=== PATIENT | female | born 1945 | race Caucasian/White ===

== ENCOUNTER 2022-08-01 19:59 | Outpatient (CLI) | payer OTHER, SELFPAY | END 2022-08-01 20:00 | disposition home or self-care (01) | LOC: AMB 08-06 11:24 | PROVIDERS: Visit Provider Family Medicine | DX: R55 Syncope and collapse (principal); R42 Dizziness and giddiness | CPT/HCPCS: A0425; A0427 ==

== ENCOUNTER 2022-08-28 17:22 | Emergency (ER) | payer OTHER, SELFPAY ==
[2022-08-28 17:31] VITALS: BP 180/88; PULSE 60; RESP 18; TEMP 36.4; O2SAT 97; BMI 31.4
--- NOTE | 2022-08-29 14:40 | ED.NURSE ---
chart was accessed due to royce wanting to know if she should be on an antibiotic. antibiotic ointment was all that dr ghosh had ordered. she will watch for signs of infection.
--- NOTE | 2022-08-30 17:12 | ED_ITS ---
HPI - General Adult General Chief complaint: Laceration/Wound Stated complaint: cut left pinky finger Time Seen by Provider: 08/28/22 18:23 History of Present Illness HPI narrative: Patient lacerated 5th left digit with a refrigeration installer at work. Is on coumadin. 77-year-old woman presenting to the emergency department after lacerating her left pinky on a refrigeration installer at work. She could not get the bleeding to stop though it has been controlled. Wanting to go back to work but family is persuaded her to be evaluated. She is not complaining of any pain. Is anticoagulated with Coumadin for paroxysmal atrial fibrillation. Related Data Home Medications Medication Instructions Recorded Confirmed atorvastatin 10 mg tablet 10 mg PO DAILY 08/01/22 08/01/22 furosemide 20 mg tablet 20 mg PO DAILY 08/01/22 08/01/22 gabapentin 100 mg capsule 100 mg PO TID PRN 08/01/22 08/02/22 lisinopril 40 mg tablet 40 mg PO DAILY 08/01/22 08/01/22 warfarin 5 mg tablet 5 mg PO DAILY 08/01/22 08/01/22 Previous Rx's Medication Instructions Recorded carvedilol 6.25 mg tablet 6.25 mg PO BID #15 tabs 08/02/22 cephalexin 500 mg capsule 500 mg PO BID 3 days #6 caps 08/02/22 cephalexin 500 mg capsule 500 mg PO TID #15 caps 08/30/22 Allergies Allergy/AdvReac Type Severity Reaction Status Date / Time codeine Allergy Verified 08/01/22 22:20 Review of Systems Status of ROS: Reports: 6 or more systems reviewed and unremarkable except as noted in History and below [facility] Medical History Lumbar radiculopathy ?M54.16 - Radiculopathy, lumbar region (ICD-10) Migraine ?G43.909 - Migraine, unspecified, not intractable, without status migrainosus (ICD-10) Paroxysmal atrial fibrillation ?I48.0 - Paroxysmal atrial fibrillation (ICD-10) Hypertension ?I10 - Essential (primary) hypertension (ICD-10) Chronic kidney disease, stage 3 ?N18.30 - Chronic kidney disease, stage 3 unspecified (ICD-10) Heart failure ?I50.9 - Heart failure, unspecified (ICD-10) Altered mental status ?R41.82 - Altered mental status, unspecified (ICD-10) Surgical History History of appendectomy ?Z90.49 - Acquired absence of other specified parts of digestive tract (ICD- 10) History of hysterectomy ?Z90.710 - Acquired absence of both cervix and uterus (ICD-10) History of tonsillectomy ?Z90.89 - Acquired absence of other organs (ICD-10) Family History Mother Diabetes Cardiovascular disease Brother Dementia Father Abdominal aortic aneurysm Social History Narrative: Patient lives at the [facility] in [place]. She is in an independent apartment. Her lives there and is in assisted living due to a remote history of stroke. She reports her independent living has been going well for her. She does not smoke. She does not drink alcohol. She does not use recreational drugs. She does tell me that she rubs CBD oil on her feet. Her son Modesto and her daughter have your are healthcare power of unhairing machine operator. Her code status is DNR. She goes to [facility] in [place] for primary care. 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 Smoking Status: Never smoker Do you use any of these nicotine containing products: None Second hand tobacco smoke exposure: No How often do you have a drink containing alcohol: never How often do you have six or more drinks on one occasion: Never AUDIT-C Alcohol total score: 0 Non-prescribed substance use: denies use service: No Exam Narrative: Exam Narrative: Is calm. Making jokes. Removing bloody towel from the left 5th finger I see a degloving essentially of the ulnar side skin of the finger nearly the entirety of the finger beginning at the ulnar nail edge. The skin is folded back up proximally. Attached proximally. It is through the dermis exposing the subcutaneous tissues but not any joint capsules or tendons. She has full strength and movement of her finger. Const: Documenting provider has reviewed patient's vital signs: yes Course Vital Signs Vital signs: Initial Vital Signs Temperature 97.6 F 08/28/22 17:31 Temperature Source Temporal Artery Scan 08/28/22 17:31 Pulse Rate 60 08/28/22 17:31 Pulse Rhythm Regular 08/28/22 17:31 Respiratory Rate 18 08/28/22 17:31 Blood Pressure 180/88 H 08/28/22 17:31 Blood Pressure Mean 118 H 08/28/22 17:31 Pulse Oximetry 97 08/28/22 17:31 Oxygen Delivery Method Room Air 08/28/22 17:31 Vital Signs Temperature 97.6 F 08/28/22 17:31 Pulse Rate 60 08/28/22 17:31 Respiratory Rate 18 08/28/22 17:31 Blood Pressure 180/88 H 08/28/22 17:31 Pulse Oximetry 97 08/28/22 17:31 Oxygen Delivery Method Room Air 08/28/22 17:31 Temperature 97.6 F 08/28/22 17:31 Pulse Rate 60 08/28/22 17:31 Respiratory Rate 18 08/28/22 17:31 Blood Pressure 180/88 H 08/28/22 17:31 Pulse Oximetry 97 08/28/22 17:31 Oxygen Delivery Method Room Air 08/28/22 17:31 Medical Decision Making MDM Narrative Medical decision making narrative: Injected with lidocaine in a digital block. Excellent anesthesia achieved. Cleansed with Hibiclens and sterile water. There is some pallor to the skin flap. Very well perfused though is the finger. Had to place a tourniquet for field control. Tacked with 6-0 Ethilon interrupted sutures. I would estimate the tourniquet was up for about 20 minutes. Oozing a little bit distally. Placed antibiotic ointment Telfa and Suleiman gauze. Placed in a splint as well. I am concerned about viability of this long flap of skin. Will need close follow-up with [facility]. Hopefully not plastics involvement. Will also initiate prophylactic antibiotic. See patient discharge plan. Discharge Plan Discharge Clinical Impression: Finger laceration Patient Disposition: Home, Self-Care Condition: Improved Additional Instructions: Ibuprofen, acetaminophen, elevation for comfort. I would anticipate this sutures coming out between 8 in 10 days. I would like you to apply antibiotic ointment for 5 - 6 days and then change to a dry dressing. It is okay to get your finger wet but I would avoid soaking while the sutures are in. Please call on Ronnie morning to the wound clinic at [phone]. I would like them to follow this. You can change the dressing late in the day tomorrow. Watch for spreading redness after 2 days, increasing heat, swelling, marked increase in pain, purulent drainage. Wear the splint at least over this next week for protection. Five days of cephalexin Prescriptions: New cephalexin 500 mg capsule 500 mg PO TID Qty: 15 0RF No Action atorvastatin 10 mg tablet 10 mg PO DAILY warfarin 5 mg tablet 5 mg PO DAILY furosemide 20 mg tablet 20 mg PO DAILY lisinopril 40 mg tablet 40 mg PO DAILY gabapentin 100 mg capsule 100 mg PO TID PRN cephalexin 500 mg Capsule 500 mg PO BID 3 Days Qty: 6 0RF carvedilol 6.25 mg Tablet 6.25 mg PO BID Qty: 15 0RF Follow Up/Referrals: Provider,Not a Local [Primary Care Provider] - Stand Alone Forms: [facility] Info Instructions
== END 2022-08-28 20:10 | disposition home or self-care (01) ==
PROVIDERS: Emergency Provider Family Medicine
DX: S61.217A Laceration without foreign body of left little finger without damage to nail, initial encounter (principal); W29.0XXA Contact with powered kitchen appliance, initial encounter
CPT/HCPCS: 12001; 99283; 99284

== ENCOUNTER 2022-09-04 07:53 | Outpatient (CLI) | payer OTHER, SELFPAY | END 2022-09-04 07:54 | disposition home or self-care (01) | PROVIDERS: Visit Provider Nurse Practitioner Family | DX: S61.216D Laceration without foreign body of right little finger without damage to nail, subsequent encounter (principal); Z79.01 Long term (current) use of anticoagulants | CPT/HCPCS: 99213; 99214 ==

== ENCOUNTER 2022-09-11 08:20 | Outpatient (CLI) | payer OTHER, SELFPAY | END 2022-09-11 08:21 | disposition home or self-care (01) | PROVIDERS: Visit Provider Nurse Practitioner Family | DX: S61.216D Laceration without foreign body of right little finger without damage to nail, subsequent encounter (principal); Z79.01 Long term (current) use of anticoagulants | CPT/HCPCS: 99212; 99214 ==

== ENCOUNTER 2022-09-18 10:08 | Outpatient (CLI) | payer OTHER, SELFPAY | END 2022-09-18 10:09 | disposition home or self-care (01) | LOC: WOUND 10:08 | PROVIDERS: Visit Provider Nurse Practitioner Family | DX: S61.217A Laceration without foreign body of left little finger without damage to nail, initial encounter (principal) | CPT/HCPCS: 97597 ==

== ENCOUNTER 2022-09-25 14:06 | Outpatient (CLI) | payer OTHER, SELFPAY | END 2022-09-25 14:07 | disposition home or self-care (01) | LOC: WOUND 14:07 | PROVIDERS: Visit Provider Nurse Practitioner Family | DX: S61.217A Laceration without foreign body of left little finger without damage to nail, initial encounter (principal); Z79.01 Long term (current) use of anticoagulants; W29.0XXA Contact with powered kitchen appliance, initial encounter | CPT/HCPCS: 99212 ==

== ENCOUNTER 2022-10-02 08:11 | Outpatient (CLI) | payer OTHER, SELFPAY | END 2022-10-02 08:12 | disposition home or self-care (01) | LOC: WOUND 08:11 | PROVIDERS: Visit Provider Nurse Practitioner Family | DX: S61.217A Laceration without foreign body of left little finger without damage to nail, initial encounter (principal); Z79.01 Long term (current) use of anticoagulants | CPT/HCPCS: 99212 ==

== ENCOUNTER 2023-10-23 01:26 | Emergency (ER) | payer OTHER, SELFPAY ==
[2023-10-23 01:31] VITALS: BP 180/91; PULSE 54; RESP 16; TEMP 36.2; O2SAT 97; BMI 32.8
--- NOTE | 2023-10-23 01:35 | ED_ITS ---
HPI - General Adult General Date Seen: 10/23/23 Chief complaint: Laceration/Wound Stated complaint: Lac R knuckle Time Seen by Provider: 10/23/23 01:35 History of Present Illness HPI narrative: 78-year-old female with history of paroxysmal AFib on warfarin, hypertension who presents to the ER today with a work-related laceration affecting the radial side of the dorsum of her right hand index finger metacarpal phalangeal joint. 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 She suffered a oval shaped laceration that almost completely avulse a 1 x 1.5 cm oval shaped flap of skin off the top of her knuckle. She initially tried to manage the wound herself by applying pressure and then Band-Aids. However despite her efforts she had ongoing oozing from the wound and was experience a lot of throbbing pain so was forced to present here to the ER. She is on warfarin for stroke prophylaxis with AFib. Recent INR has been therapeutic at 2.3. Now that she is here in the ER the bleeding has finally slowed and stopped. She is not having any trouble flexing and extending her finger including the MCP joint. No numbness in her finger. No other injuries. She is up-to-date on tetanus. She is not diabetic or immunosuppressed. Related Data Home Medications ?Medication ?Instructions ?Recorded ?Confirmed atorvastatin 10 mg tablet 10 mg PO DAILY 08/01/22 08/01/22 furosemide 20 mg tablet 20 mg PO DAILY 08/01/22 08/01/22 gabapentin 100 mg capsule 100 mg PO TID PRN 08/01/22 08/02/22 lisinopril 40 mg tablet 40 mg PO DAILY 08/01/22 08/01/22 warfarin 5 mg tablet 5 mg PO DAILY 08/01/22 08/01/22 Previous Rx's ?Medication ?Instructions ?Recorded carvedilol 6.25 mg tablet 6.25 mg PO BID #15 tabs 08/02/22 cephalexin 500 mg capsule 500 mg PO BID 3 days #6 caps 08/02/22 cephalexin 500 mg capsule 500 mg PO TID #15 caps 08/30/22 Allergies Allergy/AdvReac Type Severity Reaction Status Date / Time codeine Allergy Verified 08/01/22 22:20 [facility] Medical History Lumbar radiculopathy ?M54.16 - Radiculopathy, lumbar region (ICD-10) Migraine ?G43.909 - Migraine, unspecified, not intractable, without status migrainosus (ICD-10) Paroxysmal atrial fibrillation ?I48.0 - Paroxysmal atrial fibrillation (ICD-10) Hypertension ?I10 - Essential (primary) hypertension (ICD-10) Chronic kidney disease, stage 3 ?N18.30 - Chronic kidney disease, stage 3 unspecified (ICD-10) Heart failure ?I50.9 - Heart failure, unspecified (ICD-10) Altered mental status ?R41.82 - Altered mental status, unspecified (ICD-10) Surgical History History of appendectomy ?Z90.49 - Acquired absence of other specified parts of digestive tract (ICD- 10) History of hysterectomy ?Z90.710 - Acquired absence of both cervix and uterus (ICD-10) History of tonsillectomy ?Z90.89 - Acquired absence of other organs (ICD-10) Family History Mother Diabetes Cardiovascular disease Brother Dementia Father Abdominal aortic aneurysm Social History Narrative: Patient lives at the [facility] in [place]. She is in an independent apartment. Her lives there and is in assisted living due to a remote history of stroke. She reports her independent living has been going well for her. She does not smoke. She does not drink alcohol. She does not use recreational drugs. She does tell me that she rubs CBD oil on her feet. Her son Modesto and her daughter have your are healthcare power of state's attorney. Her code status is DNR. She goes to [facility] in [place] for primary care. 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 Smoking Status: Never smoker Do you use any of these nicotine containing products: None Second hand tobacco smoke exposure: No How often do you have a drink containing alcohol: never How often do you have six or more drinks on one occasion: Never AUDIT-C Alcohol total score: 0 Non-prescribed substance use: denies use service: No Exam Narrative: Exam Narrative: Constitutional: Appears well-developed and well-nourished. Active. Non-toxic appearing. Very pleasant and polite. HENT: Head: Atraumatic. No signs of injury. Nose: No nasal discharge. Mouth/Throat: Mucous membranes are moist. Pharynx is normal. Tonsils symmetric. Uvula midline. Airway patent. Eyes: Conjunctivae normal and EOM are normal. Pupils are equal, round, and reactive to light. Right eye exhibits no discharge. Left eye exhibits no discharge. No icterus. Neck: Normal range of motion. Neck supple. No adenopathy. No stridor. Cardiovascular: Normal rate and regular rhythm. No murmur heard. No murmurs, rubs, or gallops. Normal radial pulse. Brisk capillary refill in her finger. No pulsatile bleeding. Pulmonary/Chest: Effort normal. No stridor. No respiratory distress. No wheezes.No rhonchi. No rales. Musculoskeletal: Normal except for her right hand index finger MCP joint where there is a laceration. -normal range of motion. No edema. No tenderness. No deformity. Right upper extremity: Normal except for her hand. On the dorsum of the right MCP joint of the index finger, on the radial side there is a laceration that creates a almost completely avulse flap of tissue. This is an oval shape laceration. It measures 1.5 x 1 cm. There is a small amount of venous oozing but no arterial bleeding. On the proximal end of the flap of skin there is a macerated maldonado looking piece that measures approximately 3 by 6 mm. It is devascularized and nonviable. The remainder of the flap actually looks fairly pink. On the distal/radial side of the flap there is a small dog ear to flap of skin, but it to looks pink and well vascularized. She has intact flexion and extension of the MCP, PIP, DI P joints. We applied a blood pressure cuff on her forearm to obtain a bloodless field. We lifted the flap to inspect the wound in a bloodless field. I do not see any evidence that the laceration violates the joint space or the extensor tendon. No foreign body. Neurological: Alert. Normal strength. No cranial nerve deficit or sensory deficit. Coordination normal. GCS eye subscore is 4. GCS verbal subscore is 5. GCS motor subscore is 6. Skin: Skin is warm. No rash noted. Const: Vital Signs, click to edit/add: Vital Signs - 24 hr 10/23/23 01:31 Temperature 97.2 F L Pulse Rate [Right Pulse Oximeter] 54 L Respiratory Rate 16 Blood Pressure [Le ft Upper Arm] 180/91 H Pulse Oximetry 97 Oxygen Delivery Me thod Room Air Course Vital Signs Vital signs: Initial Vital Signs Temperature 97.2 F L 10/23/23 01:31 Temperature Source Temporal Artery Scan 10/23/23 01:31 Pulse Rate 54 L 10/23/23 01:31 Pulse Rhythm Regular 10/23/23 01:31 Respiratory Rate 16 10/23/23 01:31 Blood Pressure 180/91 H 10/23/23 01:31 Blood Pressure Mean 120 H 10/23/23 01:31 Blood Pressure Position Sitting 10/23/23 01:31 Pulse Oximetry 97 10/23/23 01:31 Oxygen Delivery Method Room Air 10/23/23 01:31 Vital Signs Temperature 97.2 F L 10/23/23 01:31 Pulse Rate 54 L 10/23/23 01:31 Respiratory Rate 16 10/23/23 01:31 Blood Pressure 180/91 H 10/23/23 01:31 Pulse Oximetry 97 10/23/23 01:31 Oxygen Delivery Method Room Air 10/23/23 01:31 Temperature 97.2 F L 10/23/23 01:31 Pulse Rate 54 L 10/23/23 01:31 Respiratory Rate 16 10/23/23 01:31 Blood Pressure 180/91 H 10/23/23 01:31 Pulse Oximetry 97 10/23/23 01:31 Oxygen Delivery Method Room Air 10/23/23 01:31 Medical Decision Making MDM Narrative Medical decision making narrative: Findings and exam are consistent with an complex oval-shaped laceration leaving a flap of skin on the dorsum of her right hand index finger MCP joint. She did have excess bleeding prior to arrival because she is anticoagulated on warfarin but fortunately bleeding was well controlled here in the ER. Most of the flap appears to be pink and well vascularized but part of the flap was macerated by the oracle data warehouse developer and devascularized. I did debride a small bit of the devascularized skin. We were able to tack the flap down into its anatomic position. The majority of the wound bed is covered by the flap, but in the absence of the destroyed/devascularized skin there is a small segment which will have to heal by secondary intention. There is no evidence at this time to suggest any associated fracture or foreign body. There is no evidence to suggest tendon or arterial injury and patient is neurologically in tact. The patient is to follow up for suture removal as instructed in 10 days. Indications to seek urgent reevaluation and signs of infection (including but not limited to increasing pain, redness, swelling, fevers, and drainage) were reviewed. Tetanus is up-to-date. This is a clean and non-contaminated wound in which prophylactic antibiotics are not indicated. Patient will avoid activities that put flexion on that joint because flexion will put pressure on the wound edges good break the stitches or pull the flap loose. Precautions for recheck and ER return for carefully reviewed. Questions answered. An understanding of the discharge instructions and need for follow up were verbally confirmed. Discharge Plan Discharge Clinical Impression: Finger laceration Patient Disposition: Home, Self-Care Condition: Stable Instructions: Finger Laceration (ED) Additional Instructions: As we discussed, please watch the laceration carefully for any signs of infection-redness, swelling, pus draining from the wound. If you have any sign of infection, any uncontrolled bleeding, or any concerns, please come back to the ER or see your doctor right away. To care for the wound, keep our antibiotic ointment and dressing on tonight and tomorrow. It is okay to take down the dressing on Wednesday morning. If the wound is dirty you can wash very gently with warm water. After the wound is clean, dry it gently or let it air dry. Then reapply antibiotic ointment and another dressing. Clean the wound gently once per day after that. Keep the wound covered with dressings every day so you avoid bumping it, contaminating it, and can protected. Avoid any activities that require you to forcefully been your finger or make a fist because bending her finger will stretch the wound edges and control the stitches loose and break the flap loose. Please follow-up with your regular doctor for suture removal in 10 days. If you have any concerns that the flap is looking dusky or pale, return to the ER right away. Prescriptions: No Action atorvastatin 10 mg tablet 10 mg PO DAILY warfarin 5 mg tablet 5 mg PO DAILY furosemide 20 mg tablet 20 mg PO DAILY lisinopril 40 mg tablet 40 mg PO DAILY gabapentin 100 mg capsule 100 mg PO TID PRN cephalexin 500 mg Capsule 500 mg PO BID 3 Days Qty: 6 0RF carvedilol 6.25 mg Tablet 6.25 mg PO BID Qty: 15 0RF cephalexin 500 mg capsule 500 mg PO TID Qty: 15 0RF Follow Up/Referrals: Candelaria,He Provider [Staff Physician] - Stand Alone Forms: [facility] Info Instructions Procedures Laceration Right hand index finger dorsal MCP joint laceration with flap of skin: Pre procedure diagnosis: Right hand index finger MCP joint laceration Verification/time out: correct patient and correct site Site: hand Side (If applicable): right Size (cm): 4 (The lacerations approximately 4 cm in length foot is in an oval shape and creates an oval-shaped he avulsed flap of tissue.) Description: linear Depth: simple, single layer Local Anesthetic: bupivacaine 0.25% Amount of anesthesia used (mL): 5 Pre-repair: wound explored and deep structures intact (There is a devascularized for bit of skin on the proximal end of the flap which we removed. The remainder of the flap appears to be pink and well vascularized. It was sutured into its anatomic position using 6 simple interrupted 5 O Ethilon sutures.) Skin layer closed with: nylon Size (cm): 5-0 Number of sutures: 6 Technique: simple, interrupted
--- NOTE | 2023-10-23 02:56 | ED.NURSE ---
Pt wound cleaned. Bacitracin applied, bandaged and splinted. Pt given instructions on wound care, work note and workman comp sheet at discharge.
== END 2023-10-23 02:58 | disposition home or self-care (01) ==
PROVIDERS: Emergency Provider Emergency Medicine
DX: S61.210A Laceration without foreign body of right index finger without damage to nail, initial encounter (principal); W26.0XXA Contact with knife, initial encounter
CPT/HCPCS: 12002; 99282; 99283

== ENCOUNTER 2023-12-01 12:52 | Outpatient (CLI) | payer OTHER, SELFPAY ==
--- OUTSIDE RECORDS SUMMARY | 2023-12-15 13:15 | XMS_ITS | Encounter Summary ---
Author Organization [facility] Address [address] [place] [address] Care Team Providers Care Assistant Professor Of Life Sciences Name Role Phone Patrick Erickson D.O. Primary Care Provider +1- [phone] Reason for Visit * Reason Onset Date Comments Anticoagulation 12/15/2023 DOAC Encounter Details Date Type Department Care Team (Latest Contact Info) Description 12/15/2023 Clinical Communication Department of Anticoagulation in [place], [place] [address] [place] [address] Alea Eaton R.N. [address] [place] [phone] Anticoagulation (DOAC) Social History Tobacco Use Types Packs/Day Years Used Date Smoking Tobacco: Never Smokeless Tobacco: Never Alcohol Use Standard Drinks/Week Comments No 0 (1 standard drink = 0.6 oz pur e alcohol) [facility] Utilities Answer Date Recorded In the past 12 months has e [employer], gas, oil, or water [employer] threatened to shut off services in your [...] your living situation today? I have a [facility] place to live 07/01/2023 Education [...] encounter Miscellaneous Notes * Telephone Encounter - Alea Eaton R.N. - 12/15/2023 9:45 AM CDT Patient calling to report she is planning to transition to Eliquis. She reports her provider will be issuing the script after her blood work today. Advised patient to keep current warfarin plan and to contact Anticoag when she picks up Eliquis for further plan. Patient is agreeable and declines further questions or concerns at this time. documented in this encounter Plan of Treatment Upcoming Encounters Date Type Department Care Team (Latest Contact Info) Description 12/15/2023 4:50 PM CDT Appointment Department of Laboratory Medicine in [place], [place] [address] [place] [address] Patrick Erickson D.O. [address] [phone] 12/17/2023 3:50 PM CDT Appointment Department of Laboratory Medicine in [place], [place] [address] [place] [address] Patrick Erickson D.O. [address] [phone] 12/17/2023 4:20 PM CDT Anticoagulation Visit Department of Anticoagulation in [place], [place] [address] [place] [address] Soheila Zapata P.A.-C., M.S. [address] [address] 12/24/2023 10:10 AM CDT Appointment Department of Laboratory Medicine in [address] [phone] Patrick Erickson D.O. [address] [place] [phone] 12/28/2023 1:00 PM CDT Office Visit Department of Internal Medicine in [place], [place] [address] [place] [phone] Patrick Erickson D.O. 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 [address] [phone] PCP - General Internal Medicine 08/12/22 documented as of this encounter
--- OUTSIDE RECORDS SUMMARY | 2023-12-15 13:15 | XMS_ITS | Encounter Summary ---
Author Organization [facility] Address [address] [place] [address] Care Team Providers Care Terminal Computer Operator Name Role Phone Patrick Erickson D.O. Primary Care Provider +1- [phone] Encounter Details Date Type Department Care Team (Latest Contact Info) Description 12/13/2023 4:15 PM CDT - 12/13/2023 11:59 PM CDT Hospital Encounter Department of Laboratory Medicine in [place], [place] [address] [place] [phone] Patrick Erickson D.O. [address] [place] [phone] Atrial Fibrillation Paroxysmal (HCC) Discharge Disposition: Home or Self Care Social History Tobacco Use Types Packs/Day Years Used Date Smoking Tobacco: Never Smokeless Tobacco: Never Alcohol Use Standard Drinks/Week Comments No 0 (1 standard drink = 0.6 oz pur e alcohol) [facility] Utilities Answer Date Recorded In the [...] How often do you attend chur or pentecostalism services? More than 4 times [...] Answer Date Recorded PHQ-2 Score 0 04/27/2023 [facility] of Occupat ional Health - [...] Sig Dispensed Refills Start Date End Date apixaban (Eliquis) 5 mg tablet Take 1 tablet (5 mg total) by mouth 2 (two) times a day. 200 tablet 3 12/10/2023 atorvastatin (LIPITOR) 10 mg tablet take 1 [...] tablet every day 90 tablet 3 04/21/2023 vtertet-cxlq-habba-oreg- capryl 100 mg-150 mg- 50 mg-150 mg capsule Take by mouth 3 (three) times a day. documented as of this encounter Plan of Treatment Upcoming Encounters Date Type Department Care Team (Latest Contact Info) Description 12/15/2023 4:50 PM CDT Appointment Department of Laboratory Medicine in [place], [place] [address] [place] [phone] Patrick Erickson D.O. [address] [place] [phone] 12/17/2023 3:50 PM CDT Appointment Department of Laboratory Medicine in [place], [place] [address] [place] [phone] Patrick Erickson D.O. [address] [place] [address] 12/17/2023 4:20 PM CDT Anticoagulation Visit Department of Anticoagulation in [place], [place] [address] [place] [address] Soheila Zapata P.A.-C., M.S. [address] [place] [phone] 12/24/2023 10:10 AM CDT Appointment Department of Laboratory Medicine in [place], [place] [address] [place] [phone] Patrick Erickson D.O. [address] [place] [address] 12/28/2023 1:00 PM CDT Office Visit Department of Internal Medicine in [place], [place] [address] [place] [address] Patrick Erickson D.O. [address] [place] [address] documented as of this encounter Procedures Procedure Name Priority Date/Time Associated Diagnosis Comments INR REFLEX, POCT, B Routine 12/13/2023 4:21 PM CDT Atrial Fibrillation Paroxysmal (HCC) documented in this encounter Results * INR Reflex, POCT, Blood (12/13/2023 4:21 PM CDT) INR Reflex, POCT, B 2.3 12/13/2023 4:20 PM CDT [id number] Comment: ----ADDITIONAL INFORMATION---- Standard intensity warfarin therapeutic range: 2.0 to 3.0 ?? High intensity warfarin therapeutic range: 2.5 to 3.5 Blood (Blood, Capillary) 12/13/2023 4:21 PM CDT 12/13/2023 4:21 PM CDT Patrick Erickson D.O. LAB POCT ORDERABLE S - DEVICE 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 [address], [place] [address] PCP - General Internal Medicine 08/12/22 documented as of this encounter
--- OUTSIDE RECORDS SUMMARY | 2023-12-15 13:15 | XMS_ITS | Encounter Summary ---
Author Organization [facility] Address [address] [place] [address] Care Team Providers Care Environmental Advisor Name Role Phone Patrick Erickson D.O. Primary Care Provider +1- [phone] Reason for Visit * Reason Onset Date Comments Anticoagulation 12/06/2023 INR - ordered by provider Encounter Details Date Type Department Care Team (Latest Contact Info) Description 12/06/2023 Clinical Communication Department of Anticoagulation in [place], [place] [address] [place] [address] Isa Callahan, R.N. Anticoagulation (INR - ordered by provider ) Social History Tobacco Use Types Packs/Day Years Used Date Smoking Tobacco: Never Smokeless Tobacco: Never Alcohol Use Standard Drinks/Week Comments No 0 (1 standard drink = 0.6 oz pur e alcohol) [facility] Utilities Answer Date Recorded In the past 12 months has e [employer], gas, oil, or water [employer] threatened to shut off services in your [...] How often do you attend chur or advent services? More than 4 times per year 05/30/2022 Do you belong to any clubs o r organizations such as confucianism groups, unions, fraternal or athletic groups, or [...] Answer Date Recorded PHQ-2 Score 0 04/27/2023 [facility] of Occupat ional Health - Occupational [...] your living situation today? I have a [facility] place to live 07/01/2023 Education Answer Date [...] Appointment Department of Laboratory Medicine in [address] [phone] Patrick Erickson D.O. [address] [place] [phone] 12/17/2023 3:50 PM CDT Appointment Department of Laboratory Medicine in [address] [phone] Patrick Erickson D.O. [address] [place] [phone] 12/17/2023 4:20 PM CDT Anticoagulation Visit Department of Anticoagulation in [place], [place] [address] [place] [address] Soheila Zapata P.A.-C., M.S. [address] [place] [phone] 12/24/2023 10:10 AM CDT Appointment Department of Laboratory Medicine in [address] [phone] Patrick Erickson D.O. [address] [phone] 12/28/2023 1:00 PM CDT Office Visit Department of Internal Medicine in [place], [place] [address] [place] [phone] Patrick Erickson D.O. 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 [address] [place] [phone] PCP - General Internal Medicine 08/12/22 documented as of this encounter
--- OUTSIDE RECORDS SUMMARY | 2023-12-15 13:15 | XMS_ITS | Referral Summary ---
Author Organization [facility] Address [address] [place] [id number] Care Team Providers Care Customer Operations Intern Name Role Phone Patrick Erickson D.O. Primary Care Provider [phone] Source Comments Patient records contain information from all sites at [facility]. For routine questions regarding patient records, call [phone] during business hours, M-F 8:00 AM - 5:00 PM Central Time. Record requests for emergency care only can be directed to [phone] at any time.[facility] Encounters Date Type Department Care Team Description 12/15/2023 Clinical Communication Department of Anticoagulation in [place], [place] [address] [place] [phone] Alea Eaton R.N. Anticoagulation (DOAC) 12/14/2023 11:30 AM CDT Anticoagulation Visit Department of Anticoagulation in [place], [place] [address] [place] [phone] Soheila Zapata P.A.-C., M.S. 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 Atrial Fibrillation Paroxysmal (HCC) Discharge Disposition: Home or Self Care 12/10/2023 Refill Department of Internal Medicine in [address] [phone] Patrick Erickson D.O. Med Refill 12/06/2023 Clinical Communication Department of Anticoagulation in [address] [phone] Isa Callahan, RAziza Anticoagulation (INR - ordered by provider ) 12/06/2023 Clinical Communication Department of Cardiovascular Diseases in [address] [phone] Roberto Dumont APRN, C.NHowieP. Med Question 12/03/2023 2:50 PM CDT - 12/03/2023 11:59 PM CDT Hospital Encounter Department of Laboratory Medicine in [place] [address] [place] [address] Patrick Erickson D.O. 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 Or Unspecified Chronic Kidney Disease (HCC); Hyperlipidemia On Treatment; Atrial Fibrillation Paroxysmal (HCC); Monitoring For Therapeutic Drug Therapy; Care Home (Current) Anticoagulant Treatment Discharge Disposition: Home or Self Care 12/03/2023 3:50 PM CDT Anticoagulation Visit Department of Anticoagulation in [address] [phone] Soheila Zapata P.A.-C., M.S. Atrial Fibrillation Paroxysmal (HCC) (Primary Dx); 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 Or Unspecified Chronic Kidney Disease (HCC); Hyperlipidemia On Treatment; Monitoring For Therapeutic Drug Therapy; Care Home (Current) Anticoagulant Treatment 12/01/2023 Clinical Communication Department of Orthopedic Surgery in [address] [phone] Sher Bauman M.D. Arm Injury; Post Ed Visit Follow-up 11/29/2023 Clinical Communication Department of Family [facility], [address] in [place], [place] [address] [place] [address] Butch Sanchez R.N. COVID Treatment Review 11/27/2023 Nurse Triage Department of Internal Medicine in [place], [place] [address] [place] [address] Kari Olivarez R.N. Cough 11/22/2023 4:00 PM CDT Anticoagulation Visit Department of Anticoagulation in [place], [place] [address] [place] [address] Soheila Zapata, P.Genie.-Ashish., M.S. 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 Or Unspecified Chronic Kidney Disease (HCC) (Primary Dx); Hyperlipidemia On Treatment; Atrial Fibrillation Paroxysmal (HCC); Monitoring For Therapeutic Drug Therapy; Care Home (Current) Anticoagulant Treatment 11/22/2023 3:20 PM CDT - 11/22/2023 11:59 PM CDT Hospital Encounter Department of Laboratory Medicine in [address] [phone] Patrick Erickson D.O. 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 Atrial Fibrillation Paroxysmal (HCC); Monitoring For Therapeutic Drug Therapy; Care Home (Current) Anticoagulant Treatment Discharge Disposition: Home or Self Care 11/12/2023 12:30 PM CDT Anticoagulation Visit Department of Anticoagulation in [place], [place] [address] [place] [address] Soheila Zapata P.A.-C., M.S. 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 Or Unspecified Chronic Kidney Disease (HCC) (Primary Dx); Hyperlipidemia On Treatment; Atrial Fibrillation Paroxysmal (HCC); Monitoring For Therapeutic Drug Therapy; Care Home (Current) Anticoagulant Treatment 11/09/2023 Orders Only [facility] PCP [facility] Patrick Erickson D.O. 11/02/2023 Clinical Communication Department of Anticoagulation in [address] [phone] Cullen Guillen R.N. Anticoagulation ([facility] Update-New PCP) 11/02/2023 3:30 PM CDT Anticoagulation Visit Department of Anticoagulation in [address] [phone] Soheila Zapata P.A.-C., M.S. 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 Or Unspecified Chronic Kidney Disease (HCC) (Primary Dx); Hyperlipidemia On Treatment; Atrial Fibrillation Paroxysmal (HCC); Monitoring For Therapeutic Drug Therapy; Care Home (Current) Anticoagulant Treatment 10/15/2023 2:50 PM CDT - 10/15/2023 11:59 PM CDT Hospital Encounter Department of Laboratory Medicine in [address] [phone] Patrick Erickson D.O. 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 Atrial Fibrillation Paroxysmal (HCC) Discharge Disposition: Home or Self Care 10/04/2023 3:50 PM CDT Anticoagulation Visit Department of Anticoagulation in [place], [place] [address] [place] [phone] Soheila Zapata P.A.-C., M.S. 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 Anticoagulation (Out of range INR.) 10/01/2023 2:30 PM CDT - 10/01/2023 11:59 PM CDT Hospital Encounter Department of Laboratory Medicine in [address] [phone] Patrick Erickson D.O. 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 Hypertensive Heart With Heart Failure And Chronic Kidney Disease (CKD) Stage 3a Glomerular Filtration Rate (GFR) 45 To 59 (HCC); Hyperlipidemia On Treatment; Atrial Fibrillation Paroxysmal (HCC); Monitoring For Therapeutic Drug Therapy; Care Home (Current) Anticoagulant Treatment Discharge Disposition: Home or Self Care 09/14/2023 1:30 PM CDT Anticoagulation Visit Department of Anticoagulation in [place], [place] [address] [place] [phone] Soheila Zapata P.A.-C., M.S. 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 Hypertensive Heart With Heart Failure And Chronic Kidney Disease (CKD) Stage 3a Glomerular Filtration Rate (GFR) 45 To 59 (HCC); Hyperlipidemia On Treatment; Atrial Fibrillation Paroxysmal (HCC); Monitoring For Therapeutic Drug Therapy; Care Home (Current) Anticoagulant Treatment Discharge Disposition: Home or [...] muscle spasms. 30 tablet 06/27/19 22 Active acqtvks-sxvo-eirf r-nrbp-swcfvy 100 mg-150 mg- 50 mg-150 mg capsule [...] (two) times a day. 200 tablet 3 12/10/19 24 Active ibuprofen (ADVIL,MOTRIN) 200 mg tablet Take by mouth every 6 (six) hours as needed. 08/19/19 23 024 Discontinued warfarin (JANTOVEN) 5 mg tabletIndications :Hypertensive Heart With Heart Failure And Chronic Kidney Disease (CKD) Stage 3a Glomerular Filtration Rate (GFR) 45 To 59 (HCC),Hyperlipide homar On Treatment,Atrial Fibrillation Paroxysmal (HCC),Monitoring For Therapeutic Drug Therapy,Care Home (Current) Anticoagulant Treatment Please take as directed by your Anticoagulation Clinic. 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 120 tablet 3 08/24/19 24 024 Discontinued apixaban (Eliquis) 5 mg tablet Take 1 tablet (5 mg total) by mouth 2 (two) times a day. 180 tablet 3 12/06/19 24 024 Discontinued(Re order) Active Problems Problem Noted Date Diagnosed Date Atrial Fibrillation Paroxysmal 01/06/2022 Monitoring For Therapeutic Drug Therapy 01/07/20 22 Care Home (Current) Anticoagulant Treatment 03/2021 Radiculopathy Lumbar Fifth [...] drink = 0.6 oz pur e alcohol) [facility] Utilities Answer Date Recorded In the [...] often do you attend chur ch or church services? More than 4 times per year [...] Answer Date Recorded PHQ-2 Score 0 04/27/2023 [place] [employer] - Occupational Stress [...] your living situation today? 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 [address] [place] [phone] 12/17/2023 4:20 PM CDT Anticoagulation Visit Department of Anticoagulation in [place], [place] [address] [place] [address] Soheila Zapata P.A.-C., M.S. [address] [place] [address] 12/24/2023 10:10 AM CDT Appointment Department of Laboratory Medicine in [address] [place] [address] Patrick Erickson D.O. [address] [place] [address] 12/28/2023 1:00 PM CDT Office Visit Department of Internal Medicine in [place], [place] [address] [place] [address] Patrick Erickson D.O. 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) Anticoagulant Treatment EXTM HOME SARS CORONAVIRUS-2 [...] Drug Therapy Care Home (Current) Anticoagulant Treatment INR REFLEX, POCT, B Routine 11/12/2023 12:09 PM CDT Atrial Fibrillation Paroxysmal (HCC) Monitoring For Therapeutic Drug Therapy Care Home (Current) Anticoagulant Treatment INR REFLEX, POCT, B Routine 11/02/2023 2 :58 PM CDT 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 Or Unspecified Chronic Kidney Disease (HCC) Hyperlipidemia On Treatment Atrial Fibrillation Paroxysmal (HCC) Monitoring For Therapeutic Drug Therapy Care Home (Current) Anticoagulant Treatment INR REFLEX, POCT, B Routine 10/28/2023 3 :00 PM CDT 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 Or Unspecified Chronic Kidney Disease (HCC) Hyperlipidemia On Treatment Atrial Fibrillation Paroxysmal (HCC) Monitoring For Therapeutic Drug Therapy Associate 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) Anticoagulant Treatment INR REFLEX, POCT, B Routine 10/15/2023 3 :09 PM CDT 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 Or Unspecified Chronic Kidney Disease (HCC) Hyperlipidemia On Treatment Atrial Fibrillation Paroxysmal (HCC) Monitoring For Therapeutic Drug Therapy Associate 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) Anticoagulant Treatment INR REFLEX, POCT, B Routine 10/07/2023 2 :55 PM CDT Atrial Fibrillation Paroxysmal (HCC) INR REFLEX, POCT, B Routine 10/01/2023 3 :00 PM CDT Hypertensive Heart With Heart Failure And Chronic Kidney Disease (CKD) Stage 3a Glomerular Filtration Rate (GFR) 45 To 59 (HCC) Hyperlipidemia On Treatment Atrial Fibrillation Paroxysmal (HCC) Monitoring For Therapeutic Drug Therapy Associate 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) Anticoagulant Treatment INR REFLEX, POCT, B Routine 09/24/2023 3 :14 PM CDT Hypertensive Heart With Heart Failure And Chronic Kidney Disease (CKD) Stage 3a Glomerular Filtration Rate (GFR) 45 To 59 (HCC) Hyperlipidemia On Treatment Atrial Fibrillation Paroxysmal (HCC) Monitoring For Therapeutic Drug Therapy Care Home (Current) Anticoagulant Treatment PROTHROMBIN TIME (PT), P Routine 09/21/2023 12:41 PM CDT INR REFLEX, POCT, B Routine 09/21/2023 12:39 PM CDT Hypertensive Heart With Heart Failure And Chronic Kidney Disease (CKD) Stage 3a Glomerular Filtration Rate (GFR) 45 To 59 (HCC) Hyperlipidemia On Treatment Atrial Fibrillation Paroxysmal (HCC) Monitoring For Therapeutic Drug Therapy Associate 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) Anticoagulant Treatment INR REFLEX, POCT, B Routine 09/14/2023 1 :00 PM CDT Hypertensive Heart With Heart Failure And Chronic Kidney Disease (CKD) Stage 3a Glomerular Filtration Rate (GFR) 45 To 59 (HCC) Hyperlipidemia On Treatment Atrial Fibrillation Paroxysmal (HCC) Monitoring For Therapeutic Drug Therapy Associate 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) Anticoagulant Treatment BASIC METABOLIC PANEL, S/P [...] Recently Relevant to Health Maintenance Results * INR Reflex, POCT, Blood (12/13/2023 4:21 PM CDT) Only the most recent of12 resultswithin the time period is included. INR Reflex, POCT, B 2.3 12/13/2023 4:20 PM CDT [id number] Comment: ----ADDITIONAL INFORMATION---- Standard intensity warfarin therapeutic range: 2.0 to 3.0 ?? High intensity warfarin therapeutic range: 2.5 to 3.5 Blood (Blood, Capillary) 12/13/2023 4:21 PM CDT 12/13/2023 4:21 PM CDT Patrick Erickson D.O. LAB POCT ORDERABLE S - DEVICE [facility] [address] [place] [address], [facility] [id number] [facility] in [place] [address] [place] [address] * (ABNORMAL) Prothrombin Time (PT) (12/03/2023 3:01 [...] D.O. 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 LAB BLOOD ADD-ON [facility] [address] [place] [address], [facility] in [place] [address] [place] [address] * BI Breast Screening Bilateral with Tomosynthesis [...] Last Indicated COVID19 11/26/2023 11/26/2023 Care Teams Customer Operations Intern Relationship Specialty Start Date End Date Patrick Erickson D.O. [address] [place] [address] PCP - General Internal Medicine 08/12/22
--- OUTSIDE RECORDS SUMMARY | 2023-12-15 13:15 | XMS_ITS | Encounter Summary ---
Author Organization [facility] Address [address] [place] [address] Care Team Providers Care Dermatologist Name Role Phone Patrick Erickson D.O. Primary Care Provider [phone]- [phone] Reason for Visit * Reason Onset Date Comments Med Refill 12/10/2023 Encounter Details Date Type Department Care Team (Late st Contact Info) Description 12/10/2023 Refill Department of Internal Medicine in [place], [place] [address] [place] [phone] Patrick Erickson D.O. [address] [phone] Med Refill Social History Tobacco Use Types Packs/Day Years Used Date Smoking Tobacco: Never Smokeless Tobacco: Never Alcohol Use Standard Drinks/Week Comments No 0 (1 standard drink = 0.6 oz pur e alcohol) [facility] Utilities Answer Date Recorded In [...] often do you attend chur ch or anglican services? More than 4 times per year [...] Answer Date Recorded PHQ-2 Score 0 04/27/2023 [facility] - [...] your living situation today? I have a [facility] place to live 07/01/2023 Education Answer Date [...] Appointment Department of Laboratory Medicine in [address] [phone] Patrick Erickson D.O. [address] [place] [phone] 12/17/2023 3:50 PM CDT Appointment Department of Laboratory Medicine in [place], [place] [address] [place] [phone] Patrick Erickson D.O. [address] [phone] 12/17/2023 4:20 PM CDT Anticoagulation Visit Department of Anticoagulation in [place], [place] [address] [place] [address] Soheila Zapata P.A.-C., M.S. [address] [place] [phone] 12/24/2023 10:10 AM CDT Appointment Department of Laboratory Medicine in [place], [place] [address] [place] [phone] Patrick Erickson D.O. [address] [phone] 12/28/2023 1:00 PM CDT Office Visit Department of Internal Medicine in [place], [place] [address] [phone] Patrick Erickson D.O. [address] [phone] documented as of this encounter Visit Diagnoses Not on filedocumented in this encounter Additional Health Concerns Infection Onset Date Last Indicated Resolved Time COVID19 11/26/2023 11/26/2023 Assessment Noted Time PHQ-9 Depression Total Score: 9 02/23/20 23 7:41 PM ENGAGEMENT [facility] documented as of this encounter Care Teams Dermatologist Relationship Specialty Start Date End Date Patrick Erickson D.O. [address] [phone] PCP - General Internal Medicine 08/12/22 documented as of this encounter
--- OUTSIDE RECORDS SUMMARY | 2023-12-15 13:15 | XMS_ITS | Encounter Summary ---
Author Organization [facility] Address [address] [place] [address] Care Team Providers Care Assessment Clinician Name Role Phone Patrick Erickson D.O. Primary Care Provider +1- [phone] Reason for Visit * Outpatient (Routine) - Authorized Specialty Diagnoses / Procedures Referred By Prosper t Referred To Contact Anticoagulation Soheila Zapata P.A.-C., M.S. [address] [phone] [facility] Referral ID Status Reason Start Date Expiration Date V isits Requested Visits Authorized [id number] Authorized 01/07/2022 01/06/2025 300 300 Encounter Details Date Type Department Care Team (Latest Contact Info) Description 12/14/2023 11:30 AM CDT Anticoagulation Visit Department of Anticoagulation in [place], [place] [address] [place] [address] Soheila Zapata P.A.-C., M.S. [address] [phone] Hypertensive Heart And Chronic Kidney [...] drink = 0.6 oz pur e alcohol) [facility] Utilities Answer Date Recorded In the [...] Answer Date Recorded PHQ-2 Score 0 04/27/2023 [employer] [place] [facility] - Occupational Stress Questionnaire Answer Date [...] your living situation today? I have a [facility] place to live 07/01/2023 Education Answer [...] this encounter Patient Instructions * Patient Instructions* Alesha Gonzalez R.N. - 12/14/2023 11:30 AM CDT Your next INR will be 12/17/23. You will need to call the Anticoagulation Program at the time of your scheduled nurse visit or you can complete the Anticoagulation Pre-Visit Questionnaire and if no additional information is needed, your dosing can be provided via your Patient portal. To reschedule your appointment or for questions about your warfarin, please call Primary Care Anticoagulation Program at [phone] from 7:30 am to 4:30 pm. Wednesday-Wednesday [...] if you start any herbal or other [id number] product (check with your doctor, a nurse, or pharmacist). If you change your diet significantly. If you decide to stop or start using tobacco or alcohol. If you notice unusual bruising or bleeding. If you notice dark, tarry, or bright red stools or blood in your urine. If you have a painful and swollen calf. documented in this encounter Plan of Treatment Upcoming Encounters Date Type Department Care Team (Latest Contact Info) Description 12/15/2023 4:50 PM CDT Appointment Department of Laboratory Medicine in [place], [place] [address] [place] [address] Patrick Erickson D.O. [address] [phone] 12/17/2023 3:50 PM CDT Appointment Department of Laboratory Medicine in [place], [place] [address] [place] [address] Patrick Erickson D.O. [address] [phone] 12/17/2023 4:20 PM CDT Anticoagulation Visit Department of Anticoagulation in [place], [place] [address] [place] [address] Soheila Zapata P.A.-C., M.S. [address] [phone] 12/24/2023 10:10 AM CDT Appointment Department of Laboratory Medicine in [address] [phone] Patrick Erickson D.O. [address] [place] [phone] 12/28/2023 1:00 PM CDT Office Visit Department of Internal Medicine in [place], [place] [address] [place] [phone] Patrick Erickson D.O. 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 [address] [place] [phone] PCP - General Internal Medicine 08/12/22 documented as of this encounter
--- OUTSIDE RECORDS SUMMARY | 2023-12-15 13:15 | XMS_ITS | Continuity of Care Document ---
Author Organization [facility] Address [address] [place] [id number] Care Team Providers Care Bicycle Repairman Name Role Phone Patrick Erickson D.O. Primary Care Provider [phone] Source Comments Patient records contain information from all sites at [facility]. For routine questions regarding patient records, call [phone] during business hours, M-F 8:00 AM - 5:00 PM Central Time. Record requests for emergency care only can be directed to [phone] at any time.[facility] Encounters Date Type Department Care Team Description 12/15/2023 Clinical Communication Department of Anticoagulation in [place], [place] [address] [place] [phone] Alea [place] R.N. Anticoagulation (DOAC) 12/14/2023 11:30 AM CDT Anticoagulation Visit Department of Anticoagulation in [place], [place] [address] [place] [phone] Soheila Zapata P.A.-C., M.S. 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 Atrial Fibrillation Paroxysmal (HCC) Discharge Disposition: Home or Self Care 12/10/2023 Refill Department of Internal Medicine in [address] [address] Patrick Erickson D.O. Med Refill 12/06/2023 Clinical Communication Department of Anticoagulation in [address] [address] Isa Callahan, RAziza Anticoagulation (INR - ordered by provider ) 12/06/2023 Clinical Communication Department of Cardiovascular Diseases in [address] [address] Roberto Dumont APRN, C.NHowieP. Med Question 12/03/2023 2:50 PM CDT - 12/03/2023 11:59 PM CDT Hospital Encounter Department of Laboratory Medicine in [address] [phone] Patrick Erickson D.O. 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 Atrial Fibrillation Paroxysmal (HCC) (Primary Dx); 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 Or Unspecified Chronic Kidney Disease (HCC); Hyperlipidemia On Treatment; Monitoring For Therapeutic Drug Therapy; Care Home (Current) Anticoagulant Treatment 12/01/2023 Clinical Communication Department of Orthopedic Surgery in [address] [phone] Sher Bauman M.D. Arm Injury; Post Ed Visit Follow-up 11/29/2023 Clinical Communication Department of [facility], [address] in [place], [place] [address] [place] [address] [place] [address] Butch Sanchez R.N. COVID Treatment Review 11/27/2023 Nurse Triage Department of Internal Medicine in [place], [place] [address] [place] [address] Kari Olivarez R.N. Cough 11/22/2023 4:00 PM CDT Anticoagulation Visit Department of Anticoagulation in [place], [place] [address] [place] [address] Soheila Zapata P.A.-C., M.S. 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 Or Unspecified Chronic Kidney Disease (HCC) (Primary Dx); Hyperlipidemia On Treatment; Atrial Fibrillation Paroxysmal (HCC); Monitoring For Therapeutic Drug Therapy; Care Home (Current) Anticoagulant Treatment 11/22/2023 3:20 PM CDT - 11/22/2023 11:59 PM CDT Hospital Encounter Department of Laboratory Medicine in [address] [phone] Patrick Erickson D.O. 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 Or Unspecified Chronic Kidney Disease (HCC); Hyperlipidemia On Treatment; Atrial Fibrillation Paroxysmal (HCC); Monitoring For Therapeutic Drug Therapy; Clinical Provider Trainer (Current) Anticoagulant Treatment Discharge Disposition: Home or Self Care 11/12/2023 11:50 AM CDT - 11/12/2023 11:59 PM CDT Hospital Encounter Department of Laboratory Medicine in [address] [phone] Patrick Erickson D.O. Atrial Fibrillation Paroxysmal (HCC); Monitoring For Therapeutic Drug Therapy; Care Home (Current) Anticoagulant Treatment Discharge Disposition: Home or Self Care 11/12/2023 12:30 PM CDT Anticoagulation Visit Department of Anticoagulation in [place], [place] [address] [place] [address] Soheila Zapata P.A.-C., M.S. 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 Or Unspecified Chronic Kidney Disease (HCC) (Primary Dx); Hyperlipidemia On Treatment; Atrial Fibrillation Paroxysmal (HCC); Monitoring For Therapeutic Drug Therapy; Care Home (Current) Anticoagulant Treatment 11/09/2023 Orders Only [facility] PCP [facility] Patrick Erickson D.O. 11/02/2023 Clinical Communication Department of Anticoagulation in [address] [address] Cullen Guillen R.N. Anticoagulation ([facility] Update-New PCP) 11/02/2023 3:30 PM CDT Anticoagulation Visit Department of Anticoagulation in [address] [phone] Soheila Zapata P.A.-C., M.S. 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 Or Unspecified Chronic Kidney Disease (HCC); Hyperlipidemia On Treatment; Atrial Fibrillation Paroxysmal (HCC); Monitoring For Therapeutic Drug Therapy; Care Home (Current) Anticoagulant Treatment Discharge Disposition: Home or Self Care 10/28/2023 3:30 PM CDT Anticoagulation Visit Department of Anticoagulation in [address] [phone] Soheila Zapata P.A.-C., M.S. 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 Or Unspecified Chronic Kidney Disease (HCC) (Primary Dx); Hyperlipidemia On Treatment; Atrial Fibrillation Paroxysmal (HCC); Monitoring For Therapeutic Drug Therapy; Clinical Provider Trainer (Current) Anticoagulant Treatment 10/28/2023 2:50 PM CDT - 10/28/2023 11:59 PM CDT Hospital Encounter Department of Laboratory Medicine in [address] [address] Patrick Erickson D.O. 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 Or Unspecified Chronic Kidney Disease (HCC); Hyperlipidemia On Treatment; Atrial Fibrillation Paroxysmal (HCC); Monitoring For Therapeutic Drug Therapy; Clinical Provider Trainer (Current) Anticoagulant Treatment Discharge Disposition: Home or Self Care 10/19/2023 10:10 AM CDT Anticoagulation Visit Department of Anticoagulation in [address] [address] Soheila Zapata P.A.-C., M.S. 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 Or Unspecified Chronic Kidney Disease (HCC) (Primary Dx); Hyperlipidemia On Treatment; Atrial Fibrillation Paroxysmal (HCC); Monitoring For Therapeutic Drug Therapy; Care Home (Current) Anticoagulant Treatment 10/15/2023 2:50 PM CDT - 10/15/2023 11:59 PM CDT Hospital Encounter Department of Laboratory Medicine in [address] [phone] Patrick Erickson D.O. 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 Or Unspecified Chronic Kidney Disease (HCC); Hyperlipidemia On Treatment; Atrial Fibrillation Paroxysmal (HCC); Monitoring For Therapeutic Drug Therapy; Care Home (Current) Anticoagulant Treatment Discharge Disposition: Home or Self Care 10/08/2023 9:30 AM CDT Anticoagulation Visit Department of Anticoagulation in [address] [address] Soheila Zapata P.A.-C., M.S. 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 Or Unspecified Chronic Kidney Disease (HCC) (Primary Dx); Hyperlipidemia On Treatment; Atrial Fibrillation Paroxysmal (HCC); Monitoring For Therapeutic Drug Therapy; Clinical Provider Trainer (Current) Anticoagulant Treatment 10/07/2023 2:49 PM CDT - 10/07/2023 11:59 PM CDT Hospital Encounter Department of Laboratory Medicine in [address] [phone] Patrick Erickson D.O. Atrial Fibrillation Paroxysmal (HCC) Discharge Disposition: Home or Self Care 10/04/2023 3:50 PM CDT Anticoagulation Visit Department of Anticoagulation in [place], [place] [address] [place] [phone] Soheila Zapata P.A.-C., M.S. Atrial Fibrillation Paroxysmal (HCC) (Primary Dx); 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 Or Unspecified Chronic Kidney Disease (HCC); Hyperlipidemia On Treatment; Monitoring For Therapeutic Drug Therapy; Clinical Provider Trainer (Current) Anticoagulant Treatment 10/01/2023 Clinical Communication Department of Anticoagulation in [place], [place] [address] [place] [phone] La Mendoza R.N. Anticoagulation (Out of range INR.) 10/01/2023 2:30 PM CDT - 10/01/2023 11:59 PM CDT Hospital Encounter Department of Laboratory Medicine in [address] [address] Patrick Erickson D.O. Hypertensive Heart With Heart Failure And Chronic Kidney Disease (CKD) Stage 3a Glomerular Filtration Rate (GFR) 45 To 59 (HCC); Hyperlipidemia On Treatment; Atrial Fibrillation Paroxysmal (HCC); Monitoring For Therapeutic Drug Therapy; Care Home (Current) Anticoagulant Treatment Discharge Disposition: Home or Self Care 09/24/2023 3:30 PM CDT Anticoagulation Visit Department of Anticoagulation in [place], [place] [address] [place] [phone] Soheila Zapata P.A.-C., M.S. Hypertensive Heart With Heart Failure And Chronic Kidney Disease (CKD) Stage 3a Glomerular Filtration Rate (GFR) 45 To 59 (HCC) (Primary Dx); Hyperlipidemia On Treatment; Atrial Fibrillation Paroxysmal (HCC); Monitoring For Therapeutic Drug Therapy; Clinical Provider Trainer (Current) Anticoagulant Treatment 09/24/2023 2:50 PM CDT - 09/24/2023 11:59 PM CDT Hospital Encounter Department of Laboratory Medicine in [address] [phone] Patrick Erickson D.O. Hypertensive Heart With Heart Failure And Chronic Kidney Disease (CKD) Stage 3a Glomerular Filtration Rate (GFR) 45 To 59 (HCC); Hyperlipidemia On Treatment; Atrial Fibrillation Paroxysmal (HCC); Monitoring For Therapeutic Drug Therapy; Care Home (Current) Anticoagulant Treatment Discharge Disposition: Home or Self Care 09/21/2023 1:30 PM CDT Anticoagulation Visit Department of Anticoagulation in [address] [phone] Soheila Zapata P.A.-C., M.S. Hypertensive Heart With Heart Failure And Chronic Kidney Disease (CKD) Stage 3a Glomerular Filtration Rate (GFR) 45 To 59 (HCC) (Primary Dx); Hyperlipidemia On Treatment; Atrial Fibrillation Paroxysmal (HCC); Monitoring For Therapeutic Drug Therapy; Care Home (Current) Anticoagulant Treatment 09/21/2023 11:55 AM CDT - 09/21/2023 11:59 PM CDT Hospital Encounter Department of Laboratory Medicine in [address] [address] Patrick Erickson D.O. Hypertensive Heart With Heart Failure And Chronic Kidney Disease (CKD) Stage 3a Glomerular Filtration Rate (GFR) 45 To 59 (HCC); Hyperlipidemia On Treatment; Atrial Fibrillation Paroxysmal (HCC); Monitoring For Therapeutic Drug Therapy; Clinical Provider Trainer (Current) Anticoagulant Treatment Discharge Disposition: Home or Self Care 09/14/2023 1:30 PM CDT Anticoagulation Visit Department of Anticoagulation in [place], [place] [address] [place] [phone] Soheila Zapata P.Genie.-C., M.S. Atrial Fibrillation Paroxysmal (HCC) (Primary Dx); Hypertensive Heart With Heart Failure And Chronic Kidney Disease (CKD) Stage 3a Glomerular Filtration Rate (GFR) 45 To 59 (HCC); Hyperlipidemia On Treatment; Monitoring For Therapeutic Drug Therapy; Clinical Provider Trainer (Current) Anticoagulant Treatment 09/14/2023 12:44 PM CDT - 09/14/2023 11:59 PM CDT Hospital Encounter Department of Laboratory Medicine in [address] [phone] Soheila Zapata P.A.-C., M.S. Hypertensive Heart With Heart Failure And Chronic Kidney Disease (CKD) Stage 3a Glomerular Filtration Rate (GFR) 45 To 59 (HCC); Hyperlipidemia On Treatment; Atrial Fibrillation Paroxysmal (HCC); Monitoring For Therapeutic Drug Therapy; Care Home (Current) Anticoagulant Treatment Discharge Disposition: Home or Self Care 09/08/2023 4:00 PM CDT Anticoagulation Visit Department of Anticoagulation in [address] [phone] Soheila Zapata P.A.-C., M.S. Hypertensive Heart With Heart Failure And Chronic Kidney Disease (CKD) Stage 3a Glomerular Filtration Rate (GFR) 45 To 59 (HCC) (Primary Dx); Hyperlipidemia On Treatment; Atrial Fibrillation Paroxysmal (HCC); Monitoring For Therapeutic Drug Therapy; Care Home (Current) Anticoagulant Treatment 09/08/2023 3:20 PM CDT - 09/08/2023 11:59 PM CDT Hospital Encounter Department of Laboratory Medicine in [address] [address] Patrick Erickson D.O. Hypertensive Heart With Heart Failure And Chronic Kidney Disease (CKD) Stage 3a Glomerular Filtration Rate (GFR) 45 To 59 (HCC); Hyperlipidemia On Treatment; Atrial Fibrillation Paroxysmal (HCC); Monitoring For Therapeutic Drug Therapy; Clinical Provider Trainer (Current) Anticoagulant Treatment Discharge Disposition: Home or Self Care 09/02/2023 4:00 PM CDT Anticoagulation Visit Department of Anticoagulation in [place], [place] [address] [place] [phone] Soheila Zapata P.A.-C., M.S. Atrial Fibrillation Paroxysmal (HCC) (Primary Dx); Hypertensive Heart With Heart Failure And Chronic Kidney Disease (CKD) Stage 3a Glomerular Filtration Rate (GFR) 45 To 59 (HCC); Hyperlipidemia On Treatment; Monitoring For Therapeutic Drug Therapy; Care Home (Current) Anticoagulant Treatment 09/02/2023 3:01 PM CDT - 09/02/2023 11:59 PM CDT Hospital Encounter Department of Laboratory Medicine in [place], [place] [address] [place] [address] Patrick Erickson D.O. Hypertensive Heart With Heart Failure And Chronic Kidney Disease (CKD) Stage 3a Glomerular Filtration Rate (GFR) 45 To 59 (HCC); Hyperlipidemia On Treatment; Atrial Fibrillation Paroxysmal (HCC); Monitoring For Therapeutic Drug Therapy; Clinical Provider Trainer (Current) Anticoagulant Treatment Discharge Disposition: Home or Self Care 08/27/2023 2:30 PM CDT Anticoagulation Visit Department of Anticoagulation in [place], [place] [address] [place] [phone] Soheila Zapata P.A.-C., M.S. Hypertensive Heart With Heart Failure And Chronic Kidney Disease (CKD) Stage 3a Glomerular Filtration Rate (GFR) 45 To 59 (HCC) (Primary Dx); Hyperlipidemia On Treatment; Atrial Fibrillation Paroxysmal (HCC); Monitoring For Therapeutic Drug Therapy; Care Home (Current) Anticoagulant Treatment 08/27/2023 1:50 PM CDT - 08/27/2023 11:59 PM CDT Hospital Encounter Department of Laboratory Medicine in [place], [place] [address] [place] [address] Patrick Erickson D.O. Hypertensive Heart With Heart Failure And Chronic Kidney Disease (CKD) Stage 3a Glomerular Filtration Rate (GFR) 45 To 59 (HCC); Hyperlipidemia On Treatment; Atrial Fibrillation Paroxysmal (HCC); Monitoring For Therapeutic Drug Therapy; Care Home (Current) Anticoagulant Treatment Discharge Disposition: Home or Self Care 08/24/2023 10:30 AM CDT Anticoagulation Visit Department of Anticoagulation in [place], [place] [address] [place] [address] Soheila Zapata P.A.-C., M.S. Hypertensive Heart With Heart Failure And Chronic Kidney Disease (CKD) Stage 3a Glomerular Filtration Rate (GFR) 45 To 59 (HCC) (Primary Dx); Hyperlipidemia On Treatment; Atrial Fibrillation Paroxysmal (HCC); Monitoring For Therapeutic Drug Therapy; Clinical Provider Trainer (Current) Anticoagulant Treatment 08/24/2023 9:46 AM CDT - 08/24/2023 11:59 PM CDT Hospital Encounter Department of Laboratory Medicine in [address] [phone] Patrick Erickson D.O. Hypertensive Heart With Heart Failure And Chronic Kidney Disease (CKD) Stage 3a Glomerular Filtration Rate (GFR) 45 To 59 (HCC); Hyperlipidemia On Treatment; Atrial Fibrillation Paroxysmal (HCC); Monitoring For Therapeutic Drug Therapy; Care Home (Current) Anticoagulant Treatment Discharge Disposition: Home or Self Care 08/17/2023 3:50 PM CDT Anticoagulation Visit Department of Anticoagulation in [address] [address] Soheila Zapata, PArcadio.-C., M.S. Hypertensive Heart With Heart Failure And Chronic Kidney Disease (CKD) Stage 3a Glomerular Filtration Rate (GFR) 45 To 59 (HCC) (Primary Dx); Hyperlipidemia On Treatment; Atrial Fibrillation Paroxysmal (HCC); Monitoring For Therapeutic Drug Therapy; Clinical Provider Trainer (Current) Anticoagulant Treatment 08/16/2023 Clinical Communication Department of Anticoagulation in [address] [phone] Kina Montgomery R.N. Anticoagulation (INR OOR) 08/16/2023 1:24 PM CDT - 08/16/2023 11:59 PM CDT Hospital Encounter Department of Laboratory Medicine in [address] [address] Patrick Ercikson D.O. Hypertensive Heart With Heart Failure And Chronic Kidney Disease (CKD) Stage 3a Glomerular Filtration Rate (GFR) 45 To 59 (HCC); Hyperlipidemia On Treatment; Atrial Fibrillation Paroxysmal (HCC); Monitoring For Therapeutic Drug Therapy; Care Home (Current) Anticoagulant Treatment Discharge Disposition: Home or Self Care 08/13/2023 Clinical Communication Department of Anticoagulation in [address] [phone] Mariam Garland Anticoagulation (Lack of Engagement) 08/06/2023 9:50 AM CDT Anticoagulation Visit Department of Anticoagulation in [address] [address] Soheila Zapata P.A.-C., M.S. Hypertensive Heart With Heart Failure And Chronic Kidney Disease (CKD) Stage 3a Glomerular Filtration Rate (GFR) 45 To 59 (HCC) (Primary Dx); Hyperlipidemia On Treatment; Atrial Fibrillation Paroxysmal (HCC); Monitoring For Therapeutic Drug Therapy; Care Home (Current) Anticoagulant Treatment 08/05/2023 Clinical Communication Department of Anticoagulation in [place], [place] [address] [place] [address] Isa Callahan R.N. Anticoagulation (Unable to reach ) 08/05/2023 2:36 PM CDT - 08/05/2023 11:59 PM CDT Hospital Encounter Department of Laboratory Medicine in [place], [place] [address], [place] [address] Patrick Erickson D.O. Hypertensive Heart With Heart Failure And Chronic Kidney Disease (CKD) Stage 3a Glomerular Filtration Rate (GFR) 45 To 59 (HCC); Hyperlipidemia On Treatment; Atrial Fibrillation Paroxysmal (HCC); Monitoring For Therapeutic Drug Therapy; Care Home (Current) Anticoagulant Treatment Discharge Disposition: Home or Self Care 07/06/2023 8:39 AM CDT - 07/06/2023 11:59 PM CDT Hospital Encounter Department of Laboratory Medicine in [address] [phone] Patrick Erickson D.O. Atrial Fibrillation Paroxysmal (HCC); Hypertensive Heart With Heart Failure And Chronic Kidney Disease (CKD) Stage 3a Glomerular Filtration Rate (GFR) 45 To 59 (HCC); Screening Examination Diabetes Mellitus; Hyperlipidemia On Treatment Discharge Disposition: Home or Self Care 07/06/2023 9:00 AM CDT Anticoagulation Visit Department of Anticoagulation in [place], [place] [address] [place] [address] Soheila Zapata P.A.-C., M.S. Hypertensive Heart With Heart Failure And Chronic Kidney Disease (CKD) Stage 3a Glomerular Filtration Rate (GFR) 45 To 59 (HCC) (Primary Dx); Hyperlipidemia On Treatment; Atrial Fibrillation Paroxysmal (HCC); Monitoring For Therapeutic Drug Therapy; Care Home (Current) Anticoagulant Treatment 07/06/2023 8:17 AM CDT - 07/06/2023 8:38 AM CDT Hospital Encounter Department of Laboratory Medicine in [address] [address] Patrick Erickson D.O. Atrial Fibrillation Paroxysmal (HCC); Hypertensive Heart With Heart Failure And Chronic Kidney Disease (CKD) Stage 3a Glomerular Filtration Rate (GFR) 45 To 59 (HCC); Hyperlipidemia On Treatment; Monitoring For Therapeutic Drug Therapy; Care Home (Current) Anticoagulant Treatment Discharge Disposition: Home or Self Care 07/02/2023 Clinical Communication Department of Internal Medicine in [place], [place] [facility] [address] [address] Patrick Erickson D.O. 07/02/2023 10:15 AM CDT Nurse Only Department of Family Medicine, [facility], in [address] [address] Patrick Erickson D.O. McHugh, Wendy A, L.P.N. Nurse Visit (BP check ) 06/24/2023 8:00 AM CDT Anticoagulation Visit Department of Anticoagulation in [address] [address] Patrick Erickson D.O. Hypertensive Heart With Heart Failure And Chronic Kidney Disease (CKD) Stage 3a Glomerular Filtration Rate (GFR) 45 To 59 (HCC) (Primary Dx); Atrial Fibrillation Paroxysmal (HCC); Hyperlipidemia On Treatment; Monitoring For Therapeutic Drug Therapy; Clinical Provider Trainer (Current) Anticoagulant Treatment 06/23/2023 Refill Department of Cardiovascular Diseases in [place], [place] [address], [place] [address] Roberto Dumont, BALTAZAR, C.N.P. Med Refill 06/22/2023 Clinical Communication Department of Anticoagulation in [place], [place] [address] [place] [address] Grace Oneill, RMoraima. Anticoagulation (Unable to Reach) 06/22/2023 9:58 AM CDT - 06/22/2023 11:59 PM CDT Hospital Encounter Department of Laboratory Medicine in [place], [place] [address] [place] [phone] Soheila Zapata P.A.-C., M.S. Hypertensive Heart With Heart Failure And Chronic Kidney Disease (CKD) Stage 3a Glomerular Filtration Rate (GFR) 45 To 59 (HCC); Hyperlipidemia On Treatment; Atrial Fibrillation Paroxysmal (HCC); Monitoring For Therapeutic Drug Therapy; Clinical Provider Trainer (Current) Anticoagulant Treatment Discharge Disposition: Home or Self Care 06/22/2023 9:57 AM CDT Hospital Encounter Department of Laboratory Medicine in [place], [place] [address] [place] [phone] Roberto Dumont APRN CHowieNHowieP. Atrial Fibrillation Unspecified (HCC) Discharge Disposition: Home or Self Care 06/22/2023 1:00 PM CDT Office Visit Department of Internal Medicine in [place], [place] [address] [place] [phone] Patrick Erickson D.O. Atrial Fibrillation Paroxysmal (HCC) (Primary Dx); Clinical Provider Trainer (Current) Anticoagulant Treatment; Monitoring For Therapeutic Drug Therapy; Hypertensive Heart With Heart Failure And Chronic Kidney Disease (CKD) Stage 3a Glomerular Filtration Rate (GFR) 45 To 59 (HCC); Hyperlipidemia On Treatment; Screening Examination Diabetes Mellitus 06/18/2023 Clinical Communication Department of Anticoagulation in [place], [place] [address] [place] [address] Sandra De Oliveira Anticoagulation (Unable to reach) 06/03/2023 12:50 PM CDT - 06/03/2023 11:59 PM CDT Hospital Encounter Department of Laboratory Medicine in [address] [phone] Patrick Erickson D.O. Hypertensive Heart With Heart Failure And Chronic Kidney Disease (CKD) Stage 3a Glomerular Filtration Rate (GFR) 45 To 59 (HCC); Hyperlipidemia On Treatment; Atrial Fibrillation Paroxysmal (HCC); Monitoring For Therapeutic Drug Therapy; Clinical Provider Trainer (Current) Anticoagulant Treatment Discharge Disposition: Home or Self Care 06/03/2023 1:30 PM CDT Anticoagulation Visit Department of Anticoagulation in [place], [place] [address] [place], [place] [address] Soheila Zapata P.A.-C., M.S. Hypertensive Heart With Heart Failure And Chronic Kidney Disease (CKD) Stage 3a Glomerular Filtration Rate (GFR) 45 To 59 (HCC) (Primary Dx); Hyperlipidemia On Treatment; Atrial Fibrillation Paroxysmal (HCC); Monitoring For Therapeutic Drug Therapy; Clinical Provider Trainer (Current) Anticoagulant Treatment 05/27/2023 11:10 AM CDT Anticoagulation Visit Department of Anticoagulation in [place], [place] [address] [place] [address] Soheila Zapata P.A.-C., M.S. Hypertensive Heart With Heart Failure And Chronic Kidney Disease (CKD) Stage 3a Glomerular Filtration Rate (GFR) 45 To 59 (HCC) (Primary Dx); Hyperlipidemia On Treatment; Atrial Fibrillation Paroxysmal (HCC); Monitoring For Therapeutic Drug Therapy; Clinical Provider Trainer (Current) Anticoagulant Treatment 05/27/2023 10:20 AM CDT - 05/27/2023 11:59 PM CDT Hospital Encounter Department of Laboratory Medicine in [address] [phone] Patrick Erickson D.O. 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 Atrial Fibrillation Paroxysmal (HCC) Discharge Disposition: Home or Self Care 05/21/2023 3:20 PM CDT Anticoagulation Visit Department of Anticoagulation in [place], [place] [address] [place] [address] Soheila Zapata P.A.-C., M.S. Hypertensive Heart With Heart Failure And Chronic Kidney Disease (CKD) Stage 3a Glomerular Filtration Rate (GFR) 45 To 59 (HCC) (Primary Dx); Hyperlipidemia On Treatment; Atrial Fibrillation Paroxysmal (HCC); Monitoring For Therapeutic Drug Therapy; Care Home (Current) Anticoagulant Treatment 05/11/2023 Orders Only [facility] Patrick Erickson D.O. 05/07/2023 12:25 PM SWING TENDER - 05/07/2023 11:59 PM SWING TENDER Hospital Encounter Department of Laboratory Medicine in [place], [place] [address], [place] [address] Patrick Erickson D.O. Hypertensive Heart With Heart Failure And Chronic Kidney Disease (CKD) Stage 3a Glomerular Filtration Rate (GFR) 45 To 59 (HCC); Hyperlipidemia On Treatment; Atrial Fibrillation Paroxysmal (HCC); Monitoring For Therapeutic Drug Therapy; Care Home (Current) Anticoagulant Treatment Discharge Disposition: Home or Self Care 05/07/2023 1:50 PM SWING TENDER Anticoagulation Visit Department of Anticoagulation in [place], [place] [address] [place] [phone] Soheila Zapata P.A.-C., M.S. 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 Hypertensive Heart With Heart Failure And Chronic Kidney Disease (CKD) Stage 3a Glomerular Filtration Rate (GFR) 45 To 59 (HCC) (Primary Dx); Hyperlipidemia On Treatment; Atrial Fibrillation Paroxysmal (HCC); Monitoring For Therapeutic Drug Therapy; Clinical Provider Trainer (Current) Anticoagulant Treatment 04/30/2023 12:24 PM SWING TENDER - 04/30/2023 11:59 PM SWING TENDER Hospital Encounter Department of Laboratory Medicine in [place], [place] [address] [place] [address] Patrick Erickson D.O. 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 Med Refill 04/28/2023 Refill Department of Internal Medicine in [address] [phone] Anna Iniguez APRN, C.N.P., D.N.P. Med Refill 04/27/2023 11:20 AM SWING TENDER Office Visit Department of Internal Medicine in [address] [address] Anna Iniguez APRN, C.N.P., D.N.P. Dermatitis Perioral (Primary Dx); Hypertensive Heart With Heart Failure And Chronic Kidney Disease (CKD) Stage 3a Glomerular Filtration Rate (GFR) 45 To 59 (HCC); Atrial Fibrillation Paroxysmal (HCC); Allergy Unspecified Initial 04/18/2023 Refill Department of Internal Medicine in [address] [address] Anna Iniguez APRN, C.N.P., D.N.P. Med Refill 04/02/2023 2:38 PM SWING TENDER - 04/02/2023 11:59 PM SWING TENDER Hospital Encounter Department of Laboratory Medicine in [address] [phone] Patrick Erickson D.O. 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 Hypertensive Heart With Heart Failure And Chronic Kidney Disease (CKD) Stage 3a Glomerular Filtration Rate (GFR) 45 To 59 (HCC) (Primary Dx); Monitoring For Therapeutic Drug Therapy; Atrial Fibrillation Paroxysmal (HCC) 03/19/2023 Nurse Triage Department of Internal Medicine in [place], [place] [address] [place] [address] Rosa Isela Pelayo R.N. Urinary Symptom 03/12/2023 2:50 PM SWING TENDER - 03/12/2023 11:59 PM SWING TENDER Hospital Encounter Department of Laboratory Medicine in [address] [address] Patrick Erickson D.O. Atrial Fibrillation Paroxysmal (HCC); Monitoring For Therapeutic Drug Therapy; Clinical Provider Trainer (Current) Anticoagulant Treatment Discharge Disposition: Home or Self Care 03/12/2023 4:20 PM SWING TENDER Anticoagulation Visit Department of Anticoagulation in [address] [phone] Soheila Zapata P.A.-C., M.S. 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 Atrial Fibrillation Paroxysmal (HCC); Monitoring For Therapeutic Drug Therapy; Care Home (Current) Anticoagulant Treatment Discharge Disposition: Home or Self Care 03/09/2023 2:30 PM SWING TENDER Anticoagulation Visit Department of Anticoagulation in [address] [address] Soheila Zapata P.A.-Ashish., M.S. Hypertensive Heart With Heart Failure And Chronic Kidney Disease (CKD) Stage 3a Glomerular Filtration Rate (GFR) 45 To 59 (HCC) (Primary Dx); Hyperlipidemia On Treatment; Atrial Fibrillation Paroxysmal (HCC); Monitoring For Therapeutic Drug Therapy; Clinical Provider Trainer (Current) Anticoagulant Treatment 03/05/2023 4:07 PM SWING TENDER - 03/05/2023 11:59 PM SWING TENDER Hospital Encounter Department of Laboratory Medicine in [address] [address] Hellweg, Patrick J, D.O. Atrial Fibrillation Paroxysmal (HCC); Monitoring For Therapeutic Drug Therapy; Care Home (Current) Anticoagulant Treatment Discharge Disposition: Home or Self Care 03/05/2023 4:00 PM SWING TENDER Anticoagulation Visit Department of Anticoagulation in [place], [place] [address] [place] [address] Soheila Zapata P.A.-C., M.S. 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 Atrial Fibrillation Paroxysmal (HCC) (Primary Dx); Monitoring For Therapeutic Drug Therapy; Clinical Provider Trainer (Current) Anticoagulant Treatment 02/24/2023 4:20 PM SWING TENDER - 02/24/2023 11:59 PM SWING TENDER Hospital Encounter Department of Laboratory Medicine in [place], [place] [address] [place] [phone] Soheila Zapata P.A.-Ashish., M.S. Atrial Fibrillation Paroxysmal (HCC); Monitoring For Therapeutic Drug Therapy; Care Home (Current) Anticoagulant Treatment Discharge Disposition: Home or Self Care 02/24/2023 Clinical Communication Department of [facility], [address] [address] Medina Langston R.N. COVID Treatment Review; Error 02/24/2023 Nurse Triage Department of Internal Medicine in [place], [place] [address], [place] [address] Sandra Maravilla R.N. COVID Nurse Line (/) 02/22/2023 Nurse Triage Department of Internal Medicine in [place], [place] [address], [place] [address] Trish Smith R.N. Cough 02/16/2023 9:20 AM SWING TENDER - 02/16/2023 11:59 PM SWING TENDER Hospital Encounter Department of Laboratory Medicine in [address] [address] Patrick Erickson D.O. Atrial Fibrillation Paroxysmal (HCC); Monitoring For Therapeutic Drug Therapy; Care Home (Current) Anticoagulant Treatment Discharge Disposition: Home or Self Care 02/16/2023 10:00 AM SWING TENDER Anticoagulation Visit Department of Anticoagulation in [address] [address] Soheila Zapata PArcadio.-C., M.S. Atrial Fibrillation Paroxysmal (HCC) (Primary Dx); Monitoring For Therapeutic Drug Therapy; Care Home (Current) Anticoagulant Treatment 02/09/2023 Orders Only [facility] Patrick Erickson D.O. 02/02/2023 12:30 PM SWING TENDER Anticoagulation Visit Department of Anticoagulation in [address] [address] Soheila Zapata P.A.-C., M.S. Atrial Fibrillation Paroxysmal (HCC) (Primary Dx); Monitoring For Therapeutic Drug Therapy; Care Home (Current) Anticoagulant Treatment 02/02/2023 11:50 AM SWING TENDER - 02/02/2023 11:59 PM SWING TENDER Hospital Encounter Department of Laboratory Medicine in [address] [address] Patrick Erickson D.O. Atrial Fibrillation Paroxysmal (HCC); Monitoring For Therapeutic Drug Therapy; Clinical Provider Trainer (Current) Anticoagulant Treatment Discharge Disposition: Home or Self Care 01/26/2023 10:00 AM SWING TENDER Anticoagulation Visit Department of Anticoagulation in [address] [address] Soheila Zapata P.Genie.-C., M.S. Atrial Fibrillation Paroxysmal (HCC) (Primary Dx); Monitoring For Therapeutic Drug Therapy; Care Home (Current) Anticoagulant Treatment 01/26/2023 9:20 AM SWING TENDER - 01/26/2023 11:59 PM SWING TENDER Hospital Encounter Department of Laboratory Medicine in [address] [address] Patrick Erickson D.O. Atrial Fibrillation Paroxysmal (HCC); Monitoring For Therapeutic Drug Therapy; Care Home (Current) Anticoagulant Treatment Discharge Disposition: Home or Self Care 01/14/2023 Clinical Communication Department of Spine in [place], [place] [address] [place] [phone] Sirisha Valentino Follow-up ([facility] is calling to complete your 1-year follow-up PROMIS-CAT questionnaires. You will receive questionnaires at different timepoints in the future. You can complete the current questionnaires in your portal and no return call is necessary. If you have any questions, please call us at: [phone]. Thank you! / ) 12/15/2022 12:00 PM CDT Anticoagulation Visit Department of Anticoagulation in [place], [place] [address] [place] [phone] Soheila Zapata P.A.-C., M.S. 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 Atrial Fibrillation Paroxysmal (HCC); Monitoring For Therapeutic Drug Therapy; Clinical Provider Trainer (Current) Anticoagulant Treatment Discharge Disposition: Home or Self Care 11/17/2022 3:10 PM CDT Anticoagulation Visit Department of Anticoagulation in [place], [place] [address] [place] [phone] Soheila Zapata P.A.-C., M.S. Atrial Fibrillation Paroxysmal (HCC) (Primary Dx); Monitoring For Therapeutic Drug Therapy; Clinical Provider Trainer (Current) Anticoagulant Treatment 11/17/2022 2:08 PM CDT - 11/17/2022 11:59 PM CDT Hospital Encounter Department of Laboratory Medicine in [place], [place] [address] [place] [phone] Soheila Zapata P.A.-C., M.S. Atrial Fibrillation Paroxysmal (HCC); Monitoring For Therapeutic Drug Therapy; Care Home (Current) Anticoagulant Treatment Discharge Disposition: Home or Self Care 11/10/2022 12:00 PM CDT - 11/10/2022 11:59 PM CDT Hospital Encounter Department of Laboratory Medicine in [address] [phone] Soheila Zapata P.A.-C., M.S. Atrial Fibrillation Paroxysmal (HCC); Monitoring For Therapeutic Drug Therapy; Care Home (Current) Anticoagulant Treatment Discharge Disposition: Home or Self Care 11/10/2022 12:40 PM CDT Anticoagulation Visit Department of Anticoagulation in [place], [place] [address] [place] [phone] Soheila Zapata P.A.-C., M.S. Atrial Fibrillation Paroxysmal (HCC) (Primary Dx); Monitoring For Therapeutic Drug Therapy; Care Home (Current) Anticoagulant Treatment 11/04/2022 12:33 PM CDT - 11/04/2022 11:59 PM CDT Hospital Encounter Department of Laboratory Medicine in [address] [phone] Patrick Erickson D.O. Atrial Fibrillation Paroxysmal (HCC); Monitoring For Therapeutic Drug Therapy; Care Home (Current) Anticoagulant Treatment Discharge Disposition: Home or Self Care 11/04/2022 2:30 PM CDT Anticoagulation Visit Department of Anticoagulation in [place], [place] [address] [place] [phone] Soheila Zapata P.A.-C., M.S. Atrial Fibrillation Paroxysmal (HCC) (Primary Dx); Monitoring For Therapeutic Drug Therapy; Care Home (Current) Anticoagulant Treatment 10/28/2022 8:00 AM CDT Anticoagulation Visit Department of Anticoagulation in [place], [place] [address] [place] [phone] Patrick Erickson D.O. Atrial Fibrillation Paroxysmal (HCC) (Primary Dx); Monitoring For Therapeutic Drug Therapy; Care Home (Current) Anticoagulant Treatment 10/27/2022 Clinical Communication Department of Anticoagulation in [place], [place] [address] [place] [phone] Annalise Palmer R.N. Anticoagulation (Unable to reach ) 10/27/2022 11:16 AM CDT - 10/27/2022 11:59 PM CDT Hospital Encounter Department of Laboratory Medicine in [address] [address] Patrick Erickson D.O. Atrial Fibrillation Paroxysmal (HCC); Monitoring For Therapeutic Drug Therapy; Clinical Provider Trainer (Current) Anticoagulant Treatment Discharge Disposition: Home or Self Care 10/21/2022 Clinical Communication Department of Anticoagulation in [place], [place] [address] [place] [phone] Angela Shukla R.N. Anticoagulation (CCM-Enrollment) 10/12/2022 Orders Only Department of Internal Medicine in [address] [phone] Soheila Zapata P.A.-C., M.S. 10/12/2022 9:20 AM CDT - 10/12/2022 11:59 PM CDT Hospital Encounter Department of Laboratory Medicine in [address] [phone] Patrick Erickson D.O. 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 Atrial Fibrillation Paroxysmal (HCC) (Primary Dx); Monitoring For Therapeutic Drug Therapy; Clinical Provider Trainer (Current) Anticoagulant Treatment 10/02/2022 Clinical Communication Department of Anticoagulation in [place], [place] [address] [place] [address] Carmen Dorado Anticoagulation (Enrollment Update) 10/02/2022 Orders Only Department of Anticoagulation in [place], [place] [address] [place] [phone] Thalia Zepeda R.N. Atrial Fibrillation Paroxysmal (HCC) (Primary Dx); Care Home (Current) Anticoagulant Treatment; Monitoring For Therapeutic Drug Therapy 10/02/2022 8:00 AM CDT Anticoagulation Visit Department of Anticoagulation in [place], [place] [address] [place] [phone] Patrick Erickson D.O. Atrial Fibrillation Paroxysmal (HCC) (Primary Dx); Monitoring For Therapeutic Drug Therapy; Clinical Provider Trainer (Current) Anticoagulant Treatment 10/01/2022 Clinical Communication Department of Anticoagulation in [place], [place] [address] [place] [phone] Hemalatha Lewis R.N. Anticoagulation 10/01/2022 8:50 AM CDT - 10/01/2022 11:59 PM CDT Hospital Encounter Department of Laboratory Medicine in [address] [phone] Patrick Erickson D.O. Atrial Fibrillation Paroxysmal (HCC); Monitoring For Therapeutic Drug Therapy; Care Home (Current) Anticoagulant Treatment Discharge Disposition: Home or Self Care 09/17/2022 Orders Only Department of Internal Medicine in [place], [place] [address] [phone] Soheila Zapata P.A.-Ashish., M.S. Hypertensive Heart With Heart Failure And Chronic Kidney Disease (CKD) Stage 3a Glomerular Filtration Rate (GFR) 45 To 59 (HCC) (Primary Dx) 09/17/2022 11:16 AM CDT - 09/17/2022 11:59 PM CDT Hospital Encounter Department of Laboratory Medicine in [address] [phone] Patrick Erickson D.O. Monitoring For Therapeutic Drug Therapy Discharge Disposition: Home or Self Care 09/17/2022 10:20 AM CDT - 09/17/2022 11:15 AM CDT Hospital Encounter Department of Laboratory Medicine in [address] [address] Patrick Erickson D.O. Atrial Fibrillation Paroxysmal (HCC); Monitoring For Therapeutic Drug Therapy Discharge Disposition: Home or Self Care 09/17/2022 11:00 AM CDT Anticoagulation Visit Department of Anticoagulation in [place], [place] [address] [place] [address] Soheila Zapata P.A.-C., M.S. Atrial Fibrillation Paroxysmal (HCC) (Primary Dx); Monitoring For Therapeutic Drug Therapy; Care Home (Current) Anticoagulant Treatment 09/03/2022 10:20 AM CDT - 09/03/2022 11:59 PM CDT Hospital Encounter Department of Laboratory Medicine in [address] [phone] Soheila Zapata P.A.-C., M.S. Atrial Fibrillation Unspecified (HCC); Monitoring For Therapeutic Drug Therapy; Clinical Provider Trainer (Current) Anticoagulant Treatment Discharge Disposition: Home or Self Care 09/03/2022 11:00 AM CDT Anticoagulation Visit Department of Anticoagulation in [place], [place] [address] [place] [address] Soheila Zapata P.A.-C., M.S. Atrial Fibrillation Paroxysmal (HCC) (Primary Dx); Monitoring For Therapeutic Drug Therapy; Care Home (Current) Anticoagulant Treatment 09/01/2022 1:00 PM CDT Office Visit Department of Cardiovascular Diseases in [place], [place] [address], [place] [address] Roberto Dumont, BALTAZAR, C.N.P. Atrial Fibrillation Paroxysmal (HCC) (Primary Dx); Clinical Provider Trainer (Current) Anticoagulant Treatment; Bradycardia; Cardiomyopathy Dilated (HCC); Hypertensive Heart With Heart Failure And Chronic Kidney Disease (CKD) Stage 3a Glomerular Filtration Rate (GFR) 45 To 59 (HCC) 08/31/2022 11:00 AM CDT Office Visit Department of Family Medicine, [facility], in [place], [place] [address], [place] [address] Alesha Kellogg APRN CHowieNHowieP. Laceration Blood Vessel Left Index Finger Sequela (Primary Dx) 08/12/2022 Orders Only [facility] Patrick Erickson D.O. Monitoring For Therapeutic Drug Therapy 08/10/2022 11:11 AM CDT - 08/10/2022 11:59 PM CDT Hospital Encounter Department of Laboratory Medicine in [address] [phone] Soheila Zapata P.A.-C., M.S. Atrial Fibrillation Unspecified (HCC); Monitoring For Therapeutic Drug Therapy; Care Home (Current) Anticoagulant Treatment Discharge Disposition: Home or Self Care 08/10/2022 12:30 PM CDT Anticoagulation Visit Department of Anticoagulation in [place], [place] [address] [place] [address] Soheila Zapata, P.A.-C., M.S. Atrial Fibrillation Unspecified (HCC) (Primary Dx); Monitoring For Therapeutic Drug Therapy; Care Home (Current) Anticoagulant Treatment 08/07/2022 Clinical Communication Department of Anticoagulation in [place], [place] [address] [place] [phone] Lois Vidal R.Bee. Anticoagulation 07/27/2022 3:20 PM CDT Anticoagulation Visit Department of Anticoagulation in [place], [place] [address] [place] [phone] Soheila Zapata, P.A.-C., M.S. Atrial Fibrillation Unspecified (HCC) (Primary Dx); Monitoring For Therapeutic Drug Therapy; Care Home (Current) Anticoagulant Treatment 07/27/2022 2:20 PM CDT - 07/27/2022 11:59 PM CDT Hospital Encounter Department of Laboratory Medicine in [address] [phone] Soheila Zapata P.A.-C., M.S. Atrial Fibrillation Unspecified (HCC); Monitoring For Therapeutic Drug Therapy; Care Home (Current) Anticoagulant Treatment Discharge Disposition: Home or Self Care 06/29/2022 10:12 AM CDT - 06/29/2022 11:59 PM CDT Hospital Encounter Department of Laboratory Medicine in [address] [phone] Soheila Zapata P.A.-C., M.S. Atrial Fibrillation Unspecified; Monitoring For Therapeutic Drug Therapy; Care Home (Current) Anticoagulant Treatment Discharge Disposition: Home or Self Care 06/29/2022 11:00 AM CDT Anticoagulation Visit Department of Anticoagulation in [address] [phone] Soheila Zapata P.A.-C., M.S. Atrial Fibrillation Unspecified (Primary Dx); Monitoring For Therapeutic Drug Therapy; Care Home (Current) Anticoagulant Treatment 06/19/2022 9:50 AM CDT - 06/19/2022 11:59 PM CDT Hospital Encounter Department of Laboratory Medicine in [address] [address] Soheila Zapata P.A.-C., M.S. Atrial Fibrillation Unspecified; Monitoring For Therapeutic Drug Therapy; Clinical Provider Trainer (Current) Anticoagulant Treatment Discharge Disposition: Home or Self Care 06/19/2022 10:30 AM CDT Anticoagulation Visit Department of Anticoagulation in [place], [place] [address] [place] [phone] Soheila Zapata P.A.-C., M.S. Atrial Fibrillation Unspecified (Primary Dx); Monitoring For Therapeutic Drug Therapy; Clinical Provider Trainer (Current) Anticoagulant Treatment 06/15/2022 9:50 AM CDT - 06/15/2022 11:59 PM CDT Hospital Encounter Department of Laboratory Medicine in [address] [address] Soheila Zapata P.A.-C., M.S. Atrial Fibrillation Unspecified; Monitoring For Therapeutic Drug Therapy; Clinical Provider Trainer (Current) Anticoagulant Treatment Discharge Disposition: Home or Self Care 06/15/2022 10:30 AM CDT Anticoagulation Visit Department of Anticoagulation in [place], [place] [address] [place] [phone] Soheila Zapata P.A.-C., M.S. Atrial Fibrillation Unspecified (Primary Dx); Monitoring For Therapeutic Drug Therapy; Care Home (Current) Anticoagulant Treatment 06/09/2022 9:50 AM CDT - 06/09/2022 11:59 PM CDT Hospital Encounter Department of Laboratory Medicine in [address] [address] Soheila Zapata P.A.-C., M.S. Atrial Fibrillation Unspecified; Monitoring For Therapeutic Drug Therapy; Clinical Provider Trainer (Current) Anticoagulant Treatment Discharge Disposition: Home or Self Care 06/09/2022 10:30 AM CDT Anticoagulation Visit Department of Anticoagulation in [place], [place] [address] [place] [phone] Soheila Zapata P.A.-C., M.S. Atrial Fibrillation Unspecified (Primary Dx); Monitoring For Therapeutic Drug Therapy; Clinical Provider Trainer (Current) Anticoagulant Treatment 06/03/2022 9:45 AM CDT Office Visit Department of Cardiovascular Diseases in [address] [address] Roberto Dumont APRN, C.N.P. 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 Cardiomyopathy Dilated (HCC) Discharge Disposition: Home or Self Care 05/12/2022 Orders Only [facility] Soheila Zapata P.A.-C., M.S. Deficiency Estrogen Post Menopausal 05/12/2022 9:20 AM SWING TENDER - 05/12/2022 11:59 PM SWING TENDER Hospital Encounter Department of Laboratory Medicine in [place], [place] [address] [place] [address] Soheila Zapata P.A.-C., M.S. Atrial Fibrillation Unspecified; Monitoring For Therapeutic Drug Therapy; Care Home (Current) Anticoagulant Treatment Discharge Disposition: Home or Self Care 05/12/2022 10:00 AM SWING TENDER Anticoagulation Visit Department of Anticoagulation in [place], [place] [address] [place] [phone] Soheila Zapata P.A.-C., M.S. Atrial Fibrillation Unspecified (Primary Dx); Monitoring For Therapeutic Drug Therapy; Care Home (Current) Anticoagulant Treatment 04/29/2022 8:00 AM SWING TENDER Anticoagulation Visit Department of Anticoagulation in [place], [place] [address] [place] [address] Soheila Zapata P.A.-C., M.S. Atrial Fibrillation Unspecified (Primary Dx); Monitoring For Therapeutic Drug Therapy; Clinical Provider Trainer (Current) Anticoagulant Treatment 04/28/2022 Clinical Communication Department of Anticoagulation in [place], [place] [address] [place] [phone] Hemalatha Lewis, R.NHowie 04/28/2022 2:42 PM SWING TENDER - 04/28/2022 11:59 PM SWING TENDER Hospital Encounter Department of Laboratory Medicine in [place], [place] [address] [place] [address] Soheila Zapata P.A.-C., M.S. Atrial Fibrillation Unspecified; Monitoring For Therapeutic Drug Therapy; Care Home (Current) Anticoagulant Treatment Discharge Disposition: Home or Self Care 04/21/2022 10:25 AM SWING TENDER - 04/21/2022 11:59 PM SWING TENDER Hospital Encounter Department of Laboratory Medicine in [place], [place] [address] [place] [address] Roberto Dumont APRN, C.N.P. Atrial Fibrillation Unspecified Discharge Disposition: Home or Self Care 04/21/2022 9:50 AM SWING TENDER - 04/21/2022 10:24 AM SWING TENDER Hospital Encounter Department of Laboratory Medicine in [place], [place] [address] [facility] [place] [address] Soheila Zapata P.A.-C., M.S. Atrial Fibrillation Unspecified; Monitoring For Therapeutic Drug Therapy; Care Home (Current) Anticoagulant Treatment Discharge Disposition: Home or Self Care 04/21/2022 10:30 AM SWING TENDER Anticoagulation Visit Department of Anticoagulation in [place], [place] [address] [place] [address] Soheila Zapata P.A.-C., M.S. Atrial Fibrillation Unspecified (Primary Dx); Monitoring For Therapeutic Drug Therapy; Care Home (Current) Anticoagulant Treatment 04/16/2022 Orders Only Department of Cardiovascular Diseases in [address] [address] Roberto Dumont, BALTAZAR, C.N.P. 04/15/2022 Refill Department of Internal Medicine in [address] [address] Soheila Zapata P.A.-C., M.S. Med Refill 04/15/2022 Refill Department of Internal Medicine in [address] [address] Addie De La Garza M.D. Med Refill 04/10/2022 Refill Department of Internal Medicine in [address] [address] Soheila Zapata P.A.-C., M.S. Med Refill 04/07/2022 10:10 AM SWING TENDER - 04/07/2022 10:17 AM SWING TENDER Hospital Encounter Department of Laboratory Medicine in [address] [address] Soheila Zapata P.A.-C., M.S. Atrial Fibrillation Unspecified; Monitoring For Therapeutic Drug Therapy; Care Home (Current) Anticoagulant Treatment Discharge Disposition: Home or Self Care 04/07/2022 10:50 AM SWING TENDER Anticoagulation Visit Department of Anticoagulation in [place], [place] [address] [place] [phone] Soheila Zapata P.A.-C., M.S. Atrial Fibrillation Unspecified (Primary Dx); Monitoring For Therapeutic Drug Therapy; Clinical Provider Trainer (Current) Anticoagulant Treatment 04/07/2022 10:18 AM SWING TENDER - 04/07/2022 11:59 PM SWING TENDER Hospital Encounter Department of Cardiovascular Diseases in [address] [address] Roberto Dumont APRN C.N.P. Atrial Fibrillation Other Persistent (HCC) Discharge Disposition: Home or Self Care 03/31/2022 Clinical Communication Department of Internal Medicine in [address] [address] Soheila Zapata P.A.-C., M.S. 03/31/2022 Nurse Triage Department of Internal Medicine in [address] [address] Tammy Hoffmann M.S.N., R.N. Eye Problem 03/31/2022 12:30 PM SWING TENDER Anticoagulation Visit Department of Anticoagulation in [place], [place] [address] [place] [phone] Soheila Zapata P.A.-C., M.S. Atrial Fibrillation Unspecified (Primary Dx); Monitoring For Therapeutic Drug Therapy; Care Home (Current) Anticoagulant Treatment 03/31/2022 11:50 AM SWING TENDER - 03/31/2022 11:59 PM SWING TENDER Hospital Encounter Department of Laboratory Medicine in [address] [phone] Soheila Zapata P.A.-C., M.S. Atrial Fibrillation Unspecified; Monitoring For Therapeutic Drug Therapy; Care Home (Current) Anticoagulant Treatment Discharge Disposition: Home or Self Care 03/27/2022 Clinical Communication Department of Anticoagulation in [address] [phone] Alesha Gonzalez R.N. Anticoagulation 03/24/2022 1:30 PM SWING TENDER Anticoagulation Visit Department of Anticoagulation in [place], [place] [address] [place] [phone] Soheila Zapata P.A.-C., M.S. Atrial Fibrillation Unspecified (Primary Dx); Monitoring For Therapeutic Drug Therapy; Clinical Provider Trainer (Current) Anticoagulant Treatment 03/24/2022 12:44 PM SWING TENDER - 03/24/2022 11:59 PM SWING TENDER Hospital Encounter Department of Laboratory Medicine in [address] [address] Soheila Zapata P.A.-C., M.S. Atrial Fibrillation Unspecified; Monitoring For Therapeutic Drug Therapy; Care Home (Current) Anticoagulant Treatment Discharge Disposition: Home or Self Care 03/16/2022 10:30 AM SWING TENDER Anticoagulation Visit Department of Anticoagulation in [address] [address] Soheila Zapata P.A.-C., M.S. Atrial Fibrillation Unspecified (Primary Dx); Monitoring For Therapeutic Drug Therapy; Clinical Provider Trainer (Current) Anticoagulant Treatment 03/16/2022 9:50 AM SWING TENDER - 03/16/2022 11:59 PM SWING TENDER Hospital Encounter Department of Laboratory Medicine in [address] [address] Soheila Zapata P.A.-C., M.S. Atrial Fibrillation Unspecified; Monitoring For Therapeutic Drug Therapy; Care Home (Current) Anticoagulant Treatment Discharge Disposition: Home or Self Care 03/06/2022 10:50 AM SWING TENDER - 03/06/2022 11:59 PM SWING TENDER Hospital Encounter Department of Laboratory Medicine in [address] [address] Soheila Zapata P.A.-C., M.S. Atrial Fibrillation Unspecified; Monitoring For Therapeutic Drug Therapy; Care Home (Current) Anticoagulant Treatment Discharge Disposition: Home or Self Care 03/06/2022 11:40 AM SWING TENDER Anticoagulation Visit Department of Anticoagulation in [place], [place] [address] [place] [phone] Soheila Zapata P.A.-C., M.S. Atrial Fibrillation Unspecified (Primary Dx); Monitoring For Therapeutic Drug Therapy; Clinical Provider Trainer (Current) Anticoagulant Treatment 02/20/2022 10:50 AM SWING TENDER - 02/20/2022 11:59 PM SWING TENDER Hospital Encounter Department of Laboratory Medicine in [address] [address] Soheila Zapata P.A.-CHowie, M.S. Atrial Fibrillation Unspecified; Monitoring For Therapeutic Drug Therapy; Care Home (Current) Anticoagulant Treatment Discharge Disposition: Home or Self Care 02/20/2022 11:30 AM SWING TENDER Anticoagulation Visit Department of Anticoagulation in [address] [address] Soheila Zapata P.A.-C., M.S. Atrial Fibrillation Unspecified (Primary Dx); Monitoring For Therapeutic Drug Therapy; Clinical Provider Trainer (Current) Anticoagulant Treatment 02/13/2022 11:20 AM SWING TENDER - 02/13/2022 11:59 PM SWING TENDER Hospital Encounter Department of Laboratory Medicine in [address] [address] Soheila Zapata P.A.-C., M.S. Atrial Fibrillation Unspecified; Monitoring For Therapeutic Drug Therapy; Clinical Provider Trainer (Current) Anticoagulant Treatment Discharge Disposition: Home or Self Care 02/13/2022 12:00 PM SWING TENDER Anticoagulation Visit Department of Anticoagulation in [address] [address] Soheila Zapata P.A.-C., M.S. Atrial Fibrillation Unspecified (Primary Dx); Monitoring For Therapeutic Drug Therapy; Clinical Provider Trainer (Current) Anticoagulant Treatment 02/09/2022 8:00 AM SWING TENDER Anticoagulation Visit Department of Anticoagulation in [place], [place] [address] [place] [address] Soheila Zapata P.A.-C., M.S. Atrial Fibrillation Unspecified (Primary Dx); Monitoring For Therapeutic Drug Therapy; Care Home (Current) Anticoagulant Treatment 02/06/2022 Clinical Communication Department of Anticoagulation in [place], [place] [address] [place] [phone] Trish Chambers R.N. Anticoagulation (Unable to reach ) 02/06/2022 2:40 PM SWING TENDER - 02/06/2022 11:59 PM SWING TENDER Hospital Encounter Department of Laboratory Medicine in [address] [phone] Soheila Zapata P.A.-C., M.S. Atrial Fibrillation Unspecified; Monitoring For Therapeutic Drug Therapy; Care Home (Current) Anticoagulant Treatment Discharge Disposition: Home or Self Care 02/03/2022 1:00 PM SWING TENDER Virtual Visit Department of Patient Education in [place], [place] [address] [place] [phone] Soheila Zapata P.A.-C., M.S. Genesis Hooper, M.S. Atrial Fibrillation Unspecified; Monitoring For Therapeutic Drug Therapy; Care Home (Current) Anticoagulant Treatment 02/02/2022 12:50 PM SWING TENDER Anticoagulation Visit Department of Anticoagulation in [place], [place] [address] [place] [phone] Soheila Zapata P.A.-C., M.S. Atrial Fibrillation Unspecified (Primary Dx); Monitoring For Therapeutic Drug Therapy; Care Home (Current) Anticoagulant Treatment 02/02/2022 12:06 PM SWING TENDER - 02/02/2022 11:59 PM SWING TENDER Hospital Encounter Department of Laboratory Medicine in [place], [place] [address], [place] [address] Soheila Zapata P.A.-C., M.S. Atrial Fibrillation Unspecified; Monitoring For Therapeutic Drug Therapy; Clinical Provider Trainer (Current) Anticoagulant Treatment Discharge Disposition: Home or Self Care 01/23/2022 3:40 PM SWING TENDER - 01/23/2022 11:59 PM SWING TENDER Hospital Encounter Department of Laboratory Medicine in [place], [place] [address], [place] [address] Soheila Zapata P.A.-C., M.S. Atrial Fibrillation Unspecified; Monitoring For Therapeutic Drug Therapy; Clinical Provider Trainer (Current) Anticoagulant Treatment Discharge Disposition: Home or Self Care 01/23/2022 4:20 PM SWING TENDER Anticoagulation Visit Department of Anticoagulation in [place], [place] [address] [place] [phone] Soheila Zapata P.A.-C., M.S. Atrial Fibrillation Unspecified (Primary Dx); Monitoring For Therapeutic Drug Therapy; Clinical Provider Trainer (Current) Anticoagulant Treatment 01/20/2022 Clinical Communication Department of Anticoagulation in [place], [place] [address] [place] [phone] Iris Singh Anticoagulation (Unable to reach ) 01/16/2022 10:50 AM SWING TENDER Anticoagulation Visit Department of Anticoagulation in [place], [place] [address] [place] [phone] Soheila Zapata P.A.-C., M.S. Atrial Fibrillation Unspecified (Primary Dx); Monitoring For Therapeutic Drug Therapy; Care Home (Current) Anticoagulant Treatment 01/15/2022 Clinical Communication Department of Anticoagulation in [place], [place] [address] [place] [phone] Angela Shukla R.N. Anticoagulation (Unable to reach) 01/15/2022 11:20 AM SWING TENDER - 01/15/2022 11:59 PM SWING TENDER Hospital Encounter Department of Laboratory Medicine in [address] [phone] Soheila Zapata P.A.-C., M.S. Atrial Fibrillation Unspecified; Monitoring For Therapeutic Drug Therapy; Clinical Provider Trainer (Current) Anticoagulant Treatment Discharge Disposition: Home or Self Care 01/14/2022 11:30 AM SWING TENDER Office Visit Department of Physical Medicine and Rehabilitation in [place], [place] [address] [phone] Eder Torres M.D. 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 Atrial Fibrillation Unspecified (Primary Dx); Monitoring For Therapeutic Drug Therapy; Care Home (Current) Anticoagulant Treatment 01/12/2022 1:40 PM SWING TENDER - 01/12/2022 11:59 PM SWING TENDER Hospital Encounter Department of Laboratory Medicine in [place], [place] [address] [place] [phone] Soheila Zapata P.A.-Ashish., M.S. Atrial Fibrillation Unspecified; Monitoring For Therapeutic Drug Therapy; Clinical Provider Trainer (Current) Anticoagulant Treatment Discharge Disposition: Home or Self Care 01/07/2022 Clinical Communication Department of Anticoagulation in [place], [place] [address] [place] [address] Soham Chino, R.N. Anticoagulation (Welcome call) 01/06/2022 Orders Only Department of Anticoagulation in [place], [place] [address] [place] [address] Soham Chino, R.N. Atrial Fibrillation Unspecified (Primary Dx); Care Home (Current) Anticoagulant Treatment 12/30/2021 2:09 PM CDT - 12/30/2021 11:59 PM CDT Hospital Encounter Department of Laboratory Medicine in [place], [place] [address] [address] Roberto Dumont APRN, C.N.P. Cardiomyopathy Dilated (HCC); Irregular Pulse Discharge Disposition: Home or Self Care 12/30/2021 3:00 PM CDT Nurse Only Department of Family Medicine, [facility], in [place], [place] [address] [phone] Soheila Zapata P.A.-C., M.S. Nga Gallagher, L.P.N. Nurse Visit (BP check with home device validation) 12/30/2021 1:30 PM CDT Office Visit Department of Cardiovascular Diseases in [address] [phone] Roberto Dumont APRN CHowieNHowiePHowie Cardiomyopathy Dilated (HCC) (Primary Dx); Irregular Pulse; Hypertensive Heart With Heart Failure And Chronic Kidney Disease (CKD) Stage 3a Glomerular Filtration Rate (GFR) 45 To 59 (HCC); Atrial Fibrillation Other Persistent (HCC) 12/25/2021 2:25 PM CDT - 12/25/2021 4:01 PM CDT Hospital Encounter Department of Radiology in [address] [address] Eder Torres M.D. Lumbago With Sciatica Left Side; Spondylolysis Lumbar Region Discharge Disposition: Home or Self Care 12/17/2021 2:00 PM CDT Comprehensive Visit Department of Physical Medicine and Rehabilitation in [address] [address] Eder Torres M.D. Spondylolysis Lumbar Region (Primary Dx); Lumbago With Sciatica Left Side; Spinal Stenosis Lumbar Region Without Neurogenic Claudication 12/14/2021 Refill Department of Internal Medicine in [address] [phone] Addie De La Garza M.D. Med Refill 12/10/2021 Orders Only Department of Internal Medicine in [address] [address] Soheila Zapata P.A.-C., M.S. Screening Colon Cancer Average Risk 12/09/2021 2:00 PM CDT Office Visit Department of Internal Medicine in [address] [address] Soheila Zapata P.A.-C., M.S. 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 Maintenance Health Adult Discharge Disposition: Home or Self Care 11/18/2021 Clinical Communication Department of Internal Medicine in [address] [phone] Soheila Zapata P.A.-C., M.S. Pain 11/06/2021 2:35 PM CDT - 11/06/2021 11:59 PM CDT Hospital Encounter Department of Laboratory Medicine in [address] [address] Soheila Zapata P.A.-C., M.S. Hypertensive Chronic Kidney Disease (CKD) Stage 3a Glomerular Filtration Rate (GFR) 45 To 59 (HCC); Hyperlipidemia On Treatment; Maintenance Health Adult; Screening Examination Diabetes Mellitus Discharge Disposition: Home or Self Care 11/06/2021 1:30 PM CDT Office Visit Department of Internal Medicine in [address] [address] Soheila Zapata P.A.-C., M.S. Radiculopathy Lumbar Fifth Left (Primary Dx); Radiculopathy Sacral; Cardiomyopathy Dilated (HCC); Hypertensive Chronic Kidney Disease (CKD) Stage 3a Glomerular Filtration Rate (GFR) 45 To 59 (HCC); Hyperlipidemia On Treatment; Screening Examination Diabetes Mellitus; Maintenance Health Adult 11/04/2021 9:30 AM CDT Office Visit Department of Internal Medicine in [address] [address] Stevan Bhakta D.O. Procedure And Treatment Not Carried Out Due To Patient Leaving Prior To Being Seen By Health Care Provider (Primary Dx) 10/16/2021 Clinical Communication Department of Internal Medicine in [address] [phone] Ermelinda Valle M.D. 10/16/2021 Clinical Communication Department of Internal Medicine in [address] [address] Addie De La Garza M.D. [place] referal 09/26/2021 Clinical Communication Department of Internal Medicine in [address] [address] Stevan Bhakta D.O. Form Review (Michell PT - 09/25/21) 09/17/2021 Clinical Communication Department of Internal Medicine in [address] [phone] Ermelinda Valle M.D. 08/21/2021 Clinical Communication Department of Internal Medicine in [address] [address] Stevan Bhakta D.O. Form Review (FMLA) 08/19/2021 9:45 AM CDT Office Visit Department of Internal Medicine in [address] [address] Ermelinda Valle M.D. Lumbago With Sciatica Left Side (Primary Dx) 08/15/2021 Clinical Communication Department of Internal Medicine in [address] [address] Stevan Bhakta, D.O. 08/12/2021 Orders Only [facility] M.D. Deficiency Estrogen Post Menopausal 07/23/[address] [facility] Stevan Bhakta, D.O. 06/26/2021 2:30 PM CDT Office Visit Department of Internal Medicine in [place], [place] [address], [place] [address] Addie De La Garza M.D. Migraine Headache (Primary Dx); Chronic Kidney Disease (CKD), Stage 3 Unspecified (HCC); Hyperlipidemia On Treatment; Rash; Hypertensive Chronic Kidney Disease (CKD) Stage 3a Glomerular Filtration Rate (GFR) 45 To 59 05/07/[address] [facility] Stevan Bhakta, D.O. Monitoring For Therapeutic Drug Therapy 01/14/2021 Orders Only [facility] PCP [facility] Stevan Bhakta, D.O. Screening Cancer Colon 01/14/2021 Orders Only [facility] Stevan Bhakta, D.O. Screening Cancer Colon 12/31/2020 Orders Only [facility] D[facility] M.D. 11/12/2020 [facility] Stevan Bhakta, D.O. Screening Mammogram Breast Cancer; Deficiency Estrogen Post Menopausal 11/04/2020 Clinical Communication Division of [facility], [facility], in [place], [place] [address] [place] [address] Nancy Lovett R.N. COVID Nurse Line 11/04/2020 Clinical Communication Department of Internal Medicine in [place], [place] [address] [place] [address] Stevan Bhakta, D.O. COVID Inquiry 08/19/2020 Refill Department of Internal Medicine in [address] [address] Stevan Bhakta D.O. Med Refill 06/19/2020 Clinical Communication Department of Internal Medicine in [address] [address] Stevan Bhakta D.O. 06/06/2020 Clinical Communication Department of Internal Medicine in [address] [address] Butch Velazquez M.D. 05/27/2020 3:17 PM CDT - 05/27/2020 11:59 PM CDT Hospital Encounter Department of Cardiovascular Diseases in [address] [address] Butch Velazquez M.D. Cardiomyopathy Dilated (HCC) Discharge Disposition: Home or Self Care 05/17/2020 10:45 AM SWING TENDER - 05/17/2020 10:53 AM SWING TENDER Hospital Encounter Department of Laboratory Medicine in [address] [address] Butch Velazquez M.D. Cardiomyopathy Dilated (HCC) Discharge Disposition: Home or Self Care 05/17/2020 10:54 AM SWING TENDER - 05/17/2020 11:59 PM SWING TENDER Hospital Encounter Department of Radiology in [address] [address] Butch Velazquez M.D. Pain Low Back Discharge Disposition: Home or Self Care 05/16/2020 2:00 PM SWING TENDER Office Visit Department of Internal Medicine in [address] [address] Butch Velazquez M.D. Personal History Of Infectious And Parasitic Disease (COVID-19) (Primary Dx); Radiculopathy Lumbar; Pain Low Back; Cardiomyopathy Dilated (HCC); Chronic Kidney Disease (CKD), Stage 3 Unspecified (HCC) 05/13/2020 Clinical Communication Department of Internal Medicine in [place], [place] [address] [place] [phone] Stevan Bhakta D.O. COVID Inquiry 03/14/2020 Orders Only Department of Internal Medicine in [place], [place] [address] [place] [phone] Butch Velazquez M.D. 02/12/2020 Orders Only [facility] Stevan Bhakta D.O. Deficiency Estrogen Post Menopausal; Screening Examination Diabetes Mellitus; Monitoring For Therapeutic Drug Therapy 11/27/2019 Clinical Communication Department of Internal Medicine in [place], [place] [address] [place] [phone] Stevna Bhakta D.O. Results 11/25/2019 External Outreach Department of Internal Medicine in [place], [place] [address] [place] [phone] Patrick Erickson D.O. Infection Upper Respiratory (Primary Dx) Discharge Disposition: Home or Self Care 11/25/2019 Clinical Communication Division of [facility] in [place], [place] [address] [place] [address] Medina Rocha R.N. COVID Nurse Line 09/29/2019 Clinical Communication Department of Internal Medicine in [place], [place] [address] [place] [phone] Stevan Bhakta D.O. Results 09/28/2019 External Outreach Department of Internal Medicine in [place], [place] [address] [place] [phone] Patrick Erickson D.O. Infection Upper Respiratory (Primary Dx) Discharge Disposition: Home or Self Care 08/23/2019 Orders Only [facility] PCP [facility] Stevan Bhakta D.O. Screening Mammogram Breast Cancer 12/14/2018 Orders Only [facility] PCP [facility] Stevan Bhakta D.O. Screening Examination Diabetes Mellitus; Monitoring For Therapeutic Drug Therapy 11/09/2018 Refill Department of Cardiovascular Diseases in [place], [place] [address] [place] [phone] Roberto Dumont APRN, C.N.P. Med Refill 10/26/2018 2:30 PM CDT Office Visit Department of Internal Medicine in [place], [place] [address] [place] [phone] Butch Velazquez M.D. Neuralgia Post Herpetic (Primary Dx) 09/23/2018 8:30 AM CDT Office Visit Urgent Care in [place], [place] [address] [place] [phone] Omi Talbot P.A.-C., P.A. Herpes Zoster (Primary Dx); Insect Bite Nonvenomous Abdominal Wall Initial 05/12/2018 Orders Only [facility] PCP [facility] Stevan Bhakta D.O. Screening Mammogram Breast Cancer 01/25/2018 Refill Department of Cardiovascular Diseases in [place], [place] [address] [place] [phone] Roberto Dumont APRN, C.N.P. Med Refill 01/05/2018 Orders Only Department of Internal Medicine in [place], [place] [address] [place] [phone] Stevan Bhakta, Jelani.O. Deficiency Estrogen Post Menopausal; Screening Mammogram Average Risk Patient 12/30/2017 12:30 PM CDT Office Visit Department of Cardiovascular Diseases in [place], [place] [address] [place] [phone] Tariq Estrella M.D. Brandl, Adam C, BALTAZAR CHowieN.P. Cardiomyopathy Dilated (HCC); Dyslipidemia 12/28/2017 12:00 PM CDT - 12/28/2017 11:59 PM CDT Hospital Encounter Department of Laboratory Medicine in [address] [phone] Tariq Estrella M.D. Cardiomyopathy Dilated (HCC) Discharge Disposition: Home or Self Care 07/29/2017 Clinical Communication Department of Cardiovascular Diseases in [address] [phone] Tariq Estrella M.D. Results 07/28/2017 8:34 AM CDT - 07/28/2017 11:59 PM CDT Hospital Encounter Department of Cardiovascular Diseases in [address] [phone] Tariq Estrella M.D. Cardiomyopathy Dilated (HCC) Discharge Disposition: Home or Self Care 07/21/2017 Refill Department of Cardiovascular Diseases in [address] [phone] Tariq Estrella M.D. Med Refill 07/19/2017 11:23 AM CDT - 07/19/2017 11:59 PM CDT Hospital Encounter Department of Radiology in [address] [phone] Bayron Fernandez M.D. Pain Low Back Acute Discharge Disposition: Home or Self Care 07/19/2017 12:00 PM CDT Office Visit Urgent Care in [address] [phone] Bayron Fernandez M.D. Pain Low Back Acute (Primary Dx) 07/02/2017 Clinical Communication Department of Cardiovascular Diseases in [address] [phone] Willis Lopez MHowieH.A. Communication 07/02/2017 Clinical Communication Department of Internal Medicine in [address] [phone] Elgin Armas M.D. Communication 07/02/2017 10:45 AM CDT Office Visit Department of Cardiovascular Diseases in [address] [phone] Tariq Estrella M.D. Cardiomyopathy Dilated (HCC) (Primary Dx); Dyslipidemia 06/30/2017 7:57 AM CDT - 06/30/2017 11:59 PM CDT Hospital Encounter Department of Laboratory Medicine in [address] [phone] Elgin Armas M.D. Failure Heart (HCC) Discharge Disposition: Home or Self Care 05/19/2017 Orders Only Department of Internal Medicine in [address] [phone] Elgin Armas M.D. Diabetes Mellitus Type 2 (HCC) (Primary Dx); Screening Mammogram Average Risk Patient 12/18/2016 Orders Only Department of Cardiovascular Diseases in [address] [phone] Tariq Estrella M.D. Failure Heart (HCC) 08/17/2016 [...] 06/24/2016 11:59 PM CDT Hospital Encounter HX [facility] ECHO Braulio Simmons M.D. 08/14/2015 8:34 [...] LAB Tariq Estrella M.D. 02/13/2015 10:51 AM SWING TENDER - 02/13/2015 11:59 PM SWING TENDER Hospital Encounter HX [facility] INTERNMED Braulio Simmons M.D. 02/11/2015 9:17 AM SWING TENDER - 02/11/2015 11:59 PM SWING TENDER Hospital Encounter HX [facility] LAB Braulio [...] Hospital Encounter HX [facility] INTERNRoberto Barnes APRN C.N.P. 09/24/2014 10:39 AM CDT - 09/24/2014 11:59 PM CDT Hospital Encounter HX [facility] INTERNRoberto Barnes APRN C.N.P. 09/21/2014 8:26 AM CDT - 09/21/2014 [...] 08/15/2014 11:59 PM CDT Hospital Encounter HX [facility] CARDIOLOG Tariq Estrella M.D. 08/08/2014 12:11 [...] Hospital Encounter HX NO MAPPING Beronica Rubin, P.A. 08/01/2014 3:29 PM CDT - 08/01/2014 11:59 PM CDT Hospital Encounter HX [facility] URGENTCAR Bayron Fernandez M.D. 07/20/2014 1:11 PM CDT - 07/20/2014 11:59 PM CDT Hospital Encounter HX [facility] Dutch Kay M.D. 10/25/2006 Hospital Encounter HX [facility] Sher Horn M.D. Allergies Active Allergy Reactions [...] muscle spasms. 30 tablet 06/27/19 22 Active [id number] 100 mg-150 mg- 50 mg-150 mg capsule [...] Treatment,Atrial Fibrillation Paroxysmal (HCC),Monitoring For Therapeutic Drug Therapy,Clinical Provider Trainer (Current) Anticoagulant Treatment Please take as directed [...] Mother abiel dahl Dementia Paternal Grandmother trina danataly Obesity Paternal Grandmother trina richard Asthma Son 1 janell alberto not sure Migraines Son 2 [place] Migraines Son 3 genesis Relation Name Status Comments Daughter 1 genesis alberto Daughter 2 Bre Mother abiel dahl Paternal Grandmother trina richard Son 1 janell alberto Son 2 [place] Son 3 genesis Social History Smoking Status as of 12/15/2023 Tobacco Use Types Packs/Day Years Used Date Smoking Tobacco: Never Assessed [facility] Utilities Answer Date Recorded In the past 12 months has e [employer], gas, oil, or water company threatened to [...] How often do you attend chur or muslim services? More than 4 times [...] Score 0 04/27/2023 [facility] Silver of Occupat ional Health - Occupational Stress [...] your living situation today? I have a [facility] place to live 07/01/2023 Education Answer [...] 163 cm (5' 4.17) 04/27/2023 11:14 AM SWING TENDER Body Mass Index 32.82 04/27/2023 11:14 AM SWING TENDER Plan of Treatment Upcoming Encounters Date Type Department Care Team (Latest Contact Info) Description 12/15/2023 4:50 PM CDT Appointment Department of Laboratory Medicine in [address] [phone] Patrick Erickson D.O. [address] [phone] 12/17/2023 3:50 PM CDT Appointment Department of Laboratory Medicine in [address] [phone] Patrick Erickson D.O. [address] [phone] 12/17/2023 4:20 PM CDT Anticoagulation Visit Department of Anticoagulation in [place], [place] [address] [place] [address] Soheila Zapata P.A.-C., M.S. [address] [place] [phone] 12/24/2023 10:10 AM CDT Appointment Department of Laboratory Medicine in [address] [phone] Patrick Erickson D.O. [address] [place] [phone] 12/28/2023 1:00 PM CDT Office Visit Department of Internal Medicine in [place], [place] [address] [place] [phone] Patrick Erickson D.O. [address] [place] [phone] Procedures Procedure Name Priority Date/Time Associated Diagnosis Comments INR REFLEX, POCT, B Routine 12/13/2023 4:21 PM CDT Atrial Fibrillation Paroxysmal (HCC) PROTHROMBIN [...] Drug Therapy Care Home (Current) Anticoagulant Treatment EXTM HOME SARS CORONAVIRUS-2 (COVID-19) ANTIGEN, V Routine 11/26/2023 6:00 PM CDT INR REFLEX, POCT, B Routine 11/22/2023 3:52 PM CDT 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 Or Unspecified Chronic Kidney Disease (HCC) Hyperlipidemia On Treatment Atrial Fibrillation Paroxysmal (HCC) Monitoring For Therapeutic Drug Therapy Clinical Provider Trainer (Current) Anticoagulant Treatment INR REFLEX, POCT, B [...] Paroxysmal (HCC) Monitoring For Therapeutic Drug Therapy Clinical Provider Trainer (Current) Anticoagulant Treatment INR REFLEX, POCT, B [...] Paroxysmal (HCC) Monitoring For Therapeutic Drug Therapy Clinical Provider Trainer (Current) Anticoagulant Treatment INR REFLEX, POCT, B Routine 09/24/2023 3:14 PM CDT Hypertensive Heart With Heart Failure And Chronic Kidney Disease (CKD) Stage 3a Glomerular Filtration Rate (GFR) 45 To 59 (HCC) Hyperlipidemia On Treatment Atrial Fibrillation Paroxysmal (HCC) Monitoring For Therapeutic Drug Therapy Clinical Provider Trainer (Current) Anticoagulant Treatment PROTHROMBIN TIME (PT), P Routine 09/21/2023 12:41 PM CDT INR REFLEX, POCT, B Routine 09/21/2023 12:39 PM CDT Hypertensive Heart With Heart Failure And Chronic Kidney Disease (CKD) Stage 3a Glomerular Filtration Rate (GFR) 45 To 59 (HCC) Hyperlipidemia On Treatment Atrial Fibrillation Paroxysmal (HCC) Monitoring For Therapeutic Drug Therapy Clinical Provider Trainer (Current) Anticoagulant Treatment INR REFLEX, POCT, B Routine 09/14/2023 1:00 PM CDT Hypertensive Heart With Heart Failure And Chronic Kidney Disease (CKD) Stage 3a Glomerular Filtration Rate (GFR) 45 To 59 (HCC) Hyperlipidemia On Treatment Atrial Fibrillation Paroxysmal (HCC) Monitoring For Therapeutic Drug Therapy Clinical Provider Trainer (Current) Anticoagulant Treatment INR REFLEX, POCT, B [...] Paroxysmal (HCC) Monitoring For Therapeutic Drug Therapy Clinical Provider Trainer (Current) Anticoagulant Treatment INR REFLEX, POCT, B Routine 08/27/2023 2:01 PM CDT Hypertensive Heart With Heart Failure And Chronic Kidney Disease (CKD) Stage 3a Glomerular Filtration Rate (GFR) 45 To 59 (HCC) Hyperlipidemia On Treatment Atrial Fibrillation Paroxysmal (HCC) Monitoring For Therapeutic Drug Therapy Clinical Provider Trainer (Current) Anticoagulant Treatment INR REFLEX, POCT, B [...] Paroxysmal (HCC) Monitoring For Therapeutic Drug Therapy Clinical Provider Trainer (Current) Anticoagulant Treatment INR REFLEX, POCT, B [...] On Treatment Monitoring For Therapeutic Drug Therapy Clinical Provider Trainer (Current) Anticoagulant Treatment LIPID PANEL, S Routine [...] Paroxysmal (HCC) Monitoring For Therapeutic Drug Therapy Clinical Provider Trainer (Current) Anticoagulant Treatment INR REFLEX, POCT, B Routine 05/21/2023 2:55 PM CDT Atrial Fibrillation Paroxysmal (HCC) INR REFLEX, POCT, B Routine 05/07/2023 1:04 PM SWING TENDER Hypertensive Heart With Heart Failure And Chronic Kidney Disease (CKD) Stage 3a Glomerular Filtration Rate (GFR) 45 To 59 (HCC) Hyperlipidemia On Treatment Atrial Fibrillation Paroxysmal (HCC) Monitoring For Therapeutic Drug Therapy Clinical Provider Trainer (Current) Anticoagulant Treatment INR REFLEX, POCT, B Routine 04/30/2023 12:42 PM SWING TENDER Hypertensive Heart With Heart Failure And Chronic Kidney Disease (CKD) Stage 3a Glomerular Filtration Rate (GFR) 45 To 59 (HCC) Hyperlipidemia On Treatment Atrial Fibrillation Paroxysmal (HCC) Monitoring For Therapeutic Drug Therapy Care Home (Current) Anticoagulant Treatment INR REFLEX, POCT, B Routine 04/02/2023 2:53 PM SWING TENDER Hypertensive Heart With Heart Failure And Chronic Kidney Disease (CKD) Stage 3a Glomerular Filtration Rate (GFR) 45 To 59 (HCC) Hyperlipidemia On Treatment Atrial Fibrillation Paroxysmal (HCC) Monitoring For Therapeutic Drug Therapy Care Home (Current) Anticoagulant Treatment INR REFLEX, POCT, B Routine 03/19/2023 3:19 PM SWING TENDER Hypertensive Heart With Heart Failure And Chronic Kidney Disease (CKD) Stage 3a Glomerular Filtration Rate (GFR) 45 To 59 (HCC) Monitoring For Therapeutic Drug Therapy Atrial Fibrillation Paroxysmal (HCC) INR REFLEX, POCT, B Routine 03/12/2023 3:11 PM SWING TENDER Atrial Fibrillation Paroxysmal (HCC) Monitoring For Therapeutic Drug Therapy Clinical Provider Trainer (Current) Anticoagulant Treatment INR REFLEX, POCT, B Routine 03/09/2023 2:21 PM SWING TENDER Atrial Fibrillation Paroxysmal (HCC) Monitoring For Therapeutic Drug Therapy Care Home (Current) Anticoagulant Treatment INR REFLEX, POCT, B Routine 03/05/2023 4:19 PM SWING TENDER Atrial Fibrillation Paroxysmal (HCC) Monitoring For Therapeutic Drug Therapy Care Home (Current) Anticoagulant Treatment INR REFLEX, POCT, B Routine 02/24/2023 5:02 PM SWING TENDER Atrial Fibrillation Paroxysmal (HCC) Monitoring For Therapeutic Drug Therapy Clinical Provider Trainer (Current) Anticoagulant Treatment EXTM HOME SARS CORONAVIRUS-2 (COVID-19) ANTIGEN, V Routine 02/24/2023 12:58 PM SWING TENDER INR REFLEX, POCT, B Routine 02/16/2023 10:12 AM SWING TENDER Atrial Fibrillation Paroxysmal (HCC) Monitoring For Therapeutic Drug Therapy Care Home (Current) Anticoagulant Treatment INR REFLEX, POCT, B Routine 02/02/2023 12:08 PM SWING TENDER Atrial Fibrillation Paroxysmal (HCC) Monitoring For Therapeutic Drug Therapy Care Home (Current) Anticoagulant Treatment INR REFLEX, POCT, B Routine 01/26/2023 9:30 AM SWING TENDER Atrial Fibrillation Paroxysmal (HCC) Monitoring For Therapeutic Drug Therapy Clinical Provider Trainer (Current) Anticoagulant Treatment INR REFLEX, POCT, B Routine 12/15/2022 11:37 AM CDT Atrial Fibrillation Paroxysmal (HCC) Monitoring For Therapeutic Drug Therapy Clinical Provider Trainer (Current) Anticoagulant Treatment INR REFLEX, POCT, B Routine 11/17/2022 2:18 PM CDT Atrial Fibrillation Paroxysmal (HCC) Monitoring For Therapeutic Drug Therapy Clinical Provider Trainer (Current) Anticoagulant Treatment INR REFLEX, POCT, B [...] Drug Therapy Care Home (Current) Anticoagulant Treatment BASIC METABOLIC PANEL, S/P Routine 10/12/2022 10:09 AM CDT Hypertensive Heart With Heart Failure And Chronic Kidney Disease (CKD) Stage 3a Glomerular Filtration Rate (GFR) 45 To 59 (HCC) INR REFLEX, POCT, B Routine 10/12/2022 10:02 AM CDT Atrial Fibrillation Paroxysmal (HCC) Monitoring For Therapeutic Drug Therapy Clinical Provider Trainer (Current) Anticoagulant Treatment VA URINALYSIS AUTO W MICRO Routine 10/12/2022 10:02 [...] Unspecified (HCC) Monitoring For Therapeutic Drug Therapy Care Home (Current) Anticoagulant Treatment INR REFLEX, POCT, B Routine 08/10/2022 11:16 AM CDT Atrial Fibrillation Unspecified (HCC) Monitoring For Therapeutic Drug Therapy Care Home (Current) Anticoagulant Treatment INR REFLEX, POCT, B Routine 08/10/2022 11:15 AM CDT INR REFLEX, POCT, B Routine 07/27/2022 3:15 PM CDT Atrial Fibrillation Unspecified (HCC) Monitoring For Therapeutic Drug Therapy Care Home (Current) Anticoagulant Treatment INR REFLEX, POCT, B Routine 07/27/2022 3:14 PM CDT INR REFLEX, POCT, B Routine 06/29/2022 10:21 AM CDT INR REFLEX, POCT, B Routine 06/29/2022 10:21 AM CDT Atrial Fibrillation Unspecified Monitoring For Therapeutic Drug Therapy Clinical Provider Trainer (Current) Anticoagulant Treatment INR REFLEX, POCT, B Routine 06/19/2022 10:34 AM CDT Atrial Fibrillation Unspecified Monitoring For Therapeutic Drug Therapy Care Home (Current) Anticoagulant Treatment INR REFLEX, POCT, B Routine 06/19/2022 10:32 AM CDT PROTHROMBIN TIME (PT), P Routine 06/15/2022 10:13 AM CDT INR REFLEX, POCT, B Routine 06/15/2022 10:09 AM CDT INR REFLEX, POCT, B Routine 06/15/2022 10:09 AM CDT Atrial Fibrillation Unspecified Monitoring For Therapeutic Drug Therapy Care Home (Current) Anticoagulant Treatment INR REFLEX, POCT, B Routine 06/09/2022 10:16 AM CDT Atrial Fibrillation Unspecified Monitoring For Therapeutic Drug Therapy Care Home (Current) Anticoagulant Treatment PROTHROMBIN TIME (PT), P Routine 06/09/2022 10:16 AM CDT INR REFLEX, POCT, B Routine 06/09/2022 10:09 AM CDT (TTE) 2D ECHO DOPPLER COLOR Routine 06/01/2022 8:09 AM CDT Cardiomyopathy Dilated (HCC) INR REFLEX, POCT, B Routine 05/12/2022 10:01 AM SWING TENDER Atrial Fibrillation Unspecified Monitoring For Therapeutic Drug Therapy Clinical Provider Trainer (Current) Anticoagulant Treatment INR REFLEX, POCT, B Routine 05/12/2022 10:00 AM SWING TENDER INR REFLEX, POCT, B Routine 04/28/2022 2:50 PM SWING TENDER INR REFLEX, POCT, B Routine 04/28/2022 2:50 PM SWING TENDER Atrial Fibrillation Unspecified Monitoring For Therapeutic Drug Therapy Clinical Provider Trainer (Current) Anticoagulant Treatment INR REFLEX, POCT, B Routine 04/21/2022 10:55 AM SWING TENDER Atrial Fibrillation Unspecified Monitoring For Therapeutic Drug Therapy Care Home (Current) Anticoagulant Treatment INR REFLEX, POCT, B Routine 04/21/2022 10:54 AM SWING TENDER HOLTER MONITOR - IN CLINIC SIZER HAND Routine 04/08/2022 2:11 AM SWING TENDER Atrial Fibrillation Other Persistent (HCC) INR REFLEX, POCT, B Routine 04/07/2022 10:32 AM SWING TENDER Atrial Fibrillation Unspecified Monitoring For Therapeutic Drug Therapy Clinical Provider Trainer (Current) Anticoagulant Treatment INR REFLEX, POCT, B Routine 04/07/2022 10:31 AM SWING TENDER INR REFLEX, POCT, B Routine 03/31/2022 12:03 PM SWING TENDER Atrial Fibrillation Unspecified Monitoring For Therapeutic Drug Therapy Clinical Provider Trainer (Current) Anticoagulant Treatment INR REFLEX, POCT, B Routine 03/31/2022 12:02 PM SWING TENDER PROTHROMBIN TIME (PT), P Routine 03/24/2022 1:08 PM SWING TENDER INR REFLEX, POCT, B Routine 03/24/2022 1:06 PM SWING TENDER Atrial Fibrillation Unspecified Monitoring For Therapeutic Drug Therapy Care Home (Current) Anticoagulant Treatment INR REFLEX, POCT, B Routine 03/24/2022 1:05 PM SWING TENDER INR REFLEX, POCT, B Routine 03/16/2022 10:08 AM SWING TENDER INR REFLEX, POCT, B Routine 03/16/2022 10:08 AM SWING TENDER Atrial Fibrillation Unspecified Monitoring For Therapeutic Drug Therapy Care Home (Current) Anticoagulant Treatment INR REFLEX, POCT, B Routine 03/06/2022 11:06 AM SWING TENDER Atrial Fibrillation Unspecified Monitoring For Therapeutic Drug Therapy Care Home (Current) Anticoagulant Treatment INR REFLEX, POCT, B Routine 03/06/2022 11:05 AM SWING TENDER INR REFLEX, POCT, B Routine 02/20/2022 11:30 AM SWING TENDER Atrial Fibrillation Unspecified Monitoring For Therapeutic Drug Therapy Care Home (Current) Anticoagulant Treatment INR REFLEX, POCT, B Routine 02/20/2022 11:29 AM SWING TENDER INR REFLEX, POCT, B Routine 02/13/2022 11:36 AM SWING TENDER Atrial Fibrillation Unspecified Monitoring For Therapeutic Drug Therapy Clinical Provider Trainer (Current) Anticoagulant Treatment INR REFLEX, POCT, B Routine 02/13/2022 11:35 AM SWING TENDER INR REFLEX, POCT, B Routine 02/06/2022 2:50 PM SWING TENDER INR REFLEX, POCT, B Routine 02/06/2022 2:50 PM SWING TENDER Atrial Fibrillation Unspecified Monitoring For Therapeutic Drug Therapy Care Home (Current) Anticoagulant Treatment INR REFLEX, POCT, B Routine 02/02/2022 12:15 PM SWING TENDER INR REFLEX, POCT, B Routine 02/02/2022 12:15 PM SWING TENDER Atrial Fibrillation Unspecified Monitoring For Therapeutic Drug Therapy Clinical Provider Trainer (Current) Anticoagulant Treatment INR REFLEX, POCT, B Routine 01/23/2022 3:58 PM SWING TENDER Atrial Fibrillation Unspecified Monitoring For Therapeutic Drug Therapy Clinical Provider Trainer (Current) Anticoagulant Treatment INR REFLEX, POCT, B Routine 01/23/2022 3:57 PM SWING TENDER INR REFLEX, POCT, B Routine 01/15/2022 11:43 AM SWING TENDER Atrial Fibrillation Unspecified Monitoring For Therapeutic Drug Therapy Clinical Provider Trainer (Current) Anticoagulant Treatment INR REFLEX, POCT, B Routine 01/15/2022 11:42 AM SWING TENDER INR REFLEX, POCT, B Routine 01/12/2022 2:19 PM SWING TENDER INR REFLEX, POCT, B Routine 01/12/2022 2:19 PM SWING TENDER Atrial Fibrillation Unspecified Monitoring For Therapeutic Drug Therapy Clinical Provider Trainer (Current) Anticoagulant Treatment ECG Routine 12/30/2021 2:24 [...] 59 (HCC) HOLTER MONITOR - IN CLINIC SIZER HAND Routine 05/27/2020 3:59 PM CDT Cardiomyopathy Dilated (HCC) MR LUMBAR SPINE WITHOUT IV CONTRAST RAD - Routine (most inpatients and all outpatients) 05/17/2020 11:41 AM SWING TENDER Pain Low Back LIPID PANEL, S Routine 05/17/2020 10:53 AM SWING TENDER Cardiomyopathy Dilated (HCC) THYROID-STIMULATING HORMONE-SENSITIVE (S-TSH) Routine 05/17/2020 10:53 AM SWING TENDER Cardiomyopathy Dilated (HCC) BASIC METABOLIC PANEL, S/P Routine 05/17/2020 10:53 AM SWING TENDER Cardiomyopathy Dilated (HCC) CBC WITH DIFFERENTIAL, B Routine 05/17/2020 10:53 AM SWING TENDER Cardiomyopathy Dilated (HCC) SARS CORONAVIRUS-2 RNA, V [...] ELECTROLYTE PANEL, S Routine 02/11/2015 9:35 AM SWING TENDER BUN (BLOOD UREA NITROGEN), S/P Routine 02/11/2015 9:35 AM SWING TENDER CREATININE WITH EGFR, S/P Routine 02/11/2015 9:35 AM SWING TENDER NT-PRO B-TYPE NATRIURETIC PEPTIDE (BNP), S Routine [...] Routine 08/01/2014 4:09 PM CDT Results * INR Reflex, POCT, Blood (12/13/2023 4:21 PM CDT) Only the most recent of85 resultswithin the time period is included. INR Reflex, POCT, B 2.3 12/13/2023 4:20 PM CDT [id number] Comment: ----ADDITIONAL INFORMATION---- Standard intensity warfarin therapeutic range: 2.0 to 3.0 ?? High intensity warfarin therapeutic range: 2.5 to 3.5 Blood (Blood, Capillary) 12/13/2023 4:21 PM CDT 12/13/2023 4:21 PM CDT Patrick Erickson D.O. LAB POCT ORDERABLE S - DEVICE Performing Organization Address City/[facility]/ZIP Co de Phone Number [facility] [address] [place] [address], [place] [id number] [facility] [place] [address] [facility] [place] [address] * (ABNORMAL) Prothrombin Time (PT) (12/03/2023 3:01 [...] D.O. LAB BLOOD ADD-ON Performing Organization Address City/[facility]/ZIP Co de Phone Number [facility] [address] [place] [address], [place] OW[place] [facility] [place] [address] [place] [address] * (ABNORMAL) EXT Home SARS Coronavirus-2 (COVID-19) Antigen (11/26/2023 6:00 PM CDT) Only the most recent of2 resultswithin the time period is included. EXT Home SARS-CoV-2 Antigen Presumptive Positive(A) Presumptive Negative OTHER (SPECIFY IN RED HAT ENGINEER) Swab 11/26/2023 6:00 PM CDT Historical Provider LAB MICROBIOLOGY - G ENERAL ORDERABLES OTHER (SPECIFY IN RED HAT ENGINEER) N/A * Lipid Panel (07/06/2023 8:46 AM [...] Patrick Erickson D.O. LAB BLOOD ADD-ON [facility] [address] [place] [address], [facility] [place] [address] [place] [address] * (ABNORMAL) CBC with Differential, Blood (07/06/2023 [...] Patrick Erickson D.O. LAB BLOOD ADD-ON [facility] [address] [place] [address], [place] [id number] [facility] [place] [address] [place] [address] * (ABNORMAL) Glucose, Fasting (07/06/2023 8:46 AM CDT) Glucose, P 131(H) 70 - 100 mg/dL 07/06/2023 2:02 PM CDT OWAT Last Intake 13 hr 07/06/2023 1:09 PM CDT OWAT Blood (Blood, Venous) 07/06/2023 8:46 AM CDT 07/06/2023 1:09 PM CDT Patrick Erickson D.O. LAB BLOOD NON ADD- ON [facility] [address] [place] [address], [facility] OWAT [facility] [place] [address] [place] [address] * Basic Metabolic Panel (07/06/2023 8:46 AM [...] Patrick Erickson D.O. LAB BLOOD ADD-ON [facility] [address] [place] [address], [facility] OWAT [facility] [place] [address] [place] [address] * ECG 12 Lead (06/22/2023 10:27 AM CDT) Only the most recent of3 resultswithin the time period is included. Ventricular Rate ECG/Min 43 BPM MUSE VA Interval 150 ms MUSE QRSD Interval 110 ms MUSE QT Interval 500 ms MUSE QTC Interval 422 ms MUSE P [place] 56 degrees MUSE R [place] 6 degrees MUSE T Wave [place] 269 degrees MUSE 06/22/2023 10:2 7 AM [...] have occurred Reviewed by ASHIA Romero Roberto Hinojosa Tim LEDESMA, C.N.P. ECG ORDERABLE S MUSE NA * [...] 8.0 10/12/2022 10:32 AM CDT FB60 Specific [place] 1.010 1.001 - 1.035 10/12/2022 10:32 AM CDT FB60 Urobilinogen 0.2 0.2 - 1.0 mg/dL 10/12/2022 10:32 AM CDT FB60 Urine (Urine, Midstream) 10/12/2022 10:02 AM CDT 10/12/2022 10:19 AM CDT Soheila Zapata P.A.-C., M.S. LAB URIN E ORDERABLES Performing Organization Address City/[facility] Co de Phone Number [facility] [address] [place] [address], [facility] FB60 [facility] in [address] [address] * (ABNORMAL) Microscopic Manual (10/12/2022 10:02 AM [...] LAB URIN E ORDERABLES Performing Organization Address [facility] Co de Phone Number [facility] [address] [place] [address], [facility] FB60 [facility] in [address] [address] * (ABNORMAL) Albumin, Random, Urine (10/12/2022 10:02 [...] Zapata P.A.-C., M.S. LAB URIN E ORDERABLES [facility] [address] [place] [address], [facility] OWAT [facility] in [place] [address] [place] [address] * (TTE) 2D ECHO DOPPLER COLOR (06/01/2022 [...] were performed but not reported based on rice farmworker's judgment. Mild generalized left ventricular hypokinesis. Normal [...] were performed but not reported based on rice farmworker'sjudgment. Mild generalized left ventricular hypokinesis. Normal leftventricular [...] Documents. Roberto Dumont APRN C.N.PHowie CV ECHO PROCE DURES * HOLTER MONITOR - IN CLINIC SIZER HAND (04/08/2022 2:11 AM SWING TENDER) Only the most recent of2 resultswithin the [...] Duration 0 duration INFOBION IC MOME AF Wyn[place] 0 percent INFOBIONIC MOME Symptom Count 1 count INFOBI ONIC MOME 04/07/2022 10:3 2 AM SWING TENDER Narrative INFOBIONIC MOME - 04/10/2022 9:40 AM SWING TENDER [place] 1. The basic rhythm was sinus with [...] were noted in or around these events. Retail Team Leader: Smita Venegas/[id number] Fellow: Bradly Davenport MD Procedure Note Rachana Silva M.D., Ph.D. - 04/10/2022 [place] 1. The basic rhythm was sinus with [...] bigeminywere noted in or around these events. Retail Team Leader: Smita Venegas/[id number] Fellow: Bradly Davenport MD Roberto Ashish Dumont APRN, C.N.P. CV CARDIAC SE RVICES PROCEDURES INFOBIONIC [...] infiltrate type: lidocaine Eder MAN FLUOROSCOPY PROCEDURES 0157 LOS SEMN * BI Breast Screening Bilateral [...] LAB BLOO D ADD-ON Performing Organization Address City/[facility]/ZIP Co de Phone Number [facility] [address] [place] [id number], [facility] in [place] [address] [place] [address] * Sodium (11/06/2021 2:48 PM CDT) Only the most recent of3 resultswithin the time period is included. Sodium, P 142 135 - 145 mmol/L 11/06/2021 3:22 PM CDT OW[place] Blood (Blood, Venous) 11/06/2021 2:48 PM CDT 11/06/2021 2:52 PM CDT Soheila Zapata P.A.-C., M.S. LAB BLOO D ADD-ON Performing Organization Address City/[facility]/ZIP Co de Phone Number [facility] [address] [place] [address], [facility] [place] [address] [place] [address] * Potassium (11/06/2021 2:48 PM CDT) Only the most recent of5 resultswithin the time period is included. Potassium, P 4.2 3.6 - 5.2 mmol/L 11/06/2021 3:22 PM CDT [place] Blood (Blood, Venous) 11/06/2021 2:48 PM CDT 11/06/2021 2:52 PM CDT Soheila Zapata P.A.-C. MHowieSHowie LAB BLOO D ADD-ON Performing Organization Address [facility] Co de Phone Number [facility] [address] [place] [address], [facility] OWAT [facility] [place] [address] [place] [address] * (ABNORMAL) Hemoglobin A1c (11/06/2021 2:48 PM [...] LAB BLOO D ADD-ON Performing Organization Address [facility] Co de Phone Number [facility] [address] [place] [address], [facility] OWAT [facility] [place] [address] [place] [address] * (ABNORMAL) Creatinine with Estimated GFR (11/06/2021 [...] Zapata P.A.-C., M.S. LAB BLOO D ADD-ON [facility] [address] [place] [address], [facility] OWAT [facility] [place] [address] [place] [address] * MR Lumbar Spine without IV Contrast (05/17/2020 11:41 AM SWING TENDER) Anatomical Region Laterality Modality Lumbar Spine, Neuroradiology RST LOS, Neuroradiology ARZ LOS, Neuroradiology FLA LOS N/A Magnetic Resonance 05/17/2020 12:5 1 PM SWING TENDER Impressions 05/17/2020 1:09 PM SWING TENDER 1. Degenerative spondylosis lumbar spine, as detailed, including essentially severe narrowing of the spinal canal at L4-L5. 2. A left-sided disc extrusion/protrusion at L5-S1 could result in L5 radicular symptoms. 3. Incidental imaging of a 8.6 cm cyst in the spleen probably representing sequela of remote injury or inflammatory insult. Narrative 05/17/2020 1:09 PM SWING TENDER EXAM: ??MR LUMBAR SPINE WITHOUT IV CONTRAST [...] few internal septations is best seen on electrical instrument repairer imaging (series 1, images 15-18). This is [...] but does not compress the exiting left [id number] root (series 5, image 2-4). No right [...] few internal septations is best seen on electrical instrument repairer imaging (series 1, images 15-18). Thisis probably [...] disc extrusion/protrusion at L5-S1 could result in [id number] symptoms. 3. Incidental imaging of a 8.6 cm cyst in the spleen probablyrepresenting sequela of remote injury or inflammatory insult. Butch Velazquez M.D. [facility] MRI PROCEDURES * SARS Coronavirus-2 RNA, V [...] is performed using the Aptima SARS-CoV-2 assay ([employer] which has received Emergency Use Authorization (EUA) by the U.S. Food and Drug Administration. Fact sheets for this Emergency Use Authorization (EUA) assay can be found at the following links: For Healthcare Providers: https://www.fda.gov/media/930165/download For Patients: https://www.fda.gov/media/032927/download Varies (Nasopharynx) 11/25/2019 1:05 PM CDT 11/25/2019 5:08 PM CDT Patrick Erickson D.O. LAB MICROBIOLOGY - GENERAL ORDERABLES [facility] [address] [place] [address], [facility] MKTO [facility] [place] [address] [place] [address] * Hemoglobin (12/28/2017 12:20 PM CDT) Hemoglobin 12.9 11.6 - 15.0 g/dL 12/28/2017 12:[address] [facility] Blood (Blood, Venous) 12/28/2017 12:20 PM CDT 12/28/2017 12:34 PM CDT Tariq Estrella M.D. LAB BLOOD ADD-ON [facility] [address] [place] [address], [facility] * (TTE) 2D ECHO DOPPLER [...] - 15.0 g/dL 06/30/2017 8:[address] [facility] Hematocrit 39.5 35.5 - 44.9 % 06/30/2017 8:[address] [facility] Erythrocytes 4.46 3.92 - 5.13 x10(12)/L 06/30/2017 8:[address] [facility] MCV 88.6 78.2 - 97.9 fL 06/30/2017 8:40 AM CDT [facility] RBC Distrib Width 13.6 12.2 - 16.1 % 06/30/2017 8:[address] [facility] Platelet Count 174 157 - 371 x10(9)/L 06/30/2017 8:[address] [facility] Leukocytes 6.7 3.4 - 9.6 x10(9)/L 06/30/2017 8:[address] [facility] Blood 06/30/2017 8:20 AM CDT 06/30/2017 8:36 AM CDT Tariq Estrella M.D. LAB BLOOD ADD-ON Performing Organization Address City/[facility]/ZIP Co de Phone Number [facility] [address] * BUN (Blood Urea Nitrogen) (06/30/2017 8:20 AM CDT) Only the most recent of5 resultswithin the time period is included. BUN (Blood Urea Nitrogen), S 15 6 - 21 mg/dL 06/30/2017 11:[address] [facility] Blood 06/30/2017 8:20 AM CDT 06/30/2017 8:36 AM CDT Tariq Estrella M.D. LAB BLOOD ADD-ON Performing Organization Address [facility] de Phone Number [facility] [address] * Automated Differential (08/17/2016 9:54 AM CDT) [...] M.D. LAB BLOOD ADD-ON Performing Organization Address City/[facility] Co de Phone Number POWERCHART * ALT (Alanine Aminotransferase) (07/09/2016 10:59 AM CDT) Alanine Amniotransferas e, LD 16 7 - 45 UNITL POWERCHART Blood 07/09/2016 10:5 9 AM CDT Tariq Estrella M.D. LAB BLOOD ADD-ON Performing Organization Address City/[facility] Co de Phone Number POWERCHART * AST (Aspartate Aminotransferase) (07/09/2016 10:59 AM CDT) Aspartate Aminotransferase (AST), S 16 8 - 43 UNITL POWERCHART Blood 07/09/2016 10:5 9 AM CDT Tariq Estrella M.D. LAB BLOOD ADD-ON Performing Organization Address [facility] Co de Phone Number POWERCHART [...] M.D. LAB BLOOD ADD-ON Performing Organization Address [facility] de Phone Number POWERCHART * ECHOCARDIOLOGY IMAGE [...] 3.5 PGML POWERCHART Comment: Test Performed by: [place] [address] Checking Department Supervisor: Raúl Loyola II, M.D., Ph.D. Blood 08/29/2014 9:34 AM CDT Braulio Simmons M.D. LAB BLOOD ADD-O N Performing Organization Address City/State/[facility] Co de Phone Number POWERCHART * T4 (Thyroxine), Free (08/29/2014 9:34 AM CDT) T4 (Thyroxine), Free, S 0.92 0.90 - 1.70 NGDL POWERCHART Blood 08/29/2014 9:34 AM CDT Braulio Simmons M.D. LAB BLOOD ADD-O N Performing Organization Address [facility] Co de Phone Number POWERCHART * Ferritin (08/15/2014 7:52 AM CDT) Ferritin, S 42.8 11.0 - 307.0 NGML POWERCHART Blood 08/15/2014 7:52 AM CDT Tariq Estrella M.D. LAB BLOOD ADD-ON Performing Organization Address City/State/[facility] Co de Phone Number POWERCHART * Echo Transthoracic [...] (HCC) 12/30/2021 Atrial Fibrillation Unspecified (HCC) 01/06/2022 Clinical Provider Trainer (Current) Anticoagulant Treatment 01/06/2022 Atrial Fibrillation Unspecified (HCC) 01/07/2022 Monitoring For Therapeutic Drug Therapy 01/07/2022 Clinical Provider Trainer (Current) Anticoagulant Treatment 01/07/2022 Atrial Fibrillation Unspecified (HCC) 01/12/2022 Monitoring For Therapeutic Drug Therapy 01/12/2022 Clinical Provider Trainer (Current) Anticoagulant Treatment 01/12/2022 Atrial Fibrillation Unspecified (HCC) 01/12/2022 Monitoring For Therapeutic Drug Therapy 01/12/2022 Care Home (Current) Anticoagulant Treatment 01/12/2022 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 01/14/2022 Radiculopathy Lumbosacral 01/14/2022 Atrial Fibrillation Unspecified (HCC) 01/15/2022 Monitoring For Therapeutic Drug Therapy 01/15/2022 Clinical Provider Trainer (Current) Anticoagulant Treatment 01/15/2022 Atrial Fibrillation Unspecified (HCC) 01/15/2022 Monitoring For Therapeutic Drug Therapy 01/15/2022 Clinical Provider Trainer (Current) Anticoagulant Treatment 01/15/2022 Atrial Fibrillation Unspecified (HCC) 01/16/2022 Monitoring For Therapeutic Drug Therapy 01/16/2022 Care Home (Current) Anticoagulant Treatment 01/16/2022 Atrial Fibrillation Unspecified (HCC) 01/23/2022 Monitoring For Therapeutic Drug Therapy 01/23/2022 Care Home (Current) Anticoagulant Treatment 01/23/2022 Atrial Fibrillation Unspecified (HCC) 01/23/2022 Monitoring For Therapeutic Drug Therapy 01/23/2022 Clinical Provider Trainer (Current) Anticoagulant Treatment 01/23/2022 Atrial Fibrillation Unspecified (HCC) 02/02/2022 Monitoring For Therapeutic Drug Therapy 02/02/2022 Clinical Provider Trainer (Current) Anticoagulant Treatment 02/02/2022 Atrial Fibrillation Unspecified (HCC) 02/02/2022 Monitoring For Therapeutic Drug Therapy 02/02/2022 Clinical Provider Trainer (Current) Anticoagulant Treatment 02/02/2022 Atrial Fibrillation Unspecified (HCC) 02/03/2022 Monitoring For Therapeutic Drug Therapy 02/03/2022 Clinical Provider Trainer (Current) Anticoagulant Treatment 02/03/2022 Atrial Fibrillation Unspecified (HCC) 02/06/2022 Monitoring For Therapeutic Drug Therapy 02/06/2022 Care Home (Current) Anticoagulant Treatment 02/06/2022 Atrial Fibrillation Unspecified (HCC) 02/09/2022 Monitoring For Therapeutic Drug Therapy 02/09/2022 Clinical Provider Trainer (Current) Anticoagulant Treatment 02/09/2022 Atrial Fibrillation Unspecified (HCC) 02/13/2022 Monitoring For Therapeutic Drug Therapy 02/13/2022 Care Home (Current) Anticoagulant Treatment 02/13/2022 Atrial Fibrillation Unspecified (HCC) 02/13/2022 Monitoring For Therapeutic Drug Therapy 02/13/2022 Care Home (Current) Anticoagulant Treatment 02/13/2022 Atrial Fibrillation Unspecified (HCC) 02/20/2022 Monitoring For Therapeutic Drug Therapy 02/20/2022 Care Home (Current) Anticoagulant Treatment 02/20/2022 Atrial Fibrillation Unspecified (HCC) 02/20/2022 Monitoring For Therapeutic Drug Therapy 02/20/2022 Care Home (Current) Anticoagulant Treatment 02/20/2022 Atrial Fibrillation Unspecified (HCC) 03/06/2022 Monitoring For Therapeutic Drug Therapy 03/06/2022 Care Home (Current) Anticoagulant Treatment 03/06/2022 Atrial Fibrillation Unspecified (HCC) 03/06/2022 Monitoring For Therapeutic Drug Therapy 03/06/2022 Clinical Provider Trainer (Current) Anticoagulant Treatment 03/06/2022 Atrial Fibrillation Unspecified (HCC) 03/16/2022 Monitoring For Therapeutic Drug Therapy 03/16/2022 Clinical Provider Trainer (Current) Anticoagulant Treatment 03/16/2022 Atrial Fibrillation Unspecified (HCC) 03/16/2022 Monitoring For Therapeutic Drug Therapy 03/16/2022 Clinical Provider Trainer (Current) Anticoagulant Treatment 03/16/2022 Atrial Fibrillation Unspecified (HCC) 03/24/2022 Monitoring For Therapeutic Drug Therapy 03/24/2022 Care Home (Current) Anticoagulant Treatment 03/24/2022 Atrial Fibrillation Unspecified (HCC) 03/24/2022 Monitoring For Therapeutic Drug Therapy 03/24/2022 Clinical Provider Trainer (Current) Anticoagulant Treatment 03/24/2022 Atrial Fibrillation Unspecified (HCC) 03/27/2022 Monitoring For Therapeutic Drug Therapy 03/27/2022 Care Home (Current) Anticoagulant Treatment 03/27/2022 Atrial Fibrillation Unspecified (HCC) 03/31/2022 Monitoring For Therapeutic Drug Therapy 03/31/2022 Clinical Provider Trainer (Current) Anticoagulant Treatment 03/31/2022 Atrial Fibrillation Unspecified (HCC) 03/31/2022 Monitoring For Therapeutic Drug Therapy 03/31/2022 Care Home (Current) Anticoagulant Treatment 03/31/2022 Atrial Fibrillation Unspecified (HCC) 04/07/2022 Monitoring For Therapeutic Drug Therapy 04/07/2022 Clinical Provider Trainer (Current) Anticoagulant Treatment 04/07/2022 Atrial Fibrillation Unspecified (HCC) 04/07/2022 Monitoring For Therapeutic Drug Therapy 04/07/2022 Care Home (Current) Anticoagulant Treatment 04/07/2022 Atrial Fibrillation Other Persistent (HCC) 04/07/2022 Atrial Fibrillation Unspecified (HCC) 04/21/2022 Atrial Fibrillation Unspecified (HCC) 04/21/2022 Monitoring For Therapeutic Drug Therapy 04/21/2022 Care Home (Current) Anticoagulant Treatment 04/21/2022 Atrial Fibrillation Unspecified (HCC) 04/21/2022 Monitoring For Therapeutic Drug Therapy 04/21/2022 Care Home (Current) Anticoagulant Treatment 04/21/2022 Atrial Fibrillation Unspecified (HCC) 04/28/2022 Monitoring For Therapeutic Drug Therapy 04/28/2022 Care Home (Current) Anticoagulant Treatment 04/28/2022 Atrial Fibrillation Unspecified (HCC) 04/28/2022 Monitoring For Therapeutic Drug Therapy 04/28/2022 Care Home (Current) Anticoagulant Treatment 04/28/2022 Atrial Fibrillation Unspecified (HCC) 04/29/2022 Monitoring For Therapeutic Drug Therapy 04/29/2022 Care Home (Current) Anticoagulant Treatment 04/29/2022 Deficiency Estrogen Post Menopausal 05/12/2022 Atrial Fibrillation Unspecified (HCC) 05/12/2022 Monitoring For Therapeutic Drug Therapy 05/12/2022 Clinical Provider Trainer (Current) Anticoagulant Treatment 05/12/2022 Atrial Fibrillation Unspecified (HCC) 05/12/2022 Monitoring For Therapeutic Drug Therapy 05/12/2022 Care Home (Current) Anticoagulant Treatment 05/12/2022 Cardiomyopathy Dilated (HCC) 06/01/2022 Atrial Fibrillation Unspecified (HCC) 06/03/2022 Care Home (Current) Anticoagulant Treatment 06/03/2022 Cardiomyopathy Dilated (HCC) 06/03/2022 Hyperlipidemia On Treatment 06/03/2022 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 Glomerular Filtration Rate (GFR) 45 To 59 (HCC) 06/03/2022 Atrial Fibrillation Unspecified (HCC) 06/09/2022 Monitoring For Therapeutic Drug Therapy 06/09/2022 Clinical Provider Trainer (Current) Anticoagulant Treatment 06/09/2022 Atrial Fibrillation Unspecified (HCC) 06/09/2022 Monitoring For Therapeutic Drug Therapy 06/09/2022 Clinical Provider Trainer (Current) Anticoagulant Treatment 06/09/2022 Atrial Fibrillation Unspecified (HCC) 06/15/2022 Monitoring For Therapeutic Drug Therapy 06/15/2022 Clinical Provider Trainer (Current) Anticoagulant Treatment 06/15/2022 Atrial Fibrillation Unspecified (HCC) 06/15/2022 Monitoring For Therapeutic Drug Therapy 06/15/2022 Care Home (Current) Anticoagulant Treatment 06/15/2022 Atrial Fibrillation Unspecified (HCC) 06/19/2022 Monitoring For Therapeutic Drug Therapy 06/19/2022 Care Home (Current) Anticoagulant Treatment 06/19/2022 Atrial Fibrillation Unspecified (HCC) 06/19/2022 Monitoring For Therapeutic Drug Therapy 06/19/2022 Care Home (Current) Anticoagulant Treatment 06/19/2022 Atrial Fibrillation Unspecified (HCC) 06/29/2022 Monitoring For Therapeutic Drug Therapy 06/29/2022 Clinical Provider Trainer (Current) Anticoagulant Treatment 06/29/2022 Atrial Fibrillation Unspecified (HCC) 06/29/2022 Monitoring For Therapeutic Drug Therapy 06/29/2022 Clinical Provider Trainer (Current) Anticoagulant Treatment 06/29/2022 Atrial Fibrillation Unspecified (HCC) 07/27/2022 Monitoring For Therapeutic Drug Therapy 07/27/2022 Clinical Provider Trainer (Current) Anticoagulant Treatment 07/27/2022 Atrial Fibrillation Unspecified (HCC) 07/27/2022 Monitoring For Therapeutic Drug Therapy 07/27/2022 Care Home (Current) Anticoagulant Treatment 07/27/2022 Atrial Fibrillation Unspecified (HCC) 08/07/2022 Monitoring For Therapeutic Drug Therapy 08/07/2022 Care Home (Current) Anticoagulant Treatment 08/07/2022 Atrial Fibrillation Unspecified (HCC) 08/10/2022 Monitoring For Therapeutic Drug Therapy 08/10/2022 Clinical Provider Trainer (Current) Anticoagulant Treatment 08/10/2022 Atrial Fibrillation Unspecified (HCC) 08/10/2022 Monitoring For Therapeutic Drug Therapy 08/10/2022 Clinical Provider Trainer (Current) Anticoagulant Treatment 08/10/2022 Monitoring For Therapeutic Drug Therapy 08/12/2022 Laceration Blood Vessel Left Index Finger Sequela 08/31/2022 Atrial Fibrillation Paroxysmal (HCC) 09/01/2022 Clinical Provider Trainer (Current) Anticoagulant Treatment 09/01/2022 Bradycardia 09/01/2022 Cardiomyopathy Dilated (HCC) 09/01/2022 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 Glomerular Filtration Rate (GFR) 45 To 59 (HCC) 09/01/2022 Atrial Fibrillation Unspecified (HCC) 09/03/2022 Monitoring For Therapeutic Drug Therapy 09/03/2022 Care Home (Current) Anticoagulant Treatment 09/03/2022 Atrial Fibrillation Paroxysmal (HCC) 09/03/2022 Monitoring For Therapeutic Drug Therapy 09/03/2022 Clinical Provider Trainer (Current) Anticoagulant Treatment 09/03/2022 Hypertensive 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 3a Glomerular Filtration Rate (GFR) 45 To 59 (HCC) 09/17/2022 Monitoring For Therapeutic Drug Therapy 09/17/2022 Atrial Fibrillation Paroxysmal (HCC) 09/17/2022 Monitoring For Therapeutic Drug Therapy 09/17/2022 Atrial Fibrillation Paroxysmal (HCC) 09/17/2022 Monitoring For Therapeutic Drug Therapy 09/17/2022 Clinical Provider Trainer (Current) Anticoagulant Treatment 09/17/2022 Atrial Fibrillation Paroxysmal (HCC) 10/01/2022 Monitoring For Therapeutic Drug Therapy 10/01/2022 Clinical Provider Trainer (Current) Anticoagulant Treatment 10/01/2022 Atrial Fibrillation Paroxysmal (HCC) 10/02/2022 Care Home (Current) Anticoagulant Treatment 10/02/2022 Monitoring For Therapeutic Drug Therapy 10/02/2022 Atrial Fibrillation Paroxysmal (HCC) 10/02/2022 Monitoring For Therapeutic Drug Therapy 10/02/2022 Clinical Provider Trainer (Current) Anticoagulant Treatment 10/02/2022 Atrial Fibrillation Paroxysmal (HCC) 10/12/2022 Monitoring For Therapeutic Drug Therapy 10/12/2022 Clinical Provider Trainer (Current) Anticoagulant Treatment 10/12/2022 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 Glomerular Filtration Rate (GFR) 45 To 59 (HCC) 10/12/2022 Atrial Fibrillation Paroxysmal (HCC) 10/12/2022 Monitoring For Therapeutic Drug Therapy 10/12/2022 Care Home (Current) Anticoagulant Treatment 10/12/2022 Atrial Fibrillation Paroxysmal (HCC) 10/21/2022 Monitoring For Therapeutic Drug Therapy 10/21/2022 Clinical Provider Trainer (Current) Anticoagulant Treatment 10/21/2022 Atrial Fibrillation Paroxysmal (HCC) 10/27/2022 Monitoring For Therapeutic Drug Therapy 10/27/2022 Clinical Provider Trainer (Current) Anticoagulant Treatment 10/27/2022 Atrial Fibrillation Paroxysmal (HCC) 10/28/2022 Monitoring For Therapeutic Drug Therapy 10/28/2022 Clinical Provider Trainer (Current) Anticoagulant Treatment 10/28/2022 Atrial Fibrillation Paroxysmal (HCC) 11/04/2022 Monitoring For Therapeutic Drug Therapy 11/04/2022 Care Home (Current) Anticoagulant Treatment 11/04/2022 Atrial Fibrillation Paroxysmal (HCC) 11/04/2022 Monitoring For Therapeutic Drug Therapy 11/04/2022 Clinical Provider Trainer (Current) Anticoagulant Treatment 11/04/2022 Atrial Fibrillation Paroxysmal (HCC) 11/10/2022 Monitoring For Therapeutic Drug Therapy 11/10/2022 Clinical Provider Trainer (Current) Anticoagulant Treatment 11/10/2022 Atrial Fibrillation Paroxysmal (HCC) 11/10/2022 Monitoring For Therapeutic Drug Therapy 11/10/2022 Clinical Provider Trainer (Current) Anticoagulant Treatment 11/10/2022 Atrial Fibrillation Paroxysmal (HCC) 11/17/2022 Monitoring For Therapeutic Drug Therapy 11/17/2022 Clinical Provider Trainer (Current) Anticoagulant Treatment 11/17/2022 Atrial Fibrillation Paroxysmal (HCC) 11/17/2022 Monitoring For Therapeutic Drug Therapy 11/17/2022 Care Home (Current) Anticoagulant Treatment 11/17/2022 Atrial Fibrillation Paroxysmal (HCC) 12/15/2022 Monitoring For Therapeutic Drug Therapy 12/15/2022 Clinical Provider Trainer (Current) Anticoagulant Treatment 12/15/2022 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 Glomerular Filtration Rate (GFR) 45 To 59 (HCC) 12/15/2022 Atrial Fibrillation Paroxysmal (HCC) 12/15/2022 Monitoring For Therapeutic Drug Therapy 12/15/2022 Clinical Provider Trainer (Current) Anticoagulant Treatment 12/15/2022 Atrial Fibrillation Paroxysmal (HCC) 01/26/2023 Monitoring For Therapeutic Drug Therapy 01/26/2023 Clinical Provider Trainer (Current) Anticoagulant Treatment 01/26/2023 Atrial Fibrillation Paroxysmal (HCC) 01/26/2023 Monitoring For Therapeutic Drug Therapy 01/26/2023 Clinical Provider Trainer (Current) Anticoagulant Treatment 01/26/2023 Atrial Fibrillation Paroxysmal (HCC) 02/02/2023 Monitoring For Therapeutic Drug Therapy 02/02/2023 Care Home (Current) Anticoagulant Treatment 02/02/2023 Atrial Fibrillation Paroxysmal (HCC) 02/02/2023 Monitoring For Therapeutic Drug Therapy 02/02/2023 Care Home (Current) Anticoagulant Treatment 02/02/2023 Atrial Fibrillation Paroxysmal (HCC) 02/16/2023 Monitoring For Therapeutic Drug Therapy 02/16/2023 Clinical Provider Trainer (Current) Anticoagulant Treatment 02/16/2023 Atrial Fibrillation Paroxysmal (HCC) 02/16/2023 Monitoring For Therapeutic Drug Therapy 02/16/2023 Care Home (Current) Anticoagulant Treatment 02/16/2023 Atrial Fibrillation Paroxysmal (HCC) 02/24/2023 Monitoring For Therapeutic Drug Therapy 02/24/2023 Clinical Provider Trainer (Current) Anticoagulant Treatment 02/24/2023 COVID-19 Infection 02/24/2023 ERRONEOUS ENCOUNTER--DISREGARD 02/24/2023 Atrial Fibrillation Paroxysmal (HCC) 02/25/2023 Monitoring For Therapeutic Drug Therapy 02/25/2023 Clinical Provider Trainer (Current) Anticoagulant Treatment 02/25/2023 Atrial Fibrillation Paroxysmal (HCC) 03/05/2023 Monitoring For Therapeutic Drug Therapy 03/05/2023 Care Home (Current) Anticoagulant Treatment 03/05/2023 Atrial Fibrillation Paroxysmal (HCC) 03/05/2023 Monitoring For Therapeutic Drug Therapy 03/05/2023 Clinical Provider Trainer (Current) Anticoagulant Treatment 03/05/2023 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 Glomerular Filtration Rate (GFR) 45 To 59 (HCC) 03/05/2023 Hyperlipidemia On Treatment 03/05/2023 Atrial Fibrillation Paroxysmal (HCC) 03/09/2023 Monitoring For Therapeutic Drug Therapy 03/09/2023 Care Home (Current) Anticoagulant Treatment 03/09/2023 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 Glomerular Filtration Rate (GFR) 45 To 59 (HCC) 03/09/2023 Hyperlipidemia On Treatment 03/09/2023 Atrial Fibrillation Paroxysmal (HCC) 03/09/2023 Monitoring For Therapeutic Drug Therapy 03/09/2023 Clinical Provider Trainer (Current) Anticoagulant Treatment 03/09/2023 Atrial Fibrillation Paroxysmal (HCC) 03/12/2023 Monitoring For Therapeutic Drug Therapy 03/12/2023 Clinical Provider Trainer (Current) Anticoagulant Treatment 03/12/2023 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 Glomerular Filtration Rate (GFR) 45 To 59 (HCC) 03/12/2023 Hyperlipidemia On Treatment 03/12/2023 Atrial Fibrillation Paroxysmal (HCC) 03/12/2023 Monitoring For Therapeutic Drug Therapy 03/12/2023 Care Home (Current) Anticoagulant Treatment 03/12/2023 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 Glomerular Filtration Rate (GFR) 45 To 59 (HCC) 03/19/2023 Hyperlipidemia On Treatment 03/19/2023 Atrial Fibrillation Paroxysmal (HCC) 03/19/2023 Monitoring For Therapeutic Drug Therapy 03/19/2023 Clinical Provider Trainer (Current) Anticoagulant Treatment 03/19/2023 Hypertensive Heart With [...] 04/02/2023 Monitoring For Therapeutic Drug Therapy 04/02/2023 Clinical Provider Trainer (Current) Anticoagulant Treatment 04/02/2023 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 Glomerular Filtration Rate (GFR) 45 To 59 (HCC) 04/02/2023 Hyperlipidemia On Treatment 04/02/2023 Atrial Fibrillation Paroxysmal (HCC) 04/02/2023 Monitoring For Therapeutic Drug Therapy 04/02/2023 Clinical Provider Trainer (Current) Anticoagulant Treatment 04/02/2023 Hypertensive Heart With [...] 04/30/2023 Monitoring For Therapeutic Drug Therapy 04/30/2023 Clinical Provider Trainer (Current) Anticoagulant Treatment 04/30/2023 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 Glomerular Filtration Rate (GFR) 45 To 59 (HCC) 04/30/2023 Hyperlipidemia On Treatment 04/30/2023 Atrial Fibrillation Paroxysmal (HCC) 04/30/2023 Monitoring For Therapeutic Drug Therapy 04/30/2023 Clinical Provider Trainer (Current) Anticoagulant Treatment 04/30/2023 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 Glomerular Filtration Rate (GFR) 45 To 59 (HCC) 05/07/2023 Hyperlipidemia On Treatment 05/07/2023 Atrial Fibrillation Paroxysmal (HCC) 05/07/2023 Monitoring For Therapeutic Drug Therapy 05/07/2023 Clinical Provider Trainer (Current) Anticoagulant Treatment 05/07/2023 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 Glomerular Filtration Rate (GFR) 45 To 59 (HCC) 05/07/2023 Hyperlipidemia On Treatment 05/07/2023 Atrial Fibrillation Paroxysmal (HCC) 05/07/2023 Monitoring For Therapeutic Drug Therapy 05/07/2023 Clinical Provider Trainer (Current) Anticoagulant Treatment 05/07/2023 Atrial Fibrillation Paroxysmal (HCC) 05/21/2023 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 Glomerular Filtration Rate (GFR) 45 To 59 (HCC) 05/21/2023 Hyperlipidemia On Treatment 05/21/2023 Atrial Fibrillation Paroxysmal (HCC) 05/21/2023 Monitoring For Therapeutic Drug Therapy 05/21/2023 Clinical Provider Trainer (Current) Anticoagulant Treatment 05/21/2023 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 Glomerular Filtration Rate (GFR) 45 To 59 (HCC) 05/27/2023 Hyperlipidemia On Treatment 05/27/2023 Atrial Fibrillation Paroxysmal (HCC) 05/27/2023 Monitoring For Therapeutic Drug Therapy 05/27/2023 Care Home (Current) Anticoagulant Treatment 05/27/2023 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 Glomerular Filtration Rate (GFR) 45 To 59 (HCC) 05/27/2023 Hyperlipidemia On Treatment 05/27/2023 Atrial Fibrillation Paroxysmal (HCC) 05/27/2023 Monitoring For Therapeutic Drug Therapy 05/27/2023 Clinical Provider Trainer (Current) Anticoagulant Treatment 05/27/2023 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 Glomerular Filtration Rate (GFR) 45 To 59 (HCC) 06/03/2023 Hyperlipidemia On Treatment 06/03/2023 Atrial Fibrillation Paroxysmal (HCC) 06/03/2023 Monitoring For Therapeutic Drug Therapy 06/03/2023 Clinical Provider Trainer (Current) Anticoagulant Treatment 06/03/2023 Hypertensive 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 Glomerular Filtration Rate (GFR) 45 To 59 (HCC) 06/03/2023 Hyperlipidemia On Treatment 06/03/2023 Atrial Fibrillation Paroxysmal (HCC) 06/03/2023 Monitoring For Therapeutic Drug Therapy 06/03/2023 Care Home (Current) Anticoagulant Treatment 06/03/2023 Atrial Fibrillation Paroxysmal (HCC) 06/22/2023 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 Glomerular Filtration Rate (GFR) 45 To 59 (HCC) 06/22/2023 Hyperlipidemia On Treatment 06/22/2023 Atrial Fibrillation Paroxysmal (HCC) 06/22/2023 Monitoring For Therapeutic Drug Therapy 06/22/2023 Care Home (Current) Anticoagulant Treatment 06/22/2023 Atrial Fibrillation Unspecified (HCC) 06/22/2023 Atrial Fibrillation Paroxysmal (HCC) 06/22/2023 Clinical Provider Trainer (Current) Anticoagulant Treatment 06/22/2023 Monitoring For Therapeutic [...] 06/24/2023 Monitoring For Therapeutic Drug Therapy 06/24/2023 Clinical Provider Trainer (Current) Anticoagulant Treatment 06/24/2023 Hypertensive Heart With [...] 07/06/2023 Monitoring For Therapeutic Drug Therapy 07/06/2023 Clinical Provider Trainer (Current) Anticoagulant Treatment 07/06/2023 Atrial Fibrillation Paroxysmal (HCC) 07/06/2023 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 Glomerular Filtration Rate (GFR) 45 To 59 (HCC) 07/06/2023 Hyperlipidemia On Treatment 07/06/2023 Monitoring For Therapeutic Drug Therapy 07/06/2023 Clinical Provider Trainer (Current) Anticoagulant Treatment 07/06/2023 Hypertensive Heart With Heart Failure And Chronic Kidney Disease (CKD) Stage 3a Glomerular Filtration Rate (GFR) 45 To 59 (HCC) 08/05/2023 Hyperlipidemia On Treatment 08/05/2023 Atrial Fibrillation Paroxysmal (HCC) 08/05/2023 Monitoring For Therapeutic Drug Therapy 08/05/2023 Clinical Provider Trainer (Current) Anticoagulant Treatment 08/05/2023 Hypertensive Heart With Heart Failure And Chronic Kidney Disease (CKD) Stage 3a Glomerular Filtration Rate (GFR) 45 To 59 (HCC) 08/06/2023 Hyperlipidemia On Treatment 08/06/2023 Atrial Fibrillation Paroxysmal (HCC) 08/06/2023 Monitoring For Therapeutic Drug Therapy 08/06/2023 Care Home (Current) Anticoagulant Treatment 08/06/2023 Hypertensive Heart With Heart Failure And Chronic Kidney Disease (CKD) Stage 3a Glomerular Filtration Rate (GFR) 45 To 59 (HCC) 08/13/2023 Hyperlipidemia On Treatment 08/13/2023 Atrial Fibrillation Paroxysmal (HCC) 08/13/2023 Monitoring For Therapeutic Drug Therapy 08/13/2023 Clinical Provider Trainer (Current) Anticoagulant Treatment 08/13/2023 Hypertensive Heart With Heart Failure And Chronic Kidney Disease (CKD) Stage 3a Glomerular Filtration Rate (GFR) 45 To 59 (HCC) 08/16/2023 Hyperlipidemia On Treatment 08/16/2023 Atrial Fibrillation Paroxysmal (HCC) 08/16/2023 Monitoring For Therapeutic Drug Therapy 08/16/2023 Clinical Provider Trainer (Current) Anticoagulant Treatment 08/16/2023 Hypertensive Heart With Heart Failure And Chronic Kidney Disease (CKD) Stage 3a Glomerular Filtration Rate (GFR) 45 To 59 (HCC) 08/17/2023 Hyperlipidemia On Treatment 08/17/2023 Atrial Fibrillation Paroxysmal (HCC) 08/17/2023 Monitoring For Therapeutic Drug Therapy 08/17/2023 Clinical Provider Trainer (Current) Anticoagulant Treatment 08/17/2023 Hypertensive Heart With Heart Failure And Chronic Kidney Disease (CKD) Stage 3a Glomerular Filtration Rate (GFR) 45 To 59 (HCC) 08/24/2023 Hyperlipidemia On Treatment 08/24/2023 Atrial Fibrillation Paroxysmal (HCC) 08/24/2023 Monitoring For Therapeutic Drug Therapy 08/24/2023 Clinical Provider Trainer (Current) Anticoagulant Treatment 08/24/2023 Hypertensive Heart With Heart Failure And Chronic Kidney Disease (CKD) Stage 3a Glomerular Filtration Rate (GFR) 45 To 59 (HCC) 08/24/2023 Hyperlipidemia On Treatment 08/24/2023 Atrial Fibrillation Paroxysmal (HCC) 08/24/2023 Monitoring For Therapeutic Drug Therapy 08/24/2023 Care Home (Current) Anticoagulant Treatment 08/24/2023 Hypertensive Heart With Heart Failure And Chronic Kidney Disease (CKD) Stage 3a Glomerular Filtration Rate (GFR) 45 To 59 (HCC) 08/27/2023 Hyperlipidemia On Treatment 08/27/2023 Atrial Fibrillation Paroxysmal (HCC) 08/27/2023 Monitoring For Therapeutic Drug Therapy 08/27/2023 Care Home (Current) Anticoagulant Treatment 08/27/2023 Hypertensive Heart With Heart Failure And Chronic Kidney Disease (CKD) Stage 3a Glomerular Filtration Rate (GFR) 45 To 59 (HCC) 08/27/2023 Hyperlipidemia On Treatment 08/27/2023 Atrial Fibrillation Paroxysmal (HCC) 08/27/2023 Monitoring For Therapeutic Drug Therapy 08/27/2023 Care Home (Current) Anticoagulant Treatment 08/27/2023 Hypertensive Heart With Heart Failure And Chronic Kidney Disease (CKD) Stage 3a Glomerular Filtration Rate (GFR) 45 To 59 (HCC) 09/02/2023 Hyperlipidemia On Treatment 09/02/2023 Atrial Fibrillation Paroxysmal (HCC) 09/02/2023 Monitoring For Therapeutic Drug Therapy 09/02/2023 Clinical Provider Trainer (Current) Anticoagulant Treatment 09/02/2023 Hypertensive Heart With Heart Failure And Chronic Kidney Disease (CKD) Stage 3a Glomerular Filtration Rate (GFR) 45 To 59 (HCC) 09/02/2023 Hyperlipidemia On Treatment 09/02/2023 Atrial Fibrillation Paroxysmal (HCC) 09/02/2023 Monitoring For Therapeutic Drug Therapy 09/02/2023 Care Home (Current) Anticoagulant Treatment 09/02/2023 Hypertensive Heart With Heart Failure And Chronic Kidney Disease (CKD) Stage 3a Glomerular Filtration Rate (GFR) 45 To 59 (HCC) 09/08/2023 Hyperlipidemia On Treatment 09/08/2023 Atrial Fibrillation Paroxysmal (HCC) 09/08/2023 Monitoring For Therapeutic Drug Therapy 09/08/2023 Care Home (Current) Anticoagulant Treatment 09/08/2023 Hypertensive Heart With Heart Failure And Chronic Kidney Disease (CKD) Stage 3a Glomerular Filtration Rate (GFR) 45 To 59 (HCC) 09/08/2023 Hyperlipidemia On Treatment 09/08/2023 Atrial Fibrillation Paroxysmal (HCC) 09/08/2023 Monitoring For Therapeutic Drug Therapy 09/08/2023 Clinical Provider Trainer (Current) Anticoagulant Treatment 09/08/2023 Hypertensive Heart With Heart Failure And Chronic Kidney Disease (CKD) Stage 3a Glomerular Filtration Rate (GFR) 45 To 59 (HCC) 09/14/2023 Hyperlipidemia On Treatment 09/14/2023 Atrial Fibrillation Paroxysmal (HCC) 09/14/2023 Monitoring For Therapeutic Drug Therapy 09/14/2023 Care Home (Current) Anticoagulant Treatment 09/14/2023 Hypertensive Heart With Heart Failure And Chronic Kidney Disease (CKD) Stage 3a Glomerular Filtration Rate (GFR) 45 To 59 (HCC) 09/14/2023 Hyperlipidemia On Treatment 09/14/2023 Atrial Fibrillation Paroxysmal (HCC) 09/14/2023 Monitoring For Therapeutic Drug Therapy 09/14/2023 Clinical Provider Trainer (Current) Anticoagulant Treatment 09/14/2023 Hypertensive Heart With Heart Failure And Chronic Kidney Disease (CKD) Stage 3a Glomerular Filtration Rate (GFR) 45 To 59 (HCC) 09/21/2023 Hyperlipidemia On Treatment 09/21/2023 Atrial Fibrillation Paroxysmal (HCC) 09/21/2023 Monitoring For Therapeutic Drug Therapy 09/21/2023 Clinical Provider Trainer (Current) Anticoagulant Treatment 09/21/2023 Hypertensive Heart With Heart Failure And Chronic Kidney Disease (CKD) Stage 3a Glomerular Filtration Rate (GFR) 45 To 59 (HCC) 09/21/2023 Hyperlipidemia On Treatment 09/21/2023 Atrial Fibrillation Paroxysmal (HCC) 09/21/2023 Monitoring For Therapeutic Drug Therapy 09/21/2023 Clinical Provider Trainer (Current) Anticoagulant Treatment 09/21/2023 Hypertensive Heart With Heart Failure And Chronic Kidney Disease (CKD) Stage 3a Glomerular Filtration Rate (GFR) 45 To 59 (HCC) 09/24/2023 Hyperlipidemia On Treatment 09/24/2023 Atrial Fibrillation Paroxysmal (HCC) 09/24/2023 Monitoring For Therapeutic Drug Therapy 09/24/2023 Care Home (Current) Anticoagulant Treatment 09/24/2023 Hypertensive Heart With Heart Failure And Chronic Kidney Disease (CKD) Stage 3a Glomerular Filtration Rate (GFR) 45 To 59 (HCC) 09/24/2023 Hyperlipidemia On Treatment 09/24/2023 Atrial Fibrillation Paroxysmal (HCC) 09/24/2023 Monitoring For Therapeutic Drug Therapy 09/24/2023 Clinical Provider Trainer (Current) Anticoagulant Treatment 09/24/2023 Hypertensive Heart With Heart Failure And Chronic Kidney Disease (CKD) Stage 3a Glomerular Filtration Rate (GFR) 45 To 59 (HCC) 10/01/2023 Hyperlipidemia On Treatment 10/01/2023 Atrial Fibrillation Paroxysmal (HCC) 10/01/2023 Monitoring For Therapeutic Drug Therapy 10/01/2023 Care Home (Current) Anticoagulant Treatment 10/01/2023 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 Or Unspecified Chronic Kidney Disease (HCC) 10/04/2023 Hyperlipidemia On Treatment 10/04/2023 Atrial Fibrillation Paroxysmal (HCC) 10/04/2023 Monitoring For Therapeutic Drug Therapy 10/04/2023 Clinical Provider Trainer (Current) Anticoagulant Treatment 10/04/2023 Atrial Fibrillation Paroxysmal (HCC) 10/07/2023 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 Or Unspecified Chronic Kidney Disease (HCC) 10/08/2023 Hyperlipidemia On Treatment 10/08/2023 Atrial Fibrillation Paroxysmal (HCC) 10/08/2023 Monitoring For Therapeutic Drug Therapy 10/08/2023 Clinical Provider Trainer (Current) Anticoagulant Treatment 10/08/2023 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 Or Unspecified Chronic Kidney Disease (HCC) 10/15/2023 Hyperlipidemia On Treatment 10/15/2023 Atrial Fibrillation Paroxysmal (HCC) 10/15/2023 Monitoring For Therapeutic Drug Therapy 10/15/2023 Care Home (Current) Anticoagulant Treatment 10/15/2023 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 Or Unspecified Chronic Kidney Disease (HCC) 10/19/2023 Hyperlipidemia On Treatment 10/19/2023 Atrial Fibrillation Paroxysmal (HCC) 10/19/2023 Monitoring For Therapeutic Drug Therapy 10/19/2023 Clinical Provider Trainer (Current) Anticoagulant Treatment 10/19/2023 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 Or Unspecified Chronic Kidney Disease (HCC) 10/28/2023 Hyperlipidemia On Treatment 10/28/2023 Atrial Fibrillation Paroxysmal (HCC) 10/28/2023 Monitoring For Therapeutic Drug Therapy 10/28/2023 Clinical Provider Trainer (Current) Anticoagulant Treatment 10/28/2023 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 Or Unspecified Chronic Kidney Disease (HCC) 10/28/2023 Hyperlipidemia On Treatment 10/28/2023 Atrial Fibrillation Paroxysmal (HCC) 10/28/2023 Monitoring For Therapeutic Drug Therapy 10/28/2023 Care Home (Current) Anticoagulant Treatment 10/28/2023 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 Or Unspecified Chronic Kidney Disease (HCC) 11/02/2023 Hyperlipidemia On Treatment 11/02/2023 Atrial Fibrillation Paroxysmal (HCC) 11/02/2023 Monitoring For Therapeutic Drug Therapy 11/02/2023 Clinical Provider Trainer (Current) Anticoagulant Treatment 11/02/2023 Hypertensive Heart And Chronic Kidney Disease With Heart Failure And Stage 1 To 4 Chronic Kidney Disease Or Unspecified Chronic Kidney Disease (HCC) 11/02/2023 Hyperlipidemia On Treatment 11/02/2023 Atrial Fibrillation Paroxysmal (HCC) 11/02/2023 Monitoring For Therapeutic Drug Therapy 11/02/2023 Care Home (Current) Anticoagulant Treatment 11/02/2023 Hypertensive Heart And Chronic Kidney Disease With Heart Failure And Stage 1 To 4 Chronic Kidney Disease Or Unspecified Chronic Kidney Disease (HCC) 11/02/2023 Hyperlipidemia On Treatment 11/02/2023 Atrial Fibrillation Paroxysmal (HCC) 11/02/2023 Monitoring For Therapeutic Drug Therapy 11/02/2023 Care Home (Current) Anticoagulant Treatment 11/02/2023 Atrial Fibrillation Paroxysmal (HCC) 11/12/2023 Monitoring For Therapeutic Drug Therapy 11/12/2023 Clinical Provider Trainer (Current) Anticoagulant Treatment 11/12/2023 Hypertensive Heart And Chronic Kidney Disease With Heart Failure And Stage 1 To 4 Chronic Kidney Disease Or Unspecified Chronic Kidney Disease (HCC) 11/12/2023 Hyperlipidemia On Treatment 11/12/2023 Atrial Fibrillation Paroxysmal (HCC) 11/12/2023 Monitoring For Therapeutic Drug Therapy 11/12/2023 Clinical Provider Trainer (Current) Anticoagulant Treatment 11/12/2023 Hypertensive Heart And Chronic Kidney Disease With Heart Failure And Stage 1 To 4 Chronic Kidney Disease Or Unspecified Chronic Kidney Disease (HCC) 11/22/2023 Hyperlipidemia On Treatment 11/22/2023 Atrial Fibrillation Paroxysmal (HCC) 11/22/2023 Monitoring For Therapeutic Drug Therapy 11/22/2023 Care Home (Current) Anticoagulant Treatment 11/22/2023 Hypertensive Heart And Chronic Kidney Disease With Heart Failure And Stage 1 To 4 Chronic Kidney Disease Or Unspecified Chronic Kidney Disease (HCC) 11/22/2023 Hyperlipidemia On Treatment 11/22/2023 Atrial Fibrillation Paroxysmal (HCC) 11/22/2023 Monitoring For Therapeutic Drug Therapy 11/22/2023 Clinical Provider Trainer (Current) Anticoagulant Treatment 11/22/2023 Hypertensive Heart And Chronic Kidney Disease With Heart Failure And Stage 1 To 4 Chronic Kidney Disease Or Unspecified Chronic Kidney Disease (HCC) 12/03/2023 Hyperlipidemia On Treatment 12/03/2023 Atrial Fibrillation Paroxysmal (HCC) 12/03/2023 Monitoring For Therapeutic Drug Therapy 12/03/2023 Clinical Provider Trainer (Current) Anticoagulant Treatment 12/03/2023 Hypertensive Heart And Chronic Kidney Disease With Heart Failure And Stage 1 To 4 Chronic Kidney Disease Or Unspecified Chronic Kidney Disease (HCC) 12/03/2023 Hyperlipidemia On Treatment 12/03/2023 Atrial Fibrillation Paroxysmal (HCC) 12/03/2023 Monitoring For Therapeutic Drug Therapy 12/03/2023 Clinical Provider Trainer (Current) Anticoagulant Treatment 12/03/2023 Atrial Fibrillation Paroxysmal (HCC) 12/06/2023 Atrial Fibrillation Paroxysmal (HCC) 12/13/2023 Hypertensive Heart And Chronic Kidney Disease With Heart Failure And Stage 1 To 4 Chronic Kidney Disease Or Unspecified Chronic Kidney Disease (HCC) 12/14/2023 Hyperlipidemia On Treatment 12/14/2023 Atrial Fibrillation Paroxysmal (HCC) 12/14/2023 Monitoring For Therapeutic Drug Therapy 12/14/2023 Care Home (Current) Anticoagulant Treatment 12/14/2023 Hypertensive Heart And Chronic Kidney Disease With Heart Failure And Stage 1 To 4 Chronic Kidney Disease Or Unspecified Chronic Kidney Disease (HCC) 12/15/2023 Hyperlipidemia On Treatment 12/15/2023 Atrial Fibrillation Paroxysmal (HCC) 12/15/2023 Monitoring For Therapeutic Drug Therapy 12/15/2023 Clinical Provider Trainer (Current) Anticoagulant Treatment 12/15/2023 Care Teams 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 [place] [id number] PCP - General Internal Medicine 08/12/22
--- OUTSIDE RECORDS SUMMARY | 2023-12-15 13:15 | XMS_ITS ---
Author Organization [facility] Address [address] [place] [address] Care Team Providers Care Lusterer Name Role Phone Unavailable Unavailable Unavailable Surgery Details Not on file Complications Check Surgery Details section. Procedure Estimated Blood Loss Check Surgery Details section. Procedure Findings Check Surgery Details section. Procedure Specimens Taken Check Surgery Details section.
--- OUTSIDE RECORDS SUMMARY | 2023-12-15 13:16 | XMS_ITS | Encounter Summary ---
Author Organization [facility] Address [address] [place] [address] Care Team Providers Care Product Operations Associate Name Role Phone Patrick Erickson D.O. Primary Care Provider +1- [phone] Encounter Details Date Type Department Care Team (Latest Contact Info) Description 11/12/2023 11:50 AM CDT - 11/12/2023 11:59 PM CDT Hospital Encounter Department of Laboratory Medicine in [place] [address] [place] [phone] Patrick Erickson D.O. [address] [place] [phone] Atrial Fibrillation Paroxysmal (HCC); Monitoring For Therapeutic Drug Therapy; Long-Term (Current) Anticoagulant Treatment Discharge Disposition: Home or Self Care Social History Tobacco Use Types Packs/Day Years Used Date Smoking Tobacco: Never Smokeless Tobacco: Never Alcohol Use Standard Drinks/Week Comments No 0 (1 standard drink = 0.6 oz pur e alcohol) [facility] Utilities Answer Date Recorded In the past 12 months has e [employer], gas, oil, or water [employer] threatened to shut off services in your [...] How often do you attend chur or hoahaoism services? More than 4 times per year [...] Answer Date Recorded PHQ-2 Score 0 04/27/2023 [facility] [place] of Occupat ional Health - Occupational Stress [...] your living situation today? I have a [facility] place to live 07/01/2023 [...] tablet every day 90 tablet 3 04/21/2023 omsxbcm-elkx-dfzyy-o reg-capryl 100 mg-150 mg- 50 mg-150 mg [...] Appointment Department of Laboratory Medicine in [address] [place] [phone] Patrick Erickson D.O. [address] [place] [phone] 12/17/2023 3:50 PM CDT Appointment Department of Laboratory Medicine in [place], [place] [address] [place] [phone] Patrick Erickson D.O. [address] [address] 12/17/2023 4:20 PM CDT Anticoagulation Visit Department of Anticoagulation in [place], [place] [address] [place] [address] Soheila Zapata P.A.-C., M.S. [address] [address] 12/24/2023 10:10 AM CDT Appointment Department of Laboratory Medicine in [place], [place] [address] [place] [phone] Patrick Erickson D.O. [address] [phone] 12/28/2023 1:00 PM CDT Office Visit Department of Internal Medicine in [place], [place] [address] [address] Patrick Erickson D.O. [address] [address] documented as of this encounter Procedures Procedure [...] D.O. LAB POCT ORDERABLE S - DEVICE [facility] [address] [place] [address], [facility] FB60 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 [address] [phone] PCP - General Internal Medicine 08/12/22 documented as of this encounter
--- OUTSIDE RECORDS SUMMARY | 2023-12-15 13:16 | XMS_ITS | Encounter Summary ---
Author Organization [facility] Address [address] [place] [address] Care Team Providers Care Cyber Threat Analyst Name Role Phone Patrick Erickson D.O. Primary Care Provider +1- [phone] Reason for Visit * Reason Onset Date Comments Arm Injury 12/01/2023 Post Ed Visit Follow-up 12/01/2023 Encounter Details Date Type Department Care Team (Latest Contact Info) Description 12/01/2023 Clinical Communication Department of Orthopedic Surgery in [place], [place] [address] [address] Sher Bauman M.D. [address] [place] [phone] Arm Injury; Post Ed Visit Follow-up Social History Tobacco Use Types Packs/Day Years Used Date Smoking Tobacco: Never Smokeless Tobacco: Never Alcohol Use Standard Drinks/Week Comments No 0 (1 standard drink = 0.6 oz pur e alcohol) [facility] Utilities Answer Date Recorded In the [...] How often do you attend chur or restoration services? More than 4 times [...] Answer Date Recorded PHQ-2 Score 0 04/27/2023 [facility] of Occupat ional Health - Occupational [...] workand was taken by ambulance to the [facility]. Patient states she followed up with [facility] and is preparing for surgery either on Wednesday or Wednesday next week. Patient states she broke the bone in her upper left arm and is needing a plate. Discussed if patient is requesting to follow up at [facility] instead of [facility]. Patient states since this is a work comp claim, she will continue to follow up with [facility]. Patient will have [facility] send all medical records to [facility] since her primary care provider is in [place]. * Telephone Encounter - Nancy Garrison L.P.N. - 12/02/2023 9:23 AM CDT Left message to call clinic back with daughter Cherie. No release on file. No ER records viewablein system. documented in this encounter Plan of Treatment Upcoming Encounters Date Type Department Care Team (Latest Contact Info) Description 12/15/2023 4:50 PM CDT Appointment Department of Laboratory Medicine in [place], [place] 300 [place] [phone] Patrick Erickson D.O. [address] [place] [phone] 12/17/2023 3:50 PM CDT Appointment Department of Laboratory Medicine in [place], [place] [address] [place] [phone] Patrick Erickson D.O. [address] [place] [address] 12/17/2023 4:20 PM CDT Anticoagulation Visit Department of Anticoagulation in [place], [place] [address] [place] [address] Soheila Zapata P.A.-C., M.S. [address] [place] [address] 12/24/2023 10:10 AM CDT Appointment Department of Laboratory Medicine in [place], [place] [address] [place] [address] Patrick Erickson D.O. [address] [place] [phone] 12/28/2023 1:00 PM CDT Office Visit Department of Internal Medicine in [place], [place] [address] [place] [address] Patrick Erickson D.O. 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 [address] [place] [phone] PCP - General Internal Medicine 08/12/22 documented as of this encounter
--- OUTSIDE RECORDS SUMMARY | 2023-12-15 13:16 | XMS_ITS | Encounter Summary ---
Author Organization [facility] Address [address] [place] [address] Care Team Providers Care Cargo Handler Name Role Phone Patrick Erickson D.O. Primary Care Provider +1- [phone] Reason for Visit * Reason Onset Date Comments COVID Treatment Review 11/29/2023 Encounter Details Date Type Department Care Team (Latest Contact Info) Description 11/29/2023 Clinical Communication Department of Family Medicine, [address] [address] Butch Sanchez, R.N. COVID Treatment Review Social History Tobacco Use Types Packs/Day Years Used Date Smoking Tobacco: Never Smokeless Tobacco: Never Alcohol Use Standard Drinks/Week Comments No 0 (1 standard drink = 0.6 oz pur e alcohol) [facility] Utilities Answer Date Recorded In the past 12 months has [facility] [employer], gas, oil, or water [employer] threatened to shut off services in your [...] often do you attend chur ch or rastafari services? More than 4 times per year [...] Answer Date Recorded PHQ-2 Score 0 04/27/2023 [facility] of Occupat ional [...] your living situation today? I have a [facility] place to live 07/01/2023 Education Answer [...] Sanchez R.NHowie - 11/29/2023 9:44 AM CDT [place] Virtual Care Team Evaluation Reason for Call [...] provider judgement, [facility] workflow(s), guidelines, and protocols, [facility] Protocols.? . documented in this encounter Plan of Treatment Upcoming Encounters Date Type Department Care Team (Latest Contact Info) Description 12/15/2023 4:50 PM CDT Appointment Department of Laboratory Medicine in [address] [phone] Patrick Erickson D.O. [address] [address] 12/17/2023 3:50 PM CDT Appointment Department of Laboratory Medicine in [address] [phone] Patrick Erickson D.O. [address] [place] [address] 12/17/2023 4:20 PM CDT Anticoagulation Visit Department of Anticoagulation in [place], [place] [address] [place] [address] Soheila Zapata P.A.-C., M.S. [address] [place] [phone] 12/24/2023 10:10 AM CDT Appointment Department of Laboratory Medicine in [address] [address] Patrick Erickson D.O. [address] [place] [phone] 12/28/2023 1:00 PM CDT Office Visit Department of Internal Medicine in [place], [place] [address] [place] [address] Patrick Erickson D.O. 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 [address] [place] [address] PCP - General Internal Medicine 08/12/22 documented as of this encounter
--- OUTSIDE RECORDS SUMMARY | 2023-12-15 13:16 | XMS_ITS | Encounter Summary ---
Author Organization [facility] Address [address] [place] [address] Care Team Providers Care Vegetables Cook Name Role Phone Patrick Erickson D.O. Primary Care Provider +1- [phone] Encounter Details Date Type Department Care Team (Latest Contact Info) Description 12/03/2023 2:50 PM CDT - 12/03/2023 11:59 PM CDT Hospital Encounter Department of Laboratory Medicine in [place] [address] [place] [phone] Patrick Erickson D.O. 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) Anticoagulant Treatment Discharge Disposition: Home or Self Care Social History Tobacco Use Types Packs/Day Years Used Date Smoking Tobacco: Never Smokeless Tobacco: Never Alcohol Use Standard Drinks/Week Comments No 0 (1 standard drink = 0.6 oz pur e alcohol) [facility] Utilities Answer Date Recorded In the past 12 months has th e electric, gas, oil, or water [employer] threatened to shut off services in your [...] Answer Date Recorded PHQ-2 Score 0 04/27/2023 [facility] [place] of Occupat ional Health - Occupational Stress [...] your living situation today? 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 15 tablet 08/24/2023 12/06/2023 warfarin (JANTOVEN) 5 mg tabletIndications:Hy pertensive Heart With Heart Failure And Chronic Kidney Disease (CKD) Stage 3a Glomerular Filtration Rate (GFR) 45 To 59 (HCC),Hyperlipidemia On Treatment,Atrial Fibrillation Paroxysmal (HCC),Monitoring For Therapeutic Drug Therapy,Shelter (Current) Anticoagulant Treatment Please take as directed by your Anticoagulation Clinic. 120 tablet 3 08/24/2023 12/06/2023 documented as of this encounter Plan of Treatment Upcoming Encounters Date Type Department Care Team (Latest Contact Info) Description 12/15/2023 4:50 PM CDT Appointment Department of Laboratory Medicine in [address] [phone] Patrick Erickson D.O. [address] [phone] 12/17/2023 3:50 PM CDT Appointment Department of Laboratory Medicine in [place], [place] 300 [place] [phone] Patrick Erickson D.O. [address] [phone] 12/17/2023 4:20 PM CDT Anticoagulation Visit Department of Anticoagulation in [place], [place] [address] [place] [address] Soheila Zapata P.A.-C., M.S. [address] [phone] 12/24/2023 10:10 AM CDT Appointment Department of Laboratory Medicine in [place], [place] [address] [place] [phone] Patrick Erickson D.O. [address] [address] 12/28/2023 1:00 PM CDT Office Visit Department of Internal Medicine in [place], [place] [address] [address] Patrick Erickson D.O. [address] [phone] documented as of this encounter Procedures Procedure [...] Paroxysmal (HCC) Monitoring For Therapeutic Drug Therapy Shelter (Current) Anticoagulant Treatment documented in this encounter [...] PM CDT 12/03/2023 5:54 PM CDT Patrick HYATT BLOOD ADD-ON Performing Organization Address City/State/[facility] Co de Phone Number [facility] [address] [place] [address], [facility] in [place] [address] [place] [address] * (ABNORMAL) INR Reflex, POCT, Blood (12/03/2023 2:57 PM CDT) INR Reflex, POCT, B 5.3(CH) 12/03/2023 2:56 PM CDT [id number] Comment: ----ADDITIONAL INFORMATION---- Standard intensity warfarin therapeutic range: 2.0 to 3.0 ?? High intensity warfarin therapeutic range: 2.5 to 3.5 Blood (Blood, Capillary) 12/03/2023 2:57 PM CDT 12/03/2023 2:56 PM CDT Patrick Erickson D.O. 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 [address] [place] [address] PCP - General Internal Medicine 08/12/22 documented as of this encounter
--- OUTSIDE RECORDS SUMMARY | 2023-12-15 13:16 | XMS_ITS | Encounter Summary ---
Author Organization [facility] Address [address] [place] [address] Care Team Providers Care Iv Technician Name Role Phone Patrick Erickson D.O. Primary Care Provider +1- [phone] Reason for Visit * Outpatient (Routine) - Authorized Specialty Diagnoses / Procedures Referred By Prosper t Referred To Contact Anticoagulation Soheila Zapata P.A.-C., M.S. [address] [address] [facility] Referral ID Status Reason Start Date Expiration Date V isits Requested Visits Authorized [id number] Authorized 01/07/2022 01/06/2025 300 300 Encounter Details Date Type Department Care Team (Latest Contact Info) Description 11/02/2023 3:30 PM CDT Anticoagulation Visit Department of Anticoagulation in [place], [place] [address] [place] [address] Soheila Zapata P.A.-C., M.S. 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 More than 4 times per year [...] Answer Date Recorded PHQ-2 Score 0 04/27/2023 [facility] [place] of Occupat [facility] - Occupational Stress Questionnaire Answer [...] your living situation today? I have a [facility] place to live 07/01/2023 Education Answer Date [...] please call Primary Care Anticoagulation Program at [phone] from 7:30 am to 4:30 pm. Wednesday-Wednesday [...] if you start any herbal or other deps-qpx-wmgpuzn product (check with your doctor, a nurse, [...] indicated above stating consult required. Consulted Anticoagulation [facility] for plan. Currently bridging: no. INR is [...] CDT Appointment Department of Laboratory Medicine in [address] [phone] Patrick Erickson D.O. [address] [place] [phone] 12/17/2023 3:50 PM CDT Appointment Department of Laboratory Medicine in [place], [place] [address] [place] [phone] Patrick Erickson D.O. [address] [address] 12/17/2023 4:20 PM CDT Anticoagulation Visit Department of Anticoagulation in [place], [place] [address] [place] [address] Soheila Zapata P.A.-C., M.S. [address] [address] 12/24/2023 10:10 AM CDT Appointment Department of Laboratory Medicine in [place], [place] [address] [place] [phone] Patrick Erickson D.O. [address] [phone] 12/28/2023 1:00 PM CDT Office Visit Department of Internal Medicine in [place], [place] [address] [place] [phone] Patrick Erickson D.O. [address] [phone] documented as of this encounter Results * INR Reflex, POCT, Blood (11/12/2023 12:09 PM CDT) [facility] INR Reflex, POCT, B 2.0 11/12/2023 12:09 PM CDT [id number] Comment: ----ADDITIONAL INFORMATION---- Standard intensity warfarin therapeutic range: 2.0 to 3.0 ?? High intensity warfarin therapeutic range: 2.5 to 3.5 Blood (Blood, Capillary) 11/12/2023 12:09 PM CDT 11/12/2023 12:09 PM CDT Patrick Erickson D.O. 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 [address] [place] [address] PCP - General Internal Medicine 08/12/22 documented as of this encounter
--- OUTSIDE RECORDS SUMMARY | 2023-12-15 13:16 | XMS_ITS | Encounter Summary ---
Author Organization [facility] Address [address] [place] [address] Care Team Providers Care Telecommunications Operator Name Role Phone Patrick Erickson D.O. Primary Care Provider +1- [phone] Encounter Details Date Type Department Care Team (Latest Contact Info) Description 11/22/2023 3:20 PM CDT - 11/22/2023 11:59 PM CDT Hospital Encounter Department of Laboratory Medicine in [place] [address] [place] [phone] Patrick Erickson D.O. 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) Anticoagulant Treatment Discharge Disposition: Home or Self Care Social History Tobacco Use Types Packs/Day Years Used Date Smoking Tobacco: Never Smokeless Tobacco: Never Alcohol Use Standard Drinks/Week Comments No 0 (1 standard drink = 0.6 oz pur e alcohol) [facility] Utilities Answer Date Recorded In the past 12 months has th e electric, gas, oil, or water [employer] threatened to shut off services in your [...] Answer Date Recorded PHQ-2 Score 0 04/27/2023 [facility] [place] of Occupat ional Health - Occupational Stress [...] your living situation today? 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 15 tablet 08/24/2023 12/06/2023 warfarin (JANTOVEN) 5 mg tabletIndications:Hy pertensive Heart With Heart Failure And Chronic Kidney Disease (CKD) Stage 3a Glomerular Filtration Rate (GFR) 45 To 59 (HCC),Hyperlipidemia On Treatment,Atrial Fibrillation Paroxysmal (HCC),Monitoring For Therapeutic Drug Therapy,Prison (Current) Anticoagulant Treatment Please take as directed by your Anticoagulation Clinic. 120 tablet 3 08/24/2023 12/06/2023 documented as of this encounter Plan of Treatment Upcoming Encounters Date Type Department Care Team (Latest Contact Info) Description 12/15/2023 4:50 PM CDT Appointment Department of Laboratory Medicine in [address] [phone] Patrick Erickson D.O. [address] [phone] 12/17/2023 3:50 PM CDT Appointment Department of Laboratory Medicine in [place], [place] 300 [place] [phone] Patrick Erickson D.O. [address] [address] 12/17/2023 4:20 PM CDT Anticoagulation Visit Department of Anticoagulation in [place], [place] [address] [place] [address] Soheila Zapata P.A.-C., M.S. [address] [address] 12/24/2023 10:10 AM CDT Appointment Department of Laboratory Medicine in [place], [place] [address] [place] [phone] Patrick Erickson D.O. [address] [address] 12/28/2023 1:00 PM CDT Office Visit Department of Internal Medicine in [place], [place] [address] [address] Patrick Erickson D.O. [address] [phone] documented as of this encounter [...] D.O. LAB POCT ORDERABLE S - DEVICE [facility] [address] [place] [address], [facility] FB60 [facility] in [place] [address] [place] [address] documented in this encounter Visit Diagnoses Diagnosis [...] Total Score: 9 02/23/20 23 7:41 PM MATCHER LEATHER PARTS documented as of this encounter Care Teams Telecommunications Operator Relationship Specialty Start Date End Date Patrick Erickson D.O. [address] [phone] PCP - General Internal Medicine 08/12/22 documented as of this encounter
--- OUTSIDE RECORDS SUMMARY | 2023-12-15 13:16 | XMS_ITS | Encounter Summary ---
Author Organization [facility] Address [address] [place] [address] Care Team Providers Care Induction Furnace Operator Name Role Phone Patrick Erickson D.O. Primary Care Provider +1- [phone] Reason for Visit * Reason Onset Date Comments Med Question 12/06/2023 Encounter Details Date Type Department Care Team (Latest Contact Info) Description 12/06/2023 Clinical Communication Department of Cardiovascular Diseases in [place], [place] [address] [address] Roberto Dumont, BROKERAGE CLERK, C.N.P. [address] [address] Med Question Social History Tobacco [...] often do you attend chur ch or jewish services? More than 4 times per year [...] your living situation today? I have a [facility] place to live 07/01/2023 Education Answer [...] Appointment Department of Laboratory Medicine in [address] [phone] Patrick Erickson D.O. [address] [address] 12/17/2023 3:50 PM CDT Appointment Department of Laboratory Medicine in [address] [address] Patrick Erickson D.O. [address] [address] 12/17/2023 4:20 PM CDT Anticoagulation Visit Department of Anticoagulation in [place], [place] [address] [place] [address] Soheila Zapata P.A.-C., M.S. [address] [address] 12/24/2023 10:10 AM CDT Appointment Department of Laboratory Medicine in [address] [address] Patrick Erickson D.O. [address] [place] [phone] 12/28/2023 1:00 PM CDT Office Visit Department of Internal Medicine in [place], [place] [address] [place] [address] Patrick Erickson D.O. [address] [phone] Scheduled Orders Name Type Priority Associated Diagnoses [...] Total Score: 9 02/23/20 23 7:41 PM SCHOOL PSYCHOLOGY PROFESSOR documented as of this encounter Care Teams Induction Furnace Operator Relationship Specialty Start Date End Date Patrick Erickson D.O. [address] [phone] PCP - General Internal Medicine 08/12/22 documented as of this encounter
--- OUTSIDE RECORDS SUMMARY | 2023-12-15 13:16 | XMS_ITS | Encounter Summary ---
Author Organization [facility] Address [address] [place] [address] Care Team Providers Care Compensation Vice President Name Role Phone Patrick Erickson D.O. Primary Care Provider +1- [phone] Reason for Referral * Outpatient (Routine) - Authorized Specialty Diagnoses / Procedures Referred By Prosper t Referred To Contact Patrikc Erickson D.O. [address] [place] [address] [facility] Referral ID Status Reason Start Date Expiration Date V isits Requested Visits Authorized [id number] Authorized 11/09/2023 05/10/2025 1 1 Scheduling Instructions Nurse AWV Do not schedule prior to due date to ensure insurance coverage Visit: Medicare Annual Wellness Never done. Encounter Details Date Type Department Care Team (Late st Contact Info) Description 11/09/2023 Orders Only [facility] PCP [facility] Patrick Erickson D.O. [address], [place] [address] Social History Tobacco Use Types Packs/Day Years Used Date Smoking Tobacco: Never Smokeless Tobacco: Never Alcohol Use Standard Drinks/Week Comments No 0 (1 standard drink = 0.6 oz pur e alcohol) [facility] Utilities Answer Date Recorded In the past 12 months has th e [employer], gas, oil, or water [employer] threatened to shut off services in your [...] Answer Date Recorded PHQ-2 Score 0 04/27/2023 [facility] [place] of Occupat ional Health - Occupational Stress [...] your living situation today? I have a [facility] place to live 07/01/2023 Education [...] CDT Appointment Department of Laboratory Medicine in [place], [place] [address] [place] [address] Patrick Erickson D.O. [address] [address] 12/17/2023 3:50 PM CDT Appointment Department of Laboratory Medicine in [place], [place] [address] [place] [address] Patrick Erickson D.O. [address] [address] 12/17/2023 4:20 PM CDT Anticoagulation Visit Department of Anticoagulation in [place], [place] [address] [place] [address] Soheila Zapata P.A.-C., M.S. [address] [place] [phone] 12/24/2023 10:10 AM CDT Appointment Department of Laboratory Medicine in [place], [place] [address] [place] [address] Patrick Erickson D.O. [address] [address] 12/28/2023 1:00 PM CDT Office Visit Department of Internal Medicine in [place], [place] [address] [place] [address] Patrick Erickson D.O. [address] [place] [phone] Scheduled Referrals Name Type Priority Associated Diagnoses Orde r Schedule Primary Care nurse visit (clinic) - [facility] Region; Medicare Annual Wellness Outpatient Referral Routine Expected: 12/07/2023, Expires: 05/07/2024 documented as of this encounter Visit Diagnoses Not on filedocumented in this encounter Additional Health Concerns Assessment Noted Time PHQ-9 Depression Total Score: 9 02/23/20 23 7:41 PM AXLE TURNER documented as of this encounter Care Teams Compensation Vice President Relationship Specialty Start Date End Date Patrick Erickson D.O. [address] [place] [address] PCP - General Internal Medicine 08/12/22 documented as of this encounter
--- OUTSIDE RECORDS SUMMARY | 2023-12-15 13:16 | XMS_ITS | Encounter Summary ---
Author Organization [facility] Address [address] [place] [address] Care Team Providers Care Town Manager Name Role Phone Patrick Erickson D.O. Primary Care Provider +1- [phone] Reason for Visit * Outpatient (Routine) - Authorized Specialty Diagnoses / Procedures Referred By Prosper t Referred To Contact Anticoagulation Soheila Zapata P.A.-C., M.S. [address] [address] [facility] Referral ID Status Reason Start Date Expiration Date V isits Requested Visits Authorized [id number] Authorized 01/07/2022 01/06/2025 300 300 Encounter Details Date Type Department Care Team (Latest Contact Info) Description 12/03/2023 3:50 PM CDT Anticoagulation Visit Department of Anticoagulation in [place], [place] [address] [place] [address] Soheila Zapata P.A.-C., M.S. 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 More than 4 times per year [...] Answer Date Recorded PHQ-2 Score 0 04/27/2023 [facility] - Occupational Stress Questionnaire Answer Date [...] your living situation today? I have a [facility] place to live 07/01/2023 [...] please call Primary Care Anticoagulation Program at [phone] from 7:30 am to 4:30 pm. Wednesday-Wednesday [...] if you start any herbal or other owtk-esc-tldptuc product (check with your doctor, a nurse, [...] this encounter Progress Notes * Beronica Fenton Pharm.Darlyn, R.Ph. - 12/03/2023 3:50 PM CDT Anticoagulation [...] CDT Appointment Department of Laboratory Medicine in [address] [phone] Patrick Erickson D.O. [address] [place] [phone] 12/17/2023 3:50 PM CDT Appointment Department of Laboratory Medicine in [place], [place] [address] [place] [address] Patrick Erickson D.OHowie [address] [place] [phone] 12/17/2023 4:20 PM CDT Anticoagulation Visit Department of Anticoagulation in [place], [place] [address] [place] [address] Soheila Zapata P.A.-C., M.S. [address] [place] [address] 12/24/2023 10:10 AM CDT Appointment Department of Laboratory Medicine in [place], [place] [address] [place] [address] Patrick Erickson D.O. [address], [place] [address] 12/28/2023 1:00 PM CDT Office Visit Department of Internal Medicine in [place], [place] [address], [place] [address] Patrick Erickson D.O. [address], [place] [address] documented as of this encounter Results * INR Reflex, POCT, Blood (12/13/2023 4:21 PM CDT) [facility] Signature INR Reflex, POCT, B 2.3 12/13/2023 4:20 PM CDT FB60 Comment: ----ADDITIONAL INFORMATION---- Standard intensity warfarin therapeutic range: 2.0 to 3.0 ?? High intensity warfarin therapeutic range: 2.5 to 3.5 Blood (Blood, Capillary) 12/13/2023 4:21 PM CDT 12/13/2023 4:21 PM CDT Patrick Erickson D.O. 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 [address] [phone] PCP - General Internal Medicine 08/12/22 documented as of this encounter
--- OUTSIDE RECORDS SUMMARY | 2023-12-15 13:16 | XMS_ITS | Encounter Summary ---
Author Organization [facility] Address [address] [place] [address] Care Team Providers Care Import Manager Name Role Phone Patrick Erickson D.O. Primary Care Provider +1- [phone] Reason for Visit * Reason Onset Date Comments Anticoagulation 11/02/2023 CCM Update-New P CP Encounter Details Date Type Department Care Team (Latest Contact Info) Description 11/02/2023 Clinical Communication Department of Anticoagulation in [place], [place] [address] [place] [address] Cullen Guillen, R.NHowie [address] [place] [phone] Anticoagulation (CCM Update-New PCP) Social History Tobacco Use Types Packs/Day Years Used Date Smoking Tobacco: Never Smokeless Tobacco: Never Alcohol Use Standard Drinks/Week Comments No 0 (1 standard drink = 0.6 oz pur e alcohol) [facility] Utilities Answer Date Recorded In the past 12 months has e [employer], gas, oil, or water [employer] threatened to shut off services in your [...] Answer Date Recorded PHQ-2 Score 0 04/27/2023 [facility] of Occupat ional Health - Occupational [...] and reimbursement for services provided outside of weii-te-tyxb office visits. If you agree with this [...] CDT Appointment Department of Laboratory Medicine in [place], [place] [address] [place] [address] Patrick Erickson D.O. [address] [place] [phone] 12/17/2023 3:50 PM CDT Appointment Department of Laboratory Medicine in [place], [place] [address] [place] [address] Patrick Erickson D.O. [address] [place] [phone] 12/17/2023 4:20 PM CDT Anticoagulation Visit Department of Anticoagulation in [place], [place] [address] [place] [address] Soheila Zapata P.A.-C., M.S. [address] [address] 12/24/2023 10:10 AM CDT Appointment Department of Laboratory Medicine in [place], [place] [address] [place] [address] Patrick Erickson D.O. [address] [phone] 12/28/2023 1:00 PM CDT Office Visit Department of Internal Medicine in [place], [place] [address] [address] Patrick Erickson D.O. 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 [address] [phone] PCP - General Internal Medicine 08/12/22 documented as of this encounter
--- OUTSIDE RECORDS SUMMARY | 2023-12-15 13:16 | XMS_ITS | Encounter Summary ---
Author Organization [facility] Address [address] [place] [address] Care Team Providers Care Human Resource Officer Name Role Phone Patrick Erickson D.O. Primary Care Provider +1- [phone] Reason for Visit * Outpatient (Routine) - Authorized Specialty Diagnoses / Procedures Referred By Prosper t Referred To Contact Anticoagulation Soheila Zapata P.A.-C., M.S. [address] [address] [facility] Referral ID Status Reason Start Date Expiration Date V isits Requested Visits Authorized [id number] Authorized 01/07/2022 01/06/2025 300 300 Encounter Details Date Type Department Care Team (Latest Contact Info) Description 11/22/2023 4:00 PM CDT Anticoagulation Visit Department of Anticoagulation in [place], [place] [address] [place] [address] Soheila Zapata P.A.-C., M.S. [address] [address] Hypertensive Heart And Chronic Kidney [...] any clubs o r organizations such as faith groups, unions, fraternal or athletic groups, or [...] Recorded PHQ-2 Score 0 04/27/2023 [facility] [place] [facility] - Occupational Stress Questionnaire Answer [...] please call Primary Care Anticoagulation Program at [phone] from 7:30 am to 4:30 pm. Wednesday-Wednesday [...] if you start any herbal or other hxig-avw-nzrkree product (check with your doctor, a nurse, [...] in 7 days per consult with Anticoagulation [facility]. Pt is on injectable anticoagulant: No. [...] CDT Appointment Department of Laboratory Medicine in [address] [address] Patrick Erickson D.O. [address] [place] [phone] 12/17/2023 3:50 PM CDT Appointment Department of Laboratory Medicine in [address] [address] Patrick Erickson D.O. [address] [phone] 12/17/2023 4:20 PM CDT Anticoagulation Visit Department of Anticoagulation in [place], [place] [address] [place] [address] Soheila Zapata P.A.-C., M.S. [address] [place] [phone] 12/24/2023 10:10 AM CDT Appointment Department of Laboratory Medicine in [address] [address] Patrick Erickson D.O. [address] [place] [phone] 12/28/2023 1:00 PM CDT Office Visit Department of Internal Medicine in [place], [place] [address] [place] [address] Patrick Erickson D.O. 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 [address] [phone] PCP - General Internal Medicine 08/12/22 documented as of this encounter
--- OUTSIDE RECORDS SUMMARY | 2023-12-15 13:16 | XMS_ITS | Encounter Summary ---
Author Organization [facility] Address [address] [place] [address] Care Team Providers Care It Architecture Consultant Name Role Phone Patrick Erickson D.O. Primary Care Provider +1- [phone] Encounter Details Date Type Department Care Team (Latest Contact Info) Description 11/02/2023 2:50 PM CDT - 11/02/2023 11:59 PM CDT Hospital Encounter Department of Laboratory Medicine in [place] [address] [place] [phone] Patrick Erickson D.O. 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 Chronic Kidney Disease Or Unspecified Chronic Kidney Disease (HCC); Hyperlipidemia On Treatment; Atrial Fibrillation Paroxysmal (HCC); Monitoring For Therapeutic Drug Therapy; [employer] Consultant (Current) Anticoagulant Treatment Discharge Disposition: Home or Self Care Social History Tobacco Use Types Packs/Day Years Used Date Smoking Tobacco: Never Smokeless Tobacco: Never Alcohol Use Standard Drinks/Week Comments No 0 (1 standard drink = 0.6 oz pur e alcohol) [facility] Utilities Answer Date Recorded In the past 12 months has th e electric, gas, oil, or water [employer] threatened to shut off services in your [...] Date Recorded PHQ-2 Score 0 04/27/2023 [facility] [place] of Occupat ional Health - Occupational [...] living situation today? I have a [facility] place to live 07/01/2023 Education Answer [...] tablet every day 90 tablet 3 04/21/2023 ylatsni-pvpy-mpibx-o reg-capryl 100 mg-150 mg- 50 mg-150 mg [...] Treatment,Atrial Fibrillation Paroxysmal (HCC),Monitoring For Therapeutic Drug Therapy,[employer] Consultant (Current) Anticoagulant Treatment Please take as directed by your Anticoagulation Clinic. 15 tablet 08/24/2023 12/06/2023 warfarin (JANTOVEN) 5 mg tabletIndications:Hy pertensive Heart With Heart Failure And Chronic Kidney Disease (CKD) Stage 3a Glomerular Filtration Rate (GFR) 45 To 59 (HCC),Hyperlipidemia On Treatment,Atrial Fibrillation Paroxysmal (HCC),Monitoring For Therapeutic Drug Therapy,Skilled Nursing (Current) Anticoagulant Treatment Please take as directed by your Anticoagulation Clinic. 120 tablet 3 08/24/2023 12/06/2023 documented as of this encounter Plan of Treatment Upcoming Encounters Date Type Department Care Team (Latest Contact Info) Description 12/15/2023 4:50 PM CDT Appointment Department of Laboratory Medicine in [address] [phone] Patrick Erickson D.O. [address] [address] 12/17/2023 3:50 PM CDT Appointment Department of Laboratory Medicine in [place], [place] [address] [place] [phone] Patrick Erickson D.O. [address] [address] 12/17/2023 4:20 PM CDT Anticoagulation Visit Department of Anticoagulation in [place], [place] [address] [place] [address] Soheila Zapata P.A.-C., M.S. [address] [address] 12/24/2023 10:10 AM CDT Appointment Department of Laboratory Medicine in [place], [place] [address] [place] [phone] Patrick Erickson D.O. [address] [address] 12/28/2023 1:00 PM CDT Office Visit Department of Internal Medicine in [place], [place] [address] [address] Patrick Erickson D.O. [address] [address] documented as of this encounter [...] D.O. 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 [address] [address] PCP - General Internal Medicine 08/12/22 documented as of this encounter
--- OUTSIDE RECORDS SUMMARY | 2023-12-15 13:16 | XMS_ITS | Encounter Summary ---
Author Organization [facility] Address [address] [place] [address] Care Team Providers Care Crushing Foreman Name Role Phone Patrick Erickson D.O. Primary Care Provider +1- [phone] Reason for Visit * Reason Onset Date Comments Cough 11/27/2023 Encounter Details Date Type Department Care Team (Late st Contact Info) Description 11/27/2023 Nurse Triage Department of Internal Medicine in [place], [place] [address], [place] [phone] Kari Olivarez, RHowieNHowie [address] [place] [address] Cough Social History Tobacco Use Types Packs/Day Years Used Date Smoking Tobacco: Never Smokeless Tobacco: Never Alcohol Use Standard Drinks/Week Comments No 0 (1 standard drink = 0.6 oz pur e alcohol) [facility] Utilities Answer Date Recorded In the past 12 months has e [employer], gas, oil, or water [employer] threatened to shut off services in your [...] any clubs o r organizations such as yarsani groups, unions, fraternal or athletic groups, or [...] Answer Date Recorded PHQ-2 Score 0 04/27/2023 [facility] - Occupational [...] their treatment options. Patients who reside in jail facilities will be informed of their positive test results via their facility care team, portal, or US mail but will NOT be called by the [facility] Care team to discuss treatment. Patients should work with their facility care team for treatment options. - [facility] Virtual (COVID-19) Care Team * Telephone Encounter [...] your documented past medical history in the [facility] medical record. If you should develop any [...] Disposition Cough Protocols used: Cough - Acute Ehy-Xsgmesosej-ZMQPS- Care Advice Patient/Caregiver understands and will follow care advice?: Yes, able to teach back Cough - Acute Ttp-Wfyldqhpma-BVVXQ- Nurse Kari Ant Nov 27, 2023 12:50 [...] with you. * Cough drops are available fppu-vsf-tbtsych (OTC). * HOME REMEDY - HARD CANDY: Hard candy works just as well as a medicine-flavored OTC cough drops. COUGH MEDICINES: * COUGH DROPS: Jthp-wxh-mkrkfyp cough drops can help a lot, especially for mild coughs. They soothean irritated throat and remove the tickle sensation in the back of the throat. Cough drops are easyto carry with you. * COUGH SYRUP WITH DEXTROMETHORPHAN: An amil-jyr-awhdbjb cough syrup can help your cough. The most common cough suppressant in uynt-hhw-eicgzhp cough medicines is dextromethorphan. * HOME REMEDY - HARD CANDY: Hard candy works just as well as uunr-zkc-vzghlwq cough drops. People who have diabetes should [...] CDT Appointment Department of Laboratory Medicine in [address] [address] Patrick Erickson D.O. [address] [address] 12/17/2023 3:50 PM CDT Appointment Department of Laboratory Medicine in [address] [address] Patrick Erickson D.O. [address] [address] 12/17/2023 4:20 PM CDT Anticoagulation Visit Department of Anticoagulation in [place], [place] [address] [place] [address] Soheila Zapata P.A.-C., M.S. [address] [place] [address] 12/24/2023 10:10 AM CDT Appointment Department of Laboratory Medicine in [address] [address] Patrick Erickson D.O. [address] [address] 12/28/2023 1:00 PM CDT Office Visit Department of Internal Medicine in [place], [place] [address] [place] [address] Patrick Erickson D.O. [address] [address] documented as of this encounter Procedures Procedure Name Priority Date/Time Associated Diagnosis Comments EXTM HOME SARS CORONAVIRUS-2 (COVID-19) ANTIGEN, V Routine 11/26/2023 6:00 PM CDT documented in this encounter Results * (ABNORMAL) EXT Home SARS Coronavirus-2 (COVID-19) Antigen (11/26/2023 6:00 PM CDT) EXT Home SARS-CoV-2 Antigen Presumptive Positive(A) Presumptive Negative OTHER (SPECIFY IN WATCH CRYSTAL CUTTER) Swab 11/26/2023 6:00 PM CDT Historical Provider LAB MICROBIOLOGY - G ENERAL ORDERABLES OTHER (SPECIFY IN WATCH CRYSTAL CUTTER) N/A documented in this encounter Visit Diagnoses Not on filedocumented in this encounter Additional Health Concerns Infection Onset Date Last Indicated Resolved Time COVID19 11/26/2023 11/26/2023 Assessment Noted Time PHQ-9 Depression Total Score: 9 02/23/20 7:41 PM 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 [address] [place] [address] PCP - General Internal Medicine 08/12/22 documented as of this encounter
--- OUTSIDE RECORDS SUMMARY | 2023-12-15 13:16 | XMS_ITS | Encounter Summary ---
Author Organization [facility] Address [address] [place] [address] Care Team Providers Care Telegraph And Teletype Operator Name Role Phone Patrick Erickson D.O. Primary Care Provider +1- [phone] Reason for Visit * Outpatient (Routine) - Authorized Specialty Diagnoses / Procedures Referred By Prosper t Referred To Contact Anticoagulation Soheila Zapata P.A.-C., M.S. [address] [address] [facility] Referral ID Status Reason Start Date Expiration Date V isits Requested Visits Authorized [id number] Authorized 01/07/2022 01/06/2025 300 300 Encounter Details Date Type Department Care Team (Latest Contact Info) Description 11/12/2023 12:30 PM CDT Anticoagulation Visit Department of Anticoagulation in [place], [place] [address] [place] [address] Soheila Zapata P.A.-C., M.S. 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 More than 4 times per year [...] Answer Date Recorded PHQ-2 Score 0 04/27/2023 [facility] - Occupational Stress Questionnaire Answer [...] please call Primary Care Anticoagulation Program at [phone] from 7:30 am to 4:30 pm. Wednesday-Wednesday [...] if you start any herbal or other snos-mhq-ibvngoh product (check with your doctor, a nurse, [...] CDT Appointment Department of Laboratory Medicine in [address] [phone] Patrick Erickson D.O. [address] [address] 12/17/2023 3:50 PM CDT Appointment Department of Laboratory Medicine in [place], [place] [address] [place] [phone] Patrick Erickson D.O. [address] [address] 12/17/2023 4:20 PM CDT Anticoagulation Visit Department of Anticoagulation in [place], [place] [address] [place] [address] Soheila Zapata P.A.-C., M.S. [address] [place] [address] 12/24/2023 10:10 AM CDT Appointment Department of Laboratory Medicine in [place], [place] [address] [place] [phone] Patrick Erickson D.O. [address] [address] 12/28/2023 1:00 PM CDT Office Visit Department of Internal Medicine in [place], [place] [address] [place] [address] Patrick Erickson D.O. [address] [address] documented as of this encounter Results * [...] D.O. 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 [address], [place] [address] PCP - General Internal Medicine 08/12/22 documented as of this encounter
--- OUTSIDE RECORDS SUMMARY | 2023-12-15 13:17 | XMS_ITS | Encounter Summary ---
Author Organization [facility] Address [address] [place] [address] Care Team Providers Care Wire Winder Name Role Phone Patrick Erickson D.O. Primary Care Provider +1- [phone] Encounter Details Date Type Department Care Team (Latest Contact Info) Description 10/15/2023 2:50 PM CDT - 10/15/2023 11:59 PM CDT Hospital Encounter Department of Laboratory Medicine in [place] [address] [place] [phone] Patrick Erickson D.O. 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 Chronic Kidney Disease Or Unspecified Chronic Kidney Disease (HCC); Hyperlipidemia On Treatment; Atrial Fibrillation Paroxysmal (HCC); Monitoring For Therapeutic Drug Therapy; Pediatric Nephrologist (Current) Anticoagulant Treatment Discharge Disposition: Home or Self Care Social History Tobacco Use Types Packs/Day Years Used Date Smoking Tobacco: Never Smokeless Tobacco: Never Alcohol Use Standard Drinks/Week Comments No 0 (1 standard drink = 0.6 oz pur e alcohol) [facility] Utilities Answer Date Recorded In the past 12 months has th e electric, gas, oil, or water [employer] threatened to shut off services in your [...] any clubs o r organizations such as restoration groups, unions, fraternal or athletic groups, or [...] PHQ-2 Score 0 04/27/2023 [facility] [place] of Occupat ional Health - Occupational Stress [...] your living situation today? I have a [facility] place to live 07/01/2023 Education Answer [...] tablet every day 90 tablet 3 04/21/2023 nwichdp-ikba-yplck-o reg-capryl 100 mg-150 mg- 50 mg-150 mg [...] Treatment,Atrial Fibrillation Paroxysmal (HCC),Monitoring For Therapeutic Drug Therapy,Pediatric Nephrologist (Current) Anticoagulant Treatment Please take as directed by your Anticoagulation Clinic. 15 tablet 08/24/2023 12/06/2023 warfarin (JANTOVEN) 5 mg tabletIndications:Hy pertensive Heart With Heart Failure And Chronic Kidney Disease (CKD) Stage 3a Glomerular Filtration Rate (GFR) 45 To 59 (HCC),Hyperlipidemia On Treatment,Atrial Fibrillation Paroxysmal (HCC),Monitoring For Therapeutic Drug Therapy,Halfway (Current) Anticoagulant Treatment Please take as directed by your Anticoagulation Clinic. 120 tablet 3 08/24/2023 12/06/2023 documented as of this encounter Plan of Treatment Upcoming Encounters Date Type Department Care Team (Latest Contact Info) Description 12/15/2023 4:50 PM CDT Appointment Department of Laboratory Medicine in [address] [phone] Patrick Erickson D.O. [address] [address] 12/17/2023 3:50 PM CDT Appointment Department of Laboratory Medicine in [place], [place] [address] [place] [phone] Patrick Erickson D.O. [address] [address] 12/17/2023 4:20 PM CDT Anticoagulation Visit Department of Anticoagulation in [place], [place] [address] [place] [address] Soheila Zapata P.A.-C., M.S. [address] [address] 12/24/2023 10:10 AM CDT Appointment Department of Laboratory Medicine in [place], [place] [address] [place] [phone] Patrick Erickson D.O. [address] [address] 12/28/2023 1:00 PM CDT Office Visit Department of Internal Medicine in [place], [place] [address] [address] Patrick Erickson D.O. [address] [address] documented as of this encounter [...] POCT ORDERABLE S - DEVICE 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 [address] [address] PCP - General Internal Medicine 08/12/22 documented as of this encounter
--- OUTSIDE RECORDS SUMMARY | 2023-12-15 13:17 | XMS_ITS | Encounter Summary ---
Author Organization [facility] Address [address] [place] [address] Care Team Providers Care Desolderer Name Role Phone Patrick Erickson D.O. Primary Care Provider +1- [phone] Reason for Visit * Outpatient (Routine) - Authorized Specialty Diagnoses / Procedures Referred By Prosper t Referred To Contact Anticoagulation Soheila Zapata P.A.-C., M.S. [address] [address] [facility] Referral ID Status Reason Start Date Expiration Date V isits Requested Visits Authorized [id number] Authorized 01/07/2022 01/06/2025 300 300 Encounter Details Date Type Department Care Team (Latest Contact Info) Description 10/19/2023 10:10 AM CDT Anticoagulation Visit Department of Anticoagulation in [place], [place] [address] [place] [address] Soheila Zapata P.A.-C., M.S. [address] [address] Hypertensive Heart And Chronic Kidney [...] 0.6 oz pur e alcohol) [facility] Utilities Answer Date Recorded In the [...] often do you attend chur ch or anabaptist services? More than 4 times per year 05/30/2022 Do you belong to any clubs o r organizations such as hinduism groups, unions, fraternal or athletic groups, or [...] Answer Date Recorded PHQ-2 Score 0 04/27/2023 [facility] [place] [facility] - Occupational Stress Questionnaire Answer [...] please call Primary Care Anticoagulation Program at [phone] from 7:30 am to 4:30 pm. Wednesday-Wednesday [...] if you start any herbal or other hicn-utw-eceorpd product (check with your doctor, a nurse, [...] information: Provider consulted: Champ Fenton- Anticoagulation [facility] Pt is on injectable anticoagulant: No. [...] CDT Appointment Department of Laboratory Medicine in [address] [address] Patrick Erickson D.O. [address] [address] 12/17/2023 3:50 PM CDT Appointment Department of Laboratory Medicine in [place], [place] [address] [place] [phone] Patrick Erickson D.O. [address] [address] 12/17/2023 4:20 PM CDT Anticoagulation Visit Department of Anticoagulation in [place], [place] [address] [place] [address] Soheila Zapata P.A.-C., M.S. [address] [address] 12/24/2023 10:10 AM CDT Appointment Department of Laboratory Medicine in [place], [place] [address] [place] [address] Patrick Erickson D.O. [address] [address] 12/28/2023 1:00 PM CDT Office Visit Department of Internal Medicine in [place], [place] [address] [address] Patrick Erickson D.O. 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 [address] [place] [address] PCP - General Internal Medicine 08/12/22 documented as of this encounter
--- OUTSIDE RECORDS SUMMARY | 2023-12-15 13:17 | XMS_ITS | Encounter Summary ---
Author Organization [facility] Address [address] [place] [address] Care Team Providers Care Electrical Sign Wirer Name Role Phone Patrick Erickson D.O. Primary Care Provider +1- [phone] Encounter Details Date Type Department Care Team (Latest Contact Info) Description 10/01/2023 2:30 PM CDT - 10/01/2023 11:59 PM CDT Hospital Encounter Department of Laboratory Medicine in [place], [place] [address] [place] [address] Patrick Erickson D.O. 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) Anticoagulant Treatment Discharge Disposition: Home or Self Care Social History Tobacco Use Types Packs/Day Years Used Date Smoking Tobacco: Never Smokeless Tobacco: Never Alcohol Use Standard Drinks/Week Comments No 0 (1 standard drink = 0.6 oz pur e alcohol) [facility] Utilities Answer Date Recorded In the past 12 months has th e [employer], gas, oil, or water [employer] threatened to shut off services in [...] Answer Date Recorded PHQ-2 Score 0 04/27/2023 [facility] [place] of Occupat ional Health - Occupational Stress [...] your living situation today? 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 120 tablet 3 08/24/2023 12/06/2023 documented as of this encounter Plan of Treatment Upcoming Encounters Date Type Department Care Team (Latest Contact Info) Description 12/15/2023 4:50 PM CDT Appointment Department of Laboratory Medicine in [address] [phone] Patrick Erickson D.O. [address] [address] 12/17/2023 3:50 PM CDT Appointment Department of Laboratory Medicine in [place], [place] [address] [place] [address] Patrick Erickson D.O. [address] [address] 12/17/2023 4:20 PM CDT Anticoagulation Visit Department of Anticoagulation in [place], [place] [address] [place] [address] Soheila Zapata P.A.-C., M.S. [address] [address] 12/24/2023 10:10 AM CDT Appointment Department of Laboratory Medicine in [place], [place] [address] [place] [address] Patrick Erickson D.O. [address] [address] 12/28/2023 1:00 PM CDT Office Visit Department of Internal Medicine in [place], [place] [address] [address] Patrick Erickson D.O. 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 Glomerular Filtration Rate (GFR) 45 To 59 (HCC) Hyperlipidemia On Treatment Atrial Fibrillation Paroxysmal (HCC) Monitoring For Therapeutic Drug Therapy Retirement (Current) [...] ORDERABLE S - DEVICE [facility] [address] [place] [address], [facility] OWAT [facility] in [place] [address] [place] [address] documented in this encounter Visit Diagnoses Diagnosis 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 0 [address] [address] PCP - General Internal Medicine 08/12/22 documented as of this encounter
--- OUTSIDE RECORDS SUMMARY | 2023-12-15 13:17 | XMS_ITS | Encounter Summary ---
Author Organization [facility] Address [address] [place] [address] Care Team Providers Care Grey Washer Name Role Phone Patrick Erickson D.O. Primary Care Provider +1- [phone] Encounter Details Date Type Department Care Team (Latest Contact Info) Description 10/07/2023 2:49 PM CDT - 10/07/2023 11:59 PM CDT Hospital Encounter Department of Laboratory Medicine in [place], [place] [address] [place] [phone] Patrick Erickson D.O. [address] [place] [phone] Atrial Fibrillation Paroxysmal (HCC) Discharge Disposition: Home [...] How often do you attend chur or shinto services? More than 4 times per year 05/30/2022 Do you belong to any clubs o r organizations such as episcopal groups, unions, fraternal or athletic groups, or [...] Answer Date Recorded PHQ-2 Score 0 04/27/2023 [facility] of Occupat ional Health - [...] your living situation today? I have a [facility] place to live 07/01/2023 Education Answer Date [...] tablet every day 90 tablet 3 04/21/2023 rqabezf-yzzk-pofam-o reg-capryl 100 mg-150 mg- 50 mg-150 mg [...] Treatment,Atrial Fibrillation Paroxysmal (HCC),Monitoring For Therapeutic Drug Therapy,Brickmason (Current) Anticoagulant Treatment Please take as directed by your Anticoagulation Clinic. 15 tablet 08/24/2023 12/06/2023 warfarin (JANTOVEN) 5 mg tabletIndications:Hy pertensive Heart With Heart Failure And Chronic Kidney Disease (CKD) Stage 3a Glomerular Filtration Rate (GFR) 45 To 59 (HCC),Hyperlipidemia On Treatment,Atrial Fibrillation Paroxysmal (HCC),Monitoring For Therapeutic Drug Therapy,Brickmason (Current) Anticoagulant Treatment Please take as directed by your Anticoagulation Clinic. 120 tablet 3 08/24/2023 12/06/2023 documented as of this encounter Plan of Treatment Upcoming Encounters Date Type Department Care Team (Latest Contact Info) Description 12/15/2023 4:50 PM CDT Appointment Department of Laboratory Medicine in [address] [place] [phone] Patrick Erickson D.O. [address] [place] [phone] 12/17/2023 3:50 PM CDT Appointment Department of Laboratory Medicine in [place], [place] [address] [place] [phone] Patrick Erickson D.O. [address] [address] 12/17/2023 4:20 PM CDT Anticoagulation Visit Department of Anticoagulation in [place], [place] [address] [place] [address] Soheila Zapata P.A.-C., M.S. [address] [place] [address] 12/24/2023 10:10 AM CDT Appointment Department of Laboratory Medicine in [place], [place] [address] [place] [phone] Patrick Erickson D.O. [address] [phone] 12/28/2023 1:00 PM CDT Office Visit Department of Internal Medicine in [place], [place] [address] [place] [address] Patrick Erickson D.O. 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 [address] [place] [address] PCP - General Internal Medicine 08/12/22 documented as of this encounter
--- OUTSIDE RECORDS SUMMARY | 2023-12-15 13:17 | XMS_ITS | Encounter Summary ---
Author Organization [facility] Address [address] [place] [address] Care Team Providers Care Design Analyst Name Role Phone Patrick Erickson D.O. Primary Care Provider +1- [phone] Encounter Details Date Type Department Care Team (Latest Contact Info) Description 09/24/2023 2:50 PM CDT - 09/24/2023 11:59 PM CDT Hospital Encounter Department of Laboratory Medicine in [place] [address] [place] [phone] Patrick Erickson D.O. 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) Anticoagulant Treatment Discharge Disposition: Home or Self Care Social History Tobacco Use Types Packs/Day Years Used Date Smoking Tobacco: Never Smokeless Tobacco: Never Alcohol Use Standard Drinks/Week Comments No 0 (1 standard drink = 0.6 oz pur e alcohol) [facility] Utilities Answer Date Recorded In the past 12 months has th e electric, gas, oil, or water [employer] threatened to shut off services in your [...] Score 0 04/27/2023 [employer] [place] of Occupat ional Health - Occupational Stress [...] tablet every day 90 tablet 3 04/21/2023 ewuvqzy-qzvv-beumy-o reg-capryl 100 mg-150 mg- 50 mg-150 mg [...] Treatment,Atrial Fibrillation Paroxysmal (HCC),Monitoring For Therapeutic Drug Therapy,Software Support Specialist (Current) Anticoagulant Treatment Please take as directed by your Anticoagulation Clinic. 15 tablet 08/24/2023 12/06/2023 warfarin (JANTOVEN) 5 mg tabletIndications:Hy pertensive Heart With Heart Failure And Chronic Kidney Disease (CKD) Stage 3a Glomerular Filtration Rate (GFR) 45 To 59 (HCC),Hyperlipidemia On Treatment,Atrial Fibrillation Paroxysmal (HCC),Monitoring For Therapeutic Drug Therapy,Software Support Specialist (Current) Anticoagulant Treatment Please take as directed by your Anticoagulation Clinic. 120 tablet 3 08/24/2023 12/06/2023 documented as of this encounter Plan of Treatment Upcoming Encounters Date Type Department Care Team (Latest Contact Info) Description 12/15/2023 4:50 PM CDT Appointment Department of Laboratory Medicine in [address] [phone] Patrick Erickson D.O. [address] [address] 12/17/2023 3:50 PM CDT Appointment Department of Laboratory Medicine in [place], [place] [address] [place] [phone] Patrick Erickson D.O. [address] [address] 12/17/2023 4:20 PM CDT Anticoagulation Visit Department of Anticoagulation in [place], [place] [address] [place] [address] Soheila Zapata P.A.-C., M.S. [address] [address] 12/24/2023 10:10 AM CDT Appointment Department of Laboratory Medicine in [place], [place] [address] [place] [phone] Patrick Erickson D.O. [address] [address] 12/28/2023 1:00 PM CDT Office Visit Department of Internal Medicine in [place], [place] [address] [address] Patrick Erickson D.O. [address] [address] documented as of this [...] D.O. 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 [address] [phone] PCP - General Internal Medicine 08/12/22 documented as of this encounter
--- OUTSIDE RECORDS SUMMARY | 2023-12-15 13:17 | XMS_ITS | Encounter Summary ---
Author Organization [facility] Address [address] [place] [address] Care Team Providers Care Editor Department Name Role Phone Patrick Erickson D.O. Primary Care Provider +1- [phone] Encounter Details Date Type Department Care Team (Latest Contact Info) Description 09/21/2023 11:55 AM CDT - 09/21/2023 11:59 PM CDT Hospital Encounter Department of Laboratory Medicine in [place] [address] [place] [phone] Patrick Erickson D.O. 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 Glomerular Filtration Rate (GFR) 45 To 59 (HCC); Hyperlipidemia On Treatment; Atrial Fibrillation Paroxysmal (HCC); Monitoring For Therapeutic Drug Therapy; Intermediate (Current) Anticoagulant Treatment Discharge Disposition: Home or Self Care Social History Tobacco Use Types Packs/Day Years Used Date Smoking Tobacco: Never Smokeless Tobacco: Never Alcohol Use Standard Drinks/Week Comments No 0 (1 standard drink = 0.6 oz pur e alcohol) [facility] Utilities Answer Date Recorded In the past 12 months has th e electric, gas, oil, or water [employer] threatened to shut off services in your [...] often do you attend chur ch or nondenominational services? More than 4 times per year 05/30/2022 Do you belong to any clubs o r organizations such as mormonism groups, unions, fraternal or athletic groups, or [...] Recorded PHQ-2 Score 0 04/27/2023 [facility] [place] of Occupat ional Health - Occupational Stress [...] tablet every day 90 tablet 3 04/21/2023 ngqikmw-ofng-wluoi-o reg-capryl 100 mg-150 mg- 50 mg-150 mg [...] Treatment,Atrial Fibrillation Paroxysmal (HCC),Monitoring For Therapeutic Drug Therapy,Doctor'S Assistant (Current) Anticoagulant Treatment Please take as directed by your Anticoagulation Clinic. 120 tablet 3 08/24/2023 12/06/2023 documented as of this encounter Plan of Treatment Upcoming Encounters Date Type Department Care Team (Latest Contact Info) Description 12/15/2023 4:50 PM CDT Appointment Department of Laboratory Medicine in [address] [phone] Patrick Erickson D.O. [address] [address] 12/17/2023 3:50 PM CDT Appointment Department of Laboratory Medicine in [place], [place] [address] [place] [phone] Patrick Erickson D.O. [address] [address] 12/17/2023 4:20 PM CDT Anticoagulation Visit Department of Anticoagulation in [place], [place] [address] [place] [address] Soheila Zapata P.A.-C., M.S. [address] [address] 12/24/2023 10:10 AM CDT Appointment Department of Laboratory Medicine in [place], [place] [address] [place] [phone] Patrick Erickson D.O. [address] [address] 12/28/2023 1:00 PM CDT Office Visit Department of Internal Medicine in [place], [place] [address] [address] Patrick Erickson D.O. [address] [address] documented as of this encounter Procedures Procedure [...] Paroxysmal (HCC) Monitoring For Therapeutic Drug Therapy Intermediate (Current) Anticoagulant Treatment documented in this encounter [...] CDT Patrick Erickson D.O. LAB BLOOD ADD-ON [facility] [address] [place] [address], [facility] in [place] [address] [place] [address] * (ABNORMAL) INR Reflex, POCT, Blood (09/21/2023 12:39 PM CDT) INR Reflex, POCT, B 5.4(CH) 09/21/2023 12:38 PM CDT FB60 Comment: ----ADDITIONAL INFORMATION---- Standard intensity warfarin therapeutic range: 2.0 to 3.0 ?? High intensity warfarin therapeutic range: 2.5 to 3.5 Blood (Blood, Capillary) 09/21/2023 12:39 PM CDT 09/21/2023 12:38 PM CDT Patrick Erickson D.O. 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 [address] [place] [address] PCP - General Internal Medicine 08/12/22 documented as of this encounter
--- OUTSIDE RECORDS SUMMARY | 2023-12-15 13:17 | XMS_ITS | Encounter Summary ---
Author Organization [facility] Address [address] [place] [address] Care Team Providers Care Sterilizer Machine Operator Name Role Phone Patrick Erickson D.O. Primary Care Provider +1- [phone] Reason for Visit * Outpatient (Routine) - Authorized Specialty Diagnoses / Procedures Referred By Prosper t Referred To Contact Anticoagulation Soheila Zapata P.A.-C., M.S. [address] [address] [facility] Referral ID Status Reason Start Date Expiration Date V isits Requested Visits Authorized [id number] Authorized 01/07/2022 01/06/2025 300 300 Encounter Details Date Type Department Care Team (Latest Contact Info) Description 09/24/2023 3:30 PM CDT Anticoagulation Visit Department of Anticoagulation in [place], [place] [address] [place] [address] Soheila Zapata P.A.-C., M.S. 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) Anticoagulant Treatment Social History Tobacco Use Types Packs/Day Years Used Date Smoking Tobacco: Never Smokeless Tobacco: Never Alcohol Use Standard Drinks/Week Comments No 0 (1 standard drink = 0.6 oz pur e alcohol) [facility] Utilities Answer Date Recorded In [...] any clubs o r organizations such as latter-day groups, unions, fraternal or athletic groups, or [...] Answer Date Recorded PHQ-2 Score 0 04/27/2023 [facility] [place] [facility] - Occupational Stress Questionnaire Answer [...] please call Primary Care Anticoagulation Program at [phone] from 7:30 am to 4:30 pm. Wednesday-Wednesday [...] if you start any herbal or other [id number]-[id number] product (check with your doctor, a nurse, [...] indicated above stating consult required. Consulted Anticoagulation [facility] for plan. Currently bridging: no. INR is therapeutic/supratherapeutic. Additional dosing or follow-up information: Provider consulted: Edna Sevilla- Anticoagulation [facility] Pt is on injectable anticoagulant: No. Plan [...] Appointment Department of Laboratory Medicine in [address] [phone] Patrick Erickson D.O. [address] [phone] 12/17/2023 3:50 PM CDT Appointment Department of Laboratory Medicine in [address] [phone] Patrick Erickson D.O. [address] [place] [phone] 12/17/2023 4:20 PM CDT Anticoagulation Visit Department of Anticoagulation in [place], [place] [address] [place] [address] Soheila Zapata P.A.-C., M.S. [address] [place] [phone] 12/24/2023 10:10 AM CDT Appointment Department of Laboratory Medicine in [address] [phone] Patrick Erickson D.O. [address] [place] [phone] 12/28/2023 1:00 PM CDT Office Visit Department of Internal Medicine in [place], [place] [address] [place] [address] Patrick Erickson D.O. [address] [place] [address] documented as of this encounter [...] D.O. 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 [address] [place] [phone] PCP - General Internal Medicine 08/12/22 documented as of this encounter
--- OUTSIDE RECORDS SUMMARY | 2023-12-15 13:17 | XMS_ITS | Encounter Summary ---
Author Organization [facility] Address [address] [place] [address] Care Team Providers Care Acting Section Chief Name Role Phone Patrick Erickson D.O. Primary Care Provider +1- [phone] Reason for Visit * Reason Onset Date Comments Anticoagulation 10/01/2023 Out of range INR . Encounter Details Date Type Department Care Team (Latest Contact Info) Description 10/01/2023 Clinical Communication Department of Anticoagulation in [place], [place] [address] [place] [address] [place] Mendoza, RHowieNHowie Anticoagulation (Out of range INR.) Social History Tobacco Use Types Packs/Day Years Used Date Smoking Tobacco: Never Smokeless Tobacco: Never Alcohol Use Standard Drinks/Week Comments No 0 (1 standard drink = 0.6 oz pur e alcohol) [facility] Utilities Answer Date Recorded In the past 12 months has [employer], gas, oil, or water [employer] threatened to shut off services in your [...] often do you attend chur ch or mosque services? More than 4 times per year [...] Appointment Department of Laboratory Medicine in [place], [place] [address] [place] [phone] Patrick Erickson D.O. [address] [phone] 12/17/2023 3:50 PM CDT Appointment Department of Laboratory Medicine in [place], [place] [address] [place] [address] Patrick Erickson D.O. [address] [phone] 12/17/2023 4:20 PM CDT Anticoagulation Visit Department of Anticoagulation in [place], [place] [address] [place] [address] Soheila Zapata P.A.-C., M.S. [address] [phone] 12/24/2023 10:10 AM CDT Appointment Department of Laboratory Medicine in [address] [address] Patrick Erickson D.O. [address] [address] 12/28/2023 1:00 PM CDT Office Visit Department of Internal Medicine in [place], [place] [address] [place] [phone] Patrick Erickson D.O. 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 [address] [place] [address] PCP - General Internal Medicine 08/12/22 documented as of this encounter
--- OUTSIDE RECORDS SUMMARY | 2023-12-15 13:17 | XMS_ITS | Encounter Summary ---
Author Organization [facility] Address [address] [place] [address] Care Team Providers Care Billing And Accounting Staff Assistant Name Role Phone Patrick Erickson D.O. Primary Care Provider +1- [phone] Encounter Details Date Type Department Care Team (Latest Contact Info) Description 10/28/2023 2:50 PM CDT - 10/28/2023 11:59 PM CDT Hospital Encounter Department of Laboratory Medicine in [place] [address] [place] [phone] Patrick Erickson D.O. [address] [place] [phone] Hypertensive Heart And Chronic Kidney Disease With Heart Failure And Stage 1 To 4 Chronic Kidney Disease Or Unspecified Chronic Kidney Disease (HCC); Hyperlipidemia On Treatment; Atrial Fibrillation Paroxysmal (HCC); Monitoring For Therapeutic Drug Therapy; Belt Lacer (Current) Anticoagulant Treatment Discharge Disposition: Home or Self Care Social History Tobacco Use Types Packs/Day Years Used Date Smoking Tobacco: Never Smokeless Tobacco: Never Alcohol Use Standard Drinks/Week Comments No 0 (1 standard drink = 0.6 oz pur e alcohol) [facility] Utilities Answer Date Recorded In the past 12 months has th e electric, gas, oil, or water [employer] threatened to shut off services in your [...] Recorded PHQ-2 Score 0 04/27/2023 [facility] [place] of Occupat ional Health - Occupational Stress [...] situation today? I have a [facility] place to live 07/01/2023 Education [...] tablet every day 90 tablet 3 04/21/2023 zaonlpm-ctkh-ahdst-o reg-capryl 100 mg-150 mg- 50 mg-150 mg [...] Treatment,Atrial Fibrillation Paroxysmal (HCC),Monitoring For Therapeutic Drug Therapy,Belt Lacer (Current) Anticoagulant Treatment Please take as directed [...] CDT Appointment Department of Laboratory Medicine in [address] [phone] Patrick Erickson D.O. [address] [address] 12/17/2023 3:50 PM CDT Appointment Department of Laboratory Medicine in [place], [place] [address] [place] [phone] Patrick Erickson D.O. [address] [address] 12/17/2023 4:20 PM CDT Anticoagulation Visit Department of Anticoagulation in [place], [place] [address] [place] [address] Soheila Zapata P.A.-C., M.S. [address] [phone] 12/24/2023 10:10 AM CDT Appointment Department of Laboratory Medicine in [place], [place] [address] [place] [phone] Patrick Erickson D.O. [address] [address] 12/28/2023 1:00 PM CDT Office Visit Department of Internal Medicine in [place], [place] [address] [address] Patrick Erickson D.O. [address] [phone] documented as of this encounter [...] S - DEVICE [facility] [address] [place] [address], [facility] FB60 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 [address] [phone] PCP - General Internal Medicine 08/12/22 documented as of this encounter
--- OUTSIDE RECORDS SUMMARY | 2023-12-15 13:17 | XMS_ITS | Encounter Summary ---
Author Organization [facility] Address [address] [place] [address] Care Team Providers Care Hog Feeder Name Role Phone Patrick Erickson D.O. Primary Care Provider +1- [phone] Reason for Visit * Outpatient (Routine) - Authorized Specialty Diagnoses / Procedures Referred By Prosper t Referred To Contact Anticoagulation Soheila Zapata P.A.-C., M.S. [address] [address] [facility] Referral ID Status Reason Start Date Expiration Date V isits Requested Visits Authorized [id number] Authorized 01/07/2022 01/06/2025 300 300 Encounter Details Date Type Department Care Team (Latest Contact Info) Description 09/21/2023 1:30 PM CDT Anticoagulation Visit Department of Anticoagulation in [place], [place] [address] [place] [address] Soehila Zapata P.A.-C., M.S. 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 Utilities Answer Date Recorded In the [...] often do you attend chur ch or spiritism services? More than 4 times per year [...] Answer Date Recorded PHQ-2 Score 0 04/27/2023 [facility] - Occupational Stress Questionnaire Answer [...] living situation today? I have a [facility] place to live 07/01/2023 Education Answer [...] indicated above stating consult required. Consulted Anticoagulation [facility] for plan. Currently bridging: no. INR is therapeutic/supratherapeutic. Additional dosing or follow-up information: Next INR in 3 days per consult with Anticoagulation [facility] Pt is on injectable anticoagulant: [...] Appointment Department of Laboratory Medicine in [address] [phone] Patrick Erickson D.O. [address] [address] 12/17/2023 3:50 PM CDT Appointment Department of Laboratory Medicine in [address] [phone] Patrick Erickson D.O. [address] [place] [address] 12/17/2023 4:20 PM CDT Anticoagulation Visit Department of Anticoagulation in [place], [place] [address] [place] [address] Soheila Zapata P.A.-C., M.S. [address] [place] [address] 12/24/2023 10:10 AM CDT Appointment Department of Laboratory Medicine in [address] [phone] Patrick Erickson D.O. [address] [address] 12/28/2023 1:00 PM CDT Office Visit Department of Internal Medicine in [place], [place] [address], [place] [address] Patrick Erickson D.O. [address], [place] [address] documented as of this encounter [...] D.O. 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 [address], [place] [phone] PCP - General Internal Medicine 08/12/22 documented as of this encounter
--- OUTSIDE RECORDS SUMMARY | 2023-12-15 13:17 | XMS_ITS | Encounter Summary ---
Author Organization [facility] Address [address] [place] [address] Care Team Providers Care Flight Superintendent Name Role Phone Patrick Erickson D.O. Primary Care Provider +1- [phone] Reason for Visit * Outpatient (Routine) - Authorized Specialty Diagnoses / Procedures Referred By Prosper t Referred To Contact Anticoagulation Soheila Zapata P.A.-C., M.S. [address] [address] [facility] Referral ID Status Reason Start Date Expiration Date V isits Requested Visits Authorized [id number] Authorized 01/07/2022 01/06/2025 300 300 Encounter Details Date Type Department Care Team (Latest Contact Info) Description 10/28/2023 3:30 PM CDT Anticoagulation Visit Department of Anticoagulation in [place], [place] [address] [place] [address] Soheila Zapata P.A.-C., M.S. [address] [address] Hypertensive Heart And Chronic Kidney [...] Date Recorded PHQ-2 Score 0 04/27/2023 [facility] [place] [facility]at [facility] - Occupational Stress Questionnaire Answer [...] your living situation today? I have a [facility] place to live 07/01/2023 Education Answer [...] please call Primary Care Anticoagulation Program at [phone] from 7:30 am to 4:30 pm. Wednesday-Wednesday [...] if you start any herbal or other jqgd-mbk-xlfgfgb product (check with your doctor, a nurse, or pharmacist). If you change your diet significantly. If you decide to stop or start using tobacco or alcohol. If you notice unusual bruising or bleeding. If you notice dark, tarry, or bright red stools or blood in your urine. If you have a painful and swollen calf. documented in this encounter Progress Notes * Grace Oniell R.N. - 10/28/2023 3:30 PM CDT Warfarin [...] CDT Appointment Department of Laboratory Medicine in [address] [address] Patrick Erickson D.O. [address] [address] 12/17/2023 3:50 PM CDT Appointment Department of Laboratory Medicine in [place], [place] [address] [place] [phone] Patrick Erickson D.O. [address] [address] 12/17/2023 4:20 PM CDT Anticoagulation Visit Department of Anticoagulation in [place], [place] [address] [place] [address] Soheila Zapata P.A.-C., M.S. [address] [address] 12/24/2023 10:10 AM CDT Appointment Department of Laboratory Medicine in [place], [place] [address] [place] [phone] Patrick Erickson D.O. [address] [address] 12/28/2023 1:00 PM CDT Office Visit Department of Internal Medicine in [place], [place] [address] [place] [address] Patrick Erickson D.O. [address] [address] documented as of this encounter Results * INR Reflex, POCT, Blood (11/02/2023 2:58 PM CDT) [facility] Signature INR Reflex, POCT, B 2.5 11/02/2023 2:57 PM CDT FB60 Comment: ----ADDITIONAL INFORMATION---- Standard intensity warfarin therapeutic range: 2.0 to 3.0 ?? High intensity warfarin therapeutic range: 2.5 to 3.5 Blood (Blood, Capillary) 11/02/2023 2:58 PM CDT 11/02/2023 2:57 PM CDT Patrick Erickson D.O. LAB POCT ORDERABLE S - DEVICE [facility] [address] [place] [address], [facility] FB60 [facility] in [place] [address] [place] [address] documented in this encounter Visit Diagnoses Diagnosis Hypertensive Heart And Chronic Kidney Disease With Heart Failure And Stage 1 To 4 Chronic Kidney Disease Or Unspecified Chronic Kidney Disease (HCC)- Primary Hyperlipidemia On Treatment Atrial Fibrillation Paroxysmal (HCC) Monitoring For Therapeutic Drug Therapy Usp (Current) Anticoagulant Treatment documented in this encounter Additional Health Concerns Assessment Noted Time PHQ-9 Depression Total Score: 9 02/23/20 23 7:41 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 [address] [place] [address] PCP - General Internal Medicine 08/12/22 documented as of this encounter
--- OUTSIDE RECORDS SUMMARY | 2023-12-15 13:17 | XMS_ITS | Encounter Summary ---
Author Organization [facility] Address [address] [place] [address] Care Team Providers Care Die Cutter Diamond Name Role Phone Patrick Erickson D.O. Primary Care Provider +1- [phone] Reason for Visit * Outpatient (Routine) - Authorized Specialty Diagnoses / Procedures Referred By Prosper t Referred To Contact Anticoagulation Soheila Zapata P.A.-C., M.S. [address] [address] [facility] Referral ID Status Reason Start Date Expiration Date V isits Requested Visits Authorized [id number] Authorized 01/07/2022 01/06/2025 300 300 Encounter Details Date Type Department Care Team (Latest Contact Info) Description 10/08/2023 9:30 AM CDT Anticoagulation Visit Department of Anticoagulation in [place], [place] [address] [place] [address] Soheila Zapata P.A.-C., M.S. [address] [address] Hypertensive Heart And Chronic Kidney Disease With Heart Failure And Stage 1 To 4 Chronic Kidney Disease Or Unspecified Chronic Kidney Disease (HCC) (Primary Dx); Hyperlipidemia On Treatment; Atrial Fibrillation Paroxysmal (HCC); Monitoring For Therapeutic Drug Therapy; Skilled Nursing (Current) Anticoagulant Treatment Social History Tobacco Use Types Packs/Day Years Used Date Smoking Tobacco: Never Smokeless Tobacco: Never Alcohol Use Standard Drinks/Week Comments No 0 (1 standard drink = 0.6 oz pur e alcohol) [facility] Utilities Answer Date [...] Date Recorded PHQ-2 Score 0 04/27/2023 [facility] of Occupat [facility] - Occupational Stress Questionnaire Answer Date [...] please call Primary Care Anticoagulation Program at [phone] from 7:30 am to 4:30 pm. Wednesday-Wednesday [...] if you start any herbal or other bjig-kjl-jvcoqxg product (check with your doctor, a nurse, [...] CDT Appointment Department of Laboratory Medicine in [place], [place] [address] [place] [phone] Patrick Erickson D.O. [address] [address] 12/17/2023 3:50 PM CDT Appointment Department of Laboratory Medicine in [place], [place] [address] [place] [phone] Patrick Erickson D.O. [address], [place] [address] 12/17/2023 4:20 PM CDT Anticoagulation Visit Department of Anticoagulation in [place], [place] [address] [place] [address] Soheila Zapata P.A.-C., M.S. [address], [place] [address] 12/24/2023 10:10 AM CDT Appointment Department of Laboratory Medicine in [address] [address] Patrick Erickson D.O. [address] [address] 12/28/2023 1:00 PM CDT Office Visit Department of Internal Medicine in [place], [place] [address], [place] [address] Patrick Erickson D.O. [address] [place] [address] documented as of this encounter Results * [...] D.O. LAB POCT ORDERABLE S - DEVICE [facility] [address] [place] [address], [facility] FB60 [facility] in [place] [address] [place] [address] documented in this encounter Visit Diagnoses Diagnosis Hypertensive Heart And Chronic Kidney Disease With Heart Failure And Stage 1 To 4 Chronic Kidney Disease Or Unspecified Chronic Kidney Disease (HCC)- Primary Hyperlipidemia On Treatment Atrial Fibrillation Paroxysmal (HCC) Monitoring For Therapeutic Drug Therapy Wire Taper (Current) Anticoagulant Treatment documented in this encounter Additional Health Concerns Assessment Noted Time PHQ-9 Depression Total Score: 9 02/23/20 23 7:41 PM 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 [address] [place] [address] PCP - General Internal Medicine 08/12/22 documented as of this encounter
--- OUTSIDE RECORDS SUMMARY | 2023-12-15 13:17 | XMS_ITS | Encounter Summary ---
Author Organization [facility] Address [address] [place] [address] Care Team Providers Care Rn Community Health Name Role Phone Patrick Erickson D.O. Primary Care Provider +1- [phone] Reason for Visit * Outpatient (Routine) - Authorized Specialty Diagnoses / Procedures Referred By Prosper t Referred To Contact Anticoagulation Soheila Zapata P.A.-C., M.S. [address] [address] [facility] Referral ID Status Reason Start Date Expiration Date V isits Requested Visits Authorized [id number] Authorized 01/07/2022 01/06/2025 300 300 Encounter Details Date Type Department Care Team (Latest Contact Info) Description 10/04/2023 3:50 PM CDT Anticoagulation Visit Department of Anticoagulation in [place], [place] [address] [place] [address] Soheila Zapata P.A.-C., M.S. [address] [address] Atrial Fibrillation Paroxysmal (HCC) (Primary Dx); Hypertensive Heart And Chronic Kidney Disease With Heart Failure And Stage 1 To 4 Chronic Kidney Disease Or Unspecified Chronic Kidney Disease (HCC); Hyperlipidemia On Treatment; Monitoring For Therapeutic Drug Therapy; Group Home (Current) Anticoagulant Treatment Social History Tobacco Use Types Packs/Day Years Used Date Smoking Tobacco: Never Smokeless Tobacco: Never Alcohol Use Standard Drinks/Week Comments No 0 (1 standard drink = 0.6 oz pur e alcohol) [facility] Utilities Answer Date Recorded [...] often do you attend chur ch or jew services? More than 4 times [...] Score 0 04/27/2023 [facility] [place] [facility] - Occupational Stress Questionnaire Answer [...] your living situation today? I have a [facility] place to live 07/01/2023 Education Answer [...] please call Primary Care Anticoagulation Program at [phone] from 7:30 am to 4:30 pm. Wednesday-Wednesday [...] if you start any herbal or other nbgt-lzm-eybwmay product (check with your doctor, a nurse, [...] with Anticoagulation [facility]. Pt is on injectable anticoagulant: No. Plan [...] CDT Appointment Department of Laboratory Medicine in [address] [phone] Patrick Erickson D.O. [address] [address] 12/17/2023 3:50 PM CDT Appointment Department of Laboratory Medicine in [address] [phone] Patrick Erickson D.O. [address] [address] 12/17/2023 4:20 PM CDT Anticoagulation Visit Department of Anticoagulation in [place] [address] [place] [address] Soehila Zapata P.A.-C., M.S. [address] [address] 12/24/2023 10:10 AM CDT Appointment Department of Laboratory Medicine in [address] [address] Patrick Erickson D.O. [address] [address] 12/28/2023 1:00 PM CDT Office Visit Department of Internal Medicine in [place], [place] [address] [place] [address] Patrick Erickson D.O. [address] [address] documented as of this encounter Results * [...] POCT ORDERABLE S - DEVICE [facility] [address] [place] [address], [facility] FB60 [facility] in [place] [address] [place] [address] documented in this encounter Visit Diagnoses Diagnosis Atrial Fibrillation Paroxysmal (HCC)- Primary Hypertensive Heart And Chronic Kidney Disease With Heart Failure And Stage 1 To 4 Chronic Kidney Disease Or Unspecified Chronic Kidney Disease (HCC) Hyperlipidemia On Treatment Monitoring For Therapeutic Drug Therapy Family Resource Coordinator (Current) Anticoagulant Treatment documented in this encounter Additional Health Concerns Assessment Noted Time PHQ-9 Depression Total Score: 9 02/23/20 23 7:41 PM 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 [address], [place] [address] PCP - General Internal Medicine 08/12/22 documented as of this encounter
--- OUTSIDE RECORDS SUMMARY | 2023-12-15 13:18 | XMS_ITS | Encounter Summary ---
Author Organization [facility] Address [address] [place] [address] Care Team Providers Care Marketing Producer Name Role Phone Patrick Erickson D.O. Primary Care Provider +1- [phone] Encounter Details Date Type Department Care Team (Latest Contact Info) Description 09/14/2023 12:44 PM CDT - 09/14/2023 11:59 PM CDT Hospital Encounter Department of Laboratory Medicine in [place] [address] [place] [address] Soheila Zapata, PZac-C., M.S. 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) Stage 3a Glomerular Filtration Rate (GFR) 45 To 59 (HCC); Hyperlipidemia On Treatment; Atrial Fibrillation Paroxysmal (HCC); Monitoring For Therapeutic Drug Therapy; Contact Center Manager (Current) Anticoagulant Treatment Discharge Disposition: Home or Self Care Social History Tobacco Use Types Packs/Day Years Used Date Smoking Tobacco: Never Smokeless Tobacco: Never Alcohol Use Standard Drinks/Week Comments No 0 (1 standard drink = 0.6 oz pur e alcohol) [facility] Utilities Answer Date Recorded In the past 12 months has e [employer], gas, oil, or water [employer] threatened to shut off services in your [...] How often do you attend chur or buddhist services? More than 4 times [...] Recorded PHQ-2 Score 0 04/27/2023 [facility] [place] of Occupat ional Health - Occupational Stress [...] your living situation today? I have a [facility] place to live 07/01/2023 Education Answer [...] tablet every day 90 tablet 3 04/21/2023 orekxdy-fftr-qszev-o reg-capryl 100 mg-150 mg- 50 mg-150 mg [...] CDT Appointment Department of Laboratory Medicine in [address] [phone] Patrick Erickson D.O. [address] [address] 12/17/2023 3:50 PM CDT Appointment Department of Laboratory Medicine in [place], [place] [address] [place] [address] Patrick Erickson D.O. [address] [address] 12/17/2023 4:20 PM CDT Anticoagulation Visit Department of Anticoagulation in [place], [place] [address] [place] [address] Soheila Zapata P.A.-C., M.S. [address] [address] 12/24/2023 10:10 AM CDT Appointment Department of Laboratory Medicine in [place], [place] [address] [place] [phone] Patrick Erickson D.O. [address] [address] 12/28/2023 1:00 PM CDT Office Visit Department of Internal Medicine in [place], [place] [address] [address] Patrick Erickson D.O. [address] [address] documented as of this encounter [...] P.A.-C. M.S. 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 [address] [place] [address] PCP - General Internal Medicine 08/12/22 documented as of this encounter
--- OUTSIDE RECORDS SUMMARY | 2023-12-15 13:18 | XMS_ITS | Encounter Summary ---
Author Organization [facility] Address [address] [place] [address] Care Team Providers Care Parachute Marker Name Role Phone Patrick Erickson D.O. Primary Care Provider [phone]- [phone] Reason for Visit * Reason Onset Date Comments Anticoagulation 08/13/2023 Lack of Engageme nt Encounter Details Date Type Department Care Team (Latest Contact Info) Description 08/13/2023 Clinical Communication Department of Anticoagulation in [place], [place] [address] [place] [address] Mariam Garland Anticoagulation (Lack of Engagement) Social History Tobacco Use Types Packs/Day Years Used Date Smoking Tobacco: Never Smokeless Tobacco: Never Alcohol Use Standard Drinks/Week Comments No 0 (1 standard drink = 0.6 oz pur e alcohol) [facility] Utilities Answer Date Recorded In the past 12 months has [facility] [employer] gas, oil, or water [employer] threatened to shut off services in your [...] any clubs o r organizations such as hindu groups, unions, fraternal or athletic groups, or [...] your living situation today? I have a [facility] place to live 07/01/2023 Education Answer [...] AM More recent results [facility] Results Component Value Date INR 1.4 [...] needed: Bilirubin, Total Albumin, ALT, AST - Endoscopic Technician's FDA-approved recommendations for transitioning from warfarin to DOAC (*PLEASE NOTE: these may differ from Ask [place] Expert which recommends stopping warfarin and starting [...] prescriptions. Copay reduction cards from the drug power bender operator cannot be used with Medicare Part D [...] help with Medicare prescription drug plan costs [id number], your annual income must be less than $21,870 for an individual ($29,580 for a couple living together). You can apply for Extra Help online on the Language Cloud website or by calling them at [phone]. You also can get help apply by calling the QVPN Line at [phone],Wednesday - Wednesday between 8:00 a.m. - 4:30 p.m. iFlexMe Ten dollar [employer] power bender operator copay card is available for those who privately pay for coverage, have the federal employee health plan or have coverage through an employer based pharmacy program. Patients with Medicare and Medicaid are not eligible for this copay card. This can be searched for online to apply. This card is then given to your pharmacy. The card is good for two years. https://www.SiNode Systems.Looop Online.Stylefie/afib/czgrasx-bnp-ifwfasg Eliquis Drug assistance through the power bender operator [employer]. This is free medicine that isshipped to [...] You can call or apply online. 03-15 [phone] or https://www.NeuroVigil.org/. This must be reapplied for at the beginning of each calendar year. The 3% drug expenditure has to be met before they will approve. Xarelto Ten dollar Xarelto power bender operator copay card (Xarelto withMe savings card) is [...] but unknown until the claim is run. https://www.CloudWork/xarelto-cost Xarelto Drug assistance through ab&jb properties and services. This program is only for those with [...] family of two. You can apply online https://www.BuildingLayerpaf.org/apply/ or by calling Xarelto withME coverage gap [...] year and must be applied for annually. [phone] or https://www.CloudWork/xarelto-cost. Tooling Mechanic Contact your local [facility] social sciences professor/human services office to see if they have [...] time and assistance. Primary Care Anticoagulation Program [phone] documented in this encounter Plan of Treatment Upcoming Encounters Date Type Department Care Team (Latest Contact Info) Description 12/15/2023 4:50 PM CDT Appointment Department of Laboratory Medicine in [address] [phone] Patrick Erickson D.O. [address] [place] [phone] 12/17/2023 3:50 PM CDT Appointment Department of Laboratory Medicine in [address] [phone] Patrick Erickson D.O. [address] [place] [phone] 12/17/2023 4:20 PM CDT Anticoagulation Visit Department of Anticoagulation in [place], [place] [address] [place] [address] Soheila Zapata P.A.-C., M.S. [address] [address] 12/24/2023 10:10 AM CDT Appointment Department of Laboratory Medicine in [place], [place] [address] [place] [address] Patrick Erickson D.O. [address] [phone] 12/28/2023 1:00 PM CDT Office Visit Department of Internal Medicine in [place], [place] [address] [address] Patrick Erickson D.O. 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 [address] [phone] PCP - General Internal Medicine 08/12/22 documented as of this encounter
--- OUTSIDE RECORDS SUMMARY | 2023-12-15 13:18 | XMS_ITS | Encounter Summary ---
Author Organization [facility] Address [address] [place] [address] Care Team Providers Care Power Crane Operator Name Role Phone Patrick Erickson D.O. Primary Care Provider [phone]- [phone] Reason for Visit * Outpatient (Routine) - Authorized Specialty Diagnoses / Procedures Referred By Prosper t Referred To Contact Anticoagulation Soheila Zapata P.A.-C., M.S. [address] [address] [facility] Referral ID Status Reason Start Date Expiration Date V isits Requested Visits Authorized [id number] Authorized 01/07/2022 01/06/2025 300 300 Encounter Details Date Type Department Care Team (Latest Contact Info) Description 09/08/2023 4:00 PM CDT Anticoagulation Visit Department of Anticoagulation in [place], [place] [address] [place] [address] Soheila Zapata P.A.-C., M.S. 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 More than 4 times per year 05/30/2022 Do you belong to any clubs o r organizations such as lutheran groups, unions, fraternal or athletic groups, or [...] Answer Date Recorded PHQ-2 Score 0 04/27/2023 [facility] of Occupat [facility] - Occupational Stress Questionnaire Answer Date [...] your living situation today? I have a [facility] place to live 07/01/2023 Education Answer [...] please call Primary Care Anticoagulation Program at [phone] from 7:30 am to 4:30 pm. Wednesday-Wednesday [...] if you start any herbal or other sfss-dpb-zvpvdbn product (check with your doctor, a nurse, [...] Appointment Department of Laboratory Medicine in [address] [phone] Patrick Erickson D.O. [address] [place] [phone] 12/17/2023 3:50 PM CDT Appointment Department of Laboratory Medicine in [address] [phone] Patrick Erickson D.O. [address] [place] [address] 12/17/2023 4:20 PM CDT Anticoagulation Visit Department of Anticoagulation in [place], [place] [address] [place] [address] Soheila Zapata P.A.-C., M.S. [address] [place] [address] 12/24/2023 10:10 AM CDT Appointment Department of Laboratory Medicine in [address] [place] [address] Patrick Erickson D.O. [address] [place] [address] 12/28/2023 1:00 PM CDT Office Visit Department of Internal Medicine in [place], [place] [address] [place] [address] Patrick Erickson D.O. [address] [place] [address] documented as of this encounter Results * INR Reflex, POCT, Blood (09/14/2023 1:00 PM CDT) INR Reflex, POCT, B 1.6 09/14/2023 12:59 PM CDT [id number] Comment: ----ADDITIONAL INFORMATION---- Standard intensity warfarin therapeutic range: 2.0 to 3.0 ?? High intensity warfarin therapeutic range: 2.5 to 3.5 Blood (Blood, Capillary) 09/14/2023 1:00 PM CDT 09/14/2023 12:59 PM CDT Soheila Zapata P.A.-C., M.S. LAB POCT ORDERABLES - DEVICE [facility] [address] [place] [address], [facility] FB60 [facility] in [place] [address] [place] [address] documented in this encounter Visit Diagnoses Diagnosis [...] Total Score: 9 02/23/20 23 7:41 PM NNPS documented as of this encounter Care Teams Power Crane Operator Relationship Specialty Start Date End Date Patrick Erickson D.O. [address] [place] [phone] PCP - General Internal Medicine 08/12/22 documented as of this encounter
--- OUTSIDE RECORDS SUMMARY | 2023-12-15 13:18 | XMS_ITS | Encounter Summary ---
Author Organization [facility] Address [address] [place] [address] Care Team Providers Care Academic Coach Name Role Phone Patrick Erickson D.O. Primary Care Provider +1- [phone] Encounter Details Date Type Department Care Team (Latest Contact Info) Description 09/08/2023 3:20 PM CDT - 09/08/2023 11:59 PM CDT Hospital Encounter Department of Laboratory Medicine in [place] [address] [place] [phone] Patrick Erickson D.O. 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 Glomerular Filtration Rate (GFR) 45 To 59 (HCC); Hyperlipidemia On Treatment; Atrial Fibrillation Paroxysmal (HCC); Monitoring For Therapeutic Drug Therapy; Educational Audiologist (Current) Anticoagulant Treatment Discharge Disposition: Home or Self Care Social History Tobacco Use Types Packs/Day Years Used Date Smoking Tobacco: Never Smokeless Tobacco: Never Alcohol Use Standard Drinks/Week Comments No 0 (1 standard drink = 0.6 oz pur e alcohol) [facility] Utilities Answer Date Recorded In the past 12 months has th e electric, gas, oil, or water [employer] threatened to shut off services in your [...] often do you attend chur ch or synagogue services? More than 4 times per year [...] Answer Date Recorded PHQ-2 Score 0 04/27/2023 [facility] [place] of Occupat ional Health - Occupational Stress [...] your living situation today? I have a [facility] place to live 07/01/2023 Education Answer [...] tablet every day 90 tablet 3 04/21/2023 nexsghp-scmm-gzbhp-o reg-capryl 100 mg-150 mg- 50 mg-150 mg [...] Treatment,Atrial Fibrillation Paroxysmal (HCC),Monitoring For Therapeutic Drug Therapy,Educational Audiologist (Current) Anticoagulant Treatment Please take as directed by your Anticoagulation Clinic. 15 tablet 08/24/2023 12/06/2023 warfarin (JANTOVEN) 5 mg tabletIndications:Hy pertensive Heart With Heart Failure And Chronic Kidney Disease (CKD) Stage 3a Glomerular Filtration Rate (GFR) 45 To 59 (HCC),Hyperlipidemia On Treatment,Atrial Fibrillation Paroxysmal (HCC),Monitoring For Therapeutic Drug Therapy,Educational Audiologist (Current) Anticoagulant Treatment Please take as directed by your Anticoagulation Clinic. 120 tablet 3 08/24/2023 12/06/2023 documented as of this encounter Plan of Treatment Upcoming Encounters Date Type Department Care Team (Latest Contact Info) Description 12/15/2023 4:50 PM CDT Appointment Department of Laboratory Medicine in [address] [phone] Patrick Erickson D.O. [address] [phone] 12/17/2023 3:50 PM CDT Appointment Department of Laboratory Medicine in [place], [place] [address] [place] [phone] Patrick Erickson D.O. [address] [phone] 12/17/2023 4:20 PM CDT Anticoagulation Visit Department of Anticoagulation in [place], [place] [address] [place] [address] Soheila Zapata P.A.-C., M.S. [address] [phone] 12/24/2023 10:10 AM CDT Appointment Department of Laboratory Medicine in [place], [place] [address] [place] [phone] Patrick Erickson D.O. [address] [phone] 12/28/2023 1:00 PM CDT Office Visit Department of Internal Medicine in [place], [place] [address] [phone] Patrick Erickson D.O. 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 Glomerular Filtration Rate (GFR) 45 To 59 (HCC) Hyperlipidemia On Treatment Atrial Fibrillation Paroxysmal (HCC) Monitoring For Therapeutic Drug Therapy Nursing Home [...] POCT ORDERABLE S - DEVICE [facility] [address] [place] [address], [facility] FB60 [facility] in [place] [address] [place] [address] documented in this encounter Visit Diagnoses Diagnosis 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 [address] [phone] PCP - General Internal Medicine 08/12/22 documented as of this encounter
--- OUTSIDE RECORDS SUMMARY | 2023-12-15 13:18 | XMS_ITS | Encounter Summary ---
Author Organization [facility] Address [address] [place] [address] Care Team Providers Care Brake Repairer Name Role Phone Patrick Erickson D.O. Primary Care Provider [phone]- [phone] Reason for Visit * Outpatient (Routine) - Authorized Specialty Diagnoses / Procedures Referred By Prosper t Referred To Contact Anticoagulation Soheila Zapata P.A.-C., M.S. [address] [address] [facility] Referral ID Status Reason Start Date Expiration Date V isits Requested Visits Authorized [id number] Authorized 01/07/2022 01/06/2025 300 300 Encounter Details Date Type Department Care Team (Latest Contact Info) Description 09/14/2023 1:30 PM CDT Anticoagulation Visit Department of Anticoagulation in [place], [place] [address] [place] [address] Soheila Zapata P.A.-C., M.S. 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 I have a [facility] place to live 07/01/2023 Education Answer Date [...] please call Primary Care Anticoagulation Program at [phone] from 7:30 am to 4:30 pm. Wednesday-Wednesday [...] if you start any herbal or other uoni-ucc-kgglpza product (check with your doctor, a nurse, [...] consecutive INR below goal range. Consulted Anticoagulation [facility] for plan. Currently bridging: No. Provider consulted for potential bridging: Edna Sevilla-Anticoagulation [facility]. Bridging ordered: no. Next INR on 09/21/23 [...] Appointment Department of Laboratory Medicine in [place], [place] [address] [place] [address] Patrick Erickson D.O. [address] [phone] 12/17/2023 3:50 PM CDT Appointment Department of Laboratory Medicine in [address] [phone] Patrick Erickson D.O. [address] [phone] 12/17/2023 4:20 PM CDT Anticoagulation Visit Department of Anticoagulation in [place], [place] [address] [place] [address] Soheila Zapata P.A.-Ashish., M.S. [address] [place] [phone] 12/24/2023 10:10 AM CDT Appointment Department of Laboratory Medicine in [address] [phone] Patrick Erickson D.O. [address] [place] [phone] 12/28/2023 1:00 PM CDT Office Visit Department of Internal Medicine in [place], [place] [address] [place] [phone] Patrick Erickson D.O. [address] [place] [phone] documented as of this encounter Results * [...] D.O. 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 [address] [phone] PCP - General Internal Medicine 08/12/22 documented as of this encounter
--- OUTSIDE RECORDS SUMMARY | 2023-12-15 13:18 | XMS_ITS | Clinical Summary ---
Author Organization [facility] Address [place], [place] [address] Care Team Providers Care Mail Messenger Name Role Phone None Primary Care Provider Harvinder Peterson MD Unavailable [phone] Allergies Active Allergy Reactions Criticality Noted Date [...] age 65+ Completed 5, 08/17/2014 Care Teams Mail Messenger Relationship Specialty Start Date End Date None . PCP - General 08/01/14 Harvinder Pike MD [facility] [place] [address] 08/01/14
== END 2023-12-01 12:53 | disposition home or self-care (01) ==
PROVIDERS: PCP Nurse Practitioner; Visit Provider Family Medicine
DX: S59.912A Unspecified injury of left forearm, initial encounter (principal); W01.0XXA Fall on same level from slipping, tripping and stumbling without subsequent striking against object, initial encounter; Y92.009 Unspecified place in unspecified non-institutional (private) residence as the place of occurrence of the external cause
CPT/HCPCS: A0425; A0427

== ENCOUNTER 2023-12-01 13:29 | Emergency (ER) | payer OTHER, SELFPAY ==
[2023-12-01] VITALS (11 sets, daily range): BP systolic 125–187; BP diastolic 82–90; PULSE 42–51; RESP 18; TEMP 36.1; O2SAT 97–100; BMI 31.9
--- NOTE | 2023-12-01 13:49 | CRLHL7_ITS ---
For Patients: As a result of the Century Cures Act, medical imaging exams and procedure reports are released immediately into your electronic medical record. You may view this report before your referring provider. If you have questions, please contact your health care provider. Indication: Fall Technique: Three views of the left humerus. Comparison: None. Findings: Moderately displaced oblique fracture of the mid humeral diaphysis. Moderate degenerative changes of the left shoulder. Impression: Moderately displaced oblique fracture of the mid humeral diaphysis. Dictated by Cullen Bobo MD @ 12/01/2023 3:15:27 PM (Electronically Signed)
--- NOTE | 2023-12-01 14:00 | ED.GENADULT ---
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 She might have landed on her landed forward with extended. She has pain above her elbow into her shoulder on the left. No open wounds. Distal CMS intact. She does have some crepitus feeling in the left upper humeral area. No other specific complaints. No back pain, neck pain, loss consciousness. She is on warfarin for AFib. Related Data Home Medications ?Medication ?Instructions ?Recorded ?Confirmed atorvastatin 10 mg tablet 10 mg PO DAILY 08/01/22 12/01/23 furosemide 20 mg tablet 20 mg PO DAILY 08/01/22 12/01/23 lisinopril 40 mg tablet 40 mg PO DAILY 08/01/22 12/01/23 warfarin 5 mg tablet 7.5 mg PO DAILY 08/01/22 12/01/23 Previous Rx's ?Medication ?Instructions ?Recorded carvedilol 6.25 mg tablet 6.25 mg PO BID #15 tabs 08/02/22 hydrocodone 5 mg-acetaminophen 325 1 tab PO Q8H PRN pain #14 tabs 12/01/23 mg tablet Allergies Allergy/AdvReac Type Severity Reaction Status Date / Time codeine Allergy Verified 08/01/22 22:20 Review of Systems Status of ROS: Reports: 6 or more systems reviewed and unremarkable except as noted in History and below [facility] Medical History Lumbar radiculopathy ?M54.16 - Radiculopathy, lumbar region (ICD-10) Migraine ?G43.909 - Migraine, unspecified, not intractable, without status migrainosus (ICD-10) Paroxysmal atrial fibrillation ?I48.0 - Paroxysmal atrial fibrillation (ICD-10) Hypertension ?I10 - Essential (primary) hypertension (ICD-10) Chronic kidney disease, stage 3 ?N18.30 - Chronic kidney disease, stage 3 unspecified (ICD-10) Heart failure ?I50.9 - Heart failure, unspecified (ICD-10) Altered mental status ?R41.82 - Altered mental status, unspecified (ICD-10) Surgical History History of appendectomy ?Z90.49 - Acquired absence of other specified parts of digestive tract (ICD-10) History of hysterectomy ?Z90.710 - Acquired absence of both cervix and uterus (ICD-10) History of tonsillectomy ?Z90.89 - Acquired absence of other organs (ICD-10) Family History Mother Diabetes Cardiovascular disease Brother Dementia Father Abdominal aortic aneurysm Social History Narrative: Patient lives at the [facility] in [place]. She is in an independent apartment. Her lives there and is in assisted living due to a remote history of stroke. She reports her independent living has been going well for her. She does not smoke. She does not drink alcohol. She does not use recreational drugs. She does tell me that she rubs CBD oil on her feet. Her son [place] and her daughter have your are healthcare power of transactional attorney. Her code status is DNR. She goes to [facility] in [place] for primary care. 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 Smoking Status: Never smoker Do you use any of these nicotine containing products: None Second hand tobacco smoke exposure: No How often do you have a drink containing alcohol: never How often do you have six or more drinks on one occasion: Never AUDIT-C Alcohol total score: 0 Non-prescribed substance use: denies use service: No Exam Narrative: Exam Narrative: Objective patient's vital signs look within normal limits She is alert or x3 very pleasant She is in moderate distress though with palpation of her mid humeral area to upper humerus. On the left. She has good distal CMS. There is a crepitus feeling and mobile motion in their left upper humeral area. Careful inspection around her humerus and shoulder show no open wounds. Neck back abdomen and pelvis and lower extremities are unremarkable. Her right upper extremity shows no injury, no palpable pain, no deformity. Const: Vital Signs, click to edit/add: Vital Signs - 24 hr 12/01/23 13:39 12/01/23 14:12 12/01/23 14:15 Temperature 97 F L Pulse Rate 44 L 45 L Pulse Rate [Pulse Oximeter] 42 L Respiratory Rate 18 Blood Pressure Blood Pressure [Ri ght Forearm] 125/82 Pulse Oximetry 97 99 99 Oxygen Delivery Me thod Room Air 12/01/23 14:30 12/01/23 14:32 12/01/23 14:45 Temperature Pulse Rate 42 L 44 L 49 L Pulse Rate [Pulse Oximeter] Respiratory Rate Blood Pressure 174/84 H Blood Pressure [Ri ght Forearm] Pulse Oximetry 98 99 100 Oxygen Delivery Me thod 12/01/23 15:00 12/01/23 15:02 12/01/23 15:15 Temperature Pulse Rate 44 L 46 L 45 L Pulse Rate [Pulse Oximeter] Respiratory Rate Blood Pressure 181/86 H Blood Pressure [Ri ght Forearm] Pulse Oximetry 99 100 100 Oxygen Delivery Me thod 12/01/23 15:31 12/01/23 15:32 Temperature Pulse Rate 51 L 48 L Pulse Rate [Pulse Oximeter] Respiratory Rate Blood Pressure 187/90 H Blood Pressure [Ri ght Forearm] Pulse Oximetry 98 98 Oxygen Delivery Me thod Course Vital Signs Vital signs: Initial Vital Signs Temperature 97 F L 12/01/23 13:39 Temperature Source Temporal Artery Scan 12/01/23 13:39 Pulse Rate 42 L 12/01/23 13:39 Respiratory Rate 18 12/01/23 13:39 Blood Pressure 125/82 12/01/23 13:39 Blood Pressure Mean 96 12/01/23 13:39 Pulse Oximetry 97 12/01/23 13:39 Oxygen Delivery Method Room Air 12/01/23 13:39 Vital Signs Temperature 97 F L 12/01/23 13:39 Pulse Rate 42 L 12/01/23 13:39 Respiratory Rate 18 12/01/23 13:39 Blood Pressure 125/82 12/01/23 13:39 Pulse Oximetry 97 12/01/23 13:39 Oxygen Delivery Method Room Air 12/01/23 13:39 Temperature 97 F L 12/01/23 13:39 Pulse Rate 48 L 12/01/23 15:32 Respiratory Rate 18 12/01/23 13:39 Blood Pressure 187/90 H 12/01/23 15:32 Pulse Oximetry 98 12/01/23 15:32 Oxygen Delivery Method Room Air 12/01/23 13:39 Medications Administered Medications: Discontinued Medications Generic Name Dose Route Start Last Admin Trade Name Jan PRN Reason Stop Dose Admin Sodium Chloride 500 mls @ 500 mls/hr 12/01/23 13:58 12/01/23 15:15 0.9 % Sodium Chloride 500 Ml IV 12/01/23 14:57 Infused .Q1H ONE Infusion Morphine Sulfate 4 mg 12/01/23 13:58 12/01/23 14:08 Morphine 4 Mg/Ml Inj IVP 12/01/23 13:59 4 mg ONCE ONE Administration Morphine Sulfate 4 mg 12/01/23 15:17 12/01/23 15:23 Morphine 4 Mg/Ml Inj IVP 12/01/23 15:18 4 mg ONCE ONE Administration Medical Decision Making MDM Narrative Medical decision making narrative: 78-year-old female with a left humeral injury. Will check an x-ray of her humerus and left shoulder, IV fluid, IV morphine for pain control as she is pretty uncomfortable. Will assess after x-ray and disposition planning. May need Orthopedic consultation Addendum: 3:17 p.m. the patient has a midshaft oblique humeral fracture that is mildly displaced. A sugar-tong was done including the elbow, I did because of her age I did not put her over the top of her shoulder thought that might impair her breathing somewhat. Will put her in a sling as well as the sugar-tong that goes up to about her deltoid area. Discussed with orthopedics they will consult tomorrow if we put her in the hospital. I do not think she will do well at home. Will give her additional morphine now. Will discuss with hospitalist about keeping her here. Discharge Plan Discharge Clinical Impression: Injury of left upper arm, Fracture, humerus Patient Disposition: Home w/ Parent or Adult Condition: Improved Activity Level: Light activity Activity Detail: Please make an ortho appointment for the patient Discharge Diet: Regular
[2023-12-01] MEDS: 0.9 % SODIUM CHLORIDE 500 ML 500 ML IV (14:06)
[2023-12-01] MEDS: MORPHINE 4 MG/ML INJ IVP ×2 (14:08→15:23)
== END 2023-12-01 17:23 | disposition home or self-care (01) ==
LOC: ED 15:47 → MEDSURG 15:54
PROVIDERS: Emergency Provider Family Medicine
DX: S42.332A Displaced oblique fracture of shaft of humerus, left arm, initial encounter for closed fracture (principal); W01.0XXA Fall on same level from slipping, tripping and stumbling without subsequent striking against object, initial encounter; Y99.0 Civilian activity done for income or pay
CPT/HCPCS: 29125; 73060; 96374; 96376; 99283; 99284; J2270; J7030

== ENCOUNTER 2023-12-06 07:59 | Outpatient (CLI) | payer OTHER, SELFPAY ==
--- OUTSIDE RECORDS SUMMARY | 2023-12-06 08:04 | XMS_ITS | Continuity of Care Document ---
Author Organization [facility] Address [address] [place] [address] Care Team Providers Care Machine Maintenance Mechanic Name Role Phone Patrick Erickson D.O. Primary Care Provider [phone] Source Comments Patient records contain information from all sites at [facility]. For routine questions regarding patient records, call [phone] during business hours, M-F 8:00 AM - 5:00 PM Central Time. Record requests for emergency care only can be directed to [phone] at any time.[facility] Encounters Date Type Department Care Team Description 12/03/2023 2:50 PM CDT - 12/03/2023 11:59 PM CDT Hospital Encounter Department of Laboratory Medicine in [address] [address] Patrick Erickson D.O. 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 Or Unspecified Chronic Kidney Disease (HCC); Hyperlipidemia On Treatment; Atrial Fibrillation Paroxysmal (HCC); Monitoring For Therapeutic Drug Therapy; Experimental Plastics Fabricator (Current) Anticoagulant Treatment Discharge Disposition: Home or Self Care 12/03/2023 3:50 PM CDT Anticoagulation Visit Department of Anticoagulation in [place], [place] [address] [place] [address] Soheila Zapata P.A.-C., M.S. Atrial Fibrillation Paroxysmal (HCC) (Primary Dx); 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 Or Unspecified Chronic Kidney Disease (HCC); Hyperlipidemia On Treatment; Monitoring For Therapeutic Drug Therapy; Experimental Plastics Fabricator (Current) Anticoagulant Treatment 12/01/2023 Clinical Communication Department of Orthopedic Surgery in [place], [place] [address] [address] Sher Bauman M.D. Arm Injury; Post Ed Visit Follow-up 11/29/2023 Clinical Communication Department of Family Medicine, [address] [address] Butch Sanchez R.N. COVID Treatment Review 11/27/2023 Nurse Triage Department of Internal Medicine in [place], [place] [address] [place] [phone] Kari Olivarez R.N. Cough 11/22/2023 4:00 PM CDT Anticoagulation Visit Department of Anticoagulation in [place], [place] [address] [place] [address] Soheila Zapata P.A.-C., M.S. 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 Or Unspecified Chronic Kidney Disease (HCC) (Primary Dx); Hyperlipidemia On Treatment; Atrial Fibrillation Paroxysmal (HCC); Monitoring For Therapeutic Drug Therapy; Jail (Current) Anticoagulant Treatment 11/22/2023 3:20 PM CDT - 11/22/2023 11:59 PM CDT Hospital Encounter Department of Laboratory Medicine in [address] [address] Patrick Erickson D.O. 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 Or Unspecified Chronic Kidney Disease (HCC); Hyperlipidemia On Treatment; Atrial Fibrillation Paroxysmal (HCC); Monitoring For Therapeutic Drug Therapy; Experimental Plastics Fabricator (Current) Anticoagulant Treatment Discharge Disposition: Home or Self Care 11/12/2023 11:50 AM CDT - 11/12/2023 11:59 PM CDT Hospital Encounter Department of Laboratory Medicine in [address] [address] Patrick Erickson D.O. Atrial Fibrillation Paroxysmal (HCC); Monitoring For Therapeutic Drug Therapy; Experimental Plastics Fabricator (Current) Anticoagulant Treatment Discharge Disposition: Home or Self Care 11/12/2023 12:30 PM CDT Anticoagulation Visit Department of Anticoagulation in [place], [place] [address] [place] [address] Soheila Zapata P.A.-C., M.S. 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 Or Unspecified Chronic Kidney Disease (HCC) (Primary Dx); Hyperlipidemia On Treatment; Atrial Fibrillation Paroxysmal (HCC); Monitoring For Therapeutic Drug Therapy; Jail (Current) Anticoagulant Treatment 11/09/2023 Orders Only [facility] PCP [facility] Patrick Erickson D.O. 11/02/2023 Clinical Communication Department of Anticoagulation in [place], [place] [address] [place] [address] Cullen Guillen R.N. Anticoagulation ([facility] Update-New PCP) 11/02/2023 3:30 PM CDT Anticoagulation Visit Department of Anticoagulation in [place], [place] [address] [place] [address] Soheila Zapata P.Genie.-Ashish., M.S. 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 Or Unspecified Chronic Kidney Disease (HCC) (Primary Dx); Hyperlipidemia On Treatment; Atrial Fibrillation Paroxysmal (HCC); Monitoring For Therapeutic Drug Therapy; Experimental Plastics Fabricator (Current) Anticoagulant Treatment 11/02/2023 2:50 PM CDT - 11/02/2023 11:59 PM CDT Hospital Encounter Department of Laboratory Medicine in [address] [address] Patrick Erickson D.O. 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 Or Unspecified Chronic Kidney Disease (HCC); Hyperlipidemia On Treatment; Atrial Fibrillation Paroxysmal (HCC); Monitoring For Therapeutic Drug Therapy; Jail (Current) Anticoagulant Treatment Discharge Disposition: Home or Self Care 10/28/2023 3:30 PM CDT Anticoagulation Visit Department of Anticoagulation in [place], [place] [address] [place] [phone] Soheila Zapata P.A.-C., M.S. 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 Or Unspecified Chronic Kidney Disease (HCC) (Primary Dx); Hyperlipidemia On Treatment; Atrial Fibrillation Paroxysmal (HCC); Monitoring For Therapeutic Drug Therapy; Experimental Plastics Fabricator (Current) Anticoagulant Treatment 10/28/2023 2:50 PM CDT - 10/28/2023 11:59 PM CDT Hospital Encounter Department of Laboratory Medicine in [place], [place] [address] [place] [address] Patrick Erickson D.O. 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 Or Unspecified Chronic Kidney Disease (HCC); Hyperlipidemia On Treatment; Atrial Fibrillation Paroxysmal (HCC); Monitoring For Therapeutic Drug Therapy; Jail (Current) Anticoagulant Treatment Discharge Disposition: Home or Self Care 10/19/2023 10:10 AM CDT Anticoagulation Visit Department of Anticoagulation in [address] [address] Soheila Zapata P.A.-C., M.S. 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 Or Unspecified Chronic Kidney Disease (HCC) (Primary Dx); Hyperlipidemia On Treatment; Atrial Fibrillation Paroxysmal (HCC); Monitoring For Therapeutic Drug Therapy; Jail (Current) Anticoagulant Treatment 10/15/2023 2:50 PM CDT - 10/15/2023 11:59 PM CDT Hospital Encounter Department of Laboratory Medicine in [place], [place] [address] [place] [address] Patrick Erickson D.O. 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 Or Unspecified Chronic Kidney Disease (HCC); Hyperlipidemia On Treatment; Atrial Fibrillation Paroxysmal (HCC); Monitoring For Therapeutic Drug Therapy; Jail (Current) Anticoagulant Treatment Discharge Disposition: Home or Self Care 10/08/2023 9:30 AM CDT Anticoagulation Visit Department of Anticoagulation in [place], [place] [address] [place] [address] Soheila Zapata P.A.-C., M.S. 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 Or Unspecified Chronic Kidney Disease (HCC) (Primary Dx); Hyperlipidemia On Treatment; Atrial Fibrillation Paroxysmal (HCC); Monitoring For Therapeutic Drug Therapy; Experimental Plastics Fabricator (Current) Anticoagulant Treatment 10/07/2023 2:49 PM CDT - 10/07/2023 11:59 PM CDT Hospital Encounter Department of Laboratory Medicine in [address] [address] Patrick Erickson D.O. Atrial Fibrillation Paroxysmal (HCC) Discharge Disposition: Home or Self Care 10/04/2023 3:50 PM CDT Anticoagulation Visit Department of Anticoagulation in [place], [place] [address] [place] [address] Soheila Zapata P.A.-C., M.S. Atrial Fibrillation Paroxysmal (HCC) (Primary Dx); 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 Or Unspecified Chronic Kidney Disease (HCC); Hyperlipidemia On Treatment; Monitoring For Therapeutic Drug Therapy; Jail (Current) Anticoagulant Treatment 10/01/2023 Clinical Communication Department of Anticoagulation in [place], [place] [address] [place] [phone] La Mendoza R.N. Anticoagulation (Out of range INR.) 10/01/2023 2:30 PM CDT - 10/01/2023 11:59 PM CDT Hospital Encounter Department of Laboratory Medicine in [place], [place] [address] [address] Patrick Erickson D.O. 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 Glomerular Filtration Rate (GFR) 45 To 59 (HCC); Hyperlipidemia On Treatment; Atrial Fibrillation Paroxysmal (HCC); Monitoring For Therapeutic Drug Therapy; Jail (Current) Anticoagulant Treatment Discharge Disposition: Home or Self Care 09/24/2023 3:30 PM CDT Anticoagulation Visit Department of Anticoagulation in [place], [place] [address] [place] [address] Soheila Zapata P.A.-Ashish., M.S. 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 Glomerular Filtration Rate (GFR) 45 To 59 (HCC) (Primary Dx); Hyperlipidemia On Treatment; Atrial Fibrillation Paroxysmal (HCC); Monitoring For Therapeutic Drug Therapy; Experimental Plastics Fabricator (Current) Anticoagulant Treatment 09/24/2023 2:50 PM CDT - 09/24/2023 11:59 PM CDT Hospital Encounter Department of Laboratory Medicine in [place], [place] [address] [place] [address] Patrick Erickson D.O. 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 Glomerular Filtration Rate (GFR) 45 To 59 (HCC); Hyperlipidemia On Treatment; Atrial Fibrillation Paroxysmal (HCC); Monitoring For Therapeutic Drug Therapy; Experimental Plastics Fabricator (Current) Anticoagulant Treatment Discharge Disposition: Home or Self Care 09/21/2023 1:30 PM CDT Anticoagulation Visit Department of Anticoagulation in [place], [place] [address] [place] [phone] Soheila Zapata P.A.-Ashish., M.S. 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 Glomerular Filtration Rate (GFR) 45 To 59 (HCC) (Primary Dx); Hyperlipidemia On Treatment; Atrial Fibrillation Paroxysmal (HCC); Monitoring For Therapeutic Drug Therapy; Experimental Plastics Fabricator (Current) Anticoagulant Treatment 09/21/2023 11:55 AM CDT - 09/21/2023 11:59 PM CDT Hospital Encounter Department of Laboratory Medicine in [place], [place] [address] [place] [address] Patrick Erickson D.O. 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 Glomerular Filtration Rate (GFR) 45 To 59 (HCC); Hyperlipidemia On Treatment; Atrial Fibrillation Paroxysmal (HCC); Monitoring For Therapeutic Drug Therapy; Jail (Current) Anticoagulant Treatment Discharge Disposition: Home or Self Care 09/14/2023 1:30 PM CDT Anticoagulation Visit Department of Anticoagulation in [place], [place] [address] [place] [address] Soheila Zapata P.A.-C., M.S. Atrial Fibrillation Paroxysmal (HCC) (Primary Dx); 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 Glomerular Filtration Rate (GFR) 45 To 59 (HCC); Hyperlipidemia On Treatment; Monitoring For Therapeutic Drug Therapy; Experimental Plastics Fabricator (Current) Anticoagulant Treatment 09/14/2023 12:44 PM CDT - 09/14/2023 11:59 PM CDT Hospital Encounter Department of Laboratory Medicine in [place], [place] [address] [place] [address] Soheila Zapata P.A.-C., M.S. 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 Glomerular Filtration Rate (GFR) 45 To 59 (HCC); Hyperlipidemia On Treatment; Atrial Fibrillation Paroxysmal (HCC); Monitoring For Therapeutic Drug Therapy; Jail (Current) Anticoagulant Treatment Discharge Disposition: Home or Self Care 09/08/2023 4:00 PM CDT Anticoagulation Visit Department of Anticoagulation in [address] [address] Soheila Zapata P.A.-Ashish., M.S. 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 Glomerular Filtration Rate (GFR) 45 To 59 (HCC) (Primary Dx); Hyperlipidemia On Treatment; Atrial Fibrillation Paroxysmal (HCC); Monitoring For Therapeutic Drug Therapy; Experimental Plastics Fabricator (Current) Anticoagulant Treatment 09/08/2023 3:20 PM CDT - 09/08/2023 11:59 PM CDT Hospital Encounter Department of Laboratory Medicine in [address] [address] Patrick Erickson D.O. 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 Glomerular Filtration Rate (GFR) 45 To 59 (HCC); Hyperlipidemia On Treatment; Atrial Fibrillation Paroxysmal (HCC); Monitoring For Therapeutic Drug Therapy; Jail (Current) Anticoagulant Treatment Discharge Disposition: Home or Self Care 09/02/2023 4:00 PM CDT Anticoagulation Visit Department of Anticoagulation in [place], [place] [address] [place] [address] Soheila Zapata P.A.-C., M.S. Atrial Fibrillation Paroxysmal (HCC) (Primary Dx); 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 Glomerular Filtration Rate (GFR) 45 To 59 (HCC); Hyperlipidemia On Treatment; Monitoring For Therapeutic Drug Therapy; Jail (Current) Anticoagulant Treatment 09/02/2023 3:01 PM CDT - 09/02/2023 11:59 PM CDT Hospital Encounter Department of Laboratory Medicine in [address] [address] Patrick Erickson D.O. 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 Glomerular Filtration Rate (GFR) 45 To 59 (HCC); Hyperlipidemia On Treatment; Atrial Fibrillation Paroxysmal (HCC); Monitoring For Therapeutic Drug Therapy; Jail (Current) Anticoagulant Treatment Discharge Disposition: Home or Self Care 08/27/2023 2:30 PM CDT Anticoagulation Visit Department of Anticoagulation in [address] [address] Soheila Zapata P.A.-C., M.S. 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 Glomerular Filtration Rate (GFR) 45 To 59 (HCC) (Primary Dx); Hyperlipidemia On Treatment; Atrial Fibrillation Paroxysmal (HCC); Monitoring For Therapeutic Drug Therapy; Jail (Current) Anticoagulant Treatment 08/27/2023 1:50 PM CDT - 08/27/2023 11:59 PM CDT Hospital Encounter Department of Laboratory Medicine in [address] [address] Patrick Erickson D.Claudia 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 Glomerular Filtration Rate (GFR) 45 To 59 (HCC); Hyperlipidemia On Treatment; Atrial Fibrillation Paroxysmal (HCC); Monitoring For Therapeutic Drug Therapy; Jail (Current) Anticoagulant Treatment Discharge Disposition: Home or Self Care 08/24/2023 10:30 AM CDT Anticoagulation Visit Department of Anticoagulation in [place], [place] [address] [place] [phone] Zapata, Soheila M, P.A.-C., M.S. 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 Glomerular Filtration Rate (GFR) 45 To 59 (HCC) (Primary Dx); Hyperlipidemia On Treatment; Atrial Fibrillation Paroxysmal (HCC); Monitoring For Therapeutic Drug Therapy; Jail (Current) Anticoagulant Treatment 08/24/2023 9:46 AM CDT - 08/24/2023 11:59 PM CDT Hospital Encounter Department of Laboratory Medicine in [address] [address] Patrick Erickson D.O. 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 Glomerular Filtration Rate (GFR) 45 To 59 (HCC); Hyperlipidemia On Treatment; Atrial Fibrillation Paroxysmal (HCC); Monitoring For Therapeutic Drug Therapy; Jail (Current) Anticoagulant Treatment Discharge Disposition: Home or Self Care 08/17/2023 3:50 PM CDT Anticoagulation Visit Department of Anticoagulation in [address] [address] Soheila Zapata P.A.-C., M.S. 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 Glomerular Filtration Rate (GFR) 45 To 59 (HCC) (Primary Dx); Hyperlipidemia On Treatment; Atrial Fibrillation Paroxysmal (HCC); Monitoring For Therapeutic Drug Therapy; Jail (Current) Anticoagulant Treatment 08/16/2023 Clinical Communication Department of Anticoagulation in [place], [place] [address] [place] [phone] Kina Montgomery, Jef Anticoagulation (INR OOR) 08/16/2023 1:24 PM CDT - 08/16/2023 11:59 PM CDT Hospital Encounter Department of Laboratory Medicine in [address] [address] Patrick Erickson D.O. 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 Glomerular Filtration Rate (GFR) 45 To 59 (HCC); Hyperlipidemia On Treatment; Atrial Fibrillation Paroxysmal (HCC); Monitoring For Therapeutic Drug Therapy; Jail (Current) Anticoagulant Treatment Discharge Disposition: Home or Self Care 08/13/2023 Clinical Communication Department of Anticoagulation in [place], [place] [address] [place] [address] [place] [address] Mariam Garland Anticoagulation (Lack of Engagement) 08/06/2023 9:50 AM CDT Anticoagulation Visit Department of Anticoagulation in [place], [place] [address] [place] [phone] Soheila Zapata P.A.-C., M.S. 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 Glomerular Filtration Rate (GFR) 45 To 59 (HCC) (Primary Dx); Hyperlipidemia On Treatment; Atrial Fibrillation Paroxysmal (HCC); Monitoring For Therapeutic Drug Therapy; Jail (Current) Anticoagulant Treatment 08/05/2023 Clinical Communication Department of Anticoagulation in [place], [place] [address] [place] [phone] Isa Callahan, Jef Anticoagulation (Unable to reach ) 08/05/2023 2:36 PM CDT - 08/05/2023 11:59 PM CDT Hospital Encounter Department of Laboratory Medicine in [place], [place] [address] [address] Patrick Erickson D.O. 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 Glomerular Filtration Rate (GFR) 45 To 59 (HCC); Hyperlipidemia On Treatment; Atrial Fibrillation Paroxysmal (HCC); Monitoring For Therapeutic Drug Therapy; Experimental Plastics Fabricator (Current) Anticoagulant Treatment Discharge Disposition: Home or Self Care 07/06/2023 8:39 AM CDT - 07/06/2023 11:59 PM CDT Hospital Encounter Department of Laboratory Medicine in [address] [address] Patrick Erickson D.O. Atrial Fibrillation Paroxysmal (HCC); 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 Glomerular Filtration Rate (GFR) 45 To 59 (HCC); Screening Examination Diabetes Mellitus; Hyperlipidemia On Treatment Discharge Disposition: Home or Self Care 07/06/2023 9:00 AM CDT Anticoagulation Visit Department of Anticoagulation in [place], [place] [address] [place] [address] Soheila Zapata PKentonC., M.S. 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 Glomerular Filtration Rate (GFR) 45 To 59 (HCC) (Primary Dx); Hyperlipidemia On Treatment; Atrial Fibrillation Paroxysmal (HCC); Monitoring For Therapeutic Drug Therapy; Jail (Current) Anticoagulant Treatment 07/06/2023 8:17 AM CDT - 07/06/2023 8:38 AM CDT Hospital Encounter Department of Laboratory Medicine in [address] [address] Patrick Erickson D.O. Atrial Fibrillation Paroxysmal (HCC); 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 Glomerular Filtration Rate (GFR) 45 To 59 (HCC); Hyperlipidemia On Treatment; Monitoring For Therapeutic Drug Therapy; Experimental Plastics Fabricator (Current) Anticoagulant Treatment Discharge Disposition: Home or Self Care 07/02/2023 Clinical Communication Department of Internal Medicine in [address] [address] Patrick Erickson D.O. 07/02/2023 10:15 AM CDT Nurse Only Department of Family Medicine, [facility], in [address] [phone] Patrick Erickson D.O. McHugh, Wendy A, L.P.NHowie Nurse Visit (BP check ) 06/24/2023 8:00 AM CDT Anticoagulation Visit Department of Anticoagulation in [place], [place] [address] [place] [phone] Patrick Erickson D.O. 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 Glomerular Filtration Rate (GFR) 45 To 59 (HCC) (Primary Dx); Atrial Fibrillation Paroxysmal (HCC); Hyperlipidemia On Treatment; Monitoring For Therapeutic Drug Therapy; Jail (Current) Anticoagulant Treatment 06/23/2023 Refill Department of Cardiovascular Diseases in [place], [place] [address] [place] [phone] Roberto Dumont, WATER RESOURCE CONSULTANT, C.N.P. Med Refill 06/22/2023 Clinical Communication Department of Anticoagulation in [place], [place] [address] [place] [address] Grace Oneill R.N. Anticoagulation (Unable to Reach) 06/22/2023 9:58 AM CDT - 06/22/2023 11:59 PM CDT Hospital Encounter Department of Laboratory Medicine in [address] [address] Soheila Zapata P.A.-C., M.S. 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 Glomerular Filtration Rate (GFR) 45 To 59 (HCC); Hyperlipidemia On Treatment; Atrial Fibrillation Paroxysmal (HCC); Monitoring For Therapeutic Drug Therapy; Jail (Current) Anticoagulant Treatment Discharge Disposition: Home or Self Care 06/22/2023 9:57 AM CDT Hospital Encounter Department of Laboratory Medicine in [address] [address] Roberto Dumont APRN, C.N.PHowie Atrial Fibrillation Unspecified (HCC) Discharge Disposition: Home or Self Care 06/22/2023 1:00 PM CDT Office Visit Department of Internal Medicine in [address] [address] Patrick Erickson D.O. Atrial Fibrillation Paroxysmal (HCC) (Primary Dx); Experimental Plastics Fabricator (Current) Anticoagulant Treatment; Monitoring For Therapeutic Drug Therapy; 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 Glomerular Filtration Rate (GFR) 45 To 59 (HCC); Hyperlipidemia On Treatment; Screening Examination Diabetes Mellitus 06/18/2023 Clinical Communication Department of Anticoagulation in [place], [place] [address] [place] [address] Sandra De Oliveira Anticoagulation (Unable to reach) 06/03/2023 12:50 PM CDT - 06/03/2023 11:59 PM CDT Hospital Encounter Department of Laboratory Medicine in [place], [place] [address] [place] [phone] Patrick Erickson D.O. 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 Glomerular Filtration Rate (GFR) 45 To 59 (HCC); Hyperlipidemia On Treatment; Atrial Fibrillation Paroxysmal (HCC); Monitoring For Therapeutic Drug Therapy; Experimental Plastics Fabricator (Current) Anticoagulant Treatment Discharge Disposition: Home or Self Care 06/03/2023 1:30 PM CDT Anticoagulation Visit Department of Anticoagulation in [place], [place] [address] [place] [address] Soheila Zapata P.A.-C., M.S. 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 Glomerular Filtration Rate (GFR) 45 To 59 (HCC) (Primary Dx); Hyperlipidemia On Treatment; Atrial Fibrillation Paroxysmal (HCC); Monitoring For Therapeutic Drug Therapy; Experimental Plastics Fabricator (Current) Anticoagulant Treatment 05/27/2023 11:10 AM CDT Anticoagulation Visit Department of Anticoagulation in [place], [place] [address] [place] [address] Soheila Zapata P.A.-Ashish., M.S. 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 Glomerular Filtration Rate (GFR) 45 To 59 (HCC) (Primary Dx); Hyperlipidemia On Treatment; Atrial Fibrillation Paroxysmal (HCC); Monitoring For Therapeutic Drug Therapy; Jail (Current) Anticoagulant Treatment 05/27/2023 10:20 AM CDT - 05/27/2023 11:59 PM CDT Hospital Encounter Department of Laboratory Medicine in [address] [address] Patrick Erickson D.O. 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 Glomerular Filtration Rate (GFR) 45 To 59 (HCC); Hyperlipidemia On Treatment; Atrial Fibrillation Paroxysmal (HCC); Monitoring For Therapeutic Drug Therapy; Experimental [employer] Fabricator (Current) Anticoagulant Treatment Discharge Disposition: Home or Self Care 05/21/2023 2:40 PM CDT - 05/21/2023 11:59 PM CDT Hospital Encounter Department of Laboratory Medicine in [place], [place] [address] [address] Patrick Erickson D.O. Atrial Fibrillation Paroxysmal (HCC) Discharge Disposition: Home or Self Care 05/21/2023 3:20 PM CDT Anticoagulation Visit Department of Anticoagulation in [place], [place] [address] [place] [phone] Soheila Zapata P.A.-C., M.S. 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 Glomerular Filtration Rate (GFR) 45 To 59 (HCC) (Primary Dx); Hyperlipidemia On Treatment; Atrial Fibrillation Paroxysmal (HCC); Monitoring For Therapeutic Drug Therapy; Jail (Current) Anticoagulant Treatment 05/11/2023 Orders Only [facility] Patrick Erickson D.O. 05/07/2023 12:25 PM OPTIMIZATION ANALYST - 05/07/2023 11:59 PM OPTIMIZATION ANALYST Hospital Encounter Department of Laboratory Medicine in [place], [place] [address] [address] Patrick Erickson D.O. 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 Atrial Fibrillation Paroxysmal (HCC) (Primary Dx); 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 Glomerular Filtration Rate (GFR) 45 To 59 (HCC); Hyperlipidemia On Treatment; Monitoring For Therapeutic Drug Therapy; Experimental [employer] Fabricator (Current) Anticoagulant Treatment 04/30/2023 1:30 PM OPTIMIZATION ANALYST Anticoagulation Visit Department of Anticoagulation in [place], [place] [address] [place] [phone] Soheila Zapata P.A.-C., M.S. 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 Glomerular Filtration Rate (GFR) 45 To 59 (HCC) (Primary Dx); Hyperlipidemia On Treatment; Atrial Fibrillation Paroxysmal (HCC); Monitoring For Therapeutic Drug Therapy; Jail (Current) Anticoagulant Treatment 04/30/2023 12:24 PM OPTIMIZATION ANALYST - 04/30/2023 11:59 PM OPTIMIZATION ANALYST Hospital Encounter Department of Laboratory Medicine in [address] [address] Patrick Erickson D.O. 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 Glomerular Filtration Rate (GFR) 45 To 59 (HCC); Hyperlipidemia On Treatment; Atrial Fibrillation Paroxysmal (HCC); Monitoring For Therapeutic Drug Therapy; Experimental [employer] Fabricator (Current) Anticoagulant Treatment Discharge Disposition: Home or Self Care 04/28/2023 Refill Department of Internal Medicine in [address] [address] Soheila Zapata P.A.-C., M.S. Med Refill 04/28/2023 Refill Department of Internal Medicine in [address] [address] Anna Iniguez APRN, C.N.P., D.N.P. Med Refill 04/27/2023 11:20 AM OPTIMIZATION ANALYST Office Visit Department of Internal Medicine in [address] [address] Anna Iniguez APRN, C.N.P., D.N.P. Dermatitis Perioral (Primary Dx); 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 Glomerular Filtration Rate (GFR) 45 To 59 (HCC); Atrial Fibrillation Paroxysmal (HCC); Allergy Unspecified Initial 04/18/2023 Refill Department of Internal Medicine in [address] [address] Anna Iniguez APRN, C.N.P., D.N.P. Med Refill 04/02/2023 2:38 PM OPTIMIZATION ANALYST - 04/02/2023 11:59 PM OPTIMIZATION ANALYST Hospital Encounter Department of Laboratory Medicine in [place], [place] [address] [place] [address] Patrick Erickson D.O. 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 Glomerular Filtration Rate (GFR) 45 To 59 (HCC); Hyperlipidemia On Treatment; Atrial Fibrillation Paroxysmal (HCC); Monitoring For Therapeutic Drug Therapy; Jail (Current) Anticoagulant Treatment Discharge Disposition: Home or Self Care 04/02/2023 3:30 PM OPTIMIZATION ANALYST Anticoagulation Visit Department of Anticoagulation in [place], [place] [address] [place] [address] Soheila Zapata P.Genie.-C., M.S. 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 Glomerular Filtration Rate (GFR) 45 To 59 (HCC) (Primary Dx); Hyperlipidemia On Treatment; Atrial Fibrillation Paroxysmal (HCC); Monitoring For Therapeutic Drug Therapy; Jail (Current) Anticoagulant Treatment 03/19/2023 4:10 PM OPTIMIZATION ANALYST Anticoagulation Visit Department of Anticoagulation in [place], [place] [address] [place] [phone] Soheila Zapata P.Genie.-C., M.S. 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 Glomerular Filtration Rate (GFR) 45 To 59 (HCC) (Primary Dx); Hyperlipidemia On Treatment; Atrial Fibrillation Paroxysmal (HCC); Monitoring For Therapeutic Drug Therapy; Experimental [employer] Fabricator (Current) Anticoagulant Treatment 03/19/2023 3:12 PM OPTIMIZATION ANALYST - 03/19/2023 11:59 PM OPTIMIZATION ANALYST Hospital Encounter Department of Laboratory Medicine in [address] [address] Patrick Erickson D.O. 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 Glomerular Filtration Rate (GFR) 45 To 59 (HCC); Monitoring For Therapeutic Drug Therapy; Atrial Fibrillation Paroxysmal (HCC) Discharge Disposition: Home or Self Care 03/19/2023 Orders Only Department of Anticoagulation in [place], [place] [address] [place] [address] Soham Chino R.N. 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 Glomerular Filtration Rate (GFR) 45 To 59 (HCC) (Primary Dx); Monitoring For Therapeutic Drug Therapy; Atrial Fibrillation Paroxysmal (HCC) 03/19/2023 Nurse Triage Department of Internal Medicine in [place], [place] [address] [place] [address] Rosa Isela Pelayo R.N. Urinary Symptom 03/12/2023 2:50 PM OPTIMIZATION ANALYST - 03/12/2023 11:59 PM OPTIMIZATION ANALYST Hospital Encounter Department of Laboratory Medicine in [address] [address] Patrick Erickson D.O. Atrial Fibrillation Paroxysmal (HCC); Monitoring For Therapeutic Drug Therapy; Jail (Current) Anticoagulant Treatment Discharge Disposition: Home or Self Care 03/12/2023 4:20 PM OPTIMIZATION ANALYST Anticoagulation Visit Department of Anticoagulation in [place], [place] [address] [place] [address] Soheila Zapata P.A.-C., M.S. 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 Glomerular Filtration Rate (GFR) 45 To 59 (HCC) (Primary Dx); Hyperlipidemia On Treatment; Atrial Fibrillation Paroxysmal (HCC); Monitoring For Therapeutic Drug Therapy; Jail (Current) Anticoagulant Treatment 03/09/2023 1:50 PM OPTIMIZATION ANALYST - 03/09/2023 11:59 PM OPTIMIZATION ANALYST Hospital Encounter Department of Laboratory Medicine in [address] [address] Patrick Erickson D.Claudia Atrial Fibrillation Paroxysmal (HCC); Monitoring For Therapeutic Drug Therapy; Jail (Current) Anticoagulant Treatment Discharge Disposition: Home or Self Care 03/09/2023 2:30 PM OPTIMIZATION ANALYST Anticoagulation Visit Department of Anticoagulation in [place], [place] [address] [place] [phone] Soheila Zapata P.A.-C., M.S. 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 Atrial Fibrillation Paroxysmal (HCC); Monitoring For Therapeutic Drug Therapy; Jail (Current) Anticoagulant Treatment Discharge Disposition: Home or Self Care 03/05/2023 4:00 PM OPTIMIZATION ANALYST Anticoagulation Visit Department of Anticoagulation in [place], [place] [address] [place] [phone] Soheila Zapata P.A.-C., M.S. 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 Atrial Fibrillation Paroxysmal (HCC) (Primary Dx); Monitoring For Therapeutic Drug Therapy; Jail (Current) Anticoagulant Treatment 02/24/2023 4:20 PM OPTIMIZATION ANALYST - 02/24/2023 11:59 PM OPTIMIZATION ANALYST Hospital Encounter Department of Laboratory Medicine in [address] [address] Soheila Zapata P.A.-C., M.S. Atrial Fibrillation Paroxysmal (HCC); Monitoring For Therapeutic Drug Therapy; Jail (Current) Anticoagulant Treatment Discharge Disposition: Home or Self Care 02/24/2023 Clinical Communication Department of Family Medicine, [address] in [address] [place] [address] Medina Langston R.N. COVID Treatment Review; Error 02/24/2023 Nurse Triage Department of Internal Medicine in [place], [place] [address] [phone] WhalenSandra Wayne R.N. COVID Nurse Line (/) 02/22/2023 Nurse Triage Department of Internal Medicine in [place], [place] [address] [place] [address] Trish Smith R.N. Cough 02/16/2023 9:20 AM OPTIMIZATION ANALYST - 02/16/2023 11:59 PM OPTIMIZATION ANALYST Hospital Encounter Department of Laboratory Medicine in [place], [place] [address] [place] [phone] Patrick Erickson D.O. Atrial Fibrillation Paroxysmal (HCC); Monitoring For Therapeutic Drug Therapy; Jail (Current) Anticoagulant Treatment Discharge Disposition: Home or Self Care 02/16/2023 10:00 AM OPTIMIZATION ANALYST Anticoagulation Visit Department of Anticoagulation in [place], [place] [address] [place] [address] Soheila Zapata PArcadio.-C., M.S. Atrial Fibrillation Paroxysmal (HCC) (Primary Dx); Monitoring For Therapeutic Drug Therapy; Experimental Plastics Fabricator (Current) Anticoagulant Treatment 02/09/[address] [facility] Patrick Erickson D.O. 02/02/2023 12:30 PM OPTIMIZATION ANALYST Anticoagulation Visit Department of Anticoagulation in [place], [place] [address] [place] [phone] Soheila Zapata P.A.-Darryl, M.S. Atrial Fibrillation Paroxysmal (HCC) (Primary Dx); Monitoring For Therapeutic Drug Therapy; Experimental Plastics Fabricator (Current) Anticoagulant Treatment 02/02/2023 11:50 AM OPTIMIZATION ANALYST - 02/02/2023 11:59 PM OPTIMIZATION ANALYST Hospital Encounter Department of Laboratory Medicine in [place], [place] [address] [place] [phone] Patrick Erickson D.O. Atrial Fibrillation Paroxysmal (HCC); Monitoring For Therapeutic Drug Therapy; Jail (Current) Anticoagulant Treatment Discharge Disposition: Home or Self Care 01/26/2023 10:00 AM OPTIMIZATION ANALYST Anticoagulation Visit Department of Anticoagulation in [place], [place] [address] [place] [address] Soheila Zapata P.A.-C., M.S. Atrial Fibrillation Paroxysmal (HCC) (Primary Dx); Monitoring For Therapeutic Drug Therapy; Jail (Current) Anticoagulant Treatment 01/26/2023 9:20 AM OPTIMIZATION ANALYST - 01/26/2023 11:59 PM OPTIMIZATION ANALYST Hospital Encounter Department of Laboratory Medicine in [address] [address] Patrick Erickson D.O. Atrial Fibrillation Paroxysmal (HCC); Monitoring For Therapeutic Drug Therapy; Experimental [employer] Fabricator (Current) Anticoagulant Treatment Discharge Disposition: Home or Self Care 01/14/2023 Clinical Communication Department of Spine in [address] [address] Sirisha Valentino Follow-up ([facility] is calling to complete your 1-year follow-up PROMIS-CAT questionnaires. You will receive questionnaires at different timepoints in the future. You can complete the current questionnaires in your portal and no return call is necessary. If you have any questions, please call us at: [phone]. Thank you! / ) 12/15/2022 12:00 PM CDT Anticoagulation Visit Department of Anticoagulation in [address] [address] Soheila Zapata P.A.-C., M.S. Atrial Fibrillation Paroxysmal (HCC) (Primary Dx); Monitoring For Therapeutic Drug Therapy; Jail (Current) Anticoagulant Treatment; 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 Glomerular Filtration Rate (GFR) 45 To 59 (HCC) 12/15/2022 11:20 AM CDT - 12/15/2022 11:59 PM CDT Hospital Encounter Department of Laboratory Medicine in [address] [address] Patrick Erickson D.O. Atrial Fibrillation Paroxysmal (HCC); Monitoring For Therapeutic Drug Therapy; Experimental Plastics Fabricator (Current) Anticoagulant Treatment Discharge Disposition: Home or Self Care 11/17/2022 3:10 PM CDT Anticoagulation Visit Department of Anticoagulation in [address] [phone] Soheila Zapata P.A.-C., M.S. Atrial Fibrillation Paroxysmal (HCC) (Primary Dx); Monitoring For Therapeutic Drug Therapy; Jail (Current) Anticoagulant Treatment 11/17/2022 2:08 PM CDT - 11/17/2022 11:59 PM CDT Hospital Encounter Department of Laboratory Medicine in [address] [address] Soheila Zapata P.A.-C., M.S. Atrial Fibrillation Paroxysmal (HCC); Monitoring For Therapeutic Drug Therapy; Jail (Current) Anticoagulant Treatment Discharge Disposition: Home or Self Care 11/10/2022 12:00 PM CDT - 11/10/2022 11:59 PM CDT Hospital Encounter Department of Laboratory Medicine in [address] [address] Soheila Zapata P.A.-C., M.S. Atrial Fibrillation Paroxysmal (HCC); Monitoring For Therapeutic Drug Therapy; Jail (Current) Anticoagulant Treatment Discharge Disposition: Home or Self Care 11/10/2022 12:40 PM CDT Anticoagulation Visit Department of Anticoagulation in [place], [place] [address] [place] [address] Soheila Zapata P.A.-C., M.S. Atrial Fibrillation Paroxysmal (HCC) (Primary Dx); Monitoring For Therapeutic Drug Therapy; Jail (Current) Anticoagulant Treatment 11/04/2022 12:33 PM CDT - 11/04/2022 11:59 PM CDT Hospital Encounter Department of Laboratory Medicine in [place], [place] [address] [place] [phone] Patrick Erickson D.O. Atrial Fibrillation Paroxysmal (HCC); Monitoring For Therapeutic Drug Therapy; Jail (Current) Anticoagulant Treatment Discharge Disposition: Home or Self Care 11/04/2022 2:30 PM CDT Anticoagulation Visit Department of Anticoagulation in [place], [place] [address] [place] [phone] Soheila Zapata P.A.-C., M.S. Atrial Fibrillation Paroxysmal (HCC) (Primary Dx); Monitoring For Therapeutic Drug Therapy; Experimental [employer]astics Fabricator (Current) Anticoagulant Treatment 10/28/2022 8:00 AM CDT Anticoagulation Visit Department of Anticoagulation in [place], [place] [address] [place] [address] Patrick Erickson D.O. Atrial Fibrillation Paroxysmal (HCC) (Primary Dx); Monitoring For Therapeutic Drug Therapy; Experimental Plastics Fabricator (Current) Anticoagulant Treatment 10/27/2022 Clinical Communication Department of Anticoagulation in [place], [place] [address] [place] [address] Annalise Palmer R.N. Anticoagulation (Unable to reach ) 10/27/2022 11:16 AM CDT - 10/27/2022 11:59 PM CDT Hospital Encounter Department of Laboratory Medicine in [address] [phone] Patrick Erickson D.O. Atrial Fibrillation Paroxysmal (HCC); Monitoring For Therapeutic Drug Therapy; Experimental Plastics Fabricator (Current) Anticoagulant Treatment Discharge Disposition: Home or Self Care 10/21/2022 Clinical Communication Department of Anticoagulation in [place], [place] [address] [place] [phone] Angela Shukla R.N. Anticoagulation (CCM-Enrollment) 10/12/2022 Orders Only Department of Internal Medicine in [address] [phone] Soheila Zapata P.Genie.-C., M.S. 10/12/2022 9:20 AM CDT - 10/12/2022 11:59 PM CDT Hospital Encounter Department of Laboratory Medicine in [address] [address] Patrick Erickson D.O. 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 Atrial Fibrillation Paroxysmal (HCC) (Primary Dx); Monitoring For Therapeutic Drug Therapy; Experimental Plastics Fabricator (Current) Anticoagulant Treatment 10/02/2022 Clinical Communication Department of Anticoagulation in [place], [place] [address] [place] [phone] Carmen Dorado Anticoagulation (Enrollment Update) 10/02/2022 Orders Only Department of Anticoagulation in [place], [place] [address] [place] [address] Thalia Zepeda R.N. Atrial Fibrillation Paroxysmal (HCC) (Primary Dx); Experimental Plastics Fabricator (Current) Anticoagulant Treatment; Monitoring For Therapeutic Drug Therapy 10/02/2022 8:00 AM CDT Anticoagulation Visit Department of Anticoagulation in [place], [place] [address] [place] [address] Patrick Erickson D.O. Atrial Fibrillation Paroxysmal (HCC) (Primary Dx); Monitoring For Therapeutic Drug Therapy; Experimental Plastics Fabricator (Current) Anticoagulant Treatment 10/01/2022 Clinical Communication Department of Anticoagulation in [place], [place] [address] [place] [phone] Hemalatha Lewis R.N. Anticoagulation 10/01/2022 8:50 AM CDT - 10/01/2022 11:59 PM CDT Hospital Encounter Department of Laboratory Medicine in [address] [address] Patrick Erickson D.O. Atrial Fibrillation Paroxysmal (HCC); Monitoring For Therapeutic Drug Therapy; Jail (Current) Anticoagulant Treatment Discharge Disposition: Home or Self Care 09/17/2022 Orders Only Department of Internal Medicine in [place], [place] [address] [place] [address] Soheila Zapata P.A.-C., M.S. 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 Glomerular Filtration Rate (GFR) 45 To 59 (HCC) (Primary Dx) 09/17/2022 11:16 AM CDT - 09/17/2022 11:59 PM CDT Hospital Encounter Department of Laboratory Medicine in [address] [address] Patrick Erickson D.O. Monitoring For Therapeutic Drug Therapy Discharge Disposition: Home or Self Care 09/17/2022 10:20 AM CDT - 09/17/2022 11:15 AM CDT Hospital Encounter Department of Laboratory Medicine in [address] [address] Patrick Erickson D.O. Atrial Fibrillation Paroxysmal (HCC); Monitoring For Therapeutic Drug Therapy Discharge Disposition: Home or Self Care 09/17/2022 11:00 AM CDT Anticoagulation Visit Department of Anticoagulation in [address] [address] Soheila Zapata P.A.-C., M.S. Atrial Fibrillation Paroxysmal (HCC) (Primary Dx); Monitoring For Therapeutic Drug Therapy; Jail (Current) Anticoagulant Treatment 09/03/2022 10:20 AM CDT - 09/03/2022 11:59 PM CDT Hospital Encounter Department of Laboratory Medicine in [address] [address] Soheila Zapata, P.A.-C., M.S. Atrial Fibrillation Unspecified (HCC); Monitoring For Therapeutic Drug Therapy; Experimental Plastics Fabricator (Current) Anticoagulant Treatment Discharge Disposition: Home or Self Care 09/03/2022 11:00 AM CDT Anticoagulation Visit Department of Anticoagulation in [place], [place] [address] [place] [address] Soheila Zapata P.A.-C., M.S. Atrial Fibrillation Paroxysmal (HCC) (Primary Dx); Monitoring For Therapeutic Drug Therapy; Experimental Plastics Fabricator (Current) Anticoagulant Treatment 09/01/2022 1:00 PM CDT Office Visit Department of Cardiovascular Diseases in [place], [place] [address] [place] [address] Roberto Dumont APRN, C.N.P. Atrial Fibrillation Paroxysmal (HCC) (Primary Dx); Experimental Plastics Fabricator (Current) Anticoagulant Treatment; Bradycardia; Cardiomyopathy Dilated (HCC); 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 Glomerular Filtration Rate (GFR) 45 To 59 (HCC) 08/31/2022 11:00 AM CDT Office Visit Department of Family Medicine, [facility], in [place], [place] [address] [place] [address] Alesha Kellogg APRN, C.N.P. Laceration Blood Vessel Left Index Finger Sequela (Primary Dx) 08/12/2022 Orders Only [facility] Patrick Erickson D.O. Monitoring For Therapeutic Drug Therapy 08/10/2022 11:11 AM CDT - 08/10/2022 11:59 PM CDT Hospital Encounter Department of Laboratory Medicine in [address] [address] Soheila Zapata, P.A.-C., M.S. Atrial Fibrillation Unspecified (HCC); Monitoring For Therapeutic Drug Therapy; Experimental Plastics Fabricator (Current) Anticoagulant Treatment Discharge Disposition: Home or Self Care 08/10/2022 12:30 PM CDT Anticoagulation Visit Department of Anticoagulation in [place], [place] [address] [place] [phone] Soheila Zapata, P.A.-C., M.S. Atrial Fibrillation Unspecified (HCC) (Primary Dx); Monitoring For Therapeutic Drug Therapy; Experimental Plastics Fabricator (Current) Anticoagulant Treatment 08/07/2022 Clinical Communication Department of Anticoagulation in [place], [place] [address] [place] [phone] Lois Vidal R.N. Anticoagulation 07/27/2022 3:20 PM CDT Anticoagulation Visit Department of Anticoagulation in [place], [place] [address] [place] [phone] Soheila Zapata P.A.-C., M.S. Atrial Fibrillation Unspecified (HCC) (Primary Dx); Monitoring For Therapeutic Drug Therapy; Jail (Current) Anticoagulant Treatment 07/27/2022 2:20 PM CDT - 07/27/2022 11:59 PM CDT Hospital Encounter Department of Laboratory Medicine in [address] [address] Soheila Zapata P.A.-C., M.S. Atrial Fibrillation Unspecified (HCC); Monitoring For Therapeutic Drug Therapy; Jail (Current) Anticoagulant Treatment Discharge Disposition: Home or Self Care 06/29/2022 10:12 AM CDT - 06/29/2022 11:59 PM CDT Hospital Encounter Department of Laboratory Medicine in [address] [phone] Soheila Zapata P.A.-C., M.S. Atrial Fibrillation Unspecified; Monitoring For Therapeutic Drug Therapy; Experimental Plastics Fabricator (Current) Anticoagulant Treatment Discharge Disposition: Home or Self Care 06/29/2022 11:00 AM CDT Anticoagulation Visit Department of Anticoagulation in [address] [address] Soheila Zapata P.A.-C., M.S. Atrial Fibrillation Unspecified (Primary Dx); Monitoring For Therapeutic Drug Therapy; Experimental Plastics Fabricator (Current) Anticoagulant Treatment 06/19/2022 9:50 AM CDT - 06/19/2022 11:59 PM CDT Hospital Encounter Department of Laboratory Medicine in [address] [address] Soheila Zapata P.A.-C., M.S. Atrial Fibrillation Unspecified; Monitoring For Therapeutic Drug Therapy; Jail (Current) Anticoagulant Treatment Discharge Disposition: Home or Self Care 06/19/2022 10:30 AM CDT Anticoagulation Visit Department of Anticoagulation in [address] [address] Soheila Zapata P.A.-C., M.S. Atrial Fibrillation Unspecified (Primary Dx); Monitoring For Therapeutic Drug Therapy; Jail (Current) Anticoagulant Treatment 06/15/2022 9:50 AM CDT - 06/15/2022 11:59 PM CDT Hospital Encounter Department of Laboratory Medicine in [address] [address] Soheila Zapata P.A.-C., M.S. Atrial Fibrillation Unspecified; Monitoring For Therapeutic Drug Therapy; [employer] (Current) Anticoagulant Treatment Discharge Disposition: Home or Self Care 06/15/2022 10:30 AM CDT Anticoagulation Visit Department of Anticoagulation in [place], [place] [address] [place] [address] Soheila Zapata P.A.-C., M.S. Atrial Fibrillation Unspecified (Primary Dx); Monitoring For Therapeutic Drug Therapy; Jail (Current) Anticoagulant Treatment 06/09/2022 9:50 AM CDT - 06/09/2022 11:59 PM CDT Hospital Encounter Department of Laboratory Medicine in [address] [address] Soheila Zapata P.A.-C., M.S. Atrial Fibrillation Unspecified; Monitoring For Therapeutic Drug Therapy; [employer] (Current) Anticoagulant Treatment Discharge Disposition: Home or Self Care 06/09/2022 10:30 AM CDT Anticoagulation Visit Department of Anticoagulation in [place], [place] [address] [place] [address] Soheila Zapata P.Genie.-C., M.S. Atrial Fibrillation Unspecified (Primary Dx); Monitoring For Therapeutic Drug Therapy; [employer]ator (Current) Anticoagulant Treatment 06/03/2022 9:45 AM CDT Office Visit Department of Cardiovascular Diseases in [place], [place] [address] [address] Roberto Dumont, BALTAZAR, C.N.P. Atrial Fibrillation Unspecified (Primary Dx); Jail (Current) Anticoagulant Treatment; Cardiomyopathy Dilated (HCC); Hyperlipidemia On Treatment; 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 Glomerular Filtration Rate (GFR) 45 To 59 (HCC) 06/01/2022 7:12 AM CDT - 06/01/2022 11:59 PM CDT Hospital Encounter Department of Cardiovascular Diseases in [place], [place] [address] [place] [address] Roberto Dumont APRN, C.N.P. Cardiomyopathy Dilated (HCC) Discharge Disposition: Home or Self Care 05/12/2022 Orders Only [facility] Sohe[facility] Zap[facility] P.A.-C., M.S. Deficiency Estrogen Post Menopausal 05/12/2022 9:20 AM OPTIMIZATION ANALYST - 05/12/2022 11:59 PM OPTIMIZATION ANALYST Hospital Encounter Department of Laboratory Medicine in [address] [phone] Soheila Zapata P.A.-C., M.S. Atrial Fibrillation Unspecified; Monitoring For Therapeutic Drug Therapy; Jail (Current) Anticoagulant Treatment Discharge Disposition: Home or Self Care 05/12/2022 10:00 AM OPTIMIZATION ANALYST Anticoagulation Visit Department of Anticoagulation in [place], [place] [address] [place] [phone] Soheila Zapata P.A.-C., M.S. Atrial Fibrillation Unspecified (Primary Dx); Monitoring For Therapeutic Drug Therapy; Jail (Current) Anticoagulant Treatment 04/29/2022 8:00 AM OPTIMIZATION ANALYST Anticoagulation Visit Department of Anticoagulation in [place], [place] [address] [place] [phone] Soheila Zapata P.A.-C., M.S. Atrial Fibrillation Unspecified (Primary Dx); Monitoring For Therapeutic Drug Therapy; Jail (Current) Anticoagulant Treatment 04/28/2022 Clinical Communication Department of Anticoagulation in [place], [place] [address] [place] [address] Hemalatha Lewis R.N. 04/28/2022 2:42 PM OPTIMIZATION ANALYST - 04/28/2022 11:59 PM OPTIMIZATION ANALYST Hospital Encounter Department of Laboratory Medicine in [place], [place] [address] [place] [phone] Soheila Zapata P.A.-C., M.S. Atrial Fibrillation Unspecified; Monitoring For Therapeutic Drug Therapy; Jail (Current) Anticoagulant Treatment Discharge Disposition: Home or Self Care 04/21/2022 10:25 AM OPTIMIZATION ANALYST - 04/21/2022 11:59 PM OPTIMIZATION ANALYST Hospital Encounter Department of Laboratory Medicine in [address] [address] Roberto Dumont APRN, C.N.P. Atrial Fibrillation Unspecified Discharge Disposition: Home or Self Care 04/21/2022 9:50 AM OPTIMIZATION ANALYST - 04/21/2022 10:24 AM OPTIMIZATION ANALYST Hospital Encounter Department of Laboratory Medicine in [place], [place] [address] [place] [address] Soheila Zapata P.A.-C., M.S. Atrial Fibrillation Unspecified; Monitoring For Therapeutic Drug Therapy; Jail (Current) Anticoagulant Treatment Discharge Disposition: Home or Self Care 04/21/2022 10:30 AM OPTIMIZATION ANALYST Anticoagulation Visit Department of Anticoagulation in [place] [address] [place] [address] Soheila Zapata P.A.-C., M.S. Atrial Fibrillation Unspecified (Primary Dx); Monitoring For Therapeutic Drug Therapy; [employer]ator (Current) Anticoagulant Treatment 04/16/2022 Orders Only Department of Cardiovascular Diseases in [address] [address] Roberto Dumont, BALTAZAR, C.N.P. 04/15/2022 Refill Department of Internal Medicine in [place], [place] [address] [place] [phone] Soheila Zapata P.A.-C., M.S. Med Refill 04/15/2022 Refill Department of Internal Medicine in [place], [place] [address] [place] [phone] Addie De La Garza M.D. Med Refill 04/10/2022 Refill Department of Internal Medicine in [address] [place] [address] Soheila Zapata P.A.-C., M.S. Med Refill 04/07/2022 10:10 AM OPTIMIZATION ANALYST - 04/07/2022 10:17 AM OPTIMIZATION ANALYST Hospital Encounter Department of Laboratory Medicine in [place], [place] [address] [place] [phone] Soheila Zapata P.A.-C., M.S. Atrial Fibrillation Unspecified; Monitoring For Therapeutic Drug Therapy; Jail (Current) Anticoagulant Treatment Discharge Disposition: Home or Self Care 04/07/2022 10:50 AM OPTIMIZATION ANALYST Anticoagulation Visit Department of Anticoagulation in [place], [place] [address] [place] [phone] Soheila Zapata P.A.-C., M.S. Atrial Fibrillation Unspecified (Primary Dx); Monitoring For Therapeutic Drug Therapy; [employer]ator (Current) Anticoagulant Treatment 04/07/2022 10:18 AM OPTIMIZATION ANALYST - 04/07/2022 11:59 PM OPTIMIZATION ANALYST Hospital Encounter Department of Cardiovascular Diseases in [place], [place] [address] [place] [phone] Roberto Dumont APRN, C.N.P. Atrial Fibrillation Other Persistent (HCC) Discharge Disposition: Home or Self Care 03/31/2022 Clinical Communication Department of Internal Medicine in [place], [place] [address] [place] [phone] Soheila Zapata P.A.-C., M.S. 03/31/2022 Nurse Triage Department of Internal Medicine in [place], [place] [address] [place] [phone] Tammy Ramos M.S.N., R.N. Eye Problem 03/31/2022 12:30 PM OPTIMIZATION ANALYST Anticoagulation Visit Department of Anticoagulation in [place], [place] [address] [place] [address] Soheila Zapata P.A.-C., M.S. Atrial Fibrillation Unspecified (Primary Dx); Monitoring For Therapeutic Drug Therapy; Jail (Current) Anticoagulant Treatment 03/31/2022 11:50 AM OPTIMIZATION ANALYST - 03/31/2022 11:59 PM OPTIMIZATION ANALYST Hospital Encounter Department of Laboratory Medicine in [address] [address] Soheila Zapata P.A.-C., M.S. Atrial Fibrillation Unspecified; Monitoring For Therapeutic Drug Therapy; Jail (Current) Anticoagulant Treatment Discharge Disposition: Home or Self Care 03/27/2022 Clinical Communication Department of Anticoagulation in [address] [phone] Alesha Gonzalez R.N. Anticoagulation 03/24/2022 1:30 PM OPTIMIZATION ANALYST Anticoagulation Visit Department of Anticoagulation in [address] [address] Soheila Zapata P.A.-C., M.S. Atrial Fibrillation Unspecified (Primary Dx); Monitoring For Therapeutic Drug Therapy; Jail (Current) Anticoagulant Treatment 03/24/2022 12:44 PM OPTIMIZATION ANALYST - 03/24/2022 11:59 PM OPTIMIZATION ANALYST Hospital Encounter Department of Laboratory Medicine in [address] [address] Soheila Zapata P.A.-C., M.S. Atrial Fibrillation Unspecified; Monitoring For Therapeutic Drug Therapy; Jail (Current) Anticoagulant Treatment Discharge Disposition: Home or Self Care 03/16/2022 10:30 AM OPTIMIZATION ANALYST Anticoagulation Visit Department of Anticoagulation in [place], [place] [address] [place] [address] Soheila Zapata P.A.-C., M.S. Atrial Fibrillation Unspecified (Primary Dx); Monitoring For Therapeutic Drug Therapy; Jail (Current) Anticoagulant Treatment 03/16/2022 9:50 AM OPTIMIZATION ANALYST - 03/16/2022 11:59 PM OPTIMIZATION ANALYST Hospital Encounter Department of Laboratory Medicine in [address] [address] Soheila Zapata P.A.-C., M.S. Atrial Fibrillation Unspecified; Monitoring For Therapeutic Drug Therapy; Experimental [employer] Fabricator (Current) Anticoagulant Treatment Discharge Disposition: Home or Self Care 03/06/2022 10:50 AM OPTIMIZATION ANALYST - 03/06/2022 11:59 PM OPTIMIZATION ANALYST Hospital Encounter Department of Laboratory Medicine in [address] [address] Soheila Zapata P.A.-C., M.S. Atrial Fibrillation Unspecified; Monitoring For Therapeutic Drug Therapy; Jail (Current) Anticoagulant Treatment Discharge Disposition: Home or Self Care 03/06/2022 11:40 AM OPTIMIZATION ANALYST Anticoagulation Visit Department of Anticoagulation in [address] [address] Soheila Zapata P.A.-C., M.S. Atrial Fibrillation Unspecified (Primary Dx); Monitoring For Therapeutic Drug Therapy; Experimental [employer] Fabricator (Current) Anticoagulant Treatment 02/20/2022 10:50 AM OPTIMIZATION ANALYST - 02/20/2022 11:59 PM OPTIMIZATION ANALYST Hospital Encounter Department of Laboratory Medicine in [address] [address] Soheila Zapata P.A.-C., M.S. Atrial Fibrillation Unspecified; Monitoring For Therapeutic Drug Therapy; Experimental [employer] Fabricator (Current) Anticoagulant Treatment Discharge Disposition: Home or Self Care 02/20/2022 11:30 AM OPTIMIZATION ANALYST Anticoagulation Visit Department of Anticoagulation in [address] [address] Soheila Zapata P.A.-C., M.S. Atrial Fibrillation Unspecified (Primary Dx); Monitoring For Therapeutic Drug Therapy; Experimental [employer] Fabricator (Current) Anticoagulant Treatment 02/13/2022 11:20 AM OPTIMIZATION ANALYST - 02/13/2022 11:59 PM OPTIMIZATION ANALYST Hospital Encounter Department of Laboratory Medicine in [address] [address] Soheila Zapata P.A.-C., M.S. Atrial Fibrillation Unspecified; Monitoring For Therapeutic Drug Therapy; Jail (Current) Anticoagulant Treatment Discharge Disposition: Home or Self Care 02/13/2022 12:00 PM OPTIMIZATION ANALYST Anticoagulation Visit Department of Anticoagulation in [place], [place] [address] [place] [address] Soheila Zapata P.A.-C., M.S. Atrial Fibrillation Unspecified (Primary Dx); Monitoring For Therapeutic Drug Therapy; Jail (Current) Anticoagulant Treatment 02/09/2022 8:00 AM OPTIMIZATION ANALYST Anticoagulation Visit Department of Anticoagulation in [address] [address] Soheila Zapata P.A.-C., M.S. Atrial Fibrillation Unspecified (Primary Dx); Monitoring For Therapeutic Drug Therapy; Jail (Current) Anticoagulant Treatment 02/06/2022 Clinical Communication Department of Anticoagulation in [address] [address] Trish Chambers R.N. Anticoagulation (Unable to reach ) 02/06/2022 2:40 PM OPTIMIZATION ANALYST - 02/06/2022 11:59 PM OPTIMIZATION ANALYST Hospital Encounter Department of Laboratory Medicine in [address] [address] Soheila Zapata P.A.-C., M.S. Atrial Fibrillation Unspecified; Monitoring For Therapeutic Drug Therapy; Jail (Current) Anticoagulant Treatment Discharge Disposition: Home or Self Care 02/03/2022 1:00 PM OPTIMIZATION ANALYST Virtual Visit Department of Patient Education in [address] [address] Soheila Zapata P.A.-C., M.S. Genesis Hooper, M.S. Atrial Fibrillation Unspecified; Monitoring For Therapeutic Drug Therapy; Jail (Current) Anticoagulant Treatment 02/02/2022 12:50 PM OPTIMIZATION ANALYST Anticoagulation Visit Department of Anticoagulation in [address] [address] Soheila Zapata P.A.-C., M.S. Atrial Fibrillation Unspecified (Primary Dx); Monitoring For Therapeutic Drug Therapy; Jail (Current) Anticoagulant Treatment 02/02/2022 12:06 PM OPTIMIZATION ANALYST - 02/02/2022 11:59 PM OPTIMIZATION ANALYST Hospital Encounter Department of Laboratory Medicine in [place], [place] [address] [address] Soheila Zapata P.A.-C., M.S. Atrial Fibrillation Unspecified; Monitoring For Therapeutic Drug Therapy; Experimental [employer] Fab[employer]ator (Current) Anticoagulant Treatment Discharge Disposition: Home or Self Care 01/23/2022 3:40 PM OPTIMIZATION ANALYST - 01/23/2022 11:59 PM OPTIMIZATION ANALYST Hospital Encounter Department of Laboratory Medicine in [place], [place] [address] [place] [address] Soheila Zapata P.A.-C., M.S. Atrial Fibrillation Unspecified; Monitoring For Therapeutic Drug Therapy; Experimental [employer] Fabricator (Current) Anticoagulant Treatment Discharge Disposition: Home or Self Care 01/23/2022 4:20 PM OPTIMIZATION ANALYST Anticoagulation Visit Department of Anticoagulation in [place], [place] [address] [place] [address] Soheila Zapata P.A.-C., M.S. Atrial Fibrillation Unspecified (Primary Dx); Monitoring For Therapeutic Drug Therapy; Jail (Current) Anticoagulant Treatment 01/20/2022 Clinical Communication Department of Anticoagulation in [place], [place] [address] [place] [phone] Iris Singh Anticoagulation (Unable to reach ) 01/16/2022 10:50 AM OPTIMIZATION ANALYST Anticoagulation Visit Department of Anticoagulation in [place], [place] [address] [place] [address] Soheila Zapata P.A.-CHowie, M.S. Atrial Fibrillation Unspecified (Primary Dx); Monitoring For Therapeutic Drug Therapy; Jail (Current) Anticoagulant Treatment 01/15/2022 Clinical Communication Department of Anticoagulation in [place], [place] [address] [place] [phone] Angela Shukla, RHowieN. Anticoagulation (Unable to reach) 01/15/2022 11:20 AM OPTIMIZATION ANALYST - 01/15/2022 11:59 PM OPTIMIZATION ANALYST Hospital Encounter Department of Laboratory Medicine in [address] [phone] Soheila Zapata P.A.-C., M.S. Atrial Fibrillation Unspecified; Monitoring For Therapeutic Drug Therapy; Jail (Current) Anticoagulant Treatment Discharge Disposition: Home or Self Care 01/14/2022 11:30 AM OPTIMIZATION ANALYST Office Visit Department of Physical Medicine and Rehabilitation in [place], [place] [address] [place] [phone] Eder Torres M.D. 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 Atrial Fibrillation Unspecified (Primary Dx); Monitoring For Therapeutic Drug Therapy; Jail (Current) Anticoagulant Treatment 01/12/2022 1:40 PM OPTIMIZATION ANALYST - 01/12/2022 11:59 PM OPTIMIZATION ANALYST Hospital Encounter Department of Laboratory Medicine in [place], [place] [address] [place] [phone] Soheila Zapata P.A.Quincy., M.S. Atrial Fibrillation Unspecified; Monitoring For Therapeutic Drug Therapy; Jail (Current) Anticoagulant Treatment Discharge Disposition: Home or Self Care 01/07/2022 Clinical Communication Department of Anticoagulation in [place], [place] [address] [place] [address] Soham Chino, R.N. Anticoagulation (Welcome call) 01/06/2022 Orders Only Department of Anticoagulation in [place], [place] [address] [place] [address] Soham Chino, R.N. Atrial Fibrillation Unspecified (Primary Dx); Jail (Current) Anticoagulant Treatment 12/30/2021 2:09 PM CDT - 12/30/2021 11:59 PM CDT Hospital Encounter Department of Laboratory Medicine in [place], [place] [address] [address] Roberto Dumont APRN, C.N.P. 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 Lumbago With Sciatica Left Side; Spondylolysis Lumbar Region Discharge Disposition: Home or Self Care 12/17/2021 2:00 PM CDT Comprehensive Visit Department of Physical Medicine and Rehabilitation in [address] [phone] Eder Torres M.D. Spondylolysis Lumbar Region (Primary Dx); Lumbago With Sciatica Left Side; Spinal Stenosis Lumbar Region Without Neurogenic Claudication 12/14/2021 Refill Department of Internal Medicine in [address] [address] Addie De La Garza M.D. Med Refill 12/10/2021 Orders Only Department of Internal Medicine in [address] [phone] Soheila Zapata P.A.-C., M.S. Screening Colon Cancer Average Risk 12/09/2021 2:00 PM CDT Office Visit Department of Internal Medicine in [address] [address] Soheila Zapata P.A.-C., M.S. 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 Maintenance Health Adult Discharge Disposition: Home or Self Care 11/18/2021 Clinical Communication Department of Internal Medicine in [address] [address] Soheila Zapata P.A.-C., M.S. Pain 11/06/2021 2:35 PM CDT - 11/06/2021 11:59 PM CDT Hospital Encounter Department of Laboratory Medicine in [address] [address] Soheila Zapata P.A.-C., M.S. Hypertensive Chronic Kidney Disease (CKD) Stage 3a Glomerular Filtration Rate (GFR) 45 To 59 (HCC); Hyperlipidemia On Treatment; Maintenance Health Adult; Screening Examination Diabetes Mellitus Discharge Disposition: Home or Self Care 11/06/2021 1:30 PM CDT Office Visit Department of Internal Medicine in [address] [phone] Soheila Zapata P.A.-C., M.S. Radiculopathy Lumbar Fifth Left (Primary Dx); Radiculopathy Sacral; Cardiomyopathy Dilated (HCC); Hypertensive Chronic Kidney Disease (CKD) Stage 3a Glomerular Filtration Rate (GFR) 45 To 59 (HCC); Hyperlipidemia On Treatment; Screening Examination Diabetes Mellitus; Maintenance Health Adult 11/04/2021 9:30 AM CDT Office Visit Department of Internal Medicine in [address] [address] Stevan Bhakta D.O. Procedure And Treatment Not Carried Out Due To Patient Leaving Prior To Being Seen By Health Care Provider (Primary Dx) 10/16/2021 Clinical Communication Department of Internal Medicine in [address] [phone] Ermelinda Valle M.D. 10/16/2021 Clinical Communication Department of Internal Medicine in [address] [address] Addie De La Garza M.D. Angelica referal 09/26/2021 Clinical Communication Department of Internal Medicine in [address] [address] Stevan Bhakta D.O. Form Review (Tnasaf PT - 09/25/21) 09/17/2021 Clinical Communication Department of Internal Medicine in [address] [address] Ermelinda Valle M.D. 08/21/2021 Clinical Communication Department of Internal Medicine in [address] [address] Stevan Bhakta D.O. Form Review ([place]) 08/19/2021 9:45 AM CDT Office Visit Department of Internal Medicine in [address] [phone] Ermelinda Valle M.D. Lumbago With Sciatica Left Side (Primary Dx) 08/15/2021 Clinical Communication Department of Internal Medicine in [place], [place] [address] [place] [address] Stevan Bhakta, D.O. 08/12/[address] [facility] Ermelinda Kay M.D. Deficiency Estrogen Post Menopausal 07/23/[address] [facility] Stevan Bhakta, D.O. 06/26/2021 2:30 PM CDT Office Visit Department of Internal Medicine in [place], [place] [address] [place] [address] Addie De La Garza M.D. Migraine Headache (Primary Dx); Chronic Kidney Disease (CKD), Stage 3 Unspecified (HCC); Hyperlipidemia On Treatment; Rash; Hypertensive Chronic Kidney Disease (CKD) Stage 3a Glomerular Filtration Rate (GFR) 45 To 59 05/07/[address] [facility] Stevan Bhakta, D.O. Monitoring For Therapeutic Drug Therapy 01/14/[address] [facility] Elliot Bhaktawa, D.O. Screening Cancer Colon 01/14/[address] [facility] Padmini nieto, Salwa, D.O. Screening Cancer Colon 12/31/[address] [facility] Ermelinda Kay M.D. 11/12/2020 Orders Only [facility] Padmini nieto, Stevan, D.O. Screening Mammogram Breast Cancer; Deficiency Estrogen Post Menopausal 11/04/2020 Clinical Communication Division of [facility] Internal Medicine, [facility] in [place], [place] [address] [place] [address] Nancy Lovett R.N. COVID Nurse Line 11/04/2020 Clinical Communication Department of Internal Medicine in [address] [address] Stevan Bhakta D.O. COVID Inquiry 08/19/2020 Refill Department of Internal Medicine in [address] [address] Stevan Bhakta D.O. Med Refill 06/19/2020 Clinical Communication Department of Internal Medicine in [address] [address] Stevan Bhakta D.O. 06/06/2020 Clinical Communication Department of Internal Medicine in [address] [address] Butch Velazquez M.D. 05/27/2020 3:17 PM CDT - 05/27/2020 11:59 PM CDT Hospital Encounter Department of Cardiovascular Diseases in [address] [address] Butch Velazquez M.D. Cardiomyopathy Dilated (HCC) Discharge Disposition: Home or Self Care 05/17/2020 10:45 AM OPTIMIZATION ANALYST - 05/17/2020 10:53 AM OPTIMIZATION ANALYST Hospital Encounter Department of Laboratory Medicine in [address] [phone] Butch Velazquez M.D. Cardiomyopathy Dilated (HCC) Discharge Disposition: Home or Self Care 05/17/2020 10:54 AM OPTIMIZATION ANALYST - 05/17/2020 11:59 PM OPTIMIZATION ANALYST Hospital Encounter Department of Radiology in [address] [address] Butch Velazquez M.D. Pain Low Back Discharge Disposition: Home or Self Care 05/16/2020 2:00 PM OPTIMIZATION ANALYST Office Visit Department of Internal Medicine in [address] [address] Butch Velazquez M.D. Personal History Of Infectious And Parasitic Disease (COVID-19) (Primary Dx); Radiculopathy Lumbar; Pain Low Back; Cardiomyopathy Dilated (HCC); Chronic Kidney Disease (CKD), Stage 3 Unspecified (HCC) 05/13/2020 Clinical Communication Department of Internal Medicine in [address] [address] Stevan Bhakta D.O. COVID Inquiry 03/14/2020 Orders Only Department of Internal Medicine in [address] [address] Butch Velazquez M.D. 02/12/[address] [facility] tSevan Bhakta D.O. Deficiency Estrogen Post Menopausal; Screening Examination Diabetes Mellitus; Monitoring For Therapeutic Drug Therapy 11/27/2019 Clinical Communication Department of Internal Medicine in [address] [address] Stevan Bhakta D.O. Results 11/25/2019 External Outreach Department of Internal Medicine in [place], [place] [address] [place] [phone] Patrick Erickson D.O. Infection Upper Respiratory (Primary Dx) Discharge Disposition: Home or Self Care 11/25/2019 Clinical Communication Division of [facility] Internal Medicine, [facility] in [place], [place] [address] [place] [address] Medina Rocha R.N. COVID Nurse Line 09/29/2019 Clinical Communication Department of Internal Medicine in [place], [place] [address] [place] [phone] Stevan Bhakta D.O. Results 09/28/2019 External Outreach Department of Internal Medicine in [address] [address] Patrick Erickson D.O. Infection Upper Respiratory (Primary Dx) Discharge Disposition: Home or Self Care 08/23/2019 Orders Only T PCP [facility] Stevan Bhakta D.O. Screening Mammogram Breast Cancer 12/14/[address] [facility] Stevan Bhakta D.O. Screening Examination Diabetes Mellitus; Monitoring For Therapeutic Drug Therapy 11/09/2018 Refill Department of Cardiovascular Diseases in [address] [phone] Roberto Dumont APRN, C.N.P. Med Refill 10/26/2018 2:30 PM CDT Office Visit Department of Internal Medicine in [address] [address] Butch Velazquez M.D. Neuralgia Post Herpetic (Primary Dx) 09/23/2018 8:30 AM CDT Office Visit Urgent Care in [address] [phone] Omi Talbot P.A.-Darryl, P.A. Herpes Zoster (Primary Dx); Insect Bite Nonvenomous Abdominal Wall Initial 05/12/[address] [facility] SEMN PCP [facility] Stevan Bhakta D.O. Screening Mammogram Breast Cancer 01/25/2018 Refill Department of Cardiovascular Diseases in [address] [address] Roberto Dumont APRN, C.N.P. Med Refill 01/05/2018 Orders Only Department of Internal Medicine in [address] [address] Stevan Bhakta D.O. Deficiency Estrogen Post Menopausal; Screening Mammogram Average Risk Patient 12/30/2017 12:30 PM CDT Office Visit Department of Cardiovascular Diseases in [address] [address] Tariq Estrella M.D. Brandl, Adam C, BALTAZAR CHowieNHowiePHowie Cardiomyopathy Dilated (HCC); Dyslipidemia 12/28/2017 12:00 PM CDT - 12/28/2017 11:59 PM CDT Hospital Encounter Department of Laboratory Medicine in [address] [address] Tariq Estrella M.D. Cardiomyopathy Dilated (HCC) Discharge Disposition: Home or Self Care 07/29/2017 Clinical Communication Department of Cardiovascular Diseases in [address] [phone] Tariq Estrella M.D. Results 07/28/2017 8:34 AM CDT - 07/28/2017 11:59 PM CDT Hospital Encounter Department of Cardiovascular Diseases in [address] [address] Tariq Estrella M.D. Cardiomyopathy Dilated (HCC) Discharge Disposition: Home or Self Care 07/21/2017 Refill Department of Cardiovascular Diseases in [address] [phone] Tariq Estrella M.D. Med Refill 07/19/2017 11:23 AM CDT - 07/19/2017 11:59 PM CDT Hospital Encounter Department of Radiology in [address] [address] Bayron Fernandez M.D. Pain Low Back Acute Discharge Disposition: Home or Self Care 07/19/2017 12:00 PM CDT Office Visit Urgent Care in [place], [place] [address] [place] [phone] Bayron Fernandez M.D. Pain Low Back Acute (Primary Dx) 07/02/2017 Clinical Communication Department of Cardiovascular Diseases in [address] [phone] Willis Lopez M.H.A. Communication 07/02/2017 Clinical Communication Department of Internal Medicine in [address] [address] Elgin Armas M.D. Communication 07/02/2017 10:45 AM CDT Office Visit Department of Cardiovascular Diseases in [address] [phone] Tariq Estrella M.D. Cardiomyopathy Dilated (HCC) (Primary Dx); Dyslipidemia 06/30/2017 7:57 AM CDT - 06/30/2017 11:59 PM CDT Hospital Encounter Department of Laboratory Medicine in [address] [phone] Elgin Armas M.D. Failure Heart (HCC) Discharge Disposition: Home or Self Care 05/19/2017 Orders Only Department of Internal Medicine in [address] [address] Elgin Armas M.D. Diabetes Mellitus Type 2 (HCC) (Primary Dx); Screening Mammogram Average Risk Patient 12/18/2016 Orders Only Department of Cardiovascular Diseases in [address] [address] Tariq Estrella M.D. Failure Heart (HCC) 08/17/2016 8:27 AM CDT - 08/17/2016 11:59 PM CDT Hospital Encounter [facility] Parvin Chandler M.D. 07/09/2016 10:38 AM CDT - 07/09/2016 11:59 PM CDT Hospital Encounter [facility] Tariq Estrella M.D. 07/01/2016 10:31 AM CDT - 07/01/2016 11:59 PM CDT Hospital Encounter [facility] Tariq Estrella M.D. 06/24/2016 9:03 AM CDT - 06/24/2016 11:59 PM CDT Hospital Encounter [facility] E[facility] Braulio Simmons M.D. 08/14/2015 8:34 AM CDT - 08/14/2015 11:59 PM CDT Hospital Encounter [facility] INTERNMED Braulio Simmons M.D. 08/12/2015 8:22 AM CDT - 08/12/2015 11:59 PM CDT Hospital Encounter [facility] Boby Busby M.D. 08/12/2015 8:01 AM CDT - 08/12/2015 11:59 PM CDT Hospital Encounter [facility] Braulio Simmons M.D. 06/21/2015 9:58 AM CDT - 06/21/2015 11:59 PM CDT Hospital Encounter [facility] Tariq Estrella M.D. 06/13/2015 7:48 AM CDT - 06/13/2015 11:59 PM CDT Hospital Encounter [facility] Tariq Estrella M.D. 06/13/2015 8:38 AM CDT - 06/13/2015 11:59 PM CDT Hospital Encounter [facility] Tariq Estrella M.D. 02/13/2015 10:51 AM OPTIMIZATION ANALYST - 02/13/2015 11:59 PM OPTIMIZATION ANALYST Hospital Encounter [facility]X [facility] INTERNMED Braulio Simmons M.D. 02/11/2015 9:17 AM OPTIMIZATION ANALYST - 02/11/2015 11:59 PM OPTIMIZATION ANALYST Hospital Encounter [facility]X [facility] Braulio Simmons M.D. 12/14/2014 12:55 PM CDT - 12/14/2014 11:59 PM CDT Hospital Encounter [facility] Tariq Estrella M.D. 12/05/2014 10:58 AM CDT - 12/05/2014 11:59 PM CDT Hospital Encounter HX NO MAPPING Tariq Estrella M.D. 12/05/2014 9:11 AM CDT - 12/05/2014 11:59 PM CDT Hospital Encounter [facility] Tariq Estrella M.D. 12/05/2014 8:04 AM CDT - 12/05/2014 11:59 PM CDT Hospital Encounter [facility] Tariq Estrella M.D. 10/24/2014 10:38 AM CDT - 10/24/2014 11:59 PM CDT Hospital Encounter [facility]X [facility] INTERNRoberto Barnes APRN, C.N.P. 09/24/2014 10:39 AM CDT - 09/24/2014 11:59 PM CDT Hospital Encounter [facility] INTERNRoberto Barnes APRN, C.N.P. 09/21/2014 8:26 AM CDT - 09/21/2014 11:59 PM CDT Hospital Encounter [facility] Braulio Simmons M.D. 09/21/2014 8:26 AM CDT - 09/21/2014 11:59 PM CDT Hospital Encounter [facility] Braulio Simmons M.D. 08/30/2014 1:52 PM CDT - 08/30/2014 11:59 PM CDT Hospital Encounter [facility] INTERNRoberto Barnes APRN, C.N.P. 08/29/2014 9:28 AM CDT - 08/29/2014 11:59 PM CDT Hospital Encounter [facility] Roberto Dumont APRN, C.N.P. 08/29/2014 9:28 AM CDT - 08/29/2014 11:59 PM CDT Hospital Encounter [facility] Braulio Simmons M.D. 08/17/2014 12:20 PM CDT - 08/17/2014 11:59 PM CDT Hospital Encounter [facility] INTERNRoberto Barnes APRN, C.N.P. 08/17/2014 1:54 PM CDT - 08/17/2014 11:59 PM CDT Hospital Encounter [facility] Braulio Watson M.D. 08/15/2014 7:36 AM CDT - 08/15/2014 11:59 PM CDT Hospital Encounter [facility] Roberto Dumont APRN, C.N.P. 08/15/2014 7:35 AM CDT - 08/15/2014 11:59 PM CDT Hospital Encounter [facility] Roberto Dumont APRN, C.N.P. 08/15/2014 7:35 AM CDT - 08/15/2014 11:59 PM CDT Hospital Encounter [facility] Braulio Simmons M.D. 08/15/2014 9:06 AM CDT - 08/15/2014 11:59 PM CDT Hospital Encounter [facility] Braulio Simmons M.D. 08/15/2014 7:51 AM CDT - 08/15/2014 11:59 PM CDT Hospital Encounter [facility] Tariq Estrella M.D. 08/08/2014 12:11 PM CDT - 08/08/2014 11:59 PM CDT Hospital Encounter [facility] Tariq Estrella M.D. 08/03/2014 9:12 AM CDT - 08/03/2014 11:59 PM CDT Hospital Encounter [facility] Braulio Simmons M.D. 08/02/2014 11:20 AM CDT - 08/02/2014 11:59 PM CDT Hospital Encounter [facility] INTERNMED Braulio Simmons M.D. 08/01/2014 5:33 PM CDT - 08/01/2014 11:59 PM CDT Hospital Encounter HX NO MAPPING Beronica Rubin, P.AHowie 08/01/2014 3:29 PM CDT - 08/01/2014 11:59 PM CDT Hospital Encounter [facility] Bayron Fernandez M.D. 07/20/2014 1:11 PM CDT - 07/20/2014 11:59 PM CDT Hospital Encounter [facility] Dutch Kay M.D. 10/25/2006 Hospital Encounter [facility]X [facility] Sher Hodges M.D. Allergies Active Allergy Reactions Criticality Noted Date Comments Codeine Hives (Reselect Reaction) 07/20/2014 [place] Shortness of breath (Reselect Reaction) 12/09/2021 [place] Medications Medication Sig Dispensed Refills Start Date End Date Status CYANOCOBALAMIN, VITAMIN B-12, ORAL Vitamin B-12 08/14/2015 Acti ve CHOLECALCIFEROL, VITAMIN D3, ORAL Take 1 capsule by mouth daily. 08/14/2015 Active cyclobenzaprine (FLEXERIL) 5 mg tablet Take 1 tablet (5 mg total) by mouth at bedtime as needed for muscle spasms. 30 tablet 06/26/2021 Active atxrjmr-llqx-lnlme -oreg-capryl 100 mg-150 mg- 50 mg-150 mg capsule Take by mouth 3 (three) times a day. Active ibuprofen (ADVIL,MOTRIN) 200 mg tablet Take by mouth every 6 (six) hours as needed. 08/18/2022 Active cranberry conc/C/Bacill coag (CRANBERRY URINARY TRACT HEALTH ORAL) Take 1 tablet by mouth daily. Active atorvastatin (LIPITOR) 10 mg tablet take 1 tablet every day 90 tablet 3 04/21/2023 Active lisinopriL (PRINIVIL,ZESTRIL) 40 mg tablet take 1 tablet every day 90 tablet 3 04/21/2023 Active furosemide (LASIX) 20 mg tablet TAKE 1 TABLET (20 MG TOTAL) BY MOUTH DAILY. 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 120 tablet 3 08/24/2023 Active Active Problems Problem Noted Date Diagnosed Date Atrial Fibrillation Paroxysmal 01/06/2022 Monitoring For Therapeutic Drug Therapy 01/07/20 Jail (Current) Anticoagulant Treatment 03/2021 Radiculopathy Lumbar Fifth Left 11/06/2021 Radiculopathy Sacral 11/06/2021 Hyperlipidemia On Treatment 07/02/2017 Hypertensive Heart And Chron ic Kidney Disease With Heart Failure And Stage 1 To 4 Chronic Kidney Disease Or Unspecified Chronic Kidney Disease 07/01/2016 Cardiomyopathy Dilated 08/02/2014 Immunizations Name Administration Dates Next Due Influenza high dose QV(65 years or older) (PF) 1 ,12/23/2020 Influenza, Unspecified 12/14/2014,01/20/2007 PCV13 08/17/2014 PPSV23 02/13/2015 Tdap 08/17/2014 Family History Medical History Relation Name Comments Migraines Daughter 1 genesis alberto Migraines Daughter 2 Bre Coronary artery disease Mother abiel mortensenhl Diabetes Mother abiel mortensenhl Hypertension Mother abiel mortensenhl Hypothyroidism Mother abiel dahl Obesity Mother abiel mortensenhl Dementia Paternal Grandmother trina mortensennataly Obesity Paternal Grandmother trina mortensennataly Asthma Son 1 janell alberto not sure Migraines Son 2 [place] Migraines Son 3 genesis Relation Name Status Comments Daughter 1 genesis alberto Daughter 2 Bre Mother abiel ramos Paternal Grandmother trina ramos Son 1 janell laberto Son 2 [place] Son 3 genesis Social History Smoking Status as of 12/06/2023 Tobacco Use Types Packs/Day Years Used Date Smoking Tobacco: Never Assessed [facility] Utilities Answer Date Recorded In the past 12 months has e [employer], oil, or water [employer] threatened to shut off services in your home? No 07/01/2023 Humiliation, Afraid, Rape, and Kick questionnair e Answer Date Recorded Within the last year, have y ou been afraid of your partner or ex-partner? No 05/30/2022 Within the last year, have y ou been humiliated or emotionally abused in other ways by your partner or ex-partner? No Within the last year, have y ou been kicked, hit, slapped, or otherwise physically hurt by your partner or ex-partner? No 05/30/2022 Within the last year, have y ou been raped or forced to have any kind of sexual activity by your partner or ex-partner? No 05/30/2022 Social Connection and Isolat ion Panel [NHANES] Answer Date Recorded In a typical week, how many times do you talk on the phone with family, friends, or neighbors? More than three times a week 05/30/2022 How often do you get togethe r with friends or relatives? Three times a week 05/30/2022 How often do you attend chur ch or scientology services? More than 4 times per year 05/30/2022 Do you belong to any clubs o r organizations such as adventism groups, unions, fraternal or athletic groups, or school groups? Yes 05/30/2022 How often do you attend meet ings of the clubs or organizations you belong to? 1 to 4 times per year 05/30/2022 Are you , , di vorced, , never , or living with a partner? 05/30/2022 AUDIT-C Answer Date Recorded Q1: How often do you have a drink containing alc ohol? Never 05/30/2022 Average Number of Drinks Not on file 023 Frequency of Binge Drinking Not on file 05/07 Overall Financial Resource Strain (CARDIA) Answe r Date Recorded How hard is it for you to pa y for the very basics like food, housing, medical care, and heating? Somewhat hard 05/30/2022 PHQ-2 Answer Date Recorded PHQ-2 Score 0 04/27/2023 [facility] - Occupational Stress Questionnaire Answer Date Recorded Do you feel stress - tense, restless, nervous, or anxious, or unable to sleep at night because your mind is troubled all the time - these days? To some extent 05/30/2022 Exercise Vital Sign Answer Date Recorde d On average, how many days pe r week do you engage in moderate to strenuous exercise (like a brisk walk)? 5 days 07/01/2023 On average, how many minutes do you engage in exercise at this level? 40 min 07/01/2023 Hunger Vital Sign Answer Date Recorded Within the past 12 months, y ou worried that your food would run out before you got the money to buy more. Never true 07/01/19 24 Within the past 12 months, t he food you bought just didn't last and you didn't have money to get more. Never true 07/01/2023 PRAPARE - Transportation Answer Date Re corded In the past 12 months, has l ack of transportation kept you from medical appointments or from getting medications? No 06/07 In the past 12 months, has l ack of transportation kept you from meetings, work, or from getting things needed for daily living? No 07/01/2023 Depression Answer Date Recor ded PHQ-9 Total Score (max 27) 9 02/22 Nutrition Answer Date Recorded On average, how many serving s of fruits and vegetables do you eat per day (serving size is equal to 1 cup or approximately the size of a tennis ball)? 0-2 07/01/2023 Dental Answer Date Recorded Dental: Regular Dentist No 11/07/19 Employment Answer Date Recorded Employment status Employed and actively working without restrictions 07/01/2023 Housing Stability Answer Date Recorded What is your living situation today? I have a [facility] place to live 07/01/2023 Education Answer Date Recorded What is the highest level of school you have completed or the highest degree you have received? Associate degree: occupational, technical, or vocational program 05/30/2022 Sex and Gender Information Value Date Recorded Sex Assigned at Female 12/19/2021 3:32 AM CDT Gender Identity Female 09/24/2022 9:59 PM CDT Sexual Orientation Straight 12/19/2021 3: 32 AM CDT Last Filed Vital Signs Vital Sign Reading Time Taken Comments Blood Pressure 170/84 07/02/2023 10:29 AM CDT Pulse 49 07/02/2023 10:29 AM CDT Temperature 36.8 ??C (98.2 ??F) 06/22/2023 1:06 PM CD T Respiratory Rate 16 11/06/2021 1:16 PM CDT Oxygen Saturation 98% 12/30/2021 1:38 PM CDT Inhaled Oxygen Concentration - - Weight 87.2 kg (192 lb 3.9 oz) 06/22/2023 1:06 P M CDT Height 163 cm (5' 4.17) 04/27/2023 11:14 AM OPTIMIZATION ANALYST Body Mass Index 32.82 04/27/2023 11:14 AM OPTIMIZATION ANALYST Plan of Treatment Upcoming Encounters Date Type Department Care Team (Latest Contact Info) Description 12/13/2023 11:50 AM CDT Appointment Department of Laboratory Medicine in [place], [place] [address] [place] [phone] Patrick Erickson D.O. [address] [phone] 12/13/2023 12:30 PM CDT Anticoagulation Visit Department of Anticoagulation in [place], [place] [address] [place] [address] Soheila Zapata P.A.-C., M.S. [address] [address] 12/24/2023 10:10 AM CDT Appointment Department of Laboratory Medicine in [place], [place] [address] [place] [phone] Patrick Erickson D.O. [address] [phone] 12/28/2023 1:00 PM CDT Office Visit Department of Internal Medicine in [place], [place] [address] [phone] Patrick Erickson D.O. [address] [address] Procedures Procedure Name Priority Date/Time Associated Diagnosis Comments PROTHROMBIN TIME (PT), P Routine 12/03/2023 3:01 PM CDT INR REFLEX, POCT, B Routine 12/03/2023 2:57 PM CDT 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 Or Unspecified Chronic Kidney Disease (HCC) Hyperlipidemia On Treatment Atrial Fibrillation Paroxysmal (HCC) Monitoring For Therapeutic Drug Therapy Experimental Plastics Fabricator (Current) Anticoagulant Treatment EXTM HOME SARS CORONAVIRUS-2 (COVID-19) ANTIGEN, V Routine 11/26/2023 6:00 PM CDT INR REFLEX, POCT, B Routine 11/22/2023 3:52 PM CDT 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 Or Unspecified Chronic Kidney Disease (HCC) Hyperlipidemia On Treatment Atrial Fibrillation Paroxysmal (HCC) Monitoring For Therapeutic Drug Therapy Jail (Current) Anticoagulant Treatment INR REFLEX, POCT, B Routine 11/12/2023 12:09 PM CDT Atrial Fibrillation Paroxysmal (HCC) Monitoring For Therapeutic Drug Therapy Jail (Current) Anticoagulant Treatment INR REFLEX, POCT, B Routine 11/02/2023 2:58 PM CDT 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 Or Unspecified Chronic Kidney Disease (HCC) Hyperlipidemia On Treatment Atrial Fibrillation Paroxysmal (HCC) Monitoring For Therapeutic Drug Therapy Jail (Current) Anticoagulant Treatment INR REFLEX, POCT, B Routine 10/28/2023 3:00 PM CDT 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 Or Unspecified Chronic Kidney Disease (HCC) Hyperlipidemia On Treatment Atrial Fibrillation Paroxysmal (HCC) Monitoring For Therapeutic Drug Therapy Experimental Plastics Fabricator (Current) Anticoagulant Treatment INR REFLEX, POCT, B Routine 10/15/2023 3:09 PM CDT 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 Or Unspecified Chronic Kidney Disease (HCC) Hyperlipidemia On Treatment Atrial Fibrillation Paroxysmal (HCC) Monitoring For Therapeutic Drug Therapy Experimental Plastics Fabricator (Current) Anticoagulant Treatment INR REFLEX, POCT, B Routine 10/07/2023 2:55 PM CDT Atrial Fibrillation Paroxysmal (HCC) INR REFLEX, POCT, B Routine 10/01/2023 3:00 PM CDT 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 Glomerular Filtration Rate (GFR) 45 To 59 (HCC) Hyperlipidemia On Treatment Atrial Fibrillation Paroxysmal (HCC) Monitoring For Therapeutic Drug Therapy Experimental Plastics Fabricator (Current) Anticoagulant Treatment INR REFLEX, POCT, B Routine 09/24/2023 3:14 PM CDT 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 Glomerular Filtration Rate (GFR) 45 To 59 (HCC) Hyperlipidemia On Treatment Atrial Fibrillation Paroxysmal (HCC) Monitoring For Therapeutic Drug Therapy Experimental Plastics Fabricator (Current) Anticoagulant Treatment PROTHROMBIN TIME (PT), P Routine 09/21/2023 12:41 PM CDT INR REFLEX, POCT, B Routine 09/21/2023 12:39 PM CDT 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 Glomerular Filtration Rate (GFR) 45 To 59 (HCC) Hyperlipidemia On Treatment Atrial Fibrillation Paroxysmal (HCC) Monitoring For Therapeutic Drug Therapy Jail (Current) Anticoagulant Treatment INR REFLEX, POCT, B Routine 09/14/2023 1:00 PM CDT 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 Glomerular Filtration Rate (GFR) 45 To 59 (HCC) Hyperlipidemia On Treatment Atrial Fibrillation Paroxysmal (HCC) Monitoring For Therapeutic Drug Therapy Jail (Current) Anticoagulant Treatment INR REFLEX, POCT, B Routine 09/08/2023 3:39 PM CDT 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 Glomerular Filtration Rate (GFR) 45 To 59 (HCC) Hyperlipidemia On Treatment Atrial Fibrillation Paroxysmal (HCC) Monitoring For Therapeutic Drug Therapy Jail (Current) Anticoagulant Treatment INR REFLEX, POCT, B Routine 09/02/2023 3:09 PM CDT 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 Glomerular Filtration Rate (GFR) 45 To 59 (HCC) Hyperlipidemia On Treatment Atrial Fibrillation Paroxysmal (HCC) Monitoring For Therapeutic Drug Therapy Experimental Plastics Fabricator (Current) Anticoagulant Treatment INR REFLEX, POCT, B Routine 08/27/2023 2:01 PM CDT 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 Glomerular Filtration Rate (GFR) 45 To 59 (HCC) Hyperlipidemia On Treatment Atrial Fibrillation Paroxysmal (HCC) Monitoring For Therapeutic Drug Therapy Jail (Current) Anticoagulant Treatment INR REFLEX, POCT, B Routine 08/24/2023 9:50 AM CDT 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 Glomerular Filtration Rate (GFR) 45 To 59 (HCC) Hyperlipidemia On Treatment Atrial Fibrillation Paroxysmal (HCC) Monitoring For Therapeutic Drug Therapy Jail (Current) Anticoagulant Treatment INR REFLEX, POCT, B Routine 08/16/2023 1:35 PM CDT 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 Glomerular Filtration Rate (GFR) 45 To 59 (HCC) Hyperlipidemia On Treatment Atrial Fibrillation Paroxysmal (HCC) Monitoring For Therapeutic Drug Therapy Experimental Plastics Fabricator (Current) Anticoagulant Treatment INR REFLEX, POCT, B Routine 08/05/2023 2:44 PM CDT 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 Glomerular Filtration Rate (GFR) 45 To 59 (HCC) Hyperlipidemia On Treatment Atrial Fibrillation Paroxysmal (HCC) Monitoring For Therapeutic Drug Therapy Experimental Plastics Fabricator (Current) Anticoagulant Treatment INR REFLEX, POCT, B Routine 07/06/2023 8:46 AM CDT Atrial Fibrillation Paroxysmal (HCC) 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 Glomerular Filtration Rate (GFR) 45 To 59 (HCC) Hyperlipidemia On Treatment Monitoring For Therapeutic Drug Therapy Jail (Current) Anticoagulant Treatment LIPID PANEL, S Routine 07/06/2023 8:46 AM CDT Hyperlipidemia On Treatment CBC WITH DIFFERENTIAL, B Routine 07/06/2023 8:46 AM CDT Atrial Fibrillation Paroxysmal (HCC) 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 Glomerular Filtration Rate (GFR) 45 To 59 (HCC) GLUCOSE, FASTING, S/P Routine 07/06/2023 8:46 AM CDT Screening Examination Diabetes Mellitus BASIC METABOLIC PANEL, S/P Routine 07/06/2023 8:46 AM CDT Atrial Fibrillation Paroxysmal (HCC) 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 Glomerular Filtration Rate (GFR) 45 To 59 (HCC) ECG Routine 06/22/2023 10:27 AM CDT Atrial Fibrillation Unspecified (HCC) INR REFLEX, POCT, B Routine 06/22/2023 10:23 AM CDT 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 Glomerular Filtration Rate (GFR) 45 To 59 (HCC) Hyperlipidemia On Treatment Atrial Fibrillation Paroxysmal (HCC) Monitoring For Therapeutic Drug Therapy [employer] (Current) Anticoagulant Treatment INR REFLEX, POCT, B Routine 06/03/2023 1:26 PM CDT 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 Glomerular Filtration Rate (GFR) 45 To 59 (HCC) Hyperlipidemia On Treatment Atrial Fibrillation Paroxysmal (HCC) Monitoring For Therapeutic Drug Therapy Jail (Current) Anticoagulant Treatment INR REFLEX, POCT, B Routine 05/27/2023 10:49 AM CDT 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 Glomerular Filtration Rate (GFR) 45 To 59 (HCC) Hyperlipidemia On Treatment Atrial Fibrillation Paroxysmal (HCC) Monitoring For Therapeutic Drug Therapy Jail (Current) Anticoagulant Treatment INR REFLEX, POCT, B Routine 05/21/2023 2:55 PM CDT Atrial Fibrillation Paroxysmal (HCC) INR REFLEX, POCT, B Routine 05/07/2023 1:04 PM OPTIMIZATION ANALYST 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 Glomerular Filtration Rate (GFR) 45 To 59 (HCC) Hyperlipidemia On Treatment Atrial Fibrillation Paroxysmal (HCC) Monitoring For Therapeutic Drug Therapy [employer] (Current) Anticoagulant Treatment INR REFLEX, POCT, B Routine 04/30/2023 12:42 PM OPTIMIZATION ANALYST 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 Glomerular Filtration Rate (GFR) 45 To 59 (HCC) Hyperlipidemia On Treatment Atrial Fibrillation Paroxysmal (HCC) Monitoring For Therapeutic Drug Therapy Jail (Current) Anticoagulant Treatment INR REFLEX, POCT, B Routine 04/02/2023 2:53 PM OPTIMIZATION ANALYST 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 Glomerular Filtration Rate (GFR) 45 To 59 (HCC) Hyperlipidemia On Treatment Atrial Fibrillation Paroxysmal (HCC) Monitoring For Therapeutic Drug Therapy Jail (Current) Anticoagulant Treatment INR REFLEX, POCT, B Routine 03/19/2023 3:19 PM OPTIMIZATION ANALYST 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 Glomerular Filtration Rate (GFR) 45 To 59 (HCC) Monitoring For Therapeutic Drug Therapy Atrial Fibrillation Paroxysmal (HCC) INR REFLEX, POCT, B Routine 03/12/2023 3:11 PM OPTIMIZATION ANALYST Atrial Fibrillation Paroxysmal (HCC) Monitoring For Therapeutic Drug Therapy [employer] (Current) Anticoagulant Treatment INR REFLEX, POCT, B Routine 03/09/2023 2:21 PM OPTIMIZATION ANALYST Atrial Fibrillation Paroxysmal (HCC) Monitoring For Therapeutic Drug Therapy [employer] (Current) Anticoagulant Treatment INR REFLEX, POCT, B Routine 03/05/2023 4:19 PM OPTIMIZATION ANALYST Atrial Fibrillation Paroxysmal (HCC) Monitoring For Therapeutic Drug Therapy [employer] (Current) Anticoagulant Treatment INR REFLEX, POCT, B Routine 02/24/2023 5:02 PM OPTIMIZATION ANALYST Atrial Fibrillation Paroxysmal (HCC) Monitoring For Therapeutic Drug Therapy Jail (Current) Anticoagulant Treatment EXTM HOME SARS CORONAVIRUS-2 (COVID-19) ANTIGEN, V Routine 02/24/2023 12:58 PM OPTIMIZATION ANALYST INR REFLEX, POCT, B Routine 02/16/2023 10:12 AM OPTIMIZATION ANALYST Atrial Fibrillation Paroxysmal (HCC) Monitoring For Therapeutic Drug Therapy [employer] (Current) Anticoagulant Treatment INR REFLEX, POCT, B Routine 02/02/2023 12:08 PM OPTIMIZATION ANALYST Atrial Fibrillation Paroxysmal (HCC) Monitoring For Therapeutic Drug Therapy Jail (Current) Anticoagulant Treatment INR REFLEX, POCT, B Routine 01/26/2023 9:30 AM OPTIMIZATION ANALYST Atrial Fibrillation Paroxysmal (HCC) Monitoring For Therapeutic Drug Therapy [employer] (Current) Anticoagulant Treatment INR REFLEX, POCT, B Routine 12/15/2022 11:37 AM CDT Atrial Fibrillation Paroxysmal (HCC) Monitoring For Therapeutic Drug Therapy Jail (Current) Anticoagulant Treatment INR REFLEX, POCT, B Routine 11/17/2022 2:18 PM CDT Atrial Fibrillation Paroxysmal (HCC) Monitoring For Therapeutic Drug Therapy [employer] (Current) Anticoagulant Treatment INR REFLEX, POCT, B Routine 11/10/2022 12:18 PM CDT Atrial Fibrillation Paroxysmal (HCC) Monitoring For Therapeutic Drug Therapy [employer] (Current) Anticoagulant Treatment INR REFLEX, POCT, B Routine 11/04/2022 2:23 PM CDT Atrial Fibrillation Paroxysmal (HCC) Monitoring For Therapeutic Drug Therapy [employer] (Current) Anticoagulant Treatment INR REFLEX, POCT, B Routine 10/27/2022 11:50 AM CDT Atrial Fibrillation Paroxysmal (HCC) Monitoring For Therapeutic Drug Therapy Jail (Current) Anticoagulant Treatment BASIC METABOLIC PANEL, S/P Routine 10/12/2022 10:09 AM CDT 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 Glomerular Filtration Rate (GFR) 45 To 59 ([facility] INR REFLEX, POCT, B Routine 10/12/2022 10:02 AM CDT Atrial Fibrillation Paroxysmal (HCC) Monitoring For Therapeutic Drug Therapy [employer] (Current) Anticoagulant Treatment DE URINALYSIS AUTO W MICRO Routine 10/12/2022 10:02 AM CDT URINALYSIS WITH MICROSCOPIC IF INDICATED, U Routine 10/12/2022 10:02 AM CDT 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 Glomerular Filtration Rate (GFR) 45 To 59 (HCC) ALBUMIN, RANDOM, U Routine 10/12/2022 10:02 AM CDT 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 Glomerular Filtration Rate (GFR) 45 To 59 (HCC) INR REFLEX, POCT, B Routine 10/01/2022 9:26 AM CDT Atrial Fibrillation Paroxysmal (HCC) Monitoring For Therapeutic Drug Therapy Jail (Current) Anticoagulant Treatment INR REFLEX, POCT, B Routine 09/17/2022 11:22 AM CDT Atrial Fibrillation Paroxysmal (HCC) Monitoring For Therapeutic Drug Therapy BASIC METABOLIC PANEL, S/P Routine 09/17/2022 11:22 AM CDT Monitoring For Therapeutic Drug Therapy INR REFLEX, POCT, B Routine 09/03/2022 10:43 AM CDT Atrial Fibrillation Unspecified (HCC) Monitoring For Therapeutic Drug Therapy [employer] (Current) Anticoagulant Treatment INR REFLEX, POCT, B Routine 08/10/2022 11:16 AM CDT Atrial Fibrillation Unspecified (HCC) Monitoring For Therapeutic Drug Therapy [employer] (Current) Anticoagulant Treatment INR REFLEX, POCT, B Routine 08/10/2022 11:15 AM CDT INR REFLEX, POCT, B Routine 07/27/2022 3:15 PM CDT Atrial Fibrillation Unspecified (HCC) Monitoring For Therapeutic Drug Therapy [employer] (Current) Anticoagulant Treatment INR REFLEX, POCT, B Routine 07/27/2022 3:14 PM CDT INR REFLEX, POCT, B Routine 06/29/2022 10:21 AM CDT INR REFLEX, POCT, B Routine 06/29/2022 10:21 AM CDT Atrial Fibrillation Unspecified Monitoring For Therapeutic Drug Therapy [employer] (Current) Anticoagulant Treatment INR REFLEX, POCT, B Routine 06/19/2022 10:34 AM CDT Atrial Fibrillation Unspecified Monitoring For Therapeutic Drug Therapy Jail (Current) Anticoagulant Treatment INR REFLEX, POCT, B Routine 06/19/2022 10:32 AM CDT PROTHROMBIN TIME (PT), P Routine 06/15/2022 10:13 AM CDT INR REFLEX, POCT, B Routine 06/15/2022 10:09 AM CDT INR REFLEX, POCT, B Routine 06/15/2022 10:09 AM CDT Atrial Fibrillation Unspecified Monitoring For Therapeutic Drug Therapy Jail (Current) Anticoagulant Treatment INR REFLEX, POCT, B Routine 06/09/2022 10:16 AM CDT Atrial Fibrillation Unspecified Monitoring For Therapeutic Drug Therapy [employer] (Current) Anticoagulant Treatment PROTHROMBIN TIME (PT), P Routine 06/09/2022 10:16 AM CDT INR REFLEX, POCT, B Routine 06/09/2022 10:09 AM CDT (TTE) 2D ECHO DOPPLER COLOR Routine 06/01/2022 8:09 AM CDT Cardiomyopathy Dilated (HCC) INR REFLEX, POCT, B Routine 05/12/2022 10:01 AM OPTIMIZATION ANALYST Atrial Fibrillation Unspecified Monitoring For Therapeutic Drug Therapy Jail (Current) Anticoagulant Treatment INR REFLEX, POCT, B Routine 05/12/2022 10:00 AM OPTIMIZATION ANALYST INR REFLEX, POCT, B Routine 04/28/2022 2:50 PM OPTIMIZATION ANALYST INR REFLEX, POCT, B Routine 04/28/2022 2:50 PM OPTIMIZATION ANALYST Atrial Fibrillation Unspecified Monitoring For Therapeutic Drug Therapy [employer] (Current) Anticoagulant Treatment INR REFLEX, POCT, B Routine 04/21/2022 10:55 AM OPTIMIZATION ANALYST Atrial Fibrillation Unspecified Monitoring For Therapeutic Drug Therapy Jail (Current) Anticoagulant Treatment INR REFLEX, POCT, B Routine 04/21/2022 10:54 AM OPTIMIZATION ANALYST HOLTER MONITOR - IN CLINIC FLEET OPERATIONS MANAGER Routine 04/08/2022 2:11 AM OPTIMIZATION ANALYST Atrial Fibrillation Other Persistent (HCC) INR REFLEX, POCT, B Routine 04/07/2022 10:32 AM OPTIMIZATION ANALYST Atrial Fibrillation Unspecified Monitoring For Therapeutic Drug Therapy [employer] (Current) Anticoagulant Treatment INR REFLEX, POCT, B Routine 04/07/2022 10:31 AM OPTIMIZATION ANALYST INR REFLEX, POCT, B Routine 03/31/2022 12:03 PM OPTIMIZATION ANALYST Atrial Fibrillation Unspecified Monitoring For Therapeutic Drug Therapy [employer] (Current) Anticoagulant Treatment INR REFLEX, POCT, B Routine 03/31/2022 12:02 PM OPTIMIZATION ANALYST PROTHROMBIN TIME (PT), P Routine 03/24/2022 1:08 PM OPTIMIZATION ANALYST INR REFLEX, POCT, B Routine 03/24/2022 1:06 PM OPTIMIZATION ANALYST Atrial Fibrillation Unspecified Monitoring For Therapeutic Drug Therapy [employer] (Current) Anticoagulant Treatment INR REFLEX, POCT, B Routine 03/24/2022 1:05 PM OPTIMIZATION ANALYST INR REFLEX, POCT, B Routine 03/16/2022 10:08 AM OPTIMIZATION ANALYST INR REFLEX, POCT, B Routine 03/16/2022 10:08 AM OPTIMIZATION ANALYST Atrial Fibrillation Unspecified Monitoring For Therapeutic Drug Therapy Jail (Current) Anticoagulant Treatment INR REFLEX, POCT, B Routine 03/06/2022 11:06 AM OPTIMIZATION ANALYST Atrial Fibrillation Unspecified Monitoring For Therapeutic Drug Therapy [employer] (Current) Anticoagulant Treatment INR REFLEX, POCT, B Routine 03/06/2022 11:05 AM OPTIMIZATION ANALYST INR REFLEX, POCT, B Routine 02/20/2022 11:30 AM OPTIMIZATION ANALYST Atrial Fibrillation Unspecified Monitoring For Therapeutic Drug Therapy Jail (Current) Anticoagulant Treatment INR REFLEX, POCT, B Routine 02/20/2022 11:29 AM OPTIMIZATION ANALYST INR REFLEX, POCT, B Routine 02/13/2022 11:36 AM OPTIMIZATION ANALYST Atrial Fibrillation Unspecified Monitoring For Therapeutic Drug Therapy [employer] (Current) Anticoagulant Treatment INR REFLEX, POCT, B Routine 02/13/2022 11:35 AM OPTIMIZATION ANALYST INR REFLEX, POCT, B Routine 02/06/2022 2:50 PM OPTIMIZATION ANALYST INR REFLEX, POCT, B Routine 02/06/2022 2:50 PM OPTIMIZATION ANALYST Atrial Fibrillation Unspecified Monitoring For Therapeutic Drug Therapy [employer] (Current) Anticoagulant Treatment INR REFLEX, POCT, B Routine 02/02/2022 12:15 PM OPTIMIZATION ANALYST INR REFLEX, POCT, B Routine 02/02/2022 12:15 PM OPTIMIZATION ANALYST Atrial Fibrillation Unspecified Monitoring For Therapeutic Drug Therapy [employer] (Current) Anticoagulant Treatment INR REFLEX, POCT, B Routine 01/23/2022 3:58 PM OPTIMIZATION ANALYST Atrial Fibrillation Unspecified Monitoring For Therapeutic Drug Therapy [employer] (Current) Anticoagulant Treatment INR REFLEX, POCT, B Routine 01/23/2022 3:57 PM OPTIMIZATION ANALYST INR REFLEX, POCT, B Routine 01/15/2022 11:43 AM OPTIMIZATION ANALYST Atrial Fibrillation Unspecified Monitoring For Therapeutic Drug Therapy Jail (Current) Anticoagulant Treatment INR REFLEX, POCT, B Routine 01/15/2022 11:42 AM OPTIMIZATION ANALYST INR REFLEX, POCT, B Routine 01/12/2022 2:19 PM OPTIMIZATION ANALYST INR REFLEX, POCT, B Routine 01/12/2022 2:19 PM OPTIMIZATION ANALYST Atrial Fibrillation Unspecified Monitoring For Therapeutic Drug Therapy [employer] (Current) Anticoagulant Treatment ECG Routine 12/30/2021 2:24 PM CDT Cardiomyopathy Dilated (HCC) Irregular Pulse FL LUMBAR SPINE TRANSFORAMINAL EPIDURAL INJECTION LEFT RAD - Routine (most inpatients and all outpatients) 12/25/2021 3:40 PM CDT Lumbago With Sciatica Left Side Spondylolysis Lumbar Region BI BREAST SCREENING BILATERAL WITH TOMOSYNTHESIS RAD - Routine (most inpatients and all outpatients) 12/09/2021 3:16 PM CDT Maintenance Health Adult HEMOGLOBIN A1C, B Routine 11/06/2021 2:48 PM CDT Screening Examination Diabetes Mellitus THYROID-STIMULATING HORMONE-SENSITIVE (S-TSH) Routine 11/06/2021 2:48 PM CDT Maintenance Health Adult LIPID PANEL, S Routine 11/06/2021 2:48 PM CDT Hyperlipidemia On Treatment POTASSIUM, S/P Routine 11/06/2021 2:48 PM CDT Hypertensive Chronic Kidney Disease (CKD) Stage 3a Glomerular Filtration Rate (GFR) 45 To 59 (HCC) CREATININE WITH EGFR, S/P Routine 11/06/2021 2:48 PM CDT Hypertensive Chronic Kidney Disease (CKD) Stage 3a Glomerular Filtration Rate (GFR) 45 To 59 (HCC) SODIUM, S/P Routine 11/06/2021 2:48 PM CDT Hypertensive Chronic Kidney Disease (CKD) Stage 3a Glomerular Filtration Rate (GFR) 45 To 59 (HCC) HOLTER MONITOR - IN CLINIC FLEET OPERATIONS MANAGER Routine 05/27/2020 3:59 PM CDT Cardiomyopathy Dilated (HCC) MR LUMBAR SPINE WITHOUT IV CONTRAST RAD - Routine (most inpatients and all outpatients) 05/17/2020 11:41 AM OPTIMIZATION ANALYST Pain Low Back LIPID PANEL, S Routine 05/17/2020 10:53 AM OPTIMIZATION ANALYST Cardiomyopathy Dilated (HCC) THYROID-STIMULATING HORMONE-SENSITIVE (S-TSH) Routine 05/17/2020 10:53 AM OPTIMIZATION ANALYST Cardiomyopathy Dilated (HCC) BASIC METABOLIC PANEL, S/P Routine 05/17/2020 10:53 AM OPTIMIZATION ANALYST Cardiomyopathy Dilated (HCC) CBC WITH DIFFERENTIAL, B Routine 05/17/2020 10:53 AM OPTIMIZATION ANALYST Cardiomyopathy Dilated (HCC) SARS CORONAVIRUS-2 RNA, V Routine 11/25/2019 1:05 PM CDT Infection Upper Respiratory SARS CORONAVIRUS-2 RNA, V Routine 09/28/2019 12:05 PM CDT Infection Upper Respiratory CREATININE WITH EGFR, S/P Routine 12/28/2017 12:20 PM CDT Cardiomyopathy Dilated (HCC) POTASSIUM, S/P Routine 12/28/2017 12:20 PM CDT Cardiomyopathy Dilated (HCC) SODIUM, S/P Routine 12/28/2017 12:20 PM CDT Cardiomyopathy Dilated (HCC) HEMOGLOBIN, B Routine 12/28/2017 12:20 PM CDT Cardiomyopathy Dilated (HCC) (TTE) 2D ECHO DOPPLER COLOR Routine 07/28/2017 9:22 AM CDT Cardiomyopathy Dilated (HCC) DX LUMBAR SPINE 2-3 VIEWS RAD - Routine (most inpatients and all outpatients) 07/19/2017 11:35 AM CDT Pain Low Back Acute ECG Routine 06/30/2017 8:21 AM CDT Failure Heart (HCC) BUN (BLOOD UREA NITROGEN), S/P Routine 06/30/2017 8:20 AM CDT Failure Heart (HCC) CREATININE WITH EGFR, S/P Routine 06/30/2017 8:20 AM CDT Failure Heart (HCC) CBC WITHOUT DIFFERENTIAL, B Routine 06/30/2017 8:20 AM CDT Failure Heart (HCC) LIPID PANEL, S Routine 06/30/2017 8:20 AM CDT Failure Heart (HCC) SODIUM, S/P Routine 06/30/2017 8:16 AM CDT Cardiomyopathy Dilated (HCC) POTASSIUM, S/P Routine 06/30/2017 8:16 AM CDT Cardiomyopathy Dilated (HCC) AUTOMATED DIFFERENTIAL, B Routine 08/17/2016 9:54 AM CDT CBC WITH DIFFERENTIAL, B Routine 08/17/2016 9:54 AM CDT ALANINE AMINOTRANSFERASE (ALT), S/P Routine 07/09/2016 10:59 AM CDT ASPARTATE AMINOTRANSFERASE (AST), S/P Routine 07/09/2016 10:59 AM CDT CBC WITHOUT DIFFERENTIAL, B Routine 07/01/2016 11:51 AM CDT CREATININE WITH EGFR, S/P Routine 07/01/2016 11:51 AM CDT BUN (BLOOD UREA NITROGEN), S/P Routine 07/01/2016 11:51 AM CDT LIPID PANEL, S Routine 07/01/2016 11:51 AM CDT ELECTROLYTE PANEL, S Routine 07/01/2016 11:51 AM CDT ECHOCARDIOLOGY IMAGE EXAM Routine 06/24/2016 9:21 AM CDT ECHO TRANSTHORACIC (TTE) Routine 06/24/2016 9:16 AM CDT HEMOGLOBIN A1C, B Routine 08/14/2015 10:00 AM CDT THYROID-STIMULATING HORMONE-SENSITIVE (S-TSH) Routine 08/12/2015 8:08 AM CDT BASIC METABOLIC PANEL, S/P Routine 08/12/2015 8:08 AM CDT ELECTROLYTE PANEL, S Routine 06/13/2015 8:54 AM CDT BUN (BLOOD UREA NITROGEN), S/P Routine 06/13/2015 8:54 AM CDT CREATININE WITH EGFR, S/P Routine 06/13/2015 8:54 AM CDT ECHOCARDIOLOGY IMAGE EXAM Routine 06/13/2015 8:07 AM CDT ECHO TRANSTHORACIC (TTE) Routine 06/13/2015 7:57 AM CDT ELECTROLYTE PANEL, S Routine 02/11/2015 9:35 AM OPTIMIZATION ANALYST BUN (BLOOD UREA NITROGEN), S/P Routine 02/11/2015 9:35 AM OPTIMIZATION ANALYST CREATININE WITH EGFR, S/P Routine 02/11/2015 9:35 AM OPTIMIZATION ANALYST NT-PRO B-TYPE NATRIURETIC PEPTIDE (BNP), S Routine 12/05/2014 9:18 AM CDT BUN (BLOOD UREA NITROGEN), S/P Routine 12/05/2014 9:18 AM CDT CREATININE WITH EGFR, S/P Routine 12/05/2014 9:18 AM CDT ELECTROLYTE PANEL, S Routine 12/05/2014 9:18 AM CDT ECHO TRANSTHORACIC (TTE) Routine 12/05/2014 8:09 AM CDT ECHOCARDIOLOGY IMAGE EXAM Routine 12/05/2014 8:07 AM CDT THYROID-STIMULATING HORMONE-SENSITIVE (S-TSH) Routine 09/21/2014 8:37 AM CDT POTASSIUM, S/P Routine 09/21/2014 8:36 AM CDT CREATININE WITH EGFR, S/P Routine 09/21/2014 8:36 AM CDT T3 (TRIIODOTHYRONINE), FREE, S Routine 08/29/2014 9:34 AM CDT T4 (THYROXINE), FREE, S Routine 08/29/2014 9:34 AM CDT THYROID-STIMULATING HORMONE-SENSITIVE (S-TSH) Routine 08/29/2014 9:34 AM CDT HEMOGLOBIN A1C, B Routine 08/29/2014 9:34 AM CDT POTASSIUM, S/P Routine 08/29/2014 9:34 AM CDT CREATININE WITH EGFR, S/P Routine 08/29/2014 9:34 AM CDT FERRITIN, S Routine 08/15/2014 7:52 AM CDT LIPID PANEL, S Routine 08/15/2014 7:51 AM CDT THYROID-STIMULATING HORMONE-SENSITIVE (S-TSH) Routine 08/15/2014 7:51 AM CDT BASIC METABOLIC PANEL, S/P Routine 08/15/2014 7:51 AM CDT NT-PRO B-TYPE NATRIURETIC PEPTIDE (BNP), S Routine 08/15/2014 7:51 AM CDT ECHO TRANSTHORACIC (TTE) Routine 08/03/2014 9:15 AM CDT ECHOCARDIOLOGY IMAGE EXAM Routine 08/03/2014 9:14 AM CDT DX CHEST AP OR PA AND LATERAL 2 VIEWS Routine 08/01/2014 4:28 PM CDT AUTOMATED DIFFERENTIAL, B Routine 08/01/2014 4:09 PM CDT CBC WITH DIFFERENTIAL, B Routine 08/01/2014 4:09 PM CDT D-DIMER, P Routine 08/01/2014 4:09 PM CDT TROPONIN I, S Routine 08/01/2014 4:09 PM CDT Results * (ABNORMAL) Prothrombin Time (PT) (12/03/2023 3:01 PM CDT) Only the most recent of5 resultswithin the time period is included. Prothrombin Time, P 60.6(H) 9.4 - 12.5 sec 12/03/2023 6:26 PM CDT OWAT INR 5.1(CH) 0.9 - 1.1 12/03/2023 6:26 PM CDT OWAT Comment: ----ADDITIONAL INFORMATION---- Standard intensity warfarin therapeutic range: 2.0 to 3.0 ?? High intensity warfarin therapeutic range: 2.5 to 3.5 Blood 12/03/2023 3:01 PM CDT 12/03/2023 5:54 PM CDT Patrick Erickson D.O. LAB BLOOD ADD-ON [facility] [address] [place] [address], [place] OWAT [facility] in [place] [address] [place] [address] * (ABNORMAL) INR Reflex, POCT, Blood (12/03/2023 2:57 PM CDT) Only the most recent of84 resultswithin the time period is included. INR Reflex, POCT, B 5.3(CH) 12/03/2023 2:56 PM CDT FB60 Comment: ----ADDITIONAL INFORMATION---- Standard intensity warfarin therapeutic range: 2.0 to 3.0 ?? High intensity warfarin therapeutic range: 2.5 to 3.5 Blood (Blood, Capillary) 12/03/2023 2:57 PM CDT 12/03/2023 2:56 PM CDT Patrick Erickson D.O. LAB POCT ORDERABLE S - DEVICE Performing Organization Address City/[facility] Co de Phone Number [facility] [address] [place] [address], [facility] FB60 [facility] in [address] [address] * (ABNORMAL) EXT Home SARS Coronavirus-2 (COVID-19) Antigen (11/26/2023 6:00 PM CDT) Only the most recent of2 resultswithin the time period is included. Pathologist [facility] EXT Home SARS-CoV-2 Antigen Presumptive Positive(A) Presumptive Negative OTHER (SPECIFY IN CORROSION CONTROL TECHNICIAN) Swab 11/26/2023 6:00 PM CDT Historical Provider LAB MICROBIOLOGY - G ENERAL ORDERABLES OTHER (SPECIFY IN CORROSION CONTROL TECHNICIAN) N/A * Lipid Panel (07/06/2023 8:46 AM CDT) Only the most recent of6 resultswithin the time period is included. Triglycerides 71 mg/dL 07/06/2023 2:03 PM CDT OWAT Comment: ----REFERENCE VALUE---- Normal: <150 mg/dL Borderline High: 150-199 mg/dL High: 200-499 mg/dL Very High: > or =500 mg/dL Cholesterol, Total 126 mg/dL 2023 2:03 PM CDT OWAT Comment: ----REFERENCE VALUE---- Desirable: < 200 mg/dL Borderline High: 200 - 239 mg/dL High: > or = 240 mg/dL Cholesterol, LDL, Calculated 59 mg/dL 07/06/2023 2:03 PM CDT OWAT Comment: ----REFERENCE VALUE---- Desirable: <100 mg/dL Above Desirable: 100-129 mg/dL Borderline High: 130-159 mg/dL High: 160-189 mg/dL Very High: >=190 mg/dL ----ADDITIONAL INFORMATION---- LDL cholesterol calculated using the Moore/NIH equation. Cholesterol, HDL 52 >=50 mg/dL 07/06/19 2:03 PM CDT OWAT Cholesterol, Non-HDL, Calculated 74 mg/dL 07/06/2023 2:03 PM CDT OWAT Comment: ----REFERENCE VALUE---- Desirable: <130 mg/dL Above Desirable: 130-159 mg/dL Borderline High: 160-189 mg/dL High: 190-219 mg/dL Very High: > or =220 mg/dL Fasting (8 HR or more) Yes 07/06/2023 1:08 PM CDT OWAT Blood (Blood, Venous) 07/06/2023 8:46 AM CDT 07/06/2023 1:08 PM CDT Patrick Erickson D.O. LAB BLOOD ADD-ON [facility] [address] [place] [address], [facility] OWAT [facility] in [place] [address] [place] [address] * (ABNORMAL) CBC with Differential, Blood (07/06/2023 8:46 AM CDT) Only the most recent of4 resultswithin the time period is included. Hemoglobin 11.7 11.6 - 15.0 g/dL 07/06/2023 8:58 AM CDT FB60 Hematocrit 36.3 35.5 - 44.9 % 07/06/2023 8:58 AM CDT FB60 Erythrocytes 4.10 3.92 - 5.13 x10(12)/L 07/06/2023 8:58 AM CDT FB60 MCV 88.5 78.2 - 97.9 fL 07/06/2023 8:58 AM CDT FB60 RBC Distrib Width 13.2 12.2 - 16.1 % 07/06/2023 8:58 AM CDT FB60 Platelet Count 123(L) 157 - 371 x10(9)/L 07/06/2023 8:58 AM CDT FB60 Leukocytes 4.3 3.4 - 9.6 x10(9)/L 07/06/2023 8:58 AM CDT FB60 Neutrophils 2.78 1.56 - 6.45 x10(9)/L 07/06/2023 8:58 AM CDT FB60 Lymphocytes 1.02 0.95 - 3.07 x10(9)/L 07/06/2023 8:58 AM CDT FB60 Monocytes 0.34 0.26 - 0.81 x10(9)/L 07/06/2023 8:58 AM CDT FB60 Eosinophils 0.16 0.03 - 0.48 x10(9)/L 07/06/2023 8:58 AM CDT FB60 Basophils <0.04 0.01 - 0.08 x10(9)/L 07/06/2023 8:58 AM CDT FB60 Blood (Blood, Venous) 07/06/2023 8:46 AM CDT 07/06/2023 8:46 AM CDT Patrick Erickson D.O. LAB BLOOD ADD-ON [facility] [address] [place] [address], [facility] FB60 [facility] in [place] [address] [facility] [place] [place] [address] * (ABNORMAL) Glucose, Fasting (07/06/2023 8:46 AM CDT) Glucose, P 131(H) 70 - 100 mg/dL 07/06/2023 2:02 PM CDT OWAT Last Intake 13 hr 07/06/2023 1:09 PM CDT OWAT Blood (Blood, Venous) 07/06/2023 8:46 AM CDT 07/06/2023 1:09 PM CDT Patrick Erickson D.O. LAB BLOOD NON ADD- ON [facility] [address] [place] [address], [place] OWAT [facility] [place] [address] [place] [address] * Basic Metabolic Panel (07/06/2023 8:46 AM CDT) Only the most recent of6 resultswithin the time period is included. Potassium, P 3.8 3.6 - 5.2 mmol/L 07/06/2023 2:03 PM CDT OWAT Sodium, P 141 135 - 145 mmol/L 07/06/2023 2:03 PM CDT OWAT Chloride, P 107 98 - 107 mmol/L 07/06/2023 2:03 PM CDT OWAT Bicarbonate, P 25 22 - 29 mmol/L 07/06/2023 2:03 PM CDT OWAT Anion Gap, P 9 7 - 15 07/06/2023 2:03 PM CDT OWAT BUN (Blood Urea Nitrogen), P 16 6 - 21 mg/dL 07/06/2023 2:03 PM CDT OWAT Creatinine 0.92 0.59 - 1.04 mg/dL 07/06/2023 2:03 PM CDT OWAT Estimated GFR (eGFR) 64 >=60 mL/min/BSA 07/06/2023 2:03 PM CDT OWAT Comment: Estimated GFR calculated using the 2020 CKD_EPI creatinine equation. Calcium, Total, P 8.9 8.8 - 10.2 mg/dL 07/06/2023 2:03 PM CDT OWAT Glucose, P CANCELED mg/dL 07/06/2023 1:09 PM CDT OWAT Comment: Duplicate test request. Result canceled by the ancillary. Blood (Blood, Venous) 07/06/2023 8:46 AM CDT 07/06/2023 1:08 PM CDT Patrick Erickson D.O. LAB BLOOD ADD-ON [facility] [address] [place] [address], [place] [facility] [place] [address] [place] [address] * ECG 12 Lead (06/22/2023 10:27 AM CDT) Only the most recent of3 resultswithin the time period is included. Ventricular Rate ECG/Min 43 BPM MUSE DE Interval 150 ms MUSE QRSD Interval 110 ms MUSE QT Interval 500 ms MUSE QTC Interval 422 ms MUSE P [place] 56 degrees MUSE R [place] 6 degrees MUSE T Wave [place] 269 degrees MUSE 06/22/2023 10:2 7 AM CDT 06/22/2023 11:00 AM CDT Impressions MUSE - 06/22/2023 11:00 AM CDT Marked sinus bradycardia Low anterior forces Non-specific intra-ventricular conduction delay Minimal voltage criteria for LVH, may be normal variant T wave abnormality, consider inferolateral ischemia When compared with ECG of 30-Dec-2021 14:24, Significant changes have occurred Reviewed by ASHIA Romero Narrative Procedure Note Matt Alva M.D. - 06/22/2023 IMPRESSION: Marked sinus bradycardia Low anterior forces Non-specific intra-ventricular conduction delay Minimal voltage criteria for LVH, may be normal variant T wave abnormality, consider inferolateral ischemia When compared with ECG of 30-Dec-2021 14:24, Significant changes have occurred Reviewed by ASHIA Romero Roberto Dumont APRN C.N.P. ECG ORDERABLE S Performing Organization Address City/[facility]/ZIP Co de Phone Number MUSE NA * (ABNORMAL) Urinalysis with Microscopic if Indicated (10/12/2022 10:02 AM CDT) Source Urine, Urine, Midstream 10/12/2022 10:19 AM CDT FB60 Clarity Slightly Cloudy(A) Clear 10/12/2022 10:32 AM CDT FB60 Color Yellow 10/12/2022 10:32 AM CDT FB60 Comment: ----REFERENCE VALUE---- Colorless Yellow Radha Blood Trace(A) Negative 10/12/2022 10:32 AM CDT FB60 Nitrite Positive(A) Negative 10/12/2022 10:32 AM CDT FB60 Leukocyte Esterase Large(A) Negative 10/12/2022 10:32 AM CDT FB60 Protein Negative mg/dL 10/12/2022 10:32 AM CDT FB60 Comment: ----REFERENCE VALUE---- Negative Trace Glucose Negative Negative mg/dL 10/12/2022 10:32 AM CDT FB60 Ketones, QI(U) Negative Negative mg/dL 10/12/2022 10:32 AM CDT FB60 Bilirubin Negative Negative 10/12/2022 10:32 AM CDT FB60 pH 6.0 5.0 - 8.0 10/12/2022 10:32 AM CDT FB60 Specific [place] 1.010 1.001 - 1.035 10/12/2022 10:32 AM CDT FB60 Urobilinogen 0.2 0.2 - 1.0 mg/dL 10/12/2022 10:32 AM CDT FB60 Urine (Urine, Midstream) 10/12/2022 10:02 AM CDT 10/12/2022 10:19 AM CDT Soheila Zapata P.A.-C., M.S. LAB URIN E ORDERABLES [facility] [address] [place] [address], [facility] FB60 [facility] [place] [address] [facility] [place] [address] * (ABNORMAL) Microscopic Manual (10/12/2022 10:02 AM CDT) White Blood Cells >100(A) /hpf 10/12/2022 10:57 AM CDT FB60 Comment: ----REFERENCE VALUE---- Males: 0-3 Females: 0-10 Unknown: 0-10 Red Blood Cells Occ-2 0 - 2 /hpf 10/12/2022 10:57 AM CDT FB60 Bacteria Present(A) None Seen 10/12/2022 10:57 AM CDT FB60 Urine 10/12/2022 10:0 2 AM CDT 10/12/2022 10:19 AM CDT Soheila Zapata P.A.-C., M.S. LAB URIN E ORDERABLES Performing Organization Address [facility] Co de Phone Number [facility] [address] [place] [address], [facility] FB60 [facility] [place] [address] [place] [address] * (ABNORMAL) Albumin, Random, Urine (10/12/2022 10:02 AM CDT) Microalbumin <12.0 mg/L 10/12/2022 2:35 PM CDT OW[facility] Comment:If clinically indica giancarlo, contact the lab for additional testing. Creatinine 26 mg/dL 10/12/2022 2:35 PM CDT [facility] Albumin/Creatinine Ratio <46(H) <25 mg/g 10/12/2022 2:35 PM CDT OW[facility] Comment: This ratio may not correspond with the reference range because one or both of the values used to calculate the ratio was above or below the quantification limits. Urine (Urine, Midstream) 10/12/2022 10:02 AM CDT 10/12/2022 1:36 PM CDT Soheila Zapata P.A.-C., M.S. LAB URIN E ORDERABLES Performing Organization Address City/[facility] Co de Phone Number [facility] [address] [place] [address], [place] [facility] [place] [address] [place] [address] * (TTE) 2D ECHO DOPPLER COLOR (06/01/2022 8:09 AM CDT) [facility] Ejection Fraction 48 MC CV EIMS Mid-Ascending Aorta 33 MC CV EIMS LV Mass Index 130 MC CV EIMS LV End-Diastolic Diameter 54 MC CV EIMS LV End-Systolic Diameter 41 MC CV EIMS MV E Velocity 0.5 MC CV EIMS MV A Velocity 0.5 MC CV EIMS MV E/A 1 MC CV EIMS MV e' Velocity Medial 0.04 MC CV EIMS MV e' Velocity Lateral 0.05 MC CV EIMS MV E/e' Medial 12.5 MC CV EIMS MV E/e' Lateral 10 MC CV EIMS Left ventricular stroke volume index 50 MC CV EIMS Cardiac Output 4.02 MC CV EIMS Cardiac Index 2.11 MC CV EIMS LV Interventricular Septal Wall Thickness 12 MC CV EIMS LV Posterior Wall Thickness 11 MC CV EIMS LV Relative Wall Thickness 41 MC CV EIMS RV 4-Chamber Basal Diameter 46 MC CV EIMS TAPSE 17 MC CV EIMS Tricuspid Annular S? 0.09 MC CV EIMS TR Vmax 2.19 MC CV EIMS RA Pressure 5 MC CV EIMS RV Systolic Pressure 24 MC CV EIMS AV mean gradient 3 MC CV EIMS Aortic valve area 3.2 MC CV EIMS Aortic Valve Dimensionless Index 0.84 MC CV EIMS LA Volume Index 50 MC CV EIMS Aortic Valve Systolic Peak Velocity 1.3 MC CV EIMS Anatomical Region Laterality Modality Echocardiography 06/01/2022 7:21 AM CDT Impressions 06/01/2022 3:02 PM CDT Transthoracic outreach echo interpretation. LEFT VENTRICLE:Mildly enlarged left ventricular chamber size. Abnormal left ventricular geometry with ??eccentric left ventricular hypertrophy. Calculated 2-D linear left ventricular ejection fraction 48%. Left ventricular volumes were performed but not reported based on glove cleaner's judgment. Mild generalized left ventricular hypokinesis. Normal left ventricular filling pressure at rest. RIGHT VENTRICLE:Mildly enlarged right ventricular chamber size. Normal right ventricular systolic function. Estimated right ventricular systolic pressure 24 mmHg (right atrial pressure of 5 mmHg). ATRIA:Severely enlarged left atrial size. Left atrial volume index 50 ml/m2. Enlarged right atrial size by visual estimate. CARDIAC VALVES:No hemodynamically significant valvular heart disease. Trileaflet aortic valve. Mildly thickened aortic valve. No aortic valve regurgitation. Normal mitral valve. Trivial mitral valve regurgitation. Normal pulmonary valve. Normal pulmonary valve systolic velocities. Trivial pulmonary valve regurgitation. Normal tricuspid valve. Trivial tricuspid valve regurgitation. OTHER ECHO FINDINGS:Normal inferior vena cava size with normal inspiratory collapse (>50%). Normal mid ascending aorta diameter of 33 mm. Abdominal aorta incompletely visualized. Normal abdominal aorta Doppler flow pattern. Imaging inadequate for detection of atrial level shunt by color flow imaging. No intracardiac mass or thrombus, but the left atrial appendage cannot be visualized adequately with transthoracic echo to exclude thrombus in this location. No ??pericardial effusion. Prominent anterior epicardial fat layer. For the complete report, see the Order-Level Documents. Narrative 06/01/2022 3:02 PM CDT For the complete report, see the Order-Level Documents. Hemodynamics Heart Rate: 42 BPM Blood Pressure: 124 / 71 mmHg ECG: Sinus rhythm, Marked bradycardia throughout exam. Final Impressions 1. Transthoracic outreach echo interpretation. 2. Mildly enlarged left ventricular chamber size, mild generalized hypokinesis, calculated 2-D linear ejection fraction 48%. 3. Left ventricular cardiac index 2.11 l/min/m2. 4. Mildly enlarged right ventricular chamber size, normal systolic function, estimated right ventricular systolic pressure 24 mmHg (right atrial pressure of 5 mmHg). 5. Abnormal left ventricular geometry with ??eccentric left ventricular hypertrophy, normal filling pressure. 6. No hemodynamically significant valvular heart disease. 7. Normal inferior vena cava size with normal inspiratory collapse (>50%). 8. No ??pericardial effusion. 9. Despite minimal differences in reporting (namely the right ventricular size), when compared side by side to the images from 07/28/2017, the heart rate is slower today but otherwise no significant change has occurred Procedure Note Yaakov Jett M.D. - 06/01/2022 For the complete report, see the Order-Level Documents. Hemodynamics Heart Rate: 42 BPM Blood Pressure: 124 / 71 mmHg ECG: Sinus rhythm, Marked bradycardia throughout exam. Final Impressions 1. Transthoracic outreach echo interpretation. 2. Mildly enlarged left ventricular chamber size, mild generalizedhypokinesis, calculated 2-D linear ejection fraction 48%. 3. Left ventricular cardiac index 2.11 l/min/m2. 4. Mildly enlarged right ventricular chamber size, normal systolicfunction, estimated right ventricular systolic pressure 24 mmHg (rightatrial pressure of 5 mmHg). 5. Abnormal left ventricular geometry with eccentric left ventricularhypertrophy, normal filling pressure. 6. No hemodynamically significant valvular heart disease. 7. Normal inferior vena cava size with normal inspiratory collapse(>50%). 8. No pericardial effusion. 9. Despite minimal differences in reporting (namely the right ventricularsize), when compared side by side to the images from 07/28/2017, the heartrate is slower today but otherwise no significant change has occurred Findings Transthoracic outreach echo interpretation. LEFT VENTRICLE:Mildly enlarged left ventricular chamber size. Abnormalleft ventricular geometry with eccentric left ventricular hypertrophy.Calculated 2-D linear left ventricular ejection fraction 48%. Leftventricular volumes were performed but not reported based on glove cleaner'sjudgment. Mild generalized left ventricular hypokinesis. Normal leftventricular filling pressure at rest. RIGHT VENTRICLE:Mildly enlarged right ventricular chamber size. Normalright ventricular systolic function. Estimated right ventricular systolicpressure 24 mmHg (right atrial pressure of 5 mmHg). ATRIA:Severely enlarged left atrial size. Left atrial volume index 50ml/m2. Enlarged right atrial size by visual estimate. CARDIAC VALVES:No hemodynamically significant valvular heart disease.Trileaflet aortic valve. Mildly thickened aortic valve. No aortic valveregurgitation. Normal mitral valve. Trivial mitral valve regurgitation.Normal pulmonary valve. Normal pulmonary valve systolic velocities.Trivial pulmonary valve regurgitation. Normal tricuspid valve. Trivialtricuspid valve regurgitation. OTHER ECHO FINDINGS:Normal inferior vena cava size with normal inspiratorycollapse (>50%). Normal mid ascending aorta diameter of 33 mm. Abdominalaorta incompletely visualized. Normal abdominal aorta Doppler flowpattern. Imaging inadequate for detection of atrial level shunt by colorflow imaging. No intracardiac mass or thrombus, but the left atrialappendage cannot be visualized adequately with transthoracic echo toexclude thrombus in this location. No pericardial effusion. Prominentanterior epicardial fat layer. For the complete report, see the Order-Level Documents. Roberto Dumont APRN C.N.PHowie CV ECHO SHRAVAN BARLOW * HOLTER MONITOR - IN CLINIC FLEET OPERATIONS MANAGER (04/08/2022 2:11 AM OPTIMIZATION ANALYST) Only the most recent of2 resultswithin the time period is included. Min Heart Rate 42 bpm INFOB IONIC MOME Max Heart Rate 82 bpm INFOB IONIC MOME Mean Heart Rate 58 bpm INFOBIONIC MOME VE Total Beats 802 count INFOB IONIC MOME VE Percent Beats 1 percent INFOBIONIC MOME SVE Total Beats 210 count INFOBIONIC MOME SVE Percent Beats less than 1 percent INFOBIONIC MOME AF Count 0 count INFOBIONIC MOME AF Duration 0 duration INFOBION IC MOME AF [place] 0 percent INFOBIONIC MOME Symptom Count 1 count INFOBI ONIC MOME 04/07/2022 10:3 2 AM OPTIMIZATION ANALYST Narrative INFOBIONIC MOME - 04/10/2022 9:40 AM OPTIMIZATION ANALYST [place] 1. The basic rhythm was sinus with sinus arrhythmia. Not all areas of arrhythmia could be assessed for atrial fibrillation due to poor quality of recording. The total analyzed time was 22h 3m. The heart rate varied from 42 to 82 bpm. The average HR was 58 bpm. 2. Premature ventricular complexes were noted singly, paired and in patterns of bigeminy and trigeminy. There were 802 PVCs recorded with a PVC burden of 1%. 3. Premature supraventricular complexes were noted. There were eight atrial runs from 3 to 22 beats with a max heart rate of 124 bpm. ??Some of these are possible for brief runs of afib. There were 210 PACs recorded with a PAC burden of less than 1%. PAC count has a margin of error due to arrhythmia and artifact. 4. A total of 1 symptomatic event was noted for unknown reason. The heart rate varied from 61 to 61 bpm. PVCs, PACs and a run of atrial bigeminy were noted in or around these events. Rand Cementer: Smita Venegas/[id number] Fellow: Bradly Davenport MD Procedure Note Rachana Silva M.D., Ph.D. - 04/10/2022 [place] 1. The basic rhythm was sinus with sinus arrhythmia. Not all areas ofarrhythmia could be assessed for atrial fibrillation due to poor qualityof recording. The total analyzed time was 22h 3m. The heart rate variedfrom 42 to 82 bpm. The average HR was 58 bpm. 2. Premature ventricular complexes were noted singly, paired and inpatterns of bigeminy and trigeminy. There were 802 PVCs recorded with aPVC burden of 1%. 3. Premature supraventricular complexes were noted. There were eightatrial runs from 3 to 22 beats with a max heart rate of 124 bpm. Some ofthese are possible for brief runs of afib. There were 210 PACs recordedwith a PAC burden of less than 1%. PAC count has a margin of error due to arrhythmia and artifact. 4. A total of 1 symptomatic event was noted for unknown reason. The heartrate varied from 61 to 61 bpm. PVCs, PACs and a run of atrial bigeminywere noted in or around these events. Rand Cementer: Smita Venegas/[id number] Fellow: Bradly Davenport MD Roberto Dumont APRN, C.N.PHowie CV CARDIAC SE RVICES PROCEDURES INFOBIONIC [facility] [facility] NA * FL LUMBAR SPINE TRANSFORAMINAL EPIDURAL INJECTION LEFT (12/25/2021 3:40 PM CDT) Narrative 8020 LOS SEMN - 12/25/2021 3:15 PM CDT Eder Torres M.D. ? 12/25/2021 ??4:01 PM FL Lumbar Spine Transforaminal Epidural Injection Left Performed by: Eder Torres M.D. Authorized by: Eder Torres M.D. Care team members present 1. Steffany Retana R.N. 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 Image(s) acquired and saved. INJECTED MEDICATIONS Total volume of injectate (mL): dexamethasone (10 mg/mL) 1 mL , PF lidocaine (2%) 1 mL , Omnipaque (300 u/ml) 1 mL Total steroid in injectate (mg): dexamethasone 10 mg PROCEDURE DETAILS ?? Transforaminal epidural injection - lumbar: After identifying the appropriate pedicle fluoroscopically with an oblique view. A spinal needle was then advanced under fluoroscopic guidance to the posterior aspect of the neural foramen. Appropriate foraminal depth was determined with a lateral fluoroscopic view, and AP visualization confirmed needle positioning at approximately the 6 o'clock position relative to the pedicle. After negative aspiration, contrast was injected using live fluoroscopy and digital subtraction angiography, confirming appropriate transforaminal spread without evidence of intravascular or intrathecal uptake. A local anesthetic test dose consisting of 1 mL of 2% lidocaine was injected through the needle. ??After an appropriate period of observation, a directed neurological exam was performed which revealed no new neurologic deficits. Next, the injectate was injected slowly and incrementally into the epidural space. ??Following the injection the needle was withdrawn flushed with lidocaine as it was fully extracted. The patient tolerated the procedure well and there were no apparent complications. After appropriate observation, the patient was dismissed in good condition under their own power. ? ADDITIONAL PROCEDURE COMMENTS Dexamethasone (10 mg/ml): 1cc Lidocaine 2%: 1cc Omnipaque (300 u/ml): 1cc CONSENT Consent obtained: written UNIVERSAL PROTOCOL All relevant documentation and testing were reviewed and available. All required blood products, implants, devices and or special equipment were made available as applicable. Pre-procedure verification was conducted and the correct site was marked if required. A fire risk assessment was done as applicable. The procedural time-out to verify correct patient, correct side/site, and procedure was conducted prior to performing the procedure and confirmed in a procedural pause. PRE-PROCEDURE DETAILS Procedure purpose: diagnostic and therapeutic Appropriate hand hygiene, gown, cap, mask, protective eyewear, sterile gloves, skin preparation, sterile drape, and strict aseptic technique were utilized as applicable for the procedure: yes ?? Site preparation: chlorhexidine SEDATION / ANESTHESIA Anesthesia method: local infiltration Local infiltrate type: lidocaine Eder MAN FLUOROSCOPY PROCEDURES [id number] [facility] * BI Breast Screening Bilateral with Tomosynthesis (12/09/2021 3:16 PM CDT) Anatomical Region Laterality Modality Breast, Breast Imaging RST L OS, Breast Imaging ARZ LOS, Breast Imaging FLA LOS Bilateral Mammography 12/09/2021 4:58 PM CDT Impressions 12/09/2021 4:59 PM CDT Negative. RECOMMENDATION: ??Annual Screening Mammogram ASSESSMENT: ??BI-RADS: 1: Negative. Narrative 12/09/2021 4:59 PM CDT EXAM: ??BI BREAST SCREENING BILATERAL WITH TOMOSYNTHESIS Current study was evaluated with a Computer Aided Detection (CAD) system. INDICATION: ??Screening mammogram. COMPARISON: ??Prior exam(s) were available and reviewed for comparison. DENSITY: ??b. There are scattered areas of fibroglandular density. FINDINGS: ??No mammographic findings of malignancy. Procedure Note Roberto Alberto M.D. - 12/09/2021 EXAM: BI BREAST SCREENING BILATERAL WITH TOMOSYNTHESIS Current study was evaluated with a Computer Aided Detection (CAD) system. INDICATION: Screening mammogram. COMPARISON: Prior exam(s) were available and reviewed for comparison. DENSITY: b. There are scattered areas of fibroglandular density. FINDINGS: No mammographic findings of malignancy. IMPRESSION: Negative. RECOMMENDATION: Annual Screening Mammogram ASSESSMENT: BI-RADS: 1: Negative. Soheila Zapata P.A.-C., M.S. IMG BI P ROCEDURES * S-TSH (Thyroid-Stimulating Hormone - Sensitive) (11/06/2021 2:48 PM CDT) Only the most recent of6 resultswithin the time period is included. TSH, Sensitive 2.3 0.3 - 4.2 mIU/L 11/06/2021 3:30 PM CDT [facility] Blood (Blood, Venous) 11/06/2021 2:48 PM CDT 11/06/2021 2:52 PM CDT Soheila Zapata P.A.-C., M.S. LAB BLOO D ADD-ON [facility] [address] [place] [address], [facility] [place] [address] [place] [address] * Sodium (11/06/2021 2:48 PM CDT) Only the most recent of3 resultswithin the time period is included. Sodium, P 142 135 - 145 mmol/L 11/06/2021 3:22 PM CDT [facility] Blood (Blood, Venous) 11/06/2021 2:48 PM CDT 11/06/2021 2:52 PM CDT Soheila Zapata P.A.-C., M.S. LAB BLOO D ADD-ON Performing Organization Address City/[facility]/ZIP Co de Phone Number [facility] [address] [place] [address], [place] [facility] [place] [address] [place] [address] * Potassium (11/06/2021 2:48 PM CDT) Only the most recent of5 resultswithin the time period is included. Potassium, P 4.2 3.6 - 5.2 mmol/L 11/06/2021 3:22 PM CDT [facility] Blood (Blood, Venous) 11/06/2021 2:48 PM CDT 11/06/2021 2:52 PM CDT Soheila Zapata P.A.-C., M.S. LAB BLOO D ADD-ON [facility] [address] [place] [address], [place] [facility] [place] [address] [place] [address] * (ABNORMAL) Hemoglobin A1c (11/06/2021 2:48 PM CDT) Only the most recent of3 resultswithin the time period is included. Hemoglobin A1c, B 6.0(H) 4.2 - 5.6 % 11/06/2021 3:15 PM CDT OW[facility] Comment: Hemoglobin A1c values of 5.7-6.4 percent indicate an increased risk for developing diabetes mellitus. In diabetic patients, HbA1c goals should be discussed with healthcare provider. Blood (Blood, Venous) 11/06/2021 2:48 PM CDT 11/06/2021 2:52 PM CDT Soheila Zapata P.A.-C. MReinier LAB BLOO D ADD-ON Performing Organization Address [facility] Co de Phone Number [facility] [address] [address], [place] [facility] in [place] [address] [place] [id number] * (ABNORMAL) Creatinine with Estimated GFR (11/06/2021 2:48 PM CDT) Only the most recent of9 resultswithin the time period is included. Creatinine 1.07(H) 0.59 - 1.04 mg/dL 11/06/2021 3:22 PM CDT [facility] Estimated GFR (eGFR) 54(L) >=60 mL/min/BSA 11/06/2021 3:22 PM CDT [facility] Comment: Estimated GFR calculated using the 2020 CKD_EPI creatinine equation. Blood (Blood, Venous) 11/06/2021 2:48 PM CDT 11/06/2021 2:52 PM CDT Soheila Zapata P.A.-C. MHowieSHowie LAB BLOO D ADD-ON Performing Organization Address [facility] Co de Phone Number [facility] [address] [address], [place] [facility] [place] [address] [address] * MR Lumbar Spine without IV Contrast (05/17/2020 11:41 AM OPTIMIZATION ANALYST) Anatomical Region Laterality Modality Lumbar Spine, Neuroradiology RST [facility], Neuroradiology ARAdam [facility], Neuroradiology FLGenie [facility] N/A Magnetic Resonance 05/17/2020 12:5 1 PM OPTIMIZATION ANALYST Impressions 05/17/2020 1:09 PM OPTIMIZATION ANALYST 1. Degenerative spondylosis lumbar spine, as detailed, including essentially severe narrowing of the spinal canal at L4-L5. 2. A left-sided disc extrusion/protrusion at L5-S1 could result in L5 radicular symptoms. 3. Incidental imaging of a 8.6 cm cyst in the spleen probably representing sequela of remote injury or inflammatory insult. Narrative 05/17/2020 1:09 PM OPTIMIZATION ANALYST EXAM: ??MR LUMBAR SPINE WITHOUT IV CONTRAST COMPARISON: ??Lumbar radiographs 07/19/2017. FINDINGS: ?? T12-L1: No spinal canal or neural foraminal narrowing. Minimal disc bulge. L1-2: ??No spinal canal or neural foraminal narrowing. L2-3: ??No spinal canal or neural foraminal narrowing. L3-4: ??At least mild narrowing of spinal canal related to minimal disc and moderate bilateral facet degeneration. No neural impingement. No neural foraminal narrowing. L4-5: ??Essentially severe narrowing of spinal canal related to grade 1 anterolisthesis of L4 on L5, minimal disc bulge, moderate to advanced facet degeneration. There is near complete effacement of CSF about the nerve roots. L5-S1: Left paracentral/foraminal disc protrusion/extrusion which moderately narrows the foramen and abuts but does not compress the exiting left L5 nerve root (series 5, image 2-4). No right neural foraminal narrowing. Minimal narrowing of spinal canal related to minimal disc bulge. Acute phase degenerative signal at the endplates. Mild perifacet edema is on the left. Alignment: ??As above. Bone Marrow: ??Round partially T1 hyperintense structures at the bodies of L3, L4, and L5 measuring which are compatible with benign vertebral hemangiomata. Conus: ??Normal termination Extra-spinal Findings: ??Partially imaged 8.6 cm cyst with a few internal septations is best seen on hand flatwork finisher imaging (series 1, images 15-18). This is probably benign and may represent sequela of remote injury or inflammatory insult. Probable cysts at the right kidney with the largest measuring 1.3 cm. For the purpose of this report, there are 24 presacral vertebra and 5 lumbar type vertebral bodies are assumed. ??Close radiographic correlation recommended prior to any spinal intervention or surgery. Procedure Note Eliel Capone M.D. - 05/17/2020 EXAM: MR LUMBAR SPINE WITHOUT IV CONTRAST COMPARISON: Lumbar radiographs 07/19/2017. FINDINGS: T12-L1: No spinal canal or neural foraminal narrowing. Minimal discbulge. L1-2: No spinal canal or neural foraminal narrowing. L2-3: No spinal canal or neural foraminal narrowing. L3-4: At least mild narrowing of spinal canal related to minimal discand moderate bilateral facet degeneration. No neural impingement. No neural foraminal narrowing. L4-5: Essentially severe narrowing of spinal canal related to grade 1 anterolisthesis of L4 on L5, minimal disc bulge, moderate to advancedfacet degeneration. There is near complete effacement of CSF about the nerveroots. L5-S1: Left paracentral/foraminal disc protrusion/extrusion whichmoderately narrows the foramen and abuts but does not compress the exiting left F2mifth root (series 5, image 2-4). No right neural foraminal narrowing. Minimal narrowing of spinal canal related to minimal disc bulge. Acute phase degenerative signal at the endplates. Mild perifacet edema is on theleft. Alignment: As above. Bone Marrow: Round partially T1 hyperintense structures at the bodies ofL3, L4, and L5 measuring which are compatible with benign vertebralhemangiomata. Conus: Normal termination Extra-spinal Findings: Partially imaged 8.6 cm cyst with a few internal septations is best seen on hand flatwork finisher imaging (series 1, images 15-18). Thisis probably benign and may represent sequela of remote injury orinflammatory insult. Probable cysts at the right kidney with the largest measuring 1.3cm. For the purpose of this report, there are 24 presacral vertebra and 5lumbar type vertebral bodies are assumed. Close radiographic correlationrecommended prior to any spinal intervention or surgery. IMPRESSION: 1. Degenerative spondylosis lumbar spine, as detailed, includingessentially severe narrowing of the spinal canal at L4-L5. 2. A left-sided disc extrusion/protrusion at L5-S1 could result in [id number] symptoms. 3. Incidental imaging of a 8.6 cm cyst in the spleen probablyrepresenting sequela of remote injury or inflammatory insult. Butch Velazquez M.D. IMG MRI PROCEDURES * SARS Coronavirus-2 RNA, V Symptomatic (11/25/2019 1:05 PM CDT) Only the most recent of2 resultswithin the time period is included. SARS-CoV-2 Specimen Source Swab, Nasopharynx 11/26/2019 5:33 AM CDT [facility] SARS CoV-2 RNA, TMA Undetected Undetected 11/26/2019 5:33 AM CDT [facility] Comment: SARS-CoV-2 RNA absent. This result does not rule out COVID-19 in the patient, as the sensitivity of the test depends on the timing of the specimen collection and the quality of the specimen. Result should be correlated with patient's history and clinical presentation. ----ADDITIONAL INFORMATION---- This test is performed using the Aptima SARS-CoV-2 assay ([employer] which has received Emergency Use Authorization (EUA) by the U.S. Food and Drug Administration. Fact sheets for this Emergency Use Authorization (EUA) assay can be found at the following links: For Healthcare Providers: https://www.fda.gov/media/274957/download For Patients: https://www.fda.gov/media/105132/download Varies (Nasopharynx) 11/25/2019 1:05 PM CDT 11/25/2019 5:08 PM CDT Patrick Erickson D.O. LAB MICROBIOLOGY - GENERAL ORDERABLES [facility] [address] [place] [address], [facility] [place] [address] * Hemoglobin (12/28/2017 12:20 PM CDT) Hemoglobin 12.9 11.6 - 15.0 g/dL 12/28/2017 12:36 PM CDT [facility] Blood (Blood, Venous) 12/28/2017 12:20 PM CDT 12/28/2017 12:34 PM CDT Tariq Estrella M.D. LAB BLOOD ADD-ON [facility] [address] [place] [address], [facility] * (TTE) 2D ECHO DOPPLER COLOR (07/28/2017 9:22 AM CDT) Pathologist [facility] Ejection Fraction 49 MC CV EIMS Mid-Ascending Aorta 31 MC CV EIMS LV Mass Index 123 MC CV EIMS LV End-Diastolic Diameter 58 MC CV EIMS LV End-Systolic Diameter 44 MC CV EIMS LV End-Diastolic Volume 152 MC CV EIMS LV End-Systolic Volume 78 MC CV EIMS MV E Velocity 0.4 MC CV EIMS MV A Velocity 0.5 MC CV EIMS MV E/A 0.80 MC CV EIMS MV e' Velocity Medial 0.04 MC CV EIMS MV e' Velocity Lateral 0.09 MC CV EIMS MV E/e' Medial 10.0 MC CV EIMS MV E/e' Lateral 4.4 MC CV EIMS Left ventricular stroke volume index 40 MC CV EIMS Cardiac Output 4.47 MC CV EIMS Cardiac Index 2.21 MC CV EIMS LV Interventricular Septal Wall Thickness 11 MC CV EIMS LV Posterior Wall Thickness 10 MC CV EIMS LV Relative Wall Thickness 34 MC CV EIMS TAPSE 20 MC CV EIMS Tricuspid Annular S? 0.09 MC CV EIMS TR Vmax 2.40 MC CV EIMS RA Pressure 5 MC CV EIMS RV Systolic Pressure 28 MC CV EIMS Aortic valve area 2.49 MC CV EIMS Aortic Valve Dimensionless Index 0.66 MC CV EIMS LA Volume Index 42 MC CV EIMS Anatomical Region Laterality Modality Echocardiography 07/28/2017 8:40 AM CDT Narrative 07/28/2017 4:44 PM CDT See PDF For Result Procedure Note Tariq Estrella M.D. - 07/28/2017 See PDF For Result Tariq Estrella M.D. CV ECHO PROCEDURES * DX Lumbar Spine 2-3 Views (07/19/2017 11:35 AM CDT) Anatomical Region Laterality Modality Lumbar Spine, Musculoskeletal RST LOS N/A Digital Radiography 07/19/2017 11:4 3 AM CDT Impressions 07/19/2017 11:46 AM CDT IMPRESSION: 1. Age-indeterminate compression fractures L2-L5. 2. Moderate degenerative lumbar spondylosis. 3. Malalignment. Narrative 07/19/2017 11:46 AM CDT EXAM: DX LUMBAR SPINE 2-3 VIEWS FINDINGS: Age-indeterminate L2-L5 vertebral compression fractures with mild height loss. Grade 1 spondylolisthesis L4-L5 from facet hypertrophy. 4 mm retrolisthesis of T12-L1 and L1-L2. Moderate thoracolumbar dextroscoliosis. Multilevel moderate degenerative disc height loss, disc endplate spurring, and severe facet hypertrophy from degenerative lumbar spondylosis. 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 Severe degenerative pubic symphysis with subchondral sclerosis. Osteopenia. Procedure Note Dago Myers M.D. - 07/19/2017 EXAM: DX LUMBAR SPINE 2-3 VIEWS FINDINGS: Age-indeterminate L2-L5 vertebral compression fractures withmild height loss. Grade 1 spondylolisthesis L4-L5 from facet hypertrophy. 4mm retrolisthesis of T12-L1 and L1-L2. Moderate thoracolumbardextroscoliosis. 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 Severe degenerative pubic symphysis with subchondral sclerosis.Osteopenia. IMPRESSION: 1. Age-indeterminate compression fractures L2-L5. 2. Moderate degenerative lumbar spondylosis. 3. Malalignment. Bayron Fernandez M.D. IMG DIAGNOSTIC IMAGI NG PROCEDURES * CBC without Differential (06/30/2017 8:20 AM CDT) Only the most recent of2 resultswithin the time period is included. Hemoglobin 12.5 11.6 - 15.0 g/dL 06/30/2017 8:40 AM CDT [facility] Hematocrit 39.5 35.5 - 44.9 % 06/30/2017 8:40 AM CDT [facility] Erythrocytes 4.46 3.92 - 5.13 x10(12)/L 06/30/2017 8:40 AM CDT [facility] MCV 88.6 78.2 - 97.9 fL 06/30/2017 8:40 AM CDT [facility] RBC Distrib Width 13.6 12.2 - 16.1 % 06/30/2017 8:40 AM CDT [facility] Platelet Count 174 157 - 371 x10(9)/L 06/30/2017 8:40 AM CDT [facility] Leukocytes 6.7 3.4 - 9.6 x10(9)/L 06/30/2017 8:40 AM CDT [facility] Blood 06/30/2017 8:20 AM CDT 06/30/2017 8:36 AM CDT Tariq Estrella M.D. LAB BLOOD ADD-ON [facility] [address] [place] [id number], [facility] * BUN (Blood Urea Nitrogen) (06/30/2017 8:20 AM CDT) Only the most recent of5 resultswithin the time period is included. BUN (Blood Urea Nitrogen), S 15 6 - 21 mg/dL 06/30/2017 11:08 AM CDT [facility] Blood 06/30/2017 8:20 AM CDT 06/30/2017 8:36 AM CDT Tariq Estrella M.D. LAB BLOOD ADD-ON Performing Organization Address City/[facility]/ZIP Co de Phone Number [facility] [address] [place] [address], [facility] * Automated Differential (08/17/2016 9:54 AM CDT) Only the most recent of2 resultswithin the time period is included. Absolute Neutrophils 6.90 1.70 - 7.00 109L POWERCHART Lymphocytes 1.35 0.90 - 2.90 X109L POWERCHART Monocytes 0.75 0.30 - 0.90 X109L POWERCHART Eosinophils 0.26 0.05 - 0.50 X109L POWERCHART Absolute Basophil 0.04 0.00 - 0.30 X109L POWERCHART Blood 08/17/2016 9:54 AM CDT 08/17/2016 9:54 AM CDT Parvin Regalado M.D. LAB BLOOD ADD-ON Performing Organization Address City/[facility] Co de Phone Number POWERCHART * ALT (Alanine Aminotransferase) (07/09/2016 10:59 AM CDT) Alanine Amniotransferas e, LD 16 7 - 45 UNITL POWERCHART Blood 07/09/2016 10:5 9 AM CDT Tariq Estrella M.D. LAB BLOOD ADD-ON Performing Organization Address City/[facility] Co de Phone Number POWERCHART * AST (Aspartate Aminotransferase) (07/09/2016 10:59 AM CDT) Aspartate Aminotransferase (AST), S 16 8 - 43 UNITL POWERCHART Blood 07/09/2016 10:5 9 AM CDT Tariq Estrella M.D. LAB BLOOD ADD-ON Performing Organization Address City/[facility] Co de Phone Number POWERCHART * Electrolyte Panel (07/01/2016 11:51 AM CDT) Only the most recent of4 resultswithin the time period is included. Sodium, S 142 135 - 145 MMOLL POWERCHART Potassium, S 4.3 3.6 - 5.2 MMOLL POWERCHART Chloride, S 100 98 - 107 MMOLL POWERCHART CO2 Total 28 22 - 29 MMOLL POWERCHART Comment:Reference ranges hav e not been established for patients that are <12 months of age. Anion Gap 14 7 - 15 MMOLL POWERCHART Blood 07/01/2016 11:5 1 AM CDT Tariq Estrella M.D. LAB BLOOD ADD-ON POWERCHART * ECHOCARDIOLOGY IMAGE EXAM (06/24/2016 9:21 AM CDT) Only the most recent of4 resultswithin the time period is included. Anatomical Region Laterality Modality Other 06/24/2016 9:21 AM CDT Addenda Addendum by ProviderDarin M.D. on 06/24/2016 9:21 AM CDT ECHO^^^MCR Non-Radiology Image 06/24/2016 09:21:00 Historical Provider IMG NON RAD IMAGING PROCEDURES * Echo Transthoracic (TTE) (06/24/2016 9:16 AM CDT) Anatomical Region Laterality Modality Echocardiography 06/24/2016 9:16 AM CDT Historical Provider CV ECHO PROCEDURES * Echo Transthoracic (TTE) (06/13/2015 7:57 AM CDT) Anatomical Region Laterality Modality Echocardiography 06/13/2015 7:57 AM CDT Historical Provider CV ECHO PROCEDURES * (ABNORMAL) NT-Pro B-Type Natriuretic Peptide (BNP) (12/05/2014 9:18 AM CDT) Only the most recent of2 resultswithin the time period is included. B-Type Natriuretic Peptide (BNP) 1602(H) 10 - 222 PGML POWERCHART Comment: NT-proBNP values less than 300 pg/mL have a 99% negative predictive value for excluding acute congestive heart failure. A cutoff of 1200 pg/mL for patients with an eGFR<60 yields a diagnostic sensitivity and specificity of 89% and 72% for acute congestive heart failure. ? Adults <50 years: ??NT-proBNP values greater than 450 pg/mL are consistent with CHF. ? Adults 50-75 years: ??A diagnostic NT-proBNP cutoff of 900 pg/mL has been suggested in the absence of renal failure. ? Adults >75 years: ??A diagnostic NT-proBNP cutoff of 1800 pg/mL has been suggested in the absence of renal failure. Blood 12/05/2014 9:18 AM CDT Tariq Estrella M.D. LAB BLOOD ADD-ON Performing Organization Address [facility] de Phone Number POWERCHART * Echo Transthoracic (TTE) (12/05/2014 8:09 AM CDT) Anatomical Region Laterality Modality Echocardiography 12/05/2014 8:09 AM CDT Historical Provider CV ECHO PROCEDURES * T3 (Triiodothyronine), Free (08/29/2014 9:34 AM CDT) T3 (Triiodothyronine ), Free, S 2.6 2.0 - 3.5 PGML POWERCHART Comment: Test Performed by: [place] [address] Body Painter: Raúl Loyola II, M.D., Ph.D. Blood 08/29/2014 9:34 AM CDT Braulio Simmons M.D. LAB BLOOD ADD-O N Performing Organization Address City/[facility] de Phone Number POWERCHART * T4 (Thyroxine), Free (08/29/2014 9:34 AM CDT) T4 (Thyroxine), Free, S 0.92 0.90 - 1.70 NGDL POWERCHART Blood 08/29/2014 9:34 AM CDT Braulio Simmons M.D. LAB BLOOD ADD-O N POWERCHART * Ferritin (08/15/2014 7:52 AM CDT) Ferritin, S 42.8 11.0 - 307.0 NGML POWERCHART Blood 08/15/2014 7:52 AM CDT Tariq Estrella M.D. LAB BLOOD ADD-ON POWERCHART * Echo Transthoracic (TTE) (08/03/2014 9:15 AM CDT) Anatomical Region Laterality Modality Echocardiography 08/03/2014 9:15 AM CDT Historical Provider CV ECHO PROCEDURES * DX Chest Anterior Posterior or Posterior Anterior and Lateral 2 Views (08/01/2014 4:28 PM CDT) Anatomical Region Laterality Modality Chest N/A Radiographic Paula ging 08/01/2014 4:28 PM CDT Addenda Addendum by ProviderDarin M.D. on 08/01/2014 4:28 PM CDT RAD^^^OW XR Chest 2 Views 08/01/2014 16:28:44 Impressions 08/01/2014 4:43 PM CDT 1. Moderate cardiomegaly. 2. Mild pulmonary edema or interstitial infection. Narrative 08/01/2014 4:43 PM CDT EXAM: XR Chest 2 Views INDICATION: short of breath x 2 weeks. treated for bronchitis without improvement. AGE: 69 years-old COMPARISON: None. FINDINGS: Moderate cardiomegaly. Central vascular congestion. There is interstitial thickening in bilateral lower lungs compatible with either interstitial infection or mild pulmonary edema. Mild bibasilar atelectasis. Procedure Note Dago Myers M.D. / ProviderDarin M.D. - 07/15/2016 EXAM: XR Chest 2 Views INDICATION: short of breath x 2 weeks. treated for bronchitis without improvement. AGE: 69 years-old COMPARISON: None. FINDINGS: Moderate cardiomegaly. Central vascular congestion. There is interstitial thickening in bilateral lower lungs compatible with either interstitial infection or mild pulmonary edema. Mild bibasilar atelectasis. IMPRESSION: 1. Moderate cardiomegaly. 2. Mild pulmonary edema or interstitial infection. Keri George(R), R.THowie(MR) DONOVAN DI AGNOSTIC IMAGING PROCEDURES * Troponin I (08/01/2014 4:09 PM CDT) Troponin I, S see report 0 - 0 NGML POWERCHART Blood 08/01/2014 4:09 PM CDT Bayron Fernandez M.D. LAB BLOOD NON ADD-ON Performing Organization Address City/State/[facility] Co de Phone Number POWERCHART * (ABNORMAL) D-Dimer (08/01/2014 4:09 PM CDT) D-Dimer, P 0.43(H) 0.00 - 0.40 [id number] POWERCHART Blood 08/01/2014 4:09 PM CDT Bayron Fernandez M.D. LAB BLOOD ADD-ON POWERCHART Visit Diagnoses Diagnosis Start Date Failure Heart (HCC) 12/18/2016 Diabetes Mellitus Type 2 (HCC) 05/19/2017 Screening Mammogram Average Risk Patient 05/19/2017 Failure Heart (HCC) 06/30/2017 Cardiomyopathy Dilated (HCC) 07/02/2017 Dyslipidemia 07/02/2017 Pain Low Back Acute 07/19/2017 Pain Low Back Acute 07/19/2017 Cardiomyopathy Dilated (HCC) 07/28/2017 Cardiomyopathy Dilated (HCC) 12/28/2017 Cardiomyopathy Dilated (HCC) 12/30/2017 Dyslipidemia 12/30/2017 Deficiency Estrogen Post Menopausal 01/05/2018 Screening Mammogram Average Risk Patient 01/05/2018 Screening Mammogram Breast Cancer 05/12/2018 Herpes Zoster 09/23/2018 Insect Bite (Includes Tick) Nonvenomous Abdominal Wall Initial 09/23/2018 Neuralgia Post Herpetic 10/26/2018 Screening Examination Diabetes Mellitus 12/14/2018 Monitoring For Therapeutic Drug Therapy 12/14/2018 Screening Mammogram Breast Cancer 08/23/2019 Infection Upper Respiratory 09/28/2019 Infection Upper Respiratory 11/25/2019 Deficiency Estrogen Post Menopausal 02/12/2020 Screening Examination Diabetes Mellitus 02/12/2020 Monitoring For Therapeutic Drug Therapy 02/12/2020 Personal History Of Infectious And Parasitic Disease (COVID-19) 05/16/2020 Radiculopathy Lumbar 05/16/2020 Pain Low Back Unspecified 05/16/2020 Cardiomyopathy Dilated (HCC) 05/16/2020 Chronic Kidney Disease (CKD), Stage 3 Unspecified (HCC) 05/16/2020 Cardiomyopathy Dilated (HCC) 05/17/2020 Pain Low Back Unspecified 05/17/2020 Cardiomyopathy Dilated (HCC) 05/27/2020 Screening Mammogram Breast Cancer 11/12/2020 Deficiency Estrogen Post Menopausal 11/12/2020 Screening Cancer Colon 01/14/2021 Screening Cancer Colon 01/14/2021 Monitoring For Therapeutic Drug Therapy 05/07/2021 Migraine Headache 06/26/2021 Chronic Kidney Disease (CKD), Stage 3 Unspecified (HCC) 06/26/2021 Hyperlipidemia On Treatment 06/26/2021 Rash 06/26/2021 Hypertensive Chronic Kidney Disease (CKD) Stage 3a Glomerular Filtration Rate (GFR) 45 To 59 06/26/2021 Deficiency Estrogen Post Menopausal 08/12/2021 Lumbago With Sciatica Left Side 08/19/2021 Lumbago With Sciatica Left Side 10/16/2021 Procedure And Treatment Not Carried Out Due To Patient Leaving Prior To Being Seen By Health Care Provider 11/04/2021 Hypertensive Chronic Kidney Disease (CKD) Stage 3a Glomerular Filtration Rate (GFR) 45 To 59 11/06/2021 Hyperlipidemia On Treatment 11/06/2021 Maintenance Health Adult 11/06/2021 Screening Examination Diabetes Mellitus 11/06/2021 Radiculopathy Lumbar Fifth Left 11/06/2021 Radiculopathy Sacral 11/06/2021 Cardiomyopathy Dilated (HCC) 11/06/2021 Hypertensive Chronic Kidney Disease (CKD) Stage 3a Glomerular Filtration Rate (GFR) 45 To 59 11/06/2021 Hyperlipidemia On Treatment 11/06/2021 Screening Examination Diabetes Mellitus 11/06/2021 Maintenance Health Adult 11/06/2021 Radiculopathy Sacral 12/09/2021 Radiculopathy Lumbar Fifth Left 12/09/2021 Cardiomyopathy Dilated (HCC) 12/09/2021 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 Glomerular Filtration Rate (GFR) 45 To 59 (HCC) 12/09/2021 Screening Colon Cancer Average Risk 12/09/2021 Pain Foot Left 12/09/2021 Maintenance Health Adult 12/09/2021 Screening Colon Cancer Average Risk 12/10/2021 Lumbago With Sciatica Left Side 12/17/2021 Spondylolysis Lumbar Region 12/17/2021 Spinal Stenosis Lumbar Region Without Neurogenic Claudication 12/17/2021 Lumbago With Sciatica Left Side 12/25/2021 Spondylolysis Lumbar Region 12/25/2021 Cardiomyopathy Dilated (HCC) 12/30/2021 Irregular Pulse 12/30/2021 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 Glomerular Filtration Rate (GFR) 45 To 59 (HCC) 12/30/2021 Cardiomyopathy Dilated (HCC) 12/30/2021 Irregular Pulse 12/30/2021 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 Glomerular Filtration Rate (GFR) 45 To 59 (HCC) 12/30/2021 Atrial Fibrillation Other Persistent (HCC) 12/30/2021 Atrial Fibrillation Unspecified (HCC) 01/06/2022 [employer] (Current) Anticoagulant Treatment 01/06/2022 Atrial Fibrillation Unspecified (HCC) 01/07/2022 Monitoring For Therapeutic Drug Therapy 01/07/2022 Jail (Current) Anticoagulant Treatment 01/07/2022 Atrial Fibrillation Unspecified (HCC) 01/12/2022 Monitoring For Therapeutic Drug Therapy 01/12/2022 Jail (Current) Anticoagulant Treatment 01/12/2022 Atrial Fibrillation Unspecified (HCC) 01/12/2022 Monitoring For Therapeutic Drug Therapy 01/12/2022 [employer] (Current) Anticoagulant Treatment 01/12/2022 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 01/14/2022 Radiculopathy Lumbosacral 01/14/2022 Atrial Fibrillation Unspecified (HCC) 01/15/2022 Monitoring For Therapeutic Drug Therapy 01/15/2022 [employer] (Current) Anticoagulant Treatment 01/15/2022 Atrial Fibrillation Unspecified (HCC) 01/15/2022 Monitoring For Therapeutic Drug Therapy 01/15/2022 Jail (Current) Anticoagulant Treatment 01/15/2022 Atrial Fibrillation Unspecified (HCC) 01/16/2022 Monitoring For Therapeutic Drug Therapy 01/16/2022 [employer] (Current) Anticoagulant Treatment 01/16/2022 Atrial Fibrillation Unspecified (HCC) 01/23/2022 Monitoring For Therapeutic Drug Therapy 01/23/2022 Jail (Current) Anticoagulant Treatment 01/23/2022 Atrial Fibrillation Unspecified (HCC) 01/23/2022 Monitoring For Therapeutic Drug Therapy 01/23/2022 [employer] (Current) Anticoagulant Treatment 01/23/2022 Atrial Fibrillation Unspecified (HCC) 02/02/2022 Monitoring For Therapeutic Drug Therapy 02/02/2022 Jail (Current) Anticoagulant Treatment 02/02/2022 Atrial Fibrillation Unspecified (HCC) 02/02/2022 Monitoring For Therapeutic Drug Therapy 02/02/2022 Jail (Current) Anticoagulant Treatment 02/02/2022 Atrial Fibrillation Unspecified (HCC) 02/03/2022 Monitoring For Therapeutic Drug Therapy 02/03/2022 [employer] (Current) Anticoagulant Treatment 02/03/2022 Atrial Fibrillation Unspecified (HCC) 02/06/2022 Monitoring For Therapeutic Drug Therapy 02/06/2022 Jail (Current) Anticoagulant Treatment 02/06/2022 Atrial Fibrillation Unspecified (HCC) 02/09/2022 Monitoring For Therapeutic Drug Therapy 02/09/2022 [employer] (Current) Anticoagulant Treatment 02/09/2022 Atrial Fibrillation Unspecified (HCC) 02/13/2022 Monitoring For Therapeutic Drug Therapy 02/13/2022 [employer] (Current) Anticoagulant Treatment 02/13/2022 Atrial Fibrillation Unspecified (HCC) 02/13/2022 Monitoring For Therapeutic Drug Therapy 02/13/2022 [employer] (Current) Anticoagulant Treatment 02/13/2022 Atrial Fibrillation Unspecified (HCC) 02/20/2022 Monitoring For Therapeutic Drug Therapy 02/20/2022 [employer] (Current) Anticoagulant Treatment 02/20/2022 Atrial Fibrillation Unspecified (HCC) 02/20/2022 Monitoring For Therapeutic Drug Therapy 02/20/2022 Jail (Current) Anticoagulant Treatment 02/20/2022 Atrial Fibrillation Unspecified (HCC) 03/06/2022 Monitoring For Therapeutic Drug Therapy 03/06/2022 [employer] (Current) Anticoagulant Treatment 03/06/2022 Atrial Fibrillation Unspecified (HCC) 03/06/2022 Monitoring For Therapeutic Drug Therapy 03/06/2022 Jail (Current) Anticoagulant Treatment 03/06/2022 Atrial Fibrillation Unspecified (HCC) 03/16/2022 Monitoring For Therapeutic Drug Therapy 03/16/2022 [employer] (Current) Anticoagulant Treatment 03/16/2022 Atrial Fibrillation Unspecified (HCC) 03/16/2022 Monitoring For Therapeutic Drug Therapy 03/16/2022 [employer] (Current) Anticoagulant Treatment 03/16/2022 Atrial Fibrillation Unspecified (HCC) 03/24/2022 Monitoring For Therapeutic Drug Therapy 03/24/2022 Jail (Current) Anticoagulant Treatment 03/24/2022 Atrial Fibrillation Unspecified (HCC) 03/24/2022 Monitoring For Therapeutic Drug Therapy 03/24/2022 [employer] (Current) Anticoagulant Treatment 03/24/2022 Atrial Fibrillation Unspecified (HCC) 03/27/2022 Monitoring For Therapeutic Drug Therapy 03/27/2022 Jail (Current) Anticoagulant Treatment 03/27/2022 Atrial Fibrillation Unspecified (HCC) 03/31/2022 Monitoring For Therapeutic Drug Therapy 03/31/2022 Jail (Current) Anticoagulant Treatment 03/31/2022 Atrial Fibrillation Unspecified (HCC) 03/31/2022 Monitoring For Therapeutic Drug Therapy 03/31/2022 Jail (Current) Anticoagulant Treatment 03/31/2022 Atrial Fibrillation Unspecified (HCC) 04/07/2022 Monitoring For Therapeutic Drug Therapy 04/07/2022 Jail (Current) Anticoagulant Treatment 04/07/2022 Atrial Fibrillation Unspecified (HCC) 04/07/2022 Monitoring For Therapeutic Drug Therapy 04/07/2022 Jail (Current) Anticoagulant Treatment 04/07/2022 Atrial Fibrillation Other Persistent (HCC) 04/07/2022 Atrial Fibrillation Unspecified (HCC) 04/21/2022 Atrial Fibrillation Unspecified (HCC) 04/21/2022 Monitoring For Therapeutic Drug Therapy 04/21/2022 [employer] (Current) Anticoagulant Treatment 04/21/2022 Atrial Fibrillation Unspecified (HCC) 04/21/2022 Monitoring For Therapeutic Drug Therapy 04/21/2022 [employer] (Current) Anticoagulant Treatment 04/21/2022 Atrial Fibrillation Unspecified (HCC) 04/28/2022 Monitoring For Therapeutic Drug Therapy 04/28/2022 [employer] (Current) Anticoagulant Treatment 04/28/2022 Atrial Fibrillation Unspecified (HCC) 04/28/2022 Monitoring For Therapeutic Drug Therapy 04/28/2022 Jail (Current) Anticoagulant Treatment 04/28/2022 Atrial Fibrillation Unspecified (HCC) 04/29/2022 Monitoring For Therapeutic Drug Therapy 04/29/2022 [employer] (Current) Anticoagulant Treatment 04/29/2022 Deficiency Estrogen Post Menopausal 05/12/2022 Atrial Fibrillation Unspecified (HCC) 05/12/2022 Monitoring For Therapeutic Drug Therapy 05/12/2022 [employer] (Current) Anticoagulant Treatment 05/12/2022 Atrial Fibrillation Unspecified (HCC) 05/12/2022 Monitoring For Therapeutic Drug Therapy 05/12/2022 Jail (Current) Anticoagulant Treatment 05/12/2022 Cardiomyopathy Dilated (HCC) 06/01/2022 Atrial Fibrillation Unspecified (HCC) 06/03/2022 Jail (Current) Anticoagulant Treatment 06/03/2022 Cardiomyopathy Dilated (HCC) 06/03/2022 Hyperlipidemia On Treatment 06/03/2022 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 Glomerular Filtration Rate (GFR) 45 To 59 (HCC) 06/03/2022 Atrial Fibrillation Unspecified (HCC) 06/09/2022 Monitoring For Therapeutic Drug Therapy 06/09/2022 Jail (Current) Anticoagulant Treatment 06/09/2022 Atrial Fibrillation Unspecified (HCC) 06/09/2022 Monitoring For Therapeutic Drug Therapy 06/09/2022 [employer] (Current) Anticoagulant Treatment 06/09/2022 Atrial Fibrillation Unspecified (HCC) 06/15/2022 Monitoring For Therapeutic Drug Therapy 06/15/2022 [employer] (Current) Anticoagulant Treatment 06/15/2022 Atrial Fibrillation Unspecified (HCC) 06/15/2022 Monitoring For Therapeutic Drug Therapy 06/15/2022 Jail (Current) Anticoagulant Treatment 06/15/2022 Atrial Fibrillation Unspecified (HCC) 06/19/2022 Monitoring For Therapeutic Drug Therapy 06/19/2022 [employer] (Current) Anticoagulant Treatment 06/19/2022 Atrial Fibrillation Unspecified (HCC) 06/19/2022 Monitoring For Therapeutic Drug Therapy 06/19/2022 Jail (Current) Anticoagulant Treatment 06/19/2022 Atrial Fibrillation Unspecified (HCC) 06/29/2022 Monitoring For Therapeutic Drug Therapy 06/29/2022 [employer] (Current) Anticoagulant Treatment 06/29/2022 Atrial Fibrillation Unspecified (HCC) 06/29/2022 Monitoring For Therapeutic Drug Therapy 06/29/2022 Jail (Current) Anticoagulant Treatment 06/29/2022 Atrial Fibrillation Unspecified (HCC) 07/27/2022 Monitoring For Therapeutic Drug Therapy 07/27/2022 Jail (Current) Anticoagulant Treatment 07/27/2022 Atrial Fibrillation Unspecified (HCC) 07/27/2022 Monitoring For Therapeutic Drug Therapy 07/27/2022 Jail (Current) Anticoagulant Treatment 07/27/2022 Atrial Fibrillation Unspecified (HCC) 08/07/2022 Monitoring For Therapeutic Drug Therapy 08/07/2022 [employer] (Current) Anticoagulant Treatment 08/07/2022 Atrial Fibrillation Unspecified (HCC) 08/10/2022 Monitoring For Therapeutic Drug Therapy 08/10/2022 [employer] (Current) Anticoagulant Treatment 08/10/2022 Atrial Fibrillation Unspecified (HCC) 08/10/2022 Monitoring For Therapeutic Drug Therapy 08/10/2022 [employer] (Current) Anticoagulant Treatment 08/10/2022 Monitoring For Therapeutic Drug Therapy 08/12/2022 Laceration Blood Vessel Left Index Finger Sequela 08/31/2022 Atrial Fibrillation Paroxysmal (HCC) 09/01/2022 Jail (Current) Anticoagulant Treatment 09/01/2022 Bradycardia 09/01/2022 Cardiomyopathy Dilated (HCC) 09/01/2022 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 Glomerular Filtration Rate (GFR) 45 To 59 (HCC) 09/01/2022 Atrial Fibrillation Unspecified (HCC) 09/03/2022 Monitoring For Therapeutic Drug Therapy 09/03/2022 Jail (Current) Anticoagulant Treatment 09/03/2022 Atrial Fibrillation Paroxysmal (HCC) 09/03/2022 Monitoring For Therapeutic Drug Therapy 09/03/2022 Jail (Current) Anticoagulant Treatment 09/03/2022 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 Glomerular Filtration Rate (GFR) 45 To 59 (HCC) 09/17/2022 Monitoring For Therapeutic Drug Therapy 09/17/2022 Atrial Fibrillation Paroxysmal (HCC) 09/17/2022 Monitoring For Therapeutic Drug Therapy 09/17/2022 Atrial Fibrillation Paroxysmal (HCC) 09/17/2022 Monitoring For Therapeutic Drug Therapy 09/17/2022 [employer] (Current) Anticoagulant Treatment 09/17/2022 Atrial Fibrillation Paroxysmal (HCC) 10/01/2022 Monitoring For Therapeutic Drug Therapy 10/01/2022 Jail (Current) Anticoagulant Treatment 10/01/2022 Atrial Fibrillation Paroxysmal (HCC) 10/02/2022 [employer] (Current) Anticoagulant Treatment 10/02/2022 Monitoring For Therapeutic Drug Therapy 10/02/2022 Atrial Fibrillation Paroxysmal (HCC) 10/02/2022 Monitoring For Therapeutic Drug Therapy 10/02/2022 [employer] (Current) Anticoagulant Treatment 10/02/2022 Atrial Fibrillation Paroxysmal (HCC) 10/12/2022 Monitoring For Therapeutic Drug Therapy 10/12/2022 Jail (Current) Anticoagulant Treatment 10/12/2022 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 Glomerular Filtration Rate (GFR) 45 To 59 ([facility] 10/12/2022 Atrial Fibrillation Paroxysmal (HCC) 10/12/2022 Monitoring For Therapeutic Drug Therapy 10/12/2022 Jail (Current) Anticoagulant Treatment 10/12/2022 Atrial Fibrillation Paroxysmal (HCC) 10/21/2022 Monitoring For Therapeutic Drug Therapy 10/21/2022 Jail (Current) Anticoagulant Treatment 10/21/2022 Atrial Fibrillation Paroxysmal (HCC) 10/27/2022 Monitoring For Therapeutic Drug Therapy 10/27/2022 [employer] (Current) Anticoagulant Treatment 10/27/2022 Atrial Fibrillation Paroxysmal (HCC) 10/28/2022 Monitoring For Therapeutic Drug Therapy 10/28/2022 Jail (Current) Anticoagulant Treatment 10/28/2022 Atrial Fibrillation Paroxysmal (HCC) 11/04/2022 Monitoring For Therapeutic Drug Therapy 11/04/2022 [employer] (Current) Anticoagulant Treatment 11/04/2022 Atrial Fibrillation Paroxysmal (HCC) 11/04/2022 Monitoring For Therapeutic Drug Therapy 11/04/2022 [employer] (Current) Anticoagulant Treatment 11/04/2022 Atrial Fibrillation Paroxysmal (HCC) 11/10/2022 Monitoring For Therapeutic Drug Therapy 11/10/2022 [employer] (Current) Anticoagulant Treatment 11/10/2022 Atrial Fibrillation Paroxysmal (HCC) 11/10/2022 Monitoring For Therapeutic Drug Therapy 11/10/2022 [employer] (Current) Anticoagulant Treatment 11/10/2022 Atrial Fibrillation Paroxysmal (HCC) 11/17/2022 Monitoring For Therapeutic Drug Therapy 11/17/2022 Jail (Current) Anticoagulant Treatment 11/17/2022 Atrial Fibrillation Paroxysmal (HCC) 11/17/2022 Monitoring For Therapeutic Drug Therapy 11/17/2022 Jail (Current) Anticoagulant Treatment 11/17/2022 Atrial Fibrillation Paroxysmal (HCC) 12/15/2022 Monitoring For Therapeutic Drug Therapy 12/15/2022 Jail (Current) Anticoagulant Treatment 12/15/2022 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 Glomerular Filtration Rate (GFR) 45 To 59 (HCC) 12/15/2022 Atrial Fibrillation Paroxysmal (HCC) 12/15/2022 Monitoring For Therapeutic Drug Therapy 12/15/2022 Jail (Current) Anticoagulant Treatment 12/15/2022 Atrial Fibrillation Paroxysmal (HCC) 01/26/2023 Monitoring For Therapeutic Drug Therapy 01/26/2023 [employer] (Current) Anticoagulant Treatment 01/26/2023 Atrial Fibrillation Paroxysmal (HCC) 01/26/2023 Monitoring For Therapeutic Drug Therapy 01/26/2023 Jail (Current) Anticoagulant Treatment 01/26/2023 Atrial Fibrillation Paroxysmal (HCC) 02/02/2023 Monitoring For Therapeutic Drug Therapy 02/02/2023 [employer] (Current) Anticoagulant Treatment 02/02/2023 Atrial Fibrillation Paroxysmal (HCC) 02/02/2023 Monitoring For Therapeutic Drug Therapy 02/02/2023 Jail (Current) Anticoagulant Treatment 02/02/2023 Atrial Fibrillation Paroxysmal (HCC) 02/16/2023 Monitoring For Therapeutic Drug Therapy 02/16/2023 [employer] (Current) Anticoagulant Treatment 02/16/2023 Atrial Fibrillation Paroxysmal (HCC) 02/16/2023 Monitoring For Therapeutic Drug Therapy 02/16/2023 [employer] (Current) Anticoagulant Treatment 02/16/2023 Atrial Fibrillation Paroxysmal (HCC) 02/24/2023 Monitoring For Therapeutic Drug Therapy 02/24/2023 Jail (Current) Anticoagulant Treatment 02/24/2023 COVID-19 Infection 02/24/2023 ERRONEOUS ENCOUNTER--DISREGARD 02/24/2023 Atrial Fibrillation Paroxysmal (HCC) 02/25/2023 Monitoring For Therapeutic Drug Therapy 02/25/2023 [employer] (Current) Anticoagulant Treatment 02/25/2023 Atrial Fibrillation Paroxysmal (HCC) 03/05/2023 Monitoring For Therapeutic Drug Therapy 03/05/2023 Jail (Current) Anticoagulant Treatment 03/05/2023 Atrial Fibrillation Paroxysmal (HCC) 03/05/2023 Monitoring For Therapeutic Drug Therapy 03/05/2023 [employer] (Current) Anticoagulant Treatment 03/05/2023 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 Glomerular Filtration Rate (GFR) 45 To 59 (HCC) 03/05/2023 Hyperlipidemia On Treatment 03/05/2023 Atrial Fibrillation Paroxysmal (HCC) 03/09/2023 Monitoring For Therapeutic Drug Therapy 03/09/2023 [employer] (Current) Anticoagulant Treatment 03/09/2023 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 Glomerular Filtration Rate (GFR) 45 To 59 (HCC) 03/09/2023 Hyperlipidemia On Treatment 03/09/2023 Atrial Fibrillation Paroxysmal (HCC) 03/09/2023 Monitoring For Therapeutic Drug Therapy 03/09/2023 [employer] (Current) Anticoagulant Treatment 03/09/2023 Atrial Fibrillation Paroxysmal (HCC) 03/12/2023 Monitoring For Therapeutic Drug Therapy 03/12/2023 Jail (Current) Anticoagulant Treatment 03/12/2023 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 Glomerular Filtration Rate (GFR) 45 To 59 (HCC) 03/12/2023 Hyperlipidemia On Treatment 03/12/2023 Atrial Fibrillation Paroxysmal (HCC) 03/12/2023 Monitoring For Therapeutic Drug Therapy 03/12/2023 [employer] (Current) Anticoagulant Treatment 03/12/2023 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 Glomerular Filtration Rate (GFR) 45 To 59 (HCC) 03/19/2023 Hyperlipidemia On Treatment 03/19/2023 Atrial Fibrillation Paroxysmal (HCC) 03/19/2023 Monitoring For Therapeutic Drug Therapy 03/19/2023 Jail (Current) Anticoagulant Treatment 03/19/2023 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 Glomerular Filtration Rate (GFR) 45 To 59 (HCC) 03/19/2023 Monitoring For Therapeutic Drug Therapy 03/19/2023 Atrial Fibrillation Paroxysmal (HCC) 03/19/2023 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 Glomerular Filtration Rate (GFR) 45 To 59 (HCC) 03/19/2023 Monitoring For Therapeutic Drug Therapy 03/19/2023 Atrial Fibrillation Paroxysmal (HCC) 03/19/2023 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 Glomerular Filtration Rate (GFR) 45 To 59 (HCC) 04/02/2023 Hyperlipidemia On Treatment 04/02/2023 Atrial Fibrillation Paroxysmal (HCC) 04/02/2023 Monitoring For Therapeutic Drug Therapy 04/02/2023 Jail (Current) Anticoagulant Treatment 04/02/2023 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 Glomerular Filtration Rate (GFR) 45 To 59 (HCC) 04/02/2023 Hyperlipidemia On Treatment 04/02/2023 Atrial Fibrillation Paroxysmal (HCC) 04/02/2023 Monitoring For Therapeutic Drug Therapy 04/02/2023 [employer] (Current) Anticoagulant Treatment 04/02/2023 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 Glomerular Filtration Rate (GFR) 45 To 59 (HCC) 04/27/2023 Atrial Fibrillation Paroxysmal (HCC) 04/27/2023 Dermatitis Perioral 04/27/2023 Allergy Unspecified Initial 04/27/2023 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 Glomerular Filtration Rate (GFR) 45 To 59 (HCC) 04/30/2023 Hyperlipidemia On Treatment 04/30/2023 Atrial Fibrillation Paroxysmal (HCC) 04/30/2023 Monitoring For Therapeutic Drug Therapy 04/30/2023 Jail (Current) Anticoagulant Treatment 04/30/2023 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 Glomerular Filtration Rate (GFR) 45 To 59 (HCC) 04/30/2023 Hyperlipidemia On Treatment 04/30/2023 Atrial Fibrillation Paroxysmal (HCC) 04/30/2023 Monitoring For Therapeutic Drug Therapy 04/30/2023 [employer] (Current) Anticoagulant Treatment 04/30/2023 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 Glomerular Filtration Rate (GFR) 45 To 59 (HCC) 05/07/2023 Hyperlipidemia On Treatment 05/07/2023 Atrial Fibrillation Paroxysmal (HCC) 05/07/2023 Monitoring For Therapeutic Drug Therapy 05/07/2023 [employer] (Current) Anticoagulant Treatment 05/07/2023 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 Glomerular Filtration Rate (GFR) 45 To 59 (HCC) 05/07/2023 Hyperlipidemia On Treatment 05/07/2023 Atrial Fibrillation Paroxysmal (HCC) 05/07/2023 Monitoring For Therapeutic Drug Therapy 05/07/2023 Jail (Current) Anticoagulant Treatment 05/07/2023 Atrial Fibrillation Paroxysmal (HCC) 05/21/2023 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 Glomerular Filtration Rate (GFR) 45 To 59 (HCC) 05/21/2023 Hyperlipidemia On Treatment 05/21/2023 Atrial Fibrillation Paroxysmal (HCC) 05/21/2023 Monitoring For Therapeutic Drug Therapy 05/21/2023 [employer] (Current) Anticoagulant Treatment 05/21/2023 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 Glomerular Filtration Rate (GFR) 45 To 59 (HCC) 05/27/2023 Hyperlipidemia On Treatment 05/27/2023 Atrial Fibrillation Paroxysmal (HCC) 05/27/2023 Monitoring For Therapeutic Drug Therapy 05/27/2023 [employer] (Current) Anticoagulant Treatment 05/27/2023 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 Glomerular Filtration Rate (GFR) 45 To 59 (HCC) 05/27/2023 Hyperlipidemia On Treatment 05/27/2023 Atrial Fibrillation Paroxysmal (HCC) 05/27/2023 Monitoring For Therapeutic Drug Therapy 05/27/2023 [employer] (Current) Anticoagulant Treatment 05/27/2023 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 Glomerular Filtration Rate (GFR) 45 To 59 (HCC) 06/03/2023 Hyperlipidemia On Treatment 06/03/2023 Atrial Fibrillation Paroxysmal (HCC) 06/03/2023 Monitoring For Therapeutic Drug Therapy 06/03/2023 Jail (Current) Anticoagulant Treatment 06/03/2023 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 Glomerular Filtration Rate (GFR) 45 To 59 (HCC) 06/03/2023 Hyperlipidemia On Treatment 06/03/2023 Atrial Fibrillation Paroxysmal (HCC) 06/03/2023 Monitoring For Therapeutic Drug Therapy 06/03/2023 [employer] (Current) Anticoagulant Treatment 06/03/2023 Atrial Fibrillation Paroxysmal (HCC) 06/22/2023 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 Glomerular Filtration Rate (GFR) 45 To 59 (HCC) 06/22/2023 Hyperlipidemia On Treatment 06/22/2023 Atrial Fibrillation Paroxysmal (HCC) 06/22/2023 Monitoring For Therapeutic Drug Therapy 06/22/2023 Jail (Current) Anticoagulant Treatment 06/22/2023 Atrial Fibrillation Unspecified (HCC) 06/22/2023 Atrial Fibrillation Paroxysmal (HCC) 06/22/2023 [employer] (Current) Anticoagulant Treatment 06/22/2023 Monitoring For Therapeutic Drug Therapy 06/22/2023 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 Glomerular Filtration Rate (GFR) 45 To 59 (HCC) 06/22/2023 Hyperlipidemia On Treatment 06/22/2023 Screening Examination Diabetes Mellitus 06/22/2023 Atrial Fibrillation Paroxysmal (HCC) 06/24/2023 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 Glomerular Filtration Rate (GFR) 45 To 59 (HCC) 06/24/2023 Hyperlipidemia On Treatment 06/24/2023 Monitoring For Therapeutic Drug Therapy 06/24/2023 Jail (Current) Anticoagulant Treatment 06/24/2023 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 Glomerular Filtration Rate (GFR) 45 To 59 (HCC) 07/02/2023 Atrial Fibrillation Paroxysmal (HCC) 07/06/2023 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 Glomerular Filtration Rate (GFR) 45 To 59 (HCC) 07/06/2023 Screening Examination Diabetes Mellitus 07/06/2023 Hyperlipidemia On Treatment 07/06/2023 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 Glomerular Filtration Rate (GFR) 45 To 59 (HCC) 07/06/2023 Hyperlipidemia On Treatment 07/06/2023 Atrial Fibrillation Paroxysmal (HCC) 07/06/2023 Monitoring For Therapeutic Drug Therapy 07/06/2023 [employer] (Current) Anticoagulant Treatment 07/06/2023 Atrial Fibrillation Paroxysmal (HCC) 07/06/2023 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 Glomerular Filtration Rate (GFR) 45 To 59 (HCC) 07/06/2023 Hyperlipidemia On Treatment 07/06/2023 Monitoring For Therapeutic Drug Therapy 07/06/2023 [employer] (Current) Anticoagulant Treatment 07/06/2023 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 Glomerular Filtration Rate (GFR) 45 To 59 (HCC) 08/05/2023 Hyperlipidemia On Treatment 08/05/2023 Atrial Fibrillation Paroxysmal (HCC) 08/05/2023 Monitoring For Therapeutic Drug Therapy 08/05/2023 [employer] (Current) Anticoagulant Treatment 08/05/2023 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 Glomerular Filtration Rate (GFR) 45 To 59 (HCC) 08/06/2023 Hyperlipidemia On Treatment 08/06/2023 Atrial Fibrillation Paroxysmal (HCC) 08/06/2023 Monitoring For Therapeutic Drug Therapy 08/06/2023 [employer] (Current) Anticoagulant Treatment 08/06/2023 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 Glomerular Filtration Rate (GFR) 45 To 59 (HCC) 08/13/2023 Hyperlipidemia On Treatment 08/13/2023 Atrial Fibrillation Paroxysmal (HCC) 08/13/2023 Monitoring For Therapeutic Drug Therapy 08/13/2023 Jail (Current) Anticoagulant Treatment 08/13/2023 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 Glomerular Filtration Rate (GFR) 45 To 59 (HCC) 08/16/2023 Hyperlipidemia On Treatment 08/16/2023 Atrial Fibrillation Paroxysmal (HCC) 08/16/2023 Monitoring For Therapeutic Drug Therapy 08/16/2023 Jail (Current) Anticoagulant Treatment 08/16/2023 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 Glomerular Filtration Rate (GFR) 45 To 59 (HCC) 08/17/2023 Hyperlipidemia On Treatment 08/17/2023 Atrial Fibrillation Paroxysmal (HCC) 08/17/2023 Monitoring For Therapeutic Drug Therapy 08/17/2023 Jail (Current) Anticoagulant Treatment 08/17/2023 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 Glomerular Filtration Rate (GFR) 45 To 59 (HCC) 08/24/2023 Hyperlipidemia On Treatment 08/24/2023 Atrial Fibrillation Paroxysmal (HCC) 08/24/2023 Monitoring For Therapeutic Drug Therapy 08/24/2023 [employer] (Current) Anticoagulant Treatment 08/24/2023 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 Glomerular Filtration Rate (GFR) 45 To 59 (HCC) 08/24/2023 Hyperlipidemia On Treatment 08/24/2023 Atrial Fibrillation Paroxysmal (HCC) 08/24/2023 Monitoring For Therapeutic Drug Therapy 08/24/2023 [employer] (Current) Anticoagulant Treatment 08/24/2023 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 Glomerular Filtration Rate (GFR) 45 To 59 (HCC) 08/27/2023 Hyperlipidemia On Treatment 08/27/2023 Atrial Fibrillation Paroxysmal (HCC) 08/27/2023 Monitoring For Therapeutic Drug Therapy 08/27/2023 [employer] (Current) Anticoagulant Treatment 08/27/2023 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 Glomerular Filtration Rate (GFR) 45 To 59 (HCC) 08/27/2023 Hyperlipidemia On Treatment 08/27/2023 Atrial Fibrillation Paroxysmal (HCC) 08/27/2023 Monitoring For Therapeutic Drug Therapy 08/27/2023 [employer] (Current) Anticoagulant Treatment 08/27/2023 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 Glomerular Filtration Rate (GFR) 45 To 59 (HCC) 09/02/2023 Hyperlipidemia On Treatment 09/02/2023 Atrial Fibrillation Paroxysmal (HCC) 09/02/2023 Monitoring For Therapeutic Drug Therapy 09/02/2023 [employer] (Current) Anticoagulant Treatment 09/02/2023 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 Glomerular Filtration Rate (GFR) 45 To 59 (HCC) 09/02/2023 Hyperlipidemia On Treatment 09/02/2023 Atrial Fibrillation Paroxysmal (HCC) 09/02/2023 Monitoring For Therapeutic Drug Therapy 09/02/2023 [employer] (Current) Anticoagulant Treatment 09/02/2023 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 Glomerular Filtration Rate (GFR) 45 To 59 (HCC) 09/08/2023 Hyperlipidemia On Treatment 09/08/2023 Atrial Fibrillation Paroxysmal (HCC) 09/08/2023 Monitoring For Therapeutic Drug Therapy 09/08/2023 Jail (Current) Anticoagulant Treatment 09/08/2023 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 Glomerular Filtration Rate (GFR) 45 To 59 (HCC) 09/08/2023 Hyperlipidemia On Treatment 09/08/2023 Atrial Fibrillation Paroxysmal (HCC) 09/08/2023 Monitoring For Therapeutic Drug Therapy 09/08/2023 Jail (Current) Anticoagulant Treatment 09/08/2023 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 Glomerular Filtration Rate (GFR) 45 To 59 (HCC) 09/14/2023 Hyperlipidemia On Treatment 09/14/2023 Atrial Fibrillation Paroxysmal (HCC) 09/14/2023 Monitoring For Therapeutic Drug Therapy 09/14/2023 [employer] (Current) Anticoagulant Treatment 09/14/2023 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 Glomerular Filtration Rate (GFR) 45 To 59 (HCC) 09/14/2023 Hyperlipidemia On Treatment 09/14/2023 Atrial Fibrillation Paroxysmal (HCC) 09/14/2023 Monitoring For Therapeutic Drug Therapy 09/14/2023 Jail (Current) Anticoagulant Treatment 09/14/2023 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 Glomerular Filtration Rate (GFR) 45 To 59 (HCC) 09/21/2023 Hyperlipidemia On Treatment 09/21/2023 Atrial Fibrillation Paroxysmal (HCC) 09/21/2023 Monitoring For Therapeutic Drug Therapy 09/21/2023 Jail (Current) Anticoagulant Treatment 09/21/2023 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 Glomerular Filtration Rate (GFR) 45 To 59 (HCC) 09/21/2023 Hyperlipidemia On Treatment 09/21/2023 Atrial Fibrillation Paroxysmal (HCC) 09/21/2023 Monitoring For Therapeutic Drug Therapy 09/21/2023 Jail (Current) Anticoagulant Treatment 09/21/2023 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 Glomerular Filtration Rate (GFR) 45 To 59 (HCC) 09/24/2023 Hyperlipidemia On Treatment 09/24/2023 Atrial Fibrillation Paroxysmal (HCC) 09/24/2023 Monitoring For Therapeutic Drug Therapy 09/24/2023 [employer] (Current) Anticoagulant Treatment 09/24/2023 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 Glomerular Filtration Rate (GFR) 45 To 59 (HCC) 09/24/2023 Hyperlipidemia On Treatment 09/24/2023 Atrial Fibrillation Paroxysmal (HCC) 09/24/2023 Monitoring For Therapeutic Drug Therapy 09/24/2023 Experimental Plastics Fabricator (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) Anticoagulant Treatment 09/24/2023 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 Glomerular Filtration Rate (GFR) 45 To 59 (HCC) 10/01/2023 Hyperlipidemia On Treatment 10/01/2023 Atrial Fibrillation Paroxysmal (HCC) 10/01/2023 Monitoring For Therapeutic Drug Therapy 10/01/2023 Jail (Current) Anticoagulant Treatment 10/01/2023 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 Or Unspecified Chronic Kidney Disease (HCC) 10/04/2023 Hyperlipidemia On Treatment 10/04/2023 Atrial Fibrillation Paroxysmal (HCC) 10/04/2023 Monitoring For Therapeutic Drug Therapy 10/04/2023 Experimental Plastics Fabricator (Current) Anticoagulant Treatment 10/04/2023 Atrial Fibrillation Paroxysmal (HCC) 10/07/2023 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 Or Unspecified Chronic Kidney Disease (HCC) 10/08/2023 Hyperlipidemia On Treatment 10/08/2023 Atrial Fibrillation Paroxysmal (HCC) 10/08/2023 Monitoring For Therapeutic Drug Therapy 10/08/2023 Experimental [employer]astics Fabricator (Current) Anticoagulant Treatment 10/08/2023 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 Or Unspecified Chronic Kidney Disease (HCC) 10/15/2023 Hyperlipidemia On Treatment 10/15/2023 Atrial Fibrillation Paroxysmal (HCC) 10/15/2023 Monitoring For Therapeutic Drug Therapy 10/15/2023 [employer] Fab[employer]ator (Current) Anticoagulant Treatment 10/15/2023 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 Or Unspecified Chronic Kidney Disease (HCC) 10/19/2023 Hyperlipidemia On Treatment 10/19/2023 Atrial Fibrillation Paroxysmal (HCC) 10/19/2023 Monitoring For Therapeutic Drug Therapy 10/19/2023 Jail (Current) Anticoagulant Treatment 10/19/2023 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 Or Unspecified Chronic Kidney Disease (HCC) 10/28/2023 Hyperlipidemia On Treatment 10/28/2023 Atrial Fibrillation Paroxysmal (HCC) 10/28/2023 Monitoring For Therapeutic Drug Therapy 10/28/2023 Jail (Current) Anticoagulant Treatment 10/28/2023 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 Or Unspecified Chronic Kidney Disease (HCC) 10/28/2023 Hyperlipidemia On Treatment 10/28/2023 Atrial Fibrillation Paroxysmal (HCC) 10/28/2023 Monitoring For Therapeutic Drug Therapy 10/28/2023 Experimental [employer] Fabricator (Current) Anticoagulant Treatment 10/28/2023 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 Or Unspecified Chronic Kidney Disease (HCC) 11/02/2023 Hyperlipidemia On Treatment 11/02/2023 Atrial Fibrillation Paroxysmal (HCC) 11/02/2023 Monitoring For Therapeutic Drug Therapy 11/02/2023 Jail (Current) Anticoagulant Treatment 11/02/2023 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 Or Unspecified Chronic Kidney Disease (HCC) 11/02/2023 Hyperlipidemia On Treatment 11/02/2023 Atrial Fibrillation Paroxysmal (HCC) 11/02/2023 Monitoring For Therapeutic Drug Therapy 11/02/2023 Jail (Current) Anticoagulant Treatment 11/02/2023 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 Or Unspecified Chronic Kidney Disease (HCC) 11/02/2023 Hyperlipidemia On Treatment 11/02/2023 Atrial Fibrillation Paroxysmal (HCC) 11/02/2023 Monitoring For Therapeutic Drug Therapy 11/02/2023 Jail (Current) Anticoagulant Treatment 11/02/2023 Atrial Fibrillation Paroxysmal (HCC) 11/12/2023 Monitoring For Therapeutic Drug Therapy 11/12/2023 Jail (Current) Anticoagulant Treatment 11/12/2023 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 Or Unspecified Chronic Kidney Disease (HCC) 11/12/2023 Hyperlipidemia On Treatment 11/12/2023 Atrial Fibrillation Paroxysmal (HCC) 11/12/2023 Monitoring For Therapeutic Drug Therapy 11/12/2023 Jail (Current) Anticoagulant Treatment 11/12/2023 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 Or Unspecified Chronic Kidney Disease (HCC) 11/22/2023 Hyperlipidemia On Treatment 11/22/2023 Atrial Fibrillation Paroxysmal (HCC) 11/22/2023 Monitoring For Therapeutic Drug Therapy 11/22/2023 Experimental Plastics Fabricator (Current) Anticoagulant Treatment 11/22/2023 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 Or Unspecified Chronic Kidney Disease (HCC) 11/22/2023 Hyperlipidemia On Treatment 11/22/2023 Atrial Fibrillation Paroxysmal (HCC) 11/22/2023 Monitoring For Therapeutic Drug Therapy 11/22/2023 Experimental Plastics Fabricator (Current) Anticoagulant Treatment 11/22/2023 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 Or Unspecified Chronic Kidney Disease (HCC) 12/03/2023 Hyperlipidemia On Treatment 12/03/2023 Atrial Fibrillation Paroxysmal (HCC) 12/03/2023 Monitoring For Therapeutic Drug Therapy 12/03/2023 Experimental Plastics Fabricator (Current) Anticoagulant Treatment 12/03/2023 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 Or Unspecified Chronic Kidney Disease (HCC) 12/03/2023 Hyperlipidemia On Treatment 12/03/2023 Atrial Fibrillation Paroxysmal (HCC) 12/03/2023 Monitoring For Therapeutic Drug Therapy 12/03/2023 Jail (Current) Anticoagulant Treatment 12/03/2023 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 [address] [place] [phone] PCP - General Internal Medicine 08/12/22
--- OUTSIDE RECORDS SUMMARY | 2023-12-06 08:05 | XMS_ITS | Encounter Summary ---
Author Organization [facility] Address [address] [place] [address] Care Team Providers Care Creative Services Director Name Role Phone Patrick Erickson D.O. Primary Care Provider [phone]- [phone] Reason for Visit * Reason Onset Date Comments Anticoagulation 11/02/2023 CCM Update-New P CP Encounter Details Date Type Department Care Team (Latest Contact Info) Description 11/02/2023 Clinical Communication Department of Anticoagulation in [place], [place] [address] [place] [address] Cullen Guillen, R.NHowie [address] [place] [phone] Anticoagulation (CCM Update-New PCP) Social History Tobacco Use Types Packs/Day Years Used Date Smoking Tobacco: Never Smokeless Tobacco: Never Alcohol Use Standard Drinks/Week Comments No 0 (1 standard drink = 0.6 oz pur e alcohol) [facility] Utilities Answer Date Recorded In the past 12 months has e [employer], gas, oil, or water [employer] threatened to shut off services in your [...] often do you attend chur ch or christianity services? More than 4 times per year 05/30/2022 Do you belong to any clubs o r organizations such as episcopalian groups, unions, fraternal or athletic groups, or [...] Answer Date Recorded PHQ-2 Score 0 04/27/2023 [facility] - Occupational Stress [...] your living situation today? I have a [facility] place to live 07/01/2023 Education Answer [...] Orientation Straight 12/19/2021 3: 32 AM CDT documented as of this encounter Miscellaneous Notes * Telephone Encounter - Patrick Erickson D.O. - 11/02/2023 4:53 PM CDT Yes agree with CCM enrollment Electronically signed by: Patrick Erickson D.O. 11/02/23 4:53 PM CDT * Telephone Encounter - Cullen Guillen R.N. - 11/02/2023 3:53 PM CDT Recommendation for CCM billing from Primary Care Anticoagulation Program. ACTION ITEM: Please reply with YES if you wish to proceed with enrollment in the anticoagulation program which includes billing for the service using CCM. If you do not want the patient enrolled in the anticoagulation program and you want to manage their warfarin dosing, respond no. Herminia Alberto is eligible for Chronic Care Management requiring moderate or high complexity medical decision making for two or more chronic illnesses placing the patient at significant risk of , acute exacerbation/decompensation, or functional decline It is required that a recommendation from you be documented in the medical record prior to using these billing codes for this patient. CCM allows for management of chronic conditions and reimbursement for services provided outside of [id number] office visits. If you agree with this recommendation a letter will be sent to the patient via portal or mail and the anticoagulation nursing team will follow up with the patient. Additional information related to use of specific codes and determining moderate to complex decision making (if applicable) is found here: Chronic Care Management Toolkit. Please assure your documentation as a provider supports the level of complexity recommended. documented in this encounter Plan of Treatment Upcoming Encounters Date Type Department Care Team (Latest Contact Info) Description 12/13/2023 11:50 AM CDT Appointment Department of Laboratory Medicine in [place], [place] [address] [place] [address] Patrick Erickson D.O. [address] [place] [phone] 12/13/2023 12:30 PM CDT Anticoagulation Visit Department of Anticoagulation in [place], [place] [address] [place] [address] Soheila Zapata P.A.-C., M.S. [address] [place] [address] 12/24/2023 10:10 AM CDT Appointment Department of Laboratory Medicine in [place], [place] [address] [place] [address] Patrick Erickson D.O. [address] [phone] 12/28/2023 1:00 PM CDT Office Visit Department of Internal Medicine in [place], [place] [address] [address] Patrick Erickson D.O. 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 [address] [phone] PCP - General Internal Medicine 08/12/22 documented as of this encounter
--- OUTSIDE RECORDS SUMMARY | 2023-12-06 08:05 | XMS_ITS | Encounter Summary ---
Author Organization [facility] Address [address] [place] [address] Care Team Providers Care Latex Thread Machine Operator Name Role Phone Patrick Erickson D.O. Primary Care Provider [phone]- [phone] Reason for Visit * Outpatient (Routine) - Authorized Specialty Diagnoses / Procedures Referred By Prosper t Referred To Contact Anticoagulation Soheila Zapata P.A.-C., M.S. [address] [address] [facility] Referral ID Status Reason Start Date Expiration Date V isits Requested Visits Authorized [id number] Authorized 01/07/2022 01/06/2025 300 300 Encounter Details Date Type Department Care Team (Latest Contact Info) Description 11/12/2023 12:30 PM CDT Anticoagulation Visit Department of Anticoagulation in [place], [place] [address] [place] [address] Soheila Zapata P.A.-C., M.S. 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 Or Unspecified Chronic Kidney Disease (HCC) (Primary Dx); Hyperlipidemia On Treatment; Atrial Fibrillation Paroxysmal (HCC); Monitoring For Therapeutic Drug Therapy; Long-Term (Current) Anticoagulant Treatment Social History Tobacco Use Types Packs/Day Years Used Date Smoking Tobacco: Never Smokeless Tobacco: Never Alcohol Use Standard Drinks/Week Comments No 0 (1 standard drink = 0.6 oz pur e alcohol) [facility] Utilities Answer Date Recorded In the past 12 months has e electric, gas, oil, or water company threatened to shut off services in your [...] often do you attend chur ch or caodaism services? More than 4 times per year 05/30/2022 Do you belong to any clubs o r organizations such as jew groups, unions, fraternal or athletic groups, or [...] Answer Date Recorded PHQ-2 Score 0 04/27/2023 [facility]at [facility] - Occupational Stress Questionnaire Answer Date Recorded [...] Date Recorded Dental: Regular Dentist No 11/07/19 22 Employment Answer Date Recorded Employment status Employed and actively working without restrictions 07/01/2023 Housing Stability Answer Date Recorded What is your living situation today? I have a [facility] place to live 07/01/2023 Education Answer Date [...] AM CDT documented as of this encounter Patient Instructions * Patient Instructions* Neha Varghese R.N. - 11/12/2023 12:30 PM CDT Your next INR will be 9/16. You will need to call the Anticoagulation Program for warfarin dosing at the scheduled time for your nurse visit, as indicated on your Patient Appointment Guide (PAG). To reschedule your appointment or for questions about your warfarin, please call Primary Care Anticoagulation Program at [phone] from 7:30 am to 4:30 pm. Wednesday-Wednesday . When To Contact Your Health Care Provider If you are experiencing any of the following symptoms, Call 911 or go to the emergency room: chest pain, shortness of breath, vomiting or coughing up blood, large amounts of rectal bleeding, symptomsof a stroke- sudden weakness or inability to move a body part (the face, arm or leg), difficulty speaking or trouble understanding others, sudden blurred, decreased vision, or double vision, dizziness, loss of balance /coordination or a sudden, severe headache. If you fall and or hit your head or suffer a blow to the head, seek emergency treatment. Contact your health care provider about your Warfarin dose: Before any surgical procedures (including tooth extractions) and certain non- surgical procedures (for example, colonoscopies). When you are sick with a fever or develop persistent diarrhea or vomiting. If you doubt that you took your Warfarin as directed. If you start an antibiotic or any prescription drug or if you start any herbal or other [id number]-[id number] product (check with your doctor, a nurse, or pharmacist). If you change your diet significantly. If you decide to stop or start using tobacco or alcohol. If you notice unusual bruising or bleeding. If you notice dark, tarry, or bright red stools or blood in your urine. If you have a painful and swollen calf. documented in this encounter Progress Notes * Neha Varghese R.N. - 11/12/2023 12:30 PM CDT Warfarin Maintenance Nursing Protocol Goal Range 2.0-3.0 (version approved 04/2021) Visit Type: Telephone Primary reason for visit: Routine f/u OR f/u per previous visit recommendations Information provided by:patient INR result: 2.0 Goal range: 2.0-3.0 Inclusion Criteria: All inclusion criteria met. Proceeded to exclusion criteria. Exclusion Criteria: Section 1: No Section 1 exclusion criteria, proceeded to Section 2. Section 2: No Section 2 exclusion criteria, proceeded to screening criteria. Screening Criteria: Patient has had a change in diet, lifestyle, alcohol intake, tobacco habits, health status, hospitalization, or surgery in the last 3 days: yes. Health status change: not feeling well this week. Proceeded to maintenance warfarin dosing and follow-up, but have patient return for follow-up INR in 7-10 days. Additional Info: None Previous INR was therapeutic. Today???s INR is Therapeutic. Dosing and follow up recommendation: Protocol dosing range for INR 2.0-3.0: No change in weekly dose. Currently bridging? no. Next INR in 7-10 days. per positive screening criteria. Additional dosing or follow-up information: None. Pt is on injectable anticoagulant: No. Plan used: Protocol. See Anticoagulation Track Calendar for dosing and plan details. Anticoagulation Visit Summary: Patient repeats back dosing instructions, date of next INR, and has no further questions at this time. Total time spent with patient: N/A documented in this encounter Plan of Treatment Upcoming Encounters Date Type Department Care Team (Latest Contact Info) Description 12/13/2023 11:50 AM CDT Appointment Department of Laboratory Medicine in [address] [phone] Patrick Erickson D.O. [address], [place] [phone] 12/13/2023 12:30 PM CDT Anticoagulation Visit Department of Anticoagulation in [place], [place] [address] [place] [address] Soheila Zapata P.A.-C., M.S. [address] [place] [address] 12/24/2023 10:10 AM CDT Appointment Department of Laboratory Medicine in [place], [place] [address] [place] [phone] Patrick Erickson D.O. [address], [place] [phone] 12/28/2023 1:00 PM CDT Office Visit Department of Internal Medicine in [place], [place] [address], [place] [address] Patrick Erickson D.O. [address], [place] [address] documented as of this encounter Results * INR Reflex, POCT, Blood (11/22/2023 3:52 PM CDT) INR Reflex, POCT, B 1.7 11/22/2023 3:46 PM CDT [id number] Comment: ----ADDITIONAL INFORMATION---- Standard intensity warfarin therapeutic range: 2.0 to 3.0 ?? High intensity warfarin therapeutic range: 2.5 to 3.5 Blood (Blood, Capillary) 11/22/2023 3:52 PM CDT 11/22/2023 3:53 PM CDT Patrick Erickson D.O. 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 [address] [place] [address] PCP - General Internal Medicine 08/12/22 documented as of this encounter
--- OUTSIDE RECORDS SUMMARY | 2023-12-06 08:05 | XMS_ITS ---
Author Organization [facility] Address [address] [place] [address] Care Team Providers Care Medical Coder Name Role Phone Unavailable Unavailable Unavailable Surgery Details Not on file Complications Check Surgery Details section. Procedure Estimated Blood Loss Check Surgery Details section. Procedure Findings Check Surgery Details section. Procedure Specimens Taken Check Surgery Details section.
--- OUTSIDE RECORDS SUMMARY | 2023-12-06 08:05 | XMS_ITS | Encounter Summary ---
Author Organization [facility] Address [address] [place] [address] Care Team Providers Care Real Property Evaluator Name Role Phone Patrick Erickson D.O. Primary Care Provider [phone] Reason for Visit * Outpatient (Routine) - Authorized Specialty Diagnoses / Procedures Referred By Prosper t Referred To Contact Anticoagulation Soheila Zapata P.A.-C., M.S. [address] [phone] [facility] Referral ID Status Reason Start Date Expiration Date V isits Requested Visits Authorized [id number] Authorized 01/07/2022 01/06/2025 300 300 Encounter Details Date Type Department Care Team (Latest Contact Info) Description 12/03/2023 3:50 PM CDT Anticoagulation Visit Department of Anticoagulation in [place], [place] [address] [place] [address] Soheila Zapata P.A.-C., M.S. 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 More than 4 times per year 05/30/2022 Do you belong to any clubs o r organizations such as mu-ism groups, unions, fraternal or athletic groups, or [...] Answer Date Recorded PHQ-2 Score 0 04/27/2023 [facility] - Occupational Stress Questionnaire Answer Date [...] your living situation today? I [facility] 07/01/2023 Education Answer [...] this encounter Patient Instructions * Patient Instructions* Linnette Flores RMoraima. - 12/03/2023 3:50 PM CDT Your next INR will be on 12/13/2023. You will need to call the Anticoagulation Program at the time of your scheduled nurse visit or you can complete the Anticoagulation Pre-Visit Questionnaire and ifno additional information is needed, your dosing can be provided via your Patient portal. To reschedule your appointment or for questions about your warfarin, please call Primary Care Anticoagulation Program at [phone] from 7:30 am to 4:30 pm. Wednesday-Wednesday [...] if you start any herbal or other pavv-qtp-maicciy product (check with your doctor, a nurse, or pharmacist). If you change your diet significantly. If you decide to stop or start using tobacco or alcohol. If you notice unusual bruising or bleeding. If you notice dark, tarry, or bright red stools or blood in your urine. If you have a painful and swollen calf. documented in this encounter Progress Notes * Beronica Fenton Pharm.Jelani., R.Ph. - 12/03/2023 3:50 PM CDT Anticoagulation plan around humerus fracture repair procedure on 12/08/23 (at outside facility): Bridging: not indicated. Anticoagulation Recommendations surrounding procedure: Date Warfarin Dose 12/02 Hold 12/03 Hold 12/04 Hold 12/05 Hold 12/06 Hold Day of Procedure 12/07 Restart in the evening IF ok with proceduralist. Take 7.5 mg 10/3 Take 5 mg 10/4 Take 5 mg 10/5 Take 7.5 mg 10/6 Take 5 mg 10/7 INR day Plan in table is based on holding warfarin for 5 days prior to procedure. Check INR on procedure day if desired by proceduralist. Warfarin will resume on evening of procedure, providing OK with proceduralist. See table for dosing. Check post-procedure INR 12/13/23. documented in this encounter Plan of Treatment Upcoming Encounters Date Type Department Care Team (Latest Contact Info) Description 12/13/2023 11:50 AM CDT Appointment Department of Laboratory Medicine in [address] [phone] Patrick Erickson D.O. [address] [place] [phone] 12/13/2023 12:30 PM CDT Anticoagulation Visit Department of Anticoagulation in [place], [place] [address] [place] [address] Soheila Zapata P.A.-C., M.S. [address] [place] [phone] 12/24/2023 10:10 AM CDT Appointment Department of Laboratory Medicine in [address] [phone] Patrick Erickson D.O. [address] [phone] 12/28/2023 1:00 PM CDT Office Visit Department of Internal Medicine in [place], [place] [address] [address] Patrick Erickson D.O. 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 [address] [phone] PCP - General Internal Medicine 08/12/22 documented as of this encounter
--- OUTSIDE RECORDS SUMMARY | 2023-12-06 08:05 | XMS_ITS | Referral Summary ---
Author Organization [facility] Address [address] [place] [address] Care Team Providers Care Mill Turner Name Role Phone Patrick Erickson D.O. Primary Care Provider [phone]- [phone] Source Comments Patient records contain information from all sites at [facility]. For routine questions regarding patient records, call [phone] during business hours, M-F 8:00 AM - 5:00 PM Central Time. Record requests for emergency care only can be directed to [phone] at any time.[facility] Encounters Date Type Department Care Team Description 12/03/2023 2:50 PM CDT - 12/03/2023 11:59 PM CDT Hospital Encounter Department of Laboratory Medicine in [address] [phone] Patrick Erickson D.O. 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 Arm Injury; Post Ed Visit Follow-up 11/29/2023 Clinical Communication Department of Family Medicine, [address] [place] [address] [place] [address] Butch Sanchez R.N. COVID Treatment Review 11/27/2023 Nurse Triage Department of Internal Medicine in [place], [place] [address] [place] [phone] Kari Olivarez R.N. Cough 11/22/2023 4:00 PM CDT Anticoagulation Visit Department of Anticoagulation in [place], [place] [address] [place] [address] Soheila Zapata, Martínez., M.S. 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 Or Unspecified Chronic Kidney Disease (HCC) (Primary Dx); Hyperlipidemia On Treatment; Atrial Fibrillation Paroxysmal (HCC); Monitoring For Therapeutic Drug Therapy; Correction (Current) Anticoagulant Treatment 11/22/2023 3:20 PM CDT - 11/22/2023 11:59 PM CDT Hospital Encounter Department of Laboratory Medicine in [address] [phone] Patrick Erickson D.O. 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 Or Unspecified Chronic Kidney Disease (HCC); Hyperlipidemia On Treatment; Atrial Fibrillation Paroxysmal (HCC); Monitoring For Therapeutic Drug Therapy; Correction (Current) Anticoagulant Treatment Discharge Disposition: Home or Self Care 11/12/2023 11:50 AM CDT - 11/12/2023 11:59 PM CDT Hospital Encounter Department of Laboratory Medicine in [address] [phone] Patrick Erickson D.O. Atrial Fibrillation Paroxysmal (HCC); Monitoring For Therapeutic Drug Therapy; Correction (Current) Anticoagulant Treatment Discharge Disposition: Home or Self Care 11/12/2023 12:30 PM CDT Anticoagulation Visit Department of Anticoagulation in [place], [place] [address] [place] [phone] Soheila Zapata P.A.-C., M.S. 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 11/02/2023 Clinical Communication Department of Anticoagulation in [address] [phone] Cullen Guillen R.N. Anticoagulation ([facility] Update-New PCP) 11/02/2023 3:30 PM CDT Anticoagulation Visit Department of Anticoagulation in [place], [place] [address] [place] [phone] Soheila Zapata P.Genie.-Ashish., M.S. 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 Or Unspecified Chronic Kidney Disease (HCC); Hyperlipidemia On Treatment; Atrial Fibrillation Paroxysmal (HCC); Monitoring For Therapeutic Drug Therapy; Correction (Current) Anticoagulant Treatment Discharge Disposition: Home or Self Care 10/28/2023 3:30 PM CDT Anticoagulation Visit Department of Anticoagulation in [place], [place] [address] [place] [phone] Soheila Zapata P.A.-C., M.S. 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 Or Unspecified Chronic Kidney Disease (HCC); Hyperlipidemia On Treatment; Atrial Fibrillation Paroxysmal (HCC); Monitoring For Therapeutic Drug Therapy; Correction (Current) Anticoagulant Treatment Discharge Disposition: Home or Self Care 10/19/2023 10:10 AM CDT Anticoagulation Visit Department of Anticoagulation in [place], [place] [address] [place] [phone] Soheila Zapata P.A.-C., M.S. 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 Or Unspecified Chronic Kidney Disease (HCC) (Primary Dx); Hyperlipidemia On Treatment; Atrial Fibrillation Paroxysmal (HCC); Monitoring For Therapeutic Drug Therapy; Correction (Current) Anticoagulant Treatment 10/15/2023 2:50 PM CDT - 10/15/2023 11:59 PM CDT Hospital Encounter Department of Laboratory Medicine in [address] [phone] Patrick Erickson D.O. 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 Or Unspecified Chronic Kidney Disease (HCC); Hyperlipidemia On Treatment; Atrial Fibrillation Paroxysmal (HCC); Monitoring For Therapeutic Drug Therapy; Correction (Current) Anticoagulant Treatment Discharge Disposition: Home or Self Care 10/08/2023 9:30 AM CDT Anticoagulation Visit Department of Anticoagulation in [place], [place] [address] [place] [phone] Soheila Zapata P.A.-C., M.S. 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 Or Unspecified Chronic Kidney Disease (HCC) (Primary Dx); Hyperlipidemia On Treatment; Atrial Fibrillation Paroxysmal (HCC); Monitoring For Therapeutic Drug Therapy; Sash Assembler (Current) Anticoagulant Treatment 10/07/2023 2:49 PM CDT - 10/07/2023 11:59 PM CDT Hospital Encounter Department of Laboratory Medicine in [address] [phone] Patrick Erickson D.O. Atrial Fibrillation Paroxysmal (HCC) Discharge Disposition: Home or Self Care 10/04/2023 3:50 PM CDT Anticoagulation Visit Department of Anticoagulation in [place], [place] [address] [place] [phone] Soheila Zapata P.A.-C., M.S. Atrial Fibrillation Paroxysmal (HCC) (Primary Dx); 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 Or Unspecified Chronic Kidney Disease (HCC); Hyperlipidemia On Treatment; Monitoring For Therapeutic Drug Therapy; Sash Assembler (Current) Anticoagulant Treatment 10/01/2023 Clinical Communication Department of Anticoagulation in [place], [place] [address] [place] [phone] La Mendoza R.N. Anticoagulation (Out of range INR.) 10/01/2023 2:30 PM CDT - 10/01/2023 11:59 PM CDT Hospital Encounter Department of Laboratory Medicine in [place], [place] [address] [place] [phone] Patrick Erickson D.O. 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 Glomerular Filtration Rate (GFR) 45 To 59 (HCC); Hyperlipidemia On Treatment; Atrial Fibrillation Paroxysmal (HCC); Monitoring For Therapeutic Drug Therapy; Sash Assembler (Current) Anticoagulant Treatment Discharge Disposition: Home or Self Care 09/24/2023 3:30 PM CDT Anticoagulation Visit Department of Anticoagulation in [place], [place] [address] [place] [phone] Soheila Zapata P.A.-C., M.S. 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 Glomerular Filtration Rate (GFR) 45 To 59 (HCC) (Primary Dx); Hyperlipidemia On Treatment; Atrial Fibrillation Paroxysmal (HCC); Monitoring For Therapeutic Drug Therapy; Sash Assembler (Current) Anticoagulant Treatment 09/24/2023 2:50 PM CDT - 09/24/2023 11:59 PM CDT Hospital Encounter Department of Laboratory Medicine in [address] [phone] Patrick Erickson D.O. 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 Glomerular Filtration Rate (GFR) 45 To 59 (HCC); Hyperlipidemia On Treatment; Atrial Fibrillation Paroxysmal (HCC); Monitoring For Therapeutic Drug Therapy; Correction (Current) Anticoagulant Treatment Discharge Disposition: Home or Self Care 09/21/2023 1:30 PM CDT Anticoagulation Visit Department of Anticoagulation in [place], [place] [address] [place] [phone] Soheila Zapata P.A.-C., M.S. 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 Glomerular Filtration Rate (GFR) 45 To 59 (HCC) (Primary Dx); Hyperlipidemia On Treatment; Atrial Fibrillation Paroxysmal (HCC); Monitoring For Therapeutic Drug Therapy; Sash Assembler (Current) Anticoagulant Treatment 09/21/2023 11:55 AM CDT - 09/21/2023 11:59 PM CDT Hospital Encounter Department of Laboratory Medicine in [address] [phone] Patrick Erickson D.O. 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 Glomerular Filtration Rate (GFR) 45 To 59 (HCC); Hyperlipidemia On Treatment; Atrial Fibrillation Paroxysmal (HCC); Monitoring For Therapeutic Drug Therapy; Sash Assembler (Current) Anticoagulant Treatment Discharge Disposition: Home or Self Care 09/14/2023 1:30 PM CDT Anticoagulation Visit Department of Anticoagulation in [place], [place] [address] [place] [phone] Soheila Zapata P.A.-C., M.S. Atrial Fibrillation Paroxysmal (HCC) (Primary Dx); 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 Glomerular Filtration Rate (GFR) 45 To 59 (HCC); Hyperlipidemia On Treatment; Monitoring For Therapeutic Drug Therapy; Sash Assembler (Current) Anticoagulant Treatment 09/14/2023 12:44 PM CDT - 09/14/2023 11:59 PM CDT Hospital Encounter Department of Laboratory Medicine in [address] [phone] Soheila Zapata P.A.-C., M.S. 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 Glomerular Filtration Rate (GFR) 45 To 59 (HCC); Hyperlipidemia On Treatment; Atrial Fibrillation Paroxysmal (HCC); Monitoring For Therapeutic Drug Therapy; Correction (Current) Anticoagulant Treatment Discharge Disposition: Home or Self Care 09/08/2023 4:00 PM CDT Anticoagulation Visit Department of Anticoagulation in [address] [phone] Soheila Zapata P.A.-C., M.S. 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 Glomerular Filtration Rate (GFR) 45 To 59 (HCC) (Primary Dx); Hyperlipidemia On Treatment; Atrial Fibrillation Paroxysmal (HCC); Monitoring For Therapeutic Drug Therapy; Sash Assembler (Current) Anticoagulant Treatment 09/08/2023 3:20 PM CDT - 09/08/2023 11:59 PM CDT Hospital Encounter Department of Laboratory Medicine in [address] [phone] Patrick Erickson D.O. 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 Glomerular Filtration Rate (GFR) 45 To 59 (HCC); Hyperlipidemia On Treatment; Atrial Fibrillation Paroxysmal (HCC); Monitoring For Therapeutic Drug Therapy; Correction (Current) Anticoagulant Treatment Discharge Disposition: Home or Self Care from Last 3 Months Allergies Active Allergy Reactions Criticality Noted Date [...] for muscle spasms. 30 tablet 06/26/2021 Active fwwofec-mvmr-lxwjq -oreg-capryl 100 mg-150 mg- 50 mg-150 mg [...] Treatment,Atrial Fibrillation Paroxysmal (HCC),Monitoring For Therapeutic Drug Therapy,Correction (Current) Anticoagulant Treatment Please take as directed by your Anticoagulation Clinic. 15 tablet 08/24/2023 Active warfarin (JANTOVEN) 5 mg tabletIndications: 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 Glomerular Filtration Rate (GFR) 45 To 59 (HCC),Hyperlipidem ia On Treatment,Atrial Fibrillation Paroxysmal (HCC),Monitoring For Therapeutic Drug Therapy,Sash Assembler (Current) Anticoagulant Treatment Please take as directed by your Anticoagulation Clinic. 120 tablet 3 08/24/2023 Active Active Problems Problem Noted Date Diagnosed Date Atrial Fibrillation Paroxysmal 01/06/2022 Monitoring For Therapeutic Drug Therapy 01/07/20 Correction (Current) Anticoagulant Treatment 03/2021 Radiculopathy Lumbar Fifth [...] 12/14/2014,01/20/2007 PCV13 08/17/2014 PPSV23 02/13/2015 Tdap 08/17/2014 Social History Tobacco Use Types Packs/Day Years Used Date Smoking Tobacco: Never Smokeless Tobacco: Never Tobacco Cessation:Counseling Given: Not Answered Alcohol Use Standard Drinks/Week Comments No 0 (1 standard drink = 0.6 oz pur e alcohol) [facility] Utilities Answer Date Recorded In the past 12 months has [employer], oil, or water [employer] threatened to shut off services in your [...] week 05/30/2022 How often do you attend [facility] or [employer] services? More than 4 times per year 05/30/2022 Do you belong to any clubs o r organizations such as restorationist groups, unions, fraternal or athletic groups, or [...] Answer Date Recorded PHQ-2 Score 0 04/27/2023 [facility] Occupat ional [facility] - Occupational Stress Questionnaire Answer Date [...] your living situation today? 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 [address] [place] [phone] 12/13/2023 12:30 PM CDT Anticoagulation Visit Department of Anticoagulation in [place], [place] [address] [place] [address] Soheila Zapata P.A.-C., M.S. [address] [place] [phone] 12/24/2023 10:10 AM CDT Appointment Department of Laboratory Medicine in [place], [place] [address] [place] [phone] Patrick Erickson D.O. [address] [place] [phone] 12/28/2023 1:00 PM CDT Office Visit Department of Internal Medicine in [place], [place] [address] [place] [phone] Patrick Erickson D.O. [address] [phone] Procedures Procedure Name Priority Date/Time Associated Diagnosis Comments PROTHROMBIN TIME (PT), P Routine 12/03/2023 3:01 PM CDT INR REFLEX, POCT, B Routine 12/03/2023 2 :57 PM CDT 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 Or Unspecified Chronic Kidney Disease (HCC) Hyperlipidemia On Treatment Atrial Fibrillation Paroxysmal (HCC) Monitoring For Therapeutic Drug Therapy Sash Assembler (Current) Anticoagulant Treatment EXTM HOME SARS CORONAVIRUS-2 (COVID-19) ANTIGEN, V Routine 11/26/2023 6:00 PM CDT INR REFLEX, POCT, B Routine 11/22/2023 3 :52 PM CDT 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 Or Unspecified Chronic Kidney Disease (HCC) Hyperlipidemia On Treatment Atrial Fibrillation Paroxysmal (HCC) Monitoring For Therapeutic Drug Therapy Sash Assembler (Current) Anticoagulant Treatment INR REFLEX, POCT, B Routine 11/12/2023 12:09 PM CDT Atrial Fibrillation Paroxysmal (HCC) Monitoring For Therapeutic Drug Therapy Correction (Current) Anticoagulant Treatment INR REFLEX, POCT, B Routine 11/02/2023 2 :58 PM CDT 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 Or Unspecified Chronic Kidney Disease (HCC) Hyperlipidemia On Treatment Atrial Fibrillation Paroxysmal (HCC) Monitoring For Therapeutic Drug Therapy Sash Assembler (Current) Anticoagulant Treatment INR REFLEX, POCT, B Routine 10/28/2023 3 :00 PM CDT 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 Or Unspecified Chronic Kidney Disease (HCC) Hyperlipidemia On Treatment Atrial Fibrillation Paroxysmal (HCC) Monitoring For Therapeutic Drug Therapy Sash Assembler (Current) Anticoagulant Treatment INR REFLEX, POCT, B Routine 10/15/2023 3 :09 PM CDT 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 Or Unspecified Chronic Kidney Disease (HCC) Hyperlipidemia On Treatment Atrial Fibrillation Paroxysmal (HCC) Monitoring For Therapeutic Drug Therapy Correction (Current) Anticoagulant Treatment INR REFLEX, POCT, B Routine 10/07/2023 2 :55 PM CDT Atrial Fibrillation Paroxysmal (HCC) INR REFLEX, POCT, B Routine 10/01/2023 3 :00 PM CDT 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 Glomerular Filtration Rate (GFR) 45 To 59 (HCC) Hyperlipidemia On Treatment Atrial Fibrillation Paroxysmal (HCC) Monitoring For Therapeutic Drug Therapy Sash Assembler (Current) Anticoagulant Treatment INR REFLEX, POCT, B Routine 09/24/2023 3 :14 PM CDT 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 Glomerular Filtration Rate (GFR) 45 To 59 (HCC) Hyperlipidemia On Treatment Atrial Fibrillation Paroxysmal (HCC) Monitoring For Therapeutic Drug Therapy Correction (Current) Anticoagulant Treatment PROTHROMBIN TIME (PT), P Routine 09/21/2023 12:41 PM CDT INR REFLEX, POCT, B Routine 09/21/2023 12:39 PM CDT 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 Glomerular Filtration Rate (GFR) 45 To 59 (HCC) Hyperlipidemia On Treatment Atrial Fibrillation Paroxysmal (HCC) Monitoring For Therapeutic Drug Therapy Sash Assembler (Current) Anticoagulant Treatment INR REFLEX, POCT, B Routine 09/14/2023 1 :00 PM CDT 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 Glomerular Filtration Rate (GFR) 45 To 59 (HCC) Hyperlipidemia On Treatment Atrial Fibrillation Paroxysmal (HCC) Monitoring For Therapeutic Drug Therapy Correction (Current) Anticoagulant Treatment INR REFLEX, POCT, B Routine 09/08/2023 3 :39 PM CDT 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 Glomerular Filtration Rate (GFR) 45 To 59 (HCC) Hyperlipidemia On Treatment Atrial Fibrillation Paroxysmal (HCC) Monitoring For Therapeutic Drug Therapy Sash Assembler (Current) Anticoagulant Treatment BASIC METABOLIC PANEL, S/P Routine 07/06/2023 8:46 AM CDT Atrial Fibrillation Paroxysmal (HCC) 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 Glomerular Filtration Rate (GFR) 45 To 59 (HCC) BI BREAST SCREENING BILATERAL WITH TOMOSYNTHESIS RAD - Routine (most inpatients and all outpatients) 12/09/2021 3:16 PM CDT Maintenance Health Adult from Last 3 Months or Most Recently Relevant to Health Maintenance Results * (ABNORMAL) Prothrombin Time (PT) (12/03/2023 3:01 PM CDT) Only the most recent of2 resultswithin the time period is included. Prothrombin [...] CDT Patrick Erickson D.O. LAB BLOOD ADD-ON [facility] [address] [place] [address], [facility] [place] [facility] in [place] [address] [place] [address] * (ABNORMAL) INR Reflex, POCT, Blood (12/03/2023 2:57 PM CDT) Only the most recent of12 resultswithin the time period is included. INR Reflex, POCT, B 5.3(CH) 12/03/2023 2:56 PM CDT [id number] Comment: ----ADDITIONAL INFORMATION---- Standard intensity warfarin therapeutic range: 2.0 to 3.0 ?? High intensity warfarin therapeutic range: 2.5 to 3.5 Blood (Blood, Capillary) 12/03/2023 2:57 PM CDT 12/03/2023 2:56 PM CDT Patrick Erickson D.O. LAB POCT ORDERABLE S - DEVICE [facility] [employer] [facility] [address] [place] [address], [place] [id number] [facility] in [place] [address] [place] [address] * (ABNORMAL) EXT Home SARS Coronavirus-2 (COVID-19) Antigen (11/26/2023 6:00 PM CDT) EXT Home SARS-CoV-2 Antigen Presumptive Positive(A) Presumptive Negative OTHER (SPECIFY IN MACHINE I COREMAKER) Swab 11/26/2023 6:00 PM CDT Historical Provider LAB MICROBIOLOGY - G ENERAL ORDERABLES OTHER (SPECIFY IN MACHINE I COREMAKER) N/A * Basic Metabolic Panel (07/06/2023 8:46 AM CDT) Potassium, P 3.8 3.6 - 5.2 mmol/L [...] CDT Patrick Erickson D.O. LAB BLOOD ADD-ON [facility] [address] [place] [address], [place] [facility] [place] [address] [place] [address] * BI Breast Screening Bilateral with Tomosynthesis [...] Zapata P.A.-C., M.S. IMG BI P ROCEDURES from Last 3 Months or Most Recently Relevant to Health Maintenance Additional Health Concerns Infection Onset Date Last Indicated COVID19 11/26/2023 11/26/2023 Care Teams Mill Turner Relationship Specialty Start Date End Date Patrick Erickson D.O. [address] [place] [phone] PCP - General Internal Medicine 08/12/22
--- OUTSIDE RECORDS SUMMARY | 2023-12-06 08:05 | XMS_ITS | Encounter Summary ---
Author Organization [facility] Address [address] [place] [address] Care Team Providers Care Pack Changer Name Role Phone Patrick Erickson D.O. Primary Care Provider +1- [phone] Reason for Visit * Reason Onset Date Comments Arm Injury 12/01/2023 Post Ed Visit Follow-up 12/01/2023 Encounter Details Date Type Department Care Team (Latest Contact Info) Description 12/01/2023 Clinical Communication Department of Orthopedic Surgery in [place], [place] [address] [phone] Sher Bauman M.D. [address] [place] [phone] Arm Injury; Post Ed Visit Follow-up Social History Tobacco Use Types Packs/Day Years Used Date Smoking Tobacco: Never Smokeless Tobacco: Never Alcohol Use Standard Drinks/Week Comments No 0 (1 standard drink = 0.6 oz pur e alcohol) [facility] Utilities Answer Date Recorded In the past [...] 05/30/2022 How often do you attend chur or oriental orthodox services? More than 4 times per year 05/30/2022 Do you belong to any clubs o r organizations such as hoahaoism groups, unions, fraternal or athletic groups, or [...] Answer Date Recorded PHQ-2 Score 0 04/27/2023 [facility] of Occupat ional Health - Occupational [...] your living situation today? I have a [facility] place to live 07/01/2023 Education Answer [...] encounter Miscellaneous Notes * Telephone Encounter - Mariam Higgins R.N. - 12/03/2023 8:33 AM CDT Called patient and discussed ER visit. Patient states she fell on Wednesday, November 30 at workand was taken by ambulance to the [facility]. Patient states she followed up with [facility] and is preparing for surgery either on Wednesday or Wednesday next week. Patient states she broke the bone in her upper left arm and is needing a plate. Discussed if patient is requesting to follow up at [facility] instead of [facility]. Patient states since this is a work comp claim, she will continue to follow up with [facility]. Patient will have [facility] send all medical records to [facility] since her primary care provider is in [place]. * Telephone Encounter - Nancy Garrison L.P.N. - 12/02/2023 9:23 AM CDT Left message to call clinic back with daughter Cherie. No release on file. No ER records viewablein system. documented in this encounter Plan of Treatment Upcoming Encounters Date Type Department Care Team (Latest Contact Info) Description 12/13/2023 11:50 AM CDT Appointment Department of Laboratory Medicine in [place], [place] [address] [place] [address] Patrick Erickson D.O. [address] [place] [phone] 12/13/2023 12:30 PM CDT Anticoagulation Visit Department of Anticoagulation in [place], [place] [address] [place] [address] Soheila Zapata P.A.-C., M.S. [address] [place] [phone] 12/24/2023 10:10 AM CDT Appointment Department of Laboratory Medicine in [place], [place] [address] [place] [address] Patrick Erickson D.O. [address] [place] [phone] 12/28/2023 1:00 PM CDT Office Visit Department of Internal Medicine in [place], [place] [address] [phone] Patrick Erickson D.O. 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 [address] [phone] PCP - General Internal Medicine 08/12/22 documented as of this encounter
--- OUTSIDE RECORDS SUMMARY | 2023-12-06 08:05 | XMS_ITS | Encounter Summary ---
Author Organization [facility] Address [address] [place] [address] Care Team Providers Care Electrician Office Name Role Phone Patrick Erickson D.O. Primary Care Provider +1- [phone] Encounter Details Date Type Department Care Team (Latest Contact Info) Description 11/02/2023 2:50 PM CDT - 11/02/2023 11:59 PM CDT Hospital Encounter Department of Laboratory Medicine in [place] [address] [place] [phone] Patrick Erickson D.O. 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 More than 4 times per year 05/30/2022 Do you belong to any clubs o r organizations such as anabaptist groups, unions, fraternal or athletic groups, or [...] Answer Date Recorded PHQ-2 Score 0 04/27/2023 [facility] of Occupat ional Health - Occupational Stress [...] your living situation today? I have a [facility] place to live 07/01/2023 Education Answer [...] AM CDT documented as of this encounter Medications at Time of Discharge Medication Sig Dispensed Refills Start Date End Date atorvastatin (LIPITOR) 10 mg tablet take 1 tablet every day 90 tablet 3 04/21/2023 carvediloL (COREG) 6.25 mg tablet take 1 tablet twice daily 180 tablet 3 06/24/2023 CHOLECALCIFEROL, VITAMIN D3, ORAL Take 1 capsule by mouth daily. 08/14/2015 cranberry conc/C/Bacill coag (CRANBERRY URINARY TRACT HEALTH ORAL) Take 1 tablet by mouth daily. CYANOCOBALAMIN, VITAMIN B-12, ORAL Vitamin B-12 08/14/2015 cyclobenzaprine (FLEXERIL) 5 mg tablet Take 1 tablet (5 mg total) by mouth at bedtime as needed for muscle spasms. 30 tablet 06/26/2021 furosemide (LASIX) 20 mg tablet TAKE 1 TABLET (20 MG TOTAL) BY MOUTH DAILY. MAY TAKE AN EXTRA DOSE NEEDED FOR WEIGHT GAIN/EDEMA 100 tablet 3 04/28/2023 ibuprofen (ADVIL,MOTRIN) 200 mg tablet Take by mouth every 6 (six) hours as needed. 08/18/2022 lisinopriL (PRINIVIL,ZESTRIL) 40 mg tablet take 1 tablet every day 90 tablet 3 04/21/2023 svjxxlg-ijrl-ebxkv-or eg-capryl 100 mg-150 mg- 50 mg-150 mg capsule Take by mouth 3 (three) times a day. warfarin (JANTOVEN) 5 mg tabletIndications:Hyp ertensive 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 Glomerular Filtration Rate (GFR) 45 To 59 (HCC),Hyperlipidemia On Treatment,Atrial Fibrillation Paroxysmal (HCC),Monitoring For Therapeutic Drug Therapy,Fpc (Current) Anticoagulant Treatment Please take as directed by your Anticoagulation Clinic. 15 tablet 08/24/2023 warfarin (JANTOVEN) 5 mg tabletIndications:Hyp ertensive 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 Glomerular Filtration Rate (GFR) 45 To 59 (HCC),Hyperlipidemia On Treatment,Atrial Fibrillation Paroxysmal (HCC),Monitoring For Therapeutic Drug Therapy,Cargo Supervisor (Current) Anticoagulant Treatment Please take as directed by your Anticoagulation Clinic. 120 tablet 3 08/24/2023 documented as of this encounter Plan of Treatment Upcoming Encounters Date Type Department Care Team (Latest Contact Info) Description 12/13/2023 11:50 AM CDT Appointment Department of Laboratory Medicine in [place] [address] [facility] [phone] Patrick Erickson D.O. [address] [phone] 12/13/2023 12:30 PM CDT Anticoagulation Visit Department of Anticoagulation in [place], [place] [address] [place] [address] Soheila Zapata P.A.-C., M.S. [address] [phone] 12/24/2023 10:10 AM CDT Appointment Department of Laboratory Medicine in [place], [place] [address] [place] [phone] Patrick Erickson D.O. [address] [phone] 12/28/2023 1:00 PM CDT Office Visit Department of Internal Medicine in [place], [place] [address] [phone] Patrick Erickson D.O. 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 High intensity warfarin therapeutic range: 2.5 to 3.5 Blood (Blood, Capillary) 11/02/2023 2:58 PM CDT 11/02/2023 2:57 PM CDT Patrick Erickson D.O. 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 [address] [phone] PCP - General Internal Medicine 08/12/22 documented as of this encounter
--- OUTSIDE RECORDS SUMMARY | 2023-12-06 08:05 | XMS_ITS | Encounter Summary ---
Author Organization [facility] Address [address] [place] [address] Care Team Providers Care Dumper Bulk System Name Role Phone Patrick Erickson D.O. Primary Care Provider +1- [phone] Reason for Referral * Outpatient (Routine) - Authorized Specialty Diagnoses / Procedures Referred By Prosper t Referred To Contact Patrick Erickson D.O. [address] [place] [address] [facility] Referral ID Status Reason Start Date Expiration Date V isits Requested Visits Authorized [id number] Authorized 11/09/2023 05/10/2025 1 1 Scheduling Instructions Nurse AWV Do not schedule prior to due date to ensure insurance coverage Visit: Medicare Annual Wellness Never done. Encounter Details Date Type Department Care Team (Late st Contact Info) Description 11/09/2023 Orders Only [facility] PCP [facility] Patrick Erickson D.O. [address], [place] [phone] Social History Tobacco Use Types Packs/Day Years Used Date Smoking Tobacco: Never Smokeless Tobacco: Never Alcohol Use Standard Drinks/Week Comments No 0 (1 standard drink = 0.6 oz pur e alcohol) [facility] Utilities Answer Date Recorded In the past 12 months has th e [employer], gas, oil, or water [employer] threatened to shut off services in your [...] often do you attend chur ch or episcopal services? More than 4 times per year 05/30/2022 Do you belong to any clubs o r organizations such as rastafari groups, unions, fraternal or athletic groups, or [...] Answer Date Recorded PHQ-2 Score 0 04/27/2023 [facility] of Occupat ional Health - Occupational Stress [...] your living situation today? I have a [facility] place to live 07/01/2023 Education [...] AM CDT documented as of this encounter Plan of Treatment Upcoming Encounters Date Type Department Care Team (Latest Contact Info) Description 12/13/2023 11:50 AM CDT Appointment Department of Laboratory Medicine in [place], [place] [address] [place] [phone] Patrick Erickson D.O. [address] [phone] 12/13/2023 12:30 PM CDT Anticoagulation Visit Department of Anticoagulation in [place], [place] [address] [place] [address] Soheila Zapata P.A.-C., M.S. [address] [phone] 12/24/2023 10:10 AM CDT Appointment Department of Laboratory Medicine in [place], [place] [address] [place] [phone] Patrick Erickson D.O. [address] [phone] 12/28/2023 1:00 PM CDT Office Visit Department of Internal Medicine in [place], [place] [address] [place] [phone] Patrick Erickson D.O. 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 [address] [place] [phone] PCP - General Internal Medicine 08/12/22 documented as of this encounter
--- OUTSIDE RECORDS SUMMARY | 2023-12-06 08:05 | XMS_ITS | Encounter Summary ---
Author Organization [facility] Address [address] [place] [address] Care Team Providers Care Bisque Kiln Placer Name Role Phone Patrick Erickson D.O. Primary Care Provider +1- [phone] Reason for Visit * Reason Onset Date Comments Cough 11/27/2023 Encounter Details Date Type Department Care Team (Late st Contact Info) Description 11/27/2023 Nurse Triage Department of Internal Medicine in [place], [place] [address], [place] [phone] Kari Olivarez, RHowieNHowie [address] [place] [address] Cough Social History Tobacco Use Types Packs/Day Years Used Date Smoking Tobacco: Never Smokeless Tobacco: Never Alcohol Use Standard Drinks/Week Comments No 0 (1 standard drink = 0.6 oz pur e alcohol) [facility] Utilities Answer Date Recorded In the past 12 months has e [employer], gas, oil, or water [employer] threatened to shut off services in your [...] often do you attend chur ch or adventist services? More than 4 times per year 05/30/2022 Do you belong to any clubs o r organizations such as mandaeism groups, unions, fraternal or athletic groups, or [...] Answer Date Recorded PHQ-2 Score 0 04/27/2023 [facility] of Occupat ional Health - Occupational Stress [...] your living situation today? I have a [facility] place to live 07/01/2023 Education Answer Date [...] as of this encounter Miscellaneous Notes * Result Encounter Note - Juana Bowman RHowieN. - 11/29/2023 9:39 AM CDT A COVID-19 positive test result has been entered for your patient. They are considered high risk for COVID-19 (MASS 6+, immunocompromised, , 65 years or older). Your patient will receive proactive outreach regarding their treatment options. Patients who reside in senior care facilities will be informed of their positive test results via their facility care team, portal, or US mail but will NOT be called by the [facility] Care team to discuss treatment. Patients should work with their facility care team for treatment options. - [facility] Virtual (COVID-19) Care Team * Telephone Encounter - Kari Olivarez R.N. - 11/27/2023 12:42 PM CDT Chief Complaint / Reason for Call Patient is a 78 y.o. female calling regarding Cough. Assessment Concern: Patient is calling and reports that she has a positive COVID test yesterday Present for: Symptoms if cough and nasal congestion Home cares tried: none Calling to request: advice The recommended disposition is No disposition on file.. Your coronavirus nasal swab has come back positive for SARS-CoV-2, the virus that causes COVID-19. COVID-19 Isolation You can return to your normal activities when both are true for at least 24 hours: Your symptoms are getting better overall, and You have not had a fever (and are not using fever-reducing medication) When you return to your normal activities, the following prevention strategies are recommended for the next 5 days: Washing or sanitizing hands often Cleaning high touch surfaces frequently Wearing a mask Physical distancing, and/or testing when gathering indoors Use air purifiers What should you tell your close contacts? Test for COVID-19 five days after the close contact exposure Monitor for symptoms Self Cares Getting plenty of rest Staying hydrated Taking over the counter medications can help you feel better. You may use acetaminophen, ibuprofen or naproxen as indicated on the label to control fever, muscle aches, headaches and sore throat. Adults may use other over the counter medications as needed for cough and congestion. Treatment options are based on a review of your documented past medical history in the [facility] medical record. If you should develop any of the following symptoms, seek emergent care: Trouble breathing Persistent pain or pressure in the chest New confusion Inability to wake or stay awake Pale, maldonado, or blue-colored skin, lips or nail bed, depending on your skin tone Response to Education: patient/caller able to teach back Caller agreeable to plan of care: yes Reason for Disposition Cough Protocols used: Cough - Acute Gzk-Oknhcjdiow-QFSWB- Care Advice Patient/Caregiver understands and will follow care advice?: Yes, able to teach back Cough - Acute Vjv-Xxuehtxfnf-XDQPN- Nurse Kari Ant Nov 27, 2023 12:50 PM Care Advice HOME CARE: * You should be able to treat this at home. REASSURANCE AND EDUCATION - COUGH: * Coughing is the way that our lungs remove irritants and mucus. It helps protect our lungs from getting pneumonia. * You can get a dry hacking cough after a chest cold. Sometimes this type of cough can last 1 to 3 weeks, and be worse at night. * You can also get a cough after being exposed to irritating substances like smoke, strong perfumes, and dust. * Here is some care advice that should help. COUGH DROPS FOR COUGH: * Cough drops can help a lot, especially for mild coughs. They reduce coughing by soothing your irritated throat and removing that tickle sensation in the back of the throat. * Cough drops also have the advantage of portability - you can carry them with you. * Cough drops are available rhti-eyq-jaiujiw (OTC). * HOME REMEDY - HARD CANDY: Hard candy works just as well as a medicine-flavored OTC cough drops. COUGH MEDICINES: * COUGH DROPS: Jblh-vad-kwdihrd cough drops can help a lot, especially for mild coughs. They soothean irritated throat and remove the tickle sensation in the back of the throat. Cough drops are easyto carry with you. * COUGH SYRUP WITH DEXTROMETHORPHAN: An ewdk-qzl-oettyqz cough syrup can help your cough. The most common cough suppressant in wmik-mbu-qzbpogh cough medicines is dextromethorphan. * HOME REMEDY - HARD CANDY: Hard candy works just as well as xqgs-dyo-ssjupgj cough drops. People who have diabetes should use sugar-free candy. * HOME REMEDY - HONEY: This old home remedy has been shown to help decrease coughing at night. The adult dosage is 2 teaspoons (10 ml) at bedtime. COUGH SYRUP WITH DEXTROMETHORPHAN: * Cough syrups containing the cough suppressant dextromethorphan may help decrease your cough. * Cough syrup works best for coughs that keep you awake at night. It can also sometimes help in thelate stages of a lung or airway infection when the cough is dry and hacking. Cough syrup can be used along with cough drops. * Examples: Delsym 12-hour Cough, Robitussin Cough Long-Acting, Triaminic Long- Acting, Vicks DayQuil Cough. COUGH SYRUP WITH DEXTROMETHORPHAN - EXTRA NOTES AND WARNINGS: * Do not try to completely stop coughs that produce mucus and phlegm. * Coughing is helpful. It brings up the mucus from the lungs and helps prevent pneumonia. * RESEARCH: Some research studies show that dextromethorphan reduces the frequency and severity of cough in those 18 years and older without significant adverse effects. Other studies suggest that dextromethorphan is no better than placebo at reducing a cough. * DRUG ABUSE: It should be noted that dextromethorphan has become a drug of abuse. This problem is seen most often in teenagers. Overdose symptoms can range from giggling and feeling high to hallucinations and coma. * WARNING: Do not take dextromethorphan if you are taking a monoamine oxidase (MAO) inhibitor now or in the past 2 weeks. Examples of MAO inhibitors include isocarboxazid (Marplan), phenelzine (Nardil), selegiline (Eldepryl, Emsam, Zelapar), and tranylcypromine (Parnate). * WARNING: Do not take dextromethorphan if you are taking venlafaxine (Effexor). * Before taking any medicine, read all the instructions on the package. HUMIDIFIER: * If the air is dry, use a humidifier in the bedroom. * Dry air makes coughs worse. AVOID TOBACCO SMOKE: * Avoid smoke from tobacco and e-cigarettes. * Smoking or being exposed to smoke makes coughs much worse. COUGHING SPELLS: * Drink warm fluids. Inhale warm mist. This can help relax the airway and also loosen up phlegm. * Suck on cough drops or hard candy to coat the irritated throat. CALL BACK IF: * Cough lasts over 3 weeks * Continuous coughing persists over 2 hours after cough treatment * Fever over 103 F (39.4 C) * Fever lasts more than 3 days * Difficulty breathing occurs * You become worse documented in this encounter Plan of Treatment Upcoming Encounters Date Type Department Care Team (Latest Contact Info) Description 12/13/2023 11:50 AM CDT Appointment Department of Laboratory Medicine in [place], [place] [address] [place] [phone] Patrick Erickson D.O. [address] [place] [phone] 12/13/2023 12:30 PM CDT Anticoagulation Visit Department of Anticoagulation in [place], [place] [address] [place] [address] Soheila Zapata P.A.-C., M.S. [address] [place] [phone] 12/24/2023 10:10 AM CDT Appointment Department of Laboratory Medicine in [place], [place] [address] [place] [phone] Patrick Erickson D.O. [address] [phone] 12/28/2023 1:00 PM CDT Office Visit Department of Internal Medicine in [place], [place] [address] [place] [phone] Patrick Erickson D.O. 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 [address] [place] [phone] PCP - General Internal Medicine 08/12/22 documented as of this encounter
--- OUTSIDE RECORDS SUMMARY | 2023-12-06 08:05 | XMS_ITS | Encounter Summary ---
Author Organization [facility] Address [address] [place] [address] Care Team Providers Care Belt Brander Name Role Phone Patrick Erickosn D.O. Primary Care Provider +1- [phone] Reason for Visit * Reason Onset Date Comments COVID Treatment Review 11/29/2023 Encounter Details Date Type Department Care Team (Latest Contact Info) Description 11/29/2023 Clinical Communication Department of Family Medicine, [address] [address] Butch Sanchez, R.N. COVID Treatment Review Social History Tobacco Use Types Packs/Day Years Used Date Smoking Tobacco: Never Smokeless Tobacco: Never Alcohol Use Standard Drinks/Week Comments No 0 (1 standard drink = 0.6 oz pur e alcohol) [facility] Utilities Answer Date Recorded In the past 12 months has [facility] [employer], gas, oil, or water [employer] threatened to shut off services in your [...] often do you attend chur ch or buddhist services? More than 4 times per year 05/30/2022 Do you belong to any clubs o r organizations such as congregational groups, unions, fraternal or athletic groups, or [...] Answer Date Recorded PHQ-2 Score 0 04/27/2023 [facility] of Occupat ional Health - [...] your living situation today? [facility] 07/01/2023 Education Answer Date [...] encounter Miscellaneous Notes * Telephone Encounter - Butch Sanchez R.NHowie - 11/29/2023 9:44 AM CDT [facility] Care Team Evaluation Reason for Call Patient was contacted regarding a recent positive test result for COVID-19. Patient is interested in being considered for treatment for COVID-19. Subjective Patient is currently having symptoms. Symptoms started within the last 5 days. Date of onset is 11-26-2023. Current symptoms include: body aches, cough (productive) , congestion , decreased appetite, fatigue, generalized weakness, and headache Objective Covid MASS Score: 5 Covid CAST Score: 4 Most recent GFR(last year): Lab Results Component Value Date/Time Estimated GFR (eGFR) 64 07/06/2023 08:46 AM Medication Review Medications to Take Different with Paxlovid: Atorvastatin Education Treatment Review: Paxlovid Paxlovid is an oral medication that stops the replication of the virus that causes COVID-19 and hasbeen shown to reduce the risk of hospitalization by 87%. Side effects that have been reported include abnormal taste, GI upset, and muscle aches. Serious reactions such as allergic reactions and liver failure are extremely uncommon. Patient instructed to contact their health care provider right away if they experience side effects. Patient instructed to take Paxlovid for 5 days. Given directions to pickle sorter and start the medication within 5 days of symptom onset. Remdesivir Remdesivir is an IV medication that stops the replication of the virus that causes COVID-19 and hasbeen shown to reduce the risk for hospitalization by 89%. Side effects from Remdesivir are uncommonand increases in liver enzymes are rare and unlikely to occur at the doses used to treat COVID-19. This medication is given as an IV infusion once daily for 3 days in a row and must start within 7 days of symptom onset. Each appointment would take up to an hour as we monitor for any sign of an infusion reaction, such as low blood pressure, nausea, vomiting, sweating, or shivering. Isolation Instructed patient to stay home from work, school, or daycare until your symptoms are getting better overall AND fever free for 24 hours without the use of fever reducing medications. Continue to wear a face mask for 5 additional days (10 days if considered immunocompromised). When to seek emergency care: Instructed patient to seek emergency medical attention if experiencing severe symptoms. Severe symptoms may include new or increasing oxygen requirements, shortness of breath at rest, shortness of breath that limits walking short distances, chest pain (such as retrosternal or left sided chest pain,pain that radiates to the jaw or arm), and dizziness or lightheadedness that causes unsteadiness orinability to stand or walk. Plan Treatment/Monitoring Decisions: Patient declines treatment. Disposition/Recommendation:?Self-care as appropriate. Instructed patient to contact primary care provider for questions regarding symptom management. Response to Education:?patient/caller able to teach back The following references were used: Nursing or provider judgement, [facility] workflow(s), guidelines, and protocols, [facility] Protocols.? . documented in this encounter Plan of Treatment Upcoming Encounters Date Type Department Care Team (Latest Contact Info) Description 12/13/2023 11:50 AM CDT Appointment Department of Laboratory Medicine in [place], [place] [address] [place] [phone] Patrick Erickson D.O. [address] [address] 12/13/2023 12:30 PM CDT Anticoagulation Visit Department of Anticoagulation in [place], [place] [address] [place] [address] Soheila Zapata P.A.-C., M.S. [address] [address] 12/24/2023 10:10 AM CDT Appointment Department of Laboratory Medicine in [place], [place] [address] [place] [phone] Patrick Erickson D.O. [address] [address] 12/28/2023 1:00 PM CDT Office Visit Department of Internal Medicine in [place], [place] [address] [place] [address] Patrick Erickson D.O. 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 [address] [place] [address] PCP - General Internal Medicine 08/12/22 documented as of this encounter
--- OUTSIDE RECORDS SUMMARY | 2023-12-06 08:05 | XMS_ITS | Encounter Summary ---
Author Organization [facility] Address [address] [place] [address] Care Team Providers Care Mold Dresser Name Role Phone Patrick Erickson D.O. Primary Care Provider +1- [phone] Reason for Visit * Outpatient (Routine) - Authorized Specialty Diagnoses / Procedures Referred By Prosper t Referred To Contact Anticoagulation Soheila Zapata P.A.-C., M.S. [address] [address] [facility] Referral ID Status Reason Start Date Expiration Date V isits Requested Visits Authorized [id number] Authorized 01/07/2022 01/06/2025 300 300 Encounter Details Date Type Department Care Team (Latest Contact Info) Description 11/22/2023 4:00 PM CDT Anticoagulation Visit Department of Anticoagulation in [place], [place] [address] [place] [address] Soheila Zapata P.A.-C., M.S. 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 More than 4 times per year 05/30/2022 Do you belong to any clubs o r organizations such as muslim groups, unions, fraternal or athletic groups, or [...] Answer Date Recorded PHQ-2 Score 0 04/27/2023 [facility] - Occupational Stress Questionnaire Answer Date Recorded [...] your living situation today? I have a [facility] place to live 07/01/2023 Education Answer [...] this encounter Patient Instructions * Patient Instructions* Liza Gray R.N. - 11/22/2023 4:00 PM CDT Your next INR will be in 7 days. You will need to call the Anticoagulation Program for warfarin dosing at the scheduled time for your nurse visit, as indicated on your Patient Appointment Guide (PAG). To reschedule your appointment or for questions about your warfarin, please call Primary Care Anticoagulation Program at [phone] from 7:30 am to 4:30 pm. Wednesday-Wednesday [...] if you start any herbal or other ogqj-ezx-byjfgfc product (check with your doctor, a nurse, or pharmacist). If you change your diet significantly. If you decide to stop or start using tobacco or alcohol. If you notice unusual bruising or bleeding. If you notice dark, tarry, or bright red stools or blood in your urine. If you have a painful and swollen calf. documented in this encounter Progress Notes * Liza Gray RMoraima. - 11/22/2023 4:00 PM CDT Warfarin Maintenance Nursing Protocol Goal Range 2.0-3.0 (version approved 04/2021) Visit Type: Telephone Primary reason for visit: Routine f/u OR f/u per previous visit recommendations Information provided by:patient INR result: 1.7 Goal range: 2.0-3.0 Inclusion Criteria: All inclusion criteria met. Proceeded to exclusion criteria. Exclusion Criteria: Section 1: No Section 1 exclusion criteria, proceeded to Section 2. Section 2: No Section 2 exclusion criteria, proceeded to screening criteria. Screening Criteria: All screening criteria negative. Testing interval extension evaluation: INR in range today? No. Patient is not eligible for testing interval extension. Proceeded to maintenance warfarin dosing and follow-up. Additional Info: Patient reports that she has been working more the last week, longer hours and is unsure if this will continue. Previous INR was therapeutic. Today???s INR is Subtherapeutic, Causes: Unknown. Dosing and follow up recommendation: Protocol dosing range for INR 1.5-1.7: Consult required due to indication: no. Increase last 7 daysdosing by 10%. Currently bridging: no. Next INR in 5-7 days. Additional dosing or follow-up information: Protocol completed. Per nursing judgment, provider consulted. Dosing per tracker. Next INR in 7 days per consult with Anticoagulation [facility]. Pt is on injectable anticoagulant: No. Plan used: Consult. See Anticoagulation Track Calendar for dosing and plan details. Anticoagulation Visit Summary: Patient repeats back dosing instructions, date of next INR, and has no further questions at this time. Total time spent with patient: N/A documented in this encounter Plan of Treatment Upcoming Encounters Date Type Department Care Team (Latest Contact Info) Description 12/13/2023 11:50 AM CDT Appointment Department of Laboratory Medicine in [place], [place] [address] [place] [address] Patrick Erickson D.O. [address] [phone] 12/13/2023 12:30 PM CDT Anticoagulation Visit Department of Anticoagulation in [place], [place] [address] [place] [address] Soheila Zapata P.A.-C., M.S. [address] [place] [address] 12/24/2023 10:10 AM CDT Appointment Department of Laboratory Medicine in [place], [place] [address] [place] [phone] Patrick Erickson D.O. [address] [phone] 12/28/2023 1:00 PM CDT Office Visit Department of Internal Medicine in [place], [place] [address] [phone] Patrick Erickson D.O. 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 [address] [place] [phone] PCP - General Internal Medicine 08/12/22 documented as of this encounter
--- OUTSIDE RECORDS SUMMARY | 2023-12-06 08:05 | XMS_ITS | Encounter Summary ---
Author Organization [facility] Address [address] [place] [address] Care Team Providers Care Aluminum Molding Machine Operator Name Role Phone Ptarick Erickson D.O. Primary Care Provider +1- [phone] Reason for Visit * Outpatient (Routine) - Authorized Specialty Diagnoses / Procedures Referred By Prosper t Referred To Contact Anticoagulation Soheila Zapata P.A.-C., M.S. [address] [address] [facility] Referral ID Status Reason Start Date Expiration Date V isits Requested Visits Authorized [id number] Authorized 01/07/2022 01/06/2025 300 300 Encounter Details Date Type Department Care Team (Latest Contact Info) Description 11/02/2023 3:30 PM CDT Anticoagulation Visit Department of Anticoagulation in [place], [place] [address] [place] [address] Soheila Zapata P.A.-C., M.S. 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) Anticoagulant Treatment Social History Tobacco Use Types Packs/Day Years Used Date Smoking Tobacco: Never Smokeless Tobacco: Never Alcohol Use Standard Drinks/Week Comments No 0 (1 standard drink = 0.6 oz pur e alcohol) [facility] Utilities Answer Date Recorded In [...] any clubs o r organizations such as sabianist groups, unions, fraternal or athletic groups, or [...] Answer Date Recorded PHQ-2 Score 0 04/27/2023 [facility] of Occupat [facility] - Occupational Stress Questionnaire Answer Date [...] your living situation today? I have a [facility] place to live 07/01/2023 Education [...] this encounter Patient Instructions * Patient Instructions* Cullen Guillen R.N. - 11/02/2023 3:30 PM CDT Your next INR will be WednesdayNovember 09. You will need to call the Anticoagulation Program for warfarin dosing at the scheduled time for your nurse visit, as indicated on your Patient Appointment Guide (PAG). To reschedule your appointment or for questions about your warfarin, please call Primary Care Anticoagulation Program at [phone] from 7:30 am to 4:30 pm. Wednesday-Wednesday [...] if you start any herbal or other nqqp-iwc-shdbomd product (check with your doctor, a nurse, or pharmacist). If you change your diet significantly. If you decide to stop or start using tobacco or alcohol. If you notice unusual bruising or bleeding. If you notice dark, tarry, or bright red stools or blood in your urine. If you have a painful and swollen calf. documented in this encounter Progress Notes * Cullen Guillen R.N. - 11/02/2023 3:30 PM CDT Warfarin Maintenance Nursing Protocol Goal Range 2.0-3.0 (version approved 04/2021) Visit Type: Telephone Primary reason for visit: Routine f/u OR f/u per previous visit recommendations Information provided by:patient INR result: 2.5 Goal range: 2.0-3.0 Inclusion Criteria: All inclusion criteria met. Proceeded to exclusion criteria. Exclusion Criteria: Section 1: No Section 1 exclusion criteria, proceeded to Section 2. Section 2: No Section 2 exclusion criteria, proceeded to screening criteria. Screening Criteria: Current INR value has changed by greater than or equal to 1 since last INR check: yes. Dose change was made within last 7 days. Protocol does not apply. Provider input required. Additional Info: None Previous INR was subtherapeutic. Today???s INR is Therapeutic. Dosing and follow up recommendation: Protocol does not apply based on positive screening criteria indicated above stating consult required. Consulted Anticoagulation [facility] for plan. Currently bridging: no. INR is therapeutic/supratherapeutic. Additional dosing or follow-up information: Next INR in 8 days per consult with Anticoagulation RP Pt is on injectable anticoagulant: No. Plan [...] CDT Appointment Department of Laboratory Medicine in [address] [address] Patrick Erickson D.O. [address] [place] [phone] 12/13/2023 12:30 PM CDT Anticoagulation Visit Department of Anticoagulation in [place], [place] [address] [place] [address] Soheila Zapata P.A.-C., M.S. [address] [place] [address] 12/24/2023 10:10 AM CDT Appointment Department of Laboratory Medicine in [place], [place] [address] [place] [address] Patrick Erickson D.O. [address] [place] [address] 12/28/2023 1:00 PM CDT Office Visit Department of Internal Medicine in [place], [place] [address] [place] [address] Patrick Erickson D.O. [address], [place] [address] documented as of this encounter Results * INR Reflex, POCT, Blood (11/12/2023 12:09 PM CDT) INR Reflex, POCT, B 2.0 11/12/2023 12:09 PM CDT [id number] Comment: ----ADDITIONAL INFORMATION---- Standard intensity warfarin therapeutic range: 2.0 to 3.0 ?? High intensity warfarin therapeutic range: 2.5 to 3.5 Blood (Blood, Capillary) 11/12/2023 12:09 PM CDT 11/12/2023 12:09 PM CDT Patrick Erickson D.O. LAB POCT ORDERABLE S - DEVICE [facility] [address] [place] [address], 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 [address] [phone] PCP - General Internal Medicine 08/12/22 documented as of this encounter
--- OUTSIDE RECORDS SUMMARY | 2023-12-06 08:05 | XMS_ITS | Encounter Summary ---
Author Organization [facility] Address [address] [place] [address] Care Team Providers Care Telephone Messenger Name Role Phone Patrick Erickson D.O. Primary Care Provider +1- [phone] Encounter Details Date Type Department Care Team (Latest Contact Info) Description 11/12/2023 11:50 AM CDT - 11/12/2023 11:59 PM CDT Hospital Encounter Department of Laboratory Medicine in [place] [address] [place] [phone] Patrick Erickson D.O. 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 More than 4 times per year [...] Answer Date Recorded PHQ-2 Score 0 04/27/2023 [facility] [place] of Occupat ional Health - Occupational Stress [...] your living situation today? I have a [facility] place to live 07/01/2023 Education [...] tablet every day 90 tablet 3 04/21/2023 igwkspr-wzby-hsgse-or eg-capryl 100 mg-150 mg- 50 mg-150 mg capsule Take by mouth 3 (three) times a day. warfarin (JANTOVEN) 5 mg tabletIndications:Hyp ertensive 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 Glomerular Filtration Rate (GFR) 45 To 59 (HCC),Hyperlipidemia On Treatment,Atrial Fibrillation Paroxysmal (HCC),Monitoring For Therapeutic Drug Therapy,Nursing Home (Current) Anticoagulant Treatment Please take as directed by your Anticoagulation Clinic. 15 tablet 08/24/2023 warfarin (JANTOVEN) 5 mg tabletIndications:Hyp ertensive 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 Glomerular Filtration Rate (GFR) 45 To 59 (HCC),Hyperlipidemia On Treatment,Atrial Fibrillation Paroxysmal (HCC),Monitoring For Therapeutic Drug Therapy,Nursing Home (Current) Anticoagulant Treatment Please take as directed by your Anticoagulation Clinic. 120 tablet 3 08/24/2023 documented as of this encounter Plan of Treatment Upcoming Encounters Date Type Department Care Team (Latest Contact Info) Description 12/13/2023 11:50 AM CDT Appointment Department of Laboratory Medicine in [address] [place] [address] Patrick Erickson D.O. [address] [place] [address] 12/13/2023 12:30 PM CDT Anticoagulation Visit Department of Anticoagulation in [place], [place] [address] [place] [address] Soheila Zapata P.A.-C., M.S. [address] [place] [phone] 12/24/2023 10:10 AM CDT Appointment Department of Laboratory Medicine in [place], [place] [address] [place] [address] Patrick Erickson D.O. [address] [place] [address] 12/28/2023 1:00 PM CDT Office Visit Department of Internal Medicine in [place], [place] [address] [place] [address] Patrick Erickson D.O. 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 LAB POCT ORDERABLE S - DEVICE [facility] [address] [place] [address], [facility] FB60 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 [address] [place] [address] PCP - General Internal Medicine 08/12/22 documented as of this encounter
--- OUTSIDE RECORDS SUMMARY | 2023-12-06 08:05 | XMS_ITS | Encounter Summary ---
Author Organization [facility] Address [address] [place] [address] Care Team Providers Care Mangle Roll Operator Name Role Phone Patrick Erickson D.O. Primary Care Provider +1- [phone] Encounter Details Date Type Department Care Team (Latest Contact Info) Description 11/22/2023 3:20 PM CDT - 11/22/2023 11:59 PM CDT Hospital Encounter Department of Laboratory Medicine in [place] [address] [place] [phone] Patrick Erickson D.O. 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 More than 4 times per year 05/30/2022 Do you belong to any clubs o r organizations such as orthodox groups, unions, fraternal or athletic groups, or [...] Answer Date Recorded PHQ-2 Score 0 04/27/2023 [facility] [place] of Occupat ional Health - Occupational Stress [...] your living situation today? I have a [facility] place to live 07/01/2023 Education Answer [...] tablet every day 90 tablet 3 04/21/2023 thtllen-jsrt-naqvm-or eg-capryl 100 mg-150 mg- 50 mg-150 mg capsule Take by mouth 3 (three) times a day. warfarin (JANTOVEN) 5 mg tabletIndications:Hyp ertensive 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 Glomerular Filtration Rate (GFR) 45 To 59 (HCC),Hyperlipidemia On Treatment,Atrial Fibrillation Paroxysmal (HCC),Monitoring For Therapeutic Drug Therapy,Residential (Current) Anticoagulant Treatment Please take as directed by your Anticoagulation Clinic. 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 120 tablet 3 08/24/2023 documented as of this encounter Plan of Treatment Upcoming Encounters Date Type Department Care Team (Latest Contact Info) Description 12/13/2023 11:50 AM CDT Appointment Department of Laboratory Medicine in [place] [address] [address] [facility] [place] [phone] Patrick Erickson D.O. [address] [phone] 12/13/2023 12:30 PM CDT Anticoagulation Visit Department of Anticoagulation in [place], [place] [address] [place] [address] Soheila Zapata P.A.-C., M.S. [address] [address] 12/24/2023 10:10 AM CDT Appointment Department of Laboratory Medicine in [place], [place] [address] [place] [phone] Patrick Erickson D.O. [address] [phone] 12/28/2023 1:00 PM CDT Office Visit Department of Internal Medicine in [place], [place] [address] [address] Patrick Erickson D.O. 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 [address], [place] [address] PCP - General Internal Medicine 08/12/22 documented as of this encounter
--- OUTSIDE RECORDS SUMMARY | 2023-12-06 08:05 | XMS_ITS | Encounter Summary ---
Author Organization [facility] Address [address] [place] [address] Care Team Providers Care Environmental Systems Coordinator Name Role Phone Patrick Erickson D.O. Primary Care Provider +1- [phone] Encounter Details Date Type Department Care Team (Latest Contact Info) Description 12/03/2023 2:50 PM CDT - 12/03/2023 11:59 PM CDT Hospital Encounter Department of Laboratory Medicine in [place] [address] [place] [phone] Patrick Erickson D.O. 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 More than 4 times per year 05/30/2022 Do you belong to any clubs o r organizations such as islam groups, unions, fraternal or athletic groups, or [...] Answer Date Recorded PHQ-2 Score 0 04/27/2023 [facility] [place] of Occupat ional Health - Occupational Stress [...] your living situation today? I have a [facility] place to live 07/01/2023 Education Answer [...] tablet every day 90 tablet 3 04/21/2023 ehyggma-mpwk-tccfk-or eg-capryl 100 mg-150 mg- 50 mg-150 mg capsule Take by mouth 3 (three) times a day. warfarin (JANTOVEN) 5 mg tabletIndications:Hyp ertensive 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 Glomerular Filtration Rate (GFR) 45 To 59 (HCC),Hyperlipidemia On Treatment,Atrial Fibrillation Paroxysmal (HCC),Monitoring For Therapeutic Drug Therapy,[facility] (Current) Anticoagulant Treatment Please take as directed by your Anticoagulation Clinic. 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 120 tablet 3 08/24/2023 documented as of this encounter Plan of Treatment Upcoming Encounters Date Type Department Care Team (Latest Contact Info) Description 12/13/2023 11:50 AM CDT Appointment Department of Laboratory Medicine in [place] [address] [address] [facility] [place] [phone] Patrick Erickson D.O. [address] [phone] 12/13/2023 12:30 PM CDT Anticoagulation Visit Department of Anticoagulation in [place], [place] [address] [place] [address] Soheila Zapata P.A.-C., M.S. [address] [phone] 12/24/2023 10:10 AM CDT Appointment Department of Laboratory Medicine in [place], [place] [address] [place] [address] Patrick Erickson D.O. [address] [address] 12/28/2023 1:00 PM CDT Office Visit Department of Internal Medicine in [place], [place] [address] [address] Patrick Erickson D.O. 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 High intensity warfarin therapeutic range: 2.5 to 3.5 Blood 12/03/2023 3:01 PM CDT 12/03/2023 5:54 PM CDT Patrick Erickson D.O. LAB BLOOD ADD-ON Performing Organization Address City/[facility] Co de Phone Number [facility] [address] [place] [address], [place] OWAT [facility] in [place] [address] [place] [address] * (ABNORMAL) INR Reflex, POCT, Blood (12/03/2023 2:57 PM CDT) INR Reflex, POCT, B 5.3(CH) 12/03/2023 2:56 PM CDT [id number] Comment: ----ADDITIONAL INFORMATION---- Standard intensity warfarin therapeutic range: 2.0 to 3.0 ?? High intensity warfarin therapeutic range: 2.5 to 3.5 Blood (Blood, Capillary) 12/03/2023 2:57 PM CDT 12/03/2023 2:56 PM CDT Patrick Erickson D.O. LAB POCT ORDERABLE S - DEVICE Performing Organization Address City/[facility]/ZIP Co de Phone Number [facility] [address] [place] [address], [place] FB60 [facility] in [place] [address] [place] [address] documented in this encounter Visit Diagnoses Diagnosis 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 Or Unspecified Chronic Kidney Disease (HCC) Hyperlipidemia On Treatment Atrial Fibrillation Paroxysmal (HCC) Monitoring For Therapeutic Drug Therapy Fci (Current) Anticoagulant Treatment documented in this encounter Additional Health Concerns Infection Onset Date Last Indicated Resolved Time COVID19 11/26/2023 11/26/2023 Assessment Noted Time PHQ-9 Depression Total Score: 9 02/23/20 7:41 PM SALES LEAD documented as of this encounter Care Teams Environmental Systems Coordinator Relationship Specialty Start Date End Date Patrick Erickson D.O. [address] [phone] PCP - General Internal Medicine 08/12/22 documented as of this encounter
--- OUTSIDE RECORDS SUMMARY | 2023-12-06 08:06 | XMS_ITS | Encounter Summary ---
Author Organization [facility] Address [address] [place] [address] Care Team Providers Care Client Support Associate Name Role Phone Patrick Erickson D.O. Primary Care Provider +1- [phone] Reason for Visit * Outpatient (Routine) - Authorized Specialty Diagnoses / Procedures Referred By Prosper t Referred To Contact Anticoagulation Soheila Zapata P.A.-C., M.S. [address] [address] [facility] Referral ID Status Reason Start Date Expiration Date V isits Requested Visits Authorized [id number] Authorized 01/07/2022 01/06/2025 300 300 Encounter Details Date Type Department Care Team (Latest Contact Info) Description 10/28/2023 3:30 PM CDT Anticoagulation Visit Department of Anticoagulation in [place], [place] [address] [place] [address] oSheila Zapata P.A.-C., M.S. 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 More than 4 times per year 05/30/2022 Do you belong to any clubs o r organizations such as taoism groups, unions, fraternal or athletic groups, or [...] Answer Date Recorded PHQ-2 Score 0 04/27/2023 [facility] [place] [facility] - Occupational Stress Questionnaire Answer Date [...] your living situation today? I have a [facility] place to live 07/01/2023 Education Answer [...] this encounter Patient Instructions * Patient Instructions* Grace Oneill R.N. - 10/28/2023 3:30 PM CDT Your next INR will be 11/02/2023. You will need to call the Anticoagulation Program for warfarin dosing at the scheduled time for your nurse visit, as indicated on your Patient Appointment Guide (PAG). To reschedule your appointment or for questions about your warfarin, please call Primary Care Anticoagulation Program at [phone] from 7:30 am to 4:30 pm. Wednesday-Wednesday [...] if you start any herbal or other [id number] product (check with your doctor, a nurse, or pharmacist). If you change your diet significantly. If you decide to stop or start using tobacco or alcohol. If you notice unusual bruising or bleeding. If you notice dark, tarry, or bright red stools or blood in your urine. If you have a painful and swollen calf. documented in this encounter Progress Notes * Grace Oneill R.N. - 10/28/2023 3:30 PM CDT Warfarin Maintenance Nursing Protocol Goal Range 2.0-3.0 (version approved 04/2021) Visit Type: Telephone Primary reason for visit: Routine f/u OR f/u per previous visit recommendations Information provided by:patient INR result: 1.5 Goal range: 2.0-3.0 Inclusion Criteria: All inclusion [...] maintenance warfarin dosing and follow-up. Additional Info: None Previous INR was therapeutic. Today???s INR is Subtherapeutic, Causes: Unknown. Dosing and follow up recommendation: Protocol dosing range for INR 1.5-1.7: Consult required due to indication: no. Increase last 7 daysdosing by 10%. Currently bridging: no. Next INR in 5-7 days. Additional dosing or follow-up information: None. Pt [...] CDT Appointment Department of Laboratory Medicine in [address] [phone] Patrick Erickson D.O. [address] [place] [address] 12/13/2023 12:30 PM CDT Anticoagulation Visit Department of Anticoagulation in [place], [place] [address] [place] [address] Soheila Zapata P.A.-C., M.S. [address] [place] [phone] 12/24/2023 10:10 AM CDT Appointment Department of Laboratory Medicine in [place], [place] [address] [place] [address] Patrick Erickson D.O. [address], [place] [address] 12/28/2023 1:00 PM CDT Office Visit Department of Internal Medicine in [place], [place] [address] [place] [address] Patrick Erickson D.O. [address] [place] [address] documented as of this encounter Results * [...] LAB POCT ORDERABLE S - DEVICE 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 [address] [phone] PCP - General Internal Medicine 08/12/22 documented as of this encounter
--- OUTSIDE RECORDS SUMMARY | 2023-12-06 08:06 | XMS_ITS | Encounter Summary ---
Author Organization [facility] Address [address] [place] [address] Care Team Providers Care Contracts Law Professor Name Role Phone Patrick Erickson D.O. Primary Care Provider +1- [phone] Encounter Details Date Type Department Care Team (Latest Contact Info) Description 09/24/2023 2:50 PM CDT - 09/24/2023 11:59 PM CDT Hospital Encounter Department of Laboratory Medicine in [place] [address] [place] [phone] Patrick Erickson D.O. 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 More than 4 times per year [...] Answer Date Recorded PHQ-2 Score 0 04/27/2023 [facility] [place] of Occupat ional Health - Occupational Stress [...] living situation today? I have a [facility] place to live 07/01/2023 Education Answer Date [...] tablet every day 90 tablet 3 04/21/2023 dgmbcpg-rukb-pauge-or eg-capryl 100 mg-150 mg- 50 mg-150 mg capsule Take by mouth 3 (three) times a day. warfarin (JANTOVEN) 5 mg tabletIndications:Hyp ertensive 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 Glomerular Filtration Rate (GFR) 45 To 59 (HCC),Hyperlipidemia On Treatment,Atrial Fibrillation Paroxysmal (HCC),Monitoring For Therapeutic Drug Therapy,Long-Term (Current) Anticoagulant Treatment Please take as directed by your Anticoagulation Clinic. 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 120 tablet 3 08/24/2023 documented as of this encounter Plan of Treatment Upcoming Encounters Date Type Department Care Team (Latest Contact Info) Description 12/13/2023 11:50 AM CDT Appointment Department of Laboratory Medicine in [place] [address] [address] [facility] [phone] Patrick Erickson D.O. [address] [address] 12/13/2023 12:30 PM CDT Anticoagulation Visit Department of Anticoagulation in [place], [place] [address] [place] [address] Soheila Zapata P.A.-C., M.S. [address] [address] 12/24/2023 10:10 AM CDT Appointment Department of Laboratory Medicine in [place], [place] [address] [place] [phone] Patrick Erickson D.O. [address] [address] 12/28/2023 1:00 PM CDT Office Visit Department of Internal Medicine in [place], [place] [address] [address] Patrick Erickson D.O. [address] [address] documented as of this encounter Procedures Procedure Name Priority Date/Time Associated Diagnosis Comments INR REFLEX, POCT, B Routine 09/24/2023 3:14 PM CDT 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 Glomerular Filtration Rate (GFR) 45 To 59 (HCC) Hyperlipidemia On Treatment Atrial Fibrillation Paroxysmal (HCC) Monitoring For Therapeutic Drug Therapy Long-Term (Current) Anticoagulant Treatment documented in this encounter Results * INR Reflex, POCT, Blood (09/24/2023 3:14 PM CDT) INR Reflex, POCT, B 3.9 09/24/2023 3:13 PM CDT [id number] Comment: ----ADDITIONAL INFORMATION---- Standard intensity warfarin therapeutic range: 2.0 to 3.0 ?? High intensity warfarin therapeutic range: 2.5 to 3.5 Blood (Blood, Capillary) 09/24/2023 3:14 PM CDT 09/24/2023 3:13 PM CDT Patrick Erickson D.O. 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 [address], [place] [phone] PCP - General Internal Medicine 08/12/22 documented as of this encounter
--- OUTSIDE RECORDS SUMMARY | 2023-12-06 08:06 | XMS_ITS | Encounter Summary ---
Author Organization [facility] Address [address] [place] [address] Care Team Providers Care Turning Machine Operator Helper Name Role Phone Patrick Erickson D.O. Primary Care Provider +1- [phone] Encounter Details Date Type Department Care Team (Latest Contact Info) Description 10/07/2023 2:49 PM CDT - 10/07/2023 11:59 PM CDT Hospital Encounter Department of Laboratory Medicine in [place], [place] [address] [place] [phone] Patrick Erickson D.O. [address] [place] [phone] Atrial Fibrillation Paroxysmal (HCC) Discharge Disposition: Home or Self Care Social History Tobacco Use Types Packs/Day Years Used Date Smoking Tobacco: Never Smokeless Tobacco: Never Alcohol Use Standard Drinks/Week Comments No 0 (1 standard drink = 0.6 oz pur e alcohol) [facility] Utilities Answer Date Recorded In the [...] How often do you attend chur or confucianism services? More than 4 times per year 05/30/2022 Do you belong to any clubs o r organizations such as quaker groups, unions, fraternal or athletic groups, or [...] Answer Date Recorded PHQ-2 Score 0 04/27/2023 [facility] of Occupat ional Health - Occupational Stress [...] tablet every day 90 tablet 3 04/21/2023 emhifwv-ivgz-uziup-or eg-capryl 100 mg-150 mg- 50 mg-150 mg capsule Take by mouth 3 (three) times a day. 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 120 tablet 3 08/24/2023 documented as of this encounter Plan of Treatment Upcoming Encounters Date Type Department Care Team (Latest Contact Info) Description 12/13/2023 11:50 AM CDT Appointment Department of Laboratory Medicine in [place], [place] [address] [place] [phone] Patrick Erickson D.O. [address] [place] [address] 12/13/2023 12:30 PM CDT Anticoagulation Visit Department of Anticoagulation in [place], [place] [address] [place] [address] Soheila Zapata P.A.-C., M.S. [address] [place] [phone] 12/24/2023 10:10 AM CDT Appointment Department of Laboratory Medicine in [place], [place] [address] [place] [phone] Patrick Erickson D.O. [address] [address] 12/28/2023 1:00 PM CDT Office Visit Department of Internal Medicine in [place], [place] [address] [place] [address] Patrick Erickson D.O. [address] [place] [address] documented as of this encounter Procedures Procedure Name Priority Date/Time Associated Diagnosis Comments INR REFLEX, POCT, B Routine 10/07/2023 2:55 PM CDT Atrial Fibrillation Paroxysmal (HCC) documented in this encounter Results * INR Reflex, POCT, Blood (10/07/2023 2:55 PM CDT) INR Reflex, POCT, B 3.4 10/07/2023 2:54 PM CDT [id number] Comment: ----ADDITIONAL INFORMATION---- Standard intensity warfarin therapeutic range: 2.0 to 3.0 ?? High intensity warfarin therapeutic range: 2.5 to 3.5 Blood (Blood, Capillary) 10/07/2023 2:55 PM CDT 10/07/2023 2:54 PM CDT Patrick Erickson D.O. 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 [address] [place] [address] PCP - General Internal Medicine 08/12/22 documented as of this encounter
--- OUTSIDE RECORDS SUMMARY | 2023-12-06 08:06 | XMS_ITS | Encounter Summary ---
Author Organization [facility] Address [address] [place] [address] Care Team Providers Care Cloth Painter Name Role Phone Patrick Erickson D.O. Primary Care Provider +1- [phone] Reason for Visit * Reason Onset Date Comments Anticoagulation 10/01/2023 Out of range INR . Encounter Details Date Type Department Care Team (Latest Contact Info) Description 10/01/2023 Clinical Communication Department of Anticoagulation in [place], [place] [address] [place] [address] La Mendoza, RHowieNHowie Anticoagulation (Out of range INR.) Social History Tobacco Use Types Packs/Day Years Used Date Smoking Tobacco: Never Smokeless Tobacco: Never Alcohol Use Standard Drinks/Week Comments No 0 (1 standard drink = 0.6 oz pur e alcohol) [facility] Utilities Answer Date Recorded In the past 12 months has [employer], gas, oil, or water [employer] threatened to shut off services in your [...] often do you attend chur ch or catholic services? More than 4 times per year 05/30/2022 Do you belong to any clubs o r organizations such as sabianism groups, unions, fraternal or athletic groups, or [...] Answer Date Recorded PHQ-2 Score 0 04/27/2023 [facility] of Occupat ional Health - Occupational Stress [...] your living situation today? I have a [facility] place to live 07/01/2023 Education [...] encounter Miscellaneous Notes * Telephone Encounter - La Mendoza RHowieN. - 10/01/2023 3:52 PM CDT Patient contacted today by staff as they have not contacted the anticoagulation program following INR test. INR No communication outcome: Attempted to reach patient due to INR out of goal range. documented in this encounter Plan of Treatment Upcoming Encounters Date Type Department Care Team (Latest Contact Info) Description 12/13/2023 11:50 AM CDT Appointment Department of Laboratory Medicine in [place], [place] [address] [place] [phone] Patrick Erickson D.O. [address] [address] 12/13/2023 12:30 PM CDT Anticoagulation Visit Department of Anticoagulation in [place], [place] [address] [place] [address] Soheila Zapata P.A.-C., M.S. [address] [phone] 12/24/2023 10:10 AM CDT Appointment Department of Laboratory Medicine in [place], [place] [address] [place] [phone] Patrick Erickson D.O. [address] [phone] 12/28/2023 1:00 PM CDT Office Visit Department of Internal Medicine in [place], [place] [address] [phone] Patrick Erickson D.O. 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 [address] [address] PCP - General Internal Medicine 08/12/22 documented as of this encounter
--- OUTSIDE RECORDS SUMMARY | 2023-12-06 08:06 | XMS_ITS | Encounter Summary ---
Author Organization [facility] Address [address] [place] [address] Care Team Providers Care Echocardiography Technologist Name Role Phone Patrick Erickson D.O. Primary Care Provider +1- [phone] Encounter Details Date Type Department Care Team (Latest Contact Info) Description 10/15/2023 2:50 PM CDT - 10/15/2023 11:59 PM CDT Hospital Encounter Department of Laboratory Medicine in [place] [address] [place] [phone] Patrick Erickson D.O. [address] [place] [phone] 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 Or Unspecified Chronic Kidney Disease (HCC); Hyperlipidemia On Treatment; Atrial Fibrillation Paroxysmal (HCC); Monitoring For Therapeutic Drug Therapy; Train System Operator (Current) Anticoagulant Treatment Discharge Disposition: Home or Self Care Social History Tobacco Use Types Packs/Day Years Used Date Smoking Tobacco: Never Smokeless Tobacco: Never Alcohol Use Standard Drinks/Week Comments No 0 (1 standard drink = 0.6 oz pur e alcohol) [facility] Utilities Answer Date Recorded In the past 12 months has th e electric, gas, oil, or water [employer] threatened to shut off services in your [...] any clubs o r organizations such as zoroastrianism groups, unions, fraternal or athletic groups, or [...] Answer Date Recorded PHQ-2 Score 0 04/27/2023 [facility] of Occupat ional Health - Occupational Stress [...] your living situation today? I have a [facility] place to live 07/01/2023 Education Answer [...] tablet every day 90 tablet 3 04/21/2023 rzfqqal-qlkj-nuqdj-or eg-capryl 100 mg-150 mg- 50 mg-150 mg capsule Take by mouth 3 (three) times a day. 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 120 tablet 3 08/24/2023 documented as of this encounter Plan of Treatment Upcoming Encounters Date Type Department Care Team (Latest Contact Info) Description 12/13/2023 11:50 AM CDT Appointment Department of Laboratory Medicine in [place] [address] [facility] [place] [phone] Patrick Erickson D.O. [address] [address] 12/13/2023 12:30 PM CDT Anticoagulation Visit Department of Anticoagulation in [address] [place] [address] Soheila Zapata P.A.-C., M.S. [address] [phone] 12/24/2023 10:10 AM CDT Appointment Department of Laboratory Medicine in [place], [place] [address] [place] [phone] Patrick Erickson D.O. [address] [address] 12/28/2023 1:00 PM CDT Office Visit Department of Internal Medicine in [place], [place] [address] [address] Patrick Erickson D.O. [address] [phone] documented as of this encounter Procedures Procedure Name Priority Date/Time Associated Diagnosis Comments INR REFLEX, POCT, B Routine 10/15/2023 3:09 PM CDT 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 Or Unspecified Chronic Kidney Disease (HCC) Hyperlipidemia On Treatment Atrial Fibrillation Paroxysmal (HCC) Monitoring For Therapeutic Drug Therapy Train System Operator (Current) Anticoagulant Treatment documented in this encounter Results * INR Reflex, POCT, Blood (10/15/2023 3:09 PM CDT) INR Reflex, POCT, B 2.3 10/15/2023 3:08 PM CDT [id number] Comment: ----ADDITIONAL INFORMATION---- Standard intensity warfarin therapeutic range: 2.0 to 3.0 ?? High intensity warfarin therapeutic range: 2.5 to 3.5 Blood (Blood, Capillary) 10/15/2023 3:09 PM CDT 10/15/2023 3:08 PM CDT Patrick Erickson D.O. LAB POCT ORDERABLE S - DEVICE [facility] [address] [place] [address], [facility] FB60 [facility] in [place] [address] [place] [address] documented in this encounter Visit Diagnoses Diagnosis 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 Or Unspecified Chronic Kidney Disease (HCC) Hyperlipidemia On Treatment Atrial Fibrillation Paroxysmal (HCC) Monitoring For Therapeutic Drug Therapy Train System Operator (Current) Anticoagulant Treatment documented in this encounter Additional Health Concerns Assessment Noted Time PHQ-9 Depression Total Score: 9 02/23/20 23 7:41 PM PHOTOENGRAVING FINISHER documented as of this encounter Care Teams Echocardiography Technologist Relationship Specialty Start Date End Date Patrick Erickson D.O. [address], [place] [address] PCP - General Internal Medicine 08/12/22 documented as of this encounter
--- OUTSIDE RECORDS SUMMARY | 2023-12-06 08:06 | XMS_ITS | Encounter Summary ---
Author Organization [facility] Address [address] [place] [address] Care Team Providers Care Card Assembler Name Role Phone Patrick Erickson D.O. Primary Care Provider +1- [phone] Encounter Details Date Type Department Care Team (Latest Contact Info) Description 10/28/2023 2:50 PM CDT - 10/28/2023 11:59 PM CDT Hospital Encounter Department of Laboratory Medicine in [place] [address] [place] [phone] Patrick Erickson D.O. [address] [place] [phone] 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 Or Unspecified Chronic Kidney Disease (HCC); Hyperlipidemia On Treatment; Atrial Fibrillation Paroxysmal (HCC); Monitoring For Therapeutic Drug Therapy; Electrical Mechanical Technician (Current) Anticoagulant Treatment Discharge Disposition: Home or Self Care Social History Tobacco Use Types Packs/Day Years Used Date Smoking Tobacco: Never Smokeless Tobacco: Never Alcohol Use Standard Drinks/Week Comments No 0 (1 standard drink = 0.6 oz pur e alcohol) [facility] Utilities Answer Date Recorded In the past 12 months has th e electric, gas, oil, or water [employer] threatened to shut off services in your [...] often do you attend chur ch or scientologist services? More than 4 times per year 05/30/2022 Do you belong to any clubs o r organizations such as shinto groups, unions, fraternal or athletic groups, or [...] Answer Date Recorded PHQ-2 Score 0 04/27/2023 [facility] of Occupat ional Health - Occupational Stress [...] your living situation today? I have a [facility] place to live 07/01/2023 Education Answer [...] tablet every day 90 tablet 3 04/21/2023 qvzfeoo-azex-eytni-or eg-capryl 100 mg-150 mg- 50 mg-150 mg capsule Take by mouth 3 (three) times a day. 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 120 tablet 3 08/24/2023 documented as of this encounter Plan of Treatment Upcoming Encounters Date Type Department Care Team (Latest Contact Info) Description 12/13/2023 11:50 AM CDT Appointment Department of Laboratory Medicine in [place] [address] [facility] [place] [phone] Patrick Erickson D.O. [address] [address] 12/13/2023 12:30 PM CDT Anticoagulation Visit Department of Anticoagulation in [place], [place] [address] [place] [address] Soheila Zapata P.A.-C., M.S. [address] [phone] 12/24/2023 10:10 AM CDT Appointment Department of Laboratory Medicine in [place], [place] [address] [place] [phone] Patrick Erickson D.O. [address] [phone] 12/28/2023 1:00 PM CDT Office Visit Department of Internal Medicine in [place], [place] [address] [phone] Patrick Erickson D.O. [address] [phone] documented as of this encounter Procedures Procedure Name Priority Date/Time Associated Diagnosis Comments INR REFLEX, POCT, B Routine 10/28/2023 3:00 PM CDT 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 Or Unspecified Chronic Kidney Disease (HCC) Hyperlipidemia On Treatment Atrial Fibrillation Paroxysmal (HCC) Monitoring For Therapeutic Drug Therapy Electrical Mechanical Technician (Current) Anticoagulant Treatment documented in this encounter Results * INR Reflex, POCT, Blood (10/28/2023 3:00 PM CDT) INR Reflex, POCT, B 1.5 10/28/2023 2:59 PM CDT [id number] Comment: ----ADDITIONAL INFORMATION---- Standard intensity warfarin therapeutic range: 2.0 to 3.0 ?? High intensity warfarin therapeutic range: 2.5 to 3.5 Blood (Blood, Capillary) 10/28/2023 3:00 PM CDT 10/28/2023 2:59 PM CDT Patrick Erickson D.O. LAB POCT ORDERABLE S - DEVICE [facility] [address] [place] [address], [facility] FB60 [facility] in [place] [address] [place] [address] documented in this encounter Visit Diagnoses Diagnosis 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 Or Unspecified Chronic Kidney Disease (HCC) Hyperlipidemia On Treatment Atrial Fibrillation Paroxysmal (HCC) Monitoring For Therapeutic Drug Therapy Electrical Mechanical Technician (Current) Anticoagulant Treatment documented in this encounter Additional Health Concerns Assessment Noted Time PHQ-9 Depression Total Score: 9 02/23/20 23 7:41 PM EMPLOYMENT 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 [address] [address] PCP - General Internal Medicine 08/12/22 documented as of this encounter
--- OUTSIDE RECORDS SUMMARY | 2023-12-06 08:06 | XMS_ITS | Encounter Summary ---
Author Organization [facility] Address [address] [place] [address] Care Team Providers Care Vp Patient Name Role Phone Patrick Erickson D.O. Primary Care Provider +1- [phone] Reason for Visit * Outpatient (Routine) - Authorized Specialty Diagnoses / Procedures Referred By Prosper t Referred To Contact Anticoagulation Soheila Zapata P.A.-C., M.S. [address] [address] [facility] Referral ID Status Reason Start Date Expiration Date V isits Requested Visits Authorized [id number] Authorized 01/07/2022 01/06/2025 300 300 Encounter Details Date Type Department Care Team (Latest Contact Info) Description 09/24/2023 3:30 PM CDT Anticoagulation Visit Department of Anticoagulation in [place], [place] [address] [place] [address] Soheila Zapata P.A.-C., M.S. 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 More than 4 times per year 05/30/2022 Do you belong to any clubs o r organizations such as gnosticism groups, unions, fraternal or athletic groups, or [...] Answer Date Recorded PHQ-2 Score 0 04/27/2023 [facility] [place] [facility] Occupat [facility] - Occupational Stress Questionnaire Answer Date [...] your living situation today? I have a [facility] place to live 07/01/2023 Education [...] this encounter Patient Instructions * Patient Instructions* Herminia Harris R.N. - 09/24/2023 3:30 PM CDT Your next INR will be 09/29/23. You will need to call the Anticoagulation Program for warfarin dosing at the scheduled time for your nurse visit, as indicated on your Patient Appointment Guide (PAG). To reschedule your appointment or for questions about your warfarin, please call Primary Care Anticoagulation Program at [phone] from 7:30 am to 4:30 pm. Wednesday-Wednesday [...] if you start any herbal or other gmjk-xxm-nfndaen product (check with your doctor, a nurse, or pharmacist). If you change your diet significantly. If you decide to stop or start using tobacco or alcohol. If you notice unusual bruising or bleeding. If you notice dark, tarry, or bright red stools or blood in your urine. If you have a painful and swollen calf. documented in this encounter Progress Notes * Herminia Harris R.N. - 09/24/2023 3:30 PM CDT Warfarin Maintenance Nursing Protocol Goal Range 2.0-3.0 (version approved 04/2021) Visit Type: Telephone Primary reason for visit: Routine f/u OR f/u per previous visit recommendations Information provided by:patient INR result: 3.9 Goal range: 2.0-3.0 Inclusion Criteria: All inclusion criteria met. Proceeded to exclusion criteria. Exclusion Criteria: Section 1: No Section 1 exclusion criteria, proceeded to Section 2. Section 2: Patient has developed symptoms of active bleeding (e.g. melena, hematochezia, gross hematuria, hemoptysis) since last INR check that has NOT been assessed by a provider. Protocol does not apply. Provider input required. Bleeding description: Other bleeding: Left eye looks like pink eye today. No pain or vision changes. No trauma to eye noted Screening Criteria: Current INR value has changed by greater than or equal to 1 since last INR check: yes. Dose change was made within last 7 days. Protocol does not apply. Provider input required. Additional Info: Patient is still using the same cranberry tablets and is still using the same 1/3 can of CBD drink mixed in juice. . Previous INR was supratherapeutic. Today???s INR is Supratherapeutic, Causes: See above positive screening criteria/additional information sections.. Dosing and follow up recommendation: Protocol does not apply based on positive screening criteria indicated above stating consult required. Consulted Anticoagulation [facility] for plan. Currently bridging: no. INR is therapeutic/supratherapeutic. Additional dosing or follow-up information: Provider consulted: Edna Sevilla- Anticoagulation [facility] Pt is on injectable anticoagulant: No. Plan used: Consult. See Anticoagulation Track Calendar for dosing and plan details. Anticoagulation Visit Summary: Patient repeats back dosing instructions, date of next INR, and has no further questions at this time. Total time spent with patient: 13 minutes documented in this encounter Plan of Treatment Upcoming Encounters Date Type Department Care Team (Latest Contact Info) Description 12/13/2023 11:50 AM CDT Appointment Department of Laboratory Medicine in [place], [place] [address] [place] [address] Patrick Erickson D.O. [address] [phone] 12/13/2023 12:30 PM CDT Anticoagulation Visit Department of Anticoagulation in [place], [place] [address] [place] [address] Soheila Zapata P.A.-C., M.S. [address] [address] 12/24/2023 10:10 AM CDT Appointment Department of Laboratory Medicine in [address] [address] Patrick Erickson D.O. [address] [phone] 12/28/2023 1:00 PM CDT Office Visit Department of Internal Medicine in [place], [place] [address] [address] Patrick Erickson D.O. [address] [address] documented as of this encounter Results * INR Reflex, POCT, Blood (10/01/2023 3:00 PM CDT) INR Reflex, POCT, B 3.4 10/01/2023 3:00 PM CDT OW Comment: ----ADDITIONAL INFORMATION---- Standard intensity warfarin therapeutic range: 2.0 to 3.0 ?? High intensity warfarin therapeutic range: 2.5 to 3.5 Blood (Blood, Capillary) 10/01/2023 3:00 PM CDT 10/01/2023 3:00 PM CDT Patrick Erickson D.O. 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 [address] [place] [address] PCP - General Internal Medicine 08/12/22 documented as of this encounter
--- OUTSIDE RECORDS SUMMARY | 2023-12-06 08:06 | XMS_ITS | Encounter Summary ---
Author Organization [facility] Address [address] [place] [address] Care Team Providers Care Bulldozer Mechanic Name Role Phone Patrick Erickson D.O. Primary Care Provider +1- [phone] Reason for Visit * Outpatient (Routine) - Authorized Specialty Diagnoses / Procedures Referred By Prosper t Referred To Contact Anticoagulation Soheila Zapata P.A.-C., M.S. [address] [address] [facility] Referral ID Status Reason Start Date Expiration Date V isits Requested Visits Authorized [id number] Authorized 01/07/2022 01/06/2025 300 300 Encounter Details Date Type Department Care Team (Latest Contact Info) Description 10/19/2023 10:10 AM CDT Anticoagulation Visit Department of Anticoagulation in [place], [place] [address] [place] [address] Soheila Zapata P.A.-C., M.S. 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 More than 4 times per year 05/30/2022 Do you belong to any clubs o r organizations such as tenriism groups, unions, fraternal or athletic groups, or [...] Answer Date Recorded PHQ-2 Score 0 04/27/2023 [facility] - Occupational Stress Questionnaire Answer Date [...] living situation today? I have a [facility] place to live 07/01/2023 Education Answer Date [...] * Patient Instructions* Neha Varghese R.N. - 10/19/2023 10:10 AM CDT Your next INR will be 8/22. You will need to call the Anticoagulation Program for warfarin dosing at the scheduled time for your nurse visit, as indicated on your Patient Appointment Guide (PAG). To reschedule your appointment or for questions about your warfarin, please call Primary Care Anticoagulation Program at [phone] from 7:30 am to 4:30 pm. Wednesday-Wednesday [...] if you start any herbal or other kcas-wda-yxegjei product (check with your doctor, a nurse, [...] Progress Notes * Neha Varghese R.N. - 10/19/2023 10:10 AM CDT Warfarin Maintenance Nursing Protocol Goal Range 2.0-3.0 (version approved 04/2021) Visit Type: Telephone Primary reason for visit: Routine f/u OR f/u per previous visit recommendations Information provided by:patient INR result: 2.3 Goal range: 2.0-3.0 Inclusion Criteria: All inclusion criteria met. Proceeded to exclusion criteria. Exclusion Criteria: Section 1: No Section 1 exclusion criteria, proceeded to Section 2. Section 2: INR collection date and time greater than 72 hours old. Protocol does not apply. Provider input required. Screening Criteria: Current INR value has changed by greater than or equal to 1 since last INR check: yes. Dose change was made within last 7 days. Protocol does not apply. Provider input required. Additional Info: None Previous INR was subtherapeutic. Today???s INR is Therapeutic. Dosing and follow up recommendation: Protocol does not apply based on positive exclusion criteria indicated above stating consult required. Consulted Anticoagulation [facility] for plan. Currently bridging: no. INR is therapeutic/supratherapeutic. Additional dosing or follow-up information: Provider consulted: Champ Fenton- Anticoagulation [facility] Pt is on injectable anticoagulant: No. Plan [...] CDT Appointment Department of Laboratory Medicine in [address] [address] Patrick Erickson D.O. [address], [place] [address] 12/13/2023 12:30 PM CDT Anticoagulation Visit Department of Anticoagulation in [place], [place] [address] [place] [address] Soheila Zapata P.A.-C., M.S. [address] [place] [address] 12/24/2023 10:10 AM CDT Appointment Department of Laboratory Medicine in [place], [place] [address] [place] [address] Patrick Erickson D.O. [address], [place] [address] 12/28/2023 1:00 PM CDT Office Visit Department of Internal Medicine in [place], [place] [address], [place] [address] Patrick Erickson D.O. [address], [place] [address] documented as of this encounter Results * [...] D.O. LAB POCT ORDERABLE S - DEVICE [facility] [address] [place] [address], [facility] FB[address] 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 [address] [phone] PCP - General Internal Medicine 08/12/22 documented as of this encounter
--- OUTSIDE RECORDS SUMMARY | 2023-12-06 08:06 | XMS_ITS | Encounter Summary ---
Author Organization [facility] Address [address] [place] [address] Care Team Providers Care Dredge Worker Name Role Phone Patrick Erickson D.O. Primary Care Provider +1- [phone] Encounter Details Date Type Department Care Team (Latest Contact Info) Description 10/01/2023 2:30 PM CDT - 10/01/2023 11:59 PM CDT Hospital Encounter Department of Laboratory Medicine in [place], [place] [address] [place] [address] Patrick Erickson D.O. 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 More than 4 times per year 05/30/2022 Do you belong to any clubs o r organizations such as temple groups, unions, fraternal or athletic groups, or [...] Answer Date Recorded PHQ-2 Score 0 04/27/2023 [facility] [place] of Occupat ional Health - Occupational Stress [...] living situation today? I have a [facility] place to live 07/01/2023 Education [...] tablet every day 90 tablet 3 04/21/2023 noyehlg-hgyz-akesi-or eg-capryl 100 mg-150 mg- 50 mg-150 mg capsule Take by mouth 3 (three) times a day. warfarin (JANTOVEN) 5 mg tabletIndications:Hyp ertensive 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 Glomerular Filtration Rate (GFR) 45 To 59 (HCC),Hyperlipidemia On Treatment,Atrial Fibrillation Paroxysmal (HCC),Monitoring For Therapeutic Drug Therapy,Group Home (Current) Anticoagulant Treatment Please take as directed by your Anticoagulation Clinic. 15 tablet 08/24/2023 warfarin (JANTOVEN) 5 mg tabletIndications:Hyp ertensive 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 Glomerular Filtration Rate (GFR) 45 To 59 (HCC),Hyperlipidemia On Treatment,Atrial Fibrillation Paroxysmal (HCC),Monitoring For Therapeutic Drug Therapy,Benefits Assistant (Current) Anticoagulant Treatment Please take as directed by your Anticoagulation Clinic. 120 tablet 3 08/24/2023 documented as of this encounter Plan of Treatment Upcoming Encounters Date Type Department Care Team (Latest Contact Info) Description 12/13/2023 11:50 AM CDT Appointment Department of Laboratory Medicine in [place] [address] [facility] [phone] Patrick Erickson D.O. [address] [address] 12/13/2023 12:30 PM CDT Anticoagulation Visit Department of Anticoagulation in [place], [place] [address] [place] [address] Soheila Zapata P.A.-C., M.S. [address] [place] [address] 12/24/2023 10:10 AM CDT Appointment Department of Laboratory Medicine in [place], [place] [address] [place] [address] Patrick Erickson D.O. [address] [phone] 12/28/2023 1:00 PM CDT Office Visit Department of Internal Medicine in [place], [place] [address] [address] Patrick Erickson D.O. [address] [phone] documented as of this encounter Procedures Procedure Name Priority Date/Time Associated Diagnosis Comments INR REFLEX, POCT, B Routine 10/01/2023 3:00 PM CDT 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 Glomerular Filtration Rate (GFR) 45 To 59 (HCC) Hyperlipidemia On Treatment Atrial Fibrillation Paroxysmal (HCC) Monitoring For Therapeutic Drug Therapy Group Home (Current) Anticoagulant Treatment documented in this encounter Results * INR Reflex, POCT, Blood (10/01/2023 3:00 PM CDT) INR Reflex, POCT, B 3.4 10/01/2023 3:00 PM CDT OWAT Comment: ----ADDITIONAL INFORMATION---- Standard intensity warfarin therapeutic range: 2.0 to 3.0 ?? High intensity warfarin therapeutic range: 2.5 to 3.5 Blood (Blood, Capillary) 10/01/2023 3:00 PM CDT 10/01/2023 3:00 PM CDT Patrick Erickson D.O. LAB POCT ORDERABLE S - DEVICE [facility] [address] [place] [address], [facility] OWAT [facility] in [place] [address] [place] [address] documented in this encounter Visit Diagnoses Diagnosis 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 Glomerular Filtration Rate (GFR) 45 To 59 (HCC) Hyperlipidemia On Treatment Atrial Fibrillation Paroxysmal (HCC) Monitoring For Therapeutic Drug Therapy Group Home (Current) Anticoagulant Treatment documented in this encounter Additional Health Concerns Assessment Noted Time PHQ-9 Depression Total Score: 9 02/23/20 23 7:41 PM 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 [address] [place] [address] PCP - General Internal Medicine 08/12/22 documented as of this encounter
--- OUTSIDE RECORDS SUMMARY | 2023-12-06 08:06 | XMS_ITS | Encounter Summary ---
Author Organization [facility] Address [address] [place] [address] Care Team Providers Care Van Owner Operator Name Role Phone Patrick Erickson D.O. Primary Care Provider +1- [phone] Reason for Visit * Outpatient (Routine) - Authorized Specialty Diagnoses / Procedures Referred By Prosper t Referred To Contact Anticoagulation Soheila Zapata P.A.-C., M.S. [address] [address] [facility] Referral ID Status Reason Start Date Expiration Date V isits Requested Visits Authorized [id number] Authorized 01/07/2022 01/06/2025 300 300 Encounter Details Date Type Department Care Team (Latest Contact Info) Description 09/21/2023 1:30 PM CDT Anticoagulation Visit Department of Anticoagulation in [place], [place] [address] [place] [address] Soheila Zapata P.A.-C., M.S. [address] [address] 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 Glomerular Filtration Rate (GFR) 45 To 59 (HCC) (Primary Dx); Hyperlipidemia On Treatment; Atrial Fibrillation Paroxysmal (HCC); Monitoring For Therapeutic Drug Therapy; [facility] (Current) Anticoagulant Treatment Social History Tobacco Use Types Packs/Day Years Used Date Smoking Tobacco: Never Smokeless Tobacco: Never Alcohol Use Standard Drinks/Week Comments No 0 (1 standard drink = 0.6 oz pur e alcohol) [facility] Utilities Answer Date Recorded In [...] often do you attend chur ch or yarsanism services? More than 4 times per year [...] Answer Date Recorded PHQ-2 Score 0 04/27/[address]23 [facility] - Occupational Stress Questionnaire Answer Date [...] your living situation today? I have a [facility] place to live 07/01/2023 Education Answer [...] AM CDT documented as of this encounter Progress Notes * Soham Chino R.N. - 09/21/2023 1:30 PM CDT Warfarin Maintenance Nursing Protocol Goal Range 2.0-3.0 (version approved 04/2021) Visit Type: Telephone Primary reason for visit: Routine f/u OR f/u per previous visit recommendations Information provided by:patient INR result: 5.4 Goal range: 2.0-3.0 Inclusion Criteria: All inclusion [...] Protocol does not apply. Provider input required. Patient has had a change in diet, lifestyle, alcohol intake, tobacco habits, health status, hospitalization, or surgery in the last 3 days: yes. Diet change: Patient has been using CBD tea drinks. States that she has 1/3 of a can mixed with ICE beverage. Also continues to use cranberry tablets. . Proceeded to maintenance warfarin dosing and follow-up, but have patient return for follow-up INR in 7-10 days. Additional Info: Patient already took warfarin this AM. Previous INR was subtherapeutic. Today???s INR is Supratherapeutic, Causes: See above positive screening criteria/additional information sections.. Dosing and follow up recommendation: Protocol does not apply based on positive screening criteria indicated above stating consult required. Consulted Anticoagulation [facility] for plan. Currently bridging: no. INR is therapeutic/supratherapeutic. Additional dosing or follow-up information: Next INR in 3 days per consult with Anticoagulation [facility] Pt is on injectable anticoagulant: No. Plan [...] CDT Appointment Department of Laboratory Medicine in [place], [place] [address] [place] [phone] Patrick Erickson D.O. [address] [phone] 12/13/2023 12:30 PM CDT Anticoagulation Visit Department of Anticoagulation in [place], [place] [address] [place] [address] Soheila Zapata P.A.-C., M.S. [address] [place] [phone] 12/24/2023 10:10 AM CDT Appointment Department of Laboratory Medicine in [place], [place] [address] [place] [phone] Patrick Erickson D.O. [address] [place] [phone] 12/28/2023 1:00 PM CDT Office Visit Department of Internal Medicine in [place], [place] [address] [place] [phone] Patrick Erickson D.O. [address] [place] [phone] documented as of this encounter Results [...] D.O. 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 [address] [address] PCP - General Internal Medicine 08/12/22 documented as of this encounter
--- OUTSIDE RECORDS SUMMARY | 2023-12-06 08:06 | XMS_ITS | Encounter Summary ---
Author Organization [facility] Address [address] [place] [address] Care Team Providers Care Sales Support Manager Name Role Phone Patrick Erickson D.O. Primary Care Provider +1- [phone] Reason for Visit * Outpatient (Routine) - Authorized Specialty Diagnoses / Procedures Referred By Prosper t Referred To Contact Anticoagulation Soheila Zapata P.A.-C., M.S. [address] [address] [facility] Referral ID Status Reason Start Date Expiration Date V isits Requested Visits Authorized [id number] Authorized 01/07/2022 01/06/2025 300 300 Encounter Details Date Type Department Care Team (Latest Contact Info) Description 10/04/2023 3:50 PM CDT Anticoagulation Visit Department of Anticoagulation in [place], [place] [address] [place] [address] Soheila Zapata P.A.-C., M.S. [address] [address] Atrial Fibrillation Paroxysmal (HCC) (Primary Dx); 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 Or Unspecified Chronic Kidney Disease (HCC); Hyperlipidemia On Treatment; Monitoring For Therapeutic Drug Therapy; Drier (Current) Anticoagulant Treatment Social History Tobacco Use Types Packs/Day Years Used Date Smoking Tobacco: Never Smokeless Tobacco: Never Alcohol Use Standard Drinks/Week Comments No 0 (1 standard drink = 0.6 oz pur e alcohol) [facility] Utilities Answer Date Recorded In [...] often do you attend chur ch or zoroastrian services? More than 4 times per year [...] Answer Date Recorded PHQ-2 Score 0 04/27/2023 [facility] [place] of Occupat [facility] - Occupational Stress Questionnaire Answer Date [...] living situation today? I have a [facility] place to live 07/01/2023 Education Answer [...] Patient Instructions * Patient Instructions* Linnette Flores R.N. - 10/04/2023 3:50 PM CDT Your next INR will be in 3 days. You will need to call the Anticoagulation Program for warfarin dosing at the scheduled time for your nurse visit, as indicated on your Patient Appointment Guide (PAG). To reschedule your appointment or for questions about your warfarin, please call Primary Care Anticoagulation Program at [phone] from 7:30 am to 4:30 pm. Wednesday-Wednesday [...] if you start any herbal or other gouw-dwn-tyckgtm product (check with your doctor, a nurse, or pharmacist). If you change your diet significantly. If you decide to stop or start using tobacco or alcohol. If you notice unusual bruising or bleeding. If you notice dark, tarry, or bright red stools or blood in your urine. If you have a painful and swollen calf. documented in this encounter Progress Notes * Linnette Flores R.N. - 10/04/2023 3:50 PM CDT Warfarin Maintenance Nursing Protocol Goal Range 2.0-3.0 (version approved 04/2021) Visit Type: Telephone Primary reason for visit: Routine f/u OR f/u per previous visit recommendations Information provided by:patient INR result: 3.4 Goal range: 2.0-3.0 Inclusion Criteria: All inclusion [...] follow-up. Additional Info: None Previous INR was supratherapeutic. Today???s INR is Supratherapeutic, Causes: Unknown. Dosing and follow up recommendation: Protocol dosing range for INR 3.3-3.5: Consecutive INR above goal range. Decrease last 7 days dosing by 10% per protocol. Next INR in 8-10 days. Additional dosing or follow-up information: Protocol completed. Per nursing judgment, provider consulted. Dosing per tracker. Next INR in 3 days per consult with Anticoagulation [facility]. Pt is on injectable anticoagulant: No. Plan [...] CDT Appointment Department of Laboratory Medicine in [address] [place] [address] Patrick Erickson D.O. [address] [phone] 12/13/2023 12:30 PM CDT Anticoagulation Visit Department of Anticoagulation in [place], [place] [address] [place] [address] Soheila Zapata P.A.-C., M.S. [address] [address] 12/24/2023 10:10 AM CDT Appointment Department of Laboratory Medicine in [place], [place] [address] [place] [address] Patrick Erickson D.O. [address] [place] [address] 12/28/2023 1:00 PM CDT Office Visit Department of Internal Medicine in [place], [place] [address] [place] [address] Patrick Erickson D.O. 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 [address] [place] [address] PCP - General Internal Medicine 08/12/22 documented as of this encounter
--- OUTSIDE RECORDS SUMMARY | 2023-12-06 08:06 | XMS_ITS | Encounter Summary ---
Author Organization [facility] Address [address] [place] [address] Care Team Providers Care Horse Show Manager Name Role Phone Patrick Erickson D.O. Primary Care Provider +1- [phone] Reason for Visit * Outpatient (Routine) - Authorized Specialty Diagnoses / Procedures Referred By Prosper t Referred To Contact Anticoagulation Soheila Zapata P.A.-C., M.S. [address] [address] [facility] Referral ID Status Reason Start Date Expiration Date V isits Requested Visits Authorized [id number] Authorized 01/07/2022 01/06/2025 300 300 Encounter Details Date Type Department Care Team (Latest Contact Info) Description 10/08/2023 9:30 AM CDT Anticoagulation Visit Department of Anticoagulation in [place], [place] [address] [place] [address] Soheila Zapata P.A.-C., M.S. 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 More than 4 times per year 05/30/2022 Do you belong to any clubs o r organizations such as mosque groups, unions, fraternal or athletic groups, or [...] Answer Date Recorded PHQ-2 Score 0 04/27/2023 [facility] [facility] - Occupational Stress Questionnaire Answer Date [...] your living situation today? I have a [facility] place to live 07/01/2023 Education Answer Date [...] this encounter Patient Instructions * Patient Instructions* Margy France R.N. - 10/08/2023 9:30 AM CDT Your next INR will be 10/15/23. You will need to call the Anticoagulation Program for warfarin dosingat the scheduled time for your nurse visit, as indicated on your Patient Appointment Guide (PAG). To reschedule your appointment or for questions about your warfarin, please call Primary Care Anticoagulation Program at [phone] from 7:30 am to 4:30 pm. Wednesday-Wednesday [...] if you start any herbal or other talb-qzg-jwuvkue product (check with your doctor, a nurse, or pharmacist). If you change your diet significantly. If you decide to stop or start using tobacco or alcohol. If you notice unusual bruising or bleeding. If you notice dark, tarry, or bright red stools or blood in your urine. If you have a painful and swollen calf. documented in this encounter Progress Notes * Margy France R.N. - 10/08/2023 9:30 AM CDT Warfarin Maintenance Nursing Protocol Goal [...] Criteria: Patient has had a change in adherence (missed dose, extra dose, inaccurate dose) to prescribed warfarin dosing in last 3 days including: yes. Inaccurate warfarin doses per Warfarin Anticoagulation Tracking calendar. Proceeded to maintenance warfarin dosing and follow-up, but have patient return forfollow-up INR in 7-10 days. Additional Info: None Previous INR was supratherapeutic. Today???s INR is Supratherapeutic, Causes: Unknown. Dosing and follow up recommendation: Protocol dosing range for INR 3.3-3.5: Consecutive INR above goal range. Decrease last 7 days dosing by 10% per protocol. Next INR in 8-10 days. Additional dosing or follow-up information: None. Pt is on injectable anticoagulant: No. Plan used: Protocol. See Anticoagulation Track Calendar for dosing and plan details. Anticoagulation Visit Summary: Patient repeats back dosing instructions, date of next INR, and has no further questions at this time. Total time spent with patient: 15 minutes documented in this encounter Plan of Treatment Upcoming Encounters Date Type Department Care Team (Latest Contact Info) Description 12/13/2023 11:50 AM CDT Appointment Department of Laboratory Medicine in [place], [place] [address] [place] [phone] Patrick Erickson D.O. [address] [phone] 12/13/2023 12:30 PM CDT Anticoagulation Visit Department of Anticoagulation in [place], [place] [address] [place] [address] Soheila Zapata P.A.-C., M.S. [address] [place] [address] 12/24/2023 10:10 AM CDT Appointment Department of Laboratory Medicine in [place], [place] [address] [place] [address] Patrick Erickson D.O. [address] [place] [phone] 12/28/2023 1:00 PM CDT Office Visit Department of Internal Medicine in [place], [place] [address] [place] [address] Patrick Erickson D.O. [address] [address] documented as of this encounter Results [...] D.O. 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 [address] [place] [address] PCP - General Internal Medicine 08/12/22 documented as of this encounter
--- OUTSIDE RECORDS SUMMARY | 2023-12-06 08:07 | XMS_ITS | Encounter Summary ---
Author Organization [facility] Address [address] [place] [address] Care Team Providers Care Punching Machine Operator Name Role Phone Patrick Erickson D.O. Primary Care Provider +1- [phone] Reason for Visit * Outpatient (Routine) - Authorized Specialty Diagnoses / Procedures Referred By Prosper t Referred To Contact Anticoagulation Soheila Zapata P.A.-C., M.S. [address] [address] [facility] Referral ID Status Reason Start Date Expiration Date V isits Requested Visits Authorized [id number] Authorized 01/07/2022 01/06/2025 300 300 Encounter Details Date Type Department Care Team (Latest Contact Info) Description 09/14/2023 1:30 PM CDT Anticoagulation Visit Department of Anticoagulation in [place], [place] [address] [place] [address] Soheila Zapata P.A.-C., M.S. [address] [address] Atrial Fibrillation Paroxysmal (HCC) (Primary Dx); 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 Glomerular Filtration Rate (GFR) 45 To 59 (HCC); Hyperlipidemia On Treatment; Monitoring For Therapeutic Drug Therapy; Alf (Current) Anticoagulant Treatment Social History Tobacco Use Types Packs/Day Years Used Date Smoking Tobacco: Never Smokeless Tobacco: Never Alcohol Use Standard Drinks/Week Comments No 0 (1 standard drink = 0.6 oz pur e alcohol) [facility] Utilities Answer Date Recorded In the [...] often do you attend chur ch or advent services? More than 4 times per year 05/30/2022 Do you belong to any clubs o r organizations such as cheondoism groups, unions, fraternal or athletic groups, or [...] Answer Date Recorded PHQ-2 Score 0 04/27/2023 [facility] [place] of [facility] - Occupational Stress Questionnaire Answer [...] your living situation today? I have a [facility] place to live 07/01/2023 Education Answer [...] this encounter Patient Instructions * Patient Instructions* La Mendoza R.N. - 09/14/2023 1:30 PM CDT Your next INR will be in 1 week. You will need to call the Anticoagulation Program for warfarin dosing at the scheduled time for your nurse visit, as indicated on your Patient Appointment Guide (PAG). To reschedule your appointment or for questions about your warfarin, please call Primary Care Anticoagulation Program at [phone] from 7:30 am to 4:30 pm. Wednesday-Wednesday [...] if you start any herbal or other vnfg-kjg-whsgcbb product (check with your doctor, a nurse, or pharmacist). If you change your diet significantly. If you decide to stop or start using tobacco or alcohol. If you notice unusual bruising or bleeding. If you notice dark, tarry, or bright red stools or blood in your urine. If you have a painful and swollen calf. documented in this encounter Progress Notes * La Mendoza R.N. - 09/14/2023 1:30 PM CDT Warfarin Maintenance Nursing Protocol Goal Range 2.0-3.0 (version approved 04/2021) Visit Type: Telephone Primary reason for visit: Routine f/u OR f/u per previous visit recommendations Information provided by:patient INR result: 1.6 Goal range: 2.0-3.0 Inclusion Criteria: All inclusion [...] days. Additional Info: None Previous INR was subtherapeutic. Today???s INR is Subtherapeutic, Causes: Unknown. Dosing and follow up recommendation: Protocol dosing range for INR 1.5-1.7: Consult required due to indication: yes. Today's INR is 3rd or more consecutive INR below goal range. Consulted Anticoagulation [facility] for plan. Currently bridging: No. Provider consulted for potential bridging: Edna Sevilla-Anticoagulation [facility]. Bridging ordered: no. Next INR on 09/21/23 per consult. Additional dosing or follow-up information: None. Pt [...] CDT Appointment Department of Laboratory Medicine in [place], [place] [address] [place] [address] Patrick Erickson D.O. [address] [address] 12/13/2023 12:30 PM CDT Anticoagulation Visit Department of Anticoagulation in [place], [place] [address] [place] [address] Soheila Zapata P.A.-C., M.S. [address] [address] 12/24/2023 10:10 AM CDT Appointment Department of Laboratory Medicine in [place], [place] [address] [place] [address] Patrick Erickson D.O. [address] [address] 12/28/2023 1:00 PM CDT Office Visit Department of Internal Medicine in [place], [place] [address] [address] Patrick Erickson D.O. [address] [address] documented as of this encounter Results * (ABNORMAL) INR Reflex, POCT, Blood (09/21/2023 12:39 PM CDT) INR Reflex, POCT, B 5.4(CH) 09/21/2023 12:38 PM CDT [id number] Comment: ----ADDITIONAL INFORMATION---- Standard intensity warfarin therapeutic range: 2.0 to 3.0 ?? High intensity warfarin therapeutic range: 2.5 to 3.5 Blood (Blood, Capillary) 09/21/2023 12:39 PM CDT 09/21/2023 12:38 PM CDT Patrick Erickson D.O. LAB POCT ORDERABLE S - DEVICE [facility] [address] [place] [address], [facility] FB60 [facility] in [place] [address] [place] [address] documented in this encounter Visit Diagnoses Diagnosis Atrial Fibrillation Paroxysmal (HCC)- Primary 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 Glomerular Filtration Rate (GFR) 45 To 59 (HCC) Hyperlipidemia On Treatment Monitoring For Therapeutic Drug Therapy Alf (Current) Anticoagulant Treatment documented in this encounter Additional Health Concerns Assessment Noted Time PHQ-9 Depression Total Score: 9 02/23/20 23 7:41 PM 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 [address] [place] [address] PCP - General Internal Medicine 08/12/22 documented as of this encounter
--- OUTSIDE RECORDS SUMMARY | 2023-12-06 08:07 | XMS_ITS | Encounter Summary ---
Author Organization [facility] Address [address] [place] [address] Care Team Providers Care Pig Farm Manager Name Role Phone Patrick Erickson D.O. Primary Care Provider +1- [phone] Encounter Details Date Type Department Care Team (Latest Contact Info) Description 09/21/2023 11:55 AM CDT - 09/21/2023 11:59 PM CDT Hospital Encounter Department of Laboratory Medicine in [place] [address] [place] [address] Patrick Erickson D.O. [address] [place] [address] 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 Glomerular Filtration Rate (GFR) 45 To 59 (HCC); Hyperlipidemia On Treatment; Atrial Fibrillation Paroxysmal (HCC); Monitoring For Therapeutic Drug Therapy; Chcf (Current) Anticoagulant Treatment Discharge Disposition: Home or Self Care Social History Tobacco Use Types Packs/Day Years Used Date Smoking Tobacco: Never Smokeless Tobacco: Never Alcohol Use Standard Drinks/Week Comments No 0 (1 standard drink = 0.6 oz pur e alcohol) [facility] Utilities Answer Date Recorded In the past 12 months has th e electric, gas, oil, or water [employer] threatened to shut off services in your [...] often do you attend chur ch or pentecostalism services? More than 4 times per year 05/30/2022 Do you belong to any clubs o r organizations such as scientology groups, unions, fraternal or athletic groups, or [...] Answer Date Recorded PHQ-2 Score 0 04/27/[address] [facility] [place] of Occupat ional Health - Occupational Stress [...] your living situation today? I have a [facility] place to live 07/01/2023 Education Answer [...] tablet every day 90 tablet 3 04/21/2023 bcogqak-lnxy-baqff-or eg-capryl 100 mg-150 mg- 50 mg-150 mg capsule Take by mouth 3 (three) times a day. warfarin (JANTOVEN) 5 mg tabletIndications:Hyp ertensive 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 Glomerular Filtration Rate (GFR) 45 To 59 (HCC),Hyperlipidemia On Treatment,Atrial Fibrillation Paroxysmal (HCC),Monitoring For Therapeutic Drug Therapy,Chcf (Current) Anticoagulant Treatment Please take as directed by your Anticoagulation Clinic. 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 120 tablet 3 08/24/2023 documented as of this encounter Plan of Treatment Upcoming Encounters Date Type Department Care Team (Latest Contact Info) Description 12/13/2023 11:50 AM CDT Appointment Department of Laboratory Medicine in [place] [address] [address] [facility] [place] [phone] Patrick Erickson D.O. [address] [address] 12/13/2023 12:30 PM CDT Anticoagulation Visit Department of Anticoagulation in [place], [place] [address] [place] [address] Soheila Zapata P.A.-C., M.S. [address] [address] 12/24/2023 10:10 AM CDT Appointment Department of Laboratory Medicine in [place], [place] [address] [place] [address] Patrick Erickson D.O. [address] [address] 12/28/2023 1:00 PM CDT Office Visit Department of Internal Medicine in [place], [place] [address] [address] Patrick Erickson D.O. [address] [address] documented as of this encounter Procedures Procedure Name Priority Date/Time Associated Diagnosis Comments PROTHROMBIN TIME (PT), P Routine 09/21/2023 12:41 PM CDT INR REFLEX, POCT, B Routine 09/21/2023 1 2:39 PM CDT 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 Glomerular Filtration Rate (GFR) 45 To 59 (HCC) Hyperlipidemia On Treatment Atrial Fibrillation Paroxysmal (HCC) Monitoring For Therapeutic Drug Therapy Chcf (Current) Anticoagulant Treatment documented in this encounter Results * (ABNORMAL) Prothrombin Time (PT) (09/21/2023 12:41 PM CDT) Prothrombin Time, P 59.8(H) 9.4 - 12.5 sec 09/21/2023 6:52 PM CDT OWAT INR 5.0(CH) 0.9 - 1.1 09/21/2023 6:52 PM CDT OWAT Comment: ----ADDITIONAL INFORMATION---- Standard intensity warfarin therapeutic range: 2.0 to 3.0 ?? High intensity warfarin therapeutic range: 2.5 to 3.5 Blood 09/21/2023 12:4 1 PM CDT 09/21/2023 5:54 PM CDT Patrick Erickson D.O. LAB BLOOD ADD-ON Performing Organization Address [facility] Co de Phone Number [facility] [address] [place] [id number], [facility] OWAT [facility] in [place] [address] [place] [id number] * (ABNORMAL) INR Reflex, POCT, Blood (09/21/2023 12:39 PM CDT) INR Reflex, POCT, B 5.4(CH) 09/21/2023 12:38 PM CDT [id number] Comment: ----ADDITIONAL INFORMATION---- Standard intensity warfarin therapeutic range: 2.0 to 3.0 ?? High intensity warfarin therapeutic range: 2.5 to 3.5 Blood (Blood, Capillary) 09/21/2023 12:39 PM CDT 09/21/2023 12:38 PM CDT Patrick Erickson D.O. LAB POCT ORDERABLE S - DEVICE Performing Organization Address City/[facility]/ZIP Co de Phone Number 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 [address] [place] [address] PCP - General Internal Medicine 08/12/22 documented as of this encounter
--- OUTSIDE RECORDS SUMMARY | 2023-12-06 08:07 | XMS_ITS | Encounter Summary ---
Author Organization [facility] Address [address] [place] [address] Care Team Providers Care Emts Name Role Phone Patrick Erickson D.O. Primary Care Provider [phone]- [phone] Encounter Details Date Type Department Care Team (Latest Contact Info) Description 09/02/2023 3:01 PM CDT - 09/02/2023 11:59 PM CDT Hospital Encounter Department of Laboratory Medicine in [place] [address] [place] [phone] Patrick Erickson D.O. 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 Glomerular Filtration Rate (GFR) 45 To 59 (HCC); Hyperlipidemia On Treatment; Atrial Fibrillation Paroxysmal (HCC); Monitoring For Therapeutic Drug Therapy; Inlayer (Current) Anticoagulant Treatment Discharge Disposition: Home or Self Care Social History Tobacco Use Types Packs/Day Years Used Date Smoking Tobacco: Never Smokeless Tobacco: Never Alcohol Use Standard Drinks/Week Comments No 0 (1 standard drink = 0.6 oz pur e alcohol) [facility] Utilities Answer Date Recorded In the past 12 months has th e electric, gas, oil, or water [employer] threatened to shut off services in your [...] any clubs o r organizations such as gnosticist groups, unions, fraternal or athletic groups, or [...] Answer Date Recorded PHQ-2 Score 0 04/27/2023 [facility] [place] of Occupat ional Health - Occupational Stress [...] tablet every day 90 tablet 3 04/21/2023 avijhnx-riqn-orbtc-or eg-capryl 100 mg-150 mg- 50 mg-150 mg capsule Take by mouth 3 (three) times a day. warfarin (JANTOVEN) 5 mg tabletIndications:Hyp ertensive 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 Glomerular Filtration Rate (GFR) 45 To 59 (HCC),Hyperlipidemia On Treatment,Atrial Fibrillation Paroxysmal (HCC),Monitoring For Therapeutic Drug Therapy,Mcfp (Current) Anticoagulant Treatment Please take as directed by your Anticoagulation Clinic. 15 tablet 08/24/2023 warfarin (JANTOVEN) 5 mg tabletIndications:Hyp ertensive 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 Glomerular Filtration Rate (GFR) 45 To 59 (HCC),Hyperlipidemia On Treatment,Atrial Fibrillation Paroxysmal (HCC),Monitoring For Therapeutic Drug Therapy,Inlayer (Current) Anticoagulant Treatment Please take as directed by your Anticoagulation Clinic. 120 tablet 3 08/24/2023 documented as of this encounter Plan of Treatment Upcoming Encounters Date Type Department Care Team (Latest Contact Info) Description 12/13/2023 11:50 AM CDT Appointment Department of Laboratory Medicine in [place] [address] [facility] [place] [phone] Patrick Erickson D.O. [address] [address] 12/13/2023 12:30 PM CDT Anticoagulation Visit Department of Anticoagulation in [place], [place] [address] [place] [address] Soheila Zapata P.A.-C., M.S. [address] [phone] 12/24/2023 10:10 AM CDT Appointment Department of Laboratory Medicine in [place], [place] [address] [place] [address] Patrick Erickson D.O. [address] [phone] 12/28/2023 1:00 PM CDT Office Visit Department of Internal Medicine in [place], [place] [address] [address] Patrick Erickson D.O. [address] [phone] documented as of this encounter Procedures Procedure Name Priority Date/Time Associated Diagnosis Comments INR REFLEX, POCT, B Routine 09/02/2023 3:09 PM CDT 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 Glomerular Filtration Rate (GFR) 45 To 59 (HCC) Hyperlipidemia On Treatment Atrial Fibrillation Paroxysmal (HCC) Monitoring For Therapeutic Drug Therapy Mcfp (Current) Anticoagulant Treatment documented in this encounter Results * INR Reflex, POCT, Blood (09/02/2023 3:09 PM CDT) INR Reflex, POCT, B 1.3 09/02/2023 3:07 PM CDT [id number] Comment: ----ADDITIONAL INFORMATION---- Standard intensity warfarin therapeutic range: 2.0 to 3.0 ?? High intensity warfarin therapeutic range: 2.5 to 3.5 Blood (Blood, Capillary) 09/02/2023 3:09 PM CDT 09/02/2023 3:07 PM CDT Patrick Erickson D.O. LAB POCT ORDERABLE S - DEVICE [facility] [address] [place] [address], [facility] FB60 [facility] [place] [address] [place] [address] documented in this encounter Visit Diagnoses Diagnosis 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 Glomerular Filtration Rate (GFR) 45 To 59 (HCC) Hyperlipidemia On Treatment Atrial Fibrillation Paroxysmal (HCC) Monitoring For Therapeutic Drug Therapy Inlayer (Current) Anticoagulant Treatment documented in this encounter Additional Health Concerns Assessment Noted Time PHQ-9 Depression Total Score: 9 02/23/20 23 7:41 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 [address], [place] [address] PCP - General Internal Medicine 08/12/22 documented as of this encounter
--- OUTSIDE RECORDS SUMMARY | 2023-12-06 08:07 | XMS_ITS | Clinical Summary ---
Author Organization [facility] Address [place], [place] [address] Care Team Providers Care Tugboat Engineer Name Role Phone None Primary Care Provider Harvinder Peterson MD Unavailable [phone] Allergies Active Allergy Reactions Criticality Noted Date Comments Codeine Hives 12/05/2007 Darling Dyspnea 12/09/2021 [place] Medications Medication Sig Dispensed Refills Start Date End Date Status IMITREX 50 MG TAB take 1 tablet by oral route x 1 dose with fluids, the dose may be repeated after 2 hours times 1 15 1 12/05/2007 Active FLEXERIL 10 MG TAB take 1 tablet (10 mg) by oral route 2 times per day as needed 40 0 12/05/2007 Active atorvastatin (LIPITOR) 10 mg tablet Take 1 Tablet (10 mg) by mouth at bedtime. 0 08/18/2022 Active carvediloL (COREG) 12.5 mg tablet Take 0.5 Tablets (6.25 mg) by mouth two times daily with meals. 0 08/18/2022 Active cholecalciferol (Vitamin D) 1,000 unit capsule Take 1 Capsule (1,000 units) by mouth once daily. 0 08/18/2022 Active cyanocobalamin (Vitamin B-12) 1,000 mcg tablet Take 1 Tablet (1,000 mcg) by mouth once daily. 90 Tablet 3 08/18/2022 Active furosemide (LASIX) 20 mg tablet Take 1 Tablet (20 mg) by mouth once every other day. 0 08/18/2022 Active gabapentin (NEURONTIN) 300 mg capsule Take 1 Capsule (300 mg) by mouth 3 times daily if needed. 0 08/18/2022 Active ibuprofen (ADVIL; MOTRIN) 200 mg tablet Take 1-2 Tablets (200-400 mg) by mouth every 6 hours if needed. 0 08/18/2022 Active lisinopriL (PRINIVIL; ZESTRIL) 40 mg tablet Take 1 Tablet (40 mg) by mouth once daily. 90 Tablet 3 08/18/2022 Active triamcinolone 0.1% TOPICAL (KENALOG) 0.1 % lotion Apply topically to affected area(s) two times daily. prn 60 mL 08/18/2022 Active warfarin (COUMADIN) 5 mg tablet Take 1 Tablet (5 mg) by mouth once daily. Take as instructed by nursing staff after INR monitoring. 0 08/18/2022 Active medication order composer Apply topically to affected area(s). CBD lotion applied topically to feet as needed 0 08/18/2022 Active Immunizations Name Administration Dates Next Due Influenza Virus, Unspecified 12/14/2014,01/21/20 07 Influenza, High-dose Quadrivalent Inactivated Pneumococcal Poly,23-Valent (Pneumovax) 02/14/20 15 Pneumococcal conj 13-Valent (Prevnar 13) 015 Tdap 08/17/2014 Social History Tobacco Use Types Packs/Day Years Used Date Smoking Tobacco: Never Smokeless Tobacco: Never Tobacco Cessation:Counseling Given: Not Answered Alcohol Use Standard Drinks/Week Comments Never 0 (1 standard drink = 0.6 oz pur e alcohol) Social Connections Answer Date Recorded Frequency of Communication with Friends and Fami ly Not on file 08/18/2022 Sex and Gender Information Value Date Recorded Sex Assigned at Not on file Gender Identity Not on file Sexual Orientation Not on file Obstetrics History Last Filed Vital Signs Vital Sign Reading Time Taken Comments Blood Pressure 136/86 08/18/2022 11:41 AM CDT Pulse 60 08/18/2022 12:12 PM CDT Temperature 36.9 ??C (98.4 ??F) 08/01/2014 5:45 PM CD T Respiratory Rate 24 08/01/2014 5:45 PM CDT Oxygen Saturation 96% 08/18/2022 11: 41 AM CDT Inhaled Oxygen Concentration - - Weight 90.7 kg (199 lb 14.4 oz) 023 11:41 AM CDT Height - - Body Mass Index - - Plan of Treatment Health Maintenance Due Date Last Done Comments Depression screening for age 12+ 1958 BMI (ht and wt on same day) for age 18+ 1964 Hepatitis C screening for ag e 18-79 1964 Zoster (shingles) series for age 50+ (1 of 2) 1996 DEXA/DXA scan for age 65+ 06/21/2011 Medicare Wellness for age 65+ 06/21/2011 RSV vaccine for adults or (1 - 1-dose 75+ series) 2021 COVID-19 vaccine series ( season) 2023 01/14/2022, 02/01/2021, 04/22/2020, Additional history exists Influenza for age 65+ 11/07/2023 12/23/2020 , 12/14/2014, 01/20/2007 Tetanus booster 08/17/2024 08/17/2014 Tdap Completed 08/17/2014 Pneumococcal series for age 65+ Completed 5, 08/17/2014 Care Teams Tugboat Engineer Relationship Specialty Start Date End Date None . PCP - General 08/01/14 Harvinder Pike MD [facility] [place] [phone] 08/01/14
--- OUTSIDE RECORDS SUMMARY | 2023-12-06 08:07 | XMS_ITS | Encounter Summary ---
Author Organization [facility] Address [address] [place] [address] Care Team Providers Care Cyber Intel Planner Name Role Phone Patrick Erickson D.O. Primary Care Provider [phone]- [phone] Encounter Details Date Type Department Care Team (Latest Contact Info) Description 08/27/2023 1:50 PM CDT - 08/27/2023 11:59 PM CDT Hospital Encounter Department of Laboratory Medicine in [place] [address] [place] [phone] Patrick Erickson D.O. 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 Utilities Answer Date Recorded In the past 12 months has th e electric, gas, oil, or water [employer] threatened to shut off services in your [...] any clubs o r organizations such as jainism groups, unions, fraternal or athletic groups, or [...] 04/27/2023 [facility] [place] of Occupat ional Health - Occupational Stress [...] your living situation today? 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 120 tablet 3 08/24/2023 documented as of this encounter Plan of Treatment Upcoming Encounters Date Type Department Care Team (Latest Contact Info) Description 12/13/2023 11:50 AM CDT Appointment Department of Laboratory Medicine in [place] [address] [address] [facility] [place] [place] [phone] Patrick Erickson D.O. [address] [address] 12/13/2023 12:30 PM CDT Anticoagulation Visit Department of Anticoagulation in [place], [place] [address] [place] [address] Soheila Zapata P.A.-C., M.S. [address] [place] [address] 12/24/2023 10:10 AM CDT Appointment Department of Laboratory Medicine in [place], [place] [address] [place] [phone] Patrick Erickson D.O. [address] [phone] 12/28/2023 1:00 PM CDT Office Visit Department of Internal Medicine in [place], [place] [address] [phone] Patrick Erickson D.O. 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 High intensity warfarin therapeutic range: 2.5 to 3.5 Blood (Blood, Capillary) 08/27/2023 2:01 PM CDT 08/27/2023 2:01 PM CDT Patrick Erickson D.O. 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 [address], [place] [address] PCP - General Internal Medicine 08/12/22 documented as of this encounter
--- OUTSIDE RECORDS SUMMARY | 2023-12-06 08:07 | XMS_ITS | Encounter Summary ---
Author Organization [facility] Address [address] [place] [address] Care Team Providers Care Felting Machine Operator Helper Name Role Phone Patrick Erickson D.O. Primary Care Provider [phone]- [phone] Encounter Details Date Type Department Care Team (Latest Contact Info) Description 09/08/2023 3:20 PM CDT - 09/08/2023 11:59 PM CDT Hospital Encounter Department of Laboratory Medicine in [place] [address] [place] [phone] Patrick Erickson D.O. 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) Anticoagulant Treatment Discharge Disposition: Home or Self Care Social History Tobacco Use Types Packs/Day Years Used Date Smoking Tobacco: Never Smokeless Tobacco: Never Alcohol Use Standard Drinks/Week Comments No 0 (1 standard drink = 0.6 oz pur e alcohol) [facility] Utilities Answer Date Recorded In the past 12 months has th e electric, gas, oil, or water [employer] threatened to shut off services in your [...] any clubs o r organizations such as jain groups, unions, fraternal or athletic groups, or [...] Answer Date Recorded PHQ-2 Score 0 04/27/2023 [facility] [place] of Occupat ional Health - Occupational Stress [...] your living situation today? I have a [facility] place to live 07/01/2023 Education Answer [...] tablet every day 90 tablet 3 04/21/2023 ajlkche-ahhu-aornk-or eg-capryl 100 mg-150 mg- 50 mg-150 mg capsule Take by mouth 3 (three) times a day. warfarin (JANTOVEN) 5 mg tabletIndications:Hyp ertensive 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 Glomerular Filtration Rate (GFR) 45 To 59 (HCC),Hyperlipidemia On Treatment,Atrial Fibrillation Paroxysmal (HCC),Monitoring For Therapeutic Drug Therapy,Custodial (Current) Anticoagulant Treatment Please take as directed by your Anticoagulation Clinic. 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 120 tablet 3 08/24/2023 documented as of this encounter Plan of Treatment Upcoming Encounters Date Type Department Care Team (Latest Contact Info) Description 12/13/2023 11:50 AM CDT Appointment Department of Laboratory Medicine in [place] [address] [address] [facility] [place] [place] [place] [phone] Patrick Erickson D.O. [address] [phone] 12/13/2023 12:30 PM CDT Anticoagulation Visit Department of Anticoagulation in [place], [place] [address] [place] [address] Soheila Zapata P.A.-C., M.S. [address] [phone] 12/24/2023 10:10 AM CDT Appointment Department of Laboratory Medicine in [place], [place] [address] [place] [phone] Patrick Erickson D.O. [address] [phone] 12/28/2023 1:00 PM CDT Office Visit Department of Internal Medicine in [place], [place] [address] [phone] Patrick Erickson D.O. 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 High intensity warfarin therapeutic range: 2.5 to 3.5 Blood (Blood, Capillary) 09/08/2023 3:39 PM CDT 09/08/2023 3:38 PM CDT Patrick Erickson D.O. LAB POCT ORDERABLE S - DEVICE [facility] [address] [place] [address], [facility] FB60 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 [address], [place] [address] PCP - General Internal Medicine 08/12/22 documented as of this encounter
--- OUTSIDE RECORDS SUMMARY | 2023-12-06 08:07 | XMS_ITS | Encounter Summary ---
Author Organization [facility] Address [address] [place] [address] Care Team Providers Care Chef Teacher Name Role Phone Patrick Erickson D.O. Primary Care Provider [phone]- [phone] Reason for Visit * Outpatient (Routine) - Authorized Specialty Diagnoses / Procedures Referred By Prosper t Referred To Contact Anticoagulation oSheila Zapata P.A.-C., M.S. [address] [address] [facility] Referral ID Status Reason Start Date Expiration Date V isits Requested Visits Authorized [id number] Authorized 01/07/2022 01/06/2025 300 300 Encounter Details Date Type Department Care Team (Latest Contact Info) Description 09/02/2023 4:00 PM CDT Anticoagulation Visit Department of Anticoagulation in [place], [place] [address] [place] [address] Soheila Zapata P.A.-C., M.S. 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 More than 4 times per year [...] Answer Date Recorded PHQ-2 Score 0 04/27/2023 [facility] [place] [facility] - Occupational Stress Questionnaire Answer Date [...] your living situation today? I have a [facility] place to live 07/01/2023 Education Answer [...] * Patient Instructions* La Mendoza R.N. - 09/02/2023 4:00 PM CDT Your next INR will be 09/06/23. You will need to call the Anticoagulation Program for warfarin dosingat the scheduled time for your nurse visit, as indicated on your Patient Appointment Guide (PAG). To reschedule your appointment or for questions about your warfarin, please call Primary Care Anticoagulation Program at [phone] from 7:30 am to 4:30 pm. Wednesday-Wednesday [...] if you start any herbal or other ahmw-dkg-ilugzcz product (check with your doctor, a nurse, [...] Progress Notes * La Mendoza R.N. - 09/02/2023 4:00 PM CDT Warfarin Maintenance Nursing Protocol Goal Range 2.0-3.0 (version approved 04/2021) Visit Type: Telephone Primary reason for visit: Routine f/u OR f/u per previous visit recommendations Information provided by:patient INR result: 1.3 Goal range: 2.0-3.0 Inclusion Criteria: All inclusion [...] follow-up. Additional Info: None Previous INR was subtherapeutic. Today???s INR is Subtherapeutic, Causes: Unknown. Dosing and follow up recommendation: Protocol dosing range for INR less than 1.5: Consulted Anticoagulation [facility] for warfarin dosing. Currently bridging: No. Provider consulted for potential bridging: Edna Sevilla-Anticoagulation [facility]. Bridging ordered: no. Next INR on 09/06/23 per consult. Additional dosing or follow-up information: [...] CDT Appointment Department of Laboratory Medicine in [place], [place] [address] [place] [phone] Patrick Erickson D.O. [address] [address] 12/13/2023 12:30 PM CDT Anticoagulation Visit Department of Anticoagulation in [place], [place] [address] [place] [address] Soheila Zapata P.A.-C., M.S. [address] [place] [address] 12/24/2023 10:10 AM CDT Appointment Department of Laboratory Medicine in [place], [place] [address] [place] [address] Patrick Erickson D.O. [address] [place] [phone] 12/28/2023 1:00 PM CDT Office Visit Department of Internal Medicine in [place], [place] [address] [place] [address] Patrick Erickson D.O. [address] [address] documented as of this encounter [...] D.O. 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 [address] [place] [address] PCP - General Internal Medicine 08/12/22 documented as of this encounter
--- OUTSIDE RECORDS SUMMARY | 2023-12-06 08:07 | XMS_ITS | Encounter Summary ---
Author Organization [facility] Address [address] [place] [address] Care Team Providers Care Fish Farm Manager Name Role Phone Patrick Erickson D.O. Primary Care Provider [phone]- [phone] Encounter Details Date Type Department Care Team (Latest Contact Info) Description 09/14/2023 12:44 PM CDT - 09/14/2023 11:59 PM CDT Hospital Encounter Department of Laboratory Medicine in [place] [address] [place] [phone] Soheila Zapata, PZac-C., M.S. 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 Utilities Answer Date Recorded In the past 12 months has e [employer], oil, or water [employer] threatened to shut off services in your [...] How often do you attend chur or sikhism services? More than 4 times per year [...] Answer Date Recorded PHQ-2 Score 0 04/27/2023 [facility] [place] of Occupat ional Health - Occupational Stress [...] your living situation today? I have a [facility] place to live 07/01/2023 Education [...] tablet every day 90 tablet 3 04/21/2023 xoxkseb-judc-kywup-or eg-capryl 100 mg-150 mg- 50 mg-150 mg capsule Take by mouth 3 (three) times a day. 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 120 tablet 3 08/24/2023 documented as of this encounter Plan of Treatment Upcoming Encounters Date Type Department Care Team (Latest Contact Info) Description 12/13/2023 11:50 AM CDT Appointment Department of Laboratory Medicine in [place] [address] [place] [address] Patrick Erickson D.O. [address] [address] 12/13/2023 12:30 PM CDT Anticoagulation Visit Department of Anticoagulation in [place], [place] [address] [place] [address] Soheila Zapata P.A.-C., M.S. [address] [place] [address] 12/24/2023 10:10 AM CDT Appointment Department of Laboratory Medicine in [place], [place] [address] [place] [phone] Patrick Erickson D.O. [address] [place] [address] 12/28/2023 1:00 PM CDT Office Visit Department of Internal Medicine in [place], [place] [address] [place] [address] Patrick Erickson D.O. 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 High intensity warfarin therapeutic range: 2.5 to 3.5 Blood (Blood, Capillary) 09/14/2023 1:00 PM CDT 09/14/2023 12:59 PM CDT Soheila Zapata P.A.-C. 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 [address] [phone] PCP - General Internal Medicine 08/12/22 documented as of this encounter
--- OUTSIDE RECORDS SUMMARY | 2023-12-06 08:07 | XMS_ITS | Encounter Summary ---
Author Organization [facility] Address [address] [place] [address] Care Team Providers Care Bulkhead Carpenter Name Role Phone Patrick Erickson D.O. Primary Care Provider +1- [phone] Reason for Visit * Outpatient (Routine) - Authorized Specialty Diagnoses / Procedures Referred By Prosper t Referred To Contact Anticoagulation Soheila Zapaat P.A.-C., M.S. [address] [address] [facility] Referral ID Status Reason Start Date Expiration Date V isits Requested Visits Authorized [id number] Authorized 01/07/2022 01/06/2025 300 300 Encounter Details Date Type Department Care Team (Latest Contact Info) Description 09/08/2023 4:00 PM CDT Anticoagulation Visit Department of Anticoagulation in [place], [place] [address] [place] [address] Soheila Zapata P.A.-C., M.S. 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 More than 4 times per year [...] PHQ-2 Score 0 04/27/2023 [facility] [place] [facility] - Occupational Stress Questionnaire Answer Date Recorded [...] your living situation today? I have a [facility] place to live 07/01/2023 Education Answer [...] this encounter Patient Instructions * Patient Instructions* Soham Chino R.N. - 09/08/2023 4:00 PM CDT Your next INR will be 7-8-24. You will need to call the Anticoagulation Program for warfarin dosingat the scheduled time for your nurse visit, as indicated on your Patient Appointment Guide (PAG). To reschedule your appointment or for questions about your warfarin, please call Primary Care Anticoagulation Program at [phone] from 7:30 am to 4:30 pm. Wednesday-Wednesday [...] if you start any herbal or other oljc-yxe-pjrmecg product (check with your doctor, a nurse, or pharmacist). If you change your diet significantly. If you decide to stop or start using tobacco or alcohol. If you notice unusual bruising or bleeding. If you notice dark, tarry, or bright red stools or blood in your urine. If you have a painful and swollen calf. documented in this encounter Progress Notes * Soham Chino R.N. - 09/08/2023 4:00 PM CDT Warfarin Maintenance Nursing Protocol [...] patient return forfollow-up INR in 7-10 days. Patient has had a change in diet, lifestyle, alcohol intake, tobacco habits, health status, hospitalization, or surgery in the last 3 days: yes. Health status change: Vomiting for the last two days, better today. Proceeded to maintenance warfarin dosing and follow-up, but have patient return for follow-up INR in 7-10 days. Patient has had vomiting and/or diarrhea that lasted longer than 24 hours in the last 3 days: yes. Details: vomiting since Wednesday. Very little food intake and unsure if her pills stayed down. Feelinga little better today, and was able to eat a little bit. Proceed to maintenance warfarin dosing andfollow-up, but have patient return for follow-up INR in 7-10 days. Additional Info: None Previous INR was subtherapeutic. Today???s INR is Subtherapeutic, Causes: See above positive screening criteria/additional information sections.. Dosing and follow up recommendation: Protocol dosing range for INR 1.5-1.7: Consult required due to indication: yes. Today's INR is 3rd or more consecutive INR below goal range. Consulted Anticoagulation RP for plan. Currently bridging: No. Provider consulted for potential bridging: Edna-Anticoagulation [facility]. Bridging ordered: no. Next INR on 09-13-23 per consult. Additional dosing or follow-up information: [...] CDT Appointment Department of Laboratory Medicine in [place], [place] [address] [place] [address] Patrick Erickson D.O. [address], [place] [phone] 12/13/2023 12:30 PM CDT Anticoagulation Visit Department of Anticoagulation in [place], [place] [address] [place] [address] Soheila Zapata P.A.-Ashish., M.S. [address], [place] [phone] 12/24/2023 10:10 AM CDT Appointment Department of Laboratory Medicine in [place], [place] [address] [place] [phone] Patrick Erickson D.O. [address], [place] [phone] 12/28/2023 1:00 PM CDT Office Visit Department of Internal Medicine in [place], [place] [address], [place] [address] Patrick Erickson D.O. [address], [place] [address] documented as of this encounter Results * INR Reflex, POCT, Blood (09/14/2023 1:00 PM CDT) INR Reflex, POCT, B 1.6 09/14/2023 12:59 PM CDT [id number] Comment: ----ADDITIONAL INFORMATION---- Standard intensity warfarin therapeutic range: 2.0 to 3.0 ?? High intensity warfarin therapeutic range: 2.5 to 3.5 Blood (Blood, Capillary) 09/14/2023 1:00 PM CDT 09/14/2023 12:59 PM CDT Soheila Zapata P.A.-C. MHowieSHowie LAB POCT ORDERABLES - DEVICE 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 [address], [place] [phone] PCP - General Internal Medicine 08/12/22 documented as of this encounter
--- OUTSIDE RECORDS SUMMARY | 2023-12-06 08:07 | XMS_ITS | Encounter Summary ---
Author Organization [facility] Address [address] [place] [address] Care Team Providers Care Operations Officer Afloat Name Role Phone Patrick Erickson D.O. Primary Care Provider [phone] Reason for Visit * Reason Onset Date Comments Anticoagulation 08/13/2023 Lack of Engageme nt Encounter Details Date Type Department Care Team (Latest Contact Info) Description 08/13/2023 Clinical Communication Department of Anticoagulation in [place], [place] [address] [place] [address] Mariam Garland Anticoagulation (Lack of Engagement) Social History Tobacco Use Types Packs/Day Years Used Date Smoking Tobacco: Never Smokeless Tobacco: Never Alcohol Use Standard Drinks/Week Comments No 0 (1 standard drink = 0.6 oz pur e alcohol) [facility] Utilities Answer Date Recorded In the past 12 months has [facility] [employer], gas, oil, or water [employer] threatened to shut off services in your [...] often do you attend chur ch or orthodoxy services? More than 4 times per year 05/30/2022 Do you belong to any clubs o r organizations such as baptism groups, unions, fraternal or athletic groups, or [...] Answer Date Recorded PHQ-2 Score 0 04/27/2023 [facility] - [...] your living situation today? I have a [facility] place to live 07/01/2023 Education Answer [...] as of this encounter Progress Notes * Kallie Gutierrez, Pharm.D., BCACP, R.Ph. - 08/13/2023 1:42 PM CDT Pharmacy consult for non compliance, barriers to care and DOAC review If finances are an issue, a venous draw is the most cost effective for INR checks If transportation is an issue, social work consult or evaluating for home INR may be beneficial If medical burnout is an issue then consider INR check extensions as allowed by protocol or per provider The time in therapeutic warfarin range is 51%. See below for DOAC assessment. Direct Oral Anticoagulant (DOAC) Screening: Subjective/Objective: Herminia is a 78 y.o. female who is reviewed via chart review to evaluate potential switch from warfarin to direct acting oral anticoagulation (DOAC) therapy. The review has been requested by anticoagulation clinic staff. Patient's primary care provider is Patrick Erickson D.O.. Assessment: Indication for anticoagulation: Atrial fibrillation Weight/BMI/Height: BMI Readings from Last 3 Encounters: 06/22/23 32.82 kg/m?? 04/27/23 32.67 kg/m?? 09/01/22 34.67 kg/m?? Wt Readings from Last 3 Encounters: 06/22/23 87.2 kg 04/27/23 86.8 kg 09/01/22 91 kg Ht Readings from Last 1 Encounters: 04/27/23 163 cm Drug interaction review with current medications listed in EHR: None significant to preclude DOAC usage. Lab results: Hematology: Lab Results Component Value Date/Time Leukocytes 4.3 07/06/2023 08:46 AM Hemoglobin 11.7 07/06/2023 08:46 AM Hematocrit 36.3 07/06/2023 08:46 AM MCV 88.5 07/06/2023 08:46 AM Platelet Count 123 (L) 07/06/2023 08:46 AM RBC Distrib Width 13.2 07/06/2023 08:46 AM Erythrocytes 4.10 07/06/2023 08:46 AM Hepatic: Lab Results Component Value Date/Time AST 16 07/09/2016 10:59 AM ALT 16 07/09/2016 10:59 AM More recent results from 08/01/2022 in [facility] Lab Results Component Value Date INR 1.4 08/05/2023 Child-Martínez Score 1 point 2 points 3 points Bilirubin, Total [x] < 2 mg/dL [] 2-3 mg/dL [] >3 mg/dL Albumin [x] >3.5 g/dL [] 2.8-3.5 g/dL [] <2.8 g/dL INR* [x] <1.7 [] 1.7-2.2 [] >2.2 Ascites [x] absent [] slight [] moderate Encephalopathy [x] None [] Grade 1 [] Grade 2 [] Child Martínez Class A (5-6 points) [] Child Martínez Class B (7-9 points) [] Child Martínez Class C (10-15 points) [] Unable to calculate, missing lab work. *INR collected while patient on warfarin therapy. Per EHR review only, no physical exam performed. Renal: Lab Results Component Value Date/Time Creatinine 0.92 07/06/2023 08:46 AM Creatinine 1.04 10/12/2022 10:09 AM Creatinine 1.23 (H) 09/17/2022 11:22 AM Estimated Creatinine Clearance: 54.9 mL/min (by C-G formula based on SCr of 0.92 mg/dL). Bariatric Surgery: No history of bariatric surgery. Heart Valve: N/A Bleeding history: No major bleeding events noted. Thrombophilia: No documented antiphospholipid syndrome. Plan: -Anticoagulation RN will discuss plan with the patient if they are able to contact them. DOAC recommendation(s) and other considerations: - Apixaban 5 mg twice daily or Rivaroxaban 20 mg once daily - DOAC baseline lab work needed: Bilirubin, Total Albumin, ALT, AST - Executive Director [employer]'s FDA-approved recommendations for transitioning from warfarin to DOAC (*PLEASE NOTE: these may differ from [employer] Expert which recommends stopping warfarin and starting DOAC when INR is less than 2): apixaban: Stop warfarin and start apixaban when INR is less than 2 and rivaroxaban: Stop warfarin and start rivaroxaban when INR is less than 3 Cost considerations: General Medicare Part D coverage as follows: Cost of a DOAC is variable for patients with Medicare Part D supplement plans for prescriptions. Copay reduction cards from the drug hyperbaric technologist cannot be used with Medicare Part D insurance. To find out the cost it is recommended the patient contact their insurance company by calling the number on the back of their prescription card. In general, mostprescription drug plans start out with a yearly deductible ($545 in 2023) for medications that needs to be met prior to the coverage starting. Once the deductible is met, there will be a monthly copay. The deductible and copay amount are variable from plan to plan. There is a chance the cost of the medication will go up later in the year due to reaching the coverage gap, aka the ???donut hole?? ($5030 in 2023). The following can assist with drug costs if the patient qualifies: Extra Help Extra Help through Medicare is a low subsidy program that is finance based to assist with Medicare part D costs. If you collect social security they are typically screening customers for this programand will send out a letter. To qualify for extra help with Medicare prescription drug plan costs [id number], your annual income must be less than $21,870 for an individual ($29,580 for a couple living together). You can apply for Extra Help online on the [employer] website or by calling them at [phone]. You also can get help apply by calling the [employer] Line at [phone],Wednesday - Wednesday between 8:00 a.m. - 4:30 p.m. [employer] Ten dollar [employer] hyperbaric technologist copay card is available for those who privately pay for coverage, have the federal employee health plan or have coverage through an employer based pharmacy program. Patients with Medicare and Medicaid are not eligible for this copay card. This can be searched for online to apply. This card is then given to your pharmacy. The card is good for two years. https://www.[employer].UserEvents/afib/ennjxqb-nva-qxyijaz Eliquis Drug assistance through the hyperbaric technologist [employer]. This is free medicine that isshipped to your house after providing an application and meeting requirements. The main two requirements are financial and prescription expenditure. The income requirements can be in the form of social security statements, tax forms, pension statements or two consecutive paystubs. The annual household income must be at or below $43,740 for a single person or $59,160 for a family of two. For Medicare: If your income is less than $21,870 for a single person or less than $29,580 for a family of two and were denied the Extra Help, you must show proof of the denial. The other requirement is to have spend 3% of your income on prescription costs. Your pharmacy can run this report and print it for you to see how much you have paid since March. This information is then faxed to the assistance program and they verify for approval. This process takes a few weeks. You can call or apply online. 03-15 [phone] or https://www.[employer].org/. This must be reapplied for at the beginning of each calendar year. The 3% drug expenditure has to be met before they will approve. Xarelto Ten dollar Xarelto hyperbaric technologist copay card (Xarelto withMe savings card) is available for those whoprivately pay for coverage or have coverage through an employer based pharmacy program. Patients with Medicare and Medicaid are not eligible for this copay card. This can be searched for online to apply. This card is then given to your pharmacy. There is no limit to this benefit for the first 90 days, and then a $200 limit for each 30-day supply thereafter. The cost could then be ~200-300/month but unknown until the claim is run. https://www.[employer]/xarelto-cost Xarelto Drug assistance through [employer]. This program is only for those with NO insurance. This is free medicine that is shipped to your house after providing an application and meeting requirements. An application is filled out and you can either submit your income via tax returns or sign the paper allowing them to do a financial verification credit report. The annual household income must be at or below $45,180 for a single person or $61,320 for a family of two. You can apply online https://[email or web address] Dublin[employer].org/apply/ or by calling Xarelto withME coverage gap support. If you fall into a coverage gap, such as commercial high deductibles or the Medicare Part D coverage gap, you could pay $85 monthly for a 30-day supply or $240 for a 90-day supply ($80 per month) for Xarelto if you qualify. You must have insurance and paying more than $85/month to qualify for this program. You can view online and/or call. This program is from June 06-Mar 07 each year and must be applied for annually. [phone] or https://www.[employer]/xarelto-cost. [place] Contact your local [facility] psychotherapist social worker/human services office to see if they have a urbano assistance program to help cover costs (especially the deductible phase). documented in this encounter Miscellaneous Notes * Telephone Encounter - Mariam Garland - 08/13/2023 11:18 AM CDT This communication is to notify you that our patient, Herminia Alberto is non-adherent. Please assess for DOAC and if there any additional ideas to help the patient be adherent. * Telephone Encounter - Mariam Garland - 08/13/2023 11:17 AM CDT At risk for Dismissal from the Primary Care Anticoagulation Program. Patient's recent lack of engagement is interfering with our ability to safely manage their warfarin. We need your immediate assistance with patient engagement as we have been unsuccessful in reachingthem. Please contact the patient to assess barriers to care and emphasize the importance of engaging with the anticoagulation program to avoid being turned back to provider management on (09/07). Thank you for your time and assistance. Primary Care Anticoagulation Program [phone] documented in this encounter Plan of Treatment Upcoming Encounters Date Type Department Care Team (Latest Contact Info) Description 12/13/2023 11:50 AM CDT Appointment Department of Laboratory Medicine in [address] [address] Patrick Erickson D.O. [address] [place] [phone] 12/13/2023 12:30 PM CDT Anticoagulation Visit Department of Anticoagulation in [place], [place] [address] [place] [address] Soheila Zapata P.A.-C., M.S. [address], [place] [phone] 12/24/2023 10:10 AM CDT Appointment Department of Laboratory Medicine in [place] [address] [facility] [place] [address] Patrick Erickson D.O. [address] [phone] 12/28/2023 1:00 PM CDT Office Visit Department of Internal Medicine in [place], [place] [address] [address] Patrick Erickson D.O. [address] [address] documented as of this encounter [...] Total Score: 9 02/23/20 23 7:41 PM HONEYCOMB DECAPPER documented as of this encounter Care Teams Operations Officer Afloat Relationship Specialty Start Date End Date Patrick Erickson D.O. [address] [address] PCP - General Internal Medicine 08/12/22 documented as of this encounter
== END 2023-12-06 08:00 | disposition home or self-care (01) ==
LOC: NFLDREF 08:01
PROVIDERS: PCP Nurse Practitioner; Visit Provider Family Medicine
DX: I10 Essential (primary) hypertension (principal)
CPT/HCPCS: 80048

== ENCOUNTER 2023-12-08 10:01 | Day surgery (SDC) | payer OTHER, SELFPAY ==
[2023-12-08] VITALS (13 sets, daily range): BP systolic 152–190; BP diastolic 74–101; PULSE 46–74; RESP 14–16; TEMP 36.1–36.9; O2SAT 94–97; BMI 32.3
--- OUTSIDE RECORDS SUMMARY | 2023-12-08 10:09 | XMS_ITS | Continuity of Care Document ---
Author Organization [facility] Address [address] [place] [address] Care Team Providers Care Energy Technician Name Role Phone Patrick Erickson D.O. Primary Care Provider [phone] Source Comments Patient records contain information from all sites at [facility]. For routine questions regarding patient records, call [phone] during business hours, M-F 8:00 AM - 5:00 PM Central Time. Record requests for emergency care only can be directed to [phone] at any time.[facility] Encounters Date Type Department Care Team Description 12/06/2023 Clinical Communication Department of Anticoagulation in [place], [place] [address] [place] [address] Isa Callahan, R.N. Anticoagulation (INR - ordered by provider ) 12/06/2023 Clinical Communication Department of Cardiovascular Diseases in [place], [place] [address] [place] [address] Roberto Dumont, BALTAZAR, C.N.P. Med Question 12/03/2023 2:50 PM CDT - 12/03/2023 11:59 PM CDT Hospital Encounter Department of Laboratory Medicine in [place], [place] [address] [place] [address] Patrick Erickson D.O. 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 Or Unspecified Chronic Kidney Disease (HCC); Hyperlipidemia On Treatment; Atrial Fibrillation Paroxysmal (HCC); Monitoring For Therapeutic Drug Therapy; Half-Way (Current) Anticoagulant Treatment Discharge Disposition: Home or Self Care 12/03/2023 3:50 PM CDT Anticoagulation Visit Department of Anticoagulation in [place], [place] [address] [place] [address] Soheila Zapata P.A.-C., M.S. Atrial Fibrillation Paroxysmal (HCC) (Primary Dx); 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 Or Unspecified Chronic Kidney Disease (HCC); Hyperlipidemia On Treatment; Monitoring For Therapeutic Drug Therapy; Half-Way (Current) Anticoagulant Treatment 12/01/2023 Clinical Communication Department of Orthopedic Surgery in [place], [place] [address] [place] [phone] Sher Bauman M.D. Arm Injury; Post Ed Visit Follow-up 11/29/2023 Clinical Communication Department of [facility], [address] in [address] [address] Butch Sanchez R.N. COVID Treatment Review 11/27/2023 Nurse Triage Department of Internal Medicine in [place], [place] [address] [address] Kari Olivarez R.N. Cough 11/22/2023 4:00 PM CDT Anticoagulation Visit Department of Anticoagulation in [place], [place] [address] [place] [phone] Soheila Zapata P.A.-C., M.S. 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 Or Unspecified Chronic Kidney Disease (HCC) (Primary Dx); Hyperlipidemia On Treatment; Atrial Fibrillation Paroxysmal (HCC); Monitoring For Therapeutic Drug Therapy; Half-Way (Current) Anticoagulant Treatment 11/22/2023 3:20 PM CDT - 11/22/2023 11:59 PM CDT Hospital Encounter Department of Laboratory Medicine in [address] [phone] Patrick Erickson D.O. 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 Or Unspecified Chronic Kidney Disease (HCC); Hyperlipidemia On Treatment; Atrial Fibrillation Paroxysmal (HCC); Monitoring For Therapeutic Drug Therapy; Half-Way (Current) Anticoagulant Treatment Discharge Disposition: Home or Self Care 11/12/2023 11:50 AM CDT - 11/12/2023 11:59 PM CDT Hospital Encounter Department of Laboratory Medicine in [address] [address] Patrick Erickson D.O. Atrial Fibrillation Paroxysmal (HCC); Monitoring For Therapeutic Drug Therapy; Director Of Cardiopulmonary Services (Current) Anticoagulant Treatment Discharge Disposition: Home or Self Care 11/12/2023 12:30 PM CDT Anticoagulation Visit Department of Anticoagulation in [address] [phone] Soheila Zapata PHowieA.-C., M.S. 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 Or Unspecified Chronic Kidney Disease (HCC) (Primary Dx); Hyperlipidemia On Treatment; Atrial Fibrillation Paroxysmal (HCC); Monitoring For Therapeutic Drug Therapy; Half-Way (Current) Anticoagulant Treatment 11/09/2023 Orders Only [facility] PCP [facility] Patrick Erickson D.O. 11/02/2023 Clinical Communication Department of Anticoagulation in [address] [address] Cullen Guillen R.N. Anticoagulation ([facility] Update-New PCP) 11/02/2023 3:30 PM CDT Anticoagulation Visit Department of Anticoagulation in [address] [address] Soheila Zapata P.A.-C., M.S. 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 Or Unspecified Chronic Kidney Disease (HCC) (Primary Dx); Hyperlipidemia On Treatment; Atrial Fibrillation Paroxysmal (HCC); Monitoring For Therapeutic Drug Therapy; Director Of Cardiopulmonary Services (Current) Anticoagulant Treatment 11/02/2023 2:50 PM CDT - 11/02/2023 11:59 PM CDT Hospital Encounter Department of Laboratory Medicine in [address] [phone] Patrick Erickson D.O. 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 Or Unspecified Chronic Kidney Disease (HCC); Hyperlipidemia On Treatment; Atrial Fibrillation Paroxysmal (HCC); Monitoring For Therapeutic Drug Therapy; Half-Way (Current) Anticoagulant Treatment Discharge Disposition: Home or Self Care 10/28/2023 3:30 PM CDT Anticoagulation Visit Department of Anticoagulation in [address] [address] Soheila Zapata, P.A.-C., M.S. 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 Or Unspecified Chronic Kidney Disease (HCC) (Primary Dx); Hyperlipidemia On Treatment; Atrial Fibrillation Paroxysmal (HCC); Monitoring For Therapeutic Drug Therapy; Half-Way (Current) Anticoagulant Treatment 10/28/2023 2:50 PM CDT - 10/28/2023 11:59 PM CDT Hospital Encounter Department of Laboratory Medicine in [address] [phone] Patrick Erickson D.O. 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 Or Unspecified Chronic Kidney Disease (HCC); Hyperlipidemia On Treatment; Atrial Fibrillation Paroxysmal (HCC); Monitoring For Therapeutic Drug Therapy; Half-Way (Current) Anticoagulant Treatment Discharge Disposition: Home or Self Care 10/19/2023 10:10 AM CDT Anticoagulation Visit Department of Anticoagulation in [address] [address] Soheila Zapata P.A.-C., M.S. 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 Or Unspecified Chronic Kidney Disease (HCC) (Primary Dx); Hyperlipidemia On Treatment; Atrial Fibrillation Paroxysmal (HCC); Monitoring For Therapeutic Drug Therapy; Director Of Cardiopulmonary Services (Current) Anticoagulant Treatment 10/15/2023 2:50 PM CDT - 10/15/2023 11:59 PM CDT Hospital Encounter Department of Laboratory Medicine in [address] [address] Patrick Erickson D.O. 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 Or Unspecified Chronic Kidney Disease (HCC); Hyperlipidemia On Treatment; Atrial Fibrillation Paroxysmal (HCC); Monitoring For Therapeutic Drug Therapy; Half-Way (Current) Anticoagulant Treatment Discharge Disposition: Home or Self Care 10/08/2023 9:30 AM CDT Anticoagulation Visit Department of Anticoagulation in [place], [place] [address] [place] [phone] Soheila Zapata P.A.-C., M.S. 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 Or Unspecified Chronic Kidney Disease (HCC) (Primary Dx); Hyperlipidemia On Treatment; Atrial Fibrillation Paroxysmal (HCC); Monitoring For Therapeutic Drug Therapy; Director Of Cardiopulmonary Services (Current) Anticoagulant Treatment 10/07/2023 2:49 PM CDT - 10/07/2023 11:59 PM CDT Hospital Encounter Department of Laboratory Medicine in [place], [place] [address] [place] [address] Patrick Erickson D.O. Atrial Fibrillation Paroxysmal (HCC) Discharge Disposition: Home or Self Care 10/04/2023 3:50 PM CDT Anticoagulation Visit Department of Anticoagulation in [place], [place] [address] [place] [phone] Soheila Zapata P.A.-C., M.S. Atrial Fibrillation Paroxysmal (HCC) (Primary Dx); 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 Or Unspecified Chronic Kidney Disease (HCC); Hyperlipidemia On Treatment; Monitoring For Therapeutic Drug Therapy; Director Of Cardiopulmonary Services (Current) Anticoagulant Treatment 10/01/2023 Clinical Communication Department of Anticoagulation in [place], [place] [address] [place] [phone] La Mendoza R.N. Anticoagulation (Out of range INR.) 10/01/2023 2:30 PM CDT - 10/01/2023 11:59 PM CDT Hospital Encounter Department of Laboratory Medicine in [place], [place] [address] [place] [phone] Patrick Erickson D.O. 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 Glomerular Filtration Rate (GFR) 45 To 59 (HCC); Hyperlipidemia On Treatment; Atrial Fibrillation Paroxysmal (HCC); Monitoring For Therapeutic Drug Therapy; Half-Way (Current) Anticoagulant Treatment Discharge Disposition: Home or Self Care 09/24/2023 3:30 PM CDT Anticoagulation Visit Department of Anticoagulation in [address] [phone] Soheila Zapata P.Genie.-C., M.S. 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 Glomerular Filtration Rate (GFR) 45 To 59 (HCC) (Primary Dx); Hyperlipidemia On Treatment; Atrial Fibrillation Paroxysmal (HCC); Monitoring For Therapeutic Drug Therapy; Director Of Cardiopulmonary Services (Current) Anticoagulant Treatment 09/24/2023 2:50 PM CDT - 09/24/2023 11:59 PM CDT Hospital Encounter Department of Laboratory Medicine in [address] [address] Patrick Ercikson D.O. 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 Glomerular Filtration Rate (GFR) 45 To 59 (HCC); Hyperlipidemia On Treatment; Atrial Fibrillation Paroxysmal (HCC); Monitoring For Therapeutic Drug Therapy; Half-Way (Current) Anticoagulant Treatment Discharge Disposition: Home or Self Care 09/21/2023 1:30 PM CDT Anticoagulation Visit Department of Anticoagulation in [address] [phone] Soheila Zapata P.A.-C., M.S. 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 Glomerular Filtration Rate (GFR) 45 To 59 (HCC) (Primary Dx); Hyperlipidemia On Treatment; Atrial Fibrillation Paroxysmal (HCC); Monitoring For Therapeutic Drug Therapy; Half-Way (Current) Anticoagulant Treatment 09/21/2023 11:55 AM CDT - 09/21/2023 11:59 PM CDT Hospital Encounter Department of Laboratory Medicine in [address] [address] Patrick Erickson D.O. 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 Glomerular Filtration Rate (GFR) 45 To 59 (HCC); Hyperlipidemia On Treatment; Atrial Fibrillation Paroxysmal (HCC); Monitoring For Therapeutic Drug Therapy; Director Of Cardiopulmonary Services (Current) Anticoagulant Treatment Discharge Disposition: Home or Self Care 09/14/2023 1:30 PM CDT Anticoagulation Visit Department of Anticoagulation in [place], [place] [address] [place] [phone] Soheila Zapata P.A.-C., M.S. Atrial Fibrillation Paroxysmal (HCC) (Primary Dx); 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 Glomerular Filtration Rate (GFR) 45 To 59 (HCC); Hyperlipidemia On Treatment; Monitoring For Therapeutic Drug Therapy; Director Of Cardiopulmonary Services (Current) Anticoagulant Treatment 09/14/2023 12:44 PM CDT - 09/14/2023 11:59 PM CDT Hospital Encounter Department of Laboratory Medicine in [address] [address] Soheila Zapata P.A.-C., M.S. 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 Glomerular Filtration Rate (GFR) 45 To 59 (HCC); Hyperlipidemia On Treatment; Atrial Fibrillation Paroxysmal (HCC); Monitoring For Therapeutic Drug Therapy; Director Of Cardiopulmonary Services (Current) Anticoagulant Treatment Discharge Disposition: Home or Self Care 09/08/2023 4:00 PM CDT Anticoagulation Visit Department of Anticoagulation in [place], [place] [address] [place] [phone] Soheila Zapata P.A.-C., M.S. 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 Glomerular Filtration Rate (GFR) 45 To 59 (HCC) (Primary Dx); Hyperlipidemia On Treatment; Atrial Fibrillation Paroxysmal (HCC); Monitoring For Therapeutic Drug Therapy; Half-Way (Current) Anticoagulant Treatment 09/08/2023 3:20 PM CDT - 09/08/2023 11:59 PM CDT Hospital Encounter Department of Laboratory Medicine in [address] [address] Patrick Erickson D.O. 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 Glomerular Filtration Rate (GFR) 45 To 59 (HCC); Hyperlipidemia On Treatment; Atrial Fibrillation Paroxysmal (HCC); Monitoring For Therapeutic Drug Therapy; Director Of Cardiopulmonary Services (Current) Anticoagulant Treatment Discharge Disposition: Home or Self Care 09/02/2023 4:00 PM CDT Anticoagulation Visit Department of Anticoagulation in [place], [place] [address] [place] [phone] Soheila Zapata P.A.-C., M.S. Atrial Fibrillation Paroxysmal (HCC) (Primary Dx); 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 Glomerular Filtration Rate (GFR) 45 To 59 (HCC); Hyperlipidemia On Treatment; Monitoring For Therapeutic Drug Therapy; Half-Way (Current) Anticoagulant Treatment 09/02/2023 3:01 PM CDT - 09/02/2023 11:59 PM CDT Hospital Encounter Department of Laboratory Medicine in [address] [phone] Patrick Erickson D.O. 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 Glomerular Filtration Rate (GFR) 45 To 59 (HCC); Hyperlipidemia On Treatment; Atrial Fibrillation Paroxysmal (HCC); Monitoring For Therapeutic Drug Therapy; Half-Way (Current) Anticoagulant Treatment Discharge Disposition: Home or Self Care 08/27/2023 2:30 PM CDT Anticoagulation Visit Department of Anticoagulation in [address] [phone] Soheila Zapata P.A.-C., M.S. 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 Glomerular Filtration Rate (GFR) 45 To 59 (HCC) (Primary Dx); Hyperlipidemia On Treatment; Atrial Fibrillation Paroxysmal (HCC); Monitoring For Therapeutic Drug Therapy; Director Of Cardiopulmonary Services (Current) Anticoagulant Treatment 08/27/2023 1:50 PM CDT - 08/27/2023 11:59 PM CDT Hospital Encounter Department of Laboratory Medicine in [address] [phone] Hellweg, Patrick J, D.O. 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 Glomerular Filtration Rate (GFR) 45 To 59 (HCC); Hyperlipidemia On Treatment; Atrial Fibrillation Paroxysmal (HCC); Monitoring For Therapeutic Drug Therapy; Half-Way (Current) Anticoagulant Treatment Discharge Disposition: Home or Self Care 08/24/2023 10:30 AM CDT Anticoagulation Visit Department of Anticoagulation in [place], [place] [address] [place] [phone] Soheila Zapata P.A.-C., M.S. 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 Glomerular Filtration Rate (GFR) 45 To 59 (HCC) (Primary Dx); Hyperlipidemia On Treatment; Atrial Fibrillation Paroxysmal (HCC); Monitoring For Therapeutic Drug Therapy; Half-Way (Current) Anticoagulant Treatment 08/24/2023 9:46 AM CDT - 08/24/2023 11:59 PM CDT Hospital Encounter Department of Laboratory Medicine in [address] [phone] Patrick Erickson D.O. 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 Glomerular Filtration Rate (GFR) 45 To 59 (HCC); Hyperlipidemia On Treatment; Atrial Fibrillation Paroxysmal (HCC); Monitoring For Therapeutic Drug Therapy; Half-Way (Current) Anticoagulant Treatment Discharge Disposition: Home or Self Care 08/17/2023 3:50 PM CDT Anticoagulation Visit Department of Anticoagulation in [place], [place] [address] [place] [phone] Soheila Zapata P.A.-C., M.S. 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 Glomerular Filtration Rate (GFR) 45 To 59 (HCC) (Primary Dx); Hyperlipidemia On Treatment; Atrial Fibrillation Paroxysmal (HCC); Monitoring For Therapeutic Drug Therapy; Half-Way (Current) Anticoagulant Treatment 08/16/2023 Clinical Communication Department of Anticoagulation in [place], [place] [address] [place] [phone] Kina Montgomery R.N. Anticoagulation (INR OOR) 08/16/2023 1:24 PM CDT - 08/16/2023 11:59 PM CDT Hospital Encounter Department of Laboratory Medicine in [place], [place] [address] [place] [address] Patrick Erickson D.O. 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 Glomerular Filtration Rate (GFR) 45 To 59 (HCC); Hyperlipidemia On Treatment; Atrial Fibrillation Paroxysmal (HCC); Monitoring For Therapeutic Drug Therapy; Half-Way (Current) Anticoagulant Treatment Discharge Disposition: Home or Self Care 08/13/2023 Clinical Communication Department of Anticoagulation in [place], [place] [address] [place] [phone] Mariam Garland Anticoagulation (Lack of Engagement) 08/06/2023 9:50 AM CDT Anticoagulation Visit Department of Anticoagulation in [place], [place] [address] [place] [phone] Soheila Zapata P.A.-C., M.S. 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 Glomerular Filtration Rate (GFR) 45 To 59 (HCC) (Primary Dx); Hyperlipidemia On Treatment; Atrial Fibrillation Paroxysmal (HCC); Monitoring For Therapeutic Drug Therapy; Half-Way (Current) Anticoagulant Treatment 08/05/2023 Clinical Communication Department of Anticoagulation in [place], [place] [address] [place] [phone] Isa Callahan, R.N. Anticoagulation (Unable to reach ) 08/05/2023 2:36 PM CDT - 08/05/2023 11:59 PM CDT Hospital Encounter Department of Laboratory Medicine in [place], [place] [address] [place] [phone] Patrick Erickson D.O. 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 Glomerular Filtration Rate (GFR) 45 To 59 (HCC); Hyperlipidemia On Treatment; Atrial Fibrillation Paroxysmal (HCC); Monitoring For Therapeutic Drug Therapy; Director Of Cardiopulmonary Services (Current) Anticoagulant Treatment Discharge Disposition: Home or Self Care 07/06/2023 8:39 AM CDT - 07/06/2023 11:59 PM CDT Hospital Encounter Department of Laboratory Medicine in [place], [place] [address] [place] [address] Patrick Erickson D.O. Atrial Fibrillation Paroxysmal (HCC); 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 Glomerular Filtration Rate (GFR) 45 To 59 (HCC); Screening Examination Diabetes Mellitus; Hyperlipidemia On Treatment Discharge Disposition: Home or Self Care 07/06/2023 9:00 AM CDT Anticoagulation Visit Department of Anticoagulation in [place], [place] [address] [place] [address] Soheila Zapata P.A.-C., M.S. 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 Glomerular Filtration Rate (GFR) 45 To 59 (HCC) (Primary Dx); Hyperlipidemia On Treatment; Atrial Fibrillation Paroxysmal (HCC); Monitoring For Therapeutic Drug Therapy; Half-Way (Current) Anticoagulant Treatment 07/06/2023 8:17 AM CDT - 07/06/2023 8:38 AM CDT Hospital Encounter Department of Laboratory Medicine in [place], [place] [address] [place] [phone] Patrick Erickson D.O. Atrial Fibrillation Paroxysmal (HCC); 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 Glomerular Filtration Rate (GFR) 45 To 59 (HCC); Hyperlipidemia On Treatment; Monitoring For Therapeutic Drug Therapy; Director Of Cardiopulmonary Services (Current) Anticoagulant Treatment Discharge Disposition: Home or Self Care 07/02/2023 Clinical Communication Department of Internal Medicine in [place], [place] [address] [address] Patrick Erickson D.O. 07/02/2023 10:15 AM CDT Nurse Only Department of Family Medicine, [facility], in [place], [place] [address] [place] [phone] Patrick Erickson D.O. McHugh, Wendy A, LHowiePAziza Nurse Visit (BP check ) 06/24/2023 8:00 AM CDT Anticoagulation Visit Department of Anticoagulation in [place], [place] [address] [place] [address] Patrick Erickson D.O. 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 Glomerular Filtration Rate (GFR) 45 To 59 (HCC) (Primary Dx); Atrial Fibrillation Paroxysmal (HCC); Hyperlipidemia On Treatment; Monitoring For Therapeutic Drug Therapy; Director Of Cardiopulmonary Services (Current) Anticoagulant Treatment 06/23/2023 Refill Department of Cardiovascular Diseases in [address] [phone] Roberto Dumont APRN, C.N.P. Med Refill 06/22/2023 Clinical Communication Department of Anticoagulation in [place], [place] [address] [place] [address] Grace Oneill R.N. Anticoagulation (Unable to Reach) 06/22/2023 9:58 AM CDT - 06/22/2023 11:59 PM CDT Hospital Encounter Department of Laboratory Medicine in [address] [address] Soheila Zapata, P.Genie.-C., M.S. 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 Glomerular Filtration Rate (GFR) 45 To 59 (HCC); Hyperlipidemia On Treatment; Atrial Fibrillation Paroxysmal (HCC); Monitoring For Therapeutic Drug Therapy; Half-Way (Current) Anticoagulant Treatment Discharge Disposition: Home or Self Care 06/22/2023 9:57 AM CDT Hospital Encounter Department of Laboratory Medicine in [address] [phone] Roberto Dumont APRN, C.N.P. Atrial Fibrillation Unspecified (HCC) Discharge Disposition: Home or Self Care 06/22/2023 1:00 PM CDT Office Visit Department of Internal Medicine in [address] [phone] Patrick Erickson D.O. Atrial Fibrillation Paroxysmal (HCC) (Primary Dx); Director Of Cardiopulmonary Services (Current) Anticoagulant Treatment; Monitoring For Therapeutic Drug Therapy; 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 Glomerular Filtration Rate (GFR) 45 To 59 (HCC); Hyperlipidemia On Treatment; Screening Examination Diabetes Mellitus 06/18/2023 Clinical Communication Department of Anticoagulation in [place], [place] [address] [place] [address] Sandra De Oliveira Anticoagulation (Unable to reach) 06/03/2023 12:50 PM CDT - 06/03/2023 11:59 PM CDT Hospital Encounter Department of Laboratory Medicine in [place], [place] [address] [place] [address] Patrick Erickson D.O. Hypertensive Heart With Heart Failure And Chronic Kidney Disease (CKD) Stage 3a Glomerular Filtration Rate (GFR) 45 To 59 (HCC); Hyperlipidemia On Treatment; Atrial Fibrillation Paroxysmal (HCC); Monitoring For Therapeutic Drug Therapy; Director Of Cardiopulmonary Services (Current) Anticoagulant Treatment Discharge Disposition: Home or Self Care 06/03/2023 1:30 PM CDT Anticoagulation Visit Department of Anticoagulation in [place], [place] [address] [place] [phone] Soheila Zapata P.A.-Ashish., M.S. Hypertensive Heart With Heart Failure And Chronic Kidney Disease (CKD) Stage 3a Glomerular Filtration Rate (GFR) 45 To 59 (HCC) (Primary Dx); Hyperlipidemia On Treatment; Atrial Fibrillation Paroxysmal (HCC); Monitoring For Therapeutic Drug Therapy; Half-Way (Current) Anticoagulant Treatment 05/27/2023 11:10 AM CDT Anticoagulation Visit Department of Anticoagulation in [place], [place] [address] [place] [phone] Soheila Zapata P.A.-Ashish., M.S. Hypertensive Heart With Heart Failure And Chronic Kidney Disease (CKD) Stage 3a Glomerular Filtration Rate (GFR) 45 To 59 (HCC) (Primary Dx); Hyperlipidemia On Treatment; Atrial Fibrillation Paroxysmal (HCC); Monitoring For Therapeutic Drug Therapy; Half-Way (Current) Anticoagulant Treatment 05/27/2023 10:20 AM CDT - 05/27/2023 11:59 PM CDT Hospital Encounter Department of Laboratory Medicine in [place], [place] [address] [place] [address] Patrick Erickson D.O. Hypertensive Heart With Heart Failure And Chronic Kidney Disease (CKD) Stage 3a Glomerular Filtration Rate (GFR) 45 To 59 (HCC); Hyperlipidemia On Treatment; Atrial Fibrillation Paroxysmal (HCC); Monitoring For Therapeutic Drug Therapy; Director Of Cardiopulmonary Services (Current) Anticoagulant Treatment Discharge Disposition: Home or Self Care 05/21/2023 2:40 PM CDT - 05/21/2023 11:59 PM CDT Hospital Encounter Department of Laboratory Medicine in [address] [address] Patrick Erickson D.O. Atrial Fibrillation Paroxysmal (HCC) Discharge Disposition: Home or Self Care 05/21/2023 3:20 PM CDT Anticoagulation Visit Department of Anticoagulation in [address] [address] Soheila Zapata P.A.-Ashish., M.S. 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 05/07/2023 12:25 PM DRYING MACHINE RECEIVER - 05/07/2023 11:59 PM DRYING MACHINE RECEIVER Hospital Encounter Department of Laboratory Medicine in [address] [address] Patrick Erickson D.O. Hypertensive Heart With Heart Failure And Chronic Kidney Disease (CKD) Stage 3a Glomerular Filtration Rate (GFR) 45 To 59 (HCC); Hyperlipidemia On Treatment; Atrial Fibrillation Paroxysmal (HCC); Monitoring For Therapeutic Drug Therapy; Half-Way (Current) Anticoagulant Treatment Discharge Disposition: Home or Self Care 05/07/2023 1:50 PM DRYING MACHINE RECEIVER Anticoagulation Visit Department of Anticoagulation in [place], [place] [address] [place] [phone] Soheila Zapata P.A.-Ashish., M.S. Atrial Fibrillation Paroxysmal (HCC) (Primary Dx); Hypertensive Heart With Heart Failure And Chronic Kidney Disease (CKD) Stage 3a Glomerular Filtration Rate (GFR) 45 To 59 (HCC); Hyperlipidemia On Treatment; Monitoring For Therapeutic Drug Therapy; Half-Way (Current) Anticoagulant Treatment 04/30/2023 1:30 PM DRYING MACHINE RECEIVER Anticoagulation Visit Department of Anticoagulation in [place], [place] [address] [place] [address] Soheila Zapata P.A.-C., M.S. Hypertensive Heart With Heart Failure And Chronic Kidney Disease (CKD) Stage 3a Glomerular Filtration Rate (GFR) 45 To 59 (HCC) (Primary Dx); Hyperlipidemia On Treatment; Atrial Fibrillation Paroxysmal (HCC); Monitoring For Therapeutic Drug Therapy; Director Of Cardiopulmonary Services (Current) Anticoagulant Treatment 04/30/2023 12:24 PM DRYING MACHINE RECEIVER - 04/30/2023 11:59 PM DRYING MACHINE RECEIVER Hospital Encounter Department of Laboratory Medicine in [address] [address] Patrick Erickson D.O. Hypertensive Heart With Heart Failure And Chronic Kidney Disease (CKD) Stage 3a Glomerular Filtration Rate (GFR) 45 To 59 (HCC); Hyperlipidemia On Treatment; Atrial Fibrillation Paroxysmal (HCC); Monitoring For Therapeutic Drug Therapy; Director Of Cardiopulmonary Services (Current) Anticoagulant Treatment Discharge Disposition: Home or Self Care 04/28/2023 Refill Department of Internal Medicine in [address] [address] Soheila Zapata P.A.-C., M.S. Med Refill 04/28/2023 Refill Department of Internal Medicine in [address] [address] Anna Iniguez APRN, C.N.P., D.N.P. Med Refill 04/27/2023 11:20 AM DRYING MACHINE RECEIVER Office Visit Department of Internal Medicine in [address] [address] Anna Iniguez APRN, C.N.P., D.N.P. Dermatitis Perioral (Primary Dx); Hypertensive Heart With Heart Failure And Chronic Kidney Disease (CKD) Stage 3a Glomerular Filtration Rate (GFR) 45 To 59 (HCC); Atrial Fibrillation Paroxysmal (HCC); Allergy Unspecified Initial 04/18/2023 Refill Department of Internal Medicine in [place], [place] [address] [place] [address] Anna Iniguez APRN CHowieNTheo., D.N.P. Med Refill 04/02/2023 2:38 PM DRYING MACHINE RECEIVER - 04/02/2023 11:59 PM DRYING MACHINE RECEIVER Hospital Encounter Department of Laboratory Medicine in [address] [address] Patrick Erickson D.O. Hypertensive Heart With Heart Failure And Chronic Kidney Disease (CKD) Stage 3a Glomerular Filtration Rate (GFR) 45 To 59 (HCC); Hyperlipidemia On Treatment; Atrial Fibrillation Paroxysmal (HCC); Monitoring For Therapeutic Drug Therapy; Director Of Cardiopulmonary Services (Current) Anticoagulant Treatment Discharge Disposition: Home or Self Care 04/02/2023 3:30 PM DRYING MACHINE RECEIVER Anticoagulation Visit Department of Anticoagulation in [place], [place] [address] [place] [phone] Soheila Zapata, P.A.-C., M.S. Hypertensive Heart With Heart Failure And Chronic Kidney Disease (CKD) Stage 3a Glomerular Filtration Rate (GFR) 45 To 59 (HCC) (Primary Dx); Hyperlipidemia On Treatment; Atrial Fibrillation Paroxysmal (HCC); Monitoring For Therapeutic Drug Therapy; Half-Way (Current) Anticoagulant Treatment 03/19/2023 4:10 PM DRYING MACHINE RECEIVER Anticoagulation Visit Department of Anticoagulation in [place], [place] [address] [place] [phone] Soheila Zapata P.A.-C., M.S. Hypertensive Heart With Heart Failure And Chronic Kidney Disease (CKD) Stage 3a Glomerular Filtration Rate (GFR) 45 To 59 (HCC) (Primary Dx); Hyperlipidemia On Treatment; Atrial Fibrillation Paroxysmal (HCC); Monitoring For Therapeutic Drug Therapy; Director Of Cardiopulmonary Services (Current) Anticoagulant Treatment 03/19/2023 3:12 PM DRYING MACHINE RECEIVER - 03/19/2023 11:59 PM DRYING MACHINE RECEIVER Hospital Encounter Department of Laboratory Medicine in [address] [phone] Patrick Erickson D.O. Hypertensive Heart With Heart Failure And Chronic Kidney Disease (CKD) Stage 3a Glomerular Filtration Rate (GFR) 45 To 59 (HCC); Monitoring For Therapeutic Drug Therapy; Atrial Fibrillation Paroxysmal (HCC) Discharge Disposition: Home or Self Care 03/19/2023 Orders Only Department of Anticoagulation in [place], [place] [address] [place] [address] Soham Chino R.N. Hypertensive Heart With Heart Failure And Chronic Kidney Disease (CKD) Stage 3a Glomerular Filtration Rate (GFR) 45 To 59 (HCC) (Primary Dx); Monitoring For Therapeutic Drug Therapy; Atrial Fibrillation Paroxysmal (HCC) 03/19/2023 Nurse Triage Department of Internal Medicine in [place], [place] [address] [address] Rosa Isela Pelayo R.N. Urinary Symptom 03/12/2023 2:50 PM DRYING MACHINE RECEIVER - 03/12/2023 11:59 PM DRYING MACHINE RECEIVER Hospital Encounter Department of Laboratory Medicine in [address] [address] Patrick Erickson D.O. Atrial Fibrillation Paroxysmal (HCC); Monitoring For Therapeutic Drug Therapy; Half-Way (Current) Anticoagulant Treatment Discharge Disposition: Home or Self Care 03/12/2023 4:20 PM DRYING MACHINE RECEIVER Anticoagulation Visit Department of Anticoagulation in [place], [place] [address] [place] [address] Soheila Zapata, Rafi.-C., M.S. Hypertensive Heart With Heart Failure And Chronic Kidney Disease (CKD) Stage 3a Glomerular Filtration Rate (GFR) 45 To 59 (HCC) (Primary Dx); Hyperlipidemia On Treatment; Atrial Fibrillation Paroxysmal (HCC); Monitoring For Therapeutic Drug Therapy; Director Of Cardiopulmonary Services (Current) Anticoagulant Treatment 03/09/2023 1:50 PM DRYING MACHINE RECEIVER - 03/09/2023 11:59 PM DRYING MACHINE RECEIVER Hospital Encounter Department of Laboratory Medicine in [address] [address] Patrick Erickson D.O. Atrial Fibrillation Paroxysmal (HCC); Monitoring For Therapeutic Drug Therapy; Director Of Cardiopulmonary Services (Current) Anticoagulant Treatment Discharge Disposition: Home or Self Care 03/09/2023 2:30 PM DRYING MACHINE RECEIVER Anticoagulation Visit Department of Anticoagulation in [place], [place] [address] [place] [phone] Soheila Zapata P.A.-C., M.S. Hypertensive Heart With Heart Failure And Chronic Kidney Disease (CKD) Stage 3a Glomerular Filtration Rate (GFR) 45 To 59 (HCC) (Primary Dx); Hyperlipidemia On Treatment; Atrial Fibrillation Paroxysmal (HCC); Monitoring For Therapeutic Drug Therapy; Director Of Cardiopulmonary Services (Current) Anticoagulant Treatment 03/05/2023 4:07 PM DRYING MACHINE RECEIVER - 03/05/2023 11:59 PM DRYING MACHINE RECEIVER Hospital Encounter Department of Laboratory Medicine in [address] [address] Patrick Erickson D.O. Atrial Fibrillation Paroxysmal (HCC); Monitoring For Therapeutic Drug Therapy; Director Of Cardiopulmonary Services (Current) Anticoagulant Treatment Discharge Disposition: Home or Self Care 03/05/2023 4:00 PM DRYING MACHINE RECEIVER Anticoagulation Visit Department of Anticoagulation in [place], [place] [address] [place] [phone] Soheila Zapata P.A.-C., M.S. Atrial Fibrillation Paroxysmal (HCC) (Primary Dx); Monitoring For Therapeutic Drug Therapy; Half-Way (Current) Anticoagulant Treatment; Hypertensive Heart With Heart Failure And Chronic Kidney Disease (CKD) Stage 3a Glomerular Filtration Rate (GFR) 45 To 59 (HCC); Hyperlipidemia On Treatment 02/25/2023 9:00 AM DRYING MACHINE RECEIVER Anticoagulation Visit Department of Anticoagulation in [place], [place] [address] [place] [phone] Soheila Zapata P.A.-C., M.S. Atrial Fibrillation Paroxysmal (HCC) (Primary Dx); Monitoring For Therapeutic Drug Therapy; Half-Way (Current) Anticoagulant Treatment 02/24/2023 4:20 PM DRYING MACHINE RECEIVER - 02/24/2023 11:59 PM DRYING MACHINE RECEIVER Hospital Encounter Department of Laboratory Medicine in [address] [address] Soheila Zapata P.Genie.-C., M.S. Atrial Fibrillation Paroxysmal (HCC); Monitoring For Therapeutic Drug Therapy; Half-Way (Current) Anticoagulant Treatment Discharge Disposition: Home or Self Care 02/24/2023 Clinical Communication Department of [facility], [address] in [place], [place] [address] [place] [address] [place] [address] Medina Langston R.N. COVID Treatment Review; Error 02/24/2023 Nurse Triage Department of Internal Medicine in [place], [place] [address] [address] Sandra Maravilla R.N. COVID Nurse Line (/) 02/22/2023 Nurse Triage Department of Internal Medicine in [place], [place] [address] [address] Trish Smith R.N. Cough 02/16/2023 9:20 AM DRYING MACHINE RECEIVER - 02/16/2023 11:59 PM DRYING MACHINE RECEIVER Hospital Encounter Department of Laboratory Medicine in [address] [address] Patrick Erickson D.O. Atrial Fibrillation Paroxysmal (HCC); Monitoring For Therapeutic Drug Therapy; Half-Way (Current) Anticoagulant Treatment Discharge Disposition: Home or Self Care 02/16/2023 10:00 AM DRYING MACHINE RECEIVER Anticoagulation Visit Department of Anticoagulation in [place], [place] [address] [place] [address] Soheila Zapata P.A.-CHowie, M.S. Atrial Fibrillation Paroxysmal (HCC) (Primary Dx); Monitoring For Therapeutic Drug Therapy; Director Of Cardiopulmonary Services (Current) Anticoagulant Treatment 02/09/2023 Orders Only [facility] Patrick Erickson D.O. 02/02/2023 12:30 PM DRYING MACHINE RECEIVER Anticoagulation Visit Department of Anticoagulation in [place], [place] [address] [place] [phone] Soheila Zapata P.A.-C., M.S. Atrial Fibrillation Paroxysmal (HCC) (Primary Dx); Monitoring For Therapeutic Drug Therapy; Director Of Cardiopulmonary Services (Current) Anticoagulant Treatment 02/02/2023 11:50 AM DRYING MACHINE RECEIVER - 02/02/2023 11:59 PM DRYING MACHINE RECEIVER Hospital Encounter Department of Laboratory Medicine in [address] [address] Patrick Erickson D.O. Atrial Fibrillation Paroxysmal (HCC); Monitoring For Therapeutic Drug Therapy; Half-Way (Current) Anticoagulant Treatment Discharge Disposition: Home or Self Care 01/26/2023 10:00 AM DRYING MACHINE RECEIVER Anticoagulation Visit Department of Anticoagulation in [place], [place] [address] [place] [phone] Soheila Zapata P.A.-C., M.S. Atrial Fibrillation Paroxysmal (HCC) (Primary Dx); Monitoring For Therapeutic Drug Therapy; Half-Way (Current) Anticoagulant Treatment 01/26/2023 9:20 AM DRYING MACHINE RECEIVER - 01/26/2023 11:59 PM DRYING MACHINE RECEIVER Hospital Encounter Department of Laboratory Medicine in [address] [address] Patrick Erickson D.O. Atrial Fibrillation Paroxysmal (HCC); Monitoring For Therapeutic Drug Therapy; Half-Way (Current) Anticoagulant Treatment Discharge Disposition: Home or Self Care 01/14/2023 Clinical Communication Department of Spine in [address] [address] Sirisha Valentino Follow-up ([facility] is calling to complete your 1-year follow-up PROMIS-CAT questionnaires. You will receive questionnaires at different timepoints in the future. You can complete the current questionnaires in your portal and no return call is necessary. If you have any questions, please call us at: [phone]. Thank you! / ) 12/15/2022 12:00 PM CDT Anticoagulation Visit Department of Anticoagulation in [place], [place] [address] [place] [address] Soheila Zapata P.A.-Ashish., M.S. 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 Atrial Fibrillation Paroxysmal (HCC); Monitoring For Therapeutic Drug Therapy; Director Of Cardiopulmonary Services (Current) Anticoagulant Treatment Discharge Disposition: Home or Self Care 11/17/2022 3:10 PM CDT Anticoagulation Visit Department of Anticoagulation in [place], [place] [address] [place] [phone] Soheila Zapata P.A.-C., M.S. Atrial Fibrillation Paroxysmal (HCC) (Primary Dx); Monitoring For Therapeutic Drug Therapy; Director Of Cardiopulmonary Services (Current) Anticoagulant Treatment 11/17/2022 2:08 PM CDT - 11/17/2022 11:59 PM CDT Hospital Encounter Department of Laboratory Medicine in [address] [address] Soheila Zapata P.A.-C., M.S. Atrial Fibrillation Paroxysmal (HCC); Monitoring For Therapeutic Drug Therapy; Half-Way (Current) Anticoagulant Treatment Discharge Disposition: Home or Self Care 11/10/2022 12:00 PM CDT - 11/10/2022 11:59 PM CDT Hospital Encounter Department of Laboratory Medicine in [address] [address] Soheila Zapata P.A.-C., M.S. Atrial Fibrillation Paroxysmal (HCC); Monitoring For Therapeutic Drug Therapy; Half-Way (Current) Anticoagulant Treatment Discharge Disposition: Home or Self Care 11/10/2022 12:40 PM CDT Anticoagulation Visit Department of Anticoagulation in [place], [place] [address] [place] [address] Soheila Zapata P.A.-C., M.S. Atrial Fibrillation Paroxysmal (HCC) (Primary Dx); Monitoring For Therapeutic Drug Therapy; Half-Way (Current) Anticoagulant Treatment 11/04/2022 12:33 PM CDT - 11/04/2022 11:59 PM CDT Hospital Encounter Department of Laboratory Medicine in [place], [place] [address] [place] [phone] Patrick Erickson D.O. Atrial Fibrillation Paroxysmal (HCC); Monitoring For Therapeutic Drug Therapy; Half-Way (Current) Anticoagulant Treatment Discharge Disposition: Home or Self Care 11/04/2022 2:30 PM CDT Anticoagulation Visit Department of Anticoagulation in [place], [place] [address] [place] [phone] Soheila Zapata P.A.-C., M.S. Atrial Fibrillation Paroxysmal (HCC) (Primary Dx); Monitoring For Therapeutic Drug Therapy; Director Of Cardiopulmonary Services (Current) Anticoagulant Treatment 10/28/2022 8:00 AM CDT Anticoagulation Visit Department of Anticoagulation in [place], [place] [address] [place] [phone] Patrick Erickson D.O. Atrial Fibrillation Paroxysmal (HCC) (Primary Dx); Monitoring For Therapeutic Drug Therapy; Director Of Cardiopulmonary Services (Current) Anticoagulant Treatment 10/27/2022 Clinical Communication Department of Anticoagulation in [place], [place] [address] [place] [phone] Annalise Palmer R.N. Anticoagulation (Unable to reach ) 10/27/2022 11:16 AM CDT - 10/27/2022 11:59 PM CDT Hospital Encounter Department of Laboratory Medicine in [place], [place] [address] [place] [phone] Patrick Erickson D.O. Atrial Fibrillation Paroxysmal (HCC); Monitoring For Therapeutic Drug Therapy; Half-Way (Current) Anticoagulant Treatment Discharge Disposition: Home or Self Care 10/21/2022 Clinical Communication Department of Anticoagulation in [place], [place] [address] [place] [phone] Angela Shukla R.N. Anticoagulation (CCM-Enrollment) 10/12/2022 Orders Only Department of Internal Medicine in [place], [place] [address] [place] [phone] Soheila Zapata P.A.-C., M.S. 10/12/2022 9:20 AM CDT - 10/12/2022 11:59 PM CDT Hospital Encounter Department of Laboratory Medicine in [place], [place] [address] [place] [address] Patrick Erickson D.O. 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 Atrial Fibrillation Paroxysmal (HCC) (Primary Dx); Monitoring For Therapeutic Drug Therapy; Half-Way (Current) Anticoagulant Treatment 10/02/2022 Clinical Communication Department of Anticoagulation in [place], [place] [address] [place] [phone] Carmen Dorado Anticoagulation (Enrollment Update) 10/02/2022 Orders Only Department of Anticoagulation in [place], [place] [address] [place] [phone] Thalia Zepeda R.N. Atrial Fibrillation Paroxysmal (HCC) (Primary Dx); Half-Way (Current) Anticoagulant Treatment; Monitoring For Therapeutic Drug Therapy 10/02/2022 8:00 AM CDT Anticoagulation Visit Department of Anticoagulation in [place], [place] [address] [place] [phone] Patrick Erickson D.O. Atrial Fibrillation Paroxysmal (HCC) (Primary Dx); Monitoring For Therapeutic Drug Therapy; Half-Way (Current) Anticoagulant Treatment 10/01/2022 Clinical Communication Department of Anticoagulation in [place], [place] [address] [place] [phone] Hemalatha Lewis R.N. Anticoagulation 10/01/2022 8:50 AM CDT - 10/01/2022 11:59 PM CDT Hospital Encounter Department of Laboratory Medicine in [place], [place] [address] [place] [address] Patrick Erickson D.O. Atrial Fibrillation Paroxysmal (HCC); Monitoring For Therapeutic Drug Therapy; Director Of Cardiopulmonary Services (Current) Anticoagulant Treatment Discharge Disposition: Home or Self Care 09/17/2022 Orders Only Department of Internal Medicine in [place], [place] [address] [place] [address] Soheila Zapata P.A.-C., M.S. Hypertensive Heart With Heart Failure And Chronic Kidney Disease (CKD) Stage 3a Glomerular Filtration Rate (GFR) 45 To 59 (HCC) (Primary Dx) 09/17/2022 11:16 AM CDT - 09/17/2022 11:59 PM CDT Hospital Encounter Department of Laboratory Medicine in [place], [place] [address] [place] [address] Patrick Erickson D.O. Monitoring For Therapeutic Drug Therapy Discharge Disposition: Home or Self Care 09/17/2022 10:20 AM CDT - 09/17/2022 11:15 AM CDT Hospital Encounter Department of Laboratory Medicine in [place], [place] [address] [place] [address] Patrick Erickson D.O. Atrial Fibrillation Paroxysmal (HCC); Monitoring For Therapeutic Drug Therapy Discharge Disposition: Home or Self Care 09/17/2022 11:00 AM CDT Anticoagulation Visit Department of Anticoagulation in [place], [place] [address] [place] [address] Soheila Zapata P.A.-C., M.S. Atrial Fibrillation Paroxysmal (HCC) (Primary Dx); Monitoring For Therapeutic Drug Therapy; Director Of Cardiopulmonary Services (Current) Anticoagulant Treatment 09/03/2022 10:20 AM CDT - 09/03/2022 11:59 PM CDT Hospital Encounter Department of Laboratory Medicine in [place], [place] [address] [place] [address] Soheila Zapata P.A.-C., M.S. Atrial Fibrillation Unspecified (HCC); Monitoring For Therapeutic Drug Therapy; Half-Way (Current) Anticoagulant Treatment Discharge Disposition: Home or Self Care 09/03/2022 11:00 AM CDT Anticoagulation Visit Department of Anticoagulation in [place], [place] [address] [place] [address] Soheila Zapata P.A.-C., M.S. Atrial Fibrillation Paroxysmal (HCC) (Primary Dx); Monitoring For Therapeutic Drug Therapy; Director Of Cardiopulmonary Services (Current) Anticoagulant Treatment 09/01/2022 1:00 PM CDT Office Visit Department of Cardiovascular Diseases in [place], [place] [address] [place] [phone] Roberto Dumont APRN, C.N.P. Atrial Fibrillation Paroxysmal (HCC) (Primary Dx); Half-Way (Current) Anticoagulant Treatment; Bradycardia; Cardiomyopathy Dilated (HCC); Hypertensive Heart With Heart Failure And Chronic Kidney Disease (CKD) Stage 3a Glomerular Filtration Rate (GFR) 45 To 59 (HCC) 08/31/2022 11:00 AM CDT Office Visit Department of Family Medicine, [facility], in [place], [place] [address] [place] [phone] Alesha Kellogg APRN, C.N.P. Laceration Blood Vessel Left Index Finger Sequela (Primary Dx) 08/12/2022 [facility] Patrick Erickson D.O. Monitoring For Therapeutic Drug Therapy 08/10/2022 11:11 AM CDT - 08/10/2022 11:59 PM CDT Hospital Encounter Department of Laboratory Medicine in [address] [address] Soheila Zapata P.A.-C., M.S. Atrial Fibrillation Unspecified (HCC); Monitoring For Therapeutic Drug Therapy; Director Of Cardiopulmonary Services (Current) Anticoagulant Treatment Discharge Disposition: Home or Self Care 08/10/2022 12:30 PM CDT Anticoagulation Visit Department of Anticoagulation in [place], [place] [address] [place] [address] Soheila Zapata P.A.-C., M.S. Atrial Fibrillation Unspecified (HCC) (Primary Dx); Monitoring For Therapeutic Drug Therapy; Director Of Cardiopulmonary Services (Current) Anticoagulant Treatment 08/07/2022 Clinical Communication Department of Anticoagulation in [place], [place] [address] [place] [phone] Lois Vidal R.N. Anticoagulation 07/27/2022 3:20 PM CDT Anticoagulation Visit Department of Anticoagulation in [place], [place] [address] [place] [phone] Soheila Zapata P.A.-C., M.S. Atrial Fibrillation Unspecified (HCC) (Primary Dx); Monitoring For Therapeutic Drug Therapy; Director Of Cardiopulmonary Services (Current) Anticoagulant Treatment 07/27/2022 2:20 PM CDT - 07/27/2022 11:59 PM CDT Hospital Encounter Department of Laboratory Medicine in [address] [address] Soheila Zapata P.A.-C., M.S. Atrial Fibrillation Unspecified (HCC); Monitoring For Therapeutic Drug Therapy; Half-Way (Current) Anticoagulant Treatment Discharge Disposition: Home or Self Care 06/29/2022 10:12 AM CDT - 06/29/2022 11:59 PM CDT Hospital Encounter Department of Laboratory Medicine in [address] [address] Soheila Zapata P.Genie.-C., M.S. Atrial Fibrillation Unspecified; Monitoring For Therapeutic Drug Therapy; Half-Way (Current) Anticoagulant Treatment Discharge Disposition: Home or Self Care 06/29/2022 11:00 AM CDT Anticoagulation Visit Department of Anticoagulation in [place], [place] [address] [place] [phone] Soheila Zapata P.A.-C., M.S. Atrial Fibrillation Unspecified (Primary Dx); Monitoring For Therapeutic Drug Therapy; Half-Way (Current) Anticoagulant Treatment 06/19/2022 9:50 AM CDT - 06/19/2022 11:59 PM CDT Hospital Encounter Department of Laboratory Medicine in [address] [phone] Soheila Zapata P.A.-C., M.S. Atrial Fibrillation Unspecified; Monitoring For Therapeutic Drug Therapy; Half-Way (Current) Anticoagulant Treatment Discharge Disposition: Home or Self Care 06/19/2022 10:30 AM CDT Anticoagulation Visit Department of Anticoagulation in [place], [place] [address] [place] [phone] Soheila Zapata P.A.-C., M.S. Atrial Fibrillation Unspecified (Primary Dx); Monitoring For Therapeutic Drug Therapy; Half-Way (Current) Anticoagulant Treatment 06/15/2022 9:50 AM CDT - 06/15/2022 11:59 PM CDT Hospital Encounter Department of Laboratory Medicine in [place], [place] [address] [place] [address] Soheila Zapata P.A.-C., M.S. Atrial Fibrillation Unspecified; Monitoring For Therapeutic Drug Therapy; Half-Way (Current) Anticoagulant Treatment Discharge Disposition: Home or Self Care 06/15/2022 10:30 AM CDT Anticoagulation Visit Department of Anticoagulation in [place], [place] [address] [place] [phone] Soheila Zapata P.A.-C., M.S. Atrial Fibrillation Unspecified (Primary Dx); Monitoring For Therapeutic Drug Therapy; Director Of Cardiopulmonary Services (Current) Anticoagulant Treatment 06/09/2022 9:50 AM CDT - 06/09/2022 11:59 PM CDT Hospital Encounter Department of Laboratory Medicine in [place], [place] [address] [place] [address] Soheila Zapata P.A.-C., M.S. Atrial Fibrillation Unspecified; Monitoring For Therapeutic Drug Therapy; Director Of Cardiopulmonary Services (Current) Anticoagulant Treatment Discharge Disposition: Home or Self Care 06/09/2022 10:30 AM CDT Anticoagulation Visit Department of Anticoagulation in [address] [address] Soheila Zapata P.A.-C., M.S. Atrial Fibrillation Unspecified (Primary Dx); Monitoring For Therapeutic Drug Therapy; Half-Way (Current) Anticoagulant Treatment 06/03/2022 9:45 AM CDT Office Visit Department of Cardiovascular Diseases in [place], [place] [address] [place] [phone] Roberto Dumont APRN C.N.P. Atrial Fibrillation Unspecified (Primary Dx); Director Of Cardiopulmonary Services (Current) Anticoagulant Treatment; Cardiomyopathy Dilated (HCC); Hyperlipidemia On Treatment; Hypertensive Heart With Heart Failure And Chronic Kidney Disease (CKD) Stage 3a Glomerular Filtration Rate (GFR) 45 To 59 (HCC) 06/01/2022 7:12 AM CDT - 06/01/2022 11:59 PM CDT Hospital Encounter Department of Cardiovascular Diseases in [place], [place] [address] [place] [phone] Roberto Dumont APRN, C.N.P. Cardiomyopathy Dilated (HCC) Discharge Disposition: Home or Self Care 05/12/2022 Orders Only [facility] Soheila Zapata P.A.-C., M.S. Deficiency Estrogen Post Menopausal 05/12/2022 9:20 AM DRYING MACHINE RECEIVER - 05/12/2022 11:59 PM DRYING MACHINE RECEIVER Hospital Encounter Department of Laboratory Medicine in [address] [address] Soheila Zapata P.A.-C., M.S. Atrial Fibrillation Unspecified; Monitoring For Therapeutic Drug Therapy; Half-Way (Current) Anticoagulant Treatment Discharge Disposition: Home or Self Care 05/12/2022 10:00 AM DRYING MACHINE RECEIVER Anticoagulation Visit Department of Anticoagulation in [address] [address] Soheila Zapata P.A.-C., M.S. Atrial Fibrillation Unspecified (Primary Dx); Monitoring For Therapeutic Drug Therapy; Director Of Cardiopulmonary Services (Current) Anticoagulant Treatment 04/29/2022 8:00 AM DRYING MACHINE RECEIVER Anticoagulation Visit Department of Anticoagulation in [place], [place] [address] [place] [phone] Soheila Zapata P.A.-C., M.S. Atrial Fibrillation Unspecified (Primary Dx); Monitoring For Therapeutic Drug Therapy; Half-Way (Current) Anticoagulant Treatment 04/28/2022 Clinical Communication Department of Anticoagulation in [place], [place] [address] [place] [address] Hemalatha Lewis R.N. 04/28/2022 2:42 PM DRYING MACHINE RECEIVER - 04/28/2022 11:59 PM DRYING MACHINE RECEIVER Hospital Encounter Department of Laboratory Medicine in [place], [place] [address] [place] [address] Soheila Zapata P.A.-C., M.S. Atrial Fibrillation Unspecified; Monitoring For Therapeutic Drug Therapy; Half-Way (Current) Anticoagulant Treatment Discharge Disposition: Home or Self Care 04/21/2022 10:25 AM DRYING MACHINE RECEIVER - 04/21/2022 11:59 PM DRYING MACHINE RECEIVER Hospital Encounter Department of Laboratory Medicine in [place], [place] [address] [place] [address] Roberto Dumont APRN, C.N.P. Atrial Fibrillation Unspecified Discharge Disposition: Home or Self Care 04/21/2022 9:50 AM DRYING MACHINE RECEIVER - 04/21/2022 10:24 AM DRYING MACHINE RECEIVER Hospital Encounter Department of Laboratory Medicine in [place], [place] [address] [place] [phone] Soheila Zapata P.A.-C., M.S. Atrial Fibrillation Unspecified; Monitoring For Therapeutic Drug Therapy; Half-Way (Current) Anticoagulant Treatment Discharge Disposition: Home or Self Care 04/21/2022 10:30 AM DRYING MACHINE RECEIVER Anticoagulation Visit Department of Anticoagulation in [place], [place] [address] [place] [address] Soheila Zapata P.A.-C., M.S. Atrial Fibrillation Unspecified (Primary Dx); Monitoring For Therapeutic Drug Therapy; Half-Way (Current) Anticoagulant Treatment 04/16/2022 Orders Only Department of Cardiovascular Diseases in [place], [place] [address] [place] [phone] Roberto Dumont APRN, C.N.P. 04/15/2022 Refill Department of Internal Medicine in [place], [place] [address] [place] [phone] Soheila Zapata P.A.-C., M.S. Med Refill 04/15/2022 Refill Department of Internal Medicine in [address] [address] Addie De La Garza M.D. Med Refill 04/10/2022 Refill Department of Internal Medicine in [place], [place] [address] [place] [phone] Soheila Zapata P.A.-C., M.S. Med Refill 04/07/2022 10:10 AM DRYING MACHINE RECEIVER - 04/07/2022 10:17 AM [facility] Hospital Encounter Department of Laboratory Medicine in [place], [place] [address] [place] [phone] Soheila Zapata P.A.-C., M.S. Atrial Fibrillation Unspecified; Monitoring For Therapeutic Drug Therapy; Director Of Cardiopulmonary Services (Current) Anticoagulant Treatment Discharge Disposition: Home or Self Care 04/07/2022 10:50 AM [facility] Anticoagulation Visit Department of Anticoagulation in [place] [address] [place] [address] Soheila Zapata P.A.-C., M.S. Atrial Fibrillation Unspecified (Primary Dx); Monitoring For Therapeutic Drug Therapy; Director Of Cardiopulmonary Services (Current) Anticoagulant Treatment 04/07/2022 10:18 AM DRYING MACHINE RECEIVER - 04/07/2022 11:59 PM DRYING MACHINE RECEIVER Hospital Encounter Department of Cardiovascular Diseases in [place], [place] [address] [place] [phone] Roberto Dumont APRN, C.N.P. Atrial Fibrillation Other Persistent (HCC) Discharge Disposition: Home or Self Care 03/31/2022 Clinical Communication Department of Internal Medicine in [place], [place] [address] [place] [phone] Soheila Zapata P.A.-C., M.S. 03/31/2022 Nurse Triage Department of Internal Medicine in [place], [place] [address] [place] [address] Tammy Ramos M.S.N., R.N. Eye Problem 03/31/2022 12:30 PM DRYING MACHINE RECEIVER Anticoagulation Visit Department of Anticoagulation in [place], [place] [address] [place] [phone] Soheila Zapata P.A.-CHowie, M.S. Atrial Fibrillation Unspecified (Primary Dx); Monitoring For Therapeutic Drug Therapy; Half-Way (Current) Anticoagulant Treatment 03/31/2022 11:50 AM DRYING MACHINE RECEIVER - 03/31/2022 11:59 PM DRYING MACHINE RECEIVER Hospital Encounter Department of Laboratory Medicine in [address] [phone] Soheila Zapata P.A.-Darryl, M.S. Atrial Fibrillation Unspecified; Monitoring For Therapeutic Drug Therapy; Director Of Cardiopulmonary Services (Current) Anticoagulant Treatment Discharge Disposition: Home or Self Care 03/27/2022 Clinical Communication Department of Anticoagulation in [place], [place] [address] [place] [phone] Alesha Gonzalez R.N. Anticoagulation 03/24/2022 1:30 PM DRYING MACHINE RECEIVER Anticoagulation Visit Department of Anticoagulation in [place], [place] [address] [place] [phone] Soheila Zapata P.A.-C., M.S. Atrial Fibrillation Unspecified (Primary Dx); Monitoring For Therapeutic Drug Therapy; Director Of Cardiopulmonary Services (Current) Anticoagulant Treatment 03/24/2022 12:44 PM DRYING MACHINE RECEIVER - 03/24/2022 11:59 PM DRYING MACHINE RECEIVER Hospital Encounter Department of Laboratory Medicine in [place], [place] [address] [place] [phone] Soheila Zapata P.Genie.-C., M.S. Atrial Fibrillation Unspecified; Monitoring For Therapeutic Drug Therapy; Half-Way (Current) Anticoagulant Treatment Discharge Disposition: Home or Self Care 03/16/2022 10:30 AM DRYING MACHINE RECEIVER Anticoagulation Visit Department of Anticoagulation in [place], [place] [address] [place] [phone] Soheila Zapata P.A.-C., M.S. Atrial Fibrillation Unspecified (Primary Dx); Monitoring For Therapeutic Drug Therapy; Half-Way (Current) Anticoagulant Treatment 03/16/2022 9:50 AM DRYING MACHINE RECEIVER - 03/16/2022 11:59 PM DRYING MACHINE RECEIVER Hospital Encounter Department of Laboratory Medicine in [address] [phone] Soheila Zapata P.A.-C., M.S. Atrial Fibrillation Unspecified; Monitoring For Therapeutic Drug Therapy; Director Of Cardiopulmonary Services (Current) Anticoagulant Treatment Discharge Disposition: Home or Self Care 03/06/2022 10:50 AM DRYING MACHINE RECEIVER - 03/06/2022 11:59 PM DRYING MACHINE RECEIVER Hospital Encounter Department of Laboratory Medicine in [address] [phone] Soheila Zapata P.A.-C., M.S. Atrial Fibrillation Unspecified; Monitoring For Therapeutic Drug Therapy; Half-Way (Current) Anticoagulant Treatment Discharge Disposition: Home or Self Care 03/06/2022 11:40 AM DRYING MACHINE RECEIVER Anticoagulation Visit Department of Anticoagulation in [address] [phone] Soheila Zapata P.A.-C., M.S. Atrial Fibrillation Unspecified (Primary Dx); Monitoring For Therapeutic Drug Therapy; Director Of Cardiopulmonary Services (Current) Anticoagulant Treatment 02/20/2022 10:50 AM DRYING MACHINE RECEIVER - 02/20/2022 11:59 PM DRYING MACHINE RECEIVER Hospital Encounter Department of Laboratory Medicine in [address] [phone] Soheila Zapata P.A.-C., M.S. Atrial Fibrillation Unspecified; Monitoring For Therapeutic Drug Therapy; Half-Way (Current) Anticoagulant Treatment Discharge Disposition: Home or Self Care 02/20/2022 11:30 AM DRYING MACHINE RECEIVER Anticoagulation Visit Department of Anticoagulation in [address] [address] Soheila Zapata P.A.-C., M.S. Atrial Fibrillation Unspecified (Primary Dx); Monitoring For Therapeutic Drug Therapy; Half-Way (Current) Anticoagulant Treatment 02/13/2022 11:20 AM DRYING MACHINE RECEIVER - 02/13/2022 11:59 PM DRYING MACHINE RECEIVER Hospital Encounter Department of Laboratory Medicine in [address] [phone] Soheila Zapata P.A.-C., M.S. Atrial Fibrillation Unspecified; Monitoring For Therapeutic Drug Therapy; Half-Way (Current) Anticoagulant Treatment Discharge Disposition: Home or Self Care 02/13/2022 12:00 PM DRYING MACHINE RECEIVER Anticoagulation Visit Department of Anticoagulation in [address] [phone] Soheila Zapata P.A.-C., M.S. Atrial Fibrillation Unspecified (Primary Dx); Monitoring For Therapeutic Drug Therapy; Director Of Cardiopulmonary Services (Current) Anticoagulant Treatment 02/09/2022 8:00 AM DRYING MACHINE RECEIVER Anticoagulation Visit Department of Anticoagulation in [address] [address] Soheila Zapata P.A.-C., M.S. Atrial Fibrillation Unspecified (Primary Dx); Monitoring For Therapeutic Drug Therapy; Director Of Cardiopulmonary Services (Current) Anticoagulant Treatment 02/06/2022 Clinical Communication Department of Anticoagulation in [address] [phone] Trish Chambers R.N. Anticoagulation (Unable to reach ) 02/06/2022 2:40 PM DRYING MACHINE RECEIVER - 02/06/2022 11:59 PM DRYING MACHINE RECEIVER Hospital Encounter Department of Laboratory Medicine in [address] [phone] Soheila Zapata P.A.-C., M.S. Atrial Fibrillation Unspecified; Monitoring For Therapeutic Drug Therapy; Half-Way (Current) Anticoagulant Treatment Discharge Disposition: Home or Self Care 02/03/2022 1:00 PM DRYING MACHINE RECEIVER Virtual Visit Department of Patient Education in [address] [phone] Soheila Zapata P.A.CandidoC., M.S. Genesis Hooper, M.S. Atrial Fibrillation Unspecified; Monitoring For Therapeutic Drug Therapy; Director Of Cardiopulmonary Services (Current) Anticoagulant Treatment 02/02/2022 12:50 PM DRYING MACHINE RECEIVER Anticoagulation Visit Department of Anticoagulation in [place], [place] [address] [place] [phone] Soheila Zapata P.A.-C., M.S. Atrial Fibrillation Unspecified (Primary Dx); Monitoring For Therapeutic Drug Therapy; Half-Way (Current) Anticoagulant Treatment 02/02/2022 12:06 PM DRYING MACHINE RECEIVER - 02/02/2022 11:59 PM DRYING MACHINE RECEIVER Hospital Encounter Department of Laboratory Medicine in [address] [phone] Soheila Zapata P.A.-C., M.S. Atrial Fibrillation Unspecified; Monitoring For Therapeutic Drug Therapy; Half-Way (Current) Anticoagulant Treatment Discharge Disposition: Home or Self Care 01/23/2022 3:40 PM DRYING MACHINE RECEIVER - 01/23/2022 11:59 PM DRYING MACHINE RECEIVER Hospital Encounter Department of Laboratory Medicine in [address] [phone] Soheila Zapata P.A.-C., M.S. Atrial Fibrillation Unspecified; Monitoring For Therapeutic Drug Therapy; Half-Way (Current) Anticoagulant Treatment Discharge Disposition: Home or Self Care 01/23/2022 4:20 PM DRYING MACHINE RECEIVER Anticoagulation Visit Department of Anticoagulation in [address] [phone] Soheila Zapata P.A.-C., M.S. Atrial Fibrillation Unspecified (Primary Dx); Monitoring For Therapeutic Drug Therapy; Director Of Cardiopulmonary Services (Current) Anticoagulant Treatment 01/20/2022 Clinical Communication Department of Anticoagulation in [place], [place] [address] [place] [phone] Iris Singh Anticoagulation (Unable to reach ) 01/16/2022 10:50 AM DRYING MACHINE RECEIVER Anticoagulation Visit Department of Anticoagulation in [address] [phone] Soheila Zapata P.A.-C., M.S. Atrial Fibrillation Unspecified (Primary Dx); Monitoring For Therapeutic Drug Therapy; Half-Way (Current) Anticoagulant Treatment 01/15/2022 Clinical Communication Department of Anticoagulation in [place], [place] [address] [place] [phone] Angela Shukla R.N. Anticoagulation (Unable to reach) 01/15/2022 11:20 AM DRYING MACHINE RECEIVER - 01/15/2022 11:59 PM DRYING MACHINE RECEIVER Hospital Encounter Department of Laboratory Medicine in [place], [place] [address] [place] [address] Soheila Zapata P.A.-C., M.S. Atrial Fibrillation Unspecified; Monitoring For Therapeutic Drug Therapy; Half-Way (Current) Anticoagulant Treatment Discharge Disposition: Home or Self Care 01/14/2022 11:30 AM DRYING MACHINE RECEIVER Office Visit Department of Physical Medicine and Rehabilitation in [place], [place] [address] [place] [phone] Eder Torres M.D. 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 Atrial Fibrillation Unspecified (Primary Dx); Monitoring For Therapeutic Drug Therapy; Half-Way (Current) Anticoagulant Treatment 01/12/2022 1:40 PM DRYING MACHINE RECEIVER - 01/12/2022 11:59 PM DRYING MACHINE RECEIVER Hospital Encounter Department of Laboratory Medicine in [place], [place] [address] [phone] Soheila Zapata P.A.-C., M.S. Atrial Fibrillation Unspecified; Monitoring For Therapeutic Drug Therapy; Director Of Cardiopulmonary Services (Current) Anticoagulant Treatment Discharge Disposition: Home or Self Care 01/07/2022 Clinical Communication Department of Anticoagulation in [place], [place] [address] [place] [phone] Soham Chino R.N. Anticoagulation (Welcome call) 01/06/2022 Orders Only Department of Anticoagulation in [place], [place] [address] [place] [address] Soham Chino R.N. Atrial Fibrillation Unspecified (Primary Dx); Director Of Cardiopulmonary Services (Current) Anticoagulant Treatment 12/30/2021 2:09 PM CDT - 12/30/2021 11:59 PM CDT Hospital Encounter Department of Laboratory Medicine in [place], [place] [address] [place] [phone] Roberto Dumont APRN, C.N.P. Cardiomyopathy Dilated (HCC); Irregular Pulse Discharge Disposition: Home or Self Care 12/30/2021 3:00 PM CDT Nurse Only Department of Family Medicine, [facility], in [address] [address] Soheila Zapata P.A.-C., M.SNga Lopez, L.P.NHowie Nurse Visit (BP check with home device validation) 12/30/2021 1:30 PM CDT Office Visit Department of Cardiovascular Diseases in [address] [phone] Roberto Dumont APRN, C.N.P. Cardiomyopathy Dilated (HCC) (Primary Dx); Irregular Pulse; Hypertensive Heart With Heart Failure And Chronic Kidney Disease (CKD) Stage 3a Glomerular Filtration Rate (GFR) 45 To 59 (HCC); Atrial Fibrillation Other Persistent (HCC) 12/25/2021 2:25 PM CDT - 12/25/2021 4:01 PM CDT Hospital Encounter Department of Radiology in [place], [place] [address] [place] [phone] Eder Torres M.D. Lumbago With Sciatica Left Side; Spondylolysis Lumbar Region Discharge Disposition: Home or Self Care 12/17/2021 2:00 PM CDT Comprehensive Visit Department of Physical Medicine and Rehabilitation in [address] [phone] Eder Torres M.D. Spondylolysis Lumbar Region (Primary Dx); Lumbago With Sciatica Left Side; Spinal Stenosis Lumbar Region Without Neurogenic Claudication 12/14/2021 Refill Department of Internal Medicine in [address] [address] Addie De La Garza M.D. Med Refill 12/10/2021 Orders Only Department of Internal Medicine in [address] [phone] Soheila Zapata P.A.-C., M.S. Screening Colon Cancer Average Risk 12/09/2021 2:00 PM CDT Office Visit Department of Internal Medicine in [address] [address] Soheila Zapata P.A.-C., M.S. Radiculopathy Sacral (Primary Dx); Radiculopathy Lumbar Fifth Left; Cardiomyopathy Dilated (HCC); Hypertensive Heart With Heart Failure And Chronic Kidney Disease (CKD) Stage 3a Glomerular Filtration Rate (GFR) 45 To 59 (HCC); Screening Colon Cancer Average Risk; Pain Foot Left 12/09/2021 2:45 PM CDT - 12/09/2021 11:59 PM CDT Hospital Encounter Department of Radiology in [address] [phone] Soheila Zapata P.A.-Ashish., M.S. [facility] Adult Discharge Disposition: Home or Self Care 11/18/2021 Clinical Communication Department of Internal Medicine in [address] [address] Soheila Zapata P.A.Quincy., M.S. Pain 11/06/2021 2:35 PM CDT - 11/06/2021 11:59 PM CDT Hospital Encounter Department of Laboratory Medicine in [address] [address] Soheila Zapata P.A.-C., M.S. Hypertensive Chronic Kidney Disease (CKD) Stage 3a Glomerular Filtration Rate (GFR) 45 To 59 (HCC); Hyperlipidemia On Treatment; Maintenance Health Adult; Screening Examination Diabetes Mellitus Discharge Disposition: Home or Self Care 11/06/2021 1:30 PM CDT Office Visit Department of Internal Medicine in [address] [address] Soheila Zapata P.A.-C., M.S. Radiculopathy Lumbar Fifth Left (Primary Dx); Radiculopathy Sacral; Cardiomyopathy Dilated (HCC); Hypertensive Chronic Kidney Disease (CKD) Stage 3a Glomerular Filtration Rate (GFR) 45 To 59 (HCC); Hyperlipidemia On Treatment; Screening Examination Diabetes Mellitus; Maintenance Health Adult 11/04/2021 9:30 AM CDT Office Visit Department of Internal Medicine in [address] [address] Stevan Bhakta D.O. Procedure And Treatment Not Carried Out Due To Patient Leaving Prior To Being Seen By Health Care Provider (Primary Dx) 10/16/2021 Clinical Communication Department of Internal Medicine in [address] [address] Ermelinda Valle M.D. 10/16/2021 Clinical Communication Department of Internal Medicine in [address] [address] Addie De La Garza M.D. [place] referal 09/26/2021 Clinical Communication Department of Internal Medicine in [address] [address] Stevan Bhakta D.O. Form Review (Michell PT - 09/25/21) 09/17/2021 Clinical Communication Department of Internal Medicine in [address] [phone] Ermelinda Valle M.D. 08/21/2021 Clinical Communication Department of Internal Medicine in [address] [address] Stevan Bhakta D.O. Form Review (FMLA) 08/19/2021 9:45 AM CDT Office Visit Department of Internal Medicine in [address] [address] Ermelinda Valle M.D. Lumbago With Sciatica Left Side (Primary Dx) 08/15/2021 Clinical Communication Department of Internal Medicine in [address] [address] Stevan Bhakta D.O. 08/12/2021 Orders Only [facility] Ermelinda Kay M.D. Deficiency Estrogen Post Menopausal 07/23/2021 Orders Only [facility] Stevan Bhakta D.O. 06/26/2021 2:30 PM CDT Office Visit Department of Internal Medicine in [address] [address] Addie De La Garza M.D. Migraine Headache (Primary Dx); Chronic Kidney Disease (CKD), Stage 3 Unspecified (HCC); Hyperlipidemia On Treatment; Rash; Hypertensive Chronic Kidney Disease (CKD) Stage 3a Glomerular Filtration Rate (GFR) 45 To 59 05/07/2021 Orders Only [facility] Stevan Bhakta, D.O. Monitoring For Therapeutic Drug Therapy 01/14/2021 Orders Only [facility] Stevan Bhakta, D.O. Screening Cancer Colon 01/14/2021 Orders Only [facility] Stevan Bhatka, D.O. Screening Cancer Colon 12/31/2020 Orders Only [facility] Ermelinda Kay M.D. 11/12/2020 Orders Only [facility] Ste[facility] Bhakta D.O. Screening Mammogram Breast Cancer; Deficiency Estrogen Post Menopausal 11/04/2020 Clinical Communication Division of [facility] Internal Medicine, [facility], in [place], [place] [address] [place] [address] Nancy Lovett R.N. COVID Nurse Line 11/04/2020 Clinical Communication Department of Internal Medicine in [place], [place] [address] [place] [phone] Stevan Bhakta D.O. COVID Inquiry 08/19/2020 Refill Department of Internal Medicine in [place], [place] [address] [place] [phone] Stevan Bhakta D.O. Med Refill 06/19/2020 Clinical Communication Department of Internal Medicine in [place], [place] [address] [place] [phone] Stevan Bhakta D.O. 06/06/2020 Clinical Communication Department of Internal Medicine in [place], [place] [address] [place] [phone] Butch Velazquez M.D. 05/27/2020 3:17 PM CDT - 05/27/2020 11:59 PM CDT Hospital Encounter Department of Cardiovascular Diseases in [place], [place] [address] [place] [phone] Butch Velazquez M.D. Cardiomyopathy Dilated (HCC) Discharge Disposition: Home or Self Care 05/17/2020 10:45 AM DRYING MACHINE RECEIVER - 05/17/2020 10:53 AM DRYING MACHINE RECEIVER Hospital Encounter Department of Laboratory Medicine in [place], [place] [address] [place] [phone] Butch Velazquez M.D. Cardiomyopathy Dilated (HCC) Discharge Disposition: Home or Self Care 05/17/2020 10:54 AM DRYING MACHINE RECEIVER - 05/17/2020 11:59 PM DRYING MACHINE RECEIVER Hospital Encounter Department of Radiology in [address] [phone] Butch Velazquez M.D. Pain Low Back Discharge Disposition: Home or Self Care 05/16/2020 2:00 PM DRYING MACHINE RECEIVER Office Visit Department of Internal Medicine in [address] [phone] Butch Velazquez M.D. Personal History Of Infectious And Parasitic Disease (COVID-19) (Primary Dx); Radiculopathy Lumbar; Pain Low Back; Cardiomyopathy Dilated (HCC); Chronic Kidney Disease (CKD), Stage 3 Unspecified (HCC) 05/13/2020 Clinical Communication Department of Internal Medicine in [address] [phone] Stevan Bhakta D.O. COVID Inquiry 03/14/2020 Orders Only Department of Internal Medicine in [address] [phone] Butch Velazquez M.D. 02/12/2020 Orders Only [facility] Stevan Bhakta D.Anne. Deficiency Estrogen Post Menopausal; Screening Examination Diabetes Mellitus; Monitoring For Therapeutic Drug Therapy 11/27/2019 Clinical Communication Department of Internal Medicine in [address] [phone] Stevan Bhakta D.O. Results 11/25/2019 External Outreach Department of Internal Medicine in [address] [phone] Patrick Erickson D.O. Infection Upper Respiratory (Primary Dx) Discharge Disposition: Home or Self Care 11/25/2019 Clinical Communication Division of [facility] Internal Medicine, [facility], in [place], [place] [address] [place] [address] Medina Rocha R.N. COVID Nurse Eri 09/29/2019 Clinical Communication Department of Internal Medicine in [place], [place] [address] [place] [phone] Stevan Bhakta D.O. Results 09/28/2019 External Outreach Department of Internal Medicine in [place], [place] [address] [place] [phone] Patrick Erickson D.O. Infection Upper Respiratory (Primary Dx) Discharge Disposition: Home or Self Care 08/23/2019 [facility] Screening Mammogram Breast Cancer 12/14/2018 Orders Only [facility] Stevan Bhakta D.O. Screening Examination Diabetes Mellitus; Monitoring For Therapeutic Drug Therapy 11/09/2018 Refill Department of Cardiovascular Diseases in [place], [place] [address] [place] [phone] Roberto Dumont APRN, C.N.P. Med Refill 10/26/2018 2:30 PM CDT Office Visit Department of Internal Medicine in [place], [place] [address] [place] [phone] Butch Velazquez M.D. Neuralgia Post Herpetic (Primary Dx) 09/23/2018 8:30 AM CDT Office Visit Urgent Care in [place], [place] [address] [place] [phone] Omi Talbot P.A.-C., P.A. Herpes Zoster (Primary Dx); Insect Bite Nonvenomous Abdominal Wall Initial 05/12/2018 Orders Only [facility] PCP [facility] Stevan Bhakta D.O. Screening Mammogram Breast Cancer 01/25/2018 Refill Department of Cardiovascular Diseases in [address] [phone] Roberto Dumont APRN C.N.P. Med Refill 01/05/2018 Orders Only Department of Internal Medicine in [address] [phone] Stevan Bhakta D.O. Deficiency Estrogen Post Menopausal; Screening Mammogram Average Risk Patient 12/30/2017 12:30 PM CDT Office Visit Department of Cardiovascular Diseases in [address] [phone] Tariq Estrella M.D. Brandl, Adam C, APRN, C.N.P. Cardiomyopathy Dilated (HCC); Dyslipidemia 12/28/2017 12:00 PM CDT - 12/28/2017 11:59 PM CDT Hospital Encounter Department of Laboratory Medicine in [address] [phone] Tariq Estrella M.D. Cardiomyopathy Dilated (HCC) Discharge Disposition: Home or Self Care 07/29/2017 Clinical Communication Department of Cardiovascular Diseases in [address] [phone] Tariq Estrella M.D. Results 07/28/2017 8:34 AM CDT - 07/28/2017 11:59 PM CDT Hospital Encounter Department of Cardiovascular Diseases in [address] [phone] Tariq Estrella M.D. Cardiomyopathy Dilated (HCC) Discharge Disposition: Home or Self Care 07/21/2017 Refill Department of Cardiovascular Diseases in [address] [phone] Tariq Estrella M.D. Med Refill 07/19/2017 11:23 AM CDT - 07/19/2017 11:59 PM CDT Hospital Encounter Department of Radiology in [address] [phone] Bayron Fernandez M.D. Pain Low Back Acute Discharge Disposition: Home or Self Care 07/19/2017 12:00 PM CDT Office Visit Urgent Care in [address] [phone] Bayron Fernandez M.D. Pain Low Back Acute (Primary Dx) 07/02/2017 Clinical Communication Department of Cardiovascular Diseases in [address] [phone] Willis Lopez MHowieHZac Communication 07/02/2017 Clinical Communication Department of Internal Medicine in [address] [phone] Elgin Arams M.D. Communication 07/02/2017 10:45 AM CDT Office Visit Department of Cardiovascular Diseases in [address] [phone] Tariq Estrella M.D. Cardiomyopathy Dilated (HCC) (Primary Dx); Dyslipidemia 06/30/2017 7:57 AM CDT - 06/30/2017 11:59 PM CDT Hospital Encounter Department of Laboratory Medicine in [address] [phone] Elgin Armas M.D. Failure Heart (HCC) Discharge Disposition: Home or Self Care 05/19/2017 Orders Only Department of Internal Medicine in [address] [phone] Elgin Armas M.D. Diabetes Mellitus Type 2 (HCC) (Primary Dx); Screening Mammogram Average Risk Patient 12/18/2016 Orders Only Department of Cardiovascular Diseases [place] [address] [place] [address] Tariq Estrella M.D. Failure Heart ([facility]) 08/17/2016 8:27 AM CDT - 08/17/2016 11:59 PM CDT Hospital Encounter [facility] Parvin Regalado M.D. 07/09/2016 10:38 AM CDT - 07/09/2016 11:59 PM CDT Hospital Encounter [facility] Tariq Estrella M.D. 07/01/2016 10:31 AM CDT - 07/01/2016 11:59 PM CDT Hospital Encounter [facility] CARDI[facility] Tariq Estrella M.D. 06/24/2016 9:03 AM CDT - 06/24/2016 11:59 PM CDT Hospital Encounter [facility] ECHO Braulio Simmons M.D. 08/14/2015 8:34 AM CDT - 08/14/2015 11:59 PM CDT Hospital Encounter [facility] INTERNMED Braulio Smimons M.D. 08/12/2015 8:22 AM CDT - 08/12/2015 11:59 PM CDT Hospital Encounter [facility]X [facility] SHOTBoby Villareal M.D. 08/12/2015 8:01 AM CDT - 08/12/2015 [...] LAB Tariq Estrella M.D. 02/13/2015 10:51 AM DRYING MACHINE RECEIVER - 02/13/2015 11:59 PM DRYING MACHINE RECEIVER Hospital Encounter [facility]X [facility] Braulio Simmons M.D. 02/11/2015 9:17 AM DRYING MACHINE RECEIVER - 02/11/2015 11:59 PM DRYING MACHINE RECEIVER Hospital Encounter [facility] Braulio [...] CDT Hospital Encounter [facility] Roberto Dumont APRN, C.N.P. 09/24/2014 10:39 AM CDT - 09/24/2014 11:59 PM CDT Hospital Encounter [facility] INTER[facility] Roberto Dumont APRN, C.N.P. 09/21/2014 8:26 AM CDT - 09/21/2014 11:59 PM CDT Hospital Encounter [facility] Braulio Simmons M.D. 09/21/2014 8:26 AM CDT - 09/21/2014 11:59 PM CDT Hospital Encounter [facility] Braulio Simmons M.D. 08/30/2014 1:52 PM CDT - 08/30/2014 11:59 PM CDT Hospital Encounter [facility] INTER[facility] Roberto Dumont APRN, C.N.P. 08/29/2014 9:28 AM CDT - 08/29/2014 11:59 PM CDT Hospital Encounter [facility] Roberto Dumont APRN, C.N.P. 08/29/2014 9:28 AM CDT - 08/29/2014 11:59 PM CDT Hospital Encounter [facility] Braulio Simmons M.D. 08/17/2014 12:20 PM CDT - 08/17/2014 11:59 PM CDT Hospital Encounter [facility] INTER[facility] Roberto Dumont APRN C.N.P. 08/17/2014 1:54 PM CDT - 08/17/2014 11:59 PM CDT Hospital Encounter [facility] Braulio Simmons M.D. 08/15/2014 7:36 AM CDT - 08/15/2014 11:59 PM CDT Hospital Encounter [facility] Roberto Dumont APRN C.N.P. 08/15/2014 7:35 AM CDT - 08/15/2014 [...] Encounter [facility]X [facility] Braulio Watson M.D. 08/01/2014 5:33 PM CDT - 08/01/2014 11:59 PM CDT Hospital Encounter HX Beronica Carey, P.AHowie 08/01/2014 3:29 PM CDT - 08/01/2014 11:59 PM CDT Hospital Encounter [facility] Bayron Fernandez M.D. 07/20/2014 1:11 PM CDT - 07/20/2014 11:59 PM CDT Hospital Encounter [facility] Dutch Kay M.D. 10/25/2006 Hospital Encounter [facility] Sher Horn M.D. Allergies Active Allergy Reactions Criticality Noted Date Comments Codeine Hives (Reselect Reaction) 07/20/2014 [place] Shortness of breath (Reselect Reaction) 12/09/2021 [place] Medications Medication Sig Dispensed Refills Start Date End Date Status CYANOCOBALAMIN, VITAMIN B-12, ORAL Vitamin B-12 08/14/19 16 Active CHOLECALCIFEROL, VITAMIN D3, ORAL Take 1 capsule by mouth daily. 08/14/19 16 Active cyclobenzaprine (FLEXERIL) 5 mg tablet Take 1 tablet (5 mg total) by mouth at bedtime as needed for muscle spasms. 30 tablet 06/27/19 22 Active ymsalmk-xnjw-glol p-wvmv-islrhn 100 mg-150 mg- 50 mg-150 mg capsule Take by mouth 3 (three) times a day. Active cranberry conc/C/Bacill coag (CRANBERRY URINARY TRACT HEALTH ORAL) Take 1 tablet by mouth daily. Active atorvastatin (LIPITOR) 10 mg tablet take 1 tablet every day 90 tablet 3 04/21/19 24 Active lisinopriL (PRINIVIL,ZESTRIL ) 40 mg tablet take 1 tablet every day 90 tablet 3 04/21/19 24 Active furosemide (LASIX) 20 mg tablet TAKE 1 TABLET (20 MG TOTAL) BY MOUTH DAILY. MAY TAKE AN EXTRA DOSE NEEDED FOR WEIGHT GAIN/EDEMA 100 tablet 3 04/28/19 24 Active carvediloL (COREG) 6.25 mg tablet take 1 tablet twice daily 180 tablet 3 06/24/19 24 Active apixaban (Eliquis) 5 mg tablet Take 1 tablet (5 mg total) by mouth 2 (two) times a day. 180 tablet 3 12/06/19 24 Active ibuprofen (ADVIL,MOTRIN) 200 mg tablet Take by mouth every 6 (six) hours as needed. 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 15 tablet 08/24/19 24 024 Discontinued warfarin (JANTOVEN) 5 mg tabletIndications :Hypertensive Heart With Heart Failure And Chronic Kidney Disease (CKD) Stage 3a Glomerular Filtration Rate (GFR) 45 To 59 (HCC),Hyperlipide homar On Treatment,Atrial Fibrillation Paroxysmal (HCC),Monitoring For Therapeutic Drug Therapy,Half-Way (Current) Anticoagulant Treatment Please take as directed by your Anticoagulation Clinic. 120 tablet 3 08/24/19 24 024 Discontinued Active Problems Problem Noted Date Diagnosed Date Atrial Fibrillation Paroxysmal 01/06/2022 Monitoring For Therapeutic Drug Therapy 01/07/20 Half-Way (Current) Anticoagulant Treatment 03/2021 Radiculopathy Lumbar Fifth [...] 2 Bre Coronary artery disease Mother abiel dahl Diabetes Mother abiel dahl Hypertension Mother abiel dahl Hypothyroidism Mother abiel dahl Obesity Mother abiel dahl Dementia Paternal Grandmother trina dahl Obesity Paternal Grandmother trina dahl Asthma Son 1 janell alberto not sure Migraines Son 2 [place] Migraines Son 3 [facility] Relation Name Status Comments Daughter 1 genesis alberto Daughter 2 Bre Mother abiel dahl Paternal Grandmother trina ramos Son 1 janell alberto Son 2 [place] Son 3 genesis Social History Smoking Status as of 12/08/2023 Tobacco Use Types Packs/Day Years Used Date Smoking Tobacco: Never Assessed [facility] Utilities Answer Date Recorded In the past 12 months has th e electric, gas, oil, or water company [...] often do you attend chur ch or oriental orthodox services? More than 4 times per year 05/30/2022 Do you belong to any clubs o r organizations such as moravian groups, unions, fraternal or athletic groups, or [...] Answer Date Recorded PHQ-2 Score 0 04/27/2023 [facility] [employer] [facility] - Occupational Stress Questionnaire Answer Date [...] your living situation today? I have a [facility] place to live 07/01/2023 Education [...] 163 cm (5' 4.17) 04/27/2023 11:14 AM DRYING MACHINE RECEIVER Body Mass Index 32.82 04/27/2023 11:14 AM DRYING MACHINE RECEIVER Plan of Treatment Upcoming Encounters Date Type Department Care Team (Latest Contact Info) Description 12/13/2023 11:50 AM CDT Appointment Department of Laboratory Medicine in [place], [place] [address] [place] [address] Patrick Erickson D.O. [address] [place] [phone] 12/13/2023 12:30 PM CDT Anticoagulation Visit Department of Anticoagulation in [place], [place] [address] [place] [address] Soheila Zapata P.A.-C., M.S. [address] [place] [phone] 12/24/2023 10:10 AM CDT Appointment Department of Laboratory Medicine in [place], [place] [address] [place] [address] Patrick Erickson D.OHowie [address] [place] [phone] 12/28/2023 1:00 PM CDT Office Visit Department of Internal Medicine in [place], [place] [address] [address] Patrick Erickson D.O. [address] [place] [address] Procedures Procedure Name Priority Date/Time Associated Diagnosis Comments PROTHROMBIN TIME (PT), P Routine 12/03/2023 3:01 PM CDT INR REFLEX, POCT, B Routine 12/03/2023 2:57 PM CDT 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 Or Unspecified Chronic Kidney Disease (HCC) Hyperlipidemia On Treatment Atrial Fibrillation Paroxysmal (HCC) Monitoring For Therapeutic Drug Therapy Half-Way (Current) Anticoagulant Treatment EXTM HOME SARS CORONAVIRUS-2 (COVID-19) ANTIGEN, V Routine 11/26/2023 6:00 PM CDT INR REFLEX, POCT, B Routine 11/22/2023 3:52 PM CDT 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 Or Unspecified Chronic Kidney Disease (HCC) Hyperlipidemia On Treatment Atrial Fibrillation Paroxysmal (HCC) Monitoring For Therapeutic Drug Therapy Director Of Cardiopulmonary Services (Current) Anticoagulant Treatment INR REFLEX, POCT, B Routine 11/12/2023 12:09 PM CDT Atrial Fibrillation Paroxysmal (HCC) Monitoring For Therapeutic Drug Therapy Half-Way (Current) Anticoagulant Treatment INR REFLEX, POCT, B Routine 11/02/2023 2:58 PM CDT 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 Or Unspecified Chronic Kidney Disease (HCC) Hyperlipidemia On Treatment Atrial Fibrillation Paroxysmal (HCC) Monitoring For Therapeutic Drug Therapy Director Of Cardiopulmonary Services (Current) Anticoagulant Treatment INR REFLEX, POCT, B Routine 10/28/2023 3:00 PM CDT 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 Or Unspecified Chronic Kidney Disease (HCC) Hyperlipidemia On Treatment Atrial Fibrillation Paroxysmal (HCC) Monitoring For Therapeutic Drug Therapy Half-Way (Current) Anticoagulant Treatment INR REFLEX, POCT, B Routine 10/15/2023 3:09 PM CDT 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 Or Unspecified Chronic Kidney Disease (HCC) Hyperlipidemia On Treatment Atrial Fibrillation Paroxysmal (HCC) Monitoring For Therapeutic Drug Therapy Half-Way (Current) Anticoagulant Treatment INR REFLEX, POCT, B Routine 10/07/2023 2:55 PM CDT Atrial Fibrillation Paroxysmal (HCC) INR REFLEX, POCT, B Routine 10/01/2023 3:00 PM CDT Hypertensive Heart With Heart Failure And Chronic Kidney Disease (CKD) Stage 3a Glomerular Filtration Rate (GFR) 45 To 59 (HCC) Hyperlipidemia On Treatment Atrial Fibrillation Paroxysmal (HCC) Monitoring For Therapeutic Drug Therapy Half-Way (Current) Anticoagulant Treatment INR REFLEX, POCT, B Routine 09/24/2023 3:14 PM CDT Hypertensive Heart With Heart Failure And Chronic Kidney Disease (CKD) Stage 3a Glomerular Filtration Rate (GFR) 45 To 59 (HCC) Hyperlipidemia On Treatment Atrial Fibrillation Paroxysmal (HCC) Monitoring For Therapeutic Drug Therapy Director Of Cardiopulmonary Services (Current) Anticoagulant Treatment PROTHROMBIN TIME (PT), P Routine 09/21/2023 12:41 PM CDT INR REFLEX, POCT, B Routine 09/21/2023 12:39 PM CDT Hypertensive Heart With Heart Failure And Chronic Kidney Disease (CKD) Stage 3a Glomerular Filtration Rate (GFR) 45 To 59 (HCC) Hyperlipidemia On Treatment Atrial Fibrillation Paroxysmal (HCC) Monitoring For Therapeutic Drug Therapy Half-Way (Current) Anticoagulant Treatment INR REFLEX, POCT, B Routine 09/14/2023 1:00 PM CDT Hypertensive Heart With Heart Failure And Chronic Kidney Disease (CKD) Stage 3a Glomerular Filtration Rate (GFR) 45 To 59 (HCC) Hyperlipidemia On Treatment Atrial Fibrillation Paroxysmal (HCC) Monitoring For Therapeutic Drug Therapy Half-Way (Current) Anticoagulant Treatment INR REFLEX, POCT, B Routine 09/08/2023 3:39 PM CDT Hypertensive Heart With Heart Failure And Chronic Kidney Disease (CKD) Stage 3a Glomerular Filtration Rate (GFR) 45 To 59 (HCC) Hyperlipidemia On Treatment Atrial Fibrillation Paroxysmal (HCC) Monitoring For Therapeutic Drug Therapy Director Of Cardiopulmonary Services (Current) Anticoagulant Treatment INR REFLEX, POCT, B Routine 09/02/2023 3:09 PM CDT Hypertensive Heart With Heart Failure And Chronic Kidney Disease (CKD) Stage 3a Glomerular Filtration Rate (GFR) 45 To 59 (HCC) Hyperlipidemia On Treatment Atrial Fibrillation Paroxysmal (HCC) Monitoring For Therapeutic Drug Therapy Director Of Cardiopulmonary Services (Current) Anticoagulant Treatment INR REFLEX, POCT, B Routine 08/27/2023 2:01 PM CDT Hypertensive Heart With Heart Failure And Chronic Kidney Disease (CKD) Stage 3a Glomerular Filtration Rate (GFR) 45 To 59 (HCC) Hyperlipidemia On Treatment Atrial Fibrillation Paroxysmal (HCC) Monitoring For Therapeutic Drug Therapy Director Of Cardiopulmonary Services (Current) Anticoagulant Treatment INR REFLEX, POCT, B Routine 08/24/2023 9:50 AM CDT Hypertensive Heart With Heart Failure And Chronic Kidney Disease (CKD) Stage 3a Glomerular Filtration Rate (GFR) 45 To 59 (HCC) Hyperlipidemia On Treatment Atrial Fibrillation Paroxysmal (HCC) Monitoring For Therapeutic Drug Therapy Half-Way (Current) Anticoagulant Treatment INR REFLEX, POCT, B Routine 08/16/2023 1:35 PM CDT Hypertensive Heart With Heart Failure And Chronic Kidney Disease (CKD) Stage 3a Glomerular Filtration Rate (GFR) 45 To 59 (HCC) Hyperlipidemia On Treatment Atrial Fibrillation Paroxysmal (HCC) Monitoring For Therapeutic Drug Therapy Half-Way (Current) Anticoagulant Treatment INR REFLEX, POCT, B Routine 08/05/2023 2:44 PM CDT Hypertensive Heart With Heart Failure And Chronic Kidney Disease (CKD) Stage 3a Glomerular Filtration Rate (GFR) 45 To 59 (HCC) Hyperlipidemia On Treatment Atrial Fibrillation Paroxysmal (HCC) Monitoring For Therapeutic Drug Therapy Director Of Cardiopulmonary Services (Current) Anticoagulant Treatment INR REFLEX, POCT, B Routine 07/06/2023 8:46 AM CDT Atrial Fibrillation Paroxysmal (HCC) Hypertensive Heart With Heart Failure And Chronic Kidney Disease (CKD) Stage 3a Glomerular Filtration Rate (GFR) 45 To 59 (HCC) Hyperlipidemia On Treatment Monitoring For Therapeutic Drug Therapy Director Of Cardiopulmonary Services (Current) Anticoagulant Treatment LIPID PANEL, S Routine [...] Paroxysmal (HCC) Monitoring For Therapeutic Drug Therapy Half-Way (Current) Anticoagulant Treatment INR REFLEX, POCT, B Routine 06/03/2023 1:26 PM CDT Hypertensive Heart With Heart Failure And Chronic Kidney Disease (CKD) Stage 3a Glomerular Filtration Rate (GFR) 45 To 59 (HCC) Hyperlipidemia On Treatment Atrial Fibrillation Paroxysmal (HCC) Monitoring For Therapeutic Drug Therapy Director Of Cardiopulmonary Services (Current) Anticoagulant Treatment INR REFLEX, POCT, B Routine 05/27/2023 10:49 AM CDT Hypertensive Heart With Heart Failure And Chronic Kidney Disease (CKD) Stage 3a Glomerular Filtration Rate (GFR) 45 To 59 (HCC) Hyperlipidemia On Treatment Atrial Fibrillation Paroxysmal (HCC) Monitoring For Therapeutic Drug Therapy Half-Way (Current) Anticoagulant Treatment INR REFLEX, POCT, B Routine 05/21/2023 2:55 PM CDT Atrial Fibrillation Paroxysmal (HCC) INR REFLEX, POCT, B Routine 05/07/2023 1:04 PM DRYING MACHINE RECEIVER Hypertensive Heart With Heart Failure And Chronic Kidney Disease (CKD) Stage 3a Glomerular Filtration Rate (GFR) 45 To 59 (HCC) Hyperlipidemia On Treatment Atrial Fibrillation Paroxysmal (HCC) Monitoring For Therapeutic Drug Therapy Director Of Cardiopulmonary Services (Current) Anticoagulant Treatment INR REFLEX, POCT, B Routine 04/30/2023 12:42 PM DRYING MACHINE RECEIVER Hypertensive Heart With Heart Failure And Chronic Kidney Disease (CKD) Stage 3a Glomerular Filtration Rate (GFR) 45 To 59 (HCC) Hyperlipidemia On Treatment Atrial Fibrillation Paroxysmal (HCC) Monitoring For Therapeutic Drug Therapy Half-Way (Current) Anticoagulant Treatment INR REFLEX, POCT, B Routine 04/02/2023 2:53 PM DRYING MACHINE RECEIVER Hypertensive Heart With Heart Failure And Chronic Kidney Disease (CKD) Stage 3a Glomerular Filtration Rate (GFR) 45 To 59 (HCC) Hyperlipidemia On Treatment Atrial Fibrillation Paroxysmal (HCC) Monitoring For Therapeutic Drug Therapy Half-Way (Current) Anticoagulant Treatment INR REFLEX, POCT, B Routine 03/19/2023 3:19 PM DRYING MACHINE RECEIVER Hypertensive Heart With Heart Failure And Chronic Kidney Disease (CKD) Stage 3a Glomerular Filtration Rate (GFR) 45 To 59 (HCC) Monitoring For Therapeutic Drug Therapy Atrial Fibrillation Paroxysmal (HCC) INR REFLEX, POCT, B Routine 03/12/2023 3:11 PM DRYING MACHINE RECEIVER Atrial Fibrillation Paroxysmal (HCC) Monitoring For Therapeutic Drug Therapy Director Of Cardiopulmonary Services (Current) Anticoagulant Treatment INR REFLEX, POCT, B Routine 03/09/2023 2:21 PM DRYING MACHINE RECEIVER Atrial Fibrillation Paroxysmal (HCC) Monitoring For Therapeutic Drug Therapy Director Of Cardiopulmonary Services (Current) Anticoagulant Treatment INR REFLEX, POCT, B Routine 03/05/2023 4:19 PM DRYING MACHINE RECEIVER Atrial Fibrillation Paroxysmal (HCC) Monitoring For Therapeutic Drug Therapy Half-Way (Current) Anticoagulant Treatment INR REFLEX, POCT, B Routine 02/24/2023 5:02 PM DRYING MACHINE RECEIVER Atrial Fibrillation Paroxysmal (HCC) Monitoring For Therapeutic Drug Therapy Half-Way (Current) Anticoagulant Treatment EXTM HOME SARS CORONAVIRUS-2 (COVID-19) ANTIGEN, V Routine 02/24/2023 12:58 PM DRYING MACHINE RECEIVER INR REFLEX, POCT, B Routine 02/16/2023 10:12 AM DRYING MACHINE RECEIVER Atrial Fibrillation Paroxysmal (HCC) Monitoring For Therapeutic Drug Therapy Half-Way (Current) Anticoagulant Treatment INR REFLEX, POCT, B Routine 02/02/2023 12:08 PM DRYING MACHINE RECEIVER Atrial Fibrillation Paroxysmal (HCC) Monitoring For Therapeutic Drug Therapy Director Of Cardiopulmonary Services (Current) Anticoagulant Treatment INR REFLEX, POCT, B Routine 01/26/2023 9:30 AM DRYING MACHINE RECEIVER Atrial Fibrillation Paroxysmal (HCC) Monitoring For Therapeutic Drug Therapy Half-Way (Current) Anticoagulant Treatment INR REFLEX, POCT, B Routine 12/15/2022 11:37 AM CDT Atrial Fibrillation Paroxysmal (HCC) Monitoring For Therapeutic Drug Therapy Half-Way (Current) Anticoagulant Treatment INR REFLEX, POCT, B Routine 11/17/2022 2:18 PM CDT Atrial Fibrillation Paroxysmal (HCC) Monitoring For Therapeutic Drug Therapy Director Of Cardiopulmonary Services (Current) Anticoagulant Treatment INR REFLEX, POCT, B Routine 11/10/2022 12:18 PM CDT Atrial Fibrillation Paroxysmal (HCC) Monitoring For Therapeutic Drug Therapy Half-Way (Current) Anticoagulant Treatment INR REFLEX, POCT, B Routine 11/04/2022 2:23 PM CDT Atrial Fibrillation Paroxysmal (HCC) Monitoring For Therapeutic Drug Therapy Half-Way (Current) Anticoagulant Treatment INR REFLEX, POCT, B Routine 10/27/2022 11:50 AM CDT Atrial Fibrillation Paroxysmal (HCC) Monitoring For Therapeutic Drug Therapy Director Of Cardiopulmonary Services (Current) Anticoagulant Treatment BASIC METABOLIC PANEL, S/P Routine 10/12/2022 10:09 AM CDT Hypertensive Heart With Heart Failure And Chronic Kidney Disease (CKD) Stage 3a Glomerular Filtration Rate (GFR) 45 To 59 (HCC) INR REFLEX, POCT, B Routine 10/12/2022 10:02 AM CDT Atrial Fibrillation Paroxysmal (HCC) Monitoring For Therapeutic Drug Therapy Director Of Cardiopulmonary Services (Current) Anticoagulant Treatment UT URINALYSIS AUTO W MICRO Routine 10/12/2022 10:02 [...] Paroxysmal (HCC) Monitoring For Therapeutic Drug Therapy Half-Way (Current) Anticoagulant Treatment INR REFLEX, POCT, B Routine 09/17/2022 11:22 AM CDT Atrial Fibrillation Paroxysmal (HCC) Monitoring For Therapeutic Drug Therapy BASIC METABOLIC PANEL, S/P Routine 09/17/2022 11:22 AM CDT Monitoring For Therapeutic Drug Therapy INR REFLEX, POCT, B Routine 09/03/2022 10:43 AM CDT Atrial Fibrillation Unspecified (HCC) Monitoring For Therapeutic Drug Therapy Director Of Cardiopulmonary Services (Current) Anticoagulant Treatment INR REFLEX, POCT, B Routine 08/10/2022 11:16 AM CDT Atrial Fibrillation Unspecified (HCC) Monitoring For Therapeutic Drug Therapy Director Of Cardiopulmonary Services (Current) Anticoagulant Treatment INR REFLEX, POCT, B Routine 08/10/2022 11:15 AM CDT INR REFLEX, POCT, B Routine 07/27/2022 3:15 PM CDT Atrial Fibrillation Unspecified (HCC) Monitoring For Therapeutic Drug Therapy Director Of Cardiopulmonary Services (Current) Anticoagulant Treatment INR REFLEX, POCT, B Routine 07/27/2022 3:14 PM CDT INR REFLEX, POCT, B Routine 06/29/2022 10:21 AM CDT INR REFLEX, POCT, B Routine 06/29/2022 10:21 AM CDT Atrial Fibrillation Unspecified Monitoring For Therapeutic Drug Therapy Half-Way (Current) Anticoagulant Treatment INR REFLEX, POCT, B Routine 06/19/2022 10:34 AM CDT Atrial Fibrillation Unspecified Monitoring For Therapeutic Drug Therapy Director Of Cardiopulmonary Services (Current) Anticoagulant Treatment INR REFLEX, POCT, B Routine 06/19/2022 10:32 AM CDT PROTHROMBIN TIME (PT), P Routine 06/15/2022 10:13 AM CDT INR REFLEX, POCT, B Routine 06/15/2022 10:09 AM CDT INR REFLEX, POCT, B Routine 06/15/2022 10:09 AM CDT Atrial Fibrillation Unspecified Monitoring For Therapeutic Drug Therapy Half-Way (Current) Anticoagulant Treatment INR REFLEX, POCT, B Routine 06/09/2022 10:16 AM CDT Atrial Fibrillation Unspecified Monitoring For Therapeutic Drug Therapy Half-Way (Current) Anticoagulant Treatment PROTHROMBIN TIME (PT), P Routine 06/09/2022 10:16 AM CDT INR REFLEX, POCT, B Routine 06/09/2022 10:09 AM CDT (TTE) 2D ECHO DOPPLER COLOR Routine 06/01/2022 8:09 AM CDT Cardiomyopathy Dilated (HCC) INR REFLEX, POCT, B Routine 05/12/2022 10:01 AM DRYING MACHINE RECEIVER Atrial Fibrillation Unspecified Monitoring For Therapeutic Drug Therapy Half-Way (Current) Anticoagulant Treatment INR REFLEX, POCT, B Routine 05/12/2022 10:00 AM DRYING MACHINE RECEIVER INR REFLEX, POCT, B Routine 04/28/2022 2:50 PM DRYING MACHINE RECEIVER INR REFLEX, POCT, B Routine 04/28/2022 2:50 PM DRYING MACHINE RECEIVER Atrial Fibrillation Unspecified Monitoring For Therapeutic Drug Therapy Half-Way (Current) Anticoagulant Treatment INR REFLEX, POCT, B Routine 04/21/2022 10:55 AM DRYING MACHINE RECEIVER Atrial Fibrillation Unspecified Monitoring For Therapeutic Drug Therapy Half-Way (Current) Anticoagulant Treatment INR REFLEX, POCT, B Routine 04/21/2022 10:54 AM DRYING MACHINE RECEIVER HOLTER MONITOR - IN CLINIC PUTTY AND CAULKING SUPERVISOR Routine 04/08/2022 2:11 AM DRYING MACHINE RECEIVER Atrial Fibrillation Other Persistent (HCC) INR REFLEX, POCT, B Routine 04/07/2022 10:32 AM DRYING MACHINE RECEIVER Atrial Fibrillation Unspecified Monitoring For Therapeutic Drug Therapy Half-Way (Current) Anticoagulant Treatment INR REFLEX, POCT, B Routine 04/07/2022 10:31 AM DRYING MACHINE RECEIVER INR REFLEX, POCT, B Routine 03/31/2022 12:03 PM DRYING MACHINE RECEIVER Atrial Fibrillation Unspecified Monitoring For Therapeutic Drug Therapy Half-Way (Current) Anticoagulant Treatment INR REFLEX, POCT, B Routine 03/31/2022 12:02 PM DRYING MACHINE RECEIVER PROTHROMBIN TIME (PT), P Routine 03/24/2022 1:08 PM DRYING MACHINE RECEIVER INR REFLEX, POCT, B Routine 03/24/2022 1:06 PM DRYING MACHINE RECEIVER Atrial Fibrillation Unspecified Monitoring For Therapeutic Drug Therapy Half-Way (Current) Anticoagulant Treatment INR REFLEX, POCT, B Routine 03/24/2022 1:05 PM DRYING MACHINE RECEIVER INR REFLEX, POCT, B Routine 03/16/2022 10:08 AM DRYING MACHINE RECEIVER INR REFLEX, POCT, B Routine 03/16/2022 10:08 AM DRYING MACHINE RECEIVER Atrial Fibrillation Unspecified Monitoring For Therapeutic Drug Therapy Director Of Cardiopulmonary Services (Current) Anticoagulant Treatment INR REFLEX, POCT, B Routine 03/06/2022 11:06 AM DRYING MACHINE RECEIVER Atrial Fibrillation Unspecified Monitoring For Therapeutic Drug Therapy Half-Way (Current) Anticoagulant Treatment INR REFLEX, POCT, B Routine 03/06/2022 11:05 AM DRYING MACHINE RECEIVER INR REFLEX, POCT, B Routine 02/20/2022 11:30 AM DRYING MACHINE RECEIVER Atrial Fibrillation Unspecified Monitoring For Therapeutic Drug Therapy Director Of Cardiopulmonary Services (Current) Anticoagulant Treatment INR REFLEX, POCT, B Routine 02/20/2022 11:29 AM DRYING MACHINE RECEIVER INR REFLEX, POCT, B Routine 02/13/2022 11:36 AM DRYING MACHINE RECEIVER Atrial Fibrillation Unspecified Monitoring For Therapeutic Drug Therapy Director Of Cardiopulmonary Services (Current) Anticoagulant Treatment INR REFLEX, POCT, B Routine 02/13/2022 11:35 AM DRYING MACHINE RECEIVER INR REFLEX, POCT, B Routine 02/06/2022 2:50 PM DRYING MACHINE RECEIVER INR REFLEX, POCT, B Routine 02/06/2022 2:50 PM DRYING MACHINE RECEIVER Atrial Fibrillation Unspecified Monitoring For Therapeutic Drug Therapy Half-Way (Current) Anticoagulant Treatment INR REFLEX, POCT, B Routine 02/02/2022 12:15 PM DRYING MACHINE RECEIVER INR REFLEX, POCT, B Routine 02/02/2022 12:15 PM DRYING MACHINE RECEIVER Atrial Fibrillation Unspecified Monitoring For Therapeutic Drug Therapy Half-Way (Current) Anticoagulant Treatment INR REFLEX, POCT, B Routine 01/23/2022 3:58 PM DRYING MACHINE RECEIVER Atrial Fibrillation Unspecified Monitoring For Therapeutic Drug Therapy Half-Way (Current) Anticoagulant Treatment INR REFLEX, POCT, B Routine 01/23/2022 3:57 PM DRYING MACHINE RECEIVER INR REFLEX, POCT, B Routine 01/15/2022 11:43 AM DRYING MACHINE RECEIVER Atrial Fibrillation Unspecified Monitoring For Therapeutic Drug Therapy Director Of Cardiopulmonary Services (Current) Anticoagulant Treatment INR REFLEX, POCT, B Routine 01/15/2022 11:42 AM DRYING MACHINE RECEIVER INR REFLEX, POCT, B Routine 01/12/2022 2:19 PM DRYING MACHINE RECEIVER INR REFLEX, POCT, B Routine 01/12/2022 2:19 PM DRYING MACHINE RECEIVER Atrial Fibrillation Unspecified Monitoring For Therapeutic Drug Therapy Half-Way (Current) Anticoagulant Treatment ECG Routine 12/30/2021 2:24 [...] 59 (HCC) HOLTER MONITOR - IN CLINIC PUTTY AND CAULKING SUPERVISOR Routine 05/27/2020 3:59 PM CDT Cardiomyopathy Dilated (HCC) MR LUMBAR SPINE WITHOUT IV CONTRAST RAD - Routine (most inpatients and all outpatients) 05/17/2020 11:41 AM DRYING MACHINE RECEIVER Pain Low Back LIPID PANEL, S Routine 05/17/2020 10:53 AM DRYING MACHINE RECEIVER Cardiomyopathy Dilated (HCC) THYROID-STIMULATING HORMONE-SENSITIVE (S-TSH) Routine 05/17/2020 10:53 AM DRYING MACHINE RECEIVER Cardiomyopathy Dilated (HCC) BASIC METABOLIC PANEL, S/P Routine 05/17/2020 10:53 AM DRYING MACHINE RECEIVER Cardiomyopathy Dilated (HCC) CBC WITH DIFFERENTIAL, B Routine 05/17/2020 10:53 AM DRYING MACHINE RECEIVER Cardiomyopathy Dilated (HCC) SARS CORONAVIRUS-2 RNA, V [...] ELECTROLYTE PANEL, S Routine 02/11/2015 9:35 AM DRYING MACHINE RECEIVER BUN (BLOOD UREA NITROGEN), S/P Routine 02/11/2015 9:35 AM DRYING MACHINE RECEIVER CREATININE WITH EGFR, S/P Routine 02/11/2015 9:35 AM DRYING MACHINE RECEIVER NT-PRO B-TYPE NATRIURETIC PEPTIDE (BNP), S Routine [...] D.O. LAB BLOOD ADD-ON Performing Organization Address City/[facility]/ZIP Co de Phone Number [facility] [address] [place] [address], [facility] OWAT [facility] [place] [address] [place] [address] * (ABNORMAL) INR Reflex, POCT, Blood (12/03/2023 [...] ORDERABLE S - DEVICE Performing Organization Address City/[facility]/ZIP Co de Phone Number [facility] [address] [place] [address], [facility] FB60 [facility] [place] [address] [place] [address] * (ABNORMAL) EXT Home SARS Coronavirus-2 (COVID-19) Antigen (11/26/2023 6:00 PM CDT) Only the most recent of2 resultswithin the time period is included. EXT Home SARS-CoV-2 Antigen Presumptive Positive(A) Presumptive Negative OTHER (SPECIFY IN OUTSIDE SALES REPRESENTATIVE INSURANCE) Swab 11/26/2023 6:00 PM CDT Historical Provider LAB MICROBIOLOGY - G ENERAL ORDERABLES OTHER (SPECIFY IN OUTSIDE SALES REPRESENTATIVE INSURANCE) N/A * Lipid Panel (07/06/2023 8:46 AM [...] AM CDT 07/06/2023 1:08 PM CDT Patrick J Hellweg D.O. LAB BLOOD ADD-ON [facility] [address] [place] [address], [place] [facility] in [place] [address] [place] [address] * (ABNORMAL) CBC with Differential, Blood (07/06/2023 [...] D.O. LAB BLOOD ADD-ON Performing Organization Address City/[facility]/ZIP Co de Phone Number [facility] [address] [place] [address], [place] FB60 [facility] [place] [address] [place] [address] * (ABNORMAL) Glucose, Fasting (07/06/2023 8:46 AM CDT) Glucose, P 131(H) 70 - 100 mg/dL 07/06/2023 2:02 PM CDT OWAT Last Intake 13 hr 07/06/2023 1:09 PM CDT OWAT Blood (Blood, Venous) 07/06/2023 8:46 AM CDT 07/06/2023 1:09 PM CDT Patrick Erickson D.O. LAB BLOOD NON ADD- ON Performing Organization Address City/[facility]/ZIP Co de Phone Number [facility] [address] [place] [address], [place] [facility] [place] [address] [place] [address] * Basic Metabolic Panel (07/06/2023 8:46 AM [...] CDT Patrick Erickson D.O. LAB BLOOD ADD-ON [facility] [address] [place] [address], [place] OWAT [facility] [place] [address] [place] [address] * ECG 12 Lead (06/22/2023 10:27 AM CDT) Only the most recent of3 resultswithin the time period is included. Ventricular Rate ECG/Min 43 BPM MUSE UT Interval 150 ms MUSE QRSD Interval 110 ms MUSE QT Interval 500 ms MUSE QTC Interval 422 ms MUSE P [place] 56 degrees MUSE R [place] 6 degrees MUSE T Wave [place] 269 degrees MUSE 06/22/2023 10:2 7 AM [...] Roberto Dumont APRN C.N.P. ECG ORDERABLE S MUSE NA * (ABNORMAL) Urinalysis with Microscopic [...] 8.0 10/12/2022 10:32 AM CDT FB60 Specific [place] 1.010 1.001 - 1.035 10/12/2022 10:32 AM CDT FB60 Urobilinogen 0.2 0.2 - 1.0 mg/dL 10/12/2022 10:32 AM CDT FB60 Urine (Urine, Midstream) 10/12/2022 10:02 AM CDT 10/12/2022 10:19 AM CDT Soheila Zapata P.A.-C. MHowieSHowie LAB URIN E ORDERABLES Performing Organization Address [facility] Co de Phone Number [facility] [address] [place] [address], [facility] FB60 [facility] [place] [address] * (ABNORMAL) Microscopic Manual (10/12/2022 10:02 AM [...] LAB URIN E ORDERABLES Performing Organization Address [facility] Co de Phone Number [facility] [address] [place] [address], [facility] FB60 [facility] [place] [address] * (ABNORMAL) Albumin, Random, Urine (10/12/2022 10:02 [...] Zapata P.A.-C., M.S. LAB URIN E ORDERABLES [facility] [address] [place] [address], [facility] OWAT [facility] [place] [address] [place] [address] * (TTE) 2D ECHO DOPPLER COLOR (06/01/2022 8:09 AM CDT) Ejection Fraction 48 MC CV EIMS Mid-Ascending [...] were performed but not reported based on manager epic's judgment. Mild generalized left ventricular hypokinesis. Normal [...] were performed but not reported based on manager epic'sjudgment. Mild generalized left ventricular hypokinesis. Normal leftventricular [...] the complete report, see the Order-Level Documents. Ashish Walker APRN.NHowiePHowie CV ECHO PROCE DURES * HOLTER MONITOR - IN CLINIC PUTTY AND CAULKING SUPERVISOR (04/08/2022 2:11 AM DRYING MACHINE RECEIVER) Only the most recent of2 resultswithin the [...] Duration 0 duration INFOBION IC MOME AF [place] 0 percent INFOBIONIC MOME Symptom Count 1 count INFOBI ONIC MOME 04/07/2022 10:3 2 AM DRYING MACHINE RECEIVER Narrative INFOBIONIC MOME - 04/10/2022 9:40 AM DRYING MACHINE RECEIVER [place] 1. The basic rhythm was sinus with [...] were noted in or around these events. Educational Psychology Teacher: Smita Venegas/956 Fellow: Bradly Davenport MD Procedure Note Rachana Silva M.D., Ph.D. - 04/10/2022 [place] 1. The basic rhythm was sinus with [...] bigeminywere noted in or around these events. Educational Psychology Teacher: Smita Venegas/956 Fellow: Bradly Davenport MD Roberto Dumont APRN C.N.P. CV CARDIAC SE RVICES PROCEDURES INFOBIONIC MOME NA * FL LUMBAR SPINE TRANSFORAMINAL EPIDURAL INJECTION LEFT (12/25/2021 3:40 PM CDT) Narrative [address] - 12/25/2021 3:15 PM CDT Eder Torres [...] infiltrate type: lidocaine Eder MAN FLUOROSCOPY PROCEDURES 8042 LOS SEMN * BI Breast Screening Bilateral with Tomosynthesis [...] BI-RADS: 1: Negative. Soheila Zapata P.A.-C., M.S. [facility] BI P ROCEDURES * S-TSH (Thyroid-Stimulating Hormone - Sensitive) (11/06/2021 2:48 PM CDT) Only the most recent of6 resultswithin the time period is included. TSH, Sensitive 2.3 0.3 - 4.2 mIU/L 11/06/2021 3:30 PM CDT OWAT Blood (Blood, Venous) 11/06/2021 2:48 PM CDT 11/06/2021 2:52 PM CDT Soheila Zapata P.A.-C., MHowieSHowie LAB BLOO D ADD-ON Performing Organization Address City/[facility] Co de Phone Number [facility] [address] [place] [address], [facility] in [place] [address] [place], [place] [address] * Sodium (11/06/2021 2:48 PM CDT) Only the most recent of3 resultswithin the time period is included. Sodium, P 142 135 - 145 mmol/L 11/06/2021 3:22 PM CDT OWAT Blood (Blood, Venous) 11/06/2021 2:48 PM CDT 11/06/2021 2:52 PM CDT Soheila Zapata P.A.-C., M.S. LAB BLOO D ADD-ON Performing Organization Address City/[facility]/ZIP Co de Phone Number [facility] [address] [place] [address], [facility] in [place] [address] [place], [place] [address] * Potassium (11/06/2021 2:48 PM CDT) Only the most recent of5 resultswithin the time period is included. Potassium, P 4.2 3.6 - 5.2 mmol/L 11/06/2021 3:22 PM CDT OWAT Blood (Blood, Venous) 11/06/2021 2:48 PM CDT 11/06/2021 2:52 PM CDT Soheial Zapata P.A.-C. MHowieSHowie LAB BLOO D ADD-ON Performing Organization Address [facility] Co de Phone Number [facility] [address] [place] [address], [facility] OWAT [facility] [place] [address] [place] [address] * (ABNORMAL) Hemoglobin A1c (11/06/2021 2:48 PM [...] LAB BLOO D ADD-ON Performing Organization Address [facility] Co de Phone Number [facility] [address] [place] [address], [facility] OWAT [facility] [place] [address] [place] [address] * (ABNORMAL) Creatinine with Estimated GFR (11/06/2021 [...] Zapata P.A.-C. MReinier LAB BLOO D ADD-ON [facility] [address] [place] [address], [facility] OWAT [facility] [place] [address] [place] [address] * MR Lumbar Spine without IV Contrast (05/17/2020 11:41 AM DRYING MACHINE RECEIVER) Anatomical Region Laterality Modality Lumbar Spine, Neuroradiology RST LOS, Neuroradiology ARZ LOS, Neuroradiology FLA LOS N/A Magnetic Resonance 05/17/2020 12:5 1 PM DRYING MACHINE RECEIVER Impressions 05/17/2020 1:09 PM DRYING MACHINE RECEIVER 1. Degenerative spondylosis lumbar spine, as detailed, including essentially severe narrowing of the spinal canal at L4-L5. 2. A left-sided disc extrusion/protrusion at L5-S1 could result in L5 radicular symptoms. 3. Incidental imaging of a 8.6 cm cyst in the spleen probably representing sequela of remote injury or inflammatory insult. Narrative 05/17/2020 1:09 PM DRYING MACHINE RECEIVER EXAM: ??MR LUMBAR SPINE WITHOUT IV CONTRAST [...] few internal septations is best seen on child and adolescent therapist imaging (series 1, images 15-18). This is [...] but does not compress the exiting left L1asvgo root (series 5, image 2-4). No right [...] few internal septations is best seen on child and adolescent therapist imaging (series 1, images 15-18). Thisis probably [...] disc extrusion/protrusion at L5-S1 could result in [id number] symptoms. 3. Incidental imaging of a 8.6 cm cyst in the spleen probablyrepresenting sequela of remote injury or inflammatory insult. Butch Velazquez M.D. IMG MRI PROCEDURES * SARS Coronavirus-2 RNA, V Symptomatic (11/25/2019 1:05 PM CDT) Only the most recent of2 resultswithin the time period is included. SARS-CoV-2 Specimen Source Swab, Nasopharynx 11/26/2019 5:33 AM CDT MKTO SARS CoV-2 RNA, TMA Undetected Undetected 11/26/2019 [...] is performed using the Aptima SARS-CoV-2 assay ([employer] which has received Emergency Use Authorization (EUA) by the U.S. Food and Drug Administration. Fact sheets for this Emergency Use Authorization (EUA) assay can be found at the following links: For Healthcare Providers: https://www.fda.gov/media/881328/download For Patients: https://www.fda.gov/media/418683/download Varies (Nasopharynx) 11/25/2019 1:05 PM CDT 11/25/2019 5:08 PM CDT Patrick Erickson D.O. LAB MICROBIOLOGY - GENERAL ORDERABLES Performing Organization Address City/[facility]/ZIP Co de Phone Number [facility] [address] [place] [address], [facility] MKTO [facility] [place] [address] [place] [address] * Hemoglobin (12/28/2017 12:20 PM CDT) Hemoglobin 12.9 11.6 - 15.0 g/dL 12/28/2017 12:36 PM CDT [facility] Blood (Blood, Venous) 12/28/2017 12:20 PM CDT 12/28/2017 12:34 PM CDT Tariq Estrella M.D. LAB BLOOD ADD-ON Performing Organization Address City/[facility]/ZIP Co de Phone Number [facility] [address] [place] [address], [facility] * (TTE) 2D ECHO DOPPLER COLOR (07/28/2017 9:22 AM CDT) Ejection Fraction 49 MC CV EIMS Mid-Ascending [...] lumbar spondylosis. 3. Malalignment. Bayron Fernandez M.D. [facility] DIAGNOSTIC IMAGI NG PROCEDURES * CBC without Differential (06/30/2017 8:20 AM CDT) Only the most recent of2 resultswithin the time period is included. Hemoglobin 12.5 11.6 - 15.0 g/dL 06/30/2017 8:40 AM CDT [facility] Hematocrit 39.5 35.5 - 44.9 % 06/30/2017 8:40 AM CDT [facility] Erythrocytes 4.46 3.92 - 5.13 x10(12)/L 06/30/2017 8:40 AM CDT [facility] MCV 88.6 78.2 - 97.9 fL 06/30/2017 8:40 AM CDT [facility] RBC Distrib Width 13.6 12.2 - 16.1 % 06/30/2017 8:40 AM CDT [facility] Platelet Count 174 157 - 371 x10(9)/L 06/30/2017 8:40 AM CDT [facility] Leukocytes 6.7 3.4 - 9.6 x10(9)/L 06/30/2017 8:40 AM CDT [facility] Blood 06/30/2017 8:20 AM CDT 06/30/2017 8:36 AM CDT Tariq Estrella M.D. LAB BLOOD ADD-ON Performing Organization Address City/[facility]/ZIP Co de Phone Number [facility] [address] [place] [address] * BUN (Blood Urea Nitrogen) (06/30/2017 8:20 AM CDT) Only the most recent of5 resultswithin the time period is included. BUN (Blood Urea Nitrogen), S 15 6 - 21 mg/dL 06/30/2017 11:08 AM CDT [facility] Blood 06/30/2017 8:20 AM CDT 06/30/2017 8:36 AM CDT Tariq Estrella M.D. LAB BLOOD ADD-ON Performing Organization Address [facility] Co de Phone Number [facility] [address] [place] [address] * Automated Differential (08/17/2016 9:54 AM CDT) [...] M.D. LAB BLOOD ADD-ON Performing Organization Address City/[facility] Co de Phone Number POWERCHART * ALT (Alanine Aminotransferase) (07/09/2016 10:59 AM CDT) Alanine Amniotransferas e, LD 16 7 - 45 UNITL POWERCHART Blood 07/09/2016 10:5 9 AM CDT Tariq Estrella M.D. LAB BLOOD ADD-ON Performing Organization Address [facility] de Phone Number POWERCHART * AST (Aspartate Aminotransferase) (07/09/2016 10:59 AM CDT) Aspartate Aminotransferase (AST), S 16 8 - 43 UNITL POWERCHART Blood 07/09/2016 10:5 9 AM CDT Tariq Estrella M.D. LAB BLOOD ADD-ON Performing Organization Address [facility] de Phone Number POWERCHART * Electrolyte Panel [...] M.D. LAB BLOOD ADD-ON Performing Organization Address [facility] de Phone Number POWERCHART * ECHOCARDIOLOGY IMAGE EXAM (06/24/2016 9:21 AM CDT) Only the most recent of4 resultswithin the time period is included. Anatomical Region Laterality Modality Other 06/24/2016 9:21 AM CDT Addenda Addendum by Provider, Kerri Webster on 06/24/2016 9:21 AM CDT ECHO^^^MCR Non-Radiology [...] BLOOD ADD-ON POWERCHART * Echo Transthoracic (TTE) (12/05/2014 8:09 AM CDT) Anatomical Region Laterality Modality Echocardiography 12/05/2014 8:09 AM CDT Historical Provider CV ECHO PROCEDURES * T3 (Triiodothyronine), Free (08/29/2014 9:34 AM CDT) T3 (Triiodothyronine ), Free, S 2.6 2.0 - 3.5 PGML POWERCHART Comment: Test Performed by: [place] [address] Heavy Equipment Rental Associate: Raúl Loyola II, M.D., Ph.D. Blood 08/29/2014 9:34 AM CDT Braulio Simmons M.D. LAB BLOOD ADD-O N Performing Organization Address [facility] Co de Phone Number POWERCHART * T4 (Thyroxine), Free (08/29/2014 9:34 AM CDT) T4 (Thyroxine), Free, S 0.92 0.90 - 1.70 NGDL POWERCHART Blood 08/29/2014 9:34 AM CDT Braulio Simmons M.D. LAB BLOOD ADD-O N Performing Organization Address [facility] de Phone Number POWERCHART * Ferritin (08/15/2014 7:52 AM CDT) Ferritin, S 42.8 11.0 - 307.0 NGML POWERCHART Blood 08/15/2014 7:52 AM CDT Tariq Estrella M.D. LAB BLOOD ADD-ON Performing Organization Address [facility] de Phone Number POWERCHART * Echo Transthoracic (TTE) (08/03/2014 9:15 [...] atelectasis. Procedure Note Dago Myers M.D. / Darin Anna M.D. - 07/15/2016 EXAM: XR Chest 2 [...] edema or interstitial infection. Keri George(R), R.THowie(MR) IMG DI AGNOSTIC IMAGING PROCEDURES * Troponin I (08/01/2014 4:09 PM CDT) Pathologist [facility] Troponin I, S see report 0 - 0 NGML POWERCHART Blood 08/01/2014 4:09 PM CDT Bayron Fernandez M.D. LAB BLOOD NON ADD-ON POWERCHART * (ABNORMAL) D-Dimer (08/01/2014 4:09 PM [...] (HCC) 12/30/2021 Atrial Fibrillation Unspecified (HCC) 01/06/2022 Director Of Cardiopulmonary Services (Current) Anticoagulant Treatment 01/06/2022 Atrial Fibrillation Unspecified (HCC) 01/07/2022 Monitoring For Therapeutic Drug Therapy 01/07/2022 Director Of Cardiopulmonary Services (Current) Anticoagulant Treatment 01/07/2022 Atrial Fibrillation Unspecified (HCC) 01/12/2022 Monitoring For Therapeutic Drug Therapy 01/12/2022 Half-Way (Current) Anticoagulant Treatment 01/12/2022 Atrial Fibrillation Unspecified (HCC) 01/12/2022 Monitoring For Therapeutic Drug Therapy 01/12/2022 Director Of Cardiopulmonary Services (Current) Anticoagulant Treatment 01/12/2022 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 01/14/2022 Radiculopathy Lumbosacral 01/14/2022 Atrial Fibrillation Unspecified (HCC) 01/15/2022 Monitoring For Therapeutic Drug Therapy 01/15/2022 Half-Way (Current) Anticoagulant Treatment 01/15/2022 Atrial Fibrillation Unspecified (HCC) 01/15/2022 Monitoring For Therapeutic Drug Therapy 01/15/2022 Director Of Cardiopulmonary Services (Current) Anticoagulant Treatment 01/15/2022 Atrial Fibrillation Unspecified (HCC) 01/16/2022 Monitoring For Therapeutic Drug Therapy 01/16/2022 Half-Way (Current) Anticoagulant Treatment 01/16/2022 Atrial Fibrillation Unspecified (HCC) 01/23/2022 Monitoring For Therapeutic Drug Therapy 01/23/2022 Director Of Cardiopulmonary Services (Current) Anticoagulant Treatment 01/23/2022 Atrial Fibrillation Unspecified (HCC) 01/23/2022 Monitoring For Therapeutic Drug Therapy 01/23/2022 Director Of Cardiopulmonary Services (Current) Anticoagulant Treatment 01/23/2022 Atrial Fibrillation Unspecified (HCC) 02/02/2022 Monitoring For Therapeutic Drug Therapy 02/02/2022 Half-Way (Current) Anticoagulant Treatment 02/02/2022 Atrial Fibrillation Unspecified (HCC) 02/02/2022 Monitoring For Therapeutic Drug Therapy 02/02/2022 Director Of Cardiopulmonary Services (Current) Anticoagulant Treatment 02/02/2022 Atrial Fibrillation Unspecified (HCC) 02/03/2022 Monitoring For Therapeutic Drug Therapy 02/03/2022 Half-Way (Current) Anticoagulant Treatment 02/03/2022 Atrial Fibrillation Unspecified (HCC) 02/06/2022 Monitoring For Therapeutic Drug Therapy 02/06/2022 Half-Way (Current) Anticoagulant Treatment 02/06/2022 Atrial Fibrillation Unspecified (HCC) 02/09/2022 Monitoring For Therapeutic Drug Therapy 02/09/2022 Half-Way (Current) Anticoagulant Treatment 02/09/2022 Atrial Fibrillation Unspecified (HCC) 02/13/2022 Monitoring For Therapeutic Drug Therapy 02/13/2022 Director Of Cardiopulmonary Services (Current) Anticoagulant Treatment 02/13/2022 Atrial Fibrillation Unspecified (HCC) 02/13/2022 Monitoring For Therapeutic Drug Therapy 02/13/2022 Director Of Cardiopulmonary Services (Current) Anticoagulant Treatment 02/13/2022 Atrial Fibrillation Unspecified (HCC) 02/20/2022 Monitoring For Therapeutic Drug Therapy 02/20/2022 Director Of Cardiopulmonary Services (Current) Anticoagulant Treatment 02/20/2022 Atrial Fibrillation Unspecified (HCC) 02/20/2022 Monitoring For Therapeutic Drug Therapy 02/20/2022 Director Of Cardiopulmonary Services (Current) Anticoagulant Treatment 02/20/2022 Atrial Fibrillation Unspecified (HCC) 03/06/2022 Monitoring For Therapeutic Drug Therapy 03/06/2022 Half-Way (Current) Anticoagulant Treatment 03/06/2022 Atrial Fibrillation Unspecified (HCC) 03/06/2022 Monitoring For Therapeutic Drug Therapy 03/06/2022 Director Of Cardiopulmonary Services (Current) Anticoagulant Treatment 03/06/2022 Atrial Fibrillation Unspecified (HCC) 03/16/2022 Monitoring For Therapeutic Drug Therapy 03/16/2022 Half-Way (Current) Anticoagulant Treatment 03/16/2022 Atrial Fibrillation Unspecified (HCC) 03/16/2022 Monitoring For Therapeutic Drug Therapy 03/16/2022 Half-Way (Current) Anticoagulant Treatment 03/16/2022 Atrial Fibrillation Unspecified (HCC) 03/24/2022 Monitoring For Therapeutic Drug Therapy 03/24/2022 Half-Way (Current) Anticoagulant Treatment 03/24/2022 Atrial Fibrillation Unspecified (HCC) 03/24/2022 Monitoring For Therapeutic Drug Therapy 03/24/2022 Half-Way (Current) Anticoagulant Treatment 03/24/2022 Atrial Fibrillation Unspecified (HCC) 03/27/2022 Monitoring For Therapeutic Drug Therapy 03/27/2022 Half-Way (Current) Anticoagulant Treatment 03/27/2022 Atrial Fibrillation Unspecified (HCC) 03/31/2022 Monitoring For Therapeutic Drug Therapy 03/31/2022 Director Of Cardiopulmonary Services (Current) Anticoagulant Treatment 03/31/2022 Atrial Fibrillation Unspecified (HCC) 03/31/2022 Monitoring For Therapeutic Drug Therapy 03/31/2022 Director Of Cardiopulmonary Services (Current) Anticoagulant Treatment 03/31/2022 Atrial Fibrillation Unspecified (HCC) 04/07/2022 Monitoring For Therapeutic Drug Therapy 04/07/2022 Half-Way (Current) Anticoagulant Treatment 04/07/2022 Atrial Fibrillation Unspecified (HCC) 04/07/2022 Monitoring For Therapeutic Drug Therapy 04/07/2022 Half-Way (Current) Anticoagulant Treatment 04/07/2022 Atrial Fibrillation Other Persistent (HCC) 04/07/2022 Atrial Fibrillation Unspecified (HCC) 04/21/2022 Atrial Fibrillation Unspecified (HCC) 04/21/2022 Monitoring For Therapeutic Drug Therapy 04/21/2022 Half-Way (Current) Anticoagulant Treatment 04/21/2022 Atrial Fibrillation Unspecified (HCC) 04/21/2022 Monitoring For Therapeutic Drug Therapy 04/21/2022 Director Of Cardiopulmonary Services (Current) Anticoagulant Treatment 04/21/2022 Atrial Fibrillation Unspecified (HCC) 04/28/2022 Monitoring For Therapeutic Drug Therapy 04/28/2022 Half-Way (Current) Anticoagulant Treatment 04/28/2022 Atrial Fibrillation Unspecified (HCC) 04/28/2022 Monitoring For Therapeutic Drug Therapy 04/28/2022 Half-Way (Current) Anticoagulant Treatment 04/28/2022 Atrial Fibrillation Unspecified (HCC) 04/29/2022 Monitoring For Therapeutic Drug Therapy 04/29/2022 Half-Way (Current) Anticoagulant Treatment 04/29/2022 Deficiency Estrogen Post Menopausal 05/12/2022 Atrial Fibrillation Unspecified (HCC) 05/12/2022 Monitoring For Therapeutic Drug Therapy 05/12/2022 Half-Way (Current) Anticoagulant Treatment 05/12/2022 Atrial Fibrillation Unspecified (HCC) 05/12/2022 Monitoring For Therapeutic Drug Therapy 05/12/2022 Half-Way (Current) Anticoagulant Treatment 05/12/2022 Cardiomyopathy Dilated (HCC) 06/01/2022 Atrial Fibrillation Unspecified (HCC) 06/03/2022 Director Of Cardiopulmonary Services (Current) Anticoagulant Treatment 06/03/2022 Cardiomyopathy Dilated (HCC) 06/03/2022 Hyperlipidemia On Treatment 06/03/2022 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 Glomerular Filtration Rate (GFR) 45 To 59 (HCC) 06/03/2022 Atrial Fibrillation Unspecified (HCC) 06/09/2022 Monitoring For Therapeutic Drug Therapy 06/09/2022 Half-Way (Current) Anticoagulant Treatment 06/09/2022 Atrial Fibrillation Unspecified (HCC) 06/09/2022 Monitoring For Therapeutic Drug Therapy 06/09/2022 Director Of Cardiopulmonary Services (Current) Anticoagulant Treatment 06/09/2022 Atrial Fibrillation Unspecified (HCC) 06/15/2022 Monitoring For Therapeutic Drug Therapy 06/15/2022 Half-Way (Current) Anticoagulant Treatment 06/15/2022 Atrial Fibrillation Unspecified (HCC) 06/15/2022 Monitoring For Therapeutic Drug Therapy 06/15/2022 Half-Way (Current) Anticoagulant Treatment 06/15/2022 Atrial Fibrillation Unspecified (HCC) 06/19/2022 Monitoring For Therapeutic Drug Therapy 06/19/2022 Director Of Cardiopulmonary Services (Current) Anticoagulant Treatment 06/19/2022 Atrial Fibrillation Unspecified (HCC) 06/19/2022 Monitoring For Therapeutic Drug Therapy 06/19/2022 Half-Way (Current) Anticoagulant Treatment 06/19/2022 Atrial Fibrillation Unspecified (HCC) 06/29/2022 Monitoring For Therapeutic Drug Therapy 06/29/2022 Director Of Cardiopulmonary Services (Current) Anticoagulant Treatment 06/29/2022 Atrial Fibrillation Unspecified (HCC) 06/29/2022 Monitoring For Therapeutic Drug Therapy 06/29/2022 Half-Way (Current) Anticoagulant Treatment 06/29/2022 Atrial Fibrillation Unspecified (HCC) 07/27/2022 Monitoring For Therapeutic Drug Therapy 07/27/2022 Director Of Cardiopulmonary Services (Current) Anticoagulant Treatment 07/27/2022 Atrial Fibrillation Unspecified (HCC) 07/27/2022 Monitoring For Therapeutic Drug Therapy 07/27/2022 Half-Way (Current) Anticoagulant Treatment 07/27/2022 Atrial Fibrillation Unspecified (HCC) 08/07/2022 Monitoring For Therapeutic Drug Therapy 08/07/2022 Half-Way (Current) Anticoagulant Treatment 08/07/2022 Atrial Fibrillation Unspecified (HCC) 08/10/2022 Monitoring For Therapeutic Drug Therapy 08/10/2022 Half-Way (Current) Anticoagulant Treatment 08/10/2022 Atrial Fibrillation Unspecified (HCC) 08/10/2022 Monitoring For Therapeutic Drug Therapy 08/10/2022 Director Of Cardiopulmonary Services (Current) Anticoagulant Treatment 08/10/2022 Monitoring For Therapeutic Drug Therapy 08/12/2022 Laceration Blood Vessel Left Index Finger Sequela 08/31/2022 Atrial Fibrillation Paroxysmal (HCC) 09/01/2022 Half-Way (Current) Anticoagulant Treatment 09/01/2022 Bradycardia 09/01/2022 Cardiomyopathy Dilated (HCC) 09/01/2022 Hypertensive Heart With Heart Failure And Chronic Kidney Disease (CKD) Stage 3a Glomerular Filtration Rate (GFR) 45 To 59 (HCC) 09/01/2022 Atrial Fibrillation Unspecified (HCC) 09/03/2022 Monitoring For Therapeutic Drug Therapy 09/03/2022 Half-Way (Current) Anticoagulant Treatment 09/03/2022 Atrial Fibrillation Paroxysmal (HCC) 09/03/2022 Monitoring For Therapeutic Drug Therapy 09/03/2022 Half-Way (Current) Anticoagulant Treatment 09/03/2022 Hypertensive Heart With Heart Failure And Chronic Kidney Disease (CKD) Stage 3a Glomerular Filtration Rate (GFR) 45 To 59 (HCC) 09/17/2022 Monitoring For Therapeutic Drug Therapy 09/17/2022 Atrial Fibrillation Paroxysmal (HCC) 09/17/2022 Monitoring For Therapeutic Drug Therapy 09/17/2022 Atrial Fibrillation Paroxysmal (HCC) 09/17/2022 Monitoring For Therapeutic Drug Therapy 09/17/2022 Half-Way (Current) Anticoagulant Treatment 09/17/2022 Atrial Fibrillation Paroxysmal (HCC) 10/01/2022 Monitoring For Therapeutic Drug Therapy 10/01/2022 Director Of Cardiopulmonary Services (Current) Anticoagulant Treatment 10/01/2022 Atrial Fibrillation Paroxysmal (HCC) 10/02/2022 Half-Way (Current) Anticoagulant Treatment 10/02/2022 Monitoring For Therapeutic Drug Therapy 10/02/2022 Atrial Fibrillation Paroxysmal (HCC) 10/02/2022 Monitoring For Therapeutic Drug Therapy 10/02/2022 Director Of Cardiopulmonary Services (Current) Anticoagulant Treatment 10/02/2022 Atrial Fibrillation Paroxysmal (HCC) 10/12/2022 Monitoring For Therapeutic Drug Therapy 10/12/2022 Director Of Cardiopulmonary Services (Current) Anticoagulant Treatment 10/12/2022 Hypertensive Heart With Heart Failure And Chronic Kidney Disease (CKD) Stage 3a Glomerular Filtration Rate (GFR) 45 To 59 (HCC) 10/12/2022 Atrial Fibrillation Paroxysmal (HCC) 10/12/2022 Monitoring For Therapeutic Drug Therapy 10/12/2022 Director Of Cardiopulmonary Services (Current) Anticoagulant Treatment 10/12/2022 Atrial Fibrillation Paroxysmal (HCC) 10/21/2022 Monitoring For Therapeutic Drug Therapy 10/21/2022 Director Of Cardiopulmonary Services (Current) Anticoagulant Treatment 10/21/2022 Atrial Fibrillation Paroxysmal (HCC) 10/27/2022 Monitoring For Therapeutic Drug Therapy 10/27/2022 Half-Way (Current) Anticoagulant Treatment 10/27/2022 Atrial Fibrillation Paroxysmal (HCC) 10/28/2022 Monitoring For Therapeutic Drug Therapy 10/28/2022 Director Of Cardiopulmonary Services (Current) Anticoagulant Treatment 10/28/2022 Atrial Fibrillation Paroxysmal (HCC) 11/04/2022 Monitoring For Therapeutic Drug Therapy 11/04/2022 Director Of Cardiopulmonary Services (Current) Anticoagulant Treatment 11/04/2022 Atrial Fibrillation Paroxysmal (HCC) 11/04/2022 Monitoring For Therapeutic Drug Therapy 11/04/2022 Director Of Cardiopulmonary Services (Current) Anticoagulant Treatment 11/04/2022 Atrial Fibrillation Paroxysmal (HCC) 11/10/2022 Monitoring For Therapeutic Drug Therapy 11/10/2022 Half-Way (Current) Anticoagulant Treatment 11/10/2022 Atrial Fibrillation Paroxysmal (HCC) 11/10/2022 Monitoring For Therapeutic Drug Therapy 11/10/2022 Director Of Cardiopulmonary Services (Current) Anticoagulant Treatment 11/10/2022 Atrial Fibrillation Paroxysmal (HCC) 11/17/2022 Monitoring For Therapeutic Drug Therapy 11/17/2022 Director Of Cardiopulmonary Services (Current) Anticoagulant Treatment 11/17/2022 Atrial Fibrillation Paroxysmal (HCC) 11/17/2022 Monitoring For Therapeutic Drug Therapy 11/17/2022 Half-Way (Current) Anticoagulant Treatment 11/17/2022 Atrial Fibrillation Paroxysmal (HCC) 12/15/2022 Monitoring For Therapeutic Drug Therapy 12/15/2022 Half-Way (Current) Anticoagulant Treatment 12/15/2022 Hypertensive Heart With Heart Failure And Chronic Kidney Disease (CKD) Stage 3a Glomerular Filtration Rate (GFR) 45 To 59 (HCC) 12/15/2022 Atrial Fibrillation Paroxysmal (HCC) 12/15/2022 Monitoring For Therapeutic Drug Therapy 12/15/2022 Director Of Cardiopulmonary Services (Current) Anticoagulant Treatment 12/15/2022 Atrial Fibrillation Paroxysmal (HCC) 01/26/2023 Monitoring For Therapeutic Drug Therapy 01/26/2023 Director Of Cardiopulmonary Services (Current) Anticoagulant Treatment 01/26/2023 Atrial Fibrillation Paroxysmal (HCC) 01/26/2023 Monitoring For Therapeutic Drug Therapy 01/26/2023 Half-Way (Current) Anticoagulant Treatment 01/26/2023 Atrial Fibrillation Paroxysmal (HCC) 02/02/2023 Monitoring For Therapeutic Drug Therapy 02/02/2023 Director Of Cardiopulmonary Services (Current) Anticoagulant Treatment 02/02/2023 Atrial Fibrillation Paroxysmal (HCC) 02/02/2023 Monitoring For Therapeutic Drug Therapy 02/02/2023 Director Of Cardiopulmonary Services (Current) Anticoagulant Treatment 02/02/2023 Atrial Fibrillation Paroxysmal (HCC) 02/16/2023 Monitoring For Therapeutic Drug Therapy 02/16/2023 Director Of Cardiopulmonary Services (Current) Anticoagulant Treatment 02/16/2023 Atrial Fibrillation Paroxysmal (HCC) 02/16/2023 Monitoring For Therapeutic Drug Therapy 02/16/2023 Director Of Cardiopulmonary Services (Current) Anticoagulant Treatment 02/16/2023 Atrial Fibrillation Paroxysmal (HCC) 02/24/2023 Monitoring For Therapeutic Drug Therapy 02/24/2023 Director Of Cardiopulmonary Services (Current) Anticoagulant Treatment 02/24/2023 COVID-19 Infection 02/24/2023 ERRONEOUS ENCOUNTER--DISREGARD 02/24/2023 Atrial Fibrillation Paroxysmal (HCC) 02/25/2023 Monitoring For Therapeutic Drug Therapy 02/25/2023 Half-Way (Current) Anticoagulant Treatment 02/25/2023 Atrial Fibrillation Paroxysmal (HCC) 03/05/2023 Monitoring For Therapeutic Drug Therapy 03/05/2023 Half-Way (Current) Anticoagulant Treatment 03/05/2023 Atrial Fibrillation Paroxysmal (HCC) 03/05/2023 Monitoring For Therapeutic Drug Therapy 03/05/2023 Half-Way (Current) Anticoagulant Treatment 03/05/2023 Hypertensive Heart With Heart Failure And Chronic Kidney Disease (CKD) Stage 3a Glomerular Filtration Rate (GFR) 45 To 59 (HCC) 03/05/2023 Hyperlipidemia On Treatment 03/05/2023 Atrial Fibrillation Paroxysmal (HCC) 03/09/2023 Monitoring For Therapeutic Drug Therapy 03/09/2023 Director Of Cardiopulmonary Services (Current) Anticoagulant Treatment 03/09/2023 Hypertensive Heart With Heart Failure And Chronic Kidney Disease (CKD) Stage 3a Glomerular Filtration Rate (GFR) 45 To 59 (HCC) 03/09/2023 Hyperlipidemia On Treatment 03/09/2023 Atrial Fibrillation Paroxysmal (HCC) 03/09/2023 Monitoring For Therapeutic Drug Therapy 03/09/2023 Half-Way (Current) Anticoagulant Treatment 03/09/2023 Atrial Fibrillation Paroxysmal (HCC) 03/12/2023 Monitoring For Therapeutic Drug Therapy 03/12/2023 Director Of Cardiopulmonary Services (Current) Anticoagulant Treatment 03/12/2023 Hypertensive Heart With Heart Failure And Chronic Kidney Disease (CKD) Stage 3a Glomerular Filtration Rate (GFR) 45 To 59 (HCC) 03/12/2023 Hyperlipidemia On Treatment 03/12/2023 Atrial Fibrillation Paroxysmal (HCC) 03/12/2023 Monitoring For Therapeutic Drug Therapy 03/12/2023 Half-Way (Current) Anticoagulant Treatment 03/12/2023 Hypertensive Heart With Heart Failure And Chronic Kidney Disease (CKD) Stage 3a Glomerular Filtration Rate (GFR) 45 To 59 (HCC) 03/19/2023 Hyperlipidemia On Treatment 03/19/2023 Atrial Fibrillation Paroxysmal (HCC) 03/19/2023 Monitoring For Therapeutic Drug Therapy 03/19/2023 Director Of Cardiopulmonary Services (Current) Anticoagulant Treatment 03/19/2023 Hypertensive Heart With [...] 04/02/2023 Monitoring For Therapeutic Drug Therapy 04/02/2023 Half-Way (Current) Anticoagulant Treatment 04/02/2023 Hypertensive Heart With Heart Failure And Chronic Kidney Disease (CKD) Stage 3a Glomerular Filtration Rate (GFR) 45 To 59 (HCC) 04/02/2023 Hyperlipidemia On Treatment 04/02/2023 Atrial Fibrillation Paroxysmal (HCC) 04/02/2023 Monitoring For Therapeutic Drug Therapy 04/02/2023 Half-Way (Current) Anticoagulant Treatment 04/02/2023 Hypertensive Heart With [...] 04/30/2023 Monitoring For Therapeutic Drug Therapy 04/30/2023 Director Of Cardiopulmonary Services (Current) Anticoagulant Treatment 04/30/2023 Hypertensive Heart With Heart Failure And Chronic Kidney Disease (CKD) Stage 3a Glomerular Filtration Rate (GFR) 45 To 59 (HCC) 04/30/2023 Hyperlipidemia On Treatment 04/30/2023 Atrial Fibrillation Paroxysmal (HCC) 04/30/2023 Monitoring For Therapeutic Drug Therapy 04/30/2023 Half-Way (Current) Anticoagulant Treatment 04/30/2023 Hypertensive Heart With Heart Failure And Chronic Kidney Disease (CKD) Stage 3a Glomerular Filtration Rate (GFR) 45 To 59 (HCC) 05/07/2023 Hyperlipidemia On Treatment 05/07/2023 Atrial Fibrillation Paroxysmal (HCC) 05/07/2023 Monitoring For Therapeutic Drug Therapy 05/07/2023 Director Of Cardiopulmonary Services (Current) Anticoagulant Treatment 05/07/2023 Hypertensive Heart With Heart Failure And Chronic Kidney Disease (CKD) Stage 3a Glomerular Filtration Rate (GFR) 45 To 59 (HCC) 05/07/2023 Hyperlipidemia On Treatment 05/07/2023 Atrial Fibrillation Paroxysmal (HCC) 05/07/2023 Monitoring For Therapeutic Drug Therapy 05/07/2023 Director Of Cardiopulmonary Services (Current) Anticoagulant Treatment 05/07/2023 Atrial Fibrillation Paroxysmal (HCC) 05/21/2023 Hypertensive Heart With Heart Failure And Chronic Kidney Disease (CKD) Stage 3a Glomerular Filtration Rate (GFR) 45 To 59 (HCC) 05/21/2023 Hyperlipidemia On Treatment 05/21/2023 Atrial Fibrillation Paroxysmal (HCC) 05/21/2023 Monitoring For Therapeutic Drug Therapy 05/21/2023 Half-Way (Current) Anticoagulant Treatment 05/21/2023 Hypertensive Heart With Heart Failure And Chronic Kidney Disease (CKD) Stage 3a Glomerular Filtration Rate (GFR) 45 To 59 (HCC) 05/27/2023 Hyperlipidemia On Treatment 05/27/2023 Atrial Fibrillation Paroxysmal (HCC) 05/27/2023 Monitoring For Therapeutic Drug Therapy 05/27/2023 Director Of Cardiopulmonary Services (Current) Anticoagulant Treatment 05/27/2023 Hypertensive Heart With Heart Failure And Chronic Kidney Disease (CKD) Stage 3a Glomerular Filtration Rate (GFR) 45 To 59 (HCC) 05/27/2023 Hyperlipidemia On Treatment 05/27/2023 Atrial Fibrillation Paroxysmal (HCC) 05/27/2023 Monitoring For Therapeutic Drug Therapy 05/27/2023 Half-Way (Current) Anticoagulant Treatment 05/27/2023 Hypertensive Heart With Heart Failure And Chronic Kidney Disease (CKD) Stage 3a Glomerular Filtration Rate (GFR) 45 To 59 (HCC) 06/03/2023 Hyperlipidemia On Treatment 06/03/2023 Atrial Fibrillation Paroxysmal (HCC) 06/03/2023 Monitoring For Therapeutic Drug Therapy 06/03/2023 Half-Way (Current) Anticoagulant Treatment 06/03/2023 Hypertensive Heart With Heart Failure And Chronic Kidney Disease (CKD) Stage 3a Glomerular Filtration Rate (GFR) 45 To 59 (HCC) 06/03/2023 Hyperlipidemia On Treatment 06/03/2023 Atrial Fibrillation Paroxysmal (HCC) 06/03/2023 Monitoring For Therapeutic Drug Therapy 06/03/2023 Director Of Cardiopulmonary Services (Current) Anticoagulant Treatment 06/03/2023 Atrial Fibrillation Paroxysmal (HCC) 06/22/2023 Hypertensive Heart With Heart Failure And Chronic Kidney Disease (CKD) Stage 3a Glomerular Filtration Rate (GFR) 45 To 59 (HCC) 06/22/2023 Hyperlipidemia On Treatment 06/22/2023 Atrial Fibrillation Paroxysmal (HCC) 06/22/2023 Monitoring For Therapeutic Drug Therapy 06/22/2023 Director Of Cardiopulmonary Services (Current) Anticoagulant Treatment 06/22/2023 Atrial Fibrillation Unspecified (HCC) 06/22/2023 Atrial Fibrillation Paroxysmal (HCC) 06/22/2023 Half-Way (Current) Anticoagulant Treatment 06/22/2023 Monitoring For Therapeutic [...] 06/24/2023 Monitoring For Therapeutic Drug Therapy 06/24/2023 Director Of Cardiopulmonary Services (Current) Anticoagulant Treatment 06/24/2023 Hypertensive Heart With [...] 07/06/2023 Monitoring For Therapeutic Drug Therapy 07/06/2023 Half-Way (Current) Anticoagulant Treatment 07/06/2023 Atrial Fibrillation Paroxysmal (HCC) 07/06/2023 Hypertensive Heart With Heart Failure And Chronic Kidney Disease (CKD) Stage 3a Glomerular Filtration Rate (GFR) 45 To 59 (HCC) 07/06/2023 Hyperlipidemia On Treatment 07/06/2023 Monitoring For Therapeutic Drug Therapy 07/06/2023 Director Of Cardiopulmonary Services (Current) Anticoagulant Treatment 07/06/2023 Hypertensive Heart With Heart Failure And Chronic Kidney Disease (CKD) Stage 3a Glomerular Filtration Rate (GFR) 45 To 59 (HCC) 08/05/2023 Hyperlipidemia On Treatment 08/05/2023 Atrial Fibrillation Paroxysmal (HCC) 08/05/2023 Monitoring For Therapeutic Drug Therapy 08/05/2023 Director Of Cardiopulmonary Services (Current) Anticoagulant Treatment 08/05/2023 Hypertensive Heart With Heart Failure And Chronic Kidney Disease (CKD) Stage 3a Glomerular Filtration Rate (GFR) 45 To 59 (HCC) 08/06/2023 Hyperlipidemia On Treatment 08/06/2023 Atrial Fibrillation Paroxysmal (HCC) 08/06/2023 Monitoring For Therapeutic Drug Therapy 08/06/2023 Half-Way (Current) Anticoagulant Treatment 08/06/2023 Hypertensive Heart With Heart Failure And Chronic Kidney Disease (CKD) Stage 3a Glomerular Filtration Rate (GFR) 45 To 59 (HCC) 08/13/2023 Hyperlipidemia On Treatment 08/13/2023 Atrial Fibrillation Paroxysmal (HCC) 08/13/2023 Monitoring For Therapeutic Drug Therapy 08/13/2023 Half-Way (Current) Anticoagulant Treatment 08/13/2023 Hypertensive Heart With Heart Failure And Chronic Kidney Disease (CKD) Stage 3a Glomerular Filtration Rate (GFR) 45 To 59 (HCC) 08/16/2023 Hyperlipidemia On Treatment 08/16/2023 Atrial Fibrillation Paroxysmal (HCC) 08/16/2023 Monitoring For Therapeutic Drug Therapy 08/16/2023 Director Of Cardiopulmonary Services (Current) Anticoagulant Treatment 08/16/2023 Hypertensive Heart With Heart Failure And Chronic Kidney Disease (CKD) Stage 3a Glomerular Filtration Rate (GFR) 45 To 59 (HCC) 08/17/2023 Hyperlipidemia On Treatment 08/17/2023 Atrial Fibrillation Paroxysmal (HCC) 08/17/2023 Monitoring For Therapeutic Drug Therapy 08/17/2023 Director Of Cardiopulmonary Services (Current) Anticoagulant Treatment 08/17/2023 Hypertensive Heart With Heart Failure And Chronic Kidney Disease (CKD) Stage 3a Glomerular Filtration Rate (GFR) 45 To 59 (HCC) 08/24/2023 Hyperlipidemia On Treatment 08/24/2023 Atrial Fibrillation Paroxysmal (HCC) 08/24/2023 Monitoring For Therapeutic Drug Therapy 08/24/2023 Half-Way (Current) Anticoagulant Treatment 08/24/2023 Hypertensive Heart With Heart Failure And Chronic Kidney Disease (CKD) Stage 3a Glomerular Filtration Rate (GFR) 45 To 59 (HCC) 08/24/2023 Hyperlipidemia On Treatment 08/24/2023 Atrial Fibrillation Paroxysmal (HCC) 08/24/2023 Monitoring For Therapeutic Drug Therapy 08/24/2023 Director Of Cardiopulmonary Services (Current) Anticoagulant Treatment 08/24/2023 Hypertensive Heart With Heart Failure And Chronic Kidney Disease (CKD) Stage 3a Glomerular Filtration Rate (GFR) 45 To 59 (HCC) 08/27/2023 Hyperlipidemia On Treatment 08/27/2023 Atrial Fibrillation Paroxysmal (HCC) 08/27/2023 Monitoring For Therapeutic Drug Therapy 08/27/2023 Half-Way (Current) Anticoagulant Treatment 08/27/2023 Hypertensive Heart With Heart Failure And Chronic Kidney Disease (CKD) Stage 3a Glomerular Filtration Rate (GFR) 45 To 59 (HCC) 08/27/2023 Hyperlipidemia On Treatment 08/27/2023 Atrial Fibrillation Paroxysmal (HCC) 08/27/2023 Monitoring For Therapeutic Drug Therapy 08/27/2023 Half-Way (Current) Anticoagulant Treatment 08/27/2023 Hypertensive Heart With Heart Failure And Chronic Kidney Disease (CKD) Stage 3a Glomerular Filtration Rate (GFR) 45 To 59 (HCC) 09/02/2023 Hyperlipidemia On Treatment 09/02/2023 Atrial Fibrillation Paroxysmal (HCC) 09/02/2023 Monitoring For Therapeutic Drug Therapy 09/02/2023 Half-Way (Current) Anticoagulant Treatment 09/02/2023 Hypertensive Heart With Heart Failure And Chronic Kidney Disease (CKD) Stage 3a Glomerular Filtration Rate (GFR) 45 To 59 (HCC) 09/02/2023 Hyperlipidemia On Treatment 09/02/2023 Atrial Fibrillation Paroxysmal (HCC) 09/02/2023 Monitoring For Therapeutic Drug Therapy 09/02/2023 Director Of Cardiopulmonary Services (Current) Anticoagulant Treatment 09/02/2023 Hypertensive Heart With Heart Failure And Chronic Kidney Disease (CKD) Stage 3a Glomerular Filtration Rate (GFR) 45 To 59 (HCC) 09/08/2023 Hyperlipidemia On Treatment 09/08/2023 Atrial Fibrillation Paroxysmal (HCC) 09/08/2023 Monitoring For Therapeutic Drug Therapy 09/08/2023 Director Of Cardiopulmonary Services (Current) Anticoagulant Treatment 09/08/2023 Hypertensive Heart With Heart Failure And Chronic Kidney Disease (CKD) Stage 3a Glomerular Filtration Rate (GFR) 45 To 59 (HCC) 09/08/2023 Hyperlipidemia On Treatment 09/08/2023 Atrial Fibrillation Paroxysmal (HCC) 09/08/2023 Monitoring For Therapeutic Drug Therapy 09/08/2023 Director Of Cardiopulmonary Services (Current) Anticoagulant Treatment 09/08/2023 Hypertensive Heart With Heart Failure And Chronic Kidney Disease (CKD) Stage 3a Glomerular Filtration Rate (GFR) 45 To 59 (HCC) 09/14/2023 Hyperlipidemia On Treatment 09/14/2023 Atrial Fibrillation Paroxysmal (HCC) 09/14/2023 Monitoring For Therapeutic Drug Therapy 09/14/2023 Half-Way (Current) Anticoagulant Treatment 09/14/2023 Hypertensive Heart With Heart Failure And Chronic Kidney Disease (CKD) Stage 3a Glomerular Filtration Rate (GFR) 45 To 59 (HCC) 09/14/2023 Hyperlipidemia On Treatment 09/14/2023 Atrial Fibrillation Paroxysmal (HCC) 09/14/2023 Monitoring For Therapeutic Drug Therapy 09/14/2023 Half-Way (Current) Anticoagulant Treatment 09/14/2023 Hypertensive Heart With Heart Failure And Chronic Kidney Disease (CKD) Stage 3a Glomerular Filtration Rate (GFR) 45 To 59 (HCC) 09/21/2023 Hyperlipidemia On Treatment 09/21/2023 Atrial Fibrillation Paroxysmal (HCC) 09/21/2023 Monitoring For Therapeutic Drug Therapy 09/21/2023 Director Of Cardiopulmonary Services (Current) Anticoagulant Treatment 09/21/2023 Hypertensive Heart With Heart Failure And Chronic Kidney Disease (CKD) Stage 3a Glomerular Filtration Rate (GFR) 45 To 59 (HCC) 09/21/2023 Hyperlipidemia On Treatment 09/21/2023 Atrial Fibrillation Paroxysmal (HCC) 09/21/2023 Monitoring For Therapeutic Drug Therapy 09/21/2023 Half-Way (Current) Anticoagulant Treatment 09/21/2023 Hypertensive Heart With Heart Failure And Chronic Kidney Disease (CKD) Stage 3a Glomerular Filtration Rate (GFR) 45 To 59 (HCC) 09/24/2023 Hyperlipidemia On Treatment 09/24/2023 Atrial Fibrillation Paroxysmal (HCC) 09/24/2023 Monitoring For Therapeutic Drug Therapy 09/24/2023 Director Of Cardiopulmonary Services (Current) Anticoagulant Treatment 09/24/2023 Hypertensive Heart With Heart Failure And Chronic Kidney Disease (CKD) Stage 3a Glomerular Filtration Rate (GFR) 45 To 59 (HCC) 09/24/2023 Hyperlipidemia On Treatment 09/24/2023 Atrial Fibrillation Paroxysmal (HCC) 09/24/2023 Monitoring For Therapeutic Drug Therapy 09/24/2023 Director Of Cardiopulmonary Services (Current) Anticoagulant Treatment 09/24/2023 Hypertensive Heart With Heart Failure And Chronic Kidney Disease (CKD) Stage 3a Glomerular Filtration Rate (GFR) 45 To 59 (HCC) 10/01/2023 Hyperlipidemia On Treatment 10/01/2023 Atrial Fibrillation Paroxysmal (HCC) 10/01/2023 Monitoring For Therapeutic Drug Therapy 10/01/2023 Director Of Cardiopulmonary Services (Current) Anticoagulant Treatment 10/01/2023 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 Or Unspecified Chronic Kidney Disease (HCC) 10/04/2023 Hyperlipidemia On Treatment 10/04/2023 Atrial Fibrillation Paroxysmal (HCC) 10/04/2023 Monitoring For Therapeutic Drug Therapy 10/04/2023 Half-Way (Current) Anticoagulant Treatment 10/04/2023 Atrial Fibrillation Paroxysmal (HCC) 10/07/2023 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 Or Unspecified Chronic Kidney Disease (HCC) 10/08/2023 Hyperlipidemia On Treatment 10/08/2023 Atrial Fibrillation Paroxysmal (HCC) 10/08/2023 Monitoring For Therapeutic Drug Therapy 10/08/2023 Half-Way (Current) Anticoagulant Treatment 10/08/2023 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 Or Unspecified Chronic Kidney Disease (HCC) 10/15/2023 Hyperlipidemia On Treatment 10/15/2023 Atrial Fibrillation Paroxysmal (HCC) 10/15/2023 Monitoring For Therapeutic Drug Therapy 10/15/2023 Half-Way (Current) Anticoagulant Treatment 10/15/2023 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 Or Unspecified Chronic Kidney Disease (HCC) 10/19/2023 Hyperlipidemia On Treatment 10/19/2023 Atrial Fibrillation Paroxysmal (HCC) 10/19/2023 Monitoring For Therapeutic Drug Therapy 10/19/2023 Half-Way (Current) Anticoagulant Treatment 10/19/2023 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 Or Unspecified Chronic Kidney Disease (HCC) 10/28/2023 Hyperlipidemia On Treatment 10/28/2023 Atrial Fibrillation Paroxysmal (HCC) 10/28/2023 Monitoring For Therapeutic Drug Therapy 10/28/2023 Director Of Cardiopulmonary Services (Current) Anticoagulant Treatment 10/28/2023 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 Or Unspecified Chronic Kidney Disease (HCC) 10/28/2023 Hyperlipidemia On Treatment 10/28/2023 Atrial Fibrillation Paroxysmal (HCC) 10/28/2023 Monitoring For Therapeutic Drug Therapy 10/28/2023 Half-Way (Current) Anticoagulant Treatment 10/28/2023 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 Or Unspecified Chronic Kidney Disease (HCC) 11/02/2023 Hyperlipidemia On Treatment 11/02/2023 Atrial Fibrillation Paroxysmal (HCC) 11/02/2023 Monitoring For Therapeutic Drug Therapy 11/02/2023 Director Of Cardiopulmonary Services (Current) Anticoagulant Treatment 11/02/2023 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 Or Unspecified Chronic Kidney Disease (HCC) 11/02/2023 Hyperlipidemia On Treatment 11/02/2023 Atrial Fibrillation Paroxysmal (HCC) 11/02/2023 Monitoring For Therapeutic Drug Therapy 11/02/2023 Director Of Cardiopulmonary Services (Current) Anticoagulant Treatment 11/02/2023 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 Or Unspecified Chronic Kidney Disease (HCC) 11/02/2023 Hyperlipidemia On Treatment 11/02/2023 Atrial Fibrillation Paroxysmal (HCC) 11/02/2023 Monitoring For Therapeutic Drug Therapy 11/02/2023 Director Of Cardiopulmonary Services (Current) Anticoagulant Treatment 11/02/2023 Atrial Fibrillation Paroxysmal (HCC) 11/12/2023 Monitoring For Therapeutic Drug Therapy 11/12/2023 Director Of Cardiopulmonary Services (Current) Anticoagulant Treatment 11/12/2023 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 Or Unspecified Chronic Kidney Disease (HCC) 11/12/2023 Hyperlipidemia On Treatment 11/12/2023 Atrial Fibrillation Paroxysmal (HCC) 11/12/2023 Monitoring For Therapeutic Drug Therapy 11/12/2023 Director Of Cardiopulmonary Services (Current) Anticoagulant Treatment 11/12/2023 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 Or Unspecified Chronic Kidney Disease (HCC) 11/22/2023 Hyperlipidemia On Treatment 11/22/2023 Atrial Fibrillation Paroxysmal (HCC) 11/22/2023 Monitoring For Therapeutic Drug Therapy 11/22/2023 Half-Way (Current) Anticoagulant Treatment 11/22/2023 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 Or Unspecified Chronic Kidney Disease (HCC) 11/22/2023 Hyperlipidemia On Treatment 11/22/2023 Atrial Fibrillation Paroxysmal (HCC) 11/22/2023 Monitoring For Therapeutic Drug Therapy 11/22/2023 Director Of Cardiopulmonary Services (Current) Anticoagulant Treatment 11/22/2023 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 Or Unspecified Chronic Kidney Disease (HCC) 12/03/2023 Hyperlipidemia On Treatment 12/03/2023 Atrial Fibrillation Paroxysmal (HCC) 12/03/2023 Monitoring For Therapeutic Drug Therapy 12/03/2023 Director Of Cardiopulmonary Services (Current) Anticoagulant Treatment 12/03/2023 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 Or Unspecified Chronic Kidney Disease (HCC) 12/03/2023 Hyperlipidemia On Treatment 12/03/2023 Atrial Fibrillation Paroxysmal (HCC) 12/03/2023 Monitoring For Therapeutic Drug Therapy 12/03/2023 Half-Way (Current) Anticoagulant Treatment 12/03/2023 Atrial Fibrillation Paroxysmal (HCC) 12/06/2023 Care Teams Energy Technician Relationship Specialty Start Date End Date Patrick Erickson D[address]. [address] [place] [phone] PCP - General Internal Medicine 08/12/22
--- OUTSIDE RECORDS SUMMARY | 2023-12-08 10:10 | XMS_ITS | Referral Summary ---
Author Organization [facility] Address [address] [place] [address] Care Team Providers Care Manager Benefit Name Role Phone Patrick Erickson D.O. Primary Care Provider +1- [phone] Source Comments Patient records contain information from all sites at [facility]. For routine questions regarding patient records, call [phone] during business hours, M-F 8:00 AM - 5:00 PM Central Time. Record requests for emergency care only can be directed to [phone] at any time.[facility] Encounters Date Type Department Care Team Description 12/06/2023 Clinical Communication Department of Anticoagulation in [place], [place] [address] [place] [address] Isa Callahan, R.N. Anticoagulation (INR - ordered by provider ) 12/06/2023 Clinical Communication Department of Cardiovascular Diseases in [place], [place] [address] [place] [address] Roberto Dumont, BALTAZAR, C.N.P. Med Question 12/03/2023 2:50 PM CDT - 12/03/2023 11:59 PM CDT Hospital Encounter Department of Laboratory Medicine in [place], [place] [address] [place] [address] Patrick Erickson D.O. 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 Or Unspecified Chronic Kidney Disease (HCC); Hyperlipidemia On Treatment; Atrial Fibrillation Paroxysmal (HCC); Monitoring For Therapeutic Drug Therapy; Manager Academic (Current) Anticoagulant Treatment Discharge Disposition: Home or Self Care 12/03/2023 3:50 PM CDT Anticoagulation Visit Department of Anticoagulation in [place], [place] [address] [place] [address] Soheila Zapata P.A.-C., M.S. Atrial Fibrillation Paroxysmal (HCC) (Primary Dx); 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 Or Unspecified Chronic Kidney Disease (HCC); Hyperlipidemia On Treatment; Monitoring For Therapeutic Drug Therapy; Jail (Current) Anticoagulant Treatment 12/01/2023 Clinical Communication Department of Orthopedic Surgery in [place], [place] [address] [place] [phone] Sher Bauman M.D. Arm Injury; Post Ed Visit Follow-up 11/29/2023 Clinical Communication Department of [facility], [address] in [address] [address] Butch Sanchez R.N. COVID Treatment Review 11/27/2023 Nurse Triage Department of Internal Medicine in [place], [place] [address] [phone] Kari Olivarez R.N. Cough 11/22/2023 4:00 PM CDT Anticoagulation Visit Department of Anticoagulation in [place], [place] [address] [place] [phone] Soheila Zapata P.A.-C., M.S. 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 Or Unspecified Chronic Kidney Disease (HCC) (Primary Dx); Hyperlipidemia On Treatment; Atrial Fibrillation Paroxysmal (HCC); Monitoring For Therapeutic Drug Therapy; Manager Academic (Current) Anticoagulant Treatment 11/22/2023 3:20 PM CDT - 11/22/2023 11:59 PM CDT Hospital Encounter Department of Laboratory Medicine in [address] [address] Patrick Erickson D.O. 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 Or Unspecified Chronic Kidney Disease (HCC); Hyperlipidemia On Treatment; Atrial Fibrillation Paroxysmal (HCC); Monitoring For Therapeutic Drug Therapy; Manager Academic (Current) Anticoagulant Treatment Discharge Disposition: Home or Self Care 11/12/2023 11:50 AM CDT - 11/12/2023 11:59 PM CDT Hospital Encounter Department of Laboratory Medicine in [address] [address] Patrick Erickson D.O. Atrial Fibrillation Paroxysmal (HCC); Monitoring For Therapeutic Drug Therapy; Jail (Current) Anticoagulant Treatment Discharge Disposition: Home or Self Care 11/12/2023 12:30 PM CDT Anticoagulation Visit Department of Anticoagulation in [address] [address] Soheila Zapata PHowieA.-C., M.S. 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 Or Unspecified Chronic Kidney Disease (HCC) (Primary Dx); Hyperlipidemia On Treatment; Atrial Fibrillation Paroxysmal (HCC); Monitoring For Therapeutic Drug Therapy; Manager Academic (Current) Anticoagulant Treatment 11/09/2023 Orders Only [facility] PCP [facility] Patrick Erickson D.O. 11/02/2023 Clinical Communication Department of Anticoagulation in [address] [address] Cullen Guillen R.N. Anticoagulation ([facility] Update-New PCP) 11/02/2023 3:30 PM CDT Anticoagulation Visit Department of Anticoagulation in [address] [phone] Soheila Zapata P.A.-C., M.S. 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 Or Unspecified Chronic Kidney Disease (HCC) (Primary Dx); Hyperlipidemia On Treatment; Atrial Fibrillation Paroxysmal (HCC); Monitoring For Therapeutic Drug Therapy; Manager Academic (Current) Anticoagulant Treatment 11/02/2023 2:50 PM CDT - 11/02/2023 11:59 PM CDT Hospital Encounter Department of Laboratory Medicine in [address] [address] Patrick Erickson D.O. 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 Or Unspecified Chronic Kidney Disease (HCC); Hyperlipidemia On Treatment; Atrial Fibrillation Paroxysmal (HCC); Monitoring For Therapeutic Drug Therapy; Manager Academic (Current) Anticoagulant Treatment Discharge Disposition: Home or Self Care 10/28/2023 3:30 PM CDT Anticoagulation Visit Department of Anticoagulation in [address] [address] Soheila Zapata, P.A.-C., M.S. 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 Or Unspecified Chronic Kidney Disease (HCC) (Primary Dx); Hyperlipidemia On Treatment; Atrial Fibrillation Paroxysmal (HCC); Monitoring For Therapeutic Drug Therapy; Manager Academic (Current) Anticoagulant Treatment 10/28/2023 2:50 PM CDT - 10/28/2023 11:59 PM CDT Hospital Encounter Department of Laboratory Medicine in [address] [address] Patrick Erickson D.O. 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 Or Unspecified Chronic Kidney Disease (HCC); Hyperlipidemia On Treatment; Atrial Fibrillation Paroxysmal (HCC); Monitoring For Therapeutic Drug Therapy; Jail (Current) Anticoagulant Treatment Discharge Disposition: Home or Self Care 10/19/2023 10:10 AM CDT Anticoagulation Visit Department of Anticoagulation in [address] [address] Soheila Zapata P.A.-C., M.S. 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 Or Unspecified Chronic Kidney Disease (HCC) (Primary Dx); Hyperlipidemia On Treatment; Atrial Fibrillation Paroxysmal (HCC); Monitoring For Therapeutic Drug Therapy; Manager Academic (Current) Anticoagulant Treatment 10/15/2023 2:50 PM CDT - 10/15/2023 11:59 PM CDT Hospital Encounter Department of Laboratory Medicine in [address] [address] Patrick Erickson D.O. 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 Or Unspecified Chronic Kidney Disease (HCC); Hyperlipidemia On Treatment; Atrial Fibrillation Paroxysmal (HCC); Monitoring For Therapeutic Drug Therapy; Manager Academic (Current) Anticoagulant Treatment Discharge Disposition: Home or Self Care 10/08/2023 9:30 AM CDT Anticoagulation Visit Department of Anticoagulation in [place], [place] [address] [place] [phone] Soheila Zapata P.A.-CHowie, M.S. 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 Or Unspecified Chronic Kidney Disease (HCC) (Primary Dx); Hyperlipidemia On Treatment; Atrial Fibrillation Paroxysmal (HCC); Monitoring For Therapeutic Drug Therapy; Jail (Current) Anticoagulant Treatment 10/07/2023 2:49 PM CDT - 10/07/2023 11:59 PM CDT Hospital Encounter Department of Laboratory Medicine in [place], [place] [address] [place] [address] Patrick Erickson D.O. Atrial Fibrillation Paroxysmal (HCC) Discharge Disposition: Home or Self Care 10/04/2023 3:50 PM CDT Anticoagulation Visit Department of Anticoagulation in [place], [place] [address] [place] [phone] Soheila Zapata P.A.-C., M.S. Atrial Fibrillation Paroxysmal (HCC) (Primary Dx); 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 Or Unspecified Chronic Kidney Disease (HCC); Hyperlipidemia On Treatment; Monitoring For Therapeutic Drug Therapy; Jail (Current) Anticoagulant Treatment 10/01/2023 Clinical Communication Department of Anticoagulation in [place], [place] [address] [place] [phone] La Mendoza R.N. Anticoagulation (Out of range INR.) 10/01/2023 2:30 PM CDT - 10/01/2023 11:59 PM CDT Hospital Encounter Department of Laboratory Medicine in [place], [place] [address] [place] [address] Patrick Erickson D.O. Hypertensive Heart With Heart Failure And Chronic Kidney Disease (CKD) Stage 3a Glomerular Filtration Rate (GFR) 45 To 59 (HCC); Hyperlipidemia On Treatment; Atrial Fibrillation Paroxysmal (HCC); Monitoring For Therapeutic Drug Therapy; Manager Academic (Current) Anticoagulant Treatment Discharge Disposition: Home or Self Care 09/24/2023 3:30 PM CDT Anticoagulation Visit Department of Anticoagulation in [address] [phone] Soheila Zapata P.A.-C., M.S. Hypertensive Heart With Heart Failure And Chronic Kidney Disease (CKD) Stage 3a Glomerular Filtration Rate (GFR) 45 To 59 (HCC) (Primary Dx); Hyperlipidemia On Treatment; Atrial Fibrillation Paroxysmal (HCC); Monitoring For Therapeutic Drug Therapy; Jail (Current) Anticoagulant Treatment 09/24/2023 2:50 PM CDT - 09/24/2023 11:59 PM CDT Hospital Encounter Department of Laboratory Medicine in [address] [address] Patrick Erickson D.O. Hypertensive Heart With Heart Failure And Chronic Kidney Disease (CKD) Stage 3a Glomerular Filtration Rate (GFR) 45 To 59 (HCC); Hyperlipidemia On Treatment; Atrial Fibrillation Paroxysmal (HCC); Monitoring For Therapeutic Drug Therapy; Manager Academic (Current) Anticoagulant Treatment Discharge Disposition: Home or Self Care 09/21/2023 1:30 PM CDT Anticoagulation Visit Department of Anticoagulation in [address] [address] Soheila Zapata P.A.-C., M.S. Hypertensive Heart With Heart Failure And Chronic Kidney Disease (CKD) Stage 3a Glomerular Filtration Rate (GFR) 45 To 59 (HCC) (Primary Dx); Hyperlipidemia On Treatment; Atrial Fibrillation Paroxysmal (HCC); Monitoring For Therapeutic Drug Therapy; Jail (Current) Anticoagulant Treatment 09/21/2023 11:55 AM CDT - 09/21/2023 11:59 PM CDT Hospital Encounter Department of Laboratory Medicine in [address] [address] Patrick Erickson D.O. Hypertensive Heart With Heart Failure And Chronic Kidney Disease (CKD) Stage 3a Glomerular Filtration Rate (GFR) 45 To 59 (HCC); Hyperlipidemia On Treatment; Atrial Fibrillation Paroxysmal (HCC); Monitoring For Therapeutic Drug Therapy; Jail (Current) Anticoagulant Treatment Discharge Disposition: Home or Self Care 09/14/2023 1:30 PM CDT Anticoagulation Visit Department of Anticoagulation in [place], [place] [address] [place] [phone] Soheila Zapata P.A.-Ashish., M.S. Atrial Fibrillation Paroxysmal (HCC) (Primary Dx); Hypertensive Heart With Heart Failure And Chronic Kidney Disease (CKD) Stage 3a Glomerular Filtration Rate (GFR) 45 To 59 (HCC); Hyperlipidemia On Treatment; Monitoring For Therapeutic Drug Therapy; Jail (Current) Anticoagulant Treatment 09/14/2023 12:44 PM CDT - 09/14/2023 11:59 PM CDT Hospital Encounter Department of Laboratory Medicine in [address] [address] Soheila Zapata P.Genie.-C., M.S. Hypertensive Heart With Heart Failure And Chronic Kidney Disease (CKD) Stage 3a Glomerular Filtration Rate (GFR) 45 To 59 (HCC); Hyperlipidemia On Treatment; Atrial Fibrillation Paroxysmal (HCC); Monitoring For Therapeutic Drug Therapy; Jail (Current) Anticoagulant Treatment Discharge Disposition: Home or Self Care 09/08/2023 4:00 PM CDT Anticoagulation Visit Department of Anticoagulation in [address] [address] Soheila Zapata P.A.-C., M.S. Hypertensive Heart With Heart Failure And Chronic Kidney Disease (CKD) Stage 3a Glomerular Filtration Rate (GFR) 45 To 59 (HCC) (Primary Dx); Hyperlipidemia On Treatment; Atrial Fibrillation Paroxysmal (HCC); Monitoring For Therapeutic Drug Therapy; Manager Academic (Current) Anticoagulant Treatment 09/08/2023 3:20 PM CDT - 09/08/2023 11:59 PM CDT Hospital Encounter Department of Laboratory Medicine in [address] [address] Patrick Erickson D.O. Hypertensive Heart With Heart [...] muscle spasms. 30 tablet 06/27/19 22 Active dgbaafk-oyei-hywc o-sqzw-mrhhhy 100 mg-150 mg- 50 mg-150 mg capsule [...] 6 (six) hours as needed. 08/19/19 23 024 Discontinued warfarin (JANTOVEN) 5 mg tabletIndications :Hypertensive Heart With Heart Failure And Chronic Kidney Disease (CKD) Stage 3a Glomerular Filtration Rate (GFR) 45 To 59 (HCC),Hyperlipide homar On Treatment,Atrial Fibrillation Paroxysmal (HCC),Monitoring For Therapeutic Drug Therapy,Manager Academic (Current) Anticoagulant Treatment Please take as directed by your Anticoagulation Clinic. 15 tablet 08/24/19 24 024 Discontinued warfarin (JANTOVEN) 5 mg tabletIndications :Hypertensive Heart With Heart Failure And Chronic Kidney Disease (CKD) Stage 3a Glomerular Filtration Rate (GFR) 45 To 59 (HCC),Hyperlipide homar On Treatment,Atrial Fibrillation Paroxysmal (HCC),Monitoring For Therapeutic Drug Therapy,Jail (Current) Anticoagulant Treatment Please take as directed by your Anticoagulation Clinic. 120 tablet 3 08/24/19 24 024 Discontinued Active Problems Problem Noted Date Diagnosed Date Atrial Fibrillation Paroxysmal 01/06/2022 Monitoring For Therapeutic Drug Therapy 01/07/20 22 Jail (Current) Anticoagulant Treatment 03/2021 Radiculopathy Lumbar [...] drink = 0.6 oz pur e alcohol) [facility] Utilities Answer Date Recorded In the past 12 months has [facility] [employer], gas, oil, or water [employer] threatened to shut off services in your [...] often do you attend chur ch or buddhism services? More than 4 times per year 05/30/2022 Do you belong to any clubs o r organizations such as roman catholic groups, unions, fraternal or athletic groups, or [...] Date Recorded PHQ-2 Score 0 04/27/2023 [facility] - Occupational [...] your living situation today? I have a [facility] place to live 07/01/2023 Education [...] 163 cm (5' 4.17) 04/27/2023 11:14 AM STRUCTURAL TEST ENGINEER Body Mass Index 32.82 04/27/2023 11:14 AM STRUCTURAL TEST ENGINEER Plan of Treatment Upcoming Encounters Date Type Department Care Team (Latest Contact Info) Description 12/13/2023 11:50 AM CDT Appointment Department of Laboratory Medicine in [place], [place] [address] [place] [phone] Patrick Erickson D.O. [address] [phone] 12/13/2023 12:30 PM CDT Anticoagulation Visit Department of Anticoagulation in [place], [place] [address] [place] [address] Soheila Zapata P.A.-C., M.S. [address] [phone] 12/24/2023 10:10 AM CDT Appointment Department of Laboratory Medicine in [place], [place] [address] [place] [phone] Patrick Erickson D.O. [address] [phone] 12/28/2023 1:00 PM CDT Office Visit Department of Internal Medicine in [place], [place] [address] [address] Patrick Erickson D.O. [address] [phone] Procedures Procedure Name Priority Date/Time Associated Diagnosis [...] Paroxysmal (HCC) Monitoring For Therapeutic Drug Therapy Manager Academic (Current) Anticoagulant Treatment INR REFLEX, POCT, B Routine 11/12/2023 12:09 PM CDT Atrial Fibrillation Paroxysmal (HCC) Monitoring For Therapeutic Drug Therapy Manager Academic (Current) Anticoagulant Treatment INR REFLEX, POCT, B Routine 11/02/2023 2 :58 PM CDT 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 Or Unspecified Chronic Kidney Disease (HCC) Hyperlipidemia On Treatment Atrial Fibrillation Paroxysmal (HCC) Monitoring For Therapeutic Drug Therapy Manager Academic (Current) Anticoagulant Treatment INR REFLEX, POCT, B Routine 10/28/2023 3 :00 PM CDT 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 Or Unspecified Chronic Kidney Disease (HCC) Hyperlipidemia On Treatment Atrial Fibrillation Paroxysmal (HCC) Monitoring For Therapeutic Drug Therapy Manager Academic (Current) Anticoagulant Treatment INR REFLEX, POCT, B [...] Paroxysmal (HCC) Monitoring For Therapeutic Drug Therapy Manager Academic (Current) Anticoagulant Treatment PROTHROMBIN TIME (PT), P Routine 09/21/2023 12:41 PM CDT INR REFLEX, POCT, B Routine 09/21/2023 12:39 PM CDT Hypertensive Heart With Heart Failure And Chronic Kidney Disease (CKD) Stage 3a Glomerular Filtration Rate (GFR) 45 To 59 (HCC) Hyperlipidemia On Treatment Atrial Fibrillation Paroxysmal (HCC) Monitoring For Therapeutic Drug Therapy Manager Academic (Current) Anticoagulant Treatment INR REFLEX, POCT, B [...] CDT Patrick Erickson D.O. LAB BLOOD ADD-ON [facility] [address] [place] [address], [facility] [place] [address] [place] [address] * (ABNORMAL) INR Reflex, POCT, Blood (12/03/2023 [...] D.O. LAB POCT ORDERABLE S - DEVICE [facility] [address] [place] [address], [place] [id number] [facility] [place] [address] [place] [address] * (ABNORMAL) EXT Home SARS Coronavirus-2 (COVID-19) Antigen (11/26/2023 6:00 PM CDT) EXT Home SARS-CoV-2 Antigen Presumptive Positive(A) Presumptive Negative OTHER (SPECIFY IN WORK ORDER DETAILER) Swab 11/26/2023 6:00 PM CDT Historical Provider LAB MICROBIOLOGY - G ENERAL ORDERABLES OTHER (SPECIFY IN WORK ORDER DETAILER) N/A * Basic Metabolic Panel (07/06/2023 8:46 [...] CDT Patrick Erickson D.O. LAB BLOOD ADD-ON [facility] [address] [place] [address], [facility] [place] [address] [place] [address] * BI Breast Screening Bilateral with Tomosynthesis [...] Mammogram ASSESSMENT: BI-RADS: 1: Negative. Soheila Zapata P.A.-C. M.SHowie IMG BI P ROCEDURES from Last 3 Months or Most Recently Relevant to Health Maintenance Additional Health Concerns Infection Onset Date Last Indicated COVID19 11/26/2023 11/26/2023 Care Teams Manager Benefit Relationship Specialty Start Date End Date Patrick Erickson D.O. [address] [place] [phone] PCP - General Internal Medicine 08/12/22
--- OUTSIDE RECORDS SUMMARY | 2023-12-08 10:10 | XMS_ITS ---
Author Organization [facility] Address [address] [place] [address] Care Team Providers Care Switchboard Wirer Name Role Phone Unavailable Unavailable Unavailable Surgery Details Not on file Complications Check Surgery Details section. Procedure Estimated Blood Loss Check Surgery Details section. Procedure Findings Check Surgery Details section. Procedure Specimens Taken Check Surgery Details section.
--- OUTSIDE RECORDS SUMMARY | 2023-12-08 10:10 | XMS_ITS | Encounter Summary ---
Author Organization [facility] Address [address] [place] [address] Care Team Providers Care Food And Beverage 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 Name Role Phone Patrick Erickson D.O. Primary Care Provider +1- [phone] Reason for Visit * Reason Onset Date Comments Med Question 12/06/2023 Encounter Details Date Type Department Care Team (Latest Contact Info) Description 12/06/2023 Clinical Communication Department of Cardiovascular Diseases in [place], [place] [address] [phone] Roberto Dumont, WELFARE VISITOR, C.N.P. [address] [phone] Med Question Social History Tobacco Use Types Packs/Day Years Used Date Smoking Tobacco: Never Smokeless Tobacco: Never Alcohol Use Standard Drinks/Week Comments No 0 (1 standard drink = 0.6 oz pur e alcohol) [facility] Utilities Answer Date Recorded In [...] often do you attend chur ch or lutheran services? More than 4 times per year 05/30/2022 Do you belong to any clubs o r organizations such as bahai groups, unions, fraternal or athletic groups, or [...] Answer Date Recorded PHQ-2 Score 0 04/27/2023 [facility] Occupat ional Health - Occupational [...] your living situation today? I have a [facility] place to live 07/01/2023 Education Answer [...] encounter Miscellaneous Notes * Telephone Encounter - Cindy Castillo, R.N. - 12/06/2023 4:59 PM CDT Patient advised she will need additional blood work before starting Eliquis. CMP has been ordered and she should be getting a call. She will call once she receives the mail order and has completed labs for transition instructions. She is currently holding warfarin for procedure on 12/13/23. Will discuss at 12/13/23 INR visit. documented in this encounter Plan of Treatment Upcoming Encounters Date Type Department Care Team (Latest Contact Info) Description 12/13/2023 11:50 AM CDT Appointment Department of Laboratory Medicine in [place], [place] [address] [place] [address] Patrick Erickson D.O. [address] [phone] 12/13/2023 12:30 PM CDT Anticoagulation Visit Department of Anticoagulation in [place], [place] [address] [place] [address] Soheila Zapata P.A.-C., M.S. [address] [phone] 12/24/2023 10:10 AM CDT Appointment Department of Laboratory Medicine in [address] [phone] Patrick Erickson D.O. [address] [phone] 12/28/2023 1:00 PM CDT Office Visit Department of Internal Medicine in [place], [place] [address] [place] [phone] Patrick Erickson D.O. [address] [phone] Scheduled Orders Name Type Priority Associated Diagnoses Orde r Schedule Comprehensive Metabolic Panel Lab Routine Atrial Fibrillation Paroxysmal (HCC) Expected: 12/06/2023, Expires: 03/06/2025 documented as of this encounter Visit Diagnoses Diagnosis Atrial Fibrillation Paroxysmal (HCC)- Primary documented in this encounter Additional Health Concerns Infection Onset Date Last Indicated Resolved Time COVID19 11/26/2023 11/26/2023 Assessment Noted Time PHQ-9 Depression Total Score: 9 02/23/20 23 7:41 PM MINE DEPUTY documented as of this encounter Care Teams Food And Beverage 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 Relationship Specialty Start Date End Date Patrick Erickson D.O. [address] [place] [phone] PCP - General Internal Medicine 08/12/22 documented as of this encounter
--- OUTSIDE RECORDS SUMMARY | 2023-12-08 10:10 | XMS_ITS | Encounter Summary ---
Author Organization [facility] Address [address] [place] [address] Care Team Providers Care Book Canvasser Name Role Phone Patrick Erickson D.O. Primary Care Provider +1- [phone] Encounter Details Date Type Department Care Team (Latest Contact Info) Description 12/03/2023 2:50 PM CDT - 12/03/2023 11:59 PM CDT Hospital Encounter Department of Laboratory Medicine in [place] [address] [place] [phone] Patrick Erickson D.O. 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 More than 4 times per year 05/30/2022 Do you belong to any clubs o r organizations such as yazidism groups, unions, fraternal or athletic groups, or [...] Date Recorded PHQ-2 Score 0 04/27/2023 [facility] of Occupat ional Health - Occupational Stress [...] your living situation today? I have a [facility] place to live 07/01/2023 Education [...] FOR WEIGHT GAIN/EDEMA 100 tablet 3 04/28/2023 lisinopriL (PRINIVIL,ZESTRIL) 40 mg tablet take 1 tablet every day 90 tablet 3 04/21/2023 ychjwud-nons-yqnwt-o reg-capryl 100 mg-150 mg- 50 mg-150 mg capsule Take by mouth 3 (three) times a day. ibuprofen (ADVIL,MOTRIN) 200 mg tablet Take by mouth every 6 (six) hours as needed. 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 15 tablet 08/24/2023 12/06/2023 warfarin (JANTOVEN) 5 mg tabletIndications:Hy pertensive Heart With Heart Failure And Chronic Kidney Disease (CKD) Stage 3a Glomerular Filtration Rate (GFR) 45 To 59 (HCC),Hyperlipidemia On Treatment,Atrial Fibrillation Paroxysmal (HCC),Monitoring For Therapeutic Drug Therapy,Senior Living (Current) Anticoagulant Treatment Please take as directed by your Anticoagulation Clinic. 120 tablet 3 08/24/2023 12/06/2023 documented as of this encounter Plan of Treatment Upcoming Encounters Date Type Department Care Team (Latest Contact Info) Description 12/13/2023 11:50 AM CDT Appointment Department of Laboratory Medicine in [address] [phone] Patrick Erickson D.O. [address] [place] [address] 12/13/2023 12:30 PM CDT Anticoagulation Visit Department of Anticoagulation in [place], [place] [address] [place] [address] Soheila Zapata P.A.-C., M.S. [address] [address] 12/24/2023 10:10 AM CDT Appointment Department of Laboratory Medicine in [place], [place] [address] [place] [phone] Patrick Erickson D.O. [address] [phone] 12/28/2023 1:00 PM CDT Office Visit Department of Internal Medicine in [place], [place] [address] [place] [address] Patrick Erickson D.O. [address] [phone] documented as of this encounter Procedures Procedure [...] (HCC) Monitoring For Therapeutic Drug Therapy Senior Living [...] D.O. LAB BLOOD ADD-ON Performing Organization Address [facility]/ZIP Co de Phone Number [facility] [address] [place] [address], [place] OWAT [facility] in [place] [address] [place] [address] * (ABNORMAL) INR Reflex, POCT, Blood (12/03/2023 2:57 PM CDT) INR Reflex, POCT, B 5.3(CH) 12/03/2023 2:56 PM CDT [id number] Comment: ----ADDITIONAL INFORMATION---- Standard intensity warfarin therapeutic range: 2.0 to 3.0 ?? High intensity warfarin therapeutic range: 2.5 to 3.5 Blood (Blood, Capillary) 12/03/2023 2:57 PM CDT 12/03/2023 2:56 PM CDT Patrick Erickson D.O. 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 [address] [place] [address] PCP - General Internal Medicine 08/12/22 documented as of this encounter
--- OUTSIDE RECORDS SUMMARY | 2023-12-08 10:10 | XMS_ITS | Encounter Summary ---
Author Organization [facility] Address [address] [place] [address] Care Team Providers Care Business Banking Officer Name Role Phone Patrick Erickson D.O. Primary Care Provider +1- [phone] Reason for Visit * Reason Onset Date Comments Anticoagulation 12/06/2023 INR - ordered by provider Encounter Details Date Type Department Care Team (Latest Contact Info) Description 12/06/2023 Clinical Communication Department of Anticoagulation in [place], [place] [address] [place] [address] Isa Callahan, R.N. Anticoagulation (INR - ordered by provider ) Social History Tobacco Use Types Packs/Day Years Used Date Smoking Tobacco: Never Smokeless Tobacco: Never Alcohol Use Standard Drinks/Week Comments No 0 (1 standard drink = 0.6 oz pur e alcohol) [facility] Utilities Answer Date Recorded In the past 12 months has e [employer], gas, oil, or water [employer] threatened to shut off services in your [...] How often do you attend chur or quaker services? More than 4 times per year [...] Answer Date Recorded PHQ-2 Score 0 04/27/2023 [facility] of Occupat ional Health - Occupational Stress [...] your living situation today? I have a [facility] place to live 07/01/2023 Education [...] encounter Miscellaneous Notes * Telephone Encounter - Jacquelyn Espinosa, Pharm.D., ARPAN, R.Ph. - 12/06/2023 12:55 PM CDT Noted * Telephone Encounter - Isa Callahan R.N. - 12/06/2023 12:15 PM CDT Information Discussed Patient is holding warfarin for upcoming procedure. Sht states at her preop HX and physical an INR was obtained with a result of 2.2. PLAN Disposition/Recommendation: Sent to PharmD for FYI- Patient tis currently holding so no change to plan Information/Education: patient/caller able to teach back Caller agreeable to plan of care: yes The following references were used: other Next INR 12/13/23 as previously scheduled per periprocedural plan. documented in this encounter Plan of Treatment Upcoming Encounters Date Type Department Care Team (Latest Contact Info) Description 12/13/2023 11:50 AM CDT Appointment Department of Laboratory Medicine in [place], [place] [address] [place] [phone] Patrick Erickson D.O. [address] [address] 12/13/2023 12:30 PM CDT Anticoagulation Visit Department of Anticoagulation in [place], [place] [address] [place] [address] Soheila Zapata P.A.-C., M.S. [address] [place] [address] 12/24/2023 10:10 AM CDT Appointment Department of Laboratory Medicine in [place], [place] [address] [place] [phone] Patrick Erickson D.O. [address] [place] [phone] 12/28/2023 1:00 PM CDT Office Visit Department of Internal Medicine in [place], [place] [address] [place] [address] Patrick Erickson D.O. 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 [address] [phone] PCP - General Internal Medicine 08/12/22 documented as of this encounter
--- OUTSIDE RECORDS SUMMARY | 2023-12-08 10:10 | XMS_ITS | Encounter Summary ---
Author Organization [facility] Address [address] [place] [address] Care Team Providers Care Glass Fitter Name Role Phone Patrick Erickson D.O. Primary Care Provider +1- [phone] Reason for Visit * Reason Onset Date Comments COVID Treatment Review 11/29/2023 Encounter Details Date Type Department Care Team (Latest Contact Info) Description 11/29/2023 Clinical Communication Department of Family Medicine, [address] [address] Butch Sanchez, R.N. COVID Treatment Review Social History Tobacco Use Types Packs/Day Years Used Date Smoking Tobacco: Never Smokeless Tobacco: Never Alcohol Use Standard Drinks/Week Comments No 0 (1 standard drink = 0.6 oz pur e alcohol) [facility] Utilities Answer Date Recorded In the past 12 months has [facility] [employer], gas, oil, or water [employer] threatened to shut off services in your [...] often do you attend chur ch or worship services? More than 4 times per year [...] Answer Date Recorded PHQ-2 Score 0 04/27/2023 [facility] of Occupat ional Health - Occupational Stress [...] your living situation today? I have a [facility] place to live 07/01/2023 Education Answer [...] Sanchez R.NHowie - 11/29/2023 9:44 AM CDT [facility] Care Team Evaluation Reason for Call [...] Paxlovid for 5 days. Given directions to car pick up driver and start the medication within 5 days [...] provider judgement, [facility] workflow(s), guidelines, and protocols, [facility] Protocols.? . documented in this encounter Plan of Treatment Upcoming Encounters Date Type Department Care Team (Latest Contact Info) Description 12/13/2023 11:50 AM CDT Appointment Department of Laboratory Medicine in [place], [place] [address] [place] [phone] Patrick Erickson D.O. [address] [phone] 12/13/2023 12:30 PM CDT Anticoagulation Visit Department of Anticoagulation in [place], [place] [address] [place] [address] Soheila Zapata P.A.-C., M.S. [address] [phone] 12/24/2023 10:10 AM CDT Appointment Department of Laboratory Medicine in [place], [place] [address] [place] [phone] Patrick Erickson D.O. [address] [address] 12/28/2023 1:00 PM CDT Office Visit Department of Internal Medicine in [place], [place] [address] [place] [phone] Patrick Erickson D.O. [address] [address] documented as of this encounter Visit Diagnoses Not on filedocumented in this encounter Additional Health Concerns Infection Onset Date Last Indicated Resolved Time COVID19 11/26/2023 11/26/2023 Assessment Noted Time PHQ-9 Depression Total Score: 9 02/23/20 7:41 PM NEGATIVE RESTORER documented as of this encounter Care Teams Glass Fitter Relationship Specialty Start Date End Date Patrick Erickson D.O. [address] [place] [address] PCP - General Internal Medicine 08/12/22 documented as of this encounter
--- OUTSIDE RECORDS SUMMARY | 2023-12-08 10:10 | XMS_ITS | Encounter Summary ---
Author Organization [facility] Address [address] [place] [address] Care Team Providers Care Wood Boatbuilder Apprentice Name Role Phone Patrick Erickson D.O. Primary Care Provider +1- [phone] Reason for Visit * Reason Onset Date Comments Arm Injury 12/01/2023 Post Ed Visit Follow-up 12/01/2023 Encounter Details Date Type Department Care Team (Latest Contact Info) Description 12/01/2023 Clinical Communication Department of Orthopedic Surgery in [place], [place] [address] [address] Sher Bauman M.D. [address] [place] [phone] Arm Injury; Post Ed Visit Follow-up Social History Tobacco Use Types Packs/Day Years Used Date Smoking Tobacco: Never Smokeless Tobacco: Never Alcohol Use Standard Drinks/Week Comments No 0 (1 standard drink = 0.6 oz pur e alcohol) [facility] Utilities Answer Date Recorded In [...] How often do you attend chur or congregation services? More than 4 times [...] Answer Date Recorded PHQ-2 Score 0 04/27/2023 [facility] of Occupat ional Health - Occupational [...] workand was taken by ambulance to the [facility]. Patient states she followed up with [facility] and is preparing for surgery either on Wednesday or Wednesday next week. Patient states she broke the bone in her upper left arm and is needing a plate. Discussed if patient is requesting to follow up at [facility] instead of [facility]. Patient states since this is a work comp claim, she will continue to follow up with [facility]. Patient will have [facility] send all medical records to [facility] since her primary care provider is in [place]. * Telephone Encounter - Nancy Garrison L.P.N. - 12/02/2023 9:23 AM CDT Left message to call clinic back with daughter Cherie. No release on file. No ER records viewablein system. documented in this encounter Plan of Treatment Upcoming Encounters Date Type Department Care Team (Latest Contact Info) Description 12/13/2023 11:50 AM CDT Appointment Department of Laboratory Medicine in [place], [place] [address] [place] [address] Patrick Erickson D.O. [address] [place] [phone] 12/13/2023 12:30 PM CDT Anticoagulation Visit Department of Anticoagulation in [place], [place] [address] [place] [address] Soheila Zapata P.A.-C., M.S. [address] [place] [phone] 12/24/2023 10:10 AM CDT Appointment Department of Laboratory Medicine in [place], [place] [address] [place] [address] Patrick Erickson D.O. [address] [place] [phone] 12/28/2023 1:00 PM CDT Office Visit Department of Internal Medicine in [place], [place] [address] [phone] Patrick Erickson D.O. 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 [address] [phone] PCP - General Internal Medicine 08/12/22 documented as of this encounter
--- OUTSIDE RECORDS SUMMARY | 2023-12-08 10:10 | XMS_ITS | Encounter Summary ---
Author Organization [facility] Address [address] [place] [address] Care Team Providers Care Automotive Sales Associate Name Role Phone Patrick Erickson D.O. Primary Care Provider +1- [phone] Reason for Visit * Outpatient (Routine) - Authorized Specialty Diagnoses / Procedures Referred By Prosper t Referred To Contact Anticoagulation Soheila Zapata P.A.-C., M.S. [address] [address] [facility] Referral ID Status Reason Start Date Expiration Date V isits Requested Visits Authorized [id number] Authorized 01/07/2022 01/06/2025 300 300 Encounter Details Date Type Department Care Team (Latest Contact Info) Description 12/03/2023 3:50 PM CDT Anticoagulation Visit Department of Anticoagulation in [place], [place] [address] [place] [address] Soheila Zapata P.A.-C., M.S. [address] [address] Atrial Fibrillation Paroxysmal (HCC) (Primary Dx); 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 Or Unspecified Chronic Kidney Disease (HCC); Hyperlipidemia On Treatment; Monitoring For Therapeutic Drug Therapy; Nursing Home (Current) Anticoagulant Treatment Social History Tobacco Use Types Packs/Day Years Used Date Smoking Tobacco: Never Smokeless Tobacco: Never Alcohol Use Standard Drinks/Week Comments No 0 (1 standard drink = 0.6 oz pur e alcohol) [facility] Utilities Answer Date Recorded In [...] often do you attend chur ch or jainism services? More than 4 times per year 05/30/2022 Do you belong to any clubs o r organizations such as caodaism groups, unions, fraternal or athletic groups, or [...] Answer Date Recorded PHQ-2 Score 0 04/27/2023 [facility] [place] of Occupat [facility] - Occupational Stress Questionnaire Answer Date [...] living situation today? I have a [facility] place to live 07/01/2023 Education [...] please call Primary Care Anticoagulation Program at [phone] from 7:30 am to 4:30 pm. Wednesday-Wednesday [...] if you start any herbal or other pfjl-mgs-djparpy product (check with your doctor, a nurse, [...] Appointment Department of Laboratory Medicine in [address] [phone] Patrick Erickson D.O. [address] [place] [phone] 12/13/2023 12:30 PM CDT Anticoagulation Visit Department of Anticoagulation in [place], [place] [address] [place] [address] Soheila Zapata P.A.-C., M.S. [address] [place] [phone] 12/24/2023 10:10 AM CDT Appointment Department of Laboratory Medicine in [address] [phone] Patrick Erickson D.O. [address] [phone] 12/28/2023 1:00 PM CDT Office Visit Department of Internal Medicine in [place], [place] [address] [address] Patrick Erickson D.O. 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 [address] [phone] PCP - General Internal Medicine 08/12/22 documented as of this encounter
--- OUTSIDE RECORDS SUMMARY | 2023-12-08 10:11 | XMS_ITS | Encounter Summary ---
Author Organization [facility] Address [address] [place] [address] Care Team Providers Care Vp Platforms Name Role Phone Patrick Erickson D.O. Primary Care Provider +1- [phone] Reason for Visit * Outpatient (Routine) - Authorized Specialty Diagnoses / Procedures Referred By Prosper t Referred To Contact Anticoagulation Soheila Zapata P.A.-C., M.S. [address] [address] [facility] Referral ID Status Reason Start Date Expiration Date V isits Requested Visits Authorized [id number] Authorized 01/07/2022 01/06/2025 300 300 Encounter Details Date Type Department Care Team (Latest Contact Info) Description 10/19/2023 10:10 AM CDT Anticoagulation Visit Department of Anticoagulation in [place], [place] [address] [place] [address] Soheila Zapata P.A.-C., M.S. [address] [phone] 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 Or Unspecified Chronic Kidney Disease (HCC) (Primary Dx); Hyperlipidemia On Treatment; Atrial Fibrillation Paroxysmal (HCC); Monitoring For Therapeutic Drug Therapy; [facility] (Current) Anticoagulant Treatment Social History Tobacco Use Types Packs/Day Years Used Date Smoking Tobacco: Never Smokeless Tobacco: Never Alcohol Use Standard Drinks/Week Comments No 0 (1 standard drink = 0.6 oz pur e alcohol) [facility] Utilities Answer Date Recorded In the [...] often do you attend chur ch or sikhism services? More than 4 times [...] Answer Date Recorded PHQ-2 Score 0 04/27/2023 [facility] [place] [facility]at [facility] [place] - Occupational Stress Questionnaire Answer Date Recorded [...] please call Primary Care Anticoagulation Program at [phone] from 7:30 am to 4:30 pm. Wednesday-Wednesday [...] if you start any herbal or other ahhm-ntc-ynyiiap product (check with your doctor, a nurse, [...] above stating consult required. Consulted Anticoagulation [facility] for plan. Currently bridging: no. INR is therapeutic/supratherapeutic. Additional dosing or follow-up information: Provider consulted: Champ Fenton- Anticoagulation [facility] Pt is on injectable anticoagulant: [...] Appointment Department of Laboratory Medicine in [address] [address] Patrick Erickson D.O. [address], [place] [address] 12/13/2023 12:30 PM CDT Anticoagulation Visit Department of Anticoagulation in [place], [place] [address] [place] [address] Soheila Zapata P.A.-C., M.S. [address] [place] [address] 12/24/2023 10:10 AM CDT Appointment Department of Laboratory Medicine in [place], [place] [address] [place] [phone] Patrick Erickson D.O. [address] [address] 12/28/2023 1:00 PM CDT Office Visit Department of Internal Medicine in [place], [place] [address], [place] [address] Patrick Erickson D.O. [address], [place] [address] documented as of this encounter [...] D.O. 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 [address] [phone] PCP - General Internal Medicine 08/12/22 documented as of this encounter
--- OUTSIDE RECORDS SUMMARY | 2023-12-08 10:11 | XMS_ITS | Encounter Summary ---
Author Organization [facility] Address [address] [place] [address] Care Team Providers Care Receivable Manager Name Role Phone Patrick Erickson D.O. Primary Care Provider +1- [phone] Encounter Details Date Type Department Care Team (Latest Contact Info) Description 11/02/2023 2:50 PM CDT - 11/02/2023 11:59 PM CDT Hospital Encounter Department of Laboratory Medicine in [place] [address] [place] [phone] Patrick Erickson D.O. 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 More than 4 times per year 05/30/2022 Do you belong to any clubs o r organizations such as taoist groups, unions, fraternal or athletic groups, or [...] Answer Date Recorded PHQ-2 Score 0 04/27/2023 [facility] [place] of Occupat ional Health - Occupational Stress [...] your living situation today? I have a [facility] place to live 07/01/2023 Education [...] tablet every day 90 tablet 3 04/21/2023 hxsrgio-vtqn-ttuse-o reg-capryl 100 mg-150 mg- 50 mg-150 mg [...] Treatment,Atrial Fibrillation Paroxysmal (HCC),Monitoring For Therapeutic Drug Therapy,Paste Mixing Supervisor (Current) Anticoagulant Treatment Please take as directed by your Anticoagulation Clinic. 15 tablet 08/24/2023 12/06/2023 warfarin (JANTOVEN) 5 mg tabletIndications:Hy pertensive Heart With Heart Failure And Chronic Kidney Disease (CKD) Stage 3a Glomerular Filtration Rate (GFR) 45 To 59 (HCC),Hyperlipidemia On Treatment,Atrial Fibrillation Paroxysmal (HCC),Monitoring For Therapeutic Drug Therapy,Fdc (Current) Anticoagulant Treatment Please take as directed by your Anticoagulation Clinic. 120 tablet 3 08/24/2023 12/06/2023 documented as of this encounter Plan of Treatment Upcoming Encounters Date Type Department Care Team (Latest Contact Info) Description 12/13/2023 11:50 AM CDT Appointment Department of Laboratory Medicine in [address] [phone] Patrick Erickson D.O. [address] [place] [address] 12/13/2023 12:30 PM CDT Anticoagulation Visit Department of Anticoagulation in [place], [place] [address] [place] [address] Soheila Zapata P.A.-C., M.S. [address] [place] [address] 12/24/2023 10:10 AM CDT Appointment Department of Laboratory Medicine in [place], [place] [address] [place] [phone] Patrick Erickson D.O. [address] [address] 12/28/2023 1:00 PM CDT Office Visit Department of Internal Medicine in [place], [place] [address] [address] Patrick Erickson D.O. 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 [address] [place] [address] PCP - General Internal Medicine 08/12/22 documented as of this encounter
--- OUTSIDE RECORDS SUMMARY | 2023-12-08 10:11 | XMS_ITS | Encounter Summary ---
Author Organization [facility] Address [address] [place] [address] Care Team Providers Care Door To Door Fundraising Collector Name Role Phone Patrick Erickson D.O. Primary Care Provider +1- [phone] Reason for Visit * Outpatient (Routine) - Authorized Specialty Diagnoses / Procedures Referred By Prosper t Referred To Contact Anticoagulation Soheila Zapata P.A.-C., M.S. [address] [address] [facility] Referral ID Status Reason Start Date Expiration Date V isits Requested Visits Authorized [id number] Authorized 01/07/2022 01/06/2025 300 300 Encounter Details Date Type Department Care Team (Latest Contact Info) Description 11/12/2023 12:30 PM CDT Anticoagulation Visit Department of Anticoagulation in [place], [place] [address] [place] [address] Soheila Zapata P.A.-C., M.S. 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 Utilities Answer Date Recorded In the [...] often do you attend chur ch or pentecostal services? More than 4 times per year 05/30/2022 Do you belong to any clubs o r organizations such as presybeterian groups, unions, fraternal or athletic groups, or [...] Date Recorded PHQ-2 Score 0 04/27/2023 [facility] [place] of Occupat [facility] - Occupational Stress Questionnaire Answer [...] living situation today? I have a [facility] place to live 07/01/2023 Education Answer Date [...] please call Primary Care Anticoagulation Program at [phone] from 7:30 am to 4:30 pm. Wednesday-Wednesday [...] if you start any herbal or other pccc-zuv-mmnieju product (check with your doctor, a nurse, [...] CDT Appointment Department of Laboratory Medicine in [address] [phone] Patrick Erickson D.O. [address] [phone] 12/13/2023 12:30 PM CDT Anticoagulation Visit Department of Anticoagulation in [place], [place] [address] [place] [address] Soheila Zapata P.A.-C., M.S. [address] [place] [address] 12/24/2023 10:10 AM CDT Appointment Department of Laboratory Medicine in [place], [place] [address] [facility] [place] [address] Patrick Erickson D.O. [address] [phone] 12/28/2023 1:00 PM CDT Office Visit Department of Internal Medicine in [place], [place] [address] [address] Patrick Erickson D.O. [address] [address] documented as of this encounter Results * [...] D.O. 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 [address] [place] [address] PCP - General Internal Medicine 08/12/22 documented as of this encounter
--- OUTSIDE RECORDS SUMMARY | 2023-12-08 10:11 | XMS_ITS | Encounter Summary ---
Author Organization [facility] Address [address] [place] [address] Care Team Providers Care Department Chair Name Role Phone Patrick Erickson D.O. Primary Care Provider +1- [phone] Reason for Visit * Reason Onset Date Comments Cough 11/27/2023 Encounter Details Date Type Department Care Team (Late st Contact Info) Description 11/27/2023 Nurse Triage Department of Internal Medicine in [place], [place] [address] [phone] Kari Olivarez, RHowieNHowie [address] [place] [address] Cough Social History Tobacco Use Types Packs/Day Years Used Date Smoking Tobacco: Never Smokeless Tobacco: Never Alcohol Use Standard Drinks/Week Comments No 0 (1 standard drink = 0.6 oz pur e alcohol) [facility] Utilities Answer Date Recorded In the past 12 months has e [employer], gas, oil, or water [employer] threatened to shut off services in your [...] any clubs o r organizations such as synagogue groups, unions, fraternal or athletic groups, or [...] Answer Date Recorded PHQ-2 Score 0 04/27/2023 [facility] of Occupat ional Health - Occupational [...] their treatment options. Patients who reside in snf facilities will be informed of their positive test results via their facility care team, portal, or US mail but will NOT be called by the [facility] Care team to discuss treatment. Patients should work with their facility care team for treatment options. - [facility] Virtual (COVID-19) Care Team * Telephone [...] your documented past medical history in the [facility] medical record. If you should develop [...] Disposition Cough Protocols used: Cough - Acute Wml-Blxrfbvhjk-OHCOG- Care Advice Patient/Caregiver understands and will follow care advice?: Yes, able to teach back Cough - Acute Qbb-Npikpqpera-YQYHS- Nurse Kari Ant Nov 27, 2023 12:50 [...] with you. * Cough drops are available ewss-six-ovwwwdt (OTC). * HOME REMEDY - HARD CANDY: Hard candy works just as well as a medicine-flavored OTC cough drops. COUGH MEDICINES: * COUGH DROPS: Jbgd-pet-ojqehyl cough drops can help a lot, especially for mild coughs. They soothean irritated throat and remove the tickle sensation in the back of the throat. Cough drops are easyto carry with you. * COUGH SYRUP WITH DEXTROMETHORPHAN: An mmxe-hbf-bqnuurd cough syrup can help your cough. The most common cough suppressant in btnc-tzt-lbmcnmn cough medicines is dextromethorphan. * HOME REMEDY - HARD CANDY: Hard candy works just as well as kyvg-rhc-mpefeok cough drops. People who have diabetes should [...] CDT Appointment Department of Laboratory Medicine in [place], [place] [address] [place] [address] Patrick Erickson D.O. [address] [place] [phone] 12/13/2023 12:30 PM CDT Anticoagulation Visit Department of Anticoagulation in [place], [place] [address] [place] [address] Soheila Zapata P.A.-C., M.S. [address] [place] [address] 12/24/2023 10:10 AM CDT Appointment Department of Laboratory Medicine in [place], [place] [address] [place] [phone] Patrick Erickson D.O. [address] [phone] 12/28/2023 1:00 PM CDT Office Visit Department of Internal Medicine in [place], [place] [address] [place] [address] Patrick Erickson D.O. [address] [address] documented as of this encounter Procedures Procedure Name Priority Date/Time Associated Diagnosis Comments EXTM HOME SARS CORONAVIRUS-2 (COVID-19) ANTIGEN, V Routine 11/26/2023 6:00 PM CDT documented in this encounter Results * (ABNORMAL) EXT Home SARS Coronavirus-2 (COVID-19) Antigen (11/26/2023 6:00 PM CDT) EXT Home SARS-CoV-2 Antigen Presumptive Positive(A) Presumptive Negative OTHER (SPECIFY IN SENIOR CASE MANAGER) Swab 11/26/2023 6:00 PM CDT Historical Provider LAB MICROBIOLOGY - G ENERAL ORDERABLES OTHER (SPECIFY IN SENIOR CASE MANAGER) N/A documented in this encounter Visit Diagnoses Not on filedocumented in this encounter Additional Health Concerns Infection Onset Date Last Indicated Resolved Time COVID19 11/26/2023 11/26/2023 Assessment Noted Time PHQ-9 Depression Total Score: 9 02/23/20 7:41 PM COLD WORKING INSPECTOR documented as of this encounter Care Teams Department Chair Relationship Specialty Start Date End Date Patrick Erickson D.O. [address] [place] [address] PCP - General Internal Medicine 08/12/22 documented as of this encounter
--- OUTSIDE RECORDS SUMMARY | 2023-12-08 10:11 | XMS_ITS | Encounter Summary ---
Author Organization [facility] Address [address] [place] [address] Care Team Providers Care Agile Scrum Master Name Role Phone Patrick Erickson D.O. Primary Care Provider +1- [phone] Reason for Visit * Outpatient (Routine) - Authorized Specialty Diagnoses / Procedures Referred By Prosper t Referred To Contact Anticoagulation Soheila Zapata P.A.-C., M.S. [address] [address] [facility] Referral ID Status Reason Start Date Expiration Date V isits Requested Visits Authorized [id number] Authorized 01/07/2022 01/06/2025 300 300 Encounter Details Date Type Department Care Team (Latest Contact Info) Description 10/28/2023 3:30 PM CDT Anticoagulation Visit Department of Anticoagulation in [place], [place] [address] [place] [address] Soheila Zapata P.A.-C., M.S. 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 More than 4 times per year [...] Answer Date Recorded PHQ-2 Score 0 04/27/2023 [facility] of Occupat [facility] - Occupational Stress Questionnaire Answer Date [...] your living situation today? I have a [facility] place to live 07/01/2023 Education Answer [...] please call Primary Care Anticoagulation Program at [phone] from 7:30 am to 4:30 pm. Wednesday-Wednesday [...] if you start any herbal or other jfoq-rhj-iqhitax product (check with your doctor, a nurse, [...] Appointment Department of Laboratory Medicine in [address] [address] Patrick Erickson D.O. [address] [place] [address] 12/13/2023 12:30 PM CDT Anticoagulation Visit Department of Anticoagulation in [place], [place] [address] [place] [address] Soheila Zapata P.A.-C., M.S. [address] [place] [phone] 12/24/2023 10:10 AM CDT Appointment Department of Laboratory Medicine in [place], [place] [address] [place] [address] Patrick Erickson D.O. [address] [address] 12/28/2023 1:00 PM CDT Office Visit Department of Internal Medicine in [place], [place] [address] [place] [address] Patrick Erickson D.O. [address] [place] [address] documented as of this encounter Results * [...] D.O. LAB POCT ORDERABLE S - DEVICE [facility] [address] [place] [address], [facility] [address] 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 [address] [address] PCP - General Internal Medicine 08/12/22 documented as of this encounter
--- OUTSIDE RECORDS SUMMARY | 2023-12-08 10:11 | XMS_ITS | Encounter Summary ---
Author Organization [facility] Address [address] [place] [address] Care Team Providers Care Scrap Bunch Maker Name Role Phone Patrick Erickson D.O. Primary Care Provider +1- [phone] Reason for Visit * Outpatient (Routine) - Authorized Specialty Diagnoses / Procedures Referred By Prosper t Referred To Contact Anticoagulation Soheila Zapata P.A.-C., M.S. [address] [address] [facility] Referral ID Status Reason Start Date Expiration Date V isits Requested Visits Authorized [id number] Authorized 01/07/2022 01/06/2025 300 300 Encounter Details Date Type Department Care Team (Latest Contact Info) Description 11/22/2023 4:00 PM CDT Anticoagulation Visit Department of Anticoagulation in [place], [place] [address] [place] [address] Soheila Zapata P.A.-C., M.S. 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 More than 4 times per year 05/30/2022 Do you belong to any clubs o r organizations such as yarsanism groups, unions, fraternal or athletic groups, or [...] Answer Date Recorded PHQ-2 Score 0 04/27/2023 [facility] [place] of Occupat critical access hospitalal [facility] - Occupational Stress Questionnaire Answer Date [...] your living situation today? I have a [facility] place to live 07/01/2023 Education Answer Date [...] please call Primary Care Anticoagulation Program at [phone] from 7:30 am to 4:30 pm. Wednesday-Wednesday [...] if you start any herbal or other riow-xmq-eanrwci product (check with your doctor, a nurse, [...] in 7 days per consult with Anticoagulation [facility]. Pt is on injectable anticoagulant: No. Plan [...] CDT Appointment Department of Laboratory Medicine in [place], [place] [address] [place] [phone] Patrick Erickson D.O. [address] [phone] 12/13/2023 12:30 PM CDT Anticoagulation Visit Department of Anticoagulation in [place], [place] [address] [place] [address] Soheila Zapata P.A.-C., M.S. [address] [place] [address] 12/24/2023 10:10 AM CDT Appointment Department of Laboratory Medicine in [place], [place] [address] [place] [phone] Patrick Erickson D.O. [address] [phone] 12/28/2023 1:00 PM CDT Office Visit Department of Internal Medicine in [place], [place] [address] [phone] Patrick Erickson D.O. 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 [address] [place] [phone] PCP - General Internal Medicine 08/12/22 documented as of this encounter
--- OUTSIDE RECORDS SUMMARY | 2023-12-08 10:11 | XMS_ITS | Encounter Summary ---
Author Organization [facility] Address [address] [place] [address] Care Team Providers Care Water And Gas Helper Name Role Phone Patrick Erickson D.O. Primary Care Provider +1- [phone] Encounter Details Date Type Department Care Team (Latest Contact Info) Description 11/22/2023 3:20 PM CDT - 11/22/2023 11:59 PM CDT Hospital Encounter Department of Laboratory Medicine in [place] [address] [place] [phone] Patrick Erickson D.O. 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 Or Unspecified Chronic Kidney Disease (HCC); Hyperlipidemia On Treatment; Atrial Fibrillation Paroxysmal (HCC); Monitoring For Therapeutic Drug Therapy; Wait Staff (Current) Anticoagulant Treatment Discharge Disposition: Home or Self Care Social History Tobacco Use Types Packs/Day Years Used Date Smoking Tobacco: Never Smokeless Tobacco: Never Alcohol Use Standard Drinks/Week Comments No 0 (1 standard drink = 0.6 oz pur e alcohol) [facility] Utilities Answer Date Recorded In the past 12 months has th e electric, gas, oil, or water [employer] threatened to shut off services in [...] any clubs o r organizations such as christian groups, unions, fraternal or athletic groups, or [...] Answer Date Recorded PHQ-2 Score 0 04/27/2023 [facility] [place] of Occupat ional Health - Occupational Stress [...] your living situation today? I have a [facility] place to live 07/01/2023 Education Answer [...] tablet every day 90 tablet 3 04/21/2023 hltbqwm-snyw-lpnxj-o reg-capryl 100 mg-150 mg- 50 mg-150 mg [...] Treatment,Atrial Fibrillation Paroxysmal (HCC),Monitoring For Therapeutic Drug Therapy,Wait Staff (Current) Anticoagulant Treatment Please take as directed [...] CDT Appointment Department of Laboratory Medicine in [address] [phone] Patrick Erickson D.O. [address] [place] [address] 12/13/2023 12:30 PM CDT Anticoagulation Visit Department of Anticoagulation in [place], [place] [address] [place] [address] Soheila Zapata P.A.-C., M.S. 0 [place] [address] 12/24/2023 10:10 AM CDT Appointment Department of Laboratory Medicine in [place], [place] [address] [place] [phone] Patrick Erickson D.O. [address] [address] 12/28/2023 1:00 PM CDT Office Visit Department of Internal Medicine in [place], [place] [address] [place] [address] Patrick Erickson D.O. 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 [address] [place] [address] PCP - General Internal Medicine 08/12/22 documented as of this encounter
--- OUTSIDE RECORDS SUMMARY | 2023-12-08 10:11 | XMS_ITS | Encounter Summary ---
Author Organization [facility] Address [address] [place] [address] Care Team Providers Care Postal Service Clerk Name Role Phone Patrick Erickson D.O. Primary Care Provider +1- [phone] Reason for Visit * Reason Onset Date Comments Anticoagulation 11/02/2023 CCM Update-New P CP Encounter Details Date Type Department Care Team (Latest Contact Info) Description 11/02/2023 Clinical Communication Department of Anticoagulation in [place], [place] [address] [place] [address] Cullen Guillen, R.NHowie [address] [place] [phone] Anticoagulation (CCM Update-New PCP) Social History Tobacco Use Types Packs/Day Years Used Date Smoking Tobacco: Never Smokeless Tobacco: Never Alcohol Use Standard Drinks/Week Comments No 0 (1 standard drink = 0.6 oz pur e alcohol) [facility] Utilities Answer Date Recorded In the past 12 months has e [employer], gas, oil, or water [employer] threatened to shut off services in your [...] Answer Date Recorded PHQ-2 Score 0 04/27/2023 [facility] of Occupat ional Health - Occupational [...] your living situation today? I have a [facility] place to live 07/01/2023 Education [...] and reimbursement for services provided outside of yphy-hv-njjq office visits. If you agree with this [...] CDT Appointment Department of Laboratory Medicine in [place], [place] [address] [place] [address] Patrick Erickson D.O. [address] [place] [phone] 12/13/2023 12:30 PM CDT Anticoagulation Visit Department of Anticoagulation in [place], [place] [address] [place] [address] Soheila Zapata P.A.-C., M.S. [address] [place] [address] 12/24/2023 10:10 AM CDT Appointment Department of Laboratory Medicine in [place], [place] [address] [place] [address] Patrick Erickson D.O. [address] [address] 12/28/2023 1:00 PM CDT Office Visit Department of Internal Medicine in [place], [place] [address] [address] Patrick Erickson D.O. 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 [address] [address] PCP - General Internal Medicine 08/12/22 documented as of this encounter
--- OUTSIDE RECORDS SUMMARY | 2023-12-08 10:11 | XMS_ITS | Encounter Summary ---
Author Organization [facility] Address [address] [place] [address] Care Team Providers Care Guidance And Control System Engineer Name Role Phone Patrick Erickson D.O. Primary Care Provider +1- [phone] Reason for Visit * Outpatient (Routine) - Authorized Specialty Diagnoses / Procedures Referred By Prosper t Referred To Contact Anticoagulation Soheila Zapata P.A.-C., M.S. [address] [address] [facility] Referral ID Status Reason Start Date Expiration Date V isits Requested Visits Authorized [id number] Authorized 01/07/2022 01/06/2025 300 300 Encounter Details Date Type Department Care Team (Latest Contact Info) Description 11/02/2023 3:30 PM CDT Anticoagulation Visit Department of Anticoagulation in [place], [place] [address] [place] [address] Soheila Zapata P.A.-C., M.S. 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 Or Unspecified Chronic Kidney Disease (HCC) (Primary Dx); Hyperlipidemia On Treatment; Atrial Fibrillation Paroxysmal (HCC); Monitoring For Therapeutic Drug Therapy; Halfway (Current) Anticoagulant Treatment Social History Tobacco Use Types Packs/Day Years Used Date Smoking Tobacco: Never Smokeless Tobacco: Never Alcohol Use Standard Drinks/Week Comments No 0 (1 standard drink = 0.6 oz pur e alcohol) [facility] Utilities Answer Date Recorded In the [...] any clubs o r organizations such as methodist groups, unions, fraternal or athletic groups, or [...] Answer Date Recorded PHQ-2 Score 0 04/27/2023 [facility] [place] [facility] - Occupational Stress Questionnaire Answer Date Recorded [...] your living situation today? I have a [facility] place to live 07/01/2023 Education [...] please call Primary Care Anticoagulation Program at [phone] from 7:30 am to 4:30 pm. Wednesday-Wednesday [...] if you start any herbal or other oimw-jnx-lqihxph product (check with your doctor, a nurse, [...] indicated above stating consult required. Consulted Anticoagulation [facility] for plan. Currently bridging: no. INR [...] CDT Appointment Department of Laboratory Medicine in [address] [address] Patrick Erickson D.O. [address] [place] [phone] 12/13/2023 12:30 PM CDT Anticoagulation Visit Department of Anticoagulation in [place], [place] [address] [place] [address] Soheila Zapata P.A.-C., M.S. [address] [place] [address] 12/24/2023 10:10 AM CDT Appointment Department of Laboratory Medicine in [place], [place] [address] [place] [address] Patrick Erickson D.O. [address] [place] [address] 12/28/2023 1:00 PM CDT Office Visit Department of Internal Medicine in [place], [place] [address] [place] [address] Patrick Erickson D.O. [address] [address] documented as of this encounter Results * [...] ORDERABLE S - DEVICE [facility] [address] [place] [address], 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 [address] [address] PCP - General Internal Medicine 08/12/22 documented as of this encounter
--- OUTSIDE RECORDS SUMMARY | 2023-12-08 10:11 | XMS_ITS | Encounter Summary ---
Author Organization [facility] Address [address] [place] [address] Care Team Providers Care Ore Sampler Name Role Phone Patrick Erickson D.O. Primary Care Provider +1- [phone] Encounter Details Date Type Department Care Team (Latest Contact Info) Description 10/28/2023 2:50 PM CDT - 10/28/2023 11:59 PM CDT Hospital Encounter Department of Laboratory Medicine in [place] [address] [place] [address] Patrick Erickson D.O. 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 Or Unspecified Chronic Kidney Disease (HCC); Hyperlipidemia On Treatment; Atrial Fibrillation Paroxysmal (HCC); Monitoring For Therapeutic Drug Therapy; Associate Dean Of Women (Current) Anticoagulant Treatment Discharge Disposition: Home or Self Care Social History Tobacco Use Types Packs/Day Years Used Date Smoking Tobacco: Never Smokeless Tobacco: Never Alcohol Use Standard Drinks/Week Comments No 0 (1 standard drink = 0.6 oz pur e alcohol) [facility] Utilities Answer Date Recorded In the past 12 months has th e electric, gas, oil, or water [employer] threatened to shut off services in your [...] often do you attend chur ch or rastafarian services? More than 4 times per year 05/30/2022 Do you belong to any clubs o r organizations such as anglican groups, unions, fraternal or athletic groups, or [...] Answer Date Recorded PHQ-2 Score 0 04/27/2023 [facility] [place] of Occupat ional Health - Occupational Stress [...] living situation today? I have a [facility] place to live 07/01/2023 Education [...] tablet every day 90 tablet 3 04/21/2023 mftubmm-sbfk-avmdt-o reg-capryl 100 mg-150 mg- 50 mg-150 mg [...] Treatment,Atrial Fibrillation Paroxysmal (HCC),Monitoring For Therapeutic Drug Therapy,Associate Dean Of Women (Current) Anticoagulant Treatment Please take as directed by your Anticoagulation Clinic. 15 tablet 08/24/2023 12/06/2023 warfarin (JANTOVEN) 5 mg tabletIndications:Hy pertensive Heart With Heart Failure And Chronic Kidney Disease (CKD) Stage 3a Glomerular Filtration Rate (GFR) 45 To 59 (HCC),Hyperlipidemia On Treatment,Atrial Fibrillation Paroxysmal (HCC),Monitoring For Therapeutic Drug Therapy,Alf (Current) Anticoagulant Treatment Please take as directed by your Anticoagulation Clinic. 120 tablet 3 08/24/2023 12/06/2023 documented as of this encounter Plan of Treatment Upcoming Encounters Date Type Department Care Team (Latest Contact Info) Description 12/13/2023 11:50 AM CDT Appointment Department of Laboratory Medicine in [address] [phone] Patrick Erickson D.O. [address] [place] [address] 12/13/2023 12:30 PM CDT Anticoagulation Visit Department of Anticoagulation in [place], [place] [address] [place] [address] Soheila Zapata P.A.-C., M.S. [address] [place] [address] 12/24/2023 10:10 AM CDT Appointment Department of Laboratory Medicine in [place], [place] [address] [place] [address] Patrick Erickson D.O. [address] [address] 12/28/2023 1:00 PM CDT Office Visit Department of Internal Medicine in [place], [place] [address] [address] Patrick Erickson D.O. 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 [address] [place] [address] PCP - General Internal Medicine 08/12/22 documented as of this encounter
--- OUTSIDE RECORDS SUMMARY | 2023-12-08 10:11 | XMS_ITS | Encounter Summary ---
Author Organization [facility] Address [address] [place] [address] Care Team Providers Care Polysomnographic Technologist Name Role Phone Patrick Erickson D.O. Primary Care Provider +1- [phone] Reason for Referral * Outpatient (Routine) - Authorized Specialty Diagnoses / Procedures Referred By Prosper t Referred To Contact Patrick Erickson D.O. [address] [place] [address] [facility] Referral ID Status Reason Start Date Expiration Date V isits Requested Visits Authorized [id number] Authorized 11/09/2023 05/10/2025 1 1 Scheduling Instructions Nurse AWV Do not schedule prior to due date to ensure insurance coverage Visit: Medicare Annual Wellness Never done. Encounter Details Date Type Department Care Team (Late st Contact Info) Description 11/09/2023 Orders Only [facility] PCP [facility] MNT Patrick Erickson D.O. [address], [place] [address] Social History Tobacco Use Types Packs/Day Years Used Date Smoking Tobacco: Never Smokeless Tobacco: Never Alcohol Use Standard Drinks/Week Comments No 0 (1 standard drink = 0.6 oz pur e alcohol) [facility] Utilities Answer Date Recorded In the past 12 months has th e [employer], gas, oil, or water [employer] threatened to shut off services in your [...] often do you attend chur ch or islam services? More than 4 times per year [...] Answer Date Recorded PHQ-2 Score 0 04/27/2023 [facility] [place] of Occupat ional Health - Occupational Stress [...] your living situation today? I have a [facility] place to live 07/01/2023 Education [...] CDT Appointment Department of Laboratory Medicine in [place], [place] [address] [place] [address] Patrick Erickson D.O. [address] [phone] 12/13/2023 12:30 PM CDT Anticoagulation Visit Department of Anticoagulation in [place], [place] [address] [place] [address] Soheila Zapata P.A.-C., M.S. [address] [phone] 12/24/2023 10:10 AM CDT Appointment Department of Laboratory Medicine in [place], [place] [address] [place] [address] Patrick Erickson D.O. [address] [address] 12/28/2023 1:00 PM CDT Office Visit Department of Internal Medicine in [place], [place] [address] [place] [address] Patrick Erickson D.O. 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 [address] [place] [address] PCP - General Internal Medicine 08/12/22 documented as of this encounter
--- OUTSIDE RECORDS SUMMARY | 2023-12-08 10:11 | XMS_ITS | Encounter Summary ---
Author Organization [facility] Address [address] [place] [address] Care Team Providers Care Rope Coiling Machine Operator Name Role Phone Patrick Erickson D.O. Primary Care Provider +1- [phone] Encounter Details Date Type Department Care Team (Latest Contact Info) Description 11/12/2023 11:50 AM CDT - 11/12/2023 11:59 PM CDT Hospital Encounter Department of Laboratory Medicine in [place] [address] [place] [address] Patrick Erickson D.O. [address] [place] [address] Atrial Fibrillation Paroxysmal (HCC); Monitoring For Therapeutic Drug Therapy; [facility] (Current) Anticoagulant Treatment Discharge Disposition: Home or Self Care Social History Tobacco Use Types Packs/Day Years Used Date Smoking Tobacco: Never Smokeless Tobacco: Never Alcohol Use Standard Drinks/Week Comments No 0 (1 standard drink = 0.6 oz pur e alcohol) [facility] Utilities Answer Date Recorded In the past 12 months has e [employer], gas, oil, or water [employer] threatened to shut off services in your [...] How often do you attend chur or jew services? More than 4 times per year 05/30/2022 Do you belong to any clubs o r organizations such as congregation groups, unions, fraternal or athletic groups, or [...] Answer Date Recorded PHQ-2 Score 0 04/27/2023 [facility] [place] of Occupat ional Health - Occupational Stress [...] your living situation today? I have a [facility] place to live 07/01/2023 Education Answer [...] tablet every day 90 tablet 3 04/21/2023 aghlmht-mxlc-pzjvz-o reg-capryl 100 mg-150 mg- 50 mg-150 mg [...] CDT Appointment Department of Laboratory Medicine in [address] [place] [phone] Patrick Erickson D.O. [address] [place] [phone] 12/13/2023 12:30 PM CDT Anticoagulation Visit Department of Anticoagulation in [place], [place] [address] [place] [address] Soheila Zapata P.A.-C., M.S. [address], [place] [address] 12/24/2023 10:10 AM CDT Appointment Department of Laboratory Medicine in [place], [place] [address] [place] [address] Patrick Erickson D.O. [address], [place] [address] 12/28/2023 1:00 PM CDT Office Visit Department of Internal Medicine in [place], [place] [address], [place] [address] Patrick Erickson D.O. 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 [address] [place] [address] PCP - General Internal Medicine 08/12/22 documented as of this encounter
--- OUTSIDE RECORDS SUMMARY | 2023-12-08 10:12 | XMS_ITS | Encounter Summary ---
Author Organization [facility] Address [address] [place] [address] Care Team Providers Care Job Cost Estimator Name Role Phone Patrick Erickson D.O. Primary Care Provider +1- [phone] Reason for Visit * Outpatient (Routine) - Authorized Specialty Diagnoses / Procedures Referred By Prosper t Referred To Contact Anticoagulation Soheila Zapata P.A.-C., M.S. [address] [address] [facility] Referral ID Status Reason Start Date Expiration Date V isits Requested Visits Authorized [id number] Authorized 01/07/2022 01/06/2025 300 300 Encounter Details Date Type Department Care Team (Latest Contact Info) Description 10/04/2023 3:50 PM CDT Anticoagulation Visit Department of Anticoagulation in [place], [place] [address] [place] [address] Soheila Zapata P.A.-C., M.S. 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 Or Unspecified Chronic Kidney Disease (HCC); Hyperlipidemia On Treatment; Monitoring For Therapeutic Drug Therapy; Retirement (Current) Anticoagulant Treatment Social History Tobacco Use Types Packs/Day Years Used Date Smoking Tobacco: Never Smokeless Tobacco: Never Alcohol Use Standard Drinks/Week Comments No 0 (1 standard drink = 0.6 oz pur e alcohol) [facility] Utilities Answer Date Recorded In [...] Answer Date Recorded PHQ-2 Score 0 04/27/2023 [facility] [place] of Occupat [facility] - Occupational Stress Questionnaire Answer [...] please call Primary Care Anticoagulation Program at [phone] from 7:30 am to 4:30 pm. Wednesday-Wednesday [...] if you start any herbal or other dppw-qur-fgbhvga product (check with your doctor, a nurse, [...] in 3 days per consult with Anticoagulation [facility]. Pt is on injectable anticoagulant: No. Plan [...] CDT Appointment Department of Laboratory Medicine in [address] [place] [address] Patrick Erickson D.O. [address] [phone] 12/13/2023 12:30 PM CDT Anticoagulation Visit Department of Anticoagulation in [place], [place] [address] [place] [address] Soheila Zapata P.A.-C., M.S. [address], [place] [phone] 12/24/2023 10:10 AM CDT Appointment Department of Laboratory Medicine in [place], [place] 300 [place] [address] Patrick Erickson D.O. [address] [place] [address] 12/28/2023 1:00 PM CDT Office Visit Department of Internal Medicine in [place], [place] [address] [place] [address] Patrick Erickson D.O. [address] [phone] documented as of this encounter Results * [...] D.O. LAB POCT ORDERABLE S - DEVICE [facility] [address] [place] [address], [facility] FB60 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 [address] [place] [address] PCP - General Internal Medicine 08/12/22 documented as of this encounter
--- OUTSIDE RECORDS SUMMARY | 2023-12-08 10:12 | XMS_ITS | Encounter Summary ---
Author Organization [facility] Address [address] [place] [address] Care Team Providers Care Metal Numerical Control Programmer Name Role Phone Patrick Erickson D.O. Primary Care Provider +1- [phone] Encounter Details Date Type Department Care Team (Latest Contact Info) Description 09/21/2023 11:55 AM CDT - 09/21/2023 11:59 PM CDT Hospital Encounter Department of Laboratory Medicine in [place] [address] [place] [address] Patrick Erickson D.O. [address] [place] [address] Hypertensive Heart With Heart Failure And Chronic [...] drink = 0.6 oz pur e alcohol) [facility] Utilities Answer Date Recorded In the past 12 months has th e electric, gas, oil, or water [employer] threatened to shut off services in your [...] often do you attend chur ch or taoism services? More than 4 times per year 05/30/2022 Do you belong to any clubs o r organizations such as spiritism groups, unions, fraternal or athletic groups, or [...] Answer Date Recorded PHQ-2 Score 0 04/27/2023 [facility] [place] of Occupat ional Health - Occupational Stress [...] your living situation today? 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 120 tablet 3 08/24/2023 12/06/2023 documented as of this encounter Plan of Treatment Upcoming Encounters Date Type Department Care Team (Latest Contact Info) Description 12/13/2023 11:50 AM CDT Appointment Department of Laboratory Medicine in [address] [phone] Patrick Erickson D.O. [address] [place] [address] 12/13/2023 12:30 PM CDT Anticoagulation Visit Department of Anticoagulation in [place], [place] [address] [place] [address] Soheila Zapata P.A.-C., M.S. [address] [place] [address] 12/24/2023 10:10 AM CDT Appointment Department of Laboratory Medicine in [place], [place] [address] [place] [address] Patrick Erickson D.O. [address] [address] 12/28/2023 1:00 PM CDT Office Visit Department of Internal Medicine in [place], [place] [address] [place] [address] Patrick Erickson D.O. [address] [address] documented as of this encounter Procedures Procedure [...] Paroxysmal (HCC) Monitoring For Therapeutic Drug Therapy Museum Host/Hostess (Current) Anticoagulant Treatment documented in this encounter [...] D.O. LAB BLOOD ADD-ON Performing Organization Address [facility]/ZIP Co de Phone Number [facility] [address] [place] [address], [place] OWAT [facility] in [place] [address] [place] [address] * (ABNORMAL) INR Reflex, POCT, Blood (09/21/2023 12:39 PM CDT) INR Reflex, POCT, B 5.4(CH) 09/21/2023 12:38 PM CDT FB60 Comment: ----ADDITIONAL INFORMATION---- Standard intensity warfarin therapeutic range: 2.0 to 3.0 ?? High intensity warfarin therapeutic range: 2.5 to 3.5 Blood (Blood, Capillary) 09/21/2023 12:39 PM CDT 09/21/2023 12:38 PM CDT Patrick Erickson D.O. 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 [address], [place] [phone] PCP - General Internal Medicine 08/12/22 documented as of this encounter
--- OUTSIDE RECORDS SUMMARY | 2023-12-08 10:12 | XMS_ITS | Encounter Summary ---
Author Organization [facility] Address [address] [place] [address] Care Team Providers Care Horser Up Name Role Phone Patrick Erickson D.O. Primary Care Provider +1- [phone] Reason for Visit * Outpatient (Routine) - Authorized Specialty Diagnoses / Procedures Referred By Prosper t Referred To Contact Anticoagulation Soheila Zapata P.A.-C., M.S. [address] [address] [facility] Referral ID Status Reason Start Date Expiration Date V isits Requested Visits Authorized [id number] Authorized 01/07/2022 01/06/2025 300 300 Encounter Details Date Type Department Care Team (Latest Contact Info) Description 10/08/2023 9:30 AM CDT Anticoagulation Visit Department of Anticoagulation in [place], [place] [address] [place] [address] Soheila Zapata P.A.-C., M.S. [address] [address] 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 Or Unspecified Chronic Kidney Disease (HCC) (Primary Dx); Hyperlipidemia On Treatment; Atrial Fibrillation Paroxysmal (HCC); Monitoring For Therapeutic Drug Therapy; Fdc (Current) Anticoagulant Treatment Social History Tobacco Use Types Packs/Day Years Used Date Smoking Tobacco: Never Smokeless Tobacco: Never Alcohol Use Standard Drinks/Week Comments No 0 (1 standard drink = 0.6 oz pur e alcohol) [facility] Utilities Answer Date Recorded In [...] often do you attend chur ch or restoration services? More than 4 times per year [...] Answer Date Recorded PHQ-2 Score 0 04/27/2023 [facility] [place] [facility] - Occupational Stress Questionnaire Answer Date Recorded [...] please call Primary Care Anticoagulation Program at [phone] from 7:30 am to 4:30 pm. Wednesday-Wednesday [...] if you start any herbal or other bgst-lfc-icmmchh product (check with your doctor, a nurse, [...] CDT Appointment Department of Laboratory Medicine in [place], [place] [address] [place] [phone] Patrick Erickson D.O. [address] [phone] 12/13/2023 12:30 PM CDT Anticoagulation Visit Department of Anticoagulation in [place], [place] [address] [place] [address] Soheila Zapata P.A.-C., M.S. [address] [place] [address] 12/24/2023 10:10 AM CDT Appointment Department of Laboratory Medicine in [place], [place] [address] [place] [address] Patrick Erickson D.O. [address] [place] [address] 12/28/2023 1:00 PM CDT Office Visit Department of Internal Medicine in [place], [place] [address] [place] [address] Patrick Erickson D.O. [address] [address] documented as of this encounter [...] D.O. LAB POCT ORDERABLE S - DEVICE [facility] [address] [place] [address], [facility] FB60 [facility] in [place] [address] [place] [address] documented in this encounter Visit Diagnoses Diagnosis 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 Or Unspecified Chronic Kidney Disease (HCC)- Primary Hyperlipidemia On Treatment Atrial Fibrillation Paroxysmal (HCC) Monitoring For Therapeutic Drug Therapy Camera Assembler (Current) Anticoagulant Treatment documented in this encounter Additional Health Concerns Assessment Noted Time PHQ-9 Depression Total Score: 9 02/23/20 23 7:41 PM WEAVER [employer] documented as of this encounter Care Teams Horser Up Relationship Specialty Start Date End Date Patrick Erickson D.O. [address] [place] [address] PCP - General Internal Medicine 08/12/22 documented as of this encounter
--- OUTSIDE RECORDS SUMMARY | 2023-12-08 10:12 | XMS_ITS | Encounter Summary ---
Author Organization [facility] Address [address] [place] [address] Care Team Providers Care Marketing Regional Consultant Name Role Phone Patrick Erickson D.O. Primary Care Provider +1- [phone] Encounter Details Date Type Department Care Team (Latest Contact Info) Description 09/24/2023 2:50 PM CDT - 09/24/2023 11:59 PM CDT Hospital Encounter Department of Laboratory Medicine in [place] [address] [place] [phone] Patrick Erickson D.O. 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) Anticoagulant Treatment Discharge Disposition: Home or Self Care Social History Tobacco Use Types Packs/Day Years Used Date Smoking Tobacco: Never Smokeless Tobacco: Never Alcohol Use Standard Drinks/Week Comments No 0 (1 standard drink = 0.6 oz pur e alcohol) [facility] Utilities Answer Date Recorded In the past 12 months has th e electric, gas, oil, or water [employer] threatened to shut off services in your [...] any clubs o r organizations such as christianity groups, unions, fraternal or athletic groups, or [...] Answer Date Recorded PHQ-2 Score 0 04/27/2023 [facility] [place] of Occupat ional Health - Occupational Stress [...] tablet every day 90 tablet 3 04/21/2023 gsapytp-tvjq-gqicp-o reg-capryl 100 mg-150 mg- 50 mg-150 mg [...] Treatment,Atrial Fibrillation Paroxysmal (HCC),Monitoring For Therapeutic Drug Therapy,Casting Room Helper (Current) Anticoagulant Treatment Please take as directed by your Anticoagulation Clinic. 15 tablet 08/24/2023 12/06/2023 warfarin (JANTOVEN) 5 mg tabletIndications:Hy pertensive Heart With Heart Failure And Chronic Kidney Disease (CKD) Stage 3a Glomerular Filtration Rate (GFR) 45 To 59 (HCC),Hyperlipidemia On Treatment,Atrial Fibrillation Paroxysmal (HCC),Monitoring For Therapeutic Drug Therapy,Casting Room Helper (Current) Anticoagulant Treatment Please take as directed by your Anticoagulation Clinic. 120 tablet 3 08/24/2023 12/06/2023 documented as of this encounter Plan of Treatment Upcoming Encounters Date Type Department Care Team (Latest Contact Info) Description 12/13/2023 11:50 AM CDT Appointment Department of Laboratory Medicine in [address] [phone] Patrick Erickson D.O. [address] [place] [address] 12/13/2023 12:30 PM CDT Anticoagulation Visit Department of Anticoagulation in [place], [place] [address] [place] [address] Soheila Zapata P.A.-C., M.S. 0 [place] [address] 12/24/2023 10:10 AM CDT Appointment Department of Laboratory Medicine in [place], [place] [address] [place] [address] Patrick Erickson D.O. [address] [address] 12/28/2023 1:00 PM CDT Office Visit Department of Internal Medicine in [place], [place] [address] [place] [address] Patrick Erickson D.O. 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 [address] [place] [address] PCP - General Internal Medicine 08/12/22 documented as of this encounter
--- OUTSIDE RECORDS SUMMARY | 2023-12-08 10:12 | XMS_ITS | Encounter Summary ---
Author Organization [facility] Address [address] [place] [address] Care Team Providers Care Printing Table Worker Name Role Phone Patrick Erickson D.O. Primary Care Provider +1- [phone] Reason for Visit * Outpatient (Routine) - Authorized Specialty Diagnoses / Procedures Referred By Prosper t Referred To Contact Anticoagulation Soheila Zapata P.A.-C., M.S. [address] [address] [facility] Referral ID Status Reason Start Date Expiration Date V isits Requested Visits Authorized [id number] Authorized 01/07/2022 01/06/2025 300 300 Encounter Details Date Type Department Care Team (Latest Contact Info) Description 09/24/2023 3:30 PM CDT Anticoagulation Visit Department of Anticoagulation in [place], [place] [address] [place] [address] Soheila Zapata P.A.-C., M.S. 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 Glomerular Filtration Rate (GFR) 45 To 59 (HCC) (Primary Dx); Hyperlipidemia On Treatment; Atrial Fibrillation Paroxysmal (HCC); Monitoring For Therapeutic Drug Therapy; Group Therapy Counselor (Current) Anticoagulant Treatment Social History Tobacco Use Types Packs/Day Years Used Date Smoking Tobacco: Never Smokeless Tobacco: Never Alcohol Use Standard Drinks/Week Comments No 0 (1 standard drink = 0.6 oz pur e alcohol) [facility] Utilities Answer Date Recorded In the [...] Answer Date Recorded PHQ-2 Score 0 04/27/2023 [facility] [place] of Occupat [facility] - Occupational Stress Questionnaire Answer Date [...] your living situation today? I have a [facility] place to live 07/01/2023 Education Answer [...] please call Primary Care Anticoagulation Program at [phone] from 7:30 am to 4:30 pm. Wednesday-Wednesday [...] if you start any herbal or other zdfg-blv-gctxkci product (check with your doctor, a nurse, [...] indicated above stating consult required. Consulted Anticoagulation [facility] for plan. Currently bridging: no. INR is therapeutic/supratherapeutic. Additional dosing or follow-up information: Provider consulted: Edna Sevilla- Anticoagulation [facility] Pt is on injectable anticoagulant: [...] CDT Appointment Department of Laboratory Medicine in [place], [place] [address] [place] [address] Patrick Erickson D.O. [address] [phone] 12/13/2023 12:30 PM CDT Anticoagulation Visit Department of Anticoagulation in [place], [place] [address] [place] [address] Soheila Zapata P.A.-C., M.S. [address] [address] 12/24/2023 10:10 AM CDT Appointment Department of Laboratory Medicine in [address] [address] Patrick Erickson D.O. [address] [phone] 12/28/2023 1:00 PM CDT Office Visit Department of Internal Medicine in [place], [place] [address] [address] Patrick Erickson D.O. 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 [address] [place] [address] PCP - General Internal Medicine 08/12/22 documented as of this encounter
--- OUTSIDE RECORDS SUMMARY | 2023-12-08 10:12 | XMS_ITS | Encounter Summary ---
Author Organization [facility] Address [address] [place] [address] Care Team Providers Care Cd Reactor Operator Head Name Role Phone Patrick Erickson D.O. Primary Care Provider +1- [phone] Reason for Visit * Outpatient (Routine) - Authorized Specialty Diagnoses / Procedures Referred By Prosper t Referred To Contact Anticoagulation Soheila Zapata P.A.-C., M.S. [address] [address] [facility] Referral ID Status Reason Start Date Expiration Date V isits Requested Visits Authorized [id number] Authorized 01/07/2022 01/06/2025 300 300 Encounter Details Date Type Department Care Team (Latest Contact Info) Description 09/14/2023 1:30 PM CDT Anticoagulation Visit Department of Anticoagulation in [place], [place] [address] [place] [address] Soheila Zapata P.A.-C., M.S. 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 Glomerular Filtration Rate (GFR) 45 To 59 (HCC); Hyperlipidemia On Treatment; Monitoring For Therapeutic Drug Therapy; Table Games Shift Manager (Current) Anticoagulant Treatment Social History Tobacco Use Types Packs/Day Years Used Date Smoking Tobacco: Never Smokeless Tobacco: Never Alcohol Use Standard Drinks/Week Comments No 0 (1 standard drink = 0.6 oz pur e alcohol) [facility] Utilities Answer Date Recorded [...] Answer Date Recorded PHQ-2 Score 0 04/27/2023 [facility] [place] of Occupat [facility] - Occupational Stress Questionnaire Answer Date [...] your living situation today? I have a [facility] place to live 07/01/2023 Education Answer [...] please call Primary Care Anticoagulation Program at [phone] from 7:30 am to 4:30 pm. Wednesday-Wednesday [...] if you start any herbal or other dfuv-azg-dvgnapp product (check with your doctor, a nurse, [...] consecutive INR below goal range. Consulted Anticoagulation [facility] for plan. Currently bridging: No. Provider consulted for potential bridging: Edna Sevilla-Anticoagulation [facility]. Bridging ordered: no. Next INR on 09/21/23 [...] CDT Appointment Department of Laboratory Medicine in [place], [place] [address] [place] [address] Patrick Erickson D.O. [address] [address] 12/13/2023 12:30 PM CDT Anticoagulation Visit Department of Anticoagulation in [place], [place] [address] [place] [address] Soheila Zapata P.A.-C., M.S. [address] [address] 12/24/2023 10:10 AM CDT Appointment Department of Laboratory Medicine in [place], [place] [address] [place] [address] Patrick Erickson D.O. [address] [address] 12/28/2023 1:00 PM CDT Office Visit Department of Internal Medicine in [place], [place] [address] [address] Patrick Erickson D.O. [address] [address] documented as of this encounter Results * [...] D.O. 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 [address] [place] [address] PCP - General Internal Medicine 08/12/22 documented as of this encounter
--- OUTSIDE RECORDS SUMMARY | 2023-12-08 10:12 | XMS_ITS | Encounter Summary ---
Author Organization [facility] Address [address] [place] [address] Care Team Providers Care Egg Separator Name Role Phone Patrick Erickson D.O. Primary Care Provider +1- [phone] Reason for Visit * Outpatient (Routine) - Authorized Specialty Diagnoses / Procedures Referred By Prosper t Referred To Contact Anticoagulation Soheila Zapata P.A.-C., M.S. [address] [address] [facility] Referral ID Status Reason Start Date Expiration Date V isits Requested Visits Authorized [id number] Authorized 01/07/2022 01/06/2025 300 300 Encounter Details Date Type Department Care Team (Latest Contact Info) Description 09/21/2023 1:30 PM CDT Anticoagulation Visit Department of Anticoagulation in [place], [place] [address] [place] [address] Soheila Zapata P.A.-C., M.S. 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 More than 4 times per year 05/30/2022 Do you belong to any clubs o r organizations such as latter day groups, unions, fraternal or athletic groups, or [...] Answer Date Recorded PHQ-2 Score 0 04/27/2023 [facility] [place] of [facility]at [facility] - Occupational Stress Questionnaire Answer Date [...] indicated above stating consult required. Consulted Anticoagulation [facility] for plan. Currently bridging: no. INR is therapeutic/supratherapeutic. Additional dosing or follow-up information: Next INR in 3 days per consult with Anticoagulation [facility] Pt is on injectable anticoagulant: [...] CDT Appointment Department of Laboratory Medicine in [place], [place] [address] [place] [phone] Patrick Erickson D.O. [address] [phone] 12/13/2023 12:30 PM CDT Anticoagulation Visit Department of Anticoagulation in [place], [place] [address] [place] [address] Soheila Zapata P.A.-C., M.S. [address] [place] [address] 12/24/2023 10:10 AM CDT Appointment Department of Laboratory Medicine in [place], [place] [address] [place] [phone] Patrick Erickson D.O. [address] [place] [phone] 12/28/2023 1:00 PM CDT Office Visit Department of Internal Medicine in [place], [place] [address] [place] [address] Patrick Erickson D.O. [address] [place] [phone] documented as of this encounter Results [...] D.O. 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 [address] [phone] PCP - General Internal Medicine 08/12/22 documented as of this encounter
--- OUTSIDE RECORDS SUMMARY | 2023-12-08 10:12 | XMS_ITS | Encounter Summary ---
Author Organization [facility] Address [address] [place] [address] Care Team Providers Care Recruiter Account Manager Name Role Phone Patrick Erickson D.O. Primary Care Provider +1- [phone] Reason for Visit * Reason Onset Date Comments Anticoagulation 10/01/2023 Out of range INR . Encounter Details Date Type Department Care Team (Latest Contact Info) Description 10/01/2023 Clinical Communication Department of Anticoagulation in [place], [place] [address] [place] [address] [place], RHowieNHowie Anticoagulation (Out of range INR.) Social History Tobacco Use Types Packs/Day Years Used Date Smoking Tobacco: Never Smokeless Tobacco: Never Alcohol Use Standard Drinks/Week Comments No 0 (1 standard drink = 0.6 oz pur e alcohol) [facility] Utilities Answer Date Recorded In the past 12 months has [employer], gas, oil, or water [employer] threatened to shut off services in [...] often do you attend chur ch or confucianism services? More than 4 times per year 05/30/2022 Do you belong to any clubs o r organizations such as catholic groups, unions, fraternal or athletic groups, [...] Answer Date Recorded PHQ-2 Score 0 04/27/2023 [facility] of Occupat ional Health - Occupational Stress [...] your living situation today? I have a [facility] place to live 07/01/2023 Education Answer [...] CDT Appointment Department of Laboratory Medicine in [place], [place] [address] [place] [phone] Patrick Erickson D.O. [address] [phone] 12/13/2023 12:30 PM CDT Anticoagulation Visit Department of Anticoagulation in [place], [place] [address] [place] [address] Soheila Zapata P.A.-C., M.S. [address] [phone] 12/24/2023 10:10 AM CDT Appointment Department of Laboratory Medicine in [place], [place] [address] [place] [address] Patrick Erickson D.O. [address] [phone] 12/28/2023 1:00 PM CDT Office Visit Department of Internal Medicine in [place], [place] [address] [phone] Patrick Erickson D.O. 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 [address] [address] PCP - General Internal Medicine 08/12/22 documented as of this encounter
--- OUTSIDE RECORDS SUMMARY | 2023-12-08 10:12 | XMS_ITS | Encounter Summary ---
Author Organization [facility] Address [address] [place] [address] Care Team Providers Care Oil Burner Technician Name Role Phone Patrick Erickson D.O. Primary Care Provider +1- [phone] Encounter Details Date Type Department Care Team (Latest Contact Info) Description 10/15/2023 2:50 PM CDT - 10/15/2023 11:59 PM CDT Hospital Encounter Department of Laboratory Medicine in [place] [address] [place] [phone] Patrick Erickson D.O. [address] [place] [phone] 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 Or Unspecified Chronic Kidney Disease (HCC); Hyperlipidemia On Treatment; Atrial Fibrillation Paroxysmal (HCC); Monitoring For Therapeutic Drug Therapy; Director Special Education (Current) Anticoagulant Treatment Discharge Disposition: Home or Self Care Social History Tobacco Use Types Packs/Day Years Used Date Smoking Tobacco: Never Smokeless Tobacco: Never Alcohol Use Standard Drinks/Week Comments No 0 (1 standard drink = 0.6 oz pur e alcohol) [facility] Utilities Answer Date Recorded In the past 12 months has th e electric, gas, oil, or water [employer] threatened to shut off services in your [...] Answer Date Recorded PHQ-2 Score 0 04/27/2023 [facility] [place] of Occupat ional Health - Occupational Stress [...] tablet every day 90 tablet 3 04/21/2023 zktaxvv-efrl-ednbv-o reg-capryl 100 mg-150 mg- 50 mg-150 mg [...] Fibrillation Paroxysmal (HCC),Monitoring For Therapeutic Drug Therapy,Director Special Education (Current) Anticoagulant Treatment Please take as directed by your Anticoagulation Clinic. 15 tablet 08/24/2023 12/06/2023 warfarin (JANTOVEN) 5 mg tabletIndications:Hy pertensive Heart With Heart Failure And Chronic Kidney Disease (CKD) Stage 3a Glomerular Filtration Rate (GFR) 45 To 59 (HCC),Hyperlipidemia On Treatment,Atrial Fibrillation Paroxysmal (HCC),Monitoring For Therapeutic Drug Therapy,Retirement (Current) Anticoagulant Treatment Please take as directed by your Anticoagulation Clinic. 120 tablet 3 08/24/2023 12/06/2023 documented as of this encounter Plan of Treatment Upcoming Encounters Date Type Department Care Team (Latest Contact Info) Description 12/13/2023 11:50 AM CDT Appointment Department of Laboratory Medicine in [address] [phone] Patrick Erickson D.O. [address] [place] [address] 12/13/2023 12:30 PM CDT Anticoagulation Visit Department of Anticoagulation in [place], [place] [address] [place] [address] Soheila Zapata P.A.-C., M.S. [address] [place] [address] 12/24/2023 10:10 AM CDT Appointment Department of Laboratory Medicine in [place], [place] [address] [place] [phone] Patrick Erickson D.O. [address] [address] 12/28/2023 1:00 PM CDT Office Visit Department of Internal Medicine in [place], [place] [address] [place] [address] Patrick Erickson D.O. [address] [phone] documented as of this encounter Procedures Procedure Name Priority Date/Time Associated Diagnosis Comments INR REFLEX, POCT, B Routine 10/15/2023 3:09 PM CDT 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 Or Unspecified Chronic Kidney Disease (HCC) Hyperlipidemia On Treatment Atrial Fibrillation Paroxysmal (HCC) Monitoring For Therapeutic Drug Therapy Director Special Education (Current) Anticoagulant Treatment documented in this encounter [...] D.O. LAB POCT ORDERABLE S - DEVICE [facility] [address] [place] [address], [facility] FB60 [facility] in [place] [address] [place] [address] documented in this encounter Visit Diagnoses Diagnosis 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 Or Unspecified Chronic Kidney Disease (HCC) Hyperlipidemia On Treatment Atrial Fibrillation Paroxysmal (HCC) Monitoring For Therapeutic Drug Therapy Director Special Education (Current) Anticoagulant Treatment documented in this encounter Additional Health Concerns Assessment Noted Time PHQ-9 Depression Total Score: 9 02/23/20 23 7:41 PM 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 [address] [place] [address] PCP - General Internal Medicine 08/12/22 documented as of this encounter
--- OUTSIDE RECORDS SUMMARY | 2023-12-08 10:12 | XMS_ITS | Encounter Summary ---
Author Organization [facility] Address [address] [place] [address] Care Team Providers Care Validation Leader Name Role Phone Patrick Erickson D.O. Primary Care Provider +1- [phone] Encounter Details Date Type Department Care Team (Latest Contact Info) Description 10/01/2023 2:30 PM CDT - 10/01/2023 11:59 PM CDT Hospital Encounter Department of Laboratory Medicine in [place], [place] [address] [place] [address] Patrick Erickson D.O. 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 More than 4 times per year 05/30/2022 Do you belong to any clubs o r organizations such as druze groups, unions, fraternal or athletic groups, or [...] 0 04/27/2023 [facility] [place] of Occupat ional Health - Occupational Stress [...] your living situation today? I have a [facility] place to live 07/01/2023 Education [...] tablet every day 90 tablet 3 04/21/2023 aobidho-drem-zgrhy-o reg-capryl 100 mg-150 mg- 50 mg-150 mg [...] Treatment,Atrial Fibrillation Paroxysmal (HCC),Monitoring For Therapeutic Drug Therapy,Potato Chip Processing Supervisor (Current) Anticoagulant Treatment Please take as directed by your Anticoagulation Clinic. 15 tablet 08/24/2023 12/06/2023 warfarin (JANTOVEN) 5 mg tabletIndications:Hy pertensive Heart With Heart Failure And Chronic Kidney Disease (CKD) Stage 3a Glomerular Filtration Rate (GFR) 45 To 59 (HCC),Hyperlipidemia On Treatment,Atrial Fibrillation Paroxysmal (HCC),Monitoring For Therapeutic Drug Therapy,Potato Chip Processing Supervisor (Current) Anticoagulant Treatment Please take as directed by your Anticoagulation Clinic. 120 tablet 3 08/24/2023 12/06/2023 documented as of this encounter Plan of Treatment Upcoming Encounters Date Type Department Care Team (Latest Contact Info) Description 12/13/2023 11:50 AM CDT Appointment Department of Laboratory Medicine in [address] [phone] Patrick Erickson D.O. 0 [place] [address] 12/13/2023 12:30 PM CDT Anticoagulation Visit Department of Anticoagulation in [place], [place] [address] [place] [address] Soheila Zapata P.A.-C., M.S. [address] [address] 12/24/2023 10:10 AM CDT Appointment Department of Laboratory Medicine in [place] [address] [place] [phone] Patrick Erickson D.O. [address] [address] 12/28/2023 1:00 PM CDT Office Visit Department of Internal Medicine in [place], [place] [address] [phone] Patrick Erickson D.O. [address] [phone] documented as of this encounter Procedures Procedure Name Priority Date/Time Associated Diagnosis Comments INR REFLEX, POCT, B Routine 10/01/2023 3:00 PM CDT Hypertensive Heart With Heart Failure And Chronic Kidney Disease (CKD) Stage 3a Glomerular Filtration Rate (GFR) 45 To 59 (HCC) Hyperlipidemia On Treatment Atrial Fibrillation Paroxysmal (HCC) Monitoring For Therapeutic Drug Therapy Halfway (Current) Anticoagulant Treatment documented in this encounter [...] LAB POCT ORDERABLE S - DEVICE [facility] [address] [address], [facility] in [place] [address] [place] [address] documented in this encounter Visit Diagnoses Diagnosis Hypertensive Heart With Heart Failure And Chronic Kidney Disease (CKD) Stage 3a Glomerular Filtration Rate (GFR) 45 To 59 (HCC) Hyperlipidemia On Treatment Atrial Fibrillation Paroxysmal (HCC) Monitoring For Therapeutic Drug Therapy Halfway (Current) Anticoagulant Treatment documented in this encounter Additional Health Concerns Assessment Noted Time PHQ-9 Depression Total Score: 9 02/23/20 23 7:41 PM 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 [address] [phone] PCP - General Internal Medicine 08/12/22 documented as of this encounter
--- OUTSIDE RECORDS SUMMARY | 2023-12-08 10:12 | XMS_ITS | Encounter Summary ---
Author Organization [facility] Address [address] [place] [address] Care Team Providers Care Inclinometer Tester Name Role Phone Patrick Erickson D.O. Primary Care Provider +1- [phone] Encounter Details Date Type Department Care Team (Latest Contact Info) Description 10/07/2023 2:49 PM CDT - 10/07/2023 11:59 PM CDT Hospital Encounter Department of Laboratory Medicine in [place], [place] [address] [place] [phone] Patrick Erickson D.O. [address] [place] [phone] Atrial Fibrillation Paroxysmal (HCC) Discharge Disposition: Home or Self Care Social History Tobacco Use Types Packs/Day Years Used Date Smoking Tobacco: Never Smokeless Tobacco: Never Alcohol Use Standard Drinks/Week Comments No 0 (1 standard drink = 0.6 oz pur e alcohol) [facility] Utilities Answer Date Recorded In the [...] How often do you attend chur or baptism services? More than 4 times per year [...] Answer Date Recorded PHQ-2 Score 0 04/27/2023 [facility] of Occupat ional Health [...] tablet every day 90 tablet 3 04/21/2023 nukepkt-rjvh-yazls-o reg-capryl 100 mg-150 mg- 50 mg-150 mg [...] Treatment,Atrial Fibrillation Paroxysmal (HCC),Monitoring For Therapeutic Drug Therapy,Funeral Car Driver (Current) Anticoagulant Treatment Please take as directed by your Anticoagulation Clinic. 15 tablet 08/24/2023 12/06/2023 warfarin (JANTOVEN) 5 mg tabletIndications:Hy pertensive Heart With Heart Failure And Chronic Kidney Disease (CKD) Stage 3a Glomerular Filtration Rate (GFR) 45 To 59 (HCC),Hyperlipidemia On Treatment,Atrial Fibrillation Paroxysmal (HCC),Monitoring For Therapeutic Drug Therapy,Funeral Car Driver (Current) Anticoagulant Treatment Please take as directed by your Anticoagulation Clinic. 120 tablet 3 08/24/2023 12/06/2023 documented as of this encounter Plan of Treatment Upcoming Encounters Date Type Department Care Team (Latest Contact Info) Description 12/13/2023 11:50 AM CDT Appointment Department of Laboratory Medicine in [address] [place] [phone] Patrick Erickson D.O. [address] [place] [phone] 12/13/2023 12:30 PM CDT Anticoagulation Visit Department of Anticoagulation in [place], [place] [address] [place] [address] Soheila Zapata P.A.-C., M.S. [address] [place] [address] 12/24/2023 10:10 AM CDT Appointment Department of Laboratory Medicine in [place], [place] [address] [place] [address] Patrick Erickson D.O. [address] [place] [address] 12/28/2023 1:00 PM CDT Office Visit Department of Internal Medicine in [place], [place] [address] [place] [phone] Patrick Erickson D.O. [address] [phone] documented as of this encounter [...] LAB POCT ORDERABLE S - DEVICE 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 [address] [address] PCP - General Internal Medicine 08/12/22 documented as of this encounter
--- OUTSIDE RECORDS SUMMARY | 2023-12-08 10:13 | XMS_ITS | Encounter Summary ---
Author Organization [facility] Address [address] [place] [address] Care Team Providers Care Manager Disaster Recovery Name Role Phone Patrick Erickson D.O. Primary Care Provider +1- [phone] Encounter Details Date Type Department Care Team (Latest Contact Info) Description 09/14/2023 12:44 PM CDT - 09/14/2023 11:59 PM CDT Hospital Encounter Department of Laboratory Medicine in [place] [address] [place] [address] Soheila Zapata, PZac-C., M.S. [address] [phone] Hypertensive Heart With Heart Failure And Chronic Kidney Disease (CKD) Stage 3a Glomerular Filtration Rate (GFR) 45 To 59 (HCC); Hyperlipidemia On Treatment; Atrial Fibrillation Paroxysmal (HCC); Monitoring For Therapeutic Drug Therapy; Account Representative (Current) Anticoagulant Treatment Discharge Disposition: Home or Self Care Social History Tobacco Use Types Packs/Day Years Used Date Smoking Tobacco: Never Smokeless Tobacco: Never Alcohol Use Standard Drinks/Week Comments No 0 (1 standard drink = 0.6 oz pur e alcohol) [facility] Utilities Answer Date Recorded In the past 12 months has e Fluencr, gas, oil, or water Over[employer] threatened to shut off services in your [...] How often do you attend chur or adventist services? More than 4 times per year 05/30/2022 Do you belong to any clubs o r organizations such as sikhism groups, unions, fraternal or athletic groups, or [...] Answer Date Recorded PHQ-2 Score 0 04/27/2023 [facility] [place] of Occupat ional Health - Occupational Stress [...] your living situation today? I have a [facility] place to live 07/01/2023 Education [...] tablet every day 90 tablet 3 04/21/2023 qtxtroe-xawc-ndtuy-o reg-capryl 100 mg-150 mg- 50 mg-150 mg [...] Treatment,Atrial Fibrillation Paroxysmal (HCC),Monitoring For Therapeutic Drug Therapy,Detention (Current) Anticoagulant Treatment Please take as directed by your Anticoagulation Clinic. 15 tablet 08/24/2023 12/06/2023 warfarin (JANTOVEN) 5 mg tabletIndications:Hy pertensive Heart With Heart Failure And Chronic Kidney Disease (CKD) Stage 3a Glomerular Filtration Rate (GFR) 45 To 59 (HCC),Hyperlipidemia On Treatment,Atrial Fibrillation Paroxysmal (HCC),Monitoring For Therapeutic Drug Therapy,Detention (Current) Anticoagulant Treatment Please take as directed by your Anticoagulation Clinic. 120 tablet 3 08/24/2023 12/06/2023 documented as of this encounter Plan of Treatment Upcoming Encounters Date Type Department Care Team (Latest Contact Info) Description 12/13/2023 11:50 AM CDT Appointment Department of Laboratory Medicine in [address] [phone] Patrick Erickson D.O. [address] [place] [phone] 12/13/2023 12:30 PM CDT Anticoagulation Visit Department of Anticoagulation in [place], [place] [address] [place] [address] Soheila Zapata P.A.-C., M.S. 0 [place] [address] 12/24/2023 10:10 AM CDT Appointment Department of Laboratory Medicine in [place] [address] [place] [address] Patrick Erickson D.O. [address] [phone] 12/28/2023 1:00 PM CDT Office Visit Department of Internal Medicine in [place], [place] [address] [place] [address] Patrick Erickson D.O. [address] [address] documented as of this encounter Procedures Procedure Name Priority Date/Time Associated Diagnosis Comments INR REFLEX, POCT, B Routine 09/14/2023 1:00 PM CDT Hypertensive Heart With Heart Failure And Chronic Kidney Disease (CKD) Stage 3a Glomerular Filtration Rate (GFR) 45 To 59 (HCC) Hyperlipidemia On Treatment Atrial Fibrillation Paroxysmal (HCC) Monitoring For Therapeutic Drug Therapy Account Representative (Current) Anticoagulant Treatment documented in this encounter Results * INR Reflex, POCT, Blood (09/14/2023 1:00 PM CDT) INR Reflex, POCT, B 1.6 09/14/2023 12:59 PM CDT FB60 Comment: ----ADDITIONAL INFORMATION---- Standard intensity warfarin therapeutic range: 2.0 to 3.0 ?? High intensity warfarin therapeutic range: 2.5 to 3.5 Blood (Blood, Capillary) 09/14/2023 1:00 PM CDT 09/14/2023 12:59 PM CDT Soheila Zapata P.A.-C. M.S. LAB POCT ORDERABLES - DEVICE [facility] [address] [place] [address], [facility] FB60 [facility] in [place] [address] [place] [address] documented in this encounter Visit Diagnoses Diagnosis Hypertensive Heart With Heart Failure And Chronic Kidney Disease (CKD) Stage 3a Glomerular Filtration Rate (GFR) 45 To 59 (HCC) Hyperlipidemia On Treatment Atrial Fibrillation Paroxysmal (HCC) Monitoring For Therapeutic Drug Therapy Detention (Current) Anticoagulant Treatment documented in this encounter Additional Health Concerns Assessment Noted Time PHQ-9 Depression Total Score: 9 02/23/20 23 7:41 PM 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 [address] [phone] PCP - General Internal Medicine 08/12/22 documented as of this encounter
--- OUTSIDE RECORDS SUMMARY | 2023-12-08 10:13 | XMS_ITS | Encounter Summary ---
Author Organization [facility] Address [address] [place] [address] Care Team Providers Care Police Magistrate Name Role Phone Patrick Erickson D.O. Primary Care Provider +1- [phone] Encounter Details Date Type Department Care Team (Latest Contact Info) Description 09/02/2023 3:01 PM CDT - 09/02/2023 11:59 PM CDT Hospital Encounter Department of Laboratory Medicine in [place] [address] [place] [phone] Patrick Erickson D.O. [address] [place] [phone] Hypertensive Heart With Heart Failure And Chronic Kidney Disease (CKD) Stage 3a Glomerular Filtration Rate (GFR) 45 To 59 (HCC); Hyperlipidemia On Treatment; Atrial Fibrillation Paroxysmal (HCC); Monitoring For Therapeutic Drug Therapy; Farmer Vegetable (Current) Anticoagulant Treatment Discharge Disposition: Home or Self Care Social History Tobacco Use Types Packs/Day Years Used Date Smoking Tobacco: Never Smokeless Tobacco: Never Alcohol Use Standard Drinks/Week Comments No 0 (1 standard drink = 0.6 oz pur e alcohol) [facility] Utilities Answer Date Recorded In the past 12 months has th e electric, gas, oil, or water [employer] threatened to shut off services in your [...] PHQ-2 Score 0 04/27/2023 [facility] [place] of Occupat ional Health - Occupational Stress [...] your living situation today? I have a [facility] place to live 07/01/2023 Education [...] tablet every day 90 tablet 3 04/21/2023 worfohh-dyrj-zprys-o reg-capryl 100 mg-150 mg- 50 mg-150 mg [...] Treatment,Atrial Fibrillation Paroxysmal (HCC),Monitoring For Therapeutic Drug Therapy,Farmer Vegetable (Current) Anticoagulant Treatment Please take as directed by your Anticoagulation Clinic. 15 tablet 08/24/2023 12/06/2023 warfarin (JANTOVEN) 5 mg tabletIndications:Hy pertensive Heart With Heart Failure And Chronic Kidney Disease (CKD) Stage 3a Glomerular Filtration Rate (GFR) 45 To 59 (HCC),Hyperlipidemia On Treatment,Atrial Fibrillation Paroxysmal (HCC),Monitoring For Therapeutic Drug Therapy,Farmer Vegetable (Current) Anticoagulant Treatment Please take as directed by your Anticoagulation Clinic. 120 tablet 3 08/24/2023 12/06/2023 documented as of this encounter Plan of Treatment Upcoming Encounters Date Type Department Care Team (Latest Contact Info) Description 12/13/2023 11:50 AM CDT Appointment Department of Laboratory Medicine in [address] [phone] Patrick Erickson D.O. [address] [place] [address] 12/13/2023 12:30 PM CDT Anticoagulation Visit Department of Anticoagulation in [place], [place] [address] [place] [address] Soheila Zapata P.A.-C., M.S. [address] [place] [address] 12/24/2023 10:10 AM CDT Appointment Department of Laboratory Medicine in [place], [place] [address] [place] [phone] Patrick Erickson D.O. [address] [address] 12/28/2023 1:00 PM CDT Office Visit Department of Internal Medicine in [place], [place] [address] [address] Patrick Erickson D.O. [address] [address] documented as of this encounter Procedures Procedure Name Priority Date/Time Associated Diagnosis Comments INR REFLEX, POCT, B Routine 09/02/2023 3:09 PM CDT Hypertensive Heart With Heart Failure And Chronic Kidney Disease (CKD) Stage 3a Glomerular Filtration Rate (GFR) 45 To 59 (HCC) Hyperlipidemia On Treatment Atrial Fibrillation Paroxysmal (HCC) Monitoring For Therapeutic Drug Therapy [facility] (Current) Anticoagulant Treatment documented in this encounter [...] D.O. LAB POCT ORDERABLE S - DEVICE [facility] [address] [place] [address], [facility] FB60 [facility] in [place] [address] [place] [address] documented in this encounter Visit Diagnoses Diagnosis Hypertensive Heart With Heart Failure And Chronic Kidney Disease (CKD) Stage 3a Glomerular Filtration Rate (GFR) 45 To 59 (HCC) Hyperlipidemia On Treatment Atrial Fibrillation Paroxysmal (HCC) Monitoring For Therapeutic Drug Therapy [facility] (Current) Anticoagulant Treatment documented in this encounter Additional Health Concerns Assessment Noted Time PHQ-9 Depression Total Score: 9 02/23/20 23 7:41 PM 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 [address] [place] [address] PCP - General Internal Medicine 08/12/22 documented as of this encounter
--- OUTSIDE RECORDS SUMMARY | 2023-12-08 10:13 | XMS_ITS | Encounter Summary ---
Author Organization [facility] Address [address] [place] [address] Care Team Providers Care Senior Project Manager Name Role Phone Patrick Erickson D.O. Primary Care Provider +1- [phone] Reason for Visit * Outpatient (Routine) - Authorized Specialty Diagnoses / Procedures Referred By Prosper t Referred To Contact Anticoagulation Soheila Zapata P.A.-C., M.S. [address] [address] [facility] Referral ID Status Reason Start Date Expiration Date V isits Requested Visits Authorized [id number] Authorized 01/07/2022 01/06/2025 300 300 Encounter Details Date Type Department Care Team (Latest Contact Info) Description 09/02/2023 4:00 PM CDT Anticoagulation Visit Department of Anticoagulation in [place], [place] [address] [place] [address] Soheila Zapata P.A.-C., M.S. 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 More than 4 times per year 05/30/2022 Do you belong to any clubs o r organizations such as orthodoxy groups, unions, fraternal or athletic groups, or [...] Score 0 04/27/2023 [facility] [place] [facility] - Occupational Stress Questionnaire Answer Date [...] your living situation today? I have a [facility] place to live 07/01/2023 Education Answer [...] please call Primary Care Anticoagulation Program at [phone] from 7:30 am to 4:30 pm. Wednesday-Wednesday [...] if you start any herbal or other xrzg-wgb-xsxkjpr product (check with your doctor, a nurse, [...] for INR less than 1.5: Consulted Anticoagulation [facility] for warfarin dosing. Currently bridging: No. Provider consulted for potential bridging: Edna [place]-Anticoagulation [facility]. Bridging ordered: no. Next INR on 09/06/23 [...] CDT Appointment Department of Laboratory Medicine in [place], [place] [address] [place] [address] Patrick Erickson D.O. [address] [address] 12/13/2023 12:30 PM CDT Anticoagulation Visit Department of Anticoagulation in [place], [place] [address] [place] [address] Soheila Zapata P.A.-C., M.S. [address] [place] [address] 12/24/2023 10:10 AM CDT Appointment Department of Laboratory Medicine in [place], [place] [address] [place] [address] Patrick Erickson D.O. [address] [place] [address] 12/28/2023 1:00 PM CDT Office Visit Department of Internal Medicine in [place], [place] [address] [place] [address] Patrick Erickson D.O. [address] [address] documented as of this encounter [...] D.O. 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 [address] [place] [address] PCP - General Internal Medicine 08/12/22 documented as of this encounter
--- OUTSIDE RECORDS SUMMARY | 2023-12-08 10:13 | XMS_ITS | Encounter Summary ---
Author Organization [facility] Address [address] [place] [address] Care Team Providers Care Collection Systems Administrator Name Role Phone Patrick Erickson D.O. Primary Care Provider +1- [phone] Reason for Visit * Reason Onset Date Comments Anticoagulation 08/13/2023 Lack of Engageme nt Encounter Details Date Type Department Care Team (Latest Contact Info) Description 08/13/2023 Clinical Communication Department of Anticoagulation in [place], [place] [address] [place] [address] Mariam Garland Anticoagulation (Lack of Engagement) Social History Tobacco Use Types Packs/Day Years Used Date Smoking Tobacco: Never Smokeless Tobacco: Never Alcohol Use Standard Drinks/Week Comments No 0 (1 standard drink = 0.6 oz pur e alcohol) [facility] Utilities Answer Date Recorded In the past 12 months has [facility] [employer] gas, oil, or water [employer] threatened to shut off services in your [...] any clubs o r organizations such as religion groups, unions, fraternal or athletic groups, or [...] Answer Date Recorded PHQ-2 Score 0 04/27/2023 [facility] of Occupat ional Health - [...] your living situation today? I have a [facility] to live 07/01/2023 [...] AM More recent results from 08/01/2022 in [facility] Lab Results Component Value Date INR [...] needed: Bilirubin, Total Albumin, ALT, AST - Order Planner's FDA-approved recommendations for transitioning from warfarin to DOAC (*PLEASE NOTE: these may differ from Ask Eureka Expert which recommends stopping warfarin and starting [...] prescriptions. Copay reduction cards from the drug analog ic design engineer cannot be used with Medicare Part D [...] help with Medicare prescription drug plan costs [id number], your annual income must be less than $21,870 for an individual ($29,580 for a couple living together). You can apply for Extra Help online on the valuklik website or by calling them at [phone]. You also can get help apply by calling the ODIN Line at [phone],Wednesday - Wednesday between 8:00 a.m. - 4:30 p.m. [employer] Ten dollar [employer] analog ic design engineer copay card is available for those who privately pay for coverage, have the federal employee health plan or have coverage through an employer based pharmacy program. Patients with Medicare and Medicaid are not eligible for this copay card. This can be searched for online to apply. This card is then given to your pharmacy. The card is good for two years. https://www.LaunchPoint.Slacker.Mindmancer/afib/aietbdi-cat-hyvvovl Eliquis Drug assistance through the analog ic design engineer [employer]MIC [employer]OR [employer]. This is free medicine that isshipped to [...] You can call or apply online. 03-15 [phone] or https://www.Helios [employer] Learning.org/. This must be reapplied for at the beginning of each calendar year. The 3% drug expenditure has to be met before they will approve. Xarelto Ten dollar Xarelto analog ic design engineer copay card (Xarelto withMe savings card) is [...] but unknown until the claim is run. https://www.Boll & Branch/xarelto-cost Xarelto Drug assistance through PPI. This program is only for those with [...] family of two. You can apply online https://www.Toroleopaf.org/apply/ or by calling Xarelto withME coverage gap [...] year and must be applied for annually. [phone] or https://www.Boll & Branch/xarelto-cost. Cake Puller Contact your local [facility] social security assessor/human services office to see if they have [...] time and assistance. Primary Care Anticoagulation Program [phone] documented in this encounter Plan of Treatment Upcoming Encounters Date Type Department Care Team (Latest Contact Info) Description 12/13/2023 11:50 AM CDT Appointment Department of Laboratory Medicine in [address] [address] Patrick Erickson D.O. [address] [place] [address] 12/13/2023 12:30 PM CDT Anticoagulation Visit Department of Anticoagulation in [place], [place] [address] [place] [address] Soheila Zapata P.A.-C., M.S. [address], [place] [address] 12/24/2023 10:10 AM CDT Appointment Department of Laboratory Medicine in [place] [address] [address] [facility] [address] Patrick Erickson D.O. [address] [address] 12/28/2023 1:00 PM CDT Office Visit Department of Internal Medicine in [place], [place] [address] [address] Patrick Erickson D.O. 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 [address] [address] PCP - General Internal Medicine 08/12/22 documented as of this encounter
--- OUTSIDE RECORDS SUMMARY | 2023-12-08 10:13 | XMS_ITS | Encounter Summary ---
Author Organization [facility] Address [address] [place] [address] Care Team Providers Care Track Service Worker Name Role Phone Patrick Erickson D.O. Primary Care Provider +1- [phone] Reason for Visit * Outpatient (Routine) - Authorized Specialty Diagnoses / Procedures Referred By Prosper t Referred To Contact Anticoagulation Soheila Zapata P.A.-C., M.S. [address] [address] [facility] Referral ID Status Reason Start Date Expiration Date V isits Requested Visits Authorized [id number] Authorized 01/07/2022 01/06/2025 300 300 Encounter Details Date Type Department Care Team (Latest Contact Info) Description 09/08/2023 4:00 PM CDT Anticoagulation Visit Department of Anticoagulation in [place], [place] [address] [place] [address] Soheila Zapata P.A.-C., M.S. 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) Anticoagulant Treatment Social History Tobacco Use Types Packs/Day Years Used Date Smoking Tobacco: Never Smokeless Tobacco: Never Alcohol Use Standard Drinks/Week Comments No 0 (1 standard drink = 0.6 oz pur e alcohol) [facility] Utilities Answer Date Recorded In [...] any clubs o r organizations such as pentecostalism groups, unions, fraternal or athletic groups, or [...] Answer Date Recorded PHQ-2 Score 0 04/27/2023 [facility] [place] [facility] - Occupational Stress Questionnaire Answer Date Recorded [...] living situation today? I have a [facility] place to live 07/01/2023 Education [...] please call Primary Care Anticoagulation Program at [phone] from 7:30 am to 4:30 pm. Wednesday-Wednesday [...] if you start any herbal or other ibru-ynu-zuzaydz product (check with your doctor, a nurse, [...] No. Provider consulted for potential bridging: Edna-Anticoagulation [facility]. Bridging ordered: no. Next INR on 09-13-23 [...] CDT Appointment Department of Laboratory Medicine in [place], [place] [address] [place] [address] Patrick Erickson D.O. [address], [place] [address] 12/13/2023 12:30 PM CDT Anticoagulation Visit Department of Anticoagulation in [place], [place] [address] [place] [address] Soheila Zapata P.A.-Ashish., M.S. [address], [place] [address] 12/24/2023 10:10 AM CDT Appointment Department of Laboratory Medicine in [place], [place] [address] [place] [address] Patrick Erickson D.O. [address], [place] [address] 12/28/2023 1:00 PM CDT Office Visit Department of Internal Medicine in [place], [place] [address] [address] Patrick Erickson D.O. [address] [address] documented as of this encounter [...] P.A.-C. MHowieSHowie LAB POCT ORDERABLES - DEVICE [facility] [address] [place] [address], [facility] FB60 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 [address], [place] [address] PCP - General Internal Medicine 08/12/22 documented as of this encounter
--- OUTSIDE RECORDS SUMMARY | 2023-12-08 10:13 | XMS_ITS | Clinical Summary ---
Author Organization [facility] Address [place], [place] [address] Care Team Providers Care Integration Consultant Name Role Phone None Primary Care Provider Harvinder Peterson MD Unavailable [phone] Allergies Active Allergy Reactions Criticality Noted Date [...] age 65+ Completed 5, 08/17/2014 Care Teams Integration Consultant Relationship Specialty Start Date End Date None . PCP - General 08/01/14 Harvinder Pike MD [facility] [place] [address] 08/01/14
--- OUTSIDE RECORDS SUMMARY | 2023-12-08 10:13 | XMS_ITS | Encounter Summary ---
Author Organization [facility] Address [address] [place] [address] Care Team Providers Care Accredited Legal Secretary Name Role Phone Patrick Erickson D.O. Primary Care Provider +1- [phone] Encounter Details Date Type Department Care Team (Latest Contact Info) Description 09/08/2023 3:20 PM CDT - 09/08/2023 11:59 PM CDT Hospital Encounter Department of Laboratory Medicine in [place] [address] [place] [phone] Patrick Erickson D.O. 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 More than 4 times per year 05/30/2022 Do you belong to any clubs o r organizations such as adventist groups, unions, fraternal or athletic groups, or [...] Answer Date Recorded PHQ-2 Score 0 04/27/2023 [facility] of Occupat ional Health - Occupational Stress [...] your living situation today? 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 120 tablet 3 08/24/2023 12/06/2023 documented as of this encounter Plan of Treatment Upcoming Encounters Date Type Department Care Team (Latest Contact Info) Description 12/13/2023 11:50 AM CDT Appointment Department of Laboratory Medicine in [address] [phone] Patrick Erickson D.O. [address] [place] [address] 12/13/2023 12:30 PM CDT Anticoagulation Visit Department of Anticoagulation in [place], [place] [address] [place] [address] Soheila Zapata P.A.-C., M.S. 0 [place] [address] 12/24/2023 10:10 AM CDT Appointment Department of Laboratory Medicine in [place], [place] [address] [place] [phone] Patrick Erickson D.O. [address] [address] 12/28/2023 1:00 PM CDT Office Visit Department of Internal Medicine in [place], [place] [address] [place] [address] Patrick Erickson D.O. 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 [address] [place] [address] PCP - General Internal Medicine 08/12/22 documented as of this encounter
[2023-12-08] MEDS: LACTATED RINGERS 1000 ML 1,000 ML 100 ML IV ×2 (11:00→14:20)
[2023-12-08] MEDS: SODIUM CHLORIDE 0.9 % (FLUSH) 10 ML SYRINGE IVF (11:00)
[2023-12-08] MEDS: fentaNYL 100 MCG/2 ML inj IVP (11:36)
[2023-12-08] MEDS: MIDAZOLAM HCL 1 MG/ML inj IVP (11:36)
[2023-12-08] MEDS: CEFAZOLIN 2 GM in 0.9 % SODIUM CHLORIDE Mini-bag 100 ML IVPB (12:00)
--- NOTE | 2023-12-08 12:12 | W.PM.H&PU ---
History & Physical Update History & Physical Update H&P Reviewed and patient assessed: No changes noted
--- NOTE | 2023-12-08 12:30 | SUR.OPER ---
PATIENT QUESTIONS ANSWERED SATISFACTORILY PREOPERATIVELY. PATIENT BROUGHT TO OR #3 PER CART FOLLOWING THE BLOCK. Patient positioned supine on OR #3 bed for the intubation.? Perioperative team wrapped the right arm in a neutral position on the pt. abdomen with the drawsheet. Left arm elevated on an IV pole in a padded strap. Final approval of positioning by surgeon.
--- NOTE | 2023-12-08 12:45 | CRLHL7_ITS ---
For Patients: As a result of the Cures Act, medical imaging exams and procedure reports are released immediately into your electronic medical record. You may view this report before your referring provider. If you have questions, please contact your health care provider. INDICATION: ORIF. FINDINGS: Four views of the left humerus show surgical plate and screws stabilizing a left humerus fracture. The hardware appears intact. Dictated by Soham Underwood MD @ 12/10/2023 10:14:54 AM (Electronically Signed)
--- NOTE | 2023-12-08 14:07 | PM.ORPRC ---
Procedure Note Date of procedure: 12/08/23 Procedure: PREOPERATIVE DIAGNOSES: 1. Left midshaft humerus fracture, acute, closed, displaced POSTOPERATIVE DIAGNOSES: 1. Left midshaft humerus fracture, acute, closed, displaced NAME OF OPERATION: 1. Left midshaft humerus open reduction internal fixation 2. 29569 - intraoperative fluoroscopy >1 hour. SURGEON: Devin Mott MD SALAD COUNTER ATTENDANT: Elgin Thomas PA-C - Of note, a skilled office administrative assistant was critical for this case to aide in patient positioning, limb manipulation, tissue retraction, closure, and splinting. ANESTHESIA: Supraclavicular block plus general anesthetic EBL: 200 mL IMPLANTS: Arthrex 3.5 mm LC-DCP type plate with multiple 3.5 mm locking screws and 3.0 mm nonlocking interfragmentary screw fixation (x2) TOURNIQUET: None. INDICATIONS: The patient is a pleasant, 78-year-old female who sustained a left midshaft humerus fracture after a fall from standing height. They presented to [facility] where x-rays were obtained and revealed a humerus fracture with significant displacement. Long oblique fracture pattern. Given the larger body habitus and difficulty stabilizing the fracture with coaptation splint, surgery was indicated. FINDINGS: Closed, 2 part midshaft humerus fracture with a long oblique fracture pattern. Radial nerve and musculocutaneous/lateral antebrachial cutaneous nerves were not encountered. PROCEDURE: Following a thorough discussion of risks, benefits, and alternatives, consent was obtained and the operative extremity was marked. The patient was brought to the operating room and placed supine on the operating table. Induction of anesthesia was achieved. Appropriate time out was performed identifying proper patient, site and procedure. 2 g IV Ancef was administered within 1 hour of incision preoperatively. The left upper extremity was prepped and draped in the appropriate sterile fashion using ChloraPrep prep. A longitudinal incision made from the deltopectoral interval proximally extending down along the lateral border of the biceps towards the distal portion of the biceps. Sharp incision through skin and blunt dissection to subcutaneous tissue allowed us to identify the fascial layer. Cephalic vein was protected and retracted laterally throughout the case. Deltopectoral interval was identified and allowed us to mobilize the anterior deltoid fibers for ventral plate placement. The lateral portion of the biceps brachii was also identified in the fascia released allowing us to retract the biceps medially. Brachialis was split in its lateral 1/3 and medial 2/3 muscle fibers to attempt to separate the radial versus musculocutaneous innervated portions. The fracture was encountered and cleared of interposed periosteum and fracture hematoma. The fracture was realigned and stabilized with various reduction clamps. 2 interfragmentary screws were then drilled, measured, overdrilled, countersunk, and placed with excellent security of the fracture. The clamps removed and a 3.5 mm LCP-DCP type plate was placed along the anteromedial portion of the humerus. Locking screws were placed both proximal and distal after ensuring the plate was opposed against the humerus bone. C-arm fluoroscopic imaging was utilized to confirm proper fracture reduction and plate position and screw length. At this stage, the wound was thoroughly irrigated with normal saline. Closure performed with 0 Vicryl for the deep fat reapproximation. Then, 2-0 Vicryl for the subcutaneous, and 4-0 Monocryl for subcuticular closure. Dressings were applied and the patient was awoken from anesthesia and transferred to PACU in stable condition. A skilled office administrative assistant was critical for this case to aid in patient positioning, tissue retraction, limb manipulation/positioning, awareness and protection of critical structures, and closure. PLAN: 1. Sling to operative extremity. May come out of this for elbow, forearm, wrist, digit range of motion and pendulums of the shoulder. 2. Ice, acetominphen or ibuprofen PRN. 3. Oxygen for pain as needed. 4. Follow up with PA visit in 7-10 days for wound check and initiation of physical therapy for passive range of motion and edema control and periscapular strengthening.
--- NOTE | 2023-12-08 14:55 | W.ANESCHARGE ---
Anesthesia Charges Start Date/Time Anesthesia Start Date: 12/08/23 Anesthesia Start Time: 11:44 Stop Date/Time Anesthesia Stop Date: 12/08/23 Anesthesia Stop Time: 14:44
--- NOTE | 2023-12-08 15:02 | W.ANESCHARGE ---
Anesthesia Charges Start Date/Time Anesthesia Start Date: 12/08/23 Anesthesia Start Time: 11:44 Stop Date/Time Anesthesia Stop Date: 12/08/23 Anesthesia Stop Time: 14:44 Summary Extremes of Age - Over 70 or under 1: MDA
--- NOTE | 2023-12-08 15:03 | P.NB_ITS ---
Nerve Block Nerve Block Time Seen by Provider: 11:38 Date Seen: 12/08/23 Type of block requested by surgeon for post-operative analgesia: supraclavicular Side: left Time out performed: Yes Verification of patient name: Yes Verification of date of : Yes Site marking: site marked Name of person performing procedure: Angelito Continuous monitoring Was continuous monitoring of O2 sat, B/P, environmental monitoring specialist, recorded every 15 minutes?: Yes Procedure Checklist: sterile prep, needles and gloves Ultrasound guided. Images saved: Yes Medications given in 5ml increments after negative aspiration: Ropivicaine %: 0.5 mL: 20 Needle gauge: 22 Decadron (mg): 10 Precedex (mcg): 25 Patient tolerated procedure well: Yes Block Charges Block Charge (with Pro Fee): Brachial Plexus Use of Ultrasound Machine for Block: Yes- US Guidance/pain block
[2023-12-08] MEDS: fentaNYL 100 MCG/2 ML inj 50 MCG IVP (15:05)
[2023-12-08 15:59] LABS: INR, Point of Care* 1.3 (0.8-1.4)
== END 2023-12-08 17:03 | disposition home or self-care (01) ==
PROVIDERS: PCP Nurse Practitioner; Visit Provider Orthopaedic Surgery Sports Medicine
PROC: (CPT 23615; principal; 2023-12-08 12:45)
DX: S42.392A Other fracture of shaft of left humerus, initial encounter for closed fracture (principal); G89.18 Other acute postprocedural pain
CPT/HCPCS: 24515; 01744; 64415; 73060; 76000; 76942; 85610; 99100; A4580; C1713; J0330; J0690; J1100; J2250; J2704; J2795; J3010; J7120

== ENCOUNTER 2023-12-24 08:38 | Outpatient (CLI) | payer OTHER, SELFPAY ==
--- OUTSIDE RECORDS SUMMARY | 2023-12-24 08:43 | XMS_ITS | Continuity of Care Document ---
Author Organization [facility] Address [address] [place] [address] Care Team Providers Care Cnc Specialist Name Role Phone Patrick Erickson D.O. Primary Care Provider [phone]- [phone] Source Comments Patient records contain information from all sites at [facility]. For routine questions regarding patient records, call [phone] during business hours, M-F 8:00 AM - 5:00 PM Central Time. Record requests for emergency care only can be directed to [phone] at any time.[facility] Encounters Date Type Department Care Team Description 12/20/2023 4:20 PM CDT Anticoagulation Visit Department of Anticoagulation in [place], [place] [address] [place] [address] Soheila Zapata P.A.-Ashish., M.S. 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 Hypertensive Heart And Chronic Kidney Disease With Heart Failure And Stage 1 To 4 Chronic Kidney Disease Or Unspecified Chronic Kidney Disease (HCC); Hyperlipidemia On Treatment; Atrial Fibrillation Paroxysmal (HCC); Monitoring For Therapeutic Drug Therapy; Halfway (Current) Anticoagulant Treatment Discharge Disposition: Home or Self Care 12/17/2023 Clinical Communication Department of Anticoagulation in [place], [place] [address] [place] [phone] La Mendoza R.N. Anticoagulation (Unable to come in for INR today) 12/15/2023 Clinical Communication Department of Anticoagulation in [place], [place] [address] [place] [phone] Alea Eaton R.N. Anticoagulation (DOAC) 12/15/2023 4:49 PM CDT - 12/15/2023 11:59 PM CDT Hospital Encounter Department of Laboratory Medicine in [address] [address] Patrick Erickson D.O. Atrial Fibrillation Paroxysmal (HCC) Discharge Disposition: Home or Self Care 12/14/2023 11:30 AM CDT Anticoagulation Visit Department of Anticoagulation in [address] [address] Soheila Zapata P.A.-C., M.S. Hypertensive Heart And Chronic Kidney Disease With Heart Failure And Stage 1 To 4 Chronic Kidney Disease Or Unspecified Chronic Kidney Disease (HCC) (Primary Dx); Hyperlipidemia On Treatment; Atrial Fibrillation Paroxysmal (HCC); Monitoring For Therapeutic Drug Therapy; Debeaker (Current) Anticoagulant Treatment 12/13/2023 4:15 PM CDT - 12/13/2023 11:59 PM CDT Hospital Encounter Department of Laboratory Medicine in [address] [address] Patrick Erickson D.O. Atrial Fibrillation Paroxysmal (HCC) Discharge Disposition: Home or Self Care 12/10/2023 Refill Department of Internal Medicine in [place], [place] [address] [place] [address] Patrick Erickson D.O. Med Refill 12/06/2023 Clinical Communication Department of Anticoagulation in [place], [place] [address] [place] [phone] Isa aCllahan, RMoraima. Anticoagulation (INR - ordered by provider ) 12/06/2023 Clinical Communication Department of Cardiovascular Diseases in [place], [place] [address] [place] [address] Roberto Dumont APRN CHowieN.P. Med Question 12/03/2023 2:50 PM CDT - 12/03/2023 11:59 PM CDT Hospital Encounter Department of Laboratory Medicine in [place], [place] [address] [place] [phone] Patrick Erickson D.O. Hypertensive Heart And Chronic Kidney Disease With Heart Failure And Stage 1 To 4 Chronic Kidney Disease Or Unspecified Chronic Kidney Disease (HCC); Hyperlipidemia On Treatment; Atrial Fibrillation Paroxysmal (HCC); Monitoring For Therapeutic Drug Therapy; Debeaker (Current) Anticoagulant Treatment Discharge Disposition: Home or Self Care 12/03/2023 3:50 PM CDT Anticoagulation Visit Department of Anticoagulation in [place], [place] [address] [place] [phone] Soheila Zapata, Rafael-Ashish., M.S. Atrial Fibrillation Paroxysmal (HCC) (Primary Dx); Hypertensive Heart And Chronic Kidney Disease With Heart Failure And Stage 1 To 4 Chronic Kidney Disease Or Unspecified Chronic Kidney Disease (HCC); Hyperlipidemia On Treatment; Monitoring For Therapeutic Drug Therapy; Halfway (Current) Anticoagulant Treatment 12/01/2023 Clinical Communication Department of Orthopedic Surgery in [place], [place] [address] [place] [address] Sher Bauman M.D. Arm Injury; Post Ed Visit Follow-up 11/29/2023 Clinical Communication Department of Family Medicine, [address] [place] [address] Butch Sanchez R.N. COVID Treatment Review 11/27/2023 Nurse Triage Department of Internal Medicine in [place], [place] [address], [place] [phone] Kari Olivarez R.N. Cough 11/22/2023 4:00 PM CDT Anticoagulation Visit Department of Anticoagulation in [place], [place] [address] [place] [phone] Soheila Zapata P.A.-C., M.S. Hypertensive Heart And Chronic Kidney Disease With Heart Failure And Stage 1 To 4 Chronic Kidney Disease Or Unspecified Chronic Kidney Disease (HCC) (Primary Dx); Hyperlipidemia On Treatment; Atrial Fibrillation Paroxysmal (HCC); Monitoring For Therapeutic Drug Therapy; Halfway (Current) Anticoagulant Treatment 11/22/2023 3:20 PM CDT - 11/22/2023 11:59 PM CDT Hospital Encounter Department of Laboratory Medicine in [address] [phone] Patrick Erickson D.O. Hypertensive Heart And Chronic Kidney Disease With Heart Failure And Stage 1 To 4 Chronic Kidney Disease Or Unspecified Chronic Kidney Disease (HCC); Hyperlipidemia On Treatment; Atrial Fibrillation Paroxysmal (HCC); Monitoring For Therapeutic Drug Therapy; Debeaker (Current) Anticoagulant Treatment Discharge Disposition: Home or Self Care 11/12/2023 11:50 AM CDT - 11/12/2023 11:59 PM CDT Hospital Encounter Department of Laboratory Medicine in [address] [address] Patrick Erickson D.O. Atrial Fibrillation Paroxysmal (HCC); Monitoring For Therapeutic Drug Therapy; Halfway (Current) Anticoagulant Treatment Discharge Disposition: Home or Self Care 11/12/2023 12:30 PM CDT Anticoagulation Visit Department of Anticoagulation in [place], [place] [address] [place] [phone] Soheila Zapata P.A.-C., M.S. Hypertensive Heart And Chronic Kidney Disease With Heart Failure And Stage 1 To 4 Chronic Kidney Disease Or Unspecified Chronic Kidney Disease (HCC) (Primary Dx); Hyperlipidemia On Treatment; Atrial Fibrillation Paroxysmal (HCC); Monitoring For Therapeutic Drug Therapy; Debeaker (Current) Anticoagulant Treatment 11/09/2023 Orders Only [facility] Patrick Erickson D.O. 11/02/2023 Clinical Communication Department of Anticoagulation in [place], [place] [address] [place] [phone] Cullen Guillen R.N. Anticoagulation (CCM Update-New PCP) 11/02/2023 3:30 PM CDT Anticoagulation Visit Department of Anticoagulation in [place], [place] [address] [place] [phone] Soheila Zapata P.A.-C., M.S. Hypertensive Heart And Chronic Kidney Disease With Heart Failure And Stage 1 To 4 Chronic Kidney Disease Or Unspecified Chronic Kidney Disease (HCC) (Primary Dx); Hyperlipidemia On Treatment; Atrial Fibrillation Paroxysmal (HCC); Monitoring For Therapeutic Drug Therapy; Halfway (Current) Anticoagulant Treatment 11/02/2023 2:50 PM CDT - 11/02/2023 11:59 PM CDT Hospital Encounter Department of Laboratory Medicine in [address] [address] Patrick Erickson D.O. Hypertensive Heart And Chronic Kidney Disease With Heart Failure And Stage 1 To 4 Chronic Kidney Disease Or Unspecified Chronic Kidney Disease (HCC); Hyperlipidemia On Treatment; Atrial Fibrillation Paroxysmal (HCC); Monitoring For Therapeutic Drug Therapy; Halfway (Current) Anticoagulant Treatment Discharge Disposition: Home or Self Care 10/28/2023 3:30 PM CDT Anticoagulation Visit Department of Anticoagulation in [place], [place] [address] [place] [phone] Soheila Zapata P.A.-C., M.S. Hypertensive Heart And Chronic Kidney Disease With Heart Failure And Stage 1 To 4 Chronic Kidney Disease Or Unspecified Chronic Kidney Disease (HCC) (Primary Dx); Hyperlipidemia On Treatment; Atrial Fibrillation Paroxysmal (HCC); Monitoring For Therapeutic Drug Therapy; Debeaker (Current) Anticoagulant Treatment 10/28/2023 2:50 PM CDT - 10/28/2023 11:59 PM CDT Hospital Encounter Department of Laboratory Medicine in [address] [phone] Patrick Erickson D.O. Hypertensive Heart And Chronic Kidney Disease With Heart Failure And Stage 1 To 4 Chronic Kidney Disease Or Unspecified Chronic Kidney Disease (HCC); Hyperlipidemia On Treatment; Atrial Fibrillation Paroxysmal (HCC); Monitoring For Therapeutic Drug Therapy; Debeaker (Current) Anticoagulant Treatment Discharge Disposition: Home or Self Care 10/19/2023 10:10 AM CDT Anticoagulation Visit Department of Anticoagulation in [place], [place] [address] [place] [phone] Soheila Zapata P.A.-C., M.S. Hypertensive Heart And Chronic Kidney Disease With Heart Failure And Stage 1 To 4 Chronic Kidney Disease Or Unspecified Chronic Kidney Disease (HCC) (Primary Dx); Hyperlipidemia On Treatment; Atrial Fibrillation Paroxysmal (HCC); Monitoring For Therapeutic Drug Therapy; Debeaker (Current) Anticoagulant Treatment 10/15/2023 2:50 PM CDT - 10/15/2023 11:59 PM CDT Hospital Encounter Department of Laboratory Medicine in [address] [address] Patrick Erickson D.O. Hypertensive Heart And Chronic Kidney Disease With Heart Failure And Stage 1 To 4 Chronic Kidney Disease Or Unspecified Chronic Kidney Disease (HCC); Hyperlipidemia On Treatment; Atrial Fibrillation Paroxysmal (HCC); Monitoring For Therapeutic Drug Therapy; Halfway (Current) Anticoagulant Treatment Discharge Disposition: Home or Self Care 10/08/2023 9:30 AM CDT Anticoagulation Visit Department of Anticoagulation in [address] [address] Soheila Zapata P.Genie.-C., M.S. Hypertensive Heart And Chronic Kidney Disease With Heart Failure And Stage 1 To 4 Chronic Kidney Disease Or Unspecified Chronic Kidney Disease (HCC) (Primary Dx); Hyperlipidemia On Treatment; Atrial Fibrillation Paroxysmal (HCC); Monitoring For Therapeutic Drug Therapy; Debeaker (Current) Anticoagulant Treatment 10/07/2023 2:49 PM CDT - 10/07/2023 11:59 PM CDT Hospital Encounter Department of Laboratory Medicine in [address] [address] Patrick Erickson D.O. Atrial Fibrillation Paroxysmal (HCC) Discharge Disposition: Home or Self Care 10/04/2023 3:50 PM CDT Anticoagulation Visit Department of Anticoagulation in [address] [phone] Soheila Zapata P.A.-C., M.S. Atrial Fibrillation Paroxysmal (HCC) (Primary Dx); Hypertensive Heart And Chronic Kidney Disease With Heart Failure And Stage 1 To 4 Chronic Kidney Disease Or Unspecified Chronic Kidney Disease (HCC); Hyperlipidemia On Treatment; Monitoring For Therapeutic Drug Therapy; Debeaker (Current) Anticoagulant Treatment 10/01/2023 Clinical Communication Department of Anticoagulation in [place], [place] [address] [place] [address] La Mendoza R.N. Anticoagulation (Out of range INR.) 10/01/2023 2:30 PM CDT - 10/01/2023 11:59 PM CDT Hospital Encounter Department of Laboratory Medicine in [address] [phone] Patrick Erickson D.O. Hypertensive Heart With Heart Failure And Chronic Kidney Disease (CKD) Stage 3a Glomerular Filtration Rate (GFR) 45 To 59 (HCC); Hyperlipidemia On Treatment; Atrial Fibrillation Paroxysmal (HCC); Monitoring For Therapeutic Drug Therapy; Debeaker (Current) Anticoagulant Treatment Discharge Disposition: Home or Self Care 09/24/2023 3:30 PM CDT Anticoagulation Visit Department of Anticoagulation in [place], [place] [address] [place] [address] Soheila Zapata P.A.-C., M.S. Hypertensive Heart With Heart Failure And Chronic Kidney Disease (CKD) Stage 3a Glomerular Filtration Rate (GFR) 45 To 59 (HCC) (Primary Dx); Hyperlipidemia On Treatment; Atrial Fibrillation Paroxysmal (HCC); Monitoring For Therapeutic Drug Therapy; Halfway (Current) Anticoagulant Treatment 09/24/2023 2:50 PM CDT - 09/24/2023 11:59 PM CDT Hospital Encounter Department of Laboratory Medicine in [address] [phone] Patrick Erickson D.O. Hypertensive Heart With Heart Failure And Chronic Kidney Disease (CKD) Stage 3a Glomerular Filtration Rate (GFR) 45 To 59 (HCC); Hyperlipidemia On Treatment; Atrial Fibrillation Paroxysmal (HCC); Monitoring For Therapeutic Drug Therapy; Halfway (Current) Anticoagulant Treatment Discharge Disposition: Home or Self Care 09/21/2023 1:30 PM CDT Anticoagulation Visit Department of Anticoagulation in [address] [address] Soheila Zapata P.Genie.-C., M.S. Hypertensive Heart With Heart Failure And Chronic Kidney Disease (CKD) Stage 3a Glomerular Filtration Rate (GFR) 45 To 59 (HCC) (Primary Dx); Hyperlipidemia On Treatment; Atrial Fibrillation Paroxysmal (HCC); Monitoring For Therapeutic Drug Therapy; Debeaker (Current) Anticoagulant Treatment 09/21/2023 11:55 AM CDT - 09/21/2023 11:59 PM CDT Hospital Encounter Department of Laboratory Medicine in [address] [phone] Patrick Erickson D.O. Hypertensive Heart With Heart Failure And Chronic Kidney Disease (CKD) Stage 3a Glomerular Filtration Rate (GFR) 45 To 59 (HCC); Hyperlipidemia On Treatment; Atrial Fibrillation Paroxysmal (HCC); Monitoring For Therapeutic Drug Therapy; Halfway (Current) Anticoagulant Treatment Discharge Disposition: Home or Self Care 09/14/2023 1:30 PM CDT Anticoagulation Visit Department of Anticoagulation in [address] [phone] Soheila Zapata P.A.-C., M.S. Atrial Fibrillation Paroxysmal (HCC) (Primary Dx); Hypertensive Heart With Heart Failure And Chronic Kidney Disease (CKD) Stage 3a Glomerular Filtration Rate (GFR) 45 To 59 (HCC); Hyperlipidemia On Treatment; Monitoring For Therapeutic Drug Therapy; Halfway (Current) Anticoagulant Treatment 09/14/2023 12:44 PM CDT - 09/14/2023 11:59 PM CDT Hospital Encounter Department of Laboratory Medicine in [address] [phone] Soheila Zapata P.A.-C., M.S. Hypertensive Heart With Heart Failure And Chronic Kidney Disease (CKD) Stage 3a Glomerular Filtration Rate (GFR) 45 To 59 (HCC); Hyperlipidemia On Treatment; Atrial Fibrillation Paroxysmal (HCC); Monitoring For Therapeutic Drug Therapy; Debeaker (Current) Anticoagulant Treatment Discharge Disposition: Home or Self Care 09/08/2023 4:00 PM CDT Anticoagulation Visit Department of Anticoagulation in [place], [place] [address] [place] [phone] Soheila Zapata P.A.-Ashish., M.S. Hypertensive Heart With Heart Failure And Chronic Kidney Disease (CKD) Stage 3a Glomerular Filtration Rate (GFR) 45 To 59 (HCC) (Primary Dx); Hyperlipidemia On Treatment; Atrial Fibrillation Paroxysmal (HCC); Monitoring For Therapeutic Drug Therapy; Halfway (Current) Anticoagulant Treatment 09/08/2023 3:20 PM CDT - 09/08/2023 11:59 PM CDT Hospital Encounter Department of Laboratory Medicine in [address] [phone] Patrick Erickson D.O. Hypertensive Heart With Heart Failure And Chronic Kidney Disease (CKD) Stage 3a Glomerular Filtration Rate (GFR) 45 To 59 (HCC); Hyperlipidemia On Treatment; Atrial Fibrillation Paroxysmal (HCC); Monitoring For Therapeutic Drug Therapy; Halfway (Current) Anticoagulant Treatment Discharge Disposition: Home or Self Care 09/02/2023 4:00 PM CDT Anticoagulation Visit Department of Anticoagulation in [place], [place] [address] [place] [phone] Soheila Zapata P.A.-Ashish., M.S. Atrial Fibrillation Paroxysmal (HCC) (Primary Dx); Hypertensive Heart With Heart Failure And Chronic Kidney Disease (CKD) Stage 3a Glomerular Filtration Rate (GFR) 45 To 59 (HCC); Hyperlipidemia On Treatment; Monitoring For Therapeutic Drug Therapy; Debeaker (Current) Anticoagulant Treatment 09/02/2023 3:01 PM CDT - 09/02/2023 11:59 PM CDT Hospital Encounter Department of Laboratory Medicine in [address] [address] Patrick Erickson D.O. Hypertensive Heart With Heart Failure And Chronic Kidney Disease (CKD) Stage 3a Glomerular Filtration Rate (GFR) 45 To 59 (HCC); Hyperlipidemia On Treatment; Atrial Fibrillation Paroxysmal (HCC); Monitoring For Therapeutic Drug Therapy; Halfway (Current) Anticoagulant Treatment Discharge Disposition: Home or Self Care 08/27/2023 2:30 PM CDT Anticoagulation Visit Department of Anticoagulation in [place], [place] [address] [place] [address] Soheila Zapata P.A.-C., M.S. Hypertensive Heart With Heart Failure And Chronic Kidney Disease (CKD) Stage 3a Glomerular Filtration Rate (GFR) 45 To 59 (HCC) (Primary Dx); Hyperlipidemia On Treatment; Atrial Fibrillation Paroxysmal (HCC); Monitoring For Therapeutic Drug Therapy; Debeaker (Current) Anticoagulant Treatment 08/27/2023 1:50 PM CDT - 08/27/2023 11:59 PM CDT Hospital Encounter Department of Laboratory Medicine in [address] [address] Patrick Erickson D.O. Hypertensive Heart With Heart Failure And Chronic Kidney Disease (CKD) Stage 3a Glomerular Filtration Rate (GFR) 45 To 59 (HCC); Hyperlipidemia On Treatment; Atrial Fibrillation Paroxysmal (HCC); Monitoring For Therapeutic Drug Therapy; Halfway (Current) Anticoagulant Treatment Discharge Disposition: Home or Self Care 08/24/2023 10:30 AM CDT Anticoagulation Visit Department of Anticoagulation in [place], [place] [address] [place] [address] Soheila Zapata P.A.-C., M.S. Hypertensive Heart With Heart Failure And Chronic Kidney Disease (CKD) Stage 3a Glomerular Filtration Rate (GFR) 45 To 59 (HCC) (Primary Dx); Hyperlipidemia On Treatment; Atrial Fibrillation Paroxysmal (HCC); Monitoring For Therapeutic Drug Therapy; Halfway (Current) Anticoagulant Treatment 08/24/2023 9:46 AM CDT - 08/24/2023 11:59 PM CDT Hospital Encounter Department of Laboratory Medicine in [address] [phone] Patrick Erickson D.O. Hypertensive Heart With Heart Failure And Chronic Kidney Disease (CKD) Stage 3a Glomerular Filtration Rate (GFR) 45 To 59 (HCC); Hyperlipidemia On Treatment; Atrial Fibrillation Paroxysmal (HCC); Monitoring For Therapeutic Drug Therapy; Debeaker (Current) Anticoagulant Treatment Discharge Disposition: Home or Self Care 08/17/2023 3:50 PM CDT Anticoagulation Visit Department of Anticoagulation in [place], [place] [address] [place] [phone] Soheila Zapata P.A.-C., M.S. Hypertensive Heart With Heart Failure And Chronic Kidney Disease (CKD) Stage 3a Glomerular Filtration Rate (GFR) 45 To 59 (HCC) (Primary Dx); Hyperlipidemia On Treatment; Atrial Fibrillation Paroxysmal (HCC); Monitoring For Therapeutic Drug Therapy; Debeaker (Current) Anticoagulant Treatment 08/16/2023 Clinical Communication Department of Anticoagulation in [place], [place] [address] [place] [phone] Kina Montgomery R.N. Anticoagulation (INR OOR) 08/16/2023 1:24 PM CDT - 08/16/2023 11:59 PM CDT Hospital Encounter Department of Laboratory Medicine in [address] [phone] Patrick Erickson D.O. Hypertensive Heart With Heart Failure And Chronic Kidney Disease (CKD) Stage 3a Glomerular Filtration Rate (GFR) 45 To 59 (HCC); Hyperlipidemia On Treatment; Atrial Fibrillation Paroxysmal (HCC); Monitoring For Therapeutic Drug Therapy; Halfway (Current) Anticoagulant Treatment Discharge Disposition: Home or Self Care 08/13/2023 Clinical Communication Department of Anticoagulation in [address] [phone] Mariam Garland Anticoagulation (Lack of Engagement) 08/06/2023 9:50 AM CDT Anticoagulation Visit Department of Anticoagulation in [place], [place] [address] [place] [phone] Soheila Zapata P.A.-C., M.S. Hypertensive Heart With Heart Failure And Chronic Kidney Disease (CKD) Stage 3a Glomerular Filtration Rate (GFR) 45 To 59 (HCC) (Primary Dx); Hyperlipidemia On Treatment; Atrial Fibrillation Paroxysmal (HCC); Monitoring For Therapeutic Drug Therapy; Halfway (Current) Anticoagulant Treatment 08/05/2023 Clinical Communication Department of Anticoagulation in [address] [phone] Isa Callahan R.N. Anticoagulation (Unable to reach ) 08/05/2023 2:36 PM CDT - 08/05/2023 11:59 PM CDT Hospital Encounter Department of Laboratory Medicine in [place], [place] [address] [place] [address] Patrick Erickson D.O. Hypertensive Heart With Heart Failure And Chronic Kidney Disease (CKD) Stage 3a Glomerular Filtration Rate (GFR) 45 To 59 (HCC); Hyperlipidemia On Treatment; Atrial Fibrillation Paroxysmal (HCC); Monitoring For Therapeutic Drug Therapy; Halfway (Current) Anticoagulant Treatment Discharge Disposition: Home or Self Care 07/06/2023 8:39 AM CDT - 07/06/2023 11:59 PM CDT Hospital Encounter Department of Laboratory Medicine in [address] [phone] Patrick Erickson D.O. Atrial Fibrillation Paroxysmal (HCC); Hypertensive Heart With Heart Failure And Chronic Kidney Disease (CKD) Stage 3a Glomerular Filtration Rate (GFR) 45 To 59 (HCC); Screening Examination Diabetes Mellitus; Hyperlipidemia On Treatment Discharge Disposition: Home or Self Care 07/06/2023 9:00 AM CDT Anticoagulation Visit Department of Anticoagulation in [place], [place] [address] [place] [address] Soheila Zapata P.A.-C., M.S. Hypertensive Heart With Heart Failure And Chronic Kidney Disease (CKD) Stage 3a Glomerular Filtration Rate (GFR) 45 To 59 (HCC) (Primary Dx); Hyperlipidemia On Treatment; Atrial Fibrillation Paroxysmal (HCC); Monitoring For Therapeutic Drug Therapy; Halfway (Current) Anticoagulant Treatment 07/06/2023 8:17 AM CDT - 07/06/2023 8:38 AM CDT Hospital Encounter Department of Laboratory Medicine in [address] [phone] Patrick Erickson D.O. Atrial Fibrillation Paroxysmal (HCC); Hypertensive Heart With Heart Failure And Chronic Kidney Disease (CKD) Stage 3a Glomerular Filtration Rate (GFR) 45 To 59 (HCC); Hyperlipidemia On Treatment; Monitoring For Therapeutic Drug Therapy; Debeaker (Current) Anticoagulant Treatment Discharge Disposition: Home or Self Care 07/02/2023 Clinical Communication Department of Internal Medicine in [place], [place] [address] [place] [phone] Patrick Erickson D.O. 07/02/2023 10:15 AM CDT Nurse Only Department of Family Medicine, [facility], in [place] [address] [place] [address] Patrick Erickson D.O. McHugh, Wendy A, L.P.N. Nurse Visit (BP check ) 06/24/2023 8:00 AM CDT Anticoagulation Visit Department of Anticoagulation in [place], [place] [address] [place] [phone] Patrick Erickson D.O. Hypertensive Heart With Heart Failure And Chronic Kidney Disease (CKD) Stage 3a Glomerular Filtration Rate (GFR) 45 To 59 (HCC) (Primary Dx); Atrial Fibrillation Paroxysmal (HCC); Hyperlipidemia On Treatment; Monitoring For Therapeutic Drug Therapy; Halfway (Current) Anticoagulant Treatment 06/23/2023 Refill Department of Cardiovascular Diseases in [place], [place] [address] [place] [phone] Roberto Dumont APRN, C.N.P. Med Refill 06/22/2023 Clinical Communication Department of Anticoagulation in [place], [place] [address] [place] [phone] Grace Oneill, RAziza Anticoagulation (Unable to Reach) 06/22/2023 9:58 AM CDT - 06/22/2023 11:59 PM CDT Hospital Encounter Department of Laboratory Medicine in [place], [place] [address] [phone] Soheila Zapata, Rafi.-Ashish., M.S. Hypertensive Heart With Heart Failure And Chronic Kidney Disease (CKD) Stage 3a Glomerular Filtration Rate (GFR) 45 To 59 (HCC); Hyperlipidemia On Treatment; Atrial Fibrillation Paroxysmal (HCC); Monitoring For Therapeutic Drug Therapy; Debeaker (Current) Anticoagulant Treatment Discharge Disposition: Home or Self Care 06/22/2023 9:57 AM CDT Hospital Encounter Department of Laboratory Medicine in [place], [place] [address] [address] [address] Roberto Dumont APRN, C.NLuz Maria Atrial Fibrillation Unspecified (HCC) Discharge Disposition: Home or Self Care 06/22/2023 1:00 PM CDT Office Visit Department of Internal Medicine in [place], [place] [address] [address] Patrick Erickson D.O. Atrial Fibrillation Paroxysmal (HCC) (Primary Dx); Halfway (Current) Anticoagulant Treatment; Monitoring For Therapeutic Drug Therapy; Hypertensive Heart With Heart Failure And Chronic Kidney Disease (CKD) Stage 3a Glomerular Filtration Rate (GFR) 45 To 59 (HCC); Hyperlipidemia On Treatment; Screening Examination Diabetes Mellitus 06/18/2023 Clinical Communication Department of Anticoagulation in [place], [place] [address] [place] [phone] Sandra De Oliveira Anticoagulation (Unable to reach) 06/03/2023 12:50 PM CDT - 06/03/2023 11:59 PM CDT Hospital Encounter Department of Laboratory Medicine in [address] [address] Patrick Erickson D.O. Hypertensive Heart With Heart Failure And Chronic Kidney Disease (CKD) Stage 3a Glomerular Filtration Rate (GFR) 45 To 59 (HCC); Hyperlipidemia On Treatment; Atrial Fibrillation Paroxysmal (HCC); Monitoring For Therapeutic Drug Therapy; Halfway (Current) Anticoagulant Treatment Discharge Disposition: Home or Self Care 06/03/2023 1:30 PM CDT Anticoagulation Visit Department of Anticoagulation in [place], [place] [address] [place] [phone] Soheila Zapata P.A.-C., M.S. Hypertensive Heart With Heart Failure And Chronic Kidney Disease (CKD) Stage 3a Glomerular Filtration Rate (GFR) 45 To 59 (HCC) (Primary Dx); Hyperlipidemia On Treatment; Atrial Fibrillation Paroxysmal (HCC); Monitoring For Therapeutic Drug Therapy; Debeaker (Current) Anticoagulant Treatment 05/27/2023 11:10 AM CDT Anticoagulation Visit Department of Anticoagulation in [place], [place] [address] [place] [address] Soheila Zapata P.A.-C., M.S. Hypertensive Heart With Heart Failure And Chronic Kidney Disease (CKD) Stage 3a Glomerular Filtration Rate (GFR) 45 To 59 (HCC) (Primary Dx); Hyperlipidemia On Treatment; Atrial Fibrillation Paroxysmal (HCC); Monitoring For Therapeutic Drug Therapy; Halfway (Current) Anticoagulant Treatment 05/27/2023 10:20 AM CDT - 05/27/2023 11:59 PM CDT Hospital Encounter Department of Laboratory Medicine in [address] [address] Patrick Erickson D.O. Hypertensive Heart With Heart Failure And Chronic Kidney Disease (CKD) Stage 3a Glomerular Filtration Rate (GFR) 45 To 59 (HCC); Hyperlipidemia On Treatment; Atrial Fibrillation Paroxysmal (HCC); Monitoring For Therapeutic Drug Therapy; Debeaker (Current) Anticoagulant Treatment Discharge Disposition: Home or Self Care 05/21/2023 2:40 PM CDT - 05/21/2023 11:59 PM CDT Hospital Encounter Department of Laboratory Medicine in [address] [address] Patrick Erickson D.O. Atrial Fibrillation Paroxysmal (HCC) Discharge Disposition: Home or Self Care 05/21/2023 3:20 PM CDT Anticoagulation Visit Department of Anticoagulation in [place], [place] [address] [place] [address] Soheila Zapata P.A.-C., M.S. Hypertensive Heart With Heart Failure And Chronic Kidney Disease (CKD) Stage 3a Glomerular Filtration Rate (GFR) 45 To 59 (HCC) (Primary Dx); Hyperlipidemia On Treatment; Atrial Fibrillation Paroxysmal (HCC); Monitoring For Therapeutic Drug Therapy; Halfway (Current) Anticoagulant Treatment 05/11/2023 Orders Only [facility] Patrick Erickson D.O. 05/07/2023 12:25 PM [employer] FRAMES - 05/07/2023 11:59 PM [employer] Hospital Encounter Department of Laboratory Medicine in [place], [place] [address] [place] [phone] Patrick Erickson D.O. Hypertensive Heart With Heart Failure And Chronic Kidney Disease (CKD) Stage 3a Glomerular Filtration Rate (GFR) 45 To 59 (HCC); Hyperlipidemia On Treatment; Atrial Fibrillation Paroxysmal (HCC); Monitoring For Therapeutic Drug Therapy; Halfway (Current) Anticoagulant Treatment Discharge Disposition: Home or Self Care 05/07/2023 1:50 PM [employer]AMES Anticoagulation Visit Department of Anticoagulation in [place], [place] [address] [place] [phone] Soheila Zapata P.A.-C., M.S. Atrial Fibrillation Paroxysmal (HCC) (Primary Dx); Hypertensive Heart With Heart Failure And Chronic Kidney Disease (CKD) Stage 3a Glomerular Filtration Rate (GFR) 45 To 59 (HCC); Hyperlipidemia On Treatment; Monitoring For Therapeutic Drug Therapy; Halfway (Current) Anticoagulant Treatment 04/30/2023 1:30 PM [employer]AMES Anticoagulation Visit Department of Anticoagulation in [place], [place] [address] [place] [phone] Soheila Zapata P.Genie.-C., M.S. Hypertensive Heart With Heart Failure And Chronic Kidney Disease (CKD) Stage 3a Glomerular Filtration Rate (GFR) 45 To 59 (HCC) (Primary Dx); Hyperlipidemia On Treatment; Atrial Fibrillation Paroxysmal (HCC); Monitoring For Therapeutic Drug Therapy; Halfway (Current) Anticoagulant Treatment 04/30/2023 12:24 PM [employer] FRAMES - 04/30/2023 11:59 PM [employer] FRAMES Hospital Encounter Department of Laboratory Medicine in [place], [place] [address] [address] Patrick Erickson D.O. Hypertensive Heart With Heart Failure And Chronic Kidney Disease (CKD) Stage 3a Glomerular Filtration Rate (GFR) 45 To 59 (HCC); Hyperlipidemia On Treatment; Atrial Fibrillation Paroxysmal (HCC); Monitoring For Therapeutic Drug Therapy; Debeaker (Current) Anticoagulant Treatment Discharge Disposition: Home or Self Care 04/28/2023 Refill Department of Internal Medicine in [place], [place] [address] [address] Soheila Zapata P.A.-C., M.S. Med Refill 04/28/2023 Refill Department of Internal Medicine in [address] [address] Anna Iniguez APRN C.N.P., D.N.P. Med Refill 04/27/2023 11:20 AM [employer] Office Visit Department of Internal Medicine in [place], [place] [address] [place] [phone] Anna Iniguez APRN C.N.P., D.N.P. Dermatitis Perioral (Primary Dx); Hypertensive Heart With Heart Failure And Chronic Kidney Disease (CKD) Stage 3a Glomerular Filtration Rate (GFR) 45 To 59 (HCC); Atrial Fibrillation Paroxysmal (HCC); Allergy Unspecified Initial 04/18/2023 Refill Department of Internal Medicine in [place], [place] [address] [place] [phone] Anna Iniguez APRN, C.N.P., D.N.P. Med Refill 04/02/2023 2:38 PM [employer]AMES - 04/02/2023 11:59 PM [employer]AMES Hospital Encounter Department of Laboratory Medicine in [address] [address] Patrick Erickson D.O. Hypertensive Heart With Heart Failure And Chronic Kidney Disease (CKD) Stage 3a Glomerular Filtration Rate (GFR) 45 To 59 (HCC); Hyperlipidemia On Treatment; Atrial Fibrillation Paroxysmal (HCC); Monitoring For Therapeutic Drug Therapy; Halfway (Current) Anticoagulant Treatment Discharge Disposition: Home or Self Care 04/02/2023 3:30 PM [employer]AMES Anticoagulation Visit Department of Anticoagulation in [place], [place] [address] [place] [address] Soheila Zapata P.A.-C., M.S. Hypertensive Heart With Heart Failure And Chronic Kidney Disease (CKD) Stage 3a Glomerular Filtration Rate (GFR) 45 To 59 (HCC) (Primary Dx); Hyperlipidemia On Treatment; Atrial Fibrillation Paroxysmal (HCC); Monitoring For Therapeutic Drug Therapy; Halfway (Current) Anticoagulant Treatment 03/19/2023 4:10 PM [employer]AMES Anticoagulation Visit Department of Anticoagulation in [place], [place] [address] [place] [address] Soheila Zapata P.A.-C., M.S. Hypertensive Heart With Heart Failure And Chronic Kidney Disease (CKD) Stage 3a Glomerular Filtration Rate (GFR) 45 To 59 (HCC) (Primary Dx); Hyperlipidemia On Treatment; Atrial Fibrillation Paroxysmal (HCC); Monitoring For Therapeutic Drug Therapy; Debeaker (Current) Anticoagulant Treatment 03/19/2023 3:12 PM [employer] FRAMES - 03/19/2023 11:59 PM [employer]AMES Hospital Encounter Department of Laboratory Medicine in [address] [address] Patrick Erickson D.O. Hypertensive Heart With Heart Failure And Chronic Kidney Disease (CKD) Stage 3a Glomerular Filtration Rate (GFR) 45 To 59 (HCC); Monitoring For Therapeutic Drug Therapy; Atrial Fibrillation Paroxysmal (HCC) Discharge Disposition: Home or Self Care 03/19/2023 Orders Only Department of Anticoagulation in [place], [place] [address] [place] [address] Soham Chino R.N. Hypertensive Heart With Heart Failure And Chronic Kidney Disease (CKD) Stage 3a Glomerular Filtration Rate (GFR) 45 To 59 (HCC) (Primary Dx); Monitoring For Therapeutic Drug Therapy; Atrial Fibrillation Paroxysmal (HCC) 03/19/2023 Nurse Triage Department of Internal Medicine in [place], [place] [address] [address] Rosa Isela Pelayo R.N. Urinary Symptom 03/12/2023 2:50 PM [employer]AMES - 03/12/2023 11:59 PM [employer]AMES Hospital Encounter Department of Laboratory Medicine in [address] [phone] Patrick Erickson D.O. Atrial Fibrillation Paroxysmal (HCC); Monitoring For Therapeutic Drug Therapy; Halfway (Current) Anticoagulant Treatment Discharge Disposition: Home or Self Care 03/12/2023 4:20 PM [employer]AMES Anticoagulation Visit Department of Anticoagulation in [place], [place] [address] [place] [phone] Soheila Zapata P.A.-C., M.S. Hypertensive Heart With Heart Failure And Chronic Kidney Disease (CKD) Stage 3a Glomerular Filtration Rate (GFR) 45 To 59 (HCC) (Primary Dx); Hyperlipidemia On Treatment; Atrial Fibrillation Paroxysmal (HCC); Monitoring For Therapeutic Drug Therapy; Halfway (Current) Anticoagulant Treatment 03/09/2023 1:50 PM [employer]AMES - 03/09/2023 11:59 PM [employer] Hospital Encounter Department of Laboratory Medicine in [address] [phone] Patrick Erickson D.O. Atrial Fibrillation Paroxysmal (HCC); Monitoring For Therapeutic Drug Therapy; Halfway (Current) Anticoagulant Treatment Discharge Disposition: Home or Self Care 03/09/2023 2:30 PM [employer]AMES Anticoagulation Visit Department of Anticoagulation in [place], [place] [address] [place] [phone] Soheila Zapata P.A.-C., M.S. Hypertensive Heart With Heart Failure And Chronic Kidney Disease (CKD) Stage 3a Glomerular Filtration Rate (GFR) 45 To 59 (HCC) (Primary Dx); Hyperlipidemia On Treatment; Atrial Fibrillation Paroxysmal (HCC); Monitoring For Therapeutic Drug Therapy; Halfway (Current) Anticoagulant Treatment 03/05/2023 4:07 PM [employer] FRAMES - 03/05/2023 11:59 PM [employer]AMES Hospital Encounter Department of Laboratory Medicine in [address] [phone] Patrick Erickson D.O. Atrial Fibrillation Paroxysmal (HCC); Monitoring For Therapeutic Drug Therapy; Debeaker (Current) Anticoagulant Treatment Discharge Disposition: Home or Self Care 03/05/2023 4:00 PM [employer]AMES Anticoagulation Visit Department of Anticoagulation in [place], [place] [address] [place] [phone] Soheila Zapata P.A.-C., M.SHowie Atrial Fibrillation Paroxysmal (HCC) (Primary Dx); Monitoring For Therapeutic Drug Therapy; Debeaker (Current) Anticoagulant Treatment; Hypertensive Heart With Heart Failure And Chronic Kidney Disease (CKD) Stage 3a Glomerular Filtration Rate (GFR) 45 To 59 (HCC); Hyperlipidemia On Treatment 02/25/2023 9:00 AM [employer]AMES Anticoagulation Visit Department of Anticoagulation in [place], [place] [address] [place] [address] Soheila Zapata P.A.-C., M.S. Atrial Fibrillation Paroxysmal (HCC) (Primary Dx); Monitoring For Therapeutic Drug Therapy; Halfway (Current) Anticoagulant Treatment 02/24/2023 4:20 PM [employer] FRAMES - 02/24/2023 11:59 PM [employer]AMES Hospital Encounter Department of Laboratory Medicine in [address] [phone] Soheila Zapata P.A.-C., M.S. Atrial Fibrillation Paroxysmal (HCC); Monitoring For Therapeutic Drug Therapy; Halfway (Current) Anticoagulant Treatment Discharge Disposition: Home or Self Care 02/24/2023 Clinical Communication Department of [facility], [address] [address] Medina Langston R.N. COVID Treatment Review; Error 02/24/2023 Nurse Triage Department of Internal Medicine in [place], [place] [address] [address] Sandra Maravilla R.N. COVID Nurse Line (/) 02/22/2023 Nurse Triage Department of Internal Medicine in [place], [place] [address] [address] Trish Smith R.N. Cough 02/16/2023 9:20 AM [employer]AMES - 02/16/2023 11:59 PM [employer] Hospital Encounter Department of Laboratory Medicine in [address] [phone] Patrick Erickson D.O. Atrial Fibrillation Paroxysmal (HCC); Monitoring For Therapeutic Drug Therapy; Debeaker (Current) Anticoagulant Treatment Discharge Disposition: Home or Self Care 02/16/2023 10:00 AM [employer]AMES Anticoagulation Visit Department of Anticoagulation in [place] [address] [place] [phone] Soheila Zapata P.A.-C., M.S. Atrial Fibrillation Paroxysmal (HCC) (Primary Dx); Monitoring For Therapeutic Drug Therapy; Debeaker (Current) Anticoagulant Treatment 02/09/2023 Orders Only [facility] Patrick Erickson D.O. 02/02/2023 12:30 PM [employer]AMES Anticoagulation Visit Department of Anticoagulation in [place], [place] [address] [place] [phone] Soheila Zapata P.A.-C., M.S. Atrial Fibrillation Paroxysmal (HCC) (Primary Dx); Monitoring For Therapeutic Drug Therapy; Debeaker (Current) Anticoagulant Treatment 02/02/2023 11:50 AM [employer]AMES - 02/02/2023 11:59 PM [employer]AMES Hospital Encounter Department of Laboratory Medicine in [address] [phone] Patrick Erickson D.O. Atrial Fibrillation Paroxysmal (HCC); Monitoring For Therapeutic Drug Therapy; Debeaker (Current) Anticoagulant Treatment Discharge Disposition: Home or Self Care 01/26/2023 10:00 AM [employer]AMES Anticoagulation Visit Department of Anticoagulation in [place], [place] [address] [place] [phone] Soheila Zapata P.A.-C., M.S. Atrial Fibrillation Paroxysmal (HCC) (Primary Dx); Monitoring For Therapeutic Drug Therapy; Debeaker (Current) Anticoagulant Treatment 01/26/2023 9:20 AM [employer] FRAMES - 01/26/2023 11:59 PM [employer]AMES Hospital Encounter Department of Laboratory Medicine in [place], [place] [address] [place] [address] Patrick Erickson D.O. Atrial Fibrillation Paroxysmal (HCC); Monitoring For Therapeutic Drug Therapy; Halfway (Current) Anticoagulant Treatment Discharge Disposition: Home or Self Care 01/14/2023 Clinical Communication Department of Spine in [place], [place] [address] [place] [phone] Sirisha Valentino Follow-up ([facility] is calling to complete your 1-year follow-up PROMIS-CAT questionnaires. You will receive questionnaires at different timepoints in the future. You can complete the current questionnaires in your portal and no return call is necessary. If you have any questions, please call us at: [phone]. Thank you! / ) 12/15/2022 12:00 PM CDT Anticoagulation Visit Department of Anticoagulation in [place], [place] [address] [place] [address] Soheila Zapata P.A.-C., M.S. Atrial Fibrillation Paroxysmal (HCC) (Primary Dx); Monitoring For Therapeutic Drug Therapy; Debeaker (Current) Anticoagulant Treatment; Hypertensive Heart With Heart Failure And Chronic Kidney Disease (CKD) Stage 3a Glomerular Filtration Rate (GFR) 45 To 59 (HCC) 12/15/2022 11:20 AM CDT - 12/15/2022 11:59 PM CDT Hospital Encounter Department of Laboratory Medicine in [address] [phone] Patrick Erickson D.O. Atrial Fibrillation Paroxysmal (HCC); Monitoring For Therapeutic Drug Therapy; Halfway (Current) Anticoagulant Treatment Discharge Disposition: Home or Self Care 11/17/2022 3:10 PM CDT Anticoagulation Visit Department of Anticoagulation in [place], [place] [address] [place] [address] Soheila Zapata P.A.-C., M.S. Atrial Fibrillation Paroxysmal (HCC) (Primary Dx); Monitoring For Therapeutic Drug Therapy; Halfway (Current) Anticoagulant Treatment 11/17/2022 2:08 PM CDT - 11/17/2022 11:59 PM CDT Hospital Encounter Department of Laboratory Medicine in [place], [place] [address] [address] Soheila Zapata P.A.-C., M.S. Atrial Fibrillation Paroxysmal (HCC); Monitoring For Therapeutic Drug Therapy; Halfway (Current) Anticoagulant Treatment Discharge Disposition: Home or Self Care 11/10/2022 12:00 PM CDT - 11/10/2022 11:59 PM CDT Hospital Encounter Department of Laboratory Medicine in [address] [phone] Soheila Zapata P.A.-C., M.S. Atrial Fibrillation Paroxysmal (HCC); Monitoring For Therapeutic Drug Therapy; Halfway (Current) Anticoagulant Treatment Discharge Disposition: Home or Self Care 11/10/2022 12:40 PM CDT Anticoagulation Visit Department of Anticoagulation in [address] [phone] Soheila Zapata P.A.-C., M.S. Atrial Fibrillation Paroxysmal (HCC) (Primary Dx); Monitoring For Therapeutic Drug Therapy; Halfway (Current) Anticoagulant Treatment 11/04/2022 12:33 PM CDT - 11/04/2022 11:59 PM CDT Hospital Encounter Department of Laboratory Medicine in [address] [phone] Patrick Erickson D.O. Atrial Fibrillation Paroxysmal (HCC); Monitoring For Therapeutic Drug Therapy; Debeaker (Current) Anticoagulant Treatment Discharge Disposition: Home or Self Care 11/04/2022 2:30 PM CDT Anticoagulation Visit Department of Anticoagulation in [address] [phone] Soheila Zapata P.A.-C., M.S. Atrial Fibrillation Paroxysmal (HCC) (Primary Dx); Monitoring For Therapeutic Drug Therapy; Debeaker (Current) Anticoagulant Treatment 10/28/2022 8:00 AM CDT Anticoagulation Visit Department of Anticoagulation in [address] [phone] Patrick Erickson D.O. Atrial Fibrillation Paroxysmal (HCC) (Primary Dx); Monitoring For Therapeutic Drug Therapy; Halfway (Current) Anticoagulant Treatment 10/27/2022 Clinical Communication Department of Anticoagulation in [address] [phone] Annalise Palmer R.N. Anticoagulation (Unable to reach ) 10/27/2022 11:16 AM CDT - 10/27/2022 11:59 PM CDT Hospital Encounter Department of Laboratory Medicine in [place], [place] [address] [address] Patrick Erickson D.O. Atrial Fibrillation Paroxysmal (HCC); Monitoring For Therapeutic Drug Therapy; Halfway (Current) Anticoagulant Treatment Discharge Disposition: Home or Self Care 10/21/2022 Clinical Communication Department of Anticoagulation in [place], [place] [address] [place] [phone] Angela Shukla R.N. Anticoagulation (CCM-Enrollment) 10/12/2022 Orders Only Department of Internal Medicine in [place], [place] [address] [phone] Soheila Zapata P.A.-C., M.S. 10/12/2022 9:20 AM CDT - 10/12/2022 11:59 PM CDT Hospital Encounter Department of Laboratory Medicine in [address] [address] Patrick Erickson D.O. Atrial Fibrillation Paroxysmal (HCC); Monitoring For Therapeutic Drug Therapy; Debeaker (Current) Anticoagulant Treatment; Hypertensive Heart With Heart Failure And Chronic Kidney Disease (CKD) Stage 3a Glomerular Filtration Rate (GFR) 45 To 59 (HCC) Discharge Disposition: Home or Self Care 10/12/2022 10:00 AM CDT Anticoagulation Visit Department of Anticoagulation in [place], [place] [address] [place] [phone] Soheila Zapata, P.A.-C., M.S. Atrial Fibrillation Paroxysmal (HCC) (Primary Dx); Monitoring For Therapeutic Drug Therapy; Halfway (Current) Anticoagulant Treatment 10/02/2022 Clinical Communication Department of Anticoagulation in [place], [place] [address] [place] [phone] Carmen Dorado Anticoagulation (Enrollment Update) 10/02/2022 Orders Only Department of Anticoagulation in [place], [place] [address] [place] [phone] Thalia Zepeda R.N. Atrial Fibrillation Paroxysmal (HCC) (Primary Dx); Halfway (Current) Anticoagulant Treatment; Monitoring For Therapeutic Drug Therapy 10/02/2022 8:00 AM CDT Anticoagulation Visit Department of Anticoagulation in [place], [place] [address] [place] [address] Patrick Erickson D.O. Atrial Fibrillation Paroxysmal (HCC) (Primary Dx); Monitoring For Therapeutic Drug Therapy; Debeaker (Current) Anticoagulant Treatment 10/01/2022 Clinical Communication Department of Anticoagulation in [place], [place] [address] [place] [address] Hemalatha Lewis R.N. Anticoagulation 10/01/2022 8:50 AM CDT - 10/01/2022 11:59 PM CDT Hospital Encounter Department of Laboratory Medicine in [address] [phone] Patrick Erickson D.O. Atrial Fibrillation Paroxysmal (HCC); Monitoring For Therapeutic Drug Therapy; Halfway (Current) Anticoagulant Treatment Discharge Disposition: Home or Self Care 09/17/2022 Orders Only Department of Internal Medicine in [place], [place] [address] [address] Soheila Zapata P.A.-C., M.S. Hypertensive Heart With Heart Failure And Chronic Kidney Disease (CKD) Stage 3a Glomerular Filtration Rate (GFR) 45 To 59 (HCC) (Primary Dx) 09/17/2022 11:16 AM CDT - 09/17/2022 11:59 PM CDT Hospital Encounter Department of Laboratory Medicine in [address] [phone] Patrick Erickson D.O. Monitoring For Therapeutic Drug Therapy Discharge Disposition: Home or Self Care 09/17/2022 10:20 AM CDT - 09/17/2022 11:15 AM CDT Hospital Encounter Department of Laboratory Medicine in [address] [phone] Patrick Erickson D.O. Atrial Fibrillation Paroxysmal (HCC); Monitoring For Therapeutic Drug Therapy Discharge Disposition: Home or Self Care 09/17/2022 11:00 AM CDT Anticoagulation Visit Department of Anticoagulation in [place], [place] [address] [place] [phone] Soheila Zapata P.A.-C., M.S. Atrial Fibrillation Paroxysmal (HCC) (Primary Dx); Monitoring For Therapeutic Drug Therapy; Halfway (Current) Anticoagulant Treatment 09/03/2022 10:20 AM CDT - 09/03/2022 11:59 PM CDT Hospital Encounter Department of Laboratory Medicine in [address] [address] Soheila Zapata P.A.-C., M.S. Atrial Fibrillation Unspecified (HCC); Monitoring For Therapeutic Drug Therapy; Debeaker (Current) Anticoagulant Treatment Discharge Disposition: Home or Self Care 09/03/2022 11:00 AM CDT Anticoagulation Visit Department of Anticoagulation in [place], [place] [address] [place] [address] Soheila Zapata P.A.-C., M.S. Atrial Fibrillation Paroxysmal (HCC) (Primary Dx); Monitoring For Therapeutic Drug Therapy; Debeaker (Current) Anticoagulant Treatment 09/01/2022 1:00 PM CDT Office Visit Department of Cardiovascular Diseases in [address] [phone] Roberto Dumont APRN, C.N.P. Atrial Fibrillation Paroxysmal (HCC) (Primary Dx); Debeaker (Current) Anticoagulant Treatment; Bradycardia; Cardiomyopathy Dilated (HCC); Hypertensive Heart With Heart Failure And Chronic Kidney Disease (CKD) Stage 3a Glomerular Filtration Rate (GFR) 45 To 59 (HCC) 08/31/2022 11:00 AM CDT Office Visit Department of Family Medicine, [facility], in [address] [address] Alesha Kellogg APRN, C.N.P. Laceration Blood Vessel Left Index Finger Sequela (Primary Dx) 08/12/2022 Orders Only [facility] Patrick Erickson D.O. Monitoring For Therapeutic Drug Therapy 08/10/2022 11:11 AM CDT - 08/10/2022 11:59 PM CDT Hospital Encounter Department of Laboratory Medicine in [address] [phone] Soheila Zapata P.A.-C., M.S. Atrial Fibrillation Unspecified (HCC); Monitoring For Therapeutic Drug Therapy; Halfway (Current) Anticoagulant Treatment Discharge Disposition: Home or Self Care 08/10/2022 12:30 PM CDT Anticoagulation Visit Department of Anticoagulation in [address] [phone] Soheila Zapata P.A.-C., M.S. Atrial Fibrillation Unspecified (HCC) (Primary Dx); Monitoring For Therapeutic Drug Therapy; Debeaker (Current) Anticoagulant Treatment 08/07/2022 Clinical Communication Department of Anticoagulation in [place], [place] [address] [place] [phone] Lois Vidal R.N. Anticoagulation 07/27/2022 3:20 PM CDT Anticoagulation Visit Department of Anticoagulation in [address] [address] Soheila Zapata P.A.-C., M.S. Atrial Fibrillation Unspecified (HCC) (Primary Dx); Monitoring For Therapeutic Drug Therapy; Halfway (Current) Anticoagulant Treatment 07/27/2022 2:20 PM CDT - 07/27/2022 11:59 PM CDT Hospital Encounter Department of Laboratory Medicine in [address] [address] Soheila Zapata P.A.Quin[place]., M.S. Atrial Fibrillation Unspecified (HCC); Monitoring For Therapeutic Drug Therapy; Halfway (Current) Anticoagulant Treatment Discharge Disposition: Home or Self Care 06/29/2022 10:12 AM CDT - 06/29/2022 11:59 PM CDT Hospital Encounter Department of Laboratory Medicine in [address] [address] Soheila Zapata P.A.-C., M.S. Atrial Fibrillation Unspecified; Monitoring For Therapeutic Drug Therapy; Debeaker (Current) Anticoagulant Treatment Discharge Disposition: Home or Self Care 06/29/2022 11:00 AM CDT Anticoagulation Visit Department of Anticoagulation in [address] [address] Soheila Zapata P.A.-C., M.S. Atrial Fibrillation Unspecified (Primary Dx); Monitoring For Therapeutic Drug Therapy; Halfway (Current) Anticoagulant Treatment 06/19/2022 9:50 AM CDT - 06/19/2022 11:59 PM CDT Hospital Encounter Department of Laboratory Medicine in [address] [address] Soheila Zapata P.A.-C., M.S. Atrial Fibrillation Unspecified; Monitoring For Therapeutic Drug Therapy; Debeaker (Current) Anticoagulant Treatment Discharge Disposition: Home or Self Care 06/19/2022 10:30 AM CDT Anticoagulation Visit Department of Anticoagulation in [address] [address] Soheila Zapata P.A.-C., M.S. Atrial Fibrillation Unspecified (Primary Dx); Monitoring For Therapeutic Drug Therapy; Halfway (Current) Anticoagulant Treatment 06/15/2022 9:50 AM CDT - 06/15/2022 11:59 PM CDT Hospital Encounter Department of Laboratory Medicine in [address] [address] Soheila Zapata P.A.-C., M.S. Atrial Fibrillation Unspecified; Monitoring For Therapeutic Drug Therapy; Debeaker (Current) Anticoagulant Treatment Discharge Disposition: Home or Self Care 06/15/2022 10:30 AM CDT Anticoagulation Visit Department of Anticoagulation in [address] [address] Soheila Zapata P.A.-C., M.S. Atrial Fibrillation Unspecified (Primary Dx); Monitoring For Therapeutic Drug Therapy; Halfway (Current) Anticoagulant Treatment 06/09/2022 9:50 AM CDT - 06/09/2022 11:59 PM CDT Hospital Encounter Department of Laboratory Medicine in [place], [place] [address] [place] [address] Soheila Zapata P.A.-C., M.S. Atrial Fibrillation Unspecified; Monitoring For Therapeutic Drug Therapy; Halfway (Current) Anticoagulant Treatment Discharge Disposition: Home or Self Care 06/09/2022 10:30 AM CDT Anticoagulation Visit Department of Anticoagulation in [place], [place] [address] [place] [address] Soheila Zapata P.A.-C., M.S. Atrial Fibrillation Unspecified (Primary Dx); Monitoring For Therapeutic Drug Therapy; Halfway (Current) Anticoagulant Treatment 06/03/2022 9:45 AM CDT Office Visit Department of Cardiovascular Diseases in [address] [address] Roberto Dumont APRN, C.N.P. Atrial Fibrillation Unspecified (Primary Dx); Halfway (Current) Anticoagulant Treatment; Cardiomyopathy Dilated (HCC); Hyperlipidemia On Treatment; Hypertensive Heart With Heart Failure And Chronic Kidney Disease (CKD) Stage 3a Glomerular Filtration Rate (GFR) 45 To 59 (HCC) 06/01/2022 7:12 AM CDT - 06/01/2022 11:59 PM CDT Hospital Encounter Department of Cardiovascular Diseases in [address] [address] Roberto Dumont, TRIAGE LICENSED PRACTICAL NURSE, C.N.P. Cardiomyopathy Dilated (HCC) Discharge Disposition: Home or Self Care 05/12/2022 Orders Only [facility] Soheila Zapata P.A.-C., M.S. Deficiency Estrogen Post Menopausal 05/12/2022 9:20 AM [facility] - 05/12/2022 11:59 PM [facility] Hospital Encounter Department of Laboratory Medicine in [address] [address] Soheila Zapata P.A.-C., M.S. Atrial Fibrillation Unspecified; Monitoring For Therapeutic Drug Therapy; Halfway (Current) Anticoagulant Treatment Discharge Disposition: Home or Self Care 05/12/2022 10:00 AM [facility] Anticoagulation Visit Department of Anticoagulation in [place], [place] [address] [place] [phone] Soheila Zapata P.A.-C., M.S. Atrial Fibrillation Unspecified (Primary Dx); Monitoring For Therapeutic Drug Therapy; Debeaker (Current) Anticoagulant Treatment 04/29/2022 8:00 AM [facility] Anticoagulation Visit Department of Anticoagulation in [place], [place] [address] [place] [phone] Soheila Zapata P.A.-C., M.S. Atrial Fibrillation Unspecified (Primary Dx); Monitoring For Therapeutic Drug Therapy; Halfway (Current) Anticoagulant Treatment 04/28/2022 Clinical Communication Department of Anticoagulation in [place], [place] [address] [place] [phone] Hemalatha Lewis, RAziza 04/28/2022 2:42 PM [facility] - 04/28/2022 11:59 PM [facility] Hospital Encounter Department of Laboratory Medicine in [address] [address] Soheila Zapata P.A.-C., M.S. Atrial Fibrillation Unspecified; Monitoring For Therapeutic Drug Therapy; Halfway (Current) Anticoagulant Treatment Discharge Disposition: Home or Self Care 04/21/2022 10:25 AM [facility] - 04/21/2022 11:59 PM [facility] Hospital Encounter Department of Laboratory Medicine in [address] [address] Roberto Dumont APRN, C.N.P. Atrial Fibrillation Unspecified Discharge Disposition: Home or Self Care 04/21/2022 9:50 AM [facility] - 04/21/2022 10:24 AM [facility] Hospital Encounter Department of Laboratory Medicine in [address] [address] Soheila Zapata P.A.-C., M.S. Atrial Fibrillation Unspecified; Monitoring For Therapeutic Drug Therapy; Debeaker (Current) Anticoagulant Treatment Discharge Disposition: Home or Self Care 04/21/2022 10:30 AM [facility] Anticoagulation Visit Department of Anticoagulation in [place], [place] [address] [place] [address] Soheila Zapata P.A.-C., M.S. Atrial Fibrillation Unspecified (Primary Dx); Monitoring For Therapeutic Drug Therapy; Halfway (Current) Anticoagulant Treatment 04/16/2022 Orders Only Department of Cardiovascular Diseases in [address] [address] Roberto Dumotn APRN, C.N.P. 04/15/2022 Refill Department of Internal Medicine in [address] [address] Soheila Zapata P.A.-C., M.S. Med Refill 04/15/2022 Refill Department of Internal Medicine in [address] [address] Addie De La Garza M.D. Med Refill 04/10/2022 Refill Department of Internal Medicine in [address] [address] Soheila Zapata P.A.-C., M.S. Med Refill 04/07/2022 10:10 AM [facility] - 04/07/2022 10:17 AM [facility] Hospital Encounter Department of Laboratory Medicine in [address] [address] Soheila Zapata P.A.-C., M.S. Atrial Fibrillation Unspecified; Monitoring For Therapeutic Drug Therapy; Halfway (Current) Anticoagulant Treatment Discharge Disposition: Home or Self Care 04/07/2022 10:50 AM [facility] Anticoagulation Visit Department of Anticoagulation in [place], [place] [address] [place] [address] Soheila Zapata P.A.-C., M.S. Atrial Fibrillation Unspecified (Primary Dx); Monitoring For Therapeutic Drug Therapy; Debeaker (Current) Anticoagulant Treatment 04/07/2022 10:18 AM [facility] - 04/07/2022 11:59 PM [facility] Hospital Encounter Department of Cardiovascular Diseases in [address] [address] Roberto Dumont APRN, C.N.P. Atrial Fibrillation Other Persistent (HCC) Discharge Disposition: Home or Self Care 03/31/2022 Clinical Communication Department of Internal Medicine in [address] [address] Soheila Zapata P.A.-C., M.S. 03/31/2022 Nurse Triage Department of Internal Medicine in [address] [address] Tammy Ramos M.S.N., R.N. Eye Problem 03/31/2022 12:30 PM [facility] Anticoagulation Visit Department of Anticoagulation in [address] [address] Soheila Zapata P.A.-C., M.S. Atrial Fibrillation Unspecified (Primary Dx); Monitoring For Therapeutic Drug Therapy; Halfway (Current) Anticoagulant Treatment 03/31/2022 11:50 AM [facility] - 03/31/2022 11:59 PM [facility] Hospital Encounter Department of Laboratory Medicine in [address] [address] Soheila Zapata P.A.-C., M.S. Atrial Fibrillation Unspecified; Monitoring For Therapeutic Drug Therapy; Halfway (Current) Anticoagulant Treatment Discharge Disposition: Home or Self Care 03/27/2022 Clinical Communication Department of Anticoagulation in [address] [address] Alesha Gonzalez R.N. Anticoagulation 03/24/2022 1:30 PM [facility] Anticoagulation Visit Department of Anticoagulation in [address] [address] Soheila Zapata P.A.-C., M.S. Atrial Fibrillation Unspecified (Primary Dx); Monitoring For Therapeutic Drug Therapy; Halfway (Current) Anticoagulant Treatment 03/24/2022 12:44 PM [facility] - 03/24/2022 11:59 PM [facility] Hospital Encounter Department of Laboratory Medicine in [address] [address] Soheila Zapata P.A.-CHowie, M.S. Atrial Fibrillation Unspecified; Monitoring For Therapeutic Drug Therapy; Halfway (Current) Anticoagulant Treatment Discharge Disposition: Home or Self Care 03/16/2022 10:30 AM [facility] Anticoagulation Visit Department of Anticoagulation in [place], [place] [address] [place] [phone] Soheila Zapata P.A.-C., M.S. Atrial Fibrillation Unspecified (Primary Dx); Monitoring For Therapeutic Drug Therapy; Halfway (Current) Anticoagulant Treatment 03/16/2022 9:50 AM [facility] - 03/16/2022 11:59 PM [facility] Hospital Encounter Department of Laboratory Medicine in [address] [address] Soheila Zapata P.A.-C., M.S. Atrial Fibrillation Unspecified; Monitoring For Therapeutic Drug Therapy; Debeaker (Current) Anticoagulant Treatment Discharge Disposition: Home or Self Care 03/06/2022 10:50 AM [facility] - 03/06/2022 11:59 PM [facility] Hospital Encounter Department of Laboratory Medicine in [address] [address] Soheila Zapata P.A.-C., M.S. Atrial Fibrillation Unspecified; Monitoring For Therapeutic Drug Therapy; Debeaker (Current) Anticoagulant Treatment Discharge Disposition: Home or Self Care 03/06/2022 11:40 AM [facility] Anticoagulation Visit Department of Anticoagulation in [place], [place] [address] [place] [phone] Soheila Zapata P.A.-C., M.S. Atrial Fibrillation Unspecified (Primary Dx); Monitoring For Therapeutic Drug Therapy; Halfway (Current) Anticoagulant Treatment 02/20/2022 10:50 AM [facility] - 02/20/2022 11:59 PM [facility] Hospital Encounter Department of Laboratory Medicine in [address] [address] Soheila Zapata P.A.-C., M.S. Atrial Fibrillation Unspecified; Monitoring For Therapeutic Drug Therapy; Debeaker (Current) Anticoagulant Treatment Discharge Disposition: Home or Self Care 02/20/2022 11:30 AM [facility] Anticoagulation Visit Department of Anticoagulation in [place], [place] [address] [place] [phone] Soheila Zapata P.A.-C., M.S. Atrial Fibrillation Unspecified (Primary Dx); Monitoring For Therapeutic Drug Therapy; Debeaker (Current) Anticoagulant Treatment 02/13/2022 11:20 AM [facility] - 02/13/2022 11:59 PM [facility] Hospital Encounter Department of Laboratory Medicine in [address] [address] Soheila Zapata P.A.-C., M.S. Atrial Fibrillation Unspecified; Monitoring For Therapeutic Drug Therapy; Debeaker (Current) Anticoagulant Treatment Discharge Disposition: Home or Self Care 02/13/2022 12:00 PM [facility] Anticoagulation Visit Department of Anticoagulation in [place], [place] [address] [place] [phone] Soheila Zapata P.A.-C., M.S. Atrial Fibrillation Unspecified (Primary Dx); Monitoring For Therapeutic Drug Therapy; Debeaker (Current) Anticoagulant Treatment 02/09/2022 8:00 AM [facility] Anticoagulation Visit Department of Anticoagulation in [place], [place] [address] [place] [phone] Soheila Zapata P.A.-C., M.S. Atrial Fibrillation Unspecified (Primary Dx); Monitoring For Therapeutic Drug Therapy; Halfway (Current) Anticoagulant Treatment 02/06/2022 Clinical Communication Department of Anticoagulation in [place], [place] [address] [place] [phone] Trish Chambers R.N. Anticoagulation (Unable to reach ) 02/06/2022 2:40 PM [facility] - 02/06/2022 11:59 PM [facility] Hospital Encounter Department of Laboratory Medicine in [address] [address] Soheila Zapata P.A.-C., M.S. Atrial Fibrillation Unspecified; Monitoring For Therapeutic Drug Therapy; Debeaker (Current) Anticoagulant Treatment Discharge Disposition: Home or Self Care 02/03/2022 1:00 PM [facility] Virtual Visit Department of Patient Education in [place], [place] [address] [place] [phone] Soheila Zapata P.A.-C., M.S. Genesis Hooper, M.S. Atrial Fibrillation Unspecified; Monitoring For Therapeutic Drug Therapy; Debeaker (Current) Anticoagulant Treatment 02/02/2022 12:50 PM [facility] Anticoagulation Visit Department of Anticoagulation in [place], [place] [address] [place] [phone] Soheila Zapata P.A.-C., M.S. Atrial Fibrillation Unspecified (Primary Dx); Monitoring For Therapeutic Drug Therapy; Debeaker (Current) Anticoagulant Treatment 02/02/2022 12:06 PM [facility] - 02/02/2022 11:59 PM [facility] Hospital Encounter Department of Laboratory Medicine in [place], [place] [address] [place] [phone] Soheila Zapata P.A.-C., M.S. Atrial Fibrillation Unspecified; Monitoring For Therapeutic Drug Therapy; Halfway (Current) Anticoagulant Treatment Discharge Disposition: Home or Self Care 01/23/2022 3:40 PM [facility] - 01/23/2022 11:59 PM [facility] Hospital Encounter Department of Laboratory Medicine in [place], [place] [address] [phone] Soheila Zapata P.A.-C., M.S. Atrial Fibrillation Unspecified; Monitoring For Therapeutic Drug Therapy; Halfway (Current) Anticoagulant Treatment Discharge Disposition: Home or Self Care 01/23/2022 4:20 PM [facility] Anticoagulation Visit Department of Anticoagulation in [place], [place] [address] [place] [phone] Soheila Zapata P.A.-C., M.S. Atrial Fibrillation Unspecified (Primary Dx); Monitoring For Therapeutic Drug Therapy; Halfway (Current) Anticoagulant Treatment 01/20/2022 Clinical Communication Department of Anticoagulation in [place], [place] [address] [place] [phone] Iris Singh Anticoagulation (Unable to reach ) 01/16/2022 10:50 AM [facility] Anticoagulation Visit Department of Anticoagulation in [place], [place] [address] [place] [phone] Soheila Zapata P.A.-C., M.S. Atrial Fibrillation Unspecified (Primary Dx); Monitoring For Therapeutic Drug Therapy; Halfway (Current) Anticoagulant Treatment 01/15/2022 Clinical Communication Department of Anticoagulation in [place], [place] [address] [place] [phone] Angela Shukla, RAziza Anticoagulation (Unable to reach) 01/15/2022 11:20 AM [facility] - 01/15/2022 11:59 PM [facility] Hospital Encounter Department of Laboratory Medicine in [address] [phone] Soheila Zapata P.A.-C., M.S. Atrial Fibrillation Unspecified; Monitoring For Therapeutic Drug Therapy; Halfway (Current) Anticoagulant Treatment Discharge Disposition: Home or Self Care 01/14/2022 11:30 AM [facility] Office Visit Department of Physical Medicine and Rehabilitation in [place], [place] [address], [place] [address] Eder Torres M.D. 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 Atrial Fibrillation Unspecified (Primary Dx); Monitoring For Therapeutic Drug Therapy; Halfway (Current) Anticoagulant Treatment 01/12/2022 1:40 PM [facility] - 01/12/2022 11:59 PM [facility] Hospital Encounter Department of Laboratory Medicine in [address] [address] Soheila Zapata P.A.-C., M.S. Atrial Fibrillation Unspecified; Monitoring For Therapeutic Drug Therapy; Halfway (Current) Anticoagulant Treatment Discharge Disposition: Home or Self Care 01/07/2022 Clinical Communication Department of Anticoagulation in [place], [place] [address] [place] [address] Soham Chino RAziza Anticoagulation (Welcome call) 01/06/2022 Orders Only Department of Anticoagulation in [place], [place] [address] [place] [address] Soham Chino R.NHowie Atrial Fibrillation Unspecified (Primary Dx); Debeaker (Current) Anticoagulant Treatment 12/30/2021 2:09 PM CDT - 12/30/2021 11:59 PM CDT Hospital Encounter Department of Laboratory Medicine in [address] [phone] Roberto Dumont APRN, C.N.P. Cardiomyopathy Dilated (HCC); Irregular Pulse Discharge Disposition: Home or Self Care 12/30/2021 3:00 PM CDT Nurse Only Department of Family Medicine, [facility], in [place], [place] [address] [place] [phone] Soheila Zapata P.A.-C., M.S. Nga Gallagher, L.P.N. Nurse Visit (BP check with home device validation) 12/30/2021 1:30 PM CDT Office Visit Department of Cardiovascular Diseases in [address] [address] Roberto Dumont APRN, C.N.P. Cardiomyopathy Dilated (HCC) (Primary Dx); Irregular Pulse; Hypertensive Heart With Heart Failure And Chronic Kidney Disease (CKD) Stage 3a Glomerular Filtration Rate (GFR) 45 To 59 (HCC); Atrial Fibrillation Other Persistent (HCC) 12/25/2021 2:25 PM CDT - 12/25/2021 4:01 PM CDT Hospital Encounter Department of Radiology in [address] [phone] Eder Torres M.D. Lumbago With Sciatica Left Side; Spondylolysis Lumbar Region Discharge Disposition: Home or Self Care 12/17/2021 2:00 PM CDT Comprehensive Visit Department of Physical Medicine and Rehabilitation in [address] [address] Eder Torres M.D. Spondylolysis Lumbar Region (Primary Dx); Lumbago With Sciatica Left Side; Spinal Stenosis Lumbar Region Without Neurogenic Claudication 12/14/2021 Refill Department of Internal Medicine in [address] [phone] Addie De La Garza M.D. Med Refill 12/10/2021 Orders Only Department of Internal Medicine in [address] [phone] Soheila Zapata P.A.-C., M.S. Screening Colon Cancer Average Risk 12/09/2021 2:00 PM CDT Office Visit Department of Internal Medicine in [address] [phone] Soheila Zapata P.A.-Ashish., M.S. Radiculopathy Sacral (Primary Dx); Radiculopathy Lumbar Fifth Left; Cardiomyopathy Dilated (HCC); Hypertensive Heart With Heart Failure And Chronic Kidney Disease (CKD) Stage 3a Glomerular Filtration Rate (GFR) 45 To 59 (HCC); Screening Colon Cancer Average Risk; Pain Foot Left 12/09/2021 2:45 PM CDT - 12/09/2021 11:59 PM CDT Hospital Encounter Department of Radiology in [address] [phone] Soheila Zapata P.A.-C., M.S. Maintenance Health Adult Discharge Disposition: Home or Self Care 11/18/2021 Clinical Communication Department of Internal Medicine in [address] [address] Soheila Zapata P.A.-C., M.S. Pain 11/06/2021 2:35 PM CDT - 11/06/2021 11:59 PM CDT Hospital Encounter Department of Laboratory Medicine in [address] [address] Soheila Zapata P.A.-C., M.S. Hypertensive Chronic Kidney Disease (CKD) Stage 3a Glomerular Filtration Rate (GFR) 45 To 59 (HCC); Hyperlipidemia On Treatment; Maintenance Health Adult; Screening Examination Diabetes Mellitus Discharge Disposition: Home or Self Care 11/06/2021 1:30 PM CDT Office Visit Department of Internal Medicine in [address] [address] Soheila Zapata P.A.-C., M.S. Radiculopathy Lumbar Fifth Left (Primary Dx); Radiculopathy Sacral; Cardiomyopathy Dilated (HCC); Hypertensive Chronic Kidney Disease (CKD) Stage 3a Glomerular Filtration Rate (GFR) 45 To 59 (HCC); Hyperlipidemia On Treatment; Screening Examination Diabetes Mellitus; Maintenance Health Adult 11/04/2021 9:30 AM CDT Office Visit Department of Internal Medicine in [address] [phone] Stevan Bhakta D.O. Procedure And Treatment Not Carried Out Due To Patient Leaving Prior To Being Seen By Health Care Provider (Primary Dx) 10/16/2021 Clinical Communication Department of Internal Medicine in [address] [address] Ermelinda Valle M.D. 10/16/2021 Clinical Communication Department of Internal Medicine in [address] [address] Addie De La Garza M.D. [facility] 09/26/2021 Clinical Communication Department of Internal Medicine in [address] [address] Stevan Bhakta D.O. Form Review ([facility] PT - 09/25/21) 09/17/2021 Clinical Communication Department of Internal Medicine in [address] [address] Ermelinda Valle M.D. 08/21/2021 Clinical Communication Department of Internal Medicine in [address] [address] Stevan Bhakta D.O. Form Review ([employer]) 08/19/2021 9:45 AM CDT Office Visit Department of Internal Medicine in [address] [address] Ermelinda Valle M.D. Lumbago With Sciatica Left Side (Primary Dx) 08/15/2021 Clinical Communication Department of Internal Medicine in [address] [address] Stevan Bhakta D.O. 08/12/2021 Orders Only [facility] Ermelinda Kay M.D. Deficiency Estrogen Post Menopausal 07/23/2021 Orders Only [facility] Stevan Bhakta D.O. 06/26/2021 2:30 PM CDT Office Visit Department of Internal Medicine in [address] [place] [address] Addie De La Garza M.D. Migraine Headache (Primary Dx); Chronic Kidney Disease (CKD), Stage 3 Unspecified (HCC); Hyperlipidemia On Treatment; Rash; Hypertensive Chronic Kidney Disease (CKD) Stage 3a Glomerular Filtration Rate (GFR) 45 To 59 05/07/2021 Orders Only [facility] PCP [facility] Stevan Bhakta D.O. Monitoring For Therapeutic Drug Therapy 01/14/2021 Orders Only [facility] SEMN PCP [facility] Stevan Bhakta D.O. Screening Cancer Colon 01/14/2021 Orders [facility] Stevan Bhakta D.O. Screening Cancer Colon 12/31/2020 Orders Only [facility] Ermelinda Kay M.D. 11/12/2020 Orders Only [facility] SEMN PCP [facility] Stevan Bhakta D.Anne. Screening Mammogram Breast Cancer; Deficiency Estrogen Post Menopausal 11/04/2020 Clinical Communication Division of [facility] Internal Medicine, [facility] in [place], [place] [address] [place] [address] Nancy Lovett R.N. COVID Nurse Line 11/04/2020 Clinical Communication Department of Internal Medicine in [place], [place] [address] [phone] Stevan Bhakta D.O. COVID Inquiry 08/19/2020 Refill Department of Internal Medicine in [place], [place] [address] [phone] Stevan Bhakta D.O. Med Refill 06/19/2020 Clinical Communication Department of Internal Medicine in [place], [place] [address] [place] [address] Stevan Bhakta D.O. 06/06/2020 Clinical Communication Department of Internal Medicine in [address] [address] Butch Velazquez M.D. 05/27/2020 3:17 PM CDT - 05/27/2020 11:59 PM CDT Hospital Encounter Department of Cardiovascular Diseases in [address] [phone] Butch Velazquez M.D. Cardiomyopathy Dilated (HCC) Discharge Disposition: Home or Self Care 05/17/2020 10:45 AM [employer] [facility] - 05/17/2020 10:53 AM [employer] [employer] [facility] Hospital Encounter Department of Laboratory Medicine in [address] [address] Butch Velazquez M.D. Cardiomyopathy Dilated (HCC) Discharge Disposition: Home or Self Care 05/17/2020 10:54 AM [employer]AMES - 05/17/2020 11:59 PM [employer] [facility] Hospital Encounter Department of Radiology in [address] [address] Butch Velazquez M.D. Pain Low Back Discharge Disposition: Home or Self Care 05/16/2020 2:00 PM [employer] Office Visit Department of Internal Medicine in [address] [address] Butch Velazquez M.D. Personal History Of Infectious And Parasitic Disease (COVID-19) (Primary Dx); Radiculopathy Lumbar; Pain Low Back; Cardiomyopathy Dilated (HCC); Chronic Kidney Disease (CKD), Stage 3 Unspecified (HCC) 05/13/2020 Clinical Communication Department of Internal Medicine in [address] [address] Stevan Bhakta D.O. COVID Inquiry 03/14/2020 Orders Only Department of Internal Medicine in [address] [phone] Butch Velazquez M.D. 02/12/2020 Orders Only [facility] Stevan Kaufman D.O. Deficiency Estrogen Post Menopausal; Screening Examination Diabetes Mellitus; Monitoring For Therapeutic Drug Therapy 11/27/2019 Clinical Communication Department of Internal Medicine in [place], [place] [address] [place] [phone] Stevan Bhakta D.O. Results 11/25/2019 External Outreach Department of Internal Medicine in [place], [place] [address] [place] [phone] Patrick Erickson D.O. Infection Upper Respiratory (Primary Dx) Discharge Disposition: Home or Self Care 11/25/2019 Clinical Communication Division of [facility], [facility] in [place], [place] [address] [place] [address] Medina Rocha R.N. COVID Nurse Line 09/29/2019 Clinical Communication Department of Internal Medicine in [place], [place] [address] [place] [phone] Stevan Bhakta D.O. Results 09/28/2019 External Outreach Department of Internal Medicine in [place], [place] [address] [place] [phone] Patrick Erickson D.O. Infection Upper Respiratory (Primary Dx) Discharge Disposition: Home or Self Care 08/23/2019 Orders Only [facility] Stevan Kaufman D.O. Screening Mammogram Breast Cancer 12/14/2018 Orders Only [facility] Stevan Kaufman D.O. Screening Examination Diabetes Mellitus; Monitoring For Therapeutic Drug Therapy 11/09/2018 Refill Department of Cardiovascular Diseases in [place], [place] [address], [place] [address] Roberto Dumont APRN, C.N.P. Med Refill 10/26/2018 2:30 PM CDT Office Visit Department of Internal Medicine in [address] [address] Butch Velazquez M.D. Neuralgia Post Herpetic (Primary Dx) 09/23/2018 8:30 AM CDT Office Visit Urgent Care in [address] [address] Omi Talbot P.A.-Darryl, P.A. Herpes Zoster (Primary Dx); Insect Bite Nonvenomous Abdominal Wall Initial 05/12/2018 Orders Only [facility] PCP [facility] ER Stevan Bhakta, D.O. Screening Mammogram Breast Cancer 01/25/2018 Refill Department of Cardiovascular Diseases in [address] [phone] Roberto Dumont APRN, C.N.P. Med Refill 01/05/2018 Orders Only Department of Internal Medicine in [address] [address] Stevan Bhakta, D.O. Deficiency Estrogen Post Menopausal; Screening Mammogram Average Risk Patient 12/30/2017 12:30 PM CDT Office Visit Department of Cardiovascular Diseases in [address] [phone] Tariq Estrella M.D. Brandl, Adam C, APRN, C.N.P. Cardiomyopathy Dilated (HCC); Dyslipidemia 12/28/2017 12:00 PM CDT - 12/28/2017 11:59 PM CDT Hospital Encounter Department of Laboratory Medicine in [address] [phone] Tariq Estrella M.D. Cardiomyopathy Dilated (HCC) Discharge Disposition: Home or Self Care 07/29/2017 Clinical Communication Department of Cardiovascular Diseases in [place], [place] [address] [place] [address] Tariq Estrella M.D. Results 07/28/2017 8:34 AM CDT - 07/28/2017 11:59 PM CDT Hospital Encounter Department of Cardiovascular Diseases in [address] [address] Tariq Estrella M.D. Cardiomyopathy Dilated (HCC) Discharge Disposition: Home or Self Care 07/21/2017 Refill Department of Cardiovascular Diseases in [address] [address] Tariq Estrella M.D. Med Refill 07/19/2017 11:23 AM CDT - 07/19/2017 11:59 PM CDT Hospital Encounter Department of Radiology in [address] [address] Bayron Fernandez M.D. Pain Low Back Acute Discharge Disposition: Home or Self Care 07/19/2017 12:00 PM CDT Office Visit Urgent Care in [address] [address] Bayron Fernandez M.D. Pain Low Back Acute (Primary Dx) 07/02/2017 Clinical Communication Department of Cardiovascular Diseases in [address] [address] Willis Lopez M.HZac Communication 07/02/2017 Clinical Communication Department of Internal Medicine in [address] [address] Elgin Armas M.D. Communication 07/02/2017 10:45 AM CDT Office Visit Department of Cardiovascular Diseases in [address] [address] Tariq Estrella M.D. Cardiomyopathy Dilated (HCC) (Primary Dx); Dyslipidemia 06/30/2017 7:57 AM CDT - 06/30/2017 11:59 PM CDT Hospital Encounter Department of Laboratory Medicine in [address] [address] Elgin Armas M.D. Failure Heart (HCC) Discharge Disposition: Home or Self Care 05/19/2017 Orders Only Department of Internal Medicine in [address] [address] Elgin Armas M.D. Diabetes Mellitus Type 2 (HCC) (Primary Dx); Screening Mammogram Average Risk Patient 12/18/2016 Orders Only Department of Cardiovascular Diseases in [address] [address] Tariq Estrella M.D. Failure Heart (HCC) 08/17/2016 [...] LAB Tariq Estrella M.D. 02/13/2015 10:51 AM [employer] - 02/13/2015 11:59 PM [employer] Hospital Encounter HX [facility] Braulio Simmons M.D. 02/11/2015 9:17 AM [employer] - 02/11/2015 11:59 PM [employer] Hospital Encounter HX [facility] LAB Braulio [...] [facility] Roberto Dumont APRN, C.N.P. 08/17/2014 1:54 PM CDT - [...] PM CDT Hospital Encounter HX [facility] Braulio Callahan M.D. 08/15/2014 7:51 AM CDT - 08/15/2014 11:59 PM CDT Hospital Encounter HX [facility] CARDIOLOG Tariq Estrella M.D. 08/08/2014 12:11 PM CDT - 08/08/2014 11:59 PM CDT Hospital Encounter HX [facility] C[facility] Tariq Estrella M.D. 08/03/2014 9:12 AM CDT - 08/03/2014 11:59 PM CDT Hospital Encounter HX [facility] ECHO Braulio Simmons M.D. 08/02/2014 11:20 AM CDT - 08/02/2014 11:59 PM CDT Hospital Encounter HX [facility] INTERNMED Braulio Simmons M.D. 08/01/2014 5:33 PM CDT - 08/01/2014 11:59 PM CDT Hospital Encounter HX Beronica Carey, P.A. 08/01/2014 3:29 PM CDT - 08/01/2014 11:59 PM CDT Hospital Encounter HX [facility] U[facility]ENTCAR Bayron Fernandez M.D. 07/20/2014 1:11 PM CDT - 07/20/2014 11:59 PM CDT Hospital Encounter HX [facility] Dutch Kay M.D. 10/25/2006 Hospital Encounter HX [facility] FAMILYPRA Sher Hodges M.D. Allergies Active Allergy Reactions Criticality Noted Date Comments Codeine Hives (Reselect Reaction) 07/20/2014 Darling Shortness of breath (Reselect Reaction) 12/09/2021 [facility] Medications CYANOCOBALAMIN, VITAMIN B-12, ORAL Vitamin B-12 016 Active CHOLECALCIFEROL , VITAMIN D3, ORAL Take 1 capsule by mouth daily. 016 Active cyclobenzaprine (FLEXERIL) 5 mg tablet Take 1 tablet (5 mg total) by mouth at bedtime as needed for muscle spasms. 30 tablet 022 Active mbldbsk-aadx-wo tah-kydc-bzxvna 100 mg-150 mg- 50 mg-150 mg capsule Take by mouth 3 (three) times a day. Active cranberry conc/C/Bacill coag (CRANBERRY URINARY TRACT HEALTH ORAL) Take 1 tablet by mouth daily. Active atorvastatin (LIPITOR) 10 mg tablet take 1 tablet every day 90 tablet 3 024 Active lisinopriL (PRINIVIL,ZESTR IL) 40 mg tablet take 1 tablet every day 90 tablet 3 024 Active furosemide (LASIX) 20 mg tablet TAKE 1 TABLET (20 MG TOTAL) BY MOUTH DAILY. MAY TAKE AN EXTRA DOSE NEEDED FOR WEIGHT GAIN/EDEMA 100 tablet 3 024 Active carvediloL (COREG) 6.25 mg tablet take 1 tablet twice daily 180 tablet 3 024 Active apixaban (Eliquis) 5 mg tablet Take 1 tablet (5 mg total) by mouth 2 (two) times a day. 200 tablet 3 024 Active ibuprofen (ADVIL,MOTRIN) 200 mg tablet Take by mouth every 6 (six) hours as needed. 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 120 tablet 3 024 2023 Discontinued apixaban (Eliquis) 5 mg tablet Take 1 tablet (5 mg total) by mouth 2 (two) times a day. 180 tablet 3 024 2023 Discontinued(R jaclyn) Active Problems Problem Noted Date Diagnosed Date Atrial Fibrillation Paroxysmal 01/06/2022 Monitoring For Therapeutic Drug Therapy 01/07/20 22 Debeaker (Current) Anticoagulant Treatment 03/2021 Radiculopathy Lumbar Fifth [...] disease Mother abiel dahl Diabetes Mother abiel mortensenhl Hypertension Mother abiel dahl Hypothyroidism Mother abiel dahl Obesity Mother abiel dahl Dementia Paternal Grandmother trina ramos Obesity Paternal Grandmother trina ramos Asthma Son 1 janell alberto not sure Migraines Son 2 [place] Migraines Son 3 genesis Relation Name Status Comments Daughter 1 genesis alberto Daughter 2 Bre Mother abiel ramos Paternal Grandmother trina ramos Son 1 janell alberto Son 2 [place] Son 3 genesis Social History Smoking Status as of 12/24/2023 Tobacco Use Types Packs/Day Years Used Date Smoking Tobacco: Never Assessed [facility] Utilities Answer Date Recorded In the past 12 months has [facility] [employer], gas, oil, or water itembase threatened to shut off services in your [...] any clubs o r organizations such as pentecostal groups, unions, fraternal or athletic groups, or [...] Answer Date Recorded PHQ-2 Score 0 04/27/2023 [facility] - [...] Assigned at Female 12/19/2021 3:32 AM CDT Legal Sex Female 9:57 PM [employer] Gender Identity Female 09/24/2022 9:59 PM CDT [...] 163 cm (5' 4.17) 04/27/2023 11:14 AM [employer]AMES Body Mass Index 32.82 04/27/2023 11:14 AM [employer] Plan of Treatment Upcoming Encounters Date Type Department Care Team (Latest Contact Info) Description 12/24/2023 10:10 AM CDT Appointment Department of Laboratory Medicine in [place], [place] [address] [place] [phone] Patrick Erickson D.O. [address] [phone] 12/24/2023 3:50 PM CDT Appointment Department of Laboratory Medicine in [place], [place] [address] [place] [phone] Patrick Erickson D.O. [address] [phone] 12/24/2023 4:20 PM CDT Anticoagulation Visit Department of Anticoagulation in [place], [place] [address] [place] [address] Soheila Zapata P.A.-C., M.S. [address] [phone] Arrived 12/28/2023 1:00 PM CDT Office Visit Department of Internal Medicine in [place], [place] [address] [address] Patrick Erickson D.O. [address] [address] Procedures Procedure Name Priority Date/Time Associated Diagnosis Comments INR REFLEX, POCT, B Routine 12/20/2023 3:59 PM CDT Hypertensive Heart And Chronic Kidney Disease With Heart Failure And Stage 1 To 4 Chronic Kidney Disease Or Unspecified Chronic Kidney Disease (HCC) Hyperlipidemia On Treatment Atrial Fibrillation Paroxysmal (HCC) Monitoring For Therapeutic Drug Therapy Debeaker (Current) Anticoagulant Treatment COMPREHENSIVE METABOLIC PANEL, S/P Routine 12/15/2023 5:00 PM CDT Atrial Fibrillation Paroxysmal (HCC) INR REFLEX, POCT, B Routine 12/13/2023 4:21 [...] Therapeutic Drug Therapy Halfway (Current) Anticoagulant Treatment EXTM HOME SARS CORONAVIRUS-2 (COVID-19) ANTIGEN, V Routine 11/26/2023 6:00 PM CDT INR REFLEX, POCT, B Routine 11/22/2023 3:52 PM CDT Hypertensive Heart And Chronic Kidney Disease With Heart Failure And Stage 1 To 4 Chronic Kidney Disease Or Unspecified Chronic Kidney Disease (HCC) Hyperlipidemia On Treatment Atrial Fibrillation Paroxysmal (HCC) Monitoring For Therapeutic Drug Therapy Debeaker (Current) Anticoagulant Treatment INR REFLEX, POCT, B Routine 11/12/2023 12:09 PM CDT Atrial Fibrillation Paroxysmal (HCC) Monitoring For Therapeutic Drug Therapy Halfway (Current) Anticoagulant Treatment INR REFLEX, POCT, B Routine 11/02/2023 2:58 PM CDT Hypertensive Heart And Chronic Kidney Disease With Heart Failure And Stage 1 To 4 Chronic Kidney Disease Or Unspecified Chronic Kidney Disease (HCC) Hyperlipidemia On Treatment Atrial Fibrillation Paroxysmal (HCC) Monitoring For Therapeutic Drug Therapy Debeaker (Current) Anticoagulant Treatment INR REFLEX, POCT, B Routine 10/28/2023 3:00 PM CDT Hypertensive Heart And Chronic Kidney Disease With Heart Failure And Stage 1 To 4 Chronic Kidney Disease Or Unspecified Chronic Kidney Disease (HCC) Hyperlipidemia On Treatment Atrial Fibrillation Paroxysmal (HCC) Monitoring For Therapeutic Drug Therapy Debeaker (Current) Anticoagulant Treatment INR REFLEX, POCT, B Routine 10/15/2023 3:09 PM CDT Hypertensive Heart And Chronic Kidney Disease With Heart Failure And Stage 1 To 4 Chronic Kidney Disease Or Unspecified Chronic Kidney Disease (HCC) Hyperlipidemia On Treatment Atrial Fibrillation Paroxysmal (HCC) Monitoring For Therapeutic Drug Therapy Halfway (Current) Anticoagulant Treatment INR REFLEX, POCT, B Routine 10/07/2023 2:55 PM CDT Atrial Fibrillation Paroxysmal (HCC) INR REFLEX, POCT, B Routine 10/01/2023 3:00 PM CDT Hypertensive Heart With Heart Failure And Chronic Kidney Disease (CKD) Stage 3a Glomerular Filtration Rate (GFR) 45 To 59 (HCC) Hyperlipidemia On Treatment Atrial Fibrillation Paroxysmal (HCC) Monitoring For Therapeutic Drug Therapy Debeaker (Current) Anticoagulant Treatment INR REFLEX, POCT, B Routine 09/24/2023 3:14 PM CDT 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 (CKD) Stage 3a Glomerular Filtration Rate (GFR) 45 To 59 (HCC) Hyperlipidemia On Treatment Atrial Fibrillation Paroxysmal (HCC) Monitoring For Therapeutic Drug Therapy Halfway (Current) Anticoagulant Treatment PROTHROMBIN TIME (PT), P Routine 09/21/2023 12:41 PM CDT INR REFLEX, POCT, B Routine 09/21/2023 12:39 PM CDT Hypertensive Heart With Heart Failure And Chronic Kidney Disease (CKD) Stage 3a Glomerular Filtration Rate (GFR) 45 To 59 (HCC) Hyperlipidemia On Treatment Atrial Fibrillation Paroxysmal (HCC) Monitoring For Therapeutic Drug Therapy Debeaker (Current) Anticoagulant Treatment INR REFLEX, POCT, B Routine 09/14/2023 1:00 PM CDT Hypertensive Heart With Heart Failure And Chronic Kidney Disease (CKD) Stage 3a Glomerular Filtration Rate (GFR) 45 To 59 (HCC) Hyperlipidemia On Treatment Atrial Fibrillation Paroxysmal (HCC) Monitoring For Therapeutic Drug Therapy Halfway (Current) Anticoagulant Treatment INR REFLEX, POCT, B Routine 09/08/2023 3:39 PM CDT Hypertensive Heart With Heart Failure And Chronic Kidney Disease (CKD) Stage 3a Glomerular Filtration Rate (GFR) 45 To 59 (HCC) Hyperlipidemia On Treatment Atrial Fibrillation Paroxysmal (HCC) Monitoring For Therapeutic Drug Therapy Halfway (Current) Anticoagulant Treatment INR REFLEX, POCT, B Routine 09/02/2023 3:09 PM CDT Hypertensive 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 (CKD) Stage 3a Glomerular Filtration Rate (GFR) 45 To 59 (HCC) Hyperlipidemia On Treatment Atrial Fibrillation Paroxysmal (HCC) Monitoring For Therapeutic Drug Therapy Halfway (Current) Anticoagulant Treatment INR REFLEX, POCT, B Routine 08/27/2023 2:01 PM CDT Hypertensive Heart With Heart Failure And Chronic Kidney Disease (CKD) Stage 3a Glomerular Filtration Rate (GFR) 45 To 59 (HCC) Hyperlipidemia On Treatment Atrial Fibrillation Paroxysmal (HCC) Monitoring For Therapeutic Drug Therapy Halfway (Current) Anticoagulant Treatment INR REFLEX, POCT, B Routine 08/24/2023 9:50 AM CDT Hypertensive Heart With Heart Failure And Chronic Kidney Disease (CKD) Stage 3a Glomerular Filtration Rate (GFR) 45 To 59 (HCC) Hyperlipidemia On Treatment Atrial Fibrillation Paroxysmal (HCC) Monitoring For Therapeutic Drug Therapy Debeaker (Current) Anticoagulant Treatment INR REFLEX, POCT, B Routine 08/16/2023 1:35 PM CDT Hypertensive Heart With Heart Failure And Chronic Kidney Disease (CKD) Stage 3a Glomerular Filtration Rate (GFR) 45 To 59 (HCC) Hyperlipidemia On Treatment Atrial Fibrillation Paroxysmal (HCC) Monitoring For Therapeutic Drug Therapy Debeaker (Current) Anticoagulant Treatment INR REFLEX, POCT, B Routine 08/05/2023 2:44 PM CDT Hypertensive Heart With Heart Failure And Chronic Kidney Disease (CKD) Stage 3a Glomerular Filtration Rate (GFR) 45 To 59 (HCC) Hyperlipidemia On Treatment Atrial Fibrillation Paroxysmal (HCC) Monitoring For Therapeutic Drug Therapy Debeaker (Current) Anticoagulant Treatment INR REFLEX, POCT, B Routine 07/06/2023 8:46 AM CDT Atrial Fibrillation Paroxysmal (HCC) Hypertensive Heart With Heart Failure And Chronic Kidney Disease (CKD) Stage 3a Glomerular Filtration Rate (GFR) 45 To 59 (HCC) Hyperlipidemia On Treatment Monitoring For Therapeutic Drug Therapy Halfway (Current) Anticoagulant Treatment LIPID PANEL, S Routine [...] Therapeutic Drug Therapy Halfway (Current) Anticoagulant Treatment INR REFLEX, POCT, B Routine 06/03/2023 1:26 PM CDT Hypertensive Heart With Heart Failure And Chronic Kidney Disease (CKD) Stage 3a Glomerular Filtration Rate (GFR) 45 To 59 (HCC) Hyperlipidemia On Treatment Atrial Fibrillation Paroxysmal (HCC) Monitoring For Therapeutic Drug Therapy Halfway (Current) Anticoagulant Treatment INR REFLEX, POCT, B Routine 05/27/2023 10:49 AM CDT Hypertensive Heart With Heart Failure And Chronic Kidney Disease (CKD) Stage 3a Glomerular Filtration Rate (GFR) 45 To 59 (HCC) Hyperlipidemia On Treatment Atrial Fibrillation Paroxysmal (HCC) Monitoring For Therapeutic Drug Therapy Debeaker (Current) Anticoagulant Treatment INR REFLEX, POCT, B Routine 05/21/2023 2:55 PM CDT Atrial Fibrillation Paroxysmal (HCC) INR REFLEX, POCT, B Routine 05/07/2023 1:04 PM [employer] Hypertensive Heart With Heart Failure And Chronic Kidney Disease (CKD) Stage 3a Glomerular Filtration Rate (GFR) 45 To 59 (HCC) Hyperlipidemia On Treatment Atrial Fibrillation Paroxysmal (HCC) Monitoring For Therapeutic Drug Therapy Halfway (Current) Anticoagulant Treatment INR REFLEX, POCT, B Routine 04/30/2023 12:42 PM [employer] FRAMES Hypertensive Heart With Heart Failure And Chronic Kidney Disease (CKD) Stage 3a Glomerular Filtration Rate (GFR) 45 To 59 (HCC) Hyperlipidemia On Treatment Atrial Fibrillation Paroxysmal (HCC) Monitoring For Therapeutic Drug Therapy Halfway (Current) Anticoagulant Treatment INR REFLEX, POCT, B Routine 04/02/2023 2:53 PM [employer] FRAMES Hypertensive Heart With Heart Failure And Chronic Kidney Disease (CKD) Stage 3a Glomerular Filtration Rate (GFR) 45 To 59 (HCC) Hyperlipidemia On Treatment Atrial Fibrillation Paroxysmal (HCC) Monitoring For Therapeutic Drug Therapy Halfway (Current) Anticoagulant Treatment INR REFLEX, POCT, B Routine 03/19/2023 3:19 PM [employer] FRAMES Hypertensive Heart With Heart Failure And Chronic Kidney Disease (CKD) Stage 3a Glomerular Filtration Rate (GFR) 45 To 59 (HCC) Monitoring For Therapeutic Drug Therapy Atrial Fibrillation Paroxysmal (HCC) INR REFLEX, POCT, B Routine 03/12/2023 3:11 PM [employer] FRAMES Atrial Fibrillation Paroxysmal (HCC) Monitoring For Therapeutic Drug Therapy Debeaker (Current) Anticoagulant Treatment INR REFLEX, POCT, B Routine 03/09/2023 2:21 PM [employer] FRAMES Atrial Fibrillation Paroxysmal (HCC) Monitoring For Therapeutic Drug Therapy Halfway (Current) Anticoagulant Treatment INR REFLEX, POCT, B Routine 03/05/2023 4:19 PM [employer] FRAMES Atrial Fibrillation Paroxysmal (HCC) Monitoring For Therapeutic Drug Therapy Halfway (Current) Anticoagulant Treatment INR REFLEX, POCT, B Routine 02/24/2023 5:02 PM [employer] FRAMES Atrial Fibrillation Paroxysmal (HCC) Monitoring For Therapeutic Drug Therapy Halfway (Current) Anticoagulant Treatment EXTM HOME SARS CORONAVIRUS-2 (COVID-19) ANTIGEN, V Routine 02/24/2023 12:58 PM [employer] FRAMES INR REFLEX, POCT, B Routine 02/16/2023 10:12 AM [employer] FRAMES Atrial Fibrillation Paroxysmal (HCC) Monitoring For Therapeutic Drug Therapy Debeaker (Current) Anticoagulant Treatment INR REFLEX, POCT, B Routine 02/02/2023 12:08 PM [employer] FRAMES Atrial Fibrillation Paroxysmal (HCC) Monitoring For Therapeutic Drug Therapy Halfway (Current) Anticoagulant Treatment INR REFLEX, POCT, B Routine 01/26/2023 9:30 AM [employer] FRAMES Atrial Fibrillation Paroxysmal (HCC) Monitoring For Therapeutic Drug Therapy Debeaker (Current) Anticoagulant Treatment INR REFLEX, POCT, B Routine 12/15/2022 11:37 AM CDT Atrial Fibrillation Paroxysmal (HCC) Monitoring For Therapeutic Drug Therapy Debeaker (Current) Anticoagulant Treatment INR REFLEX, POCT, B Routine 11/17/2022 2:18 PM CDT Atrial Fibrillation Paroxysmal (HCC) Monitoring For Therapeutic Drug Therapy Halfway (Current) Anticoagulant Treatment INR REFLEX, POCT, B Routine 11/10/2022 12:18 PM CDT Atrial Fibrillation Paroxysmal (HCC) Monitoring For Therapeutic Drug Therapy Halfway (Current) Anticoagulant Treatment INR REFLEX, POCT, B Routine 11/04/2022 2:23 PM CDT Atrial Fibrillation Paroxysmal (HCC) Monitoring For Therapeutic Drug Therapy Halfway (Current) Anticoagulant Treatment INR REFLEX, POCT, B Routine 10/27/2022 11:50 AM CDT Atrial Fibrillation Paroxysmal (HCC) Monitoring For Therapeutic Drug Therapy Debeaker (Current) Anticoagulant Treatment BASIC METABOLIC PANEL, S/P Routine 10/12/2022 10:09 AM CDT 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 3a Glomerular Filtration Rate (GFR) 45 To 59 (HCC) INR REFLEX, POCT, B Routine 10/12/2022 10:02 AM CDT Atrial Fibrillation Paroxysmal (HCC) Monitoring For Therapeutic Drug Therapy Debeaker (Current) Anticoagulant Treatment MD URINALYSIS AUTO W MICRO Routine 10/12/2022 10:02 [...] Therapeutic Drug Therapy Halfway (Current) Anticoagulant Treatment INR REFLEX, POCT, B Routine 09/17/2022 11:22 AM CDT Atrial Fibrillation Paroxysmal (HCC) Monitoring For Therapeutic Drug Therapy BASIC METABOLIC PANEL, S/P Routine 09/17/2022 11:22 AM CDT Monitoring For Therapeutic Drug Therapy INR REFLEX, POCT, B Routine 09/03/2022 10:43 AM CDT Atrial Fibrillation Unspecified (HCC) Monitoring For Therapeutic Drug Therapy Debeaker (Current) Anticoagulant Treatment INR REFLEX, POCT, B Routine 08/10/2022 11:16 AM CDT Atrial Fibrillation Unspecified (HCC) Monitoring For Therapeutic Drug Therapy Halfway (Current) Anticoagulant Treatment INR REFLEX, POCT, B Routine 08/10/2022 11:15 AM CDT INR REFLEX, POCT, B Routine 07/27/2022 3:15 PM CDT Atrial Fibrillation Unspecified (HCC) Monitoring For Therapeutic Drug Therapy Halfway (Current) Anticoagulant Treatment INR REFLEX, POCT, B Routine 07/27/2022 3:14 PM CDT INR REFLEX, POCT, B Routine 06/29/2022 10:21 AM CDT INR REFLEX, POCT, B Routine 06/29/2022 10:21 AM CDT Atrial Fibrillation Unspecified Monitoring For Therapeutic Drug Therapy Halfway (Current) Anticoagulant Treatment INR REFLEX, POCT, B Routine 06/19/2022 10:34 AM CDT Atrial Fibrillation Unspecified Monitoring For Therapeutic Drug Therapy Halfway (Current) Anticoagulant Treatment INR REFLEX, POCT, B Routine 06/19/2022 10:32 AM CDT PROTHROMBIN TIME (PT), P Routine 06/15/2022 10:13 AM CDT INR REFLEX, POCT, B Routine 06/15/2022 10:09 AM CDT INR REFLEX, POCT, B Routine 06/15/2022 10:09 AM CDT Atrial Fibrillation Unspecified Monitoring For Therapeutic Drug Therapy Halfway (Current) Anticoagulant Treatment INR REFLEX, POCT, B Routine 06/09/2022 10:16 AM CDT Atrial Fibrillation Unspecified Monitoring For Therapeutic Drug Therapy Halfway (Current) Anticoagulant Treatment PROTHROMBIN TIME (PT), P Routine 06/09/2022 10:16 AM CDT INR REFLEX, POCT, B Routine 06/09/2022 10:09 AM CDT (TTE) 2D ECHO DOPPLER COLOR Routine 06/01/2022 8:09 AM CDT Cardiomyopathy Dilated (HCC) INR REFLEX, POCT, B Routine 05/12/2022 10:01 AM [employer] Atrial Fibrillation Unspecified Monitoring For Therapeutic Drug Therapy Debeaker (Current) Anticoagulant Treatment INR REFLEX, POCT, B Routine 05/12/2022 10:00 AM [employer] INR REFLEX, POCT, B Routine 04/28/2022 2:50 PM [employer] INR REFLEX, POCT, B Routine 04/28/2022 2:50 PM [employer] Atrial Fibrillation Unspecified Monitoring For Therapeutic Drug Therapy Debeaker (Current) Anticoagulant Treatment INR REFLEX, POCT, B Routine 04/21/2022 10:55 AM [employer] Atrial Fibrillation Unspecified Monitoring For Therapeutic Drug Therapy Halfway (Current) Anticoagulant Treatment INR REFLEX, POCT, B Routine 04/21/2022 10:54 AM [employer]AMES HOLTER MONITOR - IN CLINIC COMMERCIAL SALES CONSULTANT Routine 04/08/2022 2:11 AM [employer] Atrial Fibrillation Other Persistent (HCC) INR REFLEX, POCT, B Routine 04/07/2022 10:32 AM [employer]AMES Atrial Fibrillation Unspecified Monitoring For Therapeutic Drug Therapy Halfway (Current) Anticoagulant Treatment INR REFLEX, POCT, B Routine 04/07/2022 10:31 AM [employer]AMES INR REFLEX, POCT, B Routine 03/31/2022 12:03 PM [employer]AMES Atrial Fibrillation Unspecified Monitoring For Therapeutic Drug Therapy Debeaker (Current) Anticoagulant Treatment INR REFLEX, POCT, B Routine 03/31/2022 12:02 PM [employer]AMES PROTHROMBIN TIME (PT), P Routine 03/24/2022 1:08 PM [employer]AMES INR REFLEX, POCT, B Routine 03/24/2022 1:06 PM [employer] Atrial Fibrillation Unspecified Monitoring For Therapeutic Drug Therapy Halfway (Current) Anticoagulant Treatment INR REFLEX, POCT, B Routine 03/24/2022 1:05 PM [employer] INR REFLEX, POCT, B Routine 03/16/2022 10:08 AM [employer]AMES INR REFLEX, POCT, B Routine 03/16/2022 10:08 AM [employer]AMES Atrial Fibrillation Unspecified Monitoring For Therapeutic Drug Therapy Halfway (Current) Anticoagulant Treatment INR REFLEX, POCT, B Routine 03/06/2022 11:06 AM [employer] Atrial Fibrillation Unspecified Monitoring For Therapeutic Drug Therapy Halfway (Current) Anticoagulant Treatment INR REFLEX, POCT, B Routine 03/06/2022 11:05 AM [employer]AMES INR REFLEX, POCT, B Routine 02/20/2022 11:30 AM [employer]AMES Atrial Fibrillation Unspecified Monitoring For Therapeutic Drug Therapy Debeaker (Current) Anticoagulant Treatment INR REFLEX, POCT, B Routine 02/20/2022 11:29 AM [employer]AMES INR REFLEX, POCT, B Routine 02/13/2022 11:36 AM [employer]AMES Atrial Fibrillation Unspecified Monitoring For Therapeutic Drug Therapy Debeaker (Current) Anticoagulant Treatment INR REFLEX, POCT, B Routine 02/13/2022 11:35 AM [employer]AMES INR REFLEX, POCT, B Routine 02/06/2022 2:50 PM [employer]AMES INR REFLEX, POCT, B Routine 02/06/2022 2:50 PM [employer] Atrial Fibrillation Unspecified Monitoring For Therapeutic Drug Therapy Halfway (Current) Anticoagulant Treatment INR REFLEX, POCT, B Routine 02/02/2022 12:15 PM [employer]AMES INR REFLEX, POCT, B Routine 02/02/2022 12:15 PM [employer] Atrial Fibrillation Unspecified Monitoring For Therapeutic Drug Therapy Halfway (Current) Anticoagulant Treatment INR REFLEX, POCT, B Routine 01/23/2022 3:58 PM [employer] Atrial Fibrillation Unspecified Monitoring For Therapeutic Drug Therapy Halfway (Current) Anticoagulant Treatment INR REFLEX, POCT, B Routine 01/23/2022 3:57 PM [employer] INR REFLEX, POCT, B Routine 01/15/2022 11:43 AM [employer] Atrial Fibrillation Unspecified Monitoring For Therapeutic Drug Therapy Halfway (Current) Anticoagulant Treatment INR REFLEX, POCT, B Routine 01/15/2022 11:42 AM [employer] INR REFLEX, POCT, B Routine 01/12/2022 2:19 PM [employer] INR REFLEX, POCT, B Routine 01/12/2022 2:19 PM [employer] Atrial Fibrillation Unspecified Monitoring For Therapeutic Drug Therapy Halfway (Current) Anticoagulant Treatment ECG Routine 12/30/2021 2:24 [...] 59 (HCC) HOLTER MONITOR - IN CLINIC COMMERCIAL SALES CONSULTANT Routine 05/27/2020 3:59 PM CDT Cardiomyopathy Dilated (HCC) MR LUMBAR SPINE WITHOUT IV CONTRAST RAD - Routine (most inpatients and all outpatients) 05/17/2020 11:41 AM [employer] Pain Low Back LIPID PANEL, S Routine 05/17/2020 10:53 AM [employer] Cardiomyopathy Dilated (HCC) THYROID-STIMULATING HORMONE-SENSITIVE (S-TSH) Routine 05/17/2020 10:53 AM [employer] Cardiomyopathy Dilated (HCC) BASIC METABOLIC PANEL, S/P Routine 05/17/2020 10:53 AM [employer] Cardiomyopathy Dilated (HCC) CBC WITH DIFFERENTIAL, B Routine 05/17/2020 10:53 AM [employer] Cardiomyopathy Dilated (HCC) SARS CORONAVIRUS-2 RNA, V [...] ELECTROLYTE PANEL, S Routine 02/11/2015 9:35 AM [employer]AMES BUN (BLOOD UREA NITROGEN), S/P Routine 02/11/2015 9:35 AM [employer] CREATININE WITH EGFR, S/P Routine 02/11/2015 9:35 AM [employer]AMES NT-PRO B-TYPE NATRIURETIC PEPTIDE (BNP), S Routine [...] CDT Results * INR Reflex, POCT, Blood (12/20/2023 3:59 PM CDT) Only the most recent of86 resultswithin the time period is included. INR Reflex, POCT, B 1.1 12/20/2023 3:56 PM CDT FB60 Comment: ----ADDITIONAL INFORMATION---- Standard intensity warfarin therapeutic range: 2.0 to 3.0 ?? High intensity warfarin therapeutic range: 2.5 to 3.5 Blood (Blood, Capillary) 12/20/2023 3:59 PM CDT 12/20/2023 3:56 PM CDT us Patrick Erickson D.O. LAB POCT ORDERABLES - CARLOS ENRIQUE CE Final Result [facility] [address] [place] [address], [facility] FB60 [facility] [place] [address] [place] [address] * (ABNORMAL) Comprehensive Metabolic Panel (12/15/2023 5:00 PM CDT) Potassium, P 4.6 3.6 - 5.2 mmol/L 12/15/2023 6:33 PM CDT OWAT Sodium, P 142 135 - 145 mmol/L 12/15/2023 6:33 PM CDT OWAT Chloride, P 106 98 - 107 mmol/L 12/15/2023 6:33 PM CDT OWAT Bicarbonate, P 27 22 - 29 mmol/L 12/15/2023 6:33 PM CDT OWAT Anion Gap, P 9 7 - 15 12/15/2023 6:33 PM CDT OWAT BUN (Blood Urea Nitrogen), P 15 6 - 21 mg/dL 12/15/2023 6:33 PM CDT OWAT Creatinine 0.86 0.59 - 1.04 mg/dL 12/15/2023 6:33 PM CDT OWAT Estimated GFR (eGFR) 70 >=60 mL/min/BS A 12/15/2023 6:33 PM CDT OWAT Comment: Estimated GFR calculated using the 2020 CKD_EPI creatinine equation. Calcium, Total, P 9.3 8.8 - 10.2 mg/dL 12/15/2023 6:33 PM CDT OWAT Glucose, P 103 70 - 140 mg/dL 12/15/2023 6:33 PM CDT OWAT Protein, Total, P 6.4 6.3 - 7.9 g/dL 12/15/2023 6:33 PM CDT OWAT Albumin, P 3.8 3.5 - 5.0 g/dL 12/15/2023 6:33 PM CDT OWAT Aspartate Aminotransferase (AST), P 18 8 - 43 U/L 12/15/2023 6:33 PM CDT OWAT Alkaline Phosphatase, P 134(H) 35 - 104 U/L 12/15/2023 6:33 PM CDT OWAT Alanine Aminotransferase (ALT), P 18 7 - 45 U/L 12/15/2023 6:33 PM CDT OWAT Bilirubin, Total, P 0.5 0.0 - 1.2 mg/dL 12/15/2023 6:33 PM CDT OWAT Blood (Blood, Venous) 12/15/2023 5:00 PM CDT 12/15/2023 6:08 PM CDT Patrick Erickson D.O. LAB BLOOD ADD-ON Final Res ult [facility] [address] [place] [address], [facility] OWAT [facility] [place] [address], [place] [address] * (ABNORMAL) Prothrombin Time (PT) (12/03/2023 3:01 [...] CDT Patrick Erickson D.O. LAB BLOOD ADD-ON Final Res ult Performing Organization Address City/[facility]/ZIP Co de Phone Number [facility] [address] [place] [address], [facility] OWAT [facility] [place] [address] [place] [address] * (ABNORMAL) EXT Home SARS Coronavirus-2 (COVID-19) Antigen (11/26/2023 6:00 PM CDT) Only the most recent of2 resultswithin the time period is included. EXT Home SARS-CoV-2 Antigen Presumptive Positive(A) Presumptive Negative OTHER (SPECIFY IN CHECK GRADER) Swab 11/26/2023 6:00 PM CDT us Historical Provider LAB MICROBIOLOGY - GENERAL O RDERABLES Final Result OTHER (SPECIFY IN CHECK GRADER) N/A * Lipid Panel (07/06/2023 8:46 AM [...] 8:46 AM CDT 07/06/2023 1:08 PM CDT us Patrick Erickson D.O. LAB BLOOD ADD-ON Final Res ult [facility] [address] [place] [address], [facility] OWAT [facility] [place] [address] [place] [address] * (ABNORMAL) CBC with Differential, Blood (07/06/2023 [...] 8:46 AM CDT 07/06/2023 8:46 AM CDT us Patrick Erickson D.O. LAB BLOOD ADD-ON Final Res ult Performing Organization Address [facility]/ZIP Co de Phone Number [facility] [address] [place] [address], [place] FB60 [facility] [place] [address] [place] [address] * (ABNORMAL) Glucose, Fasting (07/06/2023 8:46 AM CDT) Glucose, P 131(H) 70 - 100 mg/dL 07/06/2023 2:02 PM CDT OWAT Last Intake 13 hr 07/06/2023 1:09 PM CDT OWAT Blood (Blood, Venous) 07/06/2023 8:46 AM CDT 07/06/2023 1:09 PM CDT us Patrick Erickson D.O. LAB BLOOD NON ADD-ON Final Result Performing Organization Address [facility]/ZIP Co de Phone Number [facility] [address] [place] [address], [place] [facility] [facility] [place] [address] [place] [address] * Basic Metabolic Panel (07/06/2023 8:46 AM [...] 8:46 AM CDT 07/06/2023 1:08 PM CDT us Patrick Erickson D.O. LAB BLOOD ADD-ON Final Res ult [facility] [address] [place] [address], [facility] OWAT [facility] [place] [address] [place] [address] * ECG 12 Lead (06/22/2023 10:27 AM CDT) Only the most recent of3 resultswithin the time period is included. Ventricular Rate ECG/Min 43 BPM MUSE MD Interval 150 ms MUSE QRSD Interval 110 ms MUSE QT Interval 500 ms MUSE QTC Interval 422 ms MUSE P [place] 56 degrees MUSE R [place] 6 degrees MUSE T Wave [place] 269 degrees MUSE 06/22/2023 10:2 7 AM [...] occurred Reviewed by ASHIA Romero Roberto Dumont APRN, C.N.P. ECG ORDERABLES Final Result MUSE NA * (ABNORMAL) Urinalysis with Microscopic [...] 8.0 10/12/2022 10:32 AM CDT FB60 Specific Babcock 1.010 1.001 - 1.035 10/12/2022 10:32 AM CDT FB60 Urobilinogen 0.2 0.2 - 1.0 mg/dL 10/12/2022 10:32 AM CDT FB60 Urine (Urine, Midstream) 10/12/2022 10:02 AM CDT 10/12/2022 10:19 AM CDT Soheila Zapata P.A.-C., M.S. LAB URINE ORDERA BLES Final Result Performing Organization Address [facility] [[email or web address]] Co de Phone Number [facility] [address] [place] [address], [facility] FB60 [place] [address] * (ABNORMAL) Microscopic Manual (10/12/2022 10:02 AM [...] AM CDT Soheila Zapata P.A.-C., M.S. LAB URINE ORDERA BLES Final Result Performing Organization Address [facility]/ZIP Co de Phone Number [facility] [address] [place] [address], [facility] FB60 [place] [address] * (ABNORMAL) Albumin, Random, Urine (10/12/2022 10:02 [...] 10:02 AM CDT 10/12/2022 1:36 PM CDT us Soheila Zapata P.A.-C., M.S. LAB URINE ORDERA BLES Final Result [facility] [address] [place] [address], [place] OWAT [facility] [place] [address] [place] [address] * (TTE) 2D ECHO DOPPLER COLOR (06/01/2022 8:09 AM CDT) Pathologist [facility] Ejection Fraction 48 MC CV EIMS Mid-Ascending [...] were performed but not reported based on custom tailor's judgment. Mild generalized left ventricular hypokinesis. Normal [...] were performed but not reported based on custom tailor'sjudgment. Mild generalized left ventricular hypokinesis. Normal leftventricular [...] report, see the Order-Level Documents. Roberto Dumont APRN, C.N.P. 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 The basic rhythm was sinus with [...] were noted in or around these events. County Assessor: Smita Venegas/956 Fellow: Bradly Davenport MD Procedure Note Rachana Silva M.D., Ph.D. - 04/10/2022 [place] 1. The basic rhythm was sinus with [...] bigeminywere noted in or around these events. County Assessor: Smita Venegas/956 Fellow: Bradly Davenport MD Roberto Dumont APRN, C.N.P. CV CARDIAC SERVICES P ROCEDURES Edited Result - Final SALMA QUINONES NA * FL LUMBAR SPINE TRANSFORAMINAL EPIDURAL [...] method: local infiltration Local infiltrate type: lidocaine us Eder Torres M.D. IMG FLUOROSCOPY PROCEDUR ES Final Result [facility] * BI Breast Screening Bilateral with Tomosynthesis (12/09/2021 3:16 PM CDT) Anatomical Region Laterality Modality Breast, Breast Imaging RST L OS, Breast Imaging ARZ LOS, Breast Imaging FLA [facility] Bilateral Mammography 12/09/2021 4:58 PM CDT Impressions [...] Annual Screening Mammogram ASSESSMENT: BI-RADS: 1: Negative. us Soheila Zapata P.A.-C., M.S. IMG BI PROCEDURE S Final Result * S-TSH (Thyroid-Stimulating Hormone - Sensitive) (11/06/2021 2:48 PM CDT) Only the most recent of6 resultswithin the time period is included. TSH, Sensitive 2.3 0.3 - 4.2 mIU/L 11/06/2021 3:30 PM CDT OWAT Blood (Blood, Venous) 11/06/2021 2:48 PM CDT 11/06/2021 2:52 PM CDT us Soheila Zapata P.A.-C., M.S. LAB BLOOD ADD-ON Final Result [facility] [address] [place] [address], [facility] OWAT [facility] [place] [address] [place] [address] * Sodium (11/06/2021 2:48 PM CDT) Only the most recent of3 resultswithin the time period is included. Sodium, P 142 135 - 145 mmol/L 11/06/2021 3:22 PM CDT OWAT Blood (Blood, Venous) 11/06/2021 2:48 PM CDT 11/06/2021 2:52 PM CDT Soheila Zapata P.A.-C., M.S. LAB BLOOD ADD-ON Final Result [facility] [address] [place] [address], [place] OWAT [facility] [place] [address] [place] [address] * Potassium (11/06/2021 2:48 PM CDT) Only the most recent of5 resultswithin the time period is included. Potassium, P 4.2 3.6 - 5.2 mmol/L 11/06/2021 3:22 PM CDT OW Blood (Blood, Venous) 11/06/2021 2:48 PM CDT 11/06/2021 2:52 PM CDT Soheila Zapata P.A.-C., M.S. LAB BLOOD ADD-ON Final Result Performing Organization Address [facility] [[email or web address]] Co de Phone Number [facility] [address] [place] [address], [facility] [place] [address] [place] [address] * (ABNORMAL) Hemoglobin A1c (11/06/2021 2:48 PM CDT) Only the most recent of3 resultswithin the time period is included. Hemoglobin A1c, B 6.0(H) 4.2 - 5.6 % 11/06/2021 3:15 PM CDT OW Comment: Hemoglobin A1c values of 5.7-6.4 percent indicate an increased risk for developing diabetes mellitus. In diabetic patients, HbA1c goals should be discussed with healthcare provider. Blood (Blood, Venous) 11/06/2021 2:48 PM CDT 11/06/2021 2:52 PM CDT Soheila Zapata P.A.-C., M.S. LAB BLOOD ADD-ON Final Result Performing Organization Address City/[facility]/ZIP Co de Phone Number [facility] [address] [place] [address], [facility] OWAT [facility] [place] [address] [place] [address] * (ABNORMAL) Creatinine with Estimated GFR (11/06/2021 [...] PM CDT Soheila Zapata P.A.-C., M.S. LAB BLOOD ADD-ON Final Result Performing Organization Address City/[facility] [[email or web address]] Co de Phone Number [facility] [address], [place] [address], [facility] OWAT [facility] [place] [address] [place] [address] * MR Lumbar Spine without IV Contrast (05/17/2020 11:41 AM [employer]) Anatomical Region Laterality Modality Lumbar Spine, Neuroradiology RST LOS, Neuroradiology ARZ [facility], Neuroradiology FLA LOS N/A Magnetic Resonance 05/17/2020 12:5 1 PM [employer] Impressions 05/17/2020 1:09 PM [employer]AMES 1. Degenerative spondylosis lumbar spine, as detailed, including essentially severe narrowing of the spinal canal at L4-L5. 2. A left-sided disc extrusion/protrusion at L5-S1 could result in L5 radicular symptoms. 3. Incidental imaging of a 8.6 cm cyst in the spleen probably representing sequela of remote injury or inflammatory insult. Narrative 05/17/2020 1:09 PM [employer] FRAMES EXAM: ??MR LUMBAR SPINE WITHOUT IV CONTRAST [...] few internal septations is best seen on mill set up imaging (series 1, images 15-18). This is [...] but does not compress the exiting left [id number] root (series 5, image 2-4). No right [...] few internal septations is best seen on mill set up imaging (series 1, images 15-18). Thisis probably [...] disc extrusion/protrusion at L5-S1 could result in [id number] symptoms. 3. Incidental imaging of a 8.6 cm cyst in the spleen probablyrepresenting sequela of remote injury or inflammatory insult. us Butch Velazquez M.D. [facility] MRI PROCEDURES Final Result * SARS Coronavirus-2 RNA, V Symptomatic (11/25/2019 [...] is performed using the Aptima SARS-CoV-2 assay ([employer] which has received Emergency Use Authorization (EUA) by the U.S. Food and Drug Administration. Fact sheets for this Emergency Use Authorization (EUA) assay can be found at the following links: For Healthcare Providers: https://www.fda.gov/media/851489/download For Patients: https://www.fda.gov/media/044123/download Varies (Nasopharynx) 11/25/2019 1:05 PM CDT 11/25/2019 5:08 PM CDT us Patrick Erickson D.O. LAB MICROBIOLOGY - GENERAL ORDERABLES Final Result Performing Organization Address City/[facility]/ZIP Co de Phone Number [facility] [address] [place] [phone], [facility] [place] [address] [place] [address] * Hemoglobin (12/28/2017 12:20 PM CDT) Hemoglobin 12.9 11.6 - 15.0 g/dL 12/28/2017 12:36 PM CDT [facility] Blood (Blood, Venous) 12/28/2017 12:20 PM CDT 12/28/2017 12:34 PM CDT us Tariq Estrella M.D. LAB BLOOD ADD-ON Final Res ult [facility] [address] [place] [address], [facility] * (TTE) 2D ECHO DOPPLER COLOR (07/28/2017 [...] M.D. - 07/28/2017 See PDF For Result us Tariq Estrella M.D. CV ECHO PROCEDURES Final R esult * DX Lumbar Spine 2-3 Views (07/19/2017 [...] lumbar spondylosis. 3. Malalignment. Bayron Fernandez M.D. IM DIAGNOSTIC IMAGING [facility] Final Result * CBC without Differential (06/30/2017 8:20 AM CDT) Only the most recent of2 resultswithin the time period is included. Hemoglobin 12.5 11.6 - 15.0 g/dL 06/30/2017 8:40 AM CDT [facility] Hematocrit 39.5 35.5 - 44.9 % 06/30/2017 8:40 AM CDT [facility] Erythrocytes 4.46 3.92 - 5.13 x10(12)/L 06/30/2017 8:40 AM CDT [facility] MCV 88.6 78.2 - 97.9 fL 06/30/2017 8:40 AM CDT [facility] RBC Distrib Width 13.6 12.2 - 16.1 % 06/30/2017 8:40 AM CDT [facility] Platelet Count 174 157 - 371 x10(9)/L 06/30/2017 8:40 AM CDT [facility] Leukocytes 6.7 3.4 - 9.6 x10(9)/L 06/30/2017 8:40 AM CDT [facility] Blood 06/30/2017 8:20 AM CDT 06/30/2017 8:36 AM CDT us Tariq Estrella M.D. LAB BLOOD ADD-ON Final Res ult Performing Organization Address City/[facility] [[email or web address]] Co de Phone Number [facility] [address] [place] [address] * BUN (Blood Urea Nitrogen) (06/30/2017 8:20 AM CDT) Only the most recent of5 resultswithin the time period is included. BUN (Blood Urea Nitrogen), S 15 6 - 21 mg/dL 06/30/2017 11:08 AM CDT [facility] Blood 06/30/2017 8:20 AM CDT 06/30/2017 8:36 AM CDT us Tariq Estrella M.D. LAB BLOOD ADD-ON Final Res ult Performing Organization Address City/[facility]/ZIP Co de Phone Number [facility] [address] [place] [address] * Automated Differential (08/17/2016 9:54 AM CDT) [...] CDT Parvin Regalado M.D. LAB BLOOD ADD-ON Final Resul t Performing Organization Address [facility] [[email or web address]] Co de Phone Number [email or web address] * ALT (Alanine Aminotransferase) (07/09/2016 10:59 AM CDT) Alanine Amniotransferas e, LD 16 7 - 45 UNITL POWERCHART Blood 07/09/2016 10:5 9 AM CDT Tariq Estrella M.D. LAB BLOOD ADD-ON Final Res ult Performing Organization Address [facility] de Phone Number [email or web address] * AST (Aspartate Aminotransferase) (07/09/2016 10:59 AM CDT) Aspartate Aminotransferase (AST), S 16 8 - 43 UNITL POWERCHART Blood 07/09/2016 10:5 9 AM CDT Tariq Estrella M.D. LAB BLOOD ADD-ON Final Res ult Performing Organization Address [facility] de Phone Number [email or web address] * Electrolyte Panel [...] CDT Tariq Estrella M.D. LAB BLOOD ADD-ON Final Res ult POWERCHART * ECHOCARDIOLOGY IMAGE EXAM (06/24/2016 9:21 AM CDT) Only the most recent of4 resultswithin the time period is included. Anatomical Region Laterality Modality Other 06/24/2016 9:21 AM CDT Addenda Addendum by Provider, Kerri Webster on 06/24/2016 9:21 AM CDT ECHO^^^MCR Non-Radiology Image 06/24/2016 09:21:00 Result [facility] Provider IMG NON RAD IMAGING PROCEDUR ES Final Result * Echo Transthoracic (TTE) (06/24/2016 9:16 AM CDT) Anatomical Region Laterality Modality Echocardiography 06/24/2016 9:16 AM CDT Historical Provider CV ECHO PROCEDURES Final Res ult * Echo Transthoracic (TTE) (06/13/2015 7:57 AM CDT) Anatomical Region Laterality Modality Echocardiography 06/13/2015 7:57 AM CDT [facility] Provider CV ECHO PROCEDURES Final Res ult * (ABNORMAL) NT-Pro B-Type Natriuretic Peptide (BNP) [...] CDT Tariq Estrella M.D. LAB BLOOD ADD-ON Final Res ult Performing Organization Address [facility] de Phone Number [email or web address] * Echo Transthoracic (TTE) (12/05/2014 8:09 AM CDT) Anatomical Region Laterality Modality Echocardiography 12/05/2014 8:09 AM CDT Historical Provider CV ECHO PROCEDURES Final Res ult * T3 (Triiodothyronine), Free (08/29/2014 9:34 AM CDT) T3 (Triiodothyronine ), Free, S 2.6 2.0 - 3.5 PGML POWERCHART Comment: Test Performed by: [place] [address] [place] Hand: Raúl Loyola II, M.D., Ph.D. Blood 08/29/2014 9:34 AM CDT Braulio Simmons M.D. LAB BLOOD ADD-ON Final Result Performing Organization Address [facility] de Phone Number POWERCHART * T4 (Thyroxine), Free (08/29/2014 9:34 AM CDT) T4 (Thyroxine), Free, S 0.92 0.90 - 1.70 NGDL POWERCHART Blood 08/29/2014 9:34 AM CDT Braulio Simmons M.D. LAB BLOOD ADD-ON Final Result Performing Organization Address [facility] de Phone Number POWERCHART * Ferritin (08/15/2014 7:52 AM CDT) Ferritin, S 42.8 11.0 - 307.0 NGML POWERCHART Blood 08/15/2014 7:52 AM CDT Tariq Estrella M.D. LAB BLOOD ADD-ON Final Res ult POWERCHART * Echo Transthoracic (TTE) (08/03/2014 9:15 AM CDT) Anatomical Region Laterality Modality Echocardiography 08/03/2014 9:15 AM CDT [facility] Provider CV ECHO PROCEDURES Edited Re sult - Final * DX Chest Anterior Posterior or Posterior Anterior and Lateral 2 Views (08/01/2014 4:28 PM CDT) Anatomical Region Laterality Modality Chest N/A Radiographic Paula ging 08/01/2014 4:28 PM CDT Addenda Addendum by Darin Anna M.D. on 08/01/2014 4:28 PM CDT RAD^^^OW [...] pulmonary edema or interstitial infection. Keri George(R), RAhmet.(MR) IMG DIAGNOSTIC IMAGING PROCEDURES Edited Result - Final * Troponin I (08/01/2014 4:09 PM CDT) Troponin I, S see report 0 - 0 NGML POWERCHART Blood 08/01/2014 4:09 PM CDT Bayron Fernandez M.D. LAB BLOOD NON ADD-ON Final R esult POWERCHART * (ABNORMAL) D-Dimer (08/01/2014 4:09 PM CDT) D-Dimer, P 0.43(H) 0.00 - 0.40 MCGMLFEU POWERCHART Blood 08/01/2014 4:09 PM CDT us Bayron Fernandez M.D. LAB BLOOD ADD-ON Final Resul t POWERCHART Visit Diagnoses Diagnosis Start Date Failure [...] (HCC) 12/30/2021 Atrial Fibrillation Unspecified (HCC) 01/06/2022 Halfway (Current) Anticoagulant Treatment 01/06/2022 Atrial Fibrillation Unspecified (HCC) 01/07/2022 Monitoring For Therapeutic Drug Therapy 01/07/2022 Halfway (Current) Anticoagulant Treatment 01/07/2022 Atrial Fibrillation Unspecified (HCC) 01/12/2022 Monitoring For Therapeutic Drug Therapy 01/12/2022 Halfway (Current) Anticoagulant Treatment 01/12/2022 Atrial Fibrillation Unspecified (HCC) 01/12/2022 Monitoring For Therapeutic Drug Therapy 01/12/2022 Debeaker (Current) Anticoagulant Treatment 01/12/2022 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 01/14/2022 Radiculopathy Lumbosacral 01/14/2022 Atrial Fibrillation Unspecified (HCC) 01/15/2022 Monitoring For Therapeutic Drug Therapy 01/15/2022 Halfway (Current) Anticoagulant Treatment 01/15/2022 Atrial Fibrillation Unspecified (HCC) 01/15/2022 Monitoring For Therapeutic Drug Therapy 01/15/2022 Halfway (Current) Anticoagulant Treatment 01/15/2022 Atrial Fibrillation Unspecified (HCC) 01/16/2022 Monitoring For Therapeutic Drug Therapy 01/16/2022 Debeaker (Current) Anticoagulant Treatment 01/16/2022 Atrial Fibrillation Unspecified (HCC) 01/23/2022 Monitoring For Therapeutic Drug Therapy 01/23/2022 Halfway (Current) Anticoagulant Treatment 01/23/2022 Atrial Fibrillation Unspecified (HCC) 01/23/2022 Monitoring For Therapeutic Drug Therapy 01/23/2022 Halfway (Current) Anticoagulant Treatment 01/23/2022 Atrial Fibrillation Unspecified (HCC) 02/02/2022 Monitoring For Therapeutic Drug Therapy 02/02/2022 Debeaker (Current) Anticoagulant Treatment 02/02/2022 Atrial Fibrillation Unspecified (HCC) 02/02/2022 Monitoring For Therapeutic Drug Therapy 02/02/2022 Debeaker (Current) Anticoagulant Treatment 02/02/2022 Atrial Fibrillation Unspecified (HCC) 02/03/2022 Monitoring For Therapeutic Drug Therapy 02/03/2022 Halfway (Current) Anticoagulant Treatment 02/03/2022 Atrial Fibrillation Unspecified (HCC) 02/06/2022 Monitoring For Therapeutic Drug Therapy 02/06/2022 Halfway (Current) Anticoagulant Treatment 02/06/2022 Atrial Fibrillation Unspecified (HCC) 02/09/2022 Monitoring For Therapeutic Drug Therapy 02/09/2022 Halfway (Current) Anticoagulant Treatment 02/09/2022 Atrial Fibrillation Unspecified (HCC) 02/13/2022 Monitoring For Therapeutic Drug Therapy 02/13/2022 Halfway (Current) Anticoagulant Treatment 02/13/2022 Atrial Fibrillation Unspecified (HCC) 02/13/2022 Monitoring For Therapeutic Drug Therapy 02/13/2022 Debeaker (Current) Anticoagulant Treatment 02/13/2022 Atrial Fibrillation Unspecified (HCC) 02/20/2022 Monitoring For Therapeutic Drug Therapy 02/20/2022 Halfway (Current) Anticoagulant Treatment 02/20/2022 Atrial Fibrillation Unspecified (HCC) 02/20/2022 Monitoring For Therapeutic Drug Therapy 02/20/2022 Debeaker (Current) Anticoagulant Treatment 02/20/2022 Atrial Fibrillation Unspecified (HCC) 03/06/2022 Monitoring For Therapeutic Drug Therapy 03/06/2022 Halfway (Current) Anticoagulant Treatment 03/06/2022 Atrial Fibrillation Unspecified (HCC) 03/06/2022 Monitoring For Therapeutic Drug Therapy 03/06/2022 Debeaker (Current) Anticoagulant Treatment 03/06/2022 Atrial Fibrillation Unspecified (HCC) 03/16/2022 Monitoring For Therapeutic Drug Therapy 03/16/2022 Debeaker (Current) Anticoagulant Treatment 03/16/2022 Atrial Fibrillation Unspecified (HCC) 03/16/2022 Monitoring For Therapeutic Drug Therapy 03/16/2022 Debeaker (Current) Anticoagulant Treatment 03/16/2022 Atrial Fibrillation Unspecified (HCC) 03/24/2022 Monitoring For Therapeutic Drug Therapy 03/24/2022 Halfway (Current) Anticoagulant Treatment 03/24/2022 Atrial Fibrillation Unspecified (HCC) 03/24/2022 Monitoring For Therapeutic Drug Therapy 03/24/2022 Debeaker (Current) Anticoagulant Treatment 03/24/2022 Atrial Fibrillation Unspecified (HCC) 03/27/2022 Monitoring For Therapeutic Drug Therapy 03/27/2022 Halfway (Current) Anticoagulant Treatment 03/27/2022 Atrial Fibrillation Unspecified (HCC) 03/31/2022 Monitoring For Therapeutic Drug Therapy 03/31/2022 Debeaker (Current) Anticoagulant Treatment 03/31/2022 Atrial Fibrillation Unspecified (HCC) 03/31/2022 Monitoring For Therapeutic Drug Therapy 03/31/2022 Debeaker (Current) Anticoagulant Treatment 03/31/2022 Atrial Fibrillation Unspecified (HCC) 04/07/2022 Monitoring For Therapeutic Drug Therapy 04/07/2022 Halfway (Current) Anticoagulant Treatment 04/07/2022 Atrial Fibrillation Unspecified (HCC) 04/07/2022 Monitoring For Therapeutic Drug Therapy 04/07/2022 Halfway (Current) Anticoagulant Treatment 04/07/2022 Atrial Fibrillation Other Persistent (HCC) 04/07/2022 Atrial Fibrillation Unspecified (HCC) 04/21/2022 Atrial Fibrillation Unspecified (HCC) 04/21/2022 Monitoring For Therapeutic Drug Therapy 04/21/2022 Halfway (Current) Anticoagulant Treatment 04/21/2022 Atrial Fibrillation Unspecified (HCC) 04/21/2022 Monitoring For Therapeutic Drug Therapy 04/21/2022 Halfway (Current) Anticoagulant Treatment 04/21/2022 Atrial Fibrillation Unspecified (HCC) 04/28/2022 Monitoring For Therapeutic Drug Therapy 04/28/2022 Halfway (Current) Anticoagulant Treatment 04/28/2022 Atrial Fibrillation Unspecified (HCC) 04/28/2022 Monitoring For Therapeutic Drug Therapy 04/28/2022 Halfway (Current) Anticoagulant Treatment 04/28/2022 Atrial Fibrillation Unspecified (HCC) 04/29/2022 Monitoring For Therapeutic Drug Therapy 04/29/2022 Halfway (Current) Anticoagulant Treatment 04/29/2022 Deficiency Estrogen Post Menopausal 05/12/2022 Atrial Fibrillation Unspecified (HCC) 05/12/2022 Monitoring For Therapeutic Drug Therapy 05/12/2022 Debeaker (Current) Anticoagulant Treatment 05/12/2022 Atrial Fibrillation Unspecified (HCC) 05/12/2022 Monitoring For Therapeutic Drug Therapy 05/12/2022 Halfway (Current) Anticoagulant Treatment 05/12/2022 Cardiomyopathy Dilated (HCC) 06/01/2022 Atrial Fibrillation Unspecified (HCC) 06/03/2022 Debeaker (Current) Anticoagulant Treatment 06/03/2022 Cardiomyopathy Dilated (HCC) 06/03/2022 Hyperlipidemia On Treatment 06/03/2022 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 Glomerular Filtration Rate (GFR) 45 To 59 (HCC) 06/03/2022 Atrial Fibrillation Unspecified (HCC) 06/09/2022 Monitoring For Therapeutic Drug Therapy 06/09/2022 Debeaker (Current) Anticoagulant Treatment 06/09/2022 Atrial Fibrillation Unspecified (HCC) 06/09/2022 Monitoring For Therapeutic Drug Therapy 06/09/2022 Debeaker (Current) Anticoagulant Treatment 06/09/2022 Atrial Fibrillation Unspecified (HCC) 06/15/2022 Monitoring For Therapeutic Drug Therapy 06/15/2022 Debeaker (Current) Anticoagulant Treatment 06/15/2022 Atrial Fibrillation Unspecified (HCC) 06/15/2022 Monitoring For Therapeutic Drug Therapy 06/15/2022 Debeaker (Current) Anticoagulant Treatment 06/15/2022 Atrial Fibrillation Unspecified (HCC) 06/19/2022 Monitoring For Therapeutic Drug Therapy 06/19/2022 Debeaker (Current) Anticoagulant Treatment 06/19/2022 Atrial Fibrillation Unspecified (HCC) 06/19/2022 Monitoring For Therapeutic Drug Therapy 06/19/2022 Debeaker (Current) Anticoagulant Treatment 06/19/2022 Atrial Fibrillation Unspecified (HCC) 06/29/2022 Monitoring For Therapeutic Drug Therapy 06/29/2022 Debeaker (Current) Anticoagulant Treatment 06/29/2022 Atrial Fibrillation Unspecified (HCC) 06/29/2022 Monitoring For Therapeutic Drug Therapy 06/29/2022 Halfway (Current) Anticoagulant Treatment 06/29/2022 Atrial Fibrillation Unspecified (HCC) 07/27/2022 Monitoring For Therapeutic Drug Therapy 07/27/2022 Halfway (Current) Anticoagulant Treatment 07/27/2022 Atrial Fibrillation Unspecified (HCC) 07/27/2022 Monitoring For Therapeutic Drug Therapy 07/27/2022 Halfway (Current) Anticoagulant Treatment 07/27/2022 Atrial Fibrillation Unspecified (HCC) 08/07/2022 Monitoring For Therapeutic Drug Therapy 08/07/2022 Debeaker (Current) Anticoagulant Treatment 08/07/2022 Atrial Fibrillation Unspecified (HCC) 08/10/2022 Monitoring For Therapeutic Drug Therapy 08/10/2022 Debeaker (Current) Anticoagulant Treatment 08/10/2022 Atrial Fibrillation Unspecified (HCC) 08/10/2022 Monitoring For Therapeutic Drug Therapy 08/10/2022 Halfway (Current) Anticoagulant Treatment 08/10/2022 Monitoring For Therapeutic Drug Therapy 08/12/2022 Laceration Blood Vessel Left Index Finger Sequela 08/31/2022 Atrial Fibrillation Paroxysmal (HCC) 09/01/2022 Halfway (Current) Anticoagulant Treatment 09/01/2022 Bradycardia 09/01/2022 Cardiomyopathy Dilated (HCC) 09/01/2022 Hypertensive Heart With Heart Failure And Chronic Kidney Disease (CKD) Stage 3a Glomerular Filtration Rate (GFR) 45 To 59 (HCC) 09/01/2022 Atrial Fibrillation Unspecified (HCC) 09/03/2022 Monitoring For Therapeutic Drug Therapy 09/03/2022 Debeaker (Current) Anticoagulant Treatment 09/03/2022 Atrial Fibrillation Paroxysmal (HCC) 09/03/2022 Monitoring For Therapeutic Drug Therapy 09/03/2022 Halfway (Current) Anticoagulant Treatment 09/03/2022 Hypertensive Heart With Heart Failure And Chronic Kidney Disease (CKD) Stage 3a Glomerular Filtration Rate (GFR) 45 To 59 (HCC) 09/17/2022 Monitoring For Therapeutic Drug Therapy 09/17/2022 Atrial Fibrillation Paroxysmal (HCC) 09/17/2022 Monitoring For Therapeutic Drug Therapy 09/17/2022 Atrial Fibrillation Paroxysmal (HCC) 09/17/2022 Monitoring For Therapeutic Drug Therapy 09/17/2022 Halfway (Current) Anticoagulant Treatment 09/17/2022 Atrial Fibrillation Paroxysmal (HCC) 10/01/2022 Monitoring For Therapeutic Drug Therapy 10/01/2022 Debeaker (Current) Anticoagulant Treatment 10/01/2022 Atrial Fibrillation Paroxysmal (HCC) 10/02/2022 Halfway (Current) Anticoagulant Treatment 10/02/2022 Monitoring For Therapeutic Drug Therapy 10/02/2022 Atrial Fibrillation Paroxysmal (HCC) 10/02/2022 Monitoring For Therapeutic Drug Therapy 10/02/2022 Halfway (Current) Anticoagulant Treatment 10/02/2022 Atrial Fibrillation Paroxysmal (HCC) 10/12/2022 Monitoring For Therapeutic Drug Therapy 10/12/2022 Halfway (Current) Anticoagulant Treatment 10/12/2022 Hypertensive Heart With Heart Failure And Chronic Kidney Disease (CKD) Stage 3a Glomerular Filtration Rate (GFR) 45 To 59 ([facility]) 10/12/2022 Atrial Fibrillation Paroxysmal (HCC) 10/12/2022 Monitoring For Therapeutic Drug Therapy 10/12/2022 Debeaker (Current) Anticoagulant Treatment 10/12/2022 Atrial Fibrillation Paroxysmal (HCC) 10/21/2022 Monitoring For Therapeutic Drug Therapy 10/21/2022 Halfway (Current) Anticoagulant Treatment 10/21/2022 Atrial Fibrillation Paroxysmal (HCC) 10/27/2022 Monitoring For Therapeutic Drug Therapy 10/27/2022 Halfway (Current) Anticoagulant Treatment 10/27/2022 Atrial Fibrillation Paroxysmal (HCC) 10/28/2022 Monitoring For Therapeutic Drug Therapy 10/28/2022 Halfway (Current) Anticoagulant Treatment 10/28/2022 Atrial Fibrillation Paroxysmal (HCC) 11/04/2022 Monitoring For Therapeutic Drug Therapy 11/04/2022 Halfway (Current) Anticoagulant Treatment 11/04/2022 Atrial Fibrillation Paroxysmal (HCC) 11/04/2022 Monitoring For Therapeutic Drug Therapy 11/04/2022 Halfway (Current) Anticoagulant Treatment 11/04/2022 Atrial Fibrillation Paroxysmal (HCC) 11/10/2022 Monitoring For Therapeutic Drug Therapy 11/10/2022 Halfway (Current) Anticoagulant Treatment 11/10/2022 Atrial Fibrillation Paroxysmal (HCC) 11/10/2022 Monitoring For Therapeutic Drug Therapy 11/10/2022 Debeaker (Current) Anticoagulant Treatment 11/10/2022 Atrial Fibrillation Paroxysmal (HCC) 11/17/2022 Monitoring For Therapeutic Drug Therapy 11/17/2022 Halfway (Current) Anticoagulant Treatment 11/17/2022 Atrial Fibrillation Paroxysmal (HCC) 11/17/2022 Monitoring For Therapeutic Drug Therapy 11/17/2022 Halfway (Current) Anticoagulant Treatment 11/17/2022 Atrial Fibrillation Paroxysmal (HCC) 12/15/2022 Monitoring For Therapeutic Drug Therapy 12/15/2022 Debeaker (Current) Anticoagulant Treatment 12/15/2022 Hypertensive Heart With Heart Failure And Chronic Kidney Disease (CKD) Stage 3a Glomerular Filtration Rate (GFR) 45 To 59 (HCC) 12/15/2022 Atrial Fibrillation Paroxysmal (HCC) 12/15/2022 Monitoring For Therapeutic Drug Therapy 12/15/2022 Halfway (Current) Anticoagulant Treatment 12/15/2022 Atrial Fibrillation Paroxysmal (HCC) 01/26/2023 Monitoring For Therapeutic Drug Therapy 01/26/2023 Debeaker (Current) Anticoagulant Treatment 01/26/2023 Atrial Fibrillation Paroxysmal (HCC) 01/26/2023 Monitoring For Therapeutic Drug Therapy 01/26/2023 Debeaker (Current) Anticoagulant Treatment 01/26/2023 Atrial Fibrillation Paroxysmal (HCC) 02/02/2023 Monitoring For Therapeutic Drug Therapy 02/02/2023 Debeaker (Current) Anticoagulant Treatment 02/02/2023 Atrial Fibrillation Paroxysmal (HCC) 02/02/2023 Monitoring For Therapeutic Drug Therapy 02/02/2023 Halfway (Current) Anticoagulant Treatment 02/02/2023 Atrial Fibrillation Paroxysmal (HCC) 02/16/2023 Monitoring For Therapeutic Drug Therapy 02/16/2023 Debeaker (Current) Anticoagulant Treatment 02/16/2023 Atrial Fibrillation Paroxysmal (HCC) 02/16/2023 Monitoring For Therapeutic Drug Therapy 02/16/2023 Halfway (Current) Anticoagulant Treatment 02/16/2023 Atrial Fibrillation Paroxysmal (HCC) 02/24/2023 Monitoring For Therapeutic Drug Therapy 02/24/2023 Debeaker (Current) Anticoagulant Treatment 02/24/2023 COVID-19 Infection 02/24/2023 ERRONEOUS ENCOUNTER--DISREGARD 02/24/2023 Atrial Fibrillation Paroxysmal (HCC) 02/25/2023 Monitoring For Therapeutic Drug Therapy 02/25/2023 Debeaker (Current) Anticoagulant Treatment 02/25/2023 Atrial Fibrillation Paroxysmal (HCC) 03/05/2023 Monitoring For Therapeutic Drug Therapy 03/05/2023 Debeaker (Current) Anticoagulant Treatment 03/05/2023 Atrial Fibrillation Paroxysmal (HCC) 03/05/2023 Monitoring For Therapeutic Drug Therapy 03/05/2023 Debeaker (Current) Anticoagulant Treatment 03/05/2023 Hypertensive Heart With Heart Failure And Chronic Kidney Disease (CKD) Stage 3a Glomerular Filtration Rate (GFR) 45 To 59 (HCC) 03/05/2023 Hyperlipidemia On Treatment 03/05/2023 Atrial Fibrillation Paroxysmal (HCC) 03/09/2023 Monitoring For Therapeutic Drug Therapy 03/09/2023 Debeaker (Current) Anticoagulant Treatment 03/09/2023 Hypertensive Heart With Heart Failure And Chronic Kidney Disease (CKD) Stage 3a Glomerular Filtration Rate (GFR) 45 To 59 (HCC) 03/09/2023 Hyperlipidemia On Treatment 03/09/2023 Atrial Fibrillation Paroxysmal (HCC) 03/09/2023 Monitoring For Therapeutic Drug Therapy 03/09/2023 Halfway (Current) Anticoagulant Treatment 03/09/2023 Atrial Fibrillation Paroxysmal (HCC) 03/12/2023 Monitoring For Therapeutic Drug Therapy 03/12/2023 Halfway (Current) Anticoagulant Treatment 03/12/2023 Hypertensive Heart With Heart Failure And Chronic Kidney Disease (CKD) Stage 3a Glomerular Filtration Rate (GFR) 45 To 59 (HCC) 03/12/2023 Hyperlipidemia On Treatment 03/12/2023 Atrial Fibrillation Paroxysmal (HCC) 03/12/2023 Monitoring For Therapeutic Drug Therapy 03/12/2023 Debeaker (Current) Anticoagulant Treatment 03/12/2023 Hypertensive Heart With Heart Failure And Chronic Kidney Disease (CKD) Stage 3a Glomerular Filtration Rate (GFR) 45 To 59 (HCC) 03/19/2023 Hyperlipidemia On Treatment 03/19/2023 Atrial Fibrillation Paroxysmal (HCC) 03/19/2023 Monitoring For Therapeutic Drug Therapy 03/19/2023 Debeaker (Current) Anticoagulant Treatment 03/19/2023 Hypertensive Heart With [...] 04/02/2023 Monitoring For Therapeutic Drug Therapy 04/02/2023 Debeaker (Current) Anticoagulant Treatment 04/02/2023 Hypertensive Heart With Heart Failure And Chronic Kidney Disease (CKD) Stage 3a Glomerular Filtration Rate (GFR) 45 To 59 (HCC) 04/02/2023 Hyperlipidemia On Treatment 04/02/2023 Atrial Fibrillation Paroxysmal (HCC) 04/02/2023 Monitoring For Therapeutic Drug Therapy 04/02/2023 Halfway (Current) Anticoagulant Treatment 04/02/2023 Hypertensive Heart With [...] 04/30/2023 Monitoring For Therapeutic Drug Therapy 04/30/2023 Halfway (Current) Anticoagulant Treatment 04/30/2023 Hypertensive Heart With Heart Failure And Chronic Kidney Disease (CKD) Stage 3a Glomerular Filtration Rate (GFR) 45 To 59 (HCC) 04/30/2023 Hyperlipidemia On Treatment 04/30/2023 Atrial Fibrillation Paroxysmal (HCC) 04/30/2023 Monitoring For Therapeutic Drug Therapy 04/30/2023 Debeaker (Current) Anticoagulant Treatment 04/30/2023 Hypertensive Heart With Heart Failure And Chronic Kidney Disease (CKD) Stage 3a Glomerular Filtration Rate (GFR) 45 To 59 (HCC) 05/07/2023 Hyperlipidemia On Treatment 05/07/2023 Atrial Fibrillation Paroxysmal (HCC) 05/07/2023 Monitoring For Therapeutic Drug Therapy 05/07/2023 Halfway (Current) Anticoagulant Treatment 05/07/2023 Hypertensive Heart With Heart Failure And Chronic Kidney Disease (CKD) Stage 3a Glomerular Filtration Rate (GFR) 45 To 59 (HCC) 05/07/2023 Hyperlipidemia On Treatment 05/07/2023 Atrial Fibrillation Paroxysmal (HCC) 05/07/2023 Monitoring For Therapeutic Drug Therapy 05/07/2023 Halfway (Current) Anticoagulant Treatment 05/07/2023 Atrial Fibrillation Paroxysmal (HCC) 05/21/2023 Hypertensive Heart With Heart Failure And Chronic Kidney Disease (CKD) Stage 3a Glomerular Filtration Rate (GFR) 45 To 59 (HCC) 05/21/2023 Hyperlipidemia On Treatment 05/21/2023 Atrial Fibrillation Paroxysmal (HCC) 05/21/2023 Monitoring For Therapeutic Drug Therapy 05/21/2023 Debeaker (Current) Anticoagulant Treatment 05/21/2023 Hypertensive Heart With Heart Failure And Chronic Kidney Disease (CKD) Stage 3a Glomerular Filtration Rate (GFR) 45 To 59 (HCC) 05/27/2023 Hyperlipidemia On Treatment 05/27/2023 Atrial Fibrillation Paroxysmal (HCC) 05/27/2023 Monitoring For Therapeutic Drug Therapy 05/27/2023 Halfway (Current) Anticoagulant Treatment 05/27/2023 Hypertensive Heart With Heart Failure And Chronic Kidney Disease (CKD) Stage 3a Glomerular Filtration Rate (GFR) 45 To 59 (HCC) 05/27/2023 Hyperlipidemia On Treatment 05/27/2023 Atrial Fibrillation Paroxysmal (HCC) 05/27/2023 Monitoring For Therapeutic Drug Therapy 05/27/2023 Halfway (Current) Anticoagulant Treatment 05/27/2023 Hypertensive Heart With Heart Failure And Chronic Kidney Disease (CKD) Stage 3a Glomerular Filtration Rate (GFR) 45 To 59 (HCC) 06/03/2023 Hyperlipidemia On Treatment 06/03/2023 Atrial Fibrillation Paroxysmal (HCC) 06/03/2023 Monitoring For Therapeutic Drug Therapy 06/03/2023 Halfway (Current) Anticoagulant Treatment 06/03/2023 Hypertensive Heart With Heart Failure And Chronic Kidney Disease (CKD) Stage 3a Glomerular Filtration Rate (GFR) 45 To 59 (HCC) 06/03/2023 Hyperlipidemia On Treatment 06/03/2023 Atrial Fibrillation Paroxysmal (HCC) 06/03/2023 Monitoring For Therapeutic Drug Therapy 06/03/2023 Halfway (Current) Anticoagulant Treatment 06/03/2023 Atrial Fibrillation Paroxysmal (HCC) 06/22/2023 Hypertensive Heart With Heart Failure And Chronic Kidney Disease (CKD) Stage 3a Glomerular Filtration Rate (GFR) 45 To 59 (HCC) 06/22/2023 Hyperlipidemia On Treatment 06/22/2023 Atrial Fibrillation Paroxysmal (HCC) 06/22/2023 Monitoring For Therapeutic Drug Therapy 06/22/2023 Halfway (Current) Anticoagulant Treatment 06/22/2023 Atrial Fibrillation Unspecified (HCC) 06/22/2023 Atrial Fibrillation Paroxysmal (HCC) 06/22/2023 Halfway (Current) Anticoagulant Treatment 06/22/2023 Monitoring For Therapeutic [...] 06/24/2023 Monitoring For Therapeutic Drug Therapy 06/24/2023 Halfway (Current) Anticoagulant Treatment 06/24/2023 Hypertensive Heart With [...] 07/06/2023 Monitoring For Therapeutic Drug Therapy 07/06/2023 Debeaker (Current) Anticoagulant Treatment 07/06/2023 Atrial Fibrillation Paroxysmal (HCC) 07/06/2023 Hypertensive Heart With Heart Failure And Chronic Kidney Disease (CKD) Stage 3a Glomerular Filtration Rate (GFR) 45 To 59 (HCC) 07/06/2023 Hyperlipidemia On Treatment 07/06/2023 Monitoring For Therapeutic Drug Therapy 07/06/2023 Halfway (Current) Anticoagulant Treatment 07/06/2023 Hypertensive Heart With Heart Failure And Chronic Kidney Disease (CKD) Stage 3a Glomerular Filtration Rate (GFR) 45 To 59 (HCC) 08/05/2023 Hyperlipidemia On Treatment 08/05/2023 Atrial Fibrillation Paroxysmal (HCC) 08/05/2023 Monitoring For Therapeutic Drug Therapy 08/05/2023 Halfway (Current) Anticoagulant Treatment 08/05/2023 Hypertensive Heart With Heart Failure And Chronic Kidney Disease (CKD) Stage 3a Glomerular Filtration Rate (GFR) 45 To 59 (HCC) 08/06/2023 Hyperlipidemia On Treatment 08/06/2023 Atrial Fibrillation Paroxysmal (HCC) 08/06/2023 Monitoring For Therapeutic Drug Therapy 08/06/2023 Halfway (Current) Anticoagulant Treatment 08/06/2023 Hypertensive Heart With Heart Failure And Chronic Kidney Disease (CKD) Stage 3a Glomerular Filtration Rate (GFR) 45 To 59 (HCC) 08/13/2023 Hyperlipidemia On Treatment 08/13/2023 Atrial Fibrillation Paroxysmal (HCC) 08/13/2023 Monitoring For Therapeutic Drug Therapy 08/13/2023 Debeaker (Current) Anticoagulant Treatment 08/13/2023 Hypertensive Heart With Heart Failure And Chronic Kidney Disease (CKD) Stage 3a Glomerular Filtration Rate (GFR) 45 To 59 (HCC) 08/16/2023 Hyperlipidemia On Treatment 08/16/2023 Atrial Fibrillation Paroxysmal (HCC) 08/16/2023 Monitoring For Therapeutic Drug Therapy 08/16/2023 Debeaker (Current) Anticoagulant Treatment 08/16/2023 Hypertensive Heart With Heart Failure And Chronic Kidney Disease (CKD) Stage 3a Glomerular Filtration Rate (GFR) 45 To 59 (HCC) 08/17/2023 Hyperlipidemia On Treatment 08/17/2023 Atrial Fibrillation Paroxysmal (HCC) 08/17/2023 Monitoring For Therapeutic Drug Therapy 08/17/2023 Halfway (Current) Anticoagulant Treatment 08/17/2023 Hypertensive Heart With Heart Failure And Chronic Kidney Disease (CKD) Stage 3a Glomerular Filtration Rate (GFR) 45 To 59 (HCC) 08/24/2023 Hyperlipidemia On Treatment 08/24/2023 Atrial Fibrillation Paroxysmal (HCC) 08/24/2023 Monitoring For Therapeutic Drug Therapy 08/24/2023 Halfway (Current) Anticoagulant Treatment 08/24/2023 Hypertensive Heart With Heart Failure And Chronic Kidney Disease (CKD) Stage 3a Glomerular Filtration Rate (GFR) 45 To 59 (HCC) 08/24/2023 Hyperlipidemia On Treatment 08/24/2023 Atrial Fibrillation Paroxysmal (HCC) 08/24/2023 Monitoring For Therapeutic Drug Therapy 08/24/2023 Debeaker (Current) Anticoagulant Treatment 08/24/2023 Hypertensive Heart With Heart Failure And Chronic Kidney Disease (CKD) Stage 3a Glomerular Filtration Rate (GFR) 45 To 59 (HCC) 08/27/2023 Hyperlipidemia On Treatment 08/27/2023 Atrial Fibrillation Paroxysmal (HCC) 08/27/2023 Monitoring For Therapeutic Drug Therapy 08/27/2023 Halfway (Current) Anticoagulant Treatment 08/27/2023 Hypertensive Heart With Heart Failure And Chronic Kidney Disease (CKD) Stage 3a Glomerular Filtration Rate (GFR) 45 To 59 (HCC) 08/27/2023 Hyperlipidemia On Treatment 08/27/2023 Atrial Fibrillation Paroxysmal (HCC) 08/27/2023 Monitoring For Therapeutic Drug Therapy 08/27/2023 Halfway (Current) Anticoagulant Treatment 08/27/2023 Hypertensive Heart With Heart Failure And Chronic Kidney Disease (CKD) Stage 3a Glomerular Filtration Rate (GFR) 45 To 59 (HCC) 09/02/2023 Hyperlipidemia On Treatment 09/02/2023 Atrial Fibrillation Paroxysmal (HCC) 09/02/2023 Monitoring For Therapeutic Drug Therapy 09/02/2023 Halfway (Current) Anticoagulant Treatment 09/02/2023 Hypertensive Heart With Heart Failure And Chronic Kidney Disease (CKD) Stage 3a Glomerular Filtration Rate (GFR) 45 To 59 (HCC) 09/02/2023 Hyperlipidemia On Treatment 09/02/2023 Atrial Fibrillation Paroxysmal (HCC) 09/02/2023 Monitoring For Therapeutic Drug Therapy 09/02/2023 Halfway (Current) Anticoagulant Treatment 09/02/2023 Hypertensive Heart With Heart Failure And Chronic Kidney Disease (CKD) Stage 3a Glomerular Filtration Rate (GFR) 45 To 59 (HCC) 09/08/2023 Hyperlipidemia On Treatment 09/08/2023 Atrial Fibrillation Paroxysmal (HCC) 09/08/2023 Monitoring For Therapeutic Drug Therapy 09/08/2023 Halfway (Current) Anticoagulant Treatment 09/08/2023 Hypertensive Heart With Heart Failure And Chronic Kidney Disease (CKD) Stage 3a Glomerular Filtration Rate (GFR) 45 To 59 (HCC) 09/08/2023 Hyperlipidemia On Treatment 09/08/2023 Atrial Fibrillation Paroxysmal (HCC) 09/08/2023 Monitoring For Therapeutic Drug Therapy 09/08/2023 Halfway (Current) Anticoagulant Treatment 09/08/2023 Hypertensive Heart With Heart Failure And Chronic Kidney Disease (CKD) Stage 3a Glomerular Filtration Rate (GFR) 45 To 59 (HCC) 09/14/2023 Hyperlipidemia On Treatment 09/14/2023 Atrial Fibrillation Paroxysmal (HCC) 09/14/2023 Monitoring For Therapeutic Drug Therapy 09/14/2023 Halfway (Current) Anticoagulant Treatment 09/14/2023 Hypertensive Heart With Heart Failure And Chronic Kidney Disease (CKD) Stage 3a Glomerular Filtration Rate (GFR) 45 To 59 (HCC) 09/14/2023 Hyperlipidemia On Treatment 09/14/2023 Atrial Fibrillation Paroxysmal (HCC) 09/14/2023 Monitoring For Therapeutic Drug Therapy 09/14/2023 Halfway (Current) Anticoagulant Treatment 09/14/2023 Hypertensive Heart With Heart Failure And Chronic Kidney Disease (CKD) Stage 3a Glomerular Filtration Rate (GFR) 45 To 59 (HCC) 09/21/2023 Hyperlipidemia On Treatment 09/21/2023 Atrial Fibrillation Paroxysmal (HCC) 09/21/2023 Monitoring For Therapeutic Drug Therapy 09/21/2023 Debeaker (Current) Anticoagulant Treatment 09/21/2023 Hypertensive Heart With Heart Failure And Chronic Kidney Disease (CKD) Stage 3a Glomerular Filtration Rate (GFR) 45 To 59 (HCC) 09/21/2023 Hyperlipidemia On Treatment 09/21/2023 Atrial Fibrillation Paroxysmal (HCC) 09/21/2023 Monitoring For Therapeutic Drug Therapy 09/21/2023 Debeaker (Current) Anticoagulant Treatment 09/21/2023 Hypertensive Heart With Heart Failure And Chronic Kidney Disease (CKD) Stage 3a Glomerular Filtration Rate (GFR) 45 To 59 (HCC) 09/24/2023 Hyperlipidemia On Treatment 09/24/2023 Atrial Fibrillation Paroxysmal (HCC) 09/24/2023 Monitoring For Therapeutic Drug Therapy 09/24/2023 Debeaker (Current) Anticoagulant Treatment 09/24/2023 Hypertensive Heart With Heart Failure And Chronic Kidney Disease (CKD) Stage 3a Glomerular Filtration Rate (GFR) 45 To 59 (HCC) 09/24/2023 Hyperlipidemia On Treatment 09/24/2023 Atrial Fibrillation Paroxysmal (HCC) 09/24/2023 Monitoring For Therapeutic Drug Therapy 09/24/2023 Debeaker (Current) Anticoagulant Treatment 09/24/2023 Hypertensive Heart With Heart Failure And Chronic Kidney Disease (CKD) Stage 3a Glomerular Filtration Rate (GFR) 45 To 59 (HCC) 10/01/2023 Hyperlipidemia On Treatment 10/01/2023 Atrial Fibrillation Paroxysmal (HCC) 10/01/2023 Monitoring For Therapeutic Drug Therapy 10/01/2023 Debeaker (Current) Anticoagulant Treatment 10/01/2023 Hypertensive Heart And Chronic Kidney Disease With Heart Failure And Stage 1 To 4 Chronic Kidney Disease Or Unspecified Chronic Kidney Disease (HCC) 10/04/2023 Hyperlipidemia On Treatment 10/04/2023 Atrial Fibrillation Paroxysmal (HCC) 10/04/2023 Monitoring For Therapeutic Drug Therapy 10/04/2023 Debeaker (Current) Anticoagulant Treatment 10/04/2023 Atrial Fibrillation Paroxysmal (HCC) 10/07/2023 Hypertensive Heart And Chronic Kidney Disease With Heart Failure And Stage 1 To 4 Chronic Kidney Disease Or Unspecified Chronic Kidney Disease (HCC) 10/08/2023 Hyperlipidemia On Treatment 10/08/2023 Atrial Fibrillation Paroxysmal (HCC) 10/08/2023 Monitoring For Therapeutic Drug Therapy 10/08/2023 Halfway (Current) Anticoagulant Treatment 10/08/2023 Hypertensive Heart And Chronic Kidney Disease With Heart Failure And Stage 1 To 4 Chronic Kidney Disease Or Unspecified Chronic Kidney Disease (HCC) 10/15/2023 Hyperlipidemia On Treatment 10/15/2023 Atrial Fibrillation Paroxysmal (HCC) 10/15/2023 Monitoring For Therapeutic Drug Therapy 10/15/2023 Debeaker (Current) Anticoagulant Treatment 10/15/2023 Hypertensive Heart And Chronic Kidney Disease With Heart Failure And Stage 1 To 4 Chronic Kidney Disease Or Unspecified Chronic Kidney Disease (HCC) 10/19/2023 Hyperlipidemia On Treatment 10/19/2023 Atrial Fibrillation Paroxysmal (HCC) 10/19/2023 Monitoring For Therapeutic Drug Therapy 10/19/2023 Halfway (Current) Anticoagulant Treatment 10/19/2023 Hypertensive Heart And Chronic Kidney Disease With Heart Failure And Stage 1 To 4 Chronic Kidney Disease Or Unspecified Chronic Kidney Disease (HCC) 10/28/2023 Hyperlipidemia On Treatment 10/28/2023 Atrial Fibrillation Paroxysmal (HCC) 10/28/2023 Monitoring For Therapeutic Drug Therapy 10/28/2023 Halfway (Current) Anticoagulant Treatment 10/28/2023 Hypertensive Heart And Chronic Kidney Disease With Heart Failure And Stage 1 To 4 Chronic Kidney Disease Or Unspecified Chronic Kidney Disease (HCC) 10/28/2023 Hyperlipidemia On Treatment 10/28/2023 Atrial Fibrillation Paroxysmal (HCC) 10/28/2023 Monitoring For Therapeutic Drug Therapy 10/28/2023 Halfway (Current) Anticoagulant Treatment 10/28/2023 Hypertensive Heart And Chronic Kidney Disease With Heart Failure And Stage 1 To 4 Chronic Kidney Disease Or Unspecified Chronic Kidney Disease (HCC) 11/02/2023 Hyperlipidemia On Treatment 11/02/2023 Atrial Fibrillation Paroxysmal (HCC) 11/02/2023 Monitoring For Therapeutic Drug Therapy 11/02/2023 Debeaker (Current) Anticoagulant Treatment 11/02/2023 Hypertensive Heart And Chronic Kidney Disease With Heart Failure And Stage 1 To 4 Chronic Kidney Disease Or Unspecified Chronic Kidney Disease (HCC) 11/02/2023 Hyperlipidemia On Treatment 11/02/2023 Atrial Fibrillation Paroxysmal (HCC) 11/02/2023 Monitoring For Therapeutic Drug Therapy 11/02/2023 Debeaker (Current) Anticoagulant Treatment 11/02/2023 Hypertensive Heart And Chronic Kidney Disease With Heart Failure And Stage 1 To 4 Chronic Kidney Disease Or Unspecified Chronic Kidney Disease (HCC) 11/02/2023 Hyperlipidemia On Treatment 11/02/2023 Atrial Fibrillation Paroxysmal (HCC) 11/02/2023 Monitoring For Therapeutic Drug Therapy 11/02/2023 Halfway (Current) Anticoagulant Treatment 11/02/2023 Atrial Fibrillation Paroxysmal (HCC) 11/12/2023 Monitoring For Therapeutic Drug Therapy 11/12/2023 Halfway (Current) Anticoagulant Treatment 11/12/2023 Hypertensive Heart And Chronic Kidney Disease With Heart Failure And Stage 1 To 4 Chronic Kidney Disease Or Unspecified Chronic Kidney Disease (HCC) 11/12/2023 Hyperlipidemia On Treatment 11/12/2023 Atrial Fibrillation Paroxysmal (HCC) 11/12/2023 Monitoring For Therapeutic Drug Therapy 11/12/2023 Halfway (Current) Anticoagulant Treatment 11/12/2023 Hypertensive Heart And Chronic Kidney Disease With Heart Failure And Stage 1 To 4 Chronic Kidney Disease Or Unspecified Chronic Kidney Disease (HCC) 11/22/2023 Hyperlipidemia On Treatment 11/22/2023 Atrial Fibrillation Paroxysmal (HCC) 11/22/2023 Monitoring For Therapeutic Drug Therapy 11/22/2023 Debeaker (Current) Anticoagulant Treatment 11/22/2023 Hypertensive Heart And Chronic Kidney Disease With Heart Failure And Stage 1 To 4 Chronic Kidney Disease Or Unspecified Chronic Kidney Disease (HCC) 11/22/2023 Hyperlipidemia On Treatment 11/22/2023 Atrial Fibrillation Paroxysmal (HCC) 11/22/2023 Monitoring For Therapeutic Drug Therapy 11/22/2023 Debeaker (Current) Anticoagulant Treatment 11/22/2023 Hypertensive Heart And Chronic Kidney Disease With Heart Failure And Stage 1 To 4 Chronic Kidney Disease Or Unspecified Chronic Kidney Disease (HCC) 12/03/2023 Hyperlipidemia On Treatment 12/03/2023 Atrial Fibrillation Paroxysmal (HCC) 12/03/2023 Monitoring For Therapeutic Drug Therapy 12/03/2023 Halfway (Current) Anticoagulant Treatment 12/03/2023 Hypertensive Heart And Chronic Kidney Disease With Heart Failure And Stage 1 To 4 Chronic Kidney Disease Or Unspecified Chronic Kidney Disease (HCC) 12/03/2023 Hyperlipidemia On Treatment 12/03/2023 Atrial Fibrillation Paroxysmal (HCC) 12/03/2023 Monitoring For Therapeutic Drug Therapy 12/03/2023 Halfway (Current) Anticoagulant Treatment 12/03/2023 Atrial Fibrillation Paroxysmal (HCC) 12/06/2023 Atrial Fibrillation Paroxysmal (HCC) 12/13/2023 Hypertensive Heart And Chronic Kidney Disease With Heart Failure And Stage 1 To 4 Chronic Kidney Disease Or Unspecified Chronic Kidney Disease (HCC) 12/14/2023 Hyperlipidemia On Treatment 12/14/2023 Atrial Fibrillation Paroxysmal (HCC) 12/14/2023 Monitoring For Therapeutic Drug Therapy 12/14/2023 Halfway (Current) Anticoagulant Treatment 12/14/2023 Hypertensive Heart And Chronic Kidney Disease With Heart Failure And Stage 1 To 4 Chronic Kidney Disease Or Unspecified Chronic Kidney Disease (HCC) 12/15/2023 Hyperlipidemia On Treatment 12/15/2023 Atrial Fibrillation Paroxysmal (HCC) 12/15/2023 Monitoring For Therapeutic Drug Therapy 12/15/2023 Halfway (Current) Anticoagulant Treatment 12/15/2023 Atrial Fibrillation Paroxysmal (HCC) 12/15/2023 Hypertensive Heart And Chronic Kidney Disease With Heart Failure And Stage 1 To 4 Chronic Kidney Disease Or Unspecified Chronic Kidney Disease (HCC) 12/17/2023 Hyperlipidemia On Treatment 12/17/2023 Atrial Fibrillation Paroxysmal (HCC) 12/17/2023 Monitoring For Therapeutic Drug Therapy 12/17/2023 Debeaker (Current) Anticoagulant Treatment 12/17/2023 Hypertensive Heart And Chronic Kidney Disease With Heart Failure And Stage 1 To 4 Chronic Kidney Disease Or Unspecified Chronic Kidney Disease (HCC) 12/20/2023 Hyperlipidemia On Treatment 12/20/2023 Atrial Fibrillation Paroxysmal (HCC) 12/20/2023 Monitoring For Therapeutic Drug Therapy 12/20/2023 Halfway (Current) Anticoagulant Treatment 12/20/2023 Hypertensive Heart And Chronic Kidney Disease With Heart Failure And Stage 1 To 4 Chronic Kidney Disease Or Unspecified Chronic Kidney Disease (HCC) 12/20/2023 Hyperlipidemia On Treatment 12/20/2023 Atrial Fibrillation Paroxysmal (HCC) 12/20/2023 Monitoring For Therapeutic Drug Therapy 12/20/2023 Halfway (Current) Anticoagulant Treatment 12/20/2023 Care Teams Cnc Specialist Relationship Specialty Start Date End Date Patrick Erickson D[address]. [id number] [place] [id number] PCP - General Internal Medicine 08/12/22
--- OUTSIDE RECORDS SUMMARY | 2023-12-24 08:44 | XMS_ITS | Referral Summary ---
Author Organization [facility] Address [address] [place] [address] Care Team Providers Care Retort Forker Name Role Phone Patrick Erickson D.O. Primary Care Provider [phone] Source Comments Patient records contain information from all sites at [facility]. For routine questions regarding patient records, call [phone] during business hours, M-F 8:00 AM - 5:00 PM Central Time. Record requests for emergency care only can be directed to [phone] at any time.[facility] Encounters Date Type Department Care Team Description 12/20/2023 4:20 PM CDT Anticoagulation Visit Department of Anticoagulation in [place], [place] [address] [place] [phone] Soheila Zapata P.A.-Ashish., M.S. Atrial Fibrillation Paroxysmal (HCC) (Primary Dx); Hypertensive Heart And Chronic Kidney Disease With Heart Failure And Stage 1 To 4 Chronic Kidney Disease Or Unspecified Chronic Kidney Disease (HCC); Hyperlipidemia On Treatment; Monitoring For Therapeutic Drug Therapy; Fpc (Current) Anticoagulant Treatment 12/20/2023 3:50 PM CDT - 12/20/2023 11:59 PM CDT Hospital Encounter Department of Laboratory Medicine in [address] [phone] Patrick Erickson D.O. Hypertensive Heart And Chronic Kidney Disease With Heart Failure And Stage 1 To 4 Chronic Kidney Disease Or Unspecified Chronic Kidney Disease (HCC); Hyperlipidemia On Treatment; Atrial Fibrillation Paroxysmal (HCC); Monitoring For Therapeutic Drug Therapy; Hadoop Developer (Current) Anticoagulant Treatment Discharge Disposition: Home or Self Care 12/17/2023 Clinical Communication Department of Anticoagulation in [place], [place] [address] [place] [phone] La Mendoza RAziza Anticoagulation (Unable to come in for INR today) 12/15/2023 Clinical Communication Department of Anticoagulation in [place], [place] [address] [place] [phone] Alea Eaton R.N. Anticoagulation (DOAC) 12/15/2023 4:49 PM CDT - 12/15/2023 11:59 PM CDT Hospital Encounter Department of Laboratory Medicine in [address] [phone] Patrick Erickson D.O. Atrial Fibrillation Paroxysmal (HCC) Discharge Disposition: Home or Self Care 12/14/2023 11:30 AM CDT Anticoagulation Visit Department of Anticoagulation in [address] [phone] Soheila Zapata P.A.-C., M.S. Hypertensive Heart And Chronic Kidney Disease With Heart Failure And Stage 1 To 4 Chronic Kidney Disease Or Unspecified Chronic Kidney Disease (HCC) (Primary Dx); Hyperlipidemia On Treatment; Atrial Fibrillation Paroxysmal (HCC); Monitoring For Therapeutic Drug Therapy; Hadoop Developer (Current) Anticoagulant Treatment 12/13/2023 4:15 PM CDT - 12/13/2023 11:59 PM CDT Hospital Encounter Department of Laboratory Medicine in [address] [phone] Patrick Erickson D.O. Atrial Fibrillation Paroxysmal (HCC) Discharge Disposition: Home or Self Care 12/10/2023 Refill Department of Internal Medicine in [place], [place] [address] [place] [phone] Patrick Erickson D.O. Med Refill 12/06/2023 Clinical Communication Department of Anticoagulation in [place], [place] [address] [place] [phone] Isa Callahan R.N. Anticoagulation (INR - ordered by provider ) 12/06/2023 Clinical Communication Department of Cardiovascular Diseases in [place], [place] [address] [place] [address] Roberto Dumont APRN CHowieN.P. Med Question 12/03/2023 2:50 PM CDT - 12/03/2023 11:59 PM CDT Hospital Encounter Department of Laboratory Medicine in [place], [place] [address] [place] [address] Patrick Erickson D.O. Hypertensive Heart And Chronic Kidney Disease With Heart Failure And Stage 1 To 4 Chronic Kidney Disease Or Unspecified Chronic Kidney Disease (HCC); Hyperlipidemia On Treatment; Atrial Fibrillation Paroxysmal (HCC); Monitoring For Therapeutic Drug Therapy; Hadoop Developer (Current) Anticoagulant Treatment Discharge Disposition: Home or Self Care 12/03/2023 3:50 PM CDT Anticoagulation Visit Department of Anticoagulation in [place], [place] [address] [place] [address] Soheila Zapata, Rafi.-Ashish., M.S. Atrial Fibrillation Paroxysmal (HCC) (Primary Dx); Hypertensive Heart And Chronic Kidney Disease With Heart Failure And Stage 1 To 4 Chronic Kidney Disease Or Unspecified Chronic Kidney Disease (HCC); Hyperlipidemia On Treatment; Monitoring For Therapeutic Drug Therapy; Fpc (Current) Anticoagulant Treatment 12/01/2023 Clinical Communication Department of Orthopedic Surgery in [place], [place] [address] [place] [address] Sher Bauman M.D. Arm Injury; Post Ed Visit Follow-up 11/29/2023 Clinical Communication Department of Family Medicine, [address] [place] [address] [place] [address] Butch Sanchez R.N. COVID Treatment Review 11/27/2023 Nurse Triage Department of Internal Medicine in [place], [place] [address] [place] [address] Kari Olivarez R.N. Cough 11/22/2023 4:00 PM CDT Anticoagulation Visit Department of Anticoagulation in [place], [place] [address] [place] [address] Soheila Zapata P.A.-C., M.S. Hypertensive Heart And Chronic Kidney Disease With Heart Failure And Stage 1 To 4 Chronic Kidney Disease Or Unspecified Chronic Kidney Disease (HCC) (Primary Dx); Hyperlipidemia On Treatment; Atrial Fibrillation Paroxysmal (HCC); Monitoring For Therapeutic Drug Therapy; Fpc (Current) Anticoagulant Treatment 11/22/2023 3:20 PM CDT - 11/22/2023 11:59 PM CDT Hospital Encounter Department of Laboratory Medicine in [address] [phone] Patrick Erickson D.O. Hypertensive Heart And Chronic Kidney Disease With Heart Failure And Stage 1 To 4 Chronic Kidney Disease Or Unspecified Chronic Kidney Disease (HCC); Hyperlipidemia On Treatment; Atrial Fibrillation Paroxysmal (HCC); Monitoring For Therapeutic Drug Therapy; Hadoop Developer (Current) Anticoagulant Treatment Discharge Disposition: Home or Self Care 11/12/2023 11:50 AM CDT - 11/12/2023 11:59 PM CDT Hospital Encounter Department of Laboratory Medicine in [address] [phone] Patrick Erickson D.O. Atrial Fibrillation Paroxysmal (HCC); Monitoring For Therapeutic Drug Therapy; Hadoop Developer (Current) Anticoagulant Treatment Discharge Disposition: Home or Self Care 11/12/2023 12:30 PM CDT Anticoagulation Visit Department of Anticoagulation in [place], [place] [address] [place] [phone] Soheila Zapata P.A.-C., M.S. Hypertensive Heart And Chronic Kidney Disease With Heart Failure And Stage 1 To 4 Chronic Kidney Disease Or Unspecified Chronic Kidney Disease (HCC) (Primary Dx); Hyperlipidemia On Treatment; Atrial Fibrillation Paroxysmal (HCC); Monitoring For Therapeutic Drug Therapy; Hadoop Developer (Current) Anticoagulant Treatment 11/09/2023 Orders Only [facility] Patrick Erickson D.O. 11/02/2023 Clinical Communication Department of Anticoagulation in [place], [place] [address] [place] [phone] Cullen Guillen R.N. Anticoagulation (CCM Update-New PCP) 11/02/2023 3:30 PM CDT Anticoagulation Visit Department of Anticoagulation in [place], [place] [address] [place] [phone] Soheila Zapata P.A.-C., M.S. Hypertensive Heart And Chronic Kidney Disease With Heart Failure And Stage 1 To 4 Chronic Kidney Disease Or Unspecified Chronic Kidney Disease (HCC) (Primary Dx); Hyperlipidemia On Treatment; Atrial Fibrillation Paroxysmal (HCC); Monitoring For Therapeutic Drug Therapy; Fpc (Current) Anticoagulant Treatment 11/02/2023 2:50 PM CDT - 11/02/2023 11:59 PM CDT Hospital Encounter Department of Laboratory Medicine [address] [phone] Patrick Erickson D.O. Hypertensive Heart And Chronic Kidney Disease With Heart Failure And Stage 1 To 4 Chronic Kidney Disease Or Unspecified Chronic Kidney Disease (HCC); Hyperlipidemia On Treatment; Atrial Fibrillation Paroxysmal (HCC); Monitoring For Therapeutic Drug Therapy; Hadoop Developer (Current) Anticoagulant Treatment Discharge Disposition: Home or Self Care 10/28/2023 3:30 PM CDT Anticoagulation Visit Department of Anticoagulation in [place], [place] [address] [place] [phone] Soheila Zapata P.A.-C., M.S. Hypertensive Heart And Chronic Kidney Disease With Heart Failure And Stage 1 To 4 Chronic Kidney Disease Or Unspecified Chronic Kidney Disease (HCC) (Primary Dx); Hyperlipidemia On Treatment; Atrial Fibrillation Paroxysmal (HCC); Monitoring For Therapeutic Drug Therapy; Fpc (Current) Anticoagulant Treatment 10/28/2023 2:50 PM CDT - 10/28/2023 11:59 PM CDT Hospital Encounter Department of Laboratory Medicine in [address] [phone] Patrick Erickson D.O. Hypertensive Heart And Chronic Kidney Disease With Heart Failure And Stage 1 To 4 Chronic Kidney Disease Or Unspecified Chronic Kidney Disease (HCC); Hyperlipidemia On Treatment; Atrial Fibrillation Paroxysmal (HCC); Monitoring For Therapeutic Drug Therapy; Fpc (Current) Anticoagulant Treatment Discharge Disposition: Home or Self Care 10/19/2023 10:10 AM CDT Anticoagulation Visit Department of Anticoagulation in [place], [place] [address] [place] [phone] Soheila Zapata P.A.-Ashish., M.S. Hypertensive Heart And Chronic Kidney Disease With Heart Failure And Stage 1 To 4 Chronic Kidney Disease Or Unspecified Chronic Kidney Disease (HCC) (Primary Dx); Hyperlipidemia On Treatment; Atrial Fibrillation Paroxysmal (HCC); Monitoring For Therapeutic Drug Therapy; Hadoop Developer (Current) Anticoagulant Treatment 10/15/2023 2:50 PM CDT - 10/15/2023 11:59 PM CDT Hospital Encounter Department of Laboratory Medicine in [address] [phone] Patrick Erickson D.O. Hypertensive Heart And Chronic Kidney Disease With Heart Failure And Stage 1 To 4 Chronic Kidney Disease Or Unspecified Chronic Kidney Disease (HCC); Hyperlipidemia On Treatment; Atrial Fibrillation Paroxysmal (HCC); Monitoring For Therapeutic Drug Therapy; Fpc (Current) Anticoagulant Treatment Discharge Disposition: Home or Self Care 10/08/2023 9:30 AM CDT Anticoagulation Visit Department of Anticoagulation in [address] [phone] Soheila Zapata P.Genie.-C., M.S. Hypertensive Heart And Chronic Kidney Disease With Heart Failure And Stage 1 To 4 Chronic Kidney Disease Or Unspecified Chronic Kidney Disease (HCC) (Primary Dx); Hyperlipidemia On Treatment; Atrial Fibrillation Paroxysmal (HCC); Monitoring For Therapeutic Drug Therapy; Fpc (Current) Anticoagulant Treatment 10/07/2023 2:49 PM CDT - 10/07/2023 11:59 PM CDT Hospital Encounter Department of Laboratory Medicine in [address] [phone] Patrick Erickson D.O. Atrial Fibrillation Paroxysmal (HCC) Discharge Disposition: Home or Self Care 10/04/2023 3:50 PM CDT Anticoagulation Visit Department of Anticoagulation in [place], [place] [address] [place] [phone] Soheila Zapata P.A.-C., M.S. Atrial Fibrillation Paroxysmal (HCC) (Primary Dx); Hypertensive Heart And Chronic Kidney Disease With Heart Failure And Stage 1 To 4 Chronic Kidney Disease Or Unspecified Chronic Kidney Disease (HCC); Hyperlipidemia On Treatment; Monitoring For Therapeutic Drug Therapy; Fpc (Current) Anticoagulant Treatment 10/01/2023 Clinical Communication Department of Anticoagulation in [place], [place] [address] [place] [address] La Mendoza R.N. Anticoagulation (Out of range INR.) 10/01/2023 2:30 PM CDT - 10/01/2023 11:59 PM CDT Hospital Encounter Department of Laboratory Medicine in [address] [phone] Patrick Erickson D.O. Hypertensive Heart With Heart Failure And Chronic Kidney Disease (CKD) Stage 3a Glomerular Filtration Rate (GFR) 45 To 59 (HCC); Hyperlipidemia On Treatment; Atrial Fibrillation Paroxysmal (HCC); Monitoring For Therapeutic Drug Therapy; Hadoop Developer (Current) Anticoagulant Treatment Discharge Disposition: Home or Self Care 09/24/2023 3:30 PM CDT Anticoagulation Visit Department of Anticoagulation in [place], [place] [address] [place] [phone] Soheila Zapata P.A.-C., M.S. Hypertensive Heart With Heart Failure And Chronic Kidney Disease (CKD) Stage 3a Glomerular Filtration Rate (GFR) 45 To 59 (HCC) (Primary Dx); Hyperlipidemia On Treatment; Atrial Fibrillation Paroxysmal (HCC); Monitoring For Therapeutic Drug Therapy; Fpc (Current) Anticoagulant Treatment 09/24/2023 2:50 PM CDT - 09/24/2023 11:59 PM CDT Hospital Encounter Department of Laboratory Medicine in [address] [phone] Patrick Erickson D.O. Hypertensive Heart With Heart Failure And Chronic Kidney Disease (CKD) Stage 3a Glomerular Filtration Rate (GFR) 45 To 59 (HCC); Hyperlipidemia On Treatment; Atrial Fibrillation Paroxysmal (HCC); Monitoring For Therapeutic Drug Therapy; Fpc (Current) Anticoagulant Treatment Discharge Disposition: Home or Self Care from Last 3 Months Allergies Active Allergy Reactions Criticality Noted Date Comments Codeperla Hives (Reselect Reaction) 07/20/2014 [place] Shortness of breath (Reselect Reaction) 12/09/2021 [place] Medications CYANOCOBALAMIN, VITAMIN B-12, ORAL Vitamin B-12 016 Active CHOLECALCIFEROL , VITAMIN D3, ORAL Take 1 capsule by mouth daily. 016 Active cyclobenzaprine (FLEXERIL) 5 mg tablet Take 1 tablet (5 mg total) by mouth at bedtime as needed for muscle spasms. 30 tablet 022 Active [id number] 100 mg-150 mg- 50 mg-150 mg capsule [...] Fibrillation Paroxysmal (HCC),Monitorin g For Therapeutic Drug Therapy,Hadoop Developer (Current) Anticoagulant Treatment Please take as directed by your Anticoagulation Clinic. 15 tablet 024 2023 Discontinued warfarin (JANTOVEN) 5 mg tabletIndicatio ns:Hypertensive Heart With Heart Failure And Chronic Kidney Disease (CKD) Stage 3a Glomerular Filtration Rate (GFR) 45 To 59 (HCC),Hyperlipi demia On Treatment,Atria l Fibrillation Paroxysmal (HCC),Monitorin g For Therapeutic Drug Therapy,Fpc (Current) Anticoagulant Treatment Please take as directed by your Anticoagulation Clinic. 120 tablet 3 024 2023 Discontinued apixaban (Eliquis) 5 mg tablet Take 1 tablet (5 mg total) by mouth 2 (two) times a day. 180 tablet 3 024 2023 Discontinued(R jaclyn) Active Problems Problem Noted Date Diagnosed Date Atrial Fibrillation Paroxysmal 01/06/2022 Monitoring For Therapeutic Drug Therapy 01/07/20 Hadoop Developer (Current) Anticoagulant Treatment 03/2021 Radiculopathy Lumbar Fifth [...] In the past 12 months has e [employer], gas, oil, or water [employer] threatened to shut off services in your [...] often do you attend chur ch or christian services? 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 [address] [phone] 12/24/2023 3:50 PM CDT Appointment Department of Laboratory Medicine in [place], [place] [address] [place] [phone] Patrick Erickson D.O. [address] [phone] 12/24/2023 4:20 PM CDT Anticoagulation Visit Department of Anticoagulation in [place], [place] [address] [place] [address] Soheila Zapata P.A.-C., M.S. [address] [place] [phone] Arrived 12/28/2023 1:00 PM CDT Office Visit Department of Internal Medicine in [place], [place] [address] [place] [phone] Patrick Erickson D.O. [address] [phone] Procedures Procedure Name Priority Date/Time Associated Diagnosis Comments INR REFLEX, POCT, B Routine 12/20/2023 3 :59 PM CDT Hypertensive Heart And Chronic Kidney Disease With Heart Failure And Stage 1 To 4 Chronic Kidney Disease Or Unspecified Chronic Kidney Disease (HCC) Hyperlipidemia On Treatment Atrial Fibrillation Paroxysmal (HCC) Monitoring For Therapeutic Drug Therapy Hadoop Developer (Current) Anticoagulant Treatment COMPREHENSIVE METABOLIC PANEL, S/P Routine 12/15/2023 5:00 PM CDT Atrial Fibrillation Paroxysmal (HCC) INR REFLEX, POCT, B Routine 12/13/2023 4 [...] Paroxysmal (HCC) Monitoring For Therapeutic Drug Therapy Hadoop Developer (Current) Anticoagulant Treatment EXTM HOME SARS CORONAVIRUS-2 [...] Therapeutic Drug Therapy Fpc (Current) Anticoagulant Treatment INR REFLEX, POCT, B Routine 11/12/2023 12:09 PM CDT Atrial Fibrillation Paroxysmal (HCC) Monitoring For Therapeutic Drug Therapy Hadoop Developer (Current) Anticoagulant Treatment INR REFLEX, POCT, B Routine 11/02/2023 2 :58 PM CDT Hypertensive Heart And Chronic Kidney Disease With Heart Failure And Stage 1 To 4 Chronic Kidney Disease Or Unspecified Chronic Kidney Disease (HCC) Hyperlipidemia On Treatment Atrial Fibrillation Paroxysmal (HCC) Monitoring For Therapeutic Drug Therapy Hadoop Developer (Current) Anticoagulant Treatment INR REFLEX, POCT, B Routine 10/28/2023 3 :00 PM CDT Hypertensive Heart And Chronic Kidney Disease With Heart Failure And Stage 1 To 4 Chronic Kidney Disease Or Unspecified Chronic Kidney Disease (HCC) Hyperlipidemia On Treatment Atrial Fibrillation Paroxysmal (HCC) Monitoring For Therapeutic Drug Therapy Fpc (Current) Anticoagulant Treatment INR REFLEX, POCT, B Routine 10/15/2023 3 :09 PM CDT Hypertensive Heart And Chronic Kidney Disease With Heart Failure And Stage 1 To 4 Chronic Kidney Disease Or Unspecified Chronic Kidney Disease (HCC) Hyperlipidemia On Treatment Atrial Fibrillation Paroxysmal (HCC) Monitoring For Therapeutic Drug Therapy Fpc (Current) Anticoagulant Treatment INR REFLEX, POCT, B Routine 10/07/2023 2 :55 PM CDT Atrial Fibrillation Paroxysmal (HCC) INR REFLEX, POCT, B Routine 10/01/2023 3 :00 PM CDT Hypertensive Heart With Heart Failure And Chronic Kidney Disease (CKD) Stage 3a Glomerular Filtration Rate (GFR) 45 To 59 (HCC) Hyperlipidemia On Treatment Atrial Fibrillation Paroxysmal (HCC) Monitoring For Therapeutic Drug Therapy Fpc (Current) Anticoagulant Treatment INR REFLEX, POCT, B Routine 09/24/2023 3 :14 PM CDT Hypertensive Heart With Heart Failure And Chronic Kidney Disease (CKD) Stage 3a Glomerular Filtration Rate (GFR) 45 To 59 (HCC) Hyperlipidemia On Treatment Atrial Fibrillation Paroxysmal (HCC) Monitoring For Therapeutic Drug Therapy Hadoop Developer (Current) Anticoagulant Treatment BI BREAST SCREENING BILATERAL WITH TOMOSYNTHESIS RAD - Routine (most inpatients and all outpatients) 12/09/2021 3:16 PM CDT Maintenance Health Adult from Last 3 Months or Most Recently Relevant to Health Maintenance Results * INR Reflex, POCT, Blood (12/20/2023 3:59 PM CDT) Only the most recent of11 resultswithin the time period is included. INR Reflex, POCT, B 1.1 12/20/2023 3:56 PM CDT [id number] Comment: ----ADDITIONAL INFORMATION---- Standard intensity warfarin therapeutic range: 2.0 to 3.0 ?? High intensity warfarin therapeutic range: 2.5 to 3.5 Blood (Blood, Capillary) 12/20/2023 3:59 PM CDT 12/20/2023 3:56 PM CDT us Patrick Erickson D.O. LAB POCT ORDERABLES - CARLOS ENRIQUE CE Final Result [facility] [address] [place] [address], [facility] [id number] [facility] in [place] [address] [place] [address] * (ABNORMAL) Comprehensive Metabolic Panel (12/15/2023 5:00 [...] 5:00 PM CDT 12/15/2023 6:08 PM CDT us Patrick Erickson D.O. LAB BLOOD ADD-ON Final Res ult [facility] [address] [place] [id number], [facility] in [place] [address] [place] [id number] * (ABNORMAL) Prothrombin Time (PT) (12/03/2023 3:01 PM CDT) Prothrombin Time, P 60.6(H) 9.4 - 12.5 sec 12/03/2023 6:26 PM CDT OW[facility] INR 5.1(CH) 0.9 - 1.1 12/03/2023 6:26 PM CDT [facility]AT Comment: ----ADDITIONAL INFORMATION---- Standard intensity warfarin therapeutic range: 2.0 to 3.0 ?? High intensity warfarin therapeutic range: 2.5 to 3.5 Blood 12/03/2023 3:01 PM CDT 12/03/2023 5:54 PM CDT us Patrick Erickson D.O. 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 Soheila Zapata P.A.-C. MHowieSHowie IMG BI PROCEDURE S Final Result from Last 3 Months or Most Recently Relevant to Health Maintenance Insurance [employer] Care Teams Retort Forker Relationship Specialty Start Date End Date Patrick Erickson D.O. [address] [place] [phone] PCP - General Internal Medicine 08/12/22
--- OUTSIDE RECORDS SUMMARY | 2023-12-24 08:44 | XMS_ITS | Encounter Summary ---
Author Organization [facility] Address [address] [place] [address] Care Team Providers Care In Store Marketing Representative Name Role Phone Patrick Erickson D.O. Primary Care Provider +1- [phone] Reason for Visit * Reason Onset Date Comments Med Refill 12/10/2023 Encounter Details Date Type Department Care Team (Late st Contact Info) Description 12/10/2023 Refill Department of Internal Medicine in [place], [place] [address] [place] [phone] Patrick Erickson D.O. [address] [phone] Med Refill Social History Tobacco Use Types Packs/Day Years Used Date Smoking Tobacco: Never Smokeless Tobacco: Never Alcohol Use Standard Drinks/Week Comments No 0 (1 standard drink = 0.6 oz pur e alcohol) [facility] Utilities Answer Date Recorded In [...] any clubs o r organizations such as advent groups, unions, fraternal or athletic groups, or [...] Answer Date Recorded PHQ-2 Score 0 04/27/2023 [facility] - Occupational [...] your living situation today? I have a [facility] place to live 07/01/2023 Education Answer Date Recorded What is the highest level of school you have completed or the highest degree you have received? 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 2[address] [place] [phone] 12/24/2023 3:50 PM CDT Appointment Department of Laboratory Medicine in [place], [place] [address] [place] [phone] Patrick Erickson D.O. [address] [phone] 12/24/2023 4:20 PM CDT Anticoagulation Visit Department of Anticoagulation in [place], [place] [address] [place] [address] Soheila Zapata P.A.-C., M.S. [address] [phone] Arrived 12/28/2023 1:00 PM CDT Office Visit Department of Internal Medicine in [place], [place] [address] [phone] Patrick Erickson D.O. [address] [phone] documented as of this encounter Visit Diagnoses Not on filedocumented in this encounter Additional Health Concerns Infection Onset Date Last Indicated Resolved Time COVID19 11/26/2023 11/26/2023 12/16/2023 6:00 AM CDT Assessment Noted Time PHQ-9 Depression Total Score: 9 02/23/20 7:41 PM ORDNANCE EQUIPMENT WORKER documented as of this encounter Care Teams In Store Marketing Representative Relationship Specialty Start Date End Date Patrick Erickson D.O. [address] [phone] PCP - General Internal Medicine 08/12/22 documented as of this encounter
--- OUTSIDE RECORDS SUMMARY | 2023-12-24 08:44 | XMS_ITS | Encounter Summary ---
Author Organization [facility] Address [address] [place] [address] Care Team Providers Care Can Line Operator Name Role Phone Patrick Erickson D.O. Primary Care Provider +1- [phone] Reason for Visit * Outpatient (Routine) - Authorized Specialty Diagnoses / Procedures Referred By Prosper t Referred To Contact Anticoagulation Soheila Zapata P.A.-C., M.S. [address] [place] [address] Phone: tel: fax: [facility] Referral ID Status Reason Start Date Expiration Date V isits Requested Visits Authorized [id number] Authorized 01/07/2022 01/06/2025 300 300 Encounter Details Date Type Department Care Team (Latest Contact Info) Description 12/20/2023 4:20 PM CDT Anticoagulation Visit Department of Anticoagulation in [place], [place] [address] [place] [address] Soheila Zapata P.A.-C., M.S. [address] [place] [address] Atrial Fibrillation Paroxysmal (HCC) (Primary Dx); [...] drink = 0.6 oz pur e alcohol) [facility] Utilities Answer Date Recorded In [...] How often do you attend chur or pentecostal services? More than 4 times [...] Answer Date Recorded PHQ-2 Score 0 04/27/2023 [facility] - Occupational Stress Questionnaire Answer Date [...] your living situation today? I have a [facility] place to live 07/01/2023 Education Answer Date Recorded What is the highest level of school you have completed or the highest degree you have received? 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 - 12/20/2023 4:20 PM CDT Your next INR will be 12/24/2023. You will need to call the Anticoagulation Program for warfarin dosing at the scheduled time for your nurse visit, as indicated on your Patient Appointment Guide (PAG). Additionally, please complete the Anticoagulation Program questionnaire through patient online services within 24 hours before your next appointment. To reschedule your appointment or for questions about your warfarin, please call Primary Care Anticoagulation Program at [phone] from 7:30 am to 4:30 pm. Wednesday-Wednesday [...] if you start any herbal or other xqkr-pcn-atwxkdi product (check with your doctor, a nurse, [...] CDT Appointment Department of Laboratory Medicine in [place], [place] [address] [place] [phone] Patrick Erickson D.O. [address] [phone] 12/24/2023 3:50 PM CDT Appointment Department of Laboratory Medicine in [place], [place] [address] [place] [phone] Patrick Erickson D.O. [address] [phone] 12/24/2023 4:20 PM CDT Anticoagulation Visit Department of Anticoagulation in [place], [place] [address] [place] [address] Soheila Zapata P.A.-Ashish., M.S. [address] [place] [phone] Arrived 12/28/2023 1:00 PM CDT Office Visit Department of Internal Medicine in [place], [place] [address] [place] [phone] Patrick Erickson D.O. 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 Or Unspecified Chronic Kidney Disease (HCC) Hyperlipidemia On Treatment Atrial Fibrillation Paroxysmal (HCC) Monitoring For Therapeutic Drug Therapy Jail (Current) Anticoagulant Treatment Expected: 12/24/2023, Expires: 03/21/2025 documented as of this encounter Visit Diagnoses Diagnosis Atrial Fibrillation Paroxysmal (HCC)- Primary 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 [address] [phone] PCP - General Internal Medicine 08/12/22 documented as of this encounter
--- OUTSIDE RECORDS SUMMARY | 2023-12-24 08:44 | XMS_ITS | Encounter Summary ---
Author Organization [facility] Address [address] [place] [address] Care Team Providers Care Chief Lock Operator Name Role Phone Patrick Erickson D.O. Primary Care Provider +1- [phone] Reason for Visit * Outpatient (Routine) - Authorized Specialty Diagnoses / Procedures Referred By Prosper t Referred To Contact Anticoagulation Soheila Zapata P.A.-C., M.S. [address] [place] [address] Phone: tel: fax: [facility] Referral ID Status Reason Start Date Expiration Date V isits Requested Visits Authorized [id number] Authorized 01/07/2022 01/06/2025 300 300 Encounter Details Date Type Department Care Team (Latest Contact Info) Description 12/14/2023 11:30 AM CDT Anticoagulation Visit Department of Anticoagulation in [place], [place] [address] [place] [address] Soheila Zapata P.A.-C., M.S. 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 More than 4 times [...] Answer Date Recorded PHQ-2 Score 0 04/27/2023 [facility] - Occupational Stress Questionnaire Answer [...] your living situation today? I have a [facility] place to live 07/01/2023 Education Answer Date Recorded What is the highest level of school you have completed or the highest degree you have received? 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 Wednesday-Wednesday [...] if you start any herbal or other yeuy-pol-basiemp product (check with your doctor, a nurse, [...] CDT Appointment Department of Laboratory Medicine in [place], [place] [address] [place] [phone] Patrick Erickson D.O. [address] [phone] 12/24/2023 3:50 PM CDT Appointment Department of Laboratory Medicine in [place], [place] [address] [place] [phone] Patrick Erickson D.O. [address] [phone] 12/24/2023 4:20 PM CDT Anticoagulation Visit Department of Anticoagulation in [place], [place] [address] [place] [address] Soheila Zapata P.A.-C., M.S. [address] [phone] Arrived 12/28/2023 1:00 PM CDT Office Visit Department of Internal Medicine in [place], [place] [address] [place] [phone] Patrick Erickson D.O. [address] [phone] documented as of this encounter Results * INR Reflex, POCT, Blood (12/20/2023 3:59 PM CDT) INR Reflex, POCT, B 1.1 12/20/2023 3:56 PM CDT [id number] Comment: ----ADDITIONAL INFORMATION---- Standard intensity warfarin therapeutic range: 2.0 to 3.0 ?? High intensity warfarin therapeutic range: 2.5 to 3.5 Blood (Blood, Capillary) 12/20/2023 3:59 PM CDT 12/20/2023 3:56 PM CDT Patrick Erickson D.O. LAB POCT ORDERABLES - CARLOS ENRIQUE CE Final Result 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 [address] [place] [address] PCP - General Internal Medicine 08/12/22 documented as of this encounter
--- OUTSIDE RECORDS SUMMARY | 2023-12-24 08:44 | XMS_ITS | Encounter Summary ---
Author Organization [facility] Address [address] [place] [address] Care Team Providers Care Coating Mixer Supervisor Name Role Phone Patrick Erickson D.O. Primary Care Provider +1- [phone] Encounter Details Date Type Department Care Team (Latest Contact Info) Description 12/13/2023 4:15 PM CDT - 12/13/2023 11:59 PM CDT Hospital Encounter Department of Laboratory Medicine in [place], [place] [address] [place] [phone] Patrick Erickson D.O. 2[address] [place] [phone] Atrial Fibrillation Paroxysmal (HCC) Discharge Disposition: Home or Self Care Social History Tobacco Use Types Packs/Day Years Used Date Smoking Tobacco: Never Smokeless Tobacco: Never Alcohol Use Standard Drinks/Week Comments No 0 (1 standard drink = 0.6 oz pur e alcohol) [facility] Utilities Answer Date Recorded In [...] How often do you attend chur or voodoo services? More than 4 times per year 05/30/2022 Do you belong to any clubs o r organizations such as sikh groups, unions, fraternal or athletic groups, or [...] your living situation today? I have a [facility] place to live 07/01/2023 Education Answer Date Recorded What is the highest level of school you have completed or the highest degree you have received? 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 documented as of this encounter Plan of Treatment Upcoming Encounters Date Type Department Care Team (Latest Contact Info) Description 12/24/2023 10:10 AM CDT Appointment Department of Laboratory Medicine in [place], [place] [address] [place] [phone] Patrick Erickson D.O. [address] [place] [phone] 12/24/2023 3:50 PM CDT Appointment Department of Laboratory Medicine in [address] [phone] Patrick Erickson D.O. [address] [place] [phone] 12/24/2023 4:20 PM CDT Anticoagulation Visit Department of Anticoagulation in [place], [place] [address] [place] [address] Soheila Zapata P.A.-C., M.S. 2[address] [place] [phone] Arrived 12/28/2023 1:00 PM CDT Office Visit Department of Internal Medicine in [place], [place] [address] [place] [phone] Patrick Erickson D.O. [address] [place] [phone] documented as of this encounter Procedures Procedure [...] 4:21 PM CDT 12/13/2023 4:21 PM CDT us Patrick Erickson D.O. LAB POCT ORDERABLES - CARLOS ENRIQUE CE Final Result [facility] [address] [place] [address], [facility] FB60 [facility] in [place] [address] [place] [address] documented in this encounter Visit Diagnoses Diagnosis Atrial Fibrillation Paroxysmal (HCC) documented in this encounter Additional Health Concerns Infection Onset Date Last Indicated Resolved Time COVID19 11/26/2023 11/26/2023 12/16/2023 6:00 AM CDT Assessment Noted Time PHQ-9 Depression Total Score: 9 02/23/20 23 7:41 PM LANDSCAPE HORTICULTURE INSTRUCTOR documented as of this encounter Care Teams Coating Mixer Supervisor Relationship Specialty Start Date End Date Patrick Erickson D.O. 2[address] [place] [phone] PCP - General Internal Medicine 08/12/22 documented as of this encounter
--- OUTSIDE RECORDS SUMMARY | 2023-12-24 08:44 | XMS_ITS | Encounter Summary ---
Author Organization [facility] Address [address] [place] [address] Care Team Providers Care Director Of Hemophilia Name Role Phone Patrick Erickson D.O. Primary Care Provider +1- [phone] Encounter Details Date Type Department Care Team (Latest Contact Info) Description 12/20/2023 3:50 PM CDT - 12/20/2023 11:59 PM CDT Hospital Encounter Department of Laboratory Medicine in [place] [address] [place] [phone] Patrick Erickson D.O. 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 Or Unspecified Chronic Kidney Disease (HCC); Hyperlipidemia On Treatment; Atrial Fibrillation Paroxysmal (HCC); Monitoring For Therapeutic Drug Therapy; [facility] (Current) Anticoagulant Treatment Discharge Disposition: Home or Self Care Social History Tobacco Use Types Packs/Day Years Used Date Smoking Tobacco: Never Smokeless Tobacco: Never Alcohol Use Standard Drinks/Week Comments No 0 (1 standard drink = 0.6 oz pur e alcohol) [facility] Utilities Answer Date Recorded In the past 12 months has th e electric, gas, oil, or water [employer] threatened to shut off services in your [...] often do you attend chur ch or presybeterian services? More than 4 times per year [...] Answer Date Recorded PHQ-2 Score 0 04/27/2023 [facility] Occupat ional Health - Occupational Stress [...] your living situation today? I have a [facility] place to live 07/01/2023 Education Answer Date Recorded What is the highest level of school you have completed or the highest degree you have received? 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 documented as of this encounter Plan of Treatment Upcoming Encounters Date Type Department Care Team (Latest Contact Info) Description 12/24/2023 10:10 AM CDT Appointment Department of Laboratory Medicine in [place], [place] [address] [place] [address] Patrick Erickson D.O. [address] [place] [phone] 12/24/2023 3:50 PM CDT Appointment Department of Laboratory Medicine in [place], [place] [address] [place] [address] Patrick Erickson D.O. [address] [place] [phone] 12/24/2023 4:20 PM CDT Anticoagulation Visit Department of Anticoagulation in [place], [place] [address] [place] [address] Soheila Zapata P.A.-C., M.S. [address] [place] [phone] Arrived 12/28/2023 1:00 PM CDT Office Visit Department of Internal Medicine in [place], [place] [address] [place] [address] Patrick Erickson D.O. [address] [place] [phone] documented as of this encounter [...] ORDERABLES - CARLOS ENRIQUE CE Final Result [facility] [address] [place] [address], [facility] FB60 [facility] in [address] [address] documented in this encounter Visit Diagnoses Diagnosis [...] Depression Total Score: 9 02/23/20 7:41 PM UNEMPLOYMENT INSURANCE DIRECTOR documented as of this encounter Care Teams Director Of Hemophilia Relationship Specialty Start Date End Date Patrick Erickson D.O. [address] [place] [phone] PCP - General Internal Medicine 08/12/22 documented as of this encounter
--- OUTSIDE RECORDS SUMMARY | 2023-12-24 08:44 | XMS_ITS ---
Author Organization [facility] Address [address] [place] [address] Care Team Providers Care Crystal Inspector Name Role Phone Unavailable Unavailable Unavailable Surgery Details Not on file Complications Check Surgery Details section. Procedure Estimated Blood Loss Check Surgery Details section. Procedure Findings Check Surgery Details section. Procedure Specimens Taken Check Surgery Details section.
--- OUTSIDE RECORDS SUMMARY | 2023-12-24 08:44 | XMS_ITS | Encounter Summary ---
Author Organization [facility] Address [address] [place] [address] Care Team Providers Care Community Marketing Coordinator Name Role Phone Patrick Erickson D.O. Primary Care Provider +1- [phone] Reason for Visit * Reason Onset Date Comments Anticoagulation 12/06/2023 INR - ordered by provider Encounter Details Date Type Department Care Team (Latest Contact Info) Description 12/06/2023 Clinical Communication Department of Anticoagulation in [place], [place] [address] [place] [address] Isa Callahan, R.N. Anticoagulation (INR - ordered by provider ) Social History Tobacco Use Types Packs/Day Years Used Date Smoking Tobacco: Never Smokeless Tobacco: Never Alcohol Use Standard Drinks/Week Comments No 0 (1 standard drink = 0.6 oz pur e alcohol) [facility] Utilities Answer Date Recorded In the past 12 months has e [employer], gas, oil, or water [employer] threatened to shut off services in [...] any clubs o r organizations such as samaritan groups, unions, fraternal or athletic groups, or [...] Answer Date Recorded PHQ-2 Score 0 04/27/2023 [facility] of Occupat ional Health - [...] living situation today? I have a [facility] place to live 07/01/2023 Education Answer Date Recorded What is the highest level of school you have completed or the highest degree you have received? 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 - 12/06/2023 12:55 PM CDT Noted [...] Appointment Department of Laboratory Medicine in [address] [phone] Patrick Erickson D.O. [address] [phone] 12/24/2023 3:50 PM CDT Appointment Department of Laboratory Medicine in [place], [place] [address] [place] [phone] Patrick Erickson D.O. [address] [phone] 12/24/2023 4:20 PM CDT Anticoagulation Visit Department of Anticoagulation in [place], [place] [address] [place] [address] Soheila Zapata P.A.-C., M.S. [address] [place] [phone] Arrived 12/28/2023 1:00 PM CDT Office Visit Department of Internal Medicine in [place], [place] [address] [place] [phone] Patrick Erickson D.O. 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 [address] [facility] [place] [phone] PCP - General Internal Medicine 08/12/22 documented as of this encounter
--- OUTSIDE RECORDS SUMMARY | 2023-12-24 08:44 | XMS_ITS | Encounter Summary ---
Author Organization [facility] Address [address] [place] [address] Care Team Providers Care Saturation Diver Name Role Phone Patrick Erickson D.O. Primary Care Provider +1- [phone] Reason for Visit * Reason Onset Date Comments Anticoagulation 12/17/2023 Unable to come i n for INR today Encounter Details Date Type Department Care Team (Latest Contact Info) Description 12/17/2023 Clinical Communication Department of Anticoagulation in [place], [place] [address] [place] [address] La Mendoza, RHowieNHowie Anticoagulation (Unable to come in for INR today) Social History Tobacco Use Types Packs/Day Years Used Date Smoking Tobacco: Never Smokeless Tobacco: Never Alcohol Use Standard Drinks/Week Comments No 0 (1 standard drink = 0.6 oz pur e alcohol) [facility] Utilities Answer Date Recorded In the past 12 months has e [employer], gas, oil, or water [employer] threatened to shut off services in your [...] Answer Date Recorded PHQ-2 Score 0 04/27/2023 [facility] of Occupat ional Health - Occupational [...] AM CDT Legal Sex Female 9:57 PM 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 - 12/17/2023 11:40 AM CDT Pt unable to come in for INR today due to transportation issues. Pt is hoping to reschedule INR for10/14 after 4pm. Pt is requesting warfarin dosing for the weekend. Pt verified dosing this past week and took as directed. Please advise. documented in this encounter Plan of Treatment Upcoming Encounters Date Type Department Care Team (Latest Contact Info) Description 12/24/2023 10:10 AM CDT Appointment Department of Laboratory Medicine in [place], [place] [address] [place] [phone] Patrick Erickson D.O. [address] [phone] 12/24/2023 3:50 PM CDT Appointment Department of Laboratory Medicine in [place], [place] [address] [place] [phone] Patrick Erickson D.O. [address] [phone] 12/24/2023 4:20 PM CDT Anticoagulation Visit Department of Anticoagulation in [place], [place] [address] [place] [address] Soheila Zapata P.A.-C., M.S. [address] [phone] Arrived 12/28/2023 1:00 PM CDT Office Visit Department of Internal Medicine in [place], [place] [address] [address] Patrick Erickson D.O. [address] [phone] documented as of this encounter [...] Depression Total Score: 9 02/23/20 7:41 PM SECURITY INSTALLATION SALES TECHNICIAN documented as of this encounter Care Teams Saturation Diver Relationship Specialty Start Date End Date Patrick Erickson D.O. [address] [place] [phone] PCP - General Internal Medicine 08/12/22 documented as of this encounter
--- OUTSIDE RECORDS SUMMARY | 2023-12-24 08:44 | XMS_ITS | Encounter Summary ---
Author Organization [facility] Address [address] [place] [address] Care Team Providers Care Dental Detail Representative Name Role Phone Patrick Erickson D.O. Primary Care Provider +1- [phone] Encounter Details Date Type Department Care Team (Latest Contact Info) Description 12/15/2023 4:49 PM CDT - 12/15/2023 11:59 PM CDT Hospital Encounter Department of Laboratory Medicine in [place], [place] [address] [place] [phone] Patrick Erickson D.O. [address] [place] [phone] Atrial Fibrillation Paroxysmal (HCC) Discharge Disposition: Home or Self Care Social History Tobacco Use Types Packs/Day Years Used Date Smoking Tobacco: Never Smokeless Tobacco: Never Alcohol Use Standard Drinks/Week Comments No 0 (1 standard drink = 0.6 oz pur e alcohol) [facility] Utilities Answer Date Recorded In the [...] any clubs o r organizations such as mormon groups, unions, fraternal or athletic groups, or [...] Answer Date Recorded PHQ-2 Score 0 04/27/2023 [facility] of Occupat ional Health [...] AM CDT Legal Sex Female 9:57 PM SEAMING INSPECTOR Gender Identity Female 09/24/2022 9:59 PM CDT [...] tablet every day 90 tablet 3 04/21/2023 khuhlwu-wust-hiwf k-tnsr-hhgqlx 100 mg-150 mg- 50 mg-150 mg capsule Take by mouth 3 (three) times a day. documented as of this encounter Plan of Treatment Upcoming Encounters Date Type Department Care Team (Latest Contact Info) Description 12/24/2023 10:10 AM CDT Appointment Department of Laboratory Medicine in [place], [place] [address] [place] [phone] Patrick Erickson D.O. [address] [place] [phone] 12/24/2023 3:50 PM CDT Appointment Department of Laboratory Medicine in [address] [address] Patrick Erickson D.O. [address] [place] [phone] 12/24/2023 4:20 PM CDT Anticoagulation Visit Department of Anticoagulation in [place], [place] [address] [place] [address] Soheila Zapata P.A.-C., M.S. 2199 [place] [address] Arrived 12/28/2023 1:00 PM CDT Office Visit Department of Internal Medicine in [place], [place] [address] [place] [facility] [place] [address] Patrick Erickson D.O. 2199 [place] [address] documented as of this encounter Procedures Procedure Name Priority Date/Time Associated Diagnosis Comments COMPREHENSIVE METABOLIC PANEL, S/P Routine 12/15/2023 5:00 PM CDT Atrial Fibrillation Paroxysmal (HCC) documented in this encounter Results * (ABNORMAL) Comprehensive Metabolic Panel (12/15/2023 5:00 [...] D.O. LAB BLOOD ADD-ON Final Res ult [facility] [address] [place] [address], [facility] OWAT [facility] in [place] [address] [place] [address] documented in this encounter Visit Diagnoses Diagnosis Atrial Fibrillation Paroxysmal (HCC) documented in this encounter Additional Health Concerns Infection Onset Date Last Indicated Resolved Time COVID19 11/26/2023 11/26/2023 12/16/2023 6:00 AM CDT Assessment Noted Time PHQ-9 Depression Total Score: 9 02/23/20 7:41 PM SEAMING INSPECTOR documented as of this encounter Care Teams Dental Detail Representative Relationship Specialty Start Date End Date Patrick Erickson D.O. [address] [place] [address] PCP - General Internal Medicine 08/12/22 documented as of this encounter
--- OUTSIDE RECORDS SUMMARY | 2023-12-24 08:44 | XMS_ITS | Encounter Summary ---
Author Organization [facility] Address [address] [place] [address] Care Team Providers Care Veterinary Manager Name Role Phone Patrick Erickson D.O. Primary Care Provider +1- [phone] Reason for Visit * Reason Onset Date Comments Anticoagulation 12/15/2023 DOAC Encounter Details Date Type Department Care Team (Latest Contact Info) Description 12/15/2023 Clinical Communication Department of Anticoagulation in [place], [place] [address] [place] [address] Alea Eaton R.N. [address] [place] [phone] Anticoagulation (DOAC) Social History Tobacco Use Types Packs/Day Years Used Date Smoking Tobacco: Never Smokeless Tobacco: Never Alcohol Use Standard Drinks/Week Comments No 0 (1 standard drink = 0.6 oz pur e alcohol) [facility] Utilities Answer Date Recorded In the past 12 months has e [employer], gas, oil, or water [employer] threatened to shut off services in your [...] Answer Date Recorded PHQ-2 Score 0 04/27/2023 [facility] of Occupat ional Health - Occupational [...] AM CDT Legal Sex Female 9:57 PM SPORTS ANNOUNCER Gender Identity Female 09/24/2022 9:59 PM CDT [...] CDT Appointment Department of Laboratory Medicine in [place], [place] [address] [place] [phone] Patrick Erickson D.O. [address] [phone] 12/24/2023 3:50 PM CDT Appointment Department of Laboratory Medicine in [place], [place] [address] [place] [phone] Patrick Erickson D.O. [address] [phone] 12/24/2023 4:20 PM CDT Anticoagulation Visit Department of Anticoagulation in [place], [place] [address] [place] [address] Soheila Zapata P.A.-C., M.S. [address] [phone] Arrived 12/28/2023 1:00 PM CDT Office Visit Department of Internal Medicine in [place], [place] [address] [address] Patrick Erickson D.O. 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 [address] [place] [phone] PCP - General Internal Medicine 08/12/22 documented as of this encounter
--- OUTSIDE RECORDS SUMMARY | 2023-12-24 08:45 | XMS_ITS | Encounter Summary ---
Author Organization [facility] Address [address] [place] [address] Care Team Providers Care Caving Guide Name Role Phone Patrick Erickson D.O. Primary Care Provider +1- [phone] Encounter Details Date Type Department Care Team (Latest Contact Info) Description 12/03/2023 2:50 PM CDT - 12/03/2023 11:59 PM CDT Hospital Encounter Department of Laboratory Medicine in [place] [address] [place] [phone] Patrick Erickson D.O. 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 6 cranberry conc/C/Bacill coag (CRANBERRY URINARY TRACT HEALTH ORAL) Take 1 tablet by mouth daily. CYANOCOBALAMIN, VITAMIN B-12, ORAL Vitamin B-12 6 cyclobenzaprine (FLEXERIL) 5 mg tablet Take 1 tablet (5 mg total) by mouth at bedtime as needed for muscle spasms. 30 tablet 2 furosemide (LASIX) 20 mg tablet TAKE 1 TABLET (20 MG TOTAL) BY MOUTH DAILY. MAY TAKE AN EXTRA DOSE NEEDED FOR WEIGHT GAIN/EDEMA 100 tablet 3 4 lisinopriL (PRINIVIL,ZESTRIL) 40 mg tablet take 1 tablet every day 90 tablet 3 4 hmxrmei-asyz-tcpay -oreg-capryl 100 mg-150 mg- 50 mg-150 mg capsule Take by mouth 3 (three) times a day. ibuprofen (ADVIL,MOTRIN) 200 mg tablet Take by mouth every 6 (six) hours as needed. 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 15 tablet 4 12/06/19 24 warfarin (JANTOVEN) 5 mg tabletIndications: Hypertensive Heart With Heart Failure And Chronic Kidney Disease (CKD) Stage 3a Glomerular Filtration Rate (GFR) 45 To 59 (HCC),Hyperlipidem ia On Treatment,Atrial Fibrillation Paroxysmal (HCC),Monitoring For Therapeutic Drug Therapy,Half-Way (Current) Anticoagulant Treatment Please take as directed by your Anticoagulation Clinic. 120 tablet 3 4 12/06/19 24 documented as of this encounter Plan of Treatment Upcoming Encounters Date Type Department Care Team (Latest Contact Info) Description 12/24/2023 10:10 AM CDT Appointment Department of Laboratory Medicine in [address] [phone] Patrick Erickson D.O. [address] [address] 12/24/2023 3:50 PM CDT Appointment Department of Laboratory Medicine in [place], [place] [address] [facility] [phone] Patrick Erickson D.O. [address] [phone] 12/24/2023 4:20 PM CDT Anticoagulation Visit Department of Anticoagulation in [place], [place] [address] [place] [address] Soheila Zapata P.A.-C., M.S. [address] [phone] Arrived 12/28/2023 1:00 PM CDT Office Visit Department of Internal Medicine in [place], [place] [address] [address] Patrick Erickson D.O. [address] [address] documented as of this encounter [...] ADD-ON Final Res ult Performing Organization Address [facility] Co de Phone Number [facility] [address] [place] [address], [place] OWAT [facility] in [place] [address], [place] [address] * (ABNORMAL) INR Reflex, POCT, Blood (12/03/2023 2:57 PM CDT) INR Reflex, POCT, B 5.3(CH) 12/03/2023 2:56 PM CDT [id number] Comment: ----ADDITIONAL INFORMATION---- Standard intensity warfarin therapeutic range: 2.0 to 3.0 ?? High intensity warfarin therapeutic range: 2.5 to 3.5 Blood (Blood, Capillary) 12/03/2023 2:57 PM CDT 12/03/2023 2:56 PM CDT Patrick Erickson D.O. LAB POCT ORDERABLES - CARLOS ENRIQUE CE Final Result Performing Organization Address [facility]/ZIP Co de Phone Number 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 [address] [phone] PCP - General Internal Medicine 08/12/22 documented as of this encounter
--- OUTSIDE RECORDS SUMMARY | 2023-12-24 08:45 | XMS_ITS | Encounter Summary ---
Author Organization [facility] Address [address] [place] [address] Care Team Providers Care Tag Marker Name Role Phone Patrick Erickson D.O. Primary Care Provider +1- [phone] Encounter Details Date Type Department Care Team (Latest Contact Info) Description 11/02/2023 2:50 PM CDT - 11/02/2023 11:59 PM CDT Hospital Encounter Department of Laboratory Medicine in [place] [address] [place] [phone] Patrick Erickson D.O. [address] [place] [phone] Hypertensive Heart And Chronic Kidney Disease With [...] = 0.6 oz pur e alcohol) [facility] Utilities Answer Date Recorded In the past 12 months has th e electric, gas, oil, or water [email or web address] threatened to shut off services in your [...] Recorded PHQ-2 Score 0 04/27/2023 [facility] of Occupat ional Health - Occupational Stress [...] AM CDT Legal Sex Female 9:57 PM PROCEDURE WRITER Gender Identity Female 09/24/2022 9:59 PM CDT [...] tablet every day 90 tablet 3 4 yinnrfy-hoqh-pxwrj -oreg-capryl 100 mg-150 mg- 50 mg-150 mg [...] Treatment,Atrial Fibrillation Paroxysmal (HCC),Monitoring For Therapeutic Drug Therapy,Beer Brewer (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 [address] [phone] 12/24/2023 3:50 PM CDT Appointment Department of Laboratory Medicine in [place], [place] 300 [facility] [place] [phone] Patrick Erickson D.O. [address] [phone] 12/24/2023 4:20 PM CDT Anticoagulation Visit Department of Anticoagulation in [place], [place] [address] [place] [address] Soheila Zapata P.A.-C., M.S. [address] [phone] Arrived 12/28/2023 1:00 PM CDT Office Visit Department of Internal Medicine in [place], [place] [address] [address] Patrick Erickson D.O. [address] [phone] documented as of this encounter [...] 2:58 PM CDT 11/02/2023 2:57 PM CDT us Patrick Erickson D.O. LAB POCT ORDERABLES - CARLOS ENRIQUE CE Final Result [facility] [address] [place] [address], [facility] FB60 [facility] [place] [address] [place] [address] documented in this encounter Visit Diagnoses Diagnosis [...] Total Score: 9 02/23/20 23 7:41 PM PROCEDURE WRITER documented as of this encounter Care Teams Tag Marker Relationship Specialty Start Date End Date Patrick Erickson D.O. [address] [place] [address] PCP - General Internal Medicine 08/12/22 documented as of this encounter
--- OUTSIDE RECORDS SUMMARY | 2023-12-24 08:45 | XMS_ITS | Encounter Summary ---
Author Organization [facility] Address [address] [place] [address] Care Team Providers Care Construction Skills Teacher Name Role Phone Patrick Erickson D.O. Primary Care Provider +1- [phone] Encounter Details Date Type Department Care Team (Latest Contact Info) Description 11/22/2023 3:20 PM CDT - 11/22/2023 11:59 PM CDT Hospital Encounter Department of Laboratory Medicine in [place] [address] [place] [phone] Patrick Erickson D.O. [address] [place] [phone] Hypertensive Heart And Chronic Kidney Disease With [...] drink = 0.6 oz pur e alcohol) [facility] Utilities Answer Date Recorded In the past 12 months has th e electric, gas, oil, or water [employer] threatened to shut off services in your [...] PHQ-2 Score 0 04/27/2023 [facility] [place] of Occupat ional Health - Occupational Stress [...] AM CDT Legal Sex Female 9:57 PM THREAD SPINNER Gender Identity Female 09/24/2022 9:59 PM CDT [...] tablet every day 90 tablet 3 4 kdjomkm-dmwj-dhpsh -oreg-capryl 100 mg-150 mg- 50 mg-150 mg [...] Treatment,Atrial Fibrillation Paroxysmal (HCC),Monitoring For Therapeutic Drug Therapy,Chief Business Officer (Current) Anticoagulant Treatment Please take as directed [...] Appointment Department of Laboratory Medicine in [address] [phone] Patrick Erickson D.O. [address] [phone] 12/24/2023 3:50 PM CDT Appointment Department of Laboratory Medicine in [place], [place] 300 [place] [phone] Patrick Erickson D.O. [address] [phone] 12/24/2023 4:20 PM CDT Anticoagulation Visit Department of Anticoagulation in [place], [place] [address] [place] [address] Soheila Zapata P.A.-C., M.S. [address] [phone] Arrived 12/28/2023 1:00 PM CDT Office Visit Department of Internal Medicine in [place], [place] [address] [address] Patrick Erickson D.O. [address] [phone] documented as of this encounter [...] 3:52 PM CDT 11/22/2023 3:53 PM CDT us Patrick Erickson D.O. LAB POCT ORDERABLES - CARLOS ENRIQUE CE Final Result [facility] [address] [place] [address], [facility] FB60 [facility] in [place] [address] [place] [address] documented in this encounter Visit Diagnoses Diagnosis [...] Total Score: 9 02/23/20 23 7:41 PM THREAD SPINNER documented as of this encounter Care Teams Construction Skills Teacher Relationship Specialty Start Date End Date Patrick Erickson D.O. [address] [place] [address] PCP - General Internal Medicine 08/12/22 documented as of this encounter
--- OUTSIDE RECORDS SUMMARY | 2023-12-24 08:45 | XMS_ITS | Encounter Summary ---
Author Organization [facility] Address [address] [place] [address] Care Team Providers Care Blood Donor Unit Assistant Name Role Phone Patrick Erickson D.O. Primary Care Provider +1- [phone] Reason for Visit * Reason Onset Date Comments Med Question 12/06/2023 Encounter Details Date Type Department Care Team (Latest Contact Info) Description 12/06/2023 Clinical Communication Department of Cardiovascular Diseases in [place], [place] [address] [address] Roberto Dumont, SCHOOL SPEECH LANGUAGE PATHOLOGIST, C.N.P. [address] [address] Med Question Social History Tobacco Use Types Packs/Day Years Used Date Smoking Tobacco: Never Smokeless Tobacco: Never Alcohol Use Standard Drinks/Week Comments No 0 (1 standard drink = 0.6 oz pur e alcohol) [facility] Utilities Answer Date Recorded In the past [...] often do you attend chur ch or latter day services? More than 4 times per year 05/30/2022 Do you belong to any clubs o r organizations such as protestant groups, unions, fraternal or athletic groups, or [...] Answer Date Recorded PHQ-2 Score 0 04/27/2023 [facility] - [...] money to buy more. Never true 07/01/19 Within the past 12 months, t he [...] your living situation today? I have a [facility] place to live 07/01/2023 Education Answer Date Recorded What is the highest level of school you have completed or the highest degree you have received? Associate degree: occupational, technical, or vocational program 05/30/2022 Comments No Sex and Gender Information Value Date Recorded Sex Assigned at Female 12/19/2021 3:32 AM CDT Legal Sex Female 9:57 PM DECISION SCIENCE ANALYST Gender Identity Female 09/24/2022 9:59 PM CDT Sexual Orientation Straight 12/19/2021 3: 32 AM CDT documented as of this encounter Miscellaneous Notes * Telephone Encounter - Cindy Castillo, RHowieN. - 12/06/2023 4:59 PM CDT Patient advised [...] of Laboratory Medicine in [place], [place] [address] [place] [address] Patrick Erickson D.O. [address] [address] 12/24/2023 3:50 PM CDT Appointment Department of Laboratory Medicine in [place], [place] [address] [place] [phone] Patrick Erickson D.O. [address] [address] 12/24/2023 4:20 PM CDT Anticoagulation Visit Department of Anticoagulation in [place], [place] [address] [place] [address] Soheila Zapata P.A.-Ashish., M.S. [address] [place] [address] Arrived 12/28/2023 1:00 PM CDT Office Visit Department of Internal Medicine in [place], [place] [address] [place] [address] Patrick Erickson D.O. [address] [address] documented as of this encounter Results * (ABNORMAL) Comprehensive Metabolic Panel (12/15/2023 5:00 PM CDT) [facility] Potassium, P 4.6 3.6 - 5.2 mmol/L [...] D.O. LAB BLOOD ADD-ON Final Res ult [facility] [address] [place] [address], [place] [facility] in [place] [address] [place] [address] documented in this encounter Visit Diagnoses Diagnosis Atrial Fibrillation Paroxysmal (HCC)- Primary documented in this encounter Additional Health Concerns Infection Onset Date Last Indicated Resolved Time COVID19 11/26/2023 11/26/2023 12/16/2023 6:00 AM CDT Assessment Noted Time PHQ-9 Depression Total Score: 9 02/23/20 23 7:41 PM DECISION SCIENCE ANALYST documented as of this encounter Care Teams Blood Donor Unit Assistant Relationship Specialty Start Date End Date Patrick Erickson D.O. [address] [place] [address] PCP - General Internal Medicine 08/12/22 documented as of this encounter
--- OUTSIDE RECORDS SUMMARY | 2023-12-24 08:45 | XMS_ITS | Encounter Summary ---
Author Organization [facility] Address [address] [place] [address] Care Team Providers Care Telecine Operator Name Role Phone Patrick Erickson D.O. Primary Care Provider +1- [phone] Encounter Details Date Type Department Care Team (Latest Contact Info) Description 11/12/2023 11:50 AM CDT - 11/12/2023 11:59 PM CDT Hospital Encounter Department of Laboratory Medicine in [place] [address] [place] [phone] Patrick Erickson D.O. [address] [place] [phone] Atrial Fibrillation Paroxysmal (HCC); Monitoring For Therapeutic Drug Therapy; Intermediate (Current) Anticoagulant Treatment Discharge Disposition: Home or Self Care Social History Tobacco Use Types Packs/Day Years Used Date Smoking Tobacco: Never Smokeless Tobacco: Never Alcohol Use Standard Drinks/Week Comments No 0 (1 standard drink = 0.6 oz pur e alcohol) [facility] Utilities Answer Date Recorded In the past 12 months has e [employer], gas, oil, or water [employer] threatened to shut off services in your [...] Answer Date Recorded PHQ-2 Score 0 04/27/2023 [facility] [place] of Occupat ional Health - Occupational Stress [...] your living situation today? I have a [facility] place to live 07/01/2023 Education Answer Date Recorded What is the highest level of school you have completed or the highest degree you have received? Associate degree: occupational, technical, or vocational program 05/30/2022 Comments No Sex and Gender Information Value Date Recorded Sex Assigned at Female 12/19/2021 3:32 AM CDT Legal Sex Female 9:57 PM DIRT CONTRACTOR Gender Identity Female 09/24/2022 9:59 PM CDT Sexual Orientation Straight 12/19/2021 3: 32 AM CDT documented as of this encounter Medications at Time of Discharge atorvastatin (LIPITOR) 10 mg tablet take 1 tablet every day 90 tablet 3 4 carvediloL (COREG) 6.25 mg tablet take 1 [...] tablet every day 90 tablet 3 4 tngorpj-fkxx-xcspz -oreg-capryl 100 mg-150 mg- 50 mg-150 mg [...] CDT Appointment Department of Laboratory Medicine in [address] [address] Patrick Erickson D.O. [address] [place] [phone] 12/24/2023 3:50 PM CDT Appointment Department of Laboratory Medicine in [place], [place] [address] [place] [address] Patrick Erikcson D.O. [address] [place] [address] 12/24/2023 4:20 PM CDT Anticoagulation Visit Department of Anticoagulation in [place], [place] [address] [place] [address] Soheila Zapata P.A.-C., M.S. [address] [phone] Arrived 12/28/2023 1:00 PM CDT Office Visit Department of Internal Medicine in [place], [place] [address] [place] [address] Patrick Erickson D.O. [address] [phone] documented as of this encounter Procedures Procedure Name Priority Date/Time Associated Diagnosis Comments INR REFLEX, POCT, B Routine 11/12/2023 12:09 PM CDT Atrial Fibrillation Paroxysmal (HCC) Monitoring For Therapeutic Drug Therapy Precision Dyer (Current) Anticoagulant Treatment documented in this encounter Results * INR Reflex, POCT, Blood (11/12/2023 12:09 PM CDT) INR Reflex, POCT, B 2.0 11/12/2023 12:09 PM CDT FB60 Comment: ----ADDITIONAL INFORMATION---- Standard intensity warfarin therapeutic range: 2.0 to 3.0 ?? High intensity warfarin therapeutic range: 2.5 to 3.5 Blood (Blood, Capillary) 11/12/2023 12:09 PM CDT 11/12/2023 12:09 PM CDT us Patrick Erickson D.O. LAB POCT ORDERABLES - CARLOS ENRIQUE CE Final Result [facility] [address] [place] [address], [facility] FB60 [facility] in [place] [address] [place] [address] documented in this encounter Visit Diagnoses Diagnosis Atrial Fibrillation Paroxysmal (HCC) Monitoring For Therapeutic Drug Therapy Intermediate (Current) Anticoagulant Treatment documented in this encounter Additional Health Concerns Assessment Noted Time PHQ-9 Depression Total Score: 9 02/23/20 23 7:41 PM DIRT CONTRACTOR documented as of this encounter Care Teams Telecine Operator Relationship Specialty Start Date End Date Patrick Erickson D.O. [address] [place] [address] PCP - General Internal Medicine 08/12/22 documented as of this encounter
--- OUTSIDE RECORDS SUMMARY | 2023-12-24 08:45 | XMS_ITS | Encounter Summary ---
Author Organization [facility] Address [address] [place] [address] Care Team Providers Care Advanced Quality Engineer Name Role Phone Patrick Erickson D.O. Primary Care Provider +1- [phone] Reason for Visit * Outpatient (Routine) - Authorized Specialty Diagnoses / Procedures Referred By Prosper t Referred To Contact Anticoagulation Soheila Zapata P.A.-[place] [address] Phone: tel: fax: [facility] Referral ID Status Reason Start Date Expiration Date V isits Requested Visits Authorized [id number] Authorized 01/07/2022 01/06/2025 300 300 Encounter Details Date Type Department Care Team (Latest Contact Info) Description 11/12/2023 12:30 PM CDT Anticoagulation Visit Department of Anticoagulation in [place], [place] [address] [place] [address] Soheila Zapata P.A.-C., M.S. 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 - 11/12/2023 12:30 PM CDT Your next INR will be 16. You will need to call the Anticoagulation Program for warfarin dosing at the scheduled time for your nurse visit, as indicated on your Patient Appointment Guide (PAG). To reschedule your appointment or for questions about your warfarin, please call Primary Care Anticoagulation Program at [phone] from 7:30 am to 4:30 pm. Wednesday-Wednesday [...] if you start any herbal or other sfcw-pae-ufiifyc product (check with your doctor, a nurse, [...] CDT Appointment Department of Laboratory Medicine in [place], [place] [address] [place] [phone] Patrick Erickson D.O. [address] [address] 12/24/2023 3:50 PM CDT Appointment Department of Laboratory Medicine in [place], [place] [address] [place] [phone] Patrick Erickson D.O. [address] [phone] 12/24/2023 4:20 PM CDT Anticoagulation Visit Department of Anticoagulation in [place], [place] [address] [place] [address] Soheila Zapata P.A.-C., M.S. [address] [place] [address] Arrived 12/28/2023 1:00 PM CDT Office Visit Department of Internal Medicine in [place], [place] [address] [place] [address] Patrick Erickson D.O. [address] [address] documented as of this encounter Results * [...] CARLOS ENRIQUE CE Final Result [facility] [address] [place] [address], [facility] FB60 [facility] in [place] [address] [place] [address] documented in this encounter Visit Diagnoses Diagnosis [...] Total Score: 9 02/23/20 23 7:41 PM MORNING CAREGIVER documented as of this encounter Care Teams Advanced Quality Engineer Relationship Specialty Start Date End Date Patrick Erickson D.O. [address] [place] [address] PCP - General Internal Medicine 08/12/22 documented as of this encounter
--- OUTSIDE RECORDS SUMMARY | 2023-12-24 08:45 | XMS_ITS | Encounter Summary ---
Author Organization [facility] Address [address] [place] [address] Care Team Providers Care Family Reunification Specialist Name Role Phone Patrick Erickson D.O. Primary Care Provider +1- [phone] Reason for Visit * Reason Onset Date Comments COVID Treatment Review 11/29/2023 Encounter Details Date Type Department Care Team (Latest Contact Info) Description 11/29/2023 Clinical Communication Department of Family Medicine, [address] [address] Butch Sanchez, R.N. COVID Treatment Review Social History Tobacco Use Types Packs/Day Years Used Date Smoking Tobacco: Never Smokeless Tobacco: Never Alcohol Use Standard Drinks/Week Comments No 0 (1 standard drink = 0.6 oz pur e alcohol) [facility] Utilities Answer Date Recorded In the past 12 months has [facility] [employer], gas, oil, or water [employer] threatened to shut off services in your [...] often do you attend chur ch or hinduism services? More than 4 times per year [...] Recorded PHQ-2 Score 0 04/27/2023 [facility] of Occupat ional Health - Occupational [...] your living situation today? I have a [facility] place to live 07/01/2023 Education Answer Date Recorded What is the highest level of school you have completed or the highest degree you have received? Associate degree: occupational, technical, or vocational program 05/30/2022 Comments No Sex and Gender Information Value Date Recorded Sex Assigned at Female 12/19/2021 3:32 AM CDT Legal Sex Female 9:57 PM ANALYTICS ARCHITECT Gender Identity Female 09/24/2022 9:59 PM CDT Sexual Orientation Straight 12/19/2021 3: 32 AM CDT documented as of this encounter Miscellaneous Notes * Telephone Encounter - Butch Sanchez R.N. - 11/29/2023 9:44 AM CDT [facility] Care Team Evaluation Reason for Call Patient [...] Paxlovid for 5 days. Given directions to metal pickling equipment operator and start the medication within 5 days [...] references were used: Nursing or provider judgement, [facility] workflow(s), guidelines, and protocols, [facility] Protocols.? . documented in this encounter Plan of Treatment Upcoming Encounters Date Type Department Care Team (Latest Contact Info) Description 12/24/2023 10:10 AM CDT Appointment Department of Laboratory Medicine in [place], [place] [address] [place] [phone] Patrick Erickson D.O. [address] [address] 12/24/2023 3:50 PM CDT Appointment Department of Laboratory Medicine in [place], [place] [address] [place] [address] Patrick Erickson D.O. [address], [place] [address] 12/24/2023 4:20 PM CDT Anticoagulation Visit Department of Anticoagulation in [place], [place] [address] [place] [address] Soheila Zapata P.A.-C., M.S. [address] [address] Arrived 12/28/2023 1:00 PM CDT Office Visit Department of Internal Medicine in [place], [place] [address], [place] [address] Patrick Erickson D.O. [address] [address] documented as of this encounter Visit Diagnoses Not on filedocumented in this encounter Additional Health Concerns Infection Onset Date Last Indicated Resolved Time COVID19 11/26/2023 11/26/2023 12/16/2023 6:00 AM CDT Assessment Noted Time PHQ-9 Depression Total Score: 9 02/23/20 7:41 PM ANALYTICS ARCHITECT documented as of this encounter Care Teams Family Reunification Specialist Relationship Specialty Start Date End Date Patrick Erickson D.O. [address] [place] [phone] PCP - General Internal Medicine 08/12/22 documented as of this encounter
--- OUTSIDE RECORDS SUMMARY | 2023-12-24 08:45 | XMS_ITS | Encounter Summary ---
Author Organization [facility] Address [address] [place] [address] Care Team Providers Care Zigzag Tunnel Elastic Operator Name Role Phone Patrick Erickson D.O. Primary Care Provider +1- [phone] Reason for Visit * Outpatient (Routine) - Authorized Specialty Diagnoses / Procedures Referred By Prosper t Referred To Contact Anticoagulation Soheila Zapata P.A.-C., M.S. [address] [place] [address] Phone: tel: fax: [facility] Referral ID Status Reason Start Date Expiration Date V isits Requested Visits Authorized [id number] Authorized 01/07/2022 01/06/2025 300 300 Encounter Details Date Type Department Care Team (Latest Contact Info) Description 12/03/2023 3:50 PM CDT Anticoagulation Visit Department of Anticoagulation in [place], [place] [address] [place] [address] Soheila Zapata P.A.-C., M.S. [address] [place] [address] Atrial Fibrillation Paroxysmal (HCC) (Primary [...] How often do you attend chur or mandaeism services? More than 4 times [...] Answer Date Recorded PHQ-2 Score 0 04/27/2023 [facility] - Occupational Stress Questionnaire Answer Date Recorded [...] AM CDT Legal Sex Female 9:57 PM LINE INSTALLATION SUPERVISOR Gender Identity Female 09/24/2022 9:59 PM CDT Sexual Orientation Straight 12/19/2021 3: 32 AM CDT documented as of this encounter Patient Instructions * Patient Instructions* Linnette Flores R.N. - 12/03/2023 3:50 PM CDT Your next [...] please call Primary Care Anticoagulation Program at [phone] from 7:30 am to 4:30 pm. Wednesday-Wednesday [...] if you start any herbal or other mkiu-pri-vxreikd product (check with your doctor, a nurse, [...] this encounter Progress Notes * Beronica Fenton PharmAlex., R.Ph. - 12/03/2023 3:50 PM CDT Anticoagulation [...] CDT Appointment Department of Laboratory Medicine in [place], [place] [address] [place] [address] Patrick Erickson D.O. [address] [place] [phone] 12/24/2023 3:50 PM CDT Appointment Department of Laboratory Medicine in [place], [place] [address] [place] [address] Patrick Erickson D.O. [address] [place] [address] 12/24/2023 4:20 PM CDT Anticoagulation Visit Department of Anticoagulation in [place], [place] [address] [place] [address] Soheila Zapata P.A.-C., M.S. [address] [place] [address] Arrived 12/28/2023 1:00 PM CDT Office Visit Department of Internal Medicine in [place], [place] [address] [place] [address] Patrick Erickson D.O. [address] [place] [address] documented as of this encounter Results * INR Reflex, POCT, Blood (12/13/2023 4:21 PM CDT) [facility] INR Reflex, POCT, B 2.3 12/13/2023 4:20 PM CDT [id number] Comment: ----ADDITIONAL INFORMATION---- Standard intensity warfarin therapeutic range: 2.0 to 3.0 ?? High intensity warfarin therapeutic range: 2.5 to 3.5 Blood (Blood, Capillary) 12/13/2023 4:21 PM CDT 12/13/2023 4:21 PM CDT us Patrick Erickson D.O. 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 [address] [place] [address] PCP - General Internal Medicine 08/12/22 documented as of this encounter
--- OUTSIDE RECORDS SUMMARY | 2023-12-24 08:45 | XMS_ITS | Encounter Summary ---
Author Organization [facility] Address [address] [place] [address] Care Team Providers Care Body Repairer Name Role Phone Patrick Erickson D.O. Primary Care Provider +1- [phone] Reason for Visit * Reason Onset Date Comments Arm Injury 12/01/2023 Post Ed Visit Follow-up 12/01/2023 Encounter Details Date Type Department Care Team (Latest Contact Info) Description 12/01/2023 Clinical Communication Department of Orthopedic Surgery in [place], [place] [address] [address] Sher Bauman M.D. [address] [place] [address] Arm Injury; Post Ed Visit Follow-up [...] How often do you attend chur or anabaptism services? More than 4 times per year [...] Answer Date Recorded PHQ-2 Score 0 04/27/2023 [facility] of Occupat ional Health - [...] AM CDT Legal Sex Female 9:57 PM ADVERTISING WRITER Gender Identity Female 09/24/2022 9:59 PM CDT Sexual Orientation Straight 12/19/2021 3: 32 AM CDT documented as of this encounter Miscellaneous Notes * Telephone Encounter - Mariam Higgins R.N. - 12/03/2023 8:33 AM CDT Called patient and discussed ER visit. Patient states she fell on Wednesday, November 30 at workand was taken by ambulance to the [facility] [facility]. Patient states she followed up with [facility] and is preparing for surgery either on Wednesday or Wednesday next week. Patient states she broke the bone in her upper left arm and is needing a plate. Discussed if patient is requesting to follow up at [facility] instead of [facility]. Patient states since this is a work comp claim, she will continue to follow up with [facility]. Patient will have [facility] send all medical records to [facility] since her primary care provider is in [place]. * Telephone Encounter - Nancy Garrison L.P.N. - 12/02/2023 9:23 AM CDT Left message to call clinic back with daughter Cherie. No release on file. No ER records viewablein system. documented in this encounter Plan of Treatment Upcoming Encounters Date Type Department Care Team (Latest Contact Info) Description 12/24/2023 10:10 AM CDT Appointment Department of Laboratory Medicine in [place], [place] [address] [place] [phone] Patrick Erickson D.O. [address] [place] [phone] 12/24/2023 3:50 PM CDT Appointment Department of Laboratory Medicine in [place], [place] [address] [place] [phone] Patrick Erickson D.O. [address] [place] [address] 12/24/2023 4:20 PM CDT Anticoagulation Visit Department of Anticoagulation in [place], [place] [address] [place] [address] Soheila Zapata P.A.-C., M.S. [address] [address] Arrived 12/28/2023 1:00 PM CDT Office Visit Department of Internal Medicine in [place], [place] [address], [place] [phone] Patrick Erickson D.O. [address] [place] [address] documented as of this encounter Visit Diagnoses Not on filedocumented in this encounter Additional Health Concerns Infection Onset Date Last Indicated Resolved Time COVID19 11/26/2023 11/26/2023 12/16/2023 6:00 AM CDT Assessment Noted Time PHQ-9 Depression Total Score: 9 02/23/20 7:41 PM ADVERTISING WRITER documented as of this encounter Care Teams Body Repairer Relationship Specialty Start Date End Date Patrick Erickson D.O. [address] [place] [phone] PCP - General Internal Medicine 08/12/22 documented as of this encounter
--- OUTSIDE RECORDS SUMMARY | 2023-12-24 08:45 | XMS_ITS | Encounter Summary ---
Author Organization [facility] Address [address] [place] [address] Care Team Providers Care Wall Worker Name Role Phone Patrick Erickson D.O. Primary Care Provider +1- [phone] Reason for Visit * Reason Onset Date Comments Anticoagulation 11/02/2023 CCM Update-New P CP Encounter Details Date Type Department Care Team (Latest Contact Info) Description 11/02/2023 Clinical Communication Department of Anticoagulation in [place], [place] [address] [place] [address] Cullen Guillen, R.NHowie [address] [place] [phone] Anticoagulation (CCM Update-New PCP) Social History Tobacco Use Types Packs/Day Years Used Date Smoking Tobacco: Never Smokeless Tobacco: Never Alcohol Use Standard Drinks/Week Comments No 0 (1 standard drink = 0.6 oz pur e alcohol) [facility] Utilities Answer Date Recorded In the past 12 months has e [employer], gas, oil, or water [employer] threatened to shut off services in your [...] often do you attend chur ch or jehovah's witness services? More than 4 times per year 05/30/2022 Do you belong to any clubs o r organizations such as voodoo groups, unions, fraternal or athletic groups, or [...] Answer Date Recorded PHQ-2 Score 0 04/27/2023 [facility] of Occupat ional Health [...] your living situation today? I have a [facility] place to live 07/01/2023 Education Answer Date Recorded What is the highest level of school you have completed or the highest degree you have received? Associate degree: occupational, technical, or vocational program 05/30/2022 Comments No Sex and Gender Information Value Date Recorded Sex Assigned at Female 12/19/2021 3:32 AM CDT Legal Sex Female 9:57 PM EEG TECH Gender Identity Female 09/24/2022 9:59 PM CDT Sexual Orientation Straight 12/19/2021 3: 32 AM CDT documented as of this encounter Miscellaneous Notes * Telephone Encounter - Patrick Erickson D.O. - 11/02/2023 4:53 PM CDT Yes agree with CCM enrollment Electronically signed by: Patrick Erickson D.O. 11/02/23 4:53 PM CDT * Telephone Encounter - uCllen Guillen R.N. - 11/02/2023 3:53 PM CDT [...] and reimbursement for services provided outside of zffi-et-mkxc office visits. If you agree with this [...] Appointment Department of Laboratory Medicine in [address] [phone] Patrick Erickson D.O. [address] [place] [phone] 12/24/2023 3:50 PM CDT Appointment Department of Laboratory Medicine in [address] [address] Patrick Erickson D.O. [address] [place] [phone] 12/24/2023 4:20 PM CDT Anticoagulation Visit Department of Anticoagulation in [place], [place] [address] [place] [address] Soheila Zapata P.A.-C., M.S. [address] [phone] Arrived 12/28/2023 1:00 PM CDT Office Visit Department of Internal Medicine in [place], [place] [address] [phone] Patrick Erickson D.O. [address] [phone] documented as of this encounter [...] Depression Total Score: 9 02/23/20 7:41 PM EEG TECH documented as of this encounter Care Teams Wall Worker Relationship Specialty Start Date End Date Patrick Erickson D.O. [address] [phone] PCP - General Internal Medicine 08/12/22 documented as of this encounter
--- OUTSIDE RECORDS SUMMARY | 2023-12-24 08:45 | XMS_ITS | Encounter Summary ---
Author Organization [facility] Address [address] [place] [address] Care Team Providers Care Rn Sane Name Role Phone Patrick Erickson D.O. Primary Care Provider +1- [phone] Reason for Referral * Outpatient (Routine) - Authorized Specialty Diagnoses / Procedures Referred By Contkarri t Referred To Contact Patrick Erickson D.O. [address], [place] [address] Phone: tel: fax: [facility] Region Referral ID Status Reason Start Date Expiration Date V isits Requested Visits Authorized [id number] Authorized 11/09/2023 05/10/2025 1 1 Scheduling Instructions Nurse AWV Do not schedule prior to due date to ensure insurance coverage Visit: Medicare Annual Wellness Never done. Encounter Details Date Type Department Care Team (Late st Contact Info) Description 11/09/2023 Orders Only [facility] PCP [facility] Patrick Erickson D.O. [address] [place] [phone] Social History Tobacco Use Types Packs/Day [...] any clubs o r organizations such as judaism groups, unions, fraternal or athletic groups, or [...] Answer Date Recorded PHQ-2 Score 0 04/27/2023 [facility] [place] of Occupat ional Health - Occupational Stress [...] your living situation today? I have a [facility] place to live 07/01/2023 Education Answer Date Recorded What is the highest level of school you have completed or the highest degree you have received? Associate degree: occupational, technical, or vocational program 05/30/2022 Comments No Sex and Gender Information Value Date Recorded Sex Assigned at Female 12/19/2021 3:32 AM CDT Legal Sex Female 9:57 PM TOOLING ENGINEER Gender Identity Female 09/24/2022 9:59 PM CDT Sexual Orientation Straight 12/19/2021 3: 32 AM CDT documented as of this encounter Plan of Treatment Upcoming Encounters Date Type Department Care Team (Latest Contact Info) Description 12/24/2023 10:10 AM CDT Appointment Department of Laboratory Medicine in [place], [place] [address] [place] [phone] Patrick Erickson D.O. [address] [place] [phone] 12/24/2023 3:50 PM CDT Appointment Department of Laboratory Medicine in [place], [place] [address] [place] [phone] Patrick Erickson D.O. [address] [place] [phone] 12/24/2023 4:20 PM CDT Anticoagulation Visit Department of Anticoagulation in [place], [place] [address] [place] [address] Soheila Zapata P.A.-Ashish., M.S. [address] [place] [phone] Arrived 12/28/2023 1:00 PM CDT Office Visit Department of Internal Medicine in [place], [place] [address] [place] [address] Patrick Erickson D.O. [address] [place] [phone] Scheduled Referrals Name Type Priority Associated Diagnoses Orde r Schedule Primary Care nurse visit (clinic) - [facility] Region; Medicare Annual Wellness Outpatient Referral Routine Expected: 12/07/2023, Expires: 05/07/2024 documented as of this encounter Visit Diagnoses Not on filedocumented in this encounter Additional Health Concerns Assessment Noted Time PHQ-9 Depression Total Score: 9 02/23/20 7:41 PM TOOLING ENGINEER documented as of this encounter Care Teams Rn Sane Relationship Specialty Start Date End Date Patrick Erickson D.O. [address] [place] [phone] PCP - General Internal Medicine 08/12/22 documented as of this encounter
--- OUTSIDE RECORDS SUMMARY | 2023-12-24 08:45 | XMS_ITS | Encounter Summary ---
Author Organization [facility] Address [address] [place] [address] Care Team Providers Care Licensing Analyst Name Role Phone Patrick Erickson D.O. Primary Care Provider +1- [phone] Reason for Visit * Outpatient (Routine) - Authorized Specialty Diagnoses / Procedures Referred By Contkarri t Referred To Contact Anticoagulation Soheila Zapata P.A.-C., M.S. [address] [place] [address] Phone: tel: fax: [facility] Referral ID Status Reason Start Date Expiration Date V isits Requested Visits Authorized [id number] Authorized 01/07/2022 01/06/2025 300 300 Encounter Details Date Type Department Care Team (Latest Contact Info) Description 11/22/2023 4:00 PM CDT Anticoagulation Visit Department of Anticoagulation in [place], [place] [address] [place] [address] Soheila Zapata P.A.-C., M.S. 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 More than 4 times per year 05/30/2022 Do you belong to any clubs o r organizations such as alevism groups, unions, fraternal or athletic groups, or [...] Answer Date Recorded PHQ-2 Score 0 04/27/2023 [facility] - Occupational Stress Questionnaire Answer [...] your living situation today? I have a [facility] place to live 07/01/2023 Education Answer Date Recorded What is the highest level of school you have completed or the highest degree you have received? Associate degree: occupational, technical, or vocational program 05/30/2022 Comments No Sex and Gender Information Value Date Recorded Sex Assigned at Female 12/19/2021 3:32 AM CDT Legal Sex Female 9:57 PM BIBLICAL LANGUAGES PROFESSOR Gender Identity Female 09/24/2022 9:59 PM CDT [...] please call Primary Care Anticoagulation Program at [phone] from 7:30 am to 4:30 pm. Wednesday-Wednesday [...] if you start any herbal or other mkce-ecp-ywkxnnh product (check with your doctor, a nurse, [...] this encounter Progress Notes * Liza Gray RHowieN. - 11/22/2023 4:00 PM CDT Warfarin Maintenance [...] in 7 days per consult with Anticoagulation [facility]. Pt is on injectable anticoagulant: No. Plan [...] CDT Appointment Department of Laboratory Medicine in [place], [place] [address] [place] [phone] Patrick Erickson D.O. [address] [phone] 12/24/2023 3:50 PM CDT Appointment Department of Laboratory Medicine in [place], [place] [address] [place] [phone] Patrick Erickson D.O. [address] [phone] 12/24/2023 4:20 PM CDT Anticoagulation Visit Department of Anticoagulation in [place], [place] [address] [place] [address] Soheila Zapata P.A.-Ashish., M.S. [address] [place] [phone] Arrived 12/28/2023 1:00 PM CDT Office Visit Department of Internal Medicine in [place], [place] [address] [place] [phone] Patrick Erickson D.O. 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 [address] [place] [phone] PCP - General Internal Medicine 08/12/22 documented as of this encounter
--- OUTSIDE RECORDS SUMMARY | 2023-12-24 08:45 | XMS_ITS | Encounter Summary ---
Author Organization [facility] Address [address] [place] [address] Care Team Providers Care Occupational Therapy Co Director Name Role Phone Patrick Erickson D.O. Primary Care Provider +1- [phone] Reason for Visit * Outpatient (Routine) - Authorized Specialty Diagnoses / Procedures Referred By Prosper t Referred To Contact Anticoagulation Soheila Zapata P.A.-C., M.S. [address] [place] [address] Phone: tel: fax: [facility] Referral ID Status Reason Start Date Expiration Date V isits Requested Visits Authorized [id number] Authorized 01/07/2022 01/06/2025 300 300 Encounter Details Date Type Department Care Team (Latest Contact Info) Description 11/02/2023 3:30 PM CDT Anticoagulation Visit Department of Anticoagulation in [place], [place] [address] [place] [address] Soheila Zapata P.A.-C., M.S. [address] [place] [address] Hypertensive Heart And Chronic Kidney [...] drink = 0.6 oz pur e alcohol) [facility] Utilities Answer Date Recorded In the [...] How often do you attend chur or gnosticism services? More than 4 times per year [...] Answer Date Recorded PHQ-2 Score 0 04/27/2023 [facility] - Occupational Stress Questionnaire Answer Date [...] AM CDT Legal Sex Female 9:57 PM CHIEF NURSING EXECUTIVE Gender Identity Female 09/24/2022 9:59 PM CDT [...] please call Primary Care Anticoagulation Program at [phone] from 7:30 am to 4:30 pm. Wednesday-Wednesday [...] if you start any herbal or other okpo-plh-mskrwcz product (check with your doctor, a nurse, [...] stating consult required. Consulted Anticoagulation [facility] for plan. Currently bridging: no. [...] CDT Appointment Department of Laboratory Medicine in [place], [place] [address] [place] [phone] Patrick Erickson D.O. [address] [place] [address] [phone] 12/24/2023 3:50 PM CDT Appointment Department of Laboratory Medicine in [place], [place] [address] [place] [phone] Patrick Erickson D.O. [address], [place] [address] 12/24/2023 4:20 PM CDT Anticoagulation Visit Department of Anticoagulation in [place], [place] [address] [place] [address] Soheila Zapata P.A.-C., M.S. [address] [place] [phone] Arrived 12/28/2023 1:00 PM CDT Office Visit Department of Internal Medicine in [place], [place] [address] [place] [phone] Patrick Erickson D.O. [address] [place] [address] [phone] documented as of this encounter [...] - CARLOS ENRIQUE CE Final Result [facility] [address] [place] [address], [facility] FB60 [facility] in [place] [address] [place] [address] documented in this encounter Visit Diagnoses Diagnosis [...] Depression Total Score: 9 02/23/20 7:41 PM CHIEF NURSING EXECUTIVE documented as of this encounter Care Teams Occupational Therapy Co Director Relationship Specialty Start Date End Date Patrick Erickson D.O. [address] [place] [phone] PCP - General Internal Medicine 08/12/22 documented as of this encounter
--- OUTSIDE RECORDS SUMMARY | 2023-12-24 08:45 | XMS_ITS | Encounter Summary ---
Author Organization [facility] Address [address] [place] [address] Care Team Providers Care Meteorological Equipment Repairer Name Role Phone Patrick Erickson D.O. Primary Care Provider +1- [phone] Reason for Visit * Reason Onset Date Comments Cough 11/27/2023 Encounter Details Date Type Department Care Team (Late st Contact Info) Description 11/27/2023 Nurse Triage Department of Internal Medicine in [place], [place] [address], [place] [phone] Kari Olivarez, RHowieNHowie [address] [place] [address] Cough Social History Tobacco Use Types Packs/Day Years Used Date Smoking Tobacco: Never Smokeless Tobacco: Never Alcohol Use Standard Drinks/Week Comments No 0 (1 standard drink = 0.6 oz pur e alcohol) [facility] Utilities Answer Date Recorded In the past 12 months has e [employer], gas, oil, or water [employer] threatened to shut off services in your [...] often do you attend chur ch or cheondoism services? More than 4 times per year [...] AM CDT Legal Sex Female 9:57 PM ART STUDIO TEACHER Gender Identity Female 09/24/2022 9:59 PM CDT Sexual Orientation Straight 12/19/2021 3: 32 AM CDT documented as of this encounter Miscellaneous Notes * Result Encounter Note - Juana Bowman, RHowieN. - 11/29/2023 9:39 AM CDT A COVID-19 positive test result has been entered for your patient. They are considered high risk for COVID-19 (MASS 6+, immunocompromised, , 65 years or older). Your patient will receive proactive outreach regarding their treatment options. Patients who reside in halfway facilities will be informed of their positive test results via their facility care team, portal, or US mail but will NOT be called by the [place] Virtual Care team to discuss treatment. Patients should work with their facility care team for treatment options. - [facility] Virtual (COVID-19) Care Team * Telephone Encounter [...] your documented past medical history in the [facility] medical record. If you should develop any [...] Disposition Cough Protocols used: Cough - Acute Nex-Qypqcoabqp-WXBOX- Care Advice Patient/Caregiver understands and will follow care advice?: Yes, able to teach back Cough - Acute Vsl-Qfcocggbmd-VIWCO-AH Nurse Kari Cain Nov 27, 2023 12:50 PM Care Advice [...] with you. * Cough drops are available hfgi-nuc-pyztsyv (OTC). * HOME REMEDY - HARD CANDY: Hard candy works just as well as a medicine-flavored OTC cough drops. COUGH MEDICINES: * COUGH DROPS: Lwfm-mdj-qsdlwpj cough drops can help a lot, especially for mild coughs. They soothean irritated throat and remove the tickle sensation in the back of the throat. Cough drops are easyto carry with you. * COUGH SYRUP WITH DEXTROMETHORPHAN: An hocu-suz-utmkbuf cough syrup can help your cough. The most common cough suppressant in evpz-hzf-xjpqfax cough medicines is dextromethorphan. * HOME REMEDY - HARD CANDY: Hard candy works just as well as dzyd-qqn-sukaajh cough drops. People who have diabetes should [...] CDT Appointment Department of Laboratory Medicine in [place], [place] [address] [place] [phone] Patrick Erickson D.O. [address] [phone] 12/24/2023 3:50 PM CDT Appointment Department of Laboratory Medicine in [place], [place] [address] [place] [phone] Patrick Erickson D.O. [address] [phone] 12/24/2023 4:20 PM CDT Anticoagulation Visit Department of Anticoagulation in [place], [place] [address] [place] [address] Soheila Zapata P.A.-C., M.S. [address] [place] [phone] Arrived 12/28/2023 1:00 PM CDT Office Visit Department of Internal Medicine in [place], [place] [address] [place] [phone] Patrick Erickson D.O. [address] [phone] documented as of this encounter Procedures Procedure Name Priority Date/Time Associated Diagnosis Comments EXTM HOME SARS CORONAVIRUS-2 (COVID-19) ANTIGEN, V Routine 11/26/2023 6:00 PM CDT documented in this encounter Results * (ABNORMAL) EXT Home SARS Coronavirus-2 (COVID-19) Antigen (11/26/2023 6:00 PM CDT) EXT Home SARS-CoV-2 Antigen Presumptive Positive(A) Presumptive Negative OTHER (SPECIFY IN TECHNICAL INSTRUCTOR COURSE DEVELOPER) Swab 11/26/2023 6:00 PM CDT us Historical Provider LAB MICROBIOLOGY - GENERAL O RDERABLES Final Result OTHER (SPECIFY IN TECHNICAL INSTRUCTOR COURSE DEVELOPER) N/A documented in this encounter Visit Diagnoses Not on filedocumented in this encounter Additional Health Concerns Infection Onset Date Last Indicated Resolved Time COVID19 11/26/2023 11/26/2023 12/16/2023 6:00 AM CDT Assessment Noted Time PHQ-9 Depression Total Score: 9 02/23/20 7:41 PM ART STUDIO TEACHER documented as of this encounter Care Teams Meteorological Equipment Repairer Relationship Specialty Start Date End Date Patrick Erickson D.O. [address] [place] [phone] PCP - General Internal Medicine 08/12/22 documented as of this encounter
--- OUTSIDE RECORDS SUMMARY | 2023-12-24 08:46 | XMS_ITS | Encounter Summary ---
Author Organization [facility] Address [address] [place] [address] Care Team Providers Care Heel Sander Name Role Phone Patrick Erickson D.O. Primary Care Provider +1- [phone] Reason for Visit * Outpatient (Routine) - Authorized Specialty Diagnoses / Procedures Referred By Prosper t Referred To Contact Anticoagulation Soheila Zapata P.A.-C., M.S. 4 [place] [address] Phone: tel: fax: [facility] Referral ID Status Reason Start Date Expiration Date V isits Requested Visits Authorized [id number] Authorized 01/07/2022 01/06/2025 300 300 Encounter Details Date Type Department Care Team (Latest Contact Info) Description 09/24/2023 3:30 PM CDT Anticoagulation Visit Department of Anticoagulation in [place], [place] [address] [place] [address] Soheila Zapata P.A.-C., M.S. 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 More than 4 times [...] 04/27/2023 [facility] - Occupational Stress Questionnaire Answer Date [...] your living situation today? I have a [facility] place to live 07/01/2023 Education Answer Date Recorded What is the highest level of school you have completed or the highest degree you have received? Associate degree: occupational, technical, or vocational program 05/30/2022 Comments No Sex and Gender Information Value Date Recorded Sex Assigned at Female 12/19/2021 3:32 AM CDT Legal Sex Female 9:57 PM INVESTIGATOR INTERNAL AFFAIRS Gender Identity Female 09/24/2022 9:59 PM CDT Sexual Orientation Straight 12/19/2021 3: 32 AM CDT documented as of this encounter Patient Instructions * Patient Instructions* Herminia Harris RMoraima. - 09/24/2023 3:30 PM CDT Your next INR will be 09/29/23. You will need to call the Anticoagulation Program for warfarin dosing at the scheduled time for your nurse visit, as indicated on your Patient Appointment Guide (PAG). To reschedule your appointment or for questions about your warfarin, please call Primary Care Anticoagulation Program at [phone] from 7:30 am to 4:30 pm. Wednesday-Wednesday [...] if you start any herbal or other mqah-zux-xzkfegu product (check with your doctor, a nurse, or pharmacist). If you change your diet significantly. If you decide to stop or start using tobacco or alcohol. If you notice unusual bruising or bleeding. If you notice dark, tarry, or bright red stools or blood in your urine. If you have a painful and swollen calf. documented in this encounter Progress Notes * Herminia Harris, RHowieN. - 09/24/2023 3:30 PM CDT Warfarin Maintenance [...] follow-up information: Provider consulted: Edna Sevilla- Anticoagulation [facility] [...] CDT Appointment Department of Laboratory Medicine in [place], [place] [address] [place] [phone] Patrick Erickson D.O. [address] [address] 12/24/2023 3:50 PM CDT Appointment Department of Laboratory Medicine in [address] [phone] Patrick Erickson D.O. [address] [address] 12/24/2023 4:20 PM CDT Anticoagulation Visit Department of Anticoagulation in [place], [place] [address] [place] [address] Soheila Zapata P.A.-Ashish., M.S. [address] [place] [address] Arrived 12/28/2023 1:00 PM CDT Office Visit Department of Internal Medicine in [place], [place] [address] [place] [address] Patrick Erickson D.O. [address] [address] documented as of this encounter Results * INR Reflex, POCT, Blood (10/01/2023 3:00 PM CDT) INR Reflex, POCT, B 3.4 10/01/2023 3:00 PM CDT OW Comment: ----ADDITIONAL INFORMATION---- Standard intensity warfarin therapeutic range: 2.0 to 3.0 ?? High intensity warfarin therapeutic range: 2.5 to 3.5 Blood (Blood, Capillary) 10/01/2023 3:00 PM CDT 10/01/2023 3:00 PM CDT us Patrick Erickson D.O. 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 [address] [place] [phone] PCP - General Internal Medicine 08/12/22 documented as of this encounter
--- OUTSIDE RECORDS SUMMARY | 2023-12-24 08:46 | XMS_ITS | Encounter Summary ---
Author Organization [facility] Address [address] [place] [address] Care Team Providers Care Faculty Head Name Role Phone Patrick Erickson D.O. Primary Care Provider +1- [phone] Encounter Details Date Type Department Care Team (Latest Contact Info) Description 10/01/2023 2:30 PM CDT - 10/01/2023 11:59 PM CDT Hospital Encounter Department of Laboratory Medicine in [place], [place] [address] [place] [address] Patrick Erickson D.O. [address] [address] Hypertensive Heart With Heart Failure [...] drink = 0.6 oz pur e alcohol) [facility] Utilities Answer Date Recorded In the past 12 months has th e [employer], gas, oil, or water [employer]where threatened to shut off services in your [...] How often do you attend chur or buddhism services? More than 4 times [...] Answer Date Recorded PHQ-2 Score 0 04/27/2023 [facility] [place] of Occupat ional Health - Occupational Stress [...] AM CDT Legal Sex Female 9:57 PM GREEN MARKETER Gender Identity Female 09/24/2022 9:59 PM CDT [...] tablet every day 90 tablet 3 4 eydufwc-qull-qxign -oreg-capryl 100 mg-150 mg- 50 mg-150 mg [...] Fibrillation Paroxysmal (HCC),Monitoring For Therapeutic Drug Therapy,Supervisor Wrapping Room (Current) Anticoagulant Treatment Please take as directed [...] Appointment Department of Laboratory Medicine in [address] [place] [phone] Patrick Erickson D.O. [address] [address] 12/24/2023 3:50 PM CDT Appointment Department of Laboratory Medicine in [place], [place] [address] [place] [phone] Patrick Erickson D.O. [address] [phone] 12/24/2023 4:20 PM CDT Anticoagulation Visit Department of Anticoagulation in [place], [place] [address] [place] [address] Soheila Zapata P.A.-C., M.S. [address] [address] Arrived 12/28/2023 1:00 PM CDT Office Visit Department of Internal Medicine in [place], [place] [address] [address] Patrick Erickson D.O. [address] [address] documented as of this encounter [...] ORDERABLES - CARLOS ENRIQUE CE Final Result [facility] [address] [place] [address], 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 [address] [phone] PCP - General Internal Medicine 08/12/22 documented as of this encounter
--- OUTSIDE RECORDS SUMMARY | 2023-12-24 08:46 | XMS_ITS | Encounter Summary ---
Author Organization [facility] Address [address] [place] [address] Care Team Providers Care Precision Agriculture Technician Name Role Phone Patrick Erickson D.O. Primary Care Provider +1- [phone] Reason for Visit * Outpatient (Routine) - Authorized Specialty Diagnoses / Procedures Referred By Prosper t Referred To Contact Anticoagulation Soheila Zapata P.A.-C., M.S. [address] [place] [address] Phone: tel: fax: [facility] Referral ID Status Reason Start Date Expiration Date V isits Requested Visits Authorized [id number] Authorized 01/07/2022 01/06/2025 300 300 Encounter Details Date Type Department Care Team (Latest Contact Info) Description 10/28/2023 3:30 PM CDT Anticoagulation Visit Department of Anticoagulation in [place], [place] [address] [place] [address] Soheila Zapata P.A.-C., M.S. 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 More than 4 [...] Date Recorded PHQ-2 Score 0 04/27/2023 [facility] - Occupational Stress Questionnaire [...] your living situation today? I have a [facility] place to live 07/01/2023 Education Answer Date Recorded What is the highest level of school you have completed or the highest degree you have received? Associate degree: occupational, technical, or vocational program 05/30/2022 Comments No Sex and Gender Information Value Date Recorded Sex Assigned at Female 12/19/2021 3:32 AM CDT Legal Sex Female 9:57 PM UNIFIED COMMUNICATIONS ARCHITECT Gender Identity Female 09/24/2022 9:59 PM [...] please call Primary Care Anticoagulation Program at [phone] from 7:30 am to 4:30 pm. Wednesday-Wednesday [...] if you start any herbal or other nhhe-xsr-brgwgrz product (check with your doctor, a nurse, [...] CDT Appointment Department of Laboratory Medicine in [place], [place] [address] [place] [phone] Patrick Erickson D.O. [address] [address] 12/24/2023 3:50 PM CDT Appointment Department of Laboratory Medicine in [place], [place] [address] [place] [phone] Patrick Erickson D.O. [address], [place] [address] 12/24/2023 4:20 PM CDT Anticoagulation Visit Department of Anticoagulation in [place], [place] [address] [place] [address] Soheila Zapata P.A.-C., M.S. [address] [place] [address] Arrived 12/28/2023 1:00 PM CDT Office Visit Department of Internal Medicine in [place], [place] [address] [place] [address] Patrick Erickson D.O. [address] [address] documented as of this encounter [...] CARLOS ENRIQUE CE Final Result [facility] [employer] [employer] [employer] [address] [place] [address], [facility] FB60 [facility] in [place] [address] [place] [address] documented in this encounter Visit Diagnoses Diagnosis [...] Depression Total Score: 9 02/23/20 7:41 PM UNIFIED COMMUNICATIONS ARCHITECT documented as of this encounter Care Teams Precision Agriculture Technician Relationship Specialty Start Date End Date Patrick Erickson D.O. [address] [phone] PCP - General Internal Medicine 08/12/22 documented as of this encounter
--- OUTSIDE RECORDS SUMMARY | 2023-12-24 08:46 | XMS_ITS | Encounter Summary ---
Author Organization [facility] Address [address] [place] [address] Care Team Providers Care Customer Engagement Manager Name Role Phone Patrick Erickson D.O. Primary Care Provider +1- [phone] Reason for Visit * Reason Onset Date Comments Anticoagulation 10/01/2023 Out of range INR . Encounter Details Date Type Department Care Team (Latest Contact Info) Description 10/01/2023 Clinical Communication Department of Anticoagulation in [place], [place] [address] [place] [address] La Mendoza, RHowieNHowie Anticoagulation (Out of range INR.) Social History Tobacco Use Types Packs/Day Years Used Date Smoking Tobacco: Never Smokeless Tobacco: Never Alcohol Use Standard Drinks/Week Comments No 0 (1 standard drink = 0.6 oz pur e alcohol) [facility] Utilities Answer Date Recorded In the past 12 months has [employer], gas, oil, or water [employer] threatened to shut off services in your [...] Answer Date Recorded PHQ-2 Score 0 04/27/2023 [facility] Occupat ional Health - Occupational [...] your living situation today? I have a [facility] place to live 07/01/2023 Education Answer Date Recorded What is the highest level of school you have completed or the highest degree you have received? Associate degree: occupational, technical, or vocational program 05/30/2022 Comments No Sex and Gender Information Value Date Recorded Sex Assigned at Female 12/19/2021 3:32 AM CDT Legal Sex Female 9:57 PM ATTENDANCE OFFICER Gender Identity Female 09/24/2022 9:59 PM CDT [...] CDT Appointment Department of Laboratory Medicine in [place], [place] [address] [place] [phone] Patrick Erickson D.O. [address] [phone] 12/24/2023 3:50 PM CDT Appointment Department of Laboratory Medicine in [place], [place] [address] [place] [phone] Patrick Erickson D.O. [address] [phone] 12/24/2023 4:20 PM CDT Anticoagulation Visit Department of Anticoagulation in [place], [place] [address] [place] [address] Soheila Zapata P.A.-C., M.S. [address] [address] Arrived 12/28/2023 1:00 PM CDT Office Visit Department of Internal Medicine in [place], [place] [address] [address] Patrick Erickson D.O. [address] [address] documented as of this encounter Visit Diagnoses Not on filedocumented in this encounter Additional Health Concerns Assessment Noted Time PHQ-9 Depression Total Score: 9 02/23/20 23 7:41 PM ATTENDANCE OFFICER documented as of this encounter Care Teams Customer Engagement Manager Relationship Specialty Start Date End Date Patrick Erickson D.O. [address] [address] (work) PCP - General Internal Medicine 08/12/22 documented as of this encounter
--- OUTSIDE RECORDS SUMMARY | 2023-12-24 08:46 | XMS_ITS | Encounter Summary ---
Author Organization [facility] Address [address] [place] [address] Care Team Providers Care Mri Special Procedures Technologist Name Role Phone Patrick Erickson D.O. Primary Care Provider +1- [phone] Encounter Details Date Type Department Care Team (Latest Contact Info) Description 10/07/2023 2:49 PM CDT - 10/07/2023 11:59 PM CDT Hospital Encounter Department of Laboratory Medicine in [place], [place] [address] [place] [phone] Patrick Erickson D.O. [address] [place] [phone] Atrial Fibrillation Paroxysmal (HCC) Discharge Disposition: Home [...] How often do you attend chur or scientologist services? More than 4 times [...] Answer Date Recorded PHQ-2 Score 0 04/27/2023 [facility] of Occupat ional Health - Occupational [...] AM CDT Legal Sex Female 9:57 PM AVIATION MAINTENANCE TECHNICIAN Gender Identity Female 09/24/2022 9:59 PM [...] tablet every day 90 tablet 3 4 qrzxpue-zdah-eqlpm -oreg-capryl 100 mg-150 mg- 50 mg-150 mg [...] Treatment,Atrial Fibrillation Paroxysmal (HCC),Monitoring For Therapeutic Drug Therapy,Wet Finisher (Current) Anticoagulant Treatment Please take as directed [...] Appointment Department of Laboratory Medicine in [address] [place] [address] Patrick Erickson D.O. [address] [place] [phone] 12/24/2023 3:50 PM CDT Appointment Department of Laboratory Medicine in [place], [place] [address] [facility] [place] [address] Patrick Erickson D.O. [address] [place] [phone] 12/24/2023 4:20 PM CDT Anticoagulation Visit Department of Anticoagulation in [place], [place] [address] [place] [address] Soheila Zapata P.A.-C., M.S. [address] [phone] Arrived 12/28/2023 1:00 PM CDT Office Visit Department of Internal Medicine in [place], [place] [address] [place] [phone] Patrick Erickson D.O. [address] [address] documented as of this encounter [...] 2:55 PM CDT 10/07/2023 2:54 PM CDT us Patrick Erickson D.O. LAB POCT ORDERABLES - CARLOS ENRIQUE CE Final Result [facility] [address] [place] [address], [facility] FB60 [facility] in [place] [address] [place] [address] documented in this encounter Visit Diagnoses Diagnosis Atrial Fibrillation Paroxysmal (HCC) documented in this encounter Additional Health Concerns Assessment Noted Time PHQ-9 Depression Total Score: 9 02/23/20 23 7:41 PM AVIATION MAINTENANCE TECHNICIAN documented as of this encounter Care Teams Mri Special Procedures Technologist Relationship Specialty Start Date End Date Patrick Erickson D.O. [address] [place] [address] PCP - General Internal Medicine 08/12/22 documented as of this encounter
--- OUTSIDE RECORDS SUMMARY | 2023-12-24 08:46 | XMS_ITS | Encounter Summary ---
Author Organization [facility] Address [address] [place] [address] Care Team Providers Care Radar Technician Name Role Phone Patrick Erickson D.O. Primary Care Provider +1- [phone] Encounter Details Date Type Department Care Team (Latest Contact Info) Description 09/21/2023 11:55 AM CDT - 09/21/2023 11:59 PM CDT Hospital Encounter Department of Laboratory Medicine in [place] [address] [place] [phone] Patrick Erickson D.O. 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 Glomerular Filtration Rate (GFR) 45 To 59 (HCC); Hyperlipidemia On Treatment; Atrial Fibrillation Paroxysmal (HCC); Monitoring For Therapeutic Drug Therapy; Assisted (Current) Anticoagulant Treatment Discharge Disposition: Home or Self Care Social History Tobacco Use Types Packs/Day Years Used Date Smoking Tobacco: Never Smokeless Tobacco: Never Alcohol Use Standard Drinks/Week Comments No 0 (1 standard drink = 0.6 oz pur e alcohol) [facility] Utilities Answer Date Recorded In the past 12 months has th e electric, gas, oil, or water [employer] threatened to shut off services in [...] any clubs o r organizations such as buddhist groups, unions, fraternal or athletic groups, or [...] Answer Date Recorded PHQ-2 Score 0 04/27/2023 [facility] [place] of Occupat ional Health - Occupational Stress [...] your living situation today? I have a [facility] place to live 07/01/2023 Education Answer Date Recorded What is the highest level of school you have completed or the highest degree you have received? Associate degree: occupational, technical, or vocational program 05/30/2022 Comments No Sex and Gender Information Value Date Recorded Sex Assigned at Female 12/19/2021 3:32 AM CDT Legal Sex Female 9:57 PM SOLE SEAMER Gender Identity Female 09/24/2022 9:59 PM CDT [...] tablet every day 90 tablet 3 4 slbimov-cuja-fsqms -oreg-capryl 100 mg-150 mg- 50 mg-150 mg [...] Treatment,Atrial Fibrillation Paroxysmal (HCC),Monitoring For Therapeutic Drug Therapy,Assisted (Current) Anticoagulant Treatment Please take as directed by your Anticoagulation Clinic. 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 120 tablet 3 4 12/06/19 24 documented as of this encounter Plan of Treatment Upcoming Encounters Date Type Department Care Team (Latest Contact Info) Description 12/24/2023 10:10 AM CDT Appointment Department of Laboratory Medicine in [address] [phone] Patrick Erickson D.O. [address] [phone] 12/24/2023 3:50 PM CDT Appointment Department of Laboratory Medicine in [place], [place] 300 [facility] [place] [phone] Patrick Erickson D.O. [address] [phone] 12/24/2023 4:20 PM CDT Anticoagulation Visit Department of Anticoagulation in [place], [place] [address] [place] [address] Soheila Zapata P.A.-C., M.S. [address] [address] Arrived 12/28/2023 1:00 PM CDT Office Visit Department of Internal Medicine in [place], [place] [address] [address] Patrick Erickson D.O. [address] [address] documented as of this encounter [...] Paroxysmal (HCC) Monitoring For Therapeutic Drug Therapy Cancer Center Director (Current) Anticoagulant Treatment documented in this encounter [...] ADD-ON Final Res ult Performing Organization Address [facility] [address]/[facility] de Phone Number [facility] [address] [place] [address], [place] OWAT [facility] in [place] [address] [place] [phone] * (ABNORMAL) INR Reflex, POCT, Blood (09/21/2023 [...] ENRIQUE CE Final Result Performing Organization Address [facility] [address]/[facility] Co de Phone Number [facility] [address] [place] [address], [place] FB60 [facility] in [place] [address] [place] [address] documented in this encounter Visit Diagnoses Diagnosis 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 [address], [place] [address] PCP - General Internal Medicine 08/12/22 documented as of this encounter
--- OUTSIDE RECORDS SUMMARY | 2023-12-24 08:46 | XMS_ITS | Encounter Summary ---
Author Organization [facility] Address [address] [place] [address] Care Team Providers Care Social Media Marketing Analyst Name Role Phone Patrick Erickson D.O. Primary Care Provider +1- [phone] Reason for Visit * Outpatient (Routine) - Authorized Specialty Diagnoses / Procedures Referred By Prosper t Referred To Contact Anticoagulation Soheila Zapata P.A.-C., M.S. [address] [place] [address] Phone: tel: fax: [facility] Referral ID Status Reason Start Date Expiration Date V isits Requested Visits Authorized [id number] Authorized 01/07/2022 01/06/2025 300 300 Encounter Details Date Type Department Care Team (Latest Contact Info) Description 10/19/2023 10:10 AM CDT Anticoagulation Visit Department of Anticoagulation in [place], [place] [address] [place] [address] Soheila Zapata P.A.-C., M.S. 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 - Occupational Stress Questionnaire Answer [...] AM CDT Legal Sex Female 9:57 PM NITROGLYCERIN SUPERVISOR Gender Identity Female 09/24/2022 9:59 PM CDT Sexual Orientation Straight 12/19/2021 3: 32 AM CDT documented as of this encounter Patient Instructions * Patient Instructions* Neha Varghese R.N. - 10/19/2023 10:10 AM CDT Your next INR will be 10/27. You will need to call the Anticoagulation Program for warfarin dosing at the scheduled time for your nurse visit, as indicated on your Patient Appointment Guide (PAG). To reschedule your appointment or for questions about your warfarin, please call Primary Care Anticoagulation Program at [phone] from 7:30 am to 4:30 pm. Wednesday-Wednesday [...] if you start any herbal or other zzgz-zcp-adwtzic product (check with your doctor, a nurse, [...] stating consult required. Consulted Anticoagulation [facility] for plan. Currently bridging: no. INR is therapeutic/supratherapeutic. Additional dosing or follow-up information: Provider consulted: Champ Fenton- Anticoagulation [facility] Pt is on injectable anticoagulant: No. [...] CDT Appointment Department of Laboratory Medicine in [place], [place] [address] [place] [phone] Patrick Erickson D.O. [address] [address] 12/24/2023 3:50 PM CDT Appointment Department of Laboratory Medicine in [place], [place] [address] [place] [phone] Patrick Erickson D.O. [address] [address] 12/24/2023 4:20 PM CDT Anticoagulation Visit Department of Anticoagulation in [place], [place] [address] [place] [address] Soheila Zapata P.A.-C., M.S. [address] [address] Arrived 12/28/2023 1:00 PM CDT Office Visit Department of Internal Medicine in [place], [place] [address] [address] Patrick Erickson D.O. [address] [address] documented as of this encounter Results * INR Reflex, POCT, Blood (10/28/2023 3:00 PM CDT) INR Reflex, POCT, B 1.5 10/28/2023 2:59 PM CDT FB60 Comment: ----ADDITIONAL INFORMATION---- Standard intensity warfarin therapeutic range: 2.0 to 3.0 ?? High intensity warfarin therapeutic range: 2.5 to 3.5 Blood (Blood, Capillary) 10/28/2023 3:00 PM CDT 10/28/2023 2:59 PM CDT us Patrick Erickson D.O. LAB POCT ORDERABLES - CARLOS ENRIQUE CE Final Result [facility] [address] [place] [address], [facility] FB60 [facility] in [place] [address] [place] [address] documented in this encounter Visit Diagnoses Diagnosis [...] Total Score: 9 02/23/20 23 7:41 PM NITROGLYCERIN SUPERVISOR documented as of this encounter Care Teams Social Media Marketing Analyst Relationship Specialty Start Date End Date Patrick Erickson D.O. [address] [place] [address] PCP - General Internal Medicine 08/12/22 documented as of this encounter
--- OUTSIDE RECORDS SUMMARY | 2023-12-24 08:46 | XMS_ITS | Encounter Summary ---
Author Organization [facility] Address [address] [place] [address] Care Team Providers Care Video Game Developer Name Role Phone Patrick Erickson D.O. Primary Care Provider +1- [phone] Reason for Visit * Outpatient (Routine) - Authorized Specialty Diagnoses / Procedures Referred By Prosper t Referred To Contact Anticoagulation Soheila Zapata P.A.-C., M.S. [address] [place] [address] Phone: tel: fax: [facility] Referral ID Status Reason Start Date Expiration Date V isits Requested Visits Authorized [id number] Authorized 01/07/2022 01/06/2025 300 300 Encounter Details Date Type Department Care Team (Latest Contact Info) Description 10/04/2023 3:50 PM CDT Anticoagulation Visit Department of Anticoagulation in [place], [place] [address] [place] [address] Soheila Zapata P.A.-C., M.S. 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 Chronic Kidney Disease Or Unspecified Chronic Kidney Disease (HCC); Hyperlipidemia On Treatment; Monitoring For Therapeutic Drug Therapy; Custodial (Current) Anticoagulant Treatment Social History Tobacco Use Types Packs/Day Years Used Date Smoking Tobacco: Never Smokeless Tobacco: Never Alcohol Use Standard Drinks/Week Comments No 0 (1 standard drink = 0.6 oz pur e alcohol) [facility] Utilities Answer Date Recorded In [...] Answer Date Recorded PHQ-2 Score 0 04/27/2023 [facility] - Occupational Stress Questionnaire Answer Date Recorded [...] your living situation today? I have a [facility] place to live 07/01/2023 Education Answer Date Recorded What is the highest level of school you have completed or the highest degree you have received? Associate degree: occupational, technical, or vocational program 05/30/2022 Comments No Sex and Gender Information Value Date Recorded Sex Assigned at Female 12/19/2021 3:32 AM CDT Legal Sex Female 9:57 PM PAYROLL TAX ANALYST Gender Identity Female 09/24/2022 9:59 PM CDT Sexual Orientation Straight 12/19/2021 3: 32 AM CDT documented as of this encounter Patient Instructions * Patient Instructions* Linnette Flores RHowieN. - 10/04/2023 3:50 PM CDT Your next INR will be in 3 days. You will need to call the Anticoagulation Program for warfarin dosing at the scheduled time for your nurse visit, as indicated on your Patient Appointment Guide (PAG). To reschedule your appointment or for questions about your warfarin, please call Primary Care Anticoagulation Program at [phone] from 7:30 am to 4:30 pm. Wednesday-Wednesday [...] if you start any herbal or other lzta-uib-yqkurov product (check with your doctor, a nurse, [...] this encounter Progress Notes * Linnette Flores RHowieN. - 10/04/2023 3:50 PM CDT Warfarin Maintenance [...] in 3 days per consult with Anticoagulation [facility]. Pt is on injectable anticoagulant: No. Plan [...] CDT Appointment Department of Laboratory Medicine in [place], [place] [address] [place] [phone] Patrick Erickson D.O. [address] [address] 12/24/2023 3:50 PM CDT Appointment Department of Laboratory Medicine in [place], [place] [address] [place] [phone] Patrick Erickson D.O. [address] [place] [address] 12/24/2023 4:20 PM CDT Anticoagulation Visit Department of Anticoagulation in [place], [place] [address] [place] [address] Soheila Zapata P.A.-C., M.S. [address] [place] [address] Arrived 12/28/2023 1:00 PM CDT Office Visit Department of Internal Medicine in [place], [place] [address] [place] [address] Patrick Erickson D.O. [address] [address] documented as of this encounter [...] CARLOS ENRIQUE CE Final Result [facility] [address] [place] [address], [facility] FB60 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 [address] [phone] PCP - General Internal Medicine 08/12/22 documented as of this encounter
--- OUTSIDE RECORDS SUMMARY | 2023-12-24 08:46 | XMS_ITS | Encounter Summary ---
Author Organization [facility] Address [address] [place] [address] Care Team Providers Care Advocacy Director Name Role Phone Patrick Erickson D.O. Primary Care Provider +1- [phone] Encounter Details Date Type Department Care Team (Latest Contact Info) Description 10/28/2023 2:50 PM CDT - 10/28/2023 11:59 PM CDT Hospital Encounter Department of Laboratory Medicine in [place] [address] [place] [address] Patrick Erickson D.O. 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 Chronic Kidney Disease Or Unspecified Chronic Kidney Disease (HCC); Hyperlipidemia On Treatment; Atrial Fibrillation Paroxysmal (HCC); Monitoring For Therapeutic Drug Therapy; Penitentiary (Current) Anticoagulant Treatment Discharge Disposition: Home or Self Care Social History Tobacco Use Types Packs/Day Years Used Date Smoking Tobacco: Never Smokeless Tobacco: Never Alcohol Use Standard Drinks/Week Comments No 0 (1 standard drink = 0.6 oz pur e alcohol) [facility] Utilities Answer Date Recorded In the past 12 months has th e electric, gas, oil, or water iCrimefighter threatened to shut off services in your [...] any clubs o r organizations such as jewish groups, unions, fraternal or athletic groups, or [...] Answer Date Recorded PHQ-2 Score 0 04/27/2023 [facility] of Occupat ional Health - Occupational Stress [...] AM CDT Legal Sex Female 9:57 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 120 tablet 3 4 12/06/19 24 documented as of this encounter Plan of Treatment Upcoming Encounters Date Type Department Care Team (Latest Contact Info) Description 12/24/2023 10:10 AM CDT Appointment Department of Laboratory Medicine in [address] [phone] Patrick Erickson D.O. [address] [address] 12/24/2023 3:50 PM CDT Appointment Department of Laboratory Medicine in [place], [place] [address] [facility] [place] [phone] Patrick Erickson D.O. [address] [address] 12/24/2023 4:20 PM CDT Anticoagulation Visit Department of Anticoagulation in [place], [place] [address] [place] [address] Soheila Zapata P.A.-C., M.S. [address] [address] Arrived 12/28/2023 1:00 PM CDT Office Visit Department of Internal Medicine in [place], [place] [address] [address] Patrick Erickson D.O. [address] [address] documented as of this encounter [...] ORDERABLES - CARLOS ENRIQUE CE Final Result [facility] [address] [place] [address], [facility] FB60 [facility] in [place] [address] [place] [address] documented in this encounter Visit Diagnoses Diagnosis [...] Total Score: 9 02/23/20 23 7:41 PM CREDIT CARD INTERVIEWER documented as of this encounter Care Teams Advocacy Director Relationship Specialty Start Date End Date Patrick Erickson D.O. [address] [place] [address] PCP - General Internal Medicine 08/12/22 documented as of this encounter
--- OUTSIDE RECORDS SUMMARY | 2023-12-24 08:46 | XMS_ITS | Encounter Summary ---
Author Organization [facility] Address [address] [place] [address] Care Team Providers Care Lockstitch Waistline Joiner Name Role Phone Patrick Erickson D.O. Primary Care Provider +1- [phone] Reason for Visit * Outpatient (Routine) - Authorized Specialty Diagnoses / Procedures Referred By Prosper t Referred To Contact Anticoagulation Soheila Zapata P.A.-C., M.S. [address] [place] [address] Phone: tel: fax: [facility] Referral ID Status Reason Start Date Expiration Date V isits Requested Visits Authorized [id number] Authorized 01/07/2022 01/06/2025 300 300 Encounter Details Date Type Department Care Team (Latest Contact Info) Description 10/08/2023 9:30 AM CDT Anticoagulation Visit Department of Anticoagulation in [place], [place] [address] [place] [address] Soheila Zapata P.A.-C., M.S. [address] [place] [address] Hypertensive Heart And Chronic Kidney [...] any clubs o r organizations such as uatsdin groups, unions, fraternal or athletic groups, or [...] Date Recorded PHQ-2 Score 0 04/27/2023 [facility] - Occupational Stress Questionnaire Answer [...] your living situation today? I have a [facility] place to live 07/01/2023 Education Answer Date Recorded What is the highest level of school you have completed or the highest degree you have received? 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 Wednesday-Wednesday [...] if you start any herbal or other xleu-wmk-nnmzusd product (check with your doctor, a nurse, [...] CDT Appointment Department of Laboratory Medicine in [place], [place] [address] [place] [phone] Patrick Erickson D.O. [address] [address] 12/24/2023 3:50 PM CDT Appointment Department of Laboratory Medicine in [place], [place] [address] [place] [address] Patrick Erickson D.O. [address] [place] [address] 12/24/2023 4:20 PM CDT Anticoagulation Visit Department of Anticoagulation in [place], [place] [address] [place] [address] Soheila Zapata P.A.-C., M.S. [address] [place] [address] Arrived 12/28/2023 1:00 PM CDT Office Visit Department of Internal Medicine in [place], [place] [address] [place] [address] Patrick Erickson D.O. [address] [address] documented as of this encounter Results * INR Reflex, POCT, Blood (10/15/2023 3:09 PM CDT) INR Reflex, POCT, B 2.3 10/15/2023 3:08 PM CDT FB60 Comment: ----ADDITIONAL INFORMATION---- Standard intensity warfarin therapeutic range: 2.0 to 3.0 ?? High intensity warfarin therapeutic range: 2.5 to 3.5 Blood (Blood, Capillary) 10/15/2023 3:09 PM CDT 10/15/2023 3:08 PM CDT us Patrick Erickson D.O. 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 [address] [phone] PCP - General Internal Medicine 08/12/22 documented as of this encounter
--- OUTSIDE RECORDS SUMMARY | 2023-12-24 08:46 | XMS_ITS | Encounter Summary ---
Author Organization [facility] Address [address] [place] [address] Care Team Providers Care Cd Mixer Helper Name Role Phone Patrick Erickson D.O. Primary Care Provider +1- [phone] Encounter Details Date Type Department Care Team (Latest Contact Info) Description 10/15/2023 2:50 PM CDT - 10/15/2023 11:59 PM CDT Hospital Encounter Department of Laboratory Medicine in [place] [address] [place] [phone] Patrick Erickson D.O. 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 Utilities Answer Date Recorded In the past 12 months has th e electric, gas, oil, or water Sitemasher threatened to shut off services in your [...] any clubs o r organizations such as buddhism groups, unions, fraternal or athletic groups, or [...] Answer Date Recorded PHQ-2 Score 0 04/27/2023 [facility] [place] of Occupat ional Health - Occupational Stress [...] AM CDT Legal Sex Female 9:57 PM DIRECTOR OF INDIVIDUAL GIVING Gender Identity Female 09/24/2022 9:59 PM CDT [...] tablet every day 90 tablet 3 4 grsgjkz-jicp-qdnpj -oreg-capryl 100 mg-150 mg- 50 mg-150 mg [...] Treatment,Atrial Fibrillation Paroxysmal (HCC),Monitoring For Therapeutic Drug Therapy,Vice President Safety (Current) Anticoagulant Treatment Please take as directed [...] CDT Appointment Department of Laboratory Medicine in [address] [phone] Patrick Erickson D.O. [address] [address] 12/24/2023 3:50 PM CDT Appointment Department of Laboratory Medicine in [place], [place] 300 [facility] [place] [phone] Patrick Erickson D.O. [address] [address] 12/24/2023 4:20 PM CDT Anticoagulation Visit Department of Anticoagulation in [place], [place] [address] [place] [address] Soheila Zapata P.A.-C., M.S. [address] [address] Arrived 12/28/2023 1:00 PM CDT Office Visit Department of Internal Medicine in [place], [place] [address] [address] Patrick Erickson D.O. [address] [address] documented as of this [...] - CARLOS ENRIQUE CE Final Result [facility] [address] [place] [address], [facility] FB60 [facility] in [place] [address] [place] [address] documented in this encounter Visit Diagnoses Diagnosis [...] Total Score: 9 02/23/20 23 7:41 PM DIRECTOR OF INDIVIDUAL GIVING documented as of this encounter Care Teams Cd Mixer Helper Relationship Specialty Start Date End Date Patrick Erickson D.O. [address] [place] [address] PCP - General Internal Medicine 08/12/22 documented as of this encounter
--- OUTSIDE RECORDS SUMMARY | 2023-12-24 08:46 | XMS_ITS | Encounter Summary ---
Author Organization [facility] Address [address] [place] [address] Care Team Providers Care Chain Repairer Name Role Phone Patrick Erickson D.O. Primary Care Provider [phone] Encounter Details Date Type Department Care Team (Latest Contact Info) Description 09/24/2023 2:50 PM CDT - 09/24/2023 11:59 PM CDT Hospital Encounter Department of Laboratory Medicine in [place] [address] [place] [phone] Patrick Erickson D.O. [address] [place] [phone] Hypertensive Heart With Heart Failure And Chronic Kidney Disease (CKD) Stage 3a Glomerular Filtration Rate (GFR) 45 To 59 (HCC); Hyperlipidemia On Treatment; Atrial Fibrillation Paroxysmal (HCC); Monitoring For Therapeutic Drug Therapy; [facility] (Current) Anticoagulant Treatment Discharge Disposition: Home or Self Care Social History Tobacco Use Types Packs/Day Years Used Date Smoking Tobacco: Never Smokeless Tobacco: Never Alcohol Use Standard Drinks/Week Comments No 0 (1 standard drink = 0.6 oz pur e alcohol) [facility] Utilities Answer Date Recorded In the past 12 months has th e electric, gas, oil, or water [employer] threatened to shut off services in your [...] Answer Date Recorded PHQ-2 Score 0 04/27/2023 [facility] [place] of Occupat ional Health - Occupational Stress [...] your living situation today? [facility] 07/01/2023 Education Answer Date Recorded What is the highest level of school you have completed or the highest degree you have received? Associate degree: occupational, technical, or vocational program 05/30/2022 Comments No Sex and Gender Information Value Date Recorded Sex Assigned at Female 12/19/2021 3:32 AM CDT Legal Sex Female 9:57 PM CULINARY INSTRUCTOR Gender Identity Female 09/24/2022 9:59 PM [...] tablet every day 90 tablet 3 4 vtegizu-frqq-rmyti -oreg-capryl 100 mg-150 mg- 50 mg-150 mg [...] Treatment,Atrial Fibrillation Paroxysmal (HCC),Monitoring For Therapeutic Drug Therapy,Wood Planer (Current) Anticoagulant Treatment Please take as directed [...] CDT Appointment Department of Laboratory Medicine in [address] [phone] Patrick Erickson D.O. [address] [phone] 12/24/2023 3:50 PM CDT Appointment Department of Laboratory Medicine in [place], [place] [address] [facility] [place] [phone] Patrick Erickson D.O. [address] [phone] 12/24/2023 4:20 PM CDT Anticoagulation Visit Department of Anticoagulation in [place], [place] [address] [place] [address] Soheila Zapata P.A.-C., M.S. [address] [phone] Arrived 12/28/2023 1:00 PM CDT Office Visit Department of Internal Medicine in [place], [place] [address] [address] Patrick Erickson D.O. [address] [phone] documented as of this [...] 3:14 PM CDT 09/24/2023 3:13 PM CDT us Patrick Erickson D.O. LAB POCT ORDERABLES - CARLOS ENRIQUE CE Final Result 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 [address] [address] PCP - General Internal Medicine 08/12/22 documented as of this encounter
--- OUTSIDE RECORDS SUMMARY | 2023-12-24 08:46 | XMS_ITS | Encounter Summary ---
Author Organization [facility] Address [address] [place] [address] Care Team Providers Care Director Of Research Center Name Role Phone Patrick Erickson D.O. Primary Care Provider [phone]- [phone] Reason for Visit * Outpatient (Routine) - Authorized Specialty Diagnoses / Procedures Referred By Prosper t Referred To Contact Anticoagulation Soheila Zapata P.A.-C., M.S. [address] [place] [address] Phone: tel: fax: [facility] Referral ID Status Reason Start Date Expiration Date V isits Requested Visits Authorized [id number] Authorized 01/07/2022 01/06/2025 300 300 Encounter Details Date Type Department Care Team (Latest Contact Info) Description 09/21/2023 1:30 PM CDT Anticoagulation Visit Department of Anticoagulation in [place], [place] [address] [place] [address] Soheila Zapata P.A.-C., M.S. [address] [place] [address] Hypertensive Heart With Heart Failure [...] any clubs o r organizations such as denominational groups, unions, fraternal or athletic groups, or [...] Date Recorded PHQ-2 Score 0 04/27/2023 [facility] [place] [facility] - Occupational Stress Questionnaire Answer Date Recorded [...] AM CDT Legal Sex Female 9:57 PM BOILER ENGINEER Gender Identity Female 09/24/2022 9:59 PM [...] stating consult required. Consulted Anticoagulation [facility] for plan. Currently bridging: no. INR is therapeutic/supratherapeutic. Additional dosing or follow-up information: Next INR in 3 days per consult with Anticoagulation RPh Pt is on injectable anticoagulant: No. Plan [...] CDT Appointment Department of Laboratory Medicine in [place], [place] [address] [place] [phone] Patrick Erickson D.O. [address] [place] [address] 12/24/2023 3:50 PM CDT Appointment Department of Laboratory Medicine in [place], [place] [address] [place] [phone] Patrick Erickson D.O. [address], [place] [address] 12/24/2023 4:20 PM CDT Anticoagulation Visit Department of Anticoagulation in [place], [place] [address] [place] [address] Soheila Zapata P.A.-C., M.S. [address] [address] Arrived 12/28/2023 1:00 PM CDT Office Visit Department of Internal Medicine in [place], [place] [address] [place] [address] Patrick Erickson D.O. 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 [address] [place] [phone] PCP - General Internal Medicine 08/12/22 documented as of this encounter
--- OUTSIDE RECORDS SUMMARY | 2023-12-24 08:47 | XMS_ITS | Clinical Summary ---
Author Organization [employer] [facility] Address [place], [place] [address] Care Team Providers Care Maintenance Team Member Name Role Phone None Primary Care Provider Harvinder Peterson MD Unavailable [phone] Allergies Active Allergy Reactions Criticality Noted Date [...] age 65+ Completed 5, 08/17/2014 Care Teams Maintenance Team Member Relationship Specialty Start Date End Date None . PCP - General 08/01/14 Harvinder Pike MD [facility] [place] [address] 08/01/14
--- OUTSIDE RECORDS SUMMARY | 2023-12-24 08:47 | XMS_ITS | Encounter Summary ---
Author Organization [facility] Address [address] [place] [address] Care Team Providers Care Director Market Research Name Role Phone Patrick Erickson D.O. Primary Care Provider [phone] Encounter Details Date Type Department Care Team (Latest Contact Info) Description 09/14/2023 12:44 PM CDT - 09/14/2023 11:59 PM CDT Hospital Encounter Department of Laboratory Medicine in [place] [address] [place] [phone] Soheila Zapata, PZac-C., M.S. 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 3a Glomerular Filtration Rate (GFR) 45 To 59 (HCC); Hyperlipidemia On Treatment; Atrial Fibrillation Paroxysmal (HCC); Monitoring For Therapeutic Drug Therapy; Health Occupations Teacher (Current) Anticoagulant Treatment Discharge Disposition: Home or Self Care Social History Tobacco Use Types Packs/Day Years Used Date Smoking Tobacco: Never Smokeless Tobacco: Never Alcohol Use Standard Drinks/Week Comments No 0 (1 standard drink = 0.6 oz pur e alcohol) [facility] Utilities Answer Date Recorded In the past 12 months has e [employer], gas, oil, or water [employer] threatened to shut off services in your [...] How often do you attend chur or congregational services? More than 4 times per year [...] PHQ-2 Score 0 04/27/2023 [facility] [place] of Occupat ional Health - Occupational Stress [...] your living situation today? I have a [facility] place to live 07/01/2023 Education Answer Date Recorded What is the highest level of school you have completed or the highest degree you have received? Associate degree: occupational, technical, or vocational program 05/30/2022 Comments No Sex and Gender Information Value Date Recorded Sex Assigned at Female 12/19/2021 3:32 AM CDT Legal Sex Female 9:57 PM TECHNICIAN AUTOMATIC Gender Identity Female 09/24/2022 9:59 PM CDT [...] tablet every day 90 tablet 3 4 beadcep-szvl-rttbh -oreg-capryl 100 mg-150 mg- 50 mg-150 mg [...] Treatment,Atrial Fibrillation Paroxysmal (HCC),Monitoring For Therapeutic Drug Therapy,Health Occupations Teacher (Current) Anticoagulant Treatment Please take as directed by your Anticoagulation Clinic. 120 tablet 3 4 12/06/19 24 documented as of this encounter Plan of Treatment Upcoming Encounters Date Type Department Care Team (Latest Contact Info) Description 12/24/2023 10:10 AM CDT Appointment Department of Laboratory Medicine in [address] [place] [phone] Patrick Erickson D.O. [address] [address] 12/24/2023 3:50 PM CDT Appointment Department of Laboratory Medicine in [place], [place] [address] [place] [phone] Patrick Erickson D.O. [address] [place] [phone] 12/24/2023 4:20 PM CDT Anticoagulation Visit Department of Anticoagulation in [place], [place] [address] [place] [address] Soheila Zapata P.A.-C., M.S. [address] [phone] Arrived 12/28/2023 1:00 PM CDT Office Visit Department of Internal Medicine in [place], [place] [address] [address] Patrick Erickson D.O. [address] [phone] documented as of this encounter [...] 1:00 PM CDT 09/14/2023 12:59 PM CDT us Soheila Zapata P.A.-C. 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 [address] [place] [phone] PCP - General Internal Medicine 08/12/22 documented as of this encounter
--- NOTE | 2023-12-24 09:00 | CRLHL7_ITS ---
For Patients: As a result of the Century Cures Act, medical imaging exams and procedure reports are released immediately into your electronic medical record. You may view this report before your referring provider. If you have questions, please contact your health care provider. EXAM: CT OF THE RIGHT KNEE, WITHOUT CONTRAST CLINICAL INDICATION: Knee pain. Assess for patellar injury. COMPARISON STUDIES: 12/17/2023 radiographs. TECHNICAL: Non-contrast CT of the knee with axial images. Sagittal oblique and coronal oblique reformatted images were created. FINDINGS: OSSEOUS STRUCTURES: General: Osteopenia. Femur: No fracture. Tibia: No fracture. Fibula: No fracture. Patella: No fracture. JOINT SPACE: Knee Joint: No joint effusion, synovitis, loose body or lipohemarthrosis. Medial Compartment: No joint space narrowing, hypertrophic change or subchondral cystic change. Lateral Compartment: No joint space narrowing, hypertrophic change or subchondral cystic change. Patellofemoral Compartment: No joint space narrowing, hypertrophic change or subchondral cystic change. EXTENSOR MECHANISM: Distal Quadriceps Tendon: No tear or tendinopathy. Patellar Tendon: No tear or tendinopathy. Patellar Retinaculum: Normal. Patellar Alignment: Mild lateral patellar subluxation. SOFT TISSUES: Mild subcutaneous edema anterior to the patella and patellar tendon. No hematoma. MUSCLES AND TENDONS: No intramuscular hematoma. No muscle atrophy. NEUROVASCULAR STRUCTURES: No abnormality of the visualized neurovascular structures. IMPRESSION: 1. No patellar fracture is evident. 2. Osteopenia. 3. Mild subcutaneous edema anterior to the patella and patellar tendon. Please note that all CT scans at this facility use dose modulation, iterative reconstruction, and/or weight-based dosing when appropriate to reduce radiation dose to as low as reasonably achievable. Dictated by Sher Weaver MD @ 12/24/2023 9:39:11 AM (Electronically Signed)
== END 2023-12-24 08:39 | disposition home or self-care (01) ==
LOC: CT 08:40
PROVIDERS: PCP Nurse Practitioner; Visit Provider Physician Assistant Surgical
DX: M25.561 Pain in right knee (principal); M85.88 Other specified disorders of bone density and structure, other site; R60.9 Edema, unspecified; S82.001A Unspecified fracture of right patella, initial encounter for closed fracture
CPT/HCPCS: 73700

== ENCOUNTER 2024-06-06 09:00 | Outpatient (RCR) | payer OTHER, SELFPAY ==
--- NOTE | 2023-12-23 11:56 | PT.OPEX ---
PT [place] Outpatient Eval PT [facility] Outpatient Eval Start: 12/23/23 07:24 Freq: Status: Active Protocol: Document 12/23/23 07:24 CYNDIE (Rec: 12/23/23 11:49 CYNDIE [id number]) E-signed By Katheryn Perez PT Physical Therapy Outpatient Evaluation Insurance Information Insurance Name Taylor Nobles Medical Diagnosis S/P L HUMERUS ORIF 12/08/23 Treating Diagnosis LEFT SHOULDER PAIN LEFT SHOULDER WEAKNESS Referring MD HAM Subjective Preferred Name LANG Moise PATIENT REPORTS CATCHING HER THE TOE OF HER SHOE ON THE FLOOR WHILE WORKING AND FALLING LANDING ON HER RIGHT KNEE AND SHOULDER. SHE SUSTAINED A FRACTURE TO HER LEFT HUMERUS REQUIRING AN ORIF AND IS SCHEDULED FOR A CT SCAN FOR HER RIGHT KNEE. SHE IS HAVING DIFFICULTY RISING FROM A SEATED POSITION D/T HER RIGHT KNEE AND UNABLE TO BRACE IT D/T THE RESTRICTED NATURE LIMITING HER ABILITY TO RISE UP. SHE IS HER S/P LEFT HUMERAL ORIF 12/08/23 AND WEARING HER SLING APPROPRIATELY. SHE REPORTS MIN PAIN AND STATES, I AM GETTING AROUND PRETTY WELL. I AM USED TO ADAPTING THINGS B/C I'VE BEEN CARING FOR MY FOR THE BETTER PART OF 15 YEARS (PLUS) AFTER HE HAD A STROKE. PATIENT LIVES A [facility] WHERE HER SPOUSE REQUIRES ASSISTANCE WITH ADL'S , AMB AND TRANSFERS. SHE HAD BEEN THE PRIMARY CAREGIVER BUT NOW RELIES ON THE STAFF AT THE [facility]. 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 PATIENT IS WEARING HER SLING APPROPRIATELY AND REPORTS MIN PAIN AT REST. 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 INTERVENTION IS NECESSARY BY WAY OF THERAPEUTIC EXERCISES, MANUAL THERAPY, NEUROMUSCULAR EDUCATION, AND STABILIZATION/ PROPRIOCEPTION. PLEASE REFER TO APPROPRIATE SECTION WITHIN THIS EVALUATION FOR COMPLETE LIST OF GOALS AND PLAN OF CARE . DISCHARGE PLAN AND CRITERIA IS FOR PATIENT TO ACHIEVE THE GOALS LISTED BELOW OR UNTIL MAX POTENTIAL MET. PATIENT VERBALIZED UNDERSTANDING AND AGREEABLE TO POC, FREQ, AND GOALS ESTABLISHED. 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 DECREASE PAIN TO </3/10 WITH DAILY ACTIVITIES AND WITH PROGRESSION OF PHYSICAL THERAPY OVER THE NEXT 6-8 WEEKS. 2. IMPROVE R SHOULDER PROM TO WFL WITHIN 4-6 WEEKS TO PREPARE FOR RETURN TO FUNCTIONAL USE. 3. IMPROVE AROM TO WFL TO RETURN TO FUNCTIONAL USE OF RIGHT SHOULDER FOR DAILY ACTIVITIES/WORK/RECREATIONAL ACTIVITIES IN THE NEXT 8-12 WEEKS. 4. IMPROVE R SHOULDER STRENGTH TO WFL IN THE NEXT 10-16 WEEKS FOR RETURN TO FULL FUNCTIONAL USE OF RIGHT SHOULDER/UE FOR DAILY ACTIVITIES/ WORK/RECREATIONAL ACTIVITIES. 5. PATIENT WILL DEMONSTRATE INDEPENDENCE WITH HIS HEP WITHIN 12-16 WEEKS FOR PROGRESSION OF THE ABOVE GOALS , ONGOING SELF MGMT OF ANY SYMPTOMS, ONGOING PROGRESS/ IMPROVEMENTS IN ROM/STRENGTH/ FUNCTION FOR RETURN TO FULL FUNCTIONAL USE OF RUE Coordination/Communication With Referral Source Treatment Plan/Direct Interventions Heat,Ice/Cold/Vasopneumatic, Joint Mobilization,Manual Therapy,Neuromuscular Re-ed, Orthotics/Braces,Self-Care/ Home Management,Therapeutic Activities,Therapeutic Exercises,Ultrasound Frequency/Duration 1-2X/WK Patient Will Be Discharged From Therapy Completion of LTG(s), Independently Progressing Evaluation Billing Untimed Code Treatment Minutes 20 PT Eval No Charge No Complexity Moderate Certification Information Provider Signature Required Communication Only-No Signature Required
--- OUTSIDE RECORDS SUMMARY | 2024-03-09 08:32 | XMS_ITS | Clinical Summary ---
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 0 3 Active carvediloL (COREG) 12.5 mg tablet Take 0.5 Tablets (6.25 mg) by mouth two times daily with meals. 0 3 Active cholecalciferol (Vitamin D) 1,000 unit capsule Take 1 Capsule (1,000 units) by mouth once daily. 0 3 Active cyanocobalamin (Vitamin B-12) 1,000 mcg tablet Take 1 Tablet (1,000 mcg) by mouth once daily. 90 Tablet 3 3 Active furosemide (LASIX) 20 mg tablet Take 1 Tablet (20 mg) by mouth once every other day. 0 3 Active gabapentin (NEURONTIN) 300 mg capsule Take 1 Capsule (300 mg) by mouth 3 times daily if needed. 0 3 Active ibuprofen (ADVIL; MOTRIN) 200 mg tablet Take 1-2 Tablets (200-400 mg) by mouth every 6 hours if needed. 0 3 Active lisinopriL (PRINIVIL; ZESTRIL) 40 mg tablet Take 1 Tablet (40 mg) by mouth once daily. 90 Tablet 3 3 Active triamcinolone 0.1% TOPICAL (KENALOG) 0.1 % lotion Apply topically to affected area(s) two times daily. prn 60 mL 3 Active warfarin (COUMADIN) 5 mg tablet Take 1 Tablet (5 mg) by mouth once daily. Take as instructed by nursing staff after INR monitoring. 0 3 Active medication order composer Apply topically to affected area(s). 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 Gender Identity Not on file Sexual Orientation Not on file Obstetrics History Last Filed Vital Signs Vital Sign Reading Time Taken Comments Blood Pressure 136/86 08/18/2022 11:41 AM CDT Pulse 60 08/18/2022 12:12 PM CDT Temperature 36.9 C (98.4 F) 08/01/2014 5:45 PM CDT Respiratory Rate 24 08/01/2014 5:45 PM CDT [...] 1-dose 75+ series) 2021 COVID-19 vaccine series (2023- season) 2023 01/14/2022, 02/01/2021, 04/22/2020, Additional history exists Influenza for age 65+ 11/07/2023 12/23/2020 , 12/14/2014, 01/20/2007 Tetanus booster 08/17/2024 08/17/2014 Tdap Completed 08/17/2014 Pneumococcal series for age 50+ Completed 5, 08/17/2014 Insurance [employer] CHOICE PPO MR HU[employer] CHOICE PPO MR Care Teams Chicken And Fish Butcher Relationship Specialty Start Date End Date None . PCP - General 08/01/14 Harvinder Pike MD [address] [place] [address] 08/01/14
--- OUTSIDE RECORDS SUMMARY | 2024-03-09 08:34 | XMS_ITS | Continuity of Care Document ---
Author Organization [facility] Address [address] [place] [address] Care Team Providers Care Bottom Scrubber Name Role Phone Patrick Erickson D.O. Primary Care Provider [phone] Source Comments Patient records contain information from all sites at [facility]. For routine questions regarding patient records, call [phone] during business hours, M-F 8:00 AM - 5:00 PM Central Time. Record requests for emergency care only can be directed to [phone] at any time.[facility] Encounters Date Type Department Care Team Description 03/03/2024 8:40 AM STORE FACILITY TECHNICIAN Anticoagulation Visit Department of Anticoagulation in [place], [place] [address] [place] [address] Patrick Erickson D.O. 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 Atrial Fibrillation Paroxysmal (HCC); Monitoring For Therapeutic Drug Therapy; Police Manager (Current) Anticoagulant Treatment Discharge Disposition: Home or Self Care 02/28/2024 Clinical Communication Department of Internal Medicine in [place], [place] [address] [address] Patrick Erickson D.O. Med Question 02/28/2024 3:45 PM STORE FACILITY TECHNICIAN Nurse Only Department of Family Medicine, [facility], in [place], [place] [address] [place] [phone] Patrick Erickson D.O. Deflieger, Maria P, L.P.N. Nurse Visit (hypertension) 02/24/2024 10:10 AM STORE FACILITY TECHNICIAN Anticoagulation Visit Department of Anticoagulation in [place], [place] [address] [place] [phone] Patrick Erickson D.O. 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 Atrial Fibrillation Paroxysmal (HCC); Monitoring For Therapeutic Drug Therapy; Correction (Current) Anticoagulant Treatment Discharge Disposition: Home or Self Care 02/22/2024 Clinical Communication Department of Internal Medicine in [place], [place] [address] [address] Patrick Erickson D.O. Med Question 02/18/2024 11:30 AM STORE FACILITY TECHNICIAN Anticoagulation Visit Department of Anticoagulation in [place], [place] [address] [place] [phone] Patrick Erickson D.O. 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 Med Refill 02/14/2024 Clinical Communication Department of Internal Medicine in [address] [address] Patrick Erickson D.O. 02/14/2024 4:20 PM STORE FACILITY TECHNICIAN Office Visit Department of Internal Medicine in [address] [phone] Patrick Erickson D.O. 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 Med Refill 01/31/2024 11:30 AM STORE FACILITY TECHNICIAN Anticoagulation Visit Department of Anticoagulation in [place], [place] [address] [place] [address] Patrick Erickson D.O. 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 Hypertensive Heart And Chronic Kidney Disease With Heart Failure And Stage 1 To 4 Chronic Kidney Disease Or Unspecified Chronic Kidney Disease (HCC); Hyperlipidemia On Treatment; Atrial Fibrillation Paroxysmal (HCC); Monitoring For Therapeutic Drug Therapy; Correction (Current) Anticoagulant Treatment Discharge Disposition: Home or Self Care 01/27/2024 8:40 AM STORE FACILITY TECHNICIAN Anticoagulation Visit Department of Anticoagulation in [place], [place] [address] [place] [address] Patrick Erickson D.O. 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 Communication 01/13/2024 7:44 AM STORE FACILITY TECHNICIAN - 01/13/2024 11:59 PM STORE FACILITY TECHNICIAN Hospital Encounter Department of Laboratory Medicine in [address] [address] Patrick Erickson D.O. 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 Blood Pressure 01/11/2024 3:45 PM STORE FACILITY TECHNICIAN Nurse Only Department of Family Medicine, [facility], in [place], [place] [address] [place] [address] Patrick Erickson D.O. Davis, Connor R, L.P.N. Blood Pressure Check 01/06/2024 7:50 AM CDT - 01/06/2024 11:59 PM CDT Hospital Encounter Department of Laboratory Medicine in [place], [place] [address] [place] [address] Patrick Erickson D.O. 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 Ebeling, Paul W, RMoraima. Annual Medicare Examination Return (Primary Dx) 12/28/2023 2:29 PM CDT - 12/28/2023 11:59 PM CDT Hospital Encounter Department of Laboratory Medicine in [address] [address] Patrick Erickson D.O. 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 Hypertensive Heart And Chronic Kidney Disease With Heart Failure And Stage 1 To 4 Chronic Kidney Disease Or Unspecified Chronic Kidney Disease (HCC) Discharge Disposition: Home or Self Care 12/20/2023 4:20 PM CDT Anticoagulation Visit Department of Anticoagulation in [place], [place] [address] [place] [phone] Soheila Zapata P.A.-C., M.S. Atrial Fibrillation Paroxysmal (HCC) (Primary Dx); Hypertensive Heart And Chronic Kidney Disease With Heart Failure And Stage 1 To 4 Chronic Kidney Disease Or Unspecified Chronic Kidney Disease (HCC); Hyperlipidemia On Treatment; Monitoring For Therapeutic Drug Therapy; Correction (Current) Anticoagulant Treatment 12/20/2023 3:50 PM CDT - 12/20/2023 11:59 PM CDT Hospital Encounter Department of Laboratory Medicine in [address] [address] Patrick Erickson D.O. 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 Anticoagulation (DOAC) 12/15/2023 4:49 PM CDT - 12/15/2023 11:59 PM CDT Hospital Encounter Department of Laboratory Medicine in [address] [address] Patrick Erickson D.O. Atrial Fibrillation Paroxysmal (HCC) Discharge Disposition: Home or Self Care 12/14/2023 11:30 AM CDT Anticoagulation Visit Department of Anticoagulation in [place], [place] [address] [place] [address] Soheila Zapata P.A.-C., M.S. 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 Atrial Fibrillation Paroxysmal (HCC) Discharge Disposition: Home or Self Care 12/10/2023 Refill Department of Internal Medicine in [address] [address] Patrick Erickson D.OHowie Med Refill 12/06/2023 Clinical Communication Department of Anticoagulation in [place], [place] [address] [place] [address] Isa Callahan, R.N. Anticoagulation (INR - ordered by provider ) 12/06/2023 Clinical Communication Department of Cardiovascular Diseases in [address] [address] Roberto Dumont, BALTAZAR, C.N.P. Med Question 12/03/2023 2:50 PM CDT - 12/03/2023 11:59 PM CDT Hospital Encounter Department of Laboratory Medicine in [address] [address] Patrick Erickson D.O. 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 Arm Injury; Post Ed Visit Follow-up 11/29/2023 Clinical Communication Department of Family Medicine, [facility] in [address] [address] Butch Sanchez R.N. COVID Treatment Review 11/27/2023 Nurse Triage Department of Internal Medicine in [place], [place] [address] [address] Kari Olivarez R.N. Cough 11/22/2023 4:00 PM CDT Anticoagulation Visit Department of Anticoagulation in [place], [place] [address] [place] [phone] Soheila Zapata P.A.-C., M.S. 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 Atrial Fibrillation Paroxysmal (HCC); Monitoring For Therapeutic Drug Therapy; Correction (Current) Anticoagulant Treatment Discharge Disposition: Home or Self Care 11/12/2023 12:30 PM CDT Anticoagulation Visit Department of Anticoagulation in [place], [place] [address] [place] [phone] Soheila Zapata P.A.-Darryl, M.S. 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 11/02/2023 Clinical Communication Department of Anticoagulation in [place], [place] [address] [place] [phone] Cullen Guillen R.N. Anticoagulation ([facility] Update-New PCP) 11/02/2023 3:30 PM CDT Anticoagulation Visit Department of Anticoagulation in [place], [place] [address] [place] [phone] Soheila Zapata P.A.-C., M.S. 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 Hypertensive Heart And Chronic Kidney Disease With Heart Failure And Stage 1 To 4 Chronic Kidney Disease Or Unspecified Chronic Kidney Disease (HCC); Hyperlipidemia On Treatment; Atrial Fibrillation Paroxysmal (HCC); Monitoring For Therapeutic Drug Therapy; Police Manager (Current) Anticoagulant Treatment Discharge Disposition: Home or Self Care 10/28/2023 3:30 PM CDT Anticoagulation Visit Department of Anticoagulation in [place], [place] [address] [place] [phone] Soheila Zapata P.A.-C., M.S. 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 Hypertensive Heart And Chronic Kidney Disease With Heart Failure And Stage 1 To 4 Chronic Kidney Disease Or Unspecified Chronic Kidney Disease (HCC); Hyperlipidemia On Treatment; Atrial Fibrillation Paroxysmal (HCC); Monitoring For Therapeutic Drug Therapy; Police Manager (Current) Anticoagulant Treatment Discharge Disposition: Home or Self Care 10/08/2023 9:30 AM CDT Anticoagulation Visit Department of Anticoagulation in [place], [place] [address] [place] [address] Soheila Zapata P.A.-C., M.S. 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 Atrial Fibrillation Paroxysmal (HCC) Discharge Disposition: Home or Self Care 10/04/2023 3:50 PM CDT Anticoagulation Visit Department of Anticoagulation in [place], [place] [address] [place] [address] Soheila Zapata P.A.-C., M.S. Atrial Fibrillation Paroxysmal (HCC) (Primary Dx); Hypertensive Heart And Chronic Kidney Disease With Heart Failure And Stage 1 To 4 Chronic Kidney Disease Or Unspecified Chronic Kidney Disease (HCC); Hyperlipidemia On Treatment; Monitoring For Therapeutic Drug Therapy; Correction (Current) Anticoagulant Treatment 10/01/2023 Clinical Communication Department of Anticoagulation in [place], [place] [address] [place] [address] La Mendoza R.N. Anticoagulation (Out of range INR.) 10/01/2023 2:30 PM CDT - 10/01/2023 11:59 PM CDT Hospital Encounter Department of Laboratory Medicine in [place], [place] [address] [place] [address] Hellweg, Patrick J, D.O. Hypertensive Heart With Heart Failure And Chronic Kidney Disease (CKD) Stage 3a Glomerular Filtration Rate (GFR) 45 To 59 (HCC); Hyperlipidemia On Treatment; Atrial Fibrillation Paroxysmal (HCC); Monitoring For Therapeutic Drug Therapy; Police Manager (Current) Anticoagulant Treatment Discharge Disposition: Home or Self Care 09/24/2023 3:30 PM CDT Anticoagulation Visit Department of Anticoagulation in [place], [place] [address] [place] [phone] Soheila Zapata P.A.-C., M.S. Hypertensive Heart With Heart Failure And Chronic Kidney Disease (CKD) Stage 3a Glomerular Filtration Rate (GFR) 45 To 59 (HCC) (Primary Dx); Hyperlipidemia On Treatment; Atrial Fibrillation Paroxysmal (HCC); Monitoring For Therapeutic Drug Therapy; Correction (Current) Anticoagulant Treatment 09/24/2023 2:50 PM CDT - 09/24/2023 11:59 PM CDT Hospital Encounter Department of Laboratory Medicine in [address] [phone] Patrick Erickson D.O. 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 Hypertensive Heart With Heart Failure And Chronic Kidney Disease (CKD) Stage 3a Glomerular Filtration Rate (GFR) 45 To 59 (HCC) (Primary Dx); Hyperlipidemia On Treatment; Atrial Fibrillation Paroxysmal (HCC); Monitoring For Therapeutic Drug Therapy; Correction (Current) Anticoagulant Treatment 09/21/2023 11:55 AM CDT - 09/21/2023 11:59 PM CDT Hospital Encounter Department of Laboratory Medicine in [address] [phone] Patrick Erickson D.O. Hypertensive Heart With Heart Failure And Chronic Kidney Disease (CKD) Stage 3a Glomerular Filtration Rate (GFR) 45 To 59 (HCC); Hyperlipidemia On Treatment; Atrial Fibrillation Paroxysmal (HCC); Monitoring For Therapeutic Drug Therapy; Police Manager (Current) Anticoagulant Treatment Discharge Disposition: Home or Self Care 09/14/2023 1:30 PM CDT Anticoagulation Visit Department of Anticoagulation in [address] [phone] Soheila Zapata P.A.-C., M.S. Atrial Fibrillation Paroxysmal (HCC) (Primary Dx); Hypertensive Heart With Heart Failure And Chronic Kidney Disease (CKD) Stage 3a Glomerular Filtration Rate (GFR) 45 To 59 (HCC); Hyperlipidemia On Treatment; Monitoring For Therapeutic Drug Therapy; Correction (Current) Anticoagulant Treatment 09/14/2023 12:44 PM CDT - 09/14/2023 11:59 PM CDT Hospital Encounter Department of Laboratory Medicine in [address] [phone] Soheila Zapata P.A.-C., M.S. Hypertensive Heart With Heart Failure And Chronic Kidney Disease (CKD) Stage 3a Glomerular Filtration Rate (GFR) 45 To 59 (HCC); Hyperlipidemia On Treatment; Atrial Fibrillation Paroxysmal (HCC); Monitoring For Therapeutic Drug Therapy; Police Manager (Current) Anticoagulant Treatment Discharge Disposition: Home or Self Care 09/08/2023 4:00 PM CDT Anticoagulation Visit Department of Anticoagulation in [address] [address] Soheila Zapata P.A.-C., M.S. Hypertensive Heart With Heart Failure And Chronic Kidney Disease (CKD) Stage 3a Glomerular Filtration Rate (GFR) 45 To 59 (HCC) (Primary Dx); Hyperlipidemia On Treatment; Atrial Fibrillation Paroxysmal (HCC); Monitoring For Therapeutic Drug Therapy; Correction (Current) Anticoagulant Treatment 09/08/2023 3:20 PM CDT - 09/08/2023 11:59 PM CDT Hospital Encounter Department of Laboratory Medicine in [address] [phone] Patrick Erickson D.O. Hypertensive Heart With Heart Failure And Chronic Kidney Disease (CKD) Stage 3a Glomerular Filtration Rate (GFR) 45 To 59 (HCC); Hyperlipidemia On Treatment; Atrial Fibrillation Paroxysmal (HCC); Monitoring For Therapeutic Drug Therapy; Correction (Current) Anticoagulant Treatment Discharge Disposition: Home or Self Care 09/02/2023 4:00 PM CDT Anticoagulation Visit Department of Anticoagulation in [address] [address] Soheila Zapata P.A.-Ashish., M.S. Atrial Fibrillation Paroxysmal (HCC) (Primary Dx); Hypertensive Heart With Heart Failure And Chronic Kidney Disease (CKD) Stage 3a Glomerular Filtration Rate (GFR) 45 To 59 (HCC); Hyperlipidemia On Treatment; Monitoring For Therapeutic Drug Therapy; Police Manager (Current) Anticoagulant Treatment 09/02/2023 3:01 PM CDT - 09/02/2023 11:59 PM CDT Hospital Encounter Department of Laboratory Medicine in [address] [address] Patrick Erickson D.O. Hypertensive Heart With Heart Failure And Chronic Kidney Disease (CKD) Stage 3a Glomerular Filtration Rate (GFR) 45 To 59 (HCC); Hyperlipidemia On Treatment; Atrial Fibrillation Paroxysmal (HCC); Monitoring For Therapeutic Drug Therapy; Police Manager (Current) Anticoagulant Treatment Discharge Disposition: Home or Self Care 08/27/2023 2:30 PM CDT Anticoagulation Visit Department of Anticoagulation in [address] [phone] Soheila Zapata P.A.-C., M.S. Hypertensive Heart With Heart Failure And Chronic Kidney Disease (CKD) Stage 3a Glomerular Filtration Rate (GFR) 45 To 59 (HCC) (Primary Dx); Hyperlipidemia On Treatment; Atrial Fibrillation Paroxysmal (HCC); Monitoring For Therapeutic Drug Therapy; Correction (Current) Anticoagulant Treatment 08/27/2023 1:50 PM CDT - 08/27/2023 11:59 PM CDT Hospital Encounter Department of Laboratory Medicine in [address] [phone] Patrick Erickson D.O. Hypertensive Heart With Heart Failure And Chronic Kidney Disease (CKD) Stage 3a Glomerular Filtration Rate (GFR) 45 To 59 (HCC); Hyperlipidemia On Treatment; Atrial Fibrillation Paroxysmal (HCC); Monitoring For Therapeutic Drug Therapy; Correction (Current) Anticoagulant Treatment Discharge Disposition: Home or Self Care 08/24/2023 10:30 AM CDT Anticoagulation Visit Department of Anticoagulation in [place], [place] [address] [place] [phone] Soheila Zapata P.A.-Ashish., M.S. Hypertensive Heart With Heart Failure And Chronic Kidney Disease (CKD) Stage 3a Glomerular Filtration Rate (GFR) 45 To 59 (HCC) (Primary Dx); Hyperlipidemia On Treatment; Atrial Fibrillation Paroxysmal (HCC); Monitoring For Therapeutic Drug Therapy; Correction (Current) Anticoagulant Treatment 08/24/2023 9:46 AM CDT - 08/24/2023 11:59 PM CDT Hospital Encounter Department of Laboratory Medicine in [address] [phone] Patrick Erickson D.O. Hypertensive Heart With Heart Failure And Chronic Kidney Disease (CKD) Stage 3a Glomerular Filtration Rate (GFR) 45 To 59 (HCC); Hyperlipidemia On Treatment; Atrial Fibrillation Paroxysmal (HCC); Monitoring For Therapeutic Drug Therapy; Police Manager (Current) Anticoagulant Treatment Discharge Disposition: Home or Self Care 08/17/2023 3:50 PM CDT Anticoagulation Visit Department of Anticoagulation in [place], [place] [address] [place] [phone] Soheila Zapata P.A.-Ashish., M.S. Hypertensive Heart With Heart Failure And Chronic Kidney Disease (CKD) Stage 3a Glomerular Filtration Rate (GFR) 45 To 59 (HCC) (Primary Dx); Hyperlipidemia On Treatment; Atrial Fibrillation Paroxysmal (HCC); Monitoring For Therapeutic Drug Therapy; Correction (Current) Anticoagulant Treatment 08/16/2023 Clinical Communication Department of Anticoagulation in [place], [place] [address] [place] [phone] Kina Montgomery R.N. Anticoagulation (INR OOR) 08/16/2023 1:24 PM CDT - 08/16/2023 11:59 PM CDT Hospital Encounter Department of Laboratory Medicine in [address] [address] Patrick Erickson D.O. Hypertensive Heart With Heart Failure And Chronic Kidney Disease (CKD) Stage 3a Glomerular Filtration Rate (GFR) 45 To 59 (HCC); Hyperlipidemia On Treatment; Atrial Fibrillation Paroxysmal (HCC); Monitoring For Therapeutic Drug Therapy; Correction (Current) Anticoagulant Treatment Discharge Disposition: Home or Self Care 08/13/2023 Clinical Communication Department of Anticoagulation in [place], [place] [address] [place] [address] Mariam Garland Anticoagulation (Lack of Engagement) 08/06/2023 9:50 AM CDT Anticoagulation Visit Department of Anticoagulation in [place], [place] [address] [place] [address] Soheila Zapata P.A.-C., M.S. Hypertensive Heart With Heart Failure And Chronic Kidney Disease (CKD) Stage 3a Glomerular Filtration Rate (GFR) 45 To 59 (HCC) (Primary Dx); Hyperlipidemia On Treatment; Atrial Fibrillation Paroxysmal (HCC); Monitoring For Therapeutic Drug Therapy; Correction (Current) Anticoagulant Treatment 08/05/2023 Clinical Communication Department of Anticoagulation in [place], [place] [address] [place] [address] Isa Callahan, R.N. Anticoagulation (Unable to reach ) 08/05/2023 2:36 PM CDT - 08/05/2023 11:59 PM CDT Hospital Encounter Department of Laboratory Medicine in [place], [place] [address] [address] Patrick Erickson D.O. Hypertensive Heart With Heart Failure And Chronic Kidney Disease (CKD) Stage 3a Glomerular Filtration Rate (GFR) 45 To 59 (HCC); Hyperlipidemia On Treatment; Atrial Fibrillation Paroxysmal (HCC); Monitoring For Therapeutic Drug Therapy; Police Manager (Current) Anticoagulant Treatment Discharge Disposition: Home or Self Care 07/06/2023 8:39 AM CDT - 07/06/2023 11:59 PM CDT Hospital Encounter Department of Laboratory Medicine in [place], [place] [address] [place] [address] Patrick Erickson D.O. Atrial Fibrillation Paroxysmal (HCC); Hypertensive Heart With Heart Failure And Chronic Kidney Disease (CKD) Stage 3a Glomerular Filtration Rate (GFR) 45 To 59 (HCC); Screening Examination Diabetes Mellitus; Hyperlipidemia On Treatment Discharge Disposition: Home or Self Care 07/06/2023 9:00 AM CDT Anticoagulation Visit Department of Anticoagulation in [place], [place] [address] [place] [phone] Soheila Zapata P.A.-C., M.S. Hypertensive Heart With Heart Failure And Chronic Kidney Disease (CKD) Stage 3a Glomerular Filtration Rate (GFR) 45 To 59 (HCC) (Primary Dx); Hyperlipidemia On Treatment; Atrial Fibrillation Paroxysmal (HCC); Monitoring For Therapeutic Drug Therapy; Correction (Current) Anticoagulant Treatment 07/06/2023 8:17 AM CDT - 07/06/2023 8:38 AM CDT Hospital Encounter Department of Laboratory Medicine in [address] [phone] Patrick Erickson D.O. Atrial Fibrillation Paroxysmal (HCC); Hypertensive Heart With Heart Failure And Chronic Kidney Disease (CKD) Stage 3a Glomerular Filtration Rate (GFR) 45 To 59 (HCC); Hyperlipidemia On Treatment; Monitoring For Therapeutic Drug Therapy; Police Manager (Current) Anticoagulant Treatment Discharge Disposition: Home or Self Care 07/02/2023 Clinical Communication Department of Internal Medicine in [place], [place] [address] [phone] Patrick Erickson D.O. 07/02/2023 10:15 AM CDT Nurse Only Department of Family Medicine, [facility], in [address] [address] Patrick Erickson D.O. McHugh, Wendy A, LHowieP.NHowie Nurse Visit (BP check ) 06/24/2023 8:00 AM CDT Anticoagulation Visit Department of Anticoagulation in [place], [place] [address] [place] [address] Patrick Erickson D.O. Hypertensive Heart With Heart Failure And Chronic Kidney Disease (CKD) Stage 3a Glomerular Filtration Rate (GFR) 45 To 59 (HCC) (Primary Dx); Atrial Fibrillation Paroxysmal (HCC); Hyperlipidemia On Treatment; Monitoring For Therapeutic Drug Therapy; Police Manager (Current) Anticoagulant Treatment 06/23/2023 Refill Department of Cardiovascular Diseases in [address] [address] Roberto Dumont APRN, C.N.P. Med Refill 06/22/2023 Clinical Communication Department of Anticoagulation in [address] [phone] Grace Oneill R.N. Anticoagulation (Unable to Reach) 06/22/2023 9:58 AM CDT - 06/22/2023 11:59 PM CDT Hospital Encounter Department of Laboratory Medicine in [address] [phone] Soheila Zapata P.A.-C., M.S. Hypertensive Heart With Heart Failure And Chronic Kidney Disease (CKD) Stage 3a Glomerular Filtration Rate (GFR) 45 To 59 (HCC); Hyperlipidemia On Treatment; Atrial Fibrillation Paroxysmal (HCC); Monitoring For Therapeutic Drug Therapy; Police Manager (Current) Anticoagulant Treatment Discharge Disposition: Home or Self Care 06/22/2023 9:57 AM CDT Hospital Encounter Department of Laboratory Medicine in [address] [address] Roberto Dumont APRN, C.N.P. Atrial Fibrillation Unspecified (HCC) Discharge Disposition: Home or Self Care 06/22/2023 1:00 PM CDT Office Visit Department of Internal Medicine in [address] [address] Patrick Erickson D.O. Atrial Fibrillation Paroxysmal (HCC) (Primary Dx); Police Manager (Current) Anticoagulant Treatment; Monitoring For Therapeutic Drug Therapy; Hypertensive Heart With Heart Failure And Chronic Kidney Disease (CKD) Stage 3a Glomerular Filtration Rate (GFR) 45 To 59 (HCC); Hyperlipidemia On Treatment; Screening Examination Diabetes Mellitus 06/18/2023 Clinical Communication Department of Anticoagulation in [address] [address] Sandra De Oliveira Anticoagulation (Unable to reach) 06/03/2023 12:50 PM CDT - 06/03/2023 11:59 PM CDT Hospital Encounter Department of Laboratory Medicine in [address] [phone] Patrick Erickson D.O. Hypertensive Heart With Heart Failure And Chronic Kidney Disease (CKD) Stage 3a Glomerular Filtration Rate (GFR) 45 To 59 (HCC); Hyperlipidemia On Treatment; Atrial Fibrillation Paroxysmal (HCC); Monitoring For Therapeutic Drug Therapy; Correction (Current) Anticoagulant Treatment Discharge Disposition: Home or Self Care 06/03/2023 1:30 PM CDT Anticoagulation Visit Department of Anticoagulation in [place], [place] [address] [place] [phone] Soheila Zapata P.Genie.-C., M.S. Hypertensive Heart With Heart Failure And Chronic Kidney Disease (CKD) Stage 3a Glomerular Filtration Rate (GFR) 45 To 59 (HCC) (Primary Dx); Hyperlipidemia On Treatment; Atrial Fibrillation Paroxysmal (HCC); Monitoring For Therapeutic Drug Therapy; Correction (Current) Anticoagulant Treatment 05/27/2023 11:10 AM CDT Anticoagulation Visit Department of Anticoagulation in [place], [place] [address] [place] [phone] Soheila Zapata P.Genie.-C., M.S. Hypertensive Heart With Heart Failure And Chronic Kidney Disease (CKD) Stage 3a Glomerular Filtration Rate (GFR) 45 To 59 (HCC) (Primary Dx); Hyperlipidemia On Treatment; Atrial Fibrillation Paroxysmal (HCC); Monitoring For Therapeutic Drug Therapy; Correction (Current) Anticoagulant Treatment 05/27/2023 10:20 AM CDT - 05/27/2023 11:59 PM CDT Hospital Encounter Department of Laboratory Medicine in [address] [phone] Patrick Erickson D.O. Hypertensive Heart With Heart Failure And Chronic Kidney Disease (CKD) Stage 3a Glomerular Filtration Rate (GFR) 45 To 59 (HCC); Hyperlipidemia On Treatment; Atrial Fibrillation Paroxysmal (HCC); Monitoring For Therapeutic Drug Therapy; Police Manager (Current) Anticoagulant Treatment Discharge Disposition: Home or Self Care 05/21/2023 2:40 PM CDT - 05/21/2023 11:59 PM CDT Hospital Encounter Department of Laboratory Medicine in [address] [address] Patrick Erickson D.O. Atrial Fibrillation Paroxysmal (HCC) Discharge Disposition: Home or Self Care 05/21/2023 3:20 PM CDT Anticoagulation Visit Department of Anticoagulation in [address] [address] Soheila Zapata P.A.-C., M.S. Hypertensive Heart With Heart Failure And Chronic Kidney Disease (CKD) Stage 3a Glomerular Filtration Rate (GFR) 45 To 59 (HCC) (Primary Dx); Hyperlipidemia On Treatment; Atrial Fibrillation Paroxysmal (HCC); Monitoring For Therapeutic Drug Therapy; Correction (Current) Anticoagulant Treatment 05/11/2023 Orders Only [facility] Patrick Erickson D.O. 05/07/2023 12:25 PM STORE FACILITY TECHNICIAN - 05/07/2023 11:59 PM STORE FACILITY TECHNICIAN Hospital Encounter Department of Laboratory Medicine in [address] [phone] Patrick Erickson D.O. Hypertensive Heart With Heart Failure And Chronic Kidney Disease (CKD) Stage 3a Glomerular Filtration Rate (GFR) 45 To 59 (HCC); Hyperlipidemia On Treatment; Atrial Fibrillation Paroxysmal (HCC); Monitoring For Therapeutic Drug Therapy; Police Manager (Current) Anticoagulant Treatment Discharge Disposition: Home or Self Care 05/07/2023 1:50 PM STORE FACILITY TECHNICIAN Anticoagulation Visit Department of Anticoagulation in [place], [place] [address] [place] [phone] Soheila Zapata P.A.-Ashish., M.S. Atrial Fibrillation Paroxysmal (HCC) (Primary Dx); Hypertensive Heart With Heart Failure And Chronic Kidney Disease (CKD) Stage 3a Glomerular Filtration Rate (GFR) 45 To 59 (HCC); Hyperlipidemia On Treatment; Monitoring For Therapeutic Drug Therapy; Police Manager (Current) Anticoagulant Treatment 04/30/2023 1:30 PM STORE FACILITY TECHNICIAN Anticoagulation Visit Department of Anticoagulation in [place], [place] [address] [place] [address] Soheila Zapata P.A.-C., M.S. Hypertensive Heart With Heart Failure And Chronic Kidney Disease (CKD) Stage 3a Glomerular Filtration Rate (GFR) 45 To 59 (HCC) (Primary Dx); Hyperlipidemia On Treatment; Atrial Fibrillation Paroxysmal (HCC); Monitoring For Therapeutic Drug Therapy; Correction (Current) Anticoagulant Treatment 04/30/2023 12:24 PM STORE FACILITY TECHNICIAN - 04/30/2023 11:59 PM STORE FACILITY TECHNICIAN Hospital Encounter Department of Laboratory Medicine in [address] [phone] Patrick Erickson D.O. Hypertensive Heart With Heart Failure And Chronic Kidney Disease (CKD) Stage 3a Glomerular Filtration Rate (GFR) 45 To 59 (HCC); Hyperlipidemia On Treatment; Atrial Fibrillation Paroxysmal (HCC); Monitoring For Therapeutic Drug Therapy; Police Manager (Current) Anticoagulant Treatment Discharge Disposition: Home or Self Care 04/28/2023 Refill Department of Internal Medicine in [place], [place] [address] [place] [phone] Soheila Zapata P.A.-C., M.S. Med Refill 04/28/2023 Refill Department of Internal Medicine in [place], [place] [address] [place] [phone] Anna Iniguez APRN, C.N.P., D.N.P. Med Refill 04/27/2023 11:20 AM STORE FACILITY TECHNICIAN Office Visit Department of Internal Medicine in [place], [place] [address] [place] [phone] Anna Iniguez APRN, C.N.P., D.N.P. Dermatitis Perioral (Primary Dx); Hypertensive Heart With Heart Failure And Chronic Kidney Disease (CKD) Stage 3a Glomerular Filtration Rate (GFR) 45 To 59 (HCC); Atrial Fibrillation Paroxysmal (HCC); Allergy Unspecified Initial 04/18/2023 Refill Department of Internal Medicine in [place], [place] [address] [place] [address] Anna Iniguez APRN C.N.P., D.N.P. Med Refill 04/02/2023 2:38 PM STORE FACILITY TECHNICIAN - 04/02/2023 11:59 PM STORE FACILITY TECHNICIAN Hospital Encounter Department of Laboratory Medicine in [address] [phone] Patrick Erickson D.O. Hypertensive Heart With Heart Failure And Chronic Kidney Disease (CKD) Stage 3a Glomerular Filtration Rate (GFR) 45 To 59 (HCC); Hyperlipidemia On Treatment; Atrial Fibrillation Paroxysmal (HCC); Monitoring For Therapeutic Drug Therapy; Correction (Current) Anticoagulant Treatment Discharge Disposition: Home or Self Care 04/02/2023 3:30 PM STORE FACILITY TECHNICIAN Anticoagulation Visit Department of Anticoagulation in [place], [place] [address] [place] [address] Soheila Zapata P.A.Quincy., M.S. Hypertensive Heart With Heart Failure And Chronic Kidney Disease (CKD) Stage 3a Glomerular Filtration Rate (GFR) 45 To 59 (HCC) (Primary Dx); Hyperlipidemia On Treatment; Atrial Fibrillation Paroxysmal (HCC); Monitoring For Therapeutic Drug Therapy; Police Manager (Current) Anticoagulant Treatment 03/19/2023 4:10 PM STORE FACILITY TECHNICIAN Anticoagulation Visit Department of Anticoagulation in [place], [place] [address] [place] [address] Soheila Zapata P.A.-Ashish., M.S. Hypertensive Heart With Heart Failure And Chronic Kidney Disease (CKD) Stage 3a Glomerular Filtration Rate (GFR) 45 To 59 (HCC) (Primary Dx); Hyperlipidemia On Treatment; Atrial Fibrillation Paroxysmal (HCC); Monitoring For Therapeutic Drug Therapy; Police Manager (Current) Anticoagulant Treatment 03/19/2023 3:12 PM STORE FACILITY TECHNICIAN - 03/19/2023 11:59 PM STORE FACILITY TECHNICIAN Hospital Encounter Department of Laboratory Medicine in [place], [place] [address] [place] [address] Patrick Erickson D.O. Hypertensive Heart With Heart Failure And Chronic Kidney Disease (CKD) Stage 3a Glomerular Filtration Rate (GFR) 45 To 59 (HCC); Monitoring For Therapeutic Drug Therapy; Atrial Fibrillation Paroxysmal (HCC) Discharge Disposition: Home or Self Care 03/19/2023 Orders Only Department of Anticoagulation in [place], [place] [address] [place] [phone] Soham Chino R.N. Hypertensive Heart With Heart Failure And Chronic Kidney Disease (CKD) Stage 3a Glomerular Filtration Rate (GFR) 45 To 59 (HCC) (Primary Dx); Monitoring For Therapeutic Drug Therapy; Atrial Fibrillation Paroxysmal (HCC) 03/19/2023 Nurse Triage Department of Internal Medicine in [place], [place] [address] [address] Rosa Isela Pelayo R.N. Urinary Symptom 03/12/2023 2:50 PM STORE FACILITY TECHNICIAN - 03/12/2023 11:59 PM STORE FACILITY TECHNICIAN Hospital Encounter Department of Laboratory Medicine in [address] [phone] Patrick Erickson D.O. Atrial Fibrillation Paroxysmal (HCC); Monitoring For Therapeutic Drug Therapy; Correction (Current) Anticoagulant Treatment Discharge Disposition: Home or Self Care 03/12/2023 4:20 PM STORE FACILITY TECHNICIAN Anticoagulation Visit Department of Anticoagulation in [address] [phone] Soheila Zapata P.A.-C., M.S. Hypertensive Heart With Heart Failure And Chronic Kidney Disease (CKD) Stage 3a Glomerular Filtration Rate (GFR) 45 To 59 (HCC) (Primary Dx); Hyperlipidemia On Treatment; Atrial Fibrillation Paroxysmal (HCC); Monitoring For Therapeutic Drug Therapy; Correction (Current) Anticoagulant Treatment 03/09/2023 1:50 PM STORE FACILITY TECHNICIAN - 03/09/2023 11:59 PM STORE FACILITY TECHNICIAN Hospital Encounter Department of Laboratory Medicine in [address] [phone] Patrick Erickson D.O. Atrial Fibrillation Paroxysmal (HCC); Monitoring For Therapeutic Drug Therapy; Correction (Current) Anticoagulant Treatment Discharge Disposition: Home or Self Care 03/09/2023 2:30 PM STORE FACILITY TECHNICIAN Anticoagulation Visit Department of Anticoagulation in [address] [place] [address] Soheila Zapata P.A.-C., M.S. Hypertensive Heart With Heart Failure And Chronic Kidney Disease (CKD) Stage 3a Glomerular Filtration Rate (GFR) 45 To 59 (HCC) (Primary Dx); Hyperlipidemia On Treatment; Atrial Fibrillation Paroxysmal (HCC); Monitoring For Therapeutic Drug Therapy; Police Manager (Current) Anticoagulant Treatment 03/05/2023 4:07 PM STORE FACILITY TECHNICIAN - 03/05/2023 11:59 PM STORE FACILITY TECHNICIAN Hospital Encounter Department of Laboratory Medicine in [address] [phone] Patrick Erickson D.O. Atrial Fibrillation Paroxysmal (HCC); Monitoring For Therapeutic Drug Therapy; Police Manager (Current) Anticoagulant Treatment Discharge Disposition: Home or Self Care 03/05/2023 4:00 PM STORE FACILITY TECHNICIAN Anticoagulation Visit Department of Anticoagulation in [place], [place] [address] [place] [phone] Soheila Zapata P.A.-C., M.S. Atrial Fibrillation Paroxysmal (HCC) (Primary Dx); Monitoring For Therapeutic Drug Therapy; Correction (Current) Anticoagulant Treatment; Hypertensive Heart With Heart Failure And Chronic Kidney Disease (CKD) Stage 3a Glomerular Filtration Rate (GFR) 45 To 59 (HCC); Hyperlipidemia On Treatment 02/25/2023 9:00 AM STORE FACILITY TECHNICIAN Anticoagulation Visit Department of Anticoagulation in [place], [place] [address] [place] [phone] Soheila Zapata P.A.-C., M.S. Atrial Fibrillation Paroxysmal (HCC) (Primary Dx); Monitoring For Therapeutic Drug Therapy; Police Manager (Current) Anticoagulant Treatment 02/24/2023 4:20 PM STORE FACILITY TECHNICIAN - 02/24/2023 11:59 PM STORE FACILITY TECHNICIAN Hospital Encounter Department of Laboratory Medicine in [address] [address] Soheila Zapata P.A.-C., M.S. Atrial Fibrillation Paroxysmal (HCC); Monitoring For Therapeutic Drug Therapy; Police Manager (Current) Anticoagulant Treatment Discharge Disposition: Home or Self Care 02/24/2023 Clinical Communication Department of Family Medicine, [facility] in [place], [place] [address] [place] [address] Medina Langston R.N. COVID Treatment Review; Error 02/24/2023 Nurse Triage Department of Internal Medicine in [place], [place] [address] [address] Sandra Maravilla R.N. COVID Nurse Line (/) 02/22/2023 Nurse Triage Department of Internal Medicine in [place], [place] [address] [place] [phone] Trish Smith R.N. Cough 02/16/2023 9:20 AM STORE FACILITY TECHNICIAN - 02/16/2023 11:59 PM STORE FACILITY TECHNICIAN Hospital Encounter Department of Laboratory Medicine in [address] [address] Patrick Erickson D.Claudia Atrial Fibrillation Paroxysmal (HCC); Monitoring For Therapeutic Drug Therapy; Police Manager (Current) Anticoagulant Treatment Discharge Disposition: Home or Self Care 02/16/2023 10:00 AM STORE FACILITY TECHNICIAN Anticoagulation Visit Department of Anticoagulation in [place], [place] [address] [place] [address] Soheila Zapata P.A.-CHowie, M.S. Atrial Fibrillation Paroxysmal (HCC) (Primary Dx); Monitoring For Therapeutic Drug Therapy; Police Manager (Current) Anticoagulant Treatment 02/09/2023 Orders Only [facility] Patrick Erickson, Divya 02/02/2023 12:30 PM STORE FACILITY TECHNICIAN Anticoagulation Visit Department of Anticoagulation in [place], [place] [address] [place] [address] Soheila Zapata, P.A.-C., M.S. Atrial Fibrillation Paroxysmal (HCC) (Primary Dx); Monitoring For Therapeutic Drug Therapy; Police Manager (Current) Anticoagulant Treatment 02/02/2023 11:50 AM STORE FACILITY TECHNICIAN - 02/02/2023 11:59 PM STORE FACILITY TECHNICIAN Hospital Encounter Department of Laboratory Medicine in [address] [address] Patrick Erickson D.O. Atrial Fibrillation Paroxysmal (HCC); Monitoring For Therapeutic Drug Therapy; Correction (Current) Anticoagulant Treatment Discharge Disposition: Home or Self Care 01/26/2023 10:00 AM STORE FACILITY TECHNICIAN Anticoagulation Visit Department of Anticoagulation in [address] [address] Soheila Zapata P.A.-C., M.S. Atrial Fibrillation Paroxysmal (HCC) (Primary Dx); Monitoring For Therapeutic Drug Therapy; Correction (Current) Anticoagulant Treatment 01/26/2023 9:20 AM STORE FACILITY TECHNICIAN - 01/26/2023 11:59 PM STORE FACILITY TECHNICIAN Hospital Encounter Department of Laboratory Medicine in [address] [address] Patrick Erickson D.O. Atrial Fibrillation Paroxysmal (HCC); Monitoring For Therapeutic Drug Therapy; Police Manager (Current) Anticoagulant Treatment Discharge Disposition: Home or Self Care 01/14/2023 Clinical Communication Department of Spine in [address] [address] Sirisha Valentino Follow-up ([facility] is calling to complete your 1-year follow-up PROMIS-CAT questionnaires. You will receive questionnaires at different timepoints in the future. You can complete the current questionnaires in your portal and no return call is necessary. If you have any questions, please call us at: [phone]. Thank you! / ) 12/15/2022 12:00 PM CDT Anticoagulation Visit Department of Anticoagulation in [address] [address] Soheila Zapata P.A.-C., M.S. Atrial Fibrillation Paroxysmal (HCC) (Primary Dx); Monitoring For Therapeutic Drug Therapy; Police Manager (Current) Anticoagulant Treatment; Hypertensive Heart With Heart Failure And Chronic Kidney Disease (CKD) Stage 3a Glomerular Filtration Rate (GFR) 45 To 59 (HCC) 12/15/2022 11:20 AM CDT - 12/15/2022 11:59 PM CDT Hospital Encounter Department of Laboratory Medicine in [address] [address] Patrick Erickson D.O. Atrial Fibrillation Paroxysmal (HCC); Monitoring For Therapeutic Drug Therapy; Police Manager (Current) Anticoagulant Treatment Discharge Disposition: Home or Self Care 11/17/2022 3:10 PM CDT Anticoagulation Visit Department of Anticoagulation in [place], [place] [address] [place] [phone] Soheila Zapata P.A.-C., M.S. Atrial Fibrillation Paroxysmal (HCC) (Primary Dx); Monitoring For Therapeutic Drug Therapy; Police Manager (Current) Anticoagulant Treatment 11/17/2022 2:08 PM CDT - 11/17/2022 11:59 PM CDT Hospital Encounter Department of Laboratory Medicine in [address] [address] Soheila Zapata P.A.-C., M.S. Atrial Fibrillation Paroxysmal (HCC); Monitoring For Therapeutic Drug Therapy; Correction (Current) Anticoagulant Treatment Discharge Disposition: Home or Self Care 11/10/2022 12:00 PM CDT - 11/10/2022 11:59 PM CDT Hospital Encounter Department of Laboratory Medicine in [place], [place] [address] [place] [phone] Soheila Zapata P.Genie.-C., M.S. Atrial Fibrillation Paroxysmal (HCC); Monitoring For Therapeutic Drug Therapy; Correction (Current) Anticoagulant Treatment Discharge Disposition: Home or Self Care 11/10/2022 12:40 PM CDT Anticoagulation Visit Department of Anticoagulation in [place], [place] [address] [place] [address] Soheila Zapata P.A.-C., M.S. Atrial Fibrillation Paroxysmal (HCC) (Primary Dx); Monitoring For Therapeutic Drug Therapy; Police Manager (Current) Anticoagulant Treatment 11/04/2022 12:33 PM CDT - 11/04/2022 11:59 PM CDT Hospital Encounter Department of Laboratory Medicine in [place], [place] [address] [place] [phone] Patrick Erickson D.O. Atrial Fibrillation Paroxysmal (HCC); Monitoring For Therapeutic Drug Therapy; Correction (Current) Anticoagulant Treatment Discharge Disposition: Home or Self Care 11/04/2022 2:30 PM CDT Anticoagulation Visit Department of Anticoagulation in [place], [place] [address] [place] [phone] Soheila Zapata P.A.-C., M.S. Atrial Fibrillation Paroxysmal (HCC) (Primary Dx); Monitoring For Therapeutic Drug Therapy; Police Manager (Current) Anticoagulant Treatment 10/28/2022 8:00 AM CDT Anticoagulation Visit Department of Anticoagulation in [place], [place] [address] [place] [phone] Patrick Erickson D.O. Atrial Fibrillation Paroxysmal (HCC) (Primary Dx); Monitoring For Therapeutic Drug Therapy; Police Manager (Current) Anticoagulant Treatment 10/27/2022 Clinical Communication Department of Anticoagulation in [address] [address] Annalise Palmer, RHowieNHowie Anticoagulation (Unable to reach ) 10/27/2022 11:16 AM CDT - 10/27/2022 11:59 PM CDT Hospital Encounter Department of Laboratory Medicine in [address] [phone] Patrick Erickson D.O. Atrial Fibrillation Paroxysmal (HCC); Monitoring For Therapeutic Drug Therapy; Correction (Current) Anticoagulant Treatment Discharge Disposition: Home or Self Care 10/21/2022 Clinical Communication Department of Anticoagulation in [address] [address] Angela Shukla R.N. Anticoagulation (CCM-Enrollment) 10/12/2022 Orders Only Department of Internal Medicine in [address] [phone] Soheila Zapata P.A.-Ashish., M.S. 10/12/2022 9:20 AM CDT - 10/12/2022 11:59 PM CDT Hospital Encounter Department of Laboratory Medicine in [place], [place] [address] [place] [address] Patrick Erickson D.O. Atrial Fibrillation Paroxysmal (HCC); Monitoring For Therapeutic Drug Therapy; Police Manager (Current) Anticoagulant Treatment; Hypertensive Heart With Heart Failure And Chronic Kidney Disease (CKD) Stage 3a Glomerular Filtration Rate (GFR) 45 To 59 (HCC) Discharge Disposition: Home or Self Care 10/12/2022 10:00 AM CDT Anticoagulation Visit Department of Anticoagulation in [place], [place] [address] [place] [phone] Soheila Zapata P.A.-Ashish., M.S. Atrial Fibrillation Paroxysmal (HCC) (Primary Dx); Monitoring For Therapeutic Drug Therapy; Correction (Current) Anticoagulant Treatment 10/02/2022 Clinical Communication Department of Anticoagulation in [place], [place] [address] [place] [phone] Carmen Dorado Anticoagulation (Enrollment Update) 10/02/2022 Orders Only Department of Anticoagulation in [place], [place] [address] [place] [phone] Thalia Zepeda R.N. Atrial Fibrillation Paroxysmal (HCC) (Primary Dx); Police Manager (Current) Anticoagulant Treatment; Monitoring For Therapeutic Drug Therapy 10/02/2022 8:00 AM CDT Anticoagulation Visit Department of Anticoagulation in [place], [place] [address] [place] [phone] Patrick Erickson D.O. Atrial Fibrillation Paroxysmal (HCC) (Primary Dx); Monitoring For Therapeutic Drug Therapy; Police Manager (Current) Anticoagulant Treatment 10/01/2022 Clinical Communication Department of Anticoagulation in [place], [place] [address] [place] [phone] Hemalatha Lewis R.N. Anticoagulation 10/01/2022 8:50 AM CDT - 10/01/2022 11:59 PM CDT Hospital Encounter Department of Laboratory Medicine in [place], [place] [address] [place] [address] Hellweg, Patrick J, D.O. Atrial Fibrillation Paroxysmal (HCC); Monitoring For Therapeutic Drug Therapy; Correction (Current) Anticoagulant Treatment Discharge Disposition: Home or Self Care 09/17/2022 Orders Only Department of Internal Medicine in [place], [place] [address] [place] [address] Soheila Zapata P.A.-C., M.S. Hypertensive Heart With Heart Failure And Chronic Kidney Disease (CKD) Stage 3a Glomerular Filtration Rate (GFR) 45 To 59 (HCC) (Primary Dx) 09/17/2022 11:16 AM CDT - 09/17/2022 11:59 PM CDT Hospital Encounter Department of Laboratory Medicine in [address] [address] Patrick Erickson D.O. Monitoring For Therapeutic Drug Therapy Discharge Disposition: Home or Self Care 09/17/2022 10:20 AM CDT - 09/17/2022 11:15 AM CDT Hospital Encounter Department of Laboratory Medicine in [address] [address] Patrick Erickson D.O. Atrial Fibrillation Paroxysmal (HCC); Monitoring For Therapeutic Drug Therapy Discharge Disposition: Home or Self Care 09/17/2022 11:00 AM CDT Anticoagulation Visit Department of Anticoagulation in [place], [place] [address] [place] [phone] Soheila Zapata P.A.-C., M.S. Atrial Fibrillation Paroxysmal (HCC) (Primary Dx); Monitoring For Therapeutic Drug Therapy; Police Manager (Current) Anticoagulant Treatment 09/03/2022 10:20 AM CDT - 09/03/2022 11:59 PM CDT Hospital Encounter Department of Laboratory Medicine in [address] [address] Soheila Zapata P.A.-Ashish., M.S. Atrial Fibrillation Unspecified (HCC); Monitoring For Therapeutic Drug Therapy; Correction (Current) Anticoagulant Treatment Discharge Disposition: Home or Self Care 09/03/2022 11:00 AM CDT Anticoagulation Visit Department of Anticoagulation in [place], [place] [address] [place] [phone] Soheila Zapata P.A.-C., M.S. Atrial Fibrillation Paroxysmal (HCC) (Primary Dx); Monitoring For Therapeutic Drug Therapy; Police Manager (Current) Anticoagulant Treatment 09/01/2022 1:00 PM CDT Office Visit Department of Cardiovascular Diseases in [address] [address] Roberto Dumont, BALTAZAR, C.N.P. Atrial Fibrillation Paroxysmal (HCC) (Primary Dx); Correction (Current) Anticoagulant Treatment; Bradycardia; Cardiomyopathy Dilated (HCC); Hypertensive Heart With Heart Failure And Chronic Kidney Disease (CKD) Stage 3a Glomerular Filtration Rate (GFR) 45 To 59 (HCC) 08/31/2022 11:00 AM CDT Office Visit Department of Family Medicine, [facility], in [place], [place] [address] [place] [phone] Alesha Kellogg, BALTAZAR, C.N.P. Laceration Blood Vessel Left Index Finger Sequela (Primary Dx) 08/12/[address] [facility] Patrick Erickson D.O. Monitoring For Therapeutic Drug Therapy 08/10/2022 11:11 AM CDT - 08/10/2022 11:59 PM CDT Hospital Encounter Department of Laboratory Medicine in [address] [address] Soheila Zapata P.A.-C., M.S. Atrial Fibrillation Unspecified (HCC); Monitoring For Therapeutic Drug Therapy; Correction (Current) Anticoagulant Treatment Discharge Disposition: Home or Self Care 08/10/2022 12:30 PM CDT Anticoagulation Visit Department of Anticoagulation in [place], [place] [address] [place] [address] Soheila Zapata P.A.-C., M.S. Atrial Fibrillation Unspecified (HCC) (Primary Dx); Monitoring For Therapeutic Drug Therapy; Correction (Current) Anticoagulant Treatment 08/07/2022 Clinical Communication Department of Anticoagulation in [place], [place] [address] [place] [phone] Lois Vidal R.N. Anticoagulation 07/27/2022 3:20 PM CDT Anticoagulation Visit Department of Anticoagulation in [place], [place] [address] [place] [phone] Soheila Zapata P.A.-C., M.S. Atrial Fibrillation Unspecified (HCC) (Primary Dx); Monitoring For Therapeutic Drug Therapy; Police Manager (Current) Anticoagulant Treatment 07/27/2022 2:20 PM CDT - 07/27/2022 11:59 PM CDT Hospital Encounter Department of Laboratory Medicine in [address] [address] Soheila Zapata P.A.-C., M.S. Atrial Fibrillation Unspecified (HCC); Monitoring For Therapeutic Drug Therapy; Police Manager (Current) Anticoagulant Treatment Discharge Disposition: Home or Self Care 06/29/2022 10:12 AM CDT - 06/29/2022 11:59 PM CDT Hospital Encounter Department of Laboratory Medicine in [address] [address] Soheila Zapata P.Genie.-C., M.S. Atrial Fibrillation Unspecified; Monitoring For Therapeutic Drug Therapy; Police Manager (Current) Anticoagulant Treatment Discharge Disposition: Home or Self Care 06/29/2022 11:00 AM CDT Anticoagulation Visit Department of Anticoagulation in [place], [place] [address] [place] [phone] Soheila Zapata P.Genie.-C., M.S. Atrial Fibrillation Unspecified (Primary Dx); Monitoring For Therapeutic Drug Therapy; Police Manager (Current) Anticoagulant Treatment 06/19/2022 9:50 AM CDT - 06/19/2022 11:59 PM CDT Hospital Encounter Department of Laboratory Medicine in [address] [address] Soheila Zapata P.A.-C., M.S. Atrial Fibrillation Unspecified; Monitoring For Therapeutic Drug Therapy; Correction (Current) Anticoagulant Treatment Discharge Disposition: Home or Self Care 06/19/2022 10:30 AM CDT Anticoagulation Visit Department of Anticoagulation in [place], [place] [address] [place] [phone] Soheila Zapata P.A.-C., M.S. Atrial Fibrillation Unspecified (Primary Dx); Monitoring For Therapeutic Drug Therapy; Police Manager (Current) Anticoagulant Treatment 06/15/2022 9:50 AM CDT - 06/15/2022 11:59 PM CDT Hospital Encounter Department of Laboratory Medicine in [place], [place] [address] [place] [address] Soheila Zapata P.A.-C., M.S. Atrial Fibrillation Unspecified; Monitoring For Therapeutic Drug Therapy; Police Manager (Current) Anticoagulant Treatment Discharge Disposition: Home or Self Care 06/15/2022 10:30 AM CDT Anticoagulation Visit Department of Anticoagulation in [place], [place] [address] [place] [phone] Soheila Zapata P.A.-C., M.S. Atrial Fibrillation Unspecified (Primary Dx); Monitoring For Therapeutic Drug Therapy; Police Manager (Current) Anticoagulant Treatment 06/09/2022 9:50 AM CDT - 06/09/2022 11:59 PM CDT Hospital Encounter Department of Laboratory Medicine in [place], [place] [address] [place] [address] Soheila Zapata P.A.-C., M.S. Atrial Fibrillation Unspecified; Monitoring For Therapeutic Drug Therapy; Correction (Current) Anticoagulant Treatment Discharge Disposition: Home or Self Care 06/09/2022 10:30 AM CDT Anticoagulation Visit Department of Anticoagulation in [place], [place] [address] [place] [phone] Soheila Zapata P.A.-C., M.S. Atrial Fibrillation Unspecified (Primary Dx); Monitoring For Therapeutic Drug Therapy; Police Manager (Current) Anticoagulant Treatment 06/03/2022 9:45 AM CDT Office Visit Department of Cardiovascular Diseases in [place], [place] [address] [place] [address] Roberto Dumont APRN, C.N.P. Atrial Fibrillation Unspecified (Primary Dx); Police Manager (Current) Anticoagulant Treatment; Cardiomyopathy Dilated (HCC); Hyperlipidemia On Treatment; Hypertensive Heart With Heart Failure And Chronic Kidney Disease (CKD) Stage 3a Glomerular Filtration Rate (GFR) 45 To 59 (HCC) 06/01/2022 7:12 AM CDT - 06/01/2022 11:59 PM CDT Hospital Encounter Department of Cardiovascular Diseases in [place], [place] [address] [place] [address] Roberto Dumont, BALTAZAR, C.N.P. Cardiomyopathy Dilated (HCC) Discharge Disposition: Home or Self Care 05/12/2022 Orders Only JESSIKA ESTRADA PCP [facility] Soheila Zapata P.A.-C., M.S. Deficiency Estrogen Post Menopausal 05/12/2022 9:20 AM STORE FACILITY TECHNICIAN - 05/12/2022 11:59 PM STORE FACILITY TECHNICIAN Hospital Encounter Department of Laboratory Medicine in [address] [phone] Soheila Zapata P.A.-C., M.S. Atrial Fibrillation Unspecified; Monitoring For Therapeutic Drug Therapy; Police Manager (Current) Anticoagulant Treatment Discharge Disposition: Home or Self Care 05/12/2022 10:00 AM STORE FACILITY TECHNICIAN Anticoagulation Visit Department of Anticoagulation in [place], [place] [address] [place] [phone] Soheila Zapata P.A.-C., M.S. Atrial Fibrillation Unspecified (Primary Dx); Monitoring For Therapeutic Drug Therapy; Police Manager (Current) Anticoagulant Treatment 04/29/2022 8:00 AM STORE FACILITY TECHNICIAN Anticoagulation Visit Department of Anticoagulation in [place], [place] [address] [place] [phone] Soheila Zapata P.A.-C., M.S. Atrial Fibrillation Unspecified (Primary Dx); Monitoring For Therapeutic Drug Therapy; Correction (Current) Anticoagulant Treatment 04/28/2022 Clinical Communication Department of Anticoagulation in [place], [place] [address] [place] [phone] Hemalatha Lewis R.N. 04/28/2022 2:42 PM STORE FACILITY TECHNICIAN - 04/28/2022 11:59 PM STORE FACILITY TECHNICIAN Hospital Encounter Department of Laboratory Medicine in [place], [place] [address] [place] [address] Soheila Zapata P.A.-C., M.S. Atrial Fibrillation Unspecified; Monitoring For Therapeutic Drug Therapy; Police Manager (Current) Anticoagulant Treatment Discharge Disposition: Home or Self Care 04/21/2022 10:25 AM STORE FACILITY TECHNICIAN - 04/21/2022 11:59 PM STORE FACILITY TECHNICIAN Hospital Encounter Department of Laboratory Medicine in [place], [place] [address] [place] [phone] Roberto Dumont APRN, C.N.P. Atrial Fibrillation Unspecified Discharge Disposition: Home or Self Care 04/21/2022 9:50 AM STORE FACILITY TECHNICIAN - 04/21/2022 10:24 AM STORE FACILITY TECHNICIAN Hospital Encounter Department of Laboratory Medicine in [address] [phone] Soheila Zapata P.A.-C., M.S. Atrial Fibrillation Unspecified; Monitoring For Therapeutic Drug Therapy; Correction (Current) Anticoagulant Treatment Discharge Disposition: Home or Self Care 04/21/2022 10:30 AM STORE FACILITY TECHNICIAN Anticoagulation Visit Department of Anticoagulation in [place], [place] [address] [place] [address] Soheila Zapata P.Genie.-C., M.S. Atrial Fibrillation Unspecified (Primary Dx); Monitoring For Therapeutic Drug Therapy; Correction (Current) Anticoagulant Treatment 04/16/2022 Orders Only Department of Cardiovascular Diseases in [place], [place] [address] [address] Roberto Dumont APRN, C.N.P. 04/15/2022 Refill Department of Internal Medicine in [place], [place] [address] [address] Soheila Zapata P.A.-C., M.S. Med Refill 04/15/2022 Refill Department of Internal Medicine in [place], [place] [address] [place] [phone] Addie De La Garza M.D. Med Refill 04/10/2022 Refill Department of Internal Medicine in [place], [place] [address] [place] [phone] Soheila Zapata P.A.-C., M.S. Med Refill 04/07/2022 10:10 AM STORE FACILITY TECHNICIAN - 04/07/2022 10:17 AM STORE FACILITY TECHNICIAN Hospital Encounter Department of Laboratory Medicine in [address] [phone] Soheila Zapata P.A.-C., M.S. Atrial Fibrillation Unspecified; Monitoring For Therapeutic Drug Therapy; Correction (Current) Anticoagulant Treatment Discharge Disposition: Home or Self Care 04/07/2022 10:50 AM STORE FACILITY TECHNICIAN Anticoagulation Visit Department of Anticoagulation in [address] [address] Soheila Zapata P.A.-C., M.S. Atrial Fibrillation Unspecified (Primary Dx); Monitoring For Therapeutic Drug Therapy; Correction (Current) Anticoagulant Treatment 04/07/2022 10:18 AM STORE FACILITY TECHNICIAN - 04/07/2022 11:59 PM STORE FACILITY TECHNICIAN Hospital Encounter Department of Cardiovascular Diseases in [place], [place] [address] [place] [phone] Roberto Dumont APRN, C.N.P. Atrial Fibrillation Other Persistent (HCC) Discharge Disposition: Home or Self Care 03/31/2022 Clinical Communication Department of Internal Medicine in [place], [place] [address] [place] [phone] Soheila Zapata P.A.-C., M.S. 03/31/2022 Nurse Triage Department of Internal Medicine in [place], [place] [address] [place] [phone] Tammy Ramos M.S.N., RMoraima. Eye Problem 03/31/2022 12:30 PM STORE FACILITY TECHNICIAN Anticoagulation Visit Department of Anticoagulation in [place], [place] [address] [place] [phone] Soheila Zapata P.A.-C., M.S. Atrial Fibrillation Unspecified (Primary Dx); Monitoring For Therapeutic Drug Therapy; Correction (Current) Anticoagulant Treatment 03/31/2022 11:50 AM STORE FACILITY TECHNICIAN - 03/31/2022 11:59 PM STORE FACILITY TECHNICIAN Hospital Encounter Department of Laboratory Medicine in [address] [phone] Soheila Zapata P.A.-C., M.S. Atrial Fibrillation Unspecified; Monitoring For Therapeutic Drug Therapy; Correction (Current) Anticoagulant Treatment Discharge Disposition: Home or Self Care 03/27/2022 Clinical Communication Department of Anticoagulation in [place], [place] [address] [place] [phone] Alesha Gonzalez R.N. Anticoagulation 03/24/2022 1:30 PM STORE FACILITY TECHNICIAN Anticoagulation Visit Department of Anticoagulation in [address] [address] Soheila Zapata P.AHowie-CHowie, M.S. Atrial Fibrillation Unspecified (Primary Dx); Monitoring For Therapeutic Drug Therapy; Police Manager (Current) Anticoagulant Treatment 03/24/2022 12:44 PM STORE FACILITY TECHNICIAN - 03/24/2022 11:59 PM STORE FACILITY TECHNICIAN Hospital Encounter Department of Laboratory Medicine in [address] [phone] Soheila Zapata P.A.-C., M.S. Atrial Fibrillation Unspecified; Monitoring For Therapeutic Drug Therapy; Police Manager (Current) Anticoagulant Treatment Discharge Disposition: Home or Self Care 03/16/2022 10:30 AM STORE FACILITY TECHNICIAN Anticoagulation Visit Department of Anticoagulation in [place], [place] [address] [place] [phone] Soheila Zapata P.Genie.-C., M.S. Atrial Fibrillation Unspecified (Primary Dx); Monitoring For Therapeutic Drug Therapy; Correction (Current) Anticoagulant Treatment 03/16/2022 9:50 AM STORE FACILITY TECHNICIAN - 03/16/2022 11:59 PM STORE FACILITY TECHNICIAN Hospital Encounter Department of Laboratory Medicine in [address] [phone] Soheila Zapata P.A.-C., M.S. Atrial Fibrillation Unspecified; Monitoring For Therapeutic Drug Therapy; Correction (Current) Anticoagulant Treatment Discharge Disposition: Home or Self Care 03/06/2022 10:50 AM STORE FACILITY TECHNICIAN - 03/06/2022 11:59 PM STORE FACILITY TECHNICIAN Hospital Encounter Department of Laboratory Medicine in [address] [phone] Soheila Zapata P.A.-C., M.S. Atrial Fibrillation Unspecified; Monitoring For Therapeutic Drug Therapy; Police Manager (Current) Anticoagulant Treatment Discharge Disposition: Home or Self Care 03/06/2022 11:40 AM STORE FACILITY TECHNICIAN Anticoagulation Visit Department of Anticoagulation in [address] [address] Soheila Zapata P.A.-C., M.S. Atrial Fibrillation Unspecified (Primary Dx); Monitoring For Therapeutic Drug Therapy; Correction (Current) Anticoagulant Treatment 02/20/2022 10:50 AM STORE FACILITY TECHNICIAN - 02/20/2022 11:59 PM STORE FACILITY TECHNICIAN Hospital Encounter Department of Laboratory Medicine in [address] [address] Soheila Zapata P.A.-C., M.S. Atrial Fibrillation Unspecified; Monitoring For Therapeutic Drug Therapy; Police Manager (Current) Anticoagulant Treatment Discharge Disposition: Home or Self Care 02/20/2022 11:30 AM STORE FACILITY TECHNICIAN Anticoagulation Visit Department of Anticoagulation in [address] [address] Soheila Zapata P.A.-C., M.S. Atrial Fibrillation Unspecified (Primary Dx); Monitoring For Therapeutic Drug Therapy; Correction (Current) Anticoagulant Treatment 02/13/2022 11:20 AM STORE FACILITY TECHNICIAN - 02/13/2022 11:59 PM STORE FACILITY TECHNICIAN Hospital Encounter Department of Laboratory Medicine in [address] [address] Soheila Zapata P.A.-C., M.S. Atrial Fibrillation Unspecified; Monitoring For Therapeutic Drug Therapy; Police Manager (Current) Anticoagulant Treatment Discharge Disposition: Home or Self Care 02/13/2022 12:00 PM STORE FACILITY TECHNICIAN Anticoagulation Visit Department of Anticoagulation in [address] [address] Soheila Zapata P.A.-C., M.S. Atrial Fibrillation Unspecified (Primary Dx); Monitoring For Therapeutic Drug Therapy; Police Manager (Current) Anticoagulant Treatment 02/09/2022 8:00 AM STORE FACILITY TECHNICIAN Anticoagulation Visit Department of Anticoagulation in [place], [place] [address] [place] [phone] Soheila Zapata P.A.-C., M.S. Atrial Fibrillation Unspecified (Primary Dx); Monitoring For Therapeutic Drug Therapy; Correction (Current) Anticoagulant Treatment 02/06/2022 Clinical Communication Department of Anticoagulation in [address] [phone] Trish Chambers R.N. Anticoagulation (Unable to reach ) 02/06/2022 2:40 PM STORE FACILITY TECHNICIAN - 02/06/2022 11:59 PM STORE FACILITY TECHNICIAN Hospital Encounter Department of Laboratory Medicine in [address] [phone] Soheila Zapata P.A.-C., M.S. Atrial Fibrillation Unspecified; Monitoring For Therapeutic Drug Therapy; Correction (Current) Anticoagulant Treatment Discharge Disposition: Home or Self Care 02/03/2022 1:00 PM STORE FACILITY TECHNICIAN Virtual Visit Department of Patient Education in [address] [address] Soheila Zapata P.A.-C., M.S. Genesis Hooper, M.S. Atrial Fibrillation Unspecified; Monitoring For Therapeutic Drug Therapy; Correction (Current) Anticoagulant Treatment 02/02/2022 12:50 PM STORE FACILITY TECHNICIAN Anticoagulation Visit Department of Anticoagulation in [place], [place] [address] [place] [phone] Soheila Zapata P.A.-C., M.S. Atrial Fibrillation Unspecified (Primary Dx); Monitoring For Therapeutic Drug Therapy; Correction (Current) Anticoagulant Treatment 02/02/2022 12:06 PM STORE FACILITY TECHNICIAN - 02/02/2022 11:59 PM STORE FACILITY TECHNICIAN Hospital Encounter Department of Laboratory Medicine in [address] [address] Soheila Zapata P.A.-C., M.S. Atrial Fibrillation Unspecified; Monitoring For Therapeutic Drug Therapy; Police Manager (Current) Anticoagulant Treatment Discharge Disposition: Home or Self Care 01/23/2022 3:40 PM STORE FACILITY TECHNICIAN - 01/23/2022 11:59 PM STORE FACILITY TECHNICIAN Hospital Encounter Department of Laboratory Medicine in [address] [address] Soheila Zapata P.A.-C., M.S. Atrial Fibrillation Unspecified; Monitoring For Therapeutic Drug Therapy; Police Manager (Current) Anticoagulant Treatment Discharge Disposition: Home or Self Care 01/23/2022 4:20 PM STORE FACILITY TECHNICIAN Anticoagulation Visit Department of Anticoagulation in [address] [address] Soheila Zapata P.A.-C., M.S. Atrial Fibrillation Unspecified (Primary Dx); Monitoring For Therapeutic Drug Therapy; Police Manager (Current) Anticoagulant Treatment 01/20/2022 Clinical Communication Department of Anticoagulation in [address] [address] Iris Singh Anticoagulation (Unable to reach ) 01/16/2022 10:50 AM STORE FACILITY TECHNICIAN Anticoagulation Visit Department of Anticoagulation in [address] [address] Soheila Zapata P.A.-C., M.S. Atrial Fibrillation Unspecified (Primary Dx); Monitoring For Therapeutic Drug Therapy; Correction (Current) Anticoagulant Treatment 01/15/2022 Clinical Communication Department of Anticoagulation in [address] [place] [address] Angela Shukla R.N. Anticoagulation (Unable to reach) 01/15/2022 11:20 AM STORE FACILITY TECHNICIAN - 01/15/2022 11:59 PM STORE FACILITY TECHNICIAN Hospital Encounter Department of Laboratory Medicine in [place], [place] [address] [place] [address] Soheila Zapata, P.A.-C., M.S. Atrial Fibrillation Unspecified; Monitoring For Therapeutic Drug Therapy; Police Manager (Current) Anticoagulant Treatment Discharge Disposition: Home or Self Care 01/14/2022 11:30 AM STORE FACILITY TECHNICIAN Office Visit Department of Physical Medicine and Rehabilitation in [place], [place] [address] [address] Eder Torres M.D. 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 Atrial Fibrillation Unspecified (Primary Dx); Monitoring For Therapeutic Drug Therapy; Police Manager (Current) Anticoagulant Treatment 01/12/2022 1:40 PM STORE FACILITY TECHNICIAN - 01/12/2022 11:59 PM STORE FACILITY TECHNICIAN Hospital Encounter Department of Laboratory Medicine in [place], [place] [address] [address] Soheila Zapata, P.A.-C., M.S. Atrial Fibrillation Unspecified; Monitoring For Therapeutic Drug Therapy; Correction (Current) Anticoagulant Treatment Discharge Disposition: Home or Self Care 01/07/2022 Clinical Communication Department of Anticoagulation in [place], [place] [address] [place] [phone] Soham Chino R.N. Anticoagulation (Welcome call) 01/06/2022 Orders Only Department of Anticoagulation in [address] [address] Soham Chino R.N. Atrial Fibrillation Unspecified (Primary Dx); Police Manager (Current) Anticoagulant Treatment 12/30/2021 2:09 PM CDT - 12/30/2021 11:59 PM CDT Hospital Encounter Department of Laboratory Medicine in [address] [address] Roberto Dumont APRN C.N.PHowie Cardiomyopathy Dilated (HCC); Irregular Pulse Discharge Disposition: Home or Self Care 12/30/2021 3:00 PM CDT Nurse Only Department of Family Medicine, [facility], in [address] [address] Soheila Zapata P.A.-C., MNga Grossman LHowiePAziza Nurse Visit (BP check with home device validation) 12/30/2021 1:30 PM CDT Office Visit Department of Cardiovascular Diseases in [address] [address] Roberto Dumont APRN, C.N.PHowie Cardiomyopathy Dilated (HCC) (Primary Dx); Irregular Pulse; 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 Lumbago With Sciatica Left Side; Spondylolysis Lumbar Region Discharge Disposition: Home or Self Care 12/17/2021 2:00 PM CDT Comprehensive Visit Department of Physical Medicine and Rehabilitation in [address] [address] Eder Torres M.D. Spondylolysis Lumbar Region (Primary Dx); Lumbago With Sciatica Left Side; Spinal Stenosis Lumbar Region Without Neurogenic Claudication 12/14/2021 Refill Department of Internal Medicine in [address] [address] Addie De La Garza M.D. Med Refill 12/10/2021 Orders Only Department of Internal Medicine in [address] [address] Soheila Zapata P.A.-C., M.S. Screening Colon Cancer Average Risk 12/09/2021 2:00 PM CDT Office Visit Department of Internal Medicine in [address] [address] Soheila Zapata P.A.-C., M.S. Radiculopathy Sacral (Primary Dx); Radiculopathy Lumbar Fifth Left; Cardiomyopathy Dilated (HCC); Hypertensive Heart With Heart Failure And Chronic Kidney Disease (CKD) Stage 3a Glomerular Filtration Rate (GFR) 45 To 59 (HCC); Screening Colon Cancer Average Risk; Pain Foot Left 12/09/2021 2:45 PM CDT - 12/09/2021 11:59 PM CDT Hospital Encounter Department of Radiology in [address] [address] Soheila Zapata P.A.-C., M.S. [facility] Health Adult Discharge Disposition: Home or Self Care 11/18/2021 Clinical Communication Department of Internal Medicine in [address] [address] Soheila Zapata P.A.-C., M.S. Pain 11/06/2021 2:35 PM CDT - 11/06/2021 11:59 PM CDT Hospital Encounter Department of Laboratory Medicine in [address] [address] Soheila Zapata P.A.-C., M.S. Hypertensive Chronic Kidney Disease (CKD) Stage 3a Glomerular Filtration Rate (GFR) 45 To 59 (HCC); Hyperlipidemia On Treatment; Maintenance Health Adult; Screening Examination Diabetes Mellitus Discharge Disposition: Home or Self Care 11/06/2021 1:30 PM CDT Office Visit Department of Internal Medicine in [address] [address] Soheila Zapata P.A.-C., M.S. Radiculopathy Lumbar Fifth Left (Primary Dx); Radiculopathy Sacral; Cardiomyopathy Dilated (HCC); Hypertensive Chronic Kidney Disease (CKD) Stage 3a Glomerular Filtration Rate (GFR) 45 To 59 (HCC); Hyperlipidemia On Treatment; Screening Examination Diabetes Mellitus; Maintenance Health Adult 11/04/2021 9:30 AM CDT Office Visit Department of Internal Medicine in [address] [address] Stevan Bhakta D.O. Procedure And Treatment Not Carried Out Due To Patient Leaving Prior To Being Seen By Health Care Provider (Primary Dx) 10/16/2021 Clinical Communication Department of Internal Medicine in [address] [address] Ermelinda Valle M.D. 10/16/2021 Clinical Communication Department of Internal Medicine in [address] [address] Addie De La Garza M.D. [place] referal 09/26/2021 Clinical Communication Department of Internal Medicine in [address] [address] Stevan Bhakta D.O. Form Review (Michell PT - 09/25/21) 09/17/2021 Clinical Communication Department of Internal Medicine in [address] [address] Ermelinda Valle M.D. 08/21/2021 Clinical Communication Department of Internal Medicine in [place], [place] [address] [place] [phone] Stevan Bhakta D.O. Form Review (FMLA) 08/19/2021 9:45 AM CDT Office Visit Department of Internal Medicine in [place], [place] [address] [place] [phone] Ermelinda Valle M.D. Lumbago With Sciatica Left Side (Primary Dx) 08/15/2021 Clinical Communication Department of Internal Medicine in [address] [address] Stevan Bhakta D.O. 08/12/[address] [facility] PCP [facility] ER Ermelinda Kay M.D. Deficiency Estrogen Post Menopausal 07/23/[address] [facility] SEM[facility] PCP [facility] ER Stevan Bhakta, D.O. 06/26/2021 2:30 PM CDT Office Visit Department of Internal Medicine in [address] [address] Addie De La Garza M.D. Migraine Headache (Primary Dx); Chronic Kidney Disease (CKD), Stage 3 Unspecified (HCC); Hyperlipidemia On Treatment; Rash; Hypertensive Chronic Kidney Disease (CKD) Stage 3a Glomerular Filtration Rate (GFR) 45 To 59 05/07/[address] [facility] SEMN PCP [facility] ER Stevan Bhakta, D.O. Monitoring For Therapeutic Drug Therapy 01/14/[address] [facility] Screening Cancer Colon 01/14/[address] [facility] Screening Cancer Colon 12/31/[address] [facility] 11/12/2020 Orders Only [facility] Stevan Bhakta D.O. Screening Mammogram Breast Cancer; Deficiency Estrogen Post Menopausal 11/04/2020 Clinical Communication Division of [facility], [facility], in [place], [place] [address] [place] [address] Nancy Lovett R.N. COVID Nurse Line 11/04/2020 Clinical Communication Department of Internal Medicine in [address] [address] Stevan Bhakta D.O. COVID Inquiry 08/19/2020 Refill Department of Internal Medicine in [address] [address] Stevan Bhakta D.O. Med Refill 06/19/2020 Clinical Communication Department of Internal Medicine in [address] [address] Stevan Bhakta D.O. 06/06/2020 Clinical Communication Department of Internal Medicine in [address] [address] Butch Velazquez M.D. 05/27/2020 3:17 PM CDT - 05/27/2020 11:59 PM CDT Hospital Encounter Department of Cardiovascular Diseases in [address] [address] Butch Velazquez M.D. Cardiomyopathy Dilated (HCC) Discharge Disposition: Home or Self Care 05/17/2020 10:45 AM STORE FACILITY TECHNICIAN - 05/17/2020 10:53 AM STORE FACILITY TECHNICIAN Hospital Encounter Department of Laboratory Medicine in [place], [place] [address] [place] [phone] Butch Velazquez M.D. Cardiomyopathy Dilated (HCC) Discharge Disposition: Home or Self Care 05/17/2020 10:54 AM STORE FACILITY TECHNICIAN - 05/17/2020 11:59 PM STORE FACILITY TECHNICIAN Hospital Encounter Department of Radiology in [address] [address] Butch Velazquez M.D. Pain Low Back Discharge Disposition: Home or Self Care 05/16/2020 2:00 PM STORE FACILITY TECHNICIAN Office Visit Department of Internal Medicine in [address] [address] Butch Velazquez M.D. Personal History Of Infectious And Parasitic Disease (COVID-19) (Primary Dx); Radiculopathy Lumbar; Pain Low Back; Cardiomyopathy Dilated (HCC); Chronic Kidney Disease (CKD), Stage 3 Unspecified (HCC) 05/13/2020 Clinical Communication Department of Internal Medicine in [address] [address] Stevan Bhakta DHowieO. COVID Inquiry 03/14/2020 Orders Only Department of Internal Medicine in [address] [address] Butch Velazquez M.D. 02/12/[address] [facility] Stevan Bhakta, D.O. Deficiency Estrogen Post Menopausal; Screening Examination Diabetes Mellitus; Monitoring For Therapeutic Drug Therapy 11/27/2019 Clinical Communication Department of Internal Medicine in [address] [address] Stevan Bhakta D.O. Results 11/25/2019 External Outreach Department of Internal Medicine in [address] [address] Patrick Erickson D.O. Infection Upper Respiratory (Primary Dx) Discharge Disposition: Home or Self Care 11/25/2019 Clinical [facility] in [place], [place] [address] [place] [address] Medina Rocha R.N. COVID Nurse Eri 09/29/2019 Clinical Communication Department of Internal Medicine in [place], [place] [address] [place] [phone] Stevan Bhakta D.O. Results 09/28/2019 External Outreach Department of Internal Medicine in [place], [place] [address] [place] [phone] Patrick Erickson D.O. Infection Upper Respiratory (Primary Dx) Discharge Disposition: Home or Self Care 08/23/2019 Orders Only [facility] M[facility]tevan Daugherty D.O. Screening Mammogram Breast Cancer 12/14/2018 Orders Only [facility] Stevan Bhakta D.Anne. Screening Examination Diabetes Mellitus; Monitoring For Therapeutic Drug Therapy 11/09/2018 Refill Department of Cardiovascular Diseases in [place], [place] [address] [place] [phone] Roberto Dumont, BALTAZAR, C.N.P. Med Refill 10/26/2018 2:30 PM CDT Office Visit Department of Internal Medicine in [place], [place] [address] [place] [phone] Butch Velazquez M.D. Neuralgia Post Herpetic (Primary Dx) 09/23/2018 8:30 AM CDT Office Visit Urgent Care in [place], [place] [address] [place] [phone] Omi Talbot P.A.-C., P.A. Herpes Zoster (Primary Dx); Insect Bite Nonvenomous Abdominal Wall Initial 05/12/2018 Orders Only [facility] Stevan Bhakta D.O. Screening Mammogram Breast Cancer 01/25/2018 Refill Department of Cardiovascular Diseases in [address] [address] Roberto Dumont APRN, C.N.P. Med Refill 01/05/2018 Orders Only Department of Internal Medicine in [address] [address] Stevan Bhakta D.O. Deficiency Estrogen Post Menopausal; Screening Mammogram Average Risk Patient 12/30/2017 12:30 PM CDT Office Visit Department of Cardiovascular Diseases in [address] [address] Tariq Estrella M.D. Brandl, Adam C, APRN, C.N.P. Cardiomyopathy Dilated (HCC); Dyslipidemia 12/28/2017 12:00 PM CDT - 12/28/2017 11:59 PM CDT Hospital Encounter Department of Laboratory Medicine in [address] [address] Tariq Estrella M.D. Cardiomyopathy Dilated (HCC) Discharge Disposition: Home or Self Care 07/29/2017 Clinical Communication Department of Cardiovascular Diseases in [address] [phone] Tariq Estrella M.D. Results 07/28/2017 8:34 AM CDT - 07/28/2017 11:59 PM CDT Hospital Encounter Department of Cardiovascular Diseases in [address] [address] Tariq Estrella M.D. Cardiomyopathy Dilated (HCC) Discharge Disposition: Home or Self Care 07/21/2017 Refill Department of Cardiovascular Diseases in [address] [address] Tariq Estrella M.D. Med Refill 07/19/2017 11:23 AM CDT - 07/19/2017 11:59 PM CDT Hospital Encounter Department of Radiology in [place], [place] [address] [place] [phone] Bayron Fernandez M.D. Pain Low Back Acute Discharge Disposition: Home or Self Care 07/19/2017 12:00 PM CDT Office Visit Urgent Care in [place], [place] [address] [place] [phone] Bayron Fernandez M.D. Pain Low Back Acute (Primary Dx) 07/02/2017 Clinical Communication Department of Cardiovascular Diseases in [place], [place] [address] [place] [phone] Willis Lopez M.HZac Communication 07/02/2017 Clinical Communication Department of Internal Medicine in [place], [place] [address] [place] [phone] Elgin Armas M.D. Communication 07/02/2017 10:45 AM CDT Office Visit Department of Cardiovascular Diseases in [place], [place] [address] [place] [phone] Tariq Estrella M.D. Cardiomyopathy Dilated (HCC) (Primary Dx); Dyslipidemia 06/30/2017 7:57 AM CDT - 06/30/2017 11:59 PM CDT Hospital Encounter Department of Laboratory Medicine in [place], [place] [address] [place] [phone] Elgin Armas M.D. Failure Heart (HCC) Discharge Disposition: Home or Self Care 05/19/2017 Orders Only Department of Internal Medicine in [place], [place] [address] [place] [phone] Elgin Armas M.D. Diabetes Mellitus Type 2 (HCC) (Primary Dx); Screening Mammogram Average Risk Patient 12/18/2016 Orders Only Department of Cardiovascular Diseases in [place], [place] [address] [place] [phone] Tariq Estrella M.D. Failure Heart (HCC) 08/17/2016 [...] LAB Tariq Estrella M.D. 02/13/2015 10:51 AM STORE FACILITY TECHNICIAN - 02/13/2015 11:59 PM STORE FACILITY TECHNICIAN Hospital Encounter [facility]X [facility] Braulio Simmons M.D. 02/11/2015 9:17 AM STORE FACILITY TECHNICIAN - 02/11/2015 11:59 PM STORE FACILITY TECHNICIAN Hospital Encounter HX [facility] LAB Braulio [...] HX [facility] Roberto Dumont APRN C.N.PHowie 08/17/2014 1:54 PM CDT - 08/17/2014 11:59 [...] 07/20/2014 11:59 PM CDT Hospital Encounter [facility] Dutch Kay M.D. 10/25/2006 Hospital Encounter HX [facility] Sher Horn M.D. Allergies Active Allergy Reactions Criticality Noted Date Comments Codeine Hives (Reselect Reaction) 07/20/2014 [place] Shortness of breath (Reselect Reaction) 12/09/2021 [place] Medications CYANOCOBALAMI N, VITAMIN B-12, ORAL 1,000 mcg daily. 08/14/19 16 Active CHOLECALCIFER OL, VITAMIN D3, ORAL Take 1 capsule by mouth daily. 08/14/19 16 Active cyclobenzapri ne (FLEXERIL) 5 mg tablet Take 1 tablet (5 mg total) by mouth at bedtime as needed for muscle spasms. 30 tablet 06/27/19 22 Active tumeric-ging- alqby-ydiv-vu pryl 100 mg-150 mg- 50 mg-150 mg capsule Take by mouth 3 (three) times a day. Active cranberry conc/C/Bacill coag (CRANBERRY URINARY TRACT HEALTH ORAL) Take 1 tablet by mouth daily. Active carvediloL (COREG) 6.25 mg tablet take 1 tablet twice daily 180 tablet 3 06/24/19 24 Active warfarin (Jantoven) 5 mg tablet Take 7.5 mg by mouth daily. Take as directed 08/02/19 23 Active atorvastatin (Lipitor) 10 mg tablet TAKE 1 TABLET EVERY DAY 90 tablet 3 02/09/20 24 Active lisinopriL 40 mg tablet TAKE 1 TABLET EVERY DAY 90 tablet 3 02/09/20 24 Active furosemide (Lasix) 20 mg tablet TAKE 1 TABLET (20 MG TOTAL) BY MOUTH DAILY. MAY TAKE AN EXTRA DOSE NEEDED FOR WEIGHT GAIN/EDEMA 100 tablet 3 02/17/20 24 Active NIFEdipine (Adalat CC) 30 mg ER tablet Take 1 tablet (30 mg total) by mouth daily. 90 tablet 5 02/24/20 24 Active Additional Information Patient not taking.Reported on 02/28/2024 atorvastatin (LIPITOR) 10 mg tablet take 1 tablet every day 90 tablet 3 04/21/19 24 024 Discontinued lisinopriL (PRINIVIL,ZES TRIL) 40 mg tablet take 1 tablet every day 90 tablet 3 04/21/19 24 024 Discontinued furosemide (LASIX) 20 mg tablet TAKE 1 TABLET (20 MG TOTAL) BY MOUTH DAILY. MAY TAKE AN EXTRA DOSE NEEDED FOR WEIGHT GAIN/EDEMA 100 tablet 3 04/28/19 24 024 Discontinued apixaban (Eliquis) 5 mg tablet Take 1 tablet (5 mg total) by mouth 2 (two) times a day. 200 tablet 3 12/10/19 24 024 Discontinued(Co st of medication) amLODIPine (Norvasc) 2.5 mg tablet Take 1 tablet (2.5 mg total) by mouth daily. 90 tablet 1 01/14/20 24 024 Discontinued Active Problems Problem Noted Date Diagnosed Date Atrial Fibrillation Paroxysmal 01/06/2022 Monitoring For Therapeutic Drug Therapy 01/07/20 Police Manager (Current) Anticoagulant Treatment 03/2021 Radiculopathy Lumbar Fifth [...] Grandmother trina danataly Obesity Paternal Grandmother trina ramos Asthma Son 1 janell alberto not sure Migraines Son 2 [place] Migraines Son 3 genesis Relation Name Status Comments Daughter 1 genesis alberto Daughter 2 Bre Mother abiel dahl Paternal Grandmother trina ramos Son 1 janell alberto Son 2 [place] Son 3 genesis Social History Smoking Status as of 03/09/2024 Tobacco Use Types Packs/Day Years Used Date Smoking Tobacco: Never Assessed [facility] Utilities Answer Date Recorded In the past 12 months has th e electric, gas, oil, or water company threatened to shut off services in your home? No 07/01/2023 Humiliation, Afraid, Rape, and Kick questionnair e Answer Date Recorded Within the last year, have y ou been afraid of your partner or ex-partner? No 12/28/2023 Within the last year, have y ou been humiliated or emotionally abused in other ways by your partner or ex-partner? No Within the last year, have y ou been kicked, hit, slapped, or otherwise physically hurt by your partner or ex-partner? No 12/28/2023 Within the last year, have y ou been raped or forced to have any kind of sexual activity by your partner or ex-partner? No 12/28/2023 Social Connection and Isolat ion Panel [NHANES] [...] PHQ-2 Score 0 04/27/2023 [facility] of Occupat ional [facility] - Occupational Stress [...] AM CDT Legal Sex Female 9:57 PM STORE FACILITY TECHNICIAN Gender Identity Female 09/24/2022 9:59 PM CDT Sexual Orientation Straight 12/19/2021 3: 32 AM CDT Last Filed Vital Signs Vital Sign Reading Time Taken Comments Blood Pressure 143/82 02/28/2024 4:01 PM STORE FACILITY TECHNICIAN Pulse 56 02/28/2024 4:01 PM STORE FACILITY TECHNICIAN regul ar Temperature 36.1 C (96.9 F) 02/14/2024 3:44 PM STORE FACILITY TECHNICIAN Respiratory Rate 16 11/06/2021 1:16 PM CDT Oxygen Saturation 98% 12/30/2021 1:38 PM CDT Inhaled Oxygen Concentration - - Weight 85.5 kg (188 lb 7.9 oz) 02/14/2024 3:44 P M STORE FACILITY TECHNICIAN Height 163 cm (5' 4.17) 12/28/2023 12:40 PM CDT Body Mass Index 32.18 12/28/2023 12:40 PM CDT Plan of Treatment Upcoming Encounters Date Type Department Care Team (Latest Contact Info) Description 03/10/2024 3:20 PM STORE FACILITY TECHNICIAN Appointment Department of Laboratory Medicine in [place], [place] [address] [place] [address] Patrick Erickson D.O. [address] [place] [phone] 03/10/2024 4:00 PM STORE FACILITY TECHNICIAN Anticoagulation Visit Department of Anticoagulation in [place], [place] [address] [place] [address] Patrick Erickson D.O. [address] [place] [phone] 05/15/2024 2:30 PM CDT Appointment Department of Laboratory Medicine in [place], [place] [address] [place] [phone] Patrick Erickson D.O. [address] [place] [phone] 05/15/2024 3:30 PM CDT Office Visit Department of Internal Medicine in [place], [place] [address] [phone] Patrick Erickson D.O. [address] [place] [phone] Procedures Procedure Name Priority Date/Time Associated Diagnosis Comments INR REFLEX, POCT, B Routine 03/02/2024 4:17 PM STORE FACILITY TECHNICIAN Atrial Fibrillation Paroxysmal (HCC) Monitoring For Therapeutic Drug Therapy Correction (Current) Anticoagulant Treatment INR REFLEX, POCT, B Routine 02/24/2024 9:08 AM STORE FACILITY TECHNICIAN Atrial Fibrillation Paroxysmal (HCC) Monitoring For Therapeutic Drug Therapy Correction (Current) Anticoagulant Treatment INR REFLEX, POCT, B Routine 02/18/2024 10:47 AM STORE FACILITY TECHNICIAN Hypertensive Heart And Chronic Kidney Disease With Heart Failure And Stage 1 To 4 Chronic Kidney Disease Or Unspecified Chronic Kidney Disease (HCC) Hyperlipidemia On Treatment Atrial Fibrillation Paroxysmal (HCC) Monitoring For Therapeutic Drug Therapy Police Manager (Current) Anticoagulant Treatment INR REFLEX, POCT, B Routine 02/10/2024 7:54 AM STORE FACILITY TECHNICIAN Hypertensive Heart And Chronic Kidney Disease With Heart Failure And Stage 1 To 4 Chronic Kidney Disease Or Unspecified Chronic Kidney Disease (HCC) Hyperlipidemia On Treatment Atrial Fibrillation Paroxysmal (HCC) Monitoring For Therapeutic Drug Therapy Police Manager (Current) Anticoagulant Treatment INR REFLEX, POCT, B Routine 01/31/2024 10:41 AM STORE FACILITY TECHNICIAN Hypertensive Heart And Chronic Kidney Disease With Heart Failure And Stage 1 To 4 Chronic Kidney Disease Or Unspecified Chronic Kidney Disease (HCC) Hyperlipidemia On Treatment Atrial Fibrillation Paroxysmal (HCC) Monitoring For Therapeutic Drug Therapy Police Manager (Current) Anticoagulant Treatment INR REFLEX, POCT, B Routine 01/27/2024 8:08 AM STORE FACILITY TECHNICIAN Hypertensive Heart And Chronic Kidney Disease With Heart Failure And Stage 1 To 4 Chronic Kidney Disease Or Unspecified Chronic Kidney Disease (HCC) Hyperlipidemia On Treatment Atrial Fibrillation Paroxysmal (HCC) Monitoring For Therapeutic Drug Therapy Police Manager (Current) Anticoagulant Treatment INR REFLEX, POCT, B Routine 01/13/2024 8:00 AM STORE FACILITY TECHNICIAN Hypertensive Heart And Chronic Kidney Disease With Heart Failure And Stage 1 To 4 Chronic Kidney Disease Or Unspecified Chronic Kidney Disease (HCC) Hyperlipidemia On Treatment Atrial Fibrillation Paroxysmal (HCC) Monitoring For Therapeutic Drug Therapy Police Manager (Current) Anticoagulant Treatment INR REFLEX, POCT, B Routine 01/06/2024 8:11 AM CDT Hypertensive Heart And Chronic Kidney Disease With Heart Failure And Stage 1 To 4 Chronic Kidney Disease Or Unspecified Chronic Kidney Disease (HCC) Hyperlipidemia On Treatment Atrial Fibrillation Paroxysmal (HCC) Monitoring For Therapeutic Drug Therapy Police Manager (Current) Anticoagulant Treatment INR REFLEX, POCT, B Routine 12/28/2023 2:43 PM CDT Hypertensive Heart And Chronic Kidney Disease With Heart Failure And Stage 1 To 4 Chronic Kidney Disease Or Unspecified Chronic Kidney Disease (HCC) Hyperlipidemia On Treatment Atrial Fibrillation Paroxysmal (HCC) Monitoring For Therapeutic Drug Therapy Police Manager (Current) Anticoagulant Treatment INR REFLEX, POCT, B Routine 12/24/2023 3:45 PM CDT Hypertensive Heart And Chronic Kidney Disease With Heart Failure And Stage 1 To 4 Chronic Kidney Disease Or Unspecified Chronic Kidney Disease (HCC) Hyperlipidemia On Treatment Atrial Fibrillation Paroxysmal (HCC) Monitoring For Therapeutic Drug Therapy Police Manager (Current) Anticoagulant Treatment BASIC METABOLIC PANEL, S/P Routine 12/24/2023 3:45 PM CDT 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 4 Chronic Kidney Disease Or Unspecified Chronic Kidney Disease (HCC) INR REFLEX, POCT, B Routine 12/20/2023 3:59 PM CDT Hypertensive Heart And Chronic Kidney Disease With Heart Failure And Stage 1 To 4 Chronic Kidney Disease Or Unspecified Chronic Kidney Disease (HCC) Hyperlipidemia On Treatment Atrial Fibrillation Paroxysmal (HCC) Monitoring For Therapeutic Drug Therapy Police Manager (Current) Anticoagulant Treatment COMPREHENSIVE METABOLIC PANEL, S/P [...] Paroxysmal (HCC) Monitoring For Therapeutic Drug Therapy Police Manager (Current) Anticoagulant Treatment EXTM HOME SARS CORONAVIRUS-2 [...] Paroxysmal (HCC) Monitoring For Therapeutic Drug Therapy Police Manager (Current) Anticoagulant Treatment INR REFLEX, POCT, B Routine 11/02/2023 2:58 PM CDT Hypertensive Heart And Chronic Kidney Disease With Heart Failure And Stage 1 To 4 Chronic Kidney Disease Or Unspecified Chronic Kidney Disease (HCC) Hyperlipidemia On Treatment Atrial Fibrillation Paroxysmal (HCC) Monitoring For Therapeutic Drug Therapy Police Manager (Current) Anticoagulant Treatment INR REFLEX, POCT, B Routine 10/28/2023 3:00 PM CDT Hypertensive Heart And Chronic Kidney Disease With Heart Failure And Stage 1 To 4 Chronic Kidney Disease Or Unspecified Chronic Kidney Disease (HCC) Hyperlipidemia On Treatment Atrial Fibrillation Paroxysmal (HCC) Monitoring For Therapeutic Drug Therapy Police Manager (Current) Anticoagulant Treatment INR REFLEX, POCT, B [...] Paroxysmal (HCC) Monitoring For Therapeutic Drug Therapy Police Manager (Current) Anticoagulant Treatment INR REFLEX, POCT, B Routine 09/14/2023 1:00 PM CDT 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 3a Glomerular Filtration Rate (GFR) 45 To 59 (HCC) Hyperlipidemia On Treatment Atrial Fibrillation Paroxysmal (HCC) Monitoring For Therapeutic Drug Therapy Police Manager (Current) Anticoagulant Treatment INR REFLEX, POCT, B [...] Paroxysmal (HCC) Monitoring For Therapeutic Drug Therapy Police Manager (Current) Anticoagulant Treatment INR REFLEX, POCT, B Routine 08/24/2023 9:50 AM CDT Hypertensive Heart With Heart Failure And Chronic Kidney Disease (CKD) Stage 3a Glomerular Filtration Rate (GFR) 45 To 59 (HCC) Hyperlipidemia On Treatment Atrial Fibrillation Paroxysmal (HCC) Monitoring For Therapeutic Drug Therapy Police Manager (Current) Anticoagulant Treatment INR REFLEX, POCT, B [...] On Treatment Monitoring For Therapeutic Drug Therapy Correction (Current) Anticoagulant Treatment LIPID PANEL, S Routine [...] Paroxysmal (HCC) Monitoring For Therapeutic Drug Therapy Police Manager (Current) Anticoagulant Treatment INR REFLEX, POCT, B [...] REFLEX, POCT, B Routine 05/07/2023 1:04 PM STORE FACILITY TECHNICIAN Hypertensive Heart With Heart Failure And Chronic Kidney Disease (CKD) Stage 3a Glomerular Filtration Rate (GFR) 45 To 59 (HCC) Hyperlipidemia On Treatment Atrial Fibrillation Paroxysmal (HCC) Monitoring For Therapeutic Drug Therapy Police Manager (Current) Anticoagulant Treatment INR REFLEX, POCT, B Routine 04/30/2023 12:42 PM STORE FACILITY TECHNICIAN Hypertensive Heart With Heart Failure And Chronic Kidney Disease (CKD) Stage 3a Glomerular Filtration Rate (GFR) 45 To 59 (HCC) Hyperlipidemia On Treatment Atrial Fibrillation Paroxysmal (HCC) Monitoring For Therapeutic Drug Therapy Correction (Current) Anticoagulant Treatment INR REFLEX, POCT, B Routine 04/02/2023 2:53 PM STORE FACILITY TECHNICIAN Hypertensive Heart With Heart Failure And Chronic Kidney Disease (CKD) Stage 3a Glomerular Filtration Rate (GFR) 45 To 59 (HCC) Hyperlipidemia On Treatment Atrial Fibrillation Paroxysmal (HCC) Monitoring For Therapeutic Drug Therapy Police Manager (Current) Anticoagulant Treatment INR REFLEX, POCT, B Routine 03/19/2023 3:19 PM STORE FACILITY TECHNICIAN Hypertensive Heart With Heart Failure And Chronic Kidney Disease (CKD) Stage 3a Glomerular Filtration Rate (GFR) 45 To 59 (HCC) Monitoring For Therapeutic Drug Therapy Atrial Fibrillation Paroxysmal (HCC) INR REFLEX, POCT, B Routine 03/12/2023 3:11 PM STORE FACILITY TECHNICIAN Atrial Fibrillation Paroxysmal (HCC) Monitoring For Therapeutic Drug Therapy Police Manager (Current) Anticoagulant Treatment INR REFLEX, POCT, B Routine 03/09/2023 2:21 PM STORE FACILITY TECHNICIAN Atrial Fibrillation Paroxysmal (HCC) Monitoring For Therapeutic Drug Therapy Police Manager (Current) Anticoagulant Treatment INR REFLEX, POCT, B Routine 03/05/2023 4:19 PM STORE FACILITY TECHNICIAN Atrial Fibrillation Paroxysmal (HCC) Monitoring For Therapeutic Drug Therapy Police Manager (Current) Anticoagulant Treatment INR REFLEX, POCT, B Routine 02/24/2023 5:02 PM STORE FACILITY TECHNICIAN Atrial Fibrillation Paroxysmal (HCC) Monitoring For Therapeutic Drug Therapy Police Manager (Current) Anticoagulant Treatment EXTM HOME SARS CORONAVIRUS-2 (COVID-19) ANTIGEN, V Routine 02/24/2023 12:58 PM STORE FACILITY TECHNICIAN INR REFLEX, POCT, B Routine 02/16/2023 10:12 AM STORE FACILITY TECHNICIAN Atrial Fibrillation Paroxysmal (HCC) Monitoring For Therapeutic Drug Therapy Correction (Current) Anticoagulant Treatment INR REFLEX, POCT, B Routine 02/02/2023 12:08 PM STORE FACILITY TECHNICIAN Atrial Fibrillation Paroxysmal (HCC) Monitoring For Therapeutic Drug Therapy Correction (Current) Anticoagulant Treatment INR REFLEX, POCT, B Routine 01/26/2023 9:30 AM STORE FACILITY TECHNICIAN Atrial Fibrillation Paroxysmal (HCC) Monitoring For Therapeutic Drug Therapy Correction (Current) Anticoagulant Treatment INR REFLEX, POCT, B Routine 12/15/2022 11:37 AM CDT Atrial Fibrillation Paroxysmal (HCC) Monitoring For Therapeutic Drug Therapy Police Manager (Current) Anticoagulant Treatment INR REFLEX, POCT, B Routine 11/17/2022 2:18 PM CDT Atrial Fibrillation Paroxysmal (HCC) Monitoring For Therapeutic Drug Therapy Police Manager (Current) Anticoagulant Treatment INR REFLEX, POCT, B [...] Paroxysmal (HCC) Monitoring For Therapeutic Drug Therapy Police Manager (Current) Anticoagulant Treatment BASIC METABOLIC PANEL, S/P Routine 10/12/2022 10:09 AM CDT Hypertensive Heart With Heart Failure And Chronic Kidney Disease (CKD) Stage 3a Glomerular Filtration Rate (GFR) 45 To 59 (HCC) INR REFLEX, POCT, B Routine 10/12/2022 10:02 AM CDT Atrial Fibrillation Paroxysmal (HCC) Monitoring For Therapeutic Drug Therapy Police Manager (Current) Anticoagulant Treatment NM URINALYSIS AUTO W MICRO Routine 10/12/2022 10:02 [...] Unspecified (HCC) Monitoring For Therapeutic Drug Therapy Correction (Current) Anticoagulant Treatment INR REFLEX, POCT, B Routine 08/10/2022 11:16 AM CDT Atrial Fibrillation Unspecified (HCC) Monitoring For Therapeutic Drug Therapy Correction (Current) Anticoagulant Treatment INR REFLEX, POCT, B Routine 08/10/2022 11:15 AM CDT INR REFLEX, POCT, B Routine 07/27/2022 3:15 PM CDT Atrial Fibrillation Unspecified (HCC) Monitoring For Therapeutic Drug Therapy Correction (Current) Anticoagulant Treatment INR REFLEX, POCT, B Routine 07/27/2022 3:14 PM CDT INR REFLEX, POCT, B Routine 06/29/2022 10:21 AM CDT INR REFLEX, POCT, B Routine 06/29/2022 10:21 AM CDT Atrial Fibrillation Unspecified Monitoring For Therapeutic Drug Therapy Police Manager (Current) Anticoagulant Treatment INR REFLEX, POCT, B Routine 06/19/2022 10:34 AM CDT Atrial Fibrillation Unspecified Monitoring For Therapeutic Drug Therapy Police Manager (Current) Anticoagulant Treatment INR REFLEX, POCT, B Routine 06/19/2022 10:32 AM CDT PROTHROMBIN TIME (PT), P Routine 06/15/2022 10:13 AM CDT INR REFLEX, POCT, B Routine 06/15/2022 10:09 AM CDT INR REFLEX, POCT, B Routine 06/15/2022 10:09 AM CDT Atrial Fibrillation Unspecified Monitoring For Therapeutic Drug Therapy Police Manager (Current) Anticoagulant Treatment INR REFLEX, POCT, B Routine 06/09/2022 10:16 AM CDT Atrial Fibrillation Unspecified Monitoring For Therapeutic Drug Therapy Correction (Current) Anticoagulant Treatment PROTHROMBIN TIME (PT), P Routine 06/09/2022 10:16 AM CDT INR REFLEX, POCT, B Routine 06/09/2022 10:09 AM CDT (TTE) 2D ECHO DOPPLER COLOR Routine 06/01/2022 8:09 AM CDT Cardiomyopathy Dilated (HCC) INR REFLEX, POCT, B Routine 05/12/2022 10:01 AM STORE FACILITY TECHNICIAN Atrial Fibrillation Unspecified Monitoring For Therapeutic Drug Therapy Police Manager (Current) Anticoagulant Treatment INR REFLEX, POCT, B Routine 05/12/2022 10:00 AM STORE FACILITY TECHNICIAN INR REFLEX, POCT, B Routine 04/28/2022 2:50 PM STORE FACILITY TECHNICIAN INR REFLEX, POCT, B Routine 04/28/2022 2:50 PM STORE FACILITY TECHNICIAN Atrial Fibrillation Unspecified Monitoring For Therapeutic Drug Therapy Correction (Current) Anticoagulant Treatment INR REFLEX, POCT, B Routine 04/21/2022 10:55 AM STORE FACILITY TECHNICIAN Atrial Fibrillation Unspecified Monitoring For Therapeutic Drug Therapy Police Manager (Current) Anticoagulant Treatment INR REFLEX, POCT, B Routine 04/21/2022 10:54 AM STORE FACILITY TECHNICIAN HOLTER MONITOR - IN CLINIC WOOL BUYER Routine 04/08/2022 2:11 AM STORE FACILITY TECHNICIAN Atrial Fibrillation Other Persistent (HCC) INR REFLEX, POCT, B Routine 04/07/2022 10:32 AM STORE FACILITY TECHNICIAN Atrial Fibrillation Unspecified Monitoring For Therapeutic Drug Therapy Police Manager (Current) Anticoagulant Treatment INR REFLEX, POCT, B Routine 04/07/2022 10:31 AM STORE FACILITY TECHNICIAN INR REFLEX, POCT, B Routine 03/31/2022 12:03 PM STORE FACILITY TECHNICIAN Atrial Fibrillation Unspecified Monitoring For Therapeutic Drug Therapy Correction (Current) Anticoagulant Treatment INR REFLEX, POCT, B Routine 03/31/2022 12:02 PM STORE FACILITY TECHNICIAN PROTHROMBIN TIME (PT), P Routine 03/24/2022 1:08 PM STORE FACILITY TECHNICIAN INR REFLEX, POCT, B Routine 03/24/2022 1:06 PM STORE FACILITY TECHNICIAN Atrial Fibrillation Unspecified Monitoring For Therapeutic Drug Therapy Police Manager (Current) Anticoagulant Treatment INR REFLEX, POCT, B Routine 03/24/2022 1:05 PM STORE FACILITY TECHNICIAN INR REFLEX, POCT, B Routine 03/16/2022 10:08 AM STORE FACILITY TECHNICIAN INR REFLEX, POCT, B Routine 03/16/2022 10:08 AM STORE FACILITY TECHNICIAN Atrial Fibrillation Unspecified Monitoring For Therapeutic Drug Therapy Correction (Current) Anticoagulant Treatment INR REFLEX, POCT, B Routine 03/06/2022 11:06 AM STORE FACILITY TECHNICIAN Atrial Fibrillation Unspecified Monitoring For Therapeutic Drug Therapy Police Manager (Current) Anticoagulant Treatment INR REFLEX, POCT, B Routine 03/06/2022 11:05 AM STORE FACILITY TECHNICIAN INR REFLEX, POCT, B Routine 02/20/2022 11:30 AM STORE FACILITY TECHNICIAN Atrial Fibrillation Unspecified Monitoring For Therapeutic Drug Therapy Correction (Current) Anticoagulant Treatment INR REFLEX, POCT, B Routine 02/20/2022 11:29 AM STORE FACILITY TECHNICIAN INR REFLEX, POCT, B Routine 02/13/2022 11:36 AM STORE FACILITY TECHNICIAN Atrial Fibrillation Unspecified Monitoring For Therapeutic Drug Therapy Police Manager (Current) Anticoagulant Treatment INR REFLEX, POCT, B Routine 02/13/2022 11:35 AM STORE FACILITY TECHNICIAN INR REFLEX, POCT, B Routine 02/06/2022 2:50 PM STORE FACILITY TECHNICIAN INR REFLEX, POCT, B Routine 02/06/2022 2:50 PM STORE FACILITY TECHNICIAN Atrial Fibrillation Unspecified Monitoring For Therapeutic Drug Therapy Police Manager (Current) Anticoagulant Treatment INR REFLEX, POCT, B Routine 02/02/2022 12:15 PM STORE FACILITY TECHNICIAN INR REFLEX, POCT, B Routine 02/02/2022 12:15 PM STORE FACILITY TECHNICIAN Atrial Fibrillation Unspecified Monitoring For Therapeutic Drug Therapy Police Manager (Current) Anticoagulant Treatment INR REFLEX, POCT, B Routine 01/23/2022 3:58 PM STORE FACILITY TECHNICIAN Atrial Fibrillation Unspecified Monitoring For Therapeutic Drug Therapy Correction (Current) Anticoagulant Treatment INR REFLEX, POCT, B Routine 01/23/2022 3:57 PM STORE FACILITY TECHNICIAN INR REFLEX, POCT, B Routine 01/15/2022 11:43 AM STORE FACILITY TECHNICIAN Atrial Fibrillation Unspecified Monitoring For Therapeutic Drug Therapy Correction (Current) Anticoagulant Treatment INR REFLEX, POCT, B Routine 01/15/2022 11:42 AM STORE FACILITY TECHNICIAN INR REFLEX, POCT, B Routine 01/12/2022 2:19 PM STORE FACILITY TECHNICIAN INR REFLEX, POCT, B Routine 01/12/2022 2:19 PM STORE FACILITY TECHNICIAN Atrial Fibrillation Unspecified Monitoring For Therapeutic Drug Therapy Police Manager (Current) Anticoagulant Treatment ECG Routine 12/30/2021 2:24 [...] 59 (HCC) HOLTER MONITOR - IN CLINIC WOOL BUYER Routine 05/27/2020 3:59 PM CDT Cardiomyopathy Dilated (HCC) MR LUMBAR SPINE WITHOUT IV CONTRAST RAD - Routine (most inpatients and all outpatients) 05/17/2020 11:41 AM STORE FACILITY TECHNICIAN Pain Low Back LIPID PANEL, S Routine 05/17/2020 10:53 AM STORE FACILITY TECHNICIAN Cardiomyopathy Dilated (HCC) THYROID-STIMULATING HORMONE-SENSITIVE (S-TSH) Routine 05/17/2020 10:53 AM STORE FACILITY TECHNICIAN Cardiomyopathy Dilated (HCC) BASIC METABOLIC PANEL, S/P Routine 05/17/2020 10:53 AM STORE FACILITY TECHNICIAN Cardiomyopathy Dilated (HCC) CBC WITH DIFFERENTIAL, B Routine 05/17/2020 10:53 AM STORE FACILITY TECHNICIAN Cardiomyopathy Dilated (HCC) SARS CORONAVIRUS-2 RNA, V [...] ELECTROLYTE PANEL, S Routine 02/11/2015 9:35 AM STORE FACILITY TECHNICIAN BUN (BLOOD UREA NITROGEN), S/P Routine 02/11/2015 9:35 AM STORE FACILITY TECHNICIAN CREATININE WITH EGFR, S/P Routine 02/11/2015 9:35 AM STORE FACILITY TECHNICIAN NT-PRO B-TYPE NATRIURETIC PEPTIDE (BNP), S Routine [...] CDT Results * INR Reflex, POCT, Blood (03/02/2024 4:17 PM STORE FACILITY TECHNICIAN) Only the most recent of96 resultswithin the time period is included. INR Reflex, POCT, B 3.5 03/02/2024 4:16 PM STORE FACILITY TECHNICIAN FB60 Comment: ----ADDITIONAL INFORMATION---- Standard intensity warfarin therapeutic range: 2.0 to 3.0 High intensity warfarin therapeutic range: 2.5 to 3.5 Blood (Blood, Capillary) 03/02/2024 4:17 PM STORE FACILITY TECHNICIAN 03/02/2024 4:16 PM STORE FACILITY TECHNICIAN us Patrick J Hellweg D.O. LAB POCT ORDERABLES - CARLOS ENRIQUE CE Final Result Performing Organization Address City/[facility]/ZIP Co de Phone Number [facility] [address] [place] [address], [facility] [id number] [facility] [place] [address] [place] [address] * Basic Metabolic Panel (12/24/2023 3:45 PM CDT) Only the most recent of7 resultswithin the time period is included. Potassium, P 4.0 3.6 - 5.2 mmol/L 12/24/2023 6:27 PM CDT OWAT Sodium, P 140 135 - 145 mmol/L 12/24/2023 6:27 PM CDT OWAT Chloride, P 102 98 - 107 mmol/L 12/24/2023 6:27 PM CDT OWAT Bicarbonate, P 26 22 - 29 mmol/L 12/24/2023 6:27 PM CDT OWAT Anion Gap, P 12 7 - 15 12/24/2023 6:27 PM CDT OWAT BUN (Blood Urea Nitrogen), P 18 6 - 21 mg/dL 12/24/2023 6:27 PM CDT OWAT Creatinine 0.83 0.59 - 1.04 mg/dL 12/24/2023 6:27 PM CDT OWAT Estimated GFR (eGFR) 73 >=60 mL/min/BSA 12/24/2023 6:27 PM CDT OWAT Comment: Estimated GFR calculated using the 2020 CKD_EPI creatinine equation. Calcium, Total, P 9.2 8.8 - 10.2 mg/dL 12/24/2023 6:27 PM CDT OWAT Glucose, P 122 70 - 140 mg/dL 12/24/2023 6:27 PM CDT OWAT Blood (Blood, Venous) 12/24/2023 3:45 PM CDT 12/24/2023 6:05 PM CDT us Patrick Palomares.O. LAB BLOOD ADD-ON Final Res ult [facility] [address] [place] [address], [place] OWAT [facility] [place] [address] [place] [address] * (ABNORMAL) Comprehensive Metabolic Panel (12/15/2023 5:00 [...] ADD-ON Final Res ult Performing Organization Address City/[facility]/ZIP Co de Phone Number [facility] [address] [place] [address], [facility] OWAT [facility] [place] [address] [place] [address] * (ABNORMAL) Prothrombin Time (PT) (12/03/2023 3:01 PM CDT) Only the most recent of5 resultswithin the time period is included. Prothrombin Time, P 60.6(H) 9.4 - 12.5 sec 12/03/2023 6:26 PM CDT OWAT INR 5.1(CH) 0.9 - 1.1 12/03/2023 6:26 PM CDT OWAT Comment: ----ADDITIONAL INFORMATION---- Standard intensity warfarin therapeutic range: 2.0 to 3.0 High intensity warfarin therapeutic range: 2.5 to 3.5 Blood 12/03/2023 3:01 PM CDT 12/03/2023 5:54 PM CDT us Patrick Erickson D.O. LAB BLOOD ADD-ON Final Res ult Performing Organization Address [facility]/ZIP Co de Phone Number [facility] [address] [place] [address], [facility] OWAT [facility] [place] [address] [place] [address] * (ABNORMAL) EXT Home SARS Coronavirus-2 (COVID-19) Antigen (11/26/2023 6:00 PM CDT) Only the most recent of2 resultswithin the time period is included. EXT Home SARS-CoV-2 Antigen Presumptive Positive(A) Presumptive Negative OTHER (SPECIFY IN MEDICAL APPOINTMENT SCHEDULER) Swab 11/26/2023 6:00 PM CDT us Historical Provider LAB MICROBIOLOGY - GENERAL O RDERABLES Final Result OTHER (SPECIFY IN MEDICAL APPOINTMENT SCHEDULER) N/A * Lipid Panel (07/06/2023 8:46 AM [...] D.O. LAB BLOOD ADD-ON Final Res ult [facility] [address] [place] [address], [place] OW[place] [facility] [place] [address] [place] [address] * (ABNORMAL) CBC with Differential, Blood (07/06/2023 [...] ADD-ON Final Res ult Performing Organization Address [facility] Co de Phone Number [facility] [address] [place] [address], [place] FB60 [facility] in [place] [address] [place] [address] * (ABNORMAL) Glucose, Fasting (07/06/2023 8:46 AM CDT) Glucose, P 131(H) 70 - 100 mg/dL 07/06/2023 2:02 PM CDT OWAT Last Intake 13 hr 07/06/2023 1:09 PM CDT OWAT Blood (Blood, Venous) 07/06/2023 8:46 AM CDT 07/06/2023 1:09 PM CDT us Patrick Erickson D.O. LAB BLOOD NON ADD-ON Final Result Performing Organization Address [facility] de Phone Number [facility] [address] [place] [address], [place] OW[place] [facility] [place] [address] [place] [address] * ECG 12 Lead (06/22/2023 10:27 AM CDT) Only the most recent of3 resultswithin the time period is included. Ventricular Rate ECG/Min 43 BPM MUSE NM Interval 150 ms MUSE QRSD Interval 110 ms MUSE QT Interval 500 ms MUSE QTC Interval 422 ms MUSE P [place] 56 degrees MUSE R [place] 6 degrees MUSE T Wave [place] 269 degrees MUSE 06/22/2023 10:2 7 AM [...] changes have occurred Reviewed by ASHIA Romero Robreto Dumont APRN, C.N.P. ECG ORDERABLES Final Result [...] 8.0 10/12/2022 10:32 AM CDT FB60 Specific [place] 1.010 1.001 - 1.035 10/12/2022 10:32 AM CDT FB60 Urobilinogen 0.2 0.2 - 1.0 mg/dL 10/12/2022 10:32 AM CDT FB60 Urine (Urine, Midstream) 10/12/2022 10:02 AM CDT 10/12/2022 10:19 AM CDT Soheila Zapata P.A.-C., M.S. LAB URINE ORDERA BLES Final Result Performing Organization Address [facility] Co de Phone Number [address] FB[address] [place] [address] * (ABNORMAL) Microscopic Manual (10/12/2022 10:02 AM [...] ORDERA BLES Final Result Performing Organization Address City/[facility] Co de Phone Number [address] FB[address] [place] [address] * (ABNORMAL) Albumin, Random, Urine (10/12/2022 10:02 [...] M.S. LAB URINE ORDERA BLES Final Result [facility] [facility] [address] [place] [address], [place] OWAT [facility] [place] [address] [place] [address] * (TTE) 2D ECHO DOPPLER COLOR (06/01/2022 8:09 AM CDT) Pathologist [facility] Ejection Fraction 48 MC CV EIMS Mid-Ascending [...] TAPSE 17 MC CV EIMS Tricuspid Annular S 0.09 MC CV EIMS TR Vmax 2.19 [...] chamber size. Abnormal left ventricular geometry with eccentric left ventricular hypertrophy. Calculated 2-D linear left ventricular ejection fraction 48%. Left ventricular volumes were performed but not reported based on instructor pilot's judgment. Mild generalized left ventricular hypokinesis. Normal [...] to exclude thrombus in this location. No pericardial effusion. Prominent anterior epicardial fat layer. For [...] Abnormal left ventricular geometry with eccentric left ventricular hypertrophy, normal filling pressure. 6. No hemodynamically significant valvular heart disease. 7. Normal inferior vena cava size with normal inspiratory collapse (>50%). 8. No pericardial effusion. 9. Despite minimal [...] were performed but not reported based on instructor pilot'sjudgment. Mild generalized left ventricular hypokinesis. Normal leftventricular [...] the complete report, see the Order-Level Documents. us Roberto Dumont APRN C.N.PHowie CV ECHO PROCEDURES Fi nal Result * HOLTER MONITOR - IN CLINIC WOOL BUYER (04/08/2022 2:11 AM STORE FACILITY TECHNICIAN) Only the most recent of2 resultswithin the [...] Duration 0 duration INFOBION IC MOME AF Galva 0 percent INFOBIONIC MOME Symptom Count 1 count INFOBI ONIC MOME 04/07/2022 10:3 2 AM STORE FACILITY TECHNICIAN Narrative INFOBIONIC MOME - 04/10/2022 9:40 AM STORE FACILITY TECHNICIAN [place] 1. The basic rhythm was sinus with [...] max heart rate of 124 bpm. Some of these are possible for brief runs [...] were noted in or around these events. Parasitology Teacher: Smita Venegas/956 Fellow: Bradly Davenport MD Procedure Note Rachana Silva M.D., Ph.D. - 04/10/2022 [place] 1. The basic rhythm was sinus with [...] bigeminywere noted in or around these events. Parasitology Teacher: Smita Venegas/956 Fellow: Bradly Davenport MD Roberto Dumont APRN, C.N.P. CV CARDIAC SERVICES P ROCEDURES Edited Result - Final INFOBIONIC MOME NA * FL LUMBAR SPINE TRANSFORAMINAL EPIDURAL INJECTION LEFT (12/25/2021 3:40 PM CDT) Narrative [address] - 12/25/2021 3:15 PM CDT Eder Torres M.D. 12/25/2021 4:01 PM FL Lumbar Spine Transforaminal Epidural Injection [...] injectate (mg): dexamethasone 10 mg PROCEDURE DETAILS Transforaminal epidural injection - lumbar: After identifying [...] 2% lidocaine was injected through the needle. After an appropriate period of observation, a directed neurological exam was performed which revealed no new neurologic deficits. Next, the injectate was injected slowly and incrementally into the epidural space. Following the injection the needle was withdrawn flushed with lidocaine as it was fully extracted. The patient tolerated the procedure well and there were no apparent complications. After appropriate observation, the patient was dismissed in good condition under their own power. ADDITIONAL PROCEDURE COMMENTS Dexamethasone (10 mg/ml): 1cc [...] utilized as applicable for the procedure: yes Site preparation: chlorhexidine SEDATION / ANESTHESIA Anesthesia method: local infiltration Local infiltrate type: lidocaine Eder Torres M.D. IMG FLUOROSCOPY PROCEDUR ES Final Result [facility] * BI Breast Screening Bilateral with Tomosynthesis (12/09/2021 3:16 PM CDT) Anatomical Region Laterality Modality Breast, Breast Imaging RST L OS, Breast Imaging [facility], Breast Imaging [facility] Bilateral Mammography 12/09/2021 4:58 PM CDT Impressions 12/09/2021 4:59 PM CDT Negative. RECOMMENDATION: Annual Screening Mammogram ASSESSMENT: BI-RADS: 1: Negative. Narrative 12/09/2021 4:59 PM CDT EXAM: BI BREAST SCREENING BILATERAL WITH TOMOSYNTHESIS Current study was evaluated with a Computer Aided Detection (CAD) system. INDICATION: Screening mammogram. COMPARISON: Prior exam(s) were available and reviewed for comparison. DENSITY: b. There are scattered areas of fibroglandular density. FINDINGS: No mammographic findings of malignancy. Procedure Note Roberto [...] Negative. Soheila Zapata P.A.-C., M.S. IMG BI PROCEDURE S Final Result * S-TSH (Thyroid-Stimulating Hormone - Sensitive) (11/06/2021 2:48 PM CDT) Only the most recent of6 resultswithin the time period is included. TSH, Sensitive 2.3 0.3 - 4.2 mIU/L 11/06/2021 3:30 PM CDT OWAT Blood (Blood, Venous) 11/06/2021 2:48 PM CDT 11/06/2021 2:52 PM CDT Soheila Zapata P.A.-C., M.S. LAB BLOOD ADD-ON Final Result [facility] [address] [place] [id number], [facility] [place] [address] [place] [address] * Sodium (11/06/2021 2:48 PM CDT) Only the most recent of3 resultswithin the time period is included. Sodium, P 142 135 - 145 mmol/L 11/06/2021 3:22 PM CDT OWAT Blood (Blood, Venous) 11/06/2021 2:48 PM CDT 11/06/2021 2:52 PM CDT Soheila Zapata P.A.-C., M.S. LAB BLOOD ADD-ON Final Result [facility] [address] [place] [address], [facility] [place] [address] [place] [address] * Potassium (11/06/2021 2:48 PM CDT) Only the most recent of5 resultswithin the time period is included. Potassium, P 4.2 3.6 - 5.2 mmol/L 11/06/2021 3:22 PM CDT OW Blood (Blood, Venous) 11/06/2021 2:48 PM CDT 11/06/2021 2:52 PM CDT us Soheila Zapata P.A.-C., M.S. LAB BLOOD ADD-ON Final Result Performing Organization Address City/[facility] Co de Phone Number [facility] [address] [place] [address], [facility] OWAT [facility] [place] [address] [place] [address] * (ABNORMAL) Hemoglobin A1c (11/06/2021 2:48 PM [...] BLOOD ADD-ON Final Result Performing Organization Address City/[facility]/ZIP Co de Phone Number [facility] [address] [place] [address], [facility] OWAT [facility] [place] [address] [place] [address] * (ABNORMAL) Creatinine with Estimated GFR (11/06/2021 [...] P.A.-C., M.S. LAB BLOOD ADD-ON Final Result [facility] [address] [place] [address], [facility] [place] [address] [place] [address] * MR Lumbar Spine without IV Contrast (05/17/2020 11:41 AM STORE FACILITY TECHNICIAN) Anatomical Region Laterality Modality Lumbar Spine, Neuroradiology RST LOS, Neuroradiology ARZ LOS, Neuroradiology FLA LOS N/A Magnetic Resonance 05/17/2020 12:5 1 PM STORE FACILITY TECHNICIAN Impressions 05/17/2020 1:09 PM STORE FACILITY TECHNICIAN 1. Degenerative spondylosis lumbar spine, as detailed, including essentially severe narrowing of the spinal canal at L4-L5. 2. A left-sided disc extrusion/protrusion at L5-S1 could result in L5 radicular symptoms. 3. Incidental imaging of a 8.6 cm cyst in the spleen probably representing sequela of remote injury or inflammatory insult. Narrative 05/17/2020 1:09 PM STORE FACILITY TECHNICIAN EXAM: MR LUMBAR SPINE WITHOUT IV CONTRAST COMPARISON: Lumbar radiographs 07/19/2017. FINDINGS: T12-L1: No spinal canal or neural foraminal narrowing. Minimal disc bulge. L1-2: No spinal canal or neural foraminal [...] perifacet edema is on the left. Alignment: As above. Bone Marrow: Round partially T1 hyperintense structures at the bodies of L3, L4, and L5 measuring which are compatible with benign vertebral hemangiomata. Conus: Normal termination Extra-spinal Findings: Partially imaged 8.6 cm cyst with a few internal septations is best seen on aquatics director imaging (series 1, images 15-18). This is probably benign and may represent sequela of remote injury or inflammatory insult. Probable cysts at the right kidney with the largest measuring 1.3 cm. For the purpose of this report, there are 24 presacral vertebra and 5 lumbar type vertebral bodies are assumed. Close radiographic correlation recommended prior to any spinal [...] but does not compress the exiting left [id number] root (series 5, image 2-4). No right [...] few internal septations is best seen on aquatics director imaging (series 1, images 15-18). Thisis probably [...] disc extrusion/protrusion at L5-S1 could result in [id number] symptoms. 3. Incidental imaging of a 8.6 cm cyst in the spleen probablyrepresenting sequela of remote injury or inflammatory insult. Butch Velazquez M.D. [facility] PROCEDURES Final Result * SARS Coronavirus-2 [...] is performed using the Aptima SARS-CoV-2 assay ([employer] which has received Emergency Use Authorization (EUA) by the U.S. Food and Drug Administration. Fact sheets for this Emergency Use Authorization (EUA) assay can be found at the following links: For Healthcare Providers: https://www.fda.gov/media/759233/download For Patients: https://www.fda.gov/media/415640/download Varies (Nasopharynx) 11/25/2019 1:05 PM CDT 11/25/2019 5:08 PM CDT us Patrick Erickson D.O. LAB MICROBIOLOGY - GENERAL ORDERABLES Final Result Performing Organization Address [facility] Co de Phone Number [facility] [address] [place] [address], [facility] MKTO [facility] [place] [address] [place] [address] * Hemoglobin (12/28/2017 12:20 PM CDT) Pathologist [facility] Hemoglobin 12.9 11.6 - 15.0 g/dL 12/28/2017 12:36 PM CDT [facility] Blood (Blood, Venous) 12/28/2017 12:20 PM CDT 12/28/2017 12:34 PM CDT us Tariq Estrella M.D. LAB BLOOD ADD-ON Final Res ult [facility] [address] [place] [address], [facility] * (TTE) 2D ECHO DOPPLER COLOR [...] TAPSE 20 MC CV EIMS Tricuspid Annular S 0.09 MC CV EIMS TR Vmax 2.40 [...] Result Tariq Estrella M.D. CV ECHO PROCEDURES Final [...] Malalignment. Bayron Fernandez M.D. IM DIAGNOSTIC IMAGING [facility] Final Result * CBC without Differential (06/30/2017 8:20 AM CDT) Only the most recent of2 resultswithin the time period is included. Hemoglobin 12.5 11.6 - 15.0 g/dL 06/30/2017 8:40 AM CDT [facility] Hematocrit 39.5 35.5 - 44.9 % 06/30/2017 8:40 AM CDT [facility] Erythrocytes 4.46 3.92 - 5.13 x10(12)/L 06/30/2017 8:40 AM CDT [facility] MCV 88.6 78.2 - 97.9 fL 06/30/2017 8:40 AM CDT [facility] RBC Distrib Width 13.6 12.2 - 16.1 % 06/30/2017 8:40 AM CDT [facility] Platelet Count 174 157 - 371 x10(9)/L 06/30/2017 8:40 AM CDT [facility] Leukocytes 6.7 3.4 - 9.6 x10(9)/L 06/30/2017 8:40 AM CDT [facility] Blood 06/30/2017 8:20 AM CDT 06/30/2017 8:36 AM CDT Tariq Estrella M.D. LAB BLOOD ADD-ON Final Res ult Performing Organization Address City/[facility]/ZIP Co de Phone Number [facility] [address] * BUN (Blood Urea Nitrogen) (06/30/2017 8:20 AM CDT) Only the most recent of5 resultswithin the time period is included. BUN (Blood Urea Nitrogen), S 15 6 - 21 mg/dL 06/30/2017 11:08 AM CDT [facility] Blood 06/30/2017 8:20 AM CDT 06/30/2017 8:36 AM CDT us Tariq Estrella M.D. LAB BLOOD ADD-ON Final Res ult [facility] [address] [place] [address], [facility] * Automated Differential (08/17/2016 9:54 AM [...] ADD-ON Final Resul t Performing Organization Address [facility] de Phone Number POWERCHART * ALT (Alanine Aminotransferase) (07/09/2016 10:59 AM CDT) Alanine Amniotransferas e, LD 16 7 - 45 UNITL POWERCHART Blood 07/09/2016 10:5 9 AM CDT Tariq Estrella M.D. LAB BLOOD ADD-ON Final Res ult Performing Organization Address [facility] Phone Number POWERCHART * AST (Aspartate Aminotransferase) (07/09/2016 10:59 AM CDT) Aspartate Aminotransferase (AST), S 16 8 - 43 UNITL POWERCHART Blood 07/09/2016 10:5 9 AM CDT Tariq Estrella M.D. LAB BLOOD ADD-ON Final Res ult Performing Organization Address [facility] Phone Number POWERCHART * Electrolyte Panel (07/01/2016 [...] ADD-ON Final Res ult Performing Organization Address [facility] de Phone Number POWERCHART * ECHOCARDIOLOGY IMAGE EXAM (06/24/2016 9:21 AM CDT) Only the most recent of4 resultswithin the time period is included. Anatomical Region Laterality Modality Other 06/24/2016 9:21 AM CDT Addenda Addendum by ProviderDarin M.D. on 06/24/2016 9:21 AM CDT ECHO^^^MCR Non-Radiology Image 06/24/2016 09:21:00 Historical Provider IMG NON RAD IMAGING PROCEDUR ES Final Result * Echo Transthoracic (TTE) (06/24/2016 9:16 AM CDT) Anatomical Region Laterality Modality Echocardiography 06/24/2016 9:16 AM CDT [facility] Provider CV ECHO PROCEDURES Final Res ult * Echo Transthoracic (TTE) (06/13/2015 7:57 AM CDT) Anatomical Region Laterality Modality Echocardiography 06/13/2015 7:57 AM CDT [facility] Provider CV ECHO PROCEDURES Final Res ult [...] and 72% for acute congestive heart failure. Adults <50 years: NT-proBNP values greater than 450 pg/mL are consistent with CHF. Adults 50-75 years: A diagnostic NT-proBNP cutoff of 900 pg/mL has been suggested in the absence of renal failure. Adults >75 years: A diagnostic NT-proBNP cutoff of 1800 pg/mL has been suggested in the absence of renal failure. Blood 12/05/2014 9:18 AM CDT us Tariq Estrella M.D. LAB BLOOD ADD-ON Final Res ult POWERCHART * Echo Transthoracic (TTE) (12/05/2014 8:09 AM CDT) Anatomical Region Laterality Modality Echocardiography 12/05/2014 8:09 AM CDT us Historical Provider CV ECHO PROCEDURES Final Res ult * T3 (Triiodothyronine), Free (08/29/2014 9:34 AM CDT) T3 (Triiodothyronine ), Free, S 2.6 2.0 - 3.5 PGML POWERCHART Comment: Test Performed by: [place] [address] Title I Math Tutor: Raúl Loyola II, M.D., Ph.D. Blood 08/29/2014 9:34 AM CDT us Braulio Simmons M.D. LAB BLOOD ADD-ON Final Result POWERCHART * T4 (Thyroxine), Free (08/29/2014 9:34 AM CDT) T4 (Thyroxine), Free, S 0.92 0.90 - 1.70 NGDL POWERCHART Blood 08/29/2014 9:34 AM CDT us Braulio Simmons M.D. LAB BLOOD ADD-ON Final Result POWERCHART * Ferritin (08/15/2014 7:52 AM CDT) Ferritin, S 42.8 11.0 - 307.0 NGML POWERCHART Blood 08/15/2014 7:52 AM CDT us Tariq Estrella M.D. LAB BLOOD ADD-ON Final Res ult POWERCHART * Echo Transthoracic (TTE) (08/03/2014 9:15 AM CDT) Anatomical Region Laterality Modality Echocardiography 08/03/2014 9:15 AM CDT [facility] Provider CV ECHO PROCEDURES Edited Re sult [...] pulmonary edema or interstitial infection. Keri George(R), R.T.(MR) IMG DIAGNOSTIC IMAGING PROCEDURES Edited Result - Final * Troponin I (08/01/2014 4:09 PM CDT) Troponin I, S see report 0 - 0 NGML POWERCHART Blood 08/01/2014 4:09 PM CDT us Bayron Fernandez M.D. LAB BLOOD NON ADD-ON Final R esult POWERCHART * (ABNORMAL) D-Dimer (08/01/2014 4:09 PM CDT) D-Dimer, P 0.43(H) 0.00 - 0.40 [id number] POWERCHART Blood 08/01/2014 4:09 PM CDT us Bayron Fernandez M.D. LAB BLOOD ADD-ON Final Resul t Performing Organization Address City/[facility]/ZIP Co de Phone Number POWERCHART Visit Diagnoses Diagnosis Start Date Failure [...] (HCC) 12/30/2021 Atrial Fibrillation Unspecified (HCC) 01/06/2022 Police Manager (Current) Anticoagulant Treatment 01/06/2022 Atrial Fibrillation Unspecified (HCC) 01/07/2022 Monitoring For Therapeutic Drug Therapy 01/07/2022 Correction (Current) Anticoagulant Treatment 01/07/2022 Atrial Fibrillation Unspecified (HCC) 01/12/2022 Monitoring For Therapeutic Drug Therapy 01/12/2022 Police Manager (Current) Anticoagulant Treatment 01/12/2022 Atrial Fibrillation Unspecified (HCC) 01/12/2022 Monitoring For Therapeutic Drug Therapy 01/12/2022 Police Manager (Current) Anticoagulant Treatment 01/12/2022 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 01/14/2022 Radiculopathy Lumbosacral 01/14/2022 Atrial Fibrillation Unspecified (HCC) 01/15/2022 Monitoring For Therapeutic Drug Therapy 01/15/2022 Correction (Current) Anticoagulant Treatment 01/15/2022 Atrial Fibrillation Unspecified (HCC) 01/15/2022 Monitoring For Therapeutic Drug Therapy 01/15/2022 Correction (Current) Anticoagulant Treatment 01/15/2022 Atrial Fibrillation Unspecified (HCC) 01/16/2022 Monitoring For Therapeutic Drug Therapy 01/16/2022 Police Manager (Current) Anticoagulant Treatment 01/16/2022 Atrial Fibrillation Unspecified (HCC) 01/23/2022 Monitoring For Therapeutic Drug Therapy 01/23/2022 Police Manager (Current) Anticoagulant Treatment 01/23/2022 Atrial Fibrillation Unspecified (HCC) 01/23/2022 Monitoring For Therapeutic Drug Therapy 01/23/2022 Police Manager (Current) Anticoagulant Treatment 01/23/2022 Atrial Fibrillation Unspecified (HCC) 02/02/2022 Monitoring For Therapeutic Drug Therapy 02/02/2022 Correction (Current) Anticoagulant Treatment 02/02/2022 Atrial Fibrillation Unspecified (HCC) 02/02/2022 Monitoring For Therapeutic Drug Therapy 02/02/2022 Correction (Current) Anticoagulant Treatment 02/02/2022 Atrial Fibrillation Unspecified (HCC) 02/03/2022 Monitoring For Therapeutic Drug Therapy 02/03/2022 Police Manager (Current) Anticoagulant Treatment 02/03/2022 Atrial Fibrillation Unspecified (HCC) 02/06/2022 Monitoring For Therapeutic Drug Therapy 02/06/2022 Police Manager (Current) Anticoagulant Treatment 02/06/2022 Atrial Fibrillation Unspecified (HCC) 02/09/2022 Monitoring For Therapeutic Drug Therapy 02/09/2022 Correction (Current) Anticoagulant Treatment 02/09/2022 Atrial Fibrillation Unspecified (HCC) 02/13/2022 Monitoring For Therapeutic Drug Therapy 02/13/2022 Correction (Current) Anticoagulant Treatment 02/13/2022 Atrial Fibrillation Unspecified (HCC) 02/13/2022 Monitoring For Therapeutic Drug Therapy 02/13/2022 Police Manager (Current) Anticoagulant Treatment 02/13/2022 Atrial Fibrillation Unspecified (HCC) 02/20/2022 Monitoring For Therapeutic Drug Therapy 02/20/2022 Police Manager (Current) Anticoagulant Treatment 02/20/2022 Atrial Fibrillation Unspecified (HCC) 02/20/2022 Monitoring For Therapeutic Drug Therapy 02/20/2022 Police Manager (Current) Anticoagulant Treatment 02/20/2022 Atrial Fibrillation Unspecified (HCC) 03/06/2022 Monitoring For Therapeutic Drug Therapy 03/06/2022 Correction (Current) Anticoagulant Treatment 03/06/2022 Atrial Fibrillation Unspecified (HCC) 03/06/2022 Monitoring For Therapeutic Drug Therapy 03/06/2022 Police Manager (Current) Anticoagulant Treatment 03/06/2022 Atrial Fibrillation Unspecified (HCC) 03/16/2022 Monitoring For Therapeutic Drug Therapy 03/16/2022 Correction (Current) Anticoagulant Treatment 03/16/2022 Atrial Fibrillation Unspecified (HCC) 03/16/2022 Monitoring For Therapeutic Drug Therapy 03/16/2022 Correction (Current) Anticoagulant Treatment 03/16/2022 Atrial Fibrillation Unspecified (HCC) 03/24/2022 Monitoring For Therapeutic Drug Therapy 03/24/2022 Police Manager (Current) Anticoagulant Treatment 03/24/2022 Atrial Fibrillation Unspecified (HCC) 03/24/2022 Monitoring For Therapeutic Drug Therapy 03/24/2022 Police Manager (Current) Anticoagulant Treatment 03/24/2022 Atrial Fibrillation Unspecified (HCC) 03/27/2022 Monitoring For Therapeutic Drug Therapy 03/27/2022 Police Manager (Current) Anticoagulant Treatment 03/27/2022 Atrial Fibrillation Unspecified (HCC) 03/31/2022 Monitoring For Therapeutic Drug Therapy 03/31/2022 Police Manager (Current) Anticoagulant Treatment 03/31/2022 Atrial Fibrillation Unspecified (HCC) 03/31/2022 Monitoring For Therapeutic Drug Therapy 03/31/2022 Correction (Current) Anticoagulant Treatment 03/31/2022 Atrial Fibrillation Unspecified (HCC) 04/07/2022 Monitoring For Therapeutic Drug Therapy 04/07/2022 Police Manager (Current) Anticoagulant Treatment 04/07/2022 Atrial Fibrillation Unspecified (HCC) 04/07/2022 Monitoring For Therapeutic Drug Therapy 04/07/2022 Correction (Current) Anticoagulant Treatment 04/07/2022 Atrial Fibrillation Other Persistent (HCC) 04/07/2022 Atrial Fibrillation Unspecified (HCC) 04/21/2022 Atrial Fibrillation Unspecified (HCC) 04/21/2022 Monitoring For Therapeutic Drug Therapy 04/21/2022 Correction (Current) Anticoagulant Treatment 04/21/2022 Atrial Fibrillation Unspecified (HCC) 04/21/2022 Monitoring For Therapeutic Drug Therapy 04/21/2022 Correction (Current) Anticoagulant Treatment 04/21/2022 Atrial Fibrillation Unspecified (HCC) 04/28/2022 Monitoring For Therapeutic Drug Therapy 04/28/2022 Police Manager (Current) Anticoagulant Treatment 04/28/2022 Atrial Fibrillation Unspecified (HCC) 04/28/2022 Monitoring For Therapeutic Drug Therapy 04/28/2022 Correction (Current) Anticoagulant Treatment 04/28/2022 Atrial Fibrillation Unspecified (HCC) 04/29/2022 Monitoring For Therapeutic Drug Therapy 04/29/2022 Correction (Current) Anticoagulant Treatment 04/29/2022 Deficiency Estrogen Post Menopausal 05/12/2022 Atrial Fibrillation Unspecified (HCC) 05/12/2022 Monitoring For Therapeutic Drug Therapy 05/12/2022 Police Manager (Current) Anticoagulant Treatment 05/12/2022 Atrial Fibrillation Unspecified (HCC) 05/12/2022 Monitoring For Therapeutic Drug Therapy 05/12/2022 Police Manager (Current) Anticoagulant Treatment 05/12/2022 Cardiomyopathy Dilated (HCC) 06/01/2022 Atrial Fibrillation Unspecified (HCC) 06/03/2022 Correction (Current) Anticoagulant Treatment 06/03/2022 Cardiomyopathy Dilated (HCC) 06/03/2022 Hyperlipidemia On Treatment 06/03/2022 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 Glomerular Filtration Rate (GFR) 45 To 59 (HCC) 06/03/2022 Atrial Fibrillation Unspecified (HCC) 06/09/2022 Monitoring For Therapeutic Drug Therapy 06/09/2022 Police Manager (Current) Anticoagulant Treatment 06/09/2022 Atrial Fibrillation Unspecified (HCC) 06/09/2022 Monitoring For Therapeutic Drug Therapy 06/09/2022 Police Manager (Current) Anticoagulant Treatment 06/09/2022 Atrial Fibrillation Unspecified (HCC) 06/15/2022 Monitoring For Therapeutic Drug Therapy 06/15/2022 Police Manager (Current) Anticoagulant Treatment 06/15/2022 Atrial Fibrillation Unspecified (HCC) 06/15/2022 Monitoring For Therapeutic Drug Therapy 06/15/2022 Police Manager (Current) Anticoagulant Treatment 06/15/2022 Atrial Fibrillation Unspecified (HCC) 06/19/2022 Monitoring For Therapeutic Drug Therapy 06/19/2022 Correction (Current) Anticoagulant Treatment 06/19/2022 Atrial Fibrillation Unspecified (HCC) 06/19/2022 Monitoring For Therapeutic Drug Therapy 06/19/2022 Police Manager (Current) Anticoagulant Treatment 06/19/2022 Atrial Fibrillation Unspecified (HCC) 06/29/2022 Monitoring For Therapeutic Drug Therapy 06/29/2022 Correction (Current) Anticoagulant Treatment 06/29/2022 Atrial Fibrillation Unspecified (HCC) 06/29/2022 Monitoring For Therapeutic Drug Therapy 06/29/2022 Correction (Current) Anticoagulant Treatment 06/29/2022 Atrial Fibrillation Unspecified (HCC) 07/27/2022 Monitoring For Therapeutic Drug Therapy 07/27/2022 Correction (Current) Anticoagulant Treatment 07/27/2022 Atrial Fibrillation Unspecified (HCC) 07/27/2022 Monitoring For Therapeutic Drug Therapy 07/27/2022 Police Manager (Current) Anticoagulant Treatment 07/27/2022 Atrial Fibrillation Unspecified (HCC) 08/07/2022 Monitoring For Therapeutic Drug Therapy 08/07/2022 Correction (Current) Anticoagulant Treatment 08/07/2022 Atrial Fibrillation Unspecified (HCC) 08/10/2022 Monitoring For Therapeutic Drug Therapy 08/10/2022 Police Manager (Current) Anticoagulant Treatment 08/10/2022 Atrial Fibrillation Unspecified (HCC) 08/10/2022 Monitoring For Therapeutic Drug Therapy 08/10/2022 Correction (Current) Anticoagulant Treatment 08/10/2022 Monitoring For Therapeutic Drug Therapy 08/12/2022 Laceration Blood Vessel Left Index Finger Sequela 08/31/2022 Atrial Fibrillation Paroxysmal (HCC) 09/01/2022 Police Manager (Current) Anticoagulant Treatment 09/01/2022 Bradycardia 09/01/2022 Cardiomyopathy Dilated (HCC) 09/01/2022 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 Glomerular Filtration Rate (GFR) 45 To 59 (HCC) 09/01/2022 Atrial Fibrillation Unspecified (HCC) 09/03/2022 Monitoring For Therapeutic Drug Therapy 09/03/2022 Correction (Current) Anticoagulant Treatment 09/03/2022 Atrial Fibrillation Paroxysmal (HCC) 09/03/2022 Monitoring For Therapeutic Drug Therapy 09/03/2022 Correction (Current) Anticoagulant Treatment 09/03/2022 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 Glomerular Filtration Rate (GFR) 45 To 59 (HCC) 09/17/2022 Monitoring For Therapeutic Drug Therapy 09/17/2022 Atrial Fibrillation Paroxysmal (HCC) 09/17/2022 Monitoring For Therapeutic Drug Therapy 09/17/2022 Atrial Fibrillation Paroxysmal (HCC) 09/17/2022 Monitoring For Therapeutic Drug Therapy 09/17/2022 Correction (Current) Anticoagulant Treatment 09/17/2022 Atrial Fibrillation Paroxysmal (HCC) 10/01/2022 Monitoring For Therapeutic Drug Therapy 10/01/2022 Correction (Current) Anticoagulant Treatment 10/01/2022 Atrial Fibrillation Paroxysmal (HCC) 10/02/2022 Correction (Current) Anticoagulant Treatment 10/02/2022 Monitoring For Therapeutic Drug Therapy 10/02/2022 Atrial Fibrillation Paroxysmal (HCC) 10/02/2022 Monitoring For Therapeutic Drug Therapy 10/02/2022 Correction (Current) Anticoagulant Treatment 10/02/2022 Atrial Fibrillation Paroxysmal (HCC) 10/12/2022 Monitoring For Therapeutic Drug Therapy 10/12/2022 Correction (Current) Anticoagulant Treatment 10/12/2022 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 Glomerular Filtration Rate (GFR) 45 To 59 (HCC) 10/12/2022 Atrial Fibrillation Paroxysmal (HCC) 10/12/2022 Monitoring For Therapeutic Drug Therapy 10/12/2022 Correction (Current) Anticoagulant Treatment 10/12/2022 Atrial Fibrillation Paroxysmal (HCC) 10/21/2022 Monitoring For Therapeutic Drug Therapy 10/21/2022 Correction (Current) Anticoagulant Treatment 10/21/2022 Atrial Fibrillation Paroxysmal (HCC) 10/27/2022 Monitoring For Therapeutic Drug Therapy 10/27/2022 Correction (Current) Anticoagulant Treatment 10/27/2022 Atrial Fibrillation Paroxysmal (HCC) 10/28/2022 Monitoring For Therapeutic Drug Therapy 10/28/2022 Police Manager (Current) Anticoagulant Treatment 10/28/2022 Atrial Fibrillation Paroxysmal (HCC) 11/04/2022 Monitoring For Therapeutic Drug Therapy 11/04/2022 Police Manager (Current) Anticoagulant Treatment 11/04/2022 Atrial Fibrillation Paroxysmal (HCC) 11/04/2022 Monitoring For Therapeutic Drug Therapy 11/04/2022 Correction (Current) Anticoagulant Treatment 11/04/2022 Atrial Fibrillation Paroxysmal (HCC) 11/10/2022 Monitoring For Therapeutic Drug Therapy 11/10/2022 Correction (Current) Anticoagulant Treatment 11/10/2022 Atrial Fibrillation Paroxysmal (HCC) 11/10/2022 Monitoring For Therapeutic Drug Therapy 11/10/2022 Correction (Current) Anticoagulant Treatment 11/10/2022 Atrial Fibrillation Paroxysmal (HCC) 11/17/2022 Monitoring For Therapeutic Drug Therapy 11/17/2022 Police Manager (Current) Anticoagulant Treatment 11/17/2022 Atrial Fibrillation Paroxysmal (HCC) 11/17/2022 Monitoring For Therapeutic Drug Therapy 11/17/2022 Police Manager (Current) Anticoagulant Treatment 11/17/2022 Atrial Fibrillation Paroxysmal (HCC) 12/15/2022 Monitoring For Therapeutic Drug Therapy 12/15/2022 Police Manager (Current) Anticoagulant Treatment 12/15/2022 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 Glomerular Filtration Rate (GFR) 45 To 59 (HCC) 12/15/2022 Atrial Fibrillation Paroxysmal (HCC) 12/15/2022 Monitoring For Therapeutic Drug Therapy 12/15/2022 Police Manager (Current) Anticoagulant Treatment 12/15/2022 Atrial Fibrillation Paroxysmal (HCC) 01/26/2023 Monitoring For Therapeutic Drug Therapy 01/26/2023 Police Manager (Current) Anticoagulant Treatment 01/26/2023 Atrial Fibrillation Paroxysmal (HCC) 01/26/2023 Monitoring For Therapeutic Drug Therapy 01/26/2023 Correction (Current) Anticoagulant Treatment 01/26/2023 Atrial Fibrillation Paroxysmal (HCC) 02/02/2023 Monitoring For Therapeutic Drug Therapy 02/02/2023 Correction (Current) Anticoagulant Treatment 02/02/2023 Atrial Fibrillation Paroxysmal (HCC) 02/02/2023 Monitoring For Therapeutic Drug Therapy 02/02/2023 Police Manager (Current) Anticoagulant Treatment 02/02/2023 Atrial Fibrillation Paroxysmal (HCC) 02/16/2023 Monitoring For Therapeutic Drug Therapy 02/16/2023 Correction (Current) Anticoagulant Treatment 02/16/2023 Atrial Fibrillation Paroxysmal (HCC) 02/16/2023 Monitoring For Therapeutic Drug Therapy 02/16/2023 Correction (Current) Anticoagulant Treatment 02/16/2023 Atrial Fibrillation Paroxysmal (HCC) 02/24/2023 Monitoring For Therapeutic Drug Therapy 02/24/2023 Correction (Current) Anticoagulant Treatment 02/24/2023 COVID-19 Infection 02/24/2023 ERRONEOUS ENCOUNTER--DISREGARD 02/24/2023 Atrial Fibrillation Paroxysmal (HCC) 02/25/2023 Monitoring For Therapeutic Drug Therapy 02/25/2023 Correction (Current) Anticoagulant Treatment 02/25/2023 Atrial Fibrillation Paroxysmal (HCC) 03/05/2023 Monitoring For Therapeutic Drug Therapy 03/05/2023 Police Manager (Current) Anticoagulant Treatment 03/05/2023 Atrial Fibrillation Paroxysmal (HCC) 03/05/2023 Monitoring For Therapeutic Drug Therapy 03/05/2023 Correction (Current) Anticoagulant Treatment 03/05/2023 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 Glomerular Filtration Rate (GFR) 45 To 59 (HCC) 03/05/2023 Hyperlipidemia On Treatment 03/05/2023 Atrial Fibrillation Paroxysmal (HCC) 03/09/2023 Monitoring For Therapeutic Drug Therapy 03/09/2023 Police Manager (Current) Anticoagulant Treatment 03/09/2023 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 Glomerular Filtration Rate (GFR) 45 To 59 (HCC) 03/09/2023 Hyperlipidemia On Treatment 03/09/2023 Atrial Fibrillation Paroxysmal (HCC) 03/09/2023 Monitoring For Therapeutic Drug Therapy 03/09/2023 Police Manager (Current) Anticoagulant Treatment 03/09/2023 Atrial Fibrillation Paroxysmal (HCC) 03/12/2023 Monitoring For Therapeutic Drug Therapy 03/12/2023 Correction (Current) Anticoagulant Treatment 03/12/2023 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 Glomerular Filtration Rate (GFR) 45 To 59 (HCC) 03/12/2023 Hyperlipidemia On Treatment 03/12/2023 Atrial Fibrillation Paroxysmal (HCC) 03/12/2023 Monitoring For Therapeutic Drug Therapy 03/12/2023 Correction (Current) Anticoagulant Treatment 03/12/2023 Hypertensive Heart With Heart Failure And Chronic Kidney Disease (CKD) Stage 3a Glomerular Filtration Rate (GFR) 45 To 59 (HCC) 03/19/2023 Hyperlipidemia On Treatment 03/19/2023 Atrial Fibrillation Paroxysmal (HCC) 03/19/2023 Monitoring For Therapeutic Drug Therapy 03/19/2023 Police Manager (Current) Anticoagulant Treatment 03/19/2023 Hypertensive Heart With [...] 04/02/2023 Monitoring For Therapeutic Drug Therapy 04/02/2023 Correction (Current) Anticoagulant Treatment 04/02/2023 Hypertensive Heart With Heart Failure And Chronic Kidney Disease (CKD) Stage 3a Glomerular Filtration Rate (GFR) 45 To 59 (HCC) 04/02/2023 Hyperlipidemia On Treatment 04/02/2023 Atrial Fibrillation Paroxysmal (HCC) 04/02/2023 Monitoring For Therapeutic Drug Therapy 04/02/2023 Correction (Current) Anticoagulant Treatment 04/02/2023 Hypertensive Heart With [...] 04/30/2023 Monitoring For Therapeutic Drug Therapy 04/30/2023 Police Manager (Current) Anticoagulant Treatment 04/30/2023 Hypertensive Heart With Heart Failure And Chronic Kidney Disease (CKD) Stage 3a Glomerular Filtration Rate (GFR) 45 To 59 (HCC) 04/30/2023 Hyperlipidemia On Treatment 04/30/2023 Atrial Fibrillation Paroxysmal (HCC) 04/30/2023 Monitoring For Therapeutic Drug Therapy 04/30/2023 Correction (Current) Anticoagulant Treatment 04/30/2023 Hypertensive Heart With Heart Failure And Chronic Kidney Disease (CKD) Stage 3a Glomerular Filtration Rate (GFR) 45 To 59 (HCC) 05/07/2023 Hyperlipidemia On Treatment 05/07/2023 Atrial Fibrillation Paroxysmal (HCC) 05/07/2023 Monitoring For Therapeutic Drug Therapy 05/07/2023 Correction (Current) Anticoagulant Treatment 05/07/2023 Hypertensive Heart With Heart Failure And Chronic Kidney Disease (CKD) Stage 3a Glomerular Filtration Rate (GFR) 45 To 59 (HCC) 05/07/2023 Hyperlipidemia On Treatment 05/07/2023 Atrial Fibrillation Paroxysmal (HCC) 05/07/2023 Monitoring For Therapeutic Drug Therapy 05/07/2023 Police Manager (Current) Anticoagulant Treatment 05/07/2023 Atrial Fibrillation Paroxysmal (HCC) 05/21/2023 Hypertensive Heart With Heart Failure And Chronic Kidney Disease (CKD) Stage 3a Glomerular Filtration Rate (GFR) 45 To 59 (HCC) 05/21/2023 Hyperlipidemia On Treatment 05/21/2023 Atrial Fibrillation Paroxysmal (HCC) 05/21/2023 Monitoring For Therapeutic Drug Therapy 05/21/2023 Police Manager (Current) Anticoagulant Treatment 05/21/2023 Hypertensive Heart With Heart Failure And Chronic Kidney Disease (CKD) Stage 3a Glomerular Filtration Rate (GFR) 45 To 59 (HCC) 05/27/2023 Hyperlipidemia On Treatment 05/27/2023 Atrial Fibrillation Paroxysmal (HCC) 05/27/2023 Monitoring For Therapeutic Drug Therapy 05/27/2023 Police Manager (Current) Anticoagulant Treatment 05/27/2023 Hypertensive Heart With Heart Failure And Chronic Kidney Disease (CKD) Stage 3a Glomerular Filtration Rate (GFR) 45 To 59 (HCC) 05/27/2023 Hyperlipidemia On Treatment 05/27/2023 Atrial Fibrillation Paroxysmal (HCC) 05/27/2023 Monitoring For Therapeutic Drug Therapy 05/27/2023 Correction (Current) Anticoagulant Treatment 05/27/2023 Hypertensive Heart With Heart Failure And Chronic Kidney Disease (CKD) Stage 3a Glomerular Filtration Rate (GFR) 45 To 59 (HCC) 06/03/2023 Hyperlipidemia On Treatment 06/03/2023 Atrial Fibrillation Paroxysmal (HCC) 06/03/2023 Monitoring For Therapeutic Drug Therapy 06/03/2023 Correction (Current) Anticoagulant Treatment 06/03/2023 Hypertensive Heart With Heart Failure And Chronic Kidney Disease (CKD) Stage 3a Glomerular Filtration Rate (GFR) 45 To 59 (HCC) 06/03/2023 Hyperlipidemia On Treatment 06/03/2023 Atrial Fibrillation Paroxysmal (HCC) 06/03/2023 Monitoring For Therapeutic Drug Therapy 06/03/2023 Correction (Current) Anticoagulant Treatment 06/03/2023 Atrial Fibrillation Paroxysmal (HCC) 06/22/2023 Hypertensive Heart With Heart Failure And Chronic Kidney Disease (CKD) Stage 3a Glomerular Filtration Rate (GFR) 45 To 59 (HCC) 06/22/2023 Hyperlipidemia On Treatment 06/22/2023 Atrial Fibrillation Paroxysmal (HCC) 06/22/2023 Monitoring For Therapeutic Drug Therapy 06/22/2023 Police Manager (Current) Anticoagulant Treatment 06/22/2023 Atrial Fibrillation Unspecified (HCC) 06/22/2023 Atrial Fibrillation Paroxysmal (HCC) 06/22/2023 Correction (Current) Anticoagulant Treatment 06/22/2023 Monitoring For Therapeutic [...] 06/24/2023 Monitoring For Therapeutic Drug Therapy 06/24/2023 Police Manager (Current) Anticoagulant Treatment 06/24/2023 Hypertensive Heart With [...] 07/06/2023 Monitoring For Therapeutic Drug Therapy 07/06/2023 Police Manager (Current) Anticoagulant Treatment 07/06/2023 Atrial Fibrillation Paroxysmal (HCC) 07/06/2023 Hypertensive Heart With Heart Failure And Chronic Kidney Disease (CKD) Stage 3a Glomerular Filtration Rate (GFR) 45 To 59 (HCC) 07/06/2023 Hyperlipidemia On Treatment 07/06/2023 Monitoring For Therapeutic Drug Therapy 07/06/2023 Correction (Current) Anticoagulant Treatment 07/06/2023 Hypertensive Heart With Heart Failure And Chronic Kidney Disease (CKD) Stage 3a Glomerular Filtration Rate (GFR) 45 To 59 (HCC) 08/05/2023 Hyperlipidemia On Treatment 08/05/2023 Atrial Fibrillation Paroxysmal (HCC) 08/05/2023 Monitoring For Therapeutic Drug Therapy 08/05/2023 Police Manager (Current) Anticoagulant Treatment 08/05/2023 Hypertensive Heart With Heart Failure And Chronic Kidney Disease (CKD) Stage 3a Glomerular Filtration Rate (GFR) 45 To 59 (HCC) 08/06/2023 Hyperlipidemia On Treatment 08/06/2023 Atrial Fibrillation Paroxysmal (HCC) 08/06/2023 Monitoring For Therapeutic Drug Therapy 08/06/2023 Correction (Current) Anticoagulant Treatment 08/06/2023 Hypertensive Heart With Heart Failure And Chronic Kidney Disease (CKD) Stage 3a Glomerular Filtration Rate (GFR) 45 To 59 (HCC) 08/13/2023 Hyperlipidemia On Treatment 08/13/2023 Atrial Fibrillation Paroxysmal (HCC) 08/13/2023 Monitoring For Therapeutic Drug Therapy 08/13/2023 Police Manager (Current) Anticoagulant Treatment 08/13/2023 Hypertensive Heart With Heart Failure And Chronic Kidney Disease (CKD) Stage 3a Glomerular Filtration Rate (GFR) 45 To 59 (HCC) 08/16/2023 Hyperlipidemia On Treatment 08/16/2023 Atrial Fibrillation Paroxysmal (HCC) 08/16/2023 Monitoring For Therapeutic Drug Therapy 08/16/2023 Correction (Current) Anticoagulant Treatment 08/16/2023 Hypertensive Heart With Heart Failure And Chronic Kidney Disease (CKD) Stage 3a Glomerular Filtration Rate (GFR) 45 To 59 (HCC) 08/17/2023 Hyperlipidemia On Treatment 08/17/2023 Atrial Fibrillation Paroxysmal (HCC) 08/17/2023 Monitoring For Therapeutic Drug Therapy 08/17/2023 Police Manager (Current) Anticoagulant Treatment 08/17/2023 Hypertensive Heart With Heart Failure And Chronic Kidney Disease (CKD) Stage 3a Glomerular Filtration Rate (GFR) 45 To 59 (HCC) 08/24/2023 Hyperlipidemia On Treatment 08/24/2023 Atrial Fibrillation Paroxysmal (HCC) 08/24/2023 Monitoring For Therapeutic Drug Therapy 08/24/2023 Police Manager (Current) Anticoagulant Treatment 08/24/2023 Hypertensive Heart With Heart Failure And Chronic Kidney Disease (CKD) Stage 3a Glomerular Filtration Rate (GFR) 45 To 59 (HCC) 08/24/2023 Hyperlipidemia On Treatment 08/24/2023 Atrial Fibrillation Paroxysmal (HCC) 08/24/2023 Monitoring For Therapeutic Drug Therapy 08/24/2023 Police Manager (Current) Anticoagulant Treatment 08/24/2023 Hypertensive Heart With Heart Failure And Chronic Kidney Disease (CKD) Stage 3a Glomerular Filtration Rate (GFR) 45 To 59 (HCC) 08/27/2023 Hyperlipidemia On Treatment 08/27/2023 Atrial Fibrillation Paroxysmal (HCC) 08/27/2023 Monitoring For Therapeutic Drug Therapy 08/27/2023 Police Manager (Current) Anticoagulant Treatment 08/27/2023 Hypertensive Heart With Heart Failure And Chronic Kidney Disease (CKD) Stage 3a Glomerular Filtration Rate (GFR) 45 To 59 (HCC) 08/27/2023 Hyperlipidemia On Treatment 08/27/2023 Atrial Fibrillation Paroxysmal (HCC) 08/27/2023 Monitoring For Therapeutic Drug Therapy 08/27/2023 Correction (Current) Anticoagulant Treatment 08/27/2023 Hypertensive Heart With Heart Failure And Chronic Kidney Disease (CKD) Stage 3a Glomerular Filtration Rate (GFR) 45 To 59 (HCC) 09/02/2023 Hyperlipidemia On Treatment 09/02/2023 Atrial Fibrillation Paroxysmal (HCC) 09/02/2023 Monitoring For Therapeutic Drug Therapy 09/02/2023 Correction (Current) Anticoagulant Treatment 09/02/2023 Hypertensive Heart With Heart Failure And Chronic Kidney Disease (CKD) Stage 3a Glomerular Filtration Rate (GFR) 45 To 59 (HCC) 09/02/2023 Hyperlipidemia On Treatment 09/02/2023 Atrial Fibrillation Paroxysmal (HCC) 09/02/2023 Monitoring For Therapeutic Drug Therapy 09/02/2023 Police Manager (Current) Anticoagulant Treatment 09/02/2023 Hypertensive Heart With Heart Failure And Chronic Kidney Disease (CKD) Stage 3a Glomerular Filtration Rate (GFR) 45 To 59 (HCC) 09/08/2023 Hyperlipidemia On Treatment 09/08/2023 Atrial Fibrillation Paroxysmal (HCC) 09/08/2023 Monitoring For Therapeutic Drug Therapy 09/08/2023 Correction (Current) Anticoagulant Treatment 09/08/2023 Hypertensive Heart With Heart Failure And Chronic Kidney Disease (CKD) Stage 3a Glomerular Filtration Rate (GFR) 45 To 59 (HCC) 09/08/2023 Hyperlipidemia On Treatment 09/08/2023 Atrial Fibrillation Paroxysmal (HCC) 09/08/2023 Monitoring For Therapeutic Drug Therapy 09/08/2023 Police Manager (Current) Anticoagulant Treatment 09/08/2023 Hypertensive Heart With Heart Failure And Chronic Kidney Disease (CKD) Stage 3a Glomerular Filtration Rate (GFR) 45 To 59 (HCC) 09/14/2023 Hyperlipidemia On Treatment 09/14/2023 Atrial Fibrillation Paroxysmal (HCC) 09/14/2023 Monitoring For Therapeutic Drug Therapy 09/14/2023 Correction (Current) Anticoagulant Treatment 09/14/2023 Hypertensive Heart With Heart Failure And Chronic Kidney Disease (CKD) Stage 3a Glomerular Filtration Rate (GFR) 45 To 59 (HCC) 09/14/2023 Hyperlipidemia On Treatment 09/14/2023 Atrial Fibrillation Paroxysmal (HCC) 09/14/2023 Monitoring For Therapeutic Drug Therapy 09/14/2023 Police Manager (Current) Anticoagulant Treatment 09/14/2023 Hypertensive Heart With Heart Failure And Chronic Kidney Disease (CKD) Stage 3a Glomerular Filtration Rate (GFR) 45 To 59 (HCC) 09/21/2023 Hyperlipidemia On Treatment 09/21/2023 Atrial Fibrillation Paroxysmal (HCC) 09/21/2023 Monitoring For Therapeutic Drug Therapy 09/21/2023 Correction (Current) Anticoagulant Treatment 09/21/2023 Hypertensive Heart With Heart Failure And Chronic Kidney Disease (CKD) Stage 3a Glomerular Filtration Rate (GFR) 45 To 59 (HCC) 09/21/2023 Hyperlipidemia On Treatment 09/21/2023 Atrial Fibrillation Paroxysmal (HCC) 09/21/2023 Monitoring For Therapeutic Drug Therapy 09/21/2023 Correction (Current) Anticoagulant Treatment 09/21/2023 Hypertensive Heart With Heart Failure And Chronic Kidney Disease (CKD) Stage 3a Glomerular Filtration Rate (GFR) 45 To 59 (HCC) 09/24/2023 Hyperlipidemia On Treatment 09/24/2023 Atrial Fibrillation Paroxysmal (HCC) 09/24/2023 Monitoring For Therapeutic Drug Therapy 09/24/2023 Police Manager (Current) Anticoagulant Treatment 09/24/2023 Hypertensive Heart With Heart Failure And Chronic Kidney Disease (CKD) Stage 3a Glomerular Filtration Rate (GFR) 45 To 59 (HCC) 09/24/2023 Hyperlipidemia On Treatment 09/24/2023 Atrial Fibrillation Paroxysmal (HCC) 09/24/2023 Monitoring For Therapeutic Drug Therapy 09/24/2023 Correction (Current) Anticoagulant Treatment 09/24/2023 Hypertensive Heart With Heart Failure And Chronic Kidney Disease (CKD) Stage 3a Glomerular Filtration Rate (GFR) 45 To 59 (HCC) 10/01/2023 Hyperlipidemia On Treatment 10/01/2023 Atrial Fibrillation Paroxysmal (HCC) 10/01/2023 Monitoring For Therapeutic Drug Therapy 10/01/2023 Correction (Current) Anticoagulant Treatment 10/01/2023 Hypertensive Heart And Chronic Kidney Disease With Heart Failure And Stage 1 To 4 Chronic Kidney Disease Or Unspecified Chronic Kidney Disease (HCC) 10/04/2023 Hyperlipidemia On Treatment 10/04/2023 Atrial Fibrillation Paroxysmal (HCC) 10/04/2023 Monitoring For Therapeutic Drug Therapy 10/04/2023 Correction (Current) Anticoagulant Treatment 10/04/2023 Atrial Fibrillation Paroxysmal (HCC) 10/07/2023 Hypertensive Heart And Chronic Kidney Disease With Heart Failure And Stage 1 To 4 Chronic Kidney Disease Or Unspecified Chronic Kidney Disease (HCC) 10/08/2023 Hyperlipidemia On Treatment 10/08/2023 Atrial Fibrillation Paroxysmal (HCC) 10/08/2023 Monitoring For Therapeutic Drug Therapy 10/08/2023 Police Manager (Current) Anticoagulant Treatment 10/08/2023 Hypertensive Heart And Chronic Kidney Disease With Heart Failure And Stage 1 To 4 Chronic Kidney Disease Or Unspecified Chronic Kidney Disease (HCC) 10/15/2023 Hyperlipidemia On Treatment 10/15/2023 Atrial Fibrillation Paroxysmal (HCC) 10/15/2023 Monitoring For Therapeutic Drug Therapy 10/15/2023 Correction (Current) Anticoagulant Treatment 10/15/2023 Hypertensive Heart And Chronic Kidney Disease With Heart Failure And Stage 1 To 4 Chronic Kidney Disease Or Unspecified Chronic Kidney Disease (HCC) 10/19/2023 Hyperlipidemia On Treatment 10/19/2023 Atrial Fibrillation Paroxysmal (HCC) 10/19/2023 Monitoring For Therapeutic Drug Therapy 10/19/2023 Police Manager (Current) Anticoagulant Treatment 10/19/2023 Hypertensive Heart And Chronic Kidney Disease With Heart Failure And Stage 1 To 4 Chronic Kidney Disease Or Unspecified Chronic Kidney Disease (HCC) 10/28/2023 Hyperlipidemia On Treatment 10/28/2023 Atrial Fibrillation Paroxysmal (HCC) 10/28/2023 Monitoring For Therapeutic Drug Therapy 10/28/2023 Police Manager (Current) Anticoagulant Treatment 10/28/2023 Hypertensive Heart And Chronic Kidney Disease With Heart Failure And Stage 1 To 4 Chronic Kidney Disease Or Unspecified Chronic Kidney Disease (HCC) 10/28/2023 Hyperlipidemia On Treatment 10/28/2023 Atrial Fibrillation Paroxysmal (HCC) 10/28/2023 Monitoring For Therapeutic Drug Therapy 10/28/2023 Police Manager (Current) Anticoagulant Treatment 10/28/2023 Hypertensive Heart And Chronic Kidney Disease With Heart Failure And Stage 1 To 4 Chronic Kidney Disease Or Unspecified Chronic Kidney Disease (HCC) 11/02/2023 Hyperlipidemia On Treatment 11/02/2023 Atrial Fibrillation Paroxysmal (HCC) 11/02/2023 Monitoring For Therapeutic Drug Therapy 11/02/2023 Correction (Current) Anticoagulant Treatment 11/02/2023 Hypertensive Heart And Chronic Kidney Disease With Heart Failure And Stage 1 To 4 Chronic Kidney Disease Or Unspecified Chronic Kidney Disease (HCC) 11/02/2023 Hyperlipidemia On Treatment 11/02/2023 Atrial Fibrillation Paroxysmal (HCC) 11/02/2023 Monitoring For Therapeutic Drug Therapy 11/02/2023 Correction (Current) Anticoagulant Treatment 11/02/2023 Hypertensive Heart And Chronic Kidney Disease With Heart Failure And Stage 1 To 4 Chronic Kidney Disease Or Unspecified Chronic Kidney Disease (HCC) 11/02/2023 Hyperlipidemia On Treatment 11/02/2023 Atrial Fibrillation Paroxysmal (HCC) 11/02/2023 Monitoring For Therapeutic Drug Therapy 11/02/2023 Police Manager (Current) Anticoagulant Treatment 11/02/2023 Atrial Fibrillation Paroxysmal (HCC) 11/12/2023 Monitoring For Therapeutic Drug Therapy 11/12/2023 Police Manager (Current) Anticoagulant Treatment 11/12/2023 Hypertensive Heart And Chronic Kidney Disease With Heart Failure And Stage 1 To 4 Chronic Kidney Disease Or Unspecified Chronic Kidney Disease (HCC) 11/12/2023 Hyperlipidemia On Treatment 11/12/2023 Atrial Fibrillation Paroxysmal (HCC) 11/12/2023 Monitoring For Therapeutic Drug Therapy 11/12/2023 Correction (Current) Anticoagulant Treatment 11/12/2023 Hypertensive Heart And Chronic Kidney Disease With Heart Failure And Stage 1 To 4 Chronic Kidney Disease Or Unspecified Chronic Kidney Disease (HCC) 11/22/2023 Hyperlipidemia On Treatment 11/22/2023 Atrial Fibrillation Paroxysmal (HCC) 11/22/2023 Monitoring For Therapeutic Drug Therapy 11/22/2023 Police Manager (Current) Anticoagulant Treatment 11/22/2023 Hypertensive Heart And Chronic Kidney Disease With Heart Failure And Stage 1 To 4 Chronic Kidney Disease Or Unspecified Chronic Kidney Disease (HCC) 11/22/2023 Hyperlipidemia On Treatment 11/22/2023 Atrial Fibrillation Paroxysmal (HCC) 11/22/2023 Monitoring For Therapeutic Drug Therapy 11/22/2023 Correction (Current) Anticoagulant Treatment 11/22/2023 Hypertensive Heart And Chronic Kidney Disease With Heart Failure And Stage 1 To 4 Chronic Kidney Disease Or Unspecified Chronic Kidney Disease (HCC) 12/03/2023 Hyperlipidemia On Treatment 12/03/2023 Atrial Fibrillation Paroxysmal (HCC) 12/03/2023 Monitoring For Therapeutic Drug Therapy 12/03/2023 Police Manager (Current) Anticoagulant Treatment 12/03/2023 Hypertensive Heart And Chronic Kidney Disease With Heart Failure And Stage 1 To 4 Chronic Kidney Disease Or Unspecified Chronic Kidney Disease (HCC) 12/03/2023 Hyperlipidemia On Treatment 12/03/2023 Atrial Fibrillation Paroxysmal (HCC) 12/03/2023 Monitoring For Therapeutic Drug Therapy 12/03/2023 Police Manager (Current) Anticoagulant Treatment 12/03/2023 Atrial Fibrillation Paroxysmal (HCC) 12/06/2023 Atrial Fibrillation Paroxysmal (HCC) 12/13/2023 Hypertensive Heart And Chronic Kidney Disease With Heart Failure And Stage 1 To 4 Chronic Kidney Disease Or Unspecified Chronic Kidney Disease (HCC) 12/14/2023 Hyperlipidemia On Treatment 12/14/2023 Atrial Fibrillation Paroxysmal (HCC) 12/14/2023 Monitoring For Therapeutic Drug Therapy 12/14/2023 Correction (Current) Anticoagulant Treatment 12/14/2023 Hypertensive Heart And Chronic Kidney Disease With Heart Failure And Stage 1 To 4 Chronic Kidney Disease Or Unspecified Chronic Kidney Disease (HCC) 12/15/2023 Hyperlipidemia On Treatment 12/15/2023 Atrial Fibrillation Paroxysmal (HCC) 12/15/2023 Monitoring For Therapeutic Drug Therapy 12/15/2023 Correction (Current) Anticoagulant Treatment 12/15/2023 Atrial Fibrillation Paroxysmal (HCC) 12/15/2023 Hypertensive Heart And Chronic Kidney Disease With Heart Failure And Stage 1 To 4 Chronic Kidney Disease Or Unspecified Chronic Kidney Disease (HCC) 12/17/2023 Hyperlipidemia On Treatment 12/17/2023 Atrial Fibrillation Paroxysmal (HCC) 12/17/2023 Monitoring For Therapeutic Drug Therapy 12/17/2023 Correction (Current) Anticoagulant Treatment 12/17/2023 Hypertensive Heart And Chronic Kidney Disease With Heart Failure And Stage 1 To 4 Chronic Kidney Disease Or Unspecified Chronic Kidney Disease (HCC) 12/20/2023 Hyperlipidemia On Treatment 12/20/2023 Atrial Fibrillation Paroxysmal (HCC) 12/20/2023 Monitoring For Therapeutic Drug Therapy 12/20/2023 Police Manager (Current) Anticoagulant Treatment 12/20/2023 Hypertensive Heart And Chronic Kidney Disease With Heart Failure And Stage 1 To 4 Chronic Kidney Disease Or Unspecified Chronic Kidney Disease (HCC) 12/20/2023 Hyperlipidemia On Treatment 12/20/2023 Atrial Fibrillation Paroxysmal (HCC) 12/20/2023 Monitoring For Therapeutic Drug Therapy 12/20/2023 Correction (Current) Anticoagulant Treatment 12/20/2023 Hypertensive Heart And Chronic Kidney Disease With Heart Failure And Stage 1 To 4 Chronic Kidney Disease Or Unspecified Chronic Kidney Disease (HCC) 12/24/2023 Hyperlipidemia On Treatment 12/24/2023 Atrial Fibrillation Paroxysmal (HCC) 12/24/2023 Monitoring For Therapeutic Drug Therapy 12/24/2023 Correction (Current) Anticoagulant Treatment 12/24/2023 Hypertensive Heart And Chronic Kidney Disease With Heart Failure And Stage 1 To 4 Chronic Kidney Disease Or Unspecified Chronic Kidney Disease (HCC) 12/24/2023 Hyperlipidemia On Treatment 12/24/2023 Atrial Fibrillation Paroxysmal (HCC) 12/24/2023 Monitoring For Therapeutic Drug Therapy 12/24/2023 Police Manager (Current) Anticoagulant Treatment 12/24/2023 Hypertensive Heart And Chronic Kidney Disease With Heart Failure And Stage 1 To 4 Chronic Kidney Disease Or Unspecified Chronic Kidney Disease (HCC) 12/24/2023 Annual Medicare Examination Return 12/28/2023 Hypertensive Heart And Chronic Kidney Disease With Heart Failure And Stage 1 To 4 Chronic Kidney Disease Or Unspecified Chronic Kidney Disease (HCC) 12/28/2023 Hyperlipidemia On Treatment 12/28/2023 Atrial Fibrillation Paroxysmal (HCC) 12/28/2023 Monitoring For Therapeutic Drug Therapy 12/28/2023 Police Manager (Current) Anticoagulant Treatment 12/28/2023 Atrial Fibrillation Paroxysmal (HCC) 12/28/2023 Hypertensive Heart And Chronic Kidney Disease With Heart Failure And Stage 1 To 4 Chronic Kidney Disease Or Unspecified Chronic Kidney Disease (HCC) 12/28/2023 Hyperlipidemia On Treatment 12/28/2023 Hypertensive Heart And Chronic Kidney Disease With Heart Failure And Stage 1 To 4 Chronic Kidney Disease Or Unspecified Chronic Kidney Disease (HCC) 12/29/2023 Hyperlipidemia On Treatment 12/29/2023 Atrial Fibrillation Paroxysmal (HCC) 12/29/2023 Monitoring For Therapeutic Drug Therapy 12/29/2023 Police Manager (Current) Anticoagulant Treatment 12/29/2023 Hypertensive Heart And Chronic Kidney Disease With Heart Failure And Stage 1 To 4 Chronic Kidney Disease Or Unspecified Chronic Kidney Disease (HCC) 01/06/2024 Hyperlipidemia On Treatment 01/06/2024 Atrial Fibrillation Paroxysmal (HCC) 01/06/2024 Monitoring For Therapeutic Drug Therapy 01/06/2024 Correction (Current) Anticoagulant Treatment 01/06/2024 Hypertensive Heart And Chronic Kidney Disease With Heart Failure And Stage 1 To 4 Chronic Kidney Disease Or Unspecified Chronic Kidney Disease (HCC) 01/06/2024 Hyperlipidemia On Treatment 01/06/2024 Atrial Fibrillation Paroxysmal (HCC) 01/06/2024 Monitoring For Therapeutic Drug Therapy 01/06/2024 Correction (Current) Anticoagulant Treatment 01/06/2024 Hypertensive Heart And Chronic Kidney Disease With Heart Failure And Stage 1 To 4 Chronic Kidney Disease Or Unspecified Chronic Kidney Disease (HCC) 01/11/2024 Hypertensive Heart And Chronic Kidney Disease With Heart Failure And Stage 1 To 4 Chronic Kidney Disease Or Unspecified Chronic Kidney Disease (HCC) 01/13/2024 Hyperlipidemia On Treatment 01/13/2024 Atrial Fibrillation Paroxysmal (HCC) 01/13/2024 Monitoring For Therapeutic Drug Therapy 01/13/2024 Police Manager (Current) Anticoagulant Treatment 01/13/2024 Hypertensive Heart And Chronic Kidney Disease With Heart Failure And Stage 1 To 4 Chronic Kidney Disease Or Unspecified Chronic Kidney Disease (HCC) 01/13/2024 Hyperlipidemia On Treatment 01/13/2024 Atrial Fibrillation Paroxysmal (HCC) 01/13/2024 Monitoring For Therapeutic Drug Therapy 01/13/2024 Correction (Current) Anticoagulant Treatment 01/13/2024 Hypertensive Heart And Chronic Kidney Disease With Heart Failure And Stage 1 To 4 Chronic Kidney Disease Or Unspecified Chronic Kidney Disease (HCC) 01/27/2024 Hyperlipidemia On Treatment 01/27/2024 Atrial Fibrillation Paroxysmal (HCC) 01/27/2024 Monitoring For Therapeutic Drug Therapy 01/27/2024 Correction (Current) Anticoagulant Treatment 01/27/2024 Hypertensive Heart And Chronic Kidney Disease With Heart Failure And Stage 1 To 4 Chronic Kidney Disease Or Unspecified Chronic Kidney Disease (HCC) 01/27/2024 Hyperlipidemia On Treatment 01/27/2024 Atrial Fibrillation Paroxysmal (HCC) 01/27/2024 Monitoring For Therapeutic Drug Therapy 01/27/2024 Correction (Current) Anticoagulant Treatment 01/27/2024 Hypertensive Heart And Chronic Kidney Disease With Heart Failure And Stage 1 To 4 Chronic Kidney Disease Or Unspecified Chronic Kidney Disease (HCC) 01/31/2024 Hyperlipidemia On Treatment 01/31/2024 Atrial Fibrillation Paroxysmal (HCC) 01/31/2024 Monitoring For Therapeutic Drug Therapy 01/31/2024 Correction (Current) Anticoagulant Treatment 01/31/2024 Hypertensive Heart And Chronic Kidney Disease With Heart Failure And Stage 1 To 4 Chronic Kidney Disease Or Unspecified Chronic Kidney Disease (HCC) 01/31/2024 Hyperlipidemia On Treatment 01/31/2024 Atrial Fibrillation Paroxysmal (HCC) 01/31/2024 Monitoring For Therapeutic Drug Therapy 01/31/2024 Correction (Current) Anticoagulant Treatment 01/31/2024 Hypertensive Heart And Chronic Kidney Disease With Heart Failure And Stage 1 To 4 Chronic Kidney Disease Or Unspecified Chronic Kidney Disease (HCC) 02/10/2024 Hyperlipidemia On Treatment 02/10/2024 Atrial Fibrillation Paroxysmal (HCC) 02/10/2024 Monitoring For Therapeutic Drug Therapy 02/10/2024 Correction (Current) Anticoagulant Treatment 02/10/2024 Hypertensive Heart And Chronic Kidney Disease With Heart Failure And Stage 1 To 4 Chronic Kidney Disease Or Unspecified Chronic Kidney Disease (HCC) 02/10/2024 Hyperlipidemia On Treatment 02/10/2024 Atrial Fibrillation Paroxysmal (HCC) 02/10/2024 Monitoring For Therapeutic Drug Therapy 02/10/2024 Police Manager (Current) Anticoagulant Treatment 02/10/2024 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 Or Unspecified Chronic Kidney Disease (HCC) 02/14/2024 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 Or Unspecified Chronic Kidney Disease (HCC) 02/18/2024 Hyperlipidemia On Treatment 02/18/2024 Atrial Fibrillation Paroxysmal (HCC) 02/18/2024 Monitoring For Therapeutic Drug Therapy 02/18/2024 Correction (Current) Anticoagulant Treatment 02/18/2024 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 Or Unspecified Chronic Kidney Disease (HCC) 02/18/2024 Hyperlipidemia On Treatment 02/18/2024 Atrial Fibrillation Paroxysmal (HCC) 02/18/2024 Monitoring For Therapeutic Drug Therapy 02/18/2024 Correction (Current) Anticoagulant Treatment 02/18/2024 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 Or Unspecified Chronic Kidney Disease (HCC) 02/24/2024 Hyperlipidemia On Treatment 02/24/2024 Atrial Fibrillation Paroxysmal (HCC) 02/24/2024 Monitoring For Therapeutic Drug Therapy 02/24/2024 Police Manager (Current) Anticoagulant Treatment 02/24/2024 Atrial Fibrillation Paroxysmal (HCC) 02/24/2024 Monitoring For Therapeutic Drug Therapy 02/24/2024 Correction (Current) Anticoagulant Treatment 02/24/2024 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 Or Unspecified Chronic Kidney Disease (HCC) 02/28/2024 Atrial Fibrillation Paroxysmal (HCC) 03/02/2024 Monitoring For Therapeutic Drug Therapy 03/02/2024 Correction (Current) Anticoagulant Treatment 03/02/2024 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 [address] [place] [phone] PCP - General Internal Medicine 08/12/22
--- OUTSIDE RECORDS SUMMARY | 2024-03-09 08:34 | XMS_ITS | Encounter Summary ---
Author Organization [facility] Address [address] [place] [address] Care Team Providers Care Antisqueak Worker Name Role Phone Patrick Erickson D.O. Primary Care Provider [phone] Reason for Visit * Reason Comments Nurse Visit hypertension * Outpatient (Routine) - Authorized Specialty Diagnoses / Procedures Referred By Prosper [email or web address] Referred To Contact Patrick Erickson D.O. [address], [place] [address] Phone: tel: fax: [facility] Region Referral ID Status Reason Start Date Expiration Date V isits Requested Visits Authorized [id number] Authorized 02/14/2024 08/15/2025 1 1 Encounter Details Date Type Department Care Team (Late st Contact Info) Description 02/28/2024 3:45 PM ENTREPRENEURSHIP PROGRAM DIRECTOR Nurse Only Department of Family Medicine, [facility], in [place], [place] [address], [place] [address] Patrick Erickson D.O. [address] [place] [address] Betty Sosa L.P.N. [address], [place] [address] Nurse Visit (hypertension) Social History Tobacco Use Types Packs/Day Years Used Date Smoking Tobacco: Never Smokeless Tobacco: Never Alcohol Use Standard Drinks/Week Comments No 0 (1 standard drink = 0.6 oz pur e alcohol) [facility] Utilities Answer Date Recorded In the [...] any clubs o r organizations such as scientologist groups, unions, fraternal or athletic groups, or [...] Answer Date Recorded PHQ-2 Score 0 04/27/2023 [facility] - Occupational Stress [...] AM CDT Legal Sex Female 9:57 PM ENTREPRENEURSHIP PROGRAM DIRECTOR Gender Identity Female 09/24/2022 9:59 PM CDT Sexual Orientation Straight 12/19/2021 3: 32 AM CDT documented as of this encounter Last Filed Vital Signs Vital Sign Reading Time Taken Comments Blood Pressure 143/82 02/28/2024 4:01 PM ENTREPRENEURSHIP PROGRAM DIRECTOR Pulse 56 02/28/2024 4:01 PM ENTREPRENEURSHIP PROGRAM DIRECTOR regul ar Temperature - - Respiratory Rate - - Oxygen Saturation - - Inhaled Oxygen Concentration - - Weight - - Height - - Body Mass Index - - documented in this encounter Progress Notes * Betty Sosa L.PHowieN. - 02/28/2024 3:45 PM CST Herminia is seen today for a blood pressure visit as ordered by Patrick Erickson D.O.. Visit was conducted in clinic. Today's blood pressure reading and prior two readings: BP Readings from Last 3 Encounters: 02/28/24 143/82 02/14/24 150/87 01/11/24 144/84 . Medication list was reconciled, and patient is taking their blood pressure medication as prescribed. Has not started the nifedipine but is taking the lisinopril as ordered The patient reports no acute symptoms of hypertension Based on today's readings: The provider will be notified of today's visit and the patient was dismissed Home Blood Pressure Monitoring Status Patient is currently not taking their BP at home but may consider in the future. EPRENEURSHIP PROGRAM DIRECTOR documented in this encounter Plan of Treatment Upcoming Encounters Date Type Department Care Team (Latest Contact Info) Description 03/10/2024 3:20 PM ENTREPRENEURSHIP PROGRAM DIRECTOR Appointment Department of Laboratory Medicine in [place], [place] [address] [place] [phone] Patrick Erickson D.O. [address] [place] [phone] 03/10/2024 4:00 PM ENTREPRENEURSHIP PROGRAM DIRECTOR Anticoagulation Visit Department of Anticoagulation in [place], [place] [address] [place] [address] Patrick Erickson D.O. [address] [phone] 05/15/2024 2:30 PM CDT Appointment Department of Laboratory Medicine in [place], [place] [address] [phone] Patrick Erickson D.O. [address] [phone] 05/15/2024 3:30 PM CDT Office Visit Department of Internal Medicine in [place], [place] [address] [phone] Patrick Erickson D.O. 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 [address] [phone] PCP - General Internal Medicine 08/12/22 documented as of this encounter
--- OUTSIDE RECORDS SUMMARY | 2024-03-09 08:34 | XMS_ITS | Referral Summary ---
Author Organization [facility] Address [address] [place] [address] Care Team Providers Care Real Estate Site Analyst Name Role Phone Patrick Erickson D.O. Primary Care Provider [phone]- [phone] Source Comments Patient records contain information from all sites at [facility]. For routine questions regarding patient records, call [phone] during business hours, M-F 8:00 AM - 5:00 PM Central Time. Record requests for emergency care only can be directed to [phone] at any time.[facility] Encounters Date Type Department Care Team Description 03/03/2024 8:40 AM ICT QUALITY ASSURANCE ENGINEER Anticoagulation Visit Department of Anticoagulation in [place], [place] [address] [place] [address] Patrick Erickson D.O. 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 Atrial Fibrillation Paroxysmal (HCC); Monitoring For Therapeutic Drug Therapy; Obgyn Specialist (Current) Anticoagulant Treatment Discharge Disposition: Home or Self Care 02/28/2024 Clinical Communication Department of Internal Medicine in [place], [place] [address] [address] Patrick Erickson D.O. Med Question 02/28/2024 3:45 PM ICT QUALITY ASSURANCE ENGINEER Nurse Only Department of Family Medicine, [facility], in [place], [place] [address] [place] [phone] Patrick Erickson D.O. Deflieger, Maria P, L.P.N. Nurse Visit (hypertension) 02/24/2024 10:10 AM ICT QUALITY ASSURANCE ENGINEER Anticoagulation Visit Department of Anticoagulation in [place], [place] [address] [place] [phone] Patrick Erickson D.O. 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 Atrial Fibrillation Paroxysmal (HCC); Monitoring For Therapeutic Drug Therapy; Obgyn Specialist (Current) Anticoagulant Treatment Discharge Disposition: Home or Self Care 02/22/2024 Clinical Communication Department of Internal Medicine in [place], [place] [address] [address] Patrick Erickson D.O. Med Question 02/18/2024 11:30 AM ICT QUALITY ASSURANCE ENGINEER Anticoagulation Visit Department of Anticoagulation in [place], [place] [address] [place] [phone] Patrick Erickson D.O. 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 Med Refill 02/14/2024 Clinical Communication Department of Internal Medicine in [address] [address] Patrick Erickson D.O. 02/14/2024 4:20 PM ICT QUALITY ASSURANCE ENGINEER Office Visit Department of Internal Medicine in [address] [address] Patrick Erickson D.O. 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 Med Refill 01/31/2024 11:30 AM ICT QUALITY ASSURANCE ENGINEER Anticoagulation Visit Department of Anticoagulation in [place], [place] [address] [place] [address] Patrick Erickson D.O. 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 Communication 01/13/2024 7:44 AM ICT QUALITY ASSURANCE ENGINEER - 01/13/2024 11:59 PM ICT QUALITY ASSURANCE ENGINEER Hospital Encounter Department of Laboratory Medicine in [address] [address] Patrick Erickson D.O. 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 Blood Pressure 01/11/2024 3:45 PM ICT QUALITY ASSURANCE ENGINEER Nurse Only Department of Family Medicine, [facility], in [place], [place] [address], [place] [address] Patrick Erickson D.O. Davis, Connor R, L.P.N. Blood Pressure Check 01/06/2024 7:50 AM CDT - 01/06/2024 11:59 PM CDT Hospital Encounter Department of Laboratory Medicine in [address] [address] Patrick Erickson D.O. 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 Ebeling, Paul W, RMoraima. Annual Medicare Examination Return (Primary Dx) 12/28/2023 2:29 PM CDT - 12/28/2023 11:59 PM CDT Hospital Encounter Department of Laboratory Medicine in [address] [address] Patrick Erickson D.O. 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 Or Unspecified Chronic Kidney Disease (HCC); Hyperlipidemia On Treatment; Atrial Fibrillation Paroxysmal (HCC); Monitoring For Therapeutic Drug Therapy; Prison (Current) Anticoagulant Treatment Discharge Disposition: Home or Self Care 12/17/2023 Clinical Communication Department of Anticoagulation in [place], [place] [address] [place] [phone] La Mendoza, R.NHowie Anticoagulation (Unable to come in for INR today) 12/15/2023 Clinical Communication Department of Anticoagulation in [place], [place] [address] [place] [phone] Alea Eaton R.N. Anticoagulation (DOAC) 12/15/2023 4:49 PM CDT - 12/15/2023 11:59 PM CDT Hospital Encounter Department of Laboratory Medicine in [address] [address] Patrick Erickson D.O. Atrial Fibrillation Paroxysmal (HCC) Discharge Disposition: Home or Self Care 12/14/2023 11:30 AM CDT Anticoagulation Visit Department of Anticoagulation in [place], [place] [address] [place] [address] Soheila Zapata P.A.-C., M.S. 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 Atrial Fibrillation Paroxysmal (HCC) Discharge Disposition: Home or Self Care 12/10/2023 Refill Department of Internal Medicine in [place], [place] [address] [place] [address] Patrick Erickson D.O. Med Refill from Last 3 Months Allergies Active Allergy [...] spasms. 30 tablet 06/27/19 22 Active tumeric-ging- dnyut-hyez-lm pryl 100 mg-150 mg- 50 mg-150 mg capsule Take by mouth 3 (three) times a day. Active cranberry conc/C/Bacill coag (CRANBERRY URINARY TRACT HEALTH ORAL) Take 1 tablet by mouth daily. Active carvediloL (COREG) 6.25 mg tablet take 1 tablet twice daily 180 tablet 3 06/24/19 24 Active warfarin (Jantoven) 5 mg tablet Take 7.5 mg by mouth daily. Take as directed 08/02/19 Active atorvastatin (Lipitor) 10 mg tablet TAKE 1 TABLET EVERY DAY 90 tablet 3 02/09/20 Active lisinopriL 40 mg tablet TAKE 1 TABLET EVERY DAY 90 tablet 3 02/09/20 24 Active furosemide (Lasix) 20 mg tablet TAKE 1 TABLET (20 MG TOTAL) BY MOUTH DAILY. MAY TAKE AN EXTRA DOSE NEEDED FOR WEIGHT GAIN/EDEMA 100 tablet 3 02/17/20 Active NIFEdipine (Adalat CC) 30 mg ER tablet Take 1 tablet (30 mg total) by mouth daily. 90 tablet 5 02/24/20 Active Additional Information Patient not taking.Reported on 02/28/2024 atorvastatin (LIPITOR) 10 mg tablet take 1 tablet every day 90 tablet 3 04/21/19 24 Discontinued lisinopriL (PRINIVIL,ZES TRIL) 40 mg tablet take 1 tablet every day 90 tablet 3 04/21/19 24 Discontinued furosemide (LASIX) 20 mg tablet TAKE 1 TABLET (20 MG TOTAL) BY MOUTH DAILY. MAY TAKE AN EXTRA DOSE NEEDED FOR WEIGHT GAIN/EDEMA 100 tablet 3 04/28/19 24 024 Discontinued apixaban (Eliquis) 5 mg tablet Take 1 tablet (5 mg total) by mouth 2 (two) times a day. 200 tablet 3 12/10/19 24 Discontinued(Co st of medication) amLODIPine (Norvasc) 2.5 mg tablet Take 1 tablet (2.5 mg total) by mouth daily. 90 tablet 1 01/14/20 24 Discontinued Active Problems Problem Noted Date Diagnosed Date Atrial Fibrillation Paroxysmal 01/06/2022 Monitoring For Therapeutic Drug Therapy 01/07/20 Prison (Current) Anticoagulant Treatment 03/2021 Radiculopathy Lumbar Fifth [...] drink = 0.6 oz pur e alcohol) [facility] Utilities Answer Date Recorded In the past 12 months has e [employer], [employer], oil, or water [employer] threatened to shut off services in your [...] How often do you attend chur or druze services? More than 4 times [...] 04/27/2023 [facility] of Occupat ional [facility] - Occupational Stress Questionnaire Answer [...] your living situation today? I have a [facility] place to live 07/01/2023 Education Answer Date Recorded What is the highest level of school you have completed or the highest degree you have received? Associate degree: occupational, technical, or vocational program 05/30/2022 Comments No Sex and Gender Information Value Date Recorded Sex Assigned at Female 12/19/2021 3:32 AM CDT Legal Sex Female 9:57 PM ICT QUALITY ASSURANCE ENGINEER Gender Identity Female 09/24/2022 9:59 PM CDT Sexual Orientation Straight 12/19/2021 3: 32 AM CDT Last Filed Vital Signs Vital Sign Reading Time Taken Comments Blood Pressure 143/82 02/28/2024 4:01 PM ICT QUALITY ASSURANCE ENGINEER Pulse 56 02/28/2024 4:01 PM ICT QUALITY ASSURANCE ENGINEER regul ar Temperature 36.1 C (96.9 F) 02/14/2024 3:44 PM ICT QUALITY ASSURANCE ENGINEER Respiratory Rate 16 11/06/2021 1:16 PM CDT Oxygen Saturation 98% 12/30/2021 1:38 PM CDT Inhaled Oxygen Concentration - - Weight 85.5 kg (188 lb 7.9 oz) 02/14/2024 3:44 P M ICT QUALITY ASSURANCE ENGINEER Height 163 cm (5' 4.17) 12/28/2023 12:40 PM CDT Body Mass Index 32.18 12/28/2023 12:40 PM CDT Plan of Treatment Upcoming Encounters Date Type Department Care Team (Latest Contact Info) Description 03/10/2024 3:20 PM ICT QUALITY ASSURANCE ENGINEER Appointment Department of Laboratory Medicine in [place], [place] [address] [place] [address] Patrick Erickson D.O. [address] [place] [address] 03/10/2024 4:00 PM ICT QUALITY ASSURANCE ENGINEER Anticoagulation Visit Department of Anticoagulation in [place], [place] [address] [place] [address] Patrick Erickson D.O. [address] [place] [phone] 05/15/2024 2:30 PM CDT Appointment Department of Laboratory Medicine in [place], [place] [address], [place] [address] Patrick Erickson D.O. [address] [place] [address] 05/15/2024 3:30 PM CDT Office Visit Department of Internal Medicine in [place], [place] [address], [place] [address] Patrick Erickson D.O. 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 Disease Or Unspecified Chronic Kidney Disease (HCC) Hyperlipidemia On Treatment Atrial Fibrillation Paroxysmal (HCC) Monitoring For Therapeutic Drug Therapy Prison (Current) Anticoagulant Treatment INR REFLEX, POCT, B Routine 02/10/2024 7 :54 AM ICT QUALITY ASSURANCE ENGINEER Hypertensive Heart And Chronic Kidney Disease With Heart Failure And Stage 1 To 4 Chronic Kidney Disease Or Unspecified Chronic Kidney Disease (HCC) Hyperlipidemia On Treatment Atrial Fibrillation Paroxysmal (HCC) Monitoring For Therapeutic Drug Therapy Obgyn Specialist (Current) Anticoagulant Treatment INR REFLEX, POCT, B Routine 01/31/2024 10:41 AM ICT QUALITY ASSURANCE ENGINEER Hypertensive Heart And Chronic Kidney Disease With Heart Failure And Stage 1 To 4 Chronic Kidney Disease Or Unspecified Chronic Kidney Disease (HCC) Hyperlipidemia On Treatment Atrial Fibrillation Paroxysmal (HCC) Monitoring For Therapeutic Drug Therapy Prison (Current) Anticoagulant Treatment INR REFLEX, POCT, B Routine 01/27/2024 8 :08 AM ICT QUALITY ASSURANCE ENGINEER Hypertensive Heart And Chronic Kidney Disease With Heart Failure And Stage 1 To 4 Chronic Kidney Disease Or Unspecified Chronic Kidney Disease (HCC) Hyperlipidemia On Treatment Atrial Fibrillation Paroxysmal (HCC) Monitoring For Therapeutic Drug Therapy Prison (Current) Anticoagulant Treatment INR REFLEX, POCT, B Routine 01/13/2024 8 :00 AM ICT QUALITY ASSURANCE ENGINEER Hypertensive Heart And Chronic Kidney Disease With Heart Failure And Stage 1 To 4 Chronic Kidney Disease Or Unspecified Chronic Kidney Disease (HCC) Hyperlipidemia On Treatment Atrial Fibrillation Paroxysmal (HCC) Monitoring For Therapeutic Drug Therapy Obgyn Specialist (Current) Anticoagulant Treatment INR REFLEX, POCT, B Routine 01/06/2024 8 :11 AM CDT Hypertensive 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 1 To 4 Chronic Kidney Disease Or Unspecified Chronic Kidney Disease (HCC) Hyperlipidemia On Treatment Atrial Fibrillation Paroxysmal (HCC) Monitoring For Therapeutic Drug Therapy Obgyn Specialist (Current) Anticoagulant Treatment INR REFLEX, POCT, B Routine 12/28/2023 2 :43 PM CDT Hypertensive 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 1 To 4 Chronic Kidney Disease Or Unspecified Chronic Kidney Disease (HCC) Hyperlipidemia On Treatment Atrial Fibrillation Paroxysmal (HCC) Monitoring For Therapeutic Drug Therapy Prison (Current) Anticoagulant Treatment INR REFLEX, POCT, B Routine 12/24/2023 3 :45 PM CDT Hypertensive Heart And Chronic Kidney Disease With Heart Failure And Stage 1 To 4 Chronic Kidney Disease Or Unspecified Chronic Kidney Disease (HCC) Hyperlipidemia On Treatment Atrial Fibrillation Paroxysmal (HCC) Monitoring For Therapeutic Drug Therapy Obgyn Specialist (Current) Anticoagulant Treatment BASIC METABOLIC PANEL, S/P Routine 12/24/2023 3:45 PM CDT Hypertensive Heart And Chronic Kidney Disease With Heart Failure And Stage 1 To 4 Chronic Kidney Disease Or Unspecified Chronic Kidney Disease (HCC) INR REFLEX, POCT, B Routine 12/20/2023 3 :59 PM CDT Hypertensive Heart And Chronic Kidney Disease With Heart Failure And Stage 1 To 4 Chronic Kidney Disease Or Unspecified Chronic Kidney Disease (HCC) Hyperlipidemia On Treatment Atrial Fibrillation Paroxysmal (HCC) Monitoring For Therapeutic Drug Therapy Prison (Current) Anticoagulant Treatment COMPREHENSIVE METABOLIC PANEL, S/P Routine 12/15/2023 5:00 PM CDT Atrial Fibrillation Paroxysmal (HCC) INR REFLEX, POCT, B Routine 12/13/2023 4 :21 PM CDT Atrial Fibrillation Paroxysmal (HCC) BI BREAST SCREENING BILATERAL WITH TOMOSYNTHESIS RAD - Routine (most inpatients and all outpatients) 12/09/2021 3:16 PM CDT Maintenance Health Adult from Last 3 Months or Most Recently Relevant to Health Maintenance Results * INR Reflex, POCT, Blood (03/02/2024 4:17 PM ICT QUALITY ASSURANCE ENGINEER) Only the most recent of12 resultswithin the time period is included. INR Reflex, POCT, B 3.5 03/02/2024 4:16 PM ICT QUALITY ASSURANCE ENGINEER [id number] Comment: ----ADDITIONAL INFORMATION---- Standard intensity warfarin therapeutic range: 2.0 to 3.0 High intensity warfarin therapeutic range: 2.5 to 3.5 Blood (Blood, Capillary) 03/02/2024 4:17 PM ICT QUALITY ASSURANCE ENGINEER 03/02/2024 4:16 PM ICT QUALITY ASSURANCE ENGINEER us Patrick Erickson D.O. LAB POCT ORDERABLES - CARLOS ENRIQUE CE Final Result [email or web address] [address] [place] [address], [facility] FB60 [facility] [address] [facility] [place] [address] * Basic Metabolic Panel (12/24/2023 3:45 PM CDT) Potassium, P 4.0 3.6 - 5.2 mmol/L [...] CDT 12/24/2023 6:05 PM CDT us Patrick Erickson D.O. LAB BLOOD ADD-ON Final Res ult [facility] [address] [place] [address], [facility] OWAT [facility] [address] [place] [address] * (ABNORMAL) Comprehensive Metabolic Panel (12/15/2023 5:00 [...] D.O. LAB BLOOD ADD-ON Final Res ult [facility] [address] [place] [address], [place] [facility] [facility] [address] [place] [address] * BI Breast Screening Bilateral with Tomosynthesis [...] M.S. IMG BI PROCEDURE S Final Result from Last 3 Months or Most Recently Relevant to Health Maintenance Insurance [employer] Care Teams Real Estate Site Analyst Relationship Specialty Start Date End Date Patrick Erickson D.O. [address] [place] [phone] PCP - General Internal Medicine 08/12/22
--- OUTSIDE RECORDS SUMMARY | 2024-03-09 08:34 | XMS_ITS ---
Author Organization [facility] Address [address] [place] [address] Care Team Providers Care Surveillance Systems Engineer Name Role Phone Unavailable Unavailable Unavailable Surgery Details Not on file Complications Check Surgery Details section. Procedure Estimated Blood Loss Check Surgery Details section. Procedure Findings Check Surgery Details section. Procedure Specimens Taken Check Surgery Details section.
--- OUTSIDE RECORDS SUMMARY | 2024-03-09 08:34 | XMS_ITS | Encounter Summary ---
Author Organization [facility] Address [address] [place] [address] Care Team Providers Care Junior Database Administrator Name Role Phone Patrick Erickson D.O. Primary Care Provider +1- [phone] Reason for Referral * Outpatient (Routine) - Authorized Specialty Diagnoses / Procedures Referred By Contac t Referred To Contact Anticoagulation Patrick Erickson D.O. [address], [place] [address] Phone: tel: [facility]: [facility] Region Referral ID Status Reason Start Date Expiration Date V isits Requested Visits Authorized [id number] Authorized 03/03/2024 09/02/2025 300 300 ET COLLECTOR OR USHER Reason for Visit * Outpatient (Routine) - Authorized Specialty Diagnoses / Procedures Referred By Contac t Referred To Contact Anticoagulation Patrick Erickson D.O. [address], [place] [address] Phone: tel: fax: [facility] Region Referral ID Status Reason Start Date Expiration Date V isits Requested Visits Authorized [id number] Authorized 02/10/2024 08/11/2025 300 300 Encounter Details Date Type Department Care Team (Latest Contact Info) Description 03/03/2024 8:40 AM TICKET COLLECTOR OR USHER Anticoagulation Visit Department of Anticoagulation in [place], [place] [address] [place] [address] Patrick Erickson D.O. 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 Chronic Kidney Disease Or Unspecified Chronic Kidney Disease (HCC) (Primary Dx); Hyperlipidemia On Treatment; Atrial Fibrillation Paroxysmal (HCC); Monitoring For Therapeutic Drug Therapy; Strategy Director (Current) Anticoagulant Treatment Social History Tobacco Use Types Packs/Day Years Used Date Smoking Tobacco: Never Smokeless Tobacco: Never Alcohol Use Standard Drinks/Week Comments No 0 (1 standard drink = 0.6 oz pur e alcohol) [facility] Utilities Answer Date Recorded In the past 12 months has e [email or web address], gas, oil, or water [employer] threatened to shut off services in your [...] any clubs o r organizations such as jehovah's witness groups, unions, fraternal or athletic groups, or [...] Answer Date Recorded PHQ-2 Score 0 04/27/2023 [facility] of Occupat ional Health - Occupational [...] your living situation today? I have a [facility] [place] place to live 07/01/2023 Education Answer Date Recorded What is the highest level of school you have completed or the highest degree you have received? Associate degree: occupational, technical, or vocational program 05/30/2022 Comments No Sex and Gender Information Value Date Recorded Sex Assigned at Female 12/19/2021 3:32 AM CDT Legal Sex Female 9:57 PM TICKET COLLECTOR OR USHER Gender Identity Female 09/24/2022 9:59 PM CDT Sexual Orientation Straight 12/19/2021 3: 32 AM CDT documented as of this encounter Patient Instructions * Patient Instructions* Angela Shukla R.N. - 03/03/2024 8:40 AM TICKET COLLECTOR OR USHER Your next INR will be WednesdayMarch 10. You will need to call the Anticoagulation Program for warfarin dosing at the scheduled time for your nurse visit, as indicated on your Patient Appointment Guide (PAG). Additionally, please complete the Anticoagulation Program questionnaire through patient online services within 24 hours before your next appointment. To reschedule your appointment or for questions about your warfarin, please call Primary Care Anticoagulation Program at [phone] from 7:30 am to 4:30 pm. Wednesday-Wednesday [...] if you start any herbal or other trhf-xgc-zwvzllx product (check with your doctor, a nurse, or pharmacist). If you change your diet significantly. If you decide to stop or start using tobacco or alcohol. If you notice unusual bruising or bleeding. If you notice dark, tarry, or bright red stools or blood in your urine. If you have a painful and swollen calf. ET COLLECTOR OR USHER documented in this encounter Plan of Treatment Upcoming Encounters Date Type Department Care Team (Latest Contact Info) Description 03/10/2024 3:20 PM TICKET COLLECTOR OR USHER Appointment Department of Laboratory Medicine in [address] [address] Patrick Erickson D.O. [address] [phone] 03/10/2024 4:00 PM TICKET COLLECTOR OR USHER Anticoagulation Visit Department of Anticoagulation in [place], [place] [address] [place] [phone] Patrick Erickson D.O. [address] [phone] 05/15/2024 2:30 PM CDT Appointment Department of Laboratory Medicine in [place], [place] [address] [phone] Patrick Erickson D.O. [address] [phone] 05/15/2024 3:30 PM CDT Office Visit Department of Internal Medicine in [place], [place] [address] [phone] Patrick Erickson D.O. 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 Chronic Kidney Disease Or Unspecified Chronic Kidney Disease (HCC) Hyperlipidemia On Treatment Atrial Fibrillation Paroxysmal (HCC) Monitoring For Therapeutic Drug Therapy Strategy Director (Current) Anticoagulant Treatment Expected: 03/10/2024, Expires: 06/01/2025 Scheduled Referrals Name Type Priority Associated Diagnoses Order Schedule Anticoagulation nurse visit (clinic) Outpatient Referral Routine 300 Occurrences starting 03/03/2024 until 03/03/2026 documented as of this encounter Visit Diagnoses [...] Total Score: 9 02/23/20 23 7:41 PM TICKET COLLECTOR OR USHER documented as of this encounter Care Teams Junior Database Administrator Relationship Specialty Start Date End Date Patrick Erickson D.O. [address] [facility] [phone] PCP - General Internal Medicine 08/12/22 documented as of this encounter
--- OUTSIDE RECORDS SUMMARY | 2024-03-09 08:34 | XMS_ITS | Encounter Summary ---
Author Organization [facility] Address [address] [place] [address] Care Team Providers Care Book Jogger Name Role Phone Patrick Erickson D.O. Primary Care Provider [phone]- [phone] Reason for Referral * Outpatient (Routine) - Authorized Specialty Diagnoses / Procedures Referred By Prosper t Referred To Contact Patrick Erickson D.O. [address] [place] [address] Phone: tel: fax: [facility] Region Referral ID Status Reason Start Date Expiration Date V isits Requested Visits Authorized [id number] Authorized 02/29/2024 08/30/2025 1 1 UNT LIAISON Reason for Visit * Reason Onset Date Comments Med Question 02/28/2024 Encounter Details Date Type Department Care Team (Late st Contact Info) Description 02/28/2024 Clinical Communication Department of Internal Medicine in [place], [place] [address] [place] [address] Patrick Erickson D.O. [address] [place] [address] Med Question Social History Tobacco Use [...] often do you attend chur ch or denominational services? More than 4 times per year 05/30/2022 Do you belong to any clubs o r organizations such as yazdanism groups, unions, fraternal or athletic groups, or [...] Answer Date Recorded PHQ-2 Score 0 04/27/2023 [facility] [place] of Occupat ional [facility] - Occupational Stress Questionnaire Answer [...] your living situation today? I have a [place] place to live 07/01/2023 Education Answer Date Recorded What is the highest level of school you have completed or the highest degree you have received? Associate degree: occupational, technical, or vocational program 05/30/2022 Comments No Sex and Gender Information Value Date Recorded Sex Assigned at Female 12/19/2021 3:32 AM CDT Legal Sex Female 9:57 PM ACCOUNT LIAISON Gender Identity Female 09/24/2022 9:59 PM CDT Sexual Orientation Straight 12/19/2021 3: 32 AM CDT documented as of this encounter Miscellaneous Notes * Telephone Encounter - Nicole Robert R.N. - 02/29/2024 10:20 AM ACCOUNT LIAISON SUBJECTIVE CHIEF COMPLAINT / REASON FOR CALL Med Question PLAN The following information was provided: RN relayed provider message as follows: Pressure remains elevated. Please encourage the patient to start the nifedipine and return in 2 weeks for a repeat blood pressure check. Patient states nifedipine was sent to [facility]. Patient has not received medication yet. Patient states she will make blood pressure check appointment 2 weeks after beginningnew medication. Information/Education: patient/caller able to teach back The following references were used: provider Dr. Erickson UNT LIAISON * Telephone Encounter - Betty Sosa L.P.N. - 02/28/2024 4:05 PM ACCOUNT LIAISON Herminia is seen today for a blood [...] home but may consider in the future. UNT LIAISON documented in this encounter Plan of Treatment Upcoming Encounters Date Type Department Care Team (Latest Contact Info) Description 03/10/2024 3:20 PM ACCOUNT LIAISON Appointment Department of Laboratory Medicine in [place] [address] [place] [address] Patrick Erickson D.O. [address], [place] [address] 03/10/2024 4:00 PM ACCOUNT LIAISON Anticoagulation Visit Department of Anticoagulation in [place], [place] [address] [place] [address] Patrick Erickson D.O. [address] [place] [address] 05/15/2024 2:30 PM CDT Appointment Department of Laboratory Medicine in [place], [place] [address], [place] [address] Patrick Erickson D.O. [address] [place] [phone] 05/15/2024 3:30 PM CDT Office Visit Department of Internal Medicine in [place], [place] [address], [place] [address] Patrick Erickson D.O. [address], [place] [address] Scheduled Referrals Name Type Priority Associated Diagnoses Orde r Schedule Primary Care nurse visit (clinic) - [facility] Region; BP check; BP check only (GENERAL FARMER) Outpatient Referral Routine Expected: 03/14/2024 (Approximate), Expires: 03/30/2024 documented as of this encounter Visit Diagnoses Not on filedocumented in this encounter Additional Health Concerns Assessment Noted Time PHQ-9 Depression Total Score: 9 02/23/20 23 7:41 PM ACCOUNT LIAISON documented as of this encounter Care Teams Book Jogger Relationship Specialty Start Date End Date Patrick Erickson D.O. [address] [place] [address] PCP - General Internal Medicine 08/12/22 documented as of this encounter
--- OUTSIDE RECORDS SUMMARY | 2024-03-09 08:34 | XMS_ITS | Encounter Summary ---
Author Organization [facility] Address [address] [place] [address] Care Team Providers Care Timber Cutter Name Role Phone Patrick Erickson D.O. Primary Care Provider +1- [phone] Encounter Details Date Type Department Care Team (Latest Contact Info) Description 02/24/2024 8:55 AM RECREATIONAL THERAPIST - 02/24/2024 11:59 PM [facility] Hospital Encounter Department of Laboratory Medicine in [place] [address] [place] [phone] Patrick Erickson D.O. [address] [place] [phone] Atrial Fibrillation Paroxysmal (HCC); Monitoring For Therapeutic Drug Therapy; Fpc (Current) Anticoagulant Treatment Discharge Disposition: Home or Self Care Social History Tobacco Use Types Packs/Day Years Used Date Smoking Tobacco: Never Smokeless Tobacco: Never Alcohol Use Standard Drinks/Week Comments No 0 (1 standard drink = 0.6 oz pur e alcohol) [facility] Utilities Answer Date Recorded In the past 12 months has e [employer], gas, oil, or water [employer] threatened to shut off services in your [...] How often do you attend chur or lutheran services? More than 4 times [...] PHQ-2 Score 0 04/27/2023 [facility] of Occupat ional Health - Occupational Stress [...] AM CDT Legal Sex Female 9:57 PM RECREATIONAL THERAPIST Gender Identity Female 09/24/2022 9:59 PM CDT Sexual Orientation Straight 12/19/2021 3: 32 AM CDT documented as of this encounter Medications at Time of Discharge atorvastatin (Lipitor) 10 mg tablet TAKE 1 TABLET EVERY DAY 90 tablet 3 02/09/2024 carvediloL (COREG) 6.25 mg tablet take 1 tablet twice daily 180 tablet 3 06/24/2023 CHOLECALCIFEROL, VITAMIN D3, ORAL Take 1 capsule by mouth daily. 08/14/2015 cranberry conc/C/Bacill coag (CRANBERRY URINARY TRACT HEALTH ORAL) Take 1 tablet by mouth daily. CYANOCOBALAMIN, VITAMIN B-12, ORAL 1,000 mcg daily. 08/14/2015 cyclobenzaprine (FLEXERIL) 5 mg tablet Take 1 tablet (5 mg total) by mouth at bedtime as needed for muscle spasms. 30 tablet 06/26/2021 furosemide (Lasix) 20 mg tablet TAKE 1 TABLET (20 MG TOTAL) BY MOUTH DAILY. MAY TAKE AN EXTRA DOSE NEEDED FOR WEIGHT GAIN/EDEMA 100 tablet 3 02/17/2024 lisinopriL 40 mg tablet TAKE 1 TABLET EVERY DAY 90 tablet 3 02/09/2024 NIFEdipine (Adalat CC) 30 mg ER tablet Take 1 tablet (30 mg total) by mouth daily. 90 tablet 5 02/24/2024 potiste-ejel-vco mx-dimi-uawyoc 100 mg-150 mg- 50 mg-150 mg capsule Take by mouth 3 (three) times a day. warfarin (Jantoven) 5 mg tablet Take 7.5 mg by mouth daily. Take as directed 08/01/2022 apixaban (Eliquis) 5 mg tablet Take 1 tablet (5 mg total) by mouth 2 (two) times a day. 200 tablet 3 12/10/2023 03/03/2024 documented as of this encounter Plan of Treatment Upcoming Encounters Date Type Department Care Team (Latest Contact Info) Description 03/10/2024 3:20 PM RECREATIONAL THERAPIST Appointment Department of Laboratory Medicine in [place], [place] [address] [place] [phone] Patrick Erickson D.O. [address] [place] [address] 03/10/2024 4:00 PM RECREATIONAL THERAPIST Anticoagulation Visit Department of Anticoagulation in [place], [place] [address] [place] [address] Patrick Erickson D.O. [address] [place] [phone] 05/15/2024 2:30 PM CDT Appointment Department of Laboratory Medicine in [place], [place] [address] [place] [address] Patrick Erickson D.O. [address], [place] [address] 05/15/2024 3:30 PM CDT Office Visit Department of Internal Medicine in [place], [place] [address] [place] [address] Patrick Erickson D.O. [address], [place] [address] documented as of this encounter Procedures Procedure Name Priority Date/Time Associated Diagnosis Comments INR REFLEX, POCT, B Routine 02/24/2024 9:08 AM RECREATIONAL THERAPIST Atrial Fibrillation Paroxysmal (HCC) Monitoring For Therapeutic Drug Therapy Fpc (Current) Anticoagulant Treatment documented in this encounter Results * INR Reflex, POCT, Blood (02/24/2024 9:08 AM RECREATIONAL THERAPIST) INR Reflex, POCT, B 1.3 02/24/2024 9:07 AM RECREATIONAL THERAPIST [id number] Comment: ----ADDITIONAL INFORMATION---- Standard intensity warfarin therapeutic range: 2.0 to 3.0 High intensity warfarin therapeutic range: 2.5 to 3.5 Blood (Blood, Capillary) 02/24/2024 9:08 AM RECREATIONAL THERAPIST 02/24/2024 9:07 AM RECREATIONAL THERAPIST us Patrick Erickson D.O. LAB POCT ORDERABLES - CARLOS ENRIQUE CE Final Result [facility] [address] [place] [address], [facility] FB60 [facility] [place] [address] [facility] [place] [address] documented in this encounter Visit Diagnoses Diagnosis Atrial Fibrillation Paroxysmal (HCC) Monitoring For Therapeutic Drug Therapy Fpc (Current) Anticoagulant Treatment documented in this encounter Additional Health Concerns Assessment Noted Time PHQ-9 Depression Total Score: 9 02/23/20 23 7:41 PM RECREATIONAL THERAPIST documented as of this encounter Care Teams Timber Cutter Relationship Specialty Start Date End Date Patrick Erickson D.O. [address] [phone] PCP - General Internal Medicine 08/12/22 documented as of this encounter
--- OUTSIDE RECORDS SUMMARY | 2024-03-09 08:34 | XMS_ITS | Encounter Summary ---
Author Organization [facility] Address [address] [place] [address] Care Team Providers Care Absence Management Consultant Name Role Phone Patrick Erickson D.O. Primary Care Provider +1- [phone] Reason for Visit * Outpatient (Routine) - Authorized Specialty Diagnoses / Procedures Referred By Prosper t Referred To Contact Anticoagulation Patrick Erickson D.O. [address] [place] [address] Phone: tel: fax: [facility] Referral ID Status Reason Start Date Expiration Date V isits Requested Visits Authorized [id number] Authorized 02/10/2024 08/11/2025 300 300 Encounter Details Date Type Department Care Team (Latest Contact Info) Description 02/24/2024 10:10 AM OIL EXPELLER OPERATOR Anticoagulation Visit Department of Anticoagulation in [place], [place] [address] [place] [address] Patrick Erickson D.O. 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 Chronic Kidney Disease Or Unspecified Chronic Kidney Disease (HCC); Hyperlipidemia On Treatment; Monitoring For Therapeutic Drug Therapy; Signal Repairer (Current) Anticoagulant Treatment Social History Tobacco Use Types Packs/Day Years Used Date Smoking Tobacco: Never Smokeless Tobacco: Never Alcohol Use Standard Drinks/Week Comments No 0 (1 standard drink = 0.6 oz pur e alcohol) [facility] Utilities Answer Date Recorded In the past [...] PHQ-2 Score 0 04/27/2023 [facility] [place] of Occupat ional Health - Occupational Stress [...] living situation today? I have a [facility] place to live 07/01/2023 Education Answer Date Recorded What is the highest level of school you have completed or the highest degree you have received? Associate degree: occupational, technical, or vocational program 05/30/2022 Comments No Sex and Gender Information Value Date Recorded Sex Assigned at Female 12/19/2021 3:32 AM CDT Legal Sex Female 9:57 PM OIL EXPELLER OPERATOR Gender Identity Female 09/24/2022 9:59 PM CDT Sexual Orientation Straight 12/19/2021 3: 32 AM CDT documented as of this encounter Patient Instructions * Patient Instructions* Lois Vidal R.N. - 02/24/2024 10:10 AM OIL EXPELLER OPERATOR Your next INR will be 03/03. You will need to call the Anticoagulation Program at the time of your scheduled nurse visit or you can complete the Anticoagulation Pre-Visit Questionnaire and if no additional information is needed, your dosing can be provided via your Patient portal. To reschedule your appointment or for questions about your warfarin, please call Primary Care Anticoagulation Program at [phone] from 7:30 am to 4:30 pm. Wednesday-Wednesday [...] if you start any herbal or other xvip-rjd-caishsf product (check with your doctor, a nurse, or pharmacist). If you change your diet significantly. If you decide to stop or start using tobacco or alcohol. If you notice unusual bruising or bleeding. If you notice dark, tarry, or bright red stools or blood in your urine. If you have a painful and swollen calf. EXPELLER OPERATOR documented in this encounter Plan of Treatment Upcoming Encounters Date Type Department Care Team (Latest Contact Info) Description 03/10/2024 3:20 PM OIL EXPELLER OPERATOR Appointment Department of Laboratory Medicine in [place], [place] [address] [place] [address] Patrick Erickson D.O. [address] [place] [address] 03/10/2024 4:00 PM OIL EXPELLER OPERATOR Anticoagulation Visit Department of Anticoagulation in [place], [place] [address] [place] [address] Patrick Erickson D.O. [address] [phone] 05/15/2024 2:30 PM CDT Appointment Department of Laboratory Medicine in [place], [place] [address] [place] [address] Patrick Erickson D.O. [address] [address] 05/15/2024 3:30 PM CDT Office Visit Department of Internal Medicine in [place], [place] [address], [place] [address] Patrick Erickson D.O. [address] [address] documented as of this encounter Results * INR Reflex, POCT, Blood (03/02/2024 4:17 PM OIL EXPELLER OPERATOR) INR Reflex, POCT, B 3.5 03/02/2024 4:16 PM OIL EXPELLER OPERATOR [id number] Comment: ----ADDITIONAL INFORMATION---- Standard intensity warfarin therapeutic range: 2.0 to 3.0 High intensity warfarin therapeutic range: 2.5 to 3.5 Blood (Blood, Capillary) 03/02/2024 4:17 PM OIL EXPELLER OPERATOR 03/02/2024 4:16 PM OIL EXPELLER OPERATOR us Patrick Erickson D.O. 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 [address] [place] [address] PCP - General Internal Medicine 08/12/22 documented as of this encounter
--- OUTSIDE RECORDS SUMMARY | 2024-03-09 08:34 | XMS_ITS | Encounter Summary ---
Author Organization [facility] Address [address] [place] [address] Care Team Providers Care Social Services Name Role Phone Patrick Erickson D.O. Primary Care Provider +1- [phone] Encounter Details Date Type Department Care Team (Latest Contact Info) Description 03/02/2024 4:11 PM HYDROELECTRIC PRODUCTION TECHNICIAN - 03/02/2024 11:59 PM [facility] Hospital Encounter Department of Laboratory Medicine in [place] [address] [place] [phone] Patrick Erickson D.O. [address] [place] [phone] Atrial Fibrillation Paroxysmal (HCC); Monitoring For Therapeutic Drug Therapy; Intermediate (Current) Anticoagulant Treatment Discharge Disposition: Home or Self Care Social History Tobacco Use Types Packs/Day Years Used Date Smoking Tobacco: Never Smokeless Tobacco: Never Alcohol Use Standard Drinks/Week Comments No 0 (1 standard drink = 0.6 oz pur e alcohol) [facility] Utilities Answer Date Recorded In the past 12 months has e [employer], gas, oil, or water [employer] threatened to shut off services in your [...] How often do you attend chur or yazdanism services? More than 4 times [...] Answer Date Recorded PHQ-2 Score 0 04/27/2023 [facility] [place] of Occupat ional Health - Occupational Stress [...] living situation today? I have a [facility] place to live 07/01/2023 Education Answer Date Recorded What is the highest level of school you have completed or the highest degree you have received? Associate degree: occupational, technical, or vocational program 05/30/2022 Comments No Sex and Gender Information Value Date Recorded Sex Assigned at Female 12/19/2021 3:32 AM CDT Legal Sex Female 9:57 PM HYDROELECTRIC PRODUCTION TECHNICIAN Gender Identity Female 09/24/2022 9:59 PM [...] by mouth daily. 90 tablet 5 02/24/2024 xmxxkyl-fook-jsv bs-tqcr-vtjgdo 100 mg-150 mg- 50 mg-150 mg capsule [...] (Latest Contact Info) Description 03/10/2024 3:20 PM HYDROELECTRIC PRODUCTION TECHNICIAN Appointment Department of Laboratory Medicine in [place], [place] [address] [place] [phone] Patrick Erickson D.O. [address] [place] [address] 03/10/2024 4:00 PM HYDROELECTRIC PRODUCTION TECHNICIAN Anticoagulation Visit Department of Anticoagulation in [place], [place] [address] [place] [address] Patrick Erickson D.O. [address] [place] [phone] 05/15/2024 2:30 PM CDT Appointment Department of Laboratory Medicine in [place], [place] [address] [place] [address] Patrick Erickson D.O. [address], [place] [address] 05/15/2024 3:30 PM CDT Office Visit Department of Internal Medicine in [place], [place] [address] [place] [address] Patrick Erickson D.O. [address], [place] [address] documented as of this encounter Procedures Procedure Name Priority Date/Time Associated Diagnosis Comments INR REFLEX, POCT, B Routine 03/02/2024 4:17 PM HYDROELECTRIC PRODUCTION TECHNICIAN Atrial Fibrillation Paroxysmal (HCC) Monitoring For Therapeutic Drug Therapy Intermediate (Current) Anticoagulant Treatment documented in this encounter Results * INR Reflex, POCT, Blood (03/02/2024 4:17 PM HYDROELECTRIC PRODUCTION TECHNICIAN) INR Reflex, POCT, B 3.5 03/02/2024 4:16 PM HYDROELECTRIC PRODUCTION TECHNICIAN [id number] Comment: ----ADDITIONAL INFORMATION---- Standard intensity warfarin therapeutic range: 2.0 to 3.0 High intensity warfarin therapeutic range: 2.5 to 3.5 Blood (Blood, Capillary) 03/02/2024 4:17 PM HYDROELECTRIC PRODUCTION TECHNICIAN 03/02/2024 4:16 PM HYDROELECTRIC PRODUCTION TECHNICIAN us Patrick Erickson D.O. LAB POCT ORDERABLES - CARLOS ENRIQUE CE Final Result [facility] [address] [place] [address], [facility] FB60 [facility] in [place] [address] [facility] [place] [address] documented in this encounter Visit Diagnoses Diagnosis Atrial Fibrillation Paroxysmal (HCC) Monitoring For Therapeutic Drug Therapy Intermediate (Current) Anticoagulant Treatment documented in this encounter Additional Health Concerns Assessment Noted Time PHQ-9 Depression Total Score: 9 02/23/20 23 7:41 PM HYDROELECTRIC PRODUCTION TECHNICIAN documented as of this encounter Care Teams Social Services Relationship Specialty Start Date End Date Patrick Erickson D.O. [address] [phone] PCP - General Internal Medicine 08/12/22 documented as of this encounter
--- OUTSIDE RECORDS SUMMARY | 2024-03-09 08:35 | XMS_ITS | Encounter Summary ---
Author Organization [facility] Address [address] [place] [address] Care Team Providers Care Air Traffic Control Specialist Center Name Role Phone Patrick Erickson D.O. Primary Care Provider +1- [phone] Reason for Referral * Outpatient (Routine) - Authorized Specialty Diagnoses / Procedures Referred By Contac t Referred To Contact Anticoagulation Patrick Erickson D.O. [address], [place] [address] Phone: tel: [facility] Region Referral ID Status Reason Start Date Expiration Date V isits Requested Visits Authorized [id number] Authorized 02/10/2024 08/11/2025 300 300 HEEL BUILDER Reason for Visit * Outpatient (Routine) - Authorized Specialty Diagnoses / Procedures Referred By Contac t Referred To Contact Anticoagulation Patrick Erickson D.O. [address], [place] [address] Phone: tel: fax: [facility] Region Referral ID Status Reason Start Date Expiration Date V isits Requested Visits Authorized [id number] Authorized 01/06/2024 07/07/2025 300 300 Encounter Details Date Type Department Care Team (Latest Contact Info) Description 02/10/2024 8:30 AM HIGH HEEL BUILDER Anticoagulation Visit Department of Anticoagulation in [place], [place] [address] [place] [address] Patrick Erickson D.O. [address] [place] [address] Hypertensive Heart And Chronic Kidney [...] e alcohol) [facility] Utilities Answer Date Recorded In the past 12 months has e [employer], gas, oil, or water [employer] threatened to shut off services in your [...] AM CDT Legal Sex Female 9:57 PM HIGH HEEL BUILDER Gender Identity Female 09/24/2022 9:59 PM CDT Sexual Orientation Straight 12/19/2021 3: 32 AM CDT documented as of this encounter Patient Instructions * Patient Instructions* Angela Shukla R.N. - 02/10/2024 8:30 AM HIGH HEEL BUILDER Your next INR will be February 16. You will need to call the Anticoagulation Program at the time of your scheduled nurse visit or you can complete the Anticoagulation Pre-Visit Questionnaire and if no additional information is needed, your dosing can be provided via your Patient portal. To reschedule your appointment or for questions about your warfarin, please call Primary Care Anticoagulation Program at [phone] from 7:30 am to 4:30 pm. Wednesday-Wednesday [...] if you start any herbal or other wjbh-zub-dvkkwnr product (check with your doctor, a nurse, or pharmacist). If you change your diet significantly. If you decide to stop or start using tobacco or alcohol. If you notice unusual bruising or bleeding. If you notice dark, tarry, or bright red stools or blood in your urine. If you have a painful and swollen calf. HEEL BUILDER documented in this encounter Plan of Treatment Upcoming Encounters Date Type Department Care Team (Latest Contact Info) Description 03/10/2024 3:20 PM HIGH HEEL BUILDER Appointment Department of Laboratory Medicine in [address] [address] Patrick Erickson D.O. [address] [phone] 03/10/2024 4:00 PM HIGH HEEL BUILDER Anticoagulation Visit Department of Anticoagulation in [place], [place] [address] [place] [phone] Patrick Erickson D.O. [address] [phone] 05/15/2024 2:30 PM CDT Appointment Department of Laboratory Medicine in [place], [place] [address] [phone] Patrick Erickson D.O. [address] [phone] 05/15/2024 3:30 PM CDT Office Visit Department of Internal Medicine in [place], [place] [address] [phone] Patrick Erickson D.O. [address] [place] [phone] Scheduled Referrals Name Type Priority Associated Diagnoses Order Schedule Anticoagulation nurse visit (clinic) Outpatient Referral Routine 300 Occurrences starting 02/10/2024 until 02/09/2026 documented as of this encounter Results * INR Reflex, POCT, Blood (02/18/2024 10:47 AM HIGH HEEL BUILDER) INR Reflex, POCT, B 3.7 02/18/2024 10:46 AM HIGH HEEL BUILDER FB60 Comment: ----ADDITIONAL INFORMATION---- Standard intensity warfarin therapeutic range: 2.0 to 3.0 High intensity warfarin therapeutic range: 2.5 to 3.5 Blood (Blood, Capillary) 02/18/2024 10:47 AM HIGH HEEL BUILDER 02/18/2024 10:46 AM HIGH HEEL BUILDER us Patrick Erickson D.O. LAB POCT ORDERABLES - CARLOS ENRIQUE CE Final Result [facility] [address] [place] [address], [facility] FB60 [facility] in [address] [address] documented in this encounter Visit Diagnoses Diagnosis [...] Total Score: 9 02/23/20 23 7:41 PM HIGH HEEL BUILDER documented as of this encounter Care Teams Air Traffic Control Specialist Center Relationship Specialty Start Date End Date Patrick Erickson D.O. [address] [facility] [place] [phone] PCP - General Internal Medicine 08/12/22 documented as of this encounter
--- OUTSIDE RECORDS SUMMARY | 2024-03-09 08:35 | XMS_ITS | Encounter Summary ---
Author Organization [facility] Address [address] [place] [address] Care Team Providers Care Riveting Machine Operator Automatic Name Role Phone Patrick Erickson D.O. Primary Care Provider +1- [phone] Encounter Details Date Type Department Care Team (Latest Contact Info) Description 02/10/2024 7:48 AM INTERMEDIATE MANAGER - 02/10/2024 11:59 PM [facility] Hospital Encounter Department of Laboratory Medicine in [place] [address] [place] [phone] Patrick Erickson D.O. 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 Kidney Disease Or Unspecified Chronic Kidney Disease (HCC); Hyperlipidemia On Treatment; Atrial Fibrillation Paroxysmal (HCC); Monitoring For Therapeutic Drug Therapy; Supervisor Sewer Maintenance (Current) Anticoagulant Treatment Discharge Disposition: Home or Self Care Social History Tobacco Use Types Packs/Day Years Used Date Smoking Tobacco: Never Smokeless Tobacco: Never Alcohol Use Standard Drinks/Week Comments No 0 (1 standard drink = 0.6 oz pur e alcohol) [facility] Utilities Answer Date Recorded In the past 12 months has e [employer], gas, oil, or water [employer] threatened to shut off services in your [...] Answer Date Recorded PHQ-2 Score 0 04/27/2023 [facility] [place] of Occupat ional Health - Occupational Stress [...] AM CDT Legal Sex Female 9:57 PM INTERMEDIATE MANAGER Gender Identity Female 09/24/2022 9:59 PM CDT [...] needed for muscle spasms. 30 tablet 06/26/2021 lisinopriL 40 mg tablet TAKE 1 TABLET EVERY DAY 90 tablet 3 02/09/2024 bgxmpml-qrqt-oua dg-xxpf-lglsjj 100 mg-150 mg- 50 mg-150 mg capsule Take by mouth 3 (three) times a day. warfarin (Jantoven) 5 mg tablet Take 7.5 mg by mouth daily. Take as directed 08/01/2022 amLODIPine (Norvasc) 2.5 mg tablet Take 1 tablet (2.5 mg total) by mouth daily. 90 tablet 1 01/14/2024 02/24/2024 apixaban (Eliquis) 5 mg tablet Take 1 tablet (5 mg total) by mouth 2 (two) times a day. 200 tablet 3 12/10/2023 03/03/2024 furosemide (LASIX) 20 mg tablet TAKE 1 TABLET (20 MG TOTAL) BY MOUTH DAILY. MAY TAKE AN EXTRA DOSE NEEDED FOR WEIGHT GAIN/EDEMA 100 tablet 3 04/28/2023 02/17/2024 documented as of this encounter Plan of Treatment Upcoming Encounters Date Type Department Care Team (Latest Contact Info) Description 03/10/2024 3:20 PM INTERMEDIATE MANAGER Appointment Department of Laboratory Medicine in [place], [place] [address] [place] [phone] Patrick Erickson D.O. [address], [place] [address] 03/10/2024 4:00 PM INTERMEDIATE MANAGER Anticoagulation Visit Department of Anticoagulation in [place], [place] [address] [place] [address] Patrick Erickson D.O. [address], [place] [address] 05/15/2024 2:30 PM CDT Appointment Department of Laboratory Medicine in [place], [place] [address] [place] [phone] Patrick Erickson D.O. [address], [place] [address] 05/15/2024 3:30 PM CDT Office Visit Department of Internal Medicine in [place], [place] [address] [place] [phone] Patrick Erickson D.O. 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 Disease Or Unspecified Chronic Kidney Disease (HCC) Hyperlipidemia On Treatment Atrial Fibrillation Paroxysmal (HCC) Monitoring For Therapeutic Drug Therapy Supervisor Sewer Maintenance (Current) Anticoagulant Treatment documented in this encounter Results * INR Reflex, POCT, Blood (02/10/2024 7:54 AM INTERMEDIATE MANAGER) INR Reflex, POCT, B 1.7 02/10/2024 7:54 AM INTERMEDIATE MANAGER [id number] Comment: ----ADDITIONAL INFORMATION---- Standard intensity warfarin therapeutic range: 2.0 to 3.0 High intensity warfarin therapeutic range: 2.5 to 3.5 Blood (Blood, Capillary) 02/10/2024 7:54 AM INTERMEDIATE MANAGER 02/10/2024 7:54 AM INTERMEDIATE MANAGER us Patrick Erickson D.O. LAB POCT ORDERABLES - CARLOS ENRIQUE CE Final Result [facility] [address] [place] [address], [email or web address] FB60 [facility] in [place] [address] [place] [address] documented in this encounter Visit Diagnoses Diagnosis [...] Total Score: 9 02/23/20 23 7:41 PM INTERMEDIATE MANAGER documented as of this encounter Care Teams Riveting Machine Operator Automatic Relationship Specialty Start Date End Date Patrick Erickson D.O. [address] [place] [phone] PCP - General Internal Medicine 08/12/22 documented as of this encounter
--- OUTSIDE RECORDS SUMMARY | 2024-03-09 08:35 | XMS_ITS | Encounter Summary ---
Author Organization [facility] Address [address] [place] [address] Care Team Providers Care Air Drier Name Role Phone Patrick Erickson D.O. Primary Care Provider +1- [phone] Encounter Details Date Type Department Care Team (Latest Contact Info) Description 02/18/2024 10:40 AM PROPERTY MAINTENANCE SUPERVISOR - 02/18/2024 11:59 PM [facility] Hospital Encounter Department of Laboratory Medicine in [place] [address] [place] [phone] Patrick Erickson D.O. 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 Or Unspecified Chronic Kidney Disease (HCC); Hyperlipidemia On Treatment; Atrial Fibrillation Paroxysmal (HCC); Monitoring For Therapeutic Drug Therapy; [facility] (Current) Anticoagulant Treatment Discharge Disposition: Home or Self Care Social History Tobacco Use Types Packs/Day Years Used Date Smoking Tobacco: Never Smokeless Tobacco: Never Alcohol Use Standard Drinks/Week Comments No 0 (1 standard drink = 0.6 oz pur e alcohol) [facility] Utilities Answer Date Recorded In the past 12 months has e [employer], gas, oil, or water [employer] threatened to shut off services in your [...] often do you attend chur ch or sabianism services? More than 4 times per year [...] Answer Date Recorded PHQ-2 Score 0 04/27/2023 [facility] [place] of Occupat ional Health - Occupational Stress [...] your living situation today? I have a channing home place to live 07/01/2023 Education Answer Date Recorded What is the highest level of school you have completed or the highest degree you have received? Associate degree: occupational, technical, or vocational program 05/30/2022 Comments No Sex and Gender Information Value Date Recorded Sex Assigned at Female 12/19/2021 3:32 AM CDT Legal Sex Female 9:57 PM PROPERTY MAINTENANCE SUPERVISOR Gender Identity Female 09/24/2022 9:59 PM [...] TABLET EVERY DAY 90 tablet 3 02/09/2024 [id number]-yrgs-igb vl-letr-ttziyn 100 mg-150 mg- 50 mg-150 mg capsule [...] (Latest Contact Info) Description 03/10/2024 3:20 PM PROPERTY MAINTENANCE SUPERVISOR Appointment Department of Laboratory Medicine in [place], [place] [address] [place] [phone] Patrick Erickson D.O. [address] [place] [address] 03/10/2024 4:00 PM PROPERTY MAINTENANCE SUPERVISOR Anticoagulation Visit Department of Anticoagulation in [place], [place] [address] [place] [address] Patrick Erickson D.O. [address] [phone] 05/15/2024 2:30 PM CDT Appointment Department of Laboratory Medicine in [place], [place] [address] [address] Patrick Erickson D.O. [address] [address] 05/15/2024 3:30 PM CDT Office Visit Department of Internal Medicine in [place], [place] [address] [phone] Patrick Erickson D.O. 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 Kidney Disease Or Unspecified Chronic Kidney Disease (HCC) Hyperlipidemia On Treatment Atrial Fibrillation Paroxysmal (HCC) Monitoring For Therapeutic Drug Therapy [facility] (Current) Anticoagulant Treatment documented in this encounter Results * INR Reflex, POCT, Blood (02/18/2024 10:47 AM PROPERTY MAINTENANCE SUPERVISOR) INR Reflex, POCT, B 3.7 02/18/2024 10:46 AM PROPERTY MAINTENANCE SUPERVISOR [id number] Comment: ----ADDITIONAL INFORMATION---- Standard intensity warfarin therapeutic range: 2.0 to 3.0 High intensity warfarin therapeutic range: 2.5 to 3.5 Blood (Blood, Capillary) 02/18/2024 10:47 AM PROPERTY MAINTENANCE SUPERVISOR 02/18/2024 10:46 AM PROPERTY MAINTENANCE SUPERVISOR Patrick Erickson D.O. LAB POCT ORDERABLES - CARLOS ENRIQUE CE Final Result [facility] [address] [place] [address], [facility] FB60 [facility] [place] [facility] in [place] [address] [place] [address] documented in this encounter Visit Diagnoses Diagnosis [...] Total Score: 9 02/23/20 23 7:41 PM PROPERTY MAINTENANCE SUPERVISOR documented as of this encounter Care Teams Air Drier Relationship Specialty Start Date End Date Patrick Erickson D.O. [address] [place] [address] PCP - General Internal Medicine 08/12/22 documented as of this encounter
--- OUTSIDE RECORDS SUMMARY | 2024-03-09 08:35 | XMS_ITS | Encounter Summary ---
Author Organization [facility] Address [address] [place] [address] Care Team Providers Care Collection Administrator Name Role Phone Patrick Erickson D.O. Primary Care Provider +1- [phone] Reason for Visit * Outpatient (Routine) - Authorized Specialty Diagnoses / Procedures Referred By Prosper t Referred To Contact Anticoagulation Patrick Erickson D.O. [address] [place] [address] Phone: tel: fax: [facility] Referral ID Status Reason Start Date Expiration Date V isits Requested Visits Authorized [id number] Authorized 02/10/2024 08/11/2025 300 300 Encounter Details Date Type Department Care Team (Latest Contact Info) Description 02/18/2024 11:30 AM LAST WAXER Anticoagulation Visit Department of Anticoagulation in [place], [place] [address] [place] [address] Patrick Erickson D.O. 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 Kidney Disease Or Unspecified Chronic Kidney Disease (HCC) (Primary Dx); Hyperlipidemia On Treatment; Atrial Fibrillation Paroxysmal (HCC); Monitoring For Therapeutic Drug Therapy; Lia[facility] (Current) Anticoagulant Treatment Social History Tobacco Use Types Packs/Day Years Used Date Smoking Tobacco: Never Smokeless Tobacco: Never Alcohol Use Standard Drinks/Week Comments No 0 (1 standard drink = 0.6 oz pur e alcohol) [facility] Utilities Answer Date Recorded In the [...] Date Recorded PHQ-2 Score 0 04/27/2023 [facility] of Occupat ional Health - Occupational Stress [...] AM CDT Legal Sex Female 9:57 PM LAST WAXER Gender Identity Female 09/24/2022 9:59 PM CDT Sexual Orientation Straight 12/19/2021 3: 32 AM CDT documented as of this encounter Patient Instructions * Patient Instructions* Cullen Guillen RMoraima. - 02/18/2024 11:30 AM LAST WAXER Your next INR will be WednesdayFebruary 24. You will need to call the Anticoagulation Program at the time of your scheduled nurse visit or you can complete the Anticoagulation Pre-Visit Questionnaireand if no additional information is needed, your dosing can be provided via your Patient portal. To reschedule your appointment or for questions about your warfarin, please call Primary Care Anticoagulation Program at [phone] from 7:30 am to 4:30 pm. Wednesday-Wednesday [...] if you start any herbal or other xsse-omg-gbtszdr product (check with your doctor, a nurse, or pharmacist). If you change your diet significantly. If you decide to stop or start using tobacco or alcohol. If you notice unusual bruising or bleeding. If you notice dark, tarry, or bright red stools or blood in your urine. If you have a painful and swollen calf. WAXER documented in this encounter Plan of Treatment Upcoming Encounters Date Type Department Care Team (Latest Contact Info) Description 03/10/2024 3:20 PM LAST WAXER Appointment Department of Laboratory Medicine in [place], [place] [address] [place] [address] Patrick Erickson D.O. [address] [place] [address] 03/10/2024 4:00 PM LAST WAXER Anticoagulation Visit Department of Anticoagulation in [place], [place] [address] [place] [address] Patrick Erickson D.O. [address] [place] [phone] 05/15/2024 2:30 PM CDT Appointment Department of Laboratory Medicine in [place], [place] [address] [place] [phone] Patrick Erickson D.O. [address] [address] 05/15/2024 3:30 PM CDT Office Visit Department of Internal Medicine in [place], [place] [address] [address] Patrick Erickson D.O. [address] [address] documented as of this encounter Results * INR Reflex, POCT, Blood (02/24/2024 9:08 AM LAST WAXER) [facility] INR Reflex, POCT, B 1.3 02/24/2024 9:07 AM LAST WAXER FB60 Comment: ----ADDITIONAL INFORMATION---- Standard intensity warfarin therapeutic range: 2.0 to 3.0 High intensity warfarin therapeutic range: 2.5 to 3.5 Blood (Blood, Capillary) 02/24/2024 9:08 AM LAST WAXER 02/24/2024 9:07 AM LAST WAXER us Patrick Erickson D.O. LAB POCT ORDERABLES - CARLOS ENRIQUE CE Final Result [facility] [address] [place] [address], [facility] FB60 [facility] [place] [address] [place] [address] documented in this encounter Visit Diagnoses Diagnosis [...] Total Score: 9 02/23/20 23 7:41 PM LAST WAXER documented as of this encounter Care Teams Collection Administrator Relationship Specialty Start Date End Date Patrick Erickson D.O. [address] [phone] PCP - General Internal Medicine 08/12/22 documented as of this encounter
--- OUTSIDE RECORDS SUMMARY | 2024-03-09 08:35 | XMS_ITS | Encounter Summary ---
Author Organization [facility] Address [address] [place] [address] Care Team Providers Care Tai Chi Instructor Name Role Phone Patrick Erickson D.O. Primary Care Provider +1- [phone] Reason for Referral * Outpatient (Routine) - Authorized Specialty Diagnoses / Procedures Referred By Prosper t Referred To Contact Patrick Erickson D.O. [address] [place] [address] Phone: tel: fax: [facility] Region Referral ID Status Reason Start Date Expiration Date V isits Requested Visits Authorized [id number] Authorized 02/24/2024 08/25/2025 1 1 DRILLER Reason for Visit * Reason Onset Date Comments Med Question 02/22/2024 Encounter Details Date Type Department Care Team (Late st Contact Info) Description 02/22/2024 Clinical Communication Department of Internal Medicine in [place], [place] [address] [place] [address] Patrick Erickson D.O. [address] [place] [address] Med Question Social History Tobacco Use Types Packs/Day Years Used Date Smoking Tobacco: Never Smokeless Tobacco: Never Alcohol Use Standard Drinks/Week Comments No 0 (1 standard drink = 0.6 oz pur e alcohol) [facility] Utilities Answer Date Recorded In the [...] Answer Date Recorded PHQ-2 Score 0 04/27/2023 [facility] [place] of Occupat ional [facility] - Occupational Stress Questionnaire Answer Date [...] AM CDT Legal Sex Female 9:57 PM WASH DRILLER Gender Identity Female 09/24/2022 9:59 PM CDT Sexual Orientation Straight 12/19/2021 3: 32 AM CDT documented as of this encounter Miscellaneous Notes * Telephone Encounter - Gianna Eaton C.M.A. - 02/24/2024 12:10 PM WASH DRILLER SUBJECTIVE CHIEF COMPLAINT / REASON FOR CALL Med Question Information Discussed Per Dr. Erickson, Given no significant improvement despite taking the medication later in the evening I think we should discontinue it. I would like to switch her to a cousin medication known as nifedipine which comes in an extended release formulation. Hopefully with the extended release formulation she will experience fewer dose related side effects and improvement in blood pressure. I have goneahead and sent this to her mail order pharmacy, and she should initiated as soon as it arrives. We should recheck her blood pressure in about 2 weeks. Patient added that early this morning when she got up from bed she almost fell so she is not going to take the amlodipine any more. PLAN Disposition/Recommendation: as noted above Information/Education: patient/caller able to teach back Caller agreeable to plan of care: yes The following references were used: provider Dr. Erickson DRILLER DRILLER * Telephone Encounter - Gianna Eaton C.M.A. - 02/22/2024 3:10 PM WASH DRILLER SUBJECTIVE CHIEF COMPLAINT / REASON FOR CALL Med Question Information Discussed Been taking at bedtime but if she wakes at night to go to the bathroom, she still feels very woozy.If she wakes at 0500 she still feels this but then it's better a little later and for the rest of the day. It does worry her. She said she was to report back on this. PLAN Disposition/Recommendation: notified provider and awaiting recommendations Information/Education: patient/caller able to teach back Caller agreeable to plan of care: yes The following references were used: none DRILLER documented in this encounter Plan of Treatment Upcoming Encounters Date Type Department Care Team (Latest Contact Info) Description 03/10/2024 3:20 PM WASH DRILLER Appointment Department of Laboratory Medicine in [place], [place] [address] [place] [address] Patrick Erickson D.O. [address] [address] 03/10/2024 4:00 PM WASH DRILLER Anticoagulation Visit Department of Anticoagulation in [place], [place] [address] [place] [address] Patrick Erickson D.O. [address] [place] [phone] 05/15/2024 2:30 PM CDT Appointment Department of Laboratory Medicine in [place], [place] [address] [place] [phone] Patrick Erickson D.O. [address] [address] 05/15/2024 3:30 PM CDT Office Visit Department of Internal Medicine in [place], [place] [address] [place] [phone] Patrick Erickson D.O. [address] [address] Scheduled Referrals Name Type Priority Associated Diagnoses Orde r Schedule Primary Care nurse visit (clinic) - [facility] Region; BP check; BP check only (RISK INVESTIGATOR) Outpatient Referral Routine Expected: 03/09/2024 (Approximate), Expires: 03/25/2024 documented as of this encounter Visit Diagnoses Not on filedocumented in this encounter Additional Health Concerns Assessment Noted Time PHQ-9 Depression Total Score: 9 02/23/20 23 7:41 PM WASH DRILLER documented as of this encounter Care Teams Tai Chi Instructor Relationship Specialty Start Date End Date Ptarick Erickson D.O. [address] [place] [phone] PCP - General Internal Medicine 08/12/22 documented as of this encounter
--- OUTSIDE RECORDS SUMMARY | 2024-03-09 08:35 | XMS_ITS | Encounter Summary ---
Author Organization [facility] Address [address] [place] [address] Care Team Providers Care Blue Line Trimmer Name Role Phone Patrick Erickson D.O. Primary Care Provider +1- [phone] Encounter Details Date Type Department Care Team (Late st Contact Info) Description 02/14/2024 Clinical Communication Department of Internal Medicine in [place], [place] [address] [place] [phone] Patrick Erickson D.O. [address] [place] [address] Social History Tobacco Use Types Packs/Day Years Used Date Smoking Tobacco: Never Smokeless Tobacco: Never Alcohol Use Standard Drinks/Week Comments No 0 (1 standard drink = 0.6 oz pur e alcohol) [facility] Utilities Answer Date Recorded In the past 12 months has e [employer], gas, oil, or water [employer] threatened to shut off services in your [...] often do you attend chur ch or anabaptism services? More than 4 times [...] Answer Date Recorded PHQ-2 Score 0 04/27/2023 [facility] of Occupat ional Health - Occupational Stress [...] AM CDT Legal Sex Female 9:57 PM DENSITY CONTROL PUNCHER Gender Identity Female 09/24/2022 9:59 PM CDT Sexual Orientation Straight 12/19/2021 3: 32 AM CDT documented as of this encounter Plan of Treatment Upcoming Encounters Date Type Department Care Team (Latest Contact Info) Description 03/10/2024 3:20 PM DENSITY CONTROL PUNCHER Appointment Department of Laboratory Medicine in [address] [place] [address] Patrick Erickson D.O. [address] [place] [address] 03/10/2024 4:00 PM DENSITY CONTROL PUNCHER Anticoagulation Visit Department of Anticoagulation in [place], [place] [address] [place] [address] Patrick Erickson D.O. [address] [phone] 05/15/2024 2:30 PM CDT Appointment Department of Laboratory Medicine in [place], [place] [address] [address] Patrick Erickson D.O. [address] [phone] 05/15/2024 3:30 PM CDT Office Visit Department of Internal Medicine in [place], [place] [address] [address] Patrick Erickson D.O. [address] [phone] documented as of this encounter Visit Diagnoses Not on filedocumented in this encounter Additional Health Concerns Assessment Noted Time PHQ-9 Depression Total Score: 9 02/23/20 23 7:41 PM DENSITY CONTROL PUNCHER documented as of this encounter Care Teams Blue Line Trimmer Relationship Specialty Start Date End Date Patrick Erickson D.O. [address] [phone] PCP - General Internal Medicine 08/12/22 documented as of this encounter
--- OUTSIDE RECORDS SUMMARY | 2024-03-09 08:35 | XMS_ITS | Encounter Summary ---
Author Organization [facility] Address [address] [place] [address] Care Team Providers Care Handle And Vent Machine Operator Name Role Phone Patrick Erickson D.O. Primary Care Provider +1- [phone] Reason for Visit * Reason Comments Med Refill Encounter Details Date Type Department Care Team (Late st Contact Info) Description 02/16/2024 Refill Department of Internal Medicine in [place], [place] [address] [place] [phone] Soheila Zapata P.A.-Ashish., M.S. [address] [place] [address] Med Refill Social History Tobacco Use [...] often do you attend chur ch or holiness services? More than 4 times per year [...] AM CDT Legal Sex Female 9:57 PM MUSCULOSKELETAL PHYSICIAN Gender Identity Female 09/24/2022 9:59 PM CDT Sexual Orientation Straight 12/19/2021 3: 32 AM CDT documented as of this encounter Plan of Treatment Upcoming Encounters Date Type Department Care Team (Latest Contact Info) Description 03/10/2024 3:20 PM MUSCULOSKELETAL PHYSICIAN Appointment Department of Laboratory Medicine in [place] [address] [facility] [place] [phone] Patrick Erickson D.O. [address] [place] [phone] 03/10/2024 4:00 PM MUSCULOSKELETAL PHYSICIAN Anticoagulation Visit Department of Anticoagulation in [place], [place] [address] [place] [address] Patrick Erickson D.O. [address] [phone] 05/15/2024 2:30 PM CDT Appointment Department of Laboratory Medicine in [place], [place] [address] [phone] Patrick Erickson D.O. [address] [phone] 05/15/2024 3:30 PM CDT Office Visit Department of Internal Medicine in [place], [place] [address] [phone] Patrick Erickson D.O. [address] [phone] documented as of this encounter Visit Diagnoses Not on filedocumented in this encounter Additional Health Concerns Assessment Noted Time PHQ-9 Depression Total Score: 9 02/23/20 23 7:41 PM MUSCULOSKELETAL PHYSICIAN documented as of this encounter Care Teams Handle And Vent Machine Operator Relationship Specialty Start Date End Date Patrick Erickson D.O. [address] [phone] PCP - General Internal Medicine 08/12/22 documented as of this encounter
--- OUTSIDE RECORDS SUMMARY | 2024-03-09 08:35 | XMS_ITS | Encounter Summary ---
Author Organization [facility] Address [address] [place] [address] Care Team Providers Care Machine Hoop Maker Helper Name Role Phone Patrick Erickson D.O. Primary Care Provider [phone]- [phone] Encounter Details Date Type Department Care Team (Latest Contact Info) Description 01/27/2024 7:50 AM FLEET SALES MANAGER - 01/27/2024 11:59 PM [facility] Hospital Encounter Department of Laboratory Medicine in [place] [address] [place] [phone] Patrick Erickson D.O. 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 Or Unspecified Chronic Kidney Disease (HCC); Hyperlipidemia On Treatment; Atrial Fibrillation Paroxysmal (HCC); Monitoring For Therapeutic Drug Therapy; Psychologist Counseling (Current) Anticoagulant Treatment Discharge Disposition: Home or Self Care Social History Tobacco Use Types Packs/Day Years Used Date Smoking Tobacco: Never Smokeless Tobacco: Never Alcohol Use Standard Drinks/Week Comments No 0 (1 standard drink = 0.6 oz pur e alcohol) [facility] Utilities Answer Date Recorded In the past 12 months has e [employer], gas, oil, or water [employer] threatened to shut off services in your [...] Score 0 04/27/2023 [facility] of Occupat ional Health - Occupational Stress [...] living situation today? I have a [facility] place to live 07/01/2023 Education Answer Date Recorded What is the highest level of school you have completed or the highest degree you have received? Associate degree: occupational, technical, or vocational program 05/30/2022 Comments No Sex and Gender Information Value Date Recorded Sex Assigned at Female 12/19/2021 3:32 AM CDT Legal Sex Female 9:57 PM FLEET SALES MANAGER Gender Identity Female 09/24/2022 9:59 PM CDT Sexual Orientation Straight 12/19/2021 3: 32 AM CDT documented as of this encounter Medications at Time of Discharge carvediloL (COREG) 6.25 mg tablet take 1 [...] needed for muscle spasms. 30 tablet 06/26/2021 difvwcs-ycvr-jzf as-uvsn-dhlefm 100 mg-150 mg- 50 mg-150 mg capsule [...] a day. 200 tablet 3 12/10/2023 03/03/2024 atorvastatin (LIPITOR) 10 mg tablet take 1 tablet every day 90 tablet 3 04/21/2023 02/09/2024 furosemide (LASIX) 20 mg tablet TAKE 1 TABLET (20 MG TOTAL) BY MOUTH DAILY. MAY TAKE AN EXTRA DOSE NEEDED FOR WEIGHT GAIN/EDEMA 100 tablet 3 04/28/2023 02/17/2024 lisinopriL (PRINIVIL,ZESTRI L) 40 mg tablet take 1 tablet every day 90 tablet 3 04/21/2023 02/09/2024 documented as of this encounter Plan of Treatment Upcoming Encounters Date Type Department Care Team (Latest Contact Info) Description 03/10/2024 3:20 PM FLEET SALES MANAGER Appointment Department of Laboratory Medicine in [place], [place] [address] [facility] [place] [address] Patrick Erickson D.O. [address] [facility] [place] [phone] 03/10/2024 4:00 PM FLEET SALES MANAGER Anticoagulation Visit Department of Anticoagulation in [place], [place] [address] [place] [address] Patrick Ericskon D.O. [address] [address] 05/15/2024 2:30 PM CDT Appointment Department of Laboratory Medicine in [place], [place] [address], [place] [address] Patrick Erickson D.O. [address] [place] [address] 05/15/2024 3:30 PM CDT Office Visit Department of Internal Medicine in [place], [place] [address], [place] [address] Patrick Erickson D.O. 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 4 Chronic Kidney Disease Or Unspecified Chronic Kidney Disease (HCC) Hyperlipidemia On Treatment Atrial Fibrillation Paroxysmal (HCC) Monitoring For Therapeutic Drug Therapy Group Home (Current) Anticoagulant Treatment documented in this encounter Results * INR Reflex, POCT, Blood (01/27/2024 8:08 AM FLEET SALES MANAGER) INR Reflex, POCT, B 2.6 01/27/2024 8:07 AM FLEET SALES MANAGER [id number] Comment: ----ADDITIONAL INFORMATION---- Standard intensity warfarin therapeutic range: 2.0 to 3.0 High intensity warfarin therapeutic range: 2.5 to 3.5 Blood (Blood, Capillary) 01/27/2024 8:08 AM FLEET SALES MANAGER 01/27/2024 8:07 AM FLEET SALES MANAGER us Patrick Erickson D.O. 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 [address] [place] [address] PCP - General Internal Medicine 08/12/22 documented as of this encounter
--- OUTSIDE RECORDS SUMMARY | 2024-03-09 08:35 | XMS_ITS | Encounter Summary ---
Author Organization [facility] Address [address] [place] [address] Care Team Providers Care Supervisor Special Education Name Role Phone Patrick Erickson D.O. Primary Care Provider +1- [phone] Encounter Details Date Type Department Care Team (Latest Contact Info) Description 01/31/2024 10:34 AM SETTER MACHINE - 01/31/2024 11:59 PM [facility] Hospital Encounter Department of Laboratory Medicine in [place] [address] [place] [phone] Patrick Erickson D.O. 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 Disease Or Unspecified Chronic Kidney Disease (HCC); Hyperlipidemia On Treatment; Atrial Fibrillation Paroxysmal (HCC); Monitoring For Therapeutic Drug Therapy; Snf (Current) Anticoagulant Treatment Discharge Disposition: Home or Self Care Social History Tobacco Use Types Packs/Day Years Used Date Smoking Tobacco: Never Smokeless Tobacco: Never Alcohol Use Standard Drinks/Week Comments No 0 (1 standard drink = 0.6 oz pur e alcohol) [facility] Utilities Answer Date Recorded In the past 12 months has e [employer], gas, oil, or water [employer] threatened to shut off services in your [...] Recorded PHQ-2 Score 0 04/27/2023 [facility] of Occupat ional Health - Occupational Stress [...] AM CDT Legal Sex Female 9:57 PM SETTER MACHINE Gender Identity Female 09/24/2022 9:59 PM CDT [...] needed for muscle spasms. 30 tablet 06/26/2021 imvkrja-oayq-orn qo-vccn-bcrnoi 100 mg-150 mg- 50 mg-150 mg capsule [...] (Latest Contact Info) Description 03/10/2024 3:20 PM SETTER MACHINE Appointment Department of Laboratory Medicine in [place], [place] [address] [facility] [place] [address] Patrick Erickson D.O. [address] [facility] [place] [phone] 03/10/2024 4:00 PM SETTER MACHINE Anticoagulation Visit Department of Anticoagulation in [place], [place] [address] [place] [address] Patrick Erickson D.O. [address], [place] [address] 05/15/2024 2:30 PM CDT Appointment Department of Laboratory Medicine in [place], [place] [address], [place] [address] Patrick Erickson D.O. [address] [place] [address] 05/15/2024 3:30 PM CDT Office Visit Department of Internal Medicine in [place], [place] [address], [place] [address] Patrick Erickson D.O. 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 Disease Or Unspecified Chronic Kidney Disease (HCC) Hyperlipidemia On Treatment Atrial Fibrillation Paroxysmal (HCC) Monitoring For Therapeutic Drug Therapy Snf (Current) Anticoagulant Treatment documented in this encounter Results * INR Reflex, POCT, Blood (01/31/2024 10:41 AM SETTER MACHINE) INR Reflex, POCT, B 4.0 01/31/2024 10:40 AM SETTER MACHINE [id number] Comment: ----ADDITIONAL INFORMATION---- Standard intensity warfarin therapeutic range: 2.0 to 3.0 High intensity warfarin therapeutic range: 2.5 to 3.5 Blood (Blood, Capillary) 01/31/2024 10:41 AM SETTER MACHINE 01/31/2024 10:40 AM SETTER MACHINE us Patrick Erickson D.O. 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 [address] [place] [address] PCP - General Internal Medicine 08/12/22 documented as of this encounter
--- OUTSIDE RECORDS SUMMARY | 2024-03-09 08:35 | XMS_ITS | Encounter Summary ---
Author Organization [facility] Address [address] [place] [address] Care Team Providers Care Starch Mangle Tender Name Role Phone Patrick Erickson D.O. Primary Care Provider +1- [phone] Reason for Visit * Outpatient (Routine) - Authorized Specialty Diagnoses / Procedures Referred By Prosper t Referred To Contact Anticoagulation Patrick Erickson D.O. [address] [place] [address] Phone: tel: fax: [facility] Referral ID Status Reason Start Date Expiration Date V isits Requested Visits Authorized [id number] Authorized 01/06/2024 07/07/2025 300 300 Encounter Details Date Type Department Care Team (Latest Contact Info) Description 01/27/2024 8:40 AM HAT AND CAP DRYING ROOM ATTENDANT Anticoagulation Visit Department of Anticoagulation in [place], [place] [address] [place] [address] Patrick Erickson D.O. 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 Kidney Disease Or Unspecified Chronic Kidney Disease (HCC) (Primary Dx); Hyperlipidemia On Treatment; Atrial Fibrillation Paroxysmal (HCC); Monitoring For Therapeutic Drug Therapy; Ice Skater (Current) Anticoagulant Treatment Social History Tobacco Use Types Packs/Day Years Used Date Smoking Tobacco: Never Smokeless Tobacco: Never Alcohol Use Standard Drinks/Week Comments No 0 (1 standard drink = 0.6 oz pur e alcohol) [facility] Utilities Answer Date Recorded In the past [...] Date Recorded PHQ-2 Score 0 04/27/2023 [facility] [place] of Occupat ional Health - Occupational Stress [...] your living situation today? I have a [employer] place to live 07/01/2023 Education Answer Date Recorded What is the highest level of school you have completed or the highest degree you have received? Associate degree: occupational, technical, or vocational program 05/30/2022 Comments No Sex and Gender Information Value Date Recorded Sex Assigned at Female 12/19/2021 3:32 AM CDT Legal Sex Female 9:57 PM HAT AND CAP DRYING ROOM ATTENDANT Gender Identity Female 09/24/2022 9:59 PM CDT Sexual Orientation Straight 12/19/2021 3: 32 AM CDT documented as of this encounter Patient Instructions * Patient Instructions* Maine Sorensen RMoraima. - 01/27/2024 8:40 AM HAT AND CAP DRYING ROOM ATTENDANT Your next INR will be 01/31/24. You will need to call the Anticoagulation Program at the time of your scheduled nurse visit or you can complete the Anticoagulation Pre-Visit Questionnaire and if no additional information is needed, your dosing can be provided via your Patient portal. To reschedule your appointment or for questions about your warfarin, please call Primary Care Anticoagulation Program at [phone] from 7:30 am to 4:30 pm. Wednesday-Wednesday [...] if you start any herbal or other [id number] product (check with your doctor, a nurse, or pharmacist). If you change your diet significantly. If you decide to stop or start using tobacco or alcohol. If you notice unusual bruising or bleeding. If you notice dark, tarry, or bright red stools or blood in your urine. If you have a painful and swollen calf. AND CAP DRYING ROOM ATTENDANT documented in this encounter Plan of Treatment Upcoming Encounters Date Type Department Care Team (Latest Contact Info) Description 03/10/2024 3:20 PM HAT AND CAP DRYING ROOM ATTENDANT Appointment Department of Laboratory Medicine in [place], [place] [address] [place] [address] Patrick Erickson D.O. [address] [place] [address] 03/10/2024 4:00 PM HAT AND CAP DRYING ROOM ATTENDANT Anticoagulation Visit Department of Anticoagulation in [place], [place] [address] [place] [address] Patrick Erickson D.O. [address] [address] 05/15/2024 2:30 PM CDT Appointment Department of Laboratory Medicine in [place], [place] [address] [place] [address] Patrick Erickson D.O. [address] [address] 05/15/2024 3:30 PM CDT Office Visit Department of Internal Medicine in [place], [place] [address] [address] Patrick Erickson D.O. [address] [address] documented as of this encounter Results * INR Reflex, POCT, Blood (01/31/2024 10:41 AM HAT AND CAP DRYING ROOM ATTENDANT) [facility] INR Reflex, POCT, B 4.0 01/31/2024 10:40 AM HAT AND CAP DRYING ROOM ATTENDANT [id number] Comment: ----ADDITIONAL INFORMATION---- Standard intensity warfarin therapeutic range: 2.0 to 3.0 High intensity warfarin therapeutic range: 2.5 to 3.5 Blood (Blood, Capillary) 01/31/2024 10:41 AM HAT AND CAP DRYING ROOM ATTENDANT 01/31/2024 10:40 AM HAT AND CAP DRYING ROOM ATTENDANT Patrick Erickson D.O. LAB POCT ORDERABLES - CARLOS ENRIQUE CE Final Result [facility] [address] [place] [address], [facility] FB60 [facility] in [place] [address] [place] [address] documented in this encounter Visit Diagnoses Diagnosis [...] Total Score: 9 02/23/20 23 7:41 PM HAT AND CAP DRYING ROOM ATTENDANT documented as of this encounter Care Teams Starch Mangle Tender Relationship Specialty Start Date End Date Patrick Erickson D.O. [address] [phone] PCP - General Internal Medicine 08/12/22 documented as of this encounter
--- OUTSIDE RECORDS SUMMARY | 2024-03-09 08:35 | XMS_ITS | Encounter Summary ---
Author Organization [facility] Address [address] [place] [address] Care Team Providers Care Foreign Broadcast Specialist Name Role Phone Patrick Erickson D.O. Primary Care Provider +1- [phone] Reason for Referral * Outpatient (Routine) - Authorized Specialty Diagnoses / Procedures Referred By Prosper monsivais Referred To Contact Patrick Erickson D.O. [address] [place] [address] Phone: tel: fax: [facility] Region Referral ID Status Reason Start Date Expiration Date V isits Requested Visits Authorized [id number] Authorized 02/14/2024 08/15/2025 1 1 II BLOCKER * Outpatient (Routine) - Authorized Specialty Diagnoses / Procedures Referred By Prosper t Referred To Contact [facility] Internal Medicine Patrick Erickson D.O. [address] [place] [address] Phone: tel: fax: [facility] Region Referral ID Status Reason Start Date Expiration Date V isits Requested Visits Authorized [id number] Authorized 02/14/2024 08/15/2025 1 1 II BLOCKER Reason for Visit * Reason Comments Hypertension Chronic Kidney Disease Hyperlipidemia Atrial Fibrillation * Outpatient (Routine) - Closed Specialty Diagnoses / Procedures Referred By Prosper monsivais Referred To Contact [facility] Internal [facility] Patrick Erickson D.O. [address] [address] Phone: tel: fax: [facility] Region Referral ID Status Reason Start Date Expiration Date Visits Re quested Visits Authorized [id number] Closed 01/13/2024 07/14/2025 1 1 Encounter Details Date Type Department Care Team (Late st Contact Info) Description 02/14/2024 4:20 PM HAND II BLOCKER Office Visit Department of Internal Medicine in [place], [place] [address], [place] [address] Patrick Erickson D.O. 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 Or Unspecified Chronic Kidney Disease (HCC) (Primary Dx) Social History Tobacco Use Types Packs/Day Years Used Date Smoking Tobacco: Never Smokeless Tobacco: Never Tobacco Cessation:Counseling Given: Not Answered Alcohol Use Standard Drinks/Week Comments No 0 (1 standard drink = 0.6 oz pur e alcohol) [facility] Utilities Answer Date Recorded In the past 12 months has [facility] [employer], gas, oil, or water [employer] threatened to shut off services in your [...] 04/27/2023 [facility] of Occupat ional [facility] - Occupational Stress Questionnaire Answer [...] your living situation today? [facility] 07/01/2023 Education Answer Date Recorded What is the highest level of school you have completed or the highest degree you have received? Associate degree: occupational, technical, or vocational program 05/30/2022 Comments No Sex and Gender Information Value Date Recorded Sex Assigned at Female 12/19/2021 3:32 AM CDT Legal Sex Female 9:57 PM HAND II BLOCKER Gender Identity Female 09/24/2022 9:59 PM CDT Sexual Orientation Straight 12/19/2021 3: 32 AM CDT documented as of this encounter Last Filed Vital Signs Vital Sign Reading Time Taken Comments Blood Pressure 150/87 02/14/2024 3:57 PM HAND II BLOCKER Pulse 60 02/14/2024 3:57 PM HAND II BLOCKER Temperature 36.1 C (96.9 F) 02/14/2024 3:44 PM HAND II BLOCKER Respiratory Rate - - Oxygen Saturation - - Inhaled Oxygen Concentration - - Weight 85.5 kg (188 lb 7.9 oz) 02/14/2024 3:44 P M HAND II BLOCKER Height - - Body Mass Index 32.18 12/28/2023 12:40 PM CDT documented in this encounter Patient Instructions * Patient Instructions* Patrick Erickson D.O. - 02/14/2024 4:20 PM HAND II BLOCKER Stick with the amlodipine for another week and try to move taking it to later in the evening beforebed. Let us know in about 1 week how things are going and if the side effects that you have experienced seem to have resolved. If symptoms have not resolved we may need to consider alternative options to the amlodipine at that time. If symptoms are better then we will also need to consider increasing the amlodipine after about 1 more week. Please wait for further instructions and then plan to follow up in about 2 weeks with a blood pressure check with the nursing staff as we have done previously. Call if any new or worsening conditions in the interim. We will be in touch after the recheck on the blood pressure in about 2 weeks. Plan to follow-up in office with an appointment with Dr. Erickson in about 3 months with monitoring labs and an appointment prior to your vacation this spring. Call if any questions or concerns prior to that time. II BLOCKER documented in this encounter Progress Notes * Patrick Erickson D.O. - 02/14/2024 4:20 PM CST [facility]IC PROGRESS NOTE: DATE OF EXAM: 02/14/2024 LOCATION OF EXAM: [facility] CHIEF COMPLAINT/REASON FOR VISIT Chief Complaint Patient presents with Hypertension Chronic Kidney Disease Hyperlipidemia Atrial Fibrillation SUBJECTIVE HISTORY OF PRESENT ILLNESS Herminia Alberto is a 78 y.o. who presents today for follow-up of hypertension. She is last seen by this provider on December 27, and at that time was experiencing elevations in blood pressure inconsistent with her home readings. Subsequent evaluation of her home device found to be an accurate and given persistent elevations in blood pressure she was recommended to initiate amlodipine 2.5 mg oncedaily. She just started this medication about 1 week ago. Since starting it she does endorse some side effects including some mild lightheadedness and unsteadiness. She has been taking this medication about an hour before bed and notices these symptoms come on rate about bedtime after taking her pills. She is wondering if this could be a side effect from the medication. She is wondering if she had to stop it. She is not routinely monitoring her blood pressure at home at this time. OBJECTIVE PHYSICAL EXAM: Blood pressure 150/87, pulse 60, temperature 36.1 ??C, temperature source Temporal, weight 85.5 kg,not currently . GENERAL: Well-nourished, well-developed 78 y.o. in no apparent distress. Awake, alert, age appropriate. CARDIOVASCULAR: Regular rate and rhythm. PULMONARY: Clear to auscultation bilaterally IMPRESSION/REPORT/PLAN: 1. 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 Based on the description of symptoms and the significant blood pressure elevations I suspect that these symptoms will dissipate after she has further time to acclimate to the new medication and lower blood pressure. Subsequently I recommended that she continue with the amlodipine 2.5 mg daily for another week and continue to monitor symptoms. She will contact our office in 1 week to let us know how she is doing.If symptoms have improved then we could consider further upward titration of amlodipine up to 5 mg daily. If symptoms are not improved however then I would favor discontinuing the amlodipine and considering an alternative such as nifedipine. She will return in 2 weeks for a repeat blood pressure check irregardless of which has chosen. Further follow up based on blood pressure response. Definitivein office follow- up with monitoring labs in 3 months. - Basic Metabolic Panel; Future - CBC without Differential; Future I spent a total of 30 minutes on the day of the visit. Patrick Erickson D.O. II BLOCKER documented in this encounter Plan of Treatment Upcoming Encounters Date Type Department Care Team (Latest Contact Info) Description 03/10/2024 3:20 PM HAND II BLOCKER Appointment Department of Laboratory Medicine in [address] [phone] Patrick Erickson D.O. [address] [place] [phone] 03/10/2024 4:00 PM HAND II BLOCKER Anticoagulation Visit Department of Anticoagulation in [place], [place] [address] [place] [address] Patrick Erickson D.O. [address] [place] [address] 05/15/2024 2:30 PM CDT Appointment Department of Laboratory Medicine in [place], [place] [address] [place] [address] Patrick Erickson D.O. [address] [place] [address] 05/15/2024 3:30 PM CDT Office Visit Department of Internal Medicine in [place], [place] [address] [place] [address] Patrick Erickson D.O. 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 Kidney Disease Or Unspecified Chronic Kidney Disease (HCC) Expected: 05/14/2024 (Approximate), Expires: 05/14/2025 Scheduled Referrals Name Type Priority Associated Diagnoses Orde r Schedule Community Internal Medicine office visit (clinic) Outpatient Referral Routine Expected: 05/14/2024 (Approximate), Expires: 05/14/2025 Primary Care nurse visit (clinic) - [facility] Region; BP check; BP check only (UTILIZATION REVIEW RN) Outpatient Referral Routine Expected: 02/28/2024 (Approximate), Expires: 03/15/2024 documented as of this encounter Visit Diagnoses Diagnosis 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 [address] [place] [address] PCP - General Internal Medicine 08/12/22 documented as of this encounter
--- OUTSIDE RECORDS SUMMARY | 2024-03-09 08:35 | XMS_ITS | Encounter Summary ---
Author Organization [facility] Address [address] [place] [address] Care Team Providers Care Nipping Machine Operator Name Role Phone Patrick Erickson D.O. Primary Care Provider +1- [phone] Reason for Visit * Outpatient (Routine) - Authorized Specialty Diagnoses / Procedures Referred By Prosper t Referred To Contact Anticoagulation Patrick Erickson D.O. [address] [place] [address] Phone: tel: fax: [facility] Referral ID Status Reason Start Date Expiration Date V isits Requested Visits Authorized [id number] Authorized 01/06/2024 07/07/2025 300 300 Encounter Details Date Type Department Care Team (Latest Contact Info) Description 01/31/2024 11:30 AM IT DATA ARCHITECT Anticoagulation Visit Department of Anticoagulation in [place], [place] [address] [place] [address] Patrick Erickson D.O. 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 More than 4 times [...] Recorded PHQ-2 Score 0 04/27/2023 [facility] of Occupat ional Health - Occupational Stress [...] AM CDT Legal Sex Female 9:57 PM IT DATA ARCHITECT Gender Identity Female 09/24/2022 9:59 PM CDT Sexual Orientation Straight 12/19/2021 3: 32 AM CDT documented as of this encounter Patient Instructions * Patient Instructions* Alea Eaton R.N. - 01/31/2024 11:30 AM IT DATA ARCHITECT Your next INR will be 02/07/24. You will need to call the Anticoagulation Program at the time of your scheduled nurse visit or you can complete the Anticoagulation Pre-Visit Questionnaire and if no additional information is needed, your dosing can be provided via your Patient portal. To reschedule your appointment or for questions about your warfarin, please call Primary Care Anticoagulation Program at [phone] from 7:30 am to 4:30 pm. Wednesday-Wednesday [...] if you start any herbal or other ebfc-uyz-nrtuymd product (check with your doctor, a nurse, or pharmacist). If you change your diet significantly. If you decide to stop or start using tobacco or alcohol. If you notice unusual bruising or bleeding. If you notice dark, tarry, or bright red stools or blood in your urine. If you have a painful and swollen calf. DATA ARCHITECT documented in this encounter Plan of Treatment Upcoming Encounters Date Type Department Care Team (Latest Contact Info) Description 03/10/2024 3:20 PM IT DATA ARCHITECT Appointment Department of Laboratory Medicine in [place], [place] [address] [place] [address] Patrick Erickson D.O. [address] [place] [address] 03/10/2024 4:00 PM IT DATA ARCHITECT Anticoagulation Visit Department of Anticoagulation in [place], [place] [address] [place] [address] Patrick Erickson D.O. [address] [address] 05/15/2024 2:30 PM CDT Appointment Department of Laboratory Medicine in [place], [place] [address] [place] [phone] Patrick Erickson D.O. [address] [address] 05/15/2024 3:30 PM CDT Office Visit Department of Internal Medicine in [place], [place] [address] [place] [address] Patrick Erickson D.O. [address] [address] documented as of this encounter Results * INR Reflex, POCT, Blood (02/10/2024 7:54 AM IT DATA ARCHITECT) INR Reflex, POCT, B 1.7 02/10/2024 7:54 AM IT DATA ARCHITECT FB60 Comment: ----ADDITIONAL INFORMATION---- Standard intensity warfarin therapeutic range: 2.0 to 3.0 High intensity warfarin therapeutic range: 2.5 to 3.5 Blood (Blood, Capillary) 02/10/2024 7:54 AM IT DATA ARCHITECT 02/10/2024 7:54 AM IT DATA ARCHITECT us Patrick Erickson D.O. LAB POCT ORDERABLES - CARLOS ENRIQUE CE Final Result [facility] [address] [place] [address], [facility] FB60 [facility] in [place] [address] [place] [address] documented in this encounter Visit Diagnoses Diagnosis [...] Depression Total Score: 9 02/23/20 7:41 PM IT DATA ARCHITECT documented as of this encounter Care Teams Nipping Machine Operator Relationship Specialty Start Date End Date Patrick Erickson D.O. [address] [address] PCP - General Internal Medicine 08/12/22 documented as of this encounter
--- OUTSIDE RECORDS SUMMARY | 2024-03-09 08:35 | XMS_ITS | Encounter Summary ---
Author Organization [facility] Address [address] [place] [address] Care Team Providers Care Interlibrary Loan Specialist Name Role Phone Patrick Erickson D.O. Primary Care Provider +1- [phone] Reason for Visit * Reason Comments Med Refill Encounter Details Date Type Department Care Team (Late st Contact Info) Description 02/09/2024 Refill Department of Internal Medicine in [place], [place] [address] [phone] Patrick Erickson D.O. [address] [phone] Med Refill Social History Tobacco Use Types Packs/Day Years Used Date Smoking Tobacco: Never Smokeless Tobacco: Never Alcohol Use Standard Drinks/Week Comments No 0 (1 standard drink = 0.6 oz pur e alcohol) [facility] Utilities Answer Date Recorded In the past 12 months has [employer], gas, oil, or water [employer] threatened to shut off services in your [...] How often do you attend chur or sikh services? More than 4 times [...] Answer Date Recorded PHQ-2 Score 0 04/27/2023 [facility] of Occupat ional Health - [...] living situation today? I have a [facility] place to live 07/01/2023 Education Answer Date Recorded What is the highest level of school you have completed or the highest degree you have received? Associate degree: occupational, technical, or vocational program 05/30/2022 Comments No Sex and Gender Information Value Date Recorded Sex Assigned at Female 12/19/2021 3:32 AM CDT Legal Sex Female 9:57 PM HEALTH AND SAFETY DIRECTOR Gender Identity Female 09/24/2022 9:59 PM CDT Sexual Orientation Straight 12/19/2021 3: 32 AM CDT documented as of this encounter Plan of Treatment Upcoming Encounters Date Type Department Care Team (Latest Contact Info) Description 03/10/2024 3:20 PM HEALTH AND SAFETY DIRECTOR Appointment Department of Laboratory Medicine in [place] [address] [address] [facility] [place] [phone] Patrick Erickson D.O. [address] [place] [address] 03/10/2024 4:00 PM HEALTH AND SAFETY DIRECTOR Anticoagulation Visit Department of Anticoagulation in [place], [place] [address] [place] [address] Patrick Erickson D.O. [address] [phone] 05/15/2024 2:30 PM CDT Appointment Department of Laboratory Medicine in [place], [place] [address] [address] Patrick Erickson D.O. [address] [phone] 05/15/2024 3:30 PM CDT Office Visit Department of Internal Medicine in [place], [place] [address] [address] Patrick Erickson D.O. [address] [phone] documented as of this encounter Visit Diagnoses Not on filedocumented in this encounter Additional Health Concerns Assessment Noted Time PHQ-9 Depression Total Score: 9 02/23/20 23 7:41 PM HEALTH AND SAFETY DIRECTOR documented as of this encounter Care Teams Interlibrary Loan Specialist Relationship Specialty Start Date End Date Patrick Erickson D.O. [address] [address] PCP - General Internal Medicine 08/12/22 documented as of this encounter
== END 2024-08-02 10:46 | disposition home or self-care (01) ==
PROVIDERS: PCP Nurse Practitioner; Visit Provider Orthopaedic Surgery Sports Medicine
DX: S42.332A Displaced oblique fracture of shaft of humerus, left arm, initial encounter for closed fracture (principal); S80.01XA Contusion of right knee, initial encounter; Z02.6 Encounter for examination for insurance purposes; Z98.890 Other specified postprocedural states; Z51.89 Encounter for other specified aftercare
CPT/HCPCS: 97110; 97140; 97162; 97530; 97535

== ENCOUNTER 2024-06-06 15:19 | Outpatient (CLI) | payer MEDICARE, SELFPAY | END 2024-06-06 15:20 | disposition home or self-care (01) | LOC: AMB 06-07 10:53 | PROVIDERS: PCP Nurse Practitioner; Visit Provider Student in an Organized Health Care Education/Training Program | DX: S29.9XXA Unspecified injury of thorax, initial encounter (principal); W01.0XXA Fall on same level from slipping, tripping and stumbling without subsequent striking against object, initial encounter; Y93.9 Activity, unspecified; Y92.007 Garden or yard of unspecified non-institutional (private) residence as the place of occurrence of the external cause | CPT/HCPCS: A0425; A0427 ==

== ENCOUNTER 2024-06-06 15:44 | Inpatient (IN) | payer MEDICARE, OTHER, SELFPAY ==
--- NOTE | 2024-06-06 | CRLHL7_ITS ---
For Patients: As a result of the Century Cures Act, medical imaging exams and procedure reports are released immediately into your electronic medical record. You may view this report before your referring provider. If you have questions, please contact your health care provider. INDICATION: FALL. HEART FAILURE, COUGH. TECHNIQUE: Chest 1 view. COMPARISON: Chest radiographs dated 08/01/2022. FINDINGS: Unremarkable cardiomediastinal contours. Low lung volumes with mild diffuse interstitial prominence. Redemonstrated relatively nodular focus in the left lower lung measuring 0.9 cm, similar in size relative to prior. No evident new focal consolidation. No sign of pleural effusion. No pneumothorax. No acute osseous or soft tissue findings. IMPRESSION: 1. Low lung volumes with mild diffuse interstitial prominence, which may be artifactual, though could reflect mild pulmonary edema. 2. Redemonstrated left lower lung 0.9 cm nodular focus, which may reflect a calcific granuloma. While indeterminate by radiograph, the nearly 2-year stability is suggestive of benignity. Dictated by Braulio Alvarez MD @ 06/06/2024 4:45:31 PM (Electronically Signed)
--- OUTSIDE RECORDS SUMMARY | 2024-06-06 15:46 | XMS_ITS | Encounter Summary ---
Author Organization [facility] Address [address] [place] [address] Care Team Providers Care Finance Consultant Name Role Phone Patrick Erickson D.O. Primary Care Provider +1- [phone] Reason for Visit * Outpatient (Routine) - Authorized Specialty Diagnoses / Procedures Referred By Contkarri t Referred To Contact Anticoagulation Patrick Erickson D.O. [address] [place] [address] Phone: tel: fax: [facility] Region Referral ID Status Reason Start Date Expiration Date V isits Requested Visits Authorized [id number] Authorized 03/03/2024 09/02/2025 300 300 Encounter Details Date Type Department Care Team (Latest Contact Info) Description 05/24/2024 10:30 AM CDT Anticoagulation Visit Department of Anticoagulation in [place], [place] [address] [place] [address] Patrick Erickson D.O. 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 Kidney Disease Or Unspecified Chronic Kidney Disease (HCC) (Primary Dx); Hyperlipidemia On Treatment; Atrial Fibrillation Paroxysmal (HCC); Monitoring For Therapeutic Drug Therapy; Gericare Aide (Current) Anticoagulant Treatment Social History Tobacco Use Types Packs/Day Years Used Date Smoking Tobacco: Never Passive Smoke Exposure: Never Smokeless Tobacco: Never Alcohol Use Standard Drinks/Week Comments No 0 (1 standard drink = 0.6 oz pur e alcohol) [facility] Utilities Answer Date Recorded In the [...] 05/30/2022 PHQ-2 Answer Date Recorded PHQ-2 Score 4 05/15/2024 [facility] of Occupat ional [facility] - Occupational Stress Questionnaire Answer Date [...] Recor ded PHQ-9 Total Score (max 27) 7 05/15 Nutrition Answer Date Recorded On average, how [...] today? I have a [facility] place to live 07/01/2023 Education Answer Date Recorded What is the highest level of school you have completed or the highest degree you have received? Associate degree: occupational, technical, or vocational program 05/30/2022 Comments No Sex and Gender Information Value Date Recorded Sex Assigned at Female 12/19/2021 3:32 AM CDT Legal Sex Female 9:57 PM DIGITAL PRE PRESS OPERATOR Gender Identity Female 09/24/2022 9:59 PM CDT Sexual Orientation Straight 12/19/2021 3: 32 AM CDT documented as of this encounter Patient Instructions * Patient Instructions* Thalia Zepeda R.N. - 05/24/2024 10:30 AM CDT Your next INR will be May. You will need to call the Anticoagulation Program atthe time of your scheduled nurse visit or you can complete the Anticoagulation Pre-Visit Questionnaire and if no additional information is needed, your dosing can be provided via your Patient portal. To reschedule your appointment or for questions about your warfarin, please call Primary Care Anticoagulation Program at [phone] from 7:30 am to 4:30 pm. Wednesday-Wednesday [...] if you start any herbal or other dxqo-cnv-tygsyhi product (check with your doctor, a nurse, [...] Department Care Team (Latest Contact Info) Description 06/09/2024 11:20 AM CDT Appointment Department of Laboratory Medicine in [place], [place] [address] [place] [address] Patrick Erickson D.O. [address], [place] [address] 06/09/2024 12:00 PM CDT Anticoagulation Visit Department of Anticoagulation in [place], [place] [address] [place] [address] Patrick Erickson D.O. 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 [address], [place] [address] PCP - General Internal Medicine 08/12/22 documented as of this encounter
--- OUTSIDE RECORDS SUMMARY | 2024-06-06 15:46 | XMS_ITS | Encounter Summary ---
Author Organization [facility] Address [address] [place] [address] Care Team Providers Care Aerodynamics Engineer Name Role Phone Patrick Erickson D.O. Primary Care Provider +1- [phone] Reason for Visit * Outpatient (Routine) - Authorized Specialty Diagnoses / Procedures Referred By Contkarri t Referred To Contact Anticoagulation Patrick Erickson D.O. [address] [place] [address] Phone: tel: fax: [facility] Region Referral ID Status Reason Start Date Expiration Date V isits Requested Visits Authorized [id number] Authorized 03/03/2024 09/02/2025 300 300 Encounter Details Date Type Department Care Team (Latest Contact Info) Description 05/23/2024 4:00 PM CDT Anticoagulation Visit Department of Anticoagulation in [place], [place] [address] [place] [address] Patrick Erickson D.O. 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 I have a [facility] place to live 07/01/2023 Education Answer Date Recorded What is the highest level of school you have completed or the highest degree you have received? Associate degree: occupational, technical, or vocational program 05/30/2022 Comments No Sex and Gender Information Value Date Recorded Sex Assigned at Female 12/19/2021 3:32 AM CDT Legal Sex Female 9:57 PM HAY BALER Gender Identity Female 09/24/2022 9:59 PM CDT Sexual Orientation Straight 12/19/2021 3: 32 AM CDT documented as of this encounter Patient Instructions * Patient Instructions* Soham Chino R.N. - 05/23/2024 4:00 PM CDT Your next INR will be 05/25/24. You will need to call the Anticoagulation Program at the time of your scheduled nurse visit or you can complete the Anticoagulation Pre-Visit Questionnaire and if no additional information is needed, your dosing can be provided via your Patient portal. To reschedule your appointment or for questions about your warfarin, please call Primary Care Anticoagulation Program at [phone] from 7:30 am to 4:30 pm. Wednesday-Wednesday [...] if you start any herbal or other njtv-bip-bnfmibn product (check with your doctor, a nurse, [...] CDT Appointment Department of Laboratory Medicine in [place], [place] [address] [place] [address] Patrick Erickson D.O. [address] [place] [address] 06/09/2024 12:00 PM CDT Anticoagulation Visit Department of Anticoagulation in [place], [place] [address] [place] [address] Patrick Erickson D.O. [address] [place] [address] documented as of this encounter Results * INR Reflex, POCT, Blood (05/25/2024 11:42 AM CDT) [facility] INR Reflex, POCT, B 4.2 05/25/2024 11:41 AM CDT [id number] Comment: ----ADDITIONAL INFORMATION---- Standard intensity warfarin therapeutic range: 2.0 to 3.0 High intensity warfarin therapeutic range: 2.5 to 3.5 Blood (Blood, Capillary) 05/25/2024 11:42 AM CDT 05/25/2024 11:41 AM CDT us Patrick Erickson D.O. LAB POCT ORDERABLES - CARLOS ENRIQUE CE Final Result [facility] [address] [place] [address], [place] FB60 [facility] in [address] [address] documented in this encounter Visit Diagnoses Diagnosis [...] documented as of this encounter Care Teams Aerodynamics Engineer Relationship Specialty Start Date End Date Patrick Erickson D.O. [address] [place] [phone] PCP - General Internal Medicine 08/12/22 documented as of this encounter
--- OUTSIDE RECORDS SUMMARY | 2024-06-06 15:46 | XMS_ITS | Encounter Summary ---
Author Organization [facility] Address [address] [place] [address] Care Team Providers Care Hat Binder Name Role Phone Patrick Erickosn D.O. Primary Care Provider +1- [phone] Encounter Details Date Type Department Care Team (Latest Contact Info) Description 05/23/2024 3:20 PM CDT - 05/23/2024 11:59 PM CDT Hospital Encounter Department of Laboratory Medicine in [place], [place] [address] [place] [phone] Patrick Erickson D.O. [address] [place] [address] Hypertensive Heart And Chronic Kidney [...] 0.6 oz pur e alcohol) [facility] Utilities Answer Date Recorded In the past 12 months has th e electric, gas, oil, or water [employer] threatened to shut off services in [...] How often do you attend chur or evangelical services? More than 4 times per year 05/30/2022 Do you belong to any clubs o r organizations such as mandaen groups, unions, fraternal or athletic groups, or [...] Answer Date Recorded PHQ-2 Score 4 05/15/2024 [facility] [place] of Occupat ional Health - Occupational Stress [...] your living situation today? I have a [facility] place to live 07/01/2023 Education Answer Date Recorded What is the highest level of school you have completed or the highest degree you have received? Associate degree: occupational, technical, or vocational program 05/30/2022 Comments No Sex and Gender Information Value Date Recorded Sex Assigned at Female 12/19/2021 3:32 AM CDT Legal Sex Female 9:57 PM [employer] Gender Identity Female 09/24/2022 9:59 PM CDT Sexual Orientation Straight 12/19/2021 3: 32 AM CDT documented as of this encounter Medications at Time of Discharge atorvastatin (Lipitor) 10 mg tablet Take 1 tablet (10 mg total) by mouth daily. 90 tablet 3 05/15/2024 carvediloL (Coreg) 6.25 mg tablet Take 1 tablet (6.25 mg total) by mouth 2 (two) times a day. 180 tablet 3 05/15/2024 CHOLECALCIFEROL , VITAMIN D3, ORAL Take 1 capsule by mouth daily. 08/14/2015 cranberry conc/C/Bacill coag (CRANBERRY URINARY TRACT HEALTH ORAL) Take 1 tablet by mouth daily. CYANOCOBALAMIN, VITAMIN B-12, ORAL 1,000 mcg daily. 08/14/2015 cyclobenzaprine (FLEXERIL) 5 mg tablet Take 1 tablet (5 mg total) by mouth at bedtime as needed for muscle spasms. 30 tablet 06/26/2021 furosemide (Lasix) 20 mg tablet Take 1 tablet (20 mg total) by mouth daily. May take an extra dose as needed for weight gain/edema 100 tablet 3 05/15/2024 lisinopriL 40 mg tablet Take 1 tablet (40 mg total) by mouth daily. 90 tablet 3 05/15/2024 NIFEdipine (Adalat CC) 30 mg ER tablet Take 1 tablet (30 mg total) by mouth daily. 90 tablet 3 05/15/2024 yhjixvh-mihx-nt hfy-qjni-yjuvtq 100 mg-150 mg- 50 mg-150 mg capsule Take by mouth 2 (two) times a day as needed. UNABLE TO FIND Med Name: frankincense oil PRN for shoulder pain 03/08/2024 UNABLE TO FIND Take 1 each by mouth daily. Med Name: Instaflex Multivitamin 03/08/2024 warfarin (Jantoven) 5 mg tablet Take 1.5 tablets (7.5 mg total) by mouth daily. Please take as directed by your Anticoagulation Clinic. 140 tablet 3 05/09/2024 documented as of this encounter Plan of Treatment Upcoming Encounters Date Type Department Care Team (Latest Contact Info) Description 06/09/2024 11:20 AM CDT Appointment Department of Laboratory Medicine in [address] [place] [phone] Patrick Erickson D.O. [address], [place] [address] 06/09/2024 12:00 PM CDT Anticoagulation Visit Department of Anticoagulation in [place], [place] [address] [place] [address] Patrick Erickson D.O. 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 Chronic Kidney Disease Or Unspecified Chronic Kidney Disease (HCC) Hyperlipidemia On Treatment Atrial Fibrillation Paroxysmal (HCC) Monitoring For Therapeutic Drug Therapy [facility] (Current) Anticoagulant Treatment documented in this encounter Results * (ABNORMAL) Prothrombin Time (PT) (05/23/2024 3:45 PM CDT) Prothrombin Time, P 92.0(H) 9.4 - 12.5 sec 05/23/2024 7:26 PM CDT OWAT INR 7.7(CH) 0.9 - 1.1 05/23/2024 7:26 PM CDT OWAT Comment: ----ADDITIONAL INFORMATION---- Standard intensity warfarin therapeutic range: 2.0 to 3.0 High intensity warfarin therapeutic range: 2.5 to 3.5 Blood 05/23/2024 3:45 PM CDT 05/23/2024 5:33 PM CDT us Patrick Erickson D.O. LAB BLOOD ADD-ON Final Res ult [facility] [address] [place] [address], [place] OWAT [facility] in [place] [address] [place] [address] * (ABNORMAL) INR Reflex, POCT, Blood (05/23/2024 3:42 PM CDT) INR Reflex, POCT, B >8.0(CH) 05/23/2024 3:41 PM CDT [id number] Comment: ----ADDITIONAL INFORMATION---- Standard intensity warfarin therapeutic range: 2.0 to 3.0 High intensity warfarin therapeutic range: 2.5 to 3.5 Blood (Blood, Capillary) 05/23/2024 3:42 PM CDT 05/23/2024 3:41 PM CDT us Patrick Erickson D.O. LAB POCT ORDERABLES - CARLOS ENRIQUE CE Final Result [facility] [address] [address], [facility] FB60 [facility] [place] [address] documented in this encounter Visit Diagnoses Diagnosis [...] documented as of this encounter Care Teams Hat Binder Relationship Specialty Start Date End Date Patrick Erickson D.O. [address], [place] [address] PCP - General Internal Medicine 08/12/22 documented as of this encounter
--- OUTSIDE RECORDS SUMMARY | 2024-06-06 15:47 | XMS_ITS | Encounter Summary ---
Author Organization [facility] Address [address] [place] [address] Care Team Providers Care Glass Furnace Operator Name Role Phone Patrick Erickson D.O. Primary Care Provider +1- [phone] Encounter Details Date Type Department Care Team (Latest Contact Info) Description 05/09/2024 12:26 PM BUSINESS DEVELOPMENT EXECUTIVE - 05/09/2024 11:59 PM [facility] Hospital Encounter Department of Laboratory Medicine in [place] [address] [place] [phone] Patrick Erickson D.O. 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 Utilities Answer Date Recorded In the past 12 months has e electric, gas, oil, or water [employer] threatened to shut off services in your [...] any clubs o r organizations such as holiness groups, unions, fraternal or athletic groups, or [...] Date Recorded PHQ-2 Score 0 04/27/2023 [facility] of Occupat ional Health - Occupational Stress [...] living situation today? I have a [facility] place to live 07/01/2023 Education Answer Date Recorded What is the highest level of school you have completed or the highest degree you have received? Associate degree: occupational, technical, or vocational program 05/30/2022 Comments No Sex and Gender Information Value Date Recorded Sex Assigned at Female 12/19/2021 3:32 AM CDT Legal Sex Female 9:57 PM BUSINESS DEVELOPMENT EXECUTIVE Gender Identity Female 09/24/2022 9:59 PM CDT Sexual Orientation Straight 12/19/2021 3: 32 AM CDT documented as of this encounter Medications at Time of Discharge CHOLECALCIFEROL , VITAMIN D3, ORAL Take 1 capsule by mouth daily. 08/14/2015 cranberry conc/C/Bacill coag (CRANBERRY URINARY TRACT HEALTH ORAL) Take 1 tablet by mouth daily. CYANOCOBALAMIN, VITAMIN B-12, ORAL 1,000 mcg daily. 08/14/2015 cyclobenzaprine (FLEXERIL) 5 mg tablet Take 1 tablet (5 mg total) by mouth at bedtime as needed for muscle spasms. 30 tablet 06/26/2021 vhfprbk-anjh-yw gfg-chdk-ryrsgn 100 mg-150 mg- 50 mg-150 mg capsule [...] your Anticoagulation Clinic. 140 tablet 3 05/09/2024 atorvastatin (Lipitor) 10 mg tablet TAKE 1 TABLET EVERY DAY 90 tablet 3 02/09/2024 05/16/19 25 carvediloL (COREG) 6.25 mg tablet take 1 tablet twice daily 180 tablet 3 06/24/2023 05/16/19 25 furosemide (Lasix) 20 mg tablet TAKE 1 TABLET (20 MG TOTAL) BY MOUTH DAILY. MAY TAKE AN EXTRA DOSE NEEDED FOR WEIGHT GAIN/EDEMA 100 tablet 3 02/17/2024 05/16/19 25 lisinopriL 40 mg tablet TAKE 1 TABLET EVERY DAY 90 tablet 3 02/09/2024 05/16/19 25 NIFEdipine (Adalat CC) 30 mg ER tablet Take 1 tablet (30 mg total) by mouth daily. 90 tablet 5 02/24/2024 05/16/19 25 documented as of this encounter Plan of Treatment Upcoming Encounters Date Type Department Care Team (Latest Contact Info) Description 06/09/2024 11:20 AM CDT Appointment Department of Laboratory Medicine in [address] [place] [phone] Patrick Erickson D.O. [address] [facility] [phone] 06/09/2024 12:00 PM CDT Anticoagulation Visit Department of Anticoagulation in [place], [place] [address] [place] [address] Patrick Erickson D.O. 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 Chronic Kidney Disease Or Unspecified Chronic Kidney Disease (HCC) Hyperlipidemia On Treatment Atrial Fibrillation Paroxysmal (HCC) Monitoring For Therapeutic Drug Therapy Concrete Block Layer (Current) Anticoagulant Treatment documented in this encounter Results * INR Reflex, POCT, Blood (05/09/2024 12:40 PM BUSINESS DEVELOPMENT EXECUTIVE) INR Reflex, POCT, B 1.6 05/09/2024 12:39 PM BUSINESS DEVELOPMENT EXECUTIVE [id number] Comment: ----ADDITIONAL INFORMATION---- Standard intensity warfarin therapeutic range: 2.0 to 3.0 High intensity warfarin therapeutic range: 2.5 to 3.5 Blood (Blood, Capillary) 05/09/2024 12:40 PM BUSINESS DEVELOPMENT EXECUTIVE 05/09/2024 12:39 PM BUSINESS DEVELOPMENT EXECUTIVE us Patrick Erickson D.O. LAB POCT ORDERABLES - CARLOS ENRIQUE CE Final Result [facility] [address] [place] [address], [facility] FB60 in [place] [address] [place] [address] documented in this encounter Visit Diagnoses Diagnosis [...] Total Score: 9 02/23/20 23 7:41 PM BUSINESS DEVELOPMENT EXECUTIVE documented as of this encounter Care Teams Glass Furnace Operator Relationship Specialty Start Date End Date Patrick Erickson D.O. [address] [place] [phone] PCP - General Internal Medicine 08/12/22 documented as of this encounter
--- OUTSIDE RECORDS SUMMARY | 2024-06-06 15:47 | XMS_ITS | Encounter Summary ---
Author Organization [facility] Address [address] [place] [address] Care Team Providers Care Platform Software Engineer Name Role Phone Patrick Erickson D.O. Primary Care Provider +1- [phone] Reason for Visit * Outpatient (Routine) - Authorized Specialty Diagnoses / Procedures Referred By Contkarri t Referred To Contact Anticoagulation Patrick Erickson D.O. [address] [place] [address] Phone: tel: fax: [facility] Region Referral ID Status Reason Start Date Expiration Date V isits Requested Visits Authorized [id number] Authorized 03/03/2024 09/02/2025 300 300 Encounter Details Date Type Department Care Team (Latest Contact Info) Description 05/25/2024 12:00 PM CDT Anticoagulation Visit Department of Anticoagulation in [address] [place] [address] Patrick Erickson D.O. 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 - 05/25/2024 12:00 PM CDT Your next INR will be Thursday June 06, 2024. You will need to call the Anticoagulation Program at the time of your scheduled nurse visit or you can complete the Anticoagulation Pre-Visit Questionnaire and if no additional information is needed, your dosing can be provided via your Patient portal. To reschedule your appointment or for questions about your warfarin, please call Primary Care Anticoagulation Program at [phone] from 7:30 am to 4:30 pm. Wednesday-Wednesday [...] if you start any herbal or other jzug-cgb-urlulpc product (check with your doctor, a nurse, [...] CDT Appointment Department of Laboratory Medicine in [place], [place] [address] [place] [address] Patrick Erickson D.O. [address], [place] [address] 06/09/2024 12:00 PM CDT Anticoagulation Visit Department of Anticoagulation in [address] [place] [address] Patrick Erickson D.O. [address] [place] [address] documented as of this encounter Results * (ABNORMAL) INR Reflex, POCT, Blood (06/06/2024 10:58 AM CDT) [facility] Signature INR Reflex, POCT, B 7.6() 06/06/2024 10:57 AM CDT [id number] Comment: ----ADDITIONAL INFORMATION---- Standard intensity warfarin therapeutic range: 2.0 to 3.0 High intensity warfarin therapeutic range: 2.5 to 3.5 Blood (Blood, Capillary) 06/06/2024 10:58 AM CDT 06/06/2024 10:57 AM CDT us Patrick Erickson D.O. LAB POCT ORDERABLES - CARLOS ENRIQUE CE Final Result [facility] [address] [place] [address], [place] FB60 [facility] in [place] [address] [place] [address] documented in this encounter Visit Diagnoses Diagnosis [...] documented as of this encounter Care Teams Platform Software Engineer Relationship Specialty Start Date End Date Patrick Erickson D.O. [address] [phone] PCP - General Internal Medicine 08/12/22 documented as of this encounter
--- OUTSIDE RECORDS SUMMARY | 2024-06-06 15:47 | XMS_ITS | Encounter Summary ---
Author Organization [facility] Address [address] [place] [address] Care Team Providers Care Bd Special Education Teacher Name Role Phone Patrick Erickson D.O. Primary Care Provider +1- [phone] Reason for Visit * Outpatient (Routine) - Authorized Specialty Diagnoses / Procedures Referred By Contkarri t Referred To Contact Anticoagulation Patrick Erickson D.O. [address] [place] [address] Phone: tel: fax: [facility] Region Referral ID Status Reason Start Date Expiration Date V isits Requested Visits Authorized [id number] Authorized 03/03/2024 09/02/2025 300 300 Encounter Details Date Type Department Care Team (Latest Contact Info) Description 05/16/2024 2:00 PM CDT Anticoagulation Visit Department of Anticoagulation in [place], [place] [address] [place] [address] Patrick Erickson D.O. 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 More than 4 times per year [...] Answer Date Recorded PHQ-2 Score 4 05/15/2024 [facility] of Occupat ional [facility] - Occupational Stress Questionnaire [...] AM CDT Legal Sex Female 9:57 PM MILLINERY WORKER Gender Identity Female 09/24/2022 9:59 PM CDT Sexual Orientation Straight 12/19/2021 3: 32 AM CDT documented as of this encounter Patient Instructions * Patient Instructions* Cindy Castillo R.N. - 05/16/2024 2:00 PM CDT Your next INR will be 05/22/24. You will need to call the Anticoagulation Program at the time of your scheduled nurse visit or you can complete the Anticoagulation Pre-Visit Questionnaire and if no additional information is needed, your dosing can be provided via your Patient portal. To reschedule your appointment or for questions about your warfarin, please call Primary Care Anticoagulation Program at [phone] from 7:30 am to 4:30 pm. Wednesday-Wednesday [...] if you start any herbal or other atcm-gyc-dlftlcc product (check with your doctor, a nurse, [...] CDT Appointment Department of Laboratory Medicine in [place], [place] [address] [place] [address] Patrick Erickson D.O. [address] [place] [address] 06/09/2024 12:00 PM CDT Anticoagulation Visit Department of Anticoagulation in [place], [place] [address] [place] [address] Patrick Erickson D.O. [address] [place] [address] documented as of this encounter Results * (ABNORMAL) INR Reflex, POCT, Blood (05/23/2024 3:42 PM CDT) [facility] Signature INR Reflex, POCT, B >8.0(CH) 05/23/2024 3:41 PM CDT [id number] Comment: ----ADDITIONAL INFORMATION---- Standard intensity warfarin therapeutic range: 2.0 to 3.0 High intensity warfarin therapeutic range: 2.5 to 3.5 Blood (Blood, Capillary) 05/23/2024 3:42 PM CDT 05/23/2024 3:41 PM CDT us Patrick Erickson D.O. LAB POCT ORDERABLES - CARLOS ENRIQUE CE Final Result [facility] [address] [place] [address], [place] FB60 [facility] in [place] [address] [place] [address] documented in this encounter Visit Diagnoses Diagnosis [...] documented as of this encounter Care Teams Bd Special Education Teacher Relationship Specialty Start Date End Date Patrick Erickson D.O. [address] [phone] PCP - General Internal Medicine 08/12/22 documented as of this encounter
--- OUTSIDE RECORDS SUMMARY | 2024-06-06 15:47 | XMS_ITS | Encounter Summary ---
Author Organization [facility] Address [address] [place] [address] Care Team Providers Care Stock Worker Name Role Phone Patrick Erickson D.O. Primary Care Provider +1- [phone] Encounter Details Date Type Department Care Team (Late st Contact Info) Description 05/10/2024 Clinical Communication Department of Internal Medicine in [place], [place] [address], [place] [phone] Patrick Erickson D.O. [address] [place] [address] Social History Tobacco Use Types Packs/Day Years Used Date Smoking Tobacco: Never Smokeless Tobacco: Never Alcohol Use Standard Drinks/Week Comments No 0 (1 standard drink = 0.6 oz pur e alcohol) [facility] Utilities Answer Date Recorded In the past 12 months has [employer] gas, oil, or water [employer] threatened to shut off services in your [...] any clubs o r organizations such as zoroastrian groups, unions, fraternal or athletic groups, or [...] AM CDT Legal Sex Female 9:57 PM QC TECH Gender Identity Female 09/24/2022 9:59 PM CDT Sexual Orientation Straight 12/19/2021 3: 32 AM CDT documented as of this encounter Plan of Treatment Upcoming Encounters Date Type Department Care Team (Latest Contact Info) Description 06/09/2024 11:20 AM CDT Appointment Department of Laboratory Medicine in [place] [address] [facility] [address] Patrick Erickson D.O. [address], [place] [address] 06/09/2024 12:00 PM CDT Anticoagulation Visit Department of Anticoagulation in [place], [place] [address] [place] [address] Patrick Erickson D.O. [address] [place] [address] documented as of this encounter Visit Diagnoses Not on filedocumented in this encounter Additional Health Concerns Assessment Noted Time PHQ-9 Depression Total Score: 9 02/23/20 23 7:41 PM QC TECH documented as of this encounter Care Teams Stock Worker Relationship Specialty Start Date End Date Patrick Erickson D.O. [address], [place] [address] PCP - General Internal Medicine 08/12/22 documented as of this encounter
--- OUTSIDE RECORDS SUMMARY | 2024-06-06 15:47 | XMS_ITS | Encounter Summary ---
Author Organization [facility] Address [address] [place] [address] Care Team Providers Care Cpa Tax Name Role Phone Patrick Erickson D.O. Primary Care Provider [phone]- [phone] Encounter Details Date Type Department Care Team (Latest Contact Info) Description 06/06/2024 10:48 AM CDT Hospital Encounter Department of Laboratory Medicine in [place], [place] [address] [place] [phone] Patrick Erickson D.O. 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 [address] [place] [address] 06/09/2024 12:00 PM CDT Anticoagulation Visit Department of Anticoagulation in [place], [place] [address] [place] [address] Patrick Erickson D.O. 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 Kidney Disease Or Unspecified Chronic Kidney Disease (HCC) Hyperlipidemia On Treatment Atrial Fibrillation Paroxysmal (HCC) Monitoring For Therapeutic Drug Therapy Correction (Current) Anticoagulant Treatment documented in this encounter Results * (ABNORMAL) Prothrombin Time (PT) (06/06/2024 11:01 AM CDT) Prothrombin Time, P 76.6(H) 9.4 - 12.5 sec 06/06/2024 2:13 PM CDT OWAT INR 6.4(CH) 0.9 - 1.1 06/06/2024 2:13 PM CDT OWAT Comment: ----ADDITIONAL INFORMATION---- Standard intensity warfarin therapeutic range: 2.0 to 3.0 High intensity warfarin therapeutic range: 2.5 to 3.5 Blood 06/06/2024 11:0 1 AM CDT 06/06/2024 1:10 PM CDT us Patrick Erickson D.O. LAB BLOOD ADD-ON Final Res ult [facility] [address] [place] [address], [place] OWAT [facility] in [place] [address] [place] [address] * (ABNORMAL) INR Reflex, POCT, Blood (06/06/2024 10:58 AM CDT) INR Reflex, POCT, B 7.6(CH) 06/06/2024 10:57 AM CDT [id number] Comment: ----ADDITIONAL INFORMATION---- Standard intensity warfarin therapeutic range: 2.0 to 3.0 High intensity warfarin therapeutic range: 2.5 to 3.5 Blood (Blood, Capillary) 06/06/2024 10:58 AM CDT 06/06/2024 10:57 AM CDT us Patrick Erickson D.O. 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 [address] [place] [address] PCP - General Internal Medicine 08/12/22 documented as of this encounter
--- OUTSIDE RECORDS SUMMARY | 2024-06-06 15:47 | XMS_ITS | Encounter Summary ---
Author Organization [facility] Address [address] [place] [address] Care Team Providers Care Kitchen Runner Name Role Phone Patrick Erickson D.O. Primary Care Provider +1- [phone] Reason for Visit * Outpatient (Routine) - Authorized Specialty Diagnoses / Procedures Referred By Contkarri t Referred To Contact Anticoagulation Patrick Erickson D.O. [address] [place] [address] Phone: tel: fax: [facility] Region Referral ID Status Reason Start Date Expiration Date V isits Requested Visits Authorized [id number] Authorized 03/03/2024 09/02/2025 300 300 Encounter Details Date Type Department Care Team (Latest Contact Info) Description 04/28/2024 3:00 PM BONSAI TENDER Anticoagulation Visit Department of Anticoagulation in [place], [place] [address] [place] [address] Patrick Erickson D.O. 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) Anticoagulant Treatment Social History Tobacco Use Types Packs/Day Years Used Date Smoking Tobacco: Never Smokeless Tobacco: Never Alcohol Use Standard Drinks/Week Comments No 0 (1 standard drink = 0.6 oz pur e alcohol) [facility] Utilities Answer Date Recorded In [...] Answer Date Recorded PHQ-2 Score 0 04/27/2023 [facility] [place] of Occupat ional Health - Occupational Stress [...] AM CDT Legal Sex Female 9:57 PM BONSAI TENDER Gender Identity Female 09/24/2022 9:59 PM CDT Sexual Orientation Straight 12/19/2021 3: 32 AM CDT documented as of this encounter Patient Instructions * Patient Instructions* Thalia Zepeda R.N. - 04/28/2024 3:00 PM BONSAI TENDER Your next INR will be Sunday May 05, 2024. You will need to call the Anticoagulation Program at the time of your scheduled nurse visit or you can complete the Anticoagulation Pre-Visit Questionnaire and if no additional information is needed, your dosing can be provided via your Patient portal. To reschedule your appointment or for questions about your warfarin, please call Primary Care Anticoagulation Program at [phone] from 7:30 am to 4:30 pm. Wednesday-Wednesday [...] if you start any herbal or other [id number] product (check with your doctor, a nurse, or pharmacist). If you change your diet significantly. If you decide to stop or start using tobacco or alcohol. If you notice unusual bruising or bleeding. If you notice dark, tarry, or bright red stools or blood in your urine. If you have a painful and swollen calf. AI TENDER documented in this encounter Plan of Treatment Upcoming Encounters Date Type Department Care Team (Latest Contact Info) Description 06/09/2024 11:20 AM CDT Appointment Department of Laboratory Medicine in [place], [place] [address] [place] [address] Patrick Erickson D.O. [address] [place] [address] 06/09/2024 12:00 PM CDT Anticoagulation Visit Department of Anticoagulation in [place], [place] [address] [place] [address] Patrick Erickson D.O. [address] [place] [address] documented as of this encounter Results * INR Reflex, POCT, Blood (05/09/2024 12:40 PM BONSAI TENDER) [facility] INR Reflex, POCT, B 1.6 05/09/2024 12:39 PM BONSAI TENDER [id number] Comment: ----ADDITIONAL INFORMATION---- Standard intensity warfarin therapeutic range: 2.0 to 3.0 High intensity warfarin therapeutic range: 2.5 to 3.5 Blood (Blood, Capillary) 05/09/2024 12:40 PM BONSAI TENDER 05/09/2024 12:39 PM BONSAI TENDER us Patrick Erickson D.O. LAB POCT ORDERABLES - CARLOS ENRIQUE CE Final Result [facility] [address] [place] [address], [facility] FB60 [facility] in [address] [address] documented in this encounter Visit Diagnoses Diagnosis [...] Depression Total Score: 9 02/23/20 7:41 PM BONSAI TENDER documented as of this encounter Care Teams Kitchen Runner Relationship Specialty Start Date End Date Patrick Erickson D.O. [address] [place] [address] PCP - General Internal Medicine 08/12/22 documented as of this encounter
--- OUTSIDE RECORDS SUMMARY | 2024-06-06 15:47 | XMS_ITS | Encounter Summary ---
Author Organization [facility] Address [address] [place] [address] Care Team Providers Care Blacksmith Helper Name Role Phone Patrick Erickson D.O. Primary Care Provider +1- [phone] Reason for Visit * Outpatient (Routine) - Authorized Specialty Diagnoses / Procedures Referred By Contkarri t Referred To Contact Anticoagulation Patrick Erickson D.O. 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 I have a [facility] place to live 07/01/2023 Education Answer Date Recorded What is the highest level of school you have completed or the highest degree you have received? 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 - 05/09/2024 1:30 PM CLAM SHUCKING MACHINE TENDER Your next INR will be 05/15/24. You will need to call the Anticoagulation Program at the time of your scheduled nurse visit or you can complete the Anticoagulation Pre-Visit Questionnaire and if no additional information is needed, your dosing can be provided via your Patient portal. To reschedule your appointment or for questions about your warfarin, please call Primary Care Anticoagulation Program at [phone] from 7:30 am to 4:30 pm. Wednesday-Wednesday [...] if you start any herbal or other dyyt-lkk-abrytup product (check with your doctor, a nurse, or pharmacist). If you change your diet significantly. If you decide to stop or start using tobacco or alcohol. If you notice unusual bruising or bleeding. If you notice dark, tarry, or bright red stools or blood in your urine. If you have a painful and swollen calf. SHUCKING MACHINE TENDER documented in this encounter Plan of Treatment Upcoming Encounters Date Type Department Care Team (Latest Contact Info) Description 06/09/2024 11:20 AM CDT Appointment Department of Laboratory Medicine in [place], [place] [address] [place] [address] Patrick Erickson D.O. [address] [place] [phone] 06/09/2024 12:00 PM CDT Anticoagulation Visit Department of Anticoagulation in [place], [place] [address] [place] [address] Patrick Erickson D.O. 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 [address], [place] [phone] PCP - General Internal Medicine 08/12/22 documented as of this encounter
--- OUTSIDE RECORDS SUMMARY | 2024-06-06 15:47 | XMS_ITS | Encounter Summary ---
Author Organization [facility] Address [address] [place] [address] Care Team Providers Care Fiber Optic Assembly Worker Name Role Phone Patrick Erickson D.O. Primary Care Provider +1- [phone] Reason for Referral * Outpatient (Routine) - Authorized Specialty Diagnoses / Procedures Referred By Prosper monsivais Referred To Contact [facility] Internal Medicine Patrick Erickson D.O. [address] [place] [address] Phone: tel: fax: [facility] Region Referral ID Status Reason Start Date Expiration Date V isits Requested Visits Authorized [id number] Authorized 05/15/2024 11/14/2025 1 1 Reason for Visit * Reason Comments Hyperlipidemia Labs completed prior to appt Hypertension Labs completed prior to appt * Outpatient (Routine) - Closed Specialty Diagnoses / Procedures Referred By Prosper monsivais Referred To Contact [facility] Internal Medicine Patrick Erickson D.O. [address] [place] [address] Phone: tel: fax: [facility] Region Referral ID Status Reason Start Date Expiration Date Visits Re quested Visits Authorized [id number] Closed 02/14/2024 08/15/2025 1 1 Encounter Details Date Type Department Care Team (Latest Contact Info) Description 05/15/2024 3:30 PM CDT Office Visit Department of Internal Medicine in [place], [place] [address] [place] [address] Patrick Erickson D.O. 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 Chronic Kidney Disease Or Unspecified Chronic Kidney Disease (HCC); Atrial Fibrillation Paroxysmal (HCC); Prison (Current) Anticoagulant Treatment Social History Tobacco Use Types Packs/Day Years Used Date Smoking Tobacco: Never Passive Smoke Exposure: Never Smokeless Tobacco: Never Tobacco Cessation:Counseling Given: Not Answered Alcohol Use Standard Drinks/Week Comments No 0 (1 standard drink = 0.6 oz pur e alcohol) [facility] [employer] Answer Date Recorded In the past 12 months has [employer], oil, or water [employer] threatened to shut off services in your [...] Answer Date Recorded PHQ-2 Score 4 05/15/2024 [facility] - Occupational [...] your living situation today? I have a [facility] place to live 07/01/2023 Education Answer Date Recorded What is the highest level of school you have completed or the highest degree you have received? 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 Gender Identity Female 09/24/2022 9:59 PM CDT Sexual Orientation Straight 12/19/2021 3: 32 AM CDT documented as of this encounter Last Filed Vital Signs Vital Sign Reading Time Taken Comments Blood Pressure 137/71 05/15/2024 3:33 PM CDT Pulse 53 05/15/2024 3:33 PM CDT Temperature 36.1 C (96.9 F) 05/15/2024 3:25 PM CDT Respiratory Rate - - Oxygen Saturation - - Inhaled Oxygen Concentration - - Weight 88.4 kg (194 lb 14.2 oz) 05/15/2024 3:25 PM CDT Height 163 cm (5' 4.17) 05/15/2024 3:25 PM CDT per EMR Body Mass Index 33.27 05/15/2024 3:25 PM CDT documented in this encounter Patient Instructions * Patient Instructions* Patrick Erickson D.O. - 05/15/2024 3:30 PM CDT No changes in your medication regimen at this time. Contact the anticoagulation nurses to review your INR and change your warfarin dosing as we have discussed. Remember to wear your compression socks while traveling to assist with any swelling. Continue to monitor the swelling and your weight while traveling and remember you can take an extradose of furosemide if needed due to fluid retention. This has not uncommon while traveling on a cruise. Remember to hot die picker Dramamine or other similar nausea medications prior to your trip. Additionally you may want a stool softener since these medications can be constipating. Call if any questions or concerns otherwise plan to follow-up with an appointment and labs in about6 months. I have an excellent time on your trip! documented in this encounter Progress Notes * Patrick Erickson D.O. - 05/15/2024 3:30 PM CDT INTERNAL MEDICINE CLINIC PROGRESS NOTE: DATE OF EXAM: 05/15/2024 LOCATION OF EXAM: [facility] CHIEF COMPLAINT/REASON FOR VISIT Chief Complaint Patient presents with Hyperlipidemia Labs completed prior to appt Hypertension Labs completed prior to appt SUBJECTIVE HISTORY OF PRESENT ILLNESS Herminia Alberto is a 78 y.o. who presents today for follow-up of hypertension and atrial fibrillation. Overall she states to be feeling well today. She has no acute questions or concerns about her current cardiovascular medication regimen including atorvastatin 10 mg daily, carvedilol 6.25 mg twicedaily, furosemide 20 mg daily, lisinopril 40 mg daily, nifedipine 30 mg daily. She remains therapeutically anticoagulated with warfarin therapy. She denies any problems with chest pains, palpitations, shortness of breath, lower extremity edema. Renal function monitoring labs were obtained prior to her appointment today including CBC, BMP, and lipid panel. All laboratory studies are reviewed today and remained stable. OBJECTIVE PHYSICAL EXAM: Blood pressure 137/71, pulse (!) 53, temperature 36.1 ??C, temperature source Temporal, height 163 cm, weight 88.4 kg, not currently . GENERAL: Well-nourished, well-developed 78 y.o. in no apparent distress. Awake, alert, age appropriate. CARDIOVASCULAR: Regular rate and irregular rhythm. S1, S2 without murmurs. No rubs or gallops. No Lower extremity edema PULMONARY: Clear to auscultation bilaterally without crackles, wheezes, rhonchi. IMPRESSION/REPORT/PLAN: 1. 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 Chronic Kidney Disease (CKD), Stage 3a Glomerular Filtration Rate (GFR) 45 To 59 (HCC) (Primary) Stable on current combination of carvedilol, furosemide, lisinopril, nifedipine. Recommended no adjustments in chronic therapies. Renal function monitoring labs are up-to-date. Follow-up 6 months. - Magnesium; Future - Renal Function Panel; Future 3. Atrial Fibrillation Paroxysmal (HCC) 4. Prison (Current) Anticoagulant Treatment Stable rate controlled paroxysmal atrial fibrillation currently maintained on combination of carvedilol and warfarin therapy. Recommended no adjustments in chronic therapies. Monitoring laboratory studies are up-to-date. Follow up with the anticoagulation Clinic as directed with goal INR 2-3. Patrick Erickson D.O. documented in this encounter Plan of Treatment Upcoming Encounters Date Type Department Care Team (Latest Contact Info) Description 06/09/2024 11:20 AM CDT Appointment Department of Laboratory Medicine in [address] [phone] Patrick Erickson D.O. [address] [place] [phone] 06/09/2024 12:00 PM CDT Anticoagulation Visit Department of Anticoagulation in [place], [place] [address] [place] [address] Patrick Erickson D.O. [address] [place] [phone] Scheduled Orders Name Type Priority Associated Diagnoses Orde r Schedule Magnesium Lab Routine Chronic Kidney Disease (CKD), Stage 3a Glomerular Filtration Rate (GFR) 45 To 59 (HCC) Expected: 11/15/2024 (Approximate), Expires: 08/15/2025 Renal Function Panel Lab Routine Chronic Kidney Disease (CKD), Stage 3a Glomerular Filtration Rate (GFR) 45 To 59 (HCC) Expected: 11/15/2024 (Approximate), Expires: 08/15/2025 Scheduled Referrals Name Type Priority Associated Diagnoses Orde r Schedule [facility] Internal [facility] office visit (clinic) Outpatient Referral Routine Expected: 11/15/2024 (Approximate), Expires: 08/15/2025 documented as of this encounter Visit Diagnoses Diagnosis Chronic Kidney Disease (CKD), Stage 3a Glomerular Filtration Rate (GFR) 45 To 59 (HCC)- Primary 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 [address] [place] [phone] PCP - General Internal Medicine 08/12/22 documented as of this encounter
--- OUTSIDE RECORDS SUMMARY | 2024-06-06 15:47 | XMS_ITS | Encounter Summary ---
Author Organization [facility] Address [address] [place] [address] Care Team Providers Care Clinical Application Manager Name Role Phone Patrick Erickson D.O. Primary Care Provider +1- [phone] Encounter Details Date Type Department Care Team (Latest Contact Info) Description 04/28/2024 2:05 PM UPSET OPERATOR - 04/28/2024 11:59 PM [facility] Hospital Encounter Department of Laboratory Medicine in [place] [address] [place] [phone] Patrick Erickson D.O. [address] [place] [phone] Atrial Fibrillation Paroxysmal (HCC); Monitoring For Therapeutic Drug Therapy; Jail (Current) Anticoagulant Treatment Discharge Disposition: Home or Self Care Social History Tobacco Use Types Packs/Day Years Used Date Smoking Tobacco: Never Smokeless Tobacco: Never Alcohol Use Standard Drinks/Week Comments No 0 (1 standard drink = 0.6 oz pur e alcohol) [facility] Utilities Answer Date Recorded In the past 12 months has [employer], gas, oil, or water [employer] threatened to shut off services in your [...] your living situation today? I have a [facility] place to live 07/01/2023 Education Answer Date Recorded What is the highest level of school you have completed or the highest degree you have received? Associate degree: occupational, technical, or vocational program 05/30/2022 Comments No Sex and Gender Information Value Date Recorded Sex Assigned at Female 12/19/2021 3:32 AM CDT Legal Sex Female 9:57 PM UPSET OPERATOR Gender Identity Female 09/24/2022 9:59 PM CDT Sexual Orientation Straight 12/19/2021 3: 32 AM CDT documented as of this encounter Medications at Time of Discharge CHOLECALCIFEROL, VITAMIN D3, ORAL Take 1 capsule by mouth daily. 08/14/2015 cranberry conc/C/Bacill coag (CRANBERRY URINARY TRACT HEALTH ORAL) Take 1 tablet by mouth daily. CYANOCOBALAMIN, VITAMIN B-12, ORAL 1,000 mcg daily. 08/14/2015 cyclobenzaprine (FLEXERIL) 5 mg tablet Take 1 tablet (5 mg total) by mouth at bedtime as needed for muscle spasms. 30 tablet 06/26/2021 [id number] fw-upko-oevild 100 mg-150 mg- 50 mg-150 mg capsule Take by mouth 2 (two) times a day as needed. UNABLE TO FIND Med Name: frankincense oil PRN for shoulder pain 03/08/2024 UNABLE TO FIND Take 1 each by mouth daily. Med Name: Instaflex Multivitamin 03/08/2024 atorvastatin (Lipitor) 10 mg tablet TAKE 1 TABLET EVERY DAY 90 tablet 3 02/09/2024 5 carvediloL (COREG) 6.25 mg tablet take 1 tablet twice daily 180 tablet 3 06/24/2023 5 furosemide (Lasix) 20 mg tablet TAKE 1 TABLET (20 MG TOTAL) BY MOUTH DAILY. MAY TAKE AN EXTRA DOSE NEEDED FOR WEIGHT GAIN/EDEMA 100 tablet 3 02/17/2024 5 lisinopriL 40 mg tablet TAKE 1 TABLET EVERY DAY 90 tablet 3 02/09/2024 5 NIFEdipine (Adalat CC) 30 mg ER tablet Take 1 tablet (30 mg total) by mouth daily. 90 tablet 5 02/24/2024 5 warfarin (Jantoven) 5 mg tablet Take 7.5 mg by mouth daily. Take as directed 08/01/2022 5 documented as of this encounter Plan of Treatment Upcoming Encounters Date Type Department Care Team (Latest Contact Info) Description 06/09/2024 11:20 AM CDT Appointment Department of Laboratory Medicine in [address] [phone] Patrick Erickson D.O. [address] [place] [phone] 06/09/2024 12:00 PM CDT Anticoagulation Visit Department of Anticoagulation in [place], [place] [address] [place] [address] Patrick Erickson D.O. [address] [facility] [place] [phone] documented as of this encounter Procedures Procedure Name Priority Date/Time Associated Diagnosis Comments INR REFLEX, POCT, B Routine 04/28/2024 2:10 PM UPSET OPERATOR Atrial Fibrillation Paroxysmal (HCC) Monitoring For Therapeutic Drug Therapy Cannon Pinion Adjuster (Current) Anticoagulant Treatment documented in this encounter Results * INR Reflex, POCT, Blood (04/28/2024 2:10 PM UPSET OPERATOR) INR Reflex, POCT, B 1.9 04/28/2024 2:10 PM UPSET OPERATOR [id number] Comment: ----ADDITIONAL INFORMATION---- Standard intensity warfarin therapeutic range: 2.0 to 3.0 High intensity warfarin therapeutic range: 2.5 to 3.5 Blood (Blood, Capillary) 04/28/2024 2:10 PM UPSET OPERATOR 04/28/2024 2:10 PM UPSET OPERATOR us Patrick Erickson D.O. LAB POCT ORDERABLES - CARLOS ENRIQUE CE Final Result [facility] [address] [place] [address], [facility] [id number] [facility] in [address] [address] documented in this encounter Visit Diagnoses Diagnosis Atrial Fibrillation Paroxysmal (HCC) Monitoring For Therapeutic Drug Therapy Cannon Pinion Adjuster (Current) Anticoagulant Treatment documented in this encounter Additional Health Concerns Assessment Noted Time PHQ-9 Depression Total Score: 9 02/23/20 23 7:41 PM UPSET OPERATOR documented as of this encounter Care Teams Clinical Application Manager Relationship Specialty Start Date End Date Patrick Erickson D.O. [address] [phone] PCP - General Internal Medicine 08/12/22 documented as of this encounter
--- OUTSIDE RECORDS SUMMARY | 2024-06-06 15:47 | XMS_ITS | Encounter Summary ---
Author Organization [facility] Address [address] [place] [address] Care Team Providers Care Admittance Attendant Name Role Phone Patrick Erickson D.O. Primary Care Provider +1- [phone] Encounter Details Date Type Department Care Team (Latest Contact Info) Description 05/15/2024 2:11 PM CDT - 05/15/2024 11:59 PM CDT Hospital Encounter Department of Laboratory Medicine in [place], [place] [address] [place] [phone] Patrick Erickson D.O. 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 Or Unspecified Chronic Kidney Disease (HCC); Atrial Fibrillation Paroxysmal (HCC); Monitoring For Therapeutic Drug Therapy; Retirement (Current) Anticoagulant Treatment Discharge Disposition: Home or Self Care Social History Tobacco Use Types Packs/Day Years Used Date Smoking Tobacco: Never Passive Smoke Exposure: Never Smokeless Tobacco: Never Alcohol Use Standard Drinks/Week Comments No 0 (1 standard drink = 0.6 oz pur e alcohol) [facility] Utilities Answer Date Recorded In the past 12 months has e [employer], gas, oil, or water [employer] threatened to shut off services in your [...] How often do you attend chur or synagogue services? More than 4 times [...] Answer Date Recorded PHQ-2 Score 4 05/15/2024 [facility] of Occupat ional Health - Occupational Stress [...] your living situation today? I have a [facility] place to live 07/01/2023 Education Answer Date Recorded What is the highest level of school you have completed or the highest degree you have received? Associate degree: occupational, technical, or vocational program 05/30/2022 Comments No Sex and Gender Information Value Date Recorded Sex Assigned at Female 12/19/2021 3:32 AM CDT Legal Sex Female 9:57 PM INFORMATION TECHNOLOGY PROGRAM MANAGER Gender Identity Female 09/24/2022 9:59 PM [...] by mouth daily. 90 tablet 3 05/15/2024 [id number]-ihnc-ly bmb-jwek-cefqii 100 mg-150 mg- 50 mg-150 mg capsule [...] Appointment Department of Laboratory Medicine in [address] [place] [phone] Patrick Erickson D.O. [address] [place] [phone] 06/09/2024 12:00 PM CDT Anticoagulation Visit Department of Anticoagulation in [place], [place] [address] [place] [address] Patrick Erickson D.O. 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 LAB BLOOD ADD-ON Final Res ult [facility] [address] [place] [address], [facility] OWAT [facility] in [place] [address] [place] [address] * CBC without Differential (05/15/2024 2:19 PM CDT) Hemoglobin 12.4 11.6 - 15.0 g/dL 05/15/2024 2:23 PM CDT OWAT Hematocrit 39.0 35.5 - 44.9 % 05/15/2024 2:23 PM CDT OWAT Erythrocytes 4.35 3.92 - 5.13 x10(12)/L 05/15/2024 2:23 PM CDT OWAT MCV 89.7 78.2 - 97.9 fL 05/15/2024 2:23 PM CDT OWAT RBC Distrib Width 14.4 12.2 - 16.1 % 05/15/2024 2:23 PM CDT OWAT Platelet Count 192 157 - 371 x10(9)/L 05/15/2024 2:23 PM CDT OWAT Leukocytes 7.3 3.4 - 9.6 x10(9)/L 05/15/2024 2:23 PM CDT OWAT Blood (Blood, Venous) 05/15/2024 2:19 PM CDT 05/15/2024 2:21 PM CDT us Patrick Erickson D.O. LAB BLOOD ADD-ON Final Res ult [facility] [address] [place] [address], [facility] OWAT [facility] in [place] [address] [place] [address] * (ABNORMAL) Basic Metabolic Panel (05/15/2024 2:19 PM CDT) Potassium, P 3.9 3.6 - 5.2 mmol/L 05/15/2024 2:52 PM CDT OWAT Sodium, P 143 135 - 145 mmol/L 05/15/2024 2:52 PM CDT OWAT Chloride, P 105 98 - 107 mmol/L 05/15/2024 2:52 PM CDT OWAT Bicarbonate, P 26 22 - 29 mmol/L 05/15/2024 2:52 PM CDT OWAT Anion Gap, P 12 7 - 15 05/15/2024 2:52 PM CDT OWAT BUN (Blood Urea Nitrogen), P 18 6 - 21 mg/dL 05/15/2024 2:52 PM CDT OWAT Creatinine 1.13(H) 0.59 - 1.04 mg/dL 05/15/2024 2:52 PM CDT OWAT Estimated GFR (eGFR) 50(L) >=60 mL/min/BSA 05/15/2024 2:52 PM CDT OWAT Comment: Estimated GFR calculated using the 2020 CKD_EPI creatinine equation. Calcium, Total, P 9.2 8.8 - 10.2 mg/dL 05/15/2024 2:52 PM CDT OWAT Glucose, P 128 70 - 140 mg/dL 05/15/2024 2:52 PM CDT OWAT Blood (Blood, Venous) 05/15/2024 2:19 PM CDT 05/15/2024 2:21 PM CDT us Patrick Erickson D.O. LAB BLOOD ADD-ON Final Res ult [facility] [address] [address], [facility] OWAT [facility] [place] [address] [address] * Lipid Panel (05/15/2024 2:19 PM CDT) Triglycerides 114 mg/dL 05/15/2024 2:52 PM CDT OWAT Comment: ----REFERENCE VALUE---- Normal: <150 mg/dL Borderline High: 150-199 mg/dL High: 200-499 mg/dL Very High: > or =500 mg/dL Cholesterol, Total 144 mg/dL 2024 2:52 PM CDT OWAT Comment: ----REFERENCE VALUE---- Desirable: < 200 mg/dL Borderline High: 200 - 239 mg/dL High: > or = 240 mg/dL Cholesterol, LDL, Calculated 54 mg/dL 05/15/2024 2:52 PM CDT OWAT Comment: ----REFERENCE VALUE---- Desirable: <100 mg/dL Above Desirable: 100-129 mg/dL Borderline High: 130-159 mg/dL High: 160-189 mg/dL Very High: >=190 mg/dL ----ADDITIONAL INFORMATION---- LDL cholesterol calculated using the Moore/NIH equation. Cholesterol, HDL 70 >=50 mg/dL 05/16/19 2:52 PM CDT OWAT Cholesterol, Non-HDL, Calculated 74 mg/dL 05/15/2024 2:52 PM CDT OWAT Comment: ----REFERENCE VALUE---- Desirable: <130 mg/dL Above Desirable: 130-159 mg/dL Borderline High: 160-189 mg/dL High: 190-219 mg/dL Very High: > or =220 mg/dL Fasting (8 HR or more) No 05/15/2024 2:19 PM CDT OWAT Blood (Blood, Venous) 05/15/2024 2:19 PM CDT 05/15/2024 2:21 PM CDT us Patrick Erickson D.O. 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 [address] [place] [phone] PCP - General Internal Medicine 08/12/22 documented as of this encounter
--- OUTSIDE RECORDS SUMMARY | 2024-06-06 15:47 | XMS_ITS | Encounter Summary ---
Author Organization [facility] Address [address] [place] [address] Care Team Providers Care Small Engine Mechanic Name Role Phone Patrick Erickson D.O. Primary Care Provider +1- [phone] Reason for Visit * Reason Onset Date Comments Med Refill 05/09/2024 Encounter Details Date Type Department Care Team (Late st Contact Info) Description 05/09/2024 Refill Department of Internal Medicine in [place], [place] [address] [phone] Patrick Erickson D.O. [address] [phone] Med Refill Social History Tobacco [...] AM CDT Legal Sex Female 9:57 PM WIRELESS CELLULAR TECHNICIAN Gender Identity Female 09/24/2022 9:59 PM CDT Sexual Orientation Straight 12/19/2021 3: 32 AM CDT documented as of this encounter Plan of Treatment Upcoming Encounters Date Type Department Care Team (Latest Contact Info) Description 06/09/2024 11:20 AM CDT Appointment Department of Laboratory Medicine in [place] [address] [address] [facility] [phone] Patrick Erickson D.O. [address] [place] [phone] 06/09/2024 12:00 PM CDT Anticoagulation Visit Department of Anticoagulation in [place], [place] [address] [place] [address] Patrick Erickson D.O. [address], [place] [phone] documented as of this encounter Visit Diagnoses Not on filedocumented in this encounter Additional Health Concerns Assessment Noted Time PHQ-9 Depression Total Score: 9 02/23/20 23 7:41 PM WIRELESS CELLULAR TECHNICIAN documented as of this encounter Care Teams Small Engine Mechanic Relationship Specialty Start Date End Date Patrick Erickson D.O. [address] [phone] PCP - General Internal Medicine 08/12/22 documented as of this encounter
--- OUTSIDE RECORDS SUMMARY | 2024-06-06 15:47 | XMS_ITS | Encounter Summary ---
Author Organization [facility] Address [address] [place] [address] Care Team Providers Care Rotating Equipment Engineer Name Role Phone Patrick Erickson D.O. Primary Care Provider [phone]- [phone] Encounter Details Date Type Department Care Team (Latest Contact Info) Description 05/25/2024 11:20 AM CDT - 05/25/2024 11:59 PM CDT Hospital Encounter Department of Laboratory Medicine in [place], [place] [address] [place] [phone] Patrick Erickson D.O. 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 Utilities Answer Date Recorded In the past 12 months has th e electric, gas, oil, or water [employer] threatened to shut off services in [...] any clubs o r organizations such as evangelical groups, unions, fraternal or athletic groups, or [...] Answer Date Recorded PHQ-2 Score 4 05/15/2024 [facility] [place] of Occupat ional Health - Occupational Stress [...] AM CDT Legal Sex Female 9:57 PM CVT RN Gender Identity Female 09/24/2022 9:59 PM CDT [...] by mouth daily. 90 tablet 3 05/15/2024 cqsafbj-asua-pt xzc-aujt-drsizm 100 mg-150 mg- 50 mg-150 mg capsule [...] CDT Appointment Department of Laboratory Medicine in [address] [place] [phone] Patrick Erickson D.O. [address] [address] 06/09/2024 12:00 PM CDT Anticoagulation Visit Department of Anticoagulation in [place], [place] [address] [place] [address] Patrick Erickson D.O. 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 LAB POCT ORDERABLES - CARLOS ENRIQUE CE Final Result [facility] [address] [place] [address], [facility] FB60 [facility] [place] [address] [place] [address] documented in this encounter Visit Diagnoses Diagnosis [...] documented as of this encounter Care Teams Rotating Equipment Engineer Relationship Specialty Start Date End Date Patrick Erickson D.O. [address] [place] [phone] PCP - General Internal Medicine 08/12/22 documented as of this encounter
--- OUTSIDE RECORDS SUMMARY | 2024-06-06 15:49 | XMS_ITS | Encounter Summary ---
Author Organization [facility] Address [address] [place] [address] Care Team Providers Care Senior Trial Attorney Name Role Phone Patrick Erickson D.O. Primary Care Provider [phone]- [phone] Reason for Visit * Outpatient (Routine) - Authorized Specialty Diagnoses / Procedures Referred By Contkarri t Referred To Contact Anticoagulation Patrick Erickson D.O. [address] [place] [address] Phone: tel: fax: [facility] Region Referral ID Status Reason Start Date Expiration Date V isits Requested Visits Authorized [id number] Authorized 03/03/2024 09/02/2025 300 300 Encounter Details Date Type Department Care Team (Latest Contact Info) Description 06/06/2024 11:30 AM CDT Anticoagulation Visit Department of Anticoagulation in [place], [place] [address] [place] [address] Patrick Erickson D.O. 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 I have a [facility] place to live 07/01/2023 Education Answer Date Recorded What is the highest level of school you have completed or the highest degree you have received? Associate degree: occupational, technical, or vocational program 05/30/2022 Comments No Sex and Gender Information Value Date Recorded Sex Assigned at Female 12/19/2021 3:32 AM CDT Legal Sex Female 9:57 PM SUPERVISOR CIGAR MAKING HAND Gender Identity Female 09/24/2022 9:59 PM CDT Sexual Orientation Straight 12/19/2021 3: 32 AM CDT documented as of this encounter Patient Instructions * Patient Instructions* Manju Cardona R.N. - 06/06/2024 11:30 AM CDT Your next INR will be 06/09/2024. You will need to call the Anticoagulation Program for warfarin dosing at the scheduled time for your nurse visit, as indicated on your Patient Appointment Guide (PAG) To reschedule your appointment or for questions about your warfarin, please call Primary Care Anticoagulation Program at [phone] from 7:30 am to 4:30 pm. Wednesday-Wednesday [...] if you start any herbal or other rrmn-wxq-bkwdcvl product (check with your doctor, a nurse, [...] CDT Appointment Department of Laboratory Medicine in [place], [place] [address] [place] [address] Patrick Erickson D.O. [address] [place] [address] 06/09/2024 12:00 PM CDT Anticoagulation Visit Department of Anticoagulation in [place], [place] [address] [place] [address] Patrick Erickson D.O. 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 [address], [place] [address] PCP - General Internal Medicine 08/12/22 documented as of this encounter
--- OUTSIDE RECORDS SUMMARY | 2024-06-06 15:49 | XMS_ITS | Clinical Summary ---
Author Organization [facility] Address [address] [place] [address] Care Team Providers Care Watcher Automat Long Goods Name Role Phone None Primary Care Provider Harvinder Peterson MD Unavailable [phone] Allergies Active Allergy Reactions Criticality Noted Date [...] feet as needed 0 3 Active Immunizations Immunization Administration Dates Next Due Influenza Virus, Unspecified [...] on file Legal Sex Female 5:26 AM MELANGEUR OPERATOR Gender Identity Not on file Sexual Orientation [...] 2023 01/14/2022, 02/01/2021, 04/22/2020, Additional history exists Tetanus booster 08/17/2024 08/17/2014 Influenza Vaccine (Season Ended) 2024 12/15/19 15, 01/20/2007 Tdap Completed 08/17/2014 Pneumococcal series for age 50+ Completed 5, 08/17/2014 Insurance [employer] CHOICE PPO MR [employer] CHOICE PPO MR Care Teams Watcher Automat Long Goods Relationship Specialty Start Date End Date None . PCP - General 08/01/14 Harvinder Pike MD [address] [place] [address] 08/01/14
--- OUTSIDE RECORDS SUMMARY | 2024-06-06 15:49 | XMS_ITS | Encounter Summary ---
Author Organization [facility] Address [address] [place] [address] Care Team Providers Care Rattle Leak And Squeak Repairer Name Role Phone Patrick Erickson D.O. Primary Care Provider [phone]- [phone] Encounter Details Date Type Department Care Team (Latest Contact Info) Description 04/24/2024 8:50 AM SPINDLE REPAIRER - 04/24/2024 11:59 PM [facility] Hospital Encounter Department of Laboratory Medicine in [place] [address] [place] [phone] Patrick Erickson D.O. 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 More than 4 times per year [...] Answer Date Recorded PHQ-2 Score 0 04/27/2023 [facility] [place] of Occupat ional Health - Occupational Stress [...] your living situation today? I have a [facility] place to live 07/01/2023 Education Answer Date Recorded What is the highest level of school you have completed or the highest degree you have received? Associate degree: occupational, technical, or vocational program 05/30/2022 Comments No Sex and Gender Information Value Date Recorded Sex Assigned at Female 12/19/2021 3:32 AM CDT Legal Sex Female 9:57 PM SPINDLE REPAIRER Gender Identity Female 09/24/2022 9:59 PM CDT [...] needed for muscle spasms. 30 tablet 06/26/2021 dxfaeor-gimq-kpc tj-xjkj-liivmy 100 mg-150 mg- 50 mg-150 mg capsule [...] CDT Appointment Department of Laboratory Medicine in [place], [place] [address] [place] [phone] Patrick Erickson D.O. [address] [place] [address] 06/09/2024 12:00 PM CDT Anticoagulation Visit Department of Anticoagulation in [place], [place] [address] [place] [address] Patrick Erickson D.O. 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 [address] [place] [phone] PCP - General Internal Medicine 08/12/22 documented as of this encounter
--- OUTSIDE RECORDS SUMMARY | 2024-06-06 15:49 | XMS_ITS | Encounter Summary ---
Author Organization [facility] Address [address] [place] [address] Care Team Providers Care Sheet Metal Technician Name Role Phone Patrick Erickson D.O. Primary Care Provider [phone] Reason for Visit * Outpatient (Routine) - Authorized Specialty Diagnoses / Procedures Referred By Contkarri t Referred To Contact Anticoagulation Patrick Erickson D.O. [address] [place] [address] Phone: tel: fax: [facility] Region Referral ID Status Reason Start Date Expiration Date V isits Requested Visits Authorized [id number] Authorized 03/03/2024 09/02/2025 300 300 Encounter Details Date Type Department Care Team (Latest Contact Info) Description 04/24/2024 9:30 AM CERAMICS TECHNICIAN Anticoagulation Visit Department of Anticoagulation in [place], [place] [address] [place] [address] Patrick Erickson D.O. 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 More than 4 times [...] Date Recorded PHQ-2 Score 0 04/27/2023 [facility] [place] of Occupat ional Health - Occupational Stress [...] AM CDT Legal Sex Female 9:57 PM CERAMICS TECHNICIAN Gender Identity Female 09/24/2022 9:59 PM CDT Sexual Orientation Straight 12/19/2021 3: 32 AM CDT documented as of this encounter Patient Instructions * Patient Instructions* Cullen Guillen RMoraima. - 04/24/2024 9:30 AM CERAMICS TECHNICIAN Your next INR will be WednesdayApril 28. You will need to call the Anticoagulation Program at the time of your scheduled nurse visit or you can complete the Anticoagulation Pre-Visit Questionnaireand if no additional information is needed, your dosing can be provided via your Patient portal. To reschedule your appointment or for questions about your warfarin, please call Primary Care Anticoagulation Program at [phone] from 7:30 am to 4:30 pm. Wednesday-Wednesday [...] if you start any herbal or other okdt-nsb-xfkeyxc product (check with your doctor, a nurse, or pharmacist). If you change your diet significantly. If you decide to stop or start using tobacco or alcohol. If you notice unusual bruising or bleeding. If you notice dark, tarry, or bright red stools or blood in your urine. If you have a painful and swollen calf. MICS TECHNICIAN documented in this encounter Plan of Treatment Upcoming Encounters Date Type Department Care Team (Latest Contact Info) Description 06/09/2024 11:20 AM CDT Appointment Department of Laboratory Medicine in [place], [place] [address] [place] [address] Patrick Erickson D.O. [address] [place] [address] 06/09/2024 12:00 PM CDT Anticoagulation Visit Department of Anticoagulation in [place], [place] [address] [place] [address] Patrick Erickson D.O. [address] [place] [address] documented as of this encounter Results * INR Reflex, POCT, Blood (04/28/2024 2:10 PM CERAMICS TECHNICIAN) [facility] INR Reflex, POCT, B 1.9 04/28/2024 2:10 PM CERAMICS TECHNICIAN [id number] Comment: ----ADDITIONAL INFORMATION---- Standard intensity warfarin therapeutic range: 2.0 to 3.0 High intensity warfarin therapeutic range: 2.5 to 3.5 Blood (Blood, Capillary) 04/28/2024 2:10 PM CERAMICS TECHNICIAN 04/28/2024 2:10 PM CERAMICS TECHNICIAN Patrick Erickson D.O. LAB POCT ORDERABLES - CARLOS ENRIQUE CE Final Result [facility] [address] [place] [address], [facility] FB60 [facility] in [address] [address] documented in this encounter Visit Diagnoses Diagnosis [...] Depression Total Score: 9 02/23/20 7:41 PM CERAMICS TECHNICIAN documented as of this encounter Care Teams Sheet Metal Technician Relationship Specialty Start Date End Date Patrick Erickson D.O. [address] [place] [address] PCP - General Internal Medicine 08/12/22 documented as of this encounter
--- OUTSIDE RECORDS SUMMARY | 2024-06-06 15:49 | XMS_ITS | Continuity of Care Document ---
Author Organization [facility] Address [address] [place] [address] Care Team Providers Care Burr Grinder Name Role Phone Patrick Erickson D.O. Primary Care Provider [phone]- [phone] Source Comments Patient records contain information from all sites at [facility]. For routine questions regarding patient records, call [phone] during business hours, M-F 8:00 AM - 5:00 PM Central Time. Record requests for emergency care only can be directed to [phone] at any time.[facility] Encounters Date Type Department Care Team Description 06/06/2024 11:30 AM CDT Anticoagulation Visit Department of Anticoagulation in [place], [place] [address] [place] [address] Patrick Erickson D.O. 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 Hypertensive Heart And Chronic Kidney Disease With Heart Failure And Stage 1 To 4 Chronic Kidney Disease Or Unspecified Chronic Kidney Disease (HCC); Hyperlipidemia On Treatment; Atrial Fibrillation Paroxysmal (HCC); Monitoring For Therapeutic Drug Therapy; Alf (Current) Anticoagulant Treatment Discharge Disposition: Home or Self Care 05/24/2024 10:30 AM CDT Anticoagulation Visit Department of Anticoagulation in [place], [place] [address] [place] [phone] Patrick Erickson D.O. 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 Hypertensive Heart And Chronic Kidney Disease With Heart Failure And Stage 1 To 4 Chronic Kidney Disease Or Unspecified Chronic Kidney Disease (HCC) (Primary Dx); Hyperlipidemia On Treatment; Atrial Fibrillation Paroxysmal (HCC); Monitoring For Therapeutic Drug Therapy; Alf (Current) Anticoagulant Treatment 05/23/2024 3:20 PM CDT - 05/23/2024 11:59 PM CDT Hospital Encounter Department of Laboratory Medicine in [address] [address] Patrick Erickson D.O. 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 05/09/2024 Refill Department of Internal Medicine in [place], [place] [address] [place] [address] Patrick Erickson D.O. Med Refill 05/09/2024 1:30 PM MANAGER CATH LAB Anticoagulation Visit Department of Anticoagulation in [place], [place] [address] [place] [phone] Patrick Erickson D.O. Hypertensive Heart And Chronic Kidney Disease With Heart Failure And Stage 1 To 4 Chronic Kidney Disease Or Unspecified Chronic Kidney Disease (HCC) (Primary Dx); Hyperlipidemia On Treatment; Atrial Fibrillation Paroxysmal (HCC); Monitoring For Therapeutic Drug Therapy; Alf (Current) Anticoagulant Treatment 05/09/2024 12:26 PM MANAGER CATH LAB - 05/09/2024 11:59 PM MANAGER CATH LAB Hospital Encounter Department of Laboratory Medicine in [address] [address] Patrick Erickson D.O. 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 Atrial Fibrillation Paroxysmal (HCC); Monitoring For Therapeutic Drug Therapy; Alf (Current) Anticoagulant Treatment Discharge Disposition: Home or Self Care 04/28/2024 3:00 PM MANAGER CATH LAB Anticoagulation Visit Department of Anticoagulation in [place], [place] [address] [place] [phone] Patrick Erickson D.O. 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 Hypertensive Heart And Chronic Kidney Disease With Heart Failure And Stage 1 To 4 Chronic Kidney Disease Or Unspecified Chronic Kidney Disease (HCC); Hyperlipidemia On Treatment; Atrial Fibrillation Paroxysmal (HCC); Monitoring For Therapeutic Drug Therapy; Alf (Current) Anticoagulant Treatment Discharge Disposition: Home or Self Care 04/10/2024 12:30 PM MANAGER CATH LAB Anticoagulation Visit Department of Anticoagulation in [place], [place] [address] [place] [phone] Patrick Erickson D.O. 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 Hypertensive Heart And Chronic Kidney Disease With Heart Failure And Stage 1 To 4 Chronic Kidney Disease Or Unspecified Chronic Kidney Disease (HCC); Hyperlipidemia On Treatment; Atrial Fibrillation Paroxysmal (HCC); Monitoring For Therapeutic Drug Therapy; Alf (Current) Anticoagulant Treatment Discharge Disposition: Home or Self Care 03/30/2024 12:00 PM MANAGER CATH LAB Anticoagulation Visit Department of Anticoagulation in [place], [place] [address] [place] [phone] Patrick Erickson D.O. Hypertensive Heart And Chronic Kidney Disease With Heart Failure And Stage 1 To 4 Chronic Kidney Disease Or Unspecified Chronic Kidney Disease (HCC) (Primary Dx); Hyperlipidemia On Treatment; Atrial Fibrillation Paroxysmal (HCC); Monitoring For Therapeutic Drug Therapy; Alf (Current) Anticoagulant Treatment 03/23/2024 11:10 AM MANAGER CATH LAB Anticoagulation Visit Department of Anticoagulation in [place], [place] [address] [place] [phone] Patrick Erickson D.O. Hypertensive Heart And Chronic Kidney Disease With Heart Failure And Stage 1 To 4 Chronic Kidney Disease Or Unspecified Chronic Kidney Disease (HCC) (Primary Dx); Hyperlipidemia On Treatment; Atrial Fibrillation Paroxysmal (HCC); Monitoring For Therapeutic Drug Therapy; Alf (Current) Anticoagulant Treatment 03/20/2024 4:00 PM MANAGER CATH LAB - 03/20/2024 11:59 PM MANAGER CATH LAB Hospital Encounter Department of Laboratory Medicine in [place], [place] [address] [place] [address] Patrick Erickson D.O. Hypertensive Heart And Chronic Kidney Disease With Heart Failure And Stage 1 To 4 Chronic Kidney Disease Or Unspecified Chronic Kidney Disease (HCC); Hyperlipidemia On Treatment; Atrial Fibrillation Paroxysmal (HCC); Monitoring For Therapeutic Drug Therapy; Alf (Current) Anticoagulant Treatment Discharge Disposition: Home or Self Care 03/13/2024 9:10 AM MANAGER CATH LAB Anticoagulation Visit Department of Anticoagulation in [place], [place] [address] [place] [phone] Patrick Erickson D.O. Hypertensive Heart And Chronic Kidney Disease With Heart Failure And Stage 1 To 4 Chronic Kidney Disease Or Unspecified Chronic Kidney Disease (HCC) (Primary Dx); Hyperlipidemia On Treatment; Atrial Fibrillation Paroxysmal (HCC); Monitoring For Therapeutic Drug Therapy; Alf (Current) Anticoagulant Treatment 03/10/2024 3:20 PM MANAGER CATH LAB - 03/10/2024 11:59 PM MANAGER CATH LAB Hospital Encounter Department of Laboratory Medicine in [address] [phone] Patrick Erickson D.O. Hypertensive Heart And Chronic Kidney Disease With Heart Failure And Stage 1 To 4 Chronic Kidney Disease Or Unspecified Chronic Kidney Disease (HCC); Hyperlipidemia On Treatment; Atrial Fibrillation Paroxysmal (HCC); Monitoring For Therapeutic Drug Therapy; Alf (Current) Anticoagulant Treatment Discharge Disposition: Home or Self Care 03/03/2024 8:40 AM MANAGER CATH LAB Anticoagulation Visit Department of Anticoagulation in [place], [place] [address] [place] [address] Patrick Erickson D.O. Hypertensive Heart And Chronic Kidney Disease With Heart Failure And Stage 1 To 4 Chronic Kidney Disease Or Unspecified Chronic Kidney Disease (HCC) (Primary Dx); Hyperlipidemia On Treatment; Atrial Fibrillation Paroxysmal (HCC); Monitoring For Therapeutic Drug Therapy; Alf (Current) Anticoagulant Treatment 03/02/2024 4:11 PM MANAGER CATH LAB - 03/02/2024 11:59 PM MANAGER CATH LAB Hospital Encounter Department of Laboratory Medicine in [address] [phone] Patrick Erickson D.O. 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 Med Question 02/28/2024 3:45 PM MANAGER CATH LAB Nurse Only Department of Family Medicine, [facility], in [place], [place] [address] [place] [address] Patrick Erickson D.O. Deflieger, Maria P, L.P.N. Nurse Visit (hypertension) 02/24/2024 10:10 AM MANAGER CATH LAB Anticoagulation Visit Department of Anticoagulation in [place], [place] [address] [place] [phone] Patrick Erickson D.O. Atrial Fibrillation Paroxysmal (HCC) (Primary Dx); Hypertensive Heart And Chronic Kidney Disease With Heart Failure And Stage 1 To 4 Chronic Kidney Disease Or Unspecified Chronic Kidney Disease (HCC); Hyperlipidemia On Treatment; Monitoring For Therapeutic Drug Therapy; Alf (Current) Anticoagulant Treatment 02/24/2024 8:55 AM MANAGER CATH LAB - 02/24/2024 11:59 PM MANAGER CATH LAB Hospital Encounter Department of Laboratory Medicine in [address] [phone] Patrick Erickson D.O. 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 Med Question 02/18/2024 11:30 AM MANAGER CATH LAB Anticoagulation Visit Department of Anticoagulation in [place], [place] [address] [place] [address] Patrick Erickson D.O. 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 Hypertensive Heart And Chronic Kidney Disease With Heart Failure And Stage 1 To 4 Chronic Kidney Disease Or Unspecified Chronic Kidney Disease (HCC); Hyperlipidemia On Treatment; Atrial Fibrillation Paroxysmal (HCC); Monitoring For Therapeutic Drug Therapy; Alf (Current) Anticoagulant Treatment Discharge Disposition: Home or Self Care 02/16/2024 Refill Department of Internal Medicine in [address] [address] Soheila Zapata P.A.-C., M.S. Med Refill 02/14/2024 Clinical Communication Department of Internal Medicine in [place], [place] [address] [place] [phone] Patrick Erickson D.O. 02/14/2024 4:20 PM MANAGER CATH LAB Office Visit Department of Internal Medicine in [place], [place] [address] [place] [phone] Patrick Erickson D.O. Hypertensive Heart And Chronic Kidney Disease With Heart Failure And Stage 1 To 4 Chronic Kidney Disease Or Unspecified Chronic Kidney Disease (HCC) (Primary Dx) 02/10/2024 8:30 AM MANAGER CATH LAB Anticoagulation Visit Department of Anticoagulation in [place], [place] [address] [place] [address] Patrick Erickson D.O. 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 Med Refill 01/31/2024 11:30 AM MANAGER CATH LAB Anticoagulation Visit Department of Anticoagulation in [place], [place] [address] [place] [phone] Patrick Erickson D.O. Hypertensive Heart And Chronic Kidney Disease With Heart Failure And Stage 1 To 4 Chronic Kidney Disease Or Unspecified Chronic Kidney Disease (HCC) (Primary Dx); Hyperlipidemia On Treatment; Atrial Fibrillation Paroxysmal (HCC); Monitoring For Therapeutic Drug Therapy; Alf (Current) Anticoagulant Treatment 01/31/2024 10:34 AM MANAGER CATH LAB - 01/31/2024 11:59 PM MANAGER CATH LAB Hospital Encounter Department of Laboratory Medicine in [address] [phone] aPtrick Erickson D.O. Hypertensive Heart And Chronic Kidney Disease With Heart Failure And Stage 1 To 4 Chronic Kidney Disease Or Unspecified Chronic Kidney Disease (HCC); Hyperlipidemia On Treatment; Atrial Fibrillation Paroxysmal (HCC); Monitoring For Therapeutic Drug Therapy; Alf (Current) Anticoagulant Treatment Discharge Disposition: Home or Self Care 01/27/2024 7:50 AM MANAGER CATH LAB - 01/27/2024 11:59 PM MANAGER CATH LAB Hospital Encounter Department of Laboratory Medicine in [address] [phone] Patrick Erickson D.O. 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 Communication 01/13/2024 7:44 AM MANAGER CATH LAB - 01/13/2024 11:59 PM MANAGER CATH LAB Hospital Encounter Department of Laboratory Medicine in [address] [phone] Patrick Erickson D.O. Hypertensive Heart And Chronic Kidney Disease With Heart Failure And Stage 1 To 4 Chronic Kidney Disease Or Unspecified Chronic Kidney Disease (HCC); Hyperlipidemia On Treatment; Atrial Fibrillation Paroxysmal (HCC); Monitoring For Therapeutic Drug Therapy; Alf (Current) Anticoagulant Treatment Discharge Disposition: Home or Self Care 01/13/2024 8:30 AM MANAGER CATH LAB Anticoagulation Visit Department of Anticoagulation in [address] [address] Patrick Erickson D.O. 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 Blood Pressure 01/11/2024 3:45 PM MANAGER CATH LAB Nurse Only Department of Family Medicine, [facility], in [address] [phone] Patrick Erickson D.O. Davis, Connor R, L.P.N. Blood Pressure Check 01/06/2024 7:50 AM CDT - 01/06/2024 11:59 PM CDT Hospital Encounter Department of Laboratory Medicine in [address] [phone] Patrick Erickson D.O. 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 Hypertensive Heart And Chronic Kidney Disease With Heart Failure And Stage 1 To 4 Chronic Kidney Disease Or Unspecified Chronic Kidney Disease (HCC) (Primary Dx); Hyperlipidemia On Treatment; Atrial Fibrillation Paroxysmal (HCC); Monitoring For Therapeutic Drug Therapy; Alf (Current) Anticoagulant Treatment 12/29/2023 8:40 AM CDT Anticoagulation Visit Department of Anticoagulation in [place], [place] [address] [place] [phone] Soheila Zapata P.A.-C., M.S. Hypertensive Heart And Chronic Kidney Disease With Heart Failure And Stage 1 To 4 Chronic Kidney Disease Or Unspecified Chronic Kidney Disease (HCC) (Primary Dx); Hyperlipidemia On Treatment; Atrial Fibrillation Paroxysmal (HCC); Monitoring For Therapeutic Drug Therapy; Alf (Current) Anticoagulant Treatment 12/28/2023 1:40 PM CDT Office Visit Department of Internal Medicine in [place], [place] [address] [place] [address] Patrick Erickson D.O. Robbie Bowles, R.N. Annual Medicare Examination Return (Primary Dx) 12/28/2023 2:29 PM CDT - 12/28/2023 11:59 PM CDT Hospital Encounter Department of Laboratory Medicine in [address] [phone] Patrick Erickson D.O. Hypertensive Heart And Chronic Kidney Disease With Heart Failure And Stage 1 To 4 Chronic Kidney Disease Or Unspecified Chronic Kidney Disease (HCC); Hyperlipidemia On Treatment; Atrial Fibrillation Paroxysmal (HCC); Monitoring For Therapeutic Drug Therapy; Alf (Current) Anticoagulant Treatment Discharge Disposition: Home or Self Care 12/28/2023 1:00 PM CDT Office Visit Department of Internal Medicine in [place], [place] [address] [place] [address] Patrick Erickson D.O. Atrial Fibrillation Paroxysmal (HCC) (Primary Dx); Hypertensive Heart And Chronic Kidney Disease With Heart Failure And Stage 1 To 4 Chronic Kidney Disease Or Unspecified Chronic Kidney Disease (HCC); Hyperlipidemia On Treatment 12/24/2023 4:20 PM CDT Anticoagulation Visit Department of Anticoagulation in [place], [place] [address] [place] [address] Soheila Zapata P.A.-Ashish., M.S. Hypertensive Heart And Chronic Kidney Disease With Heart Failure And Stage 1 To 4 Chronic Kidney Disease Or Unspecified Chronic Kidney Disease (HCC) (Primary Dx); Hyperlipidemia On Treatment; Atrial Fibrillation Paroxysmal (HCC); Monitoring For Therapeutic Drug Therapy; Alf (Current) Anticoagulant Treatment 12/24/2023 3:34 PM CDT - 12/24/2023 11:59 PM CDT Hospital Encounter Department of Laboratory Medicine in [address] [address] Patrick Erickson D.O. 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 Hypertensive Heart And Chronic Kidney Disease With Heart Failure And Stage 1 To 4 Chronic Kidney Disease Or Unspecified Chronic Kidney Disease (HCC) Discharge Disposition: Home or Self Care 12/20/2023 4:20 PM CDT Anticoagulation Visit Department of Anticoagulation in [place], [place] [address] [place] [address] Soheila Zapata P.A.-C., M.S. Atrial Fibrillation Paroxysmal (HCC) (Primary Dx); Hypertensive Heart And Chronic Kidney Disease With Heart Failure And Stage 1 To 4 Chronic Kidney Disease Or Unspecified Chronic Kidney Disease (HCC); Hyperlipidemia On Treatment; Monitoring For Therapeutic Drug Therapy; Alf (Current) Anticoagulant Treatment 12/20/2023 3:50 PM CDT - 12/20/2023 11:59 PM CDT Hospital Encounter Department of Laboratory Medicine in [address] [address] Patrick Erickson D.O. 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 Anticoagulation (Unable to come in for INR today) 12/15/2023 Clinical Communication Department of Anticoagulation in [place], [place] [address] [place] [phone] Alea Eaton R.N. Anticoagulation (DOAC) 12/15/2023 4:49 PM CDT - 12/15/2023 11:59 PM CDT Hospital Encounter Department of Laboratory Medicine in [address] [address] Patrick Erickson D.O. Atrial Fibrillation Paroxysmal (HCC) Discharge Disposition: Home or Self Care 12/14/2023 11:30 AM CDT Anticoagulation Visit Department of Anticoagulation in [address] [address] Soheila Zapata P.A.-C., M.S. Hypertensive Heart And Chronic Kidney Disease With Heart Failure And Stage 1 To 4 Chronic Kidney Disease Or Unspecified Chronic Kidney Disease (HCC) (Primary Dx); Hyperlipidemia On Treatment; Atrial Fibrillation Paroxysmal (HCC); Monitoring For Therapeutic Drug Therapy; Alf (Current) Anticoagulant Treatment 12/13/2023 4:15 PM CDT - 12/13/2023 11:59 PM CDT Hospital Encounter Department of Laboratory Medicine in [address] [address] Patrick Erickson D.O. Atrial Fibrillation Paroxysmal (HCC) Discharge Disposition: Home or Self Care 12/10/2023 Refill Department of Internal Medicine in [address] [address] Patrick Erickson D.O. Med Refill 12/06/2023 Clinical Communication Department of Anticoagulation in [address] [phone] Isa Callahan, RAziza Anticoagulation (INR - ordered by provider ) 12/06/2023 Clinical Communication Department of Cardiovascular Diseases in [address] [address] Roberto Dumont APRN C.NHowieP. Med Question 12/03/2023 2:50 PM CDT - 12/03/2023 11:59 PM CDT Hospital Encounter Department of Laboratory Medicine in [address] [address] Patrick Erickson D.O. 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 Atrial Fibrillation Paroxysmal (HCC) (Primary Dx); Hypertensive Heart And Chronic Kidney Disease With Heart Failure And Stage 1 To 4 Chronic Kidney Disease Or Unspecified Chronic Kidney Disease (HCC); Hyperlipidemia On Treatment; Monitoring For Therapeutic Drug Therapy; Alf (Current) Anticoagulant Treatment 12/01/2023 Clinical Communication Department of Orthopedic Surgery in [place], [place] [address] [address] Sher Bauman M.D. Arm Injury; Post Ed Visit Follow-up 11/29/2023 Clinical Communication Department of Family Medicine, [facility] in [place], [place] [address] [place] [address] Butch Sanchez R.N. COVID Treatment Review 11/27/2023 Nurse Triage Department of Internal Medicine in [place], [place] [address] [address] Kari Olivarez R.N. Cough 11/22/2023 4:00 PM CDT Anticoagulation Visit Department of Anticoagulation in [place], [place] [address] [place] [address] Soheila Zapata P.A.-C., M.S. Hypertensive Heart And Chronic Kidney Disease With Heart Failure And Stage 1 To 4 Chronic Kidney Disease Or Unspecified Chronic Kidney Disease (HCC) (Primary Dx); Hyperlipidemia On Treatment; Atrial Fibrillation Paroxysmal (HCC); Monitoring For Therapeutic Drug Therapy; Alf (Current) Anticoagulant Treatment 11/22/2023 3:20 PM CDT - 11/22/2023 11:59 PM CDT Hospital Encounter Department of Laboratory Medicine in [address] [address] Patrick Erickson D.O. 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 11/02/2023 Clinical Communication Department of Anticoagulation in [address] [address] Cullen Guillen R.N. Anticoagulation ([facility] Update-New PCP) 11/02/2023 3:30 PM CDT Anticoagulation Visit Department of Anticoagulation in [address] [address] Soheila Zapata P.A.-Ashish., M.S. Hypertensive Heart And Chronic Kidney Disease With Heart Failure And Stage 1 To 4 Chronic Kidney Disease Or Unspecified Chronic Kidney Disease (HCC) (Primary Dx); Hyperlipidemia On Treatment; Atrial Fibrillation Paroxysmal (HCC); Monitoring For Therapeutic Drug Therapy; Alf (Current) Anticoagulant Treatment 11/02/2023 2:50 PM CDT - 11/02/2023 11:59 PM CDT Hospital Encounter Department of Laboratory Medicine in [address] [address] Patrick Erickson D.O. 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 Hypertensive Heart And Chronic Kidney Disease With Heart Failure And Stage 1 To 4 Chronic Kidney Disease Or Unspecified Chronic Kidney Disease (HCC); Hyperlipidemia On Treatment; Atrial Fibrillation Paroxysmal (HCC); Monitoring For Therapeutic Drug Therapy; Alf (Current) Anticoagulant Treatment Discharge Disposition: Home or Self Care 10/19/2023 10:10 AM CDT Anticoagulation Visit Department of Anticoagulation in [address] [address] Soheila Zapata P.A.-C., M.S. 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 Hypertensive Heart And Chronic Kidney Disease With Heart Failure And Stage 1 To 4 Chronic Kidney Disease Or Unspecified Chronic Kidney Disease (HCC); Hyperlipidemia On Treatment; Atrial Fibrillation Paroxysmal (HCC); Monitoring For Therapeutic Drug Therapy; Alf (Current) Anticoagulant Treatment Discharge Disposition: Home or Self Care 10/08/2023 9:30 AM CDT Anticoagulation Visit Department of Anticoagulation in [address] [address] Soheila Zapata P.A.-C., M.S. Hypertensive Heart And Chronic Kidney Disease With Heart Failure And Stage 1 To 4 Chronic Kidney Disease Or Unspecified Chronic Kidney Disease (HCC) (Primary Dx); Hyperlipidemia On Treatment; Atrial Fibrillation Paroxysmal (HCC); Monitoring For Therapeutic Drug Therapy; Alf (Current) Anticoagulant Treatment 10/07/2023 2:49 PM CDT - 10/07/2023 11:59 PM CDT Hospital Encounter Department of Laboratory Medicine in [address] [address] Patrick Erickson D.O. Atrial Fibrillation Paroxysmal (HCC) Discharge Disposition: Home or Self Care 10/04/2023 3:50 PM CDT Anticoagulation Visit Department of Anticoagulation in [place], [place] [address] [place] [phone] Soheila Zapata P.A.-C., M.S. Atrial Fibrillation Paroxysmal (HCC) (Primary Dx); Hypertensive Heart And Chronic Kidney Disease With Heart Failure And Stage 1 To 4 Chronic Kidney Disease Or Unspecified Chronic Kidney Disease (HCC); Hyperlipidemia On Treatment; Monitoring For Therapeutic Drug Therapy; Alf (Current) Anticoagulant Treatment 10/01/2023 Clinical Communication Department of Anticoagulation in [place], [place] [address] [place] [phone] La Mendoza R.N. Anticoagulation (Out of range INR.) 10/01/2023 2:30 PM CDT - 10/01/2023 11:59 PM CDT Hospital Encounter Department of Laboratory Medicine in [place], [place] [facility] [address], [place] [address] Patrick Erickson D.O. 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 Hypertensive Heart With Heart Failure And Chronic Kidney Disease (CKD) Stage 3a Glomerular Filtration Rate (GFR) 45 To 59 (HCC) (Primary Dx); Hyperlipidemia On Treatment; Atrial Fibrillation Paroxysmal (HCC); Monitoring For Therapeutic Drug Therapy; Alf (Current) Anticoagulant Treatment 09/24/2023 2:50 PM CDT - 09/24/2023 11:59 PM CDT Hospital Encounter Department of Laboratory Medicine in [address] [address] Patrick Erickson D.O. 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 Hypertensive Heart With Heart Failure And Chronic Kidney Disease (CKD) Stage 3a Glomerular Filtration Rate (GFR) 45 To 59 (HCC) (Primary Dx); Hyperlipidemia On Treatment; Atrial Fibrillation Paroxysmal (HCC); Monitoring For Therapeutic Drug Therapy; Alf (Current) Anticoagulant Treatment 09/21/2023 11:55 AM CDT - 09/21/2023 11:59 PM CDT Hospital Encounter Department of Laboratory Medicine in [address] [address] Patrick Erickson D.Claudia Hypertensive Heart With Heart Failure And Chronic Kidney Disease (CKD) Stage 3a Glomerular Filtration Rate (GFR) 45 To 59 (HCC); Hyperlipidemia On Treatment; Atrial Fibrillation Paroxysmal (HCC); Monitoring For Therapeutic Drug Therapy; 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 Hypertensive Heart With Heart Failure And Chronic Kidney Disease (CKD) Stage 3a Glomerular Filtration Rate (GFR) 45 To 59 (HCC) (Primary Dx); Hyperlipidemia On Treatment; Atrial Fibrillation Paroxysmal (HCC); Monitoring For Therapeutic Drug Therapy; Alf (Current) Anticoagulant Treatment 09/08/2023 3:20 PM CDT - 09/08/2023 11:59 PM CDT Hospital Encounter Department of Laboratory Medicine in [address] [address] Patrick Erickson D.O. Hypertensive Heart With Heart Failure And Chronic Kidney Disease (CKD) Stage 3a Glomerular Filtration Rate (GFR) 45 To 59 (HCC); Hyperlipidemia On Treatment; Atrial Fibrillation Paroxysmal (HCC); Monitoring For Therapeutic Drug Therapy; Alf (Current) Anticoagulant Treatment Discharge Disposition: Home or Self Care 09/02/2023 4:00 PM CDT Anticoagulation Visit Department of Anticoagulation in [place], [place] [address] [place] [phone] Soheila Zapata P.A.-C., M.S. Atrial Fibrillation Paroxysmal (HCC) (Primary Dx); Hypertensive Heart With Heart Failure And Chronic Kidney Disease (CKD) Stage 3a Glomerular Filtration Rate (GFR) 45 To 59 (HCC); Hyperlipidemia On Treatment; Monitoring For Therapeutic Drug Therapy; Alf (Current) Anticoagulant Treatment 09/02/2023 3:01 PM CDT - 09/02/2023 11:59 PM CDT Hospital Encounter Department of Laboratory Medicine in [address] [phone] Patrick Erickson D.O. Hypertensive Heart With Heart Failure And Chronic Kidney Disease (CKD) Stage 3a Glomerular Filtration Rate (GFR) 45 To 59 (HCC); Hyperlipidemia On Treatment; Atrial Fibrillation Paroxysmal (HCC); Monitoring For Therapeutic Drug Therapy; Alf (Current) Anticoagulant Treatment Discharge Disposition: Home or Self Care 08/27/2023 2:30 PM CDT Anticoagulation Visit Department of Anticoagulation in [address] [phone] Soheila Zapata P.A.-C., M.S. Hypertensive Heart With Heart Failure And Chronic Kidney Disease (CKD) Stage 3a Glomerular Filtration Rate (GFR) 45 To 59 (HCC) (Primary Dx); Hyperlipidemia On Treatment; Atrial Fibrillation Paroxysmal (HCC); Monitoring For Therapeutic Drug Therapy; Alf (Current) Anticoagulant Treatment 08/27/2023 1:50 PM CDT - 08/27/2023 11:59 PM CDT Hospital Encounter Department of Laboratory Medicine in [address] [phone] Patrick Erickson D.O. 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 Hypertensive Heart With Heart Failure And Chronic Kidney Disease (CKD) Stage 3a Glomerular Filtration Rate (GFR) 45 To 59 (HCC); Hyperlipidemia On Treatment; Atrial Fibrillation Paroxysmal (HCC); Monitoring For Therapeutic Drug Therapy; Alf (Current) Anticoagulant Treatment Discharge Disposition: Home or Self Care 08/17/2023 3:50 PM CDT Anticoagulation Visit Department of Anticoagulation in [place], [place] [address] [place] [phone] Soheila Zapata P.A.-C., M.S. 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 Anticoagulation (INR OOR) 08/16/2023 1:24 PM CDT - 08/16/2023 11:59 PM CDT Hospital Encounter Department of Laboratory Medicine in [address] [address] Patrick Erickson D.O. 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 Hypertensive Heart With Heart Failure And Chronic Kidney Disease (CKD) Stage 3a Glomerular Filtration Rate (GFR) 45 To 59 (HCC) (Primary Dx); Hyperlipidemia On Treatment; Atrial Fibrillation Paroxysmal (HCC); Monitoring For Therapeutic Drug Therapy; Alf (Current) Anticoagulant Treatment 08/05/2023 Clinical Communication Department of Anticoagulation in [place], [place] [address] [place] [address] Isa Callahan R.N. Anticoagulation (Unable to reach ) 08/05/2023 2:36 PM CDT - 08/05/2023 11:59 PM CDT Hospital Encounter Department of Laboratory Medicine in [place], [place] [address] [address] Patrick Erickson D.O. 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 Atrial Fibrillation Paroxysmal (HCC); Hypertensive Heart With Heart Failure And Chronic Kidney Disease (CKD) Stage 3a Glomerular Filtration Rate (GFR) 45 To 59 (HCC); Screening Examination Diabetes Mellitus; Hyperlipidemia On Treatment Discharge Disposition: Home or Self Care 07/06/2023 9:00 AM CDT Anticoagulation Visit Department of Anticoagulation in [place], [place] [address] [place] [address] Soheila Zapata P.A.-C., M.S. 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 07/02/2023 10:15 AM CDT Nurse Only Department of Family Medicine, [facility], in [address] [phone] Patrick Erickson D.O. McHugh, Wendy A, L.P.N. Nurse Visit (BP check ) 06/24/2023 8:00 AM CDT Anticoagulation Visit Department of Anticoagulation in [place], [place] [address] [place] [phone] Patrick Erickson D.O. Hypertensive Heart With Heart Failure And Chronic Kidney Disease (CKD) Stage 3a Glomerular Filtration Rate (GFR) 45 To 59 (HCC) (Primary Dx); Atrial Fibrillation Paroxysmal (HCC); Hyperlipidemia On Treatment; Monitoring For Therapeutic Drug Therapy; Alf (Current) Anticoagulant Treatment 06/23/2023 Refill Department of Cardiovascular Diseases in [place], [place] [address] [place] [phone] Roberto Dumont, CUFF SETTER LOCKSTITCH, C.N.P. Med Refill 06/22/2023 Clinical Communication Department of Anticoagulation in [place] [address] [place] [address] Grace Oneill R.N. Anticoagulation (Unable to Reach) 06/22/2023 9:58 AM CDT - 06/22/2023 11:59 PM CDT Hospital Encounter Department of Laboratory Medicine in [address] [address] Soheila Zapata P.A.-C., M.S. 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 Atrial Fibrillation Unspecified (HCC) Discharge Disposition: Home or Self Care 06/22/2023 1:00 PM CDT Office Visit Department of Internal Medicine in [address] [phone] Patrick Erickson D.O. 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) Anticoagulant Treatment; Monitoring For Therapeutic Drug Therapy; Hypertensive Heart With Heart Failure And Chronic Kidney Disease (CKD) Stage 3a Glomerular Filtration Rate (GFR) 45 To 59 (HCC); Hyperlipidemia On Treatment; Screening Examination Diabetes Mellitus 06/18/2023 Clinical Communication Department of Anticoagulation in [place], [place] [address] [place] [address] Sandar De Oliveira Anticoagulation (Unable to reach) 06/03/2023 12:50 PM CDT - 06/03/2023 11:59 PM CDT Hospital Encounter Department of Laboratory Medicine in [address] [address] Hellweg, Patrick J, D.O. 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 Hypertensive Heart With Heart Failure And Chronic Kidney Disease (CKD) Stage 3a Glomerular Filtration Rate (GFR) 45 To 59 (HCC) (Primary Dx); Hyperlipidemia On Treatment; Atrial Fibrillation Paroxysmal (HCC); Monitoring For Therapeutic Drug Therapy; Alf (Current) Anticoagulant Treatment 05/27/2023 11:10 AM CDT Anticoagulation Visit Department of Anticoagulation in [place], [place] [address] [place] [address] Soheila Zapata P.A.-C., M.S. 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 Hypertensive Heart With Heart Failure And Chronic Kidney Disease (CKD) Stage 3a Glomerular Filtration Rate (GFR) 45 To 59 (HCC); Hyperlipidemia On Treatment; Atrial Fibrillation Paroxysmal (HCC); Monitoring For Therapeutic Drug Therapy; Alf (Current) Anticoagulant Treatment Discharge Disposition: Home or Self Care 05/21/2023 2:40 PM CDT - 05/21/2023 11:59 PM CDT Hospital Encounter Department of Laboratory Medicine in [place], [place] [address], [place] [address] Patrick Erickson D.O. Atrial Fibrillation Paroxysmal (HCC) Discharge Disposition: Home or Self Care 05/21/2023 3:20 PM CDT Anticoagulation Visit Department of Anticoagulation in [place], [place] [address] [place] [phone] Soheila Zapata P.A.-C., M.S. 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 Patrick Erickson D.O. 05/07/2023 12:25 PM MANAGER CATH LAB - 05/07/2023 11:59 PM MANAGER CATH LAB Hospital Encounter Department of Laboratory Medicine in [place], [place] [address] [address] Patrick Erickson D.O. 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 Med Refill 04/28/2023 Refill Department of Internal Medicine in [address] [address] Anna Iniguez APRN, C.N.P., D.N.P. Med Refill 04/27/2023 11:20 AM MANAGER CATH LAB Office Visit Department of Internal Medicine in [address] [phone] Anna Iniguez APRN, C.N.P., D.N.P. 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 Med Refill 04/02/2023 2:38 PM MANAGER CATH LAB - 04/02/2023 11:59 PM MANAGER CATH LAB Hospital Encounter Department of Laboratory Medicine in [address] [address] Patrick Erickson D.O. 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 Hypertensive Heart With Heart Failure And Chronic Kidney Disease (CKD) Stage 3a Glomerular Filtration Rate (GFR) 45 To 59 (HCC) (Primary Dx); Hyperlipidemia On Treatment; Atrial Fibrillation Paroxysmal (HCC); Monitoring For Therapeutic Drug Therapy; Alf (Current) Anticoagulant Treatment 03/19/2023 4:10 PM MANAGER CATH LAB Anticoagulation Visit Department of Anticoagulation in [place], [place] [address] [place] [phone] Soheila Zapata P.A.-Ashish., M.S. 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 Urinary Symptom 03/12/2023 2:50 PM MANAGER CATH LAB - 03/12/2023 11:59 PM MANAGER CATH LAB Hospital Encounter Department of Laboratory Medicine in [address] [address] Patrick Erickson D.O. Atrial Fibrillation Paroxysmal (HCC); Monitoring For Therapeutic Drug Therapy; Alf (Current) Anticoagulant Treatment Discharge Disposition: Home or Self Care 03/12/2023 4:20 PM MANAGER CATH LAB Anticoagulation Visit Department of Anticoagulation in [place], [place] [address] [place] [phone] Soheila Zapata P.A.-C., M.S. 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 Atrial Fibrillation Paroxysmal (HCC); Monitoring For Therapeutic Drug Therapy; Alf (Current) Anticoagulant Treatment Discharge Disposition: Home or Self Care 03/05/2023 4:00 PM MANAGER CATH LAB Anticoagulation Visit Department of Anticoagulation in [place], [place] [address] [place] [phone] Soheila Zapata P.A.-C., M.S. 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 Atrial Fibrillation Paroxysmal (HCC); Monitoring For Therapeutic Drug Therapy; Alf (Current) Anticoagulant Treatment Discharge Disposition: Home or Self Care 02/24/2023 Clinical Communication Department of Family Medicine, [facility] in [place], [place] [address] [place] [address] Medina Langston R.N. COVID Treatment Review; Error 02/24/2023 Nurse Triage Department of Internal Medicine in [place], [place] [address], [place] [address] Sandra Maravilla R.N. COVID Nurse Line (/) 02/22/2023 Nurse Triage Department of Internal Medicine in [place], [place] [address] [place] [address] Trish Smith R.N. Cough 02/16/2023 9:20 AM MANAGER CATH LAB - 02/16/2023 11:59 PM MANAGER CATH LAB Hospital Encounter Department of Laboratory Medicine in [place], [place] [address] [place] [address] Patrick Erickson D.O. Atrial Fibrillation Paroxysmal (HCC); Monitoring For Therapeutic Drug Therapy; Alf (Current) Anticoagulant Treatment Discharge Disposition: Home or Self Care 02/16/2023 10:00 AM MANAGER CATH LAB Anticoagulation Visit Department of Anticoagulation in [place], [place] [address] [place] [phone] Soheila Zapata P.A.-C., M.S. 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 02/02/2023 12:30 PM MANAGER CATH LAB Anticoagulation Visit Department of Anticoagulation in [place], [place] [address] [place] [phone] Soheila Zapata P.A.-C., M.S. 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 Atrial Fibrillation Paroxysmal (HCC) (Primary Dx); Monitoring For Therapeutic Drug Therapy; Alf (Current) Anticoagulant Treatment 01/26/2023 9:20 AM MANAGER CATH LAB - 01/26/2023 11:59 PM MANAGER CATH LAB Hospital Encounter Department of Laboratory Medicine in [address] [address] Patrick Erickson D.O. Atrial Fibrillation Paroxysmal (HCC); Monitoring For Therapeutic Drug Therapy; Alf (Current) Anticoagulant Treatment Discharge Disposition: Home or Self Care 01/14/2023 Clinical Communication Department of Spine in [place], [place] [address] [place] [phone] Sirisha Valentino Follow-up ([facility] is calling to complete your 1-year follow-up PROMIS-CAT questionnaires. You will receive questionnaires at different timepoints in the future. You can complete the current questionnaires in your portal and no return call is necessary. If you have any questions, please call us at: [phone]. Thank you! / ) 12/15/2022 12:00 PM CDT Anticoagulation Visit Department of Anticoagulation in [place], [place] [address] [place] [address] Soheila Zapata P.A.-C., M.S. 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 Atrial Fibrillation Paroxysmal (HCC); Monitoring For Therapeutic Drug Therapy; Alf (Current) Anticoagulant Treatment Discharge Disposition: Home or Self Care 11/17/2022 3:10 PM CDT Anticoagulation Visit Department of Anticoagulation in [place], [place] [address] [place] [phone] Soheila Zapata P.A.-C., M.S. 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 Atrial Fibrillation Paroxysmal (HCC); Monitoring For Therapeutic Drug Therapy; Alf (Current) Anticoagulant Treatment Discharge Disposition: Home or Self Care 11/10/2022 12:40 PM CDT Anticoagulation Visit Department of Anticoagulation in [place], [place] [address] [place] [phone] Soheila Zapata P.A.-C., M.S. Atrial Fibrillation Paroxysmal (HCC) (Primary Dx); Monitoring For Therapeutic Drug Therapy; Alf (Current) Anticoagulant Treatment 11/04/2022 12:33 PM CDT - 11/04/2022 11:59 PM CDT Hospital Encounter Department of Laboratory Medicine in [address] [address] Patrick Erickson D.O. Atrial Fibrillation Paroxysmal (HCC); Monitoring For Therapeutic Drug Therapy; Alf (Current) Anticoagulant Treatment Discharge Disposition: Home or Self Care 11/04/2022 2:30 PM CDT Anticoagulation Visit Department of Anticoagulation in [place], [place] [address] [place] [phone] Soheila Zapata P.A.-C., M.S. Atrial Fibrillation Paroxysmal (HCC) (Primary Dx); Monitoring For Therapeutic Drug Therapy; Alf (Current) Anticoagulant Treatment 10/28/2022 8:00 AM CDT Anticoagulation Visit Department of Anticoagulation in [place], [place] [address] [place] [phone] Patrick Erickson D.O. 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 Anticoagulation (Unable to reach ) 10/27/2022 11:16 AM CDT - 10/27/2022 11:59 PM CDT Hospital Encounter Department of Laboratory Medicine in [address] [phone] Patrick Erickson D.O. 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 Anticoagulation (CCM-Enrollment) 10/12/2022 Orders Only Department of Internal Medicine in [address] [phone] Soheila Zapata P.A.-C., M.S. 10/12/2022 9:20 AM CDT - 10/12/2022 11:59 PM CDT Hospital Encounter Department of Laboratory Medicine in [address] [address] Patrick Erickson D.O. 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 Atrial Fibrillation Paroxysmal (HCC) (Primary Dx); Alf (Current) Anticoagulant Treatment; Monitoring For Therapeutic Drug Therapy 10/02/2022 8:00 AM CDT Anticoagulation Visit Department of Anticoagulation in [place], [place] [address] [place] [phone] Patrick Erickson D.O. 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 Anticoagulation 10/01/2022 8:50 AM CDT - 10/01/2022 11:59 PM CDT Hospital Encounter Department of Laboratory Medicine in [address] [phone] Patrick Erickson D.O. Atrial Fibrillation Paroxysmal (HCC); Monitoring For Therapeutic Drug Therapy; Alf (Current) Anticoagulant Treatment Discharge Disposition: Home or Self Care 09/17/2022 Orders Only Department of Internal Medicine in [place], [place] [address] [place] [address] Soheila Zapata P.A.-C., M.S. Hypertensive Heart With Heart Failure And Chronic Kidney Disease (CKD) Stage 3a Glomerular Filtration Rate (GFR) 45 To 59 (HCC) (Primary Dx) 09/17/2022 11:16 AM CDT - 09/17/2022 11:59 PM CDT Hospital Encounter Department of Laboratory Medicine in [address] [address] Patrick Erickson D.O. Monitoring For Therapeutic Drug Therapy Discharge Disposition: Home or Self Care 09/17/2022 10:20 AM CDT - 09/17/2022 11:15 AM CDT Hospital Encounter Department of Laboratory Medicine in [address] [phone] Patrick Erickson D.O. Atrial Fibrillation Paroxysmal (HCC); Monitoring For Therapeutic Drug Therapy Discharge Disposition: Home or Self Care 09/17/2022 11:00 AM CDT Anticoagulation Visit Department of Anticoagulation in [place], [place] [address] [place] [address] Soheila Zapata P.A.-Ashish., M.S. 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 Atrial Fibrillation Paroxysmal (HCC) (Primary Dx); Monitoring For Therapeutic Drug Therapy; Alf (Current) Anticoagulant Treatment 09/01/2022 1:00 PM CDT Office Visit Department of Cardiovascular Diseases in [place], [place] [address], [place] [address] Roberto Dumont APRN, C.N.P. 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 Laceration Blood Vessel Left Index Finger Sequela (Primary Dx) 08/12/2022 Orders Only [facility] PCP [facility] Patrick Erickson D.O. Monitoring For Therapeutic Drug Therapy 08/10/2022 11:11 AM CDT - 08/10/2022 11:59 PM CDT Hospital Encounter Department of Laboratory Medicine in [address] [address] Soheila Zapata P.A.-C., M.S. 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 Atrial Fibrillation Unspecified (HCC) (Primary Dx); Monitoring For Therapeutic Drug Therapy; Alf (Current) Anticoagulant Treatment 08/07/2022 Clinical Communication Department of Anticoagulation in [place], [place] [address] [place] [phone] Lois Vidal R.N. Anticoagulation 07/27/2022 3:20 PM CDT Anticoagulation Visit Department of Anticoagulation in [place], [place] [address] [place] [phone] Soheila Zapata P.A.-C., M.S. Atrial Fibrillation Unspecified (HCC) (Primary Dx); Monitoring For Therapeutic Drug Therapy; Alf (Current) Anticoagulant Treatment 07/27/2022 2:20 PM CDT - 07/27/2022 11:59 PM CDT Hospital Encounter Department of Laboratory Medicine in [address] [address] Soheila Zapata P.A.-C., M.S. Atrial Fibrillation Unspecified (HCC); Monitoring For Therapeutic Drug Therapy; Alf (Current) Anticoagulant Treatment Discharge Disposition: Home or Self Care 06/29/2022 10:12 AM CDT - 06/29/2022 11:59 PM CDT Hospital Encounter Department of Laboratory Medicine in [address] [address] Soheila Zapata P.A.-C., M.S. Atrial Fibrillation Unspecified; Monitoring For Therapeutic Drug Therapy; Alf (Current) Anticoagulant Treatment Discharge Disposition: Home or Self Care 06/29/2022 11:00 AM CDT Anticoagulation Visit Department of Anticoagulation in [address] [address] Soheila Zapata P.A.-C., M.S. Atrial Fibrillation Unspecified (Primary Dx); Monitoring For Therapeutic Drug Therapy; Alf (Current) Anticoagulant Treatment 06/19/2022 9:50 AM CDT - 06/19/2022 11:59 PM CDT Hospital Encounter Department of Laboratory Medicine in [address] [address] Soheila Zapata P.A.-C., M.S. 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 Atrial Fibrillation Unspecified (Primary Dx); Monitoring For Therapeutic Drug Therapy; 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) Anticoagulant Treatment 06/15/2022 9:50 AM CDT - 06/15/2022 11:59 PM CDT Hospital Encounter Department of Laboratory Medicine in [place], [place] [address] [place] [address] Soheila Zapata P.A.-C., M.S. Atrial Fibrillation Unspecified; Monitoring For Therapeutic Drug Therapy; 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) Anticoagulant Treatment Discharge Disposition: Home or Self Care 06/15/2022 10:30 AM CDT Anticoagulation Visit Department of Anticoagulation in [place], [place] [address] [place] [address] Soheila Zapata P.Genie.-C., M.S. Atrial Fibrillation Unspecified (Primary Dx); Monitoring For Therapeutic Drug Therapy; 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) Anticoagulant Treatment 06/09/2022 9:50 AM CDT - 06/09/2022 11:59 PM CDT Hospital Encounter Department of Laboratory Medicine in [place], [place] [address] [place] [address] Sohelia Zapata P.A.-C., M.S. Atrial Fibrillation Unspecified; Monitoring For Therapeutic Drug Therapy; Alf (Current) Anticoagulant Treatment Discharge Disposition: Home or Self Care 06/09/2022 10:30 AM CDT Anticoagulation Visit Department of Anticoagulation in [place], [place] [address] [place] [address] Soheila Zapata P.A.-C., M.S. Atrial Fibrillation Unspecified (Primary Dx); Monitoring For Therapeutic Drug Therapy; 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) Anticoagulant Treatment 06/03/2022 9:45 AM CDT Office Visit Department of Cardiovascular Diseases in [place], [place] [address], [place] [address] Roberto Dumont, BALTAZAR, C.N.P. 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 Deficiency Estrogen Post Menopausal 05/12/2022 9:20 AM MANAGER CATH LAB - 05/12/2022 11:59 PM MANAGER CATH LAB Hospital Encounter Department of Laboratory Medicine in [address] [phone] Soheila Zapata P.A.-C., M.S. Atrial Fibrillation Unspecified; Monitoring For Therapeutic Drug Therapy; Alf (Current) Anticoagulant Treatment Discharge Disposition: Home or Self Care 05/12/2022 10:00 AM MANAGER CATH LAB Anticoagulation Visit Department of Anticoagulation in [address] [address] Soheila Zapata P.A.-C., M.S. Atrial Fibrillation Unspecified (Primary Dx); Monitoring For Therapeutic Drug Therapy; 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) Anticoagulant Treatment 04/29/2022 8:00 AM MANAGER CATH LAB Anticoagulation Visit Department of Anticoagulation in [place], [place] [address] [place] [phone] Soheila Zapata P.A.-C., M.S. Atrial Fibrillation Unspecified (Primary Dx); Monitoring For Therapeutic Drug Therapy; 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) Anticoagulant Treatment 04/28/2022 Clinical Communication Department of Anticoagulation in [place], [place] [address] [place] [phone] Hemalatha Lewis, RAziza 04/28/2022 2:42 PM MANAGER CATH LAB - 04/28/2022 11:59 PM MANAGER CATH LAB Hospital Encounter Department of Laboratory Medicine in [place], [place] [address] [place] [address] Soheila Zapata P.A.-C., M.S. Atrial Fibrillation Unspecified; Monitoring For Therapeutic Drug Therapy; 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) Anticoagulant Treatment Discharge Disposition: Home or Self Care 04/21/2022 10:25 AM MANAGER CATH LAB - 04/21/2022 11:59 PM MANAGER CATH LAB Hospital Encounter Department of Laboratory Medicine in [place], [place] [address] [place] [address] Roberto Dumont APRN, C.N.P. Atrial Fibrillation Unspecified Discharge Disposition: Home or Self Care 04/21/2022 9:50 AM MANAGER CATH LAB - 04/21/2022 10:24 AM MANAGER CATH LAB Hospital Encounter Department of Laboratory Medicine in [place], [place] [address] [place] [address] Soheila Zapata P.A.CandidoC., M.S. Atrial Fibrillation Unspecified; Monitoring For Therapeutic Drug Therapy; Alf (Current) Anticoagulant Treatment Discharge Disposition: Home or Self Care 04/21/2022 10:30 AM MANAGER CATH LAB Anticoagulation Visit Department of Anticoagulation in [place], [place] [address] [place] [address] Soheila Zapata P.Genie.-C., M.S. Atrial Fibrillation Unspecified (Primary Dx); Monitoring For Therapeutic Drug Therapy; 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) Anticoagulant Treatment 04/16/2022 Orders Only Department of Cardiovascular Diseases in [place], [place] [address] [place] [phone] Roberto Dumont, BALTAZAR, C.N.P. 04/15/2022 Refill Department of Internal Medicine in [place], [place] [address] [place] [phone] Soheila Zapata P.A.-C., M.S. Med Refill 04/15/2022 Refill Department of Internal Medicine in [place], [place] [address] [place] [phone] Addie De La Garza M.D. Med Refill 04/10/2022 Refill Department of Internal Medicine in [place], [place] [address] [place] [phone] Soheila Zapata P.A.-C., M.S. Med Refill 04/07/2022 10:10 AM MANAGER CATH LAB - 04/07/2022 10:17 AM MANAGER CATH LAB Hospital Encounter Department of Laboratory Medicine in [address] [phone] Soheila Zapata P.A.-C., M.S. Atrial Fibrillation Unspecified; Monitoring For Therapeutic Drug Therapy; Alf (Current) Anticoagulant Treatment Discharge Disposition: Home or Self Care 04/07/2022 10:50 AM MANAGER CATH LAB Anticoagulation Visit Department of Anticoagulation in [place], [place] [address] [place] [phone] Soheila Zapata P.A.-C., M.S. Atrial Fibrillation Unspecified (Primary Dx); Monitoring For Therapeutic Drug Therapy; Alf (Current) Anticoagulant Treatment 04/07/2022 10:18 AM MANAGER CATH LAB - 04/07/2022 11:59 PM MANAGER CATH LAB Hospital Encounter Department of Cardiovascular Diseases in [address] [phone] Roberto Dumont APRN, C.N.P. Atrial Fibrillation Other Persistent (HCC) Discharge Disposition: Home or Self Care 03/31/2022 Clinical Communication Department of Internal Medicine in [address] [phone] Soheila Zapata P.A.-C., M.S. 03/31/2022 Nurse Triage Department of Internal Medicine in [address] [phone] Tammy Ramos M.S.N., R.N. Eye Problem 03/31/2022 12:30 PM MANAGER CATH LAB Anticoagulation Visit Department of Anticoagulation in [place], [place] [address] [place] [phone] Soheila Zapata P.A.-C., M.S. Atrial Fibrillation Unspecified (Primary Dx); Monitoring For Therapeutic Drug Therapy; 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) Anticoagulant Treatment 03/31/2022 11:50 AM MANAGER CATH LAB - 03/31/2022 11:59 PM MANAGER CATH LAB Hospital Encounter Department of Laboratory Medicine in [address] [phone] Soheila Zapata P.A.-C., M.S. Atrial Fibrillation Unspecified; Monitoring For Therapeutic Drug Therapy; 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) Anticoagulant Treatment Discharge Disposition: Home or Self Care 03/27/2022 Clinical Communication Department of Anticoagulation in [address] [phone] Alesha Gonzalez R.N. Anticoagulation 03/24/2022 1:30 PM MANAGER CATH LAB Anticoagulation Visit Department of Anticoagulation in [address] [address] Soheila Zapata P.A.-C., M.S. Atrial Fibrillation Unspecified (Primary Dx); Monitoring For Therapeutic Drug Therapy; Alf (Current) Anticoagulant Treatment 03/24/2022 12:44 PM MANAGER CATH LAB - 03/24/2022 11:59 PM MANAGER CATH LAB Hospital Encounter Department of Laboratory Medicine in [address] [address] Soheila Zapata P.A.-C., M.S. Atrial Fibrillation Unspecified; Monitoring For Therapeutic Drug Therapy; 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) Anticoagulant Treatment Discharge Disposition: Home or Self Care 03/16/2022 10:30 AM MANAGER CATH LAB Anticoagulation Visit Department of Anticoagulation in [address] [address] Soheila Zapata P.A.-C., M.S. Atrial Fibrillation Unspecified (Primary Dx); Monitoring For Therapeutic Drug Therapy; Alf (Current) Anticoagulant Treatment 03/16/2022 9:50 AM MANAGER CATH LAB - 03/16/2022 11:59 PM MANAGER CATH LAB Hospital Encounter Department of Laboratory Medicine in [address] [address] Soheila Zapata P.A.-C., M.S. Atrial Fibrillation Unspecified; Monitoring For Therapeutic Drug Therapy; Alf (Current) Anticoagulant Treatment Discharge Disposition: Home or Self Care 03/06/2022 10:50 AM MANAGER CATH LAB - 03/06/2022 11:59 PM MANAGER CATH LAB Hospital Encounter Department of Laboratory Medicine in [address] [address] Soheila Zapata P.A.-C., M.S. Atrial Fibrillation Unspecified; Monitoring For Therapeutic Drug Therapy; 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) Anticoagulant Treatment Discharge Disposition: Home or Self Care 03/06/2022 11:40 AM MANAGER CATH LAB Anticoagulation Visit Department of Anticoagulation in [address] [address] Soheila Zapata P.A.-C., M.S. Atrial Fibrillation Unspecified (Primary Dx); Monitoring For Therapeutic Drug Therapy; Alf (Current) Anticoagulant Treatment 02/20/2022 10:50 AM MANAGER CATH LAB - 02/20/2022 11:59 PM MANAGER CATH LAB Hospital Encounter Department of Laboratory Medicine in [address] [address] Soheila Zapata P.A.-C., M.S. Atrial Fibrillation Unspecified; Monitoring For Therapeutic Drug Therapy; 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) Anticoagulant Treatment Discharge Disposition: Home or Self Care 02/20/2022 11:30 AM MANAGER CATH LAB Anticoagulation Visit Department of Anticoagulation in [place], [place] [address] [place] [phone] Soheila Zapata P.Genie.-C., M.S. Atrial Fibrillation Unspecified (Primary Dx); Monitoring For Therapeutic Drug Therapy; Alf (Current) Anticoagulant Treatment 02/13/2022 11:20 AM MANAGER CATH LAB - 02/13/2022 11:59 PM MANAGER CATH LAB Hospital Encounter Department of Laboratory Medicine in [address] [address] Soheila Zapata P.A.-C., M.S. Atrial Fibrillation Unspecified; Monitoring For Therapeutic Drug Therapy; 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) Anticoagulant Treatment Discharge Disposition: Home or Self Care 02/13/2022 12:00 PM MANAGER CATH LAB Anticoagulation Visit Department of Anticoagulation in [place], [place] [address] [place] [phone] Soheila Zapata P.A.-C., M.S. Atrial Fibrillation Unspecified (Primary Dx); Monitoring For Therapeutic Drug Therapy; 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) Anticoagulant Treatment 02/09/2022 8:00 AM MANAGER CATH LAB Anticoagulation Visit Department of Anticoagulation in [place], [place] [address] [place] [phone] Soheila Zapata P.A.-C., M.S. Atrial Fibrillation Unspecified (Primary Dx); Monitoring For Therapeutic Drug Therapy; 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) Anticoagulant Treatment 02/06/2022 Clinical Communication Department of Anticoagulation in [place], [place] [address] [place] [phone] Trish Chambers R.N. Anticoagulation (Unable to reach ) 02/06/2022 2:40 PM MANAGER CATH LAB - 02/06/2022 11:59 PM MANAGER CATH LAB Hospital Encounter Department of Laboratory Medicine in [address] [address] Soheila Zapata P.A.-C., M.S. Atrial Fibrillation Unspecified; Monitoring For Therapeutic Drug Therapy; 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) Anticoagulant Treatment Discharge Disposition: Home or Self Care 02/03/2022 1:00 PM MANAGER CATH LAB Virtual Visit Department of Patient Education in [address] [phone] Soheila Zapata P.A.-C., M.S. Genesis Hooper, M.S. Atrial Fibrillation Unspecified; Monitoring For Therapeutic Drug Therapy; Alf (Current) Anticoagulant Treatment 02/02/2022 12:50 PM MANAGER CATH LAB Anticoagulation Visit Department of Anticoagulation in [place], [place] [address] [place] [phone] Soheila Zapata P.A.-C., M.S. Atrial Fibrillation Unspecified (Primary Dx); Monitoring For Therapeutic Drug Therapy; Alf (Current) Anticoagulant Treatment 02/02/2022 12:06 PM MANAGER CATH LAB - 02/02/2022 11:59 PM MANAGER CATH LAB Hospital Encounter Department of Laboratory Medicine in [place] [address] [address] Soheila Zapata P.A.-C., M.S. Atrial Fibrillation Unspecified; Monitoring For Therapeutic Drug Therapy; Alf (Current) Anticoagulant Treatment Discharge Disposition: Home or Self Care 01/23/2022 3:40 PM MANAGER CATH LAB - 01/23/2022 11:59 PM MANAGER CATH LAB Hospital Encounter Department of Laboratory Medicine in [place], [place] [address] [phone] Soheila Zapata P.A.-C., M.S. Atrial Fibrillation Unspecified; Monitoring For Therapeutic Drug Therapy; 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) Anticoagulant Treatment Discharge Disposition: Home or Self Care 01/23/2022 4:20 PM MANAGER CATH LAB Anticoagulation Visit Department of Anticoagulation in [place], [place] [address] [place] [phone] Soheila Zapata P.A.-C., M.S. Atrial Fibrillation Unspecified (Primary Dx); Monitoring For Therapeutic Drug Therapy; 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) Anticoagulant Treatment 01/20/2022 Clinical Communication Department of Anticoagulation in [place], [place] [address] [place] [phone] Iris Singh Anticoagulation (Unable to reach ) 01/16/2022 10:50 AM MANAGER CATH LAB Anticoagulation Visit Department of Anticoagulation in [place], [place] [address] [place] [phone] Soheila Zapata P.A.-C., M.S. Atrial Fibrillation Unspecified (Primary Dx); Monitoring For Therapeutic Drug Therapy; 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) Anticoagulant Treatment 01/15/2022 Clinical Communication Department of Anticoagulation in [place], [place] [address] [place] [phone] Angela Shukla R.N. Anticoagulation (Unable to reach) 01/15/2022 11:20 AM MANAGER CATH LAB - 01/15/2022 11:59 PM MANAGER CATH LAB Hospital Encounter Department of Laboratory Medicine in [address] [phone] Soheila Zapata P.A.-C., M.S. Atrial Fibrillation Unspecified; Monitoring For Therapeutic Drug Therapy; Alf (Current) Anticoagulant Treatment Discharge Disposition: Home or Self Care 01/14/2022 11:30 AM MANAGER CATH LAB Office Visit Department of Physical Medicine and Rehabilitation in [place], [place] [address] [place] [phone] Eder Torres M.D. 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 Atrial Fibrillation Unspecified (Primary Dx); Monitoring For Therapeutic Drug Therapy; Alf (Current) Anticoagulant Treatment 01/12/2022 1:40 PM MANAGER CATH LAB - 01/12/2022 11:59 PM MANAGER CATH LAB Hospital Encounter Department of Laboratory Medicine in [place], [place] [address] [place] [phone] Soheila Zapata P.A.-C., M.S. Atrial Fibrillation Unspecified; Monitoring For Therapeutic Drug Therapy; Alf (Current) Anticoagulant Treatment Discharge Disposition: Home or Self Care 01/07/2022 Clinical Communication Department of Anticoagulation in [address] [phone] Soham Chino, R.N. Anticoagulation (Welcome call) 01/06/2022 Orders Only Department of Anticoagulation in [place], [place] [address] [place] [phone] Soham Chino, R.N. Atrial Fibrillation Unspecified (Primary Dx); 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) Anticoagulant Treatment 12/30/2021 2:09 PM CDT - 12/30/2021 11:59 PM CDT Hospital Encounter Department of Laboratory Medicine in [place], [place] [address] [phone] Roberto Dumont APRN, C.N.P. Cardiomyopathy Dilated (HCC); Irregular Pulse Discharge Disposition: Home or Self Care 12/30/2021 3:00 PM CDT Nurse Only Department of Family Medicine, [facility], in [address] [phone] Soheila Zapata P.A.-C., Nga Chaves, LHowiePHowieNHowie Nurse Visit (BP check with home device validation) 12/30/2021 1:30 PM CDT Office Visit Department of Cardiovascular Diseases in [address] [phone] Roberto Dumont APRN, C.N.P. Cardiomyopathy Dilated (HCC) (Primary Dx); Irregular Pulse; Hypertensive Heart With Heart Failure And Chronic Kidney Disease (CKD) Stage 3a Glomerular Filtration Rate (GFR) 45 To 59 (HCC); Atrial Fibrillation Other Persistent (HCC) 12/25/2021 2:25 PM CDT - 12/25/2021 4:01 PM CDT Hospital Encounter Department of Radiology in [address] [address] Eder Torres M.D. Lumbago With Sciatica Left Side; Spondylolysis Lumbar Region Discharge Disposition: Home or Self Care 12/17/2021 2:00 PM CDT Comprehensive Visit Department of Physical Medicine and Rehabilitation in [address] [phone] Eder Torres M.D. Spondylolysis Lumbar Region (Primary Dx); Lumbago With Sciatica Left Side; Spinal Stenosis Lumbar Region Without Neurogenic Claudication 12/14/2021 Refill Department of Internal Medicine in [address] [phone] Addie De La Garza M.D. Med Refill 12/10/2021 Orders Only Department of Internal Medicine in [address] [phone] Soheila Zapata P.A.-C., M.S. Screening Colon Cancer Average Risk 12/09/2021 2:00 PM CDT Office Visit Department of Internal Medicine in [address] [phone] Soheila Zapata P.A.-C., M.S. Radiculopathy Sacral (Primary Dx); Radiculopathy Lumbar Fifth Left; Cardiomyopathy Dilated (HCC); Hypertensive Heart With Heart Failure And Chronic Kidney Disease (CKD) Stage 3a Glomerular Filtration Rate (GFR) 45 To 59 (HCC); Screening Colon Cancer Average Risk; Pain Foot Left 12/09/2021 2:45 PM CDT - 12/09/2021 11:59 PM CDT Hospital Encounter Department of Radiology in [address] [phone] Soheila Zapata P.A.-C., M.S. Maintenance Health Adult Discharge Disposition: Home or Self Care 11/18/2021 Clinical Communication Department of Internal Medicine in [address] [phone] Soheila Zapata P.A.-C., M.S. Pain 11/06/2021 2:35 PM CDT - 11/06/2021 11:59 PM CDT Hospital Encounter Department of Laboratory Medicine in [address] [phone] Soheila Zapata P.A.-C., M.S. Hypertensive Chronic Kidney Disease (CKD) Stage 3a Glomerular Filtration Rate (GFR) 45 To 59 (HCC); Hyperlipidemia On Treatment; Maintenance Health Adult; Screening Examination Diabetes Mellitus Discharge Disposition: Home or Self Care 11/06/2021 1:30 PM CDT Office Visit Department of Internal Medicine in [address] [address] Soheila Zapata P.A.-C., M.S. Radiculopathy Lumbar Fifth Left (Primary Dx); Radiculopathy Sacral; Cardiomyopathy Dilated (HCC); Hypertensive Chronic Kidney Disease (CKD) Stage 3a Glomerular Filtration Rate (GFR) 45 To 59 (HCC); Hyperlipidemia On Treatment; Screening Examination Diabetes Mellitus; Maintenance Health Adult 11/04/2021 9:30 AM CDT Office Visit Department of Internal Medicine in [address] [phone] Stevan Bhakta D.O. Procedure And Treatment Not Carried Out Due To Patient Leaving Prior To Being Seen By Health Care Provider (Primary Dx) 10/16/2021 Clinical Communication Department of Internal Medicine in [address] [phone] Ermelinda Valle M.D. 10/16/2021 Clinical Communication Department of Internal Medicine in [address] [phone] Addie De La Garza M.D. Gardner referal 09/26/2021 Clinical Communication Department of Internal Medicine in [address] [phone] Stevan Bhakta D.O. Form Review ([facility] PT - 09/25/21) 09/17/2021 Clinical Communication Department of Internal Medicine in [address] [address] Ermelinda Valle M.D. 08/21/2021 Clinical Communication Department of Internal Medicine in [address] [address] Stevan Bhakta D.O. Form Review ([place]) 08/19/2021 9:45 AM CDT Office Visit Department of Internal Medicine in [address] [address] Ermelinda Valle M.D. Lumbago With Sciatica Left Side (Primary Dx) 08/15/2021 Clinical Communication Department of Internal Medicine in [place], [place] [address], [place] [address] Stevan Bhakta, D.O. 08/12/2021 Orders Only [facility] Ermelinda Kay M.D. Deficiency Estrogen Post Menopausal 07/23/2021 Orders Only [facility] SEMN PCP [facility] Stevan Bhakta, D.O. 06/26/2021 2:30 PM CDT Office Visit Department of Internal Medicine in [place], [place] [address] [place] [address] Addie De La Garza M.D. Migraine Headache (Primary Dx); Chronic Kidney Disease (CKD), Stage 3 Unspecified (HCC); Hyperlipidemia On Treatment; Rash; Hypertensive Chronic Kidney Disease (CKD) Stage 3a Glomerular Filtration Rate (GFR) 45 To 59 05/07/2021 Orders Only [facility] SEMN PCP [facility] Stevan Bhakta, D.O. Monitoring For Therapeutic Drug Therapy 01/14/2021 Orders Only [facility] PCP [facility] Stevan Bhakta, D.O. Screening Cancer Colon 01/14/2021 Orders Only [facility] SEMN PCP [facility] Padmini nieto, Elliotwa, D.O. Screening Cancer Colon 12/31/2020 Orders Only [facility] Ermelinda Kay M.D. 11/12/[address] [facility] Padmini nieto, Stevan, D.O. Screening Mammogram Breast Cancer; Deficiency Estrogen Post Menopausal 11/04/2020 Clinical Communication Division of On License Of [facility] Internal Medicine, [facility] in [place], [place] [address] [place] [address] Nancy Lovett R.N. COVID Nurse Line 11/04/2020 Clinical Communication Department of Internal Medicine in [address] [address] Stevan Bhakta D.O. COVID Inquiry 08/19/2020 Refill Department of Internal Medicine in [address] [address] Stevan Bhakta D.O. Med Refill 06/19/2020 Clinical Communication Department of Internal Medicine in [address] [address] Stevan Bhakta D.O. 06/06/2020 Clinical Communication Department of Internal Medicine in [address] [address] Butch Velazquez M.D. 05/27/2020 3:17 PM CDT - 05/27/2020 11:59 PM CDT Hospital Encounter Department of Cardiovascular Diseases in [address] [address] Butch Velazquez M.D. Cardiomyopathy Dilated (HCC) Discharge Disposition: Home or Self Care 05/17/2020 10:45 AM MANAGER CATH LAB - 05/17/2020 10:53 AM MANAGER CATH LAB Hospital Encounter Department of Laboratory Medicine in [address] [address] Butch Velazquez M.D. Cardiomyopathy Dilated (HCC) Discharge Disposition: Home or Self Care 05/17/2020 10:54 AM MANAGER CATH LAB - 05/17/2020 11:59 PM MANAGER CATH LAB Hospital Encounter Department of Radiology in [address] [address] Butch Velazquez M.D. Pain Low Back Discharge Disposition: Home or Self Care 05/16/2020 2:00 PM MANAGER CATH LAB Office Visit Department of Internal Medicine in [address] [address] Butch Velazquez M.D. Personal History Of Infectious And Parasitic Disease (COVID-19) (Primary Dx); Radiculopathy Lumbar; Pain Low Back; Cardiomyopathy Dilated (HCC); Chronic Kidney Disease (CKD), Stage 3 Unspecified (HCC) 05/13/2020 Clinical Communication Department of Internal Medicine in [address] [address] Stevan Bhakta D.O. COVID Inquiry 03/14/2020 Orders Only Department of Internal Medicine in [address] [address] Butch Velazquez M.D. 02/12/2020 Orders Only [facility] Stevan Bhakta D.O. Deficiency Estrogen Post Menopausal; Screening Examination Diabetes Mellitus; Monitoring For Therapeutic Drug Therapy 11/27/2019 Clinical Communication Department of Internal Medicine in [address] [address] Stevan Bhakta D.O. Results 11/25/2019 External Outreach Department of Internal Medicine in [place], [place] [address] [place] [phone] Patrick Erickson D.O. Infection Upper Respiratory (Primary Dx) Discharge Disposition: Home or Self Care 11/25/2019 Clinical Communication Division of On License Of [facility] Internal Medicine, [facility] in [place], [place] [address] [place] [address] Medina Rocha R.N. COVID Nurse Line 09/29/2019 Clinical Communication Department of Internal Medicine in [place], [place] [address] [place] [phone] Stevan Bhakta D.O. Results 09/28/2019 External Outreach Department of Internal Medicine in [address] [address] Patrick Erickson D.O. Infection Upper Respiratory (Primary Dx) Discharge Disposition: Home or Self Care 08/23/2019 Orders Only [facility] Screening Mammogram Breast Cancer 12/14/2018 Orders Only [facility] PCP [facility] Stevan Bhakta D.O. Screening Examination Diabetes Mellitus; Monitoring For Therapeutic Drug Therapy 11/09/2018 Refill Department of Cardiovascular Diseases in [address] [phone] Roberto Dumont APRN, C.N.P. Med Refill 10/26/2018 2:30 PM CDT Office Visit Department of Internal Medicine in [address] [address] Butch Velazquez M.D. Neuralgia Post Herpetic (Primary Dx) 09/23/2018 8:30 AM CDT Office Visit Urgent Care in [address] [address] Omi Talbot P.A.-Darryl, P.A. Herpes Zoster (Primary Dx); Insect Bite Nonvenomous Abdominal Wall Initial 05/12/2018 Orders Only [facility] Stevan Bhakta D.O. Screening Mammogram Breast Cancer 01/25/2018 Refill Department of Cardiovascular Diseases in [address] [phone] Roberto Dumont APRN, C.N.P. Med Refill 01/05/2018 Orders Only Department of Internal Medicine in [address] [address] Stevan Bhakta D.O. Deficiency Estrogen Post Menopausal; Screening Mammogram Average Risk Patient 12/30/2017 12:30 PM CDT Office Visit Department of Cardiovascular Diseases in [address] [address] Tariq Estrella M.D. Brandl, Adam C, APRN, C.NHowiePHowie Cardiomyopathy Dilated (HCC); Dyslipidemia 12/28/2017 12:00 PM CDT - 12/28/2017 11:59 PM CDT Hospital Encounter Department of Laboratory Medicine in [address] [address] Tariq Estrella M.D. Cardiomyopathy Dilated (HCC) Discharge Disposition: Home or Self Care 07/29/2017 Clinical Communication Department of Cardiovascular Diseases in [address] [address] Tariq Estrella M.D. Results 07/28/2017 8:34 AM CDT - 07/28/2017 11:59 PM CDT Hospital Encounter Department of Cardiovascular Diseases in [address] [address] Tariq Estrella M.D. Cardiomyopathy Dilated (HCC) Discharge Disposition: Home or Self Care 07/21/2017 Refill Department of Cardiovascular Diseases in [address] [address] Tariq Estrella M.D. Med Refill 07/19/2017 11:23 AM CDT - 07/19/2017 11:59 PM CDT Hospital Encounter Department of Radiology in [address] [address] Bayron Fernandez M.D. Pain Low Back Acute Discharge Disposition: Home or Self Care 07/19/2017 12:00 PM CDT Office Visit Urgent Care in [address] [phone] Bayron Fernandez M.D. Pain Low Back Acute (Primary Dx) 07/02/2017 Clinical Communication Department of Cardiovascular Diseases in [address] [address] Willis Lopez M.H.A. Communication 07/02/2017 Clinical Communication Department of Internal Medicine in [address] [address] Elgin Armas M.D. Communication 07/02/2017 10:45 AM CDT Office Visit Department of Cardiovascular Diseases in [address] [address] Tariq Estrella M.D. Cardiomyopathy Dilated (HCC) (Primary Dx); Dyslipidemia 06/30/2017 7:57 AM CDT - 06/30/2017 11:59 PM CDT Hospital Encounter Department of Laboratory Medicine in [address] [address] Elgin Armas M.D. Failure Heart (HCC) Discharge Disposition: Home or Self Care 05/19/2017 Orders Only Department of Internal Medicine in [address] [address] Elgin Armas M.D. Diabetes Mellitus Type 2 (HCC) (Primary Dx); Screening Mammogram Average Risk Patient 12/18/2016 Orders Only Department of Cardiovascular Diseases in [address] [address] Tariq Estrella M.D. Failure Heart (HCC) 08/17/2016 8:27 AM CDT - 08/17/2016 11:59 PM CDT Hospital Encounter HX [facility] Parvin Chandler M.D. 07/09/2016 10:38 AM CDT - 07/09/2016 11:59 PM CDT Hospital Encounter HX [facility] Tariq Estrella M.D. 07/01/2016 10:31 [...] LAB Tariq Estrella M.D. 02/13/2015 10:51 AM MANAGER CATH LAB - 02/13/2015 11:59 PM MANAGER CATH LAB Hospital Encounter HX [facility] Braulio Simmons M.D. 02/11/2015 9:17 AM MANAGER CATH LAB - 02/11/2015 11:59 PM MANAGER CATH LAB Hospital Encounter HX [facility] Braulio [...] of breath (Reselect Reaction) 12/09/2021 [facility] CYANOCOBALAMIN , VITAMIN B-12, ORAL 1,000 mcg daily. 08/14/19 16 Active CHOLECALCIFERO L, VITAMIN D3, ORAL Take 1 capsule by mouth daily. 08/14/19 16 Active cyclobenzaprin e (FLEXERIL) 5 mg tablet Take 1 tablet (5 mg total) by mouth at bedtime as needed for muscle spasms. 30 tablet 06/27/19 22 Active zwrwsak-kbvv-z icqs-ckqa-keyh yl 100 mg-150 mg- 50 mg-150 mg capsule Take by mouth 2 (two) times a day as needed. Active cranberry conc/C/Bacill coag (CRANBERRY URINARY TRACT HEALTH ORAL) Take 1 tablet by mouth daily. Active UNABLE TO FIND Med Name: frankincense oil PRN for shoulder pain 03/08/19 Active UNABLE TO FIND Take 1 each by mouth daily. Med Name: Instaflex Multivitamin 03/08/19 25 Active warfarin (Jantoven) 5 mg tablet Take 1.5 tablets (7.5 mg total) by mouth daily. Please take as directed by your Anticoagulation Clinic. 140 tablet 3 05/10/19 25 Active carvediloL (Coreg) 6.25 mg tablet Take 1 tablet (6.25 mg total) by mouth 2 (two) times a day. 180 tablet 3 05/16/19 25 Active atorvastatin (Lipitor) 10 mg tablet Take 1 tablet (10 mg total) by mouth daily. 90 tablet 05/16/19 25 Active furosemide (Lasix) 20 mg tablet Take 1 tablet (20 mg total) by mouth daily. May take an extra dose as needed for weight gain/edema 100 tablet 3 05/16/19 25 Active lisinopriL 40 mg tablet Take 1 tablet (40 mg total) by mouth daily. 90 tablet 05/16/19 25 Active NIFEdipine (Adalat CC) 30 mg ER tablet Take 1 tablet (30 mg total) by mouth daily. 90 tablet 3 05/16/19 25 Active carvediloL (COREG) 6.25 mg tablet take 1 tablet twice daily 180 tablet 3 06/24/19 24 025 Discontin ued(Reord er) warfarin (Jantoven) 5 mg tablet Take 7.5 mg by mouth daily. Take as directed 08/02/19 23 025 Discontin ued(Reord er) atorvastatin (Lipitor) 10 mg tablet TAKE 1 TABLET EVERY DAY 90 tablet 3 02/09/20 24 025 Discontin ued(Reord er) lisinopriL 40 mg tablet TAKE 1 TABLET EVERY DAY 90 tablet 3 02/09/20 24 025 Discontin ued(Reord er) furosemide (Lasix) 20 mg tablet TAKE 1 TABLET (20 MG TOTAL) BY MOUTH DAILY. MAY TAKE AN EXTRA DOSE NEEDED FOR WEIGHT GAIN/EDEMA 100 tablet 3 02/17/20 24 025 Discontin ued(Reord er) NIFEdipine (Adalat CC) 30 mg ER tablet Take 1 tablet (30 mg total) by mouth daily. 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) Anticoagulant Treatment 03/2021 Radiculopathy Lumbar Fifth Left 11/06/2021 Radiculopathy Sacral 11/06/2021 Hyperlipidemia On Treatment 07/02/2017 Hypertensive Heart And Chron ic Kidney Disease With Heart Failure And Stage 1 To 4 Chronic Kidney Disease Or Unspecified Chronic Kidney Disease 07/01/2016 Cardiomyopathy Dilated 08/02/2014 Immunizations Immunization Administration Dates Next Due Influenza high dose QV(65 years or older) (PF) 1 ,12/23/2020 Influenza, Unspecified 12/14/2014,01/20/2007 PCV13 08/17/2014 PPSV23 02/13/2015 Tdap 08/17/2014 Family History Medical History Relation Name Comments Migraines Daughter 1 genesis alberto Migraines Daughter 2 Bre Coronary artery disease Mother abiel ramos Diabetes Mother abiel ramos Hypertension Mother abiel ramos Hypothyroidism Mother abiel richard Obesity Mother abiel ramos Dementia Paternal Grandmother trina ramos Obesity Paternal Grandmother trina ramos Asthma Son 1 janell alberto not sure Migraines Son 2 [place] Migraines Son 3 genesis Relation Name Status Comments Daughter 1 genesis alberto Daughter 2 Bre Mother abiel ramos Paternal Grandmother trina ramos Son 1 janell alberto Son 2 [place] Son 3 genesis Social History Smoking Status as of 06/06/2024 Tobacco Use Types Packs/Day Years Used Date Smoking Tobacco: Never Assessed [facility] Utilities Answer Date Recorded In the past 12 months has e [employer], gas, oil, or water company threatened to [...] week 05/30/2022 How often do you attend [facility] or episcop[employer] services? More than 4 times per year [...] Answer Date Recorded PHQ-2 Score 4 05/15/2024 [facility] Occupational Stress Questionnaire Answer Date Recorded [...] CDT Legal Sex Female 9:57 PM MANAGER CATH LAB Gender Identity Female 09/24/2022 9:59 PM CDT Sexual Orientation Straight 12/19/2021 3: 32 AM CDT Last Filed Vital Signs Vital Sign Reading Time Taken Comments Blood Pressure 137/71 05/15/2024 3:33 PM CDT Pulse 53 05/15/2024 3:33 PM CDT Temperature 36.1 C (96.9 F) 05/15/2024 3:25 PM CDT Respiratory Rate 16 11/06/2021 1:16 PM CDT Oxygen Saturation 98% 12/30/2021 1:38 PM CDT Inhaled Oxygen Concentration - - Weight 88.4 kg (194 lb 14.2 oz) 05/15/2024 3:25 PM CDT Height 163 cm (5' 4.17) 05/15/2024 3:25 PM CDT per EMR Body Mass Index 33.27 05/15/2024 3:25 PM CDT Plan of Treatment Upcoming Encounters Date Type Department Care Team (Latest Contact Info) Description 06/09/2024 11:20 AM CDT Appointment Department of Laboratory Medicine in [place], [place] [address] [place] [address] Patrick Erickson D.O. [address], [place] [address] 06/09/2024 12:00 PM CDT Anticoagulation Visit Department of Anticoagulation in [place], [place] [address] [place] [address] Patrick Erickson D.O. [address], [place] [address] Procedures Procedure Name Priority Date/Time Associated Diagnosis Comments PROTHROMBIN TIME (PT), P Routine 06/06/2024 11:01 AM CDT INR REFLEX, POCT, B Routine 06/06/2024 10:58 AM CDT Hypertensive Heart And Chronic Kidney Disease With Heart Failure And Stage 1 To 4 Chronic Kidney Disease Or Unspecified Chronic Kidney Disease (HCC) Hyperlipidemia On Treatment Atrial Fibrillation Paroxysmal (HCC) Monitoring For Therapeutic Drug Therapy Alf (Current) Anticoagulant Treatment INR REFLEX, POCT, B Routine 05/25/2024 11:42 AM CDT Hypertensive Heart And Chronic Kidney Disease With Heart Failure And Stage 1 To 4 Chronic Kidney Disease Or Unspecified Chronic Kidney Disease (HCC) Hyperlipidemia On Treatment Atrial Fibrillation Paroxysmal (HCC) Monitoring For Therapeutic Drug Therapy Alf (Current) Anticoagulant Treatment PROTHROMBIN TIME (PT), P Routine 05/23/2024 3:45 PM CDT INR REFLEX, POCT, B Routine 05/23/2024 3:42 PM CDT Hypertensive Heart And Chronic Kidney Disease With Heart Failure And Stage 1 To 4 Chronic Kidney Disease Or Unspecified Chronic Kidney Disease (HCC) Hyperlipidemia On Treatment Atrial Fibrillation Paroxysmal (HCC) Monitoring For Therapeutic Drug Therapy Alf (Current) Anticoagulant Treatment PROTHROMBIN TIME (PT), P Routine 05/15/2024 [...] Disease Or Unspecified Chronic Kidney Disease (HCC) LIPID PANEL, S Routine 05/15/2024 2:19 PM CDT Hyperlipidemia On Treatment INR REFLEX, POCT, B Routine 05/09/2024 12:40 PM MANAGER CATH LAB Hypertensive Heart And Chronic Kidney Disease With Heart Failure And Stage 1 To 4 Chronic Kidney Disease Or Unspecified Chronic Kidney Disease (HCC) Hyperlipidemia On Treatment Atrial Fibrillation Paroxysmal (HCC) Monitoring For Therapeutic Drug Therapy Alf (Current) Anticoagulant Treatment INR REFLEX, POCT, B Routine 04/28/2024 2:10 PM MANAGER CATH LAB Atrial Fibrillation Paroxysmal (HCC) Monitoring For Therapeutic Drug Therapy 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) Anticoagulant Treatment INR REFLEX, POCT, B Routine 04/24/2024 9:22 AM MANAGER CATH LAB Hypertensive Heart And Chronic Kidney Disease With Heart Failure And Stage 1 To 4 Chronic Kidney Disease Or Unspecified Chronic Kidney Disease (HCC) Hyperlipidemia On Treatment Atrial Fibrillation Paroxysmal (HCC) Monitoring For Therapeutic Drug Therapy 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) Anticoagulant Treatment INR REFLEX, POCT, B Routine 04/10/2024 11:57 AM MANAGER CATH LAB Hypertensive Heart And Chronic Kidney Disease With Heart Failure And Stage 1 To 4 Chronic Kidney Disease Or Unspecified Chronic Kidney Disease (HCC) Hyperlipidemia On Treatment Atrial Fibrillation Paroxysmal (HCC) Monitoring For Therapeutic Drug Therapy Alf (Current) Anticoagulant Treatment INR REFLEX, POCT, B Routine 03/30/2024 11:38 AM MANAGER CATH LAB Hypertensive Heart And Chronic Kidney Disease With Heart Failure And Stage 1 To 4 Chronic Kidney Disease Or Unspecified Chronic Kidney Disease (HCC) Hyperlipidemia On Treatment Atrial Fibrillation Paroxysmal (HCC) Monitoring For Therapeutic Drug Therapy Alf (Current) Anticoagulant Treatment INR REFLEX, POCT, B Routine 03/20/2024 4:07 PM MANAGER CATH LAB Hypertensive Heart And Chronic Kidney Disease With Heart Failure And Stage 1 To 4 Chronic Kidney Disease Or Unspecified Chronic Kidney Disease (HCC) Hyperlipidemia On Treatment Atrial Fibrillation Paroxysmal (HCC) Monitoring For Therapeutic Drug Therapy 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) Anticoagulant Treatment INR REFLEX, POCT, B Routine 03/10/2024 4:03 PM MANAGER CATH LAB Hypertensive Heart And Chronic Kidney Disease With Heart Failure And Stage 1 To 4 Chronic Kidney Disease Or Unspecified Chronic Kidney Disease (HCC) Hyperlipidemia On Treatment Atrial Fibrillation Paroxysmal (HCC) Monitoring For Therapeutic Drug Therapy 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) Anticoagulant Treatment INR REFLEX, POCT, B Routine 03/02/2024 4:17 PM MANAGER CATH LAB Atrial Fibrillation Paroxysmal (HCC) Monitoring For Therapeutic Drug Therapy 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) Anticoagulant Treatment INR REFLEX, POCT, B Routine 02/24/2024 9:08 AM MANAGER CATH LAB Atrial Fibrillation Paroxysmal (HCC) Monitoring For Therapeutic Drug Therapy Alf (Current) Anticoagulant Treatment INR REFLEX, POCT, B Routine 02/18/2024 10:47 AM MANAGER CATH LAB Hypertensive Heart And Chronic Kidney Disease With Heart Failure And Stage 1 To 4 Chronic Kidney Disease Or Unspecified Chronic Kidney Disease (HCC) Hyperlipidemia On Treatment Atrial Fibrillation Paroxysmal (HCC) Monitoring For Therapeutic Drug Therapy 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) Anticoagulant Treatment INR REFLEX, POCT, B Routine 02/10/2024 7:54 AM MANAGER CATH LAB Hypertensive Heart And Chronic Kidney Disease With Heart Failure And Stage 1 To 4 Chronic Kidney Disease Or Unspecified Chronic Kidney Disease (HCC) Hyperlipidemia On Treatment Atrial Fibrillation Paroxysmal (HCC) Monitoring For Therapeutic Drug Therapy 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) Anticoagulant Treatment INR REFLEX, POCT, B Routine 01/31/2024 10:41 AM MANAGER CATH LAB Hypertensive Heart And Chronic Kidney Disease With Heart Failure And Stage 1 To 4 Chronic Kidney Disease Or Unspecified Chronic Kidney Disease (HCC) Hyperlipidemia On Treatment Atrial Fibrillation Paroxysmal (HCC) Monitoring For Therapeutic Drug Therapy Alf (Current) Anticoagulant Treatment INR REFLEX, POCT, B Routine 01/27/2024 8:08 AM MANAGER CATH LAB Hypertensive Heart And Chronic Kidney Disease With Heart Failure And Stage 1 To 4 Chronic Kidney Disease Or Unspecified Chronic Kidney Disease (HCC) Hyperlipidemia On Treatment Atrial Fibrillation Paroxysmal (HCC) Monitoring For Therapeutic Drug Therapy 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) Anticoagulant Treatment INR REFLEX, POCT, B Routine 01/13/2024 8:00 AM MANAGER CATH LAB Hypertensive Heart And Chronic Kidney Disease With Heart Failure And Stage 1 To 4 Chronic Kidney Disease Or Unspecified Chronic Kidney Disease (HCC) Hyperlipidemia On Treatment Atrial Fibrillation Paroxysmal (HCC) Monitoring For Therapeutic Drug Therapy 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) Anticoagulant Treatment INR REFLEX, POCT, B Routine 01/06/2024 8:11 AM CDT Hypertensive Heart And Chronic Kidney Disease With Heart Failure And Stage 1 To 4 Chronic Kidney Disease Or Unspecified Chronic Kidney Disease (HCC) Hyperlipidemia On Treatment Atrial Fibrillation Paroxysmal (HCC) Monitoring For Therapeutic Drug Therapy 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) Anticoagulant Treatment INR REFLEX, POCT, B Routine 12/28/2023 2:43 PM CDT Hypertensive Heart And Chronic Kidney Disease With Heart Failure And Stage 1 To 4 Chronic Kidney Disease Or Unspecified Chronic Kidney Disease (HCC) Hyperlipidemia On Treatment Atrial Fibrillation Paroxysmal (HCC) Monitoring For Therapeutic Drug Therapy 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) Anticoagulant Treatment INR REFLEX, POCT, B Routine 12/24/2023 3:45 PM CDT Hypertensive Heart And Chronic Kidney Disease With Heart Failure And Stage 1 To 4 Chronic Kidney Disease Or Unspecified Chronic Kidney Disease (HCC) Hyperlipidemia On Treatment Atrial Fibrillation Paroxysmal (HCC) Monitoring For Therapeutic Drug Therapy 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) Anticoagulant Treatment BASIC METABOLIC PANEL, [...] Paroxysmal (HCC) Monitoring For Therapeutic Drug Therapy Alf (Current) Anticoagulant Treatment COMPREHENSIVE METABOLIC PANEL, S/P [...] Paroxysmal (HCC) Monitoring For Therapeutic Drug Therapy 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) Anticoagulant Treatment EXTM HOME SARS CORONAVIRUS-2 (COVID-19) ANTIGEN, V Routine 11/26/2023 6:00 PM CDT INR REFLEX, POCT, B Routine 11/22/2023 3:52 PM CDT Hypertensive Heart And Chronic Kidney Disease With Heart Failure And Stage 1 To 4 Chronic Kidney Disease Or Unspecified Chronic Kidney Disease (HCC) Hyperlipidemia On Treatment Atrial Fibrillation Paroxysmal (HCC) Monitoring For Therapeutic Drug Therapy 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) Anticoagulant Treatment INR REFLEX, POCT, B Routine 11/12/2023 12:09 PM CDT Atrial Fibrillation Paroxysmal (HCC) Monitoring For Therapeutic Drug Therapy 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) Anticoagulant Treatment INR REFLEX, POCT, B Routine 11/02/2023 2:58 PM CDT Hypertensive Heart And Chronic Kidney Disease With Heart Failure And Stage 1 To 4 Chronic Kidney Disease Or Unspecified Chronic Kidney Disease (HCC) Hyperlipidemia On Treatment Atrial Fibrillation Paroxysmal (HCC) Monitoring For Therapeutic Drug Therapy Alf (Current) Anticoagulant Treatment INR REFLEX, POCT, B Routine 10/28/2023 3:00 PM CDT Hypertensive Heart And Chronic Kidney Disease With Heart Failure And Stage 1 To 4 Chronic Kidney Disease Or Unspecified Chronic Kidney Disease (HCC) Hyperlipidemia On Treatment Atrial Fibrillation Paroxysmal (HCC) Monitoring For Therapeutic Drug Therapy 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) Anticoagulant Treatment INR REFLEX, POCT, B Routine 10/15/2023 3:09 PM CDT Hypertensive Heart And Chronic Kidney Disease With Heart Failure And Stage 1 To 4 Chronic Kidney Disease Or Unspecified Chronic Kidney Disease (HCC) Hyperlipidemia On Treatment Atrial Fibrillation Paroxysmal (HCC) Monitoring For Therapeutic Drug Therapy Alf (Current) Anticoagulant Treatment INR REFLEX, POCT, B Routine 10/07/2023 2:55 PM CDT Atrial Fibrillation Paroxysmal (HCC) INR REFLEX, POCT, B Routine 10/01/2023 3:00 PM CDT Hypertensive Heart With Heart Failure And Chronic Kidney Disease (CKD) Stage 3a Glomerular Filtration Rate (GFR) 45 To 59 (HCC) Hyperlipidemia On Treatment Atrial Fibrillation Paroxysmal (HCC) Monitoring For Therapeutic Drug Therapy Alf (Current) Anticoagulant Treatment INR REFLEX, POCT, B Routine 09/24/2023 3:14 PM CDT Hypertensive Heart With Heart Failure And Chronic Kidney Disease (CKD) Stage 3a Glomerular Filtration Rate (GFR) 45 To 59 (HCC) Hyperlipidemia On Treatment Atrial Fibrillation Paroxysmal (HCC) Monitoring For Therapeutic Drug Therapy Alf (Current) Anticoagulant Treatment PROTHROMBIN TIME (PT), P Routine 09/21/2023 12:41 PM CDT INR REFLEX, POCT, B Routine 09/21/2023 12:39 PM CDT Hypertensive Heart With Heart Failure And Chronic Kidney Disease (CKD) Stage 3a Glomerular Filtration Rate (GFR) 45 To 59 (HCC) Hyperlipidemia On Treatment Atrial Fibrillation Paroxysmal (HCC) Monitoring For Therapeutic Drug Therapy Alf (Current) Anticoagulant Treatment INR REFLEX, POCT, B Routine 09/14/2023 1:00 PM CDT Hypertensive Heart With Heart Failure And Chronic Kidney Disease (CKD) Stage 3a Glomerular Filtration Rate (GFR) 45 To 59 (HCC) Hyperlipidemia On Treatment Atrial Fibrillation Paroxysmal (HCC) Monitoring For Therapeutic Drug Therapy Alf (Current) Anticoagulant Treatment INR REFLEX, POCT, B Routine 09/08/2023 3:39 PM CDT Hypertensive Heart With Heart Failure And Chronic Kidney Disease (CKD) Stage 3a Glomerular Filtration Rate (GFR) 45 To 59 (HCC) Hyperlipidemia On Treatment Atrial Fibrillation Paroxysmal (HCC) Monitoring For Therapeutic Drug Therapy 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) Anticoagulant Treatment INR REFLEX, POCT, B Routine 09/02/2023 3:09 PM CDT Hypertensive Heart With Heart Failure And Chronic Kidney Disease (CKD) Stage 3a Glomerular Filtration Rate (GFR) 45 To 59 (HCC) Hyperlipidemia On Treatment Atrial Fibrillation Paroxysmal (HCC) Monitoring For Therapeutic Drug Therapy Alf (Current) Anticoagulant Treatment INR REFLEX, POCT, B Routine 08/27/2023 2:01 PM CDT Hypertensive Heart With Heart Failure And Chronic Kidney Disease (CKD) Stage 3a Glomerular Filtration Rate (GFR) 45 To 59 (HCC) Hyperlipidemia On Treatment Atrial Fibrillation Paroxysmal (HCC) Monitoring For Therapeutic Drug Therapy Alf (Current) Anticoagulant Treatment INR REFLEX, POCT, B Routine 08/24/2023 9:50 AM CDT Hypertensive Heart With Heart Failure And Chronic Kidney Disease (CKD) Stage 3a Glomerular Filtration Rate (GFR) 45 To 59 (HCC) Hyperlipidemia On Treatment Atrial Fibrillation Paroxysmal (HCC) Monitoring For Therapeutic Drug Therapy 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) Anticoagulant Treatment INR REFLEX, POCT, B Routine 08/16/2023 1:35 PM CDT Hypertensive Heart With Heart Failure And Chronic Kidney Disease (CKD) Stage 3a Glomerular Filtration Rate (GFR) 45 To 59 (HCC) Hyperlipidemia On Treatment Atrial Fibrillation Paroxysmal (HCC) Monitoring For Therapeutic Drug Therapy Alf (Current) Anticoagulant Treatment INR REFLEX, POCT, B Routine 08/05/2023 2:44 PM CDT Hypertensive Heart With Heart Failure And Chronic Kidney Disease (CKD) Stage 3a Glomerular Filtration Rate (GFR) 45 To 59 (HCC) Hyperlipidemia On Treatment Atrial Fibrillation Paroxysmal (HCC) Monitoring For Therapeutic Drug Therapy 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) Anticoagulant Treatment INR REFLEX, POCT, B Routine 07/06/2023 8:46 AM CDT Atrial Fibrillation Paroxysmal (HCC) Hypertensive Heart With Heart Failure And Chronic Kidney Disease (CKD) Stage 3a Glomerular Filtration Rate (GFR) 45 To 59 (HCC) Hyperlipidemia On Treatment Monitoring For Therapeutic Drug Therapy 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) Anticoagulant Treatment LIPID PANEL, S Routine [...] Paroxysmal (HCC) Monitoring For Therapeutic Drug Therapy 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) Anticoagulant Treatment INR REFLEX, POCT, B Routine 06/03/2023 1:26 PM CDT Hypertensive Heart With Heart Failure And Chronic Kidney Disease (CKD) Stage 3a Glomerular Filtration Rate (GFR) 45 To 59 (HCC) Hyperlipidemia On Treatment Atrial Fibrillation Paroxysmal (HCC) Monitoring For Therapeutic Drug Therapy Alf (Current) Anticoagulant Treatment INR REFLEX, POCT, B Routine 05/27/2023 10:49 AM CDT Hypertensive Heart With Heart Failure And Chronic Kidney Disease (CKD) Stage 3a Glomerular Filtration Rate (GFR) 45 To 59 (HCC) Hyperlipidemia On Treatment Atrial Fibrillation Paroxysmal (HCC) Monitoring For Therapeutic Drug Therapy Alf (Current) Anticoagulant Treatment INR REFLEX, POCT, B Routine 05/21/2023 2:55 PM CDT Atrial Fibrillation Paroxysmal (HCC) INR REFLEX, POCT, B Routine 05/07/2023 1:04 PM MANAGER CATH LAB Hypertensive Heart With Heart Failure And Chronic Kidney Disease (CKD) Stage 3a Glomerular Filtration Rate (GFR) 45 To 59 (HCC) Hyperlipidemia On Treatment Atrial Fibrillation Paroxysmal (HCC) Monitoring For Therapeutic Drug Therapy 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) Anticoagulant Treatment INR REFLEX, POCT, B Routine 04/30/2023 12:42 PM MANAGER CATH LAB Hypertensive Heart With Heart Failure And Chronic Kidney Disease (CKD) Stage 3a Glomerular Filtration Rate (GFR) 45 To 59 (HCC) Hyperlipidemia On Treatment Atrial Fibrillation Paroxysmal (HCC) Monitoring For Therapeutic Drug Therapy Alf (Current) Anticoagulant Treatment INR REFLEX, POCT, B Routine 04/02/2023 2:53 PM MANAGER CATH LAB Hypertensive Heart With Heart Failure And Chronic Kidney Disease (CKD) Stage 3a Glomerular Filtration Rate (GFR) 45 To 59 (HCC) Hyperlipidemia On Treatment Atrial Fibrillation Paroxysmal (HCC) Monitoring For Therapeutic Drug Therapy 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) Anticoagulant Treatment INR REFLEX, POCT, B Routine 03/19/2023 3:19 PM MANAGER CATH LAB Hypertensive Heart With Heart Failure And Chronic Kidney Disease (CKD) Stage 3a Glomerular Filtration Rate (GFR) 45 To 59 (HCC) Monitoring For Therapeutic Drug Therapy Atrial Fibrillation Paroxysmal (HCC) INR REFLEX, POCT, B Routine 03/12/2023 3:11 PM MANAGER CATH LAB Atrial Fibrillation Paroxysmal (HCC) Monitoring For Therapeutic Drug Therapy 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) Anticoagulant Treatment INR REFLEX, POCT, B Routine 03/09/2023 2:21 PM MANAGER CATH LAB Atrial Fibrillation Paroxysmal (HCC) Monitoring For Therapeutic Drug Therapy 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) Anticoagulant Treatment INR REFLEX, POCT, B Routine 03/05/2023 4:19 PM MANAGER CATH LAB Atrial Fibrillation Paroxysmal (HCC) Monitoring For Therapeutic Drug Therapy 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) Anticoagulant Treatment INR REFLEX, POCT, B Routine 02/24/2023 5:02 PM MANAGER CATH LAB Atrial Fibrillation Paroxysmal (HCC) Monitoring For Therapeutic Drug Therapy 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) Anticoagulant Treatment EXTM HOME SARS CORONAVIRUS-2 (COVID-19) ANTIGEN, V Routine 02/24/2023 12:58 PM MANAGER CATH LAB INR REFLEX, POCT, B Routine 02/16/2023 10:12 AM MANAGER CATH LAB Atrial Fibrillation Paroxysmal (HCC) Monitoring For Therapeutic Drug Therapy 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) Anticoagulant Treatment INR REFLEX, POCT, B Routine 02/02/2023 12:08 PM MANAGER CATH LAB Atrial Fibrillation Paroxysmal (HCC) Monitoring For Therapeutic Drug Therapy Alf (Current) Anticoagulant Treatment INR REFLEX, POCT, B Routine 01/26/2023 9:30 AM MANAGER CATH LAB Atrial Fibrillation Paroxysmal (HCC) Monitoring For Therapeutic Drug Therapy 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) Anticoagulant Treatment INR REFLEX, POCT, B Routine 12/15/2022 11:37 AM CDT Atrial Fibrillation Paroxysmal (HCC) Monitoring For Therapeutic Drug Therapy Alf (Current) Anticoagulant Treatment INR REFLEX, POCT, B Routine 11/17/2022 2:18 PM CDT Atrial Fibrillation Paroxysmal (HCC) Monitoring For Therapeutic Drug Therapy Alf (Current) Anticoagulant Treatment INR REFLEX, POCT, B Routine 11/10/2022 12:18 PM CDT Atrial Fibrillation Paroxysmal (HCC) Monitoring For Therapeutic Drug Therapy 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) Anticoagulant Treatment INR REFLEX, POCT, B Routine 11/04/2022 2:23 PM CDT Atrial Fibrillation Paroxysmal (HCC) Monitoring For Therapeutic Drug Therapy 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) Anticoagulant Treatment INR REFLEX, POCT, B Routine 10/27/2022 11:50 AM CDT Atrial Fibrillation Paroxysmal (HCC) Monitoring For Therapeutic Drug Therapy 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) Anticoagulant Treatment BASIC METABOLIC PANEL, S/P Routine 10/12/2022 10:09 AM CDT 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 Glomerular Filtration Rate (GFR) 45 To 59 (HCC) INR REFLEX, POCT, B Routine 10/12/2022 10:02 AM CDT Atrial Fibrillation Paroxysmal (HCC) Monitoring For Therapeutic Drug Therapy 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) Anticoagulant Treatment RI URINALYSIS AUTO W MICRO Routine 10/12/2022 10:02 [...] Paroxysmal (HCC) Monitoring For Therapeutic Drug Therapy 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) Anticoagulant Treatment INR REFLEX, POCT, B Routine 09/17/2022 11:22 AM CDT Atrial Fibrillation Paroxysmal (HCC) Monitoring For Therapeutic Drug Therapy BASIC METABOLIC PANEL, S/P Routine 09/17/2022 11:22 AM CDT Monitoring For Therapeutic Drug Therapy INR REFLEX, POCT, B Routine 09/03/2022 10:43 AM CDT Atrial Fibrillation Unspecified (HCC) Monitoring For Therapeutic Drug Therapy Alf (Current) Anticoagulant Treatment INR REFLEX, POCT, B Routine 08/10/2022 11:16 AM CDT Atrial Fibrillation Unspecified (HCC) Monitoring For Therapeutic Drug Therapy Alf (Current) Anticoagulant Treatment INR REFLEX, POCT, B Routine 08/10/2022 11:15 AM CDT INR REFLEX, POCT, B Routine 07/27/2022 3:15 PM CDT Atrial Fibrillation Unspecified (HCC) Monitoring For Therapeutic Drug Therapy 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) Anticoagulant Treatment INR REFLEX, POCT, B Routine 07/27/2022 3:14 PM CDT INR REFLEX, POCT, B Routine 06/29/2022 10:21 AM CDT INR REFLEX, POCT, B Routine 06/29/2022 10:21 AM CDT Atrial Fibrillation Unspecified Monitoring For Therapeutic Drug Therapy Alf (Current) Anticoagulant Treatment INR REFLEX, POCT, B Routine 06/19/2022 10:34 AM CDT Atrial Fibrillation Unspecified Monitoring For Therapeutic Drug Therapy 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) Anticoagulant Treatment INR REFLEX, POCT, B Routine 06/19/2022 10:32 AM CDT PROTHROMBIN TIME (PT), P Routine 06/15/2022 10:13 AM CDT INR REFLEX, POCT, B Routine 06/15/2022 10:09 AM CDT INR REFLEX, POCT, B Routine 06/15/2022 10:09 AM CDT Atrial Fibrillation Unspecified Monitoring For Therapeutic Drug Therapy Alf (Current) Anticoagulant Treatment INR REFLEX, POCT, B Routine 06/09/2022 10:16 AM CDT Atrial Fibrillation Unspecified Monitoring For Therapeutic Drug Therapy 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) Anticoagulant Treatment PROTHROMBIN TIME (PT), P Routine 06/09/2022 10:16 AM CDT INR REFLEX, POCT, B Routine 06/09/2022 10:09 AM CDT (TTE) 2D ECHO DOPPLER COLOR Routine 06/01/2022 8:09 AM CDT Cardiomyopathy Dilated (HCC) INR REFLEX, POCT, B Routine 05/12/2022 10:01 AM MANAGER CATH LAB Atrial Fibrillation Unspecified Monitoring For Therapeutic Drug Therapy Alf (Current) Anticoagulant Treatment INR REFLEX, POCT, B Routine 05/12/2022 10:00 AM MANAGER CATH LAB INR REFLEX, POCT, B Routine 04/28/2022 2:50 PM MANAGER CATH LAB INR REFLEX, POCT, B Routine 04/28/2022 2:50 PM MANAGER CATH LAB Atrial Fibrillation Unspecified Monitoring For Therapeutic Drug Therapy 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) Anticoagulant Treatment INR REFLEX, POCT, B Routine 04/21/2022 10:55 AM MANAGER CATH LAB Atrial Fibrillation Unspecified Monitoring For Therapeutic Drug Therapy Alf (Current) Anticoagulant Treatment INR REFLEX, POCT, B Routine 04/21/2022 10:54 AM MANAGER CATH LAB HOLTER MONITOR - IN CLINIC EBD SPECIAL EDUCATION TEACHER Routine 04/08/2022 2:11 AM MANAGER CATH LAB Atrial Fibrillation Other Persistent (HCC) INR REFLEX, POCT, B Routine 04/07/2022 10:32 AM MANAGER CATH LAB Atrial Fibrillation Unspecified Monitoring For Therapeutic Drug Therapy Alf (Current) Anticoagulant Treatment INR REFLEX, POCT, B Routine 04/07/2022 10:31 AM MANAGER CATH LAB INR REFLEX, POCT, B Routine 03/31/2022 12:03 PM MANAGER CATH LAB Atrial Fibrillation Unspecified Monitoring For Therapeutic Drug Therapy Alf (Current) Anticoagulant Treatment INR REFLEX, POCT, B Routine 03/31/2022 12:02 PM MANAGER CATH LAB PROTHROMBIN TIME (PT), P Routine 03/24/2022 1:08 PM MANAGER CATH LAB INR REFLEX, POCT, B Routine 03/24/2022 1:06 PM MANAGER CATH LAB Atrial Fibrillation Unspecified Monitoring For Therapeutic Drug Therapy Alf (Current) Anticoagulant Treatment INR REFLEX, POCT, B Routine 03/24/2022 1:05 PM MANAGER CATH LAB INR REFLEX, POCT, B Routine 03/16/2022 10:08 AM MANAGER CATH LAB INR REFLEX, POCT, B Routine 03/16/2022 10:08 AM MANAGER CATH LAB Atrial Fibrillation Unspecified Monitoring For Therapeutic Drug Therapy 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) Anticoagulant Treatment INR REFLEX, POCT, B Routine 03/06/2022 11:06 AM MANAGER CATH LAB Atrial Fibrillation Unspecified Monitoring For Therapeutic Drug Therapy Alf (Current) Anticoagulant Treatment INR REFLEX, POCT, B Routine 03/06/2022 11:05 AM MANAGER CATH LAB INR REFLEX, POCT, B Routine 02/20/2022 11:30 AM MANAGER CATH LAB Atrial Fibrillation Unspecified Monitoring For Therapeutic Drug Therapy Alf (Current) Anticoagulant Treatment INR REFLEX, POCT, B Routine 02/20/2022 11:29 AM MANAGER CATH LAB INR REFLEX, POCT, B Routine 02/13/2022 11:36 AM MANAGER CATH LAB Atrial Fibrillation Unspecified Monitoring For Therapeutic Drug Therapy Alf (Current) Anticoagulant Treatment INR REFLEX, POCT, B Routine 02/13/2022 11:35 AM MANAGER CATH LAB INR REFLEX, POCT, B Routine 02/06/2022 2:50 PM MANAGER CATH LAB INR REFLEX, POCT, B Routine 02/06/2022 2:50 PM MANAGER CATH LAB Atrial Fibrillation Unspecified Monitoring For Therapeutic Drug Therapy Alf (Current) Anticoagulant Treatment INR REFLEX, POCT, B Routine 02/02/2022 12:15 PM MANAGER CATH LAB INR REFLEX, POCT, B Routine 02/02/2022 12:15 PM MANAGER CATH LAB Atrial Fibrillation Unspecified Monitoring For Therapeutic Drug Therapy Alf (Current) Anticoagulant Treatment INR REFLEX, POCT, B Routine 01/23/2022 3:58 PM MANAGER CATH LAB Atrial Fibrillation Unspecified Monitoring For Therapeutic Drug Therapy 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) Anticoagulant Treatment INR REFLEX, POCT, B Routine 01/23/2022 3:57 PM MANAGER CATH LAB INR REFLEX, POCT, B Routine 01/15/2022 11:43 AM MANAGER CATH LAB Atrial Fibrillation Unspecified Monitoring For Therapeutic Drug Therapy 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) Anticoagulant Treatment INR REFLEX, POCT, B Routine 01/15/2022 11:42 AM MANAGER CATH LAB INR REFLEX, POCT, B Routine 01/12/2022 2:19 PM MANAGER CATH LAB INR REFLEX, POCT, B Routine 01/12/2022 2:19 PM MANAGER CATH LAB Atrial Fibrillation Unspecified Monitoring For Therapeutic Drug Therapy 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) Anticoagulant Treatment ECG Routine 12/30/2021 [...] 59 (HCC) HOLTER MONITOR - IN CLINIC EBD SPECIAL EDUCATION TEACHER Routine 05/27/2020 3:59 PM CDT Cardiomyopathy Dilated (HCC) MR LUMBAR SPINE WITHOUT IV CONTRAST RAD - Routine (most inpatients and all outpatients) 05/17/2020 11:41 AM MANAGER CATH LAB Pain Low Back LIPID PANEL, S Routine 05/17/2020 10:53 AM MANAGER CATH LAB Cardiomyopathy Dilated (HCC) THYROID-STIMULATING HORMONE-SENSITIVE (S-TSH) Routine 05/17/2020 10:53 AM MANAGER CATH LAB Cardiomyopathy Dilated (HCC) BASIC METABOLIC PANEL, S/P Routine 05/17/2020 10:53 AM MANAGER CATH LAB Cardiomyopathy Dilated (HCC) CBC WITH DIFFERENTIAL, B Routine 05/17/2020 10:53 AM MANAGER CATH LAB Cardiomyopathy Dilated (HCC) SARS CORONAVIRUS-2 RNA, V [...] ELECTROLYTE PANEL, S Routine 02/11/2015 9:35 AM MANAGER CATH LAB BUN (BLOOD UREA NITROGEN), S/P Routine 02/11/2015 9:35 AM MANAGER CATH LAB CREATININE WITH EGFR, S/P Routine 02/11/2015 9:35 AM MANAGER CATH LAB NT-PRO B-TYPE NATRIURETIC PEPTIDE (BNP), S Routine [...] CDT Results * (ABNORMAL) Prothrombin Time (PT) (06/06/2024 11:01 AM CDT) Only the most recent of8 resultswithin the time period is included. Prothrombin Time, P 76.6(H) 9.4 - 12.5 sec 06/06/2024 2:13 PM CDT OWAT INR 6.4(CH) 0.9 - 1.1 06/06/2024 2:13 PM CDT OWAT Comment: ----ADDITIONAL INFORMATION---- Standard intensity warfarin therapeutic range: 2.0 to 3.0 High intensity warfarin therapeutic range: 2.5 to 3.5 Blood 06/06/2024 11:0 1 AM CDT 06/06/2024 1:10 PM CDT us Patrick Erickson D.O. LAB BLOOD ADD-ON Final Res ult [facility] [address] [place] [address], [place] OWAT [facility] [place] [address] [place] [address] * (ABNORMAL) INR Reflex, POCT, Blood (06/06/2024 10:58 AM CDT) Only the most recent of106 resultswithin the time period is included. INR Reflex, POCT, B 7.6(CH) 06/06/2024 10:57 AM CDT FB60 Comment: ----ADDITIONAL INFORMATION---- Standard intensity warfarin therapeutic range: 2.0 to 3.0 High intensity warfarin therapeutic range: 2.5 to 3.5 Blood (Blood, Capillary) 06/06/2024 10:58 AM CDT 06/06/2024 10:57 AM CDT us Patrick Erickson D.O. LAB POCT ORDERABLES - CARLOS ENRIQUE CE Final Result [facility] [address] [place] [address], [facility] FB60 [facility] [place] [address] [place] [address] * Lipid Panel (05/15/2024 2:19 PM CDT) Only the most recent of7 resultswithin the time period is included. Pathologist [facility] Triglycerides 114 mg/dL 05/15/2024 2:52 PM CDT [...] D.O. LAB BLOOD ADD-ON Final Res ult [facility] [address] [place] [id number], [facility] OWAT [facility] [place] [address], [place] [address] * CBC without Differential (05/15/2024 2:19 PM CDT) Only the most recent of3 resultswithin the time period is included. Hemoglobin 12.4 11.6 - 15.0 g/dL 05/15/2024 [...] D.O. LAB BLOOD ADD-ON Final Res ult [facility] [address] [place] [address], [place] OW[place] [facility] [place] [address] [place] [address] * (ABNORMAL) Basic Metabolic Panel (05/15/2024 2:19 PM CDT) Only the most recent of8 resultswithin the time period is included. Potassium, P 3.9 3.6 - 5.2 mmol/L [...] D.O. LAB BLOOD ADD-ON Final Res ult [facility] [address] [place] [address], [place] OW[place] [facility] [place] [address] [place] [address] * (ABNORMAL) Comprehensive Metabolic Panel (12/15/2023 5:00 PM CDT) [facility] Potassium, P 4.6 3.6 - 5.2 mmol/L [...] ADD-ON Final Res ult Performing Organization Address City/[facility]/ZIP Co de Phone Number [facility] [address] [place] [id number], [place] OW[place] [facility] [place] [address], [place] [address] * (ABNORMAL) EXT Home SARS Coronavirus-2 (COVID-19) Antigen (11/26/2023 6:00 PM CDT) Only the most recent of2 resultswithin the time period is included. EXT Home SARS-CoV-2 Antigen Presumptive Positive(A) Presumptive Negative OTHER (SPECIFY IN BALLET PROFESSOR) Swab 11/26/2023 6:00 PM CDT us Historical Provider LAB MICROBIOLOGY - GENERAL O RDERABLES Final Result OTHER (SPECIFY IN BALLET PROFESSOR) N/A * (ABNORMAL) CBC with Differential, Blood (07/06/2023 [...] D.O. LAB BLOOD ADD-ON Final Res ult [facility] [address] [place] [address], [facility] FB60 [facility] [place] [address] [place] [address] * (ABNORMAL) Glucose, Fasting (07/06/2023 8:46 AM CDT) Glucose, P 131(H) 70 - 100 mg/dL 07/06/2023 2:02 PM CDT OWAT Last Intake 13 hr 07/06/2023 1:09 PM CDT OWAT Blood (Blood, Venous) 07/06/2023 8:46 AM CDT 07/06/2023 1:09 PM CDT us Patrick Erickson D.O. LAB BLOOD NON ADD-ON Final Result [facility] [address] [place] [address], [place] [facility] [place] [address] [place] [address] * ECG 12 Lead (06/22/2023 10:27 AM CDT) Only the most recent of3 resultswithin the time period is included. Ventricular Rate ECG/Min 43 BPM MUSE RI Interval 150 ms MUSE QRSD Interval 110 ms MUSE QT Interval 500 ms MUSE QTC Interval 422 ms MUSE P Gonzales 56 degrees MUSE R Gonzales 6 degrees MUSE T Wave Gonzales 269 degrees MUSE 06/22/2023 10:2 7 AM [...] changes have occurred Reviewed by ASHIA Romero us Roberto Dumont APRN, C.N.P. ECG ORDERABLES Final [...] 8.0 10/12/2022 10:32 AM CDT FB60 Specific [place] 1.010 1.001 - 1.035 10/12/2022 10:32 AM CDT FB60 Urobilinogen 0.2 0.2 - 1.0 mg/dL 10/12/2022 10:32 AM CDT FB60 Urine (Urine, Midstream) 10/12/2022 10:02 AM CDT 10/12/2022 10:19 AM CDT us Soheila Zapata P.A.-C., M.S. LAB URINE ORDERA BLES Final Result [facility] [address] [place] [address], [facility] FB60 [facility] [place] [address] [place] [address] * (ABNORMAL) Microscopic Manual (10/12/2022 10:02 AM [...] ORDERA BLES Final Result Performing Organization Address [facility] Co de Phone Number [facility] [address] [place] [address], [facility] FB[address] [address] * (ABNORMAL) Albumin, Random, Urine (10/12/2022 10:02 [...] PM CDT Soheila Zapata P.A.-C., M.S. LAB URINE ORDERA BLES Final Result Performing Organization Address [facility]/ZIP Co de Phone Number [facility] [address] [place] [address], [place] OW[place] [facility] [place] [address] [place] [address] * (TTE) 2D ECHO DOPPLER COLOR (06/01/2022 [...] were performed but not reported based on rough rib grader's judgment. Mild generalized left ventricular hypokinesis. Normal [...] were performed but not reported based on rough rib grader'sjudgment. Mild generalized left ventricular hypokinesis. Normal leftventricular [...] see the Order-Level Documents. us Roberto Dumont APRN, C.N.P. CV ECHO PROCEDURES Fi nal Result * HOLTER MONITOR - IN CLINIC EBD SPECIAL EDUCATION TEACHER (04/08/2022 2:11 AM MANAGER CATH LAB) Only the most recent of2 resultswithin the [...] Duration 0 duration INFOBION IC MOME AF Benge 0 percent INFOBIONIC MOME Symptom Count 1 count INFOBI ONIC MOME 04/07/2022 10:3 2 AM MANAGER CATH LAB Narrative INFOBIONIC MOME - 04/10/2022 9:40 AM MANAGER CATH LAB [place]. The basic rhythm was sinus with [...] were noted in or around these events. Surgery Aid: Smita Venegas/[id number] Fellow: Bradly Davenport MD Procedure Note Rachana Silva M.D., Ph.D. - 04/10/2022 [place] 1. The basic rhythm was sinus with [...] bigeminywere noted in or around these events. Surgery Aid: Smita Venegas/[id number] Fellow: Bradly Davenport MD Roberto Dumont APRN C.N.P. CV CARDIAC SERVICES P ROCEDURES Edited Result - Final INFOBIONIC STACIE NA * FL LUMBAR SPINE TRANSFORAMINAL EPIDURAL INJECTION LEFT (12/25/2021 3:40 PM CDT) Narrative [address] Z[address] ESTRADA - 12/25/2021 3:15 PM CDT Eder Torres M.D. 12/25/2021 4:01 PM NV Lumbar Spine Transforaminal Epidural Injection Left Performed [...] Local infiltrate type: lidocaine Eder MAN FLUOROSCOPY PROCEDUR ES Final Result 8020 LOS SEMN * BI Breast Screening Bilateral [...] P.A.-C., M.S. LAB BLOOD ADD-ON Final Result [facility] [address] [place] [address], [place] [facility] [place] [address] [place] [address] * Sodium (11/06/2021 2:48 PM CDT) Only the most recent of3 resultswithin the time period is included. Sodium, P 142 135 - 145 mmol/L 11/06/2021 3:22 PM CDT OW[facility] Blood (Blood, Venous) 11/06/2021 2:48 PM CDT 11/06/2021 2:52 PM CDT Soheila Zapata P.A.-C., M.S. LAB BLOOD ADD-ON Final Result Performing Organization Address [facility] Co de Phone Number [facility] [address] [place] [address], [place] [facility] [place] [address] [place] [address] * Potassium (11/06/2021 2:48 PM CDT) Only the most recent of5 resultswithin the time period is included. Potassium, P 4.2 3.6 - 5.2 mmol/L 11/06/2021 3:22 PM CDT OW[facility] Blood (Blood, Venous) 11/06/2021 2:48 PM CDT 11/06/2021 2:52 PM CDT Soheila Zapata P.A.-C., M.S. LAB BLOOD ADD-ON Final Result Performing Organization Address City/[facility]/ZIP Co de Phone Number [facility] [address] [place] [address], [place] [facility] [place] [address] [place] [address] * (ABNORMAL) Hemoglobin A1c (11/06/2021 2:48 PM [...] BLOOD ADD-ON Final Result Performing Organization Address City/[facility]/ZIP Co de Phone Number [facility] [address] [place] [address], [facility] [place] [address] [place] [address] * (ABNORMAL) Creatinine with Estimated GFR (11/06/2021 [...] BLOOD ADD-ON Final Result Performing Organization Address City/[facility]/ZIP Co de Phone Number [facility] [address] [place] [address], [facility] [place] [address] [place] [address] * MR Lumbar Spine without IV Contrast (05/17/2020 11:41 AM MANAGER CATH LAB) Anatomical Region Laterality Modality Lumbar Spine, Neuroradiology RST LOS, Neuroradiology ARZ LOS, Neuroradiology FLA LOS N/A Magnetic Resonance 05/17/2020 12:5 1 PM MANAGER CATH LAB Impressions 05/17/2020 1:09 PM MANAGER CATH LAB 1. Degenerative spondylosis lumbar spine, as detailed, including essentially severe narrowing of the spinal canal at L4-L5. 2. A left-sided disc extrusion/protrusion at L5-S1 could result in L5 radicular symptoms. 3. Incidental imaging of a 8.6 cm cyst in the spleen probably representing sequela of remote injury or inflammatory insult. Narrative 05/17/2020 1:09 PM MANAGER CATH LAB EXAM: MR LUMBAR SPINE WITHOUT IV CONTRAST [...] few internal septations is best seen on automotive salesperson imaging (series 1, images 15-18). This is [...] but does not compress the exiting left [id number] root (series 5, image 2-4). No right [...] few internal septations is best seen on automotive salesperson imaging (series 1, images 15-18). Thisis probably [...] disc extrusion/protrusion at L5-S1 could result in [id number] symptoms. 3. Incidental imaging of a 8.6 cm cyst in the spleen probablyrepresenting sequela of remote injury or inflammatory insult. us Butch Velazquez M.D. IMG MRI PROCEDURES Final Result * SARS Coronavirus-2 [...] is performed using the Aptima SARS-CoV-2 assay ([employer] which has received Emergency Use Authorization (EUA) by the U.S. Food and Drug Administration. Fact sheets for this Emergency Use Authorization (EUA) assay can be found at the following links: For Healthcare Providers: https://www.fda.gov/media/253316/download For Patients: https://www.fda.gov/media/634666/download Varies (Nasopharynx) 11/25/2019 1:05 PM CDT 11/25/2019 5:08 PM CDT us Patrick Erickson D.O. LAB MICROBIOLOGY - GENERAL ORDERABLES Final Result [facility] [address] [place] [address], [facility] [place] [address] * Hemoglobin (12/28/2017 12:20 PM CDT) Hemoglobin 12.9 11.6 - 15.0 g/dL 12/28/2017 12:36 PM CDT [facility] Blood (Blood, Venous) 12/28/2017 12:20 PM CDT 12/28/2017 12:34 PM CDT us Tariq Estrella M.D. LAB BLOOD ADD-ON Final Res ult [facility] [address] [place] [address], [facility] * (TTE) 2D ECHO DOPPLER [...] 2. Moderate degenerative lumbar spondylosis. 3. Malalignment. us Bayron Fernandez M.D. IMG DIAGNOSTIC IMAGING PROCE DURES Final Result * BUN (Blood Urea Nitrogen) (06/30/2017 8:20 AM CDT) Only the most recent of5 resultswithin the time period is included. BUN (Blood Urea Nitrogen), S 15 6 - 21 mg/dL 06/30/2017 11:08 AM CDT [facility] Blood 06/30/2017 8:20 AM CDT 06/30/2017 8:36 AM CDT Tariq Estrella M.D. LAB BLOOD ADD-ON Final Res ult Performing Organization Address City/[facility]/ZIP Co de Phone Number [facility] [address] * Automated Differential (08/17/2016 9:54 AM [...] ADD-ON Final Resul t Performing Organization Address City/[facility]/ZIP Co de Phone Number POWERCHART * ALT (Alanine Aminotransferase) (07/09/2016 10:59 AM CDT) Alanine Amniotransferas e, LD 16 7 - 45 UNITL POWERCHART Blood 07/09/2016 10:5 9 AM CDT Tariq Estrella M.D. LAB BLOOD ADD-ON Final Res ult Performing Organization Address [facility] Co de Phone Number POWERCHART * AST (Aspartate Aminotransferase) (07/09/2016 10:59 AM CDT) Aspartate Aminotransferase (AST), S 16 8 - 43 UNITL POWERCHART Blood 07/09/2016 10:5 9 AM CDT Tariq Estrella M.D. LAB BLOOD ADD-ON Final Res ult Performing Organization Address [facility] Co de Phone Number POWERCHART * Electrolyte [...] ADD-ON Final Res ult Performing Organization Address [facility] de Phone Number POWERCHART * [...] Laterality Modality Echocardiography 06/13/2015 7:57 AM CDT [facility] Provider CV ECHO PROCEDURES Final Res ult [...] 3.5 PGML POWERCHART Comment: Test Performed by: [place] [address] Cold Storage Supervisor: Raúl Loyola II, M.D., Ph.D. Blood 08/29/2014 9:34 AM CDT us Braulio Simmons M.D. LAB BLOOD ADD-ON Final Result Performing Organization Address [facility] de Phone Number POWERCHART * T4 (Thyroxine), Free (08/29/2014 9:34 AM CDT) T4 (Thyroxine), Free, S 0.92 0.90 - 1.70 NGDL POWERCHART Blood 08/29/2014 9:34 AM CDT us Braulio Simmons M.D. LAB BLOOD ADD-ON Final Result Performing Organization Address [facility] de Phone Number POWERCHART * Ferritin (08/15/2014 7:52 AM CDT) Ferritin, S 42.8 11.0 - 307.0 NGML POWERCHART Blood 08/15/2014 7:52 AM CDT us Tariq Estrella M.D. LAB BLOOD ADD-ON Final Res ult Performing Organization Address [facility] de Phone Number POWERCHART * Echo Transthoracic (TTE) (08/03/2014 9:15 AM CDT) Anatomical Region Laterality Modality Echocardiography 08/03/2014 9:15 AM CDT us Historical Provider CV ECHO PROCEDURES Edited Re sult [...] Mild pulmonary edema or interstitial infection. Keri Ramirez RHowieT.(R), R.T.(MR) IMG DIAGNOSTIC IMAGING PROCEDURES Edited Result [...] (HCC) 12/30/2021 Atrial Fibrillation Unspecified (HCC) 01/06/2022 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) Anticoagulant Treatment 01/06/2022 Atrial Fibrillation Unspecified (HCC) 01/07/2022 Monitoring For Therapeutic Drug Therapy 01/07/2022 Alf (Current) Anticoagulant Treatment 01/07/2022 Atrial Fibrillation Unspecified (HCC) 01/12/2022 Monitoring For Therapeutic Drug Therapy 01/12/2022 Alf (Current) Anticoagulant Treatment 01/12/2022 Atrial Fibrillation Unspecified (HCC) 01/12/2022 Monitoring For Therapeutic Drug Therapy 01/12/2022 Alf (Current) Anticoagulant Treatment 01/12/2022 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 01/14/2022 Radiculopathy Lumbosacral 01/14/2022 Atrial Fibrillation Unspecified (HCC) 01/15/2022 Monitoring For Therapeutic Drug Therapy 01/15/2022 Alf (Current) Anticoagulant Treatment 01/15/2022 Atrial Fibrillation Unspecified (HCC) 01/15/2022 Monitoring For Therapeutic Drug Therapy 01/15/2022 Alf (Current) Anticoagulant Treatment 01/15/2022 Atrial Fibrillation Unspecified (HCC) 01/16/2022 Monitoring For Therapeutic Drug Therapy 01/16/2022 Alf (Current) Anticoagulant Treatment 01/16/2022 Atrial Fibrillation Unspecified (HCC) 01/23/2022 Monitoring For Therapeutic Drug Therapy 01/23/2022 Alf (Current) Anticoagulant Treatment 01/23/2022 Atrial Fibrillation Unspecified (HCC) 01/23/2022 Monitoring For Therapeutic Drug Therapy 01/23/2022 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) Anticoagulant Treatment 01/23/2022 Atrial Fibrillation Unspecified (HCC) 02/02/2022 Monitoring For Therapeutic Drug Therapy 02/02/2022 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) Anticoagulant Treatment 02/02/2022 Atrial Fibrillation Unspecified (HCC) 02/02/2022 Monitoring For Therapeutic Drug Therapy 02/02/2022 Alf (Current) Anticoagulant Treatment 02/02/2022 Atrial Fibrillation Unspecified (HCC) 02/03/2022 Monitoring For Therapeutic Drug Therapy 02/03/2022 Alf (Current) Anticoagulant Treatment 02/03/2022 Atrial Fibrillation Unspecified (HCC) 02/06/2022 Monitoring For Therapeutic Drug Therapy 02/06/2022 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) Anticoagulant Treatment 02/06/2022 Atrial Fibrillation Unspecified (HCC) 02/09/2022 Monitoring For Therapeutic Drug Therapy 02/09/2022 Alf (Current) Anticoagulant Treatment 02/09/2022 Atrial Fibrillation Unspecified (HCC) 02/13/2022 Monitoring For Therapeutic Drug Therapy 02/13/2022 Alf (Current) Anticoagulant Treatment 02/13/2022 Atrial Fibrillation Unspecified (HCC) 02/13/2022 Monitoring For Therapeutic Drug Therapy 02/13/2022 Alf (Current) Anticoagulant Treatment 02/13/2022 Atrial Fibrillation Unspecified (HCC) 02/20/2022 Monitoring For Therapeutic Drug Therapy 02/20/2022 Alf (Current) Anticoagulant Treatment 02/20/2022 Atrial Fibrillation Unspecified (HCC) 02/20/2022 Monitoring For Therapeutic Drug Therapy 02/20/2022 Alf (Current) Anticoagulant Treatment 02/20/2022 Atrial Fibrillation Unspecified (HCC) 03/06/2022 Monitoring For Therapeutic Drug Therapy 03/06/2022 Alf (Current) Anticoagulant Treatment 03/06/2022 Atrial Fibrillation Unspecified (HCC) 03/06/2022 Monitoring For Therapeutic Drug Therapy 03/06/2022 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) Anticoagulant Treatment 03/06/2022 Atrial Fibrillation Unspecified (HCC) 03/16/2022 Monitoring For Therapeutic Drug Therapy 03/16/2022 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) Anticoagulant Treatment 03/16/2022 Atrial Fibrillation Unspecified (HCC) 03/16/2022 Monitoring For Therapeutic Drug Therapy 03/16/2022 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) Anticoagulant Treatment 03/16/2022 Atrial Fibrillation Unspecified (HCC) 03/24/2022 Monitoring For Therapeutic Drug Therapy 03/24/2022 Alf (Current) Anticoagulant Treatment 03/24/2022 Atrial Fibrillation Unspecified (HCC) 03/24/2022 Monitoring For Therapeutic Drug Therapy 03/24/2022 Alf (Current) Anticoagulant Treatment 03/24/2022 Atrial Fibrillation Unspecified (HCC) 03/27/2022 Monitoring For Therapeutic Drug Therapy 03/27/2022 Alf (Current) Anticoagulant Treatment 03/27/2022 Atrial Fibrillation Unspecified (HCC) 03/31/2022 Monitoring For Therapeutic Drug Therapy 03/31/2022 Alf (Current) Anticoagulant Treatment 03/31/2022 Atrial Fibrillation Unspecified (HCC) 03/31/2022 Monitoring For Therapeutic Drug Therapy 03/31/2022 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) Anticoagulant Treatment 03/31/2022 Atrial Fibrillation Unspecified (HCC) 04/07/2022 Monitoring For Therapeutic Drug Therapy 04/07/2022 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) Anticoagulant Treatment 04/07/2022 Atrial Fibrillation Unspecified (HCC) 04/07/2022 Monitoring For Therapeutic Drug Therapy 04/07/2022 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) Anticoagulant Treatment 04/07/2022 Atrial Fibrillation Other Persistent (HCC) 04/07/2022 Atrial Fibrillation Unspecified (HCC) 04/21/2022 Atrial Fibrillation Unspecified (HCC) 04/21/2022 Monitoring For Therapeutic Drug Therapy 04/21/2022 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) Anticoagulant Treatment 04/21/2022 Atrial Fibrillation Unspecified (HCC) 04/21/2022 Monitoring For Therapeutic Drug Therapy 04/21/2022 Alf (Current) Anticoagulant Treatment 04/21/2022 Atrial Fibrillation Unspecified (HCC) 04/28/2022 Monitoring For Therapeutic Drug Therapy 04/28/2022 Alf (Current) Anticoagulant Treatment 04/28/2022 Atrial Fibrillation Unspecified (HCC) 04/28/2022 Monitoring For Therapeutic Drug Therapy 04/28/2022 Alf (Current) Anticoagulant Treatment 04/28/2022 Atrial Fibrillation Unspecified (HCC) 04/29/2022 Monitoring For Therapeutic Drug Therapy 04/29/2022 Alf (Current) Anticoagulant Treatment 04/29/2022 Deficiency Estrogen Post Menopausal 05/12/2022 Atrial Fibrillation Unspecified (HCC) 05/12/2022 Monitoring For Therapeutic Drug Therapy 05/12/2022 Alf (Current) Anticoagulant Treatment 05/12/2022 Atrial Fibrillation Unspecified (HCC) 05/12/2022 Monitoring For Therapeutic Drug Therapy 05/12/2022 Alf (Current) Anticoagulant Treatment 05/12/2022 Cardiomyopathy Dilated (HCC) 06/01/2022 Atrial Fibrillation Unspecified (HCC) 06/03/2022 Alf (Current) Anticoagulant Treatment 06/03/2022 Cardiomyopathy Dilated (HCC) 06/03/2022 Hyperlipidemia On Treatment 06/03/2022 Hypertensive Heart With Heart Failure And Chronic Kidney Disease (CKD) Stage 3a Glomerular Filtration Rate (GFR) 45 To 59 (HCC) 06/03/2022 Atrial Fibrillation Unspecified (HCC) 06/09/2022 Monitoring For Therapeutic Drug Therapy 06/09/2022 Alf (Current) Anticoagulant Treatment 06/09/2022 Atrial Fibrillation Unspecified (HCC) 06/09/2022 Monitoring For Therapeutic Drug Therapy 06/09/2022 Alf (Current) Anticoagulant Treatment 06/09/2022 Atrial Fibrillation Unspecified (HCC) 06/15/2022 Monitoring For Therapeutic Drug Therapy 06/15/2022 Alf (Current) Anticoagulant Treatment 06/15/2022 Atrial Fibrillation Unspecified (HCC) 06/15/2022 Monitoring For Therapeutic Drug Therapy 06/15/2022 Alf (Current) Anticoagulant Treatment 06/15/2022 Atrial Fibrillation Unspecified (HCC) 06/19/2022 Monitoring For Therapeutic Drug Therapy 06/19/2022 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) Anticoagulant Treatment 06/19/2022 Atrial Fibrillation Unspecified (HCC) 06/19/2022 Monitoring For Therapeutic Drug Therapy 06/19/2022 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) Anticoagulant Treatment 06/19/2022 Atrial Fibrillation Unspecified (HCC) 06/29/2022 Monitoring For Therapeutic Drug Therapy 06/29/2022 Alf (Current) Anticoagulant Treatment 06/29/2022 Atrial Fibrillation Unspecified (HCC) 06/29/2022 Monitoring For Therapeutic Drug Therapy 06/29/2022 Alf (Current) Anticoagulant Treatment 06/29/2022 Atrial Fibrillation Unspecified (HCC) 07/27/2022 Monitoring For Therapeutic Drug Therapy 07/27/2022 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) Anticoagulant Treatment 07/27/2022 Atrial Fibrillation Unspecified (HCC) 07/27/2022 Monitoring For Therapeutic Drug Therapy 07/27/2022 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) Anticoagulant Treatment 07/27/2022 Atrial Fibrillation Unspecified (HCC) 08/07/2022 Monitoring For Therapeutic Drug Therapy 08/07/2022 Alf (Current) Anticoagulant Treatment 08/07/2022 Atrial Fibrillation Unspecified (HCC) 08/10/2022 Monitoring For Therapeutic Drug Therapy 08/10/2022 Alf (Current) Anticoagulant Treatment 08/10/2022 Atrial Fibrillation Unspecified (HCC) 08/10/2022 Monitoring For Therapeutic Drug Therapy 08/10/2022 Alf (Current) Anticoagulant Treatment 08/10/2022 Monitoring For Therapeutic Drug Therapy 08/12/2022 Laceration Blood Vessel Left Index Finger Sequela 08/31/2022 Atrial Fibrillation Paroxysmal (HCC) 09/01/2022 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) Anticoagulant Treatment 09/01/2022 Bradycardia 09/01/2022 Cardiomyopathy Dilated (HCC) 09/01/2022 Hypertensive Heart With Heart Failure And Chronic Kidney Disease (CKD) Stage 3a Glomerular Filtration Rate (GFR) 45 To 59 (HCC) 09/01/2022 Atrial Fibrillation Unspecified (HCC) 09/03/2022 Monitoring For Therapeutic Drug Therapy 09/03/2022 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) Anticoagulant Treatment 09/03/2022 Atrial Fibrillation Paroxysmal (HCC) 09/03/2022 Monitoring For Therapeutic Drug Therapy 09/03/2022 Alf (Current) Anticoagulant Treatment 09/03/2022 Hypertensive Heart With Heart Failure And Chronic Kidney Disease (CKD) Stage 3a Glomerular Filtration Rate (GFR) 45 To 59 (HCC) 09/17/2022 Monitoring For Therapeutic Drug Therapy 09/17/2022 Atrial Fibrillation Paroxysmal (HCC) 09/17/2022 Monitoring For Therapeutic Drug Therapy 09/17/2022 Atrial Fibrillation Paroxysmal (HCC) 09/17/2022 Monitoring For Therapeutic Drug Therapy 09/17/2022 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) Anticoagulant Treatment 09/17/2022 Atrial Fibrillation Paroxysmal (HCC) 10/01/2022 Monitoring For Therapeutic Drug Therapy 10/01/2022 Alf (Current) Anticoagulant Treatment 10/01/2022 Atrial Fibrillation Paroxysmal (HCC) 10/02/2022 Alf (Current) Anticoagulant Treatment 10/02/2022 Monitoring For Therapeutic Drug Therapy 10/02/2022 Atrial Fibrillation Paroxysmal (HCC) 10/02/2022 Monitoring For Therapeutic Drug Therapy 10/02/2022 Alf (Current) Anticoagulant Treatment 10/02/2022 Atrial Fibrillation Paroxysmal (HCC) 10/12/2022 Monitoring For Therapeutic Drug Therapy 10/12/2022 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) Anticoagulant Treatment 10/12/2022 Hypertensive Heart With Heart Failure And Chronic Kidney Disease (CKD) Stage 3a Glomerular Filtration Rate (GFR) 45 To 59 (HCC) 10/12/2022 Atrial Fibrillation Paroxysmal (HCC) 10/12/2022 Monitoring For Therapeutic Drug Therapy 10/12/2022 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) Anticoagulant Treatment 10/12/2022 Atrial Fibrillation Paroxysmal (HCC) 10/21/2022 Monitoring For Therapeutic Drug Therapy 10/21/2022 Alf (Current) Anticoagulant Treatment 10/21/2022 Atrial Fibrillation Paroxysmal (HCC) 10/27/2022 Monitoring For Therapeutic Drug Therapy 10/27/2022 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) Anticoagulant Treatment 10/27/2022 Atrial Fibrillation Paroxysmal (HCC) 10/28/2022 Monitoring For Therapeutic Drug Therapy 10/28/2022 Alf (Current) Anticoagulant Treatment 10/28/2022 Atrial Fibrillation Paroxysmal (HCC) 11/04/2022 Monitoring For Therapeutic Drug Therapy 11/04/2022 Alf (Current) Anticoagulant Treatment 11/04/2022 Atrial Fibrillation Paroxysmal (HCC) 11/04/2022 Monitoring For Therapeutic Drug Therapy 11/04/2022 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) Anticoagulant Treatment 11/04/2022 Atrial Fibrillation Paroxysmal (HCC) 11/10/2022 Monitoring For Therapeutic Drug Therapy 11/10/2022 Alf (Current) Anticoagulant Treatment 11/10/2022 Atrial Fibrillation Paroxysmal (HCC) 11/10/2022 Monitoring For Therapeutic Drug Therapy 11/10/2022 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) Anticoagulant Treatment 11/10/2022 Atrial Fibrillation Paroxysmal (HCC) 11/17/2022 Monitoring For Therapeutic Drug Therapy 11/17/2022 Alf (Current) Anticoagulant Treatment 11/17/2022 Atrial Fibrillation Paroxysmal (HCC) 11/17/2022 Monitoring For Therapeutic Drug Therapy 11/17/2022 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) Anticoagulant Treatment 11/17/2022 Atrial Fibrillation Paroxysmal (HCC) 12/15/2022 Monitoring For Therapeutic Drug Therapy 12/15/2022 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) Anticoagulant Treatment 12/15/2022 Hypertensive Heart With Heart Failure And Chronic Kidney Disease (CKD) Stage 3a Glomerular Filtration Rate (GFR) 45 To 59 (HCC) 12/15/2022 Atrial Fibrillation Paroxysmal (HCC) 12/15/2022 Monitoring For Therapeutic Drug Therapy 12/15/2022 Alf (Current) Anticoagulant Treatment 12/15/2022 Atrial Fibrillation Paroxysmal (HCC) 01/26/2023 Monitoring For Therapeutic Drug Therapy 01/26/2023 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) Anticoagulant Treatment 01/26/2023 Atrial Fibrillation Paroxysmal (HCC) 01/26/2023 Monitoring For Therapeutic Drug Therapy 01/26/2023 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) Anticoagulant Treatment 01/26/2023 Atrial Fibrillation Paroxysmal (HCC) 02/02/2023 Monitoring For Therapeutic Drug Therapy 02/02/2023 Alf (Current) Anticoagulant Treatment 02/02/2023 Atrial Fibrillation Paroxysmal (HCC) 02/02/2023 Monitoring For Therapeutic Drug Therapy 02/02/2023 Alf (Current) Anticoagulant Treatment 02/02/2023 Atrial Fibrillation Paroxysmal (HCC) 02/16/2023 Monitoring For Therapeutic Drug Therapy 02/16/2023 Alf (Current) Anticoagulant Treatment 02/16/2023 Atrial Fibrillation Paroxysmal (HCC) 02/16/2023 Monitoring For Therapeutic Drug Therapy 02/16/2023 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) Anticoagulant Treatment 02/16/2023 Atrial Fibrillation Paroxysmal (HCC) 02/24/2023 Monitoring For Therapeutic Drug Therapy 02/24/2023 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) Anticoagulant Treatment 02/24/2023 COVID-19 Infection 02/24/2023 ERRONEOUS ENCOUNTER--DISREGARD 02/24/2023 Atrial Fibrillation Paroxysmal (HCC) 02/25/2023 Monitoring For Therapeutic Drug Therapy 02/25/2023 Alf (Current) Anticoagulant Treatment 02/25/2023 Atrial Fibrillation Paroxysmal (HCC) 03/05/2023 Monitoring For Therapeutic Drug Therapy 03/05/2023 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) Anticoagulant Treatment 03/05/2023 Atrial Fibrillation Paroxysmal (HCC) 03/05/2023 Monitoring For Therapeutic Drug Therapy 03/05/2023 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) Anticoagulant Treatment 03/05/2023 Hypertensive Heart With Heart Failure And Chronic Kidney Disease (CKD) Stage 3a Glomerular Filtration Rate (GFR) 45 To 59 (HCC) 03/05/2023 Hyperlipidemia On Treatment 03/05/2023 Atrial Fibrillation Paroxysmal (HCC) 03/09/2023 Monitoring For Therapeutic Drug Therapy 03/09/2023 Alf (Current) Anticoagulant Treatment 03/09/2023 Hypertensive Heart With Heart Failure And Chronic Kidney Disease (CKD) Stage 3a Glomerular Filtration Rate (GFR) 45 To 59 (HCC) 03/09/2023 Hyperlipidemia On Treatment 03/09/2023 Atrial Fibrillation Paroxysmal (HCC) 03/09/2023 Monitoring For Therapeutic Drug Therapy 03/09/2023 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) Anticoagulant Treatment 03/09/2023 Atrial Fibrillation Paroxysmal (HCC) 03/12/2023 Monitoring For Therapeutic Drug Therapy 03/12/2023 Alf (Current) Anticoagulant Treatment 03/12/2023 Hypertensive Heart With Heart Failure And Chronic Kidney Disease (CKD) Stage 3a Glomerular Filtration Rate (GFR) 45 To 59 (HCC) 03/12/2023 Hyperlipidemia On Treatment 03/12/2023 Atrial Fibrillation Paroxysmal (HCC) 03/12/2023 Monitoring For Therapeutic Drug Therapy 03/12/2023 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) Anticoagulant Treatment 03/12/2023 Hypertensive Heart With Heart Failure And Chronic Kidney Disease (CKD) Stage 3a Glomerular Filtration Rate (GFR) 45 To 59 (HCC) 03/19/2023 Hyperlipidemia On Treatment 03/19/2023 Atrial Fibrillation Paroxysmal (HCC) 03/19/2023 Monitoring For Therapeutic Drug Therapy 03/19/2023 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) Anticoagulant Treatment 03/19/2023 Hypertensive Heart [...] 04/02/2023 Monitoring For Therapeutic Drug Therapy 04/02/2023 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) Anticoagulant Treatment 04/02/2023 Hypertensive Heart With Heart Failure And Chronic Kidney Disease (CKD) Stage 3a Glomerular Filtration Rate (GFR) 45 To 59 (HCC) 04/02/2023 Hyperlipidemia On Treatment 04/02/2023 Atrial Fibrillation Paroxysmal (HCC) 04/02/2023 Monitoring For Therapeutic Drug Therapy 04/02/2023 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) Anticoagulant Treatment 04/02/2023 Hypertensive Heart With [...] 04/30/2023 Monitoring For Therapeutic Drug Therapy 04/30/2023 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) Anticoagulant Treatment 04/30/2023 Hypertensive Heart With Heart Failure And Chronic Kidney Disease (CKD) Stage 3a Glomerular Filtration Rate (GFR) 45 To 59 (HCC) 04/30/2023 Hyperlipidemia On Treatment 04/30/2023 Atrial Fibrillation Paroxysmal (HCC) 04/30/2023 Monitoring For Therapeutic Drug Therapy 04/30/2023 Alf (Current) Anticoagulant Treatment 04/30/2023 Hypertensive Heart With Heart Failure And Chronic Kidney Disease (CKD) Stage 3a Glomerular Filtration Rate (GFR) 45 To 59 (HCC) 05/07/2023 Hyperlipidemia On Treatment 05/07/2023 Atrial Fibrillation Paroxysmal (HCC) 05/07/2023 Monitoring For Therapeutic Drug Therapy 05/07/2023 Alf (Current) Anticoagulant Treatment 05/07/2023 Hypertensive Heart With Heart Failure And Chronic Kidney Disease (CKD) Stage 3a Glomerular Filtration Rate (GFR) 45 To 59 (HCC) 05/07/2023 Hyperlipidemia On Treatment 05/07/2023 Atrial Fibrillation Paroxysmal (HCC) 05/07/2023 Monitoring For Therapeutic Drug Therapy 05/07/2023 Alf (Current) Anticoagulant Treatment 05/07/2023 Atrial Fibrillation Paroxysmal (HCC) 05/21/2023 Hypertensive Heart With Heart Failure And Chronic Kidney Disease (CKD) Stage 3a Glomerular Filtration Rate (GFR) 45 To 59 (HCC) 05/21/2023 Hyperlipidemia On Treatment 05/21/2023 Atrial Fibrillation Paroxysmal (HCC) 05/21/2023 Monitoring For Therapeutic Drug Therapy 05/21/2023 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) Anticoagulant Treatment 05/21/2023 Hypertensive Heart With Heart Failure And Chronic Kidney Disease (CKD) Stage 3a Glomerular Filtration Rate (GFR) 45 To 59 (HCC) 05/27/2023 Hyperlipidemia On Treatment 05/27/2023 Atrial Fibrillation Paroxysmal (HCC) 05/27/2023 Monitoring For Therapeutic Drug Therapy 05/27/2023 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) Anticoagulant Treatment 05/27/2023 Hypertensive Heart With Heart Failure And Chronic Kidney Disease (CKD) Stage 3a Glomerular Filtration Rate (GFR) 45 To 59 (HCC) 05/27/2023 Hyperlipidemia On Treatment 05/27/2023 Atrial Fibrillation Paroxysmal (HCC) 05/27/2023 Monitoring For Therapeutic Drug Therapy 05/27/2023 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) Anticoagulant Treatment 05/27/2023 Hypertensive Heart With Heart Failure And Chronic Kidney Disease (CKD) Stage 3a Glomerular Filtration Rate (GFR) 45 To 59 (HCC) 06/03/2023 Hyperlipidemia On Treatment 06/03/2023 Atrial Fibrillation Paroxysmal (HCC) 06/03/2023 Monitoring For Therapeutic Drug Therapy 06/03/2023 Alf (Current) Anticoagulant Treatment 06/03/2023 Hypertensive Heart With Heart Failure And Chronic Kidney Disease (CKD) Stage 3a Glomerular Filtration Rate (GFR) 45 To 59 (HCC) 06/03/2023 Hyperlipidemia On Treatment 06/03/2023 Atrial Fibrillation Paroxysmal (HCC) 06/03/2023 Monitoring For Therapeutic Drug Therapy 06/03/2023 Alf (Current) Anticoagulant Treatment 06/03/2023 Atrial Fibrillation Paroxysmal (HCC) 06/22/2023 Hypertensive Heart With Heart Failure And Chronic Kidney Disease (CKD) Stage 3a Glomerular Filtration Rate (GFR) 45 To 59 (HCC) 06/22/2023 Hyperlipidemia On Treatment 06/22/2023 Atrial Fibrillation Paroxysmal (HCC) 06/22/2023 Monitoring For Therapeutic Drug Therapy 06/22/2023 Alf (Current) Anticoagulant Treatment 06/22/2023 Atrial Fibrillation Unspecified (HCC) 06/22/2023 Atrial Fibrillation Paroxysmal (HCC) 06/22/2023 Alf (Current) Anticoagulant Treatment 06/22/2023 Monitoring For Therapeutic [...] 06/24/2023 Monitoring For Therapeutic Drug Therapy 06/24/2023 Alf (Current) Anticoagulant Treatment 06/24/2023 Hypertensive Heart With [...] 07/06/2023 Monitoring For Therapeutic Drug Therapy 07/06/2023 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) Anticoagulant Treatment 07/06/2023 Atrial Fibrillation Paroxysmal (HCC) 07/06/2023 Hypertensive Heart With Heart Failure And Chronic Kidney Disease (CKD) Stage 3a Glomerular Filtration Rate (GFR) 45 To 59 (HCC) 07/06/2023 Hyperlipidemia On Treatment 07/06/2023 Monitoring For Therapeutic Drug Therapy 07/06/2023 Alf (Current) Anticoagulant Treatment 07/06/2023 Hypertensive Heart With Heart Failure And Chronic Kidney Disease (CKD) Stage 3a Glomerular Filtration Rate (GFR) 45 To 59 (HCC) 08/05/2023 Hyperlipidemia On Treatment 08/05/2023 Atrial Fibrillation Paroxysmal (HCC) 08/05/2023 Monitoring For Therapeutic Drug Therapy 08/05/2023 Alf (Current) Anticoagulant Treatment 08/05/2023 Hypertensive Heart With Heart Failure And Chronic Kidney Disease (CKD) Stage 3a Glomerular Filtration Rate (GFR) 45 To 59 (HCC) 08/06/2023 Hyperlipidemia On Treatment 08/06/2023 Atrial Fibrillation Paroxysmal (HCC) 08/06/2023 Monitoring For Therapeutic Drug Therapy 08/06/2023 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) Anticoagulant Treatment 08/06/2023 Hypertensive Heart With Heart Failure And Chronic Kidney Disease (CKD) Stage 3a Glomerular Filtration Rate (GFR) 45 To 59 (HCC) 08/13/2023 Hyperlipidemia On Treatment 08/13/2023 Atrial Fibrillation Paroxysmal (HCC) 08/13/2023 Monitoring For Therapeutic Drug Therapy 08/13/2023 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) Anticoagulant Treatment 08/13/2023 Hypertensive Heart With Heart Failure And Chronic Kidney Disease (CKD) Stage 3a Glomerular Filtration Rate (GFR) 45 To 59 (HCC) 08/16/2023 Hyperlipidemia On Treatment 08/16/2023 Atrial Fibrillation Paroxysmal (HCC) 08/16/2023 Monitoring For Therapeutic Drug Therapy 08/16/2023 Alf (Current) Anticoagulant Treatment 08/16/2023 Hypertensive Heart With Heart Failure And Chronic Kidney Disease (CKD) Stage 3a Glomerular Filtration Rate (GFR) 45 To 59 (HCC) 08/17/2023 Hyperlipidemia On Treatment 08/17/2023 Atrial Fibrillation Paroxysmal (HCC) 08/17/2023 Monitoring For Therapeutic Drug Therapy 08/17/2023 Alf (Current) Anticoagulant Treatment 08/17/2023 Hypertensive Heart With Heart Failure And Chronic Kidney Disease (CKD) Stage 3a Glomerular Filtration Rate (GFR) 45 To 59 (HCC) 08/24/2023 Hyperlipidemia On Treatment 08/24/2023 Atrial Fibrillation Paroxysmal (HCC) 08/24/2023 Monitoring For Therapeutic Drug Therapy 08/24/2023 Alf (Current) Anticoagulant Treatment 08/24/2023 Hypertensive Heart With Heart Failure And Chronic Kidney Disease (CKD) Stage 3a Glomerular Filtration Rate (GFR) 45 To 59 (HCC) 08/24/2023 Hyperlipidemia On Treatment 08/24/2023 Atrial Fibrillation Paroxysmal (HCC) 08/24/2023 Monitoring For Therapeutic Drug Therapy 08/24/2023 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) Anticoagulant Treatment 08/24/2023 Hypertensive Heart With Heart Failure And Chronic Kidney Disease (CKD) Stage 3a Glomerular Filtration Rate (GFR) 45 To 59 (HCC) 08/27/2023 Hyperlipidemia On Treatment 08/27/2023 Atrial Fibrillation Paroxysmal (HCC) 08/27/2023 Monitoring For Therapeutic Drug Therapy 08/27/2023 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) Anticoagulant Treatment 08/27/2023 Hypertensive Heart With Heart Failure And Chronic Kidney Disease (CKD) Stage 3a Glomerular Filtration Rate (GFR) 45 To 59 (HCC) 08/27/2023 Hyperlipidemia On Treatment 08/27/2023 Atrial Fibrillation Paroxysmal (HCC) 08/27/2023 Monitoring For Therapeutic Drug Therapy 08/27/2023 Alf (Current) Anticoagulant Treatment 08/27/2023 Hypertensive Heart With Heart Failure And Chronic Kidney Disease (CKD) Stage 3a Glomerular Filtration Rate (GFR) 45 To 59 (HCC) 09/02/2023 Hyperlipidemia On Treatment 09/02/2023 Atrial Fibrillation Paroxysmal (HCC) 09/02/2023 Monitoring For Therapeutic Drug Therapy 09/02/2023 Alf (Current) Anticoagulant Treatment 09/02/2023 Hypertensive Heart With Heart Failure And Chronic Kidney Disease (CKD) Stage 3a Glomerular Filtration Rate (GFR) 45 To 59 (HCC) 09/02/2023 Hyperlipidemia On Treatment 09/02/2023 Atrial Fibrillation Paroxysmal (HCC) 09/02/2023 Monitoring For Therapeutic Drug Therapy 09/02/2023 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) Anticoagulant Treatment 09/02/2023 Hypertensive Heart With Heart Failure And Chronic Kidney Disease (CKD) Stage 3a Glomerular Filtration Rate (GFR) 45 To 59 (HCC) 09/08/2023 Hyperlipidemia On Treatment 09/08/2023 Atrial Fibrillation Paroxysmal (HCC) 09/08/2023 Monitoring For Therapeutic Drug Therapy 09/08/2023 Alf (Current) Anticoagulant Treatment 09/08/2023 Hypertensive Heart With Heart Failure And Chronic Kidney Disease (CKD) Stage 3a Glomerular Filtration Rate (GFR) 45 To 59 (HCC) 09/08/2023 Hyperlipidemia On Treatment 09/08/2023 Atrial Fibrillation Paroxysmal (HCC) 09/08/2023 Monitoring For Therapeutic Drug Therapy 09/08/2023 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) Anticoagulant Treatment 09/08/2023 Hypertensive Heart With Heart Failure And Chronic Kidney Disease (CKD) Stage 3a Glomerular Filtration Rate (GFR) 45 To 59 (HCC) 09/14/2023 Hyperlipidemia On Treatment 09/14/2023 Atrial Fibrillation Paroxysmal (HCC) 09/14/2023 Monitoring For Therapeutic Drug Therapy 09/14/2023 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) Anticoagulant Treatment 09/14/2023 Hypertensive Heart With Heart Failure And Chronic Kidney Disease (CKD) Stage 3a Glomerular Filtration Rate (GFR) 45 To 59 (HCC) 09/14/2023 Hyperlipidemia On Treatment 09/14/2023 Atrial Fibrillation Paroxysmal (HCC) 09/14/2023 Monitoring For Therapeutic Drug Therapy 09/14/2023 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) Anticoagulant Treatment 09/14/2023 Hypertensive Heart With Heart Failure And Chronic Kidney Disease (CKD) Stage 3a Glomerular Filtration Rate (GFR) 45 To 59 (HCC) 09/21/2023 Hyperlipidemia On Treatment 09/21/2023 Atrial Fibrillation Paroxysmal (HCC) 09/21/2023 Monitoring For Therapeutic Drug Therapy 09/21/2023 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) Anticoagulant Treatment 09/21/2023 Hypertensive Heart With Heart Failure And Chronic Kidney Disease (CKD) Stage 3a Glomerular Filtration Rate (GFR) 45 To 59 (HCC) 09/21/2023 Hyperlipidemia On Treatment 09/21/2023 Atrial Fibrillation Paroxysmal (HCC) 09/21/2023 Monitoring For Therapeutic Drug Therapy 09/21/2023 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) Anticoagulant Treatment 09/21/2023 Hypertensive Heart With Heart Failure And Chronic Kidney Disease (CKD) Stage 3a Glomerular Filtration Rate (GFR) 45 To 59 (HCC) 09/24/2023 Hyperlipidemia On Treatment 09/24/2023 Atrial Fibrillation Paroxysmal (HCC) 09/24/2023 Monitoring For Therapeutic Drug Therapy 09/24/2023 Alf (Current) Anticoagulant Treatment 09/24/2023 Hypertensive Heart With Heart Failure And Chronic Kidney Disease (CKD) Stage 3a Glomerular Filtration Rate (GFR) 45 To 59 (HCC) 09/24/2023 Hyperlipidemia On Treatment 09/24/2023 Atrial Fibrillation Paroxysmal (HCC) 09/24/2023 Monitoring For Therapeutic Drug Therapy 09/24/2023 Alf (Current) Anticoagulant Treatment 09/24/2023 Hypertensive Heart With Heart Failure And Chronic Kidney Disease (CKD) Stage 3a Glomerular Filtration Rate (GFR) 45 To 59 (HCC) 10/01/2023 Hyperlipidemia On Treatment 10/01/2023 Atrial Fibrillation Paroxysmal (HCC) 10/01/2023 Monitoring For Therapeutic Drug Therapy 10/01/2023 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) Anticoagulant Treatment 10/01/2023 Hypertensive Heart And Chronic Kidney Disease With Heart Failure And Stage 1 To 4 Chronic Kidney Disease Or Unspecified Chronic Kidney Disease (HCC) 10/04/2023 Hyperlipidemia On Treatment 10/04/2023 Atrial Fibrillation Paroxysmal (HCC) 10/04/2023 Monitoring For Therapeutic Drug Therapy 10/04/2023 Alf (Current) Anticoagulant Treatment 10/04/2023 Atrial Fibrillation Paroxysmal (HCC) 10/07/2023 Hypertensive Heart And Chronic Kidney Disease With Heart Failure And Stage 1 To 4 Chronic Kidney Disease Or Unspecified Chronic Kidney Disease (HCC) 10/08/2023 Hyperlipidemia On Treatment 10/08/2023 Atrial Fibrillation Paroxysmal (HCC) 10/08/2023 Monitoring For Therapeutic Drug Therapy 10/08/2023 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) Anticoagulant Treatment 10/08/2023 Hypertensive Heart And Chronic Kidney Disease With Heart Failure And Stage 1 To 4 Chronic Kidney Disease Or Unspecified Chronic Kidney Disease (HCC) 10/15/2023 Hyperlipidemia On Treatment 10/15/2023 Atrial Fibrillation Paroxysmal (HCC) 10/15/2023 Monitoring For Therapeutic Drug Therapy 10/15/2023 Alf (Current) Anticoagulant Treatment 10/15/2023 Hypertensive Heart And Chronic Kidney Disease With Heart Failure And Stage 1 To 4 Chronic Kidney Disease Or Unspecified Chronic Kidney Disease (HCC) 10/19/2023 Hyperlipidemia On Treatment 10/19/2023 Atrial Fibrillation Paroxysmal (HCC) 10/19/2023 Monitoring For Therapeutic Drug Therapy 10/19/2023 Alf (Current) Anticoagulant Treatment 10/19/2023 Hypertensive Heart And Chronic Kidney Disease With Heart Failure And Stage 1 To 4 Chronic Kidney Disease Or Unspecified Chronic Kidney Disease (HCC) 10/28/2023 Hyperlipidemia On Treatment 10/28/2023 Atrial Fibrillation Paroxysmal (HCC) 10/28/2023 Monitoring For Therapeutic Drug Therapy 10/28/2023 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) Anticoagulant Treatment 10/28/2023 Hypertensive Heart And Chronic Kidney Disease With Heart Failure And Stage 1 To 4 Chronic Kidney Disease Or Unspecified Chronic Kidney Disease (HCC) 10/28/2023 Hyperlipidemia On Treatment 10/28/2023 Atrial Fibrillation Paroxysmal (HCC) 10/28/2023 Monitoring For Therapeutic Drug Therapy 10/28/2023 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) Anticoagulant Treatment 10/28/2023 Hypertensive Heart And Chronic Kidney Disease With Heart Failure And Stage 1 To 4 Chronic Kidney Disease Or Unspecified Chronic Kidney Disease (HCC) 11/02/2023 Hyperlipidemia On Treatment 11/02/2023 Atrial Fibrillation Paroxysmal (HCC) 11/02/2023 Monitoring For Therapeutic Drug Therapy 11/02/2023 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) Anticoagulant Treatment 11/02/2023 Hypertensive Heart And Chronic Kidney Disease With Heart Failure And Stage 1 To 4 Chronic Kidney Disease Or Unspecified Chronic Kidney Disease (HCC) 11/02/2023 Hyperlipidemia On Treatment 11/02/2023 Atrial Fibrillation Paroxysmal (HCC) 11/02/2023 Monitoring For Therapeutic Drug Therapy 11/02/2023 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) Anticoagulant Treatment 11/02/2023 Hypertensive Heart And Chronic Kidney Disease With Heart Failure And Stage 1 To 4 Chronic Kidney Disease Or Unspecified Chronic Kidney Disease (HCC) 11/02/2023 Hyperlipidemia On Treatment 11/02/2023 Atrial Fibrillation Paroxysmal (HCC) 11/02/2023 Monitoring For Therapeutic Drug Therapy 11/02/2023 Alf (Current) Anticoagulant Treatment 11/02/2023 Atrial Fibrillation Paroxysmal (HCC) 11/12/2023 Monitoring For Therapeutic Drug Therapy 11/12/2023 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) Anticoagulant Treatment 11/12/2023 Hypertensive Heart And Chronic Kidney Disease With Heart Failure And Stage 1 To 4 Chronic Kidney Disease Or Unspecified Chronic Kidney Disease (HCC) 11/12/2023 Hyperlipidemia On Treatment 11/12/2023 Atrial Fibrillation Paroxysmal (HCC) 11/12/2023 Monitoring For Therapeutic Drug Therapy 11/12/2023 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) Anticoagulant Treatment 11/12/2023 Hypertensive Heart And Chronic Kidney Disease With Heart Failure And Stage 1 To 4 Chronic Kidney Disease Or Unspecified Chronic Kidney Disease (HCC) 11/22/2023 Hyperlipidemia On Treatment 11/22/2023 Atrial Fibrillation Paroxysmal (HCC) 11/22/2023 Monitoring For Therapeutic Drug Therapy 11/22/2023 Alf (Current) Anticoagulant Treatment 11/22/2023 Hypertensive Heart And Chronic Kidney Disease With Heart Failure And Stage 1 To 4 Chronic Kidney Disease Or Unspecified Chronic Kidney Disease (HCC) 11/22/2023 Hyperlipidemia On Treatment 11/22/2023 Atrial Fibrillation Paroxysmal (HCC) 11/22/2023 Monitoring For Therapeutic Drug Therapy 11/22/2023 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) Anticoagulant Treatment 11/22/2023 Hypertensive Heart And Chronic Kidney Disease With Heart Failure And Stage 1 To 4 Chronic Kidney Disease Or Unspecified Chronic Kidney Disease (HCC) 12/03/2023 Hyperlipidemia On Treatment 12/03/2023 Atrial Fibrillation Paroxysmal (HCC) 12/03/2023 Monitoring For Therapeutic Drug Therapy 12/03/2023 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) Anticoagulant Treatment 12/03/2023 Hypertensive Heart And Chronic Kidney Disease With Heart Failure And Stage 1 To 4 Chronic Kidney Disease Or Unspecified Chronic Kidney Disease (HCC) 12/03/2023 Hyperlipidemia On Treatment 12/03/2023 Atrial Fibrillation Paroxysmal (HCC) 12/03/2023 Monitoring For Therapeutic Drug Therapy 12/03/2023 Alf (Current) Anticoagulant Treatment 12/03/2023 Atrial Fibrillation Paroxysmal (HCC) 12/06/2023 Atrial Fibrillation Paroxysmal (HCC) 12/13/2023 Hypertensive Heart And Chronic Kidney Disease With Heart Failure And Stage 1 To 4 Chronic Kidney Disease Or Unspecified Chronic Kidney Disease (HCC) 12/14/2023 Hyperlipidemia On Treatment 12/14/2023 Atrial Fibrillation Paroxysmal (HCC) 12/14/2023 Monitoring For Therapeutic Drug Therapy 12/14/2023 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) Anticoagulant Treatment 12/14/2023 Hypertensive Heart And Chronic Kidney Disease With Heart Failure And Stage 1 To 4 Chronic Kidney Disease Or Unspecified Chronic Kidney Disease (HCC) 12/15/2023 Hyperlipidemia On Treatment 12/15/2023 Atrial Fibrillation Paroxysmal (HCC) 12/15/2023 Monitoring For Therapeutic Drug Therapy 12/15/2023 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) Anticoagulant Treatment 12/15/2023 Atrial Fibrillation Paroxysmal (HCC) 12/15/2023 Hypertensive Heart And Chronic Kidney Disease With Heart Failure And Stage 1 To 4 Chronic Kidney Disease Or Unspecified Chronic Kidney Disease (HCC) 12/17/2023 Hyperlipidemia On Treatment 12/17/2023 Atrial Fibrillation Paroxysmal (HCC) 12/17/2023 Monitoring For Therapeutic Drug Therapy 12/17/2023 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) Anticoagulant Treatment 12/17/2023 Hypertensive Heart And Chronic Kidney Disease With Heart Failure And Stage 1 To 4 Chronic Kidney Disease Or Unspecified Chronic Kidney Disease (HCC) 12/20/2023 Hyperlipidemia On Treatment 12/20/2023 Atrial Fibrillation Paroxysmal (HCC) 12/20/2023 Monitoring For Therapeutic Drug Therapy 12/20/2023 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) Anticoagulant Treatment 12/20/2023 Hypertensive Heart And Chronic Kidney Disease With Heart Failure And Stage 1 To 4 Chronic Kidney Disease Or Unspecified Chronic Kidney Disease (HCC) 12/20/2023 Hyperlipidemia On Treatment 12/20/2023 Atrial Fibrillation Paroxysmal (HCC) 12/20/2023 Monitoring For Therapeutic Drug Therapy 12/20/2023 [employer] Service Manager (Current) Anticoagulant Treatment 12/20/2023 Hypertensive Heart And Chronic Kidney Disease With Heart Failure And Stage 1 To 4 Chronic Kidney Disease Or Unspecified Chronic Kidney Disease (HCC) 12/24/2023 Hyperlipidemia On Treatment 12/24/2023 Atrial Fibrillation Paroxysmal (HCC) 12/24/2023 Monitoring For Therapeutic Drug Therapy 12/24/2023 [employer] Service Manager (Current) Anticoagulant Treatment 12/24/2023 Hypertensive Heart And Chronic Kidney Disease With Heart Failure And Stage 1 To 4 Chronic Kidney Disease Or Unspecified Chronic Kidney Disease (HCC) 12/24/2023 Hyperlipidemia On Treatment 12/24/2023 Atrial Fibrillation Paroxysmal (HCC) 12/24/2023 Monitoring For Therapeutic Drug Therapy 12/24/2023 Alf (Current) Anticoagulant Treatment 12/24/2023 Hypertensive Heart And [...] 12/28/2023 Monitoring For Therapeutic Drug Therapy 12/28/2023 Alf (Current) Anticoagulant Treatment 12/28/2023 Atrial Fibrillation Paroxysmal [...] 12/29/2023 Monitoring For Therapeutic Drug Therapy 12/29/2023 Alf (Current) Anticoagulant Treatment 12/29/2023 Hypertensive Heart And Chronic Kidney Disease With Heart Failure And Stage 1 To 4 Chronic Kidney Disease Or Unspecified Chronic Kidney Disease (HCC) 01/06/2024 Hyperlipidemia On Treatment 01/06/2024 Atrial Fibrillation Paroxysmal (HCC) 01/06/2024 Monitoring For Therapeutic Drug Therapy 01/06/2024 [employer] Service Manager (Current) Anticoagulant Treatment 01/06/2024 Hypertensive Heart And Chronic Kidney Disease With Heart Failure And Stage 1 To 4 Chronic Kidney Disease Or Unspecified Chronic Kidney Disease (HCC) 01/06/2024 Hyperlipidemia On Treatment 01/06/2024 Atrial Fibrillation Paroxysmal (HCC) 01/06/2024 Monitoring For Therapeutic Drug Therapy 01/06/2024 Alf (Current) Anticoagulant Treatment 01/06/2024 Hypertensive Heart And [...] 01/13/2024 Monitoring For Therapeutic Drug Therapy 01/13/2024 [employer] Service Manager (Current) Anticoagulant Treatment 01/13/2024 Hypertensive Heart And Chronic Kidney Disease With Heart Failure And Stage 1 To 4 Chronic Kidney Disease Or Unspecified Chronic Kidney Disease (HCC) 01/13/2024 Hyperlipidemia On Treatment 01/13/2024 Atrial Fibrillation Paroxysmal (HCC) 01/13/2024 Monitoring For Therapeutic Drug Therapy 01/13/2024 Alf (Current) Anticoagulant Treatment 01/13/2024 Hypertensive Heart And Chronic Kidney Disease With Heart Failure And Stage 1 To 4 Chronic Kidney Disease Or Unspecified Chronic Kidney Disease (HCC) 01/27/2024 Hyperlipidemia On Treatment 01/27/2024 Atrial Fibrillation Paroxysmal (HCC) 01/27/2024 Monitoring For Therapeutic Drug Therapy 01/27/2024 [employer] Service Manager (Current) Anticoagulant Treatment 01/27/2024 Hypertensive Heart And Chronic Kidney Disease With Heart Failure And Stage 1 To 4 Chronic Kidney Disease Or Unspecified Chronic Kidney Disease (HCC) 01/27/2024 Hyperlipidemia On Treatment 01/27/2024 Atrial Fibrillation Paroxysmal (HCC) 01/27/2024 Monitoring For Therapeutic Drug Therapy 01/27/2024 [employer] Service Manager (Current) Anticoagulant Treatment 01/27/2024 Hypertensive Heart And Chronic Kidney Disease With Heart Failure And Stage 1 To 4 Chronic Kidney Disease Or Unspecified Chronic Kidney Disease (HCC) 01/31/2024 Hyperlipidemia On Treatment 01/31/2024 Atrial Fibrillation Paroxysmal (HCC) 01/31/2024 Monitoring For Therapeutic Drug Therapy 01/31/2024 [employer] Service Manager (Current) Anticoagulant Treatment 01/31/2024 Hypertensive Heart And Chronic Kidney Disease With Heart Failure And Stage 1 To 4 Chronic Kidney Disease Or Unspecified Chronic Kidney Disease (HCC) 01/31/2024 Hyperlipidemia On Treatment 01/31/2024 Atrial Fibrillation Paroxysmal (HCC) 01/31/2024 Monitoring For Therapeutic Drug Therapy 01/31/2024 [employer] Service Manager (Current) Anticoagulant Treatment 01/31/2024 Hypertensive Heart And Chronic Kidney Disease With Heart Failure And Stage 1 To 4 Chronic Kidney Disease Or Unspecified Chronic Kidney Disease (HCC) 02/10/2024 Hyperlipidemia On Treatment 02/10/2024 Atrial Fibrillation Paroxysmal (HCC) 02/10/2024 Monitoring For Therapeutic Drug Therapy 02/10/2024 Alf (Current) Anticoagulant Treatment 02/10/2024 Hypertensive Heart And Chronic Kidney Disease With Heart Failure And Stage 1 To 4 Chronic Kidney Disease Or Unspecified Chronic Kidney Disease (HCC) 02/10/2024 Hyperlipidemia On Treatment 02/10/2024 Atrial Fibrillation Paroxysmal (HCC) 02/10/2024 Monitoring For Therapeutic Drug Therapy 02/10/2024 [employer] Service Manager (Current) Anticoagulant Treatment 02/10/2024 Hypertensive Heart [...] 02/18/2024 Monitoring For Therapeutic Drug Therapy 02/18/2024 Alf (Current) Anticoagulant Treatment 02/18/2024 Hypertensive Heart And Chronic Kidney Disease With Heart Failure And Stage 1 To 4 Chronic Kidney Disease Or Unspecified Chronic Kidney Disease (HCC) 02/18/2024 Hyperlipidemia On Treatment 02/18/2024 Atrial Fibrillation Paroxysmal (HCC) 02/18/2024 Monitoring For Therapeutic Drug Therapy 02/18/2024 [employer] Service Manager (Current) Anticoagulant Treatment 02/18/2024 Hypertensive Heart And Chronic Kidney Disease With Heart Failure And Stage 1 To 4 Chronic Kidney Disease Or Unspecified Chronic Kidney Disease (HCC) 02/24/2024 Hyperlipidemia On Treatment 02/24/2024 Atrial Fibrillation Paroxysmal (HCC) 02/24/2024 Monitoring For Therapeutic Drug Therapy 02/24/2024 [employer] Service Manager (Current) Anticoagulant Treatment 02/24/2024 Atrial Fibrillation Paroxysmal (HCC) 02/24/2024 Monitoring For Therapeutic Drug Therapy 02/24/2024 [employer] Service Manager (Current) Anticoagulant Treatment 02/24/2024 Hypertensive Heart And Chronic Kidney Disease With Heart Failure And Stage 1 To 4 Chronic Kidney Disease Or Unspecified Chronic Kidney Disease (HCC) 02/28/2024 Atrial Fibrillation Paroxysmal (HCC) 03/02/2024 Monitoring For Therapeutic Drug Therapy 03/02/2024 [employer] Service Manager (Current) Anticoagulant Treatment 03/02/2024 Hypertensive Heart And Chronic Kidney Disease With Heart Failure And Stage 1 To 4 Chronic Kidney Disease Or Unspecified Chronic Kidney Disease (HCC) 03/03/2024 Hyperlipidemia On Treatment 03/03/2024 Atrial Fibrillation Paroxysmal (HCC) 03/03/2024 Monitoring For Therapeutic Drug Therapy 03/03/2024 Alf (Current) Anticoagulant Treatment 03/03/2024 Hypertensive Heart And Chronic Kidney Disease With Heart Failure And Stage 1 To 4 Chronic Kidney Disease Or Unspecified Chronic Kidney Disease (HCC) 03/10/2024 Hyperlipidemia On Treatment 03/10/2024 Atrial Fibrillation Paroxysmal (HCC) 03/10/2024 Monitoring For Therapeutic Drug Therapy 03/10/2024 Alf (Current) Anticoagulant Treatment 03/10/2024 Hypertensive Heart And Chronic Kidney Disease With Heart Failure And Stage 1 To 4 Chronic Kidney Disease Or Unspecified Chronic Kidney Disease (HCC) 03/13/2024 Hyperlipidemia On Treatment 03/13/2024 Atrial Fibrillation Paroxysmal (HCC) 03/13/2024 Monitoring For Therapeutic Drug Therapy 03/13/2024 Alf (Current) Anticoagulant Treatment 03/13/2024 Hypertensive Heart And Chronic Kidney Disease With Heart Failure And Stage 1 To 4 Chronic Kidney Disease Or Unspecified Chronic Kidney Disease (HCC) 03/20/2024 Hyperlipidemia On Treatment 03/20/2024 Atrial Fibrillation Paroxysmal (HCC) 03/20/2024 Monitoring For Therapeutic Drug Therapy 03/20/2024 Armored Transport Service Manager (Current) Anticoagulant Treatment 03/20/2024 Hypertensive Heart And Chronic Kidney Disease With Heart Failure And Stage 1 To 4 Chronic Kidney Disease Or Unspecified Chronic Kidney Disease (HCC) 03/23/2024 Hyperlipidemia On Treatment 03/23/2024 Atrial Fibrillation Paroxysmal (HCC) 03/23/2024 Monitoring For Therapeutic Drug Therapy 03/23/2024 Alf (Current) Anticoagulant Treatment 03/23/2024 Hypertensive Heart And Chronic Kidney Disease With Heart Failure And Stage 1 To 4 Chronic Kidney Disease Or Unspecified Chronic Kidney Disease (HCC) 03/30/2024 Hyperlipidemia On Treatment 03/30/2024 Atrial Fibrillation Paroxysmal (HCC) 03/30/2024 Monitoring For Therapeutic Drug Therapy 03/30/2024 Armored Transport Service Manager (Current) Anticoagulant Treatment 03/30/2024 Hypertensive Heart And Chronic Kidney Disease With Heart Failure And Stage 1 To 4 Chronic Kidney Disease Or Unspecified Chronic Kidney Disease (HCC) 03/30/2024 Hyperlipidemia On Treatment 03/30/2024 Atrial Fibrillation Paroxysmal (HCC) 03/30/2024 Monitoring For Therapeutic Drug Therapy 03/30/2024 Armored Transport Service Manager (Current) Anticoagulant Treatment 03/30/2024 Hypertensive Heart And Chronic Kidney Disease With Heart Failure And Stage 1 To 4 Chronic Kidney Disease Or Unspecified Chronic Kidney Disease (HCC) 04/10/2024 Hyperlipidemia On Treatment 04/10/2024 Atrial Fibrillation Paroxysmal (HCC) 04/10/2024 Monitoring For Therapeutic Drug Therapy 04/10/2024 Alf (Current) Anticoagulant Treatment 04/10/2024 Hypertensive Heart And Chronic Kidney Disease With Heart Failure And Stage 1 To 4 Chronic Kidney Disease Or Unspecified Chronic Kidney Disease (HCC) 04/10/2024 Hyperlipidemia On Treatment 04/10/2024 Atrial Fibrillation Paroxysmal (HCC) 04/10/2024 Monitoring For Therapeutic Drug Therapy 04/10/2024 Alf (Current) Anticoagulant Treatment 04/10/2024 Hypertensive Heart And Chronic Kidney Disease With Heart Failure And Stage 1 To 4 Chronic Kidney Disease Or Unspecified Chronic Kidney Disease (HCC) 04/24/2024 Hyperlipidemia On Treatment 04/24/2024 Atrial Fibrillation Paroxysmal (HCC) 04/24/2024 Monitoring For Therapeutic Drug Therapy 04/24/2024 Alf (Current) Anticoagulant Treatment 04/24/2024 Hypertensive Heart And Chronic Kidney Disease With Heart Failure And Stage 1 To 4 Chronic Kidney Disease Or Unspecified Chronic Kidney Disease (HCC) 04/24/2024 Hyperlipidemia On Treatment 04/24/2024 Atrial Fibrillation Paroxysmal (HCC) 04/24/2024 Monitoring For Therapeutic Drug Therapy 04/24/2024 Alf (Current) Anticoagulant Treatment 04/24/2024 Atrial Fibrillation Paroxysmal (HCC) 04/28/2024 Monitoring For Therapeutic Drug Therapy 04/28/2024 Armored Transport Service Manager (Current) Anticoagulant Treatment 04/28/2024 Hypertensive Heart And Chronic Kidney Disease With Heart Failure And Stage 1 To 4 Chronic Kidney Disease Or Unspecified Chronic Kidney Disease (HCC) 04/28/2024 Hyperlipidemia On Treatment 04/28/2024 Atrial Fibrillation Paroxysmal (HCC) 04/28/2024 Monitoring For Therapeutic Drug Therapy 04/28/2024 Alf (Current) Anticoagulant Treatment 04/28/2024 Hypertensive Heart And Chronic Kidney Disease With Heart Failure And Stage 1 To 4 Chronic Kidney Disease Or Unspecified Chronic Kidney Disease (HCC) 05/09/2024 Hyperlipidemia On Treatment 05/09/2024 Atrial Fibrillation Paroxysmal (HCC) 05/09/2024 Monitoring For Therapeutic Drug Therapy 05/09/2024 Alf (Current) Anticoagulant Treatment 05/09/2024 Hypertensive Heart And Chronic Kidney Disease With Heart Failure And Stage 1 To 4 Chronic Kidney Disease Or Unspecified Chronic Kidney Disease (HCC) 05/09/2024 Hyperlipidemia On Treatment 05/09/2024 Atrial Fibrillation Paroxysmal (HCC) 05/09/2024 Monitoring For Therapeutic Drug Therapy 05/09/2024 Armored Transport Service Manager (Current) Anticoagulant Treatment 05/09/2024 Hypertensive Heart And Chronic Kidney Disease With Heart Failure And Stage 1 To 4 Chronic Kidney Disease Or Unspecified Chronic Kidney Disease (HCC) 05/15/2024 Chronic Kidney Disease (CKD), Stage 3a Glomerular Filtration Rate (GFR) 45 To 59 (HCC) 05/15/2024 Atrial Fibrillation Paroxysmal (HCC) 05/15/2024 Armored Transport Service Manager (Current) Anticoagulant Treatment 05/15/2024 Hyperlipidemia On Treatment 05/15/2024 Hypertensive Heart And Chronic Kidney Disease With Heart Failure And Stage 1 To 4 Chronic Kidney Disease Or Unspecified Chronic Kidney Disease (HCC) 05/15/2024 Atrial Fibrillation Paroxysmal (HCC) 05/15/2024 Monitoring For Therapeutic Drug Therapy 05/15/2024 Armored Transport Service Manager (Current) Anticoagulant Treatment 05/15/2024 Hypertensive Heart And Chronic Kidney Disease With Heart Failure And Stage 1 To 4 Chronic Kidney Disease Or Unspecified Chronic Kidney Disease (HCC) 05/16/2024 Hyperlipidemia On Treatment 05/16/2024 Atrial Fibrillation Paroxysmal (HCC) 05/16/2024 Monitoring For Therapeutic Drug Therapy 05/16/2024 Alf (Current) Anticoagulant Treatment 05/16/2024 Hypertensive Heart And Chronic Kidney Disease With Heart Failure And Stage 1 To 4 Chronic Kidney Disease Or Unspecified Chronic Kidney Disease (HCC) 05/23/2024 Hyperlipidemia On Treatment 05/23/2024 Atrial Fibrillation Paroxysmal (HCC) 05/23/2024 Monitoring For Therapeutic Drug Therapy 05/23/2024 Alf (Current) Anticoagulant Treatment 05/23/2024 Hypertensive Heart And Chronic Kidney Disease With Heart Failure And Stage 1 To 4 Chronic Kidney Disease Or Unspecified Chronic Kidney Disease (HCC) 05/23/2024 Hyperlipidemia On Treatment 05/23/2024 Atrial Fibrillation Paroxysmal (HCC) 05/23/2024 Monitoring For Therapeutic Drug Therapy 05/23/2024 Alf (Current) Anticoagulant Treatment 05/23/2024 Hypertensive Heart And Chronic Kidney Disease With Heart Failure And Stage 1 To 4 Chronic Kidney Disease Or Unspecified Chronic Kidney Disease (HCC) 05/24/2024 Hyperlipidemia On Treatment 05/24/2024 Atrial Fibrillation Paroxysmal (HCC) 05/24/2024 Monitoring For Therapeutic Drug Therapy 05/24/2024 Armored Transport Service Manager (Current) Anticoagulant Treatment 05/24/2024 Hypertensive Heart And Chronic Kidney Disease With Heart Failure And Stage 1 To 4 Chronic Kidney Disease Or Unspecified Chronic Kidney Disease (HCC) 05/25/2024 Hyperlipidemia On Treatment 05/25/2024 Atrial Fibrillation Paroxysmal (HCC) 05/25/2024 Monitoring For Therapeutic Drug Therapy 05/25/2024 Armored Transport Service Manager (Current) Anticoagulant Treatment 05/25/2024 Hypertensive Heart And Chronic Kidney Disease With Heart Failure And Stage 1 To 4 Chronic Kidney Disease Or Unspecified Chronic Kidney Disease (HCC) 05/25/2024 Hyperlipidemia On Treatment 05/25/2024 Atrial Fibrillation Paroxysmal (HCC) 05/25/2024 Monitoring For Therapeutic Drug Therapy 05/25/2024 Alf (Current) Anticoagulant Treatment 05/25/2024 Hypertensive Heart And Chronic Kidney Disease With Heart Failure And Stage 1 To 4 Chronic Kidney Disease Or Unspecified Chronic Kidney Disease (HCC) 06/06/2024 Hyperlipidemia On Treatment 06/06/2024 Atrial Fibrillation Paroxysmal (HCC) 06/06/2024 Monitoring For Therapeutic Drug Therapy 06/06/2024 Alf (Current) Anticoagulant Treatment 06/06/2024 Hypertensive Heart And Chronic Kidney Disease With Heart Failure And Stage 1 To 4 Chronic Kidney Disease Or Unspecified Chronic Kidney Disease (HCC) 06/06/2024 Hyperlipidemia On Treatment 06/06/2024 Atrial Fibrillation Paroxysmal (HCC) 06/06/2024 Monitoring For Therapeutic Drug Therapy 06/06/2024 Armored Transport Service Manager (Current) Anticoagulant Treatment 06/06/2024 Care Teams Burr Grinder Relationship Specialty Start Date End Date Patrick Erickson D.O. [address], [place] [phone] PCP - General Internal Medicine 08/12/22
[2024-06-06 15:53] VITALS: BP 188/77; PULSE 54; RESP 18; TEMP 36.1; O2SAT 97; BMI 29.9
--- NOTE | 2024-06-06 16:03 | CRLHL7_ITS ---
For Patients: As a result of the Cures Act, medical imaging exams and procedure reports are released immediately into your electronic medical record. You may view this report before your referring provider. If you have questions, please contact your health care provider. Indication: Fall Technique: Left hip 3 views Comparison: None Findings: Bones: Acute fracture of the left proximal femur, likely best characterized as an intertrochanteric fracture with moderate impaction and shortening. No dislocation. Joint spaces: Mild left hip joint space narrowing. Moderate osteitis pubis. Impression: Acute intertrochanteric fracture of the left proximal femur. Dictated by Braulio Alvarez MD @ 06/06/2024 4:37:20 PM (Electronically Signed)
--- NOTE | 2024-06-06 16:21 | ED.GENADULT ---
HPI - General Adult General Date Seen: 06/06/24 Chief complaint: Hip Injury/Pain Stated complaint: fall Time Seen by Provider: 06/06/24 15:57 Source: patient and EMS Mode of arrival: EMS Limitations: no limitations History of Present Illness HPI narrative: Patient is a 78-year-old female presenting to emergency department for left hip pain. 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 She states she tried to stand up after this but was unable to so EMS was called. She is having some left groin pain at this time. Overall she states the pain is tolerable. She is on warfarin for paroxysmal AFib and states her INR was 6.8 this morning was told to hold the warfarin. She is adamant that she did not hit her head. I asked her several times and she states she absolutely did not hit her head just landed on her left hip. Denies any other injuries. Denies numbness to the left leg. Related Data Home Medications ?Medication ?Instructions ?Recorded ?Confirmed atorvastatin 10 mg tablet 10 mg PO DAILY 08/01/22 06/06/24 furosemide 20 mg tablet 20 mg PO DAILY 08/01/22 06/06/24 lisinopril 40 mg tablet 40 mg PO DAILY 08/01/22 06/06/24 warfarin 5 mg tablet 7.5 mg PO DAILY 08/01/22 06/06/24 cholecalciferol (vitamin D3) PO 12/02/23 05/19/24 cyanocobalamin (vitamin B-12) PO 12/02/23 05/19/24 cyclobenzaprine 5 mg tablet 5 mg feeding tube QHS 12/02/23 06/06/24 sumatriptan succinate 50 mg tablet See Rx Instructions PO .COMPLEX 12/02/23 06/06/24 gabapentin 100 mg capsule 100 mg PO DAILY 12/08/23 06/06/24 amlodipine 2.5 mg tablet 2.5 mg PO DAILY 01/25/24 06/06/24 Previous Rx's ?Medication ?Instructions ?Recorded carvedilol 6.25 mg tablet 6.25 mg PO BID #15 tabs 08/02/22 Allergies Allergy/AdvReac Type Severity Reaction Status Date / Time codeine Allergy Verified 06/06/24 15:56 Review of Systems Narrative: Pertinent systems reviewed and were negative unless stated in HPI PFSH PFSH Medical History Lumbar radiculopathy ?M54.16 - Radiculopathy, lumbar region (ICD-10) Migraine ?G43.909 - Migraine, unspecified, not intractable, without status migrainosus (ICD-10) Paroxysmal atrial fibrillation ?I48.0 - Paroxysmal atrial fibrillation (ICD-10) Hypertension ?I10 - Essential (primary) hypertension (ICD-10) Chronic kidney disease, stage 3 ?N18.30 - Chronic kidney disease, stage 3 unspecified (ICD-10) Heart failure ?I50.9 - Heart failure, unspecified (ICD-10) Altered mental status ?R41.82 - Altered mental status, unspecified (ICD-10) Surgical History History of open reduction and internal fixation (ORIF) procedure (12/08/23) ?Z98.890 - Other specified postprocedural states (ICD-10) History of appendectomy ?Z90.49 - Acquired absence of other specified parts of digestive tract (ICD-10) History of hysterectomy ?Z90.710 - Acquired absence of both cervix and uterus (ICD-10) History of tonsillectomy ?Z90.89 - Acquired absence of other organs (ICD-10) Family History Mother Diabetes Cardiovascular disease Brother Dementia Father Abdominal aortic aneurysm Social History Narrative: Patient lives at the [facility] in [place]. She is in an independent apartment. Her lives there and is in assisted living due to a remote history of stroke. She reports her independent living has been going well for her. She does not smoke. She does not drink alcohol. She does not use recreational drugs. She does tell me that she rubs CBD oil on her feet. Her son [place] and her daughter have your are healthcare power of tax associate attorney. Her code status is DNR. She goes to [facility] in [place] for primary care. 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 on 05/07/24 Smoking Status: Never smoker Do you use any of these nicotine containing products: None Second hand tobacco smoke exposure: No How often do you have a drink containing alcohol: never How often do you have six or more drinks on one occasion: Never AUDIT-C Alcohol total score: 0 Non-prescribed substance use: denies use Caffeine: Yes Are you now , , , , never or living with a partner: Social isolation score (0-1 are the most socially isolated patients): 0 Are you using contraception or practicing any form of control: No service: No Exam Narrative: Exam Narrative: Const: Well-nourished, Well-developed, in mild distress Eyes: PERRL, no conjunctival injection, and symmetrical lids HENT: Atraumatic external nose and ears. Moist mucous membranes. Neck: Symmetric, trachea midline, No thyromegaly. CVS: RRR, No murmurs or gallops. Peripheral pulses 2+ and equal in all extremities RESP: Unlabored respiratory effort. Clear to auscultation bilaterally. GI: Nontender/Nondistended, No rebound or guarding. MSK:Extremities w/o deformity, decreased range of motion left hip secondary to pain. Mild tenderness palpation left groin Skin: Warm, Dry. No rashes or lesions. Neuro: Normal Muscle tone, No focal neurological deficits. Psych: Awake, Alert, & Oriented x3. Appropriate mood and affect. Const: Vital Signs, click to edit/add: Vital Signs - 24 hr 06/06/24 15:53 Temperature 97 F L Pulse Rate [Right Pulse Oximeter] 54 L Respiratory Rate 18 Blood Pressure [Ri ght Upper Arm] 188/77 H Pulse Oximetry 97 Oxygen Delivery Me thod Room Air Course Vital Signs Vital signs: Initial Vital Signs Temperature 97 F L 06/06/24 15:53 Temperature Source Temporal Artery Scan 06/06/24 15:53 Pulse Rate 54 L 06/06/24 15:53 Pulse Rhythm Regular 06/06/24 15:53 Pulse Strength 3+ Normal 06/06/24 15:53 Respiratory Rate 18 06/06/24 15:53 Blood Pressure 188/77 H 06/06/24 15:53 Blood Pressure Mean 114 H 06/06/24 15:53 Blood Pressure Position Sitting 06/06/24 15:53 Pulse Oximetry 97 06/06/24 15:53 Oxygen Delivery Method Room Air 06/06/24 15:53 Vital Signs Temperature 97 F L 06/06/24 15:53 Pulse Rate 54 L 06/06/24 15:53 Respiratory Rate 18 06/06/24 15:53 Blood Pressure 188/77 H 06/06/24 15:53 Pulse Oximetry 97 06/06/24 15:53 Oxygen Delivery Method Room Air 06/06/24 15:53 Temperature 97 F L 06/06/24 15:53 Pulse Rate 54 L 06/06/24 15:53 Respiratory Rate 18 06/06/24 15:53 Blood Pressure 188/77 H 06/06/24 15:53 Pulse Oximetry 97 06/06/24 15:53 Oxygen Delivery Method Room Air 06/06/24 15:53 Medical Decision Making MDM Narrative Medical decision making narrative: Patient is a 78-year-old female presenting for left hip pain. Will do an x-ray of the left hip to look for signs of fractures. She is on warfarin so I will check an INR in since I am checking labs will check a CBC and BMP also. X-ray of the left hip shows an acute inter trochanteric hip fracture. Chest x-ray shows no abnormalities. CBC and BMP shows no concerning findings. Repeat INR is down from 4.5 from her reported 6.8 this morning. I did speak to the accepting hospitalist who does recommend 5 mg p.o. vitamin K to reverse it. Patient will be admitted to the hospitalist service. Ortho is aware of the patient. Patient is agreeable to this plan. Lab Data Labs: Lab Results 06/06/24 Range/Units 16:47 WBC 7.32 (4.50-11.00) K/uL RBC 4.50 (4.00-5.20) m/uL Hgb 12.8 (12.0-16.0) gm/dL Hct 40.2 (33.0-51.0) % MCV 89 (80-100) fL MCH 28 (26-34) pg MCHC 32 (32-36) gm/dL RDW Coeff of Pascual 13.6 (11.5-15.5) % Plt Count 164 (140-440) K/uL Neut % (Auto) 77.7 H (42.0-72.0) % Lymph % (Auto) 13.1 L (20-44) % Wetzel % (Auto) 6.6 (0.0-11.0) % Eos % (Auto) 1.9 (0.0-7.0) % Baso % (Auto) 0.3 (0.0-3.0) % Neut # (Auto) 5.70 (1.7-7.0) K/uL Lymph # (Auto) 1.00 (0.90-2.90) K/uL Wetzel # (Auto) 0.50 (0.00-0.90) K/UL Eos # (Auto) 0.14 (0.00-0.50) K/uL Baso # (Auto) 0.02 (0.00-0.30) K/uL Abs Immat Gran (auto) 0.03 (0.00-0.30) K/uL Imm/Tot Granulo (auto) 0.4 % INR 4.51 H (0.91-1.10) Sodium 140 (135-149) mmol/L Potassium 3.8 (3.6-5.1) mmol/L Chloride 105 (96-114) mmol/L Carbon Dioxide 26 (20-32) mmol/L Anion Gap 9 (7-15) mEq/L BUN 22 (7-30) mg/dL Creatinine 1.1 (0.5-1.5) mg/dL Estimated Creat Clear 40.09 Estimated GFR 52 ml/min Glucose 140 H (60-115) mg/dL Calcium 9.1 (8.4-10.6) mg/dL Imaging Data Chest x-ray: Attestation: I have reviewed the pertinent imaging results. Radiologist's impression: 1. Low lung volumes with mild diffuse interstitial prominence, which may be artifactual, though could reflect mild pulmonary edema. 2. Redemonstrated left lower lung 0.9 cm nodular focus, which may reflect a calcific granuloma. While indeterminate by radiograph, the nearly 2-year stability is suggestive of benignity. Dictated by Braulio Alvarez MD @ 06/06/2024 4:45:31 PM Left hip x-ray: Attestation: I have reviewed the pertinent imaging results. Radiologist's impression: Bones: Acute fracture of the left proximal femur, likely best characterized as an intertrochanteric fracture with moderate impaction and shortening. No dislocation. Joint spaces: Mild left hip joint space narrowing. Moderate osteitis pubis. Impression: Acute intertrochanteric fracture of the left proximal femur. Dictated by Braulio Alvarez MD @ 06/06/2024 4:37:20 PM Discharge Plan Discharge Clinical Impression: Closed fracture of left hip Qualifiers: Encounter type: initial encounter Qualified Code(s): S72.002A - Fracture of unspecified part of neck of left femur, initial encounter for closed fracture Patient Disposition: Admitted As Observation Condition: Stable Prescriptions: No Action amlodipine 2.5 mg tablet 2.5 mg PO DAILY cholecalciferol (vitamin D3) PO cyanocobalamin (vitamin B-12) PO cyclobenzaprine 5 mg tablet 5 mg feeding tube QHS sumatriptan succinate 50 mg tablet See Rx Instructions PO .COMPLEX Rx Instructions: take 1 tab at onset of headache; if no relief may repeat 1 tab after at least 2 hrs; max = 4 tabs/24 hr PO atorvastatin 10 mg tablet 10 mg PO DAILY warfarin 5 mg tablet 7.5 mg PO DAILY furosemide 20 mg tablet 20 mg PO DAILY lisinopril 40 mg tablet 40 mg PO DAILY carvedilol 6.25 mg Tablet 6.25 mg PO BID Qty: 15 0RF gabapentin 100 mg capsule 100 mg PO DAILY Follow Up/Referrals: Anna Iniguez, FIRE APPARATUS SPRINKLER INSPECTOR, CHIEF PORT DIRECTOR, DNP [Primary Care Provider] -
[2024-06-06 16:59] LABS: Basophils Absolute Auto 0.02 K/uL (0.00-0.30); Basophils Percent Auto 0.3 % (0.0-3.0); Eosinophils Absolute Auto 0.14 K/uL (0.00-0.50); Eosinophils Percent Auto 1.9 % (0.0-7.0); Hematocrit* 40.2 % (33.0-51.0); Hemoglobin* 12.8 gm/dL (12.0-16.0); Immature Granulocytes Abs Auto 0.03 K/uL (0.00-0.30); Immature Granulocytes Pct Auto 0.4 %; Lymphocytes Percent Auto 13.1 % (20-44); Mean Corpuscular HGB Conc 32 gm/dL (32-36); Mean Corpuscular Hemoglobin 28 pg (26-34); Mean Corpuscular Volume 89 fL (80-100); Monocytes Percent Auto 6.6 % (0.0-11.0); Neutrophils Percent Auto 77.7 % (42.0-72.0); Platelet Count* 164 K/uL (140-440); RDW Coefficient of Variation % 13.6 % (11.5-15.5); White Blood Count* 7.32 K/uL (4.50-11.00)
[2024-06-06 17:00] LABS: Slide Review Reflex No
[2024-06-06 17:23] LABS: Chloride* 105 mmol/L (96-114); Potassium* 3.8 mmol/L (3.6-5.1); Sodium* 140 mmol/L (135-149)
[2024-06-06 17:26] LABS: Anion Gap 9 mEq/L (7-15); Blood Urea Nitrogen* 22 mg/dL (7-30); Carbon Dioxide* 26 mmol/L (20-32); Creatinine* 1.1 mg/dL (0.5-1.5); Est. Creatinine Clearance* 40.09; Estimated Glomerular Filt Rate 52 ml/min
[2024-06-06 17:27] LABS: Calcium* 9.1 mg/dL (8.4-10.6); Glucose* 140 mg/dL (60-115)
[2024-06-06 17:29] LABS: INR 4.51 (0.91-1.10); Prothrombin Time 44.2 Seconds
--- OUTSIDE RECORDS SUMMARY | 2024-06-06 17:38 | XMS_ITS | Encounter Summary ---
Author Organization [facility] Address [address] [place] [address] Care Team Providers Care Customer Quality Engineer Name Role Phone Patrick Erickson D.O. Primary Care Provider [phone] Reason for Visit * Outpatient (Routine) - Authorized Specialty Diagnoses / Procedures Referred By Contkarri t Referred To Contact Anticoagulation Patrick Erickson D.O. [address] [place] [address] Phone: tel: fax: [facility] Region Referral ID Status Reason Start Date Expiration Date V isits Requested Visits Authorized [id number] Authorized 03/03/2024 09/02/2025 300 300 Encounter Details Date Type Department Care Team (Latest Contact Info) Description 05/09/2024 1:30 PM DIRECTOR OF SOCIAL SERVICES Anticoagulation Visit Department of Anticoagulation in [place], [place] [address] [place] [address] Patrick Erickson D.O. [address] [place] [address] Hypertensive Heart And Chronic Kidney Disease With Heart Failure And Stage 1 To 4 Chronic Kidney Disease Or Unspecified Chronic Kidney Disease (HCC) (Primary Dx); Hyperlipidemia On Treatment; Atrial Fibrillation Paroxysmal (HCC); Monitoring For Therapeutic Drug Therapy; Lens Assistant (Current) Anticoagulant Treatment Social History Tobacco Use Types Packs/Day Years Used Date Smoking Tobacco: Never Smokeless Tobacco: Never Alcohol Use Standard Drinks/Week Comments No 0 (1 standard drink = 0.6 oz pur e alcohol) [facility] Utilities Answer Date Recorded In [...] Recorded PHQ-2 Score 0 04/27/2023 [facility] [place] [facility] - Occupational Stress [...] Legal Sex Female 9:57 PM DIRECTOR OF SOCIAL SERVICES Gender Identity Female 09/24/2022 9:59 PM CDT Sexual Orientation Straight 12/19/2021 3: 32 AM CDT documented as of this encounter Patient Instructions * Patient Instructions* Iris Mckinley RMoraima. - 05/09/2024 1:30 PM DIRECTOR OF SOCIAL SERVICES Your next INR will be 05/15/24. You will need to call the Anticoagulation Program at the time of your scheduled nurse visit or you can complete the Anticoagulation Pre-Visit Questionnaire and if no additional information is needed, your dosing can be provided via your Patient portal. To reschedule your appointment or for questions about your warfarin, please call Primary Care Anticoagulation Program at [phone] from 7:30 am to 4:30 pm. Wednesday-Wednesday [...] if you start any herbal or other [id number] product (check with your doctor, a nurse, or pharmacist). If you change your diet significantly. If you decide to stop or start using tobacco or alcohol. If you notice unusual bruising or bleeding. If you notice dark, tarry, or bright red stools or blood in your urine. If you have a painful and swollen calf. CTOR OF SOCIAL SERVICES documented in this encounter Plan of Treatment Upcoming Encounters Date Type Department Care Team (Latest Contact Info) Description 06/09/2024 11:20 AM CDT Appointment Department of Laboratory Medicine in [place], [place] [address] [place] [address] Patrick Erickson D.O. [address] [place] [phone] 06/09/2024 12:00 PM CDT Anticoagulation Visit Department of Anticoagulation in [place], [place] [address] [place] [address] Patrick Erickson D.O. [address] [place] [phone] documented as of this encounter Visit Diagnoses Diagnosis Hypertensive Heart And Chronic Kidney Disease With Heart Failure And Stage 1 To 4 Chronic Kidney Disease Or Unspecified Chronic Kidney Disease (HCC)- Primary Hyperlipidemia On Treatment Atrial Fibrillation Paroxysmal (HCC) Monitoring For Therapeutic Drug Therapy Lens Assistant (Current) Anticoagulant Treatment documented in this encounter Additional Health Concerns Assessment Noted Time PHQ-9 Depression Total Score: 9 02/23/20 7:41 PM DIRECTOR OF SOCIAL SERVICES documented as of this encounter Care Teams Customer Quality Engineer Relationship Specialty Start Date End Date Patrick Erickson D[address]O. [address], [place] [phone] PCP - General Internal Medicine 08/12/22 documented as of this encounter
--- OUTSIDE RECORDS SUMMARY | 2024-06-06 17:38 | XMS_ITS | Encounter Summary ---
Author Organization [facility] Address [address] [place] [address] Care Team Providers Care Grocery Shopper Name Role Phone Patrick Erickson D.O. Primary Care Provider +1- [phone] Reason for Visit * Reason Onset Date Comments Med Refill 05/09/2024 Encounter Details Date Type Department Care Team (Late st Contact Info) Description 05/09/2024 Refill Department of Internal Medicine in [place], [place] [address] [address] Patrick Erickson D.O. [address] [address] Med Refill Social History Tobacco Use Types Packs/Day Years Used Date Smoking Tobacco: Never Smokeless Tobacco: Never Alcohol Use Standard Drinks/Week Comments No 0 (1 standard drink = 0.6 oz pur e alcohol) [facility] Utilities Answer Date Recorded In the [...] often do you attend chur ch or sabianist services? More than 4 times per year [...] Answer Date Recorded PHQ-2 Score 0 04/27/2023 [facility] of Occupat ional Health - [...] AM CDT Legal Sex Female 9:57 PM LUMBER GRADER Gender Identity Female 09/24/2022 9:59 PM CDT Sexual Orientation Straight 12/19/2021 3: 32 AM CDT documented as of this encounter Plan of Treatment Upcoming Encounters Date Type Department Care Team (Latest Contact Info) Description 06/09/2024 11:20 AM CDT Appointment Department of Laboratory Medicine in [place] [address] [address] [facility] [place] [phone] Patrick Erickson D.O. [address] [place] [phone] 06/09/2024 12:00 PM CDT Anticoagulation Visit Department of Anticoagulation in [place], [place] [address] [place] [address] Patrick Erickson D.O. [address] [phone] documented as of this encounter Visit Diagnoses Not on filedocumented in this encounter Additional Health Concerns Assessment Noted Time PHQ-9 Depression Total Score: 9 02/23/20 23 7:41 PM LUMBER GRADER documented as of this encounter Care Teams Grocery Shopper Relationship Specialty Start Date End Date Patrick Erickson D.O. [address] [phone] PCP - General Internal Medicine 08/12/22 documented as of this encounter
--- OUTSIDE RECORDS SUMMARY | 2024-06-06 17:38 | XMS_ITS | Encounter Summary ---
Author Organization [facility] Address [address] [place] [address] Care Team Providers Care Manager Sterile Processing Name Role Phone Patrick Erickson D.O. Primary Care Provider +1- [phone] Encounter Details Date Type Department Care Team (Late st Contact Info) Description 05/10/2024 Clinical Communication Department of Internal Medicine in [place], [place] [address] [place] [phone] Patrick Erickson D.O. [address] [place] [address] Social History Tobacco Use Types Packs/Day Years Used Date Smoking Tobacco: Never Smokeless Tobacco: Never Alcohol Use Standard Drinks/Week Comments No 0 (1 standard drink = 0.6 oz pur e alcohol) [facility] Utilities Answer Date Recorded In the past 12 months has [employer] gas, oil, or water [employer] threatened to shut off services in your [...] your living situation today? [facility] 07/01/2023 Education Answer Date Recorded What is the highest level of school you have completed or the highest degree you have received? Associate degree: occupational, technical, or vocational program 05/30/2022 Comments No Sex and Gender Information Value Date Recorded Sex Assigned at Female 12/19/2021 3:32 AM CDT Legal Sex Female 9:57 PM WHEELABRATOR OPERATOR Gender Identity Female 09/24/2022 9:59 PM CDT Sexual Orientation Straight 12/19/2021 3: 32 AM CDT documented as of this encounter Plan of Treatment Upcoming Encounters Date Type Department Care Team (Latest Contact Info) Description 06/09/2024 11:20 AM CDT Appointment Department of Laboratory Medicine in [place] [address] [address] [place] [address] Patrick Erickson D.O. [address], [place] [address] 06/09/2024 12:00 PM CDT Anticoagulation Visit Department of Anticoagulation in [place], [place] [address] [place] [address] Patrick Erickson D.O. [address] [place] [address] documented as of this encounter Visit Diagnoses Not on filedocumented in this encounter Additional Health Concerns Assessment Noted Time PHQ-9 Depression Total Score: 9 02/23/20 23 7:41 PM WHEELABRATOR OPERATOR documented as of this encounter Care Teams Manager Sterile Processing Relationship Specialty Start Date End Date Patrick Erickson D.O. [address] [address] PCP - General Internal Medicine 08/12/22 documented as of this encounter
--- OUTSIDE RECORDS SUMMARY | 2024-06-06 17:38 | XMS_ITS | Encounter Summary ---
Author Organization [facility] Address [address] [place] [address] Care Team Providers Care Locker Plant Attendant Name Role Phone Patrick Erickson D.O. Primary Care Provider +1- [phone] Reason for Referral * Outpatient (Routine) - Authorized Specialty Diagnoses / Procedures Referred By Prosper monsivais Referred To Contact [facility] Internal Medicine Patrick Erickson D.O. [address] [place] [address] Phone: tel: fax: [facility] Region Referral ID Status Reason Start Date Expiration Date V isits Requested Visits Authorized [id number] Authorized 05/15/2024 11/14/2025 1 1 Reason for Visit * Reason Comments Hyperlipidemia Labs completed prior to appt Hypertension Labs completed prior to appt * Outpatient (Routine) - Closed Specialty Diagnoses / Procedures Referred By Prosper monsivais Referred To Contact [facility] Internal Medicine Patrcik Erickson D.O. [address] [place] [address] Phone: tel: fax: [facility] Region Referral ID Status Reason Start Date Expiration Date Visits Re quested Visits Authorized [id number] Closed 02/14/2024 08/15/2025 1 1 Encounter Details Date Type Department Care Team (Latest Contact Info) Description 05/15/2024 3:30 PM CDT Office Visit Department of Internal Medicine in [place], [place] [address] [place] [address] Patrick Erickson D.O. [address] [place] [phone] Chronic Kidney Disease (CKD), Stage 3a Glomerular Filtration Rate (GFR) 45 To 59 (HCC) (Primary Dx); Hypertensive Heart And Chronic Kidney Disease With Heart Failure And Stage 1 To 4 Chronic Kidney Disease Or Unspecified Chronic Kidney Disease (HCC); Atrial Fibrillation Paroxysmal (HCC); [facility] (Current) Anticoagulant Treatment Social History Tobacco Use Types Packs/Day Years Used Date Smoking Tobacco: Never Passive Smoke Exposure: Never Smokeless Tobacco: Never Tobacco Cessation:Counseling Given: Not Answered Alcohol Use Standard Drinks/Week Comments No 0 (1 standard drink = 0.6 oz pur e alcohol) [facility] [employer] Answer Date Recorded In the past 12 months has [employer], oil, or water [employer] threatened to shut off services in your [...] Answer Date Recorded PHQ-2 Score 4 05/15/2024 [facility] of Occupat ional Health [...] your living situation today? I have a [facility] place to live 07/01/2023 Education Answer Date Recorded What is the highest level of school you have completed or the highest degree you have received? Associate degree: occupational, technical, or vocational program 05/30/2022 Comments No Sex and Gender Information Value Date Recorded Sex Assigned at Female 12/19/2021 3:32 AM CDT Legal Sex Female 9:57 PM MONKEY TRAINER Gender Identity Female 09/24/2022 9:59 PM CDT [...] while traveling on a cruise. Remember to picker / packer Dramamine or other similar nausea medications prior [...] DATE OF EXAM: 05/15/2024 LOCATION OF EXAM: [facility] CHIEF COMPLAINT/REASON FOR VISIT Chief Complaint Patient [...] Future 3. Atrial Fibrillation Paroxysmal (HCC) 4. [facility] (Current) Anticoagulant Treatment Stable rate controlled paroxysmal [...] Appointment Department of Laboratory Medicine in [address] [address] Patrick Erickson D.O. [address] [place] [phone] 06/09/2024 12:00 PM CDT Anticoagulation Visit Department of Anticoagulation in [place], [place] [address] [place] [address] Patrick Erickson D.O. [address] [place] [phone] Scheduled Orders Name Type Priority Associated Diagnoses [...] Kidney Disease (HCC) Atrial Fibrillation Paroxysmal (HCC) Linotype Worker (Current) Anticoagulant Treatment documented in this encounter Additional Health Concerns Assessment Noted Time PHQ-9 Depression Total Score: 7 05/16/19 25 3:18 PM CDT documented as of this encounter Care Teams Locker Plant Attendant Relationship Specialty Start Date End Date Patrick Erickson D.O. [address] [place] [phone] PCP - General Internal Medicine 08/12/22 documented as of this encounter
--- OUTSIDE RECORDS SUMMARY | 2024-06-06 17:38 | XMS_ITS | Encounter Summary ---
Author Organization [facility] Address [address] [place] [address] Care Team Providers Care Greenhouse Specialist Name Role Phone Patrick Erickson D.O. Primary Care Provider +1- [phone] Encounter Details Date Type Department Care Team (Latest Contact Info) Description 05/09/2024 12:26 PM PUMP HOUSE OPERATOR - 05/09/2024 11:59 PM [facility] Encounter Department of Laboratory Medicine in [place] [address] [place] [phone] Patrick Erickson D.O. 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 I have a [facility] place to live 07/01/2023 Education Answer Date Recorded What is the highest level of school you have completed or the highest degree you have received? Associate degree: occupational, technical, or vocational program 05/30/2022 Comments No Sex and Gender Information Value Date Recorded Sex Assigned at Female 12/19/2021 3:32 AM CDT Legal Sex Female 9:57 PM PUMP HOUSE OPERATOR Gender Identity Female 09/24/2022 9:59 PM [...] needed for muscle spasms. 30 tablet 06/26/2021 pbspspm-isdp-pk fvl-uosc-yicivj 100 mg-150 mg- 50 mg-150 mg capsule [...] Appointment Department of Laboratory Medicine in [address] [place] [phone] Patrick Erickson D.O. [address] [facility] [phone] 06/09/2024 12:00 PM CDT Anticoagulation Visit Department of Anticoagulation in [place], [place] [address] [place] [address] Patrick Erickson D.O. 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 Or Unspecified Chronic Kidney Disease (HCC) Hyperlipidemia On Treatment Atrial Fibrillation Paroxysmal (HCC) Monitoring For Therapeutic Drug Therapy Escalator Constructor (Current) Anticoagulant Treatment documented in this encounter Results * INR Reflex, POCT, Blood (05/09/2024 12:40 PM PUMP HOUSE OPERATOR) INR Reflex, POCT, B 1.6 05/09/2024 12:39 PM PUMP HOUSE OPERATOR [id number] Comment: ----ADDITIONAL INFORMATION---- Standard intensity warfarin therapeutic range: 2.0 to 3.0 High intensity warfarin therapeutic range: 2.5 to 3.5 Blood (Blood, Capillary) 05/09/2024 12:40 PM PUMP HOUSE OPERATOR 05/09/2024 12:39 PM PUMP HOUSE OPERATOR us Patrick Erickson D.O. LAB POCT ORDERABLES - CARLOS ENRIQUE CE Final Result [facility] [address] [place] [address], [facility] FB60 [facility] in [place] [address] [place] [address] documented in this encounter Visit Diagnoses Diagnosis [...] Total Score: 9 02/23/20 23 7:41 PM PUMP HOUSE OPERATOR documented as of this encounter Care Teams Greenhouse Specialist Relationship Specialty Start Date End Date Patrick Erickson D.O. [address] [place] [phone] PCP - General Internal Medicine 08/12/22 documented as of this encounter
--- OUTSIDE RECORDS SUMMARY | 2024-06-06 17:38 | XMS_ITS | Encounter Summary ---
Author Organization [facility] Address [address] [place] [address] Care Team Providers Care Tie Loader Name Role Phone Patrick Erickson D.O. Primary Care Provider +1- [phone] Encounter Details Date Type Department Care Team (Latest Contact Info) Description 05/15/2024 2:11 PM CDT - 05/15/2024 11:59 PM CDT Hospital Encounter Department of Laboratory Medicine in [place], [place] [address] [place] [phone] Patrick Erickson D.O. 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 Or Unspecified Chronic Kidney Disease (HCC); Atrial Fibrillation Paroxysmal (HCC); Monitoring For Therapeutic Drug Therapy; [facility] (Current) Anticoagulant Treatment Discharge Disposition: Home or Self Care Social History Tobacco Use Types Packs/Day Years Used Date Smoking Tobacco: Never Passive Smoke Exposure: Never Smokeless Tobacco: Never Alcohol Use Standard Drinks/Week Comments No 0 (1 standard drink = 0.6 oz pur e alcohol) [facility] Utilities Answer Date Recorded In the past 12 months has e [employer], gas, oil, or water [employer] threatened to shut off services in your [...] How often do you attend chur or cheondoism services? More than 4 times [...] Answer Date Recorded PHQ-2 Score 4 05/15/2024 [facility] [place] of Occupat ional Health - Occupational Stress [...] today? I have a [facility] place to live 07/01/2023 Education Answer Date Recorded What is the highest level of school you have completed or the highest degree you have received? Associate degree: occupational, technical, or vocational program 05/30/2022 Comments No Sex and Gender Information Value Date Recorded Sex Assigned at Female 12/19/2021 3:32 AM CDT Legal Sex Female 9:57 PM MUSIC MIXER Gender Identity Female 09/24/2022 9:59 PM CDT [...] by mouth daily. 90 tablet 3 05/15/2024 uulcxiu-swdt-kg xxx-loyd-yedfzz 100 mg-150 mg- 50 mg-150 mg capsule [...] Appointment Department of Laboratory Medicine in [address] [place] [phone] Patrick Erickson D.O. [address] [place] [phone] 06/09/2024 12:00 PM CDT Anticoagulation Visit Department of Anticoagulation in [place], [place] [address] [place] [address] Patrick Erickson D.O. [address] [place] [phone] documented as of this encounter Procedures Procedure [...] D.O. LAB BLOOD ADD-ON Final Res ult [facility] [address] [place] [address], [facility] in [place] [address] [place] [address] * CBC without Differential (05/15/2024 2:19 PM [...] D.O. LAB BLOOD ADD-ON Final Res ult [facility] [address] [place] [address], [facility] in [place] [address] [place] [address] * (ABNORMAL) Basic Metabolic Panel (05/15/2024 2:19 [...] D.O. LAB BLOOD ADD-ON Final Res ult [facility] [address] [address], [facility] in [place] [address] [address] * Lipid Panel (05/15/2024 2:19 PM CDT) [...] D.O. 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 [address] [place] [phone] PCP - General Internal Medicine 08/12/22 documented as of this encounter
--- OUTSIDE RECORDS SUMMARY | 2024-06-06 17:38 | XMS_ITS | Encounter Summary ---
Author Organization [facility] Address [address] [place] [address] Care Team Providers Care Miller Head Assistant Wet Process Name Role Phone Patrick Erickson D.O. Primary Care Provider +1- [phone] Reason for Visit * Outpatient (Routine) - Authorized Specialty Diagnoses / Procedures Referred By Contkarri t Referred To Contact Anticoagulation Patrick Erickson D.O. [address] [place] [address] Phone: tel: fax: [facility] Region Referral ID Status Reason Start Date Expiration Date V isits Requested Visits Authorized [id number] Authorized 03/03/2024 09/02/2025 300 300 Encounter Details Date Type Department Care Team (Latest Contact Info) Description 05/23/2024 4:00 PM CDT Anticoagulation Visit Department of Anticoagulation in [place], [place] [address] [place] [address] Patrick Erickson D.O. 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) Anticoagulant Treatment Social History Tobacco Use Types Packs/Day Years Used Date Smoking Tobacco: Never Passive Smoke Exposure: Never Smokeless Tobacco: Never Alcohol Use Standard Drinks/Week Comments No 0 (1 standard drink = 0.6 oz pur e alcohol) [facility] Utilities Answer Date Recorded In [...] Date Recorded PHQ-2 Score 4 05/15/2024 [facility] of Occupat ional [facility] - Occupational Stress Questionnaire Answer [...] AM CDT Legal Sex Female 9:57 PM PERL DEVELOPER Gender Identity Female 09/24/2022 9:59 PM CDT [...] please call Primary Care Anticoagulation Program at [phone] from 7:30 am to 4:30 pm. Wednesday-Wednesday [...] if you start any herbal or other kcue-bvv-qfatjoe product (check with your doctor, a nurse, [...] of Laboratory Medicine in [place], [place] [address] [place] [address] Patrick Erickson D.O. [address] [place] [address] 06/09/2024 12:00 PM CDT Anticoagulation Visit Department of Anticoagulation in [place], [place] [address] [place] [address] Patrick Erickson D.O. [address] [place] [address] documented as of this encounter Results * INR Reflex, POCT, Blood (05/25/2024 11:42 AM CDT) [facility] INR Reflex, POCT, B 4.2 05/25/2024 11:41 AM CDT [id number] Comment: ----ADDITIONAL INFORMATION---- Standard intensity warfarin therapeutic range: 2.0 to 3.0 High intensity warfarin therapeutic range: 2.5 to 3.5 Blood (Blood, Capillary) 05/25/2024 11:42 AM CDT 05/25/2024 11:41 AM CDT us Patrick Erickson D.O. LAB POCT ORDERABLES - CARLOS ENRIQUE CE Final Result [facility] [address] [place] [address], [place] FB60 [facility] in [address] [address] documented in this encounter Visit Diagnoses Diagnosis [...] documented as of this encounter Care Teams Miller Head Assistant Wet Process Relationship Specialty Start Date End Date Patrick Erickson D.O. [address] [place] [phone] PCP - General Internal Medicine 08/12/22 documented as of this encounter
--- OUTSIDE RECORDS SUMMARY | 2024-06-06 17:38 | XMS_ITS | Encounter Summary ---
Author Organization [facility] Address [address] [place] [address] Care Team Providers Care Hospitalist Nocturnist Physician Name Role Phone Patrick Erickson D.O. Primary Care Provider +1- [phone] Reason for Visit * Outpatient (Routine) - Authorized Specialty Diagnoses / Procedures Referred By Contkarri t Referred To Contact Anticoagulation Patrick Erickson D.O. [address] [place] [address] Phone: tel: fax: [facility] Region Referral ID Status Reason Start Date Expiration Date V isits Requested Visits Authorized [id number] Authorized 03/03/2024 09/02/2025 300 300 Encounter Details Date Type Department Care Team (Latest Contact Info) Description 05/24/2024 10:30 AM CDT Anticoagulation Visit Department of Anticoagulation in [place], [place] [address] [place] [address] Patrick Erickson D.O. 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 Utilities Answer Date Recorded In the [...] Answer Date Recorded PHQ-2 Score 4 05/15/2024 [facility] [place] of Occupat ional [facility] [...] your living situation today? I have a [facility] place to live 07/01/2023 Education Answer Date Recorded What is the highest level of school you have completed or the highest degree you have received? Associate degree: occupational, technical, or vocational program 05/30/2022 Comments No Sex and Gender Information Value Date Recorded Sex Assigned at Female 12/19/2021 3:32 AM CDT Legal Sex Female 9:57 PM CRUCIBLE FURNACE TENDER Gender Identity Female 09/24/2022 9:59 PM [...] please call Primary Care Anticoagulation Program at [phone] from 7:30 am to 4:30 pm. Wednesday-Wednesday [...] if you start any herbal or other ggmi-tkn-ecevaiu product (check with your doctor, a nurse, [...] of Laboratory Medicine in [place], [place] [address] [place] [address] Patrick Erickson D.O. [address] [address] 06/09/2024 12:00 PM CDT Anticoagulation Visit Department of Anticoagulation in [place], [place] [address] [place] [address] aPtrick Erickson D.O. 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 [address] [address] PCP - General Internal Medicine 08/12/22 documented as of this encounter
--- OUTSIDE RECORDS SUMMARY | 2024-06-06 17:38 | XMS_ITS | Encounter Summary ---
Author Organization [facility] Address [address] [place] [address] Care Team Providers Care Cattery Operator Name Role Phone Patrick Erickson D.O. Primary Care Provider +1- [phone] Reason for Visit * Outpatient (Routine) - Authorized Specialty Diagnoses / Procedures Referred By Contkarri t Referred To Contact Anticoagulation Patrick Erickson D.O. [address] [place] [address] Phone: tel: fax: [facility] Region Referral ID Status Reason Start Date Expiration Date V isits Requested Visits Authorized [id number] Authorized 03/03/2024 09/02/2025 300 300 Encounter Details Date Type Department Care Team (Latest Contact Info) Description 05/16/2024 2:00 PM CDT Anticoagulation Visit Department of Anticoagulation in [place], [place] [address] [place] [address] Patrick Erickson D.O. 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 I have a [facility] place to live 07/01/2023 Education Answer Date Recorded What is the highest level of school you have completed or the highest degree you have received? 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 Wednesday-Wednesday [...] if you start any herbal or other xldx-prl-kqucckm product (check with your doctor, a nurse, [...] CDT Appointment Department of Laboratory Medicine in [place], [place] [address] [place] [address] Partick Erickson D.O. [address] [place] [address] 06/09/2024 12:00 PM CDT Anticoagulation Visit Department of Anticoagulation in [place], [place] [address] [place] [address] Patrick Erickson D.O. [address] [place] [address] documented as of this encounter Results * (ABNORMAL) INR Reflex, POCT, Blood (05/23/2024 3:42 PM CDT) [facility] Signature INR Reflex, POCT, B >8.0(CH) 05/23/2024 3:41 PM CDT [id number] Comment: ----ADDITIONAL INFORMATION---- Standard intensity warfarin therapeutic range: 2.0 to 3.0 High intensity warfarin therapeutic range: 2.5 to 3.5 Blood (Blood, Capillary) 05/23/2024 3:42 PM CDT 05/23/2024 3:41 PM CDT us Patrick Erickson D.O. LAB POCT ORDERABLES - CARLOS ENRIQUE CE Final Result [facility] [address] [place] [address], [place] FB60 [facility] [place] [address] [place] [address] documented in this encounter Visit Diagnoses Diagnosis [...] documented as of this encounter Care Teams Cattery Operator Relationship Specialty Start Date End Date Patrick Erickson D.O. [address] [phone] PCP - General Internal Medicine 08/12/22 documented as of this encounter
--- OUTSIDE RECORDS SUMMARY | 2024-06-06 17:38 | XMS_ITS | Encounter Summary ---
Author Organization [facility] Address [address] [place] [address] Care Team Providers Care Horseback Riding Instructor Name Role Phone Patrick Erickson D.O. Primary Care Provider +1- [phone] Encounter Details Date Type Department Care Team (Latest Contact Info) Description 05/23/2024 3:20 PM CDT - 05/23/2024 11:59 PM CDT Hospital Encounter Department of Laboratory Medicine in [place], [place] [address] [place] [address] Patrick Erickson D.O. 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 90 tablet 3 05/15/2024 wpqklyp-wrlt-qg gyq-bmkd-exfdla 100 mg-150 mg- 50 mg-150 mg capsule [...] Appointment Department of Laboratory Medicine in [address] [place] [phone] Patrick Erickson D.O. [address], [place] [address] 06/09/2024 12:00 PM CDT Anticoagulation Visit Department of Anticoagulation in [place], [place] [address] [place] [address] Patrick Erickson D.O. [address] [place] [address] documented as of this encounter [...] Paroxysmal (HCC) Monitoring For Therapeutic Drug Therapy Fdc (Current) [...] D.O. LAB BLOOD ADD-ON Final Res ult [facility] [address] [place] [address], [place] OWAT [facility] [place] [address] [place] [address] * (ABNORMAL) INR Reflex, POCT, Blood (05/23/2024 3:42 PM CDT) INR Reflex, POCT, B >8.0(CH) 05/23/2024 3:41 PM CDT [id number] Comment: ----ADDITIONAL INFORMATION---- Standard intensity warfarin therapeutic range: 2.0 to 3.0 High intensity warfarin therapeutic range: 2.5 to 3.5 Blood (Blood, Capillary) 05/23/2024 3:42 PM CDT 05/23/2024 3:41 PM CDT us Patrick Erickson D.O. 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 [address], [place] [address] PCP - General Internal Medicine 08/12/22 documented as of this encounter
--- OUTSIDE RECORDS SUMMARY | 2024-06-06 17:39 | XMS_ITS | Encounter Summary ---
Author Organization [facility] Address [address] [place] [address] Care Team Providers Care Traveling Electrician Name Role Phone Patrick Erickson D.O. Primary Care Provider +1- [phone] Encounter Details Date Type Department Care Team (Latest Contact Info) Description 04/28/2024 2:05 PM DIE DRAWING CHECKER - 04/28/2024 11:59 PM [facility] Hospital Encounter Department of Laboratory Medicine in [place] [address] [place] [phone] Patrick Erickson D.O. [address] [place] [address] Atrial Fibrillation Paroxysmal (HCC); Monitoring For Therapeutic Drug Therapy; Longterm (Current) Anticoagulant Treatment Discharge Disposition: Home or Self Care Social History Tobacco Use Types Packs/Day Years Used Date Smoking Tobacco: Never Smokeless Tobacco: Never Alcohol Use Standard Drinks/Week Comments No 0 (1 standard drink = 0.6 oz pur e alcohol) [facility] Utilities Answer Date Recorded In the past 12 months has e [employer], gas, oil, or water [employer] threatened to shut off services in [...] any clubs o r organizations such as anabaptism groups, unions, fraternal or athletic groups, or [...] AM CDT Legal Sex Female 9:57 PM DIE DRAWING CHECKER Gender Identity Female 09/24/2022 9:59 PM CDT [...] needed for muscle spasms. 30 tablet 06/26/2021 akltour-leex-jnk gz-ippj-ghqctt 100 mg-150 mg- 50 mg-150 mg capsule [...] Appointment Department of Laboratory Medicine in [address] [phone] Patrick Erickson D.O. [address] [place] [phone] 06/09/2024 12:00 PM CDT Anticoagulation Visit Department of Anticoagulation in [place], [place] [address] [place] [address] Patrick Erickson D.O. [address] [place] [address] documented as of this encounter Procedures Procedure Name Priority Date/Time Associated Diagnosis Comments INR REFLEX, POCT, B Routine 04/28/2024 2:10 PM DIE DRAWING CHECKER Atrial Fibrillation Paroxysmal (HCC) Monitoring For Therapeutic Drug Therapy Plush Cutter (Current) Anticoagulant Treatment documented in this encounter Results * INR Reflex, POCT, Blood (04/28/2024 2:10 PM DIE DRAWING CHECKER) INR Reflex, POCT, B 1.9 04/28/2024 2:10 PM DIE DRAWING CHECKER [id number] Comment: ----ADDITIONAL INFORMATION---- Standard intensity warfarin therapeutic range: 2.0 to 3.0 High intensity warfarin therapeutic range: 2.5 to 3.5 Blood (Blood, Capillary) 04/28/2024 2:10 PM DIE DRAWING CHECKER 04/28/2024 2:10 PM DIE DRAWING CHECKER us Patrick Erickson D.O. LAB POCT ORDERABLES - CARLOS ENRIQUE CE Final Result [facility] [address] [place] [address], [facility] FB60 [facility] in [address] [address] documented in this encounter Visit Diagnoses Diagnosis Atrial Fibrillation Paroxysmal (HCC) Monitoring For Therapeutic Drug Therapy Plush Cutter (Current) Anticoagulant Treatment documented in this encounter Additional Health Concerns Assessment Noted Time PHQ-9 Depression Total Score: 9 02/23/20 23 7:41 PM DIE DRAWING CHECKER documented as of this encounter Care Teams Traveling Electrician Relationship Specialty Start Date End Date Patrick Erickson D.O. [address] [phone] PCP - General Internal Medicine 08/12/22 documented as of this encounter
--- OUTSIDE RECORDS SUMMARY | 2024-06-06 17:39 | XMS_ITS | Encounter Summary ---
Author Organization [facility] Address [address] [place] [address] Care Team Providers Care Channel Opener Outsoles Name Role Phone Patrick Erickson D.O. Primary Care Provider +1- [phone] Reason for Visit * Outpatient (Routine) - Authorized Specialty Diagnoses / Procedures Referred By Contkarri t Referred To Contact Anticoagulation Patrick Erickson D.O. [address] [place] [address] Phone: tel: fax: [facility] Region Referral ID Status Reason Start Date Expiration Date V isits Requested Visits Authorized [id number] Authorized 03/03/2024 09/02/2025 300 300 Encounter Details Date Type Department Care Team (Latest Contact Info) Description 05/25/2024 12:00 PM CDT Anticoagulation Visit Department of Anticoagulation in [place], [place] [address] [place] [address] Patrick Erickson D.O. 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 I have a [facility] place to live 07/01/2023 Education Answer Date Recorded What is the highest level of school you have completed or the highest degree you have received? Associate degree: occupational, technical, or vocational program 05/30/2022 Comments No Sex and Gender Information Value Date Recorded Sex Assigned at Female 12/19/2021 3:32 AM CDT Legal Sex Female 9:57 PM TAWER Gender Identity Female 09/24/2022 9:59 PM CDT [...] please call Primary Care Anticoagulation Program at [phone] from 7:30 am to 4:30 pm. Wednesday-Wednesday [...] if you start any herbal or other nzwa-yep-tmdjjlw product (check with your doctor, a nurse, [...] CDT Appointment Department of Laboratory Medicine in [place], [place] [address] [place] [address] Patrick Erickson D.O. [address], [place] [address] 06/09/2024 12:00 PM CDT Anticoagulation Visit Department of Anticoagulation in [place], [place] [address] [place] [address] Patrick Erickson D.O. [address] [place] [address] documented as of this encounter Results * (ABNORMAL) INR Reflex, POCT, Blood (06/06/2024 10:58 AM CDT) [facility] Signature INR Reflex, POCT, B 7.6() 06/06/2024 10:57 AM CDT [id number] Comment: ----ADDITIONAL INFORMATION---- Standard intensity warfarin therapeutic range: 2.0 to 3.0 High intensity warfarin therapeutic range: 2.5 to 3.5 Blood (Blood, Capillary) 06/06/2024 10:58 AM CDT 06/06/2024 10:57 AM CDT us Patrick Erickson D.O. LAB POCT ORDERABLES - CARLOS ENRIQUE CE Final Result [facility] [address] [place] [address], [place] FB60 [facility] [place] [address] [place] [address] documented in this encounter Visit Diagnoses Diagnosis [...] documented as of this encounter Care Teams Channel Opener Outsoles Relationship Specialty Start Date End Date Patrick Erickson D.O. [address] [phone] PCP - General Internal Medicine 08/12/22 documented as of this encounter
--- OUTSIDE RECORDS SUMMARY | 2024-06-06 17:39 | XMS_ITS | Encounter Summary ---
Author Organization [facility] Address [address] [place] [address] Care Team Providers Care Dynamo Repairer Name Role Phone Patrick Erickson D.O. Primary Care Provider +1- [phone] Reason for Visit * Outpatient (Routine) - Authorized Specialty Diagnoses / Procedures Referred By Contkarri t Referred To Contact Anticoagulation Patrick Erickson D.O. [address] [place] [address] Phone: tel: fax: [facility] Region Referral ID Status Reason Start Date Expiration Date V isits Requested Visits Authorized [id number] Authorized 03/03/2024 09/02/2025 300 300 Encounter Details Date Type Department Care Team (Latest Contact Info) Description 04/28/2024 3:00 PM SUPERVISOR ALUMINUM BOAT ASSEMBLY Anticoagulation Visit Department of Anticoagulation in [place], [place] [address] [place] [address] Patrick Erickson D.O. 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 I have a [facility] place to live 07/01/2023 Education Answer Date Recorded What is the highest level of school you have completed or the highest degree you have received? Associate degree: occupational, technical, or vocational program 05/30/2022 Comments No Sex and Gender Information Value Date Recorded Sex Assigned at Female 12/19/2021 3:32 AM CDT Legal Sex Female 9:57 PM SUPERVISOR ALUMINUM BOAT ASSEMBLY Gender Identity Female 09/24/2022 9:59 PM CDT Sexual Orientation Straight 12/19/2021 3: 32 AM CDT documented as of this encounter Patient Instructions * Patient Instructions* Thalia Zepeda R.N. - 04/28/2024 3:00 PM SUPERVISOR ALUMINUM BOAT ASSEMBLY Your next INR will be Sunday May [...] please call Primary Care Anticoagulation Program at [phone] from 7:30 am to 4:30 pm. Wednesday-Wednesday [...] if you start any herbal or other xbnh-tdz-dpfqnpm product (check with your doctor, a nurse, or pharmacist). If you change your diet significantly. If you decide to stop or start using tobacco or alcohol. If you notice unusual bruising or bleeding. If you notice dark, tarry, or bright red stools or blood in your urine. If you have a painful and swollen calf. RVISOR ALUMINUM BOAT ASSEMBLY documented in this encounter Plan of Treatment Upcoming Encounters Date Type Department Care Team (Latest Contact Info) Description 06/09/2024 11:20 AM CDT Appointment Department of Laboratory Medicine in [place], [place] [address] [place] [address] Patrick Erickson D.O. [address] [place] [address] 06/09/2024 12:00 PM CDT Anticoagulation Visit Department of Anticoagulation in [place], [place] [address] [place] [address] Patrick Erickson D.O. [address] [place] [address] documented as of this encounter Results * INR Reflex, POCT, Blood (05/09/2024 12:40 PM SUPERVISOR ALUMINUM BOAT ASSEMBLY) [facility] INR Reflex, POCT, B 1.6 05/09/2024 12:39 PM SUPERVISOR ALUMINUM BOAT ASSEMBLY [id number] Comment: ----ADDITIONAL INFORMATION---- Standard intensity warfarin therapeutic range: 2.0 to 3.0 High intensity warfarin therapeutic range: 2.5 to 3.5 Blood (Blood, Capillary) 05/09/2024 12:40 PM SUPERVISOR ALUMINUM BOAT ASSEMBLY 05/09/2024 12:39 PM SUPERVISOR ALUMINUM BOAT ASSEMBLY us Patrick Erickson D.O. LAB POCT ORDERABLES - CARLOS ENRIQUE CE Final Result [facility] [address] [place] [address], [facility] FB60 [facility] in [address] [address] documented in this encounter Visit Diagnoses Diagnosis [...] Depression Total Score: 9 02/23/20 7:41 PM SUPERVISOR ALUMINUM BOAT ASSEMBLY documented as of this encounter Care Teams Dynamo Repairer Relationship Specialty Start Date End Date Patrick Erickson D.O. [address] [place] [address] PCP - General Internal Medicine 08/12/22 documented as of this encounter
--- OUTSIDE RECORDS SUMMARY | 2024-06-06 17:39 | XMS_ITS | Encounter Summary ---
Author Organization [facility] Address [address] [place] [address] Care Team Providers Care Assembler Erector Name Role Phone Patrick Erickson D.O. Primary Care Provider +1- [phone] Encounter Details Date Type Department Care Team (Latest Contact Info) Description 05/25/2024 11:20 AM CDT - 05/25/2024 11:59 PM CDT Hospital Encounter Department of Laboratory Medicine in [place], [place] [address] [place] [phone] Patrick Erickson D.O. 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 More than 4 times [...] Answer Date Recorded PHQ-2 Score 4 05/15/2024 [facility] of Occupat ional Health - Occupational Stress [...] AM CDT Legal Sex Female 9:57 PM ADVISOR [employer] Gender Identity Female 09/24/2022 9:59 PM CDT [...] by mouth daily. 90 tablet 3 05/15/2024 gijnwbl-xwwb-wq ymy-bysi-ftubnf 100 mg-150 mg- 50 mg-150 mg capsule [...] Appointment Department of Laboratory Medicine in [address] [place] [phone] Patrick Erickson D.O. [address] [address] 06/09/2024 12:00 PM CDT Anticoagulation Visit Department of Anticoagulation in [place], [place] [address] [place] [address] Patrick Erickson D.O. [address] [place] [address] documented as of this encounter Procedures Procedure [...] - CARLOS ENRIQUE CE Final Result [facility] [address] [place] [address], [facility] [address] [facility] in [place] [address] [place] [address] documented in this encounter Visit Diagnoses Diagnosis [...] documented as of this encounter Care Teams Assembler Erector Relationship Specialty Start Date End Date Patrick Erickson D.O. [address] [place] [phone] PCP - General Internal Medicine 08/12/22 documented as of this encounter
--- OUTSIDE RECORDS SUMMARY | 2024-06-06 17:39 | XMS_ITS | Encounter Summary ---
Author Organization [facility] Address [address] [place] [address] Care Team Providers Care Proof Passer Name Role Phone Patrick Erickson D.O. Primary Care Provider +1- [phone] Encounter Details Date Type Department Care Team (Latest Contact Info) Description 06/06/2024 10:48 AM CDT Hospital Encounter Department of Laboratory Medicine in [place], [place] [address] [place] [phone] Patrick Erickson D.O. 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 More than 4 times [...] Answer Date Recorded PHQ-2 Score 4 05/15/2024 [facility] of Occupat ional Health - Occupational Stress [...] your living situation today? I have a [facility] place to live 07/01/2023 Education Answer Date Recorded What is the highest level of school you have completed or the highest degree you have received? Associate degree: occupational, technical, or vocational program 05/30/2022 Comments No Sex and Gender Information Value Date Recorded Sex Assigned at Female 12/19/2021 3:32 AM CDT Legal Sex Female 9:57 PM BAND SINGER Gender Identity Female 09/24/2022 9:59 PM CDT Sexual Orientation Straight 12/19/2021 3: 32 AM CDT documented as of this encounter Plan of Treatment Upcoming Encounters Date Type Department Care Team (Latest Contact Info) Description 06/09/2024 11:20 AM CDT Appointment Department of Laboratory Medicine in [address] [phone] Patrick Erickson D.O. [address] [place] [address] 06/09/2024 12:00 PM CDT Anticoagulation Visit Department of Anticoagulation in [place], [place] [address] [place] [address] Patrick Erickson D.O. [address] [place] [address] documented as of this encounter [...] D.O. LAB BLOOD ADD-ON Final Res ult [facility] [address] [place] [address], [place] [employer] [facility] in [place] [address] [place] [address] * (ABNORMAL) INR Reflex, POCT, Blood (06/06/2024 [...] - CARLOS ENRIQUE CE Final Result [facility] [address] [place] [address], [facility] [address] [facility] [place] [address] [place] [address] documented in this encounter Visit Diagnoses Diagnosis [...] documented as of this encounter Care Teams Proof Passer Relationship Specialty Start Date End Date Patrick Erickson D.O. [address] [place] [phone] PCP - General Internal Medicine 08/12/22 documented as of this encounter
--- OUTSIDE RECORDS SUMMARY | 2024-06-06 17:40 | XMS_ITS | Encounter Summary ---
Author Organization [facility] Address [address] [place] [address] Care Team Providers Care Sharepoint Admin Name Role Phone Patrick Erickson D.O. Primary Care Provider +1- [phone] Reason for Visit * Outpatient (Routine) - Authorized Specialty Diagnoses / Procedures Referred By Contkarri t Referred To Contact Anticoagulation Patrick Erickson D.O. [address] [place] [address] Phone: tel: fax: [facility] Region Referral ID Status Reason Start Date Expiration Date V isits Requested Visits Authorized [id number] Authorized 03/03/2024 09/02/2025 [address] Encounter Details Date Type Department Care Team (Latest Contact Info) Description 06/06/2024 11:30 AM CDT Anticoagulation Visit Department of Anticoagulation in [place], [place] [address] [place] [address] Patrick Erickson D.O. 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 More than 4 times [...] Answer Date Recorded PHQ-2 Score 4 05/15/2024 [facility] [place] of Occupat ional [facility] - Occupational Stress Questionnaire [...] your living situation today? I have a [facility] place to live 07/01/2023 Education Answer Date Recorded What is the highest level of school you have completed or the highest degree you have received? Associate degree: occupational, technical, or vocational program 05/30/2022 Comments No Sex and Gender Information Value Date Recorded Sex Assigned at Female 12/19/2021 3:32 AM CDT Legal Sex Female 9:57 PM SPA ATTENDANT Gender Identity Female 09/24/2022 9:59 PM [...] please call Primary Care Anticoagulation Program at [phone] from 7:30 am to 4:30 pm. Wednesday-Wednesday [...] if you start any herbal or other [id number]-ilt-[id number] product (check with your doctor, a nurse, [...] CDT Appointment Department of Laboratory Medicine in [place], [place] [address] [place] [address] Patrick Erickson D.O. [address] [place] [address] 06/09/2024 12:00 PM CDT Anticoagulation Visit Department of Anticoagulation in [place], [place] [address] [place] [address] Patrick Erickson D.O. 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 [address], [place] [address] PCP - General Internal Medicine 08/12/22 documented as of this encounter
--- OUTSIDE RECORDS SUMMARY | 2024-06-06 17:40 | XMS_ITS | Continuity of Care Document ---
Author Organization [facility] Address [address] [place] [address] Care Team Providers Care Web Content Editor Name Role Phone Patrick Erickson D.O. Primary Care Provider [phone]- [phone] Source Comments Patient records contain information from all sites at [facility]. For routine questions regarding patient records, call [phone] during business hours, M-F 8:00 AM - 5:00 PM Central Time. Record requests for emergency care only can be directed to [phone] at any time.[facility] Encounters Date Type Department Care Team Description 06/06/2024 11:30 AM CDT Anticoagulation Visit Department of Anticoagulation in [place], [place] [address] [place] [address] Patrick Erickson D.O. 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 Hypertensive Heart And Chronic Kidney Disease With Heart Failure And Stage 1 To 4 Chronic Kidney Disease Or Unspecified Chronic Kidney Disease (HCC); Hyperlipidemia On Treatment; Atrial Fibrillation Paroxysmal (HCC); Monitoring For Therapeutic Drug Therapy; Longterm (Current) Anticoagulant Treatment Discharge Disposition: Home or Self Care 05/24/2024 10:30 AM CDT Anticoagulation Visit Department of Anticoagulation in [place], [place] [address] [place] [phone] Patrick Erickson D.O. 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 Hypertensive Heart And Chronic Kidney Disease With Heart Failure And Stage 1 To 4 Chronic Kidney Disease Or Unspecified Chronic Kidney Disease (HCC) (Primary Dx); Hyperlipidemia On Treatment; Atrial Fibrillation Paroxysmal (HCC); Monitoring For Therapeutic Drug Therapy; Longterm (Current) Anticoagulant Treatment 05/23/2024 3:20 PM CDT - 05/23/2024 11:59 PM CDT Hospital Encounter Department of Laboratory Medicine in [address] [address] Patrick Erickson D.O. 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 05/09/2024 Refill Department of Internal Medicine in [place], [place] [address] [place] [address] Patrick Erickson D.O. Med Refill 05/09/2024 1:30 PM ASSOCIATE PROFESSOR COMPUTER SCIENCE Anticoagulation Visit Department of Anticoagulation in [place], [place] [address] [place] [phone] Patrick Erickson D.O. Hypertensive Heart And Chronic Kidney Disease With Heart Failure And Stage 1 To 4 Chronic Kidney Disease Or Unspecified Chronic Kidney Disease (HCC) (Primary Dx); Hyperlipidemia On Treatment; Atrial Fibrillation Paroxysmal (HCC); Monitoring For Therapeutic Drug Therapy; Longterm (Current) Anticoagulant Treatment 05/09/2024 12:26 PM ASSOCIATE PROFESSOR COMPUTER SCIENCE - 05/09/2024 11:59 PM ASSOCIATE PROFESSOR COMPUTER SCIENCE Hospital Encounter Department of Laboratory Medicine in [address] [address] Patrick Erickson D.O. 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 Atrial Fibrillation Paroxysmal (HCC); Monitoring For Therapeutic Drug Therapy; Longterm (Current) Anticoagulant Treatment Discharge Disposition: Home or Self Care 04/28/2024 3:00 PM ASSOCIATE PROFESSOR COMPUTER SCIENCE Anticoagulation Visit Department of Anticoagulation in [place], [place] [address] [place] [phone] Patrick Erickson D.O. 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 Hypertensive Heart And Chronic Kidney Disease With Heart Failure And Stage 1 To 4 Chronic Kidney Disease Or Unspecified Chronic Kidney Disease (HCC); Hyperlipidemia On Treatment; Atrial Fibrillation Paroxysmal (HCC); Monitoring For Therapeutic Drug Therapy; Longterm (Current) Anticoagulant Treatment Discharge Disposition: Home or Self Care 04/10/2024 12:30 PM ASSOCIATE PROFESSOR COMPUTER SCIENCE Anticoagulation Visit Department of Anticoagulation in [place], [place] [address] [place] [phone] Patrick Erickson D.O. 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 Hypertensive Heart And Chronic Kidney Disease With Heart Failure And Stage 1 To 4 Chronic Kidney Disease Or Unspecified Chronic Kidney Disease (HCC) (Primary Dx); Hyperlipidemia On Treatment; Atrial Fibrillation Paroxysmal (HCC); Monitoring For Therapeutic Drug Therapy; Longterm (Current) Anticoagulant Treatment 03/20/2024 4:00 PM ASSOCIATE PROFESSOR COMPUTER SCIENCE - 03/20/2024 11:59 PM ASSOCIATE PROFESSOR COMPUTER SCIENCE Hospital Encounter Department of Laboratory Medicine in [place], [place] [address] [place] [address] Patrick Erickson D.O. 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 Hypertensive Heart And Chronic Kidney Disease With Heart Failure And Stage 1 To 4 Chronic Kidney Disease Or Unspecified Chronic Kidney Disease (HCC); Hyperlipidemia On Treatment; Atrial Fibrillation Paroxysmal (HCC); Monitoring For Therapeutic Drug Therapy; Longterm (Current) Anticoagulant Treatment Discharge Disposition: Home or Self Care 03/03/2024 8:40 AM ASSOCIATE PROFESSOR COMPUTER SCIENCE Anticoagulation Visit Department of Anticoagulation in [place], [place] [address] [place] [address] Patrick Erickson D.O. Hypertensive Heart And Chronic Kidney Disease With Heart Failure And Stage 1 To 4 Chronic Kidney Disease Or Unspecified Chronic Kidney Disease (HCC) (Primary Dx); Hyperlipidemia On Treatment; Atrial Fibrillation Paroxysmal (HCC); Monitoring For Therapeutic Drug Therapy; Longterm (Current) Anticoagulant Treatment 03/02/2024 4:11 PM ASSOCIATE PROFESSOR COMPUTER SCIENCE - 03/02/2024 11:59 PM ASSOCIATE PROFESSOR COMPUTER SCIENCE Hospital Encounter Department of Laboratory Medicine in [address] [phone] Patrick Erickson D.O. 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 Med Question 02/28/2024 3:45 PM ASSOCIATE PROFESSOR COMPUTER SCIENCE Nurse Only Department of Family Medicine, [facility], in [place], [place] [address] [place] [address] Patrick Erickson D.O. Deflieger, Maria P, L.P.N. Nurse Visit (hypertension) 02/24/2024 10:10 AM ASSOCIATE PROFESSOR COMPUTER SCIENCE Anticoagulation Visit Department of Anticoagulation in [place], [place] [address] [place] [phone] Patrick Erickson D.O. Atrial Fibrillation Paroxysmal (HCC) (Primary Dx); Hypertensive Heart And Chronic Kidney Disease With Heart Failure And Stage 1 To 4 Chronic Kidney Disease Or Unspecified Chronic Kidney Disease (HCC); Hyperlipidemia On Treatment; Monitoring For Therapeutic Drug Therapy; Longterm (Current) Anticoagulant Treatment 02/24/2024 8:55 AM ASSOCIATE PROFESSOR COMPUTER SCIENCE - 02/24/2024 11:59 PM ASSOCIATE PROFESSOR COMPUTER SCIENCE Hospital Encounter Department of Laboratory Medicine in [address] [phone] Patrick Erickson D.O. 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 Med Question 02/18/2024 11:30 AM ASSOCIATE PROFESSOR COMPUTER SCIENCE Anticoagulation Visit Department of Anticoagulation in [place], [place] [address] [place] [address] Patrick Erickson D.O. 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 Hypertensive Heart And Chronic Kidney Disease With Heart Failure And Stage 1 To 4 Chronic Kidney Disease Or Unspecified Chronic Kidney Disease (HCC); Hyperlipidemia On Treatment; Atrial Fibrillation Paroxysmal (HCC); Monitoring For Therapeutic Drug Therapy; Longterm (Current) Anticoagulant Treatment Discharge Disposition: Home or Self Care 02/16/2024 Refill Department of Internal Medicine in [address] [address] Soheila Zapata P.A.-C., M.S. Med Refill 02/14/2024 Clinical Communication Department of Internal Medicine in [place], [place] [address] [place] [phone] Patrick Erickson D.O. 02/14/2024 4:20 PM ASSOCIATE PROFESSOR COMPUTER SCIENCE Office Visit Department of Internal Medicine in [place], [place] [address] [place] [phone] Patrick Erickosn D.O. Hypertensive Heart And Chronic Kidney Disease With Heart Failure And Stage 1 To 4 Chronic Kidney Disease Or Unspecified Chronic Kidney Disease (HCC) (Primary Dx) 02/10/2024 8:30 AM ASSOCIATE PROFESSOR COMPUTER SCIENCE Anticoagulation Visit Department of Anticoagulation in [place], [place] [address] [place] [address] Patrick Erickson D.O. 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 Med Refill 01/31/2024 11:30 AM ASSOCIATE PROFESSOR COMPUTER SCIENCE Anticoagulation Visit Department of Anticoagulation in [place], [place] [address] [place] [phone] Patrick Erickson D.O. Hypertensive Heart And Chronic Kidney Disease With Heart Failure And Stage 1 To 4 Chronic Kidney Disease Or Unspecified Chronic Kidney Disease (HCC) (Primary Dx); Hyperlipidemia On Treatment; Atrial Fibrillation Paroxysmal (HCC); Monitoring For Therapeutic Drug Therapy; Longterm (Current) Anticoagulant Treatment 01/31/2024 10:34 AM ASSOCIATE PROFESSOR COMPUTER SCIENCE - 01/31/2024 11:59 PM ASSOCIATE PROFESSOR COMPUTER SCIENCE Hospital Encounter Department of Laboratory Medicine in [address] [phone] Patrick Erickson D.O. Hypertensive Heart And Chronic Kidney Disease With Heart Failure And Stage 1 To 4 Chronic Kidney Disease Or Unspecified Chronic Kidney Disease (HCC); Hyperlipidemia On Treatment; Atrial Fibrillation Paroxysmal (HCC); Monitoring For Therapeutic Drug Therapy; Longterm (Current) Anticoagulant Treatment Discharge Disposition: Home or Self Care 01/27/2024 7:50 AM ASSOCIATE PROFESSOR COMPUTER SCIENCE - 01/27/2024 11:59 PM ASSOCIATE PROFESSOR COMPUTER SCIENCE Hospital Encounter Department of Laboratory Medicine in [address] [address] Patrick Erickson D.O. 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 Communication 01/13/2024 7:44 AM ASSOCIATE PROFESSOR COMPUTER SCIENCE - 01/13/2024 11:59 PM ASSOCIATE PROFESSOR COMPUTER SCIENCE Hospital Encounter Department of Laboratory Medicine in [address] [phone] Patrick Erickson D.O. Hypertensive Heart And Chronic Kidney Disease With Heart Failure And Stage 1 To 4 Chronic Kidney Disease Or Unspecified Chronic Kidney Disease (HCC); Hyperlipidemia On Treatment; Atrial Fibrillation Paroxysmal (HCC); Monitoring For Therapeutic Drug Therapy; Longterm (Current) Anticoagulant Treatment Discharge Disposition: Home or Self Care 01/13/2024 8:30 AM ASSOCIATE PROFESSOR COMPUTER SCIENCE Anticoagulation Visit Department of Anticoagulation in [address] [address] Patrick Erickson D.O. 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 Blood Pressure 01/11/2024 3:45 PM ASSOCIATE PROFESSOR COMPUTER SCIENCE Nurse Only Department of Family Medicine, [facility], in [address] [phone] Patrick Erickson D.O. Davis, Connor R, L.P.N. Blood Pressure Check 01/06/2024 7:50 AM CDT - 01/06/2024 11:59 PM CDT Hospital Encounter Department of Laboratory Medicine in [address] [phone] Patrick Erickson D.O. 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 Hypertensive Heart And Chronic Kidney Disease With Heart Failure And Stage 1 To 4 Chronic Kidney Disease Or Unspecified Chronic Kidney Disease (HCC) (Primary Dx); Hyperlipidemia On Treatment; Atrial Fibrillation Paroxysmal (HCC); Monitoring For Therapeutic Drug Therapy; Longterm (Current) Anticoagulant Treatment 12/29/2023 8:40 AM CDT Anticoagulation Visit Department of Anticoagulation in [place], [place] [address] [place] [phone] Soheila Zapata P.A.-C., M.S. Hypertensive Heart And Chronic Kidney Disease With Heart Failure And Stage 1 To 4 Chronic Kidney Disease Or Unspecified Chronic Kidney Disease (HCC) (Primary Dx); Hyperlipidemia On Treatment; Atrial Fibrillation Paroxysmal (HCC); Monitoring For Therapeutic Drug Therapy; Longterm (Current) Anticoagulant Treatment 12/28/2023 1:40 PM CDT Office Visit Department of Internal Medicine in [place], [place] [address] [place] [address] Patrick Erickson D.O. Robbie Bowles, R.N. Annual Medicare Examination Return (Primary Dx) 12/28/2023 2:29 PM CDT - 12/28/2023 11:59 PM CDT Hospital Encounter Department of Laboratory Medicine in [address] [address] Patrick Erickson D.O. Hypertensive Heart And Chronic Kidney Disease With Heart Failure And Stage 1 To 4 Chronic Kidney Disease Or Unspecified Chronic Kidney Disease (HCC); Hyperlipidemia On Treatment; Atrial Fibrillation Paroxysmal (HCC); Monitoring For Therapeutic Drug Therapy; Longterm (Current) Anticoagulant Treatment Discharge Disposition: Home or Self Care 12/28/2023 1:00 PM CDT Office Visit Department of Internal Medicine in [place], [place] [address] [place] [address] Patrick Erickson D.O. 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 Anticoagulation (Unable to come in for INR today) 12/15/2023 Clinical Communication Department of Anticoagulation in [place], [place] [address] [place] [phone] Alea Eaton R.N. Anticoagulation (DOAC) 12/15/2023 4:49 PM CDT - 12/15/2023 11:59 PM CDT Hospital Encounter Department of Laboratory Medicine in [address] [address] Patrick Erickson D.O. Atrial Fibrillation Paroxysmal (HCC) Discharge Disposition: Home or Self Care 12/14/2023 11:30 AM CDT Anticoagulation Visit Department of Anticoagulation in [address] [address] Soheila Zapata P.A.-C., M.S. 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 Atrial Fibrillation Paroxysmal (HCC) Discharge Disposition: Home or Self Care 12/10/2023 Refill Department of Internal Medicine in [address] [address] Patrick Erickson D.O. Med Refill 12/06/2023 Clinical Communication Department of Anticoagulation in [address] [address] Isa Callahan, RAziza Anticoagulation (INR - ordered by provider ) 12/06/2023 Clinical Communication Department of Cardiovascular Diseases in [address] [address] Roberto Dumont APRN C.NHowieP. Med Question 12/03/2023 2:50 PM CDT - 12/03/2023 11:59 PM CDT Hospital Encounter Department of Laboratory Medicine in [address] [address] Patrick Erickson D.O. 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 Arm Injury; Post Ed Visit Follow-up 11/29/2023 Clinical Communication Department of Family Medicine, [facility] in [place], [place] [address] [place] [address] Butch Sanchez R.N. COVID Treatment Review 11/27/2023 Nurse Triage Department of Internal Medicine in [place], [place] [address] [address] Kari Olivarez R.N. Cough 11/22/2023 4:00 PM CDT Anticoagulation Visit Department of Anticoagulation in [place], [place] [address] [place] [address] Soheila Zapata P.A.-C., M.S. 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 11/02/2023 Clinical Communication Department of Anticoagulation in [address] [address] Cullen Guillen R.N. Anticoagulation ([facility] Update-New PCP) 11/02/2023 3:30 PM CDT Anticoagulation Visit Department of Anticoagulation in [address] [address] Soheila Zapata P.A.-Ashish., M.S. 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 Atrial Fibrillation Paroxysmal (HCC) Discharge Disposition: Home or Self Care 10/04/2023 3:50 PM CDT Anticoagulation Visit Department of Anticoagulation in [place], [place] [address] [place] [phone] Soheila Zapata P.A.-C., M.S. 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 Anticoagulation (Out of range INR.) 10/01/2023 2:30 PM CDT - 10/01/2023 11:59 PM CDT Hospital Encounter Department of Laboratory Medicine in [place], [place] [facility] [address] [address] Patrick Erickson D.O. 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 Hypertensive Heart With Heart Failure And Chronic Kidney Disease (CKD) Stage 3a Glomerular Filtration Rate (GFR) 45 To 59 (HCC) (Primary Dx); Hyperlipidemia On Treatment; Atrial Fibrillation Paroxysmal (HCC); Monitoring For Therapeutic Drug Therapy; Longterm (Current) Anticoagulant Treatment 09/24/2023 2:50 PM CDT - 09/24/2023 11:59 PM CDT Hospital Encounter Department of Laboratory Medicine in [address] [address] Patrick Erickson D.O. 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 Hypertensive Heart With Heart Failure And Chronic Kidney Disease (CKD) Stage 3a Glomerular Filtration Rate (GFR) 45 To 59 (HCC) (Primary Dx); Hyperlipidemia On Treatment; Atrial Fibrillation Paroxysmal (HCC); Monitoring For Therapeutic Drug Therapy; Longterm (Current) Anticoagulant Treatment 09/21/2023 11:55 AM CDT - 09/21/2023 11:59 PM CDT Hospital Encounter Department of Laboratory Medicine in [address] [address] Patrick Erickson D.Claudia Hypertensive Heart With Heart Failure And Chronic Kidney Disease (CKD) Stage 3a Glomerular Filtration Rate (GFR) 45 To 59 (HCC); Hyperlipidemia On Treatment; Atrial Fibrillation Paroxysmal (HCC); Monitoring For Therapeutic Drug Therapy; 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 Hypertensive Heart With Heart Failure And Chronic Kidney Disease (CKD) Stage 3a Glomerular Filtration Rate (GFR) 45 To 59 (HCC) (Primary Dx); Hyperlipidemia On Treatment; Atrial Fibrillation Paroxysmal (HCC); Monitoring For Therapeutic Drug Therapy; Longterm (Current) Anticoagulant Treatment 09/08/2023 3:20 PM CDT - 09/08/2023 11:59 PM CDT Hospital Encounter Department of Laboratory Medicine in [address] [address] Patrick Erickson D.O. Hypertensive Heart With Heart Failure And Chronic Kidney Disease (CKD) Stage 3a Glomerular Filtration Rate (GFR) 45 To 59 (HCC); Hyperlipidemia On Treatment; Atrial Fibrillation Paroxysmal (HCC); Monitoring For Therapeutic Drug Therapy; Longterm (Current) Anticoagulant Treatment Discharge Disposition: Home or Self Care 09/02/2023 4:00 PM CDT Anticoagulation Visit Department of Anticoagulation in [place], [place] [address] [place] [phone] Soheila Zapata P.A.-C., M.S. Atrial Fibrillation Paroxysmal (HCC) (Primary Dx); Hypertensive Heart With Heart Failure And Chronic Kidney Disease (CKD) Stage 3a Glomerular Filtration Rate (GFR) 45 To 59 (HCC); Hyperlipidemia On Treatment; Monitoring For Therapeutic Drug Therapy; Longterm (Current) Anticoagulant Treatment 09/02/2023 3:01 PM CDT - 09/02/2023 11:59 PM CDT Hospital Encounter Department of Laboratory Medicine in [address] [phone] Patrick Erickson D.O. Hypertensive Heart With Heart Failure And Chronic Kidney Disease (CKD) Stage 3a Glomerular Filtration Rate (GFR) 45 To 59 (HCC); Hyperlipidemia On Treatment; Atrial Fibrillation Paroxysmal (HCC); Monitoring For Therapeutic Drug Therapy; Longterm (Current) Anticoagulant Treatment Discharge Disposition: Home or Self Care 08/27/2023 2:30 PM CDT Anticoagulation Visit Department of Anticoagulation in [address] [address] Soheila Zapata P.A.-C., M.S. Hypertensive Heart With Heart Failure And Chronic Kidney Disease (CKD) Stage 3a Glomerular Filtration Rate (GFR) 45 To 59 (HCC) (Primary Dx); Hyperlipidemia On Treatment; Atrial Fibrillation Paroxysmal (HCC); Monitoring For Therapeutic Drug Therapy; Longterm (Current) Anticoagulant Treatment 08/27/2023 1:50 PM CDT - 08/27/2023 11:59 PM CDT Hospital Encounter Department of Laboratory Medicine in [address] [phone] Patrick Erickson D.O. 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 Hypertensive Heart With Heart Failure And Chronic Kidney Disease (CKD) Stage 3a Glomerular Filtration Rate (GFR) 45 To 59 (HCC); Hyperlipidemia On Treatment; Atrial Fibrillation Paroxysmal (HCC); Monitoring For Therapeutic Drug Therapy; Longterm (Current) Anticoagulant Treatment Discharge Disposition: Home or Self Care 08/17/2023 3:50 PM CDT Anticoagulation Visit Department of Anticoagulation in [place], [place] [address] [place] [phone] Soheila Zapata P.A.-C., M.S. 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 Anticoagulation (INR OOR) 08/16/2023 1:24 PM CDT - 08/16/2023 11:59 PM CDT Hospital Encounter Department of Laboratory Medicine in [address] [phone] Patrick Erickson D.O. 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 Hypertensive Heart With Heart Failure And Chronic Kidney Disease (CKD) Stage 3a Glomerular Filtration Rate (GFR) 45 To 59 (HCC) (Primary Dx); Hyperlipidemia On Treatment; Atrial Fibrillation Paroxysmal (HCC); Monitoring For Therapeutic Drug Therapy; Longterm (Current) Anticoagulant Treatment 08/05/2023 Clinical Communication Department of Anticoagulation in [place], [place] [address] [place] [address] Isa Callahan R.N. Anticoagulation (Unable to reach ) 08/05/2023 2:36 PM CDT - 08/05/2023 11:59 PM CDT Hospital Encounter Department of Laboratory Medicine in [place], [place] [address] [phone] Patrick Erickson D.O. 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 Atrial Fibrillation Paroxysmal (HCC); Hypertensive Heart With Heart Failure And Chronic Kidney Disease (CKD) Stage 3a Glomerular Filtration Rate (GFR) 45 To 59 (HCC); Screening Examination Diabetes Mellitus; Hyperlipidemia On Treatment Discharge Disposition: Home or Self Care 07/06/2023 9:00 AM CDT Anticoagulation Visit Department of Anticoagulation in [place], [place] [address] [place] [address] Soheila Zapata P.A.-C., M.S. 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 07/02/2023 10:15 AM CDT Nurse Only Department of Family Medicine, [facility], in [address] [address] Patrick Erickson D.O. McHugh, Wendy A, L.P.N. Nurse Visit (BP check ) 06/24/2023 8:00 AM CDT Anticoagulation Visit Department of Anticoagulation in [place], [place] [address] [place] [phone] Patrick Erickson D.O. Hypertensive Heart With Heart Failure And Chronic Kidney Disease (CKD) Stage 3a Glomerular Filtration Rate (GFR) 45 To 59 (HCC) (Primary Dx); Atrial Fibrillation Paroxysmal (HCC); Hyperlipidemia On Treatment; Monitoring For Therapeutic Drug Therapy; Longterm (Current) Anticoagulant Treatment 06/23/2023 Refill Department of Cardiovascular Diseases in [place], [place] [address] [place] [phone] Roberto Dumont, RAILCAR BRAKE OPERATOR, C.N.P. Med Refill 06/22/2023 Clinical Communication Department of Anticoagulation in [place] [address] [place] [address] Grace Oneill R.N. Anticoagulation (Unable to Reach) 06/22/2023 9:58 AM CDT - 06/22/2023 11:59 PM CDT Hospital Encounter Department of Laboratory Medicine in [address] [address] Soheila Zapata P.A.-C., M.S. 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 Atrial Fibrillation Unspecified (HCC) Discharge Disposition: Home or Self Care 06/22/2023 1:00 PM CDT Office Visit Department of Internal Medicine in [address] [phone] Patrick Erickson D.O. 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 Hypertensive Heart With Heart Failure And Chronic Kidney Disease (CKD) Stage 3a Glomerular Filtration Rate (GFR) 45 To 59 (HCC) (Primary Dx); Hyperlipidemia On Treatment; Atrial Fibrillation Paroxysmal (HCC); Monitoring For Therapeutic Drug Therapy; Longterm (Current) Anticoagulant Treatment 05/27/2023 11:10 AM CDT Anticoagulation Visit Department of Anticoagulation in [place], [place] [address] [place] [address] Soheila Zapata P.A.-C., M.S. 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 Hypertensive Heart With Heart Failure And Chronic Kidney Disease (CKD) Stage 3a Glomerular Filtration Rate (GFR) 45 To 59 (HCC); Hyperlipidemia On Treatment; Atrial Fibrillation Paroxysmal (HCC); Monitoring For Therapeutic Drug Therapy; Longterm (Current) Anticoagulant Treatment Discharge Disposition: Home or Self Care 05/21/2023 2:40 PM CDT - 05/21/2023 11:59 PM CDT Hospital Encounter Department of Laboratory Medicine in [place], [place] [address], [place] [address] Patrick Erickson D.O. Atrial Fibrillation Paroxysmal (HCC) Discharge Disposition: Home or Self Care 05/21/2023 3:20 PM CDT Anticoagulation Visit Department of Anticoagulation in [place], [place] [address] [place] [phone] Soheila Zapata P.A.-C., M.S. 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 05/07/2023 12:25 PM ASSOCIATE PROFESSOR COMPUTER SCIENCE - 05/07/2023 11:59 PM ASSOCIATE PROFESSOR COMPUTER SCIENCE Hospital Encounter Department of Laboratory Medicine in [place], [place] [address] [address] Patrick Erickson D.O. 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 Hypertensive Heart With Heart Failure And Chronic Kidney Disease (CKD) Stage 3a Glomerular Filtration Rate (GFR) 45 To 59 (HCC) (Primary Dx); Hyperlipidemia On Treatment; Atrial Fibrillation Paroxysmal (HCC); Monitoring For Therapeutic Drug Therapy; Longterm (Current) Anticoagulant Treatment 04/30/2023 12:24 PM ASSOCIATE PROFESSOR COMPUTER SCIENCE - 04/30/2023 11:59 PM ASSOCIATE PROFESSOR COMPUTER SCIENCE Hospital Encounter Department of Laboratory Medicine in [address] [address] Patrick Erickson D.O. 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 Med Refill 04/28/2023 Refill Department of Internal Medicine in [address] [address] Anna Iniguez APRN, C.N.P., D.N.P. Med Refill 04/27/2023 11:20 AM ASSOCIATE PROFESSOR COMPUTER SCIENCE Office Visit Department of Internal Medicine in [address] [address] Anna Iniguez APRN, C.N.P., D.N.P. Dermatitis Perioral (Primary Dx); Hypertensive Heart With Heart Failure And Chronic Kidney Disease (CKD) Stage 3a Glomerular Filtration Rate (GFR) 45 To 59 (HCC); Atrial Fibrillation Paroxysmal (HCC); Allergy Unspecified Initial 04/18/2023 Refill Department of Internal Medicine in [address] [address] Anna Iniguez APRN, C.N.P., D.N.P. Med Refill 04/02/2023 2:38 PM ASSOCIATE PROFESSOR COMPUTER SCIENCE - 04/02/2023 11:59 PM ASSOCIATE PROFESSOR COMPUTER SCIENCE Hospital Encounter Department of Laboratory Medicine in [address] [address] Patrick Erickson D.O. Hypertensive Heart With Heart Failure And Chronic Kidney Disease (CKD) Stage 3a Glomerular Filtration Rate (GFR) 45 To 59 (HCC); Hyperlipidemia On Treatment; Atrial Fibrillation Paroxysmal (HCC); Monitoring For Therapeutic Drug Therapy; Longterm (Current) Anticoagulant Treatment Discharge Disposition: Home or Self Care 04/02/2023 3:30 PM ASSOCIATE PROFESSOR COMPUTER SCIENCE Anticoagulation Visit Department of Anticoagulation in [place], [place] [address] [place] [phone] Soheila Zapata P.A.-Ashish., M.S. Hypertensive Heart With Heart Failure And Chronic Kidney Disease (CKD) Stage 3a Glomerular Filtration Rate (GFR) 45 To 59 (HCC) (Primary Dx); Hyperlipidemia On Treatment; Atrial Fibrillation Paroxysmal (HCC); Monitoring For Therapeutic Drug Therapy; Longterm (Current) Anticoagulant Treatment 03/19/2023 4:10 PM ASSOCIATE PROFESSOR COMPUTER SCIENCE Anticoagulation Visit Department of Anticoagulation in [place], [place] [address] [place] [phone] Soheila Zapata P.A.-Ashish., M.S. 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 Hypertensive Heart With Heart Failure And Chronic Kidney Disease (CKD) Stage 3a Glomerular Filtration Rate (GFR) 45 To 59 (HCC); Monitoring For Therapeutic Drug Therapy; Atrial Fibrillation Paroxysmal (HCC) Discharge Disposition: Home or Self Care 03/19/2023 Orders Only Department of Anticoagulation in [place], [place] [address] [place] [phone] Soham Chino R.N. Hypertensive Heart With Heart Failure And Chronic Kidney Disease (CKD) Stage 3a Glomerular Filtration Rate (GFR) 45 To 59 (HCC) (Primary Dx); Monitoring For Therapeutic Drug Therapy; Atrial Fibrillation Paroxysmal (HCC) 03/19/2023 Nurse Triage Department of Internal Medicine in [place], [place] [address] [place] [address] Rosa Isela Pelayo R.N. Urinary Symptom 03/12/2023 2:50 PM ASSOCIATE PROFESSOR COMPUTER SCIENCE - 03/12/2023 11:59 PM ASSOCIATE PROFESSOR COMPUTER SCIENCE Hospital Encounter Department of Laboratory Medicine in [address] [address] Patrick Erickson D.O. Atrial Fibrillation Paroxysmal (HCC); Monitoring For Therapeutic Drug Therapy; Longterm (Current) Anticoagulant Treatment Discharge Disposition: Home or Self Care 03/12/2023 4:20 PM ASSOCIATE PROFESSOR COMPUTER SCIENCE Anticoagulation Visit Department of Anticoagulation in [place], [place] [address] [place] [phone] Soheila Zapata P.A.-C., M.S. 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 Hypertensive Heart With Heart Failure And Chronic Kidney Disease (CKD) Stage 3a Glomerular Filtration Rate (GFR) 45 To 59 (HCC) (Primary Dx); Hyperlipidemia On Treatment; Atrial Fibrillation Paroxysmal (HCC); Monitoring For Therapeutic Drug Therapy; Longterm (Current) Anticoagulant Treatment 03/05/2023 4:07 PM ASSOCIATE PROFESSOR COMPUTER SCIENCE - 03/05/2023 11:59 PM ASSOCIATE PROFESSOR COMPUTER SCIENCE Hospital Encounter Department of Laboratory Medicine in [place], [place] [address] [place] [address] Patrick Erickson D.O. Atrial Fibrillation Paroxysmal (HCC); Monitoring For Therapeutic Drug Therapy; Longterm (Current) Anticoagulant Treatment Discharge Disposition: Home or Self Care 03/05/2023 4:00 PM ASSOCIATE PROFESSOR COMPUTER SCIENCE Anticoagulation Visit Department of Anticoagulation in [place], [place] [address] [place] [phone] Soheila Zapata P.A.-C., M.S. 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 Atrial Fibrillation Paroxysmal (HCC); Monitoring For Therapeutic Drug Therapy; Longterm (Current) Anticoagulant Treatment Discharge Disposition: Home or Self Care 02/24/2023 Clinical Communication Department of Family Medicine, [facility] in [place], [place] [address] [place] [address] Medina Langston R.N. COVID Treatment Review; Error 02/24/2023 Nurse Triage Department of Internal Medicine in [place], [place] [address], [place] [address] Sandra Maravilla R.N. COVID Nurse Line (/) 02/22/2023 Nurse Triage Department of Internal Medicine in [place], [place] [address] [place] [address] Trish Smith R.N. Cough 02/16/2023 9:20 AM ASSOCIATE PROFESSOR COMPUTER SCIENCE - 02/16/2023 11:59 PM ASSOCIATE PROFESSOR COMPUTER SCIENCE Hospital Encounter Department of Laboratory Medicine in [place], [place] [address] [place] [address] Patrick Erickson D.O. Atrial Fibrillation Paroxysmal (HCC); Monitoring For Therapeutic Drug Therapy; Longterm (Current) Anticoagulant Treatment Discharge Disposition: Home or Self Care 02/16/2023 10:00 AM ASSOCIATE PROFESSOR COMPUTER SCIENCE Anticoagulation Visit Department of Anticoagulation in [place], [place] [address] [place] [phone] Soheila Zapata P.A.-C., M.S. 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 02/02/2023 12:30 PM ASSOCIATE PROFESSOR COMPUTER SCIENCE Anticoagulation Visit Department of Anticoagulation in [place], [place] [address] [place] [phone] Soheila Zapata P.A.-C., M.S. 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 Atrial Fibrillation Paroxysmal (HCC) (Primary Dx); Monitoring For Therapeutic Drug Therapy; Longterm (Current) Anticoagulant Treatment 01/26/2023 9:20 AM ASSOCIATE PROFESSOR COMPUTER SCIENCE - 01/26/2023 11:59 PM ASSOCIATE PROFESSOR COMPUTER SCIENCE Hospital Encounter Department of Laboratory Medicine in [address] [address] Patrick Erickson D.O. Atrial Fibrillation Paroxysmal (HCC); Monitoring For Therapeutic Drug Therapy; Longterm (Current) Anticoagulant Treatment Discharge Disposition: Home or Self Care 01/14/2023 Clinical Communication Department of Spine in [place], [place] [address] [place] [phone] Sirisha Valentino Follow-up ([facility] is calling to complete your 1-year follow-up PROMIS-CAT questionnaires. You will receive questionnaires at different timepoints in the future. You can complete the current questionnaires in your portal and no return call is necessary. If you have any questions, please call us at: [phone]. Thank you! / ) 12/15/2022 12:00 PM CDT Anticoagulation Visit Department of Anticoagulation in [place], [place] [address] [place] [address] Soheila Zapata P.A.-C., M.S. 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 Atrial Fibrillation Paroxysmal (HCC); Monitoring For Therapeutic Drug Therapy; Longterm (Current) Anticoagulant Treatment Discharge Disposition: Home or Self Care 11/17/2022 3:10 PM CDT Anticoagulation Visit Department of Anticoagulation in [place], [place] [address] [place] [phone] Soheila Zapata P.A.-C., M.S. 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 Atrial Fibrillation Paroxysmal (HCC); Monitoring For Therapeutic Drug Therapy; Longterm (Current) Anticoagulant Treatment Discharge Disposition: Home or Self Care 11/10/2022 12:40 PM CDT Anticoagulation Visit Department of Anticoagulation in [place], [place] [address] [place] [phone] Soheila Zapata P.A.-C., M.S. Atrial Fibrillation Paroxysmal (HCC) (Primary Dx); Monitoring For Therapeutic Drug Therapy; Longterm (Current) Anticoagulant Treatment 11/04/2022 12:33 PM CDT - 11/04/2022 11:59 PM CDT Hospital Encounter Department of Laboratory Medicine in [address] [phone] Patrick Erickson D.O. Atrial Fibrillation Paroxysmal (HCC); Monitoring For Therapeutic Drug Therapy; Longterm (Current) Anticoagulant Treatment Discharge Disposition: Home or Self Care 11/04/2022 2:30 PM CDT Anticoagulation Visit Department of Anticoagulation in [place], [place] [address] [place] [phone] Soheila Zapata P.A.-C., M.S. Atrial Fibrillation Paroxysmal (HCC) (Primary Dx); Monitoring For Therapeutic Drug Therapy; Longterm (Current) Anticoagulant Treatment 10/28/2022 8:00 AM CDT Anticoagulation Visit Department of Anticoagulation in [place], [place] [address] [place] [phone] Patrick Erickson D.O. 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 Anticoagulation (Unable to reach ) 10/27/2022 11:16 AM CDT - 10/27/2022 11:59 PM CDT Hospital Encounter Department of Laboratory Medicine in [address] [phone] Patrick Erickson D.O. 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 Anticoagulation (CCM-Enrollment) 10/12/2022 Orders Only Department of Internal Medicine in [address] [phone] Soheila Zapata P.A.-C., M.S. 10/12/2022 9:20 AM CDT - 10/12/2022 11:59 PM CDT Hospital Encounter Department of Laboratory Medicine in [address] [phone] Patrick Erickson D.O. 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 Atrial Fibrillation Paroxysmal (HCC) (Primary Dx); Longterm (Current) Anticoagulant Treatment; Monitoring For Therapeutic Drug Therapy 10/02/2022 8:00 AM CDT Anticoagulation Visit Department of Anticoagulation in [place], [place] [address] [place] [phone] Patrick Erickson D.O. 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 Anticoagulation 10/01/2022 8:50 AM CDT - 10/01/2022 11:59 PM CDT Hospital Encounter Department of Laboratory Medicine in [address] [address] Patrick Erickson D.O. Atrial Fibrillation Paroxysmal (HCC); Monitoring For Therapeutic Drug Therapy; Longterm (Current) Anticoagulant Treatment Discharge Disposition: Home or Self Care 09/17/2022 Orders Only Department of Internal Medicine in [place], [place] [address] [place] [address] Soheila Zapata P.A.-C., M.S. Hypertensive Heart With Heart Failure And Chronic Kidney Disease (CKD) Stage 3a Glomerular Filtration Rate (GFR) 45 To 59 (HCC) (Primary Dx) 09/17/2022 11:16 AM CDT - 09/17/2022 11:59 PM CDT Hospital Encounter Department of Laboratory Medicine in [address] [address] Patrick Erickson D.O. Monitoring For Therapeutic Drug Therapy Discharge Disposition: Home or Self Care 09/17/2022 10:20 AM CDT - 09/17/2022 11:15 AM CDT Hospital Encounter Department of Laboratory Medicine in [address] [address] Patrick Erickson D.O. Atrial Fibrillation Paroxysmal (HCC); Monitoring For Therapeutic Drug Therapy Discharge Disposition: Home or Self Care 09/17/2022 11:00 AM CDT Anticoagulation Visit Department of Anticoagulation in [place], [place] [address] [place] [address] Soheila Zapata P.A.-Ashish., M.S. 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 Atrial Fibrillation Paroxysmal (HCC) (Primary Dx); Monitoring For Therapeutic Drug Therapy; Longterm (Current) Anticoagulant Treatment 09/01/2022 1:00 PM CDT Office Visit Department of Cardiovascular Diseases in [place], [place] [address] [address] Roberto Dumont APRN, C.N.P. 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 Laceration Blood Vessel Left Index Finger Sequela (Primary Dx) 08/12/2022 Orders Only [facility] Patrick Erickson D.O. Monitoring For Therapeutic Drug Therapy 08/10/2022 11:11 AM CDT - 08/10/2022 11:59 PM CDT Hospital Encounter Department of Laboratory Medicine in [address] [address] Soheila Zapata P.A.-C., M.S. 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 Atrial Fibrillation Unspecified (HCC) (Primary Dx); Monitoring For Therapeutic Drug Therapy; Longterm (Current) Anticoagulant Treatment 08/07/2022 Clinical Communication Department of Anticoagulation in [place], [place] [address] [place] [phone] Lois Vidal R.N. Anticoagulation 07/27/2022 3:20 PM CDT Anticoagulation Visit Department of Anticoagulation in [place], [place] [address] [place] [phone] Soheila Zapata P.A.-C., M.S. Atrial Fibrillation Unspecified (HCC) (Primary Dx); Monitoring For Therapeutic Drug Therapy; Longterm (Current) Anticoagulant Treatment 07/27/2022 2:20 PM CDT - 07/27/2022 11:59 PM CDT Hospital Encounter Department of Laboratory Medicine in [address] [address] Soheila Zapata P.A.-C., M.S. Atrial Fibrillation Unspecified (HCC); Monitoring For Therapeutic Drug Therapy; Longterm (Current) Anticoagulant Treatment Discharge Disposition: Home or Self Care 06/29/2022 10:12 AM CDT - 06/29/2022 11:59 PM CDT Hospital Encounter Department of Laboratory Medicine in [address] [address] Soheila Zapata P.A.-C., M.S. Atrial Fibrillation Unspecified; Monitoring For Therapeutic Drug Therapy; Longterm (Current) Anticoagulant Treatment Discharge Disposition: Home or Self Care 06/29/2022 11:00 AM CDT Anticoagulation Visit Department of Anticoagulation in [address] [phone] Soheila Zapata P.A.-C., M.S. Atrial Fibrillation Unspecified (Primary Dx); Monitoring For Therapeutic Drug Therapy; Longterm (Current) Anticoagulant Treatment 06/19/2022 9:50 AM CDT - 06/19/2022 11:59 PM CDT Hospital Encounter Department of Laboratory Medicine in [address] [address] Soheila Zapata P.A.-C., M.S. 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 Atrial Fibrillation Unspecified; Monitoring For Therapeutic Drug Therapy; Longterm (Current) Anticoagulant Treatment Discharge Disposition: Home or Self Care 06/09/2022 10:30 AM CDT Anticoagulation Visit Department of Anticoagulation in [place], [place] [address] [place] [address] Soheila Zapata P.A.-C., M.S. 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 Deficiency Estrogen Post Menopausal 05/12/2022 9:20 AM ASSOCIATE PROFESSOR COMPUTER SCIENCE - 05/12/2022 11:59 PM ASSOCIATE PROFESSOR COMPUTER SCIENCE Hospital Encounter Department of Laboratory Medicine in [address] [phone] Soheila Zapata P.A.-C., M.S. Atrial Fibrillation Unspecified; Monitoring For Therapeutic Drug Therapy; Longterm (Current) Anticoagulant Treatment Discharge Disposition: Home or Self Care 05/12/2022 10:00 AM ASSOCIATE PROFESSOR COMPUTER SCIENCE Anticoagulation Visit Department of Anticoagulation in [address] [phone] Soheila Zapata P.A.-C., M.S. 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 Atrial Fibrillation Unspecified Discharge Disposition: Home or Self Care 04/21/2022 9:50 AM ASSOCIATE PROFESSOR COMPUTER SCIENCE - 04/21/2022 10:24 AM ASSOCIATE PROFESSOR COMPUTER SCIENCE Hospital Encounter Department of Laboratory Medicine in [place], [place] [address] [place] [address] Soheila Zapata P.A.CandidoC., M.S. Atrial Fibrillation Unspecified; Monitoring For Therapeutic Drug Therapy; Longterm (Current) Anticoagulant Treatment Discharge Disposition: Home or Self Care 04/21/2022 10:30 AM ASSOCIATE PROFESSOR COMPUTER SCIENCE Anticoagulation Visit Department of Anticoagulation in [place], [place] [address] [place] [address] Soheila Zapata P.Genie.-C., M.S. 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 04/15/2022 Refill Department of Internal Medicine in [place], [place] [address] [place] [phone] Soheila Zapata P.A.-C., M.S. Med Refill 04/15/2022 Refill Department of Internal Medicine in [place], [place] [address] [place] [phone] Addie De La Garza M.D. Med Refill 04/10/2022 Refill Department of Internal Medicine in [place], [place] [address] [place] [phone] Soheila Zapata P.A.-C., M.S. Med Refill 04/07/2022 10:10 AM ASSOCIATE PROFESSOR COMPUTER SCIENCE - 04/07/2022 10:17 AM ASSOCIATE PROFESSOR COMPUTER SCIENCE Hospital Encounter Department of Laboratory Medicine in [address] [address] Soheila Zapata P.A.-C., M.S. Atrial Fibrillation Unspecified; Monitoring For Therapeutic Drug Therapy; Longterm (Current) Anticoagulant Treatment Discharge Disposition: Home or Self Care 04/07/2022 10:50 AM ASSOCIATE PROFESSOR COMPUTER SCIENCE Anticoagulation Visit Department of Anticoagulation in [place], [place] [address] [place] [phone] Soheila Zapata P.A.-C., M.S. Atrial Fibrillation Unspecified (Primary Dx); Monitoring For Therapeutic Drug Therapy; Longterm (Current) Anticoagulant Treatment 04/07/2022 10:18 AM ASSOCIATE PROFESSOR COMPUTER SCIENCE - 04/07/2022 11:59 PM ASSOCIATE PROFESSOR COMPUTER SCIENCE Hospital Encounter Department of Cardiovascular Diseases in [address] [phone] Roberto Dumont APRN, C.N.P. Atrial Fibrillation Other Persistent (HCC) Discharge Disposition: Home or Self Care 03/31/2022 Clinical Communication Department of Internal Medicine in [address] [address] Soheila Zapata P.A.-C., M.S. 03/31/2022 Nurse Triage Department of Internal Medicine in [address] [phone] Tammy Ramos M.S.N., R.N. Eye Problem 03/31/2022 12:30 PM ASSOCIATE PROFESSOR COMPUTER SCIENCE Anticoagulation Visit Department of Anticoagulation in [place], [place] [address] [place] [phone] Soheila Zapata P.A.-C., M.S. 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 Anticoagulation 03/24/2022 1:30 PM ASSOCIATE PROFESSOR COMPUTER SCIENCE Anticoagulation Visit Department of Anticoagulation in [address] [phone] Soheila Zapata P.A.-C., M.S. Atrial Fibrillation Unspecified (Primary Dx); Monitoring For Therapeutic Drug Therapy; Longterm (Current) Anticoagulant Treatment 03/24/2022 12:44 PM ASSOCIATE PROFESSOR COMPUTER SCIENCE - 03/24/2022 11:59 PM ASSOCIATE PROFESSOR COMPUTER SCIENCE Hospital Encounter Department of Laboratory Medicine in [address] [address] Soheila Zapata P.A.-C., M.S. 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 Atrial Fibrillation Unspecified (Primary Dx); Monitoring For Therapeutic Drug Therapy; Longterm (Current) Anticoagulant Treatment 03/16/2022 9:50 AM ASSOCIATE PROFESSOR COMPUTER SCIENCE - 03/16/2022 11:59 PM ASSOCIATE PROFESSOR COMPUTER SCIENCE Hospital Encounter Department of Laboratory Medicine in [address] [phone] Soheila Zapata P.A.-C., M.S. Atrial Fibrillation Unspecified; Monitoring For Therapeutic Drug Therapy; Longterm (Current) Anticoagulant Treatment Discharge Disposition: Home or Self Care 03/06/2022 10:50 AM ASSOCIATE PROFESSOR COMPUTER SCIENCE - 03/06/2022 11:59 PM ASSOCIATE PROFESSOR COMPUTER SCIENCE Hospital Encounter Department of Laboratory Medicine in [address] [address] Soheila Zapata P.A.-C., M.S. 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 Atrial Fibrillation Unspecified (Primary Dx); Monitoring For Therapeutic Drug Therapy; Longterm (Current) Anticoagulant Treatment 02/20/2022 10:50 AM ASSOCIATE PROFESSOR COMPUTER SCIENCE - 02/20/2022 11:59 PM ASSOCIATE PROFESSOR COMPUTER SCIENCE Hospital Encounter Department of Laboratory Medicine in [address] [address] Soheila Zapata P.A.-C., M.S. 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 Atrial Fibrillation Unspecified (Primary Dx); Monitoring For Therapeutic Drug Therapy; Longterm (Current) Anticoagulant Treatment 02/13/2022 11:20 AM ASSOCIATE PROFESSOR COMPUTER SCIENCE - 02/13/2022 11:59 PM ASSOCIATE PROFESSOR COMPUTER SCIENCE Hospital Encounter Department of Laboratory Medicine in [address] [address] Soheila Zapata P.A.-C., M.S. 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 Anticoagulation (Unable to reach ) 02/06/2022 2:40 PM ASSOCIATE PROFESSOR COMPUTER SCIENCE - 02/06/2022 11:59 PM ASSOCIATE PROFESSOR COMPUTER SCIENCE Hospital Encounter Department of Laboratory Medicine in [address] [phone] Soheila Zapata P.A.-C., M.S. 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 Genesis Hooper, M.S. Atrial Fibrillation Unspecified; Monitoring For Therapeutic Drug Therapy; Longterm (Current) Anticoagulant Treatment 02/02/2022 12:50 PM ASSOCIATE PROFESSOR COMPUTER SCIENCE Anticoagulation Visit Department of Anticoagulation in [place], [place] [address] [place] [phone] Soheila Zapata P.A.-C., M.S. Atrial Fibrillation Unspecified (Primary Dx); Monitoring For Therapeutic Drug Therapy; Longterm (Current) Anticoagulant Treatment 02/02/2022 12:06 PM ASSOCIATE PROFESSOR COMPUTER SCIENCE - 02/02/2022 11:59 PM ASSOCIATE PROFESSOR COMPUTER SCIENCE Hospital Encounter Department of Laboratory Medicine in [place] [address] [address] Soheila Zapata P.A.-C., M.S. Atrial Fibrillation Unspecified; Monitoring For Therapeutic Drug Therapy; Longterm (Current) Anticoagulant Treatment Discharge Disposition: Home or Self Care 01/23/2022 3:40 PM ASSOCIATE PROFESSOR COMPUTER SCIENCE - 01/23/2022 11:59 PM ASSOCIATE PROFESSOR COMPUTER SCIENCE Hospital Encounter Department of Laboratory Medicine in [place], [place] [address] [address] Soheila Zapata P.A.-C., M.S. 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 Anticoagulation (Unable to reach) 01/15/2022 11:20 AM ASSOCIATE PROFESSOR COMPUTER SCIENCE - 01/15/2022 11:59 PM ASSOCIATE PROFESSOR COMPUTER SCIENCE Hospital Encounter Department of Laboratory Medicine in [address] [phone] Soheila Zapata P.A.-C., M.S. Atrial Fibrillation Unspecified; Monitoring For Therapeutic Drug Therapy; Longterm (Current) Anticoagulant Treatment Discharge Disposition: Home or Self Care 01/14/2022 11:30 AM ASSOCIATE PROFESSOR COMPUTER SCIENCE Office Visit Department of Physical Medicine and Rehabilitation in [place], [place] [address] [place] [phone] Eder Torres M.D. 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 Atrial Fibrillation Unspecified (Primary Dx); Monitoring For Therapeutic Drug Therapy; Longterm (Current) Anticoagulant Treatment 01/12/2022 1:40 PM ASSOCIATE PROFESSOR COMPUTER SCIENCE - 01/12/2022 11:59 PM ASSOCIATE PROFESSOR COMPUTER SCIENCE Hospital Encounter Department of Laboratory Medicine in [place], [place] [address] [place] [phone] Soheila Zapata P.A.-C., M.S. Atrial Fibrillation Unspecified; Monitoring For Therapeutic Drug Therapy; Longterm (Current) Anticoagulant Treatment Discharge Disposition: Home or Self Care 01/07/2022 Clinical Communication Department of Anticoagulation in [address] [phone] Soham Chino, R.N. Anticoagulation (Welcome call) 01/06/2022 Orders Only Department of Anticoagulation in [place], [place] [address] [place] [phone] Soham Chino, R.N. 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 Cardiomyopathy Dilated (HCC); Irregular Pulse Discharge Disposition: Home or Self Care 12/30/2021 3:00 PM CDT Nurse Only Department of Family Medicine, [facility], in [address] [phone] Soheila Zapata P.A.-C., Nga Chaves, LHowiePHowieNHowie Nurse Visit (BP check with home device validation) 12/30/2021 1:30 PM CDT Office Visit Department of Cardiovascular Diseases in [address] [phone] Roberto Dumont APRN, C.N.P. Cardiomyopathy Dilated (HCC) (Primary Dx); Irregular Pulse; Hypertensive Heart With Heart Failure And Chronic Kidney Disease (CKD) Stage 3a Glomerular Filtration Rate (GFR) 45 To 59 (HCC); Atrial Fibrillation Other Persistent (HCC) 12/25/2021 2:25 PM CDT - 12/25/2021 4:01 PM CDT Hospital Encounter Department of Radiology in [address] [phone] Eder Torres M.D. Lumbago With Sciatica Left Side; Spondylolysis Lumbar Region Discharge Disposition: Home or Self Care 12/17/2021 2:00 PM CDT Comprehensive Visit Department of Physical Medicine and Rehabilitation in [address] [phone] Eder Torres M.D. Spondylolysis Lumbar Region (Primary Dx); Lumbago With Sciatica Left Side; Spinal Stenosis Lumbar Region Without Neurogenic Claudication 12/14/2021 Refill Department of Internal Medicine in [address] [phone] Addie De La Garza M.D. Med Refill 12/10/2021 Orders Only Department of Internal Medicine in [address] [phone] Soheila Zapata P.A.-C., M.S. Screening Colon Cancer Average Risk 12/09/2021 2:00 PM CDT Office Visit Department of Internal Medicine in [address] [phone] Soheila Zapata P.A.-C., M.S. Radiculopathy Sacral (Primary Dx); Radiculopathy Lumbar Fifth Left; Cardiomyopathy Dilated (HCC); Hypertensive Heart With Heart Failure And Chronic Kidney Disease (CKD) Stage 3a Glomerular Filtration Rate (GFR) 45 To 59 (HCC); Screening Colon Cancer Average Risk; Pain Foot Left 12/09/2021 2:45 PM CDT - 12/09/2021 11:59 PM CDT Hospital Encounter Department of Radiology in [address] [phone] Soheila Zapata P.A.-C., M.S. Maintenance Health Adult Discharge Disposition: Home or Self Care 11/18/2021 Clinical Communication Department of Internal Medicine in [address] [address] Soheila Zapata P.A.-C., M.S. Pain 11/06/2021 2:35 PM CDT - 11/06/2021 11:59 PM CDT Hospital Encounter Department of Laboratory Medicine in [address] [address] Soheila Zapata P.A.-C., M.S. Hypertensive Chronic Kidney Disease (CKD) Stage 3a Glomerular Filtration Rate (GFR) 45 To 59 (HCC); Hyperlipidemia On Treatment; Maintenance Health Adult; Screening Examination Diabetes Mellitus Discharge Disposition: Home or Self Care 11/06/2021 1:30 PM CDT Office Visit Department of Internal Medicine in [address] [address] Soheila Zapata P.A.-C., M.S. Radiculopathy Lumbar Fifth Left (Primary Dx); Radiculopathy Sacral; Cardiomyopathy Dilated (HCC); Hypertensive Chronic Kidney Disease (CKD) Stage 3a Glomerular Filtration Rate (GFR) 45 To 59 (HCC); Hyperlipidemia On Treatment; Screening Examination Diabetes Mellitus; Maintenance Health Adult 11/04/2021 9:30 AM CDT Office Visit Department of Internal Medicine in [address] [address] Stevan Bhakta D.O. Procedure And Treatment Not Carried Out Due To Patient Leaving Prior To Being Seen By Health Care Provider (Primary Dx) 10/16/2021 Clinical Communication Department of Internal Medicine in [address] [phone] Ermelinda Valle M.D. 10/16/2021 Clinical Communication Department of Internal Medicine in [address] [address] Addie De La Garza M.D. [place] referal 09/26/2021 Clinical Communication Department of Internal Medicine in [address] [address] Stevan Bhakta D.O. Form Review ([facility] PT - 09/25/21) 09/17/2021 Clinical Communication Department of Internal Medicine in [address] [address] Ermelinda Valle M.D. 08/21/2021 Clinical Communication Department of Internal Medicine in [address] [address] Stevan Bhakta D.O. Form Review ([place]) 08/19/2021 9:45 AM CDT Office Visit Department of Internal Medicine in [address] [address] Ermelinda Valle M.D. Lumbago With Sciatica Left Side (Primary Dx) 08/15/2021 Clinical Communication Department of Internal Medicine in [place], [place] [address], [place] [address] Stevan Bhakta, D.O. 08/12/2021 Orders Only [facility] PCP [facility] Ermelinda Kay M.D. Deficiency Estrogen Post Menopausal 07/23/2021 Orders Only [facility] PCP [facility] Stevan Bhakta, D.O. 06/26/2021 2:30 PM CDT Office Visit Department of Internal Medicine in [place], [place] [address] [place] [address] Addie De La Garza M.D. Migraine Headache (Primary Dx); Chronic Kidney Disease (CKD), Stage 3 Unspecified (HCC); Hyperlipidemia On Treatment; Rash; Hypertensive Chronic Kidney Disease (CKD) Stage 3a Glomerular Filtration Rate (GFR) 45 To 59 05/07/2021 Orders Only [facility]CP [facility] Stevan Bhakta, D.O. Monitoring For Therapeutic Drug Therapy 01/14/2021 Orders Only [facility] PCP [facility] Stevan Bhakta, D.O. Screening Cancer Colon 01/14/2021 Orders Only [facility] PCP [facility] Padmini nieto, Elliotwa, D.O. Screening Cancer Colon 12/31/2020 Orders Only [facility] Ermelinda Kay M.D. 11/12/2020 [facility] Padmini nieto, Stevan, D.O. Screening Mammogram Breast Cancer; Deficiency Estrogen Post Menopausal 11/04/2020 Clinical Communication Division of [facility] Internal Medicine, [facility] in [place], [place] [address] [place] [address] Nancy Lovett R.N. COVID Nurse Line 11/04/2020 Clinical Communication Department of Internal Medicine in [address] [address] Stevan Bhakta D.O. COVID Inquiry 08/19/2020 Refill Department of Internal Medicine in [address] [address] Stevan Bhakta D.O. Med Refill 06/19/2020 Clinical Communication Department of Internal Medicine in [address] [address] Stevan Bhakta D.O. 06/06/2020 Clinical Communication Department of Internal Medicine in [address] [address] Butch Velazquez M.D. 05/27/2020 3:17 PM CDT - 05/27/2020 11:59 PM CDT Hospital Encounter Department of Cardiovascular Diseases in [address] [address] Butch Velazquez M.D. Cardiomyopathy Dilated (HCC) Discharge Disposition: Home or Self Care 05/17/2020 10:45 AM ASSOCIATE PROFESSOR COMPUTER SCIENCE - 05/17/2020 10:53 AM ASSOCIATE PROFESSOR COMPUTER SCIENCE Hospital Encounter Department of Laboratory Medicine in [address] [address] Butch Velazquez M.D. Cardiomyopathy Dilated (HCC) Discharge Disposition: Home or Self Care 05/17/2020 10:54 AM ASSOCIATE PROFESSOR COMPUTER SCIENCE - 05/17/2020 11:59 PM ASSOCIATE PROFESSOR COMPUTER SCIENCE Hospital Encounter Department of Radiology in [address] [address] Butch Velazquez M.D. 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 Personal History Of Infectious And Parasitic Disease (COVID-19) (Primary Dx); Radiculopathy Lumbar; Pain Low Back; Cardiomyopathy Dilated (HCC); Chronic Kidney Disease (CKD), Stage 3 Unspecified (HCC) 05/13/2020 Clinical Communication Department of Internal Medicine in [address] [address] Stevan Bhakta D.O. COVID Inquiry 03/14/2020 Orders Only Department of Internal Medicine in [address] [address] Butch Velazquez M.D. 02/12/2020 Orders Only [facility] Ste[facility]ak[facility] D.[facility]. Deficiency Estrogen Post Menopausal; Screening Examination Diabetes Mellitus; Monitoring For Therapeutic Drug Therapy 11/27/2019 Clinical Communication Department of Internal Medicine in [address] [address] Stevan Bhakta D.O. Results 11/25/2019 External Outreach Department of Internal Medicine in [place], [place] [address] [place] [phone] Patrick Erickson D.O. Infection Upper Respiratory (Primary Dx) Discharge Disposition: Home or Self Care 11/25/2019 Clinical Communication Division of [facility] Internal Medicine, [facility] in [place], [place] [address] [place] [address] Medina Rocha R.N. COVID Nurse Line 09/29/2019 Clinical Communication Department of Internal Medicine in [place], [place] [address] [place] [address] Stevan Bhakta D.O. Results 09/28/2019 External Outreach Department of Internal Medicine in [address] [address] Patrick Erickson D.O. Infection Upper Respiratory (Primary Dx) Discharge Disposition: Home or Self Care 08/23/2019 Orders Only [facility] Screening Mammogram Breast Cancer 12/14/2018 Orders Only [facility] PCP [facility] Stevan Bhakta D.O. Screening Examination Diabetes Mellitus; Monitoring For Therapeutic Drug Therapy 11/09/2018 Refill Department of Cardiovascular Diseases in [address] [address] Roberto Dumont APRN, C.N.P. Med Refill 10/26/2018 2:30 PM CDT Office Visit Department of Internal Medicine in [address] [address] Butch Velazquez M.D. Neuralgia Post Herpetic (Primary Dx) 09/23/2018 8:30 AM CDT Office Visit Urgent Care in [address] [address] Omi Talbot P.A.-Darryl, P.A. Herpes Zoster (Primary Dx); Insect Bite Nonvenomous Abdominal Wall Initial 05/12/2018 Orders Only [facility] Stevan Bhakta D.O. Screening Mammogram Breast Cancer 01/25/2018 Refill Department of Cardiovascular Diseases in [address] [address] Roberto Dumont APRN, C.N.P. Med Refill 01/05/2018 Orders Only Department of Internal Medicine in [address] [address] Stevan Bhakta D.O. Deficiency Estrogen Post Menopausal; Screening Mammogram Average Risk Patient 12/30/2017 12:30 PM CDT Office Visit Department of Cardiovascular Diseases in [address] [address] Tariq Estrella M.D. Brandl, Adam C, APRN, C.NHowiePHowie Cardiomyopathy Dilated (HCC); Dyslipidemia 12/28/2017 12:00 PM CDT - 12/28/2017 11:59 PM CDT Hospital Encounter Department of Laboratory Medicine in [address] [address] Tariq Estrella M.D. Cardiomyopathy Dilated (HCC) Discharge Disposition: Home or Self Care 07/29/2017 Clinical Communication Department of Cardiovascular Diseases in [address] [address] Tariq Estrella M.D. Results 07/28/2017 8:34 AM CDT - 07/28/2017 11:59 PM CDT Hospital Encounter Department of Cardiovascular Diseases in [address] [address] Tariq Estrella M.D. Cardiomyopathy Dilated (HCC) Discharge Disposition: Home or Self Care 07/21/2017 Refill Department of Cardiovascular Diseases in [address] [address] Tariq Estrella M.D. Med Refill 07/19/2017 11:23 AM CDT - 07/19/2017 11:59 PM CDT Hospital Encounter Department of Radiology in [address] [address] Bayron Fernandez M.D. Pain Low Back Acute Discharge Disposition: Home or Self Care 07/19/2017 12:00 PM CDT Office Visit Urgent Care in [address] [address] Bayron Fernandez M.D. Pain Low Back Acute (Primary Dx) 07/02/2017 Clinical Communication Department of Cardiovascular Diseases in [address] [address] Willis Lopez M.H.A. Communication 07/02/2017 Clinical Communication Department of Internal Medicine in [address] [address] Elgin Armas M.D. Communication 07/02/2017 10:45 AM CDT Office Visit Department of Cardiovascular Diseases in [address] [address] Tariq Estrella M.D. Cardiomyopathy Dilated (HCC) (Primary Dx); Dyslipidemia 06/30/2017 7:57 AM CDT - 06/30/2017 11:59 PM CDT Hospital Encounter Department of Laboratory Medicine in [address] [address] Elgin Armas M.D. Failure Heart (HCC) Discharge Disposition: Home or Self Care 05/19/2017 Orders Only Department of Internal Medicine in [address] [address] Elgin Armas M.D. Diabetes Mellitus Type 2 (HCC) (Primary Dx); Screening Mammogram Average Risk Patient 12/18/2016 Orders Only Department of Cardiovascular Diseases in [address] [address] Tariq Estrella M.D. Failure Heart (HCC) 08/17/2016 8:27 AM CDT - 08/17/2016 11:59 PM CDT Hospital Encounter HX [facility] Parvin Chandler M.D. 07/09/2016 10:38 AM CDT - 07/09/2016 11:59 PM CDT Hospital Encounter HX [facility] Tariq Estrella M.D. 07/01/2016 10:31 [...] LAB Tariq Estrella M.D. 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 02/11/2015 9:17 AM ASSOCIATE PROFESSOR COMPUTER SCIENCE - 02/11/2015 11:59 PM ASSOCIATE PROFESSOR COMPUTER SCIENCE Hospital Encounter HX [facility] Braulio [...] muscle spasms. 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 03/2021 Radiculopathy Lumbar Fifth [...] ramos Hypertension Mother abiel ramos Hypothyroidism Mother abile richard Obesity Mother abiel ramos Dementia Paternal Grandmother trina ramos Obesity Paternal Grandmother trina ramos Asthma Son 1 janell alberto not sure Migraines Son 2 [place] Migraines Son 3 genesis Relation Name Status Comments Daughter 1 genesis alberto Daughter 2 Bre Mother abiel ramos Paternal Grandmother rtina ramos Son 1 janell alberto Son 2 [place] Son 3 genesis Social History Smoking Status as of 06/06/2024 Tobacco Use Types Packs/Day Years Used Date Smoking Tobacco: Never Assessed [facility] Utilities Answer Date Recorded In the past 12 months has [employer] gas, oil, or water company threatened to [...] week 05/30/2022 How often do you attend [facility] or [employer] services? More than 4 times [...] Answer Date Recorded PHQ-2 Score 4 05/15/2024 [facility] Occupational Stress Questionnaire Answer [...] AM CDT Legal Sex Female 9:57 PM ASSOCIATE PROFESSOR COMPUTER SCIENCE Gender Identity Female 09/24/2022 9:59 PM CDT [...] CDT Appointment Department of Laboratory Medicine in [place], [place] [address] [place] [address] Patrick Erickson D.O. [address] [address] 06/09/2024 12:00 PM CDT Anticoagulation Visit Department of Anticoagulation in [place], [place] [address] [place] [address] Patrick Erickson D.O. [address], [place] [address] Procedures Procedure Name Priority Date/Time [...] Therapeutic Drug Therapy Longterm (Current) Anticoagulant Treatment INR REFLEX, POCT, B Routine 05/25/2024 11:42 AM CDT Hypertensive Heart And Chronic Kidney Disease With Heart Failure And Stage 1 To 4 Chronic Kidney Disease Or Unspecified Chronic Kidney Disease (HCC) Hyperlipidemia On Treatment Atrial Fibrillation Paroxysmal (HCC) Monitoring For Therapeutic Drug Therapy Longterm (Current) Anticoagulant Treatment PROTHROMBIN TIME (PT), P Routine 05/23/2024 3:45 PM CDT INR REFLEX, POCT, B Routine 05/23/2024 3:42 PM CDT Hypertensive Heart And Chronic Kidney Disease With Heart Failure And Stage 1 To 4 Chronic Kidney Disease Or Unspecified Chronic Kidney Disease (HCC) Hyperlipidemia On Treatment Atrial Fibrillation Paroxysmal (HCC) Monitoring For Therapeutic Drug Therapy Longterm (Current) Anticoagulant Treatment PROTHROMBIN TIME (PT), P [...] REFLEX, POCT, B Routine 05/09/2024 12:40 PM ASSOCIATE PROFESSOR COMPUTER SCIENCE Hypertensive Heart And Chronic Kidney Disease With Heart Failure And Stage 1 To 4 Chronic Kidney Disease Or Unspecified Chronic Kidney Disease (HCC) Hyperlipidemia On Treatment Atrial Fibrillation Paroxysmal (HCC) Monitoring For Therapeutic Drug Therapy Longterm (Current) Anticoagulant Treatment INR REFLEX, POCT, B Routine 04/28/2024 2:10 PM ASSOCIATE PROFESSOR COMPUTER SCIENCE Atrial Fibrillation Paroxysmal (HCC) Monitoring For Therapeutic Drug Therapy 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 INR REFLEX, POCT, B Routine 04/24/2024 9:22 AM ASSOCIATE PROFESSOR COMPUTER SCIENCE Hypertensive Heart And Chronic Kidney Disease With Heart Failure And Stage 1 To 4 Chronic Kidney Disease Or Unspecified Chronic Kidney Disease (HCC) Hyperlipidemia On Treatment Atrial Fibrillation Paroxysmal (HCC) Monitoring For Therapeutic Drug Therapy 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 INR REFLEX, POCT, B Routine 04/10/2024 11:57 AM ASSOCIATE PROFESSOR COMPUTER SCIENCE Hypertensive Heart And Chronic Kidney Disease With Heart Failure And Stage 1 To 4 Chronic Kidney Disease Or Unspecified Chronic Kidney Disease (HCC) Hyperlipidemia On Treatment Atrial Fibrillation Paroxysmal (HCC) Monitoring For Therapeutic Drug Therapy Longterm (Current) Anticoagulant Treatment INR REFLEX, POCT, B Routine 03/30/2024 11:38 AM ASSOCIATE PROFESSOR COMPUTER SCIENCE Hypertensive Heart And Chronic Kidney Disease With Heart Failure And Stage 1 To 4 Chronic Kidney Disease Or Unspecified Chronic Kidney Disease (HCC) Hyperlipidemia On Treatment Atrial Fibrillation Paroxysmal (HCC) Monitoring For Therapeutic Drug Therapy Longterm (Current) Anticoagulant Treatment INR REFLEX, POCT, B Routine 03/20/2024 4:07 PM ASSOCIATE PROFESSOR COMPUTER SCIENCE Hypertensive Heart And Chronic Kidney Disease With Heart Failure And Stage 1 To 4 Chronic Kidney Disease Or Unspecified Chronic Kidney Disease (HCC) Hyperlipidemia On Treatment Atrial Fibrillation Paroxysmal (HCC) Monitoring For Therapeutic Drug Therapy 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 INR REFLEX, POCT, B Routine 03/10/2024 4:03 PM ASSOCIATE PROFESSOR COMPUTER SCIENCE Hypertensive Heart And Chronic Kidney Disease With Heart Failure And Stage 1 To 4 Chronic Kidney Disease Or Unspecified Chronic Kidney Disease (HCC) Hyperlipidemia On Treatment Atrial Fibrillation Paroxysmal (HCC) Monitoring For Therapeutic Drug Therapy 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 INR REFLEX, POCT, B Routine 03/02/2024 4:17 PM ASSOCIATE PROFESSOR COMPUTER SCIENCE Atrial Fibrillation Paroxysmal (HCC) Monitoring For Therapeutic Drug Therapy 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 INR REFLEX, POCT, B Routine 02/24/2024 9:08 AM ASSOCIATE PROFESSOR COMPUTER SCIENCE Atrial Fibrillation Paroxysmal (HCC) Monitoring For Therapeutic Drug Therapy Longterm (Current) Anticoagulant Treatment INR REFLEX, POCT, B Routine 02/18/2024 10:47 AM ASSOCIATE PROFESSOR COMPUTER SCIENCE Hypertensive Heart And Chronic Kidney Disease With Heart Failure And Stage 1 To 4 Chronic Kidney Disease Or Unspecified Chronic Kidney Disease (HCC) Hyperlipidemia On Treatment Atrial Fibrillation Paroxysmal (HCC) Monitoring For Therapeutic Drug Therapy 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 INR REFLEX, POCT, B Routine 02/10/2024 7:54 AM ASSOCIATE PROFESSOR COMPUTER SCIENCE Hypertensive Heart And Chronic Kidney Disease With Heart Failure And Stage 1 To 4 Chronic Kidney Disease Or Unspecified Chronic Kidney Disease (HCC) Hyperlipidemia On Treatment Atrial Fibrillation Paroxysmal (HCC) Monitoring For Therapeutic Drug Therapy 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 INR REFLEX, POCT, B Routine 01/31/2024 10:41 AM ASSOCIATE PROFESSOR COMPUTER SCIENCE Hypertensive Heart And Chronic Kidney Disease With Heart Failure And Stage 1 To 4 Chronic Kidney Disease Or Unspecified Chronic Kidney Disease (HCC) Hyperlipidemia On Treatment Atrial Fibrillation Paroxysmal (HCC) Monitoring For Therapeutic Drug Therapy Longterm (Current) Anticoagulant Treatment INR REFLEX, POCT, B Routine 01/27/2024 8:08 AM ASSOCIATE PROFESSOR COMPUTER SCIENCE Hypertensive Heart And Chronic Kidney Disease With Heart Failure And Stage 1 To 4 Chronic Kidney Disease Or Unspecified Chronic Kidney Disease (HCC) Hyperlipidemia On Treatment Atrial Fibrillation Paroxysmal (HCC) Monitoring For Therapeutic Drug Therapy 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 INR REFLEX, POCT, B Routine 01/13/2024 8:00 AM ASSOCIATE PROFESSOR COMPUTER SCIENCE Hypertensive Heart And Chronic Kidney Disease With Heart Failure And Stage 1 To 4 Chronic Kidney Disease Or Unspecified Chronic Kidney Disease (HCC) Hyperlipidemia On Treatment Atrial Fibrillation Paroxysmal (HCC) Monitoring For Therapeutic Drug Therapy 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 INR REFLEX, POCT, B Routine 01/06/2024 8:11 AM CDT Hypertensive Heart And Chronic Kidney Disease With Heart Failure And Stage 1 To 4 Chronic Kidney Disease Or Unspecified Chronic Kidney Disease (HCC) Hyperlipidemia On Treatment Atrial Fibrillation Paroxysmal (HCC) Monitoring For Therapeutic Drug Therapy 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 INR REFLEX, POCT, B Routine 12/28/2023 2:43 PM CDT Hypertensive Heart And Chronic Kidney Disease With Heart Failure And Stage 1 To 4 Chronic Kidney Disease Or Unspecified Chronic Kidney Disease (HCC) Hyperlipidemia On Treatment Atrial Fibrillation Paroxysmal (HCC) Monitoring For Therapeutic Drug Therapy 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 INR REFLEX, POCT, B Routine 12/24/2023 3:45 PM CDT Hypertensive Heart And Chronic Kidney Disease With Heart Failure And Stage 1 To 4 Chronic Kidney Disease Or Unspecified Chronic Kidney Disease (HCC) Hyperlipidemia On Treatment Atrial Fibrillation Paroxysmal (HCC) Monitoring For Therapeutic Drug Therapy 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 BASIC METABOLIC PANEL, S/P [...] Therapeutic Drug Therapy Longterm (Current) Anticoagulant Treatment COMPREHENSIVE METABOLIC PANEL, S/P [...] Paroxysmal (HCC) Monitoring For Therapeutic Drug Therapy 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 EXTM HOME SARS CORONAVIRUS-2 (COVID-19) ANTIGEN, V Routine 11/26/2023 6:00 PM CDT INR REFLEX, POCT, B Routine 11/22/2023 3:52 PM CDT Hypertensive Heart And Chronic Kidney Disease With Heart Failure And Stage 1 To 4 Chronic Kidney Disease Or Unspecified Chronic Kidney Disease (HCC) Hyperlipidemia On Treatment Atrial Fibrillation Paroxysmal (HCC) Monitoring For Therapeutic Drug Therapy 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 INR REFLEX, POCT, B Routine 11/12/2023 12:09 PM CDT Atrial Fibrillation Paroxysmal (HCC) Monitoring For Therapeutic Drug Therapy 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 INR REFLEX, POCT, B Routine 11/02/2023 2:58 PM CDT Hypertensive Heart And Chronic Kidney Disease With Heart Failure And Stage 1 To 4 Chronic Kidney Disease Or Unspecified Chronic Kidney Disease (HCC) Hyperlipidemia On Treatment Atrial Fibrillation Paroxysmal (HCC) Monitoring For Therapeutic Drug Therapy Longterm (Current) Anticoagulant Treatment INR REFLEX, POCT, B Routine 10/28/2023 3:00 PM CDT Hypertensive Heart And Chronic Kidney Disease With Heart Failure And Stage 1 To 4 Chronic Kidney Disease Or Unspecified Chronic Kidney Disease (HCC) Hyperlipidemia On Treatment Atrial Fibrillation Paroxysmal (HCC) Monitoring For Therapeutic Drug Therapy 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 INR REFLEX, POCT, B Routine 10/15/2023 3:09 PM CDT Hypertensive Heart And Chronic Kidney Disease With Heart Failure And Stage 1 To 4 Chronic Kidney Disease Or Unspecified Chronic Kidney Disease (HCC) Hyperlipidemia On Treatment Atrial Fibrillation Paroxysmal (HCC) Monitoring For Therapeutic Drug Therapy Longterm (Current) Anticoagulant Treatment INR REFLEX, POCT, B Routine 10/07/2023 2:55 PM CDT Atrial Fibrillation Paroxysmal (HCC) INR REFLEX, POCT, B Routine 10/01/2023 3:00 PM CDT Hypertensive Heart With Heart Failure And Chronic Kidney Disease (CKD) Stage 3a Glomerular Filtration Rate (GFR) 45 To 59 (HCC) Hyperlipidemia On Treatment Atrial Fibrillation Paroxysmal (HCC) Monitoring For Therapeutic Drug Therapy Longterm (Current) Anticoagulant Treatment INR REFLEX, POCT, B Routine 09/24/2023 3:14 PM CDT Hypertensive Heart With Heart Failure And Chronic Kidney Disease (CKD) Stage 3a Glomerular Filtration Rate (GFR) 45 To 59 (HCC) Hyperlipidemia On Treatment Atrial Fibrillation Paroxysmal (HCC) Monitoring For Therapeutic Drug Therapy Longterm (Current) Anticoagulant Treatment PROTHROMBIN TIME (PT), P Routine 09/21/2023 12:41 PM CDT INR REFLEX, POCT, B Routine 09/21/2023 12:39 PM CDT Hypertensive Heart With Heart Failure And Chronic Kidney Disease (CKD) Stage 3a Glomerular Filtration Rate (GFR) 45 To 59 (HCC) Hyperlipidemia On Treatment Atrial Fibrillation Paroxysmal (HCC) Monitoring For Therapeutic Drug Therapy Longterm (Current) Anticoagulant Treatment INR REFLEX, POCT, B Routine 09/14/2023 1:00 PM CDT Hypertensive Heart With Heart Failure And Chronic Kidney Disease (CKD) Stage 3a Glomerular Filtration Rate (GFR) 45 To 59 (HCC) Hyperlipidemia On Treatment Atrial Fibrillation Paroxysmal (HCC) Monitoring For Therapeutic Drug Therapy Longterm (Current) Anticoagulant Treatment INR REFLEX, POCT, B Routine 09/08/2023 3:39 PM CDT Hypertensive Heart With Heart Failure And Chronic Kidney Disease (CKD) Stage 3a Glomerular Filtration Rate (GFR) 45 To 59 (HCC) Hyperlipidemia On Treatment Atrial Fibrillation Paroxysmal (HCC) Monitoring For Therapeutic Drug Therapy 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 INR REFLEX, POCT, B Routine 09/02/2023 3:09 PM CDT Hypertensive Heart With Heart Failure And Chronic Kidney Disease (CKD) Stage 3a Glomerular Filtration Rate (GFR) 45 To 59 (HCC) Hyperlipidemia On Treatment Atrial Fibrillation Paroxysmal (HCC) Monitoring For Therapeutic Drug Therapy Longterm (Current) Anticoagulant Treatment INR REFLEX, POCT, B Routine 08/27/2023 2:01 PM CDT Hypertensive Heart With Heart Failure And Chronic Kidney Disease (CKD) Stage 3a Glomerular Filtration Rate (GFR) 45 To 59 (HCC) Hyperlipidemia On Treatment Atrial Fibrillation Paroxysmal (HCC) Monitoring For Therapeutic Drug Therapy Longterm (Current) Anticoagulant Treatment INR REFLEX, POCT, B Routine 08/24/2023 9:50 AM CDT Hypertensive Heart With Heart Failure And Chronic Kidney Disease (CKD) Stage 3a Glomerular Filtration Rate (GFR) 45 To 59 (HCC) Hyperlipidemia On Treatment Atrial Fibrillation Paroxysmal (HCC) Monitoring For Therapeutic Drug Therapy 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 INR REFLEX, POCT, B Routine 08/16/2023 1:35 PM CDT Hypertensive Heart With Heart Failure And Chronic Kidney Disease (CKD) Stage 3a Glomerular Filtration Rate (GFR) 45 To 59 (HCC) Hyperlipidemia On Treatment Atrial Fibrillation Paroxysmal (HCC) Monitoring For Therapeutic Drug Therapy Longterm (Current) Anticoagulant Treatment INR REFLEX, POCT, B Routine 08/05/2023 2:44 PM CDT Hypertensive Heart With Heart Failure And Chronic Kidney Disease (CKD) Stage 3a Glomerular Filtration Rate (GFR) 45 To 59 (HCC) Hyperlipidemia On Treatment Atrial Fibrillation Paroxysmal (HCC) Monitoring For Therapeutic Drug Therapy 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 INR REFLEX, POCT, B Routine 07/06/2023 8:46 AM CDT Atrial Fibrillation Paroxysmal (HCC) Hypertensive Heart With Heart Failure And Chronic Kidney Disease (CKD) Stage 3a Glomerular Filtration Rate (GFR) 45 To 59 (HCC) Hyperlipidemia On Treatment Monitoring For Therapeutic Drug Therapy 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 LIPID PANEL, S Routine [...] Paroxysmal (HCC) Monitoring For Therapeutic Drug Therapy 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 INR REFLEX, POCT, B Routine 06/03/2023 1:26 PM CDT Hypertensive Heart With Heart Failure And Chronic Kidney Disease (CKD) Stage 3a Glomerular Filtration Rate (GFR) 45 To 59 (HCC) Hyperlipidemia On Treatment Atrial Fibrillation Paroxysmal (HCC) Monitoring For Therapeutic Drug Therapy Longterm (Current) Anticoagulant Treatment INR REFLEX, POCT, B Routine 05/27/2023 10:49 AM CDT Hypertensive Heart With Heart Failure And Chronic Kidney Disease (CKD) Stage 3a Glomerular Filtration Rate (GFR) 45 To 59 (HCC) Hyperlipidemia On Treatment Atrial Fibrillation Paroxysmal (HCC) Monitoring For Therapeutic Drug Therapy Longterm (Current) Anticoagulant Treatment INR REFLEX, POCT, B Routine 05/21/2023 2:55 PM CDT Atrial Fibrillation Paroxysmal (HCC) INR REFLEX, POCT, B Routine 05/07/2023 1:04 PM ASSOCIATE PROFESSOR COMPUTER SCIENCE Hypertensive Heart With Heart Failure And Chronic Kidney Disease (CKD) Stage 3a Glomerular Filtration Rate (GFR) 45 To 59 (HCC) Hyperlipidemia On Treatment Atrial Fibrillation Paroxysmal (HCC) Monitoring For Therapeutic Drug Therapy 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 INR REFLEX, POCT, B Routine 04/30/2023 12:42 PM ASSOCIATE PROFESSOR COMPUTER SCIENCE Hypertensive Heart With Heart Failure And Chronic Kidney Disease (CKD) Stage 3a Glomerular Filtration Rate (GFR) 45 To 59 (HCC) Hyperlipidemia On Treatment Atrial Fibrillation Paroxysmal (HCC) Monitoring For Therapeutic Drug Therapy Longterm (Current) Anticoagulant Treatment INR REFLEX, POCT, B Routine 04/02/2023 2:53 PM ASSOCIATE PROFESSOR COMPUTER SCIENCE Hypertensive Heart With Heart Failure And Chronic Kidney Disease (CKD) Stage 3a Glomerular Filtration Rate (GFR) 45 To 59 (HCC) Hyperlipidemia On Treatment Atrial Fibrillation Paroxysmal (HCC) Monitoring For Therapeutic Drug Therapy 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 INR REFLEX, POCT, B Routine 03/19/2023 3:19 PM ASSOCIATE PROFESSOR COMPUTER SCIENCE Hypertensive Heart With Heart Failure And Chronic Kidney Disease (CKD) Stage 3a Glomerular Filtration Rate (GFR) 45 To 59 (HCC) Monitoring For Therapeutic Drug Therapy Atrial Fibrillation Paroxysmal (HCC) INR REFLEX, POCT, B Routine 03/12/2023 3:11 PM ASSOCIATE PROFESSOR COMPUTER SCIENCE Atrial Fibrillation Paroxysmal (HCC) Monitoring For Therapeutic Drug Therapy 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 INR REFLEX, POCT, B Routine 03/09/2023 2:21 PM ASSOCIATE PROFESSOR COMPUTER SCIENCE Atrial Fibrillation Paroxysmal (HCC) Monitoring For Therapeutic Drug Therapy 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 INR REFLEX, POCT, B Routine 03/05/2023 4:19 PM ASSOCIATE PROFESSOR COMPUTER SCIENCE Atrial Fibrillation Paroxysmal (HCC) Monitoring For Therapeutic Drug Therapy 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 INR REFLEX, POCT, B Routine 02/24/2023 5:02 PM ASSOCIATE PROFESSOR COMPUTER SCIENCE Atrial Fibrillation Paroxysmal (HCC) Monitoring For Therapeutic Drug Therapy 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 EXTM HOME SARS CORONAVIRUS-2 (COVID-19) ANTIGEN, V Routine 02/24/2023 12:58 PM ASSOCIATE PROFESSOR COMPUTER SCIENCE INR REFLEX, POCT, B Routine 02/16/2023 10:12 AM ASSOCIATE PROFESSOR COMPUTER SCIENCE Atrial Fibrillation Paroxysmal (HCC) Monitoring For Therapeutic Drug Therapy 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 INR REFLEX, POCT, B Routine 02/02/2023 12:08 PM ASSOCIATE PROFESSOR COMPUTER SCIENCE Atrial Fibrillation Paroxysmal (HCC) Monitoring For Therapeutic Drug Therapy Longterm (Current) Anticoagulant Treatment INR REFLEX, POCT, B Routine 01/26/2023 9:30 AM ASSOCIATE PROFESSOR COMPUTER SCIENCE Atrial Fibrillation Paroxysmal (HCC) Monitoring For Therapeutic Drug Therapy 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 INR REFLEX, POCT, B Routine 12/15/2022 11:37 AM CDT Atrial Fibrillation Paroxysmal (HCC) Monitoring For Therapeutic Drug Therapy Longterm (Current) Anticoagulant Treatment INR REFLEX, POCT, B Routine 11/17/2022 2:18 PM CDT Atrial Fibrillation Paroxysmal (HCC) Monitoring For Therapeutic Drug Therapy Longterm (Current) Anticoagulant Treatment INR REFLEX, POCT, B Routine 11/10/2022 12:18 PM CDT Atrial Fibrillation Paroxysmal (HCC) Monitoring For Therapeutic Drug Therapy 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 INR REFLEX, POCT, B Routine 11/04/2022 2:23 PM CDT Atrial Fibrillation Paroxysmal (HCC) Monitoring For Therapeutic Drug Therapy 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 INR REFLEX, POCT, B Routine 10/27/2022 11:50 AM CDT Atrial Fibrillation Paroxysmal (HCC) Monitoring For Therapeutic Drug Therapy 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 BASIC METABOLIC PANEL, S/P Routine 10/12/2022 10:09 AM CDT Hypertensive Heart With Heart Failure And Chronic Kidney Disease (CKD) Stage 3a Glomerular Filtration Rate (GFR) 45 To 59 (HCC) INR REFLEX, POCT, B Routine 10/12/2022 10:02 AM CDT Atrial Fibrillation Paroxysmal (HCC) Monitoring For Therapeutic Drug Therapy 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 CT URINALYSIS AUTO W MICRO Routine 10/12/2022 10:02 [...] Paroxysmal (HCC) Monitoring For Therapeutic Drug Therapy 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 INR REFLEX, POCT, B Routine 09/17/2022 11:22 AM CDT Atrial Fibrillation Paroxysmal (HCC) Monitoring For Therapeutic Drug Therapy BASIC METABOLIC PANEL, S/P Routine 09/17/2022 11:22 AM CDT Monitoring For Therapeutic Drug Therapy INR REFLEX, POCT, B Routine 09/03/2022 10:43 AM CDT Atrial Fibrillation Unspecified (HCC) Monitoring For Therapeutic Drug Therapy Longterm (Current) Anticoagulant Treatment INR REFLEX, POCT, B Routine 08/10/2022 11:16 AM CDT Atrial Fibrillation Unspecified (HCC) Monitoring For Therapeutic Drug Therapy Longterm (Current) Anticoagulant Treatment INR REFLEX, POCT, B Routine 08/10/2022 11:15 AM CDT INR REFLEX, POCT, B Routine 07/27/2022 3:15 PM CDT Atrial Fibrillation Unspecified (HCC) Monitoring For Therapeutic Drug Therapy 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 INR REFLEX, POCT, B Routine 07/27/2022 3:14 PM CDT INR REFLEX, POCT, B Routine 06/29/2022 10:21 AM CDT INR REFLEX, POCT, B Routine 06/29/2022 10:21 AM CDT Atrial Fibrillation Unspecified Monitoring For Therapeutic Drug Therapy Longterm (Current) Anticoagulant Treatment INR REFLEX, POCT, B Routine 06/19/2022 10:34 AM CDT Atrial Fibrillation Unspecified Monitoring For Therapeutic Drug Therapy 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 INR REFLEX, POCT, B Routine 06/19/2022 10:32 AM CDT PROTHROMBIN TIME (PT), P Routine 06/15/2022 10:13 AM CDT INR REFLEX, POCT, B Routine 06/15/2022 10:09 AM CDT INR REFLEX, POCT, B Routine 06/15/2022 10:09 AM CDT Atrial Fibrillation Unspecified Monitoring For Therapeutic Drug Therapy Longterm (Current) Anticoagulant Treatment INR REFLEX, POCT, B Routine 06/09/2022 10:16 AM CDT Atrial Fibrillation Unspecified Monitoring For Therapeutic Drug Therapy 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 PROTHROMBIN TIME (PT), P Routine 06/09/2022 10:16 AM CDT INR REFLEX, POCT, B Routine 06/09/2022 10:09 AM CDT (TTE) 2D ECHO DOPPLER COLOR Routine 06/01/2022 8:09 AM CDT Cardiomyopathy Dilated (HCC) INR REFLEX, POCT, B Routine 05/12/2022 10:01 AM ASSOCIATE PROFESSOR COMPUTER SCIENCE Atrial Fibrillation Unspecified Monitoring For Therapeutic Drug Therapy Longterm (Current) Anticoagulant Treatment INR REFLEX, POCT, B Routine 05/12/2022 10:00 AM ASSOCIATE PROFESSOR COMPUTER SCIENCE INR REFLEX, POCT, B Routine 04/28/2022 2:50 PM ASSOCIATE PROFESSOR COMPUTER SCIENCE INR REFLEX, POCT, B Routine 04/28/2022 2:50 PM ASSOCIATE PROFESSOR COMPUTER SCIENCE Atrial Fibrillation Unspecified Monitoring For Therapeutic Drug Therapy 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 INR REFLEX, POCT, B Routine 04/21/2022 10:55 AM ASSOCIATE PROFESSOR COMPUTER SCIENCE Atrial Fibrillation Unspecified Monitoring For Therapeutic Drug Therapy Longterm (Current) Anticoagulant Treatment INR REFLEX, POCT, B Routine 04/21/2022 10:54 AM ASSOCIATE PROFESSOR COMPUTER SCIENCE HOLTER MONITOR - IN CLINIC SECTION GANG WORKER Routine 04/08/2022 2:11 AM ASSOCIATE PROFESSOR COMPUTER SCIENCE Atrial Fibrillation Other Persistent (HCC) INR REFLEX, POCT, B Routine 04/07/2022 10:32 AM ASSOCIATE PROFESSOR COMPUTER SCIENCE Atrial Fibrillation Unspecified Monitoring For Therapeutic Drug Therapy Longterm (Current) Anticoagulant Treatment INR REFLEX, POCT, B Routine 04/07/2022 10:31 AM ASSOCIATE PROFESSOR COMPUTER SCIENCE INR REFLEX, POCT, B Routine 03/31/2022 12:03 PM ASSOCIATE PROFESSOR COMPUTER SCIENCE Atrial Fibrillation Unspecified Monitoring For Therapeutic Drug Therapy Longterm (Current) Anticoagulant Treatment INR REFLEX, POCT, B Routine 03/31/2022 12:02 PM ASSOCIATE PROFESSOR COMPUTER SCIENCE PROTHROMBIN TIME (PT), P Routine 03/24/2022 1:08 PM ASSOCIATE PROFESSOR COMPUTER SCIENCE INR REFLEX, POCT, B Routine 03/24/2022 1:06 PM ASSOCIATE PROFESSOR COMPUTER SCIENCE Atrial Fibrillation Unspecified Monitoring For Therapeutic Drug Therapy Longterm (Current) Anticoagulant Treatment INR REFLEX, POCT, B Routine 03/24/2022 1:05 PM ASSOCIATE PROFESSOR COMPUTER SCIENCE INR REFLEX, POCT, B Routine 03/16/2022 10:08 AM ASSOCIATE PROFESSOR COMPUTER SCIENCE INR REFLEX, POCT, B Routine 03/16/2022 10:08 AM ASSOCIATE PROFESSOR COMPUTER SCIENCE Atrial Fibrillation Unspecified Monitoring For Therapeutic Drug Therapy 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 INR REFLEX, POCT, B Routine 03/06/2022 11:06 AM ASSOCIATE PROFESSOR COMPUTER SCIENCE Atrial Fibrillation Unspecified Monitoring For Therapeutic Drug Therapy Longterm (Current) Anticoagulant Treatment INR REFLEX, POCT, B Routine 03/06/2022 11:05 AM ASSOCIATE PROFESSOR COMPUTER SCIENCE INR REFLEX, POCT, B Routine 02/20/2022 11:30 AM ASSOCIATE PROFESSOR COMPUTER SCIENCE Atrial Fibrillation Unspecified Monitoring For Therapeutic Drug Therapy Longterm (Current) Anticoagulant Treatment INR REFLEX, POCT, B Routine 02/20/2022 11:29 AM ASSOCIATE PROFESSOR COMPUTER SCIENCE INR REFLEX, POCT, B Routine 02/13/2022 11:36 AM ASSOCIATE PROFESSOR COMPUTER SCIENCE Atrial Fibrillation Unspecified Monitoring For Therapeutic Drug Therapy Longterm (Current) Anticoagulant Treatment INR REFLEX, POCT, B Routine 02/13/2022 11:35 AM ASSOCIATE PROFESSOR COMPUTER SCIENCE INR REFLEX, POCT, B Routine 02/06/2022 2:50 PM ASSOCIATE PROFESSOR COMPUTER SCIENCE INR REFLEX, POCT, B Routine 02/06/2022 2:50 PM ASSOCIATE PROFESSOR COMPUTER SCIENCE Atrial Fibrillation Unspecified Monitoring For Therapeutic Drug Therapy Longterm (Current) Anticoagulant Treatment INR REFLEX, POCT, B Routine 02/02/2022 12:15 PM ASSOCIATE PROFESSOR COMPUTER SCIENCE INR REFLEX, POCT, B Routine 02/02/2022 12:15 PM ASSOCIATE PROFESSOR COMPUTER SCIENCE Atrial Fibrillation Unspecified Monitoring For Therapeutic Drug Therapy Longterm (Current) Anticoagulant Treatment INR REFLEX, POCT, B Routine 01/23/2022 3:58 PM ASSOCIATE PROFESSOR COMPUTER SCIENCE Atrial Fibrillation Unspecified Monitoring For Therapeutic Drug Therapy 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 INR REFLEX, POCT, B Routine 01/23/2022 3:57 PM ASSOCIATE PROFESSOR COMPUTER SCIENCE INR REFLEX, POCT, B Routine 01/15/2022 11:43 AM ASSOCIATE PROFESSOR COMPUTER SCIENCE Atrial Fibrillation Unspecified Monitoring For Therapeutic Drug Therapy 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 INR REFLEX, POCT, B Routine 01/15/2022 11:42 AM ASSOCIATE PROFESSOR COMPUTER SCIENCE INR REFLEX, POCT, B Routine 01/12/2022 2:19 PM ASSOCIATE PROFESSOR COMPUTER SCIENCE INR REFLEX, POCT, B Routine 01/12/2022 2:19 PM ASSOCIATE PROFESSOR COMPUTER SCIENCE Atrial Fibrillation Unspecified Monitoring For Therapeutic Drug Therapy 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 ECG Routine 12/30/2021 2:24 [...] 59 (HCC) HOLTER MONITOR - IN CLINIC SECTION GANG WORKER Routine 05/27/2020 3:59 PM CDT Cardiomyopathy Dilated (HCC) MR LUMBAR SPINE WITHOUT IV CONTRAST RAD - Routine (most inpatients and all outpatients) 05/17/2020 11:41 AM ASSOCIATE PROFESSOR COMPUTER SCIENCE Pain Low Back LIPID PANEL, S Routine 05/17/2020 10:53 AM ASSOCIATE PROFESSOR COMPUTER SCIENCE Cardiomyopathy Dilated (HCC) THYROID-STIMULATING HORMONE-SENSITIVE (S-TSH) Routine 05/17/2020 10:53 AM ASSOCIATE PROFESSOR COMPUTER SCIENCE Cardiomyopathy Dilated (HCC) BASIC METABOLIC PANEL, S/P Routine 05/17/2020 10:53 AM ASSOCIATE PROFESSOR COMPUTER SCIENCE Cardiomyopathy Dilated (HCC) CBC WITH DIFFERENTIAL, B Routine 05/17/2020 10:53 AM ASSOCIATE PROFESSOR COMPUTER SCIENCE Cardiomyopathy Dilated (HCC) SARS CORONAVIRUS-2 RNA, V [...] ELECTROLYTE PANEL, S Routine 02/11/2015 9:35 AM ASSOCIATE PROFESSOR COMPUTER SCIENCE BUN (BLOOD UREA NITROGEN), S/P Routine 02/11/2015 9:35 AM ASSOCIATE PROFESSOR COMPUTER SCIENCE CREATININE WITH EGFR, S/P Routine 02/11/2015 9:35 AM ASSOCIATE PROFESSOR COMPUTER SCIENCE NT-PRO B-TYPE NATRIURETIC PEPTIDE (BNP), S Routine [...] D.O. LAB BLOOD ADD-ON Final Res ult [facility] [address] [place] [address], [place] OWAT [facility] [place] [address] [place] [address] * (ABNORMAL) INR Reflex, POCT, Blood (06/06/2024 [...] ORDERABLES - CARLOS ENRIQUE CE Final Result [facility] [address] [place] [address], [facility] FB60 [facility] [place] [address] [place] [address] * Lipid Panel (05/15/2024 2:19 PM CDT) Only the most recent of7 resultswithin the time period is included. Pathologist [facility] [place] Triglycerides 114 mg/dL 05/15/2024 2:52 PM CDT [...] D.O. LAB BLOOD ADD-ON Final Res ult [facility] [address] [place] [address], [facility] OWAT [facility] [place] [address] [address] * CBC without Differential (05/15/2024 2:19 PM [...] D.O. LAB BLOOD ADD-ON Final Res ult [facility] [address] [place] [address], [place] OW[place] [facility] [place] [address] [place] [address] * (ABNORMAL) Basic Metabolic Panel (05/15/2024 2:19 [...] D.O. LAB BLOOD ADD-ON Final Res ult [facility] [address] [place] [address], [place] [facility] [place] [address] [place] [address] * (ABNORMAL) Comprehensive Metabolic Panel (12/15/2023 5:00 PM CDT) [facility] Potassium, P 4.6 3.6 - 5.2 [...] ADD-ON Final Res ult Performing Organization Address City/[facility]/ZIP Co de Phone Number [facility] [address] [place] [id number], [place] OW[place] [facility] [place] [address] [address] * (ABNORMAL) EXT Home SARS Coronavirus-2 (COVID-19) Antigen (11/26/2023 6:00 PM CDT) Only the most recent of2 resultswithin the time period is included. EXT Home SARS-CoV-2 Antigen Presumptive Positive(A) Presumptive Negative OTHER (SPECIFY IN DENTAL OFFICE RECEPTIONIST) Swab 11/26/2023 6:00 PM CDT us Historical Provider LAB MICROBIOLOGY - GENERAL O RDERABLES Final Result OTHER (SPECIFY IN DENTAL OFFICE RECEPTIONIST) N/A * (ABNORMAL) CBC with Differential, Blood [...] D.O. LAB BLOOD ADD-ON Final Res ult [facility] [address] [place] [address], [facility] FB60 [facility] [place] [address] [place] [address] * (ABNORMAL) Glucose, Fasting (07/06/2023 8:46 AM CDT) Glucose, P 131(H) 70 - 100 mg/dL 07/06/2023 2:02 PM CDT OWAT Last Intake 13 hr 07/06/2023 1:09 PM CDT OWAT Blood (Blood, Venous) 07/06/2023 8:46 AM CDT 07/06/2023 1:09 PM CDT us Patrick Erickson D.O. LAB BLOOD NON ADD-ON Final Result [facility] [address] [place] [address], [place] [facility] [place] [address] [place] [address] * ECG 12 Lead (06/22/2023 10:27 AM CDT) Only the most recent of3 resultswithin the time period is included. Ventricular Rate ECG/Min [address] Interval 150 ms MUSE QRSD Interval 110 ms MUSE QT Interval 500 ms MUSE QTC Interval 422 ms MUSE P [place] 56 degrees MUSE R [place] 6 degrees MUSE T Wave [place] 269 degrees MUSE 06/22/2023 10:2 7 AM [...] 8.0 10/12/2022 10:32 AM CDT FB60 Specific [place] 1.010 1.001 - 1.035 10/12/2022 10:32 AM CDT FB60 Urobilinogen 0.2 0.2 - 1.0 mg/dL 10/12/2022 10:32 AM CDT FB60 Urine (Urine, Midstream) 10/12/2022 10:02 AM CDT 10/12/2022 10:19 AM CDT us Soheila Zapata P.A.-C., M.S. LAB URINE ORDERA BLES Final Result [facility] [address] [place] [address], [facility] [address] [facility] [place] [address] [place] [address] * (ABNORMAL) Microscopic Manual (10/12/2022 10:02 AM [...] ORDERA BLES Final Result Performing Organization Address [facility] Co de Phone Number [facility] [address] [place] [address], [facility] [address] [address] * (ABNORMAL) Albumin, Random, Urine (10/12/2022 10:02 [...] ORDERA BLES Final Result Performing Organization Address [facility]/ZIP Co de Phone Number [facility] [address] [place] [address], [place] [facility] [place] [address] [place] [address] * (TTE) 2D ECHO DOPPLER COLOR (06/01/2022 8:09 AM CDT) Pathologist [facility] [place] Ejection Fraction 48 MC CV EIMS Mid-Ascending [...] were performed but not reported based on athletics director's judgment. Mild generalized left ventricular hypokinesis. Normal [...] were performed but not reported based on athletics director'sjudgment. Mild generalized left ventricular hypokinesis. Normal leftventricular [...] Result * HOLTER MONITOR - IN CLINIC SECTION GANG WORKER (04/08/2022 2:11 AM ASSOCIATE PROFESSOR COMPUTER SCIENCE) Only the most recent of2 resultswithin the [...] Duration 0 duration INFOBION IC MOME AF [place] 0 percent INFOBIONIC MOME Symptom Count 1 count INFOBI ONIC MOME 04/07/2022 10:3 2 AM ASSOCIATE PROFESSOR COMPUTER SCIENCE Narrative INFOBIONIC MOME - 04/10/2022 9:40 AM ASSOCIATE PROFESSOR COMPUTER SCIENCE [place] 1. The basic rhythm was sinus with [...] were noted in or around these events. Manager User Interface: Smita Venegas/[email or web address] Fellow: Bradly Davenport MD Procedure Note Rachana Silva M.D., Ph.D. - 04/10/2022 [place] 1. The basic rhythm was sinus with [...] bigeminywere noted in or around these events. Manager User Interface: Smita Venegas/[email or web address] Fellow: Bradly Davenport MD Roberto [...] P.A.-C., M.S. LAB BLOOD ADD-ON Final Result [facility] [address] [place] [address], [place] [facility] [place] [address] [place] [address] * Sodium (11/06/2021 2:48 PM CDT) Only the most recent of3 resultswithin the time period is included. Sodium, P 142 135 - 145 mmol/L 11/06/2021 3:22 PM CDT OWAT Blood (Blood, Venous) 11/06/2021 2:48 PM CDT 11/06/2021 2:52 PM CDT Soheila Zapata P.A.-C., M.S. LAB BLOOD ADD-ON Final Result Performing Organization Address [facility] Co de Phone Number [facility] [address] [place] [address], [place] [facility] [place] [address] [place] [address] * Potassium (11/06/2021 2:48 PM CDT) Only the most recent of5 resultswithin the time period is included. Potassium, P 4.2 3.6 - 5.2 mmol/L 11/06/2021 3:22 PM CDT OWAT Blood (Blood, Venous) 11/06/2021 2:48 PM CDT 11/06/2021 2:52 PM CDT Soheila Zapata P.A.-C., M.S. LAB BLOOD ADD-ON Final Result Performing Organization Address City/[facility]/ZIP Co de Phone Number [facility] [address] [place] [address], [place] [facility] [place] [address] [place] [address] * (ABNORMAL) Hemoglobin A1c (11/06/2021 2:48 PM [...] BLOOD ADD-ON Final Result Performing Organization Address City/[facility]/ZIP Co de Phone Number [facility] [address] [place] [address], [facility] OWAT [facility] [place] [address] [place] [address] * (ABNORMAL) Creatinine with Estimated GFR (11/06/2021 [...] BLOOD ADD-ON Final Result Performing Organization Address City/[facility]/ZIP Co de Phone Number [facility] [address] [place] [address], [facility] [place] [address] [place] [address] * MR Lumbar Spine without IV Contrast (05/17/2020 11:41 AM ASSOCIATE PROFESSOR COMPUTER SCIENCE) Anatomical Region Laterality Modality Lumbar Spine, Neuroradiology RST LOS, Neuroradiology ARZ LOS, Neuroradiology FLA LOS N/A Magnetic Resonance 05/17/2020 12:5 1 PM ASSOCIATE PROFESSOR COMPUTER SCIENCE Impressions 05/17/2020 1:09 PM ASSOCIATE PROFESSOR COMPUTER SCIENCE 1. Degenerative spondylosis lumbar spine, as detailed, including essentially severe narrowing of the spinal canal at L4-L5. 2. A left-sided disc extrusion/protrusion at L5-S1 could result in L5 radicular symptoms. 3. Incidental imaging of a 8.6 cm cyst in the spleen probably representing sequela of remote injury or inflammatory insult. Narrative 05/17/2020 1:09 PM ASSOCIATE PROFESSOR COMPUTER SCIENCE EXAM: MR LUMBAR SPINE WITHOUT IV CONTRAST [...] few internal septations is best seen on cutter gas imaging (series 1, images 15-18). This is [...] but does not compress the exiting left [id number] root (series 5, image 2-4). No right [...] few internal septations is best seen on cutter gas imaging (series 1, images 15-18). Thisis probably [...] disc extrusion/protrusion at L5-S1 could result in [id number] symptoms. 3. Incidental imaging of a 8.6 [...] is performed using the Aptima SARS-CoV-2 assay ([employer] which has received Emergency Use Authorization (EUA) by the U.S. Food and Drug Administration. Fact sheets for this Emergency Use Authorization (EUA) assay can be found at the following links: For Healthcare Providers: https://www.fda.gov/media/975223/download For Patients: https://www.fda.gov/media/953593/download Varies (Nasopharynx) 11/25/2019 1:05 PM CDT 11/25/2019 5:08 PM CDT us Patrick Erickson D.O. LAB MICROBIOLOGY - GENERAL ORDERABLES Final Result [facility] [address] [place] [address], [facility] [place] [address] * Hemoglobin (12/28/2017 12:20 PM CDT) Hemoglobin 12.9 11.6 - 15.0 g/dL 12/28/2017 12:36 PM CDT [facility] Blood (Blood, Venous) 12/28/2017 12:20 PM CDT 12/28/2017 12:34 PM CDT us Tariq Estrella M.D. LAB BLOOD ADD-ON Final Res ult [facility] [address] [place] [address], [facility] * (TTE) 2D ECHO DOPPLER COLOR (07/28/2017 [...] - 21 mg/dL 06/30/2017 11:08 AM CDT [facility] Blood 06/30/2017 8:20 AM CDT 06/30/2017 8:36 AM CDT Tariq Estrella M.D. LAB BLOOD ADD-ON Final Res ult Performing Organization Address City/[facility]/ZIP Co de Phone Number [facility] [address] * Automated Differential (08/17/2016 9:54 AM [...] ADD-ON Final Resul t Performing Organization Address City/[facility]/ZIP Co de Phone Number POWERCHART * ALT (Alanine Aminotransferase) (07/09/2016 10:59 AM CDT) Alanine Amniotransferas e, LD 16 7 - 45 UNITL POWERCHART Blood 07/09/2016 10:5 9 AM CDT Tariq Estrella M.D. LAB BLOOD ADD-ON Final Res ult Performing Organization Address [facility] Co de Phone Number POWERCHART * AST (Aspartate Aminotransferase) (07/09/2016 10:59 AM CDT) Aspartate Aminotransferase (AST), S 16 8 - 43 UNITL POWERCHART Blood 07/09/2016 10:5 9 AM CDT Tariq Estrella M.D. LAB BLOOD ADD-ON Final Res ult Performing Organization Address [facility] Co de Phone Number POWERCHART [...] ADD-ON Final Res ult Performing Organization Address [facility] de Phone Number POWERCHART * ECHOCARDIOLOGY IMAGE [...] Laterality Modality Echocardiography 06/13/2015 7:57 AM CDT [facility] Provider CV ECHO PROCEDURES Final Res ult [...] 3.5 PGML POWERCHART Comment: Test Performed by: [place] [address] Matcher Offbearer: Raúl Loyola II, M.D., Ph.D. Blood 08/29/2014 9:34 AM CDT us Braulio Simmons M.D. LAB BLOOD ADD-ON Final Result Performing Organization Address [facility] de Phone Number POWERCHART * T4 (Thyroxine), Free (08/29/2014 9:34 AM CDT) T4 (Thyroxine), Free, S 0.92 0.90 - 1.70 NGDL POWERCHART Blood 08/29/2014 9:34 AM CDT us Braulio Simmons M.D. LAB BLOOD ADD-ON Final Result Performing Organization Address [facility] de Phone Number POWERCHART * Ferritin (08/15/2014 7:52 AM CDT) Ferritin, S 42.8 11.0 - 307.0 NGML POWERCHART Blood 08/15/2014 7:52 AM CDT us Tariq Estrella M.D. LAB BLOOD ADD-ON Final Res ult Performing Organization Address [facility] de Phone [...] (HCC) 12/30/2021 Atrial Fibrillation Unspecified (HCC) 01/06/2022 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 01/06/2022 Atrial Fibrillation Unspecified (HCC) 01/07/2022 Monitoring For Therapeutic Drug Therapy 01/07/2022 Longterm (Current) Anticoagulant Treatment 01/07/2022 Atrial Fibrillation Unspecified (HCC) 01/12/2022 Monitoring For Therapeutic Drug Therapy 01/12/2022 Longterm (Current) Anticoagulant Treatment 01/12/2022 Atrial Fibrillation Unspecified (HCC) 01/12/2022 Monitoring For Therapeutic Drug Therapy 01/12/2022 Longterm (Current) Anticoagulant Treatment 01/12/2022 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 01/14/2022 Radiculopathy Lumbosacral 01/14/2022 Atrial Fibrillation Unspecified (HCC) 01/15/2022 Monitoring For Therapeutic Drug Therapy 01/15/2022 Longterm (Current) Anticoagulant Treatment 01/15/2022 Atrial Fibrillation Unspecified (HCC) 01/15/2022 Monitoring For Therapeutic Drug Therapy 01/15/2022 Longterm (Current) Anticoagulant Treatment 01/15/2022 Atrial Fibrillation Unspecified (HCC) 01/16/2022 Monitoring For Therapeutic Drug Therapy 01/16/2022 Longterm (Current) Anticoagulant Treatment 01/16/2022 Atrial Fibrillation Unspecified (HCC) 01/23/2022 Monitoring For Therapeutic Drug Therapy 01/23/2022 Longterm (Current) Anticoagulant Treatment 01/23/2022 Atrial Fibrillation Unspecified (HCC) 01/23/2022 Monitoring For Therapeutic Drug Therapy 01/23/2022 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 01/23/2022 Atrial Fibrillation Unspecified (HCC) 02/02/2022 Monitoring For Therapeutic Drug Therapy 02/02/2022 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 02/02/2022 Atrial Fibrillation Unspecified (HCC) 02/02/2022 Monitoring For Therapeutic Drug Therapy 02/02/2022 Longterm (Current) Anticoagulant Treatment 02/02/2022 Atrial Fibrillation Unspecified (HCC) 02/03/2022 Monitoring For Therapeutic Drug Therapy 02/03/2022 Longterm (Current) Anticoagulant Treatment 02/03/2022 Atrial Fibrillation Unspecified (HCC) 02/06/2022 Monitoring For Therapeutic Drug Therapy 02/06/2022 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 02/06/2022 Atrial Fibrillation Unspecified (HCC) 02/09/2022 Monitoring For Therapeutic Drug Therapy 02/09/2022 Longterm (Current) Anticoagulant Treatment 02/09/2022 Atrial Fibrillation Unspecified (HCC) 02/13/2022 Monitoring For Therapeutic Drug Therapy 02/13/2022 Longterm (Current) Anticoagulant Treatment 02/13/2022 Atrial Fibrillation Unspecified (HCC) 02/13/2022 Monitoring For Therapeutic Drug Therapy 02/13/2022 Longterm (Current) Anticoagulant Treatment 02/13/2022 Atrial Fibrillation Unspecified (HCC) 02/20/2022 Monitoring For Therapeutic Drug Therapy 02/20/2022 Longterm (Current) Anticoagulant Treatment 02/20/2022 Atrial Fibrillation Unspecified (HCC) 02/20/2022 Monitoring For Therapeutic Drug Therapy 02/20/2022 Longterm (Current) Anticoagulant Treatment 02/20/2022 Atrial Fibrillation Unspecified (HCC) 03/06/2022 Monitoring For Therapeutic Drug Therapy 03/06/2022 Longterm (Current) Anticoagulant Treatment 03/06/2022 Atrial Fibrillation Unspecified (HCC) 03/06/2022 Monitoring For Therapeutic Drug Therapy 03/06/2022 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 03/06/2022 Atrial Fibrillation Unspecified (HCC) 03/16/2022 Monitoring For Therapeutic Drug Therapy 03/16/2022 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 03/16/2022 Atrial Fibrillation Unspecified (HCC) 03/16/2022 Monitoring For Therapeutic Drug Therapy 03/16/2022 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 03/16/2022 Atrial Fibrillation Unspecified (HCC) 03/24/2022 Monitoring For Therapeutic Drug Therapy 03/24/2022 Longterm (Current) Anticoagulant Treatment 03/24/2022 Atrial Fibrillation Unspecified (HCC) 03/24/2022 Monitoring For Therapeutic Drug Therapy 03/24/2022 Longterm (Current) Anticoagulant Treatment 03/24/2022 Atrial Fibrillation Unspecified (HCC) 03/27/2022 Monitoring For Therapeutic Drug Therapy 03/27/2022 Longterm (Current) Anticoagulant Treatment 03/27/2022 Atrial Fibrillation Unspecified (HCC) 03/31/2022 Monitoring For Therapeutic Drug Therapy 03/31/2022 Longterm (Current) Anticoagulant Treatment 03/31/2022 Atrial Fibrillation Unspecified (HCC) 03/31/2022 Monitoring For Therapeutic Drug Therapy 03/31/2022 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 03/31/2022 Atrial Fibrillation Unspecified (HCC) 04/07/2022 Monitoring For Therapeutic Drug Therapy 04/07/2022 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 04/07/2022 Atrial Fibrillation Unspecified (HCC) 04/07/2022 Monitoring For Therapeutic Drug Therapy 04/07/2022 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 04/07/2022 Atrial Fibrillation Other Persistent (HCC) 04/07/2022 Atrial Fibrillation Unspecified (HCC) 04/21/2022 Atrial Fibrillation Unspecified (HCC) 04/21/2022 Monitoring For Therapeutic Drug Therapy 04/21/2022 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 04/21/2022 Atrial Fibrillation Unspecified (HCC) 04/21/2022 Monitoring For Therapeutic Drug Therapy 04/21/2022 Longterm (Current) Anticoagulant Treatment 04/21/2022 Atrial Fibrillation Unspecified (HCC) 04/28/2022 Monitoring For Therapeutic Drug Therapy 04/28/2022 Longterm (Current) Anticoagulant Treatment 04/28/2022 Atrial Fibrillation Unspecified (HCC) 04/28/2022 Monitoring For Therapeutic Drug Therapy 04/28/2022 Longterm (Current) Anticoagulant Treatment 04/28/2022 Atrial Fibrillation Unspecified (HCC) 04/29/2022 Monitoring For Therapeutic Drug Therapy 04/29/2022 Longterm (Current) Anticoagulant Treatment 04/29/2022 Deficiency Estrogen Post Menopausal 05/12/2022 Atrial Fibrillation Unspecified (HCC) 05/12/2022 Monitoring For Therapeutic Drug Therapy 05/12/2022 Longterm (Current) Anticoagulant Treatment 05/12/2022 Atrial Fibrillation Unspecified (HCC) 05/12/2022 Monitoring For Therapeutic Drug Therapy 05/12/2022 Longterm (Current) Anticoagulant Treatment 05/12/2022 Cardiomyopathy Dilated (HCC) 06/01/2022 Atrial Fibrillation Unspecified (HCC) 06/03/2022 Longterm (Current) Anticoagulant Treatment 06/03/2022 Cardiomyopathy Dilated (HCC) 06/03/2022 Hyperlipidemia On Treatment 06/03/2022 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 Glomerular Filtration Rate (GFR) 45 To 59 (HCC) 06/03/2022 Atrial Fibrillation Unspecified (HCC) 06/09/2022 Monitoring For Therapeutic Drug Therapy 06/09/2022 Longterm (Current) Anticoagulant Treatment 06/09/2022 Atrial Fibrillation Unspecified (HCC) 06/09/2022 Monitoring For Therapeutic Drug Therapy 06/09/2022 Longterm (Current) Anticoagulant Treatment 06/09/2022 Atrial Fibrillation Unspecified (HCC) 06/15/2022 Monitoring For Therapeutic Drug Therapy 06/15/2022 Longterm (Current) Anticoagulant Treatment 06/15/2022 Atrial Fibrillation Unspecified (HCC) 06/15/2022 Monitoring For Therapeutic Drug Therapy 06/15/2022 Longterm (Current) Anticoagulant Treatment 06/15/2022 Atrial Fibrillation Unspecified (HCC) 06/19/2022 Monitoring For Therapeutic Drug Therapy 06/19/2022 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 06/19/2022 Atrial Fibrillation Unspecified (HCC) 06/19/2022 Monitoring For Therapeutic Drug Therapy 06/19/2022 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 06/19/2022 Atrial Fibrillation Unspecified (HCC) 06/29/2022 Monitoring For Therapeutic Drug Therapy 06/29/2022 Longterm (Current) Anticoagulant Treatment 06/29/2022 Atrial Fibrillation Unspecified (HCC) 06/29/2022 Monitoring For Therapeutic Drug Therapy 06/29/2022 Longterm (Current) Anticoagulant Treatment 06/29/2022 Atrial Fibrillation Unspecified (HCC) 07/27/2022 Monitoring For Therapeutic Drug Therapy 07/27/2022 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 07/27/2022 Atrial Fibrillation Unspecified (HCC) 07/27/2022 Monitoring For Therapeutic Drug Therapy 07/27/2022 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 07/27/2022 Atrial Fibrillation Unspecified (HCC) 08/07/2022 Monitoring For Therapeutic Drug Therapy 08/07/2022 Longterm (Current) Anticoagulant Treatment 08/07/2022 Atrial Fibrillation Unspecified (HCC) 08/10/2022 Monitoring For Therapeutic Drug Therapy 08/10/2022 Longterm (Current) Anticoagulant Treatment 08/10/2022 Atrial Fibrillation Unspecified (HCC) 08/10/2022 Monitoring For Therapeutic Drug Therapy 08/10/2022 Longterm (Current) Anticoagulant Treatment 08/10/2022 Monitoring For Therapeutic Drug Therapy 08/12/2022 Laceration Blood Vessel Left Index Finger Sequela 08/31/2022 Atrial Fibrillation Paroxysmal (HCC) 09/01/2022 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 09/01/2022 Bradycardia 09/01/2022 Cardiomyopathy Dilated (HCC) 09/01/2022 Hypertensive Heart With Heart Failure And Chronic Kidney Disease (CKD) Stage 3a Glomerular Filtration Rate (GFR) 45 To 59 (HCC) 09/01/2022 Atrial Fibrillation Unspecified (HCC) 09/03/2022 Monitoring For Therapeutic Drug Therapy 09/03/2022 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 09/03/2022 Atrial Fibrillation Paroxysmal (HCC) 09/03/2022 Monitoring For Therapeutic Drug Therapy 09/03/2022 Longterm (Current) Anticoagulant Treatment 09/03/2022 Hypertensive Heart With Heart Failure And Chronic Kidney Disease (CKD) Stage 3a Glomerular Filtration Rate (GFR) 45 To 59 (HCC) 09/17/2022 Monitoring For Therapeutic Drug Therapy 09/17/2022 Atrial Fibrillation Paroxysmal (HCC) 09/17/2022 Monitoring For Therapeutic Drug Therapy 09/17/2022 Atrial Fibrillation Paroxysmal (HCC) 09/17/2022 Monitoring For Therapeutic Drug Therapy 09/17/2022 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 09/17/2022 Atrial Fibrillation Paroxysmal (HCC) 10/01/2022 Monitoring For Therapeutic Drug Therapy 10/01/2022 Longterm (Current) Anticoagulant Treatment 10/01/2022 Atrial Fibrillation Paroxysmal (HCC) 10/02/2022 Longterm (Current) Anticoagulant Treatment 10/02/2022 Monitoring For Therapeutic Drug Therapy 10/02/2022 Atrial Fibrillation Paroxysmal (HCC) 10/02/2022 Monitoring For Therapeutic Drug Therapy 10/02/2022 Longterm (Current) Anticoagulant Treatment 10/02/2022 Atrial Fibrillation Paroxysmal (HCC) 10/12/2022 Monitoring For Therapeutic Drug Therapy 10/12/2022 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 10/12/2022 Hypertensive Heart With Heart Failure And Chronic Kidney Disease (CKD) Stage 3a Glomerular Filtration Rate (GFR) 45 To 59 (HCC) 10/12/2022 Atrial Fibrillation Paroxysmal (HCC) 10/12/2022 Monitoring For Therapeutic Drug Therapy 10/12/2022 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 10/12/2022 Atrial Fibrillation Paroxysmal (HCC) 10/21/2022 Monitoring For Therapeutic Drug Therapy 10/21/2022 Longterm (Current) Anticoagulant Treatment 10/21/2022 Atrial Fibrillation Paroxysmal (HCC) 10/27/2022 Monitoring For Therapeutic Drug Therapy 10/27/2022 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 10/27/2022 Atrial Fibrillation Paroxysmal (HCC) 10/28/2022 Monitoring For Therapeutic Drug Therapy 10/28/2022 Longterm (Current) Anticoagulant Treatment 10/28/2022 Atrial Fibrillation Paroxysmal (HCC) 11/04/2022 Monitoring For Therapeutic Drug Therapy 11/04/2022 Longterm (Current) Anticoagulant Treatment 11/04/2022 Atrial Fibrillation Paroxysmal (HCC) 11/04/2022 Monitoring For Therapeutic Drug Therapy 11/04/2022 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 11/04/2022 Atrial Fibrillation Paroxysmal (HCC) 11/10/2022 Monitoring For Therapeutic Drug Therapy 11/10/2022 Longterm (Current) Anticoagulant Treatment 11/10/2022 Atrial Fibrillation Paroxysmal (HCC) 11/10/2022 Monitoring For Therapeutic Drug Therapy 11/10/2022 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 11/10/2022 Atrial Fibrillation Paroxysmal (HCC) 11/17/2022 Monitoring For Therapeutic Drug Therapy 11/17/2022 Longterm (Current) Anticoagulant Treatment 11/17/2022 Atrial Fibrillation Paroxysmal (HCC) 11/17/2022 Monitoring For Therapeutic Drug Therapy 11/17/2022 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 11/17/2022 Atrial Fibrillation Paroxysmal (HCC) 12/15/2022 Monitoring For Therapeutic Drug Therapy 12/15/2022 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 12/15/2022 Hypertensive 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 3a Glomerular Filtration Rate (GFR) 45 To 59 (HCC) 12/15/2022 Atrial Fibrillation Paroxysmal (HCC) 12/15/2022 Monitoring For Therapeutic Drug Therapy 12/15/2022 Longterm (Current) Anticoagulant Treatment 12/15/2022 Atrial Fibrillation Paroxysmal (HCC) 01/26/2023 Monitoring For Therapeutic Drug Therapy 01/26/2023 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 01/26/2023 Atrial Fibrillation Paroxysmal (HCC) 01/26/2023 Monitoring For Therapeutic Drug Therapy 01/26/2023 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 01/26/2023 Atrial Fibrillation Paroxysmal (HCC) 02/02/2023 Monitoring For Therapeutic Drug Therapy 02/02/2023 Longterm (Current) Anticoagulant Treatment 02/02/2023 Atrial Fibrillation Paroxysmal (HCC) 02/02/2023 Monitoring For Therapeutic Drug Therapy 02/02/2023 Longterm (Current) Anticoagulant Treatment 02/02/2023 Atrial Fibrillation Paroxysmal (HCC) 02/16/2023 Monitoring For Therapeutic Drug Therapy 02/16/2023 Longterm (Current) Anticoagulant Treatment 02/16/2023 Atrial Fibrillation Paroxysmal (HCC) 02/16/2023 Monitoring For Therapeutic Drug Therapy 02/16/2023 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 02/16/2023 Atrial Fibrillation Paroxysmal (HCC) 02/24/2023 Monitoring For Therapeutic Drug Therapy 02/24/2023 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 02/24/2023 COVID-19 Infection 02/24/2023 ERRONEOUS ENCOUNTER--DISREGARD 02/24/2023 Atrial Fibrillation Paroxysmal (HCC) 02/25/2023 Monitoring For Therapeutic Drug Therapy 02/25/2023 Longterm (Current) Anticoagulant Treatment 02/25/2023 Atrial Fibrillation Paroxysmal (HCC) 03/05/2023 Monitoring For Therapeutic Drug Therapy 03/05/2023 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 03/05/2023 Atrial Fibrillation Paroxysmal (HCC) 03/05/2023 Monitoring For Therapeutic Drug Therapy 03/05/2023 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 03/05/2023 Hypertensive 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 3a Glomerular Filtration Rate (GFR) 45 To 59 (HCC) 03/05/2023 Hyperlipidemia On Treatment 03/05/2023 Atrial Fibrillation Paroxysmal (HCC) 03/09/2023 Monitoring For Therapeutic Drug Therapy 03/09/2023 Longterm (Current) Anticoagulant Treatment 03/09/2023 Hypertensive Heart With Heart Failure And Chronic Kidney Disease (CKD) Stage 3a Glomerular Filtration Rate (GFR) 45 To 59 (HCC) 03/09/2023 Hyperlipidemia On Treatment 03/09/2023 Atrial Fibrillation Paroxysmal (HCC) 03/09/2023 Monitoring For Therapeutic Drug Therapy 03/09/2023 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 03/09/2023 Atrial Fibrillation Paroxysmal (HCC) 03/12/2023 Monitoring For Therapeutic Drug Therapy 03/12/2023 Longterm (Current) Anticoagulant Treatment 03/12/2023 Hypertensive Heart With Heart Failure And Chronic Kidney Disease (CKD) Stage 3a Glomerular Filtration Rate (GFR) 45 To 59 (HCC) 03/12/2023 Hyperlipidemia On Treatment 03/12/2023 Atrial Fibrillation Paroxysmal (HCC) 03/12/2023 Monitoring For Therapeutic Drug Therapy 03/12/2023 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 03/12/2023 Hypertensive Heart With Heart Failure And Chronic Kidney Disease (CKD) Stage 3a Glomerular Filtration Rate (GFR) 45 To 59 (HCC) 03/19/2023 Hyperlipidemia On Treatment 03/19/2023 Atrial Fibrillation Paroxysmal (HCC) 03/19/2023 Monitoring For Therapeutic Drug Therapy 03/19/2023 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 03/19/2023 Hypertensive Heart With [...] 04/02/2023 Monitoring For Therapeutic Drug Therapy 04/02/2023 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 04/02/2023 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) Stage 3a Glomerular Filtration Rate (GFR) 45 To 59 (HCC) 04/02/2023 Hyperlipidemia On Treatment 04/02/2023 Atrial Fibrillation Paroxysmal (HCC) 04/02/2023 Monitoring For Therapeutic Drug Therapy 04/02/2023 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 04/02/2023 Hypertensive Heart With [...] 04/30/2023 Monitoring For Therapeutic Drug Therapy 04/30/2023 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 04/30/2023 Hypertensive Heart With Heart Failure And Chronic Kidney Disease (CKD) Stage 3a Glomerular Filtration Rate (GFR) 45 To 59 (HCC) 04/30/2023 Hyperlipidemia On Treatment 04/30/2023 Atrial Fibrillation Paroxysmal (HCC) 04/30/2023 Monitoring For Therapeutic Drug Therapy 04/30/2023 Longterm (Current) Anticoagulant Treatment 04/30/2023 Hypertensive Heart With Heart Failure And Chronic Kidney Disease (CKD) Stage 3a Glomerular Filtration Rate (GFR) 45 To 59 (HCC) 05/07/2023 Hyperlipidemia On Treatment 05/07/2023 Atrial Fibrillation Paroxysmal (HCC) 05/07/2023 Monitoring For Therapeutic Drug Therapy 05/07/2023 Longterm (Current) Anticoagulant Treatment 05/07/2023 Hypertensive Heart With Heart Failure And Chronic Kidney Disease (CKD) Stage 3a Glomerular Filtration Rate (GFR) 45 To 59 (HCC) 05/07/2023 Hyperlipidemia On Treatment 05/07/2023 Atrial Fibrillation Paroxysmal (HCC) 05/07/2023 Monitoring For Therapeutic Drug Therapy 05/07/2023 Longterm (Current) Anticoagulant Treatment 05/07/2023 Atrial Fibrillation Paroxysmal (HCC) 05/21/2023 Hypertensive Heart With Heart Failure And Chronic Kidney Disease (CKD) Stage 3a Glomerular Filtration Rate (GFR) 45 To 59 (HCC) 05/21/2023 Hyperlipidemia On Treatment 05/21/2023 Atrial Fibrillation Paroxysmal (HCC) 05/21/2023 Monitoring For Therapeutic Drug Therapy 05/21/2023 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 05/21/2023 Hypertensive Heart With Heart Failure And Chronic Kidney Disease (CKD) Stage 3a Glomerular Filtration Rate (GFR) 45 To 59 (HCC) 05/27/2023 Hyperlipidemia On Treatment 05/27/2023 Atrial Fibrillation Paroxysmal (HCC) 05/27/2023 Monitoring For Therapeutic Drug Therapy 05/27/2023 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 05/27/2023 Hypertensive Heart With Heart Failure And Chronic Kidney Disease (CKD) Stage 3a Glomerular Filtration Rate (GFR) 45 To 59 (HCC) 05/27/2023 Hyperlipidemia On Treatment 05/27/2023 Atrial Fibrillation Paroxysmal (HCC) 05/27/2023 Monitoring For Therapeutic Drug Therapy 05/27/2023 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 05/27/2023 Hypertensive Heart With Heart Failure And Chronic Kidney Disease (CKD) Stage 3a Glomerular Filtration Rate (GFR) 45 To 59 (HCC) 06/03/2023 Hyperlipidemia On Treatment 06/03/2023 Atrial Fibrillation Paroxysmal (HCC) 06/03/2023 Monitoring For Therapeutic Drug Therapy 06/03/2023 Longterm (Current) Anticoagulant Treatment 06/03/2023 Hypertensive Heart With Heart Failure And Chronic Kidney Disease (CKD) Stage 3a Glomerular Filtration Rate (GFR) 45 To 59 (HCC) 06/03/2023 Hyperlipidemia On Treatment 06/03/2023 Atrial Fibrillation Paroxysmal (HCC) 06/03/2023 Monitoring For Therapeutic Drug Therapy 06/03/2023 Longterm (Current) Anticoagulant Treatment 06/03/2023 Atrial Fibrillation Paroxysmal (HCC) 06/22/2023 Hypertensive Heart With Heart Failure And Chronic Kidney Disease (CKD) Stage 3a Glomerular Filtration Rate (GFR) 45 To 59 (HCC) 06/22/2023 Hyperlipidemia On Treatment 06/22/2023 Atrial Fibrillation Paroxysmal (HCC) 06/22/2023 Monitoring For Therapeutic Drug Therapy 06/22/2023 Longterm (Current) Anticoagulant Treatment 06/22/2023 Atrial Fibrillation Unspecified (HCC) 06/22/2023 Atrial Fibrillation Paroxysmal (HCC) 06/22/2023 Longterm (Current) Anticoagulant Treatment 06/22/2023 Monitoring For Therapeutic [...] 06/24/2023 Monitoring For Therapeutic Drug Therapy 06/24/2023 Longterm (Current) Anticoagulant Treatment 06/24/2023 Hypertensive Heart With [...] 07/06/2023 Monitoring For Therapeutic Drug Therapy 07/06/2023 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 07/06/2023 Atrial Fibrillation Paroxysmal (HCC) 07/06/2023 Hypertensive Heart With Heart Failure And Chronic Kidney Disease (CKD) Stage 3a Glomerular Filtration Rate (GFR) 45 To 59 (HCC) 07/06/2023 Hyperlipidemia On Treatment 07/06/2023 Monitoring For Therapeutic Drug Therapy 07/06/2023 Longterm (Current) Anticoagulant Treatment 07/06/2023 Hypertensive Heart With Heart Failure And Chronic Kidney Disease (CKD) Stage 3a Glomerular Filtration Rate (GFR) 45 To 59 (HCC) 08/05/2023 Hyperlipidemia On Treatment 08/05/2023 Atrial Fibrillation Paroxysmal (HCC) 08/05/2023 Monitoring For Therapeutic Drug Therapy 08/05/2023 Longterm (Current) Anticoagulant Treatment 08/05/2023 Hypertensive Heart With Heart Failure And Chronic Kidney Disease (CKD) Stage 3a Glomerular Filtration Rate (GFR) 45 To 59 (HCC) 08/06/2023 Hyperlipidemia On Treatment 08/06/2023 Atrial Fibrillation Paroxysmal (HCC) 08/06/2023 Monitoring For Therapeutic Drug Therapy 08/06/2023 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 08/06/2023 Hypertensive Heart With Heart Failure And Chronic Kidney Disease (CKD) Stage 3a Glomerular Filtration Rate (GFR) 45 To 59 (HCC) 08/13/2023 Hyperlipidemia On Treatment 08/13/2023 Atrial Fibrillation Paroxysmal (HCC) 08/13/2023 Monitoring For Therapeutic Drug Therapy 08/13/2023 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 08/13/2023 Hypertensive Heart With Heart Failure And Chronic Kidney Disease (CKD) Stage 3a Glomerular Filtration Rate (GFR) 45 To 59 (HCC) 08/16/2023 Hyperlipidemia On Treatment 08/16/2023 Atrial Fibrillation Paroxysmal (HCC) 08/16/2023 Monitoring For Therapeutic Drug Therapy 08/16/2023 Longterm (Current) Anticoagulant Treatment 08/16/2023 Hypertensive Heart With Heart Failure And Chronic Kidney Disease (CKD) Stage 3a Glomerular Filtration Rate (GFR) 45 To 59 (HCC) 08/17/2023 Hyperlipidemia On Treatment 08/17/2023 Atrial Fibrillation Paroxysmal (HCC) 08/17/2023 Monitoring For Therapeutic Drug Therapy 08/17/2023 Longterm (Current) Anticoagulant Treatment 08/17/2023 Hypertensive Heart With Heart Failure And Chronic Kidney Disease (CKD) Stage 3a Glomerular Filtration Rate (GFR) 45 To 59 (HCC) 08/24/2023 Hyperlipidemia On Treatment 08/24/2023 Atrial Fibrillation Paroxysmal (HCC) 08/24/2023 Monitoring For Therapeutic Drug Therapy 08/24/2023 Longterm (Current) Anticoagulant Treatment 08/24/2023 Hypertensive Heart With Heart Failure And Chronic Kidney Disease (CKD) Stage 3a Glomerular Filtration Rate (GFR) 45 To 59 (HCC) 08/24/2023 Hyperlipidemia On Treatment 08/24/2023 Atrial Fibrillation Paroxysmal (HCC) 08/24/2023 Monitoring For Therapeutic Drug Therapy 08/24/2023 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 08/24/2023 Hypertensive Heart With Heart Failure And Chronic Kidney Disease (CKD) Stage 3a Glomerular Filtration Rate (GFR) 45 To 59 (HCC) 08/27/2023 Hyperlipidemia On Treatment 08/27/2023 Atrial Fibrillation Paroxysmal (HCC) 08/27/2023 Monitoring For Therapeutic Drug Therapy 08/27/2023 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 08/27/2023 Hypertensive Heart With Heart Failure And Chronic Kidney Disease (CKD) Stage 3a Glomerular Filtration Rate (GFR) 45 To 59 (HCC) 08/27/2023 Hyperlipidemia On Treatment 08/27/2023 Atrial Fibrillation Paroxysmal (HCC) 08/27/2023 Monitoring For Therapeutic Drug Therapy 08/27/2023 Longterm (Current) Anticoagulant Treatment 08/27/2023 Hypertensive Heart With Heart Failure And Chronic Kidney Disease (CKD) Stage 3a Glomerular Filtration Rate (GFR) 45 To 59 (HCC) 09/02/2023 Hyperlipidemia On Treatment 09/02/2023 Atrial Fibrillation Paroxysmal (HCC) 09/02/2023 Monitoring For Therapeutic Drug Therapy 09/02/2023 Longterm (Current) Anticoagulant Treatment 09/02/2023 Hypertensive Heart With Heart Failure And Chronic Kidney Disease (CKD) Stage 3a Glomerular Filtration Rate (GFR) 45 To 59 (HCC) 09/02/2023 Hyperlipidemia On Treatment 09/02/2023 Atrial Fibrillation Paroxysmal (HCC) 09/02/2023 Monitoring For Therapeutic Drug Therapy 09/02/2023 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 09/02/2023 Hypertensive Heart With Heart Failure And Chronic Kidney Disease (CKD) Stage 3a Glomerular Filtration Rate (GFR) 45 To 59 (HCC) 09/08/2023 Hyperlipidemia On Treatment 09/08/2023 Atrial Fibrillation Paroxysmal (HCC) 09/08/2023 Monitoring For Therapeutic Drug Therapy 09/08/2023 Longterm (Current) Anticoagulant Treatment 09/08/2023 Hypertensive Heart With Heart Failure And Chronic Kidney Disease (CKD) Stage 3a Glomerular Filtration Rate (GFR) 45 To 59 (HCC) 09/08/2023 Hyperlipidemia On Treatment 09/08/2023 Atrial Fibrillation Paroxysmal (HCC) 09/08/2023 Monitoring For Therapeutic Drug Therapy 09/08/2023 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 09/08/2023 Hypertensive Heart With Heart Failure And Chronic Kidney Disease (CKD) Stage 3a Glomerular Filtration Rate (GFR) 45 To 59 (HCC) 09/14/2023 Hyperlipidemia On Treatment 09/14/2023 Atrial Fibrillation Paroxysmal (HCC) 09/14/2023 Monitoring For Therapeutic Drug Therapy 09/14/2023 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 09/14/2023 Hypertensive Heart With Heart Failure And Chronic Kidney Disease (CKD) Stage 3a Glomerular Filtration Rate (GFR) 45 To 59 (HCC) 09/14/2023 Hyperlipidemia On Treatment 09/14/2023 Atrial Fibrillation Paroxysmal (HCC) 09/14/2023 Monitoring For Therapeutic Drug Therapy 09/14/2023 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 09/14/2023 Hypertensive Heart With Heart Failure And Chronic Kidney Disease (CKD) Stage 3a Glomerular Filtration Rate (GFR) 45 To 59 (HCC) 09/21/2023 Hyperlipidemia On Treatment 09/21/2023 Atrial Fibrillation Paroxysmal (HCC) 09/21/2023 Monitoring For Therapeutic Drug Therapy 09/21/2023 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 09/21/2023 Hypertensive Heart With Heart Failure And Chronic Kidney Disease (CKD) Stage 3a Glomerular Filtration Rate (GFR) 45 To 59 (HCC) 09/21/2023 Hyperlipidemia On Treatment 09/21/2023 Atrial Fibrillation Paroxysmal (HCC) 09/21/2023 Monitoring For Therapeutic Drug Therapy 09/21/2023 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 09/21/2023 Hypertensive Heart With Heart Failure And Chronic Kidney Disease (CKD) Stage 3a Glomerular Filtration Rate (GFR) 45 To 59 (HCC) 09/24/2023 Hyperlipidemia On Treatment 09/24/2023 Atrial Fibrillation Paroxysmal (HCC) 09/24/2023 Monitoring For Therapeutic Drug Therapy 09/24/2023 Longterm (Current) Anticoagulant Treatment 09/24/2023 Hypertensive Heart With Heart Failure And Chronic Kidney Disease (CKD) Stage 3a Glomerular Filtration Rate (GFR) 45 To 59 (HCC) 09/24/2023 Hyperlipidemia On Treatment 09/24/2023 Atrial Fibrillation Paroxysmal (HCC) 09/24/2023 Monitoring For Therapeutic Drug Therapy 09/24/2023 Longterm (Current) Anticoagulant Treatment 09/24/2023 Hypertensive Heart With Heart Failure And Chronic Kidney Disease (CKD) Stage 3a Glomerular Filtration Rate (GFR) 45 To 59 (HCC) 10/01/2023 Hyperlipidemia On Treatment 10/01/2023 Atrial Fibrillation Paroxysmal (HCC) 10/01/2023 Monitoring For Therapeutic Drug Therapy 10/01/2023 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 10/01/2023 Hypertensive Heart And Chronic Kidney Disease With Heart Failure And Stage 1 To 4 Chronic Kidney Disease Or Unspecified Chronic Kidney Disease (HCC) 10/04/2023 Hyperlipidemia On Treatment 10/04/2023 Atrial Fibrillation Paroxysmal (HCC) 10/04/2023 Monitoring For Therapeutic Drug Therapy 10/04/2023 Longterm (Current) Anticoagulant Treatment 10/04/2023 Atrial Fibrillation Paroxysmal (HCC) 10/07/2023 Hypertensive Heart And Chronic Kidney Disease With Heart Failure And Stage 1 To 4 Chronic Kidney Disease Or Unspecified Chronic Kidney Disease (HCC) 10/08/2023 Hyperlipidemia On Treatment 10/08/2023 Atrial Fibrillation Paroxysmal (HCC) 10/08/2023 Monitoring For Therapeutic Drug Therapy 10/08/2023 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 10/08/2023 Hypertensive Heart And Chronic Kidney Disease With Heart Failure And Stage 1 To 4 Chronic Kidney Disease Or Unspecified Chronic Kidney Disease (HCC) 10/15/2023 Hyperlipidemia On Treatment 10/15/2023 Atrial Fibrillation Paroxysmal (HCC) 10/15/2023 Monitoring For Therapeutic Drug Therapy 10/15/2023 Longterm (Current) Anticoagulant Treatment 10/15/2023 Hypertensive Heart And Chronic Kidney Disease With Heart Failure And Stage 1 To 4 Chronic Kidney Disease Or Unspecified Chronic Kidney Disease (HCC) 10/19/2023 Hyperlipidemia On Treatment 10/19/2023 Atrial Fibrillation Paroxysmal (HCC) 10/19/2023 Monitoring For Therapeutic Drug Therapy 10/19/2023 Longterm (Current) Anticoagulant Treatment 10/19/2023 Hypertensive Heart And Chronic Kidney Disease With Heart Failure And Stage 1 To 4 Chronic Kidney Disease Or Unspecified Chronic Kidney Disease (HCC) 10/28/2023 Hyperlipidemia On Treatment 10/28/2023 Atrial Fibrillation Paroxysmal (HCC) 10/28/2023 Monitoring For Therapeutic Drug Therapy 10/28/2023 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 10/28/2023 Hypertensive Heart And Chronic Kidney Disease With Heart Failure And Stage 1 To 4 Chronic Kidney Disease Or Unspecified Chronic Kidney Disease (HCC) 10/28/2023 Hyperlipidemia On Treatment 10/28/2023 Atrial Fibrillation Paroxysmal (HCC) 10/28/2023 Monitoring For Therapeutic Drug Therapy 10/28/2023 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 10/28/2023 Hypertensive Heart And Chronic Kidney Disease With Heart Failure And Stage 1 To 4 Chronic Kidney Disease Or Unspecified Chronic Kidney Disease (HCC) 11/02/2023 Hyperlipidemia On Treatment 11/02/2023 Atrial Fibrillation Paroxysmal (HCC) 11/02/2023 Monitoring For Therapeutic Drug Therapy 11/02/2023 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 11/02/2023 Hypertensive Heart And Chronic Kidney Disease With Heart Failure And Stage 1 To 4 Chronic Kidney Disease Or Unspecified Chronic Kidney Disease (HCC) 11/02/2023 Hyperlipidemia On Treatment 11/02/2023 Atrial Fibrillation Paroxysmal (HCC) 11/02/2023 Monitoring For Therapeutic Drug Therapy 11/02/2023 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 11/02/2023 Hypertensive Heart And Chronic Kidney Disease With Heart Failure And Stage 1 To 4 Chronic Kidney Disease Or Unspecified Chronic Kidney Disease (HCC) 11/02/2023 Hyperlipidemia On Treatment 11/02/2023 Atrial Fibrillation Paroxysmal (HCC) 11/02/2023 Monitoring For Therapeutic Drug Therapy 11/02/2023 Longterm (Current) Anticoagulant Treatment 11/02/2023 Atrial Fibrillation Paroxysmal (HCC) 11/12/2023 Monitoring For Therapeutic Drug Therapy 11/12/2023 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 11/12/2023 Hypertensive Heart And Chronic Kidney Disease With Heart Failure And Stage 1 To 4 Chronic Kidney Disease Or Unspecified Chronic Kidney Disease (HCC) 11/12/2023 Hyperlipidemia On Treatment 11/12/2023 Atrial Fibrillation Paroxysmal (HCC) 11/12/2023 Monitoring For Therapeutic Drug Therapy 11/12/2023 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 11/12/2023 Hypertensive Heart And Chronic Kidney Disease With Heart Failure And Stage 1 To 4 Chronic Kidney Disease Or Unspecified Chronic Kidney Disease (HCC) 11/22/2023 Hyperlipidemia On Treatment 11/22/2023 Atrial Fibrillation Paroxysmal (HCC) 11/22/2023 Monitoring For Therapeutic Drug Therapy 11/22/2023 Longterm (Current) Anticoagulant Treatment 11/22/2023 Hypertensive Heart And Chronic Kidney Disease With Heart Failure And Stage 1 To 4 Chronic Kidney Disease Or Unspecified Chronic Kidney Disease (HCC) 11/22/2023 Hyperlipidemia On Treatment 11/22/2023 Atrial Fibrillation Paroxysmal (HCC) 11/22/2023 Monitoring For Therapeutic Drug Therapy 11/22/2023 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 11/22/2023 Hypertensive Heart And Chronic Kidney Disease With Heart Failure And Stage 1 To 4 Chronic Kidney Disease Or Unspecified Chronic Kidney Disease (HCC) 12/03/2023 Hyperlipidemia On Treatment 12/03/2023 Atrial Fibrillation Paroxysmal (HCC) 12/03/2023 Monitoring For Therapeutic Drug Therapy 12/03/2023 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 12/03/2023 Hypertensive Heart And Chronic Kidney Disease With Heart Failure And Stage 1 To 4 Chronic Kidney Disease Or Unspecified Chronic Kidney Disease (HCC) 12/03/2023 Hyperlipidemia On Treatment 12/03/2023 Atrial Fibrillation Paroxysmal (HCC) 12/03/2023 Monitoring For Therapeutic Drug Therapy 12/03/2023 Longterm (Current) Anticoagulant Treatment 12/03/2023 Atrial Fibrillation Paroxysmal (HCC) 12/06/2023 Atrial Fibrillation Paroxysmal (HCC) 12/13/2023 Hypertensive Heart And Chronic Kidney Disease With Heart Failure And Stage 1 To 4 Chronic Kidney Disease Or Unspecified Chronic Kidney Disease (HCC) 12/14/2023 Hyperlipidemia On Treatment 12/14/2023 Atrial Fibrillation Paroxysmal (HCC) 12/14/2023 Monitoring For Therapeutic Drug Therapy 12/14/2023 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 12/14/2023 Hypertensive Heart And Chronic Kidney Disease With Heart Failure And Stage 1 To 4 Chronic Kidney Disease Or Unspecified Chronic Kidney Disease (HCC) 12/15/2023 Hyperlipidemia On Treatment 12/15/2023 Atrial Fibrillation Paroxysmal (HCC) 12/15/2023 Monitoring For Therapeutic Drug Therapy 12/15/2023 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 12/15/2023 Atrial Fibrillation Paroxysmal (HCC) 12/15/2023 Hypertensive Heart And Chronic Kidney Disease With Heart Failure And Stage 1 To 4 Chronic Kidney Disease Or Unspecified Chronic Kidney Disease (HCC) 12/17/2023 Hyperlipidemia On Treatment 12/17/2023 Atrial Fibrillation Paroxysmal (HCC) 12/17/2023 Monitoring For Therapeutic Drug Therapy 12/17/2023 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 12/17/2023 Hypertensive Heart And Chronic Kidney Disease With Heart Failure And Stage 1 To 4 Chronic Kidney Disease Or Unspecified Chronic Kidney Disease (HCC) 12/20/2023 Hyperlipidemia On Treatment 12/20/2023 Atrial Fibrillation Paroxysmal (HCC) 12/20/2023 Monitoring For Therapeutic Drug Therapy 12/20/2023 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 12/20/2023 Hypertensive Heart And Chronic Kidney Disease With Heart Failure And Stage 1 To 4 Chronic Kidney Disease Or Unspecified Chronic Kidney Disease (HCC) 12/20/2023 Hyperlipidemia On Treatment 12/20/2023 Atrial Fibrillation Paroxysmal (HCC) 12/20/2023 Monitoring For Therapeutic Drug Therapy 12/20/2023 Otr [employer] (Current) Anticoagulant Treatment 12/20/2023 Hypertensive Heart And Chronic Kidney Disease With Heart Failure And Stage 1 To 4 Chronic Kidney Disease Or Unspecified Chronic Kidney Disease (HCC) 12/24/2023 Hyperlipidemia On Treatment 12/24/2023 Atrial Fibrillation Paroxysmal (HCC) 12/24/2023 Monitoring For Therapeutic Drug Therapy 12/24/2023 Otr [employer] (Current) Anticoagulant Treatment 12/24/2023 Hypertensive Heart And Chronic Kidney Disease With Heart Failure And Stage 1 To 4 Chronic Kidney Disease Or Unspecified Chronic Kidney Disease (HCC) 12/24/2023 Hyperlipidemia On Treatment 12/24/2023 Atrial Fibrillation Paroxysmal (HCC) 12/24/2023 Monitoring For Therapeutic Drug Therapy 12/24/2023 Longterm (Current) Anticoagulant Treatment 12/24/2023 Hypertensive Heart And [...] 12/28/2023 Monitoring For Therapeutic Drug Therapy 12/28/2023 Longterm (Current) Anticoagulant Treatment 12/28/2023 Atrial Fibrillation Paroxysmal [...] 12/29/2023 Monitoring For Therapeutic Drug Therapy 12/29/2023 Longterm (Current) Anticoagulant Treatment 12/29/2023 Hypertensive Heart And Chronic Kidney Disease With Heart Failure And Stage 1 To 4 Chronic Kidney Disease Or Unspecified Chronic Kidney Disease (HCC) 01/06/2024 Hyperlipidemia On Treatment 01/06/2024 Atrial Fibrillation Paroxysmal (HCC) 01/06/2024 Monitoring For Therapeutic Drug Therapy 01/06/2024 Otr [employer] (Current) Anticoagulant Treatment 01/06/2024 Hypertensive Heart And Chronic Kidney Disease With Heart Failure And Stage 1 To 4 Chronic Kidney Disease Or Unspecified Chronic Kidney Disease (HCC) 01/06/2024 Hyperlipidemia On Treatment 01/06/2024 Atrial Fibrillation Paroxysmal (HCC) 01/06/2024 Monitoring For Therapeutic Drug Therapy 01/06/2024 Longterm (Current) Anticoagulant Treatment 01/06/2024 Hypertensive Heart And [...] 01/13/2024 Monitoring For Therapeutic Drug Therapy 01/13/2024 Otr [employer] (Current) Anticoagulant Treatment 01/13/2024 Hypertensive Heart And Chronic Kidney Disease With Heart Failure And Stage 1 To 4 Chronic Kidney Disease Or Unspecified Chronic Kidney Disease (HCC) 01/13/2024 Hyperlipidemia On Treatment 01/13/2024 Atrial Fibrillation Paroxysmal (HCC) 01/13/2024 Monitoring For Therapeutic Drug Therapy 01/13/2024 Longterm (Current) Anticoagulant Treatment 01/13/2024 Hypertensive Heart And Chronic Kidney Disease With Heart Failure And Stage 1 To 4 Chronic Kidney Disease Or Unspecified Chronic Kidney Disease (HCC) 01/27/2024 Hyperlipidemia On Treatment 01/27/2024 Atrial Fibrillation Paroxysmal (HCC) 01/27/2024 Monitoring For Therapeutic Drug Therapy 01/27/2024 Otr [employer] (Current) Anticoagulant Treatment 01/27/2024 Hypertensive Heart And Chronic Kidney Disease With Heart Failure And Stage 1 To 4 Chronic Kidney Disease Or Unspecified Chronic Kidney Disease (HCC) 01/27/2024 Hyperlipidemia On Treatment 01/27/2024 Atrial Fibrillation Paroxysmal (HCC) 01/27/2024 Monitoring For Therapeutic Drug Therapy 01/27/2024 Otr [employer] (Current) Anticoagulant Treatment 01/27/2024 Hypertensive Heart And Chronic Kidney Disease With Heart Failure And Stage 1 To 4 Chronic Kidney Disease Or Unspecified Chronic Kidney Disease (HCC) 01/31/2024 Hyperlipidemia On Treatment 01/31/2024 Atrial Fibrillation Paroxysmal (HCC) 01/31/2024 Monitoring For Therapeutic Drug Therapy 01/31/2024 Otr [employer] (Current) Anticoagulant Treatment 01/31/2024 Hypertensive Heart And Chronic Kidney Disease With Heart Failure And Stage 1 To 4 Chronic Kidney Disease Or Unspecified Chronic Kidney Disease (HCC) 01/31/2024 Hyperlipidemia On Treatment 01/31/2024 Atrial Fibrillation Paroxysmal (HCC) 01/31/2024 Monitoring For Therapeutic Drug Therapy 01/31/2024 Otr [employer] (Current) Anticoagulant Treatment 01/31/2024 Hypertensive Heart And Chronic Kidney Disease With Heart Failure And Stage 1 To 4 Chronic Kidney Disease Or Unspecified Chronic Kidney Disease (HCC) 02/10/2024 Hyperlipidemia On Treatment 02/10/2024 Atrial Fibrillation Paroxysmal (HCC) 02/10/2024 Monitoring For Therapeutic Drug Therapy 02/10/2024 Longterm (Current) Anticoagulant Treatment 02/10/2024 Hypertensive Heart And Chronic Kidney Disease With Heart Failure And Stage 1 To 4 Chronic Kidney Disease Or Unspecified Chronic Kidney Disease (HCC) 02/10/2024 Hyperlipidemia On Treatment 02/10/2024 Atrial Fibrillation Paroxysmal (HCC) 02/10/2024 Monitoring For Therapeutic Drug Therapy 02/10/2024 Otr [employer] (Current) Anticoagulant Treatment 02/10/2024 Hypertensive Heart And [...] 02/18/2024 Monitoring For Therapeutic Drug Therapy 02/18/2024 Longterm (Current) Anticoagulant Treatment 02/18/2024 Hypertensive Heart And Chronic Kidney Disease With Heart Failure And Stage 1 To 4 Chronic Kidney Disease Or Unspecified Chronic Kidney Disease (HCC) 02/18/2024 Hyperlipidemia On Treatment 02/18/2024 Atrial Fibrillation Paroxysmal (HCC) 02/18/2024 Monitoring For Therapeutic Drug Therapy 02/18/2024 Otr [employer] (Current) Anticoagulant Treatment 02/18/2024 Hypertensive Heart And Chronic Kidney Disease With Heart Failure And Stage 1 To 4 Chronic Kidney Disease Or Unspecified Chronic Kidney Disease (HCC) 02/24/2024 Hyperlipidemia On Treatment 02/24/2024 Atrial Fibrillation Paroxysmal (HCC) 02/24/2024 Monitoring For Therapeutic Drug Therapy 02/24/2024 Otr [employer] (Current) Anticoagulant Treatment 02/24/2024 Atrial Fibrillation Paroxysmal (HCC) 02/24/2024 Monitoring For Therapeutic Drug Therapy 02/24/2024 Otr [employer] (Current) Anticoagulant Treatment 02/24/2024 Hypertensive Heart And Chronic Kidney Disease With Heart Failure And Stage 1 To 4 Chronic Kidney Disease Or Unspecified Chronic Kidney Disease (HCC) 02/28/2024 Atrial Fibrillation Paroxysmal (HCC) 03/02/2024 Monitoring For Therapeutic Drug Therapy 03/02/2024 Otr [employer] (Current) Anticoagulant Treatment 03/02/2024 Hypertensive Heart And Chronic Kidney Disease With Heart Failure And Stage 1 To 4 Chronic Kidney Disease Or Unspecified Chronic Kidney Disease (HCC) 03/03/2024 Hyperlipidemia On Treatment 03/03/2024 Atrial Fibrillation Paroxysmal (HCC) 03/03/2024 Monitoring For Therapeutic Drug Therapy 03/03/2024 Longterm (Current) Anticoagulant Treatment 03/03/2024 Hypertensive Heart And Chronic Kidney Disease With Heart Failure And Stage 1 To 4 Chronic Kidney Disease Or Unspecified Chronic Kidney Disease (HCC) 03/10/2024 Hyperlipidemia On Treatment 03/10/2024 Atrial Fibrillation Paroxysmal (HCC) 03/10/2024 Monitoring For Therapeutic Drug Therapy 03/10/2024 Longterm (Current) Anticoagulant Treatment 03/10/2024 Hypertensive Heart And Chronic Kidney Disease With Heart Failure And Stage 1 To 4 Chronic Kidney Disease Or Unspecified Chronic Kidney Disease (HCC) 03/13/2024 Hyperlipidemia On Treatment 03/13/2024 Atrial Fibrillation Paroxysmal (HCC) 03/13/2024 Monitoring For Therapeutic Drug Therapy 03/13/2024 Longterm (Current) Anticoagulant Treatment 03/13/2024 Hypertensive Heart And Chronic Kidney Disease With Heart Failure And Stage 1 To 4 Chronic Kidney Disease Or Unspecified Chronic Kidney Disease (HCC) 03/20/2024 Hyperlipidemia On Treatment 03/20/2024 Atrial Fibrillation Paroxysmal (HCC) 03/20/2024 Monitoring For Therapeutic Drug Therapy 03/20/2024 Otr [employer] (Current) Anticoagulant Treatment 03/20/2024 Hypertensive Heart And Chronic Kidney Disease With Heart Failure And Stage 1 To 4 Chronic Kidney Disease Or Unspecified Chronic Kidney Disease (HCC) 03/23/2024 Hyperlipidemia On Treatment 03/23/2024 Atrial Fibrillation Paroxysmal (HCC) 03/23/2024 Monitoring For Therapeutic Drug Therapy 03/23/2024 Longterm (Current) Anticoagulant Treatment 03/23/2024 Hypertensive Heart And Chronic Kidney Disease With Heart Failure And Stage 1 To 4 Chronic Kidney Disease Or Unspecified Chronic Kidney Disease (HCC) 03/30/2024 Hyperlipidemia On Treatment 03/30/2024 Atrial Fibrillation Paroxysmal (HCC) 03/30/2024 Monitoring For Therapeutic Drug Therapy 03/30/2024 Otr [employer] (Current) Anticoagulant Treatment 03/30/2024 Hypertensive Heart And Chronic Kidney Disease With Heart Failure And Stage 1 To 4 Chronic Kidney Disease Or Unspecified Chronic Kidney Disease (HCC) 03/30/2024 Hyperlipidemia On Treatment 03/30/2024 Atrial Fibrillation Paroxysmal (HCC) 03/30/2024 Monitoring For Therapeutic Drug Therapy 03/30/2024 Otr [employer] (Current) Anticoagulant Treatment 03/30/2024 Hypertensive Heart And Chronic Kidney Disease With Heart Failure And Stage 1 To 4 Chronic Kidney Disease Or Unspecified Chronic Kidney Disease (HCC) 04/10/2024 Hyperlipidemia On Treatment 04/10/2024 Atrial Fibrillation Paroxysmal (HCC) 04/10/2024 Monitoring For Therapeutic Drug Therapy 04/10/2024 Longterm (Current) Anticoagulant Treatment 04/10/2024 Hypertensive Heart And Chronic Kidney Disease With Heart Failure And Stage 1 To 4 Chronic Kidney Disease Or Unspecified Chronic Kidney Disease (HCC) 04/10/2024 Hyperlipidemia On Treatment 04/10/2024 Atrial Fibrillation Paroxysmal (HCC) 04/10/2024 Monitoring For Therapeutic Drug Therapy 04/10/2024 Longterm (Current) Anticoagulant Treatment 04/10/2024 Hypertensive Heart And Chronic Kidney Disease With Heart Failure And Stage 1 To 4 Chronic Kidney Disease Or Unspecified Chronic Kidney Disease (HCC) 04/24/2024 Hyperlipidemia On Treatment 04/24/2024 Atrial Fibrillation Paroxysmal (HCC) 04/24/2024 Monitoring For Therapeutic Drug Therapy 04/24/2024 Longterm (Current) Anticoagulant Treatment 04/24/2024 Hypertensive Heart And Chronic Kidney Disease With Heart Failure And Stage 1 To 4 Chronic Kidney Disease Or Unspecified Chronic Kidney Disease (HCC) 04/24/2024 Hyperlipidemia On Treatment 04/24/2024 Atrial Fibrillation Paroxysmal (HCC) 04/24/2024 Monitoring For Therapeutic Drug Therapy 04/24/2024 Longterm (Current) Anticoagulant Treatment 04/24/2024 Atrial Fibrillation Paroxysmal (HCC) 04/28/2024 Monitoring For Therapeutic Drug Therapy 04/28/2024 Otr [employer] (Current) Anticoagulant Treatment 04/28/2024 Hypertensive Heart And Chronic Kidney Disease With Heart Failure And Stage 1 To 4 Chronic Kidney Disease Or Unspecified Chronic Kidney Disease (HCC) 04/28/2024 Hyperlipidemia On Treatment 04/28/2024 Atrial Fibrillation Paroxysmal (HCC) 04/28/2024 Monitoring For Therapeutic Drug Therapy 04/28/2024 Longterm (Current) Anticoagulant Treatment 04/28/2024 Hypertensive Heart And Chronic Kidney Disease With Heart Failure And Stage 1 To 4 Chronic Kidney Disease Or Unspecified Chronic Kidney Disease (HCC) 05/09/2024 Hyperlipidemia On Treatment 05/09/2024 Atrial Fibrillation Paroxysmal (HCC) 05/09/2024 Monitoring For Therapeutic Drug Therapy 05/09/2024 Longterm (Current) Anticoagulant Treatment 05/09/2024 Hypertensive Heart And Chronic Kidney Disease With Heart Failure And Stage 1 To 4 Chronic Kidney Disease Or Unspecified Chronic Kidney Disease (HCC) 05/09/2024 Hyperlipidemia On Treatment 05/09/2024 Atrial Fibrillation Paroxysmal (HCC) 05/09/2024 Monitoring For Therapeutic Drug Therapy 05/09/2024 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 05/09/2024 Hypertensive Heart And Chronic Kidney Disease With Heart Failure And Stage 1 To 4 Chronic Kidney Disease Or Unspecified Chronic Kidney Disease (HCC) 05/15/2024 Chronic Kidney Disease (CKD), Stage 3a Glomerular Filtration Rate (GFR) 45 To 59 (HCC) 05/15/2024 Atrial Fibrillation Paroxysmal (HCC) 05/15/2024 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 05/15/2024 Hyperlipidemia On Treatment 05/15/2024 Hypertensive Heart And Chronic Kidney Disease With Heart Failure And Stage 1 To 4 Chronic Kidney Disease Or Unspecified Chronic Kidney Disease (HCC) 05/15/2024 Atrial Fibrillation Paroxysmal (HCC) 05/15/2024 Monitoring For Therapeutic Drug Therapy 05/15/2024 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 05/15/2024 Hypertensive Heart And Chronic Kidney Disease With Heart Failure And Stage 1 To 4 Chronic Kidney Disease Or Unspecified Chronic Kidney Disease (HCC) 05/16/2024 Hyperlipidemia On Treatment 05/16/2024 Atrial Fibrillation Paroxysmal (HCC) 05/16/2024 Monitoring For Therapeutic Drug Therapy 05/16/2024 Longterm (Current) Anticoagulant Treatment 05/16/2024 Hypertensive Heart And Chronic Kidney Disease With Heart Failure And Stage 1 To 4 Chronic Kidney Disease Or Unspecified Chronic Kidney Disease (HCC) 05/23/2024 Hyperlipidemia On Treatment 05/23/2024 Atrial Fibrillation Paroxysmal (HCC) 05/23/2024 Monitoring For Therapeutic Drug Therapy 05/23/2024 Longterm (Current) Anticoagulant Treatment 05/23/2024 Hypertensive Heart And Chronic Kidney Disease With Heart Failure And Stage 1 To 4 Chronic Kidney Disease Or Unspecified Chronic Kidney Disease (HCC) 05/23/2024 Hyperlipidemia On Treatment 05/23/2024 Atrial Fibrillation Paroxysmal (HCC) 05/23/2024 Monitoring For Therapeutic Drug Therapy 05/23/2024 Longterm (Current) Anticoagulant Treatment 05/23/2024 Hypertensive Heart And Chronic Kidney Disease With Heart Failure And Stage 1 To 4 Chronic Kidney Disease Or Unspecified Chronic Kidney Disease (HCC) 05/24/2024 Hyperlipidemia On Treatment 05/24/2024 Atrial Fibrillation Paroxysmal (HCC) 05/24/2024 Monitoring For Therapeutic Drug Therapy 05/24/2024 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 05/24/2024 Hypertensive Heart And Chronic Kidney Disease With Heart Failure And Stage 1 To 4 Chronic Kidney Disease Or Unspecified Chronic Kidney Disease (HCC) 05/25/2024 Hyperlipidemia On Treatment 05/25/2024 Atrial Fibrillation Paroxysmal (HCC) 05/25/2024 Monitoring For Therapeutic Drug Therapy 05/25/2024 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 05/25/2024 Hypertensive Heart And Chronic Kidney Disease With Heart Failure And Stage 1 To 4 Chronic Kidney Disease Or Unspecified Chronic Kidney Disease (HCC) 05/25/2024 Hyperlipidemia On Treatment 05/25/2024 Atrial Fibrillation Paroxysmal (HCC) 05/25/2024 Monitoring For Therapeutic Drug Therapy 05/25/2024 Longterm (Current) Anticoagulant Treatment 05/25/2024 Hypertensive Heart And Chronic Kidney Disease With Heart Failure And Stage 1 To 4 Chronic Kidney Disease Or Unspecified Chronic Kidney Disease (HCC) 06/06/2024 Hyperlipidemia On Treatment 06/06/2024 Atrial Fibrillation Paroxysmal (HCC) 06/06/2024 Monitoring For Therapeutic Drug Therapy 06/06/2024 Longterm (Current) Anticoagulant Treatment 06/06/2024 Hypertensive Heart And Chronic Kidney Disease With Heart Failure And Stage 1 To 4 Chronic Kidney Disease Or Unspecified Chronic Kidney Disease (HCC) 06/06/2024 Hyperlipidemia On Treatment 06/06/2024 Atrial Fibrillation Paroxysmal (HCC) 06/06/2024 Monitoring For Therapeutic Drug Therapy 06/06/2024 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 [address], [place] [phone] PCP - General Internal Medicine 08/12/22
--- OUTSIDE RECORDS SUMMARY | 2024-06-06 17:40 | XMS_ITS | Clinical Summary ---
Author Organization [facility] Address [address] [place] [address] Care Team Providers Care Ship Worker Name Role Phone None Primary Care Provider Harvinder Peterson MD Unavailable [phone] Allergies Active Allergy Reactions Criticality Noted Date [...] on file Legal Sex Female 5:26 AM SAND ANALYST Gender Identity Not on file Sexual Orientation [...] MR HUMANA CHOICE PPO MR Care Teams Ship Worker Relationship Specialty Start Date End Date None . PCP - General 08/01/14 Harvinder Pike MD [address] [place] [address] 08/01/14
--- OUTSIDE RECORDS SUMMARY | 2024-06-06 17:40 | XMS_ITS | Encounter Summary ---
Author Organization [facility] Address [address] [place] [address] Care Team Providers Care Shove Up Name Role Phone Patrick Erickson D.O. Primary Care Provider [phone] Reason for Visit * Outpatient (Routine) - Authorized Specialty Diagnoses / Procedures Referred By Contkarri t Referred To Contact Anticoagulation Patrick Erickson D.O. [address] [place] [address] Phone: tel: fax: [facility] Region Referral ID Status Reason Start Date Expiration Date V isits Requested Visits Authorized [id number] Authorized 03/03/2024 09/02/2025 300 300 Encounter Details Date Type Department Care Team (Latest Contact Info) Description 04/24/2024 9:30 AM CORRESPONDENCE TRANSCRIBER Anticoagulation Visit Department of Anticoagulation in [place], [place] [address] [place] [address] Patrick Erickson D.O. 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 - 04/24/2024 9:30 AM CORRESPONDENCE TRANSCRIBER Your next INR will be WednesdayApril 28. You will need to call the Anticoagulation Program at the time of your scheduled nurse visit or you can complete the Anticoagulation Pre-Visit Questionnaireand if no additional information is needed, your dosing can be provided via your Patient portal. To reschedule your appointment or for questions about your warfarin, please call Primary Care Anticoagulation Program at [phone] from 7:30 am to 4:30 pm. Wednesday-Wednesday [...] if you start any herbal or other [id number] product (check with your doctor, a nurse, or pharmacist). If you change your diet significantly. If you decide to stop or start using tobacco or alcohol. If you notice unusual bruising or bleeding. If you notice dark, tarry, or bright red stools or blood in your urine. If you have a painful and swollen calf. ESPONDENCE TRANSCRIBER documented in this encounter Plan of Treatment Upcoming Encounters Date Type Department Care Team (Latest Contact Info) Description 06/09/2024 11:20 AM CDT Appointment Department of Laboratory Medicine in [place], [place] [address] [place] [address] Patrick Erickson D.O. [address] [place] [address] 06/09/2024 12:00 PM CDT Anticoagulation Visit Department of Anticoagulation in [place], [place] [address] [place] [address] Patrick Erickson D.O. [address] [place] [address] documented as of this encounter Results * INR Reflex, POCT, Blood (04/28/2024 2:10 PM CORRESPONDENCE TRANSCRIBER) [facility] INR Reflex, POCT, B 1.9 04/28/2024 2:10 PM CORRESPONDENCE TRANSCRIBER [id number] Comment: ----ADDITIONAL INFORMATION---- Standard intensity warfarin therapeutic range: 2.0 to 3.0 High intensity warfarin therapeutic range: 2.5 to 3.5 Blood (Blood, Capillary) 04/28/2024 2:10 PM CORRESPONDENCE TRANSCRIBER 04/28/2024 2:10 PM CORRESPONDENCE TRANSCRIBER Patrick Erickson D.O. LAB POCT ORDERABLES - CARLOS ENRIQUE CE Final Result [facility] [address] [place] [address], [facility] FB60 [facility] in [address] [address] documented in this encounter Visit Diagnoses Diagnosis [...] Depression Total Score: 9 02/23/20 7:41 PM CORRESPONDENCE TRANSCRIBER documented as of this encounter Care Teams Shove Up Relationship Specialty Start Date End Date Patrick Erickson D.O. [address] [place] [address] PCP - General Internal Medicine 08/12/22 documented as of this encounter
--- OUTSIDE RECORDS SUMMARY | 2024-06-06 17:40 | XMS_ITS | Encounter Summary ---
Author Organization [facility] Address [address] [place] [address] Care Team Providers Care Tubing Drier Name Role Phone Patrick Erickson D.O. Primary Care Provider [phone] Encounter Details Date Type Department Care Team (Latest Contact Info) Description 04/24/2024 8:50 AM CLINICAL QUALITY MANAGER - 04/24/2024 11:59 PM [facility] Hospital Encounter Department of Laboratory Medicine in [place] [address] [place] [phone] Patrick Erickson D.O. [address] [place] [phone] Hypertensive Heart And Chronic Kidney Disease With Heart Failure And Stage 1 To 4 Chronic Kidney Disease Or Unspecified Chronic Kidney Disease (HCC); Hyperlipidemia On Treatment; Atrial Fibrillation Paroxysmal (HCC); Monitoring For Therapeutic Drug Therapy; [place] (Current) Anticoagulant Treatment Discharge Disposition: Home or Self Care Social History Tobacco Use Types Packs/Day Years Used Date Smoking Tobacco: Never Smokeless Tobacco: Never Alcohol Use Standard Drinks/Week Comments No 0 (1 standard drink = 0.6 oz pur e alcohol) [facility] Utilities Answer Date Recorded In the past 12 months has e electric, gas, oil, or water [employer] [employer] threatened to shut off services in your [...] PHQ-2 Score 0 04/27/2023 [facility] [place] of Occupat ional Health - Occupational [...] your living situation today? I have a [facility] place to live 07/01/2023 Education Answer Date Recorded What is the highest level of school you have completed or the highest degree you have received? Associate degree: occupational, technical, or vocational program 05/30/2022 Comments No Sex and Gender Information Value Date Recorded Sex Assigned at Female 12/19/2021 3:32 AM CDT Legal Sex Female 9:57 PM CLINICAL QUALITY MANAGER Gender Identity Female 09/24/2022 9:59 PM [...] needed for muscle spasms. 30 tablet 06/26/2021 [id number] 100 mg-150 mg- 50 mg-150 mg capsule [...] CDT Appointment Department of Laboratory Medicine in [place], [place] [address] [place] [phone] Patrick Erickson D.O. [address] [place] [address] 06/09/2024 12:00 PM CDT Anticoagulation Visit Department of Anticoagulation in [place], [place] [address] [place] [address] Patrick Erickson D.O. [address] [place] [address] documented as of this encounter Procedures Procedure Name Priority Date/Time Associated Diagnosis Comments INR REFLEX, POCT, B Routine 04/24/2024 9:22 AM CLINICAL QUALITY MANAGER Hypertensive Heart And Chronic Kidney Disease With Heart Failure And Stage 1 To 4 Chronic Kidney Disease Or Unspecified Chronic Kidney Disease (HCC) Hyperlipidemia On Treatment Atrial Fibrillation Paroxysmal (HCC) Monitoring For Therapeutic Drug Therapy [place] (Current) Anticoagulant Treatment documented in this encounter Results * INR Reflex, POCT, Blood (04/24/2024 9:22 AM CLINICAL QUALITY MANAGER) INR Reflex, POCT, B 4.2 04/24/2024 9:21 AM CLINICAL QUALITY MANAGER [id number] Comment: ----ADDITIONAL INFORMATION---- Standard intensity warfarin therapeutic range: 2.0 to 3.0 High intensity warfarin therapeutic range: 2.5 to 3.5 Blood (Blood, Capillary) 04/24/2024 9:22 AM CLINICAL QUALITY MANAGER 04/24/2024 9:21 AM CLINICAL QUALITY MANAGER Patrick Erickson D.O. LAB POCT ORDERABLES - CARLOS ENRIQUE CE Final Result [facility] [address] [place] [address], [facility] FB60 [facility] in [place] [address] [place] [address] documented in this encounter Visit Diagnoses Diagnosis Hypertensive Heart And Chronic Kidney Disease With Heart Failure And Stage 1 To 4 Chronic Kidney Disease Or Unspecified Chronic Kidney Disease (HCC) Hyperlipidemia On Treatment Atrial Fibrillation Paroxysmal (HCC) Monitoring For Therapeutic Drug Therapy [place] (Current) Anticoagulant Treatment documented in this encounter Additional Health Concerns Assessment Noted Time PHQ-9 Depression Total Score: 9 02/23/20 23 7:41 PM CLINICAL QUALITY MANAGER documented as of this encounter Care Teams Tubing Drier Relationship Specialty Start Date End Date Patrick Erickson D.O. [address] [place] [phone] PCP - General Internal Medicine 08/12/22 documented as of this encounter
[2024-06-06 17:49] VITALS: BP 186/86; PULSE 53; RESP 18; TEMP 36.6; O2SAT 100
[2024-06-06] MEDS: PHYTONADIONE (VIT K1) 5 MG TABLET PO (17:54)
[2024-06-06 18:44] VITALS: BP 179/91; PULSE 53; RESP 18; TEMP 36.6; O2SAT 99; BMI 30.6
[2024-06-06 19:00] VITALS: BP 180/85; PULSE 56; RESP 16; TEMP 36.6; O2SAT 97
--- NOTE | 2024-06-06 19:34 | P.IMHP_ITS ---
Assessment and Plan Assessment and plan (1) Closed fracture of left hip: Problem comment: - Ortho consulted from ER. Anticipate surgery tomorrow - NPO after midnight - Supratherapeutic INR and fracture of large bone, expect she will have potentially significant blood loss: Give IVF overnight, recheck Hgb in am, discussed potential need for PRBC tranfusion. - Reverse coumadin, vit K given in ER, recheck INR in am - METs about 4 at baseline, able to do some walking, but had to use scooter on excursions for cruise. I've ordered EKG for w/u for surgery due to h/o afib. CXR reviewed, results above. If EKG okay, no further w/u before surgery. Status: Acute (2) Paroxysmal atrial fibrillation: Problem comment: - chronic - Obtain EKG - reversing warfarin for surgery as above, restart post op, goal INR 2-3 - rate slow, in the 50s, she is on coreg, patient notes chronic bradycardia, asymptomatic, monitor on tele Status: Chronic (3) Chronic kidney disease, stage 3: Problem comment: - stable, monitor Status: Chronic (4) Hypertension: Problem comment: - BP elevated. Continue lisinopril, furosemide, nifedipine, Coreg Status: Chronic (5) Heart failure: Problem comment: - Echocardiogram obtained in May 2022 shows mild generalized hypokinesis with an ejection fraction of 48%. No significant valvular disease. Sinus bradycardia noted. - patient states she had a repeat echo just a few weeks ago at [facility] in [place], but I am unable to access these records. - no recent symptoms of heart failure, giving gentle IV fluids overnight due to long bone fracture with supratherapeutic INR, monitor for volume overload Status: Chronic (6) Supratherapeutic INR: Problem comment: As above Status: Acute (7) Chronic anticoagulation: Problem comment: For atrial fibrillation, goal INR 2-3 Status: Chronic (8) Bradycardia: Problem comment: Likely due to carvedilol. Reduced dose to 6.25 b.i.d. in 2022 Status: Chronic Hospitalist- H&P: HPI History of Present Illness Time Seen by Provider: 19:34 Date Seen: 06/06/24 Chief complaint: fall Narrative: Herminia Alberto is a 78 year old female with a h/o afib on warfarin, CKD3, hyperlipidemia, dilated cardiomyopathy, hypertension who was in her usual state of health, just coming home from a cruise when she tripped and fell. She got her suitcase out of the car and was pulling across the street when the wheel got stuck on something in the road and she tripped and fell trying to get it unstuck. She denies hitting her head, but did hit her left elbow and this is swelling. She could not get up after the fall. Several neighbors and the [facility] warehouse delivery driver saw what happened and immediately to help her. She is on warfarin for AFib and had an INR drawn this morning which was 6.8. In the ER today this had come down to 4.5. She also had a fall in November when the bottom of her shoe caught on the floor and she fell into a display case. He had a left midshaft humerus fracture as a result of this for which she had a ORIF by Dr. Oneal. Review of Systems Status of ROS: Reports: 10 or more systems reviewed and unremarkable except as noted in History and below [facility] Medical History (Updated 06/06/24 @ 21:58 by Carly Coronado MD) Chronic anticoagulation ?Z79.01 - shelter (current) use of anticoagulants (ICD-10) Right anterior knee pain ?M25.561 - Pain in right knee (ICD-10) Closed left humeral fracture ?S42.302A - Unspecified fracture of shaft of humerus, left arm, initial encounter for closed fracture (ICD-10) Lumbar radiculopathy ?M54.16 - Radiculopathy, lumbar region (ICD-10) Migraine ?G43.909 - Migraine, unspecified, not intractable, without status migrainosus (ICD-10) Paroxysmal atrial fibrillation ?I48.0 - Paroxysmal atrial fibrillation (ICD-10) Hypertension ?I10 - Essential (primary) hypertension (ICD-10) Chronic kidney disease, stage 3 ?N18.30 - Chronic kidney disease, stage 3 unspecified (ICD-10) Heart failure ?I50.9 - Heart failure, unspecified (ICD-10) Altered mental status ?R41.82 - Altered mental status, unspecified (ICD-10) Surgical History History of open reduction and internal fixation (ORIF) procedure (12/08/23) ?Z98.890 - Other specified postprocedural states (ICD-10) History of appendectomy ?Z90.49 - Acquired absence of other specified parts of digestive tract (ICD- 10) History of hysterectomy ?Z90.710 - Acquired absence of both cervix and uterus (ICD-10) History of tonsillectomy ?Z90.89 - Acquired absence of other organs (ICD-10) Family History Mother Diabetes Cardiovascular disease Brother Dementia Father Abdominal aortic aneurysm Social History (Updated 06/06/24 @ 21:41 by Carly Coronado MD) Narrative: Patient lives at the [facility] in [place]. She is in an independent apartment. Her lived there and is in assisted living due to a remote history of stroke. She reports her independent living has been going well for her. She does not smoke. She does not drink alcohol. She does not use recreational drugs. Her son [place] and her daughter are her healthcare power of real estate attorney. Her code status is DNI. She goes to [facility] in [place] for primary care. 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 on 05/07/24 What is your current living situation?: I presently have a place to live Problems where you live: no known problems Problems where you live details: n/a In the past 12 months, utilities in danger of being shut off: no In past 12 months, lack of transportation kept you from medical appts, meetings, work, or getting things needed for daily living: no In the past 12 mos, have been you worried that your food would run out before you had money to buy more?: never true In the past 12 mos, the food you bought just didn't last and you didn't have money to buy more?: never true Highest level of school completed/degree received: Associate degree: occupational, technical, vocational program Smoking Status: Never smoker Do you use any of these nicotine containing products: None Second hand tobacco smoke exposure: No How often do you have a drink containing alcohol: never How often do you have six or more drinks on one occasion: Never AUDIT-C Alcohol total score: 0 Non-prescribed substance use: denies use Caffeine: Yes Are you now , , , , never or living with a partner: Social isolation score (0-1 are the most socially isolated patients): 0 How often does anyone, including family, friends and others, physically hurt you : never How often does anyone, including family, friends and others, insult or talk down to you: never How often does anyone, including family, friends and others, threaten you with harm: never How often does anyone, including family, friends and others, scream or curse at you: never Are you using contraception or practicing any form of control: No service: No Meds Home Medications and Allergies Home Medications ?Medication ?Instructions ?Recorded ?Confirmed ?Type atorvastatin 10 mg tablet 10 mg PO DAILY 08/01/22 06/06/24 History furosemide 20 mg tablet 20 mg PO DAILY 08/01/22 06/06/24 History lisinopril 40 mg tablet 40 mg PO DAILY 08/01/22 06/06/24 History warfarin 5 mg tablet 7.5 mg PO DAILY 08/01/22 06/06/24 History cholecalciferol (vitamin D3) PO 12/02/23 05/19/24 History cyanocobalamin (vitamin B-12) PO 12/02/23 05/19/24 History cyclobenzaprine 5 mg tablet 5 mg PO QHS 12/02/23 06/06/24 History sumatriptan succinate 50 mg tablet See Rx Instructions PO .COMPLEX 12/02/23 06/06/24 History nifedipine 30 mg tablet,extended 30 mg PO HS 06/06/24 06/06/24 History release Allergies Allergy/AdvReac Type Severity Reaction Status Date / Time codeine Allergy Verified 06/06/24 15:56 Exam Narrative: Exam Narrative: General: No acute distress. Awake alert oriented x3. HEENT: Normocephalic atraumatic, pupils equally round and reactive to light and accommodation. Oropharynx clear. Mucous membranes are moist. No JVD. Cardiovascular: Regular rate and rhythm. No murmurs, gallops, or rubs. Chest: No increased work of breathing. Clear to auscultation bilaterally. No crackles or wheezes. Abdomen: Bowel sounds present. Soft, nondistended, nontender. No hepatosplenomegaly or masses. Tenderness to palpation in the left groin. No ecchymosis. Extremities: Hematoma of the left elbow. No ecchymosis of the lower extremities. Left lower extremity is shortened and externally rotated. No edema, no cyanosis or clubbing. Skin: No jaundice, no pallor, bilateral nonblanching punctate rash of both anterior lower extremities. Const: Vital Signs, click to edit/add: Vital Signs - 24 hr 06/06/24 15:53 06/06/24 17:49 06/06/24 18:44 Temperature 97 F L 97.9 F 98 F Pulse Rate [Right Pulse Oximeter] 54 L 53 L 53 L Respiratory Rate 18 18 18 Blood Pressure [Ri ght Arm] 179/91 H Blood Pressure [Ri ght Upper Arm] 188/77 H 186/86 H Pulse Oximetry 97 100 99 Oxygen Delivery Me thod Room Air Room Air Room Air 06/06/24 18:44 Temperature Pulse Rate [Right Pulse Oximeter] Respiratory Rate 18 Blood Pressure [Ri ght Arm] Blood Pressure [Ri ght Upper Arm] Pulse Oximetry 99 Oxygen Delivery Me thod Room Air Hospitalist - H&P: Result Labs Labs: Short CBC 06/06/24 Range/Units 16:47 WBC 7.32 (4.50-11.00) K/uL Hgb 12.8 (12.0-16.0) gm/dL Hct 40.2 (33.0-51.0) % Plt Count 164 (140-440) K/uL BMP 06/06/24 16:47 Sodium 140 Potassium 3.8 Chloride 105 Carbon Dioxide 26 BUN 22 Creatinine 1.1 Glucose 140 H Calcium 9.1 Ordering Physician: Elgin Cobian D.O. Date of Service: 06/06/24 Procedure(s): XR chest 1V Accession Number(s): [id number] cc: Elgin Cobian D.O.; Anna Iniguez WATER INSPECTOR, CASH APPLICATIONS MANAGER, DNP~ For Patients: As a result of the 21st Century Cures Act, medical imaging exams and procedure reports are released immediately into your electronic medical record. You may view this report before your referring provider. If you have questions, please contact your health care provider. INDICATION: FALL. HEART FAILURE, COUGH. TECHNIQUE: Chest 1 view. COMPARISON: Chest radiographs dated 08/01/2022. FINDINGS: Unremarkable cardiomediastinal contours. Low lung volumes with mild diffuse interstitial prominence. Redemonstrated relatively nodular focus in the left lower lung measuring 0.9 cm, similar in size relative to prior. No evident new focal consolidation. No sign of pleural effusion. No pneumothorax. No acute osseous or soft tissue findings. IMPRESSION: 1. Low lung volumes with mild diffuse interstitial prominence, which may be artifactual, though could reflect mild pulmonary edema. 2. Redemonstrated left lower lung 0.9 cm nodular focus, which may reflect a calcific granuloma. While indeterminate by radiograph, the nearly 2-year stability is suggestive of benignity. Dictated by Braulio Alvarez MD @ 06/06/2024 4:45:31 PM (Electronically Signed) Ordering Physician: Elgin Cobian D.O. Date of Service: 06/06/24 Procedure(s): XR hip LT min 2V Accession Number(s): [id number] cc: Elgin Cobian D.O.; Anna Iniguez APRN, CASH APPLICATIONS MANAGER, DNP~ For Patients: As a result of the Cures Act, medical imaging exams and procedure reports are released immediately into your electronic medical record. You may view this report before your referring provider. If you have questions, please contact your health care provider. Indication: Fall Technique: Left hip 3 views Comparison: None Findings: Bones: Acute fracture of the left proximal femur, likely best characterized as an intertrochanteric fracture with moderate impaction and shortening. No dislocation. Joint spaces: Mild left hip joint space narrowing. Moderate osteitis pubis. Impression: Acute intertrochanteric fracture of the left proximal femur. Dictated by Braulio Alvarez MD @ 06/06/2024 4:37:20 PM (Electronically Signed)
[2024-06-06] MEDS: HYDROmorphone 0.5 mg/0.5 ml inj IVP ×2 (19:47→23:11)
[2024-06-06] MEDS: LACTATED RINGERS 1000 ML 1,000 ML 75 ML IV (20:58)
--- NOTE | 2024-06-06 21:48 | CRLHL7_ITS ---
For Patients: As a result of the Cures Act, medical imaging exams and procedure reports are released immediately into your electronic medical record. You may view this report before your referring provider. If you have questions, please contact your health care provider. Indication: Fall, left elbow hematoma, history of humerus fracture Technique: Two views of the left humerus Comparison: Left humerus radiographs performed 05/19/2024 Findings/Impression: Humerus internal fixation hardware noted. No acute fracture or malalignment appreciated. Dictated by Cheo Otoole MD @ 06/07/2024 12:25:21 AM (Electronically Signed)
--- NOTE | 2024-06-06 21:48 | CRLHL7_ITS ---
For Patients: As a result of the Cures Act, medical imaging exams and procedure reports are released immediately into your electronic medical record. You may view this report before your referring provider. If you have questions, please contact your health care provider. Indication: Fall, left elbow hematoma Technique: Three views of the left elbow Comparison: None Findings/Impression: Soft tissue swelling along the proximal forearm. No acute fracture, malalignment, or joint effusion appreciated. Dictated by Cheo Otoole MD @ 06/07/2024 12:24:44 AM (Electronically Signed)
[2024-06-06 23:00] VITALS: BP 142/88; PULSE 56; RESP 16; RESP 18; TEMP 36.9; O2SAT 97
[2024-06-06] MEDS: SODIUM CHLORIDE 0.9 % (FLUSH) 10 ML SYRINGE 5 ML IVF (23:12)
[2024-06-07] VITALS (8 sets, daily range): BP systolic 126–150; BP diastolic 69–83; PULSE 53–65; RESP 16–20; TEMP 36.8–37.1; O2SAT 83–95
[2024-06-07] MEDS: HYDROmorphone 0.5 mg/0.5 ml inj IVP ×7 (04:43→23:40)
[2024-06-07] MEDS: SODIUM CHLORIDE 0.9 % (FLUSH) 10 ML SYRINGE 5 ML IVF ×2 (04:43→19:51)
[2024-06-07 06:46] LABS: Basophils Absolute Auto 0.02 K/uL (0.00-0.30); Basophils Percent Auto 0.2 % (0.0-3.0); Eosinophils Absolute Auto 0.05 K/uL (0.00-0.50); Eosinophils Percent Auto 0.6 % (0.0-7.0); Hematocrit* 32.6 % (33.0-51.0); Hemoglobin* 10.6 gm/dL (12.0-16.0); Immature Granulocytes Abs Auto 0.03 K/uL (0.00-0.30); Immature Granulocytes Pct Auto 0.3 %; Lymphocytes Percent Auto 10.7 % (20-44); Mean Corpuscular HGB Conc 33 gm/dL (32-36); Mean Corpuscular Hemoglobin 29 pg (26-34); Mean Corpuscular Volume 89 fL (80-100); Monocytes Percent Auto 9.3 % (0.0-11.0); Neutrophils Percent Auto 78.9 % (42.0-72.0); Platelet Count* 126 K/uL (140-440); RDW Coefficient of Variation % 13.8 % (11.5-15.5); Red Blood Count* 3.66 m/uL (4.00-5.20); White Blood Count* 8.63 K/uL (4.50-11.00)
[2024-06-07 06:47] LABS: Slide Review Reflex No
--- NOTE | 2024-06-07 06:59 | PC.NURSE ---
The patient is pleasant and cooperative with cares this shift... upon initial assessment noted to have increased pain in her left hip PRN meds were given... L hip hematoma was noted to become larger later on this shift, no bruising noted on the outer thigh. NPO 0000 for surgery today, the patient voided a small amount @ 2300 and reported that she felt the urge intermittently throughout the the night.... bladder scanned for 404.... trial void that was unsuccessful. PRN straight cath was inserted and 550cc were obtained... foul and cloudy, UA sent. Call light within reach. L elbow hematoma as well from the fall. Elise JOLLY BSN
[2024-06-07 07:00] LABS: Appearance Urine Clear (Clear); Bilirubin Urine Negative (Negative); Blood Urine 1+ (Negative); Color Urine Yellow (Yellow); Glucose Urine Negative (Negative); Ketones Urine Negative (Negative); Leukocyte Esterase Urine 1+ (Negative); Nitrite Urine Positive (Negative); Protein Urine 1+ (Negative); Urobilinogen Urine 0.2 (0.2-1.0); pH Urine 6.5 (5.0-8.5)
[2024-06-07 07:02] LABS: Chloride* 103 mmol/L (96-114)
[2024-06-07 07:03] LABS: INR 3.77 (0.91-1.10); Potassium* 3.9 mmol/L (3.6-5.1); Prothrombin Time 38.6 Seconds; Sodium* 135 mmol/L (135-149)
[2024-06-07 07:05] LABS: Blood Urea Nitrogen* 19 mg/dL (7-30); Creatinine* 0.9 mg/dL (0.5-1.5); Estimated Glomerular Filt Rate 66 ml/min
[2024-06-07 07:06] LABS: Anion Gap 6 mEq/L (7-15); Calcium* 8.6 mg/dL (8.4-10.6); Carbon Dioxide* 26 mmol/L (20-32); Glucose* 130 mg/dL (60-115)
[2024-06-07 07:20] LABS: Bacteria Urine Many; WBC Urine >100 (0-5)
[2024-06-07] MEDS: PHYTONADIONE (VIT K1) 5 MG TABLET PO (08:13)
[2024-06-07] MEDS: carvediloL 6.25 MG TABLET PO ×2 (09:33→20:50)
[2024-06-07] MEDS: lisinopriL 20 MG TABLET 40 MG PO (09:33)
[2024-06-07] MEDS: LACTATED RINGERS 1000 ML 1,000 ML 75 ML IV ×2 (09:40→23:36)
--- NOTE | 2024-06-07 10:18 | NUTR.NU ---
BELKISN with verbal MD consult for diet education related to warfarin. Patient admitted s/p fall, resulting in left hip fracture requiring surgery. Currently waiting for surgery on INR result. Patient on warfarin before hip fracture. Current weight 189lb 6.033oz; height 5ft 6in; BMI 30.6 kg/m2. Per weight records weight has been stable recently. Current diet is NPO in anticipation for surgery. RDN visited with patient whom reports trying to avoid food high in vitamin k. She reports she isn't positive which foods she should avoid. RDN discussed with patient the recommendations of keeping a consistent intake of her the diet she normally includes. If her diet consists of including high-vitamin k foods daily, recommendations are to keep a consistent intake of these foods, same as if her diet usually does not include high-vitamin k foods recommendations are to stay consistent with this and not include vitamin k foods. Patient verbalized her understanding. Handout related to vitamin k and medications was provided to patient. She had no further questions or concerns at this time. RDN will continue to monitor and follow-up as needed.
--- NOTE | 2024-06-07 10:38 | PM.IMPN1 ---
Assessment and Plan Assessment and plan (1) Closed fracture of left hip: Problem comment: - Ortho consulted from ER. Anticipate surgery once INR goes down - NPO after midnight - Supratherapeutic INR and fracture of large bone, expect she will have potentially significant blood loss: Give IVF overnight, recheck Hgb in am, discussed potential need for PRBC tranfusion. - Reverse coumadin, vit K given in ER, recheck INR in am - METs about 4 at baseline, able to do some walking, but had to use scooter on excursions for cruise. I've ordered EKG for w/u for surgery due to h/o afib. CXR reviewed, results above. If EKG okay, no further w/u before surgery. - ordered vitamin K 5 mg on June 07 orally will repeat INR at 11 a.m. and re-evaluate if she can go for surgery today Status: Acute (2) Supratherapeutic INR: Problem comment: - ordered vitamin K 5 mg on June 07 orally will repeat INR at 11 a.m. and re-evaluate if she can go for surgery today Status: Acute (3) Urinary retention: Problem comment: No history of prior urinary retention Likely secondary to trauma and opioids for treating her pain Straight cath if needed Status: Acute (4) Asymptomatic bacteriuria: Problem comment: Patient denies burning sensation on urination, denies frequency or lower abdominal pain History of UTI, 2022 showed pansensitive E coli Not treating for now, urine culture pending Status: Acute (5) Paroxysmal atrial fibrillation: Problem comment: - chronic - Obtain EKG - reversing warfarin for surgery as above, restart post op, goal INR 2-3 - rate slow, in the 50s, she is on coreg, patient notes chronic bradycardia, asymptomatic, monitor on tele Status: Chronic (6) Chronic kidney disease, stage 3: Problem comment: - stable, monitor Status: Chronic (7) Hypertension: Problem comment: - BP elevated. Continue lisinopril, furosemide, nifedipine, Coreg Status: Chronic (8) Heart failure: Problem comment: - currently looks compensated - Echocardiogram obtained in May 2022 shows mild generalized hypokinesis with an ejection fraction of 48%. No significant valvular disease. Sinus bradycardia noted. - patient states she had a repeat echo just a few weeks ago at [facility] in [place], but I am unable to access these records. - no recent symptoms of heart failure, giving gentle IV fluids overnight due to long bone fracture with supratherapeutic INR, monitor for volume overload Status: Chronic (9) Chronic anticoagulation: Problem comment: For atrial fibrillation, goal INR 2-3 Status: Chronic (10) Bradycardia: Problem comment: Likely due to carvedilol. Reduced dose to 6.25 b.i.d. in 2022 Status: Chronic Total Time Spent Total Time Spent: Today I spent 50 minutes seeing the patient, reviewing Expanse and EPIC notes/diagnostics, discussing the care plan with our care time that includes social work, PT/OT, pharmacy, RT, long term and documenting my impressions and plan in the medical record. Subjective Date Seen: 06/07/24 Interval history: Patient seen and examined at bedside. She is complaining of retention of urine, she mentioned that she did not have this problem prior to this episode. Patient was straight cathed twice overnight. She states that she does not have history of burning sensation on urination, no increased frequency and no lower abdominal pain, though mentions she mentioned that she has history of UTIs. Exam Narrative: Exam Narrative: Physical exam GENERAL: Comfortable, no acute distress. HEAD AND NECK: Atraumatic, normocephalic CARDIOVASCULAR: RRR. Normal S1, S2. No murmurs. RESPIRATORY: Clear to auscultation B/L. Good air entry B/L. GASTROINTESTINAL: Not distended, not tender to palpation. NEUROLOGY: Alert, awake, oriented X 3. Normal speech. PSYCH: Normal mood, normal affect. Const: Vital Signs, click to edit/add: Vital Signs - 24 hr 06/06/24 15:53 06/06/24 17:49 06/06/24 18:44 Temperature 97 F L 97.9 F 98 F Pulse Rate [Right Pulse Oximeter] 54 L 53 L 53 L Respiratory Rate 18 18 18 Blood Pressure [Le ft Arm] Blood Pressure [Ri ght Arm] 179/91 H Blood Pressure [Ri ght Upper Arm] 188/77 H 186/86 H Pulse Oximetry 97 100 99 Oxygen Delivery Me thod Room Air Room Air Room Air 06/06/24 18:44 06/06/24 19:00 06/06/24 23:00 Temperature 97.8 F Pulse Rate [Right Pulse Oximeter] 56 L Respiratory Rate 18 16 18 Blood Pressure [Le ft Arm] Blood Pressure [Ri ght Arm] 180/85 H Blood Pressure [Ri ght Upper Arm] Pulse Oximetry 99 97 97 Oxygen Delivery Me thod Room Air Room Air Room Air 06/06/24 23:00 06/07/24 03:00 Temperature 98.5 F 98.2 F Pulse Rate [Right Pulse Oximeter] 56 L 53 L Respiratory Rate 16 16 Blood Pressure [Le ft Arm] 142/88 H Blood Pressure [Ri ght Arm] 150/83 H Blood Pressure [Ri ght Upper Arm] Pulse Oximetry 97 95 Oxygen Delivery Me thod Room Air Room Air Labs Labs: Laboratory Results - last 24 hr 06/06/24 06/07/24 06/07/24 16:47 06:11 06:52 WBC 7.32 8.63 RBC 4.50 3.66 L Hgb 12.8 10.6 L Hct 40.2 32.6 L MCV 89 89 MCH 28 29 MCHC 32 33 RDW Coeff of Pascual 13.6 13.8 Plt Count 164 126 L Neut % (Auto) 77.7 H 78.9 H Lymph % (Auto) 13.1 L 10.7 L Gaines % (Auto) 6.6 9.3 Eos % (Auto) 1.9 0.6 Baso % (Auto) 0.3 0.2 Neut # (Auto) 5.70 6.80 Lymph # (Auto) 1.00 0.90 Gaines # (Auto) 0.50 0.80 Eos # (Auto) 0.14 0.05 Baso # (Auto) 0.02 0.02 Abs Immat Gran (auto) 0.03 0.03 Imm/Tot Granulo (auto) 0.4 0.3 INR 4.51 H 3.77 H Sodium 140 135 Potassium 3.8 3.9 Chloride 105 103 Carbon Dioxide 26 26 Anion Gap 9 6 L BUN 22 19 Creatinine 1.1 0.9 Estimated Creat Clear 40.09 44.10 Estimated GFR 52 66 Glucose 140 H 130 H Calcium 9.1 8.6 Urine Color Yellow Urine Appearance Clear Urine pH 6.5 Ur Specific [place] 1.020 Urine Protein 1+ A Urine Glucose (UA) Negative Urine Ketones Negative Urine Blood 1+ A Urine Nitrite Positive A Urine Bilirubin Negative Urine Urobilinogen 0.2 Ur Leukocyte Esterase 1+ A Urine RBC 5-10 A Urine WBC >100 A Ur Squamous Epith Cells None Urine Bacteria Many A
[2024-06-07 11:30] LABS: INR 3.18 (0.91-1.10); Prothrombin Time 33.9 Seconds
[2024-06-07] MEDS: FUROSEMIDE 20 MG TABLET PO (12:40)
[2024-06-07] MEDS: ATORVASTATIN CALCIUM 10 MG TABLET PO (12:40)
--- NOTE | 2024-06-07 14:36 | PC.NURSE ---
end of shift. pt is alert x4, she has been pleasant and cooperative. she is getting IV pain meds. she has a left hip hematoma that appears to be same in size, later she was not able to void and a Sheets was placed. she was npo, regular diet was changed. Call light within reach. L elbow hematoma as well from the fall. INR was high and she might have surgery is tomorrow,
--- NOTE | 2024-06-07 15:50 | PC.SOCIAL ---
Discharge Planning: SW met with patient to check-in and see if she is would be open to discuss discharge plans. Patient was alert and engaged with social work. Patient explained she hadn't thought of discharge needs since she hadn't had surgery yet. SW expressed understanding and validated how hard it would be to feel ready for surgery, but having your body not be ready. SW inquired about what home living is like. Son states that patient lives with his sister in a townhouse and the bedrooms are on the second level with about 14 steps up. SW inquired about any ability to stay on the first level, son reports there's a small living room they could maybe set up space in. SW also discussed if patient needed rehab that there are multiple places that she could go to and provided a list to review when feeling ready. Patient and son feel that [facility] would likely be first choice, but would like to talk about this more if rehab is needed. SW to continue to support patient on discharge planning.
--- NOTE | 2024-06-07 19:44 | PC.NURSE ---
Patient alert and orientedx4. Continues to complain of hip pain with activity. PRN Dilaudid given with effect. Other vital signs stable. Sheets catheter intact and patent. Turn and repo in bed due to hip fracture.
[2024-06-07] MEDS: NIFEdipine ER 30 MG TAB PO (20:50)
[2024-06-08] VITALS (26 sets, daily range): BP systolic 131–157; BP diastolic 60–112; PULSE 48–72; RESP 10–18; TEMP 36.6–37.3; O2SAT 84–99
[2024-06-08] MEDS: HYDROmorphone 0.5 mg/0.5 ml inj IVP ×3 (02:27→17:58)
[2024-06-08] MEDS: SODIUM CHLORIDE 0.9 % (FLUSH) 10 ML SYRINGE 5 ML IVF (02:28)
--- NOTE | 2024-06-08 05:44 | PC.NURSE ---
Shift note: Patient has been bed throughout the shift. Assisted in turn and reposition. Pain rated at 3 but increases with position change. x1 pain medication given tonight. NPO since 0000 for possible surgery today. Vitally stable. Patient had adequate sleep.
[2024-06-08 06:36] LABS: Hematocrit* 29.5 % (33.0-51.0); Hemoglobin* 9.4 gm/dL (12.0-16.0); Mean Corpuscular HGB Conc 32 gm/dL (32-36); Mean Corpuscular Hemoglobin 29 pg (26-34); Mean Corpuscular Volume 91 fL (80-100); Platelet Count* 109 K/uL (140-440); Red Blood Count* 3.23 m/uL (4.00-5.20); White Blood Count* 6.95 K/uL (4.50-11.00)
[2024-06-08 06:56] LABS: Chloride* 102 mmol/L (96-114); Potassium* 3.7 mmol/L (3.6-5.1); Sodium* 135 mmol/L (135-149)
[2024-06-08 06:59] LABS: Blood Urea Nitrogen* 14 mg/dL (7-30); Creatinine* 0.8 mg/dL (0.5-1.5); Estimated Glomerular Filt Rate 76 ml/min
[2024-06-08 07:00] LABS: Anion Gap 2 mEq/L (7-15); Calcium* 8.4 mg/dL (8.4-10.6); Carbon Dioxide* 31 mmol/L (20-32); Glucose* 132 mg/dL (60-115)
[2024-06-08 07:15] LABS: INR 2.77 (0.91-1.10); Prothrombin Time 30.5 Seconds
[2024-06-08 07:25] LABS: Slide Review Reflex No
[2024-06-08] MEDS: LACTATED RINGERS 1000 ML 1,000 ML 75 ML IV (08:55)
[2024-06-08] MEDS: 0.9 % SODIUM CHLORIDE 1000 ml 1,000 ML 75 ML IV (09:10)
--- NOTE | 2024-06-08 09:14 | CRLHL7_ITS ---
For Patients: As a result of the Cures Act, medical imaging exams and procedure reports are released immediately into your electronic medical record. You may view this report before your referring provider. If you have questions, please contact your health care provider. Indication: Left proximal femoral fracture Technique: Three fluoroscopic images of the left proximal femur. Fluoroscopic time 109.5 seconds IMPRESSION: Fluoroscopic guidance for open reduction internal fixation of left proximal femoral fracture. Dictated by Dago Webb MD @ 06/09/2024 11:25:02 AM (Electronically Signed)
[2024-06-08] MEDS: CEFAZOLIN 1 GM inj 2 GM IVP (09:26)
[2024-06-08] MEDS: TRANEXAMIC ACID 100 MG/ML INJ 1000 MG IV (09:27)
--- NOTE | 2024-06-08 10:12 | PM.ORPRC ---
Procedure Note Date of procedure: 06/08/24 Procedure: PREOPERATIVE DIAGNOSIS: Left hip 2 part intertrochanteric fracture POSTOPERATIVE DIAGNOSIS: Left hip 2 part intertrochanteric fracture NAME OF OPERATION: Left hip fracture ORIF SURGEON: Ray Brooke MD DISH MAKER: Tonie Saucedo PA-C IMPLANTS: Synthes intramedullary 130 degree hip screw 12 mm x 170 mm with a 100 mm lag screw and a 36 mm distal interlocking screw ANESTHESIA: General ESTIMATED BLOOD LOSS: 25 mL COMPLICATIONS: None SPECIMENS: None DRAINS: None PREOPERATIVE ANTIBIOTICS: Ancef 2 g INDICATIONS: The patient is a 78-year-old who fell yesterday sustaining a 2 part intertrochanteric fracture of the left hip. They were admitted for workup and care. They have been medically cleared for surgery. The risks, benefits and expected outcomes were discussed in detail. These included but were not limited to: Infection, bleeding, injury to blood vessel or nerve, venous thromboembolism. All questions were answered to their satisfaction. Use of an senior sales assistant was necessary for patient positioning and safety, soft tissue retraction and closure, dressing application, and transfer of the patient to and from the hospital bed to the fracture table. PROCEDURE: Spinal anesthesia was administered. The patient was placed supine on the fracture table. The left lower extremity was prepped and draped in the usual sterile fashion. The limb was placed in longitudinal traction. Our provisional reduction was confirmed with the C-arm. The guide pin was placed percutaneously to the tip of the greater trochanter. It was advanced into the canal. Its placement was confirmed with the image intensifier in both AP and lateral views. We then made a stab incision around the guide pin. The soft tissue sleeve was advanced to the tip of the trochanter. The opening reamer was used. The intramedullary nail was placed. The guide pin was taken to the subchondral bone of the femoral head on both the AP and lateral views. It was placed in the center, center aspect of the head. The drill was used. We placed the 100 mm lag screw. Our reduction remains anatomic. Traction was released. The fracture was compressed. The lag screw was set to dynamic mode. That is it was not locked. We placed a 36 mm distal interlocking screw. This construct was imaged in the AP and lateral views and was felt to be well placed with an anatomic reduction. The wounds were irrigated with normal saline. They were closed with Vicryl deep and Monocryl in the skin. A dry dressing was applied. Sponge and needle counts were correct x2. The patient tolerated the procedure well. There were no apparent complications. They were carefully transferred to the hospital bed and taken to the postanesthesia care unit in satisfactory condition. PLAN: The patient will be mobilized with physical therapy. They may weightbear as tolerates on the left lower extremity. Her usual dose of Coumadin can be restarted. They will be discharged to a custodial once medically appropriate.
--- NOTE | 2024-06-08 10:41 | P.ANES_ITS ---
Anesthesia Charges Start Date/Time Anesthesia Start Date: 06/08/24 Anesthesia Start Time: 08:55 Stop Date/Time Anesthesia Stop Date: 06/08/24 Anesthesia Stop Time: 10:39 Summary Extremes of Age - Over 70 or under 1: TIRE SPOTTER Coding CPT Codes CPT Codes: ANESTH HIP JOINT SURGERY - 28681 ([id number]) P3 - PATIENT W/SEVERE SYS DISEASE, QZ - TIRE SPOTTER SVC W/O SENIOR IOS SOFTWARE ENGINEER BY Additional Codes: Summary - Extremes of Age - Over 70 or under 1: TIRE SPOTTER ([id number])
--- NOTE | 2024-06-08 10:41 | W.ANESCHARGE ---
Anesthesia Charges Start Date/Time Anesthesia Start Date: 06/08/24 Anesthesia Start Time: 08:55 Stop Date/Time Anesthesia Stop Date: 06/08/24 Anesthesia Stop Time: 10:39 Summary Extremes of Age - Over 70 or under 1: ADMISSIONS RN Coding CPT Codes CPT Codes: ANESTH HIP JOINT SURGERY - 77530 ([id number]) P3 - PATIENT W/SEVERE SYS DISEASE, QZ - ADMISSIONS RN SVC W/O OPERATIONS MANAGEMENT TRAINEE BY Additional Codes: Summary - Extremes of Age - Over 70 or under 1: ADMISSIONS RN ([id number])
[2024-06-08] MEDS: fentaNYL 100 MCG/2 ML inj 50 MCG IVP (11:11)
--- NOTE | 2024-06-08 11:28 | PM.ORCN ---
History of Present Illness HPI Date Seen: 06/08/24 Chief complaint: fall Narrative: The patient is a community ambulator, without assist. She fell sustaining a 2 part left hip intertrochanteric fracture. She has never injured this hip or had surgery on it previously. She is on Coumadin preoperatively and was not cleared for surgery yesterday. She is cleared for surgery today. She is having some pain in her right heel since this morning. Review of Systems Narrative: The patient denies: Fever, night sweats, shaking chills, nausea, vomiting, diarrhea, chest pain, chest pressure, shortness of breath, no rash, no change in hearing or vision, no issues with bleeding or clotting [facility] Medical History Chronic anticoagulation ?Z79.01 - custodial (current) use of anticoagulants (ICD-10) Right anterior knee pain ?M25.561 - Pain in right knee (ICD-10) Closed left humeral fracture ?S42.302A - Unspecified fracture of shaft of humerus, left arm, initial encounter for closed fracture (ICD-10) Lumbar radiculopathy ?M54.16 - Radiculopathy, lumbar region (ICD-10) Migraine ?G43.909 - Migraine, unspecified, not intractable, without status migrainosus (ICD-10) Paroxysmal atrial fibrillation ?I48.0 - Paroxysmal atrial fibrillation (ICD-10) Hypertension ?I10 - Essential (primary) hypertension (ICD-10) Chronic kidney disease, stage 3 ?N18.30 - Chronic kidney disease, stage 3 unspecified (ICD-10) Heart failure ?I50.9 - Heart failure, unspecified (ICD-10) Altered mental status ?R41.82 - Altered mental status, unspecified (ICD-10) Surgical History History of open reduction and internal fixation (ORIF) procedure (12/08/23) ?Z98.890 - Other specified postprocedural states (ICD-10) History of appendectomy ?Z90.49 - Acquired absence of other specified parts of digestive tract (ICD-10) History of hysterectomy ?Z90.710 - Acquired absence of both cervix and uterus (ICD-10) History of tonsillectomy ?Z90.89 - Acquired absence of other organs (ICD-10) Family History Mother Diabetes Cardiovascular disease Brother Dementia Father Abdominal aortic aneurysm Social History (Updated 06/06/24 @ 21:41 by Carly Coronado MD) Narrative: Patient lives at the [facility] [place] [facility] in [place]. She is in an independent apartment. Her lived there and is in assisted living due to a remote history of stroke. She reports her independent living has been going well for her. She does not smoke. She does not drink alcohol. She does not use recreational drugs. Her son [place] and her daughter are her healthcare power of commercial litigation attorney. Her code status is DNI. She goes to [facility] in [place] for primary care. 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 on 05/07/24 What is your current living situation?: I presently have a place to live Problems where you live: no known problems Problems where you live details: n/a In the past 12 months, utilities in danger of being shut off: no In past 12 months, lack of transportation kept you from medical appts, meetings, work, or getting things needed for daily living: no In the past 12 mos, have been you worried that your food would run out before you had money to buy more?: never true In the past 12 mos, the food you bought just didn't last and you didn't have money to buy more?: never true Highest level of school completed/degree received: Associate degree: occupational, technical, vocational program Smoking Status: Never smoker Do you use any of these nicotine containing products: None Second hand tobacco smoke exposure: No How often do you have a drink containing alcohol: never How often do you have six or more drinks on one occasion: Never AUDIT-C Alcohol total score: 0 Non-prescribed substance use: denies use Caffeine: Yes Are you now , , , , never or living with a partner: Social isolation score (0-1 are the most socially isolated patients): 0 How often does anyone, including family, friends and others, physically hurt you: never How often does anyone, including family, friends and others, insult or talk down to you: never How often does anyone, including family, friends and others, threaten you with harm: never How often does anyone, including family, friends and others, scream or curse at you: never Are you using contraception or practicing any form of control: No service: No Meds Home Medications and Allergies Home Medications ?Medication ?Instructions ?Recorded ?Confirmed ?Type atorvastatin 10 mg tablet 10 mg PO DAILY 08/01/22 06/06/24 History furosemide 20 mg tablet 20 mg PO DAILY 08/01/22 06/06/24 History lisinopril 40 mg tablet 40 mg PO DAILY 08/01/22 06/06/24 History warfarin 5 mg tablet 5 - 7.5 mg PO HS 08/01/22 06/07/24 History cyclobenzaprine 5 mg tablet 5 mg PO HS PRN 12/02/23 06/07/24 History sumatriptan succinate 50 mg tablet 50 mg PO Q2H PRN 12/02/23 06/07/24 History nifedipine 30 mg tablet,extended 30 mg PO HS 06/06/24 06/06/24 History release ascorbic acid (vitamin C) 500 mg 500 mg PO DAILY 06/07/24 06/07/24 History chewable tablet (Acerola C) cholecalciferol (vitamin D3) 25 25 mcg PO DAILY 06/07/24 06/07/24 History mcg (1,000 unit) capsule cranberry 500 mg capsule 500 mg PO HS 06/07/24 06/07/24 History cyanocobalamin (vitamin B-12) 1,000 mcg PO HS 06/07/24 06/07/24 History 1,000 mcg tablet multivitamin (Daily Multi-Vitamin 1 tab PO DAILY 06/07/24 06/07/24 History tablet) Allergies Allergy/AdvReac Type Severity Reaction Status Date / Time codeine Allergy Verified 06/06/24 15:56 Ortho Exam Narrative Exam Narrative: The patient is examined supine in the hospital bed. She is quite uncomfortable, in pain. The skin about the left hip is intact and normal. CMS to the foot is normal. Examination of the right heel does not show swelling, ecchymosis or an ulcer. Const Vital Signs, click to edit/add: Vital Signs - 24 hr 06/07/24 11:30 06/07/24 15:30 06/07/24 15:30 Temperature 98.4 F Pulse Rate Pulse Rate [Right Pulse Oximeter] 57 L Respiratory Rate 16 18 18 Blood Pressure Blood Pressure [Left Arm] Blood Pressure [Right Arm] 143/70 H Pulse Oximetry 91 92 Oxygen Delivery Method Room Air Room Air Oxygen Flow Rate 06/07/24 15:57 06/07/24 18:28 06/07/24 22:42 Temperature 98.8 F 98.8 F Pulse Rate Pulse Rate [Right Pulse Oximeter] 56 L 59 L 62 Respiratory Rate 20 18 18 Blood Pressure Blood Pressure [Left Arm] 141/70 H 134/69 Blood Pressure [Right Arm] Pulse Oximetry 95 92 Oxygen Delivery Method Room Air Room Air Oxygen Flow Rate 06/07/24 22:42 06/07/24 22:42 06/07/24 23:52 Temperature 98.8 F Pulse Rate Pulse Rate [Right Pulse Oximeter] 62 Respiratory Rate 18 18 Blood Pressure Blood Pressure [Left Arm] 126/70 Blood Pressure [Right Arm] Pulse Oximetry 91 91 83 L Oxygen Delivery Method Room Air Room Air Room Air Oxygen Flow Rate 06/07/24 23:52 06/08/24 02:23 06/08/24 10:36 Temperature 98 F 98.0 F Pulse Rate 62 Pulse Rate [Right Pulse Oximeter] 56 L Respiratory Rate 18 12 Blood Pressure 131/112 H Blood Pressure [Left Arm] 133/67 Blood Pressure [Right Arm] Pulse Oximetry 94 97 95 Oxygen Delivery Method Nasal Cannula Room Air Room Air Oxygen Flow Rate 2.0 06/08/24 10:40 06/08/24 10:45 06/08/24 10:50 Temperature Pulse Rate 61 55 L 54 L Pulse Rate [Right Pulse Oximeter] Respiratory Rate 12 13 16 Blood Pressure 135/66 132/70 139/68 Blood Pressure [Left Arm] Blood Pressure [Right Arm] Pulse Oximetry 84 L 98 99 Oxygen Delivery Method Room Air Nasal Cannula Nasal Cannula Oxygen Flow Rate 2.0 2.0 06/08/24 10:55 06/08/24 11:00 06/08/24 11:05 Temperature 99.1 F Pulse Rate 51 L 54 L 49 L Pulse Rate [Right Pulse Oximeter] Respiratory Rate 12 10 L 10 L Blood Pressure 150/82 H 154/70 H 157/76 H Blood Pressure [Left Arm] Blood Pressure [Right Arm] Pulse Oximetry 99 99 99 Oxygen Delivery Method Nasal Cannula Nasal Cannula Nasal Cannula Oxygen Flow Rate 2.0 2.0 2.0 06/08/24 11:10 06/08/24 11:15 Temperature Pulse Rate 52 L 51 L Pulse Rate [Right Pulse Oximeter] Respiratory Rate 10 L 10 L Blood Pressure 155/67 H 155/66 H Blood Pressure [Left Arm] Blood Pressure [Right Arm] Pulse Oximetry 93 98 Oxygen Delivery Method Room Air Nasal Cannula Oxygen Flow Rate 2.0 Results Labs Labs: Laboratory Results - last 48 hr 06/06/24 06/07/24 06/07/24 16:47 06:11 06:52 WBC 7.32 8.63 RBC 4.50 3.66 L Hgb 12.8 10.6 L Hct 40.2 32.6 L MCV 89 89 MCH 28 29 MCHC 32 33 RDW Coeff of Pasc[place] 13.6 13.8 Plt Count 164 126 L Neut % (Auto) 77.7 H 78.9 H Lymph % (Auto) 13.1 L 10.7 L [place] % (Auto) 6.6 9.3 Eos % (Auto) 1.9 0.6 Baso % (Auto) 0.3 0.2 Neut # (Auto) 5.70 6.80 Lymph # (Auto) 1.00 0.90 [place] # (Auto) 0.50 0.80 Eos # (Auto) 0.14 0.05 Baso # (Auto) 0.02 0.02 Abs Immat Gran (auto) 0.03 0.03 Imm/Tot Granulo (auto) 0.4 0.3 INR 4.51 H 3.77 H Sodium 140 135 Potassium 3.8 3.9 Chloride 105 103 Carbon Dioxide 26 26 Anion Gap 9 6 L BUN 22 19 Creatinine 1.1 0.9 Estimated Creat Clear 40.09 44.10 Estimated GFR 52 66 Glucose 140 H 130 H Calcium 9.1 8.6 Urine Color Yellow Urine Appearance Clear Urine pH 6.5 Ur Specific [place] 1.020 Urine Protein 1+ A Urine Glucose (UA) Negative Urine Ketones Negative Urine Blood 1+ A Urine Nitrite Positive A Urine Bilirubin Negative Urine Urobilinogen 0.2 Ur Leukocyte Esterase 1+ A Urine RBC 5-10 A Urine WBC >100 A Ur Squamous Epith Cells None Urine Bacteria Many A Blood Type Antibody Screen 06/07/24 06/08/24 06/08/24 11:09 05:57 08:15 WBC 6.95 RBC 3.23 L Hgb 9.4 L Hct 29.5 L MCV 91 MCH 29 MCHC 32 RDW Coeff of [place] Plt Count 109 L Neut % (Auto) Lymph % (Auto) [place] % (Auto) Eos % (Auto) Baso % (Auto) Neut # (Auto) Lymph # (Auto) [place] # (Auto) Eos # (Auto) Baso # (Auto) Abs Immat Gran (auto) Imm/Tot Granulo (auto) INR 3.18 H 2.77 H Sodium 135 Potassium 3.7 Chloride 102 Carbon Dioxide 31 Anion Gap 2 L BUN 14 Creatinine 0.8 Estimated Creat Clear 44.10 Estimated GFR 76 Glucose 132 H Calcium 8.4 Urine Color Urine Appearance Urine pH Ur Specific [place] Urine Protein Urine Glucose (UA) Urine Ketones Urine Blood Urine Nitrite Urine Bilirubin Urine Urobilinogen Ur Leukocyte Esterase Urine RBC Urine WBC Ur Squamous Epith Cells Urine Bacteria Blood Type A Positive Antibody Screen NEGATIVE Diagnostic results Additional Comments: An AP pelvis, AP and cross-table lateral view of the left hip show a 2 part intertrochanteric fracture. The lesser trochanter is attached to the shaft fragment. Assessment and Plan Assessment and plan (1) Closed fracture of left hip: Problem comment: - Ortho consulted from ER. Anticipate surgery once INR goes down - NPO after midnight - Supratherapeutic INR and fracture of large bone, expect she will have potentially significant blood loss: Give IVF overnight, recheck Hgb in am, discussed potential need for PRBC tranfusion. - Reverse coumadin, vit K given in ER, recheck INR in am - METs about 4 at baseline, able to do some walking, but had to use scooter on excursions for cruise. I've ordered EKG for w/u for surgery due to h/o afib. CXR reviewed, results above. If EKG okay, no further w/u before surgery. - ordered vitamin K 5 mg on June 07 orally will repeat INR at 11 a.m. and re-evaluate if she can go for surgery today Status: Acute Total time spent: Total time spent is greater than 50% in coordination of care (as documented) at patient's floor/unit and/or counseling patient: (2) Supratherapeutic INR: Problem comment: - ordered vitamin K 5 mg on June 07 orally will repeat INR at 11 a.m. and re-evaluate if she can go for surgery today Status: Acute Total time spent: Total time spent is greater than 50% in coordination of care (as documented) at patient's floor/unit and/or counseling patient: (3) Urinary retention: Problem comment: No history of prior urinary retention Likely secondary to trauma and opioids for treating her pain Straight cath if needed Status: Acute Total time spent: Total time spent is greater than 50% in coordination of care (as documented) at patient's floor/unit and/or counseling patient: (4) Asymptomatic bacteriuria: Problem comment: Patient denies burning sensation on urination, denies frequency or lower abdominal pain History of UTI, 2022 showed pansensitive E coli Not treating for now, urine culture pending Status: Acute Total time spent: Total time spent is greater than 50% in coordination of care (as documented) at patient's floor/unit and/or counseling patient: (5) Paroxysmal atrial fibrillation: Problem comment: - chronic - Obtain EKG - reversing warfarin for surgery as above, restart post op, goal INR 2-3 - rate slow, in the 50s, she is on coreg, patient notes chronic bradycardia, asymptomatic, monitor on tele Status: Chronic Total time spent: Total time spent is greater than 50% in coordination of care (as documented) at patient's floor/unit and/or counseling patient: (6) Chronic kidney disease, stage 3: Problem comment: - stable, monitor Status: Chronic Total time spent: Total time spent is greater than 50% in coordination of care (as documented) at patient's floor/unit and/or counseling patient: (7) Hypertension: Problem comment: - BP elevated. Continue lisinopril, furosemide, nifedipine, Coreg Status: Chronic Total time spent: Total time spent is greater than 50% in coordination of care (as documented) at patient's floor/unit and/or counseling patient: (8) Heart failure: Problem comment: - currently looks compensated - Echocardiogram obtained in May 2022 shows mild generalized hypokinesis with an ejection fraction of 48%. No significant valvular disease. Sinus bradycardia noted. - patient states she had a repeat echo just a few weeks ago at [facility] in [place], but I am unable to access these records. - no recent symptoms of heart failure, giving gentle IV fluids overnight due to long bone fracture with supratherapeutic INR, monitor for volume overload Status: Chronic Total time spent: Total time spent is greater than 50% in coordination of care (as documented) at patient's floor/unit and/or counseling patient: (9) Chronic anticoagulation: Problem comment: For atrial fibrillation, goal INR 2-3 Status: Chronic Total time spent: Total time spent is greater than 50% in coordination of care (as documented) at patient's floor/unit and/or counseling patient: (10) Bradycardia: Problem comment: Likely due to carvedilol. Reduced dose to 6.25 b.i.d. in 2022 Status: Chronic Total time spent: Total time spent is greater than 50% in coordination of care (as documented) at patient's floor/unit and/or counseling patient: Plan Assessment: Two-part left hip intertrochanteric fracture Chronic anticoagulation, on Coumadin INR 2.77 Plan: The INR is at an appropriate level for general anesthesia to get her hip fracture fixed. Therefore, we will plan to take her to the operating today for ORIF of her left hip fracture.
--- NOTE | 2024-06-08 12:29 | PM.IMPN1 ---
Assessment and Plan Assessment and plan (1) Closed fracture of left hip: Problem comment: - Ortho consulted from ER. Anticipate surgery once INR goes down - NPO after midnight - Supratherapeutic INR and fracture of large bone, expect she will have potentially significant blood loss: Give IVF overnight, recheck Hgb in am, discussed potential need for PRBC tranfusion. - Reverse coumadin, vit K given in ER, recheck INR in am - METs about 4 at baseline, able to do some walking, but had to use scooter on excursions for cruise. I've ordered EKG for w/u for surgery due to h/o afib. CXR reviewed, results above. If EKG okay, no further w/u before surgery. - ordered vitamin K 5 mg on June 07 orally will repeat INR - s/p ORIF surgery 06/08. Status: Acute (2) Supratherapeutic INR: Problem comment: - ordered vitamin K 5 mg on June 07 orally Status: Acute (3) Urinary retention: Problem comment: No history of prior urinary retention Likely secondary to trauma and opioids for treating her pain Sheets cath inserted 06/07 for urinary retention. Status: Acute (4) Asymptomatic bacteriuria: Problem comment: Patient denies burning sensation on urination, denies frequency or lower abdominal pain History of UTI, 2022 showed pansensitive E coli Not treating for now, urine culture pending Status: Acute (5) Paroxysmal atrial fibrillation: Problem comment: - chronic - Obtain EKG - reversing warfarin for surgery as above, restart post op, goal INR 2-3 - rate slow, in the 50s, she is on coreg, patient notes chronic bradycardia, asymptomatic, monitor on tele Status: Chronic (6) Chronic kidney disease, stage 3: Problem comment: - stable, monitor Status: Chronic (7) Hypertension: Problem comment: - BP elevated. Continue lisinopril, furosemide, nifedipine, Coreg Status: Chronic (8) Heart failure: Problem comment: - currently looks compensated - Echocardiogram obtained in May 2022 shows mild generalized hypokinesis with an ejection fraction of 48%. No significant valvular disease. Sinus bradycardia noted. - patient states she had a repeat echo just a few weeks ago at [facility] in [place], but I am unable to access these records. - no recent symptoms of heart failure, giving gentle IV fluids overnight due to long bone fracture with supratherapeutic INR, monitor for volume overload Status: Chronic (9) Chronic anticoagulation: Problem comment: For atrial fibrillation, goal INR 2-3 Status: Chronic (10) Bradycardia: Problem comment: Likely due to carvedilol. Reduced dose to 6.25 b.i.d. in 2022 Status: Chronic Subjective Date Seen: 06/08/24 Interval history: S/P ORIF of Lt hip today 06/08. Pt c/o pain in her right heel this am. Sheets cath inserted testerday for urinary retention. Exam Narrative: Exam Narrative: Physical exam GENERAL: No acute distress. HEAD AND NECK: Atraumatic, normocephalic CARDIOVASCULAR: RRR. Normal S1, S2. No murmurs. RESPIRATORY: Clear to auscultation B/L. Good air entry B/L. No wheezes or rhonchi. NEUROLOGY: Alert, awake, oriented. Normal speech. PSYCH: Normal mood, normal affect. Const: Vital Signs, click to edit/add: Vital Signs - 24 hr 06/07/24 15:30 06/07/24 15:30 06/07/24 15:57 Temperature 98.8 F Pulse Rate Pulse Rate [Right Pulse Oximeter] 56 L Respiratory Rate 18 18 20 Blood Pressure Blood Pressure [Le ft Arm] 141/70 H Pulse Oximetry 92 95 [facility] Room Air Oxygen Flow Rate 06/07/24 18:28 06/07/24 22:42 06/07/24 22:42 Temperature 98.8 F Pulse Rate Pulse Rate [Right Pulse Oximeter] 59 L 62 Respiratory Rate 18 18 18 Blood Pressure Blood Pressure [Le ft Arm] 134/69 Pulse Oximetry 92 91 [facility] Room Air Oxygen Flow Rate 06/07/24 22:42 06/07/24 23:52 06/07/24 23:52 Temperature 98.8 F Pulse Rate Pulse Rate [Right Pulse Oximeter] 62 Respiratory Rate 18 Blood Pressure Blood Pressure [Le ft Arm] 126/70 Pulse Oximetry 91 83 L 94 [facility] Room Air Nasal Cannula Oxygen Flow Rate 2.0 06/08/24 02:23 06/08/24 10:36 06/08/24 10:40 Temperature 98 F 98.0 F Pulse Rate 62 61 Pulse Rate [Right Pulse Oximeter] 56 L Respiratory Rate 18 12 12 Blood Pressure 131/112 H 135/66 Blood Pressure [Le ft Arm] 133/67 Pulse Oximetry 97 95 84 L Oxygen Delivery Me thod Room Air Room Air Room Air Oxygen Flow Rate 06/08/24 10:45 06/08/24 10:50 06/08/24 10:55 Temperature Pulse Rate 55 L 54 L 51 L Pulse Rate [Right Pulse Oximeter] Respiratory Rate 13 16 12 Blood Pressure 132/70 139/68 150/82 H Blood Pressure [Le ft Arm] Pulse Oximetry 98 99 99 Oxygen Delivery Me thod Nasal Cannula Nasal Cannula Nasal Cannula Oxygen Flow Rate 2.0 2.0 2.0 06/08/24 11:00 06/08/24 11:05 06/08/24 11:10 Temperature 99.1 F Pulse Rate 54 L 49 L 52 L Pulse Rate [Right Pulse Oximeter] Respiratory Rate 10 L 10 L 10 L Blood Pressure 154/70 H 157/76 H 155/67 H Blood Pressure [Le ft Arm] Pulse Oximetry 99 99 93 Oxygen Delivery Me thod Nasal Cannula Nasal Cannula Room Air Oxygen Flow Rate 2.0 2.0 06/08/24 11:15 06/08/24 11:30 Temperature 99.0 F Pulse Rate 51 L 48 L Pulse Rate [Right Pulse Oximeter] Respiratory Rate 10 L 10 L Blood Pressure 155/66 H 147/68 H Blood Pressure [Le ft Arm] Pulse Oximetry 98 97 Oxygen Delivery Me thod Nasal Cannula Nasal Cannula Oxygen Flow Rate 2.0 2.0 Labs Labs: Laboratory Results - last 24 hr 06/08/24 06/08/24 05:57 08:15 WBC 6.95 RBC 3.23 L Hgb 9.4 L Hct 29.5 L MCV 91 MCH 29 MCHC 32 Plt Count 109 L INR 2.77 H Sodium 135 Potassium 3.7 Chloride 102 Carbon Dioxide 31 Anion Gap 2 L BUN 14 Creatinine 0.8 Estimated Creat Clear 44.10 Estimated GFR 76 Glucose 132 H Calcium 8.4 Blood Type A Positive Antibody Screen NEGATIVE
[2024-06-08 18:02] LABS: Hemoglobin* 9.5 gm/dL (12.0-16.0)
[2024-06-08] MEDS: CEFAZOLIN 2 GM in 0.9 % SODIUM CHLORIDE Mini-bag 100 ML IVPB (18:29)
--- NOTE | 2024-06-08 18:53 | PC.NURSE ---
The patient arrived back to the floor after surgery at 1200... able to feel her leg and rates pain at a tolerable level. Ice pack to L hip dressing. Requiring O2 to sustain >90 after surgery, although does not report SOB. Stood at the bedside with PT and tolerated this well. Sheets is patent and draining. No N/V tolerating a regular diet with no issues. Calls appropriately. Elise JOLLY BSN
[2024-06-08] MEDS: SENNOSIDES 1 TAB TABLET 2 TAB PO (20:50)
[2024-06-09 02:12] VITALS: BP 131/62; PULSE 71; RESP 18; TEMP 37; O2SAT 96
[2024-06-09] MEDS: CEFAZOLIN 2 GM in 0.9 % SODIUM CHLORIDE Mini-bag 100 ML IVPB ×2 (02:17→10:38)
[2024-06-09] MEDS: OXYCODONE 5 MG TABLET PO ×6 (02:51→23:13)
--- NOTE | 2024-06-09 06:22 | PC.NURSE ---
Shift note: Pt is doing well tolerating regular diet well. Less pain complaint was made, highest pain level rated at 7 and required x1 Oxycodone. Alert and oriented. Sheets working well. Patient has been in bed throughout the night. Vitally stable. Dressing sites appeared clean and dry.
[2024-06-09 06:36] LABS: Hematocrit* 25.8 % (33.0-51.0); Hemoglobin* 8.2 gm/dL (12.0-16.0); Mean Corpuscular HGB Conc 32 gm/dL (32-36); Mean Corpuscular Hemoglobin 29 pg (26-34); Mean Corpuscular Volume 91 fL (80-100); Platelet Count* 113 K/uL (140-440); Red Blood Count* 2.83 m/uL (4.00-5.20); White Blood Count* 7.54 K/uL (4.50-11.00)
[2024-06-09 06:39] LABS: Slide Review Reflex No
[2024-06-09 06:52] LABS: Potassium* 3.7 mmol/L (3.6-5.1); Sodium* 132 mmol/L (135-149)
[2024-06-09 06:55] LABS: Blood Urea Nitrogen* 14 mg/dL (7-30); Creatinine* 0.8 mg/dL (0.5-1.5); Estimated Glomerular Filt Rate 76 ml/min
[2024-06-09 07:00] VITALS: BP 122/67; PULSE 66; RESP 18; TEMP 36.6; O2SAT 94
[2024-06-09] MEDS: SENNOSIDES 1 TAB TABLET 2 TAB PO ×2 (08:47→23:14)
[2024-06-09 11:00] VITALS: BP 140/80; PULSE 61; RESP 18; O2SAT 94
--- NOTE | 2024-06-09 11:57 | PC.SOCIAL ---
Addendum entered by DELORIS Rodriguez 06/09/24 16:04: Discharge planning: [facility] is asking for this worker to send updated notes on Wednesday morning on the pt for a tentative admission on Wednesday. Social work to follow-up as needed. Original Note: Discharge planning: community action worker met with pt today and she shared that she would like to go to [facility] for short-term rehab, as pt is for certain being recommended for short-term rehab now that she has had the surgery and some some PT. community action worker did talk to Deanna at [facility] who shared that they will have short-term rehab beds for females on Wednesday(pt's anticipated discharge date) and to send pt's referral over for review. community action worker secure emailed pt's referral to Deanna at [facility]. Pt would possibly be interested in [facility] in [place] as a second choice if [facility] is not able to take her for some reason. Social work to follow-up as needed.
--- NOTE | 2024-06-09 12:38 | PM.IMPN1 ---
Assessment and Plan Assessment and plan (1) Closed fracture of left hip: Problem comment: - Ortho consulted from ER. Anticipate surgery once INR goes down - NPO after midnight - Supratherapeutic INR and fracture of large bone, expect she will have potentially significant blood loss: Give IVF overnight, recheck Hgb in am, discussed potential need for PRBC tranfusion. - Reverse coumadin, vit K given in ER, recheck INR in am - METs about 4 at baseline, able to do some walking, but had to use scooter on excursions for cruise. I've ordered EKG for w/u for surgery due to h/o afib. CXR reviewed, results above. If EKG okay, no further w/u before surgery. - ordered vitamin K 5 mg on June 07 orally - s/p ORIF surgery 06/08. -Resumed warfarin on 06/09, will repeat INR Status: Acute (2) Supratherapeutic INR: Problem comment: - ordered vitamin K 5 mg on June 07 orally - Resumed warfarin on 06/09, will repeat INR Status: Acute (3) Urinary retention: Problem comment: No history of prior urinary retention Likely secondary to trauma and opioids for treating her pain Sheets cath inserted 06/07 for urinary retention. Status: Acute (4) Asymptomatic bacteriuria: Problem comment: Patient denies burning sensation on urination, denies frequency or lower abdominal pain History of UTI, 2022 showed pansensitive E coli Not treating for now, urine culture pending Status: Acute (5) Paroxysmal atrial fibrillation: Problem comment: - chronic - Obtain EKG - reversing warfarin for surgery as above, restart post op, goal INR 2-3 - rate slow, in the 50s, she is on coreg, patient notes chronic bradycardia, asymptomatic, monitor on tele Status: Chronic (6) Chronic kidney disease, stage 3: Problem comment: - stable, monitor Status: Chronic (7) Hypertension: Problem comment: - BP elevated. Continue lisinopril, furosemide, nifedipine, Coreg Status: Chronic (8) Heart failure: Problem comment: - currently looks compensated - Echocardiogram obtained in May 2022 shows mild generalized hypokinesis with an ejection fraction of 48%. No significant valvular disease. Sinus bradycardia noted. - patient states she had a repeat echo just a few weeks ago at [facility] in [place], but I am unable to access these records. - no recent symptoms of heart failure, giving gentle IV fluids overnight due to long bone fracture with supratherapeutic INR, monitor for volume overload Status: Chronic (9) Chronic anticoagulation: Problem comment: For atrial fibrillation, goal INR 2-3 Status: Chronic (10) Bradycardia: Problem comment: Likely due to carvedilol. Reduced dose to 6.25 b.i.d. in 2022 Status: Chronic Total Time Spent Total Time Spent: Today I spent 50 minutes seeing the patient, reviewing Expanse and EPIC notes/diagnostics, discussing the care plan with our care time that includes social work, PT/OT, pharmacy, RT, care home and documenting my impressions and plan in the medical record. Subjective Date Seen: 06/09/24 Interval history: S/P ORIF of Lt hip today 06/08. Pt started mobility at room w/ PT help. Sheets cath still in d/t urinary retention, will d/c once pt's mobility improves. Monitoring hb. Exam Narrative: Exam Narrative: Physical exam GENERAL: Comfortable, no acute distress. HEAD AND NECK: Atraumatic, normocephalic CARDIOVASCULAR: RRR. Normal S1, S2. No murmurs. RESPIRATORY: Clear to auscultation B/L. Good air entry B/L. No wheezes or rhonchi. NEUROLOGY: Alert, awake, oriented X 3. Normal speech. PSYCH: Normal mood, normal affect. Const: Vital Signs, click to edit/add: Vital Signs - 24 hr 06/08/24 12:45 06/08/24 13:15 06/08/24 13:45 Temperature 98.0 F 98.3 F 98.2 F Pulse Rate 55 L 56 L 57 L Pulse Rate [Right Pulse Oximeter] Respiratory Rate 14 16 14 Blood Pressure 137/90 H 140/68 H 139/66 Blood Pressure [Le ft Arm] Pulse Oximetry 92 93 95 Oxygen Delivery Me thod Nasal Cannula Oxygen Flow Rate 1 06/08/24 14:45 06/08/24 15:00 06/08/24 15:45 Temperature 98.5 F 98.4 F Pulse Rate 58 L 58 L Pulse Rate [Right Pulse Oximeter] Respiratory Rate 16 14 16 Blood Pressure 150/98 H 145/73 H Blood Pressure [Le ft Arm] Pulse Oximetry 93 93 96 Oxygen Delivery Me thod Nasal Cannula Oxygen Flow Rate 1.5 06/08/24 16:45 06/08/24 17:45 06/08/24 19:00 Temperature 98.2 F 98.5 F 98.5 F Pulse Rate 65 72 Pulse Rate [Right Pulse Oximeter] 69 Respiratory Rate 18 18 18 Blood Pressure 143/68 H 138/72 Blood Pressure [Le ft Arm] 138/72 Pulse Oximetry 94 92 96 Oxygen Delivery Me thod Nasal Cannula Oxygen Flow Rate 1.5 06/08/24 22:29 06/08/24 22:29 06/08/24 22:29 Temperature 97.9 F Pulse Rate Pulse Rate [Right Pulse Oximeter] 67 67 Respiratory Rate 18 18 18 Blood Pressure Blood Pressure [Le ft Arm] 137/60 Pulse Oximetry 89 89 Oxygen Delivery Me thod Nasal Cannula Nasal Cannula Oxygen Flow Rate 1.5 1.5 06/09/24 02:12 06/09/24 07:00 06/09/24 07:00 Temperature 98.6 F Pulse Rate Pulse Rate [Right Pulse Oximeter] 71 Respiratory Rate 18 18 18 Blood Pressure Blood Pressure [Le ft Arm] 131/62 Pulse Oximetry 96 94 Oxygen Delivery Me thod Nasal Cannula Room Air Oxygen Flow Rate 1.5 06/09/24 07:00 06/09/24 11:00 Temperature 97.9 F Pulse Rate Pulse Rate [Right Pulse Oximeter] 66 61 Respiratory Rate 18 18 Blood Pressure Blood Pressure [Le ft Arm] 122/67 140/80 H Pulse Oximetry 94 94 Oxygen Delivery Me thod Room Air Room Air Oxygen Flow Rate Labs Labs: Laboratory Results - last 24 hr 06/08/24 06/09/24 17:50 06:00 WBC 7.54 RBC 2.83 L Hgb 9.5 L 8.2 L Hct 25.8 L MCV 91 MCH 29 MCHC 32 Plt Count 113 L Sodium 132 L Potassium 3.7 BUN 14 Creatinine 0.8 Estimated Creat Clear 44.10 Estimated GFR 76
--- NOTE | 2024-06-09 13:23 | PM.ORPN ---
Subjective Subjective Time Seen by Provider: 07:10 Date Seen: 06/09/24 Principal diagnosis: Status post left hip IM rodding Interval history: Herminia is comfortable in the recliner currently. She denies shortness of breath. She denies dizziness, lightheadedness. Ortho Exam Narrative Exam Narrative: Alert and oriented x3. Patient is in no acute distress. Converses without labored breathing. Hearing is grossly intact. Ambulates with a Walker. With physical therapy she has ambulated/ transferred a distance of 2 foot today with assist. examination of the left lower extremity shows CMS intact. She is able to dorsiflex and plantar flex both ankles. CMS intact left lower extremity. Significant edema left thigh. Dressings are intact. There is no erythema or warmth or sign of infection. Const Vital Signs, click to edit/add: Vital Signs - 24 hr 06/08/24 13:45 06/08/24 14:45 06/08/24 15:00 Temperature 98.2 F 98.5 F Pulse Rate 57 L 58 L Pulse Rate [Right Pulse Oximeter] Respiratory Rate 14 16 14 Blood Pressure 139/66 150/98 H Blood Pressure [Left Arm] Pulse Oximetry 95 93 93 Oxygen Delivery Method Nasal Cannula Nasal Cannula Oxygen Flow Rate 1 1.5 06/08/24 15:45 06/08/24 16:45 06/08/24 17:45 Temperature 98.4 F 98.2 F 98.5 F Pulse Rate 58 L 65 72 Pulse Rate [Right Pulse Oximeter] Respiratory Rate 16 18 18 Blood Pressure 145/73 H 143/68 H 138/72 Blood Pressure [Left Arm] Pulse Oximetry 96 94 92 Oxygen Delivery Method Oxygen Flow Rate 06/08/24 19:00 06/08/24 22:29 06/08/24 22:29 Temperature 98.5 F Pulse Rate Pulse Rate [Right Pulse Oximeter] 69 67 Respiratory Rate 18 18 18 Blood Pressure Blood Pressure [Left Arm] 138/72 Pulse Oximetry 96 89 Oxygen Delivery Method Nasal Cannula Nasal Cannula Oxygen Flow Rate 1.5 1.5 06/08/24 22:29 06/09/24 02:12 06/09/24 07:00 Temperature 97.9 F 98.6 F Pulse Rate Pulse Rate [Right Pulse Oximeter] 67 71 Respiratory Rate 18 18 18 Blood Pressure Blood Pressure [Left Arm] 137/60 131/62 Pulse Oximetry 89 96 Oxygen Delivery Method Nasal Cannula Nasal Cannula Oxygen Flow Rate 1.5 1.5 06/09/24 07:00 06/09/24 07:00 06/09/24 11:00 Temperature 97.9 F Pulse Rate Pulse Rate [Right Pulse Oximeter] 66 61 Respiratory Rate 18 18 18 Blood Pressure Blood Pressure [Left Arm] 122/67 140/80 H Pulse Oximetry 94 94 94 Oxygen Delivery Method Room Air Room Air Room Air Oxygen Flow Rate Assessment and Plan Assessment and plan (1) History of open reduction and internal fixation (ORIF) procedure: Problem details: Left midshaft humerus open reduction internal fixation (12/08/2023, Dr. Mott) Status: Acute Assessment and Plan: Plan for discharge is To a long term facility when they meets discharge criteria and when a site is made available. Herminia would like to discontinue warfarin and begin Eliquis. I have spoken to Dr. Bailey regarding this. Herminia states she has had trouble with her INR range of 2-3 going to high to low. She tried Eliquis in the past, however it was expensive and therefore has been taking warfarin. She would like to try it once again. Remove dressing Ten days. Observe wound and phone Orthopedics with any questions or concerns Use Ice on operative hip unrestricted. Return to clinic in 6 weeks with surgeon. Minimize narcotic use. Wean off and discontinue soon as possible. weight-bearing as tolerated left lower extremity. Attend OT and PT Daily at long term facility and at [facility]. I also discussed with Lynn that her hemoglobin is 8.2, she is asymptomatic, but as of morning she had not been up much, only to transition from bed to recliner.
[2024-06-09 13:34] LABS: INR 2.47 (0.91-1.10); Prothrombin Time 27.9 Seconds
--- NOTE | 2024-06-09 14:34 | PC.PHA ---
Warfarin consult note: Reason for warfarin: A-FIB INR goal requested by the provider: 2-3 Most recent INR: [] (date and result) 2.47 (06/09/24) Usual home dose (if any): 5 MG MO,FR 7.5 MG ALL OTHER DAYS Today's dose ordered: 5 Vitamin K given: [] date, time, and dose given 5 MG ON 06/06 AND 5 MG ON 06/07 Comments: ORDERED NORMAL HOME DOSE TO CONTINUE, WILL MONITOR DAILY, INR MIGHT CONTINUE TO DECREASE DUE TO 2 DOSES OF VITAMIN K
[2024-06-09 15:00] VITALS: BP 125/60; PULSE 64; RESP 16; RESP 18; O2SAT 91
[2024-06-09] MEDS: WARFARIN 5 MG TABLET PO (18:07)
--- NOTE | 2024-06-09 18:50 | PC.NURSE ---
Nursing Care Hours: [id number] pt this shift calm and cooperative, alert and oriented. Pain to left hip increases with movement but tolerable at rest. Treated with oral pain meds. Pt refusing Tylenol because it doesn't do anything. Started warfarin after INR results received. Using sera steady with Ax2, tolerating well. Sheets left in place d/t pt not ambulating and having increased pain still with transfers.
[2024-06-09 19:00] VITALS: BP 146/67; PULSE 79; RESP 16; TEMP 37.3; O2SAT 93
--- NOTE | 2024-06-09 19:54 | P.CCN_ITS ---
Subjective Subjective Time Seen by Provider: 19:54 Date Seen: 06/09/24 Principal diagnosis: Status post left hip IM rodding Interval history: Patient requests discontinuing warfarin and switching to apixaban. She has AFib without valvular disease. Business Management Professor had recommended this previously but it was too expensive at the time. Per her request will switch from warfarin to Eliquis. Stop warfarin now and start Eliquis when INR goes below 2
[2024-06-09 23:00] VITALS: BP 136/65; PULSE 69; RESP 19; TEMP 36.9; O2SAT 90; O2SAT 91
[2024-06-10] MEDS: OXYCODONE 5 MG TABLET PO ×5 (02:23→20:47)
[2024-06-10 03:00] VITALS: BP 119/63; PULSE 71; RESP 16; TEMP 37.1; O2SAT 90
--- NOTE | 2024-06-10 05:50 | PC.NURSE ---
Shift note ([id number]: Patient pleasant, alert and oriented. Given PRN Oxycodone for left hip pain rated 5/10. Transferred with zhao steady and assist of two. Sats 90% on 1 LPM while sleeping. ?
[2024-06-10 06:38] LABS: Mean Corpuscular HGB Conc 32 gm/dL (32-36); Mean Corpuscular Hemoglobin 29 pg (26-34); Mean Corpuscular Volume 92 fL (80-100); Platelet Count* 127 K/uL (140-440); Red Blood Count* 2.73 m/uL (4.00-5.20); White Blood Count* 5.97 K/uL (4.50-11.00)
[2024-06-10 06:44] LABS: Hemoglobin* 7.9 gm/dL (12.0-16.0); Slide Review Reflex No
[2024-06-10 06:54] LABS: Potassium* 3.9 mmol/L (3.6-5.1); Sodium* 134 mmol/L (135-149)
[2024-06-10 06:57] LABS: Blood Urea Nitrogen* 14 mg/dL (7-30); Creatinine* 0.7 mg/dL (0.5-1.5); Estimated Glomerular Filt Rate 89 ml/min
[2024-06-10 07:18] LABS: INR 1.98 (0.91-1.10); Prothrombin Time 23.6 Seconds
--- NOTE | 2024-06-10 07:38 | PM.ORPN ---
Subjective Subjective Time Seen by Provider: 07:39 Date Seen: 06/10/24 Principal diagnosis: Status post left hip IM rodding Interval history: Herminia is comfortable in the recliner this morning. She states that transitioning is uncomfortable. She does feel better today than yesterday. She denies nausea, vomiting, dizziness, lightheadedness upon transitioning. Ortho Exam Narrative Exam Narrative: Alert and oriented x3. Patient is in no acute distress. Converses without labored breathing. Hearing is grossly intact. Ambulates with a walker. Examination of the left lower extremity shows the dressings are intact. Large edematous thigh on the left. Calves are soft and nontender. She is unable to straight leg raise. No erythema or warmth or sign of infection. CMS intact left lower extremity. She is able to dorsiflex and plantar flex ankle. Normal pedal pulses. Const Vital Signs, click to edit/add: Vital Signs - 24 hr 06/09/24 11:00 06/09/24 15:00 06/09/24 15:00 Temperature Pulse Rate [Right Pulse Oximeter] 61 64 Respiratory Rate 18 18 16 Blood Pressure [Left Arm] 140/80 H Pulse Oximetry 94 91 Oxygen Delivery Method Room Air Room Air Oxygen Flow Rate 06/09/24 15:00 06/09/24 19:00 06/09/24 23:00 Temperature 99.1 F Pulse Rate [Right Pulse Oximeter] 64 79 Respiratory Rate 18 16 19 Blood Pressure [Left Arm] 125/60 146/67 H Pulse Oximetry 91 93 90 Oxygen Delivery Method Room Air Room Air Room Air Oxygen Flow Rate 06/09/24 23:00 06/10/24 03:00 Temperature 98.5 F 98.8 F Pulse Rate [Right Pulse Oximeter] 69 71 Respiratory Rate 19 16 Blood Pressure [Left Arm] 136/65 119/63 Pulse Oximetry 91 90 Oxygen Delivery Method Room Air Nasal Cannula Oxygen Flow Rate 1 Assessment and Plan Assessment and plan (1) Status post hip surgery: Problem details: Left hip IM rodding 06/08/2024, Dr. Brooke Status: Acute Assessment and Plan: Herminia states she is going to [facility] on Wednesday. Orthopedic medications will be sent Wednesday When SNF location is definite. DVT prophylaxis upon discharge, Claudia is planned Remove dressing 1 week. Observe wound and phone Orthopedics with any questions or concerns Use Ice on operative hip unrestricted. Return to clinic 4- 6 weeks with surgeon Minimize narcotic use. Wean off and discontinue soon as possible. Weight-bearing as tolerated left lower extremity. PT and oT Asymptomatic with HGB of 7.9, no transfusion at this point
[2024-06-10 08:05] VITALS: BP 136/66; PULSE 72; RESP 18; TEMP 37.1; O2SAT 93
[2024-06-10] MEDS: SENNOSIDES 1 TAB TABLET 2 TAB PO ×2 (08:42→20:48)
[2024-06-10 11:38] VITALS: BP 138/67; PULSE 59; RESP 14; TEMP 37.1; O2SAT 93
--- NOTE | 2024-06-10 12:16 | PC.NURSE ---
pain managed with PRN meds per MAR, encouraged pt to try Tylenol after she stated it never helps me. Sudeep QUESADA'd @[id number], cath tip intact. Passing flatus, senna x1 tab per pt request.
[2024-06-10 15:00] VITALS: BP 130/70; PULSE 91; RESP 16; O2SAT 95
--- NOTE | 2024-06-10 16:18 | PM.IMPN1 ---
Assessment and Plan Assessment and plan (1) Status post hip surgery: Problem comment: Left hip IM rodding 06/08/2024, Dr. Brooke. Adequate pain control. Making progress with therapy. Status: Acute (2) Asymptomatic bacteriuria: Problem comment: Patient denies burning sensation on urination, denies frequency or lower abdominal pain Pansensitive E coli. Received elijah op antibiotics but no further treatment for this. Status: Acute (3) Urinary retention: Problem comment: No history of prior urinary retention Likely secondary to trauma and opioids for treating her pain Sheets cath inserted 06/07 for urinary retention. Sheets catheter removed on June 10 with successful trial of voiding Status: Acute (4) Chronic anticoagulation: Problem comment: For atrial fibrillation, previously on warfarin now switching to Eliquis Status: Chronic Plan Continue in hospital for evaluation and management of postoperative complications including bleeding causing blood loss anemia, pain control, therapy, urinary retention. [facility] for ongoing outpatient rehab Total Time Spent Total Time Spent: Total time spent today is 40 minutes in coordination of care and discussing with patient and other providers ongoing management Subjective Date Seen: 06/10/24 Interval history: Herminia Alberto is a 78 year old female with a h/o afib on warfarin, CKD3, hyperlipidemia, dilated cardiomyopathy, hypertension who was in her usual state of health, just coming home from a cruise when she tripped and fell. She got her suitcase out of the car and was pulling across the street when the wheel got stuck on something in the road and she tripped and fell trying to get it unstuck. She denies hitting her head, but did hit her left elbow and this is swelling. She could not get up after the fall. Several neighbors and the [facility] delivery driver/customer service saw what happened and immediately to help her. She is on warfarin for AFib and had an INR drawn this morning which was 6.8. She was found to have a 2 part intertrochanteric fracture on the left. She was taken to the OR on June [address] Brooke where she underwent ORIF. There were no operative complications. Postoperatively she has done well. She did develop urinary retention and had a Sheets catheter placed. Today that was removed and trial of voiding is so far successful. She has had anemia. This is secondary to blood loss from her hip fracture. Hemoglobin has been declining from 12.8 on admission to 9.4 prior to surgery to 8.2 postop day 1 and 7.9 today, postop day 2. She is tolerating this well. She is anticoagulated for atrial fibrillation. She has been on longstanding warfarin. Conversation about risks and benefits and costs letter to conclude that she would like to switch to Eliquis. Her INR has been hard to control. Will start Eliquis tomorrow as INR drifts down. Exam Narrative: Exam Narrative: She is alert and appears in no distress. Breathing is unlabored. She has moderate bruising and swelling of the left thigh. No erythema. Const: Vital Signs, click to edit/add: Vital Signs - 24 hr 06/09/24 19:00 06/09/24 23:00 06/09/24 23:00 Temperature 99.1 F 98.5 F Pulse Rate [Right Pulse Oximeter] 79 69 Respiratory Rate 16 19 19 Blood Pressure [Le ft Arm] 146/67 H 136/65 Blood Pressure [Ri ght Arm] Pulse Oximetry 93 90 91 Oxygen Delivery Me thod Room Air Room Air Room Air Oxygen Flow Rate 06/10/24 03:00 06/10/24 08:05 06/10/24 08:05 Temperature 98.8 F 98.7 F Pulse Rate [Right Pulse Oximeter] 71 72 Respiratory Rate 16 18 18 Blood Pressure [Le ft Arm] 119/63 136/66 Blood Pressure [Ri ght Arm] Pulse Oximetry 90 93 93 Oxygen Delivery Me thod Nasal Cannula Room Air Room Air Oxygen Flow Rate 1 06/10/24 11:38 Temperature 98.7 F Pulse Rate [Right Pulse Oximeter] 59 L Respiratory Rate 14 Blood Pressure [Le ft Arm] Blood Pressure [Ri ght Arm] 138/67 Pulse Oximetry 93 Oxygen Delivery Me thod Room Air Oxygen Flow Rate Documenting provider has reviewed patient's vital signs: yes Labs Labs: Laboratory Results - last 24 hr 06/10/24 05:46 WBC 5.97 RBC 2.73 L Hgb 7.9 L* Hct 25.0 L MCV 92 MCH 29 MCHC 32 Plt Count 127 L INR 1.98 H Sodium 134 L Potassium 3.9 BUN 14 Creatinine 0.7 Estimated Creat Clear 44.10 Estimated GFR 89
--- NOTE | 2024-06-10 19:49 | PC.NURSE ---
Nursing Care Hours: [id number] Pt this shift calm and cooperative, awake and oriented. Pt feeling tired and face pale. HR in 80-90's which pt states is high for her and states her baseline resting HR is high forties or low fifties. BP stable. Director Of Corporate Responsibility discussed signs of low hgb and instructed pt to report increase symptoms of feeling lightheaded or dizzy, increased fatigue or chills. Bandages CDI, swelling to upper thigh but soft and minimal bruising. Pt had no BM but denies discomfort.
[2024-06-10 20:04] VITALS: BP 135/67; PULSE 79; RESP 18; O2SAT 97
[2024-06-10 22:04] VITALS: BP 147/60; PULSE 70; RESP 16; TEMP 36.9; O2SAT 93
[2024-06-11 03:00] VITALS: BP 150/59; PULSE 56; RESP 18; TEMP 36.5; O2SAT 97
[2024-06-11] MEDS: OXYCODONE 5 MG TABLET PO ×4 (03:59→20:55)
--- NOTE | 2024-06-11 04:36 | PC.NURSE ---
Shift note ([id number]: Patient pleasant, alert and oriented. Given PRN Oxycodone for left hip pain rated 5-6/10. Dressings to left hip C,D&I. Pivot transferred to commode with walker, gait belt and assist of two. Needed lots of time and encouragement to move. Sats 97% on RA while sleeping. ?
[2024-06-11 07:00] VITALS: BP 148/74; PULSE 63; PULSE 69; RESP 16; O2SAT 98; O2SAT 99
[2024-06-11 07:00] LABS: Hematocrit* 23.9 % (33.0-51.0); Mean Corpuscular HGB Conc 32 gm/dL (32-36); Mean Corpuscular Hemoglobin 29 pg (26-34); Mean Corpuscular Volume 91 fL (80-100); Platelet Count* 155 K/uL (140-440); Red Blood Count* 2.64 m/uL (4.00-5.20); White Blood Count* 5.74 K/uL (4.50-11.00)
[2024-06-11 07:13] LABS: Potassium* 3.8 mmol/L (3.6-5.1); Sodium* 135 mmol/L (135-149)
[2024-06-11 07:16] LABS: Blood Urea Nitrogen* 16 mg/dL (7-30); Creatinine* 0.8 mg/dL (0.5-1.5); Estimated Glomerular Filt Rate 76 ml/min
[2024-06-11 07:30] LABS: Hemoglobin* 7.7 gm/dL (12.0-16.0)
[2024-06-11 07:31] LABS: Slide Review Reflex No
[2024-06-11] MEDS: APIXABAN 5 MG TABLET PO ×2 (09:06→20:55)
[2024-06-11] MEDS: SENNOSIDES 1 TAB TABLET 2 TAB PO ×2 (09:06→20:55)
[2024-06-11 11:00] VITALS: BP 141/80; PULSE 66; RESP 18; O2SAT 95
--- NOTE | 2024-06-11 12:54 | P.IMPN_ITS ---
Assessment and Plan Assessment and plan (1) Status post hip surgery: Problem comment: Left hip IM rodding 06/08/2024, Dr. Brooke. Adequate pain control. Making progress with therapy. [facility]charge to [facility] for [facility]hab probably tomorrow Status: Acute (2) Asymptomatic bacteriuria: Problem comment: Patient denies burning sensation on urination, denies frequency or lower abdominal pain Pansensitive E coli. Received elijah op antibiotics but no further treatment for this. Status: Acute (3) Urinary retention: Problem comment: No history of prior urinary retention Likely secondary to trauma and opioids for treating her pain Sheets cath inserted 06/07 for urinary retention. Sheets catheter removed on June 10 with successful trial of voiding Status: Acute (4) Chronic anticoagulation: Problem comment: For atrial fibrillation, previously on warfarin now switching to Eliquis. Status: Chronic (5) Acute blood loss anemia: Problem comment: Blood loss anemia due to left hip fracture well on warfarin. Pending iron studies if needing iron therapy. Status: Acute Plan Continue in-hospital for monitoring of anemia, therapy pending discharge plan to [facility] facility for ongoing rehab. Total Time Spent Total Time Spent: Total time spent today is 35 minutes in coordination of care and discussing with patient and other providers progress with therapy, management of anemia and disposition plans. Subjective Date Seen: 06/11/24 Interval history: Herminia Alberto is a 78 year old female with a h/o afib on warfarin, CKD3, hyperlipidemia, dilated cardiomyopathy, hypertension who was in her usual state of health, just coming home from a cruise when she tripped and fell. She got her suitcase out of the car and was pulling across the street when the wheel got stuck on something in the road and she tripped and fell trying to get it unstuc k. She denies hitting her head, but did hit her left elbow and this is swelling. She could not get up after the fall. Several neighbors and the [facility] motorcycle delivery driver saw what happened and immediately to help her. She is on warfarin for AFib and had an INR drawn this morning which was 6.8. She was found to have a 2 part intertrochanteric fracture on the left. She was taken to the OR on June [address] Brooke where she underwent ORIF. There were no operative complications. Postoperatively she has done well. She did develop urinary retention and had a Sheets catheter placed. Today that was removed and trial of voiding is so far successful. She has had anemia. This is secondary to blood loss from her hip fracture. Hemoglobin has been declining from 12.8 on admission to 9.4 prior to surgery to 8.2 postop day 1 and 7.9 today, postop day 2. She is tolerating this well. She is anticoagulated for atrial fibrillation. She has been on longstanding warfarin. Conversation about risks and benefits and costs letter to conclude that she would like to switch to Eliquis. Her INR has been hard to control. Will start Eliquis tomorrow as INR drifts down. June 11: Patient reports generally doing well. She thinks her pain is getting better. She is making some progress with therapy. They have been using the Beronica Stedy. Now voiding without a catheter. No bowel movement yet. Exam Narrative: Exam Narrative: She is alert appears in no distress. Breathing is unlabored. Vital signs normal. Abdomen is soft without tenderness. Left hip with moderate swelling and bruising consistent with known hip fracture and on warfarin. Distally she has intact pulses and sensation. Const: Vital Signs, click to edit/add: Vital Signs - 24 hr 06/10/24 15:00 06/10/24 15:00 06/10/24 15:00 Temperature Pulse Rate [Right Pulse Oximeter] 91 91 Respiratory Rate 16 16 16 Blood Pressure [Le ft Arm] Blood Pressure [Ri ght Arm] 130/70 Pulse Oximetry 95 95 Oxygen Delivery Me thod Room Air Room Air 06/10/24 20:04 06/10/24 22:04 06/10/24 22:04 Temperature 98.5 F Pulse Rate [Right Pulse Oximeter] 79 70 Respiratory Rate 18 16 16 Blood Pressure [Le ft Arm] Blood Pressure [Ri ght Arm] 135/67 147/60 H Pulse Oximetry 97 93 93 Oxygen Delivery Me thod Room Air Nasal Cannula Room Air 06/11/24 03:00 06/11/24 07:00 06/11/24 07:00 Temperature 97.7 F Pulse Rate [Right Pulse Oximeter] 56 L 69 Respiratory Rate 18 16 16 Blood Pressure [Le ft Arm] Blood Pressure [Ri ght Arm] 150/59 H Pulse Oximetry 97 98 Oxygen Delivery Me thod Room Air Room Air 06/11/24 07:00 06/11/24 11:00 Temperature Pulse Rate [Right Pulse Oximeter] 63 66 Respiratory Rate 16 18 Blood Pressure [Le ft Arm] 141/80 H Blood Pressure [Ri ght Arm] 148/74 H Pulse Oximetry 99 95 Oxygen Delivery Me thod Room Air Room Air Documenting provider has reviewed patient's vital signs: yes Labs Labs: Laboratory Results - last 24 hr 06/11/24 06/11/24 05:41 09:16 WBC 5.74 RBC 2.64 L Hgb 7.7 L* Hct 23.9 L MCV 91 MCH 29 MCHC 32 Plt Count 155 Sodium 135 Potassium 3.8 BUN 16 Creatinine 0.8 Estimated Creat Clear 44.10 Estimated GFR 76 Iron 40 Lab Acknowledgement Test Added
[2024-06-11 14:38] LABS: Iron* 40 ug/dL (37-170); Total Iron Binding Capacity 235 ug/dL (265-497)
[2024-06-11 14:39] LABS: Percent Iron Saturation 18 % (20-50)
[2024-06-11 15:00] VITALS: BP 149/70; PULSE 62; PULSE 63; RESP 16; O2SAT 96
[2024-06-11] MEDS: polyethylene glycoL 3350 17 GM PACK PO (15:51)
[2024-06-11 19:00] VITALS: BP 141/74; PULSE 71; RESP 17; TEMP 36.8; O2SAT 98
--- NOTE | 2024-06-11 19:45 | PC.NURSE ---
Nursing Care Hours: [id number] Pt this shift calm and cooperative, awake and oriented. Pt fatigued this shift. Moving slowly with transfers. VSS. bandage CDI. pedal pulses present. Pain treated per eMAR. Tolerating regular diet.
[2024-06-11 23:00] VITALS: BP 152/68; PULSE 66; RESP 16; TEMP 37.5; O2SAT 95; O2SAT 96
[2024-06-12 02:06] VITALS: BP 158/66; PULSE 64; RESP 16; TEMP 36.9; O2SAT 94
[2024-06-12] MEDS: OXYCODONE 5 MG TABLET PO ×3 (02:10→12:02)
--- NOTE | 2024-06-12 06:42 | PC.NURSE ---
Shift note ([id number]: Patient pleasant, alert and oriented. Given PRN Oxycodone for left hip pain rated 2-4/10.?Dressings C,D&I. Ambulated to bathroom with walker, gait belt and assist of two. Given PRN oxycodone prior to ambulating. Moving extremely?slowly. Needed extensive encouragement and cueing.
[2024-06-12 07:00] VITALS: BP 153/82; PULSE 79; RESP 16; RESP 18; TEMP 36.8; O2SAT 94; O2SAT 95
[2024-06-12 07:58] LABS: Hemoglobin* 8.6 gm/dL (12.0-16.0)
--- NOTE | 2024-06-12 08:16 | P.ORPN_ITS ---
Subjective Subjective Time Seen by Provider: 07:40 Date Seen: 06/12/24 Principal diagnosis: Status post left hip IM rodding Interval history: Herminia is comfortable this morning. She has ambulated without dizziness or lightheadedness. She denies nausea vomiting. She plans to discharge to care home facility, possibly today. Ortho Exam Narrative Exam Narrative: Alert and oriented x3. Patient is in no acute distress. Converses without labored breathing. Hearing is grossly intact. Ambulates with a walker. Herminia has ambulated to the restroom and back. Examination of the left lower extremity shows edematous thigh. CMS intact left lower extremity. Const Vital Signs, click to edit/add: Vital Signs - 24 hr 06/11/24 11:00 06/11/24 15:00 06/11/24 15:00 Temperature Pulse Rate [Right Pulse Oximeter] 66 62 Respiratory Rate 18 16 16 Blood Pressure [Left Arm] 141/80 H Blood Pressure [Right Arm] Pulse Oximetry 95 96 Oxygen Delivery Method Room Air Room Air 06/11/24 15:00 06/11/24 19:00 06/11/24 23:00 Temperature 98.3 F Pulse Rate [Right Pulse Oximeter] 63 71 Respiratory Rate 16 17 16 Blood Pressure [Left Arm] 141/74 H Blood Pressure [Right Arm] 149/70 H Pulse Oximetry 96 98 95 Oxygen Delivery Method Room Air Room Air Room Air 06/11/24 23:00 06/12/24 02:06 Temperature 99.5 F 98.4 F Pulse Rate [Right Pulse Oximeter] 66 64 Respiratory Rate 16 16 Blood Pressure [Left Arm] Blood Pressure [Right Arm] 152/68 H 158/66 H Pulse Oximetry 96 94 Oxygen Delivery Method Room Air Room Air Assessment and Plan Assessment and plan (1) Status post hip surgery: Problem details: Left hip IM rodding 06/08/2024, Dr. Brooke. Adequate pain control. Making progress with therapy. Discharge to care home facility for rehab probably tomorrow Status: Acute Assessment and Plan: Plan for discharge is likely today, and when they meets discharge criteria. DVT prophylaxis upon discharge Eliquis Remove dressing 10 days. Observe wound and phone Orthopedics with any questions or concerns Use Ice on operative hip unrestricted. Return to clinic in 4-6 weeks with surgeon Minimize narcotic use. Wean off and discontinue as soon as possible. Weightbear as tolerated left lower extremity OT and PT daily at care home facility Will send orthopedic medications when care home facility is definite. She is hopeful to discharge to [facility].
[2024-06-12] MEDS: SENNOSIDES 1 TAB TABLET 2 TAB PO (08:18)
[2024-06-12] MEDS: APIXABAN 5 MG TABLET PO (08:20)
[2024-06-12 11:00] VITALS: BP 158/74; PULSE 74; RESP 16; O2SAT 94
--- NOTE | 2024-06-12 11:02 | P.DS_ITS ---
DS: Providers Provider Date Seen: 06/12/24 Date of admission: 06/06/24 18:48 Primary care physician: Anna Iniguez, LAYAWAY CLERK, INSPECTOR W[employer], DNP Admitting Clinician: Carly Coronado MD Attending Physician on discharge: Ger Velasquez MD Date of Discharge: 06/12/24 DS: Diagnosis Discharge Diagnosis (1) Closed fracture of left hip: Status: Acute Problem details: Due to accidental fall. Two part left intertrochanteric femur fracture. Repaired by Dr. Brooke. (2) Status post hip surgery: Status: Acute Problem details: Left hip IM rodding 06/08/2024, Dr. Brooke. Adequate pain control. Making progress with therapy. Discharge to group home facility for rehab. (3) Acute blood loss anemia: Status: Acute Problem details: Blood loss anemia due to left hip fracture well on warfarin. Iron studies also show iron deficiency anemia. Consider further outpatient evaluation of this. (4) Asymptomatic bacteriuria: Status: Acute Problem details: Patient denies burning sensation on urination, denies frequency or lower abdominal pain Pansensitive E coli. Received elijah op antibiotics but no further treatment for this. (5) Urinary retention: Status: Acute Problem details: No history of prior urinary retention Likely secondary to trauma and opioids for treating her pain Sheets cath inserted 06/07 for urinary retention. Sheets catheter removed on June 10 with successful trial of voiding (6) Chronic anticoagulation: Status: Chronic Problem details: For atrial fibrillation, previously on warfarin now switching to Eliquis. (7) Osteoporosis: Status: Acute Problem details: Fragility fracture of left hip is an indication of osteoporosis. Also previous humeral fracture. Recommend outpatient evaluation and treatment. DS: Summary Hospital Course Hospital Course: Herminia Alberto is a 78 year old female with a h/o afib on warfarin, CKD3, hyperlipidemia, dilated cardiomyopathy, hypertension who was in her usual state of health, just coming home from a cruise when she tripped and fell. She got her suitcase out of the car and was pulling across the street when the wheel got stuck on something in the road and she tripped and fell trying to get it unstuck. She denies hitting her head, but did hit her left elbow and this is swelling. She could not get up after the fall. Several neighbors and the [facility] route delivery service driver saw what happened and immediately to help her. She is on warfarin for AFib and had an INR drawn this morning which was 6.8. She was found to have a 2 part intertrochanteric fracture on the left. She was taken to the OR on June [address] Brooke where she underwent ORIF. There were no operative complications. Postoperatively she has done well. She did develop urinary retention and had a Sheets catheter placed. Today that was removed and trial of voiding is so far successful. She has had anemia. This is secondary to blood loss from her hip fracture. Hemoglobin has been declining from 12.8 on admission to 9.4 prior to surgery to 8.2 postop day 1 and 7.9 today, postop day 2. She is tolerating this well. She is anticoagulated for atrial fibrillation. She has been on longstanding warfarin. Conversation about risks and benefits and costs letter to conclude that she would like to switch to Eliquis. Her INR has been hard to control. Switch to Eliquis prior to discharge. She made good progress with physical therapy. Good pain control. Bowels are now working. Urination has improved. Status at Discharge Functional status at discharge: uses cane/walker Overall status at discharge: patient is progressing back to baseline Time Spent with Patient Time attestation: Total time spent providing and/or coordinating discharge services:40 minutes Time spent: Greater than 30 minutes Exam Narrative: Exam Narrative: She is alert and appears in no distress. Mood and affect are bright. Breathing is unlabored. Lower extremities notable for moderate bruising and swelling of the left thigh and hip. Intact pedal pulses. Intact motion and sensation distally. Const: Vital Signs, click to edit/add: Vital Signs - 24 hr 06/11/24 15:00 06/11/24 15:00 06/11/24 15:00 Temperature Pulse Rate [Right Pulse Oximeter] 62 63 Respiratory Rate 16 16 16 Blood Pressure [Le ft Arm] Blood Pressure [Ri ght Arm] 149/70 H Pulse Oximetry 96 96 Oxygen Delivery Me thod Room Air Room Air 06/11/24 19:00 06/11/24 23:00 06/11/24 23:00 Temperature 98.3 F 99.5 F Pulse Rate [Right Pulse Oximeter] 71 66 Respiratory Rate 17 16 16 Blood Pressure [Le ft Arm] 141/74 H Blood Pressure [Ri ght Arm] 152/68 H Pulse Oximetry 98 95 96 Oxygen Delivery Me thod Room Air Room Air Room Air 06/12/24 02:06 06/12/24 07:00 06/12/24 07:00 Temperature 98.4 F 98.2 F Pulse Rate [Right Pulse Oximeter] 64 79 Respiratory Rate 16 16 18 Blood Pressure [Le ft Arm] 153/82 H Blood Pressure [Ri ght Arm] 158/66 H Pulse Oximetry 94 94 95 Oxygen Delivery Me thod Room Air Room Air Room Air 06/12/24 07:00 Temperature Pulse Rate [Right Pulse Oximeter] 79 Respiratory Rate 18 Blood Pressure [Le ft Arm] Blood Pressure [Ri ght Arm] Pulse Oximetry Oxygen Delivery Me thod Documenting provider has reviewed patient's vital signs: yes DS: Data Data Completed and Pending Labs on day of discharge: Labs from last 24 hours 06/12/24 06/11/24 06/11/24 07:51 12:54 05:41 Hgb 8.6 L Iron 40 TIBC 235 L % Saturation 18 L Lab Acknowledgement Test Added Discharge Plan Discharge Disposition: [facility] Date of Admission: 06/06/24 18:48 Attending Provider on Discharge: Daniel Velasquez Consulting Providers: Devin Mott Primary Care Provider: Anna Iniguez Condition: Stable Discharge Medications: New ferrous sulfate 325 mg (65 mg iron) tablet 325 mg PO DAILY Qty: 90 0RF Eliquis 5 mg tablet 5 mg PO BID Qty: 60 2RF oxycodone 5 mg tablet 2.5 mg PO Q4H PRN (Reason: pain) Qty: 30 0RF sennosides [Senna Lax] 8.6 mg tablet 17.2 mg PO BID Qty: 100 0RF polyethylene glycol 3350 [Miralax] 17 gram/dose powder 17 g PO DAILY Qty: 510 0RF acetaminophen 325 mg capsule 650 mg PO QID PRNQty: 100 0RF ferrous sulfate 325 mg (65 mg iron) tablet 325 mg PO DAILY Qty: 30 0RF Continued sumatriptan succinate 50 mg tablet 50 mg PO Q2H PRN atorvastatin 10 mg tablet 10 mg PO DAILY furosemide 20 mg tablet 20 mg PO DAILY Patient Comments: PLUS AN ADDITIONAL DOSE PRN lisinopril 40 mg tablet 40 mg PO DAILY carvedilol 6.25 mg Tablet 6.25 mg PO BID Qty: 15 0RF nifedipine 30 mg tablet extended release 30 mg PO HS multivitamin [Daily Multi-Vitamin] Tablet 1 tab PO DAILY cranberry 500 mg capsule 500 mg PO HS ascorbic acid (vitamin C) [Acerola C] 500 mg tablet,chewable 500 mg PO DAILY cyanocobalamin (vitamin B-12) 1,000 mcg tablet 1,000 mcg PO HS cholecalciferol (vitamin D3) 25 mcg (1,000 unit) capsule 25 mcg PO DAILY Discontinued cyclobenzaprine 5 mg tablet 5 mg PO HS PRN warfarin 5 mg tablet 5 - 7.5 mg PO HS Rx Instructions: 5 MG MON/FRI, 7.5 MG ALL OTHER DAYS Discharge Orders: Discharge Order (Routine); Ordered 06/12/24 Ordered By: Daniel Velasquez Activity Level: Up with assist and Use Walker Activity Detail: Keep dressing on for Ten days. change if needed. Dressing is waterproof. May shower. Attend physical therapy and occupational therapy at group home facility daily. Ice and elevate operative extremity without restriction. Swelling and bruising will worsen within the first week. When swelling occurs, elevate the extremity above heart level several times a day and gently massage/pull soft tissue swelling toward hip. This allows gravity to assist in eliminating the swelling/edema. Wear compression stockings/ryan bandages as needed for swelling. If you drive, do not drive while taking narcotic pain medication. Do not drink alcohol while taking narcotic pain medication. May drive when safe to do so and have full function of the extremities, this may take 6 weeks or more. Notify Orthopedics with any questions or concerns. ([phone]). Weightbear as tolerated left lower ext remity Activity Restrictions: Please make appt with Dr Brooke in 4-6 weeks at [facility]. Discharge Diet: Regular Follow Up Appointments: Anna Iniguez, LAYAWAY CLERK, INSPECTOR [employer], DNP [Primary Care Provider] - Ray Brooke MD [Staff Physician] - 07/17/24 10:00 am ([facility] for post-op follow up appointment. ) Forms: [facility] Info Instructions Admit to: SNF Discharge Potential: Good Length of Stay: <30 days Can use facility standing orders?: Yes Code Status: DNI Rehab Potential: Good Therapy: Physical Therapy and Occupational Therapy Therapy Orders: Evaluate and Treat Therapy Orders Additional Information: weightbear as tolerated left lower extremity. Oxygen: No Lab Orders: CBC, basic metabolic panel in one week
[2024-06-12] MEDS: ACETAMINOPHEN 325 MG TABLET 650 MG PO (12:02)
--- NOTE | 2024-06-12 13:13 | PC.SOCIAL ---
Addendum entered by DELORIS Rodriguez 06/12/24 13:20: Discharge planning: Pt received another copy of The Important Message from Medicare form from this worker and was explained the discharge appeal process. Pt had no plans to appeal her discharge and is happy to go to [facility]. Social work to follow-up as needed. Original Note: Discharge planning: Pt has been accepted to [facility] for short-term rehab today. Pt's daughter will pick her up at 1pm. Discharge orders were secure emailed to Deanna at [facility]. Pre-admission screening was also completed and secure emailed to Deanna at [facility]. [id number]. Social work to follow-up as needed.
--- NOTE | 2024-06-12 15:48 | PC.NURSE ---
Discharge-- Pleasant, cooperative, alert and oriented pt was discharged to [facility] via family transport with wheelchair at approximately 1315 this afternoon. VSS, though mildly hypertensive, and pt is afebrile. SPO2 maintained >90% on RA. Pain appears well managed with Oxycodone and tylenol. Dressing to left hip is C/D/I and CMS WNL. LS CTA. She denied nausea, tolerated a regular diet without difficulty and had a large BM this morning. She was up to the BR with assist of 1, belt and walker and tolerated it fairly well though she does move slowly. Nurse to nurse report was given to Chanelle at [facility] and all questions were answered.
== END 2024-06-12 13:35 | DRG 481 ==
LOC: ED 18:03 → MEDSURG 18:15
PROVIDERS: Family Medicine; Orthopaedic Surgery; Student in an Organized Health Care Education/Training Program; Admitting Provider Family Medicine; Emergency Provider Student in an Organized Health Care Education/Training Program; PCP Nurse Practitioner; Visit Provider Family Medicine
PROC: 0QS706Z Reposition Left Upper Femur with Intramedullary Internal Fixation Device, Open Approach (ICD-10-PCS; CPT 27245; principal; 2024-06-08 09:00)
DX: S72.142A Displaced intertrochanteric fracture of left femur, initial encounter for closed fracture (principal); D62 Acute posthemorrhagic anemia; I13.0 Hypertensive heart and chronic kidney disease with heart failure and stage 1 through stage 4 chronic kidney disease, or unspecified chronic kidney disease; I42.0 Dilated cardiomyopathy; I48.20 Chronic atrial fibrillation, unspecified; R00.1 Bradycardia, unspecified; I48.0 Paroxysmal atrial fibrillation; I50.9 Heart failure, unspecified; N18.30 Chronic kidney disease, stage 3 unspecified; Z79.01 Long term (current) use of anticoagulants; T44.7X5A Adverse effect of beta-adrenoreceptor antagonists, initial encounter; R33.8 Other retention of urine; R79.89 Other specified abnormal findings of blood chemistry; R82.71 Bacteriuria; B96.20 Unspecified Escherichia coli [E. coli] as the cause of diseases classified elsewhere; W01.0XXA Fall on same level from slipping, tripping and stumbling without subsequent striking against object, initial encounter; Y92.414 Local residential or business street as the place of occurrence of the external cause; Z91.81 History of falling; M54.16 Radiculopathy, lumbar region; M81.0 Age-related osteoporosis without current pathological fracture; E78.5 Hyperlipidemia, unspecified
CPT/HCPCS: 01210; 36415; 51702; 51798; 71045; 73060; 73080; 73502; 76000; 80048; 81001; 81003; 82565; 83540; 83550; 84132; 84295; 84520; 85018; 85025; 85027; 85610; 86850; 86900; 86901; 87086; 93005; 97110; 97116; 97161; 97165; 97530; 97535; 99100; 99285; A9270; C1713; J0690; J1100; J1171; J2405; J2704; J2710; J3010; J7030; J7120

== ENCOUNTER 2024-06-16 17:16 | Outpatient (CLI) | payer SELFPAY ==
[2024-06-16 17:32] LABS: Appearance Urine Clear (Clear); Bilirubin Urine Negative (Negative); Blood Urine Trace-intact (Negative); Color Urine Yellow (Yellow); Glucose Urine Negative (Negative); Ketones Urine Negative (Negative); Leukocyte Esterase Urine 1+ (Negative); Nitrite Urine Positive (Negative); Protein Urine Negative (Negative); Specific Gravity Urine 1.015 (1.000-1.030); Urobilinogen Urine 0.2 (0.2-1.0)
[2024-06-16 18:03] LABS: Bacteria Urine Many; RBC Urine 0-2 (0-2); Squamous Epithelial Cell Urine Few (None-Few)
== END 2024-06-16 17:17 | disposition home or self-care (01) ==
LOC: NPINS 17:21
PROVIDERS: PCP Nurse Practitioner; Visit Provider Nurse Practitioner Gerontology
DX: R39.15 Urgency of urination (principal); R30.0 Dysuria
CPT/HCPCS: 81001; 87086

== ENCOUNTER 2024-12-11 13:40 | Outpatient (CLI) | payer MEDICARE, SELFPAY | END 2024-12-11 13:41 | disposition home or self-care (01) | LOC: NFLDREF 13:40 | PROVIDERS: PCP Nurse Practitioner; Visit Provider Family Medicine | DX: Z01.818 Encounter for other preprocedural examination (principal) | CPT/HCPCS: 80048 ==